=== PATIENT | female | born 1950 | race Caucasian/White ===

== ENCOUNTER → 2017-10-26 13:24 | Outpatient (CLI) | payer MEDICARE, OTHER, SELFPAY ==
[2017-10-26 15:45] LABS: Absolute Lymphocyte Count 2.33 X10^3/ul (0.83-4.51); Absolute Neutrophil Count 5.1 X10^3/uL (2.0-7.7); Basophil# 0.05 X10^3/uL; Basophil% 0.6 % (0-1); Eosinophil# 0.13 X10^3/uL; Eosinophils% 1.6 % (0-5); Hematocrit 37.1 % (37-47); Hemoglobin 11.7 g/dl (12.0-15.0); Lymphocyte # 2.33 X10^3/ul (4.0); Lymphocyte % 28.5 % (19-41); Mean Corp Hgb Conc 31.5 g/gl (32-36); Mean Corpuscular Hgb 30.5 pg (27.0-32.0); Mean Corpuscular Volume 96.9 fL (81-99); Mean Platelet Vol. 9.3 fl (6.2-12.0); Monocyte% 6.1 % (0-10); Neutrophil % 62.5 % (47-70); Platelet Count 227 K/mm3 (150-450); RBC Distribution Width CV 14.7 % (11.6-14.6); RBC Distribution Width SD 51.9 fl (35.1-43.9); Red Blood Count 3.83 M/mm3 (4.2-5.4); White Blood Count 8.2 K/mm3 (4.4-11.0)
[2017-10-26 15:47] LABS: Scan Indicated on CBC? Y/N NO
[2017-10-26 16:25] LABS: ALB/GLOB Ratio 0.8 RATIO (0.9-2.4); AST(SGOT) 42 U/L (15-37); Alanine Aminotransfer ALT/SGPT 47 U/L (13-56); Albumin, Serum 3.3 g/dL (3.2-5.0); Alkaline Phosphatase 59 U/L (45-117); Anion Gap 9 (5-15); BUN 20 mg/dL (7-18); BUN/Creat Ratio 27.8 RATIO (10-20); Calcium,Total 9.3 mg/dL (8.5-10.1); Chloride 102 mmol/L (98-107); Creatinine, Serum 0.72 mg/dL (0.55-1.02); EST Glomerular Filtration Rate 86 mL/min (>60); Est Glom Filt Rate - Afr Amer 104 mL/min (>60); Glucose 157 mg/dL (70-110); Potassium 3.8 mmol/L (3.5-5.1); Protein, Total 7.3 g/dL (6.4-8.2); Sodium Level 139 mmol/L (136-145); Thyroid Stim Hormone (TSH) 1.83 uIU/mL (0.358-3.74)
[2017-10-27 07:47] LABS: Hep C Antibodies 0.1 s/co ratio (0.0-0.9)
[2017-10-27 10:05] LABS: Vitamin D,25 Hydroxy 25.6 ng/mL (19.95-100.01)
== END ==
PROVIDERS: Family Provider Family Medicine Geriatric Medicine; PCP Family Medicine Geriatric Medicine; Visit Provider Family Medicine Geriatric Medicine
DX: E11.9 Type 2 diabetes mellitus without complications (principal); E55.9 Vitamin D deficiency, unspecified; I10 Essential (primary) hypertension; Z13.89 Encounter for screening for other disorder
CPT/HCPCS: 36415; 80053; 82306; 84443; 85027; 86803

== ENCOUNTER → 2017-12-30 15:38 | Outpatient (CLI) | payer MEDICARE, OTHER, SELFPAY | PROVIDERS: Family Provider Family Medicine Geriatric Medicine; PCP Family Medicine Geriatric Medicine; Visit Provider Family Medicine Geriatric Medicine | DX: R68.83 Chills (without fever) (principal) | CPT/HCPCS: 87633 ==

== ENCOUNTER → 2018-04-05 14:02 | Outpatient (CLI) | payer MEDICARE, OTHER, SELFPAY ==
[2018-04-05 17:40] LABS: ALB/GLOB Ratio 0.9 RATIO (0.9-2.4); AST(SGOT) 32 U/L (15-37); Alanine Aminotransfer ALT/SGPT 33 U/L (13-56); Albumin, Serum 3.4 g/dL (3.2-5.0); Alkaline Phosphatase 58 U/L (45-117); Anion Gap 12 (5-15); BUN 20 mg/dL (7-18); BUN/Creat Ratio 24.7 RATIO (10-20); Calcium,Total 9.4 mg/dL (8.5-10.1); Chloride 108 mmol/L (98-107); Creatinine, Serum 0.81 mg/dL (0.55-1.02); EST Glomerular Filtration Rate 75 mL/min (>60); Est Glom Filt Rate - Afr Amer 90 mL/min (>60); Globulin 3.8 g/dL (2.2-4.2); Glucose 100 mg/dL (74-106); Potassium 4.6 mmol/L (3.5-5.1); Protein, Total 7.2 g/dL (6.4-8.2); Sodium Level 146 mmol/L (136-145); Thyroid Stim Hormone (TSH) 1.35 uIU/mL (0.358-3.74)
[2018-04-05 18:41] LABS: Absolute Neutrophil Count 4.9 X10^3/uL (2.0-7.7); Basophil# 0.03 X10^3/uL; Basophil% 0.4 % (0-1); Eosinophil# 0.12 X10^3/uL; Eosinophils% 1.5 % (0-5); Hemoglobin 11.8 g/dl (12.0-15.0); Lymphocyte % 28.5 % (19-41); Mean Corp Hgb Conc 31.9 g/gl (32-36); Mean Corpuscular Hgb 31.4 pg (27.0-32.0); Mean Corpuscular Volume 98.4 fL (81-99); Mean Platelet Vol. 10.2 fl (6.2-12.0); Monocyte# 0.72 X10^3/uL; Monocyte% 8.9 % (0-10); Neutrophil # 4.86 X10^3/uL (2.7-7.7); Neutrophil % 60.2 % (47-70); Platelet Count 241 K/mm3 (150-450); RBC Distribution Width CV 14.5 % (11.6-14.6); RBC Distribution Width SD 50.5 fl (35.1-43.9); Red Blood Count 3.76 M/mm3 (4.2-5.4); White Blood Count 8.1 K/mm3 (4.4-11.0)
[2018-04-05 19:03] LABS: POSITIVE COUNT NO; POSITIVE DIFFERENTIAL NO; POSITIVE MORPHOLOGY NO
[2018-04-06 08:24] LABS: Vitamin D,25 Hydroxy 29.8 ng/mL (29.95-100.01)
== END ==
PROVIDERS: Family Provider Family Medicine Geriatric Medicine; PCP Family Medicine Geriatric Medicine; Visit Provider Family Medicine Geriatric Medicine
DX: E11.9 Type 2 diabetes mellitus without complications (principal); E55.9 Vitamin D deficiency, unspecified; I10 Essential (primary) hypertension
CPT/HCPCS: 36415; 80053; 82306; 84443; 85025

== ENCOUNTER → 2018-11-10 15:26 | Outpatient (CLI) | payer MEDICARE, OTHER, SELFPAY ==
[2018-11-10 17:02] LABS: Absolute Lymphocyte Count 2.01 X10^3/ul (0.83-4.51); Absolute Neutrophil Count 5.9 X10^3/uL (2.0-7.7); Basophil# 0.04 X10^3/uL; Basophil% 0.5 % (0-1); Eosinophil# 0.09 X10^3/uL; Hemoglobin 11.3 g/dl (12.0-15.0); Lymphocyte # 2.01 X10^3/ul (4.0); Lymphocyte % 23.1 % (19-41); Mean Corp Hgb Conc 31.4 g/gl (32-36); Mean Corpuscular Hgb 30.2 pg (27.0-32.0); Mean Corpuscular Volume 96.3 fL (81-99); Mean Platelet Vol. 9.4 fl (6.2-12.0); Monocyte# 0.62 X10^3/uL; Monocyte% 7.1 % (0-10); Platelet Count 232 K/mm3 (150-450); RBC Distribution Width CV 15.4 % (11.6-14.6); RBC Distribution Width SD 53.8 fl (35.1-43.9); Red Blood Count 3.74 M/mm3 (4.2-5.4); White Blood Count 8.7 K/mm3 (4.4-11.0)
[2018-11-10 17:03] LABS: POSITIVE COUNT NO; POSITIVE DIFFERENTIAL NO; POSITIVE MORPHOLOGY NO
[2018-11-10 17:14] LABS: Vitamin D,25 Hydroxy 35.3 ng/mL (29.95-100.01)
[2018-11-10 17:36] LABS: ALB/GLOB Ratio 0.9 RATIO (0.9-2.4); AST(SGOT) 24 U/L (15-37); Alanine Aminotransfer ALT/SGPT 28 U/L (13-56); Albumin, Serum 3.5 g/dL (3.2-5.0); Alkaline Phosphatase 63 U/L (45-117); Anion Gap 10 (5-15); BUN 21 mg/dL (7-18); BUN/Creat Ratio 25.6 RATIO (10-20); Calcium,Total 9.1 mg/dL (8.5-10.1); Chloride 106 mmol/L (98-107); Creatinine, Serum 0.82 mg/dL (0.55-1.02); EST Glomerular Filtration Rate 73 mL/min (>60); Est Glom Filt Rate - Afr Amer 89 mL/min (>60); Globulin 3.9 g/dL (2.2-4.2); Glucose 100 mg/dL (74-106); Potassium 4.5 mmol/L (3.5-5.1); Protein, Total 7.4 g/dL (6.4-8.2); Sodium Level 144 mmol/L (136-145); Thyroid Stim Hormone (TSH) 1.98 uIU/mL (0.358-3.74)
== END ==
PROVIDERS: Family Provider Family Medicine Geriatric Medicine; PCP Family Medicine Geriatric Medicine; Visit Provider Family Medicine Geriatric Medicine
DX: E55.9 Vitamin D deficiency, unspecified (principal); I10 Essential (primary) hypertension
CPT/HCPCS: 36415; 80053; 82306; 84443; 85025

== ENCOUNTER → 2019-02-14 | Outpatient (CLI) | payer MEDICARE, OTHER, SELFPAY | END | disposition home or self-care (01) | LOC: PSN 14:35 | PROVIDERS: Family Provider Family Medicine Geriatric Medicine; PCP Family Medicine Geriatric Medicine; Referring Provider Family Medicine Geriatric Medicine; Visit Provider Family Medicine Geriatric Medicine | DX: R68.83 Chills (without fever) (principal) | CPT/HCPCS: 87633 ==

== ENCOUNTER → 2019-05-11 | Outpatient (CLI) | payer MEDICARE, OTHER, SELFPAY ==
[2019-05-11 16:51] LABS: Absolute Lymphocyte Count 2.24 X10^3/uL (0.83-4.51); Absolute Neutrophil Count 6.5 X10^3/uL (2.0-7.7); Basophil# 0.05 X10^3/uL; Basophil% 0.5 % (0-1); Eosinophil# 0.23 X10^3/uL; Eosinophils% 2.4 % (0-5); Hematocrit 34.3 % (37-47); Hemoglobin 10.8 g/dL (12.0-15.0); Lymphocyte # 2.24 X10^3/ul (4.0); Lymphocyte % 23.2 % (19-41); Mean Corp Hgb Conc 31.5 g/dL (32-36); Mean Corpuscular Hgb 30.8 pg (27.0-32.0); Mean Corpuscular Volume 97.7 fL (81-99); Mean Platelet Vol. 9.5 fl (6.2-12.0); Monocyte# 0.59 X10^3/uL; Monocyte% 6.1 % (0-10); NRBC Flagged by Analyzer 0 % (0-5); Neutrophil % 67.2 % (47-70); Platelet Count 235 K/mm3 (150-450); RBC Distribution Width CV 14.2 % (11.6-14.6); RBC Distribution Width SD 51.4 fl (35.1-43.9); Red Blood Count 3.51 M/mm3 (4.2-5.4); White Blood Count 9.7 K/mm3 (4.4-11.0)
[2019-05-11 17:13] LABS: ALB/GLOB Ratio 0.8 RATIO (0.9-2.4); AST(SGOT) 24 U/L (15-37); Alanine Aminotransfer ALT/SGPT 29 U/L (13-56); Albumin, Serum 3.4 g/dL (3.2-5.0); Alkaline Phosphatase 62 U/L (45-117); Anion Gap 6 (5-15); BUN 20 mg/dL (7-18); BUN/Creat Ratio 21.5 RATIO (10-20); Calcium,Total 8.8 mg/dL (8.5-10.1); Chloride 106 mmol/L (98-107); Creatinine, Serum 0.93 mg/dL (0.55-1.02); EST Glomerular Filtration Rate 63 mL/min (>60); Est Glom Filt Rate - Afr Amer 77 mL/min (>60); Glucose 173 mg/dL (74-106); Potassium 4.2 mmol/L (3.5-5.1); Protein, Total 7.4 g/dL (6.4-8.2); Sodium Level 140 mmol/L (136-145); Thyroid Stim Hormone (TSH) 1.58 uIU/mL (0.358-3.74)
== END | disposition home or self-care (01) ==
LOC: POLAB3 15:04
PROVIDERS: Family Provider Family Medicine Geriatric Medicine; PCP Family Medicine Geriatric Medicine; Visit Provider Family Medicine Geriatric Medicine
DX: E11.9 Type 2 diabetes mellitus without complications (principal); E55.9 Vitamin D deficiency, unspecified; I10 Essential (primary) hypertension
CPT/HCPCS: 36415; 80053; 82306; 84443; 85025

== ENCOUNTER → 2019-12-14 16:14 | Outpatient (CLI) | payer MEDICARE, OTHER, SELFPAY ==
[2019-12-14 16:47] LABS: Absolute Lymphocyte Count 2.01 X10^3/uL (0.83-4.51); Absolute Neutrophil Count 6.5 X10^3/uL (2.0-7.7); Basophil# 0.05 X10^3/uL; Basophil% 0.5 % (0-1); Eosinophil# 0.27 X10^3/uL; Eosinophils% 2.8 % (0-5); Hematocrit 35.8 % (37-47); Hemoglobin 11.3 g/dL (12.0-15.0); Lymphocyte # 2.01 X10^3/ul (4.0); Mean Corp Hgb Conc 31.6 g/dL (32-36); Mean Corpuscular Hgb 30.2 pg (27.0-32.0); Mean Corpuscular Volume 95.7 fL (81-99); Mean Platelet Vol. 9.3 fl (6.2-12.0); Monocyte# 0.67 X10^3/uL; NRBC Flagged by Analyzer 0 % (0-5); Neutrophil # 6.48 X10^3/uL (2.7-7.7); Platelet Count 273 K/mm3 (150-450); RBC Distribution Width CV 13.9 % (11.6-14.6); RBC Distribution Width SD 48.3 fl (35.1-43.9); Red Blood Count 3.74 M/mm3 (4.2-5.4); White Blood Count 9.6 K/mm3 (4.4-11.0)
[2019-12-14 18:02] LABS: ALB/GLOB Ratio 0.7 RATIO (0.9-2.4); AST(SGOT) 30 U/L (15-37); Alanine Aminotransfer ALT/SGPT 26 U/L (13-56); Albumin, Serum 3.4 g/dL (3.2-5.0); Alkaline Phosphatase 71 U/L (45-117); Anion Gap 6 (5-15); BUN 25 mg/dL (7-18); BUN/Creat Ratio 28.8 RATIO (10-20); Calcium,Total 9.8 mg/dL (8.5-10.1); Chloride 103 mmol/L (98-107); Creatinine, Serum 0.87 mg/dL (0.55-1.02); EST Glomerular Filtration Rate 69 mL/min (>60); Est Glom Filt Rate - Afr Amer 83 mL/min (>60); Globulin 4.7 g/dL (2.2-4.2); Glucose 106 mg/dL (74-106); Potassium 4.2 mmol/L (3.5-5.1); Protein, Total 8.1 g/dL (6.4-8.2); Sodium Level 139 mmol/L (136-145); Thyroid Stim Hormone (TSH) 2.28 uIU/mL (0.358-3.74)
[2019-12-14 18:21] LABS: Vitamin D,25 Hydroxy 43.6 ng/mL
== END ==
PROVIDERS: PCP Family Medicine Geriatric Medicine; Visit Provider Family Medicine Geriatric Medicine
DX: E55.9 Vitamin D deficiency, unspecified (principal); I10 Essential (primary) hypertension
CPT/HCPCS: 36415; 80053; 82306; 84443; 85025

== ENCOUNTER 2020-03-28 20:35 | Emergency (ER) | payer MEDICARE, OTHER, SELFPAY ==
[2020-03-28 20:37] VITALS: BP 154/83; PULSE 118; RESP 18; TEMP 38.3; O2SAT 99; BMI 48.4
--- NOTE | 2020-03-28 21:03 | ED.DCSUM_ITS ---
History of Present Illness Chief Complaint: Lower Extremity Injury Informant: Patient Onset: Today Narrative: Worsening pain left foot today while at therapy. States had injury to her foot years ago when the horse stepped on it. States been having on-and-off pain for the past year however worse today. No new trauma. She ambulates with a walker. Patient therapy for neck and elbow pain. She is on gabapentin and Flexeril. She is found to have a fever in triage of 101. She denies feeling feverish having chills or sweats. Denies cough. Denies any vomiting or diarrhea. Denies any urinary symptoms. Denies any sick contacts, denies headache, loss of taste or smell. Denies any rashes. Reports would like Toradol to help with symptoms. She has tolerated this in the past. She has no gastric ulcer history or kidney injury history. Prior similar symptoms: Yes Past Medical History - Allergies and Home Meds Allergies/Adverse Reactions: Allergies cephalexin monohydrate [From Keflex] Allergy (Verified 03/28/20 20:43) Swelling ibuprofen Allergy (Verified 03/28/20 20:43) Swelling STATES CAN TAKE LOW DOSES ONLY oxaprozin [From Daypro] Allergy (Verified 03/28/20 20:43) Swelling tramadol HCl [From Ultram] Allergy (Verified 03/28/20 20:43) Swelling celecoxib [From Celebrex] Adverse Reaction (Verified 03/28/20 20:43) Other DIZZY AND HURTS AROUND MY LIVER Primary Care Physician: Corby Heller Chi, MD [Primary Care Provider] - Past Medical History: - - Hypothyroid, diabetes, hyperlipidemia Smoking Status: Never smoker Review of Systems General: Denies: Chills, Fever, Sweats Eyes: Denies: Visual changes - bilaterally, Diplopia ENT: Denies: Rhinorrhea, Sore throat Cardiovascular: Denies: Chest pain, Palpitations Respiratory: Denies: Dyspnea, Cough, Dyspnea on exertion Gastrointestinal: Denies: Abdominal pain, Nausea, Vomiting, Diarrhea, Melena, Hematochezia Genitourinary: Denies: Dysuria, Hematuria, Frequency Musculoskeletal: Reports: Arthralgias. Denies: Back pain, Extremity Pain Skin: Denies: Rash, Wounds Neurological: Denies: Headache, Weakness, Numbness Physical Exam Vital Signs/Narrative: Vital Signs Temp Pulse Resp BP Pulse Ox 03/28/20 20:37 101.0 F H 118 H 18 154/83 H 99 Inital Vital Signs reviewed: Yes General: Well nourished, Well developed, No Acute Distress Head: Normocephalic, Atraumatic Eyes: Perrl, EOMI ENT: Moist mucous membranes, No rhinorrhea Neck: Supple, Nontender Cardiovascular: Regular rate, Regular rhythm, No murmurs, Tachycardia Respiratory: No distress, CTA bilaterally, Chest nontender Abdomen: Soft, Nontender, Nondistended, Normal bowel sounds Back: Nontender, Normal Inspection Extremities: No edema, - - Left lower extremity, there is tenderness at the dorsal midfoot along with the plantar aspect of the foot. Skin is intact. There is no erythema. No deformities. Skin: Normal color, No rash Neurological: Alert, Oriented x3, Cranial nerves II-XII grossly intact, Normal Strength, Normal Sensation Psychological: Normal affect, Normal Mood Diagnostic/Tx/Re-eval Clinical Impression(s) from Imaging Studies Foot X-Ray 03/28/20 21:20 IMPRESSION: Negative for acute fracture or dislocation. Plantar spur of the calcaneus. Degenerative arthrosis of the talonavicular, navicular cuneiform, and intercuneiform and tarsometatarsal joints. Electronically Signed: Jaclyn Omalley MD at 21:59 EDT , Service support , - Medical Decision Making Patient had temp of 101 orally in the department. She denies any symptoms. Blood pressure stable she is tachycardic however she states she runs on the higher side. She denies any cough urine symptoms or any rashes. There is no rashes on eval, there is no signs of infection of the foot. She has no clinical COVID symptoms. Urine was sent for evaluation should be given Toradol as requested, she did not want any opiates due to causing constipation. Will check a foot x-ray. Foot x-ray negative. Urine negative for infection. She states she did not get improvement with the Toradol agreed with and oxycodone. She be given a short pr escription to use, she will use stool softeners. With her fever unclear origin at this time. She is nontoxic. Heart rate was improving. Discussed strict signs and symptoms to return otherwise follow-up with her PCP. All questions were answered. ED Disposition - Plan for ED Patient: Disposition: Home or Assisted Living Diagnosis: Left foot pain, Fever Instructions: ED FUO Adult Prescriptions: Oxycodone HCl/Acetaminophen [Percocet 5/325] 1 tablet PO Q6H PRN PRN 3 Days #12 tablet PRN Reason: Pain Transmission Status: Sent to [facility] Referrals: Corby Heller Chi, MD [Primary Care Provider] - 3-5 Days
[2020-03-28 21:18] VITALS: BP 150/78; PULSE 115; RESP 15; O2SAT 97
--- NOTE | 2020-03-28 21:20 | RAD_ITS ---
STUDY: X-RAY - LEFT FOOT CLINICAL: Female, 70 years old. left foot pain. no recent injury. injury years ago from horse stepping on foot. TECHNIQUE: 3 view(s) of the foot. COMPARISON: None. FINDINGS: Large plantar spur of the calcaneus and a small calcification in the plantar aponeurosis. Normal talus and tarsals. Normal subtalar joint. Degenerative changes in the talonavicular joint, talonavicular cuneiform articulation and generalized narrowing of the anterior cuneiform and tarsometatarsal joints. Normal metatarsi. Normal metatarsophalangeal joint of the great toe. Normal tibial and fibular sesamoid bones. Normal interphalangeal joint of the great toe. Normal phalanges of the great toe. Normal second through fifth metatarsophalangeal joints. Normal interphalangeal joints and phalanges of the lesser toes. The soft tissue structures are unremarkable. RAD/Foot min 3 Views IMPRESSION: Negative for acute fracture or dislocation. Plantar spur of the calcaneus. Degenerative arthrosis of the talonavicular, navicular cuneiform, and intercuneiform and tarsometatarsal joints. Electronically Signed: Jaclyn Omalley MD at 21:59 EDT , Service support ,
[2020-03-28] MEDS: Ketorolac 60 MG/2 ML Vial IM (21:23)
[2020-03-28 22:06] LABS: Bacteria 0 SEEN /hpf (None Seen); Mucous, Urine 0 SEEN /hpf (<or=2+); Red Blood Cells-Urine 0 SEEN /hpf (0-5); White Blood Cells 0 SEEN /hpf (0-5)
[2020-03-28 22:12] LABS: Color, Urine Yellow (Yellow); Glucose, Dipstick Normal (Normal); Ketone-Dipstick 5 mg/dl (Negative); Leukocyte Esterase-Dipstick Negative /ul (Negative); Nitrite-Dipstick Negative (Negative); Occult Blood-Urine Negative /ul (Negative); Protein-Dipstick 100 mg/dl (Negative); Urine Bilirubin Dipstick Negative (Negative); Urine Clarity Sl. Cloudy (Clear); Urine Urobilinogen Normal (Normal)
[2020-03-28 22:18] LABS: Squamous Epithelial Cells - UA 0-5 SEEN /hpf (5-10)
[2020-03-28 22:46] VITALS: BP 150/91; PULSE 109; RESP 18; O2SAT 95
[2020-03-28] MEDS: oxyCODONE 5 MG Tablet PO (22:48)
== END 2020-03-28 22:50 | disposition home or self-care (01) ==
PROVIDERS: Emergency Provider Emergency Medicine; PCP Family Medicine Geriatric Medicine
DX: M79.672 Pain in left foot (principal); R50.9 Fever, unspecified; E03.9 Hypothyroidism, unspecified; E11.9 Type 2 diabetes mellitus without complications; E78.5 Hyperlipidemia, unspecified; Z79.84 Long term (current) use of oral hypoglycemic drugs; Z79.899 Other long term (current) drug therapy
CPT/HCPCS: 73630; 81001; 87086; 96372; 99284; J7030; A4216

== ENCOUNTER → 2020-04-18 14:54 | Outpatient (CLI) | payer MEDICARE, OTHER, SELFPAY ==
[2020-03-28 20:37] VITALS: BMI 48.4
[2020-04-18 15:56] LABS: Absolute Lymphocyte Count 2.27 X10^3/uL (0.83-4.51); Absolute Neutrophil Count 7.4 X10^3/uL (2.0-7.7); Basophil# 0.05 X10^3/uL; Basophil% 0.5 % (0-1); Eosinophil# 0.21 X10^3/uL; Hematocrit 37.6 % (37-47); Hemoglobin 11.6 g/dL (12.0-15.0); Lymphocyte # 2.27 X10^3/ul (4.0); Lymphocyte % 21.3 % (19-41); Mean Corp Hgb Conc 30.9 g/dL (32-36); Mean Corpuscular Hgb 29.5 pg (27.0-32.0); Mean Corpuscular Volume 95.7 fL (81-99); Mean Platelet Vol. 10.4 fl (6.2-12.0); Monocyte# 0.66 X10^3/uL; Monocyte% 6.2 % (0-10); NRBC Flagged by Analyzer 0 % (0-5); Neutrophil % 69.3 % (47-70); Platelet Count 231 K/mm3 (150-450); RBC Distribution Width CV 15.1 % (11.6-14.6); RBC Distribution Width SD 52.9 fl (35.1-43.9); Red Blood Count 3.93 M/mm3 (4.2-5.4); White Blood Count 10.7 K/mm3 (4.4-11.0)
[2020-04-18 16:07] LABS: Vitamin D,25 Hydroxy 44.4 ng/mL
[2020-04-18 16:11] LABS: ALB/GLOB Ratio 0.8 RATIO (0.9-2.4); AST(SGOT) 32 U/L (15-37); Alanine Aminotransfer ALT/SGPT 31 U/L (13-56); Albumin, Serum 3.3 g/dL (3.2-5.0); Alkaline Phosphatase 72 U/L (45-117); Anion Gap 8 (5-15); BUN 23 mg/dL (7-18); BUN/Creat Ratio 25.2 RATIO (10-20); Calcium,Total 9.3 mg/dL (8.5-10.1); Chloride 101 mmol/L (98-107); Creatinine, Serum 0.91 mg/dL (0.55-1.02); EST Glomerular Filtration Rate 65 mL/min (>60); Est Glom Filt Rate - Afr Amer 78 mL/min (>60); Globulin 4.2 g/dL (2.2-4.2); Glucose 188 mg/dL (74-106); Potassium 4.6 mmol/L (3.5-5.1); Protein, Total 7.5 g/dL (6.4-8.2); Sodium Level 136 mmol/L (136-145); Thyroid Stim Hormone (TSH) 1.92 uIU/mL (0.358-3.74)
== END ==
PROVIDERS: PCP Family Medicine Geriatric Medicine; Visit Provider Family Medicine Geriatric Medicine
DX: E11.9 Type 2 diabetes mellitus without complications (principal); E55.9 Vitamin D deficiency, unspecified; I10 Essential (primary) hypertension
CPT/HCPCS: 36415; 80053; 82306; 84443; 85025

== ENCOUNTER → 2020-06-27 15:54 | Outpatient (CLI) | payer MEDICARE, OTHER, SELFPAY ==
[2020-06-27 17:04] LABS: Absolute Lymphocyte Count 2.38 X10^3/uL (0.83-4.51); Absolute Neutrophil Count 6.5 X10^3/uL (2.0-7.7); Basophil# 0.05 X10^3/uL; Basophil% 0.5 % (0-1); Eosinophil# 0.18 X10^3/uL; Eosinophils% 1.8 % (0-5); Hematocrit 35.3 % (37-47); Hemoglobin 11.1 g/dL (12.0-15.0); Lymphocyte # 2.38 X10^3/ul (4.0); Mean Corp Hgb Conc 31.4 g/dL (32-36); Mean Corpuscular Hgb 30.2 pg (27.0-32.0); Mean Corpuscular Volume 95.9 fL (81-99); Mean Platelet Vol. 9.9 fl (6.2-12.0); Monocyte# 0.76 X10^3/uL; Monocyte% 7.7 % (0-10); NRBC Flagged by Analyzer 0 % (0-5); Neutrophil % 65.4 % (47-70); Platelet Count 236 K/mm3 (150-450); RBC Distribution Width CV 15.8 % (11.6-14.6); RBC Distribution Width SD 55.5 fl (35.1-43.9); Red Blood Count 3.68 M/mm3 (4.2-5.4); White Blood Count 9.9 K/mm3 (4.4-11.0)
[2020-06-27 17:46] LABS: Vitamin D,25 Hydroxy 40.4 ng/mL
[2020-06-27 17:56] LABS: ALB/GLOB Ratio 0.9 RATIO (0.9-2.4); AST(SGOT) 38 U/L (15-37); Alanine Aminotransfer ALT/SGPT 33 U/L (13-56); Albumin, Serum 3.2 g/dL (3.2-5.0); Alkaline Phosphatase 61 U/L (45-117); Anion Gap 7 (5-15); BUN 32 mg/dL (7-18); BUN/Creat Ratio 33.2 RATIO (10-20); Calcium,Total 9.5 mg/dL (8.5-10.1); Chloride 105 mmol/L (98-107); Creatinine, Serum 0.96 mg/dL (0.55-1.02); EST Glomerular Filtration Rate 61 mL/min (>60); Est Glom Filt Rate - Afr Amer 73 mL/min (>60); Globulin 3.7 g/dL (2.2-4.2); Glucose 166 mg/dL (74-106); Potassium 3.9 mmol/L (3.5-5.1); Protein, Total 6.9 g/dL (6.4-8.2); Sodium Level 141 mmol/L (136-145); Thyroid Stim Hormone (TSH) 3.01 uIU/mL (0.358-3.74)
== END ==
PROVIDERS: PCP Family Medicine Geriatric Medicine; Referring Provider Family Medicine Geriatric Medicine; Visit Provider Family Medicine Geriatric Medicine
DX: E11.9 Type 2 diabetes mellitus without complications (principal); E55.9 Vitamin D deficiency, unspecified; I10 Essential (primary) hypertension
CPT/HCPCS: 36415; 80053; 82306; 84443; 85025

== ENCOUNTER → 2020-10-22 14:35 | Outpatient (CLI) | payer MEDICARE, OTHER, SELFPAY ==
[2020-10-22 15:47] LABS: Absolute Lymphocyte Count 2.11 X10^3/uL (0.83-4.51); Absolute Neutrophil Count 5.2 X10^3/uL (2.0-7.7); Basophil# 0.05 X10^3/uL; Basophil% 0.6 % (0-1); Eosinophil# 0.15 X10^3/uL; Eosinophils% 1.8 % (0-5); Hematocrit 35.4 % (37-47); Hemoglobin 11.3 g/dL (12.0-15.0); Lymphocyte # 2.11 X10^3/ul (4.0); Lymphocyte % 25.3 % (19-41); Mean Corp Hgb Conc 31.9 g/dL (32-36); Mean Corpuscular Hgb 30.1 pg (27.0-32.0); Mean Corpuscular Volume 94.1 fL (81-99); Monocyte# 0.74 X10^3/uL; Monocyte% 8.9 % (0-10); NRBC Flagged by Analyzer 0 % (0-5); Neutrophil # 5.22 X10^3/uL (2.7-7.7); Neutrophil % 62.6 % (47-70); Platelet Count 246 K/mm3 (150-450); RBC Distribution Width CV 14.6 % (11.6-14.6); RBC Distribution Width SD 50.4 fl (35.1-43.9); Red Blood Count 3.76 M/mm3 (4.2-5.4); White Blood Count 8.3 K/mm3 (4.4-11.0)
[2020-10-22 16:08] LABS: Vitamin D,25 Hydroxy 39.8 ng/mL
[2020-10-22 16:17] LABS: ALB/GLOB Ratio 0.8 RATIO (0.9-2.4); AST(SGOT) 31 U/L (15-37); Alanine Aminotransfer ALT/SGPT 29 U/L (13-56); Albumin, Serum 3.3 g/dL (3.2-5.0); Alkaline Phosphatase 68 U/L (45-117); Anion Gap 6 (5-15); BUN 23 mg/dL (7-18); BUN/Creat Ratio 27.6 RATIO (10-20); Calcium,Total 9.4 mg/dL (8.5-10.1); Chloride 104 mmol/L (98-107); Creatinine, Serum 0.83 mg/dL (0.55-1.02); EST Glomerular Filtration Rate 72 mL/min (>60); Est Glom Filt Rate - Afr Amer 87 mL/min (>60); Globulin 4.2 g/dL (2.2-4.2); Glucose 137 mg/dL (74-106); Potassium 4.7 mmol/L (3.5-5.1); Protein, Total 7.5 g/dL (6.4-8.2); Sodium Level 138 mmol/L (136-145); Thyroid Stim Hormone (TSH) 2.14 uIU/mL (0.358-3.74)
== END ==
PROVIDERS: PCP Family Medicine Geriatric Medicine; Visit Provider Family Medicine Geriatric Medicine
DX: I10 Essential (primary) hypertension (principal); E55.9 Vitamin D deficiency, unspecified; E11.9 Type 2 diabetes mellitus without complications
CPT/HCPCS: 36415; 80053; 82306; 84443; 85025

== ENCOUNTER → 2021-01-07 11:35 | Outpatient (CLI) | payer MEDICARE, OTHER, SELFPAY ==
[2021-01-07 12:09] LABS: Absolute Lymphocyte Count 2.06 X10^3/uL (0.83-4.51); Basophil# 0.07 X10^3/uL; Basophil% 0.8 % (0-1); Eosinophil# 0.55 X10^3/uL; Eosinophils% 6.6 % (0-5); Hematocrit 35.6 % (37-47); Lymphocyte # 2.06 X10^3/ul (4.0); Lymphocyte % 24.6 % (19-41); Mean Corp Hgb Conc 30.9 g/dL (32-36); Mean Corpuscular Hgb 30.2 pg (27.0-32.0); Mean Corpuscular Volume 97.8 fL (81-99); Mean Platelet Vol. 9.7 fl (6.2-12.0); Monocyte# 0.59 X10^3/uL; NRBC Flagged by Analyzer 0 % (0-5); Neutrophil # 5.04 X10^3/uL (2.7-7.7); Platelet Count 240 K/mm3 (150-450); Red Blood Count 3.64 M/mm3 (4.2-5.4); White Blood Count 8.4 K/mm3 (4.4-11.0)
[2021-01-07 12:20] LABS: Vitamin D,25 Hydroxy 31.7 ng/mL
[2021-01-07 12:28] LABS: ALB/GLOB Ratio 0.8 RATIO (0.9-2.4); AST(SGOT) 20 U/L (15-37); Alanine Aminotransfer ALT/SGPT 23 U/L (13-56); Albumin, Serum 3.3 g/dL (3.2-5.0); Alkaline Phosphatase 73 U/L (45-117); Anion Gap 7 (5-15); BUN 29 mg/dL (7-18); BUN/Creat Ratio 32.3 RATIO (10-20); Calcium,Total 9.3 mg/dL (8.5-10.1); Chloride 103 mmol/L (98-107); EST Glomerular Filtration Rate 66 mL/min (>60); Est Glom Filt Rate - Afr Amer 79 mL/min (>60); Globulin 4.2 g/dL (2.2-4.2); Glucose 229 mg/dL (74-106); Protein, Total 7.5 g/dL (6.4-8.2); Sodium Level 138 mmol/L (136-145); Thyroid Stim Hormone (TSH) 3.55 uIU/mL (0.358-3.74)
== END ==
PROVIDERS: PCP Family Medicine Geriatric Medicine; Visit Provider Family Medicine Geriatric Medicine
DX: E11.9 Type 2 diabetes mellitus without complications (principal); E55.9 Vitamin D deficiency, unspecified; I10 Essential (primary) hypertension
CPT/HCPCS: 36415; 80053; 82306; 84443; 85025

== ENCOUNTER → 2021-01-17 16:49 | Outpatient (CLI) | payer MEDICARE, OTHER, SELFPAY | PROVIDERS: PCP Family Medicine Geriatric Medicine; Referring Provider Family Medicine Geriatric Medicine; Visit Provider Family Medicine Geriatric Medicine | DX: R05 Cough (principal) | CPT/HCPCS: 87635; C9803; U0002 ==

== ENCOUNTER → 2021-04-08 13:01 | Outpatient (CLI) | payer MEDICARE, OTHER, SELFPAY ==
[2021-04-08 17:14] LABS: Absolute Lymphocyte Count 1.62 X10^3/uL (0.83-4.51); Absolute Neutrophil Count 5.7 X10^3/uL (2.0-7.7); Basophil# 0.06 X10^3/uL; Basophil% 0.7 % (0-1); Eosinophils% 2.4 % (0-5); Hematocrit 35.5 % (37-47); Hemoglobin 10.9 g/dL (12.0-15.0); Lymphocyte # 1.62 X10^3/ul (0.83-4.51); Lymphocyte % 19.7 % (19-41); Mean Corp Hgb Conc 30.7 g/dL (32-36); Mean Corpuscular Hgb 29.3 pg (27.0-32.0); Mean Corpuscular Volume 95.4 fL (81-99); Mean Platelet Vol. 9.9 fl (6.2-12.0); Monocyte# 0.57 X10^3/uL; Monocyte% 6.9 % (0-10); NRBC Flagged by Analyzer 0 % (0-5); Neutrophil # 5.73 X10^3/uL (2.7-7.7); Neutrophil % 69.7 % (47-70); Platelet Count 221 K/mm3 (150-450); RBC Distribution Width CV 14.7 % (11.6-14.6); RBC Distribution Width SD 51.3 fl (35.1-43.9); Red Blood Count 3.72 M/mm3 (4.2-5.4); White Blood Count 8.2 K/mm3 (4.4-11.0)
[2021-04-08 17:38] LABS: Vitamin D,25 Hydroxy 31.6 ng/mL
[2021-04-08 17:41] LABS: ALB/GLOB Ratio 0.7 RATIO (0.9-2.4); AST(SGOT) 27 U/L (15-37); Alanine Aminotransfer ALT/SGPT 26 U/L (13-56); Albumin, Serum 3.2 g/dL (3.2-5.0); Alkaline Phosphatase 83 U/L (45-117); Anion Gap 7 (5-15); BUN 27 mg/dL (7-18); BUN/Creat Ratio 27.8 RATIO (10-20); Calcium,Total 9.6 mg/dL (8.5-10.1); Chloride 103 mmol/L (98-107); Creatinine, Serum 0.97 mg/dL (0.55-1.02); EST Glomerular Filtration Rate 60 mL/min (>60); Est Glom Filt Rate - Afr Amer 72 mL/min (>60); Globulin 4.4 g/dL (2.2-4.2); Glucose 243 mg/dL (74-106); Potassium 4.5 mmol/L (3.5-5.1); Protein, Total 7.6 g/dL (6.4-8.2); Sodium Level 140 mmol/L (136-145); Thyroid Stim Hormone (TSH) 2.41 uIU/mL (0.358-3.74)
== END ==
PROVIDERS: PCP Family Medicine Geriatric Medicine; Visit Provider Family Medicine Geriatric Medicine
DX: I10 Essential (primary) hypertension (principal); E55.9 Vitamin D deficiency, unspecified; E11.9 Type 2 diabetes mellitus without complications
CPT/HCPCS: 36415; 80053; 82306; 84443; 85025

== ENCOUNTER 2021-04-26 22:13 | Emergency (ER) | payer MEDICARE, OTHER, SELFPAY ==
--- NOTE | 2021-04-26 00:12 | RAD_ITS ---
STUDY: X-RAY - LEFT FOOT CLINICAL: Female, 71 years old. Acute on chronic pain TECHNIQUE: 3 view(s) of the foot. COMPARISON: None. FINDINGS: There is a plantar calcaneal spur. There is multilevel degenerative arthrosis through the tarsal bones. Normal metatarsi. Normal metatarsophalangeal joint of the great toe. Normal tibial and fibular sesamoid bones. Normal interphalangeal joint of the great toe. Normal phalanges of the great toe. Normal second through fifth metatarsophalangeal joints. There is Hammer toe deformity of the second through fifth toes. Nonspecific soft tissue swelling surrounding the ankle and dorsum of the foot. There is no demonstrated fracture. RAD/Foot min 3 Views IMPRESSION: Multilevel degenerative disease as described. No acute fracture or subluxation. Electronically Signed: Shruthi Linda MD at 0:44 EDT , Service support ,
[2021-04-26 22:17] VITALS: BP 157/60; PULSE 73; RESP 17; TEMP 36.4; O2SAT 97; BMI 49.8
--- NOTE | 2021-04-26 22:49 | EDS_ITS ---
HPI History of Present Illness Chief Complaint: Lower Extremity Injury Informant: patient Narrative Narrative: Patient is a 71-year-old female who presents to the emergency department for acute on chronic exacerbation of her left foot pain. She states that this is been ongoing issue over the past 2 years. She has seen blast furnace helper before in the past for it. She states that she does have known heel spurs. She thinks that she might have plantar fasciitis. Walking aggravates her symptoms. She did try to take an Vicodin for this which did not give her significant relief. It has aggravated over the past 2 to 3 days. She denies any other joint pain. No fevers. She does currently have URI symptoms with some chills. She has been coughing. She states that her daughter has tested positive for Covid. She does want a Covid test. She has been vaccinated already. She denies any significant shortness of breath. She denies any nausea/vomiting. She has had some loose stools. PFSH PFSH Home Medications albuterol sulfate 1 - 2 puff INHALATION Q6H PRN PRN 12/07/16 [History Last Taken Unknown] fluticasone propionate 2 spray NASAL DAILY 12/07/16 [History Last Taken Unknown] citalopram 20 mg DAILY 04/26/21 [History Last Taken Unknown] oxycodone-acetaminophen 1 tab PO Q6H PRN 04/26/21 [History Last Taken Unknown] ropinirole [Requip] 0.5 mg PO QHS 04/26/21 [History Last Taken Unknown] hydrocodone-acetaminophen 1 tab PO Q6H PRN PRN 3 Days #10 tablet 04/27/21 [Rx Last Taken Unknown] Allergy/AdvReac Type Severity Reaction Status Date / Time cephalexin monohydrate Allergy Swelling Verified 04/26/21 22:16 [From Keflex] ibuprofen Allergy Swelling Verified 04/26/21 22:16 oxaprozin [From Daypro] Allergy Swelling Verified 04/26/21 22:16 tramadol HCl [From Ultram] Allergy Swelling Verified 04/26/21 22:16 celecoxib [From Celebrex] AdvReac Other Verified 04/26/21 22:16 Social History Smoking Status: Never smoker ROS ROS ED Constitutional Constitutional ED: Reports chills; Denies fever(s) Eyes Eyes: Denies change in vision ENT ENT ED: Reports rhinorrhea; Denies epistaxis Cardiovascular Cardiovascular: Denies chest pain or palpitations Respiratory/Chest Respiratory/Chest: Reports cough; Denies dyspnea Gastrointestinal Gastrointestinal: Denies abdominal pain, nausea or vomiting Genitourinary Genitourinary ED: Denies dysuria, hematuria or urinary frequency Musculoskeletal Musculoskeletal: Reports arthralgias; Denies back pain or neck pain Integumentary Denies rash Neurologic Neurologic: Denies dizziness, headache(s) or weakness EXAM Physical Exam Const Vital Signs: 04/27/21 01:39 Temperature 98.8 F Temperature Source Temporal Pulse Rate 76 Respiratory Rate 16 Blood Pressure 151/72 H Blood Pressure Mean 98 Pulse Ox 97 Oxygen Delivery Method Room Air Positive well nourished and well developed General Appearance ED: well developed and NAD HEENT Reports normocephalic, head/scalp atraumatic and moist mucous membranes Eyes PERRL and EOMs intact bilaterally Neck supple Chest Wall inspection of chest normal Resp normal respiratory effort and clear to auscultation bilaterally Auscultation: Negative for rales, rhonchi or wheezes Cardio regular rate, regular rhythm and no murmurs GI normal to inspection, nondistended, normoactive bowel sounds and non-tender Palpation: soft; Negative for guarding or rebound tenderness present Extremity normal to inspection Extremity Narrative: Left foot with 2+ DP pulse. Neurovascular intact. No significant tenderness with palpation of entire foot. No obvious deformity. No overlying skin changes. General Extremety ED: Negative for edema or tenderness General Extremity: Negative for edema Neuro oriented x3, CN's II-XII intact bilaterally and no sensory deficits noted Sensorium / Orientation: alert Motor Exam: strength 5/5 throughout Psych mental status grossly normal Skin no rashes or lesions noted MDM MDM MDM Narrative Medical decision making narrative: Patient presents to the [facility] department for acute on chronic left foot pain. This is nontraumatic. On arrival to the ED vital signs within normal limits. She is requesting Covid test because her daughter tested positive and she believes she has bronchitis. Patient has been vaccinated for Covid. Will check an x-ray of the foot, given [place] and obtain a Covid swab at this time. X-ray of the foot did not reveal any acute traumatic findings. There is degenerative changes. Patient's Covid swab did come back positive. She has been satting well on room air. She does qualify for monoclonal antibody treatment and she is given referral for this. At this time she is discharged home in stable condition. Return precautions are reviewed. She understands and is agreeable this plan. All questions answered. Radiography Diagnostic Testing: Radiology Impression Foot X-Ray 04/26/21 00:12 IMPRESSION: Multilevel degenerative disease as described. No acute fracture or subluxation. Electronically Signed: Shruthi Linda MD at 0:44 EDT , Service support , Discharge Plan Triage Chief Complaint: Lower Extremity Injury ED Provider: Juan Dobbins Dx/Rx/DC Orders Clinical Impression: COVID-19, Foot arch pain Instructions: Coronavirus Disease 2019 (COVID-19): Caring for Yourself or Others, ED - COVID Monoclonal AB Infusion ..., ED Plantar Fasciitis Prescriptions: New hydrocodone-acetaminophen [hydrocodone-acetaminophen] 1 TABLET tablet 1 tab PO Q6H PRN PRN (Reason: Pain) 3 Days Qty: 10 RF: 0 No Action fluticasone propionate 1 SPRAY spray,suspension 2 spray NASAL DAILY RF: 0 albuterol sulfate 1 PUFF inhaler 1 - 2 puff Inhalation Q6H PRN PRN (Reason: Asthma) RF: 0 oxycodone-acetaminophen 5-325 mg Tablet 1 tab PO Q6H PRN (Reason: Pain) RF: 0 citalopram 20 mg tablet 20 mg DAILY RF: 0 ropinirole [Requip] 0.5 mg Tablet 0.5 mg PO QHS RF: 0 Other Ambulatory Orders: COVID: Outpatient Monoclonal Antibody Referral (Routine) Location: None Selected Ordered By: Dr. Juan Dobbins Primary Care Provider: Corby Heller Chi Referrals: Corby Heller Chi, MD [Primary Care Provider] - 1 Week Disposition Disposition: Home, Self Care Discharge Date/Time: 04/27/21 03:06
[2021-04-26] MEDS: HYDROcodone Bitartrate/Apap 5/325 Tablet PO (23:08)
[2021-04-27 01:39] VITALS: BP 151/72; PULSE 76; RESP 16; TEMP 37.1; O2SAT 97
== END 2021-04-27 03:06 | disposition home or self-care (01) ==
PROVIDERS: Emergency Provider Emergency Medicine; PCP Family Medicine Geriatric Medicine
DX: U07.1 COVID-19 (principal); M79.672 Pain in left foot; G89.29 Other chronic pain
CPT/HCPCS: 73630; 87426; 99284

== ENCOUNTER 2021-04-29 15:50 | Outpatient (CLI) | payer MEDICARE, OTHER, SELFPAY ==
[2021-04-28 13:19] VITALS: BMI 49.8
[2021-04-29 15:50] VITALS: BP 151/78; PULSE 80; RESP 20; TEMP 37; O2SAT 95
[2021-04-29] MEDS: 0.9% Saline Lock 10 ML Syringe IV ×2 (16:06→16:45)
[2021-04-29 16:08] VITALS: BMI 47.9
[2021-04-29 16:19] VITALS: BP 135/74; PULSE 74; RESP 20; TEMP 37.3; O2SAT 95
[2021-04-29 16:45] VITALS: BP 139/77; PULSE 74; RESP 18; TEMP 37.4; O2SAT 96
[2021-04-29 17:15] VITALS: BP 130/74; PULSE 75; RESP 16; TEMP 36.9; O2SAT 96
[2021-04-29 17:45] VITALS: BP 134/72; PULSE 77; RESP 20; TEMP 37.1; O2SAT 96
== END 2021-04-29 17:52 | disposition home or self-care (01) ==
LOC: ICUOUT 15:50 → ICU 15:51
PROVIDERS: PCP Family Medicine Geriatric Medicine; Referring Provider Nurse Practitioner Acute Care; Visit Provider Nurse Practitioner Acute Care
DX: Z23 Encounter for immunization (principal); U07.1 COVID-19
CPT/HCPCS: M0243; A4216; Q0244

== ENCOUNTER → 2021-05-22 15:29 | Outpatient (CLI) | payer MEDICARE, OTHER, SELFPAY ==
--- NOTE | 2021-05-22 16:40 | RAD_ITS ---
STUDY: X-RAY - ABDOMEN/PELVIS REASON FOR EXAM: Female, 71 years old. ABD PAIN TECHNIQUE: Single AP view of the abdomen / pelvis. COMPARISON: None. FINDINGS: Normal visualized lung bases. There is an unremarkable bowel gas pattern. Large calcific opacities overlying both kidneys consistent with bilateral renal stones. No definite ureteral stone. Normal soft tissue structures. Normal visualized osseous structures. RAD/Abdomen Single View IMPRESSION: Suspect bilateral renal stones. No definite ureteral stone Electronically Signed: Tahir Ferguson MD at 17:11 EDT Tel , Service support ,
[2021-05-22 16:52] LABS: Anion Gap 7 (5-15); BUN 24 mg/dL (7-18); BUN/Creat Ratio 30.2 RATIO (10-20); Calcium,Total 8.9 mg/dL (8.5-10.1); Chloride 103 mmol/L (98-107); EST Glomerular Filtration Rate 75 mL/min (>60); Est Glom Filt Rate - Afr Amer 91 mL/min (>60); Glucose 153 mg/dL (74-106); Potassium 4.3 mmol/L (3.5-5.1); Sodium Level 138 mmol/L (136-145)
[2021-05-22 17:00] LABS: Absolute Lymphocyte Count 1.32 X10^3/uL (0.83-4.51); Absolute Neutrophil Count 5.6 X10^3/uL (2.0-7.7); Basophil# 0.03 X10^3/uL; Basophil% 0.4 % (0-1); Eosinophil# 0.16 X10^3/uL; Eosinophils% 2.1 % (0-5); Hematocrit 36.7 % (37-47); Hemoglobin 11.4 g/dL (12.0-15.0); Lymphocyte # 1.32 X10^3/ul (0.83-4.51); Lymphocyte % 17.2 % (19-41); Mean Corp Hgb Conc 31.1 g/dL (32-36); Mean Corpuscular Hgb 29.8 pg (27.0-32.0); Mean Corpuscular Volume 95.8 fL (81-99); Mean Platelet Vol. 10.4 fl (6.2-12.0); Monocyte% 6.5 % (0-10); NRBC Flagged by Analyzer 0 % (0-5); Neutrophil # 5.62 X10^3/uL (2.7-7.7); Neutrophil % 73.1 % (47-70); Platelet Count 201 K/mm3 (150-450); RBC Distribution Width CV 15.6 % (11.6-14.6); RBC Distribution Width SD 54.9 fl (35.1-43.9); Red Blood Count 3.83 M/mm3 (4.2-5.4); White Blood Count 7.7 K/mm3 (4.4-11.0)
== END ==
PROVIDERS: PCP Family Medicine Geriatric Medicine; Visit Provider Family Medicine Geriatric Medicine
DX: R10.9 Unspecified abdominal pain (principal); N39.0 Urinary tract infection, site not specified
CPT/HCPCS: 36415; 74018; 80048; 85025; 87086

== ENCOUNTER → 2021-06-03 | Outpatient (CLI) | payer MEDICARE, OTHER, SELFPAY | END | disposition home or self-care (01) | LOC: LABSPEC 16:15 | PROVIDERS: PCP Family Medicine Geriatric Medicine; Visit Provider Family Medicine Geriatric Medicine | DX: R19.7 Diarrhea, unspecified (principal) | CPT/HCPCS: 82274; 83630; 87177; 87209; 87493; 87506 ==

== ENCOUNTER → 2021-06-19 10:54 | Outpatient (CLI) | payer MEDICARE, OTHER, SELFPAY ==
--- NOTE | 2021-06-19 11:03 | RAD_ITS ---
INDICATION: SOB EXAMINATION/TECHNIQUE: X-RAY - XR Chest 2 Views COMPARISON: None. FINDINGS: LINES/DEVICES: None. LUNGS: Symmetric normal lung volumes. No airspace opacity or abnormal interstitial pattern. No nodule or mass. No pleural effusion or pneumothorax. MEDIASTINUM AND CARDIOVASCULAR STRUCTURES: Normal size and contour of the cardiomediastinal silhouette. No evidence of pulmonary vascular congestion. BONES AND SOFT TISSUES: Mild lateral curvature mid thoracic spine, convex right. No fracture or focal osseous lesion. Degenerative endplate changes within expected limits for age. RAD/Chest PA and Lateral IMPRESSION: 1. No radiographic evidence of acute cardiopulmonary disease. Electronically Signed: Roberto Beckwith DO at 22:57 EDT Tel , Service support ,
== END ==
PROVIDERS: PCP Family Medicine Geriatric Medicine; Referring Provider Family Medicine Geriatric Medicine; Visit Provider Family Medicine Geriatric Medicine
DX: R06.02 Shortness of breath (principal); R68.83 Chills (without fever)
CPT/HCPCS: 71046; 87635; 87804; 87807; C9803; U0005; U0003

== ENCOUNTER 2021-06-30 03:40 | Emergency (ER) | payer MEDICARE, OTHER, SELFPAY ==
[2021-06-30 03:40] VITALS: BP 139/78; PULSE 89; RESP 20; TEMP 36.2; O2SAT 93; BMI 47.9
--- NOTE | 2021-06-30 03:54 | RAD_ITS ---
STUDY: X-RAY CHEST REASON FOR EXAM: Female, 71 years old patient with cough. TECHNIQUE: Single AP portable view of the chest. COMPARISON: Chest radiograph dated 06/19/2021. FINDINGS: Cardiac monitoring leads are present. The lungs are underexpanded with crowding of bronchovascular markings. There is no demonstrated pleural abnormality. There is mild cardiac enlargement. Normal mediastinum and kim. There is prominence of the pulmonary hilar arteries with peripheral pulmonary vascular congestion. There is atherosclerotic tortuosity of the aortic arch and descending thoracic aorta. There are diffuse degenerative changes of the visualized thoracic spine. There is mild curvature of the thoracic spine with convexity towards the right. Normal visualized ribs, clavicles, and shoulders. There is no demonstrated abnormality of the visualized soft tissue structures of the upper abdomen. RAD/Chest 1 View (Portable) IMPRESSION: Mild cardiomegaly and pulmonary vascular congestion. Electronically Signed: Zoe Jalloh MD at 4:49 EDT , Service support ,
--- NOTE | 2021-06-30 03:54 | EX.ED.VIS.UR ---
HPI HPI - URI History of Present Illness Chief Complaint: Cough Informant: patient Onset/Context/Timing Onset: Days Context: Gradual Onset Timing: Continuous Current Severity: Mild Maximum Severity: Mild Associated Symptoms Associated Symptoms: Positive for Nonproductive cough; Negative for Hemoptysis Narrative Narrative: 71-year-old female history of asthma, fibromyalgia, arthritis, noncemented diabetes and kidney stones. States she has had a cough for at least a week. Is nonproductive she denies any hemoptysis. Says her chest is sore from coughing. She saw her primary care physician and tells me that about a week ago she had negative testing for RSV, influenza and Covid. She did have Covid in March several months ago earlier this year. She denies any fever or chills. She denies any trouble breathing. Prior similar symptoms: Yes Recent Illness/Hospitalization: No ROS ROS ED ROS Narrative Cough. Review of Systems ROS Unobtainable: Denies due to encephalopathy Constitutional Constitutional ED: Denies chills or fever(s) Eyes Eyes: Denies change in vision ENT ENT ED: Denies ear pain or sore throat Cardiovascular Cardiovascular: Reports chest pain Respiratory/Chest Respiratory/Chest: Reports cough; Denies dyspnea Gastrointestinal Gastrointestinal: Denies abdominal pain, diarrhea, nausea or vomiting Genitourinary Genitourinary ED: Denies dysuria Musculoskeletal Musculoskeletal: Denies myalgias Integumentary Denies rash Neurologic Neurologic: Denies headache(s) Psychiatric Psychiatric: Denies depression Endocrine Endocrinology: Denies polyuria Hematologic/Lymphatic Hematologic/Lymphatic: Denies easy bruising Allergic/Immunologic Allergic/Immunologic ED: Denies urticaria PFSH PFSH Medical History Anemia Anxiety Asthma Depression Diabetes Fibromyalgia Hypertension Hypothyroidism Kidney stones Osteoarthritis Thrombocytopenia Home Medications albuterol sulfate 1 - 2 puff INHALATION Q6H PRN PRN 12/07/16 [History Last Taken Unknown] fluticasone propionate 2 spray NASAL DAILY 12/07/16 [History Last Taken 04/29/21] citalopram 20 mg PO DAILY 04/26/21 [History Last Taken 04/29/21] ropinirole [Requip] 0.5 mg PO QHS 04/26/21 [History Last Taken 04/28/21] fluticasone propionate [Flovent HFA] 1 puff INHALATION DAILY 04/29/21 [History Last Taken 04/29/21] levothyroxine 25 mcg PO DAILY 04/29/21 [History Last Taken 04/29/21] lovastatin 40 mg PO QHS 04/29/21 [History Last Taken 04/28/21] potassium chloride 20 meq PO DAILY 04/29/21 [History Last Taken 04/29/21] Allergy/AdvReac Type Severity Reaction Status Date / Time cephalexin monohydrate Allergy Swelling Verified 04/28/21 13:17 [From Keflex] ibuprofen Allergy Swelling Verified 04/28/21 13:17 oxaprozin [From Daypro] Allergy Swelling Verified 04/28/21 13:17 tramadol HCl [From Ultram] Allergy Swelling Verified 04/28/21 13:17 celecoxib [From Celebrex] AdvReac DIZZY AND Verified 04/29/21 16:32 HURTS AROUND MY LIVER Social History Smoking Status: Never smoker EXAM Physical Exam Narrative Exam Narrative: 71-year-old female no acute distress. Vital signs stable afebrile. Pulse ox 93% on room air no signs hypoxia. H EENT exam unremarkable. Neck nontender. Lungs clear to auscultation bilaterally. Heart regular rhythm no murmur. Chest wall reproducible tenderness anteriorly. No subcu air or crepitance. Abdomen soft nontender normal bowel sounds no peritoneal signs. Moving all 4 extremities. Nontender. Neurologically she is awake and alert answering questions and following commands. Const Vital Signs: 06/30/21 03:40 06/30/21 04:27 Temperature 97.1 F L 97.1 F L Temperature Source Temporal Temporal Pulse Rate 89 89 Respiratory Rate 20 H 20 H Respiratory Effort Normal Respiratory Depth Normal Respiratory Pattern Normal Blood Pressure 139/78 H 139/78 H Blood Pressure Mean 98 98 Pulse Ox 93 93 Oxygen Delivery Method Room Air Room Air Positive well nourished, well developed and obese; Negative for cachectic or contractures General Appearance ED: well developed and NAD; Negative for cachectic, contractures, cyanotic or diaphoretic Nutritional Appearance: obese; Negative for cachectic HEENT Reports moist mucous membranes normocephalic and atraumatic External Ear: external ears normal Eyes PERRL and EOMs intact bilaterally Neck no lymphadenopathy, supple, no meningeal signs and no JVD General: Negative for anterior neck swelling or lymphadenopathy Resp normal respiratory effort and clear to auscultation bilaterally Auscultation: Negative for rales, rhonchi or wheezes Cardio S1 normal heart sound, S2 normal heart sound and no murmurs Rate: regular rate Rhythm: regular rhythm GI non-tender, non-distended and no masses Inspection: Negative for abdominal distention Auscultation: normoactive bowel sounds Palpation: soft; Negative for tender or guarding Extremity normal to inspection Neuro oriented x3 Sensorium / Orientation: alert, oriented to person, oriented to place and oriented to time; Negative for orientation impaired, lethargic or stuporous Motor Exam: strength 5/5 throughout Psych mental status grossly normal Skin Lesions: no lesions Rashes: no rashes MDM MDM MDM Narrative Medical decision making narrative: Older female with nonproductive cough. Exam benign. Chest x-ray being obtained. Chest x-ray no acute findings. Patient be discharged home. Prior to discharge she did mention to me there is a lot of issues going on at home when she is at her family moved back in with her. Namely her daughter and her daughter's children. And she wants Adult Protective Services to make a visit to her home. Radiography Diagnostic Testing: Radiology Impression Chest X-Ray 06/30/21 03:54 IMPRESSION: Mild cardiomegaly and pulmonary vascular congestion. Electronically Signed: Zoe Jalloh MD at 4:49 EDT , Service support , Chest x-ray portable 1 view interpreted by myself shows chronic changes. No acute infiltrate. Discharge Plan Triage Chief Complaint: Cough ED Provider: Dom Epstein Dx/Rx/DC Orders Clinical Impression: Viral URI Instructions: ED URI, Viral, No Abx (Adult) Prescriptions: No Action fluticasone propionate 1 SPRAY spray,suspension 2 spray NASAL DAILY RF: 0 albuterol sulfate 1 PUFF inhaler 1 - 2 puff inhalation Q6H PRN PRN (Reason: Asthma) RF: 0 citalopram 20 mg tablet 20 mg PO DAILY RF: 0 ropinirole [Requip] 0.5 mg Tablet 0.5 mg PO QHS RF: 0 potassium chloride 10 mEq capsule, extended release 20 meq PO DAILY RF: 0 lovastatin 40 mg tablet 40 mg PO QHS RF: 0 levothyroxine 25 mcg tablet 25 mcg PO DAILY RF: 0 Flovent HFA 44 mcg/actuation HFA aerosol inhaler 1 puff INHALATION DAILY RF: 0 Primary Care Provider: Corby Heller Chi Referrals: Corby Heller Chi, MD [Primary Care Provider] - 3-5 Days if not improving Activity Restrictions/Additional Instructions: Tylenol for pain. Follow-up with your doctor. Disposition Disposition: Home, Self Care
[2021-06-30 04:27] VITALS: BP 139/78; PULSE 89; RESP 20; TEMP 36.2; O2SAT 93
[2021-06-30] MEDS: HYDROcodone Bitartrate/Apap 5/325 Tablet PO (04:35)
--- NOTE | 2021-06-30 05:36 | ED.RN ---
APS CONTACTED AND LEFT A VM ALONG WITH A SOCIAL WORK CONSULT PLACED AT PT REQUEST DUE TO HER LIVING SITUATIONS. PT DOES NOT FEEL THAT SHE IS BEING TAKEN CARE OF APPROPRIATELY AND HER FAMILY HAS TURNED HER HOME INTO FILTH.
[2021-06-30 06:03] VITALS: BP 131/85; PULSE 79; RESP 20; O2SAT 93
[2021-06-30] MEDS: Acetaminophen 325 MG Tablet 650 MG PO (06:40)
--- NOTE | 2021-06-30 10:16 | CM.ED ---
TIFFANY Note Referral Source: developer automatic Reason: APS referral follow up SW received note from ULISES Michelle stating that patient reports her family is not taking care of her at home. Patient reports that there are fruit flies all over the house and she thinks the kids are trying to get her sick. Note stated that the patient's children tell her to go to your room and isolate her within her home. TIFFANY noted that Viviana Trejo left voice mail with APS. This leader writer called Eligio at [facility] and left voice mail message for APS regarding patient. TIFFANY remains available for call back from Eligio at [facility]. Plan: APS referral Jaye CANDELARIA
== END 2021-06-30 07:57 | disposition home or self-care (01) ==
PROVIDERS: Emergency Provider Emergency Medicine; PCP Family Medicine Geriatric Medicine
DX: J06.9 Acute upper respiratory infection, unspecified (principal); E11.9 Type 2 diabetes mellitus without complications; F41.9 Anxiety disorder, unspecified; M79.7 Fibromyalgia; J45.909 Unspecified asthma, uncomplicated; M19.90 Unspecified osteoarthritis, unspecified site; Z86.2 Personal history of diseases of the blood and blood-forming organs and certain disorders involving the immune mechanism; Z87.442 Personal history of urinary calculi; Z79.899 Other long term (current) drug therapy
CPT/HCPCS: 71045; 99284

== ENCOUNTER → 2021-07-08 | Outpatient (CLI) | payer MEDICARE, OTHER, SELFPAY | END | disposition home or self-care (01) | LOC: LABSPEC 13:35 | PROVIDERS: PCP Family Medicine Geriatric Medicine; Referring Provider Family Medicine Geriatric Medicine; Visit Provider Family Medicine Geriatric Medicine | DX: R19.7 Diarrhea, unspecified (principal) | CPT/HCPCS: 82274; 83630; 87177; 87209; 87506 ==

== ENCOUNTER → 2021-07-10 13:22 | Outpatient (CLI) | payer MEDICARE, OTHER, SELFPAY | PROVIDERS: PCP Family Medicine Geriatric Medicine; Referring Provider Family Medicine Geriatric Medicine; Visit Provider Family Medicine Geriatric Medicine | DX: R68.83 Chills (without fever) (principal) | CPT/HCPCS: 87635; 87804; 87807; C9803; U0005; U0003 ==

== ENCOUNTER → 2021-07-31 16:10 | Outpatient (CLI) | payer MEDICARE, OTHER, SELFPAY ==
[2021-07-31 18:13] LABS: Absolute Lymphocyte Count 2.17 X10^3/uL (0.83-4.51); Basophil# 0.06 X10^3/uL; Basophil% 0.5 % (0-1); Eosinophil# 0.15 X10^3/uL; Eosinophils% 1.2 % (0-5); Hematocrit 35.5 % (37-47); Hemoglobin 10.7 g/dL (12.0-15.0); Lymphocyte # 2.17 X10^3/ul (0.83-4.51); Lymphocyte % 17.7 % (19-41); Mean Corp Hgb Conc 30.1 g/dL (32-36); Mean Corpuscular Hgb 28.5 pg (27.0-32.0); Mean Corpuscular Volume 94.7 fL (81-99); Mean Platelet Vol. 9.6 fl (6.2-12.0); Monocyte# 0.75 X10^3/uL; Monocyte% 6.1 % (0-10); NRBC Flagged by Analyzer 0 % (0-5); Neutrophil # 8.99 X10^3/uL (2.7-7.7); Neutrophil % 73.6 % (47-70); Platelet Count 358 K/mm3 (150-450); RBC Distribution Width CV 15.7 % (11.6-14.6); Red Blood Count 3.75 M/mm3 (4.2-5.4); White Blood Count 12.2 K/mm3 (4.4-11.0)
[2021-07-31 18:25] LABS: Erythrocyte Sedimentation Rate 40 mm/hr (0-30)
== END ==
PROVIDERS: PCP Family Medicine Geriatric Medicine; Referring Provider Internal Medicine Pulmonary Disease; Visit Provider Internal Medicine Pulmonary Disease
DX: U07.1 COVID-19 (principal)
CPT/HCPCS: 36415; 85025; 85652; 86141

== ENCOUNTER → 2021-09-05 16:14 | Outpatient (CLI) | payer MEDICARE, OTHER, SELFPAY ==
[2021-09-05 17:47] LABS: Erythrocyte Sedimentation Rate 64 mm/hr (0-30)
== END ==
PROVIDERS: PCP Family Medicine Geriatric Medicine; Referring Provider Internal Medicine Pulmonary Disease; Visit Provider Internal Medicine Pulmonary Disease
DX: U07.1 COVID-19 (principal); J45.909 Unspecified asthma, uncomplicated
CPT/HCPCS: 36415; 85652; 86140

== ENCOUNTER → 2021-09-25 14:26 | Outpatient (CLI) | payer MEDICARE, OTHER, SELFPAY ==
--- NOTE | 2021-09-25 14:30 | CT_ITS ---
STUDY: CT Chest W/O Contrast Injection 09/25/2021 3:22 PM REASON FOR EXAM: Female, 71 years old. DYSPNEA SOB, cough, hx asthma, diabetes. Individualized dose optimization techniques were used for this CT. TECHNIQUE: Transaxial imaging was performed withoutIV contrast material. COMPARISON: None. FINDINGS: There are degenerative changes of the shoulders. There is no pneumothorax. There is no demonstrated pleural abnormality. There are calcifications of the coronary arteries. Normal mediastinum. Normal hilar regions. Normal pulmonary arteries. There is atherosclerotic calcification of the aortic arch with tortuosity and elongation of the aortic arch and descending thoracic aorta. There are multi-level degenerative changes of the thoracic spine. There are no acute findings of the upper abdomen. CT/Chest without Contrast IMPRESSION: There are no acute findings. Electronically Signed: John Brown MD at 15:25 EST , Service support ,
[2021-09-25 16:02] LABS: Erythrocyte Sedimentation Rate 24 mm/hr (0-30)
[2021-09-25 16:03] LABS: Absolute Lymphocyte Count 0.87 X10^3/uL (0.83-4.51); Absolute Neutrophil Count 7.3 X10^3/uL (2.0-7.7); Basophil# 0.03 X10^3/uL; Basophil% 0.3 % (0-1); Eosinophil# 0.02 X10^3/uL; Eosinophils% 0.2 % (0-5); Hematocrit 38.2 % (37-47); Hemoglobin 11.8 g/dL (12.0-15.0); Lymphocyte # 0.87 X10^3/ul (0.83-4.51); Lymphocyte % 10.1 % (19-41); Mean Corp Hgb Conc 30.9 g/dL (32-36); Mean Corpuscular Hgb 29.1 pg (27.0-32.0); Mean Corpuscular Volume 94.1 fL (81-99); Mean Platelet Vol. 10.1 fl (6.2-12.0); Monocyte# 0.39 X10^3/uL; Monocyte% 4.5 % (0-10); NRBC Flagged by Analyzer 0 % (0-5); Neutrophil # 7.27 X10^3/uL (2.7-7.7); Neutrophil % 84.1 % (47-70); Platelet Count 184 K/mm3 (150-450); RBC Distribution Width SD 58.5 fl (35.1-43.9); Red Blood Count 4.06 M/mm3 (4.2-5.4); White Blood Count 8.7 K/mm3 (4.4-11.0)
[2021-09-25 16:24] LABS: AST(SGOT) 30 U/L (15-37); Alanine Aminotransfer ALT/SGPT 37 U/L (13-56); Alkaline Phosphatase 61 U/L (45-117); Bilirubin, Direct 0.06 mg/dL (0.00-0.30); CRP < 2.90 mg/L (0.0-3.0); Globulin 4.1 g/dL (2.2-4.2); Protein, Total 7.1 g/dL (6.4-8.2); Rheumatoid Factor < 10.0 IU/mL (<15)
[2021-09-29 14:08] LABS: Anti-Scleroderma-70 AB <0.2 AI (0.0-0.9); SJOGREN'S Anti-SS-A test < 0.2 AI (0.0-0.9); SJOGREN'S Anti-SS-B test < 0.2 AI (0.0-0.9)
[2021-09-29 16:13] LABS: ANTINUCLEAR ANTIBODIES DIRECT Negative (Negative); Anti-dsDNA Ab <1 IU/mL (0-9)
[2021-09-30 12:08] LABS: Angiotensin Convert Enzyme 27 U/L (14-82); Cytoplasmic Ab (C-ANCA) <1:20 titer (Neg:<1:20)
[2021-09-30 15:53] LABS: Anti-Smooth Muscle ABS 7 Units (0-19); Perinuclear Ab (P-ANCA) <1:20 titer (Neg:<1:20)
[2021-09-30 15:54] LABS: CCP IgG Antibodies 5 units (0-19)
== END ==
PROVIDERS: PCP Family Medicine Geriatric Medicine; Referring Provider Internal Medicine Pulmonary Disease; Visit Provider Internal Medicine Pulmonary Disease
DX: U07.1 COVID-19 (principal); R06.00 Dyspnea, unspecified
CPT/HCPCS: 36415; 71250; 80076; 82164; 83516; 85025; 85652; 86038; 86140; 86200; 86225; 86235; 86256; 86431

== ENCOUNTER 2021-10-21 16:18 | Outpatient (CLI) | payer MEDICARE, OTHER, SELFPAY ==
[2021-10-21 17:09] LABS: Absolute Lymphocyte Count 2.34 X10^3/uL (0.83-4.51); Absolute Neutrophil Count 5.5 X10^3/uL (2.0-7.7); Basophil# 0.05 X10^3/uL; Basophil% 0.6 % (0-1); Eosinophils% 1.1 % (0-5); Hematocrit 38.6 % (37-47); Hemoglobin 12.3 g/dL (12.0-15.0); Lymphocyte # 2.34 X10^3/ul (0.83-4.51); Lymphocyte % 26.8 % (19-41); Mean Corp Hgb Conc 31.9 g/dL (32-36); Mean Corpuscular Hgb 29.3 pg (27.0-32.0); Mean Corpuscular Volume 91.9 fL (81-99); Mean Platelet Vol. 9.9 fl (6.2-12.0); NRBC Flagged by Analyzer 0 % (0-5); Neutrophil # 5.49 X10^3/uL (2.7-7.7); Neutrophil % 62.8 % (47-70); Platelet Count 241 K/mm3 (150-450); RBC Distribution Width CV 16.8 % (11.6-14.6); White Blood Count 8.7 K/mm3 (4.4-11.0)
[2021-10-21 17:28] LABS: Vitamin D,25 Hydroxy 50.1 ng/mL
[2021-10-21 17:41] LABS: ALB/GLOB Ratio 0.7 RATIO (0.9-2.4); AST(SGOT) 31 U/L (15-37); Alanine Aminotransfer ALT/SGPT 28 U/L (13-56); Albumin, Serum 3.2 g/dL (3.2-5.0); Alkaline Phosphatase 68 U/L (45-117); Anion Gap 8 (5-15); BUN 20 mg/dL (7-18); Chloride 101 mmol/L (98-107); Creatinine, Serum 1.05 mg/dL (0.55-1.02); EST Glomerular Filtration Rate 55 mL/min (>60); Est Glom Filt Rate - Afr Amer 66 mL/min (>60); Globulin 4.6 g/dL (2.2-4.2); Glucose 173 mg/dL (74-106); Potassium 4.2 mmol/L (3.5-5.1); Protein, Total 7.8 g/dL (6.4-8.2); Sodium Level 138 mmol/L (136-145); Thyroid Stim Hormone (TSH) 2.44 uIU/mL (0.358-3.74)
== END 2021-10-21 23:59 | disposition short-term general hospital (02) ==
PROVIDERS: PCP Family Medicine Geriatric Medicine; Visit Provider Family Medicine Geriatric Medicine
DX: E11.9 Type 2 diabetes mellitus without complications (principal); E55.9 Vitamin D deficiency, unspecified; I10 Essential (primary) hypertension
CPT/HCPCS: 36415; 80053; 82306; 84443; 85025

== ENCOUNTER → 2022-01-20 | Outpatient (CLI) | payer MEDICARE, OTHER, SELFPAY ==
[2022-01-20 17:35] LABS: Absolute Lymphocyte Count 2.53 X10^3/uL (0.83-4.51); Absolute Neutrophil Count 6.9 X10^3/uL (2.0-7.7); Basophil# 0.05 X10^3/uL; Basophil% 0.5 % (0-1); Eosinophil# 0.23 X10^3/uL; Eosinophils% 2.2 % (0-5); Hematocrit 35.3 % (37-47); Hemoglobin 11.4 g/dL (12.0-15.0); Lymphocyte # 2.53 X10^3/ul (0.83-4.51); Lymphocyte % 23.7 % (19-41); Mean Corp Hgb Conc 32.3 g/dL (32-36); Mean Corpuscular Hgb 30.3 pg (27.0-32.0); Mean Corpuscular Volume 93.9 fL (81-99); Mean Platelet Vol. 9.4 fl (6.2-12.0); Monocyte# 0.95 X10^3/uL; Monocyte% 8.9 % (0-10); NRBC Flagged by Analyzer 0 % (0-5); Neutrophil # 6.86 X10^3/uL (2.7-7.7); Neutrophil % 64.1 % (47-70); Platelet Count 282 K/mm3 (150-450); RBC Distribution Width CV 14.1 % (11.6-14.6); RBC Distribution Width SD 48.6 fl (35.1-43.9); Red Blood Count 3.76 M/mm3 (4.2-5.4); White Blood Count 10.7 K/mm3 (4.4-11.0)
[2022-01-20 17:41] LABS: Vitamin D,25 Hydroxy 46.5 ng/mL
[2022-01-20 17:51] LABS: ALB/GLOB Ratio 0.7 RATIO (0.9-2.4); AST(SGOT) 28 U/L (15-37); Alanine Aminotransfer ALT/SGPT 29 U/L (13-56); Albumin, Serum 3.4 g/dL (3.2-5.0); Alkaline Phosphatase 59 U/L (45-117); Anion Gap 6 (5-15); BUN 26 mg/dL (7-18); Calcium,Total 9.6 mg/dL (8.5-10.1); Chloride 102 mmol/L (98-107); Creatinine, Serum 0.76 mg/dL (0.55-1.02); EST Glomerular Filtration Rate 79 mL/min (>60); Est Glom Filt Rate - Afr Amer 95 mL/min (>60); Globulin 4.6 g/dL (2.2-4.2); Glucose 100 mg/dL (74-106); Potassium 4.4 mmol/L (3.5-5.1); Sodium Level 137 mmol/L (136-145); Thyroid Stim Hormone (TSH) 2.53 uIU/mL (0.358-3.74)
== END | disposition home or self-care (01) ==
LOC: POLAB3 15:50
PROVIDERS: PCP Family Medicine Geriatric Medicine; Visit Provider Family Medicine Geriatric Medicine
DX: E11.9 Type 2 diabetes mellitus without complications (principal); E55.9 Vitamin D deficiency, unspecified; I10 Essential (primary) hypertension
CPT/HCPCS: 36415; 80053; 82306; 84443; 85025

== ENCOUNTER → 2022-01-27 | Outpatient (CLI) | payer MEDICARE, OTHER, SELFPAY ==
--- NOTE | 2022-01-27 09:30 | LES_PTH ---
PATIENT: EDUAR GOMEZ [id number] AGE/SX: 71/F ROOM: RE01/27/[address]: Dr. Corby Heller MD : 1950 BED: DIS: 01/27/2022 SPEC #: [id number] RECD: 01/27/22 16:51 STATUS: SHYANNE ENOC #: [id number] HIEN: 01/27/22 09:[address]: Corby Heller Chi DEPT: SURGICAL PATHOLOGY RECD BY: Nelda Gomez Tissues: A - Skin, NOS B - Skin, NOS Procedures: Surgery Specimen Level IV HEADER OPERATION: Excision Lesion Right side PRE-OP DIAGNOSIS: Lesion right side TISSUE SUBMITTED: A - Right side, B ? Right side MICROSCOPIC DIAGNOSIS A. Skin lesion, right side, shave biopsy: Seborrheic keratosis, mildly inflamed. B. Skin lesion, right side, shave biopsy: Seborrheic keratosis, mildly inflamed. AM:flory 01/29/2022 MICROSCOPIC DESCRIPTION Slides are reviewed. GROSS DESCRIPTION A - Received in fixative is one container labeled with the patient's name and designated right side. The specimen consists of a piece of villa-white skin measuring 1.4 x 0.8 x 0.2 cm. The specimen is inked, serially sectioned and submitted entirely in one cassette. B - Received in fixative is one container labeled with the patient's name and designated right side. The specimen consists of a piece of villa-white skin measuring 1.1 x 0.8 x 0.2 cm. The specimen is inked, serially sectioned and submitted entirely in one cassette. / SJ:flory 01/28/2022 TC:5 CPT: 39723 x2
== END | disposition home or self-care (01) ==
PROVIDERS: PCP Family Medicine Geriatric Medicine; Visit Provider Family Medicine Geriatric Medicine
DX: L82.0 Inflamed seborrheic keratosis (principal)
CPT/HCPCS: 88305

== ENCOUNTER → 2022-02-17 | Outpatient (CLI) | payer MEDICARE, OTHER, SELFPAY ==
--- NOTE | 2022-02-17 16:25 | RAD_ITS ---
EXAM: XR CHEST, 2 VIEWS CLINICAL INDICATION: DYSPNEA TECHNIQUE: Frontal and lateral views of the chest. This report was created using [employer] report generation technology. COMPARISON: 06/30/2021 FINDINGS: LUNGS AND PLEURAL SPACES: Bibasilar pulmonary densities consistent with pneumonia and/or atelectasis. Right lower lobe pneumonia not excluded. Small right pleural effusion. No pneumothorax. HEART: Unremarkable. Cardiac silhouette not enlarged. MEDIASTINUM: Central airways and mediastinal contour are unremarkable. BONES/JOINTS: Mild dextroscoliosis of the thoracic spine again seen. SOFT TISSUES: Unremarkable. RAD/Chest PA and Lateral IMPRESSION: Mild bibasilar pneumonia/atelectasis. Electronically Signed: Chritsiano Dela Cruz MD at 11:48 EDT ,
== END | disposition home or self-care (01) ==
PROVIDERS: PCP Family Medicine Geriatric Medicine; Referring Provider Internal Medicine Pulmonary Disease; Visit Provider Internal Medicine Pulmonary Disease
DX: R06.00 Dyspnea, unspecified (principal)
CPT/HCPCS: 71046

== ENCOUNTER → 2022-02-26 | Outpatient (CLI) | payer MEDICARE, OTHER, SELFPAY ==
--- NOTE | 2022-02-26 14:06 | BI_ITS ---
MAMMOGRAPHY - BILATERAL SCREENING REASON FOR EXAM: Female, 72 years old. Routine annual screening examination. PERTINENT HISTORY: Non-contributory. TECHNIQUE: Digital bilateral breast marbin (3D mammographic acquisition) in the CC and MLO projections. 2-D mediolateral oblique (MLO) and craniocaudad (CC) views of both breasts were obtained. CAD: Full Field Digital Mammography with Computer Added Detection was performed. COMPARISON: Comparison is made with prior study dated 12/08/2016 and 10/26/2013. FINDINGS: Breast Composition: There are scattered areas of fibroglandular density. There are no dominant masses or suspicious calcifications. Since prior study, there has been progression of the secretory type calcifications in breasts more prominent on the left side. No other significant abnormalities are identified. BI/SCRN MAMM (CAD)W/MARBIN BILAT IMPRESSION: Stable bilateral screening mammogram. Yearly follow-up mammogram recommended. (A) ASSESSMENT CATEGORY: BIRADS Category 2: Benign. A letter regarding these results will be sent to the patient by the facility within 30 days. Approximately 10% of breast cancers are not detected by mammography. A normal mammogram should not delay biopsy of a clinically suspicious abnormality. [id number] Electronically Signed: Slade Boyd MD at 15:18 EDT ,
== END | disposition home or self-care (01) ==
LOC: OPBI 14:03
PROVIDERS: PCP Family Medicine Geriatric Medicine; Visit Provider Family Medicine Geriatric Medicine
DX: Z12.31 Encounter for screening mammogram for malignant neoplasm of breast (principal)
CPT/HCPCS: 77063; 77067

== ENCOUNTER → 2022-03-11 | Outpatient (CLI) | payer MEDICARE, OTHER, SELFPAY ==
--- NOTE | 2022-03-11 16:30 | RAD_ITS ---
STUDY: XR Chest 2 Views 03/11/2022 4:40 PM REASON FOR EXAM: Female, 72 years old. CHEST PAIN CONGESTION COMPARISON: 02/17/2022 TECHNIQUE: XR Chest 2 Views FINDINGS: There is no demonstrated pleural abnormality. Normal heart size. Normal mediastinum. Normal kim. Prominent appearing increased interstitial lung markings. Normal visualized pulmonary arteries. There is atherosclerotic calcification of the aortic arch with tortuosity. There are diffuse degenerative changes of the visualized thoracic spine. There is degenerative osteoarthritis of the bilateral shoulders. There is no demonstrated abnormality of the visualized soft tissue structures of the upper abdomen. RAD/Chest PA and Lateral IMPRESSION: There are no acute findings. Electronically Signed: John Brown MD at 17:57 EDT ,
== END | disposition home or self-care (01) ==
LOC: RAD 16:24
PROVIDERS: PCP Family Medicine Geriatric Medicine; Referring Provider Family Medicine Geriatric Medicine; Visit Provider Family Medicine Geriatric Medicine
DX: R68.89 Other general symptoms and signs (principal)
CPT/HCPCS: 71046

== ENCOUNTER → 2022-04-07 | Outpatient (CLI) | payer MEDICARE, OTHER, SELFPAY ==
[2022-04-07 17:07] LABS: Absolute Lymphocyte Count 2.26 X10^3/uL (0.83-4.51); Absolute Neutrophil Count 6.1 X10^3/uL (2.0-7.7); Basophil# 0.07 X10^3/uL; Basophil% 0.7 % (0-1); Eosinophil# 0.17 X10^3/uL; Eosinophils% 1.8 % (0-5); Hematocrit 36.5 % (37-47); Hemoglobin 11.6 g/dL (12.0-15.0); Lymphocyte # 2.26 X10^3/ul (0.83-4.51); Lymphocyte % 23.9 % (19-41); Mean Corp Hgb Conc 31.8 g/dL (32-36); Mean Corpuscular Hgb 29.8 pg (27.0-32.0); Mean Corpuscular Volume 93.8 fL (81-99); Mean Platelet Vol. 9.6 fl (6.2-12.0); Monocyte# 0.73 X10^3/uL; Monocyte% 7.7 % (0-10); NRBC Flagged by Analyzer 0 % (0-5); Neutrophil # 6.13 X10^3/uL (2.7-7.7); Neutrophil % 64.9 % (47-70); Platelet Count 252 K/mm3 (150-450); RBC Distribution Width CV 15.3 % (11.6-14.6); RBC Distribution Width SD 51.9 fl (35.1-43.9); Red Blood Count 3.89 M/mm3 (4.2-5.4); White Blood Count 9.5 K/mm3 (4.4-11.0)
[2022-04-07 17:25] LABS: Vitamin D,25 Hydroxy 37.1 ng/mL
[2022-04-07 17:44] LABS: ALB/GLOB Ratio 0.7 RATIO (0.9-2.4); AST(SGOT) 26 U/L (15-37); Alanine Aminotransfer ALT/SGPT 25 U/L (13-56); Albumin, Serum 3.2 g/dL (3.2-5.0); Alkaline Phosphatase 68 U/L (45-117); Anion Gap 7 (5-15); BUN 27 mg/dL (7-18); BUN/Creat Ratio 26.5 RATIO (10-20); Chloride 102 mmol/L (98-107); Creatinine, Serum 1.02 mg/dL (0.55-1.02); EST Glomerular Filtration Rate 56 mL/min (>60); Est Glom Filt Rate - Afr Amer 68 mL/min (>60); Globulin 4.6 g/dL (2.2-4.2); Glucose 97 mg/dL (74-106); Potassium 4.7 mmol/L (3.5-5.1); Protein, Total 7.8 g/dL (6.4-8.2); Sodium Level 138 mmol/L (136-145); Thyroid Stim Hormone (TSH) 2.61 uIU/mL (0.358-3.74)
== END | disposition home or self-care (01) ==
LOC: POLAB3 15:42
PROVIDERS: PCP Family Medicine Geriatric Medicine; Visit Provider Family Medicine Geriatric Medicine
DX: E11.9 Type 2 diabetes mellitus without complications (principal); E55.9 Vitamin D deficiency, unspecified; I10 Essential (primary) hypertension
CPT/HCPCS: 36415; 80053; 82306; 84443; 85025

== ENCOUNTER 2022-07-12 14:23 | Emergency (ER) | payer MEDICARE, OTHER, SELFPAY ==
[2022-07-12 14:24] VITALS: BP 147/120; PULSE 113; RESP 18; TEMP 36.9; O2SAT 92; BMI 48.3
--- NOTE | 2022-07-12 14:39 | EKG12_ITS ---
Test Reason : SOB Blood Pressure : / mmHG Vent. Rate : 107 BPM Atrial Rate : 107 BPM P-R Int : 204 ms QRS Dur : 084 ms QT Int : 334 ms P-R-T Axes : 049 037 046 degrees QTc Int : 445 ms Sinus tachycardia with Premature supraventricular complexes Low voltage QRS Confirmed by LEONARDO RAY, RICH ([id number]), newspaper managing editor INDIGO ESQUIVEL ([id number]) on 07/14/2022 8:20:39 AM Referred By: Confirmed By:RICH PATTERSON MD
--- NOTE | 2022-07-12 14:40 | ED.VIS.DYS ---
HPI <SAMANTHA Beard - Last Filed: 07/12/22 16:07> History of Present Illness Chief Complaint: Asthma Narrative Narrative: 72-year-old female with PMH of HLD, asthma presents with 1 week of productive cough. She states she is always short of breath after walking 2 minutes or so and this is unchanged. She denies chest pain, dyspnea at rest, orthopnea, or lower extremity edema. She has had no fever chills or other URI symptoms. She went to urgent care to be checked for pneumonia but they recommended she come to the ED. She denies smoking and does not use home oxygen PFSH <SAMANTHA Beard - Last Filed: 07/12/22 16:07> FOR[facility]LY [facility] Medical History Anemia Anxiety Asthma Depression Diabetes Fibromyalgia Hypertension Hypothyroidism Kidney stones Osteoarthritis Thrombocytopenia Home Medications albuterol sulfate 90 mcg/actuation aerosol inhaler 1 - 2 puff inhalation Q6H PRN PRN Asthma 12/07/16 [History Last Taken Unknown] fluticasone propionate 50 mcg/actuation nasal spray,suspension 2 spray NASAL DAILY allergies 12/07/16 [History Last Taken 04/29/21] citalopram 20 mg tablet 20 mg PO DAILY 04/26/21 [History Last Taken 04/29/21] ropinirole 0.5 mg tablet 0.5 mg PO QHS RLS 04/26/21 [History Last Taken 04/28/21] fluticasone propionate 44 mcg/actuation HFA aerosol inhaler (Flovent HFA) 1 puff inhalation DAILY breathing 04/29/21 [History Last Taken 04/29/21] levothyroxine 25 mcg tablet 25 mcg PO DAILY thyroid 04/29/21 [History Last Taken 04/29/21] lovastatin 40 mg tablet 40 mg PO QHS cholesterol 04/29/21 [History Last Taken 04/28/21] potassium chloride 10 mEq capsule,extended release 20 meq PO DAILY supplement 04/29/21 [History Last Taken 04/29/21] prednisone 50 mg tablet 50 mg PO DAILY #4 tabs 07/12/22 [Rx Last Taken Unknown] Allergy/AdvReac Type Severity Reaction Status Date / Time cephalexin monohydrate Allergy Swelling Verified 07/12/22 14:23 [From Keflex] ibuprofen Allergy Swelling Verified 07/12/22 14:23 oxaprozin [From Daypro] Allergy Swelling Verified 07/12/22 14:23 tramadol HCl [From Ultram] Allergy Swelling Verified 07/12/22 14:23 celecoxib [From Celebrex] AdvReac DIZZY AND Verified 07/12/22 14:23 HURTS AROUND MY LIVER Social History Smoking Status: Never smoker ROS <SAMANTHA Beard - Last Filed: 07/12/22 16:07> ROS ED ROS Narrative Constitutional: Negative for fever, chills, malaise. Eyes: Negative for visual change. ENT: Negative for sore throat, ear pain, rhinorrhea. CVS: Negative for palpitations, chest pain, syncope. Respiratory: Positive for cough, chronic dyspnea on exertion. Negative for orthopnea. GI: Negative for abdominal pain, nausea, vomiting, diarrhea, constipation, melena, hematochezia. : Negative for dysuria, hematuria or frequency. Neuro: Negative for headache, motor/sensory dysfunction. Skin: Negative for rash, abscess, or wound. Musc: Negative for joint pain, swelling, trauma. Heme: Negative for easy bruising, bleeding, lymphadenopathy. EXAM <SAMANTHA Beard - Last Filed: 07/12/22 16:07> Physical Exam Narrative Exam Narrative: CONST: Patient sitting in no acute distress. EYES: Normal inspection. NECK: Normal inspection. RESP: No respiratory distress, CTAB. CVS: Regular rate and rhythm, no murmur, no gallop. ABD: Soft and nontender, no guarding or rebound, nondistended. SKIN: Color normal, no rash, warm, dry, intact. EXTREMITIES: Normal appearance, no pedal edema. NEURO: Oriented x4. PSYCH: Normal affect. Const Vital Signs: 07/12/22 14:24 07/12/22 14:43 07/12/22 14:44 Temperature 98.4 F Temperature Source Temporal Pulse Rate 113 H 113 H Respiratory Rate 18 24 H Respiratory Effort Short of Breath Blood Pressure 147/120 H 157/106 H Blood Pressure Mean 129 123 Pulse Ox 92 92 Oxygen Delivery Method Room Air Room Air 07/12/22 16:20 Temperature Temperature Source Pulse Rate 102 H Respiratory Rate 22 H Respiratory Effort Blood Pressure 137/84 H Blood Pressure Mean Pulse Ox 95 Oxygen Delivery Method <Dr. Bladimir Bishop MD - Last Filed: 07/12/22 23:09> Physical Exam Const Vital Signs: 07/12/22 14:24 07/12/22 14:43 07/12/22 14:44 Temperature 98.4 F Temperature Source Temporal Pulse Rate 113 H 113 H Respiratory Rate 18 24 H Respiratory Effort Short of Breath Blood Pressure 147/120 H 157/106 H Blood Pressure Mean 129 123 Pulse Ox 92 92 Oxygen Delivery Method Room Air Room Air 07/12/22 16:20 Temperature Temperature Source Pulse Rate 102 H Respiratory Rate 22 H Respiratory Effort Blood Pressure 137/84 H Blood Pressure Mean Pulse Ox 95 Oxygen Delivery Method MDM <SAMANTHA Beard - Last Filed: 07/12/22 16:07> MDM MDM Narrative Medical decision making narrative: Patient presents with 1 week of productive cough. She denies any worsening of her chronic shortness of breath with activity. She has no chest pain. She appears well and nontoxic. She was tachycardic to 113, 92% on room air, otherwise normal vital signs. Initially they noted she is tachypneic but on my exam is breathing 18 times a minute in no distress. She is able to speak in full sentences. Heart is regular and lungs are clear. There is no lower extremity edema. CXR shows no acute findings and COVID/flu testing is negative. With her cough and on reevaluation mild wheezing she will be treated with a prednisone burst. She declined aerosol treatment and states she has inhalers at home. She was discharged in stable condition. Radiography Diagnostic Testing: Clinical Impression(s) from Imaging Studies Chest X-Ray 07/12/22 15:00 IMPRESSION: No acute cardiopulmonary abnormality. Electronically Signed: Christiano Dela Cruz MD at 15:24 EDT , ED attending interpretation shows normal heart size, no acute infiltrate, edema, or effusion. EKG Initial EKG: Attestation: I personally reviewed and interpreted this EKG as follows: Interpretation: Sinus Rhythm and No Acute Injury Pattern Comments: Sinus tachycardia at 107 bpm with PVCs, normal intervals, no acute ischemia <Dr. Bladimir Bishop MD - Last Filed: 07/12/22 23:09> MDM Radiography Diagnostic Testing: Clinical Impression(s) from Imaging Studies Chest X-Ray 07/12/22 15:00 IMPRESSION: No acute cardiopulmonary abnormality. Electronically Signed: Christiano Dela Cruz MD at 15:24 EDT Reading Location ID and State: [facility] / [place] Tel , Service support , Treatment and Re-Evaluation Narrative: Seen and evaluated independently and in conjunction with physician dental laboratory assistant. Agree with notes above unless documented otherwise. Patient mildly wheezy, asthma symptoms, no fevers or chills or other symptoms of COVID. No distress, declines nebulizer treatment here, speaking in full sentences. Not hypoxic. Chest x-ray 2 views on my interpretation shows no acute infiltrates. Plan is to discharge patient on steroids with close outpatient follow-up advised. Discharge Plan Triage Chief Complaint: Asthma ED Midlevel Provider: Lucrecia Garcia ED Provider: Bladimir Bishop Dx/Rx/DC Orders Clinical Impression: Upper respiratory infection Instructions: ED URI, Viral, No Abx (Adult) Prescriptions: New prednisone 50 mg tablet 50 mg PO DAILY Qty: 4 0RF No Action fluticasone propionate 1 SPRAY spray,suspension 2 spray NASAL DAILY albuterol sulfate 1 PUFF inhaler 1 - 2 puff inhalation Q6H PRN PRN (Reason: Asthma) citalopram 20 mg tablet 20 mg PO DAILY Label Comments: TAKE 1/2 (ONE-HALF) OF A TABLET DAILY FOR 7 DAYS then TAKE 1 TABLET DAILY ropinirole [Requip] 0.5 mg Tablet 0.5 mg PO QHS potassium chloride 10 mEq capsule, extended release 20 meq PO DAILY lovastatin 40 mg tablet 40 mg PO QHS Label Comments: TAKE 1 TABLET DAILY AT BEDTIME levothyroxine 25 mcg tablet 25 mcg PO DAILY Label Comments: TAKE 1 TABLET BY MOUTH ONCE DAILY Flovent HFA 44 mcg/actuation HFA aerosol inhaler 1 puff INHALATION DAILY Primary Care Provider: Corby Heller Chi Referrals: Corby Heller Chi, MD [Primary Care Provider] - Disposition Disposition: Home, Self Care Discharge Date/Time: 07/12/22 17:00
[2022-07-12 14:43] VITALS: BP 157/106; PULSE 113; RESP 24; O2SAT 92
--- NOTE | 2022-07-12 15:00 | RAD_ITS ---
EXAM: XR CHEST, 2 VIEWS CLINICAL INDICATION: cough TECHNIQUE: Frontal and lateral views of the chest. This report was created using [employer] report generation technology. COMPARISON: XR Chest dated 03/11/2022 FINDINGS: LUNGS AND PLEURAL SPACES: Normal. No consolidation or edema. No pneumothorax. No effusion. HEART: Normal heart size. MEDIASTINUM: No mediastinal or hilar mass. BONES/JOINTS: No acute abnormality. SOFT TISSUES: Normal. RAD/Chest PA and Lateral IMPRESSION: No acute cardiopulmonary abnormality. Electronically Signed: Christiano Dela Cruz MD at 15:24 EDT ,
[2022-07-12 16:20] VITALS: BP 137/84; PULSE 102; RESP 22; O2SAT 95
== END 2022-07-12 17:00 | disposition home or self-care (01) ==
PROVIDERS: Emergency Provider Emergency Medicine; PCP Family Medicine Geriatric Medicine; Visit Provider Emergency Medicine
DX: J06.9 Acute upper respiratory infection, unspecified (principal); E11.9 Type 2 diabetes mellitus without complications; J45.909 Unspecified asthma, uncomplicated; M79.7 Fibromyalgia; I10 Essential (primary) hypertension; E78.5 Hyperlipidemia, unspecified; R06.02 Shortness of breath; Z79.52 Long term (current) use of systemic steroids; Z20.822 Contact with and (suspected) exposure to COVID-19
CPT/HCPCS: 71046; 87428; 93005; 99284

== ENCOUNTER → 2022-07-27 | Outpatient (CLI) | payer MEDICARE, OTHER, SELFPAY ==
[2022-07-27 15:30] LABS: Vitamin D,25 Hydroxy 46.8 ng/mL
--- NOTE | 2022-07-27 15:35 | RAD_ITS ---
INDICATION: COUGH EXAMINATION: Frontal and lateral views of the chest. COMPARISON: Chest x-ray from July 12, 2022. FINDINGS: Frontal and lateral views of the chest were obtained. The cardiac silhouette is not enlarged. Streaky opacities in the lower lobes bilaterally similar to the prior exam. Superimposed air space disease is difficult to exclude. No pleural effusion or pneumothorax. Scoliosis. RAD/Chest PA and Lateral IMPRESSION: Atelectasis in the lower lungs bilaterally. Mild superimposed infection or aspiration is not excluded. Electronically Signed: Uriel Arredondo MD at 6:29 EDT ,
[2022-07-27 17:47] LABS: Absolute Lymphocyte Count 2.04 X10^3/uL (0.83-4.51); Absolute Neutrophil Count 8.5 X10^3/uL (2.0-7.7); Basophil# 0.05 X10^3/uL; Basophil% 0.4 % (0-1); Eosinophil# 0.23 X10^3/uL; Eosinophils% 1.9 % (0-5); Hematocrit 36.2 % (37-47); Hemoglobin 11.7 g/dL (12.0-15.0); Lymphocyte # 2.04 X10^3/ul (0.83-4.51); Lymphocyte % 17.2 % (19-41); Mean Corp Hgb Conc 32.3 g/dL (32-36); Mean Corpuscular Volume 95.8 fL (81-99); Mean Platelet Vol. 10.8 fl (6.2-12.0); Monocyte# 0.96 X10^3/uL; Monocyte% 8.1 % (0-10); NRBC Flagged by Analyzer 0 % (0-5); Neutrophil # 8.52 X10^3/uL (2.7-7.7); Neutrophil % 71.6 % (47-70); POSITIVE COUNT YES; Platelet Count 229 K/mm3 (150-450); RBC Distribution Width CV 14.6 % (11.6-14.6); RBC Distribution Width SD 50.7 fl (35.1-43.9); Red Blood Count 3.78 M/mm3 (4.2-5.4); White Blood Count 11.9 K/mm3 (4.4-11.0)
[2022-07-27 17:49] LABS: Differential Indicated SCAN CRITERIA MET
[2022-07-27 18:28] LABS: Platelet Estimate ADEQUATE (ADEQ)
[2022-07-27 18:29] LABS: Red Cell Morphology NORM C+C NORMAL (NORM C&C)
== END | disposition home or self-care (01) ==
LOC: POLAB3 13:36 → RAD 15:24
PROVIDERS: PCP Family Medicine Geriatric Medicine; Referring Provider Family Medicine Geriatric Medicine; Visit Provider Family Medicine Geriatric Medicine
DX: I10 Essential (primary) hypertension (principal); E11.9 Type 2 diabetes mellitus without complications; E55.9 Vitamin D deficiency, unspecified; R05.9 Cough, unspecified
CPT/HCPCS: 36415; 71046; 80053; 82306; 84443; 85025

== ENCOUNTER → 2022-08-06 | Outpatient (CLI) | payer MEDICARE, OTHER, SELFPAY ==
--- NOTE | 2022-08-06 10:05 | CDU_ITS ---
Reason For Study: Stenosis Rt. Velocities/BP Lt. Velocities/BP Prox CCA 106.9/24.5 cm/sec. Prox CCA 104.7/22.5 cm/sec. Mid CCA 72.9/23.4 cm/sec. Mid CCA 90/24.3 cm/sec. Dist CCA 72.9/17.9 cm/sec. Dist CCA 101/18.8 cm/sec. Prox ICA 69.6/16.8 cm/sec. Prox ICA 119.3/22.5 cm/sec. Mid ICA 89.4/32.2 cm/sec. Mid ICA 61.7/18.2 cm/sec. Dist ICA 67.4/23.4 cm/sec. Dist ICA 95.5/26.1 cm/sec. Rt. ICA/CCA = 1.23. Lt. ICA/CCA = 1.18. Prox ECA 78.4/8 cm/sec. Prox ECA 119.3/13.3 cm/sec. Rt. Vert. 41/10.2 cm/sec. Lt. Vert. 49.4/13.5 cm/sec. Right Extracranial There is intimal thickening but no significant atherosclerotic plaque noted in the right common carotid artery. There is heterogeneous, irregular atherosclerotic plaque noted in the right internal carotid artery. There is intimal thickening but no significant atherosclerotic plaque noted in the right external carotid artery. Antegrade flow is noted in the right vertebral artery. Left Extracranial There is intimal thickening but no significant atherosclerotic plaque noted in the left common carotid artery. There is intimal thickening but no significant atherosclerotic plaque noted in the left internal carotid artery. There is heterogeneous, irregular atherosclerotic plaque noted in the left external carotid artery. Antegrade flow is noted in the left vertebral artery. Procedure Carotid Duplex [id number]. This is a Carotid Duplex examination using B-mode, color flow and specral Doppler. Technically difficult exam due to patient sitting up. VL/Carotid Duplex Ultrasound Interpretation Summary Technically difficult examination Minimal irregular plaque at the proximal right internal carotid artery with les s than 50% stenosis Less than 50% stenosis right external carotid artery Intimal thickening at the proximal left internal carotid artery with tortuosity noted. Less than 50% stenosis of the left internal carotid artery Less than 50% stenosis left external carotid artery Patent and antegrade vertebral arteries bilaterally Ordering Physician: Corby Heller Chi Referring Physician: Corby Heller Chi Performed By: Danika Michael RVT
== END | disposition home or self-care (01) ==
LOC: CVS 10:03
PROVIDERS: PCP Family Medicine Geriatric Medicine; Visit Provider Family Medicine Geriatric Medicine
DX: I65.23 Occlusion and stenosis of bilateral carotid arteries (principal)
CPT/HCPCS: 93880

== ENCOUNTER → 2022-12-17 | Outpatient (CLI) | payer MEDICARE, OTHER, SELFPAY ==
[2022-12-17 16:58] LABS: Absolute Lymphocyte Count 2.09 X10^3/uL (0.83-4.51); Absolute Neutrophil Count 5.8 X10^3/uL (2.0-7.7); Basophil# 0.07 X10^3/uL; Basophil% 0.8 % (0-1); Eosinophil# 0.31 X10^3/uL; Eosinophils% 3.4 % (0-5); Hematocrit 39.5 % (37-47); Hemoglobin 12.6 g/dL (12.0-15.0); Lymphocyte # 2.09 X10^3/ul (0.83-4.51); Lymphocyte % 23.2 % (19-41); Mean Corp Hgb Conc 31.9 g/dL (32-36); Mean Corpuscular Hgb 30.5 pg (27.0-32.0); Mean Corpuscular Volume 95.6 fL (81-99); Mean Platelet Vol. 9.7 fl (6.2-12.0); Monocyte# 0.68 X10^3/uL; Monocyte% 7.6 % (0-10); NRBC Flagged by Analyzer 0 % (0-5); Neutrophil # 5.81 X10^3/uL (2.7-7.7); Neutrophil % 64.6 % (47-70); Platelet Count 239 K/mm3 (150-450); RBC Distribution Width CV 13.9 % (11.6-14.6); RBC Distribution Width SD 48.5 fl (35.1-43.9); Red Blood Count 4.13 M/mm3 (4.2-5.4)
[2022-12-17 17:35] LABS: ALB/GLOB Ratio 0.6 RATIO (0.9-2.4); AST(SGOT) 25 U/L (15-37); Alanine Aminotransfer ALT/SGPT 22 U/L (13-56); Albumin, Serum 3.3 g/dL (3.2-5.0); Alkaline Phosphatase 71 U/L (45-117); Anion Gap 10 (5-15); BUN 23 mg/dL (7-18); BUN/Creat Ratio 25.5 RATIO (10-20); Calcium,Total 10.6 mg/dL (8.5-10.1); Chloride 103 mmol/L (98-107); EST Glomerular Filtration Rate 65 mL/min (>60); Est Glom Filt Rate - Afr Amer 79 mL/min (>60); Globulin 5.1 g/dL (2.2-4.2); Glucose 135 mg/dL (74-106); Protein, Total 8.4 g/dL (6.4-8.2); Sodium Level 139 mmol/L (136-145); Thyroid Stim Hormone (TSH) 3.57 uIU/mL (0.358-3.74)
[2022-12-17 18:50] LABS: Vitamin D,25 Hydroxy 47.7 ng/mL
== END | disposition home or self-care (01) ==
LOC: POLAB3 14:45
PROVIDERS: PCP Family Medicine Geriatric Medicine; Visit Provider Family Medicine Geriatric Medicine
DX: E55.9 Vitamin D deficiency, unspecified (principal); E11.9 Type 2 diabetes mellitus without complications; I10 Essential (primary) hypertension
CPT/HCPCS: 36415; 80053; 82306; 84443; 85025

== ENCOUNTER → 2023-01-21 | Outpatient (CLI) | payer MEDICARE, OTHER, SELFPAY ==
[2023-01-21 15:32] LABS: Absolute Lymphocyte Count 1.96 X10^3/uL (0.83-4.51); Absolute Neutrophil Count 5.1 X10^3/uL (2.0-7.7); Basophil# 0.07 X10^3/uL; Basophil% 0.9 % (0-1); Eosinophil# 0.23 X10^3/uL; Eosinophils% 2.9 % (0-5); Hematocrit 38.4 % (37-47); Hemoglobin 12.1 g/dL (12.0-15.0); Lymphocyte # 1.96 X10^3/ul (0.83-4.51); Lymphocyte % 24.5 % (19-41); Mean Corp Hgb Conc 31.5 g/dL (32-36); Mean Corpuscular Hgb 30.3 pg (27.0-32.0); Mean Corpuscular Volume 96.2 fL (81-99); Mean Platelet Vol. 9.5 fl (6.2-12.0); Monocyte# 0.61 X10^3/uL; Monocyte% 7.6 % (0-10); NRBC Flagged by Analyzer 0 % (0-5); Neutrophil # 5.05 X10^3/uL (2.7-7.7); Neutrophil % 63.1 % (47-70); Platelet Count 257 K/mm3 (150-450); RBC Distribution Width CV 14.6 % (11.6-14.6); RBC Distribution Width SD 51.6 fl (35.1-43.9); Red Blood Count 3.99 M/mm3 (4.2-5.4)
[2023-01-21 15:58] LABS: Vitamin D,25 Hydroxy 48.3 ng/mL
[2023-01-21 16:01] LABS: ALB/GLOB Ratio 0.6 RATIO (0.9-2.4); AST(SGOT) 30 U/L (15-37); Alanine Aminotransfer ALT/SGPT 22 U/L (13-56); Albumin, Serum 2.9 g/dL (3.2-5.0); Alkaline Phosphatase 73 U/L (45-117); Anion Gap 5 (5-15); BUN 17 mg/dL (7-18); Calcium,Total 9.3 mg/dL (8.5-10.1); Chloride 104 mmol/L (98-107); Creatinine, Serum 0.94 mg/dL (0.55-1.02); EST Glomerular Filtration Rate 62 mL/min (>60); Est Glom Filt Rate - Afr Amer 75 mL/min (>60); Globulin 4.8 g/dL (2.2-4.2); Glucose 220 mg/dL (74-106); Potassium 3.8 mmol/L (3.5-5.1); Protein, Total 7.7 g/dL (6.4-8.2); Sodium Level 137 mmol/L (136-145); Thyroid Stim Hormone (TSH) 3.09 uIU/mL (0.358-3.74)
== END | disposition home or self-care (01) ==
LOC: POLAB3 14:55
PROVIDERS: PCP Family Medicine Geriatric Medicine; Visit Provider Family Medicine Geriatric Medicine
DX: E55.9 Vitamin D deficiency, unspecified (principal); E11.65 Type 2 diabetes mellitus with hyperglycemia; I10 Essential (primary) hypertension
CPT/HCPCS: 36415; 80053; 82306; 84443; 85025

== ENCOUNTER → 2023-03-18 | Outpatient (CLI) | payer MEDICARE, OTHER, SELFPAY ==
--- NOTE | 2023-03-18 14:34 | RAD_ITS ---
STUDY: XR Abdomen 1 View 03/18/2023 2:38 PM REASON FOR EXAM: Female, 73 years old. ABDOMINAL PAIN ABD PAIN TECHNIQUE: XR Abdomen 1 View COMPARISON: None FINDINGS: Normal visualized lung bases. There is no demonstrated free abdominal air. The visualized liver, spleen and kidneys are grossly normal in size and morphology. Normal soft tissue structures. There are diffuse degenerative changes of the visualized lumbar spine. RAD/Abdomen Single View IMPRESSION: There are no acute findings. Electronically Signed: John Brown MD at 15:48 EDT ,
[2023-03-18 15:46] LABS: Absolute Lymphocyte Count 2.27 X10^3/uL (0.83-4.51); Absolute Neutrophil Count 4.9 X10^3/uL (2.0-7.7); Basophil# 0.07 X10^3/uL; Basophil% 0.8 % (0-1); Eosinophil# 0.26 X10^3/uL; Eosinophils% 3.1 % (0-5); Hemoglobin 11.7 g/dL (12.0-15.0); Lymphocyte # 2.27 X10^3/ul (0.83-4.51); Lymphocyte % 27.3 % (19-41); Mean Corp Hgb Conc 31.6 g/dL (32-36); Mean Corpuscular Hgb 30.6 pg (27.0-32.0); Mean Corpuscular Volume 96.9 fL (81-99); Mean Platelet Vol. 9.9 fl (6.2-12.0); Monocyte# 0.73 X10^3/uL; Monocyte% 8.8 % (0-10); NRBC Flagged by Analyzer 0 % (0-5); Neutrophil # 4.93 X10^3/uL (2.7-7.7); Neutrophil % 59.4 % (47-70); Platelet Count 221 K/mm3 (150-450); RBC Distribution Width CV 14.6 % (11.6-14.6); RBC Distribution Width SD 51.7 fl (35.1-43.9); Red Blood Count 3.82 M/mm3 (4.2-5.4); White Blood Count 8.3 K/mm3 (4.4-11.0)
[2023-03-18 16:38] LABS: ALB/GLOB Ratio 0.7 RATIO (0.9-2.4); AST(SGOT) 33 U/L (15-37); Alanine Aminotransfer ALT/SGPT 26 U/L (13-56); Albumin, Serum 3.1 g/dL (3.2-5.0); Alkaline Phosphatase 72 U/L (45-117); Anion Gap 4 (5-15); BUN 23 mg/dL (7-18); Calcium,Total 9.2 mg/dL (8.5-10.1); Chloride 105 mmol/L (98-107); Creatinine, Serum 0.79 mg/dL (0.55-1.02); EST Glomerular Filtration Rate 75 mL/min (>60); Est Glom Filt Rate - Afr Amer 91 mL/min (>60); Globulin 4.4 g/dL (2.2-4.2); Glucose 143 mg/dL (74-106); Potassium 4.4 mmol/L (3.5-5.1); Protein, Total 7.5 g/dL (6.4-8.2); Sodium Level 139 mmol/L (136-145)
== END | disposition home or self-care (01) ==
LOC: RAD 14:33
PROVIDERS: PCP Family Medicine Geriatric Medicine; Referring Provider Family Medicine Geriatric Medicine; Visit Provider Family Medicine Geriatric Medicine
DX: I10 Essential (primary) hypertension (principal); R10.9 Unspecified abdominal pain
CPT/HCPCS: 36415; 74018; 80053; 85025

== ENCOUNTER → 2023-04-21 | Outpatient (CLI) | payer MEDICARE, OTHER, SELFPAY ==
[2023-04-21 17:06] LABS: Absolute Lymphocyte Count 1.98 X10^3/uL (0.83-4.51); Absolute Neutrophil Count 5.6 X10^3/uL (2.0-7.7); Basophil# 0.07 X10^3/uL; Basophil% 0.8 % (0-1); Eosinophil# 0.24 X10^3/uL; Eosinophils% 2.8 % (0-5); Hematocrit 39.4 % (37-47); Hemoglobin 12.1 g/dL (12.0-15.0); Lymphocyte # 1.98 X10^3/ul (0.83-4.51); Lymphocyte % 23.1 % (19-41); Mean Corp Hgb Conc 30.7 g/dL (32-36); Mean Corpuscular Volume 97.8 fL (81-99); Monocyte# 0.69 X10^3/uL; Monocyte% 8.1 % (0-10); NRBC Flagged by Analyzer 0 % (0-5); Neutrophil # 5.57 X10^3/uL (2.7-7.7); Platelet Count 289 K/mm3 (150-450); RBC Distribution Width CV 14.2 % (11.6-14.6); RBC Distribution Width SD 50.4 fl (35.1-43.9); Red Blood Count 4.03 M/mm3 (4.2-5.4); White Blood Count 8.6 K/mm3 (4.4-11.0)
[2023-04-21 17:13] LABS: Vitamin D,25 Hydroxy 50.3 ng/mL
[2023-04-21 17:22] LABS: ALB/GLOB Ratio 0.6 RATIO (0.9-2.4); AST(SGOT) 28 U/L (15-37); Alanine Aminotransfer ALT/SGPT 24 U/L (13-56); Albumin, Serum 3.2 g/dL (3.2-5.0); Alkaline Phosphatase 78 U/L (45-117); Anion Gap 6 (5-15); BUN 21 mg/dL (7-18); BUN/Creat Ratio 23.9 RATIO (10-20); Chloride 105 mmol/L (98-107); Creatinine, Serum 0.88 mg/dL (0.55-1.02); EST Glomerular Filtration Rate 67 mL/min (>60); Est Glom Filt Rate - Afr Amer 81 mL/min (>60); Globulin 5.4 g/dL (2.2-4.2); Glucose 123 mg/dL (74-106); Potassium 4.2 mmol/L (3.5-5.1); Protein, Total 8.6 g/dL (6.4-8.2); Sodium Level 138 mmol/L (136-145); Thyroid Stim Hormone (TSH) 3.47 uIU/mL (0.358-3.74)
== END | disposition home or self-care (01) ==
PROVIDERS: PCP Family Medicine Geriatric Medicine; Visit Provider Family Medicine Geriatric Medicine
DX: E11.65 Type 2 diabetes mellitus with hyperglycemia (principal); I10 Essential (primary) hypertension; E55.9 Vitamin D deficiency, unspecified; N39.0 Urinary tract infection, site not specified
CPT/HCPCS: 36415; 80053; 82306; 84443; 85025; 87077; 87086; 87088; 87186

== ENCOUNTER → 2023-05-04 | Outpatient (CLI) | payer MEDICARE, OTHER, SELFPAY | END | disposition home or self-care (01) | LOC: POLAB3 14:51 | PROVIDERS: PCP Family Medicine Geriatric Medicine; Visit Provider Family Medicine Geriatric Medicine | DX: N39.0 Urinary tract infection, site not specified (principal) | CPT/HCPCS: 87086 ==

== ENCOUNTER 2023-06-25 13:39 | Inpatient (IN) | payer MEDICARE, OTHER, SELFPAY ==
[2023-06-25] VITALS (27 sets, daily range): BP systolic 82–158; BP diastolic 41–146; PULSE 98–142; RESP 12–42; TEMP 37.3–38.8; O2SAT 86–100; BMI 50.8; BMI 49.3
--- NOTE | 2023-06-25 14:50 | RAD_ITS ---
STUDY: X-RAY CHEST REASON FOR EXAM: Female, 73 years old. Cough, fever tachypnea TECHNIQUE: PA and lateral views of the chest. COMPARISON: Comparison is made with prior study dated July 27, 2022. FINDINGS: EKG electrodes are seen. Left lower lobe infiltrate. There is no demonstrated pleural abnormality. There is mild cardiac enlargement. Normal mediastinum and kim. Normal visualized pulmonary arteries. Normal visualized aortic arch and descending thoracic aorta. Normal visualized thoracic spine. Normal visualized ribs, clavicles, and shoulders. There is no demonstrated abnormality of the visualized soft tissue structures of the upper abdomen. RAD/Chest PA and Lateral IMPRESSION: Left lower lobe infiltrate. Electronically Signed: Slade Boyd MD at 15:22 EDT ,
[2023-06-25 15:09] LABS: Absolute Lymphocyte Count 0.71 X10^3/uL (0.83-4.51); Absolute Neutrophil Count 11.2 X10^3/uL (2.0-7.7); Basophil# 0.03 X10^3/uL; Basophil% 0.2 % (0-1); Hematocrit 32.5 % (37-47); Hemoglobin 10.4 g/dL (12.0-15.0); Lymphocyte # 0.71 X10^3/ul (0.83-4.51); Lymphocyte % 5.6 % (19-41); Mean Corpuscular Hgb 30.2 pg (27.0-32.0); Mean Corpuscular Volume 94.5 fL (81-99); Mean Platelet Vol. 9.9 fl (6.2-12.0); Monocyte# 0.63 X10^3/uL; NRBC Flagged by Analyzer 0 % (0-5); Neutrophil # 11.18 X10^3/uL (2.7-7.7); Neutrophil % 88.7 % (47-70); POSITIVE COUNT YES; Platelet Count 96 K/mm3 (150-450); RBC Distribution Width CV 15.3 % (11.6-14.6); RBC Distribution Width SD 53.1 fl (35.1-43.9); Red Blood Count 3.44 M/mm3 (4.2-5.4); White Blood Count 12.6 K/mm3 (4.4-11.0)
[2023-06-25 15:12] LABS: Differential Indicated SCAN CRITERIA MET
[2023-06-25 15:19] LABS: ALB/GLOB Ratio 0.6 RATIO (0.9-2.4); AST(SGOT) 29 U/L (15-37); Alanine Aminotransfer ALT/SGPT 19 U/L (13-56); Albumin, Serum 2.5 g/dL (3.2-5.0); Alkaline Phosphatase 51 U/L (45-117); Anion Gap 5 (5-15); BUN 28 mg/dL (7-18); BUN/Creat Ratio 17.3 RATIO (10-20); Calcium,Total 8.2 mg/dL (8.5-10.1); Chloride 98 mmol/L (98-107); Creatinine, Serum 1.62 mg/dL (0.55-1.02); EST Glomerular Filtration Rate 33 mL/min (>60); Est Glom Filt Rate - Afr Amer 40 mL/min (>60); Globulin 4.5 g/dL (2.2-4.2); Glucose 154 mg/dL (74-106); Potassium 3.6 mmol/L (3.5-5.1); Sodium Level 130 mmol/L (136-145)
[2023-06-25 15:31] LABS: Mucous, Urine 0 SEEN /hpf (<or=2+); Squamous Epithelial Cells - UA 0 SEEN /hpf (5-10)
[2023-06-25 15:35] LABS: Color, Urine Yellow (Yellow); Glucose, Dipstick Normal (Normal); Ketone-Dipstick 5 mg/dl (Negative); Leukocyte Esterase-Dipstick 500 /ul (Negative); Nitrite-Dipstick Positive (Negative); Occult Blood-Urine 250 /ul (Negative); Protein-Dipstick 100 mg/dl (Negative); Urine Clarity Cloudy (Clear); Urine Urobilinogen 1 mg/dl (Normal)
[2023-06-25 15:36] LABS: Urine Bilirubin Dipstick 1 mg/dL (Negative)
[2023-06-25 15:45] LABS: Bacteria 4+ /hpf (None Seen); Red Blood Cells-Urine 10-25 SEEN /hpf (0-5); White Blood Cells 50-100 SEEN /hpf (0-5)
[2023-06-25 15:48] LABS: Differential Comment SCANNED
--- NOTE | 2023-06-25 15:55 | EX.ED.DYSGE1 ---
HPI History of Present Illness Chief Complaint: Weakness Detail of Chief Complaint: Weakness, fever, cough and frequency Informant: patient and EMS Onset/Context/Timing Onset: Days Context: Sudden Onset Timing: Intermittent and Waxes and wanes Quality: See HPI narrative Location: Respiratory and as well as generalized Current Severity: Mild Maximum Severity: Moderate Worsened by: Lack of energy and fatigue Relieved by: Nothing Associated Symptoms Associated Symptoms: Documented temperature to 103 ?F Narrative Narrative: Patient is a 73-year-old woman. She has a past medical history of urinary tract infection, hypothyroidism and hypercholesterolemia. She presents because of fever, cough, frequency and generalized weakness for the past several days. Patient is not a good informant. She does endorse nausea she denies vomiting even though her blouse is stained with what appears to be emesis. She denies headache, visual, ocular auditory symptoms. She does report a cough. The cough is nonproductive. She denies chest discomfort. She denies orthopnea or PND. She denies abdominal pain. She endorses nausea without vomiting or diarrhea. She admits to frequency without dysuria or hematuria. She denies rash. She denies joint pain or muscle pain. Prior similar symptoms: No Recent Illness/Hospitalization: No PFSH PFSH Medical History Anemia Anxiety Asthma Depression Diabetes Fibromyalgia Hypertension Hypothyroidism Kidney stones Osteoarthritis Thrombocytopenia Home Medications albuterol sulfate 90 mcg/actuation aerosol inhaler 1 - 2 puff inhalation Q6H PRN PRN Asthma 12/07/16 [History Last Taken Unknown] fluticasone propionate 50 mcg/actuation nasal spray,suspension 2 spray NASAL DAILY allergies 12/07/16 [History Last Taken 04/29/21] citalopram 20 mg tablet 20 mg PO DAILY 04/26/21 [History Last Taken 04/29/21] ropinirole 0.5 mg tablet 0.5 mg PO QHS RLS 04/26/21 [History Last Taken 04/28/21] fluticasone propionate 44 mcg/actuation HFA aerosol inhaler (Flovent HFA) 1 puff inhalation DAILY breathing 04/29/21 [History Last Taken 04/29/21] levothyroxine 25 mcg tablet 25 mcg PO DAILY thyroid 04/29/21 [History Last Taken 04/29/21] lovastatin 40 mg tablet 40 mg PO QHS cholesterol 04/29/21 [History Last Taken 04/28/21] potassium chloride 10 mEq capsule,extended release 20 meq PO DAILY supplement 04/29/21 [History Last Taken 04/29/21] prednisone 50 mg tablet 50 mg PO DAILY #4 tabs 07/12/22 [Rx Last Taken Unknown] Allergy/AdvReac Type Severity Reaction Status Date / Time cephalexin monohydrate Allergy Swelling Verified 06/25/23 13:46 [From Keflex] ibuprofen Allergy Swelling Verified 06/25/23 13:46 oxaprozin [From Daypro] Allergy Swelling Verified 06/25/23 13:46 tramadol HCl [From Ultram] Allergy Swelling Verified 06/25/23 13:46 celecoxib [From Celebrex] AdvReac DIZZY AND Verified 06/25/23 13:46 HURTS AROUND MY LIVER Social History Smoking Status: Never smoker ROS ROS ED Constitutional Constitutional ED: Reports chills, fever(s) and sweats; Denies subjective or weight loss Eyes Eyes: Denies blurry vision, change in vision or diplopia ENT ENT ED: Denies ear pain, rhinorrhea or sore throat Cardiovascular Cardiovascular: Denies chest pain, orthopnea, palpitations or paroxysmal nocturnal dyspnea Respiratory/Chest Respiratory/Chest: Reports cough and dyspnea; Denies dyspnea on exertion, orthopnea, paroxysmal nocturnal dyspnea or sputum Gastrointestinal Gastrointestinal: Reports nausea; Denies abdominal pain, diarrhea, melena or vomiting Genitourinary Genitourinary ED: Reports urinary frequency; Denies dysuria or hematuria Musculoskeletal Musculoskeletal: Denies arthralgias or myalgias Integumentary Denies abscess or rash Neurologic Neurologic: Reports weakness; Denies headache(s) Endocrine Endocrinology: Denies cold intolerance or heat intolerance Hematologic/Lymphatic Hematologic/Lymphatic: Reports systems reviewed and no addt'l complaints, except as documented EXAM Physical Exam Const Vital Signs: 06/25/23 13:43 06/25/23 13:45 06/25/23 13:45 Temperature 99.1 F 99.1 F Temperature Source Oral Oral Pulse Rate 106 H 105 H 103 H Respiratory Rate 33 H 36 H 34 H Respiratory Effort Respiratory Pattern Blood Pressure 111/58 L 135/41 H 135/41 H Blood Pressure Mean 75 72 72 Pulse Ox 94 92 93 Oxygen Delivery Method Room Air Room Air Room Air Oxygen Flow Rate (L/min) 06/25/23 13:47 06/25/23 14:34 06/25/23 15:08 Temperature 99.5 F H Temperature Source Oral Pulse Rate 105 H 105 H Respiratory Rate 24 H 22 H Respiratory Effort Short of Breath Labored Respiratory Pattern Tachypnea Blood Pressure 158/146 H 106/53 L Blood Pressure Mean 150 70 Pulse Ox 90 94 Oxygen Delivery Method Room Air Nasal Cannula Oxygen Flow Rate (L/min) 1.5 06/25/23 14:45 06/25/23 15:42 06/25/23 15:53 Temperature Temperature Source Pulse Rate 105 H 102 H Respiratory Rate 26 H 30 H Respiratory Effort Respiratory Pattern Blood Pressure 117/64 140/53 H Blood Pressure Mean 81 82 Pulse Ox 90 96 95 Oxygen Delivery Method Room Air Nasal Cannula Nasal Cannula Oxygen Flow Rate (L/min) 1.5 1.5 Positive well nourished, well developed and unkempt Constitutional Narrative: Patient appears ill but not toxic. General Appearance ED: unkempt, well developed, NAD and pallor; Negative for cyanotic or diaphoretic HEENT Reports dry mucous membranes HEENT Narrative: Head is normocephalic and atraumatic. Ears normal. TMs normal. Uvula midline. There is no erythema exudate the posterior pharynx. No septal deviation hematoma or discharge noted Mouth ED: Yes dry mucous membranes Mouth: dry mucous membranes Eyes PERRL and EOMs intact bilaterally General Eye ED: Negative for pale conjunctiva or scleral icterus Neck no lymphadenopathy, supple and no JVD Chest Wall inspection of chest normal and palpation of chest normal Resp normal respiratory effort and No clear to auscultation bilaterally Auscultation: rales right base Cardio regular rhythm, S1 normal heart sound, S2 normal heart sound and no murmurs Rate: tachycardic GI normal to inspection, nondistended, normoactive bowel sounds, non-tender and non-distended; Negative for hepatosplenomegaly Auscultation: hypoactive bowel sounds Palpation: soft Back/Spine no CVA tenderness Extremity normal to inspection General Extremety ED: Negative for edema or tenderness General Extremity: Negative for edema Neuro oriented x3 and CN's II-XII intact bilaterally Sensorium / Orientation: alert Psych mental status grossly normal Appearance: unkempt Skin no rashes or lesions noted, no wounds and No skin turgor normal General Skin Exam: pallor; Negative for jaundice MDM MDM MDM Narrative Medical decision making narrative: With tachycardia, tachypnea fever concern patient is septic. Uncertain whether this is respiratory or urologic etiology. Sepsis work-up was initiated. Because of the cough chest x-ray was obtained. Because of her complaint of frequency cath urine was obtained. Clinically she appears anemic since she is pale. Conjunctive a may be slightly pink at best. Patient does have 3 SIRS criteria with source. She does not have by definition endorgan dysfunction she does have evidence of acute kidney injury however. Her lactate is borderline. Lab Data Attestation: I reviewed the patient's lab results. Lab results narrative: White count is elevated 12.6 with 88 7 segs no. Patient is anemic with an H&H of 10.4 and 32.5 with normal sees creatinine is elevated at 1.62. This is doubled from baseline. BUN is elevated 28. BUN to creatinine ratio is elevated. Glucose is elevated with normal CO2 and gap. Urine is concern infection. Blood cultures and urine culture was sent. Because of patient's allergies she was treated with levofloxacin. Will call hospitalist for admission. Labs: Laboratory Results - last 24 hr 06/25/23 06/25/23 14:49 15:29 WBC 12.6 H RBC 3.44 L Hgb 10.4 L Hct 32.5 L MCV 94.5 MCH 30.2 MCHC 32.0 RDW Std Deviation 53.1 H RDW Coeff of [place] 15.3 H Plt Count 96 L MPV 9.9 Immature Gran % (Auto) 0.500 Neut % (Auto) 88.7 H Lymph % (Auto) 5.6 L Gilliam % (Auto) 5.0 Eos % (Auto) 0.0 Baso % (Auto) 0.2 Absolute Neuts (auto) 11.2 H Absolute Lymphs (auto) 0.71 L Nucleated RBC % 0 Differential Comment SCANNED Sodium 130 L Potassium 3.6 Chloride 98 Carbon Dioxide 27.0 Anion Gap 5 BUN 28 H Creatinine 1.62 H Estim Creat Clear Calc 24.10 Est GFR (MDRD) Af Amer 40 L Est GFR (MDRD) Non-Af 33 L BUN/Creatinine Ratio 17.3 Glucose 154 H Lactic Acid 2.0 Calcium 8.2 L Total Bilirubin 0.90 AST 29 ALT 19 Alkaline Phosphatase 51 Total Protein 7.0 Albumin 2.5 L Globulin 4.5 H Albumin/Globulin Ratio 0.6 L Urine Color Yellow Urine Clarity Cloudy Urine pH 5.0 Ur Specific [place] 1.020 Urine Protein 100 H Urine Glucose (UA) Normal Urine Ketones 5 H Urine Occult Blood 250 H Urine Nitrite Positive H Urine Bilirubin 1 H Urine Urobilinogen 1 H Ur Leukocyte Esterase 500 H Urine RBC 10-25 SEEN Urine WBC 50-100 SEEN Ur Squamous Epith Cells 0 SEEN Urine Bacteria 4+ Urine Mucus 0 SEEN Radiography Diagnostic Testing: Clinical Impression(s) from Imaging Studies Chest X-Ray 06/25/23 14:50 IMPRESSION: Left lower lobe infiltrate. Electronically Signed: Slade Boyd MD at 15:22 EDT , EKG Initial EKG: Attestation: I personally reviewed and interpreted this EKG as follows: Interpretation: Sinus Tachycardia (Rate is 103. DE interval is 198 ms. Cures duration 82 ms. QT duration 3 to 34 ms. [place] is normal. There are premature supraventricular complexes noted. Voltage is low. There is nonspecific ST-T wave changes noted as well) Management Discussion w/another healthcare provider: Hospitalist (Hospitalist was paged to admit patient) Treatment and Re-Evaluation :: Patient was informed of her results and need for admission. Discharge Plan Dx/Rx/DC Orders Clinical Impression: CARA (acute kidney injury), Complicated urinary tract infection, Sepsis without acute organ dysfunction, Sinus tachycardia by electrocardiogram, Dehydration, mild Disposition Disposition: Acute Care [facility]
--- NOTE | 2023-06-25 16:17 | PCM.HP.STD ---
HPI - General General Date of Admission: 06/25/23 Date of Service: 06/25/23 Chief Complaint: Weakness/cough/fever/urinary frequency HPI Narrative EDUAR GOMEZ, is a 73 F who presented to the emergency department at [facility] on 06/25/2023 complaining of generalized weakness, fever, cough, and urinary frequency that had been going on since 06/22/2023. She also reports that she has had decreased p.o. intake including food and fluids, fevers, general malaise, cough, nasal congestion, nausea, vomiting, and loose stool. She states that she has been having such significant generalized weakness that she has been able to take a shower in the last couple days. Her cough is nonproductive. She reports lower right-sided abdominal pain and does have a history of kidney stones. She denied any dysuria or hematuria with her frequency but she notes she has a history of UTIs and typically her presentation is frequency. Vital signs on presentation show a temperature of 99.1 with a Tmax of 99.5 in the emergency department, heart rate 106, blood pressures have been anywhere from 106-142 systolic over 41-68 diastolic, with respiratory rate anywhere from 22-36 and oxygen saturations were initially 94% on room air but she did desat to 90% on room air and was placed on 1-1/2 L nasal cannula which improved her saturations to 94%. Her CBC demonstrated a white count of 12.6 with a stable hemoglobin at 11.4 and a new thrombocytopenia with a platelet count of 96,000. Her differential showed a 88% neutrophilia. Her chemistry panel showed hyponatremia with a sodium of 130, all the other electrolytes were normal. Her BUN was elevated at 28 with a serum creatinine of 1.62 which is markedly above her baseline of 0.8-1.0. Her LFTs are normal. Her lactic acid was 2.0. Her chest x-ray shows a left lower lobe insult pulse rate however on physical exam her right lower lobe had crackles and scattered wheeze. Initial EKG showed some mild sinus tachycardia but was otherwise unremarkable In the emergency department she received IV antibiotics. I asked them to monitor her there until antibiotics infused to ensure that she did not develop hypotension as if she does she will require admission to the ICU for pending sepsis however again she does not meet sepsis criteria based on her may 3 requirement for her insurance. PFSH Medical History Anemia Anxiety Asthma COVID-19 Depression Diabetes Fibromyalgia Foot arch pain Hypertension Hypothyroidism Kidney stones Osteoarthritis Thrombocytopenia Home Medications albuterol sulfate 90 mcg/actuation aerosol inhaler 1 - 2 puff inhalation Q6H PRN PRN Asthma 12/07/16 [History Last Taken Unknown] fluticasone propionate 50 mcg/actuation nasal spray,suspension 2 spray NASAL DAILY allergies 12/07/16 [History Last Taken 06/22/23] citalopram 20 mg tablet 20 mg PO DAILY DEPRESSION 04/26/21 [History Last Taken 06/22/23] fluticasone propionate 44 mcg/actuation HFA aerosol inhaler (Flovent HFA) 1 puff inhalation DAILY breathing 04/29/21 [History Last Taken 06/22/23] levothyroxine 25 mcg tablet 25 mcg PO DAILY thyroid 04/29/21 [History Last Taken 06/22/23] lovastatin 40 mg tablet 40 mg PO QHS cholesterol 04/29/21 [History Last Taken 06/22/23] potassium chloride 10 mEq capsule,extended release 20 meq PO DAILY supplement 04/29/21 [History Last Taken 06/22/23] echinacea 500 mg capsule 500 mg PO DAILY SUPPLEMENT 06/25/23 [History Last Taken 06/22/23] pioglitazone 30 mg tablet 30 mg PO DAILY DM 06/25/23 [History Last Taken 06/22/23] ropinirole 2 mg tablet 2 mg PO QHS RLS 06/25/23 [History Last Taken 06/22/23] Allergy/AdvReac Type Severity Reaction Status Date / Time cephalexin monohydrate Allergy Swelling Verified 06/25/23 13:46 [From Keflex] ibuprofen Allergy Swelling Verified 06/25/23 13:46 oxaprozin [From Daypro] Allergy Swelling Verified 06/25/23 13:46 tramadol HCl [From Ultram] Allergy Swelling Verified 06/25/23 13:46 celecoxib [From Celebrex] AdvReac DIZZY AND Verified 06/25/23 13:46 HURTS AROUND MY LIVER Family History (Updated 06/25/23 @ 16:[address] Clementine Prieto DO) Other Diabetes Hypertension Social History (Updated 06/25/23 @ 16:[address] Clementine Conner, DO) household members: none housing: house Smoking Status: Never smoker alcohol intake: never substance use type: does not use ROS Constitutional Constitutional: Reports anorexia, chills, fatigue, fever(s), malaise and weakness; Denies change in weight, night sweats or other Eyes Eyes: Denies blurry vision, change in eye color, change in vision, discharge from eye(s), double vision, erythema, eye pain, loss of vision or other ENT HEENT: Reports nasal congestion, nasal discharge and sinus pressure; Denies abnormal hearing, dysphagia, ear pain, epistaxis, headache(s), hearing loss, post nasal drip, sore throat or other Cardiovascular Cardiovascular: Reports dyspnea on exertion and rapid heart rate; Denies chest pain, claudication, edema, lightheadedness, orthopnea, palpitations, paroxysmal nocturnal dyspnea, syncope or other Respiratory/Chest Respiratory/Chest: Reports cough and shortness of breath with exertion; Denies dyspnea, excessive phlegm production, hemoptysis, productive cough, shortness of breath at rest, wheezing or other Gastrointestinal Gastrointestinal: Reports loose stools, nausea and vomiting; Denies abdominal pain, coffee ground emesis, constipation, diarrhea, dyspepsia, hematemesis, hematochezia, melena or other Genitourinary Genitourinary: Reports urinary frequency; Denies burning urination, difficulty urinating, dysuria, hematuria, nocturia, urinary hesitancy, urinary incontinence, urinary urgency or other Musculoskeletal Musculoskeletal: Reports back pain, joint pain and joint stiffness; Denies arthralgias, joint swelling, myalgias, neck pain or other Neurologic Neurologic: Denies abnormal gait, abnormal speech, confusion, disequilibrium, dizziness, focal weakness, headache(s), numbness, paresthesias, seizure-like activity, seizures, syncope, tingling, tremor(s) or other Psychiatric Psychiatric: Denies anxiety, depression, homicidal ideation, suicidal ideation or other Endocrine Endocrinology: Denies change in body appearance, cold intolerance, excessive sweating, heat intolerance, polydipsia, polyuria or other Hematologic/Lymphatic Hematologic/Lymphatic: Denies anemia, easy bleeding, easy bruising, lymphadenopathy or other Allergic/Immunologic Allergic/Immunologic: Denies rhinitis, hives, eczemia, asthma or other Vital Signs Vital Signs Vital Signs: 06/25/23 13:43 06/25/23 13:45 06/25/23 13:45 Temperature 99.1 F 99.1 F Temperature Source Oral Oral Pulse Rate 106 H 105 H 103 H Respiratory Rate 33 H 36 H 34 H Respiratory Effort Respiratory Pattern Blood Pressure 111/58 L 135/41 H 135/41 H Blood Pressure Mean 75 72 72 Pulse Ox 94 92 93 Oxygen Delivery Method Room Air Room Air Room Air Oxygen Flow Rate (L/min) 06/25/23 13:47 06/25/23 14:34 06/25/23 15:08 Temperature 99.5 F H Temperature Source Oral Pulse Rate 105 H 105 H Respiratory Rate 24 H 22 H Respiratory Effort Short of Breath Labored Respiratory Pattern Tachypnea Blood Pressure 158/146 H 106/53 L Blood Pressure Mean 150 70 Pulse Ox 90 94 Oxygen Delivery Method Room Air Nasal Cannula Oxygen Flow Rate (L/min) 1.5 06/25/23 14:45 06/25/23 15:42 06/25/23 15:53 Temperature Temperature Source Pulse Rate 105 H 102 H Respiratory Rate 26 H 30 H Respiratory Effort Respiratory Pattern Blood Pressure 117/64 140/53 H Blood Pressure Mean 81 82 Pulse Ox 90 96 95 Oxygen Delivery Method Room Air Nasal Cannula Nasal Cannula Oxygen Flow Rate (L/min) 1.5 1.5 06/25/23 16:09 06/25/23 16:12 06/25/23 16:15 Temperature 99.3 F H 99.3 F H 99.3 F H Temperature Source Oral Oral Oral Pulse Rate 106 H 105 H 106 H Respiratory Rate 27 H 26 H 26 H Respiratory Effort Respiratory Pattern Blood Pressure 142/64 H 142/64 H 142/68 H Blood Pressure Mean 90 90 92 Pulse Ox 95 94 94 Oxygen Delivery Method Nasal Cannula Nasal Cannula Nasal Cannula Oxygen Flow Rate (L/min) 1.5 1.5 1.5 Weight Weight: 126.2 kg Body Mass Index (BMI) 50.8 Physical Exam Const alert, oriented x3 and well nourished; Negative for no apparent distress, average body habitus or healthy appearing Constitutional Narrative: Ill-appearing, morbidly obese, white female lying in bed, nursing at bedside trying to get labs, a pillars ill but not toxic General Appearance: cooperative HEENT normocephalic, head/scalp atraumatic, hearing grossly normal bilaterally and moist oral mucous membranes HEENT Narrative: Dentition is poor, Mallampati is 3, no thrush Eyes PERRL, EOMs intact bilaterally and conjunctivae normal Eyes Narrative: No scleral icterus Neck no lymphadenopathy and supple Neck Narrative: Neck is short and thick, trachea is midline, no thyroid enlargement noted Resp no retractions, no use of accessory muscles and No clear to auscultation bilaterally Resp Narrative: Crackles and scattered wheezing noted on the right greater at the base and the apex, left lung is clear, mildly tachypneic Auscultation: crackles; Negative for rhonchi or wheezes Cardio regular rhythm, S1 normal heart sound, S2 normal heart sound, no murmurs, no rub, no gallops and no clicks Cardio Narrative: Mild tachycardia already a GI normal to inspection, nondistended, normoactive bowel sounds and soft to palpation GI Narrative: Tenderness with palpation of the right lower quadrant that starts laterally and moves toward the midline Extremity no clubbing, cyanosis or edema Extremity Narrative: Pedal pulses are 2+ Skin No no rashes or lesions noted, no wounds, No skin turgor normal, no jaundice, no petechiae and no mottling Skin Narrative: Significant intertriginous yeast Neuro oriented x3, CN's II-XII intact bilaterally, moves all extremities and no focal motor deficits Neuro Narrative: Significant generalized weakness noted but no focal deficits on exam Speech: speech normal Psych Psych Narrative: Affect is flattened patient appears tired which is appropriate for the current setting and clinical situation Results Lab / Micro Data 06/25/23 14:49 06/25/23 14:49 Labs: Laboratory Results - last 24 hr 06/25/23 14:49: WBC 12.6 H, RBC 3.44 L, Hgb 10.4 L, Hct 32.5 L, MCV 94.5, MCH 30.2, MCHC 32.0, RDW Std Deviation 53.1 H, RDW Coeff of Cecil 15.3 H, Plt Count 96 L, MPV 9.9, Immature Gran % (Auto) 0.500, Neut % (Auto) 88.7 H, Lymph % (Auto) 5.6 L, Howard % (Auto) 5.0, Eos % (Auto) 0.0, Baso % (Auto) 0.2, Absolute Neuts (auto) 11.2 H, Absolute Lymphs (auto) 0.71 L, Nucleated RBC % 0, Differential Comment SCANNED, Sodium 130 L, Potassium 3.6, Chloride 98, Carbon Dioxide 27.0, Anion Gap 5, BUN 28 H, Creatinine 1.62 H, Estim Creat Clear Calc 24.10, Est GFR (MDRD) Af Amer 40 L, Est GFR (MDRD) Non-Af 33 L, BUN/Creatinine Ratio 17.3, Glucose 154 H, Lactic Acid 2.0, Calcium 8.2 L, Total Bilirubin 0.90, AST 29, ALT 19, Alkaline Phosphatase 51, Total Protein 7.0, Albumin 2.5 L, Globulin 4.5 H, Albumin/Globulin Ratio 0.6 L 06/25/23 15:29: Urine Color Yellow, Urine Clarity Cloudy, Urine pH 5.0, Ur Specific [place] 1.020, Urine Protein 100 H, Urine Glucose (UA) Normal, Urine Ketones 5 H, Urine Occult Blood 250 H, Urine Nitrite Positive H, Urine Bilirubin 1 H, Urine Urobilinogen 1 H, Ur Leukocyte Esterase 500 H, Urine RBC 10-25 SEEN, Urine WBC 50-100 SEEN, Ur Squamous Epith Cells 0 SEEN, Urine Bacteria 4+, Urine Mucus 0 SEEN Radiology Impression Chest X-Ray 06/25/23 14:50 IMPRESSION: Left lower lobe infiltrate. Electronically Signed: Slade Boyd MD at 15:22 EDT , Assessment & Plan Assessment/Plan (1) Left lower lobe pneumonia: (2) Dehydration, mild: (3) Complicated urinary tract infection: (4) Sinus tachycardia by electrocardiogram: (5) CARA (acute kidney injury): (6) Hyponatremia: (7) Leukocytosis: (8) Intertriginous candidiasis: (9) Generalized weakness: PLAN: Plan Complicated UTI -Patient does not meet sepsis criteria per sepsis 3 guidelines at this time however I am highly concerned that after antibiotics she will become hypotensive and her status will change so I will admit her to the ICU -We will give 30 cc/kg body weight fluid bolus -Previous cultures have reviewed and have been fairly pansensitive -I did obtain a CT of the abdomen pelvis and she does have bilateral coarse renal calcifications with obstruction on the left and changes consistent with obstruction showing hydronephrosis and perinephritic stranding and trace fluid, no masses in the bowel but diffuse diverticulosis is noted with no reticulitis, and bibasilar pleural parenchymal thickening and atelectasis -We will consult Dr. Caldera --> discussed case with her -Cultures are pending -We will place on broad-spectrum antibiotics with ceftriaxone and azithromycin to cover both her urine and her lungs -We will antibiotics according to cultures - We will admit to ICU as it appears her pressures are trending downward with antibiotics being given Community-acquired pneumonia -Currently requiring 1.5 L -Infiltrate noted on imaging -Ceftriaxone/azithromycin for now -Allergy to Keflex as noted however its reported out only is swelling -Check strep pneumo and Legionella antigens -Check sputum culture if positive -Patient has had cough and upper respiratory symptoms so we will get COVID and flu as well as respiratory viral panel CARA secondary to dehydration -Baseline serum creatinine appears to be between 0.8 and 1.0 -1.62 on presentation -Hydration as above -Avoid nephrotoxins -Repeat BMP in a.m. Hyponatremia -Suspect hypovolemic hyponatremia secondary to decreased oral intake -IV fluids and repeat lab in a.m. -Check TSH Acute thrombocytopenia -Mild -Suspect related to acute infection -Monitor trend while hospitalized Sinus tachycardia -Likely infectious response -We will monitor but should improve as infection gets treated Leukocytosis -Secondary above -Repeat CBC in a.m. Severe intertrigo yeast -Nystatin powder DM-2 -Hold home Actos -SSI -Accu-Cheks -Cardiac/carb control diet Hyperlipidemia -Continue home statin Hypothyroidism -Continue home levothyroxine -Check TSH History of nephrolithiasis -Treatment as above -We will need outpatient urology follow-up after discharge Depression/anxiety -Continue home medications Morbid obesity -BMI is 50.9 -Complicates treatment, prognosis, outcomes -Recommend weight loss DVT prophylaxis -Subcu heparin 3 times daily CODE STATUS -Full code is verified on admission Sepsis Attestation Sepsis Attestation: Sepsis Ruled Out Date exam was performed: 06/25/23 Time exam was performed: 16:36 Supportive Findings: While patient meets criteria for Medicare requirements with SIRS and source of infection for sepsis she does not meet criteria per Sep 3 guidelines and therefore sepsis has been ruled out Charges/Coding Visit Charges Inpatient E&M: 63530 Init Hosp L3
--- NOTE | 2023-06-25 16:44 | ED.RN ---
THIS RN ATTEMPTED TO HANG PT LEVAQUIN. PT STATES I WAS ON LEVAQUIN 6 MONTHS AGO AND WAS DISCONTINUED. THIS RN ASKED PT WHY. PT STATES SHE IS UNSURE. PT REQUESTS THIS RN CALL [facility] AND SISTER. DR. TERRELL NOTIFIED. PER DR. TERRELL, IF PT CANNOT IDENTIFY ALLERGIC REACTION, ATB SHOULD BE STARTED. THIS RN CALLED [facility] AND PT SISTER, KARLA. NEITHER COULD TELL THIS RN WHY PT WOULD HAVE BEEN DISCONTINUED. PER [facility]IST, PT PICKED UP ENTIRE DOSE OF LEVAQUIN AT THE BEGINNING OF APRIL AND ARE UNSURE WHY SHE WOULD HAVE BEEN DISCONTINUED. PT EDUCATED TO NOTIFY RN IMMEDIATELY OF ANY S/S OF ALLERGIC REACTION.
--- NOTE | 2023-06-25 16:45 | CT_ITS ---
INDICATION: Abd pain EXAMINATION: CT ABDOMEN AND PELVIS WITHOUT CONTRAST - CT Abdomen And Pelvis W/O Contrast Injection TECHNIQUE: Helically acquired images were obtained of the abdomen and pelvis without oral or IV contrast. A radiation dose optimization technique was used for this scan. IV Contrast dosage and agent: None. Oral contrast: None. RADIATION DOSAGE (If Supplied By Facility): CTDIvol = ( 24.18 ) mGy, DLP = ( 1310.83 ) mGycm COMPARISON: : No relevant prior comparison study available FINDINGS: LOWER CHEST: Bibasilar atelectasis and pleural thickening. No cardiomegaly or pericardial effusion. LIVER: The liver has normal configuration and density given the limitation of noncontrast exam. No focal mass. GALLBLADDER AND BILIARY TREE: The gallbladder is distended, no intraluminal calcifications. No gallbladder distension or wall edema. No intra- or extrahepatic biliary ductal dilation. PANCREAS: No focal cystic or solid mass. SPLEEN: Normal size without focal cystic or solid mass. ADRENAL GLANDS: No nodules. KIDNEYS AND URETERS: Kidneys have normal configuration or perinephric soft tissue stranding is present greater on the LEFT than RIGHT. Multiple bilateral calcifications are present. There are multiple calcifications in the proximal RIGHT ureter with the largest measuring 11 x 12 x 18 mm. Additional coarse calcifications on the RIGHT extending into the major and minor calyces, with the largest measuring 14 x 11 x 25 mm. There are obstructive changes on the LEFT with hydronephrosis/caliectasis and perinephric soft tissue stranding. The remaining ureters have normal appearance bilaterally.. PERITONEUM: No ascites or free air. No other fluid collection. BOWEL: Large and small bowel loops have normal configuration. No evidence of bowel obstruction. Scattered diverticula are present without evidence diverticulitis. No stomach or bowel distension. No focal inflammatory change. The appendix is not positively identified. LYMPH NODES: No enlarged mesenteric or retroperitoneal lymph nodes. VESSELS: Aorta is non-dilated. URINARY BLADDER: Unremarkable. REPRODUCTIVE ORGANS: No pelvic masses. ABDOMINAL WALL: Postoperative changes of anterior abdominal wall repair. Redundant abdominal wall is present with diffuse muscular laxity however no sofiya hernia. BONES: No lytic or blastic abnormality. CT/Abdomen/Pelvis without Cont IMPRESSION: 1. Bilateral coarse renal calcifications, and several tandem calcifications in the proximal LEFT ureter with the largest measuring 11 x 12 x 18 mm. Postobstructive changes are present on the LEFT including hydronephrosis and perinephric stranding and trace fluid. 2. No masses or bowel obstruction. no masses or bowel obstruction. Diffuse diverticulosis is noted. No evidence of diverticulitis 3. The appendix is not adequately visualized. 4. No evidence of cholelithiasis. 5. Bibasilar pleural-parenchymal thickening, and atelectasis without evidence of consolidation or effusion.. Electronically Signed: Tahir Viveros MD at 17:33 EDT ,
[2023-06-25] MEDS: levoFLOXacin IV 750 MG/150 ML BAG 100 MG IV (16:52)
--- NOTE | 2023-06-25 17:03 | ED.RN ---
PT DENIES ANY S/S OF ALLERGIC REACTION. IV SITE PATENT/INFUSING. SKIN P/W/D. PT DENIES ANY PAIN AT IV SITE.
--- NOTE | 2023-06-25 17:18 | ED.RN ---
PT DENIED S/S OF ALLERGIC REACTION. PT DENIES ANY PAIN AT IV SITE. IV SITE PATENT/DRAINING. SKIN P/W/D.
--- NOTE | 2023-06-25 17:25 | ED.RN ---
PT DENIES S/S OF ALLERGIC REACTION. PT SKIN P/W/D. IV SITE PATENT/DRAINING. NO S/S INFILTRATION.
--- NOTE | 2023-06-25 17:46 | ED.RN ---
Addendum entered by Alley Aguirre 06/25/23 18:03: PER DR. NORIEGA, PT NEEDS TO STAY IN ER UNTIL ATB COMPLETE. PT EDUCATED. DENIES S/S OF ALLERGIC REACTION. Original Note: PT DENIES S/S ALLERGIC REACTION. PT TAKEN TO FLOOR AT [id number]. PT A&OX3.
--- NOTE | 2023-06-25 18:40 | ED.RN ---
PER PT GRAND DAUGHTER, PT IS NOT EATING PROPER MEALS, ONLY ONCE A DAY AND AN OCCASIONAL CANDY BAR.
[2023-06-25 18:52] LABS: Reflex Lactate? Y
[2023-06-25] MEDS: Azithromycin 500 MG in Dextrose 5%-Water (250mL Bag) 250 ML 250 MG IV (20:02)
[2023-06-25] MEDS: Lactated Ringers 1,000 ML 999 ML IV ×2 (20:06→21:21)
[2023-06-25] MEDS: 0.9% Normal Saline (1000mL) 1,000 ML 70 ML IV (20:07)
--- NOTE | 2023-06-25 20:09 | PCM.CONS.GEN ---
Assessment & Plan Assessment/Plan (1) Kidney stones: (2) Leukocytosis: (3) Complicated urinary tract infection: (4) CARA (acute kidney injury): PLAN: Plan Cystoscopy with bilateral ureteral stent insertion, informed consent has been obtained from the patient. I have also spoken with the patient's Sister Kaia. Harris catheter and repeat urine culture Continue ICU care Continue antibiotic coverage HPI Consult Data Date of Consult: 06/25/23 HPI Narrative Reason for Consultation: Obstructing ureteral calculus with urosepsis HPI Narrative: EDUAR GOMEZ, is a 73 F who presented to the emergency room today. She has been having fevers to 101.5 at home for the last 3 days also associated with nausea, vomiting and abdominal pain. She has a longstanding history of nephrolithiasis that has been untreated. A CT scan was obtained revealing bilateral large stones with the left ureteral ones being obstructive with significant left perinephric stranding. The right stone is also significant in size and if moves, will be detrimental to her medical condition. She has also had urinary tract infections in the past. [facility]LY [facility] Medical History (Updated 06/25/23 @ 20:[address] Marie Caldera MD) Anemia Anxiety Asthma COVID-19 Depression Diabetes Fibromyalgia Foot arch pain Hypertension Hypothyroidism Kidney stones Osteoarthritis Thrombocytopenia Home Medications albuterol sulfate 90 mcg/actuation aerosol inhaler 1 - 2 puff inhalation Q6H PRN PRN Asthma 12/07/16 [History Last Taken Unknown] fluticasone propionate 50 mcg/actuation nasal spray,suspension 2 spray NASAL DAILY allergies 12/07/16 [History Last Taken 06/22/23] citalopram 20 mg tablet 20 mg PO DAILY DEPRESSION 04/26/21 [History Last Taken 06/22/23] fluticasone propionate 44 mcg/actuation HFA aerosol inhaler (Flovent HFA) 1 puff inhalation DAILY breathing 04/29/21 [History Last Taken 06/22/23] levothyroxine 25 mcg tablet 25 mcg PO DAILY thyroid 04/29/21 [History Last Taken 06/22/23] lovastatin 40 mg tablet 40 mg PO QHS cholesterol 04/29/21 [History Last Taken 06/22/23] potassium chloride 10 mEq capsule,extended release 20 meq PO DAILY supplement 04/29/21 [History Last Taken 06/22/23] echinacea 500 mg capsule 500 mg PO DAILY SUPPLEMENT 06/25/23 [History Last Taken 06/22/23] pioglitazone 30 mg tablet 30 mg PO DAILY DM 06/25/23 [History Last Taken 06/22/23] ropinirole 2 mg tablet 2 mg PO QHS RLS 06/25/23 [History Last Taken 06/22/23] Allergy/AdvReac Type Severity Reaction Status Date / Time cephalexin monohydrate Allergy Swelling Verified 06/25/23 13:46 [From Keflex] ibuprofen Allergy Swelling Verified 06/25/23 13:46 oxaprozin [From Daypro] Allergy Swelling Verified 06/25/23 13:46 tramadol HCl [From Ultram] Allergy Swelling Verified 06/25/23 13:46 celecoxib [From Celebrex] AdvReac DIZZY AND Verified 06/25/23 13:46 HURTS AROUND MY LIVER Family History Other Diabetes Hypertension Social History household members: none housing: house Smoking Status: Never smoker alcohol intake: never substance use type: does not use ROS Constitutional Constitutional: Reports chills, fever(s), lethargy, poor appetite and weakness Eyes Eyes: Reports systems reviewed and no addt'l complaints, except as documented ENT HEENT: Reports systems reviewed and no addt'l complaints, except as documented Cardiovascular Cardiovascular: Reports abdominal pain, nausea and vomiting; Denies chest pain Respiratory/Chest Respiratory/Chest: Reports cough Gastrointestinal Gastrointestinal: Reports abdominal pain, nausea and vomiting Genitourinary Genitourinary: Reports abdominal discomfort; Denies flank pain Integumentary Integumentary: Reports systems reviewed and no addt'l complaints, except as documented Neurologic Neurologic: Reports systems reviewed and no addt'l complaints, except as documented Psychiatric Psychiatric: Reports systems reviewed and no addt'l complaints, except as documented Endocrine Endocrinology: Reports systems reviewed and no addt'l complaints, except as documented Hematologic/Lymphatic Hematologic/Lymphatic: Reports systems reviewed and no addt'l complaints, except as documented Allergic/Immunologic Allergic/Immunologic: Reports systems reviewed and no addt'l complaints, except as documented Physical Exam Const alert and oriented x3 General Appearance: in distress Positive for mild and respiratory HEENT normocephalic, head/scalp atraumatic, hearing grossly normal bilaterally, external ears normal and external nose normal Eyes General Eye: normal appearance of both eyes Neck supple General: trachea midline Chest inspection of chest normal Chest: symmetrical chest wall rise Resp Effort and Inspection: able to speak in complete sentences, symmetric chest movement and tachypneic Cardio Rate: tachycardic GI soft to palpation, non-tender and non-distended no CVA tenderness Back/Spine no CVA tenderness Skin no jaundice and no petechiae Neuro oriented x3, CN's II-XII intact bilaterally and moves all extremities Psych mental status grossly normal Lab / Micro Data 06/25/23 14:49 06/25/23 14:49 Labs: Laboratory Results - last 24 hr 06/25/23 14:49: WBC 12.6 H, RBC 3.44 L, Hgb 10.4 L, Hct 32.5 L, MCV 94.5, MCH 30.2, MCHC 32.0, RDW Std Deviation 53.1 H, RDW Coeff of Cecil 15.3 H, Plt Count 96 L, MPV 9.9, Immature Gran % (Auto) 0.500, Neut % (Auto) 88.7 H, Lymph % (Auto) 5.6 L, Vilas % (Auto) 5.0, Eos % (Auto) 0.0, Baso % (Auto) 0.2, Absolute Neuts (auto) 11.2 H, Absolute Lymphs (auto) 0.71 L, Nucleated RBC % 0, Differential Comment SCANNED, Sodium 130 L, Potassium 3.6, Chloride 98, Carbon Dioxide 27.0, Anion Gap 5, BUN 28 H, Creatinine 1.62 H, Estim Creat Clear Calc 24.10, Est GFR (MDRD) Af Amer 40 L, Est GFR (MDRD) Non-Af 33 L, BUN/Creatinine Ratio 17.3, Glucose 154 H, Lactic Acid 2.0, Calcium 8.2 L, Total Bilirubin 0.90, AST 29, ALT 19, Alkaline Phosphatase 51, Total Protein 7.0, Albumin 2.5 L, Globulin 4.5 H, Albumin/Globulin Ratio 0.6 L 06/25/23 15:29: Urine Color Yellow, Urine Clarity Cloudy, Urine pH 5.0, Ur Specific Lennox 1.020, Urine Protein 100 H, Urine Glucose (UA) Normal, Urine Ketones 5 H, Urine Occult Blood 250 H, Urine Nitrite Positive H, Urine Bilirubin 1 H, Urine Urobilinogen 1 H, Ur Leukocyte Esterase 500 H, Urine RBC 10-25 SEEN, Urine WBC 50-100 SEEN, Ur Squamous Epith Cells 0 SEEN, Urine Bacteria 4+, Urine Mucus 0 SEEN Micro: Microbiology 06/25/23 16:30 Nasal Secretion SARS-CoV-2 & FLU Antigen (Rapid) - Final SARS-CoV-2 (COVID 19) Radiology Impression Chest X-Ray 06/25/23 14:50 IMPRESSION: Left lower lobe infiltrate. Electronically Signed: Slade Boyd MD at 15:22 EDT , Abdomen/Pelvis CT 06/25/23 16:45 IMPRESSION: 1. Bilateral coarse renal calcifications, and several tandem calcifications in the proximal LEFT ureter with the largest measuring 11 x 12 x 18 mm. Postobstructive changes are present on the LEFT including hydronephrosis and perinephric stranding and trace fluid. 2. No masses or bowel obstruction. no masses or bowel obstruction. Diffuse diverticulosis is noted. No evidence of diverticulitis 3. The appendix is not adequately visualized. 4. No evidence of cholelithiasis. 5. Bibasilar pleural-parenchymal thickening, and atelectasis without evidence of consolidation or effusion.. Electronically Signed: Tahir Viveros MD at 17:33 EDT ,
--- NOTE | 2023-06-25 20:18 | PCM.OPRPT ---
Report of Operation Date of Procedure: 06/25/23 Pre-Operative Diagnosis: Left obstructing ureteral calculus, right renal calculus, urinary tract infection, acute renal injury Post-Operative Diagnosis: Same Surgery/Procedure Performed:: Cystoscopy with bilateral ureteral stent insertion Surgeon: Marie Caldera Type of Anesthesia: MAC Description of Procedure: The patient is a 73-year-old female who presented to the emergency room with fever, evidence of urinary tract infection and findings of stone with obstruction. She is now coming to the operating room for cystoscopy with insertion of bilateral ureteral stents. Informed consent has been obtained. The patient was taken to the operating room and placed on the operating room table. Anesthesia monitored the head, neck, airway, IV access and vital signs throughout the case. Once anesthesia was appropriately administered, the patient was placed into dorsolithotomy position was prepped and draped in usual sterile fashion. A 0.035 Glidewire was inserted into the left renal pelvis as seen on fluoroscopy. A 6 Tajik 24 cm JJ stent was placed over the wire with good positioning in the renal pelvis as well as the urinary bladder. This process was then repeated on the patient's right side. At this time the cystoscope was removed and a Harris catheter was inserted and the balloon was inflated with 10 cc of water. Urine was sent for repeat culture. The patient was awakened and taken to the PACU. There were no complications during this procedure. Grafts/Implants Used: 6 x 24 JJ stent x2 Complications None Admit VTE Documentation VTE Present on Admission: Yes VTE Mechan Device Prophylaxis: SCD's VTE Pharm Prophylaxis ordered?: Yes
[2023-06-25 21:00] LABS: International Normalized Ratio 1.4; Prothrombin Time (Protime)PT. 16.9 SECONDS (11.7-14.9)
[2023-06-25 21:01] LABS: Partial Thromboplast Time 36.1 Seconds (24.1-36.2)
[2023-06-25 21:12] LABS: Lactic Acid 1.4 mmol/L (0.4-1.9)
[2023-06-25] MEDS: Nystatin Powder 15gm Bottle 1 APPLIC TOPICAL (21:42)
[2023-06-25] MEDS: Heparin Injection (Vial) 5,000 UNIT/ML VIAL 5000 UNIT SC (21:42)
[2023-06-25 22:26] LABS: Allen Test Positive; Base Excess -6 mmol/L (-2 to +2); Bicarbonate 20.8 mmol/L (22-26); Blood Gas Specimen Type ART; Mode Not entered; O2 Delivery Device NRB; PO2 67 mmHG (75-100); SITE R Radial; SO2 91 % (95-99); Total Carbon Dioxide 22 mmol/L; pCO2 43.2 mmHg (35-45); pH 7.29 (7.35-7.45)
[2023-06-25] MEDS: Meropenem 500 MG in 0.9% Normal Saline (50mL MB+) 50 ML 100 MG IV (22:28)
[2023-06-25] MEDS: 0.9% Saline Lock 10 ML Syringe IV (22:28)
--- NOTE | 2023-06-25 22:45 | RAD_ITS ---
INDICATION: shortness of breath EXAMINATION/TECHNIQUE: X-RAY - XR Chest 1 View COMPARISON: Earlier same date at 2:59 PM, 06/25/2023 FINDINGS: LIFE-SUPPORT AND LINES: 1. None HEART AND VESSELS: Cardiac silhouette is unchanged. LUNGS AND PLEURAL SPACES: There has been interval development of diffuse interstitial prominence throughout the RIGHT lung,, as well as LEFT perihilar and infrahilar region. No consolidation. No effusion. No pulmonary mass is noted. MEDIASTINUM AND HILAR REGIONS: No masses adenopathy noted. No areas of calcification. Visualized upper airway is normal in position. BONY ELEMENTS: No acute bony changes noted. RAD/Chest 1 View (Portable) IMPRESSION: 1. Worsening diffuse interstitial infiltrate throughout the RIGHT lung and at the LEFT lung base consistent with multi lobar infiltrate/pneumonia. 2. No evidence of congestive failure. Electronically Signed: Tahir Viveros MD at 23:12 EDT ,
[2023-06-25] MEDS: Furosemide 40 MG/4 ML Vial IV (22:53)
[2023-06-26] VITALS (56 sets, daily range): BP systolic 50–142; BP diastolic 28–105; PULSE 90–129; RESP 12–49; TEMP 36.6–38.9; O2SAT 88–100; BMI 50.5
[2023-06-26] MEDS: 0.9% Saline Lock 10 ML Syringe IV ×3 (00:48→15:30)
[2023-06-26] MEDS: Norepinephrine 8 MG in 0.9% Normal Saline (250mL Bag) 242 ML 9.4 MG CONT INF (00:48)
--- NOTE | 2023-06-26 01:46 | RAD_ITS ---
INDICATION: line placement EXAMINATION/TECHNIQUE: X-RAY - XR Chest 1 View COMPARISON: Chest x-ray from a few hours prior FINDINGS: LINES/DEVICES: Right jugular central line placed with tip at lower SVC. LUNGS: Stable scattered hazy pulmonary opacities on the right and stable left basilar pulmonary opacities. No sizable pleural effusion. No pneumothorax detected. MEDIASTINUM AND CARDIOVASCULAR STRUCTURES: Heart size within normal limits for imaging technique. Mediastinal contours unremarkable. BONES AND SOFT TISSUES: Degenerative changes and mild scoliotic curvature along spine. RAD/CXR for Line Placement IMPRESSION: Stable right greater than left bilateral pulmonary opacity changes. Electronically Signed: Alonso Fields MD at 2:30 EDT ,
[2023-06-26] MEDS: Vancomycin HCl 2,000 MG in 0.9% Normal Saline (500mL Bag) 500 ML 250 MG IV (01:49)
[2023-06-26] MEDS: Phenylephrine 1 MG/10 ML SYRINGE 0.5 MG IV (01:50)
--- NOTE | 2023-06-26 02:02 | PCM.RX.CS ---
Consult Antibiotic Management Pharmacy has been consulted to manage selected antiobiotic: Vancomycin Type of Intervention Type of Consult: New start Labs Labs: Sodium 130 mmol/L (136-145) L 06/25/23 14:49 Potassium 3.6 mmol/L (3.5-5.1) 06/25/23 14:49 Chloride 98 mmol/L (98-107) 06/25/23 14:49 Carbon Dioxide 27.0 mmol/L (21.0-32.0) 06/25/23 14:49 Anion Gap 5 (5-15) 06/25/23 14:49 BUN 28 mg/dL (7-18) H 06/25/23 14:49 Creatinine 1.62 mg/dL (0.55-1.02) H 06/25/23 14:49 Est GFR (MDRD) Af Amer 40 mL/min (>60) L 06/25/23 14:49 Est GFR (MDRD) Non-Af 33 mL/min (>60) L 06/25/23 14:49 BUN/Creatinine Ratio 17.3 RATIO (10-20) 06/25/23 14:49 Glucose 154 mg/dL (74-106) H 06/25/23 14:49 Microbiology Microbiology: Microbiology 06/25/23 15:29 Urine Catheter - Harris Legionella Antigen - Final 06/25/23 16:29 Mucosa - Nasopharyngeal Respiratory Panel (PCR) - Final 06/25/23 15:29 Urine Catheter - Harris Streptococcus pneumoniae Antigen (M - Final 06/25/23 16:30 Nasal Secretion SARS-CoV-2 & FLU Antigen (Rapid) - Final SARS-CoV-2 (COVID 19) Dosing Weight Weight used for dosin kg Estimated Creatinine Clearance Estimated Creatinine Clearance: 38 Goal Trough Goal Trough: 15-20 mcg/mL Pharmacy Plan for Drug Dosing Pharmacy Plan for Drug Dosing: Pharmacy Service will continue to monitor and adjust dosing as required. Follow-Up Labs Follow-Up Labs: Trough: Vancomycin Date/Time Labs Ordered Labs to be done on [date and time ordered]: 06/28/23 @0130
[2023-06-26] MEDS: Acetaminophen 325 MG Tablet 650 MG PO (02:11)
--- NOTE | 2023-06-26 02:29 | PCM.PN.BLA ---
Sepsis Attestation Sepsis Alert: Yes Sepsis Attestation: Agree w/Sepsis Date exam was performed: 06/26/23 Time exam was performed: 01:30 Possible Source of Sepsis: Pulmonary and Genitourinary Sepsis Organ Dysfunction Criteria Present: SBP < 90 mmHg or MAP < 65 mmHg Fluid Resuscitation Fluid Resuscitation ordered: 30 ml/kg fluid bolus ordered Reason for lesser fluid bolus:: Concern for fluid overload and Other (30 MLS per kilogram bolus was ordered. However patient cannot tolerate oral as she had difficulty breathing and required BiPAP. She was given Lasix. She received about 1900 of normal saline.) Sepsis Note Date exam was performed: 06/26/23 Time exam was performed: 02:00 Sepsis Attestation: Sepsis re-evaluation was performed Response to fluids: Vasopressors started
--- NOTE | 2023-06-26 02:30 | NURSING ---
Dr. Cerda at bedside for central line placement d/t increasing pressor requirements. Pt unable to sign at this time, pt verbalized okay for line placement to MD and two RNs. R IJ TLC placed, pt tolerated well. CXR ordered.
[2023-06-26] MEDS: Vasopressin 20 UNITS in 0.9% Normal Saline (50mL Bag) 24 ML 3 UNITS CONT INF (02:51)
[2023-06-26 03:46] LABS: Absolute Neutrophil Count 19.9 X10^3/uL (2.0-7.7); Basophil# 0.12 X10^3/uL; Basophil% 0.5 % (0-1); Eosinophil# 0.25 X10^3/uL; Eosinophils% 1.1 % (0-5); Hematocrit 34.3 % (37-47); Hemoglobin 10.9 g/dL (12.0-15.0); Lymphocyte % 3.1 % (19-41); Mean Corp Hgb Conc 31.8 g/dL (32-36); Mean Corpuscular Hgb 29.7 pg (27.0-32.0); Mean Corpuscular Volume 93.5 fL (81-99); Mean Platelet Vol. 9.9 fl (6.2-12.0); Monocyte# 0.56 X10^3/uL; Monocyte% 2.5 % (0-10); NRBC Flagged by Analyzer 0 % (0-5); Neutrophil # 19.92 X10^3/uL (2.7-7.7); Neutrophil % 88.3 % (47-70); POSITIVE MORPHOLOGY YES; Platelet Count 111 K/mm3 (150-450); RBC Distribution Width CV 15.4 % (11.6-14.6); Red Blood Count 3.67 M/mm3 (4.2-5.4); White Blood Count 22.6 K/mm3 (4.4-11.0)
[2023-06-26 03:47] LABS: Differential Indicated SCAN CRITERIA MET
[2023-06-26 04:03] LABS: ALB/GLOB Ratio 0.5 RATIO (0.9-2.4); AST(SGOT) 73 U/L (15-37); Alanine Aminotransfer ALT/SGPT 32 U/L (13-56); Albumin, Serum 2.3 g/dL (3.2-5.0); Alkaline Phosphatase 66 U/L (45-117); Anion Gap 11 (5-15); BUN 29 mg/dL (7-18); BUN/Creat Ratio 17.3 RATIO (10-20); Chloride 100 mmol/L (98-107); Creatinine, Serum 1.68 mg/dL (0.55-1.02); EST Glomerular Filtration Rate 32 mL/min (>60); Est Glom Filt Rate - Afr Amer 38 mL/min (>60); Estimated Creatinine Clearance 23.24 ml/min; Globulin 4.6 g/dL (2.2-4.2); Glucose 233 mg/dL (74-106); Magnesium 1.3 mg/dL (1.6-2.6); Phosphorus 2.4 mg/dL (2.5-4.9); Potassium 3.6 mmol/L (3.5-5.1); Protein, Total 6.9 g/dL (6.4-8.2); Sodium Level 132 mmol/L (136-145)
[2023-06-26 04:51] LABS: Differential Comment SCANNED
[2023-06-26] MEDS: Magnesium Sulfate 4gm/100mL 4 GM/100 ML IV.SOLN. IV (05:08)
[2023-06-26] MEDS: Potassium Phosphate 40 MM in 0.9% Normal Saline (500mL Bag) 500 ML 62.5 MM IV (05:09)
[2023-06-26] MEDS: Heparin Injection (Vial) 5,000 UNIT/ML VIAL 5000 UNIT SC ×3 (05:09→21:38)
[2023-06-26] MEDS: Levothyroxine 25 MCG TABLET PO (05:12)
[2023-06-26 05:19] LABS: Probe Check PASS
[2023-06-26 05:21] LABS: M R Staph aureus DNA By PCR POSITIVE (Negative)
[2023-06-26] MEDS: Budesonide Respules 0.5 MG/2 ML AMPUL.NEB. INHALATION ×2 (07:23→19:29)
[2023-06-26] MEDS: Citalopram 20 MG Tablet PO (08:13)
[2023-06-26] MEDS: 0.9% Normal Saline (1000mL) 1,000 ML 70 ML IV ×2 (08:15→21:39)
--- NOTE | 2023-06-26 08:18 | EX.PCM.CONCC ---
Assessment & Plan Assessment/Plan (1) Septic shock: (2) Kidney stones: (3) CARA (acute kidney injury): PLAN: Plan RECOMMENDATIONS: 1. Continue empiric antibiotics pending sensitivities 2. Likely discontinue vancomycin tomorrow if no gram-positive on culture 3. Wean pressors as tolerated 4. BiPAP rescue if necessary 5. Hold on steroids and Remdesivir for now 6. Obtain echocardiogram IMPRESSIONS: 1. Septic shock secondary to gram-negative UTI with nephrolithiasis and obstruction Patient does have Gram negative rods in all blood cultures. Clinical suspicion for translocation of UTI following stent placement. Patient is on broad-spectrum antibiotics and appears to be tolerating this well. Continue to wean pressors as tolerated. Patient does have stents in place, but would likely require definitive therapy as an outpatient. Patient with fever, leukocytosis, hypotension and elevated creatinine 2. Acute hypoxic respiratory failure Unclear etiology at this time. Patient did test positive for COVID-19 and was noted to have a small infiltrate on chest x-ray. Patient is on broad-spectrum antibiotics. Hypoxia has been exacerbated in COVID-19 patients with fluid resuscitation. Patient reportedly is not on supplemental oxygen at baseline, but has been up as high as 9 to 10 L/min of nasal cannula oxygen. We will hold on any Decadron or remdesivir for now. Will obtain an echocardiogram to see if there is an element of CHF given hypoxia following fluid boluses. 3. Acute kidney injury Patient's baseline creatinine appears to be approximately 1 and has elevated as high as 1.68. Patient does have prerenal etiology. We will attempt to avoid nephrotoxins. Slow hydration is reasonable. No indication for renal replacement therapy at this time. 4. Thrombocytopenia/intertrigo/diabetes mellitus/hyperlipidemia/hypothyroidism/anxiety/depression/fibromyalgia/morbid obesity Complicates care, management, recovery and prognosis. No bleeding complications noted at this time, so will not be transfusing any platelets. Local care for intertrigo. We will have to watch blood sugars closely given variable p.o. intake and high cortisol stimulation given problem #1. TIME: 37 minutes critical care time spent addressing patient's septic shock, acute respiratory failure, acute kidney injury, review of all data and collaboration with care team HPI Consult Data Date of Consult: 06/26/23 HPI Narrative Reason for Consultation: Septic shock HPI Narrative: EDUAR GOMEZ is a 73 F, with past medical history listed below, who presents to [facility] 06/25/2023 secondary to fever, cough and generalized weakness for several days. Patient reportedly was a very poor historian, but did report nausea without vomiting despite signs that she may have had an emesis. In the ER, patient was noted to have a temperature of 99.5 ?F, but tachycardic at 106 bpm. Patient was normotensive at that time and requiring 2 L nasal cannula to maintain saturations. Patient has been tachypneic as high as 30 breaths/min. Patient was described as ill but not toxic. Laboratory data showed a white blood cell count of 12.6, hemoglobin 10.4 and platelets of 96. Chemistry showed an elevated bicarbonate of 27 with creatinine of 1.62 and a glucose of 154. Liver enzymes were relatively unremarkable, but UA was highly suggestive of a UTI. Chest x-ray showed a left lower lobe infiltrate. Despite not meeting all criteria for sepsis in the ER, there was significant concern for her hemodynamics so she was placed in the intensive care unit with antibiotics and a fluid bolus. Patient was also subsequently noted to have COVID-19 has been placed in respiratory isolation. A CT of the abdomen pelvis did show bilateral renal calcifications with obstruction, so urology was consulted. Patient ultimately went for stent placement and following had significant hypotension. Overnight, patient did have a central line placed and was initiated on Levophed. This made as high as 25 and there was orders for vasopressin that were never initiated. Patient also has had increased oxygen requirements up to 7 to 8 L to maintain saturations. There was discussion about intubation, but this was not performed. On my evaluation, patient was resting comfortably initially. Patient did have some mild wheezing, but upon wakening became very tachypneic without change in saturations. Patient denied any pain, but did state that she felt better than presentation. Patient denied any nausea. Review of systems otherwise negative from a constitutional, HEENT, respiratory, cardiovascular, GI, genitourinary, musculoskeletal, skin, neurologic, psychiatric and hematologic system unless stated above. [facility] Medical History Anemia Anxiety Asthma COVID-19 Depression Diabetes Fibromyalgia Foot arch pain Hypertension Hypothyroidism Kidney stones Osteoarthritis Thrombocytopenia Home Medications albuterol sulfate 90 mcg/actuation aerosol inhaler 1 - 2 puff inhalation Q6H PRN PRN Asthma 12/07/16 [History Last Taken Unknown] fluticasone propionate 50 mcg/actuation nasal spray,suspension 2 spray NASAL DAILY allergies 12/07/16 [History Last Taken 06/22/23] citalopram 20 mg tablet 20 mg PO DAILY DEPRESSION 04/26/21 [History Last Taken 06/22/23] fluticasone propionate 44 mcg/actuation HFA aerosol inhaler (Flovent HFA) 1 puff inhalation DAILY breathing 04/29/21 [History Last Taken 06/22/23] levothyroxine 25 mcg tablet 25 mcg PO DAILY thyroid 04/29/21 [History Last Taken 06/22/23] lovastatin 40 mg tablet 40 mg PO QHS cholesterol 04/29/21 [History Last Taken 06/22/23] potassium chloride 10 mEq capsule,extended release 20 meq PO DAILY supplement 04/29/21 [History Last Taken 06/22/23] echinacea 500 mg capsule 500 mg PO DAILY SUPPLEMENT 06/25/23 [History Last Taken 06/22/23] pioglitazone 30 mg tablet 30 mg PO DAILY DM 06/25/23 [History Last Taken 06/22/23] ropinirole 2 mg tablet 2 mg PO QHS RLS 06/25/23 [History Last Taken 06/22/23] Allergy/AdvReac Type Severity Reaction Status Date / Time cephalexin monohydrate Allergy Swelling Verified 06/25/23 13:46 [From Keflex] ibuprofen Allergy Swelling Verified 06/25/23 13:46 oxaprozin [From Daypro] Allergy Swelling Verified 06/25/23 13:46 tramadol HCl [From Ultram] Allergy Swelling Verified 06/25/23 13:46 celecoxib [From Celebrex] AdvReac DIZZY AND Verified 06/25/23 13:46 HURTS AROUND MY LIVER Family History Other Diabetes Hypertension Social History household members: none housing: house Smoking Status: Never smoker alcohol intake: never substance use type: does not use ROS ROS Narrative See HPI Physical Exam Const alert and oriented x3 General Appearance: in distress Positive for mild and respiratory (Once woken) HEENT normocephalic, head/scalp atraumatic, hearing grossly normal bilaterally, external ears normal and external nose normal Eyes PERRL, EOMs intact bilaterally, conjunctivae normal and no scleral icterus Neck supple Neck Narrative: Unable to assess JVD secondary to body habitus General: trachea midline and CVC in place Chest inspection of chest normal Chest: symmetrical chest wall rise Resp no use of accessory muscles Effort and Inspection: symmetric chest movement and tachypneic Auscultation: wheezes; Negative for rales or rhonchi Cardio S1 normal heart sound, S2 normal heart sound, no murmurs, no rub and no gallops Rate: tachycardic GI normal to inspection, nondistended, normoactive bowel sounds, soft to palpation, non-tender and non-distended Extremity General Extremity: edema; Negative for clubbing Skin no jaundice and no petechiae Neuro oriented x3, CN's II-XII intact bilaterally and moves all extremities Psych Activity / Motor Behavior: restless Mood & Affect: anxious Medical Records Data Attestation: I reviewed the patient's medical records Lab / Micro Data Attestation: I reviewed the patient's lab results. Lab results narrative: Recently called with positive blood cultures, gram-negative rods in all bottles 06/26/23 03:38 06/26/23 03:38 Labs: Laboratory Results - last 24 hr 06/25/23 14:49: WBC 12.6 H, RBC 3.44 L, Hgb 10.4 L, Hct 32.5 L, MCV 94.5, MCH 30.2, MCHC 32.0, RDW Std Deviation 53.1 H, RDW Coeff of Cecil 15.3 H, Plt Count 96 L, MPV 9.9, Immature Gran % (Auto) 0.500, Neut % (Auto) 88.7 H, Lymph % (Auto) 5.6 L, [place] % (Auto) 5.0, Eos % (Auto) 0.0, Baso % (Auto) 0.2, Absolute Neuts (auto) 11.2 H, Absolute Lymphs (auto) 0.71 L, Nucleated RBC % 0, Differential Comment SCANNED, Sodium 130 L, Potassium 3.6, Chloride 98, Carbon Dioxide 27.0, Anion Gap 5, BUN 28 H, Creatinine 1.62 H, Estim Creat Clear Calc 24.10, Est GFR (MDRD) Af Amer 40 L, Est GFR (MDRD) Non-Af 33 L, BUN/Creatinine Ratio 17.3, Glucose 154 H, Lactic Acid 2.0, Calcium 8.2 L, Total Bilirubin 0.90, AST 29, ALT 19, Alkaline Phosphatase 51, Total Protein 7.0, Albumin 2.5 L, Globulin 4.5 H, Albumin/Globulin Ratio 0.6 L 06/25/23 15:29: Urine Color Yellow, Urine Clarity Cloudy, Urine pH 5.0, Ur Specific [place] 1.020, Urine Protein 100 H, Urine Glucose (UA) Normal, Urine Ketones 5 H, Urine Occult Blood 250 H, Urine Nitrite Positive H, Urine Bilirubin 1 H, Urine Urobilinogen 1 H, Ur Leukocyte Esterase 500 H, Urine RBC 10-25 SEEN, Urine WBC 50-100 SEEN, Ur Squamous Epith Cells 0 SEEN, Urine Bacteria 4+, Urine Mucus 0 SEEN 06/25/23 20:20: PT 16.9 H, INR 1.4, APTT 36.1 06/25/23 20:25: Lactic Acid 1.4 06/26/23 03:38: WBC 22.6 H, RBC 3.67 L, Hgb 10.9 L, Hct 34.3 L, MCV 93.5, MCH 29.7, MCHC 31.8 L, RDW Std Deviation 53.0 H, RDW Coeff of Cecil 15.4 H, Plt Count 111 L, MPV 9.9, Immature Gran % (Auto) 4.500 H, Neut % (Auto) 88.3 H, Lymph % (Auto) 3.1 L, [place] % (Auto) 2.5, Eos % (Auto) 1.1, Baso % (Auto) 0.5, Absolute Neuts (auto) 19.9 H, Absolute Lymphs (auto) 0.70 L, Nucleated RBC % 0, Differential Comment SCANNED, Sodium 132 L, Potassium 3.6, Chloride 100, Carbon Dioxide 21.0, Anion Gap 11, BUN 29 H, Creatinine 1.68 H, Estim Creat Clear Calc 23.24, Est GFR (MDRD) Af Amer 38 L, Est GFR (MDRD) Non-Af 32 L, BUN/Creatinine Ratio 17.3, Glucose 233 H, Calcium 8.0 L, Phosphorus 2.4 L, Magnesium 1.3 L, Total Bilirubin 1.30 H, AST 73 H, ALT 32, Alkaline Phosphatase 66, Total Protein 6.9, Albumin 2.3 L, Globulin 4.6 H, Albumin/Globulin Ratio 0.5 L, MRSA (PCR) POSITIVE H Micro: Microbiology 06/25/23 16:05 Blood Culture (Wb) - Anticubital Left Blood Culture - Preliminary 06/25/23 16:33 Blood Culture (Wb) - Anticubital Left Blood Culture - Preliminary 06/25/23 15:29 Urine Catheter - Harris Legionella Antigen - Final 06/25/23 16:29 Mucosa - Nasopharyngeal Respiratory Panel (PCR) - Final 06/25/23 15:29 Urine Catheter - Harris Streptococcus pneumoniae Antigen (M - Final 06/25/23 16:30 Nasal Secretion SARS-CoV-2 & FLU Antigen (Rapid) - Final SARS-CoV-2 (COVID 19) ABG Data ABG results: ABG 06/25/23 22:23 Specimen Type ART Sample Site R Radial pH 7.29 L Bicarbonate Actual 20.8 L Total CO2 22 Base Excess -6 L O2 Saturation 91 L O2 % 15.0 ABG pCO2 43.2 ABG pO2 67 L Tuan Test Positive O2 Delivery Device NRB Vent Mode Not entered Attestation: I personally reviewed and interpreted this ABG as follows: (Combined respiratory and metabolic acidosis with increased AA gradient) Radiology Impression Chest X-Ray 06/25/23 14:50 IMPRESSION: Left lower lobe infiltrate. Electronically Signed: Slade Boyd MD at 15:22 EDT Reading Location ID and State: [facility] / [place] , Service support , Abdomen/Pelvis CT 06/25/23 16:45 IMPRESSION: 1. Bilateral coarse renal calcifications, and several tandem calcifications in the proximal LEFT ureter with the largest measuring 11 x 12 x 18 mm. Postobstructive changes are present on the LEFT including hydronephrosis and perinephric stranding and trace fluid. 2. No masses or bowel obstruction. no masses or bowel obstruction. Diffuse diverticulosis is noted. No evidence of diverticulitis 3. The appendix is not adequately visualized. 4. No evidence of cholelithiasis. 5. Bibasilar pleural-parenchymal thickening, and atelectasis without evidence of consolidation or effusion.. Electronically Signed: Tahir Viveros MD at 17:33 EDT , Chest X-Ray 06/25/23 22:45 IMPRESSION: 1. Worsening diffuse interstitial infiltrate throughout the RIGHT lung and at the LEFT lung base consistent with multi lobar infiltrate/pneumonia. 2. No evidence of congestive failure. Electronically Signed: Tahir Viveros MD at 23:12 EDT , Chest X-Ray 06/26/23 01:46 IMPRESSION: Stable right greater than left bilateral pulmonary opacity changes. Electronically Signed: Alonso Fields MD at 2:30 EDT , Charges/Coding Procedures Hospitalists Procedures: [id number] Critial Care 1st Hr
[2023-06-26] MEDS: Insulin Lispro 100 UNIT/ML INSULN.PEN SC ×3 (08:21→15:54)
[2023-06-26] MEDS: Fluticasone 0.05% 1 SPRAY NASAL.SRY 2 SPRAY NASAL (08:22)
[2023-06-26] MEDS: Nystatin Powder 15gm Bottle 1 APPLIC TOPICAL ×2 (08:23→21:38)
[2023-06-26] MEDS: CHLORHEXIDINE GLUC 2% CLOTH 1 EACH TOWELETTE TOPICAL (08:27)
--- NOTE | 2023-06-26 08:31 | ECHOD_ITS ---
Reason For Study: Dyspnea/SOB Procedure This was a limited 2D transthoracic echocardiogram. The study was technically difficult. Exam performed portable in ICU/CCU. The exam was abbreviated due to the COVID 19 protocol. Left Ventricle Normal size and thickness. Septal motion consistent with bundle branch block. The left ventricular ejection fraction is 45 %. Right Ventricle The right ventricle is not well visualized. Atria The left and right atria are normal. Mitral Valve Moderate mitral annular calcification. Mild (1+) mitral valve insufficiency. Tricuspid Valve Mild tricuspid valve insufficiency. Right ventricular systolic pressure estimated to be 45 mmHg. Aortic Valve The aortic valve is not well visualized in the short axis view. Pulmonic Valve The pulmonic valve is not well visualized. Great Vessels The aortic root is not well visualized. Pericardium/Pleural No pericardial effusion. MMode/2D Measurements & Calculations LVIDd: 4.6 cm IVSd: 0.74 cm LVIDs: 3.6 cm LVPWd: 1.1 cm FS: 22.3 % Doppler Measurements & Calculations TR max dawn: 274.3 cm/sec TR max P.1 mmHg ECHO/Echo Complete Interpretation Summary The study was technically difficult. The left ventricular ejection fraction is 45 %. Moderate mitral annular calcification. Mild (1+) mitral valve insufficiency. Mild tricuspid valve insufficiency. Right ventricular systolic pressure estimated to be 45 mmHg. Ordering Physician: Bertram Chatterjee Referring Physician: Corby Heller Chi Performed By: Emy Keller, ESHA, RVT
--- NOTE | 2023-06-26 08:36 | PN.HOSP_ITS ---
Subjective Subjective Had to be started on pressors support overnight after she had her stents placed Objective Data Objective Data Vital Signs: Vital Signs Temp Pulse Resp BP Pulse Ox O2 Del Method O2 Flow Rate 98.7 F 95 19 H 118/88 H 97 Nasal Cannula 7 06/26/23 04:00 06/26/23 07:20 06/26/23 07:20 06/26/23 07:00 06/26/23 07:20 06/26/23 07:20 06/26/23 07:20 FiO2 35 06/26/23 03:00 Oxygen Flow Rate (L/min) 7 Oxygen Delivery Method Nasal Cannula Weight: 276 lb 3.827 oz Body Mass Index (BMI) 50.5 Intake & Output: Intake and Output for Last 24 Hours 06/25/23 06/26/23 06/27/23 03:59 03:59 03:59 Intake Total 2366.40 / 2378.78 1689.64 / 1689.64 Output Total 250 / 250 100 / 100 Balance 2116.40 / 2128.78 1589.64 / 1589.64 Lab / Micro Data 06/26/23 03:38 06/26/23 03:38 Labs: Laboratory Results - last 24 hr 06/25/23 14:49: WBC 12.6 H, RBC 3.44 L, Hgb 10.4 L, Hct 32.5 L, MCV 94.5, MCH 30.2, MCHC 32.0, RDW Std Deviation 53.1 H, RDW Coeff of Cecil 15.3 H, Plt Count 96 L, MPV 9.9, Immature Gran % (Auto) 0.500, Neut % (Auto) 88.7 H, Lymph % (Auto) 5.6 L, [place] % (Auto) 5.0, Eos % (Auto) 0.0, Baso % (Auto) 0.2, Absolute Neuts (auto) 11.2 H, Absolute Lymphs (auto) 0.71 L, Nucleated RBC % 0, Differential Comment SCANNED, Sodium 130 L, Potassium 3.6, Chloride 98, Carbon Dioxide 27.0, Anion Gap 5, BUN 28 H, Creatinine 1.62 H, Estim Creat Clear Calc 24.10, Est GFR (MDRD) Af Amer 40 L, Est GFR (MDRD) Non-Af 33 L, BUN/Creatinine Ratio 17.3, Glucose 154 H, Lactic Acid 2.0, Calcium 8.2 L, Total Bilirubin 0.90, AST 29, ALT 19, Alkaline Phosphatase 51, Total Protein 7.0, Albumin 2.5 L, Globulin 4.5 H, Albumin/Globulin Ratio 0.6 L 06/25/23 15:29: Urine Color Yellow, Urine Clarity Cloudy, Urine pH 5.0, Ur Specific [place] 1.020, Urine Protein 100 H, Urine Glucose (UA) Normal, Urine Ketones 5 H, Urine Occult Blood 250 H, Urine Nitrite Positive H, Urine Bilirubin 1 H, Urine Urobilinogen 1 H, Ur Leukocyte Esterase 500 H, Urine RBC 10-25 SEEN, Urine WBC 50-100 SEEN, Ur Squamous Epith Cells 0 SEEN, Urine Bacteria 4+, Urine Mucus 0 SEEN 06/25/23 20:20: PT 16.9 H, INR 1.4, APTT 36.1 06/25/23 20:25: Lactic Acid 1.4 06/26/23 03:38: WBC 22.6 H, RBC 3.67 L, Hgb 10.9 L, Hct 34.3 L, MCV 93.5, MCH 29.7, MCHC 31.8 L, RDW Std Deviation 53.0 H, RDW Coeff of Cecil 15.4 H, Plt Count 111 L, MPV 9.9, Immature Gran % (Auto) 4.500 H, Neut % (Auto) 88.3 H, Lymph % (Auto) 3.1 L, [place] % (Auto) 2.5, Eos % (Auto) 1.1, Baso % (Auto) 0.5, Absolute Neuts (auto) 19.9 H, Absolute Lymphs (auto) 0.70 L, Nucleated RBC % 0, Differential Comment SCANNED, Sodium 132 L, Potassium 3.6, Chloride 100, Carbon Dioxide 21.0, Anion Gap 11, BUN 29 H, Creatinine 1.68 H, Estim Creat Clear Calc 23.24, Est GFR (MDRD) Af Amer 38 L, Est GFR (MDRD) Non-Af 32 L, BUN/Creatinine Ratio 17.3, Glucose 233 H, Calcium 8.0 L, Phosphorus 2.4 L, Magnesium 1.3 L, Total Bilirubin 1.30 H, AST 73 H, ALT 32, Alkaline Phosphatase 66, Total Protein 6.9, Albumin 2.3 L, Globulin 4.6 H, Albumin/Globulin Ratio 0.5 L, MRSA (PCR) POSITIVE H Micro: Microbiology 06/25/23 16:05 Blood Culture (Wb) - Anticubital Left Blood Culture - Preliminary 06/25/23 16:33 Blood Culture (Wb) - Anticubital Left Blood Culture - Preliminary 06/25/23 15:29 Urine Catheter - Harris Legionella Antigen - Final 06/25/23 16:29 Mucosa - Nasopharyngeal Respiratory Panel (PCR) - Final 06/25/23 15:29 Urine Catheter - Harris Streptococcus pneumoniae Antigen (M - Final 06/25/23 16:30 Nasal Secretion SARS-CoV-2 & FLU Antigen (Rapid) - Final SARS-CoV-2 (COVID 19) ABG Data ABG results: ABG 06/25/23 22:23 Specimen Type ART Sample Site R Radial pH 7.29 L Bicarbonate Actual 20.8 L Total CO2 22 Base Excess -6 L O2 Saturation 91 L O2 % 15.0 ABG pCO2 43.2 ABG pO2 67 L Tuan Test Positive O2 Delivery Device NRB Vent Mode Not entered Radiography Diagnostic Testing: Radiology Impression Chest X-Ray 06/25/23 14:50 IMPRESSION: Left lower lobe infiltrate. Electronically Signed: Slade Boyd MD at 15:22 EDT , Abdomen/Pelvis CT 06/25/23 16:45 IMPRESSION: 1. Bilateral coarse renal calcifications, and several tandem calcifications in the proximal LEFT ureter with the largest measuring 11 x 12 x 18 mm. Postobstructive changes are present on the LEFT including hydronephrosis and perinephric stranding and trace fluid. 2. No masses or bowel obstruction. no masses or bowel obstruction. Diffuse diverticulosis is noted. No evidence of diverticulitis 3. The appendix is not adequately visualized. 4. No evidence of cholelithiasis. 5. Bibasilar pleural-parenchymal thickening, and atelectasis without evidence of consolidation or effusion.. Electronically Signed: Tahir Viveros MD at 17:33 EDT , Chest X-Ray 06/25/23 22:45 IMPRESSION: 1. Worsening diffuse interstitial infiltrate throughout the RIGHT lung and at the LEFT lung base consistent with multi lobar infiltrate/pneumonia. 2. No evidence of congestive failure. Electronically Signed: Tahir Viveros MD at 23:12 EDT , Chest X-Ray 06/26/23 01:46 IMPRESSION: Stable right greater than left bilateral pulmonary opacity changes. Electronically Signed: Alonso Fields MD at 2:30 EDT , Physical Exam Narrative General: Alert, Oriented x3, Cooperative, mild respiratory distress HEENT: Atraumatic, PERRLA, EOMI, Normocephalic Oral: Moist Mucosa Neck: Supple, No JVD Lungs: Diminished, Normal air movement, No rhonchi, wheeze, No rales, tachypnea, retractions Cardiovascular: Tachycardic, Regular Rhythm, Normal S1, Normal S2, No murmurs Abdomen: Soft, Non Tender, Non-Distended, No Hepato-splenomegaly Extremities: No edema, Capillary Refill Less than 3 Seconds Skin: No rashes, No breakdown Musculoskeletal: No Tenderness to Palpation of Joints or Extremities Neurological: Cranial nerves II-XII grossly intact, Motor Exam 5/5 strength throughout, Sensory exam intact to light touch and pain Psych/Mental Status: Anxious Assessment & Plan Assessment/Plan (1) Left lower lobe pneumonia: (2) Complicated urinary tract infection: (3) CARA (acute kidney injury): (4) Generalized weakness: PLAN: Plan 1. Complicated UTI with a stone status post ureteral stent/shake AI ? Continue with broad-spectrum antibiotics awaiting urine cultures ? Continue with pressor support, appreciate superintendent greens assistance ? Continue with IV fluids ? I appreciate urology's assistance as well 2. Acute hypoxic respiratory failure secondary to community-acquired pneumonia and COVID ? She did have positive imaging for consolidation, will continue with antibiotics ? COVID did come back positive we will hold off on steroids and remdesivir at the direction of the ICU 3. DM2 ? Stable, hold home medications ? Continue with insulin ? Accu-Cheks ACHS ? We will monitor and make adjustments as necessary 4. Hypothyroidism ? Stable ? Continue with Synthroid 5. Hyperlipidemia ? Stable ? Continue with statin 6. Anxiety/depression ? Stable ?Continue with her home medications DVT: Heparin Charges/Coding Visit Charges Inpatient E&M: 28593 Subs Hosp L2
[2023-06-26 08:48] LABS: Bedside Glucose 182 mg/dL (74-106)
[2023-06-26] MEDS: Meropenem 500 MG in 0.9% Normal Saline (50mL MB+) 50 ML 100 MG IV ×2 (10:41→21:38)
[2023-06-26 12:35] LABS: Bedside Glucose 166 mg/dL (74-106)
--- NOTE | 2023-06-26 13:51 | CASEMGMT ---
ULISES MILLAN Face to Face with patient for initial transition planning/care coordination assessment. RN MONTY introduced self and role at [facility]. Patient lying in bed, alert and oriented. Patient willing to participate in assessment and is able to answer all questions appropriately. Care providers, pharmacy, and demographics verified. Patient wishes to discharge home, will follow therapy progress with therapy. A list of HHC providers including quality and resource use data and consistent with the patient?s preferred geographical region, medical needs, and insurance network were provided from the [employer] Guide. Patient states she has no further needs or concerns at this time. CM to follow for discharge planning needs that may arise. PCP: Arron Specialists: Andres manager inventory Preferred Pharmacy: [facility] Insurance: [employer] Prescription Benefit: yes Living Will/HPOA: none LNOK: sister, daughter, granddaughters Living Arrangements: Patient lives with daughter and granddaughters in a single story home with ramp to enter. Patient states she is independent at home. Transportation: self, patient states she has no other help with transportation and is tired of driving everyone around. SW notified DME/HHC: Patient states she has shower chair, raised toilet, cane, grab bars, walker, and nebulizer at home. No previous HHC or SNF. Will monitor for home oxygen. Patient states she prefers [facility] for DME. Disposition Plan: Patient to discharge home with family support and follow-up plans in place. Will monitor progress with therapy. Danika SANTACRUZ, RN, CM
--- NOTE | 2023-06-26 15:05 | CASEMGMT ---
Social Work SW gave pt list of home care agencies from [facility] to review--list is agencies in pt's insurance network, preferred geographic area, and complete with quality and resource use data. SW also completed SDOH assessment w/pt. Pt may be interested in a Passport referral, SW will continue to follow. JUSTYNA Corbett
[2023-06-26 16:17] LABS: Bedside Glucose 166 mg/dL (74-106)
--- NOTE | 2023-06-26 19:14 | PCM.PN.BLA ---
Progress Note This is a late entry. Procedure was done on 06/25/2023 at about 0145 Central Venous Catheter Indication: Septic shock Consent was obtained from: Patient A time-out was completed verifying correct patient, procedure, site, positioning, and special equipment if applicable. The patient was placed in a dependent position appropriate for central line placement based on the vein to be cannulated. The patient's right neck was prepped and draped in a sterile fashion. 1% lidocaine was used to anesthetize the surrounding skin area. A triple-lumen catheter was introduced into the [ ] using the Seldinger technique and under ultrasound guidance. The catheter was threaded smoothly over the guidewire and appropriate blood return was obtained. Each lumen of the catheter was evacuated of air and flushed with sterile saline. The catheter was then sutured in place to the skin and a sterile dressing applied. Chest x-ray confirmed appropriate positioning is pending. ULTRASOUND GUIDANCE STATEMENT (Vascular Access): I performed ultrasound image acquisition and interpretation for needle placement during the procedure. The vessel was identified and found to be free of thrombosis by compression technique. A safe point of entry was marked at the skin in an angle for axis was determined. The needle was guided by obtaining free-flowing fluid and by real-time visualization.
[2023-06-26] MEDS: Vancomycin 125 MG/5 ML Susp PO.SYRINGE PO (21:37)
[2023-06-26] MEDS: Pramipexole Di-HCl 1 MG Tablet PO (21:38)
[2023-06-26] MEDS: Atorvastatin Calcium 10 MG Tablet PO (21:38)
[2023-06-26] MEDS: Albuterol 2.5 MG/3 ML VIAL.NEB. INHALATION (22:53)
--- NOTE | 2023-06-26 23:52 | CPS ---
Patient sounding more wheezy and RR increased to 30's PRN albuterol treatment given. Initiated bipap after however patient didn't tolerate despite pressure changes to make more comfortable. Fio2 increased to 3L patient 90%
[2023-06-27] VITALS (18 sets, daily range): BP systolic 110–146; BP diastolic 60–97; PULSE 87–117; RESP 18–28; TEMP 36.1–36.8; O2SAT 91–97; BMI 52.2
[2023-06-27] MEDS: Vancomycin HCl 1,500 MG in 0.9% Normal Saline (500mL Bag) 500 ML 250 MG IV (03:10)
[2023-06-27] MEDS: Vancomycin 125 MG/5 ML Susp PO.SYRINGE PO ×6 (03:10→22:43)
[2023-06-27 03:26] LABS: Absolute Lymphocyte Count 1.11 X10^3/uL (0.83-4.51); Absolute Neutrophil Count 11.2 X10^3/uL (2.0-7.7); Basophil# 0.05 X10^3/uL; Basophil% 0.4 % (0-1); Eosinophil# 0.13 X10^3/uL; Hematocrit 27.8 % (37-47); Hemoglobin 8.9 g/dL (12.0-15.0); Lymphocyte # 1.11 X10^3/ul (0.83-4.51); Lymphocyte % 8.5 % (19-41); Mean Corpuscular Hgb 29.8 pg (27.0-32.0); Mean Platelet Vol. 10.4 fl (6.2-12.0); Monocyte# 0.51 X10^3/uL; Monocyte% 3.9 % (0-10); NRBC Flagged by Analyzer 0 % (0-5); Neutrophil # 11.16 X10^3/uL (2.7-7.7); Platelet Count 105 K/mm3 (150-450); RBC Distribution Width CV 15.7 % (11.6-14.6); RBC Distribution Width SD 53.6 fl (35.1-43.9); Red Blood Count 2.99 M/mm3 (4.2-5.4); White Blood Count 13.1 K/mm3 (4.4-11.0)
[2023-06-27 03:42] LABS: Anion Gap 6 (5-15); BUN 33 mg/dL (7-18); BUN/Creat Ratio 24.8 RATIO (10-20); Calcium,Total 7.6 mg/dL (8.5-10.1); Chloride 106 mmol/L (98-107); Creatinine, Serum 1.33 mg/dL (0.55-1.02); EST Glomerular Filtration Rate 41 mL/min (>60); Est Glom Filt Rate - Afr Amer 50 mL/min (>60); Estimated Creatinine Clearance 29.35 ml/min; Glucose 104 mg/dL (74-106); Magnesium 2.3 mg/dL (1.6-2.6); Phosphorus 4.1 mg/dL (2.5-4.9); Potassium 3.8 mmol/L (3.5-5.1); Sodium Level 136 mmol/L (136-145)
[2023-06-27] MEDS: 0.9% Saline Lock 10 ML Syringe IV ×4 (06:16→23:05)
[2023-06-27] MEDS: Levothyroxine 25 MCG TABLET PO (06:16)
[2023-06-27] MEDS: Heparin Injection (Vial) 5,000 UNIT/ML VIAL 5000 UNIT SC ×3 (06:18→22:44)
--- NOTE | 2023-06-27 06:57 | PCM.PN.INT ---
Assessment & Plan Assessment/Plan (1) Septic shock: (2) Kidney stones: (3) CARA (acute kidney injury): PLAN: Plan RECOMMENDATIONS: 1. Continue empiric antibiotics pending sensitivities 2. Likely discontinue vancomycin tomorrow pending cultures 3. Add mucolytic therapy. Discontinue IV fluids 4. BiPAP rescue if necessary 5. Hold on steroids and Remdesivir for now 6. Okay to leave the intensive care unit IMPRESSIONS: 1. Septic shock secondary to gram-negative UTI with nephrolithiasis and obstruction Resolved. Patient does have Gram negative rods in all blood cultures. Clinical suspicion is this is E. coli, but sensitivities are pending. Clinical suspicion for translocation of UTI following stent placement. Patient is on broad-spectrum antibiotics and appears to be tolerating this well. Patient does have 1 culture growing gram-positive, but this is likely contaminant. Patient does have some skin breakdown in the folds. Likely discontinue vancomycin tomorrow and monitor clinically. Patient does have stents in place, but would likely require definitive therapy as an outpatient. Patient with fever, leukocytosis, hypotension and elevated creatinine 2. Acute hypoxic respiratory failure Unclear etiology at this time. Patient did test positive for COVID-19 and was noted to have a small infiltrate on chest x-ray. Patient is on broad-spectrum antibiotics. Hypoxia has been exacerbated in COVID-19 patients with fluid resuscitation. Patient reportedly is not on supplemental oxygen at baseline, but has been up as high as 9 to 10 L/min of nasal cannula oxygen. We will hold on any Decadron or remdesivir for now. Patient does have systolic dysfunction noted on echocardiogram. We will discontinue IV fluids and add mucolytic. 3. Acute kidney injury Improving. Patient's baseline creatinine appears to be approximately 1 and has elevated as high as 1.68. Patient does have prerenal etiology. We will attempt to avoid nephrotoxins. No indication for renal replacement therapy at this time. 4. Thrombocytopenia/intertrigo/diabetes mellitus/hyperlipidemia/hypothyroidism/anxiety/depression/fibromyalgia/morbid obesity Complicates care, management, recovery and prognosis. No bleeding complications noted at this time, so will not be transfusing any platelets. Local care for intertrigo. We will have to watch blood sugars closely given variable p.o. intake and high cortisol stimulation given problem #1. Subjective Subjective Patient did okay from a hemodynamic standpoint. Patient has been able to come off of pressors overnight. Patient did have an episode of hypoxia and was found to have a mucous plug. Patient was able to expectorate this with resolution of symptoms. Patient subjectively feels better today. Objective Data Objective Data Vital Signs: Vital Signs Temp Pulse Resp BP Pulse Ox O2 Del Method O2 Flow Rate 36.6 C 90 21 H 129/76 H 94 Nasal Cannula 3 06/27/23 00:00 06/27/23 06:00 06/27/23 06:00 06/27/23 06:00 06/27/23 06:00 06/27/23 06:00 06/27/23 06:00 FiO2 35 06/26/23 03:00 Oxygen Flow Rate (L/min) 3 Oxygen Delivery Method Nasal Cannula Weight: 129.6 kg Body Mass Index (BMI) 52.2 Intake & Output: Intake and Output for Last 24 Hours 06/25/23 06/26/23 06/27/23 23:59 23:59 23:59 Intake Total 2280.85 / 2280.85 3957.1733 / 4197.1733 1348.67 / 1348.67 Output Total 1100 / 1650 1000 / 1000 Balance 2280.85 / 2030.85 2857.1733 / 2547.1733 348.67 / 348.67 Lab / Micro Data Attestation: I reviewed the patient's lab results. 06/27/23 03:15 06/27/23 03:15 Labs: Laboratory Results - last 24 hr 06/26/23 08:16: POC Glucose 182 H 06/26/23 12:15: POC Glucose 166 H 06/26/23 15:53: POC Glucose 166 H 06/27/23 03:15: WBC 13.1 H, RBC 2.99 L, Hgb 8.9 L, Hct 27.8 L, MCV 93.0, MCH 29.8, MCHC 32.0, RDW Std Deviation 53.6 H, RDW Coeff of Cecil 15.7 H, Plt Count 105 L, MPV 10.4, Immature Gran % (Auto) 1.200 H, Neut % (Auto) 85.0 H, Lymph % (Auto) 8.5 L, [place] % (Auto) 3.9, Eos % (Auto) 1.0, Baso % (Auto) 0.4, Absolute Neuts (auto) 11.2 H, Absolute Lymphs (auto) 1.11, Nucleated RBC % 0, Sodium 136, Potassium 3.8, Chloride 106, Carbon Dioxide 24.0, Anion Gap 6, BUN 33 H, Creatinine 1.33 H, Estim Creat Clear Calc 29.35, Est GFR (MDRD) Af Amer 50 L, Est GFR (MDRD) Non-Af 41 L, BUN/Creatinine Ratio 24.8 H, Glucose 104, Calcium 7.6 L, Phosphorus 4.1, Magnesium 2.3 Micro: Microbiology 06/25/23 15:29 Urine, Catheterized Urine Culture - Final Escherichia coli 06/25/23 16:33 Blood Culture (Wb) - Anticubital Left Blood Culture - Preliminary GNR non cut off saw tender metal 06/25/23 16:05 Blood Culture (Wb) - Anticubital Left Bacteria Detection (PCR) - Preliminary Staphylococcus epidermidis 06/25/23 16:05 Blood Culture (Wb) - Anticubital Left Blood Culture - Preliminary GNR non cut off saw tender metal GPC Poss Enterococcus sp 06/26/23 15:45 Stool C. difficile GDH Antigen & Toxins - Final 06/26/23 15:45 Stool C. difficile DNA Amplification - Final 06/25/23 21:38 Urine, Cystoscopy Urine Culture - Preliminary Gram negative yesica 06/25/23 15:29 Urine Catheter - Harris Legionella Antigen - Final 06/25/23 16:29 Mucosa - Nasopharyngeal Respiratory Panel (PCR) - Final 06/25/23 15:29 Urine Catheter - Harris Streptococcus pneumoniae Antigen (M - Final 06/25/23 16:30 Nasal Secretion SARS-CoV-2 & FLU Antigen (Rapid) - Final SARS-CoV-2 (COVID 19) Radiography Diagnostic Testing: Radiology Impression Echocardiogram 06/26/23 08:31 Interpretation Summary The study was technically difficult. The left ventricular ejection fraction is 45 %. Moderate mitral annular calcification. Mild (1+) mitral valve insufficiency. Mild tricuspid valve insufficiency. Right ventricular systolic pressure estimated to be 45 mmHg. Ordering Physician: Bertram Chatterjee Referring Physician: Corby Heller Chi Performed By: Emy Keller, RDBLANCO, RVT Physical Exam Const alert, oriented x3 and no apparent distress Constitutional Narrative: Morbidly obese HEENT normocephalic, head/scalp atraumatic, hearing grossly normal bilaterally, external ears normal and external nose normal Eyes PERRL, EOMs intact bilaterally, conjunctivae normal and no scleral icterus Neck supple Neck Narrative: Unable to assess JVD secondary to body habitus General: trachea midline and CVC in place Chest inspection of chest normal Chest: symmetrical chest wall rise Resp no use of accessory muscles Effort and Inspection: symmetric chest movement and tachypneic Auscultation: rhonchi throughout (Improves with coughing); Negative for rales or wheezes Cardio S1 normal heart sound, S2 normal heart sound, no murmurs, no rub and no gallops Rate: tachycardic GI normal to inspection, nondistended, normoactive bowel sounds, soft to palpation, non-tender and non-distended Extremity General Extremity: edema; Negative for clubbing Skin no jaundice and no petechiae Neuro oriented x3, CN's II-XII intact bilaterally and moves all extremities Psych cooperative and affect normal Charges/Coding Visit Charges Inpatient E&M: 63977 Subs Hosp L3
[2023-06-27] MEDS: Budesonide Respules 0.5 MG/2 ML AMPUL.NEB. INHALATION ×2 (07:01→21:00)
[2023-06-27] MEDS: Fluticasone 0.05% 1 SPRAY NASAL.SRY 2 SPRAY NASAL (07:55)
[2023-06-27 08:26] LABS: Bedside Glucose 85 mg/dL (74-106)
--- NOTE | 2023-06-27 08:28 | PCM.PN.HOSP ---
Subjective Subjective Has not needed pressors since yesterday morning however she had a possible mucous plug overnight so we will continue to monitor in the ICU for low bit more today. Objective Data Objective Data Vital Signs: Vital Signs Temp Pulse Resp BP Pulse Ox O2 Del Method O2 Flow Rate 98 F 91 22 H 129/76 H 96 Nasal Cannula 3 06/27/23 00:00 06/27/23 07:02 06/27/23 07:02 06/27/23 06:00 06/27/23 08:00 06/27/23 08:00 06/27/23 08:00 FiO2 35 06/26/23 03:00 Oxygen Flow Rate (L/min) 3 Oxygen Delivery Method Nasal Cannula Weight: 285 lb 11.505 oz Body Mass Index (BMI) 52.2 Intake & Output: Intake and Output for Last 24 Hours 06/26/23 06/27/23 06/28/23 03:59 03:59 03:59 Intake Total 2366.40 / 2378.78 4111.6233 / 4111.6233 1108.67 / 1108.67 Output Total 250 / 250 1400 / 1400 450 / 450 Balance 2116.40 / 2128.78 2711.6233 / 2711.6233 658.67 / 658.67 Lab / Micro Data 06/27/23 03:15 06/27/23 03:15 Labs: Laboratory Results - last 24 hr 06/26/23 08:16: POC Glucose 182 H 06/26/23 12:15: POC Glucose 166 H 06/26/23 15:53: POC Glucose 166 H 06/27/23 03:15: WBC 13.1 H, RBC 2.99 L, Hgb 8.9 L, Hct 27.8 L, MCV 93.0, MCH 29.8, MCHC 32.0, RDW Std Deviation 53.6 H, RDW Coeff of Cecil 15.7 H, Plt Count 105 L, MPV 10.4, Immature Gran % (Auto) 1.200 H, Neut % (Auto) 85.0 H, Lymph % (Auto) 8.5 L, [place] % (Auto) 3.9, Eos % (Auto) 1.0, Baso % (Auto) 0.4, Absolute Neuts (auto) 11.2 H, Absolute Lymphs (auto) 1.11, Nucleated RBC % 0, Sodium 136, Potassium 3.8, Chloride 106, Carbon Dioxide 24.0, Anion Gap 6, BUN 33 H, Creatinine 1.33 H, Estim Creat Clear Calc 29.35, Est GFR (MDRD) Af Amer 50 L, Est GFR (MDRD) Non-Af 41 L, BUN/Creatinine Ratio 24.8 H, Glucose 104, Calcium 7.6 L, Phosphorus 4.1, Magnesium 2.3 06/27/23 07:53: POC Glucose 85 Micro: Microbiology 06/25/23 21:38 Urine, Cystoscopy Urine Culture - Preliminary GNR non vice president integrated 06/25/23 15:29 Urine, Catheterized Urine Culture - Final Escherichia coli 06/25/23 16:33 Blood Culture (Wb) - Anticubital Left Blood Culture - Preliminary GNR non vice president integrated 06/25/23 16:05 Blood Culture (Wb) - Anticubital Left Bacteria Detection (PCR) - Preliminary Staphylococcus epidermidis 06/25/23 16:05 Blood Culture (Wb) - Anticubital Left Blood Culture - Preliminary GNR non vice president integrated GPC Poss Enterococcus sp 06/26/23 15:45 Stool C. difficile GDH Antigen & Toxins - Final 06/26/23 15:45 Stool C. difficile DNA Amplification - Final 06/25/23 15:29 Urine Catheter - Harris Legionella Antigen - Final 06/25/23 16:29 Mucosa - Nasopharyngeal Respiratory Panel (PCR) - Final 06/25/23 15:29 Urine Catheter - Harris Streptococcus pneumoniae Antigen (M - Final 06/25/23 16:30 Nasal Secretion SARS-CoV-2 & FLU Antigen (Rapid) - Final SARS-CoV-2 (COVID 19) Radiography Diagnostic Testing: Radiology Impression Echocardiogram 06/26/23 08:31 Interpretation Summary The study was technically difficult. The left ventricular ejection fraction is 45 %. Moderate mitral annular calcification. Mild (1+) mitral valve insufficiency. Mild tricuspid valve insufficiency. Right ventricular systolic pressure estimated to be 45 mmHg. Ordering Physician: Bertram Chatterjee Referring Physician: Corby Heller Chi Performed By: Emy Keller, ESHA, RVT Physical Exam Narrative General: Alert, Oriented x3, Cooperative, mild respiratory distress HEENT: Atraumatic, PERRLA, EOMI, Normocephalic Oral: Moist Mucosa Neck: Supple, No JVD Lungs: Diminished, Normal air movement, No rhonchi, wheeze, No rales, tachypnea, retractions Cardiovascular: Tachycardic, Regular Rhythm, Normal S1, Normal S2, No murmurs Abdomen: Soft, Non Tender, Non-Distended, No Hepato-splenomegaly Extremities: No edema, Capillary Refill Less than 3 Seconds Skin: No rashes, No breakdown Musculoskeletal: No Tenderness to Palpation of Joints or Extremities Neurological: Cranial nerves II-XII grossly intact, Motor Exam 5/5 strength throughout, Sensory exam intact to light touch and pain Psych/Mental Status: Anxious Assessment & Plan Assessment/Plan (1) Left lower lobe pneumonia: (2) Complicated urinary tract infection: (3) CARA (acute kidney injury): (4) Generalized weakness: PLAN: Plan 1. Complicated UTI with a stone status post ureteral stent with gram-negative yesica bacteremia/CARA/C. difficile ? Continue with broad-spectrum antibiotics awaiting urine cultures ?Has not needed pressors for 24 hours, appreciate log deck tender assistance ? Continue with IV fluids ? I appreciate urology's assistance as well ? C. difficile test is positive for the antigen but negative for toxin however given how ill she is and the fact that she is on broad-spectrum antibiotics we will treat with p.o. vancomycin 2. Acute hypoxic respiratory failure secondary to community-acquired pneumonia and COVID ? She did have positive imaging for consolidation, will continue with antibiotics ? COVID did come back positive we will hold off on steroids and remdesivir at the direction of the ICU 3. DM2 ? Stable, hold home medications ? Continue with insulin ? Accu-Cheks ACHS ? We will monitor and make adjustments as necessary 4. Hypothyroidism ? Stable ? Continue with Synthroid 5. Hyperlipidemia ? Stable ? Continue with statin 6. Anxiety/depression ? Stable ?Continue with her home medications DVT: Heparin Charges/Coding Visit Charges Inpatient E&M: 92845 Subs Hosp L2
[2023-06-27] MEDS: Citalopram 20 MG Tablet PO (11:14)
[2023-06-27] MEDS: Flu Vacc QS2023-24(65YR UP)/PF 240 MCG/0.7 ML Syringe IM (11:14)
[2023-06-27] MEDS: Meropenem 500 MG in 0.9% Normal Saline (50mL MB+) 50 ML 100 MG IV ×2 (11:15→22:44)
[2023-06-27] MEDS: Nystatin Powder 15gm Bottle 1 APPLIC TOPICAL (11:16)
[2023-06-27] MEDS: guaiFENesin 1,200 MG Tablet 1200 MG PO ×2 (11:16→22:43)
[2023-06-27 11:52] LABS: Bedside Glucose 146 mg/dL (74-106)
[2023-06-27] MEDS: Insulin Lispro 100 UNIT/ML INSULN.PEN SC (16:35)
[2023-06-27 17:09] LABS: Bedside Glucose 209 mg/dL (74-106)
[2023-06-27] MEDS: Atorvastatin Calcium 10 MG Tablet PO (22:43)
[2023-06-27] MEDS: Pramipexole Di-HCl 1 MG Tablet PO (22:43)
[2023-06-27 23:28] LABS: Bedside Glucose 157 mg/dL (74-106)
[2023-06-28] VITALS (13 sets, daily range): BP systolic 119–136; BP diastolic 71–93; PULSE 79–111; RESP 16–24; TEMP 36.2–36.7; O2SAT 84–100; BMI 57.2
[2023-06-28] MEDS: Vancomycin Trough/Random Due 1 LAB MC (01:09)
[2023-06-28 01:43] LABS: Vancomycin, Trough Level 19.4 ug/mL (5.0-15.0)
--- NOTE | 2023-06-28 02:04 | PHA.PHARE_ITS ---
Consult Antibiotic Management Pharmacy has been consulted to manage selected antiobiotic: Vancomycin Type of Intervention Type of Consult: Follow-up Labs Labs: Sodium 136 mmol/L (136-145) 06/27/23 03:15 Potassium 3.8 mmol/L (3.5-5.1) 06/27/23 03:15 Chloride 106 mmol/L (98-107) 06/27/23 03:15 Carbon Dioxide 24.0 mmol/L (21.0-32.0) 06/27/23 03:15 Anion Gap 6 (5-15) 06/27/23 03:15 BUN 33 mg/dL (7-18) H 06/27/23 03:15 Creatinine 1.33 mg/dL (0.55-1.02) H 06/27/23 03:15 Est GFR (MDRD) Af Amer 50 mL/min (>60) L 06/27/23 03:15 Est GFR (MDRD) Non-Af 41 mL/min (>60) L 06/27/23 03:15 BUN/Creatinine Ratio 24.8 RATIO (10-20) H 06/27/23 03:15 Glucose 104 mg/dL (74-106) 06/27/23 03:15 Vancomycin Trough 19.4 ug/mL (5.0-15.0) H 06/28/23 01:00 Microbiology Microbiology: Microbiology 06/27/23 08:00 Sputum, Expectorated/Coughed Gram Stain - Final 06/25/23 16:05 Blood Culture (Wb) - Anticubital Left Bacteria Detection (PCR) - Preliminary Staphylococcus epidermidis 06/25/23 16:05 Blood Culture (Wb) - Anticubital Left Blood Culture - Preliminary GNR non land development project manager GPC Poss Enterococcus sp 06/25/23 16:33 Blood Culture (Wb) - Anticubital Left Blood Culture - Preliminary GNR non land development project manager 06/25/23 21:38 Urine, Cystoscopy Urine Culture - Preliminary GNR non land development project manager 06/25/23 15:29 Urine, Catheterized Urine Culture - Final Escherichia coli 06/26/23 15:45 Stool C. difficile GDH Antigen & Toxins - Final 06/26/23 15:45 Stool C. difficile DNA Amplification - Final 06/25/23 15:29 Urine Catheter - Harris Legionella Antigen - Final 06/25/23 16:29 Mucosa - Nasopharyngeal Respiratory Panel (PCR) - Final 06/25/23 15:29 Urine Catheter - Harris Streptococcus pneumoniae Antigen (M - Final 06/25/23 16:30 Nasal Secretion SARS-CoV-2 & FLU Antigen (Rapid) - Final SARS-CoV-2 (COVID 19) Dosing Weight Weight used for dosin.6 kg Estimated Creatinine Clearance Estimated Creatinine Clearance: 48 Goal Trough Goal Trough: 15-20 mcg/mL Pharmacy Plan for Drug Dosing Pharmacy Plan for Drug Dosing: Vancomycin trough level of 19.4, drawn 22 hours post-dose, was within the target range of 15-20. Will continue current dosing and re-draw a trough level in two days. Pharmacy Service will continue to monitor and adjust dosing as required. Follow-Up Labs Follow-Up Labs: Trough: Vancomycin Date/Time Labs Ordered Labs to be done on [date and time ordered]: 06/30/23 @0130
[2023-06-28] MEDS: Vancomycin HCl 1,500 MG in 0.9% Normal Saline (500mL Bag) 500 ML 250 MG IV (02:22)
[2023-06-28] MEDS: Vancomycin 125 MG/5 ML Susp PO.SYRINGE PO ×6 (02:22→21:23)
[2023-06-28] MEDS: Levothyroxine 25 MCG TABLET PO (05:23)
[2023-06-28] MEDS: Heparin Injection (Vial) 5,000 UNIT/ML VIAL 5000 UNIT SC ×3 (05:23→20:57)
[2023-06-28 06:04] LABS: Absolute Neutrophil Count 7.2 X10^3/uL (2.0-7.7); Basophil# 0.04 X10^3/uL; Basophil% 0.4 % (0-1); Eosinophil# 0.21 X10^3/uL; Eosinophils% 2.1 % (0-5); Hematocrit 30.1 % (37-47); Hemoglobin 9.5 g/dL (12.0-15.0); Lymphocyte % 17.4 % (19-41); Mean Corp Hgb Conc 31.6 g/dL (32-36); Mean Corpuscular Hgb 29.9 pg (27.0-32.0); Mean Corpuscular Volume 94.7 fL (81-99); Mean Platelet Vol. 10.7 fl (6.2-12.0); Monocyte# 0.53 X10^3/uL; Monocyte% 5.4 % (0-10); NRBC Flagged by Analyzer 0 % (0-5); Neutrophil # 7.15 X10^3/uL (2.7-7.7); Neutrophil % 73.1 % (47-70); POSITIVE MORPHOLOGY YES; Platelet Count 113 K/mm3 (150-450); RBC Distribution Width CV 15.7 % (11.6-14.6); RBC Distribution Width SD 55.1 fl (35.1-43.9); Red Blood Count 3.18 M/mm3 (4.2-5.4); White Blood Count 9.8 K/mm3 (4.4-11.0)
[2023-06-28 06:13] LABS: Differential Indicated SCAN CRITERIA MET
[2023-06-28 06:50] LABS: Anion Gap 7 (5-15); BUN 28 mg/dL (7-18); BUN/Creat Ratio 28.6 RATIO (10-20); Calcium,Total 8.2 mg/dL (8.5-10.1); Chloride 106 mmol/L (98-107); Creatinine, Serum 0.98 mg/dL (0.55-1.02); EST Glomerular Filtration Rate 59 mL/min (>60); Est Glom Filt Rate - Afr Amer 71 mL/min (>60); Estimated Creatinine Clearance 39.83 ml/min; Glucose 127 mg/dL (74-106); Potassium 4.1 mmol/L (3.5-5.1); Sodium Level 136 mmol/L (136-145)
[2023-06-28 07:17] LABS: Anisocytosis 1+; Platelet Estimate SLT DEC (ADEQ)
[2023-06-28] MEDS: Budesonide Respules 0.5 MG/2 ML AMPUL.NEB. INHALATION ×2 (07:28→21:02)
[2023-06-28 07:53] LABS: Bedside Glucose 116 mg/dL (74-106)
--- NOTE | 2023-06-28 09:18 | PCM.PN.HOSP ---
Subjective Subjective Doing well, no issues overnight Objective Data Objective Data Vital Signs: Vital Signs Temp Pulse Resp BP Pulse Ox O2 Del Method O2 Flow Rate 97.8 F 106 H 22 H 130/84 H 95 Nasal Cannula 2 06/28/23 06:00 06/28/23 07:28 06/28/23 07:28 06/28/23 06:00 06/28/23 07:33 06/28/23 07:33 06/28/23 07:33 FiO2 35 06/26/23 03:00 Oxygen Flow Rate (L/min) 2 Oxygen Delivery Method Nasal Cannula Weight: 313 lb 0.902 oz Body Mass Index (BMI) 57.2 Intake & Output: Intake and Output for Last 24 Hours 06/27/23 06/28/23 06/29/23 03:59 03:59 03:59 Intake Total 4111.6233 / 4111.6233 1788.67 / 1788.67 530 / 530 Output Total 1400 / 1400 1650 / 1650 1100 / 1100 Balance 2711.6233 / 2711.6233 138.67 / 138.67 -570 / -570 Lab / Micro Data 06/28/23 05:46 06/28/23 05:46 Labs: Laboratory Results - last 24 hr 06/27/23 11:23: POC Glucose 146 H 06/27/23 16:24: POC Glucose 209 H 06/27/23 22:41: POC Glucose 157 H 06/28/23 01:00: Vancomycin Trough 19.4 H 06/28/23 05:46: WBC 9.8, RBC 3.18 L, Hgb 9.5 L, Hct 30.1 L, MCV 94.7, MCH 29.9, MCHC 31.6 L, RDW Std Deviation 55.1 H, RDW Coeff of Cecil 15.7 H, Plt Count 113 L, MPV 10.7, Immature Gran % (Auto) 1.600 H, Neut % (Auto) 73.1 H, Lymph % (Auto) 17.4 L, [place] % (Auto) 5.4, Eos % (Auto) 2.1, Baso % (Auto) 0.4, Absolute Neuts (auto) 7.2, Absolute Lymphs (auto) 1.70, Nucleated RBC % 0, Platelet Estimate SLT DEC, Anisocytosis 1+, Sodium 136, Potassium 4.1, Chloride 106, Carbon Dioxide 23.0, Anion Gap 7, BUN 28 H, Creatinine 0.98, Estim Creat Clear Calc 39.83, Est GFR (MDRD) Af Amer 71, Est GFR (MDRD) Non-Af 59 L, BUN/Creatinine Ratio 28.6 H, Glucose 127 H, Calcium 8.2 L 06/28/23 06:49: POC Glucose 116 H Micro: Microbiology 06/25/23 21:38 Urine, Cystoscopy Urine Culture - Final Escherichia coli 06/27/23 08:00 Sputum, Expectorated/Coughed Gram Stain - Final 06/25/23 16:05 Blood Culture (Wb) - Anticubital Left Bacteria Detection (PCR) - Preliminary Staphylococcus epidermidis 06/25/23 16:05 Blood Culture (Wb) - Anticubital Left Blood Culture - Preliminary GNR non rail track layer GPC Poss Enterococcus sp 06/25/23 16:33 Blood Culture (Wb) - Anticubital Left Blood Culture - Preliminary GNR non rail track layer 06/25/23 15:29 Urine, Catheterized Urine Culture - Final Escherichia coli 06/26/23 15:45 Stool C. difficile GDH Antigen & Toxins - Final 06/26/23 15:45 Stool C. difficile DNA Amplification - Final 06/25/23 15:29 Urine Catheter - Harris Legionella Antigen - Final 06/25/23 16:29 Mucosa - Nasopharyngeal Respiratory Panel (PCR) - Final 06/25/23 15:29 Urine Catheter - Harris Streptococcus pneumoniae Antigen (M - Final 06/25/23 16:30 Nasal Secretion SARS-CoV-2 & FLU Antigen (Rapid) - Final SARS-CoV-2 (COVID 19) Physical Exam Narrative General: Alert, Oriented x3, Cooperative, mild respiratory distress HEENT: Atraumatic, PERRLA, EOMI, Normocephalic Oral: Moist Mucosa Neck: Supple, No JVD Lungs: Diminished, Normal air movement, No rhonchi, wheeze, No rales, tachypnea Cardiovascular: Tachycardic, Regular Rhythm, Normal S1, Normal S2, No murmurs Abdomen: Soft, Non Tender, Non-Distended, No Hepato-splenomegaly Extremities: No edema, Capillary Refill Less than 3 Seconds Skin: No rashes, No breakdown Musculoskeletal: No Tenderness to Palpation of Joints or Extremities Neurological: Cranial nerves II-XII grossly intact, Motor Exam 5/5 strength throughout, Sensory exam intact to light touch and pain Psych/Mental Status: Flat Assessment & Plan Assessment/Plan (1) Left lower lobe pneumonia: (2) Complicated urinary tract infection: (3) CARA (acute kidney injury): (4) Generalized weakness: PLAN: Plan 1. Complicated colon UTI with a stone status post ureteral stent with E. coli bacteremia/CARA/C. difficile ?Based on resistance patterns as well as her allergies to cephalosporins, will continue with meropenem, will discontinue IV vancomycin ? I appreciate urology's assistance as well ? C. difficile test is positive for the antigen but negative for toxin however given how ill she is and the fact that she is on broad-spectrum antibiotics we will treat with p.o. vancomycin 2. Acute hypoxic respiratory failure secondary to community-acquired pneumonia and COVID ? She did have positive imaging for consolidation, will continue with antibiotics ? COVID did come back positive we will hold off on steroids and remdesivir at the direction of the ICU 3. DM2 ? Stable, hold home medications ? Continue with insulin ? Accu-Cheks ACHS ? We will monitor and make adjustments as necessary 4. Hypothyroidism ? Stable ? Continue with Synthroid 5. Hyperlipidemia ? Stable ? Continue with statin 6. Anxiety/depression ? Stable ?Continue with her home medications DVT: Heparin Charges/Coding Visit Charges Inpatient E&M: 11465 Subs Hosp L2
[2023-06-28] MEDS: Citalopram 20 MG Tablet PO (10:01)
[2023-06-28] MEDS: guaiFENesin 1,200 MG Tablet 1200 MG PO ×2 (10:01→21:23)
[2023-06-28] MEDS: Meropenem 500 MG in 0.9% Normal Saline (50mL MB+) 50 ML 100 MG IV ×2 (10:01→20:57)
[2023-06-28] MEDS: Nystatin Powder 15gm Bottle 1 APPLIC TOPICAL ×2 (10:01→21:00)
[2023-06-28] MEDS: Fluticasone 0.05% 1 SPRAY NASAL.SRY 2 SPRAY NASAL (10:02)
[2023-06-28] MEDS: Insulin Lispro 100 UNIT/ML INSULN.PEN SC (11:50)
[2023-06-28 12:12] LABS: Bedside Glucose 177 mg/dL (74-106)
[2023-06-28] MEDS: Acetaminophen 325 MG Tablet 650 MG PO (14:09)
[2023-06-28] MEDS: guaiFENesin Dm 10 ML UDC PO (14:10)
--- NOTE | 2023-06-28 16:23 | NURSING ---
PT WAS TESTED FOR HOME O2- PT WAS 93% IN BED - THEN PT STOOD PT AT BEDSIDE AND SATS FELL TO 84%- APPLIED 2 LITERS WHILE STANDING AND SAT UP TO 95%
[2023-06-28 17:23] LABS: Bedside Glucose 143 mg/dL (74-106)
[2023-06-28] MEDS: MELATONIN 3 MG TABLET PO (20:57)
[2023-06-28] MEDS: Atorvastatin Calcium 10 MG Tablet PO (20:57)
[2023-06-28] MEDS: Pramipexole Di-HCl 1 MG Tablet PO (21:00)
[2023-06-28] MEDS: Ipratropium 0.5 MG/2.5 ML SOLUTION INHALATION (21:02)
[2023-06-28] MEDS: Arthritis Pain Compound 60 CLICK TUBE TOPICAL (21:23)
--- NOTE | 2023-06-28 23:07 | CPS ---
PT refuses bipap
[2023-06-29] VITALS (11 sets, daily range): BP systolic 93–134; BP diastolic 50–99; PULSE 75–91; RESP 15–22; TEMP 36.5–37.3; O2SAT 93–100; BMI 57.6
[2023-06-29] MEDS: Vancomycin 125 MG/5 ML Susp PO.SYRINGE PO ×6 (02:15→21:21)
[2023-06-29] MEDS: Arthritis Pain Compound 60 CLICK TUBE TOPICAL ×2 (06:34→14:23)
[2023-06-29] MEDS: Levothyroxine 25 MCG TABLET PO (06:34)
[2023-06-29] MEDS: Heparin Injection (Vial) 5,000 UNIT/ML VIAL 5000 UNIT SC ×3 (06:34→21:22)
[2023-06-29 07:07] LABS: Hematocrit 28.4 % (37-47); Mean Corp Hgb Conc 31.7 g/dL (32-36); Mean Corpuscular Volume 94.7 fL (81-99); Mean Platelet Vol. 9.9 fl (6.2-12.0); POSITIVE COUNT YES; POSITIVE MORPHOLOGY YES; Platelet Count 173 K/mm3 (150-450); RBC Distribution Width CV 15.5 % (11.6-14.6); RBC Distribution Width SD 54.1 fl (35.1-43.9); White Blood Count 11.2 K/mm3 (4.4-11.0)
[2023-06-29 07:08] LABS: Differential Indicated MANUAL DIFF
[2023-06-29 07:38] LABS: Anion Gap 4 (5-15); BUN 25 mg/dL (7-18); BUN/Creat Ratio 27.1 RATIO (10-20); Calcium,Total 7.9 mg/dL (8.5-10.1); Chloride 106 mmol/L (98-107); Creatinine, Serum 0.92 mg/dL (0.55-1.02); EST Glomerular Filtration Rate 63 mL/min (>60); Est Glom Filt Rate - Afr Amer 77 mL/min (>60); Estimated Creatinine Clearance 42.43 ml/min; Glucose 125 mg/dL (74-106); Potassium 4.1 mmol/L (3.5-5.1); Sodium Level 135 mmol/L (136-145)
[2023-06-29] MEDS: Budesonide Respules 0.5 MG/2 ML AMPUL.NEB. INHALATION ×2 (07:41→19:53)
[2023-06-29] MEDS: Ipratropium 0.5 MG/2.5 ML SOLUTION INHALATION ×3 (07:42→19:53)
[2023-06-29 08:59] LABS: Eosinophil 5 % (0-5); Lymphocyte 19 % (19-41); Monocyte 6 % (0-10); Myelocyte 2 % (0-0); Neutrophil-Band 2 % (0-5); Neutrophil-Segmented 66 % (47-70); Platelet Estimate ADEQUATE (ADEQ); Red Cell Morphology NORM C+C NORMAL (NORM C&C); Total Cells Counted 100 (MANUAL DIFF)
[2023-06-29 09:00] LABS: Absolute Neutrophil Count 7.6 X10^3/uL (2.0-7.7)
[2023-06-29 09:01] LABS: Absolute Lymphocyte Count 2.13 X10^3/uL (0.83-4.51); Reactive Lymphocyte 1+
[2023-06-29] MEDS: guaiFENesin 1,200 MG Tablet 1200 MG PO ×2 (09:31→21:20)
[2023-06-29] MEDS: Citalopram 20 MG Tablet PO (09:31)
[2023-06-29] MEDS: Nystatin Powder 15gm Bottle 1 APPLIC TOPICAL ×2 (09:32→21:22)
[2023-06-29] MEDS: Fluticasone 0.05% 1 SPRAY NASAL.SRY 2 SPRAY NASAL (09:32)
[2023-06-29] MEDS: Acetaminophen 325 MG Tablet 650 MG PO (09:35)
[2023-06-29] MEDS: Meropenem 500 MG in 0.9% Normal Saline (50mL MB+) 50 ML 100 MG IV (09:36)
[2023-06-29 10:08] LABS: Bedside Glucose 175 mg/dL (74-106)
--- NOTE | 2023-06-29 10:56 | CASEMGMT ---
SW reviewed patient's therapy notes and patient did not do well. SW met with patient. Introduced self and role at [facility]. SW explained to patient that right now she is not doing well and it is being recommended she go to a [facility] facility. At first patient said no, but then she told SW she would be okay with [facility] or [facility]. Patient said no [facility] or [facility]. SW provided patient with a list of [facility] facility providers including quality and resource use data and consistent with patient?s preferred geographic region, medical needs, and insurance network were provided from the [employer] Guide. SW let patient know SW will work on referrals. SW asked Parul d/c funeral planning counselor to send referrals to [facility] and [facility]. Nishi BOJORQUEZ
--- NOTE | 2023-06-29 11:20 | CASEMGMT ---
Discharge Planning Referral sent via [facility] to [facility] and [facility]. Parul Burnett, Discharge Planning Asst.
--- NOTE | 2023-06-29 12:03 | CASEMGMT ---
Discharge Planning will accept patient but she would not be able to admit until 07/06 due to covid status. Parul Burnett, Discharge Planning Asst.
[2023-06-29 12:15] LABS: Bedside Glucose 120 mg/dL (74-106)
[2023-06-29] MEDS: Cefdinir 300 MG Capsule PO ×2 (12:53→21:20)
[2023-06-29 13:29] LABS: Pathologist Review Reviewed
--- NOTE | 2023-06-29 18:25 | PCM.PN.HOSP ---
Reason for Visit Reason for Visit: Diagnoses Sepsis, unspecified organism (06/25/23) Candidiasis of skin and nail (06/25/23) Elevated white blood cell count, unspecified (06/25/23) Dehydration (06/25/23) Hypo-osmolality and hyponatremia (06/25/23) Pneumonia, unspecified organism (06/25/23) Acute kidney failure, unspecified (06/25/23) Calculus of kidney (06/25/23) Urinary tract infection, site not specified (06/25/23) Tachycardia, unspecified (06/25/23) Weakness (06/25/23) Severe sepsis with septic shock (06/25/23) Subjective Subjective Patient was seen and examined today, late this afternoon she was complaining of some knee pain to nursing, I wrote for her to have [place] as needed for moderate to severe pain. I made the decision today to change the patient's antibiotic coverage to Omnicef, I stopped her meropenem, she received a dose of Omnicef today and did not seem to have any reaction from the medication. Objective Data Objective Data Vital Signs: Vital Signs Temp Pulse Resp BP Pulse Ox O2 Del Method O2 Flow Rate 97.9 F 81 16 134/69 H 98 Nasal Cannula 2 06/29/23 14:29 06/29/23 14:29 06/29/23 14:29 06/29/23 14:29 06/29/23 14:29 06/29/23 14:29 06/29/23 14:29 FiO2 35 06/26/23 03:00 Oxygen Flow Rate (L/min) [ 2 AMBULATING with Oxygen #1] Oxygen Flow Rate (L/min) [ 0 AMBULATING on Room Air] Oxygen Flow Rate (L/min) [At 0 REST on Room Air] Oxygen Flow Rate (L/min) 2 Oxygen Delivery Method Nasal Cannula Weight: 143 kg Body Mass Index (BMI) 57.6 Intake & Output: Intake and Output for Last 24 Hours 06/27/23 06/28/23 06/29/23 23:59 23:59 23:59 Intake Total 8.67 / 2028.67 1250 / 1250 740 / 740 Output Total 2200 / 2200 2300 / 2300 1950 / 1950 Balance -171.33 / -171.33 -1050 / -1050 -1210 / -1210 Lab / Micro Data 06/29/23 06:58 06/29/23 06:58 Labs: Laboratory Results - last 24 hr 06/29/23 06:36: POC Glucose 120 H 06/29/23 06:58: WBC 11.2 H, RBC 3.00 L, Hgb 9.0 L, Hct 28.4 L, MCV 94.7, MCH 30.0, MCHC 31.7 L, RDW Std Deviation 54.1 H, RDW Coeff of Cecil 15.5 H, Plt Count 173, MPV 9.9, Neut % (Auto) Not Reportable, Absolute Neuts (auto) 7.6, Absolute Lymphs (auto) 2.13, Total Counted 100, Neutrophils % (Manual) 66, Band Neutrophils % 2, Lymphocytes % (Manual) 19, Monocytes % (Manual) 6, Eosinophils % (Manual) 5, Myelocytes % 2 H, Diff Path Review Reviewed, Reactive Lymphocytes 1+, Platelet Estimate ADEQUATE, RBC Morphology NORM C+C, Sodium 135 L, Potassium 4.1, Chloride 106, Carbon Dioxide 25.0, Anion Gap 4 L, BUN 25 H, Creatinine 0.92, Estim Creat Clear Calc 42.43, Est GFR (MDRD) Af Amer 77, Est GFR (MDRD) Non-Af 63, BUN/Creatinine Ratio 27.1 H, Glucose 125 H, Calcium 7.9 L 06/29/23 09:42: POC Glucose 175 H Micro: Microbiology 06/27/23 08:00 Sputum, Expectorated/Coughed Gram Stain - Final 06/27/23 08:00 Sputum, Expectorated/Coughed Respiratory Culture - Final Presumptive C albicans 06/25/23 16:05 Blood Culture (Wb) - Anticubital Left Bacteria Detection (PCR) - Final Staphylococcus epidermidis 06/25/23 16:05 Blood Culture (Wb) - Anticubital Left Blood Culture - Final Gram negative yesica Staphylococcus epidermidis 06/25/23 16:33 Blood Culture (Wb) - Anticubital Left Blood Culture - Final Escherichia coli 06/25/23 21:38 Urine, Cystoscopy Urine Culture - Final Escherichia coli 06/25/23 15:29 Urine, Catheterized Urine Culture - Final Escherichia coli 06/26/23 15:45 Stool C. difficile GDH Antigen & Toxins - Final 06/26/23 15:45 Stool C. difficile DNA Amplification - Final 06/25/23 15:29 Urine Catheter - Harris Legionella Antigen - Final 06/25/23 16:29 Mucosa - Nasopharyngeal Respiratory Panel (PCR) - Final 06/25/23 15:29 Urine Catheter - Harris Streptococcus pneumoniae Antigen (M - Final 06/25/23 16:30 Nasal Secretion SARS-CoV-2 & FLU Antigen (Rapid) - Final SARS-CoV-2 (COVID 19) Physical Exam Const alert, oriented x3 and no apparent distress Constitutional Narrative: Patient is morbidly obese General Appearance: cooperative, well kempt and well developed Orientation / Consciousness: awake, oriented to person, oriented to place and oriented to time HEENT normocephalic, head/scalp atraumatic and moist oral mucous membranes Eyes PERRL, EOMs intact bilaterally and conjunctivae normal Neck supple, no JVD, thyroid normal and no carotid bruits General: trachea midline Resp normal respiratory effort, no retractions, no use of accessory muscles and clear to auscultation bilaterally Auscultation: Negative for rales, rhonchi or wheezes Cardio regular rate, regular rhythm, S1 normal heart sound, S2 normal heart sound, no murmurs, no rub and no gallops GI normal to inspection, nondistended, normoactive bowel sounds, soft to palpation, non-tender and non-distended Extremity no clubbing, cyanosis or edema Skin no rashes or lesions noted General Skin Exam: no breakdown Neuro oriented x3, CN's II-XII intact bilaterally, moves all extremities, no focal motor deficits and no sensory deficits noted Sensorium / Orientation: awake and alert Speech: speech normal Psych affect normal Assessment & Plan Assessment/Plan (1) Septic shock: PLAN: Plan 1. Septic shock secondary to E. coli urinary tract infection-again I made the decision today to change the patient from meropenem to Omnicef, she will be monitored for any change in her medical status. #2 COVID-19 infection-patient is currently on low-flow nasal cannula oxygen and does not appear symptomatic, she was not treated with any corticosteroids or remdesivir. #3 acute kidney injury-patient's creatinine has returned to what appears to be her baseline at this time, labs will be monitored as necessary #4 morbid obesity-complicates care, medical course, recovery, and prognosis #5 left obstructing ureteral calculus, right renal calculus-status post bilateral ureteral stent insertion 06/25/2023-patient will be monitored closely for any changes in her renal function #6 acute hypoxic respiratory failure-patient's oxygen requirement is at 2 L now, the etiology of the patient's respiratory failure is unclear at this time #7 type 2 diabetes-patient's blood sugars will be monitored, sliding scale insulin will be given per fingerstick blood sugars #8 chronic depression-patient is on Celexa #9 positive C. difficile PCR with negative toxin-I have elected to leave the patient on vancomycin orally at this time until she finishes her antibiotic regimen Total clinical time spent by myself addressing the patient's medical issues, reviewing all of her data, and collaborating with patient's care team: 35 minutes Charges/Coding Visit Charges Inpatient E&M: 64447 Subs Hosp L2
[2023-06-29] MEDS: HYDROcodone Bitartrate/Apap 5/325 Tablet PO (19:01)
[2023-06-29 19:30] LABS: Bedside Glucose 144 mg/dL (74-106)
[2023-06-29 19:30] LABS: Bedside Glucose 145 mg/dL (74-106)
[2023-06-29] MEDS: Pramipexole Di-HCl 1 MG Tablet PO (21:20)
[2023-06-29] MEDS: Atorvastatin Calcium 10 MG Tablet PO (21:21)
[2023-06-29 21:56] LABS: Bedside Glucose 185 mg/dL (74-106)
[2023-06-30 03:10] VITALS: BP 108/62; PULSE 69; RESP 14; TEMP 36.1; O2SAT 96
[2023-06-30] MEDS: Heparin Injection (Vial) 5,000 UNIT/ML VIAL 5000 UNIT SC (06:35)
[2023-06-30] MEDS: Vancomycin 125 MG/5 ML Susp PO.SYRINGE PO ×2 (06:36→09:00)
[2023-06-30] MEDS: Levothyroxine 25 MCG TABLET PO (06:36)
[2023-06-30] MEDS: Acetaminophen 325 MG Tablet 650 MG PO (06:36)
[2023-06-30] MEDS: Budesonide Respules 0.5 MG/2 ML AMPUL.NEB. INHALATION (07:06)
[2023-06-30] MEDS: Ipratropium 0.5 MG/2.5 ML SOLUTION INHALATION (07:06)
[2023-06-30 07:10] VITALS: PULSE 79; RESP 20
[2023-06-30 07:10] LABS: Bedside Glucose 112 mg/dL (74-106)
--- NOTE | 2023-06-30 07:26 | NURSING ---
Attempted to obtain daily weight from bedscale result was not consistent with patient condition or even remotely close to previous weight. discussed with oncoming nurse to attempt to re-zero the bed and get an accurate weight later today.
--- NOTE | 2023-06-30 08:04 | CASEMGMT ---
Late entry [facility] could take patient, but not until Wednesday. Per physician patient will be ready before then. SW spoke with patient and she was actually wanting to talk to SW. Patient said she wants to go to [facility] TCU. SW will make referral. SW made referral to TCU and they can take patient when she is ready. Nishi Corey NEWSPAPER OR PERIODICAL EDITOR [place]
[2023-06-30 09:00] VITALS: BP 123/72; PULSE 79; RESP 18; TEMP 36.4; O2SAT 93
[2023-06-30] MEDS: guaiFENesin 1,200 MG Tablet 1200 MG PO (09:00)
[2023-06-30] MEDS: Cefdinir 300 MG Capsule PO (09:00)
[2023-06-30] MEDS: Citalopram 20 MG Tablet PO (09:00)
[2023-06-30] MEDS: Fluticasone 0.05% 1 SPRAY NASAL.SRY 2 SPRAY NASAL (09:01)
[2023-06-30] MEDS: Nystatin Powder 15gm Bottle 1 APPLIC TOPICAL (09:02)
[2023-06-30 09:10] VITALS: O2SAT 96
--- NOTE | 2023-06-30 10:25 | PCM.TXEXTCAR ---
Diet Diet Order/Speech Therapy: 06/25/23 18:48 Diet: Cardiac - Heart Healthy Food consistency:: Regular Liquid Consistency:: Regular/Thin Is pt able to select menu?: Yes Diet: Consistent Carb - Calorie Controlled Is pt able to select menu?: Yes How many daily calories?: 1800 calorie Routine Orders/Code Status O2 Liters per Minute: 3 O2 Frequency: Continuous Keep PO Greater than or Equal to (%): 90 Routine Lab Work: - (Fingerstick blood sugars AC nightly, Humalog subcu per sliding scale: 200-250: 5 units, 251-300: 8 units, 301-350: 12 units) Wound(s) Coccyx: Wound Type: Pressure Injury Therapies Weight Bearing: Full weight bearing Physical Therapy: Eval and Treat Occupational Therapy: Eval and Treat Problem/Diagnosis (1) Septic shock: Status: Acute Code(s): A41.9 - Sepsis, unspecified organism; R65.21 - Severe sepsis with septic shock (2) Osteoarthritis: Status: Acute Code(s): M19.90 - Unspecified osteoarthritis, unspecified site Plan 1. Septic shock secondary to E. coli urinary tract infection-patient is now on Omnicef #2 COVID-19 infection-patient is currently on low-flow nasal cannula oxygen and does not appear symptomatic, she was not treated with any corticosteroids or remdesivir. #3 acute kidney injury-patient's creatinine has returned to what appears to be her baseline at this time, labs will be monitored as necessary #4 morbid obesity-complicates care, medical course, recovery, and prognosis #5 left obstructing ureteral calculus, right renal calculus-status post bilateral ureteral stent insertion 06/25/2023-patient will be monitored closely for any changes in her renal function #6 acute hypoxic respiratory failure-patient's oxygen requirement is at 3 L now, the etiology of the patient's respiratory failure is unclear at this time, probably related to pneumonia and COVID-19 infection #7 type 2 diabetes-patient's blood sugars will be monitored, sliding scale insulin will be given per fingerstick blood sugars #8 chronic depression-patient is on Celexa #9 positive C. difficile PCR with negative toxin-I have elected to leave the patient on vancomycin orally at this time until she finishes her antibiotic regimen #10 left lower lobe pneumonia-etiology unclear, patient is currently on a broad-spectrum cephalosporin Total clinical time spent by myself addressing the patient's medical issues, reviewing all of her data, and collaborating with patient's care team: 35 minutes Allergies/Procedures Done in Hospital Allergies cephalexin monohydrate [From Keflex] Allergy (Verified 06/25/23 13:46) Swelling ibuprofen Allergy (Verified 06/25/23 13:46) Swelling STATES CAN TAKE LOW DOSES ONLY oxaprozin [From Daypro] Allergy (Verified 06/25/23 13:46) Swelling tramadol HCl [From Ultram] Allergy (Verified 06/25/23 13:46) Swelling celecoxib [From Celebrex] Adverse Reaction (Verified 06/25/23 13:46) DIZZY AND HURTS AROUND MY LIVER DIZZY AND HURTS AROUND MY LIVER Procedures: - (Cystoscopy with bilateral ureteral stent insertion-06/25/2023) Type of Care/Length of Stay Estimated LOS: Convalescent Care Less Than 30 days Type of Care Needed: Skilled Rehab Potential: Good Prognosis: Good Additional Orders/Day of Discharge H&P will serve as current which was dated: 06/25/23 Day of Discharge: 06/30/23 Dietary and Speech Recommendations Dietitian Recommendations/Changes: continue cardiac, 1800 calorie controlled consistent CHO diet; will monitor need for ONS if PO intake at meals fails Discharge Plan Admission Admit Date/Time: 06/25/23 16:10 Primary Reason for Your Visit: Sepsis, COVID-19, community-acquired pneumonia Attending Provider: Alonso Bautista Primary Care Provider: Corby Heller Chi Consulting Providers: Clementine Prieto; Bertram Chatterjee; Lucas Clemons; Josh Petersen; Conner Marie; Cameron Almazan; Rhonda Victoria NP; Zenon Martinez Discharge Orders/Prescriptions Prescriptions: New Arthritis Pain Compound 0 click topical Q8H PRNQty: 0 0RF acetaminophen 325 mg Tablet 650 mg PO Q6H PRN PRN (Reason: Pain 1-10 Or Fever>100.7) Qty: 0 0RF budesonide 0.5 mg/2 mL Suspension For Nebulization 0.5 mg inhalation Q12H.RT Qty: 0 0RF cefdinir 300 mg Capsule 300 mg PO Q12 Qty: 7 0RF Rx Instructions: continue for 7 doses starting evening 10/4/23 hydrocodone-acetaminophen 5-325 mg Tablet 1 - 2 tab PO Q6H PRN PRN (Reason: Pain Score 4-10) 3 Days Qty: 10 0RF dextromethorphan-guaifenesin 10-100 mg/5 mL Syrup 10 ml PO Q6H PRN PRN (Reason: COUGH) Qty: 0 0RF nystatin [Nyamyc] 100,000 unit/gram Powder 1 applic topical BID Qty: 0 0RF Protocol: *Topical Application Instructions APPLICATION INSTRUCTIONS: B intertriginous areas vancomycin [Firvanq] 25 mg/mL Recon Soln 125 mg PO Q4 Qty: 0 0RF Rx Instructions: continue for 5 days starting 06/30/23 Continued fluticasone propionate 1 SPRAY spray,suspension 2 spray NASAL DAILY citalopram 20 mg tablet 20 mg PO DAILY Patient Comments: TAKE 1/2 (ONE-HALF) OF A TABLET DAILY FOR 7 DAYS then TAKE 1 TABLET DAILY potassium chloride 10 mEq capsule, extended release 20 meq PO DAILY lovastatin 40 mg tablet 40 mg PO QHS Patient Comments: TAKE 1 TABLET DAILY AT BEDTIME levothyroxine 25 mcg tablet 25 mcg PO DAILY Patient Comments: TAKE 1 TABLET BY MOUTH ONCE DAILY pioglitazone 30 mg tablet 30 mg PO DAILY ropinirole 2 mg tablet 2 mg PO QHS Discontinued albuterol sulfate 1 PUFF inhaler 1 - 2 puff inhalation Q6H PRN PRN (Reason: Asthma) fluticasone propionate [Flovent HFA] 44 mcg/actuation HFA aerosol inhaler 1 puff INHALATION DAILY echinacea 500 mg capsule 500 mg PO DAILY Patient Comments: GETS OTC UNSURE OF STRENGTH Rx Instructions: administer with meals Referrals / Follow Up: Marie Caldera MD [Med Staff - Active Staff] - See Referral Note (1 week after discharge from the TCU) Corby Heller Chi, MD [Primary Care Provider] - Disposition Disposition (needs filled in before D/C Order can be placed): [facility]
--- NOTE | 2023-06-30 10:51 | DS.PCM_ITS ---
Providers Date of Admission: 06/25/23 Date of Discharge: 06/30/23 Primary Care Physician: Dr. Corby Heller MD Consultations 06/26/23 05:56 Consult: Pipe Organ Builder / Pulmonary Medicine Routine Consulting Provider: Pulmonary Medicine leobardo Gunter Reason for Consult: septic shock EMERGENT Consult: No MD Notified: Yes Date Notified: 06/26/23 Time Notified: 05:56 Method of Notification: Verbal Reason For Visit: COMPLICATED UTI Diagnosis Discharge Diagnosis (1) Septic shock: Status: Acute Code(s): A41.9 - Sepsis, unspecified organism; R65.21 - Severe sepsis with septic shock (2) Osteoarthritis: Status: Acute Code(s): M19.90 - Unspecified osteoarthritis, unspecified site Plan 1. Septic shock secondary to E. coli urinary tract infection-patient is now on Omnicef #2 COVID-19 infection-patient is currently on low-flow nasal cannula oxygen and does not appear symptomatic, she was not treated with any corticosteroids or remdesivir. #3 acute kidney injury-patient's creatinine has returned to what appears to be her baseline at this time, labs will be monitored as necessary #4 morbid obesity-complicates care, medical course, recovery, and prognosis #5 left obstructing ureteral calculus, right renal calculus-status post bilateral ureteral stent insertion 06/25/2023-patient will be monitored closely for any changes in her renal function #6 acute hypoxic respiratory failure-patient's oxygen requirement is at 3 L now, the etiology of the patient's respiratory failure is unclear at this time, probably related to pneumonia and COVID-19 infection #7 type 2 diabetes-patient's blood sugars will be monitored, sliding scale insulin will be given per fingerstick blood sugars #8 chronic depression-patient is on Celexa #9 positive C. difficile PCR with negative toxin-I have elected to leave the patient on vancomycin orally at this time until she finishes her antibiotic regimen #10 left lower lobe pneumonia-etiology unclear, patient is currently on a broad-spectrum cephalosporin #11 diminished ejection fraction-etiology unclear-patient will need follow-up as an outpatient, probable repeat echocardiogram #12 moderate pulmonary hypertension Total clinical time spent by myself addressing the patient's medical issues, reviewing all of her data, and collaborating with patient's care team: 35 minutes Medications at Discharge Home Medications fluticasone propionate 50 mcg/actuation nasal spray,suspension 2 spray NASAL DAILY allergies 12/07/16 citalopram 20 mg tablet 20 mg PO DAILY DEPRESSION 04/26/21 levothyroxine 25 mcg tablet 25 mcg PO DAILY thyroid 04/29/21 lovastatin 40 mg tablet 40 mg PO QHS cholesterol 04/29/21 potassium chloride 10 mEq capsule,extended release 20 meq PO DAILY supplement 04/29/21 pioglitazone 30 mg tablet 30 mg PO DAILY DM 06/25/23 ropinirole 2 mg tablet 2 mg PO QHS RLS 06/25/23 Arthritis Pain Compound 1 click topical Q8H PRN pain 06/30/23 acetaminophen 325 mg tablet 650 mg (2 x 325 mg) PO Q6H PRN PRN Pain 1-10 Or Fever>100.7 #0 tabs 06/30/23 budesonide 0.5 mg/2 mL suspension for nebulization 0.5 mg (2 mL) inhalation Q12H.RT breathing #0 mL 06/30/23 cefdinir 300 mg capsule 300 mg PO Q12 infection #7 caps 06/30/23 dextromethorphan-guaifenesin 10 mg-100 mg/5 mL oral syrup 10 ml PO Q6H PRN PRN COUGH #0 mL 06/30/23 hydrocodone-acetaminophen 5-325mg 5mg-325mg 1 - 2 tab PO Q6H PRN PRN Pain Score 4-10 3 days #10 tabs 06/30/23 nystatin 100,000 unit/gram topical powder (Nyamyc) 1 applic topical BID moisture/ #0 grams 06/30/23 vancomycin 25 mg/mL oral solution (Firvanq) 125 mg (5 mL) PO Q4 antibiotic #0 mL 06/30/23 Hospital Course Operations None Procedures 2-D Echocardiogram Summary of Care Provided Minutes Spent on Discharge: 33 Hospital Course: 73-year-old white female was seen in the emergency room at [facility] for complaints of generalized weakness, fever, and cough. Lab was obtained which showed an elevated white blood cell count, patient's hemoglobin was low at 10.4, creatinine was elevated at 1.62. BUN was elevated at 28. Chest x-ray showed a left lower lobe infiltrate, urinalysis indicated a urinary tract infection with 50-100 WBCs, 10-25 RBCs, and +4 bacteria. Patient was admitted to ICU, she was maintained on IV antibiotics and fluids, CT of the abdomen and pelvis was obtained which showed bilateral coarse renal calcifications and several calcifications in the proximal left ureter with postobstructive changes on the left including hydronephrosis and perinephric stranding and trace fluid. Patient was seen in consultation by urology and critical care, she underwent cystoscopy with bilateral ureteral stent insertion, her condition improved during her hospitalization, urine and blood culture was positive for E. coli. In addition, patient was tested for COVID-19 and her antigen was positive, critical care did not feel the patient needed Decadron or remdesivir. Echocardiogram was obtained which showed an EF of 45% and a right ventricular systolic pressure of 45 mm. Patient's stool was tested for C. difficile, she was negative for toxin but positive for C. difficile A/B antigen and positive for C. difficile PCR. Patient was seen by PT and OT, it was recommended that the patient go into a [place] [facility] facility for short-term rehab services and the patient agreed. On 06/30/2023, patient was seen and examined:alert, oriented x3 and no apparent distress Constitutional Narrative: Patient is morbidly obese General Appearance: cooperative, well kempt and well developed Orientation / Consciousness: awake, oriented to person, oriented to place and oriented to time HEENT normocephalic, head/scalp atraumatic and moist oral mucous membranes Eyes PERRL, EOMs intact bilaterally and conjunctivae normal Neck supple, no JVD, thyroid normal and no carotid bruits General: trachea midline Resp normal respiratory effort, no retractions, no use of accessory muscles and clear to auscultation bilaterally Auscultation: Negative for rales, rhonchi or wheezes Cardio regular rate, regular rhythm, S1 normal heart sound, S2 normal heart sound, no murmurs, no rub and no gallops GI normal to inspection, nondistended, normoactive bowel sounds, soft to palpation, non-tender and non-distended Extremity no clubbing, cyanosis or edema Skin no rashes or lesions noted General Skin Exam: no breakdown Neuro oriented x3, CN's II-XII intact bilaterally, moves all extremities, no focal motor deficits and no sensory deficits noted Sensorium / Orientation: awake and alert Speech: speech normal Psych affect normal On 06/30/2023, patient was felt to be medically stable for transfer to TCU for inpatient rehab services. Weight / BMI Weight Weight: 143 kg Body Mass Index (BMI) 57.6 ABG / Lab / Microbiology Data 06/29/23 06:58 06/29/23 06:58 Laboratory: Laboratory Results - last 24 hr 06/29/23 06:36: POC Glucose 120 H 06/29/23 06:58: Diff Path Review Reviewed 06/29/23 12:52: POC Glucose 145 H 06/29/23 19:00: POC Glucose 144 H 06/29/23 21:30: POC Glucose 185 H 06/30/23 06:45: POC Glucose 112 H Microbiology: Microbiology 06/27/23 08:00 Sputum, Expectorated/Coughed Gram Stain - Final 06/27/23 08:00 Sputum, Expectorated/Coughed Respiratory Culture - Final Presumptive C albicans 06/25/23 16:05 Blood Culture (Wb) - Anticubital Left Bacteria Detection (PCR) - Final Staphylococcus epidermidis 06/25/23 16:05 Blood Culture (Wb) - Anticubital Left Blood Culture - Final Gram negative yesica Staphylococcus epidermidis 06/25/23 16:33 Blood Culture (Wb) - Anticubital Left Blood Culture - Final Escherichia coli 06/25/23 21:38 Urine, Cystoscopy Urine Culture - Final Escherichia coli 06/25/23 15:29 Urine, Catheterized Urine Culture - Final Escherichia coli 06/26/23 15:45 Stool C. difficile GDH Antigen & Toxins - Final 06/26/23 15:45 Stool C. difficile DNA Amplification - Final 06/25/23 15:29 Urine Catheter - Harris Legionella Antigen - Final 06/25/23 16:29 Mucosa - Nasopharyngeal Respiratory Panel (PCR) - Final 06/25/23 15:29 Urine Catheter - Harris Streptococcus pneumoniae Antigen (M - Final 06/25/23 16:30 Nasal Secretion SARS-CoV-2 & FLU Antigen (Rapid) - Final SARS-CoV-2 (COVID 19) Meaningful Use Info Meaningful Use Diagnoses (Choose all that apply): None applicable Discharge Plan Admission Admit Date/Time: 06/25/23 16:10 Primary Reason for Your Visit: Sepsis, COVID-19, community-acquired pneumonia Attending Provider: Alonso Bautista Primary Care Provider: Corby Heller Chi Consulting Providers: Clementine Prieto; Bertram Chatterjee; Lucas Clemons; Josh Petersen; Conner Marie; Cameron Almazan; Rhonda Victoria NP; Zenon Martinez Discharge Orders/Prescriptions Prescriptions: New acetaminophen 325 mg Tablet 650 mg PO Q6H PRN PRN (Reason: Pain 1-10 Or Fever>100.7) Qty: 0 0RF budesonide 0.5 mg/2 mL Suspension For Nebulization 0.5 mg inhalation Q12H.RT Qty: 0 0RF cefdinir 300 mg Capsule 300 mg PO Q12 Qty: 7 0RF Rx Instructions: continue for 7 doses starting evening 06/30/23 hydrocodone-acetaminophen 5-325 mg Tablet 1 - 2 tab PO Q6H PRN PRN (Reason: Pain Score 4-10) 3 Days Qty: 10 0RF dextromethorphan-guaifenesin 10-100 mg/5 mL Syrup 10 ml PO Q6H PRN PRN (Reason: COUGH) Qty: 0 0RF nystatin [Nyamyc] 100,000 unit/gram Powder 1 applic topical BID Qty: 0 0RF Protocol: *Topical Application Instructions APPLICATION INSTRUCTIONS: B intertriginous areas vancomycin [Firvanq] 25 mg/mL Recon Soln 125 mg PO Q4 Qty: 0 0RF Rx Instructions: continue for 5 days starting 06/30/23 Continued fluticasone propionate 1 SPRAY spray,suspension 2 spray NASAL DAILY citalopram 20 mg tablet 20 mg PO DAILY Patient Comments: TAKE 1/2 (ONE-HALF) OF A TABLET DAILY FOR 7 DAYS then TAKE 1 TABLET DAILY potassium chloride 10 mEq capsule, extended release 20 meq PO DAILY lovastatin 40 mg tablet 40 mg PO QHS Patient Comments: TAKE 1 TABLET DAILY AT BEDTIME levothyroxine 25 mcg tablet 25 mcg PO DAILY Patient Comments: TAKE 1 TABLET BY MOUTH ONCE DAILY pioglitazone 30 mg tablet 30 mg PO DAILY ropinirole 2 mg tablet 2 mg PO QHS Discontinued albuterol sulfate 1 PUFF inhaler 1 - 2 puff inhalation Q6H PRN PRN (Reason: Asthma) fluticasone propionate [Flovent HFA] 44 mcg/actuation HFA aerosol inhaler 1 puff INHALATION DAILY echinacea 500 mg capsule 500 mg PO DAILY Patient Comments: GETS OTC UNSURE OF STRENGTH Rx Instructions: administer with meals No Action Arthritis Pain Compound 1 click topical Q8H PRN (Reason: pain) Referrals / Follow Up: Marie Caldera MD [Med Staff - Active Staff] - See Referral Note (1 week after discharge from the TCU) Corby Heller Chi, MD [Primary Care Provider] - Disposition Disposition (needs filled in before D/C Order can be placed): [facility] Facility Charges/Coding Visit Charges Inpatient E&M: 54493 Disch Hosp >30min
[2023-06-30 10:58] VITALS: BP 123/72; PULSE 79; RESP 18; TEMP 36.4; O2SAT 93
--- NOTE | 2023-06-30 11:16 | NURSING ---
Report called to nurse Allison for pt to be d/c to TCU.
[2023-06-30] MEDS: Arthritis Pain Compound 60 CLICK TUBE TOPICAL (11:40)
[2023-06-30] MEDS: HYDROcodone Bitartrate/Apap 5/325 Tablet PO (11:52)
[2023-06-30 12:06] LABS: Bedside Glucose 144 mg/dL (74-106)
--- NOTE | 2023-06-30 14:06 | CASEMGMT ---
Patient is ready to discharge to [facility]. Plan: d/c to [facility] under skilled level of care Nishi BOJORQUEZ
== END 2023-06-30 14:17 | DRG 853 ==
LOC: ED 16:13 → MS3 16:31 → ICU 19:47 → PCU 06-27 14:27
PROVIDERS: Anesthesiology; Family Medicine; Hospitalist; Internal Medicine Critical Care Medicine; Urology; Admitting Provider Internal Medicine; Emergency Provider Emergency Medicine; PCP Family Medicine Geriatric Medicine; Visit Provider Internal Medicine
PROC: 0T788DZ Dilation of Bilateral Ureters with Intraluminal Device, Via Natural or Artificial Opening Endoscopic (ICD-10-PCS; principal; 2023-06-25 20:30)
DX: A41.51 Sepsis due to Escherichia coli [E. coli] (principal); R65.21 Severe sepsis with septic shock; J96.01 Acute respiratory failure with hypoxia; U07.1 COVID-19; J18.9 Pneumonia, unspecified organism; Z68.43 Body mass index [BMI] 50.0-59.9, adult; N17.9 Acute kidney failure, unspecified; E87.1 Hypo-osmolality and hyponatremia; N39.0 Urinary tract infection, site not specified; D69.6 Thrombocytopenia, unspecified; I27.20 Pulmonary hypertension, unspecified; E11.9 Type 2 diabetes mellitus without complications; Z79.4 Long term (current) use of insulin; E66.01 Morbid (severe) obesity due to excess calories; E03.9 Hypothyroidism, unspecified; F32.A Depression, unspecified; I10 Essential (primary) hypertension; E86.0 Dehydration; E78.5 Hyperlipidemia, unspecified; F41.9 Anxiety disorder, unspecified; M79.7 Fibromyalgia; M19.90 Unspecified osteoarthritis, unspecified site; B37.2 Candidiasis of skin and nail; Z79.891 Long term (current) use of opiate analgesic; Z86.16 Personal history of COVID-19; Z79.51 Long term (current) use of inhaled steroids; N28.89 Other specified disorders of kidney and ureter; Z87.442 Personal history of urinary calculi
CPT/HCPCS: 36415; 36600; 71045; 71046; 74176; 76000; 80048; 80053; 80202; 81001; 82803; 82962; 83605; 83735; 84100; 85025; 85610; 85730; 87040; 87070; 87077; 87086; 87088; 87149; 87186; 87205; 87428; 87449; 87493; 87633; 87641; 93005; 93306; 94002; 94003; 94640; 94667; 94668; 94762; 97162; 97165; 97530; 97535; 99285; J2185; J7030; J7040; J7050; J7120; 90662; A4216; C1751; C2617; J1940; J3490

== ENCOUNTER 2023-06-30 14:43 | Inpatient (IN) | payer MEDICARE, OTHER, SELFPAY ==
[2023-06-30 14:59] VITALS: BP 122/56; PULSE 80; RESP 18; TEMP 36.6; O2SAT 90; BMI 51.0
[2023-06-30 15:03] VITALS: BP 122/56; PULSE 80; RESP 18; TEMP 36.6; O2SAT 90
[2023-06-30] MEDS: Vancomycin 125 MG/5 ML Susp PO.SYRINGE PO ×2 (18:08→21:20)
--- NOTE | 2023-06-30 21:16 | HP.PCM_ITS ---
HPI - General General Date of Admission: 06/30/23 Date of Service: 06/30/23 Chief Complaint: Here for rehabilitation. HPI Narrative 06/25/2023 EDUAR GOMEZ, is a 73 Female who presents to [facility] Emergency Department with fever, cough, urinary frequency. Fever, cough, urinary frequency, weakness, nausea, vomiting. Chest X-ray showed left lower lobe pneumonia. Creatinine 1.62. Urinalysis consistent with urinary tract infection, urine culture sent, blood culture sent. Levaquin given. 06/25/2023 Admit to Hospital. Ceftriaxone, Azithromycin for complicated urinary tract infection, left lower lobe pneumonia. Admit to ICU for hypotension. CT abdomen/pelvis showed left ureteral obstruction, left hydronephrosis, bilateral renal calculi, Dr. Caldera consulted. IV fluids for acute kidney injury. 06/25/2023 Dr. Caldera performed cystoscopy with bilateral ureteral stent insertion. 06/26/2023 IV fluids, pressors for septic shock. 06/26/2023 Echo LVSF 45%. Right ventricular systolic pressure 45mm HG. 06/26/2023 Covid-19 positive. 06/27/2023 Off pressors. Broad spectrum antibiotics for complicated urinary tract infection/pneumonia. Vancomycin PO for clostridium difficile diarrhea. 06/28/2023 Doing well. Meropenem IV for UTI/Pneumonia. Vancomycin PO for C. diff colitis. 06/29/2023 Logan for right knee pain. Meropenem to Cefdinir for UTI/Pneumonia. Vancomycin PO for C. Diff colitis. No symptoms for covid-19, no remdesivir, no steroids recommended. 06/30/2023 Admit to TCU with debility, here for rehabilitation, strengthening, prior to discharge home with family. [facility] Medical History (Updated 06/30/23 @ 21:[address] Corby Heller MD) Anemia Anxiety Asthma COVID-19 Depression Diabetes Fibromyalgia Foot arch pain Hypertension Hypothyroidism Kidney stones Osteoarthritis Thrombocytopenia Home Medications fluticasone propionate 50 mcg/actuation nasal spray,suspension 2 spray NASAL DAILY allergies 12/07/16 [History Last Taken 06/30/23] citalopram 20 mg tablet 20 mg PO DAILY DEPRESSION 04/26/21 [History Last Taken 06/30/23] levothyroxine 25 mcg tablet 25 mcg PO DAILY thyroid 04/29/21 [History Last Taken 06/30/23] lovastatin 40 mg tablet 40 mg PO QHS cholesterol 04/29/21 [History Last Taken 06/30/23] potassium chloride 10 mEq capsule,extended release 20 meq PO DAILY supplement 04/29/21 [History Last Taken 06/22/23] pioglitazone 30 mg tablet 30 mg PO DAILY DM 06/25/23 [History Last Taken 06/22/23] ropinirole 2 mg tablet 2 mg PO QHS RLS 06/25/23 [History Last Taken 06/29/23] Arthritis Pain Compound 1 click topical Q8H PRN pain 06/30/23 [History Last Taken 06/29/23] acetaminophen 325 mg tablet 650 mg (2 x 325 mg) PO Q6H PRN PRN Pain 1-10 Or Fever>100.7 #0 tabs 06/30/23 [Rx Last Taken 06/30/23] budesonide 0.5 mg/2 mL suspension for nebulization 0.5 mg (2 mL) inhalation Q12H.RT breathing #0 mL 06/30/23 [Rx Last Taken 06/30/23] cefdinir 300 mg capsule 300 mg PO Q12 infection #7 caps 06/30/23 [Rx Last Taken 06/30/23] dextromethorphan-guaifenesin 10 mg-100 mg/5 mL oral syrup 10 ml PO Q6H PRN PRN COUGH #0 mL 06/30/23 [Rx Last Taken 06/28/23] hydrocodone-acetaminophen 5-325mg 5mg-325mg 1 - 2 tab PO Q6H PRN PRN Pain Score 4-10 3 days #10 tabs 06/30/23 [Rx Last Taken 06/29/23] nystatin 100,000 unit/gram topical powder (Nyamyc) 1 applic topical BID moisture/ #0 grams 06/30/23 [Rx Last Taken 06/29/23] vancomycin 25 mg/mL oral solution (Firvanq) 125 mg (5 mL) PO Q4 antibiotic #0 mL 06/30/23 [Rx Last Taken 06/30/23] Allergy/AdvReac Type Severity Reaction Status Date / Time cephalexin monohydrate Allergy Swelling Verified 06/25/23 13:46 [From Keflex] ibuprofen Allergy Swelling Verified 06/25/23 13:46 oxaprozin [From Daypro] Allergy Swelling Verified 06/25/23 13:46 tramadol HCl [From Ultram] Allergy Swelling Verified 06/25/23 13:46 celecoxib [From Celebrex] AdvReac DIZZY AND Verified 06/25/23 13:46 HURTS AROUND MY LIVER Family History Other Diabetes Hypertension Surgical History (Updated 06/30/23 @ 21:[address] Corby Heller MD) History of ureter stent Social History (Updated 06/30/23 @ 21:[address] oCrby Heller MD) household members: children housing: house Smoking Status: Never smoker alcohol intake: never substance use type: does not use ROS Constitutional Constitutional: Denies chills, fever(s) or weight gain ENT HEENT: Denies headache(s), nasal congestion or nasal discharge Cardiovascular Cardiovascular: Denies chest pain or palpitations Respiratory/Chest Respiratory/Chest: Denies cough, excessive phlegm production or shortness of breath with exertion Gastrointestinal Gastrointestinal: Denies abdominal pain, nausea or vomiting Genitourinary Genitourinary: Denies dysuria Musculoskeletal Musculoskeletal: Denies joint pain or joint swelling Integumentary Integumentary: Denies rash or wounds Neurologic Neurologic: Denies focal weakness, numbness or tingling Psychiatric Psychiatric: Denies anxiety, auditory hallucinations, depression, homicidal ideation or suicidal ideation Vital Signs Vital Signs Vital Signs: 06/30/23 15:03 06/30/23 14:59 06/30/23 14:59 Temperature 97.8 F 97.8 F Temperature Source Temporal Temporal Pulse Rate 80 80 Pulse Rhythm Regular Pulse Strength Normal (2+) Respiratory Rate 18 18 Respiratory Effort Normal Non-Labored Respiratory Depth Normal Respiratory Pattern Normal Blood Pressure 122/56 H 122/56 H Blood Pressure Mean 78 78 Blood Pressure Source Monitor Monitor Blood Pressure Position Semi-Fowlers Semi-Fowlers Blood Pressure Location Right Arm Right Arm Pulse Ox 90 90 Oxygen Delivery Method Room Air Room Air Room Air Weight Weight: 126.7 kg Body Mass Index (BMI) 51.0 Physical Exam Const alert General Appearance: cooperative HEENT normocephalic Eyes PERRL and EOMs intact bilaterally Neck supple, no JVD and no carotid bruits Resp normal respiratory effort, normal air movement and clear to auscultation bilaterally Cardio regular rate and regular rhythm GI normal to inspection, nondistended, normoactive bowel sounds, non-tender and non-distended Extremity normal capillary refill General Extremity: Negative for edema Skin no rashes or lesions noted General Skin Exam: no breakdown Psych affect normal Appearance: appropriate Assessment & Plan Assessment/Plan (1) Debility: (2) Septic shock: (3) Complicated urinary tract infection: (4) Bilateral kidney stones: (5) Left lower lobe pneumonia: (6) COVID-19: (7) CARA (acute kidney injury): (8) Clostridium difficile diarrhea: (9) Asthma: (10) Depression: (11) Restless leg syndrome: (12) Hypokalemia: (13) Hypertension: PLAN: Plan 73 year old female with below past medical history hospitalized for septic shock secondary to complicated urinary tract infection from bilateral kidney stones requiring bilateral ureteral stents, complicated by left lower lobe pneumonia, covid-19, clostridium difficile diarrhea, acute kidney injury, admitted to TCU with debility, here for rehabilitation, strengthening, prior to discharge home with family. * Debility - PT/OT. * Pain - Tylenol 1000mg q8, Arthritis 2 click tid right knee, Oxycodone 5mg q4h prn pain (1-10). * Bowel - Monitor. * Adult immunization - Administer pneumonia vaccine, covid19 vaccine, flu vaccine as appropriate. * DVT prophylaxis - Lovenox 40mg sc daily. * Hyperlipidemia - Atorvastatin 10mg qhs. * Asthma - Budesonide 0.5mg q12h. * Complicated UTI - Cefdinir 300mg Q12h thru 07/03/2023. * Depression - Citalopram 20mg daily, stable chronic supervisor intermediates use, GDR not recommended. * Allergic Rhinitis - Flonase 2 sprays daily. * Cough - Robitussin DM 10mg q6h prn. * Hypothyroidism - Levothyroxine 25mcg daily. * Tinea Corporis - Nystatin powder topical bid. * Diabetes Mellitus II - Pioglitazone 30mg daily. * Hypokalemia - KCL 20meq daily. * Restless leg syndrome - Mirapex 1mg qhs. * C. Diff - Vancomycin 125mg q6 thru 07/05/2023. * Covid-19 - Asymptomatic.
[2023-06-30] MEDS: Nystatin Powder 15gm Bottle 1 APPLIC TOPICAL (21:23)
[2023-06-30] MEDS: Atorvastatin Calcium 10 MG Tablet PO (21:24)
[2023-06-30] MEDS: Pramipexole Di-HCl 1 MG Tablet PO (21:24)
[2023-06-30] MEDS: Cefdinir 300 MG Capsule PO (21:24)
[2023-06-30] MEDS: HYDROcodone Bitartrate/Apap 5/325 Tablet PO (21:29)
[2023-06-30] MEDS: Arthritis Pain Compound 60 CLICK TUBE TOPICAL ×2 (21:29→22:40)
[2023-07-01] MEDS: Acetaminophen 500 MG Tablet 1000 MG PO ×3 (05:57→21:30)
[2023-07-01] MEDS: Enoxaparin 40 MG/0.4 ML Syringe SC (05:58)
[2023-07-01] MEDS: Vancomycin 125 MG/5 ML Susp PO.SYRINGE PO ×3 (05:59→17:41)
[2023-07-01 06:01] LABS: Hematocrit 30.2 % (37-47); Hemoglobin 9.3 g/dL (12.0-15.0); Mean Corp Hgb Conc 30.8 g/dL (32-36); Mean Corpuscular Hgb 29.9 pg (27.0-32.0); Mean Corpuscular Volume 97.1 fL (81-99); Mean Platelet Vol. 9.6 fl (6.2-12.0); POSITIVE COUNT YES; POSITIVE MORPHOLOGY YES; Platelet Count 305 K/mm3 (150-450); RBC Distribution Width CV 15.6 % (11.6-14.6); Red Blood Count 3.11 M/mm3 (4.2-5.4); White Blood Count 10.9 K/mm3 (4.4-11.0)
[2023-07-01] MEDS: Levothyroxine 25 MCG TABLET PO (06:01)
[2023-07-01] MEDS: Arthritis Pain Compound 60 CLICK TUBE TOPICAL ×4 (06:02→21:26)
[2023-07-01 06:16] LABS: Differential Indicated MANUAL DIFF
[2023-07-01 06:34] LABS: Anion Gap 3 (5-15); BUN 25 mg/dL (7-18); BUN/Creat Ratio 32.2 RATIO (10-20); Calcium,Total 8.4 mg/dL (8.5-10.1); Chloride 108 mmol/L (98-107); Creatinine, Serum 0.78 mg/dL (0.55-1.02); EST Glomerular Filtration Rate 77 mL/min (>60); Est Glom Filt Rate - Afr Amer 93 mL/min (>60); Estimated Creatinine Clearance 39.04 ml/min; Glucose 137 mg/dL (74-106); Potassium 4.5 mmol/L (3.5-5.1); Sodium Level 137 mmol/L (136-145)
[2023-07-01 06:43] LABS: Anisocytosis 1+
[2023-07-01 06:47] LABS: Absolute Lymphocyte Count 1.75 X10^3/uL (0.83-4.51); Neutrophil-Segmented 58 % (47-70); Total Cells Counted 100 (MANUAL DIFF)
[2023-07-01 06:48] LABS: Eosinophil 2 % (0-5); Lymphocyte 16 % (19-41); Metamyelocyte 1 % (0-1); Monocyte 7 % (0-10); Myelocyte 8 % (0-0); Neutrophil-Band 6 % (0-5); Promyelocyte 2 % (0-0)
[2023-07-01 07:07] LABS: Platelet Estimate ADEQUATE (ADEQ); Red Cell Morphology NORM C+C NORMAL (NORM C&C)
[2023-07-01 07:30] VITALS: RESP 20
[2023-07-01] MEDS: Budesonide Respules 0.5 MG/2 ML AMPUL.NEB. INHALATION ×2 (07:30→19:18)
[2023-07-01 10:46] LABS: Pathologist Review Reviewed
[2023-07-01] MEDS: Iron Polysaccharide Complex 150 MG CAPSULE PO (10:48)
[2023-07-01] MEDS: Tuberculin,Purif.prot.deriv. 50 TU/ML Vial 0.1 ML ID (10:48)
[2023-07-01] MEDS: Cefdinir 300 MG Capsule PO ×2 (10:53→21:26)
[2023-07-01] MEDS: Citalopram 20 MG Tablet PO (10:53)
[2023-07-01] MEDS: Pioglitazone Hydrochloride 30 MG Tablet PO (10:53)
[2023-07-01] MEDS: Nystatin Powder 15gm Bottle 1 APPLIC TOPICAL ×2 (10:54→21:26)
[2023-07-01] MEDS: Fluticasone 0.05% 1 SPRAY NASAL.SRY 2 SPRAY NASAL (10:54)
[2023-07-01 11:07] VITALS: BP 131/74; PULSE 78; RESP 18; TEMP 36.6; O2SAT 95
--- NOTE | 2023-07-01 12:16 | NURSING ---
dressing removed from RT neck where previous IJ resided. area scabbed over, no s/s infection. left [employer]
--- NOTE | 2023-07-01 14:00 | CASEMGMT ---
Social Work Met with patient to complete initial assessment. Introduced self and role. Verified/updated contacts. Discussed code status and pt confirms full code. Educated to Medicare benefit. Encouraged to contact secondary insurance to ensure copay coverage. 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 SW will continue to follow for DC planning. Bebe Ellsworth, STALIN PISANOW
--- NOTE | 2023-07-01 14:08 | PHA.CONS_ITS ---
Documented by User: Elgin Humphrey 07/01/23 15:26 TCU RX Drug Regimen Review Subjective/Objective Subjective/Objective: Subjective: 73 year old female with below past medical history hospitalized for septic shock secondary to complicated urinary tract infection from bilateral kidney stones requiring bilateral ureteral stents, complicated by left lower lobe pneumonia, Covid-19, clostridium difficile diarrhea, acute kidney injury, admitted to TCU with debility, here for rehabilitation, strengthening, prior to discharge home with family. Objective: Allergies cephalexin monohydrate [From Keflex] Allergy (Verified 06/25/23 13:46) Swelling ibuprofen Allergy (Verified 06/25/23 13:46) Swelling STATES CAN TAKE LOW DOSES ONLY oxaprozin [From Daypro] Allergy (Verified 06/25/23 13:46) Swelling tramadol HCl [From Ultram] Allergy (Verified 06/25/23 13:46) Swelling celecoxib [From Celebrex] Adverse Reaction (Verified 06/25/23 13:46) DIZZY AND HURTS AROUND MY LIVER DIZZY AND HURTS AROUND MY LIVER Current Medications Generic Name Dose Route Start Last Admin Trade Name Freq PRN Reason Stop Dose Admin Acetaminophen 1,000 mg 06/30/23 22:00 07/01/23 13:48 Acetaminophen 500 Mg Tablet PO 1,000 mg Q8 BARB Administration Atorvastatin Calcium 10 mg 06/30/23 22:00 06/30/23 21:24 Atorvastatin Calcium 10 Mg Tablet PO 10 mg QHS BARB Administration Budesonide 0.5 mg 06/30/23 15:00 07/01/23 07:30 Budesonide Respules 0.5 Mg/2 Ml Ampul.Neb. INHALATION 0.5 mg Q12H.RT BARB Administration Cefdinir 300 mg 06/30/23 22:00 07/01/23 10:53 Cefdinir 300 Mg Capsule PO 07/03/23 22:01 300 mg Q12 BARB Administration Citalopram Hydrobromide 20 mg 07/01/23 10:00 07/01/23 10:53 Citalopram 20 Mg Tablet PO 20 mg DAILY BARB Administration Compound Med 2 click 06/30/23 22:00 07/01/23 13:48 Arthritis Pain Compound 60 Click Tube TOPICAL 2 click Q8H BARB Administration Fluticasone Propionate 2 spray 07/01/23 10:00 07/01/23 10:54 Fluticasone 0.05% 1 [place] Nasal.Sry NASAL 2 spray DAILY BARB Administration Guaifenesin 10 ml 06/30/23 14:59 Guaifenesin Dm 10 Ml Udc PO Q6H PRN PRN COUGH Levothyroxine Sodium 25 mcg 07/01/23 06:00 07/01/23 06:01 Levothyroxine 25 Mcg Tablet PO 25 mcg 0600 BARB Administration Nystatin 1 applic 06/30/23 22:00 07/01/23 10:54 Nystatin Powder 15gm Bottle TOPICAL 1 applic BID BARB Administration Protocol Oxycodone HCl 5 mg 06/30/23 21:37 Oxycodone 5 Mg Tablet PO Q4H PRN PRN Pain Score 1-10 Pioglitazone HCl 30 mg 07/01/23 10:00 07/01/23 10:53 Pioglitazone Hydrochloride 30 Mg Tablet PO 30 mg DAILY BARB Administration Polysaccharide Iron Complex 150 mg 07/01/23 10:00 07/01/23 10:48 Iron Polysaccharide Complex 150 Mg Capsule PO 150 mg DAILY BARB Administration Potassium Chloride 20 meq 07/01/23 08:00 07/01/23 10:58 Potassium Chloride Oral Tablet 20 Meq PO Not Given DAILYCM BARB Pramipexole Dihydrochloride 1 mg 06/30/23 22:00 06/30/23 21:24 Pramipexole Di-Hcl 1 Mg Tablet PO 1 mg QHS BARB Administration Sodium Chloride 10 - 40 ml 06/30/23 15:21 0.9% Saline Lock 10 Ml Syringe IV UD PRN SALINE FLUSH Tuberculin PPD 0.1 ml 07/08/23 10:00 Tuberculin,Purif.Prot.Deriv. 50 Tu/Ml Vial ID 07/08/23 10:01 X1 ONE Vancomycin HCl 125 mg 07/01/23 00:00 07/01/23 10:52 Vancomycin 125 Mg/5 Ml Susp Po.Syringe PO 07/06/23 00:01 125 mg Q6 BARB Administration Problem List (Updated 06/30/23 @ 21:[address] Corby Heller MD) Hypokalemia (Acute) Hypertension (Chronic) Restless leg syndrome (Acute) Depression (Acute) Asthma (Acute) Clostridium difficile diarrhea (Acute) COVID-19 (Acute) Bilateral kidney stones (Acute) Debility (Acute) Septic shock (Acute) Left lower lobe pneumonia (Acute) Complicated urinary tract infection (Acute) CARA (acute kidney injury) (Acute) Vital Signs Temp Pulse Resp BP Pulse Ox O2 Del Method 98 F 78 18 131/74 H 95 Room Air 07/01/23 11:07 07/01/23 11:07 07/01/23 11:07 07/01/23 11:07 07/01/23 11:07 07/01/23 11:07 Oxygen Delivery Method Room Air Weight: 126.7 kg Body Mass Index (BMI) 51.0 Sodium 137 mmol/L (136-145) 07/01/23 05:55 Potassium 4.5 mmol/L (3.5-5.1) 07/01/23 05:55 Chloride 108 mmol/L (98-107) H 07/01/23 05:55 Carbon Dioxide 26.0 mmol/L (21.0-32.0) 07/01/23 05:55 Anion Gap 3 (5-15) L 07/01/23 05:55 BUN 25 mg/dL (7-18) H 07/01/23 05:55 Creatinine 0.78 mg/dL (0.55-1.02) 07/01/23 05:55 Est GFR (MDRD) Af Amer 93 mL/min (>60) 07/01/23 05:55 Est GFR (MDRD) Non-Af 77 mL/min (>60) 07/01/23 05:55 BUN/Creatinine Ratio 32.2 RATIO (10-20) H 07/01/23 05:55 Glucose 137 mg/dL (74-106) H 07/01/23 05:55 Assessment/Plan: 1. Pain: acetaminophen 1000 mg PO Q8H, oxycodone 5 mg PO Q4H PRN pain (1-10), arthritis pain compound 2 clicks topically Q8H. The patient has not used any PRN doses of oxycodone this admission. Please continue to monitor PRN pain medication usage, pain levels, LFTs (AST/ALT = 73/32 U/L on 06/26/23), for respiratory depression, constipation and falls/syncope/ataxia (oxycodone Beer's criteria). 2. UTI: cefdinir 300 mg PO Q12H through 07/03/23. Please continue to monitor for s/s of unresolved UTI including dysuria, frequency, and urgency, as well as for fever (recent temperatures = 97 - 99.2 F), chills, WBC count (WBC = 10.9 K/mm3 on 07/01/23), and for diarrhea that could indicate continued clostridium difficile infection (the patient is currently being treated for clostridium difficile infection). 3. Clostridium difficile infection: vancomycin 125 mg PO Q6H through 07/05/23.The patient's last documented bowel movement was on 06/28/23. Please continue to monitor for s/s of clostridium difficile infection resolution including improvement in diarrhea, WBC count (WBC = 10.9 K/mm3 on 07/01/23), and fevers (recent temperatures = 97 - 99.2 F). If the patient does not have further bouts of diarrhea, consider ordering a mediation PRN for constipation such as senna/docusate 2 tabs PO BID PRN constipation. 4. Hyperlipidemia: atorvastatin 10 mg PO QHS. Please continue to monitor LFTs (AST/ALT = 73/32 U/L on 06/26/23), for myalgias, and lipid levels (no recent lipid levels documented). Consider ordering a lipid panel to asses the need for continued atorvastatin. 5. Asthma: budesonide 0.5 mg inhalation nebulized Q12H. Please continue to monitor for s/s of asthma exacerbation, for s/s of pneumonia, and for oral thrush. To help prevent oral thrush please consider rinsing the patients mouth with water after each administration. 6. Diabetes Mellitus II: pioglitazone 30 mg PO daily. Please continue to monitor blood sugars (recent range = 104-233 mg/dL), hemoglobin A1C (no recent A1C documented), for s/s of fluid retention including lower extremity edema, crackles in lungs with shortness of breath, and LFTs (AST/ALT = 73/32 U/L on 06/26/23). Please consider ordering a hemoglobin A1C for the patient as she does not have a recent one documented. 7. Hypothyroidism: levothyroxine 25 mcg PO daily. Please continue to monitor for s/s of hyper/hypothyroidism, TSH levels (TSH = 3.47 uIU/mL on 04/21/23), and T4 levels (free T4 = 1.18 ng/dL on 03/28/14). Please consider ordering a free T4 level if clinically indicated. 8. Hypokalemia: potassium chloride 20 mEq PO daily. Please continue to monitor potassium levels (K = 4.5 mmol/L on 07/01/23), and for GI distress. If GI distress occurs with potassium chloride administration please consider giving with food. 9. Allergic Rhinitis/Cough: fluticasone 0.05% nasal spray 2 sprays in each nostril daily, guaifenesin 10 mL PO Q6H PRN cough. The patient has not used any doses of PRN guaifenesin to date. Please continue to monitor for cough, allergy symptoms, PRN medication usage, headache, epistaxis, and drowsiness. 10. Iron deficiency: iron polysaccharide 150 mg PO daily. Please continue to monitor hemoglobin levels (Hgb = 9.3 g/dL on 07/01/23), for constipation, and iron levels (no recent iron levels documented). Please consider ordering iron levels to determine extent of patient's iron deficiency and to ensure the patient is appropriately being treated for iron deficiency anemia. 11. Tinea Corporis: nystatin topically powder [address] ease continue to monitor for resolution of tinea corporis. Assessment/Plan for indications treated with psychotropic medications: 1. Depression: citalopram 20 mg PO daily. Please see provider note regarding stable chronic long-term therapy GDR not advised. Please continue to monitor for SI, sodium levels (Na = 137 mmol/L on 07/01/23), syncope/falls/ataxia, and for s/s of serotonin syndrome. 2. Restless leg syndrome: pramipexole 1 mg PO QHS. Stable long-term dose GDR not recommended. Please continue to monitor for nausea/vomiting, for orthostatic hypotension (recent BPs = 106-134/56-99 mmHg), and for somnolence. Medical chart and medication regimen reviewed. The following medication irregularities or issues were identified: 1. Clostridium difficile infection: vancomycin 125 mg PO Q6H through 07/05/23. If the patient does not have further bouts of diarrhea, consider ordering a mediation PRN for constipation such as senna/docusate 2 tabs PO BID PRN constipation. 2. Hyperlipidemia: atorvastatin 10 mg PO QHS. Consider ordering a lipid panel to asses the need for continued atorvastatin. 3. Diabetes Mellitus II: pioglitazone 30 mg PO daily. Please consider ordering a hemoglobin A1C for the patient as she does not have a recent one documented. 4. Iron deficiency: iron polysaccharide 150 mg PO daily. Please consider ordering iron levels to determine extent of patient's iron deficiency and to ensure the patient is appropriately being treated for iron deficiency anemia. Date Date of Note:: 07/01/23 Documented by User: Dr. Corby Heller MD 07/01/23 17:21 TCU RX Drug Regimen Review Provider Comments Provider responsibility Provider Comments to Recommendations by Pharmacy: Agree
--- NOTE | 2023-07-01 14:27 | NURSING ---
Updated patient and Kaia (sister) that patient and staff tested covid positive.
[2023-07-01 19:18] VITALS: PULSE 85; RESP 18
[2023-07-01] MEDS: Pramipexole Di-HCl 1 MG Tablet PO (21:25)
[2023-07-01] MEDS: Atorvastatin Calcium 10 MG Tablet PO (21:25)
[2023-07-01 21:41] VITALS: RESP 18
[2023-07-02] MEDS: Vancomycin 125 MG/5 ML Susp PO.SYRINGE PO ×5 (00:15→23:54)
[2023-07-02] MEDS: Levothyroxine 25 MCG TABLET PO (05:40)
[2023-07-02] MEDS: Arthritis Pain Compound 60 CLICK TUBE TOPICAL ×3 (05:40→22:07)
[2023-07-02] MEDS: Acetaminophen 500 MG Tablet 1000 MG PO ×3 (05:40→21:52)
[2023-07-02 06:57] LABS: Bedside Glucose 105 mg/dL (74-106)
[2023-07-02] MEDS: Iron Polysaccharide Complex 150 MG CAPSULE PO (08:48)
[2023-07-02] MEDS: Pioglitazone Hydrochloride 30 MG Tablet PO (08:48)
[2023-07-02] MEDS: Cefdinir 300 MG Capsule PO ×2 (08:48→21:50)
[2023-07-02] MEDS: Citalopram 20 MG Tablet PO ×2 (08:48→21:50)
[2023-07-02] MEDS: Fluticasone 0.05% 1 SPRAY NASAL.SRY 2 SPRAY NASAL (09:01)
[2023-07-02] MEDS: Nystatin Powder 15gm Bottle 1 APPLIC TOPICAL ×2 (09:01→21:57)
[2023-07-02 10:00] VITALS: RESP 18
[2023-07-02 15:08] VITALS: BP 129/52; PULSE 71; RESP 16; TEMP 36.8; O2SAT 96
[2023-07-02 19:17] VITALS: PULSE 88; RESP 22
[2023-07-02] MEDS: Budesonide Respules 0.5 MG/2 ML AMPUL.NEB. INHALATION (19:17)
[2023-07-02] MEDS: Pramipexole Di-HCl 1 MG Tablet PO (21:50)
[2023-07-02] MEDS: Atorvastatin Calcium 10 MG Tablet PO (21:50)
[2023-07-03] MEDS: Acetaminophen 500 MG Tablet 1000 MG PO ×3 (05:38→21:07)
[2023-07-03] MEDS: Levothyroxine 25 MCG TABLET PO (05:38)
[2023-07-03] MEDS: Vancomycin 125 MG/5 ML Susp PO.SYRINGE PO ×4 (05:38→22:55)
[2023-07-03] MEDS: Arthritis Pain Compound 60 CLICK TUBE TOPICAL ×3 (05:47→21:08)
[2023-07-03 06:34] LABS: Bedside Glucose 106 mg/dL (74-106)
[2023-07-03 07:00] VITALS: PULSE 85; RESP 20; O2SAT 94
[2023-07-03] MEDS: Budesonide Respules 0.5 MG/2 ML AMPUL.NEB. INHALATION ×2 (07:00→19:32)
[2023-07-03 08:50] LABS: Hematocrit 31.4 % (37-47); Hemoglobin 9.9 g/dL (12.0-15.0)
[2023-07-03] MEDS: Pioglitazone Hydrochloride 30 MG Tablet PO (10:27)
[2023-07-03] MEDS: Iron Polysaccharide Complex 150 MG CAPSULE PO (10:27)
[2023-07-03] MEDS: Cefdinir 300 MG Capsule PO ×2 (10:28→21:05)
[2023-07-03] MEDS: Nystatin Powder 15gm Bottle 1 APPLIC TOPICAL (10:35)
[2023-07-03] MEDS: Fluticasone 0.05% 1 SPRAY NASAL.SRY 2 SPRAY NASAL (10:35)
[2023-07-03 13:45] VITALS: PULSE 66; RESP 18; O2SAT 96
[2023-07-03 15:22] VITALS: BP 137/67; PULSE 68; RESP 18; TEMP 36.4; O2SAT 93
[2023-07-03 19:32] VITALS: PULSE 83; RESP 20
[2023-07-03] MEDS: Citalopram 20 MG Tablet PO (21:04)
[2023-07-03] MEDS: Atorvastatin Calcium 10 MG Tablet PO (21:04)
[2023-07-03] MEDS: Pramipexole Di-HCl 1 MG Tablet PO (21:05)
[2023-07-03] MEDS: Miconazole Nitrate 43 GM Bottle 1 APPLIC TOPICAL (22:57)
[2023-07-04] MEDS: Levothyroxine 25 MCG TABLET PO (05:46)
[2023-07-04] MEDS: Arthritis Pain Compound 60 CLICK TUBE TOPICAL ×3 (05:47→20:39)
[2023-07-04] MEDS: Acetaminophen 500 MG Tablet 1000 MG PO ×3 (05:48→20:40)
[2023-07-04] MEDS: Vancomycin 125 MG/5 ML Susp PO.SYRINGE PO ×4 (05:57→23:31)
--- NOTE | 2023-07-04 06:22 | NURSING ---
Continues covid precautions per policy
[2023-07-04 06:39] LABS: Bedside Glucose 131 mg/dL (74-106)
[2023-07-04 07:15] VITALS: PULSE 75; RESP 18
[2023-07-04] MEDS: Budesonide Respules 0.5 MG/2 ML AMPUL.NEB. INHALATION ×2 (07:15→19:17)
--- NOTE | 2023-07-04 09:45 | NURSING ---
ALL CARE GIVEN IN ROOM DUE TO PT IN PRECAUTIONS FOR COVID.
[2023-07-04] MEDS: Pioglitazone Hydrochloride 30 MG Tablet PO (09:47)
[2023-07-04] MEDS: Iron Polysaccharide Complex 150 MG CAPSULE PO (09:48)
[2023-07-04] MEDS: Miconazole Nitrate 43 GM Bottle 1 APPLIC TOPICAL ×2 (09:53→20:39)
[2023-07-04] MEDS: Fluticasone 0.05% 1 SPRAY NASAL.SRY 2 SPRAY NASAL (09:54)
[2023-07-04 16:00] VITALS: BP 149/60; PULSE 82; RESP 16; TEMP 36.9; O2SAT 94
[2023-07-04 19:18] VITALS: PULSE 76; RESP 18
[2023-07-04 20:05] VITALS: PULSE 82; RESP 18; O2SAT 92
[2023-07-04] MEDS: Pramipexole Di-HCl 1 MG Tablet PO (20:38)
[2023-07-04] MEDS: Atorvastatin Calcium 10 MG Tablet PO (20:38)
[2023-07-04] MEDS: Citalopram 20 MG Tablet PO (20:39)
[2023-07-05] MEDS: Arthritis Pain Compound 60 CLICK TUBE TOPICAL ×3 (05:26→20:36)
[2023-07-05] MEDS: Levothyroxine 25 MCG TABLET PO (05:26)
[2023-07-05] MEDS: Acetaminophen 500 MG Tablet 1000 MG PO ×3 (05:27→20:37)
[2023-07-05] MEDS: Vancomycin 125 MG/5 ML Susp PO.SYRINGE PO ×4 (05:27→23:41)
[2023-07-05 05:35] VITALS: PULSE 86; RESP 14; O2SAT 91
[2023-07-05 05:55] LABS: Hematocrit 31.7 % (37-47); Hemoglobin 9.7 g/dL (12.0-15.0)
[2023-07-05 07:25] LABS: Bedside Glucose 108 mg/dL (74-106)
[2023-07-05 07:29] VITALS: PULSE 72; RESP 16; O2SAT 93
[2023-07-05] MEDS: Budesonide Respules 0.5 MG/2 ML AMPUL.NEB. INHALATION ×2 (07:29→20:25)
[2023-07-05] MEDS: Pioglitazone Hydrochloride 30 MG Tablet PO (08:43)
[2023-07-05] MEDS: Iron Polysaccharide Complex 150 MG CAPSULE PO (08:43)
[2023-07-05] MEDS: Potassium Chloride Oral Soln 20 MEQ/15 ML UDC PO (08:43)
[2023-07-05] MEDS: Miconazole Nitrate 43 GM Bottle 1 APPLIC TOPICAL ×2 (08:54→20:36)
[2023-07-05] MEDS: Potassium Chloride Oral Tablet 20 MEQ PO (10:58)
[2023-07-05] MEDS: Fluticasone 0.05% 1 SPRAY NASAL.SRY 2 SPRAY NASAL (11:05)
[2023-07-05] MEDS: BENZOCAINE/MENTHOL 1 LOZENGE MUCOUS MEM (13:48)
[2023-07-05] MEDS: guaiFENesin Dm 10 ML UDC PO (13:48)
--- NOTE | 2023-07-05 14:49 | NS ---
MST score = 2. Food dislikes: egg salad, fish/seafood, mushrooms and white milk (except for on cereal). Provided written copy of daily specials/first choice menu w/ instructions on how to order.
[2023-07-05 15:12] VITALS: BP 131/68; PULSE 71; RESP 16; TEMP 36.9; O2SAT 97
[2023-07-05 20:25] VITALS: PULSE 79; RESP 22
[2023-07-05] MEDS: Citalopram 20 MG Tablet PO (20:35)
[2023-07-05] MEDS: Atorvastatin Calcium 10 MG Tablet PO (20:36)
[2023-07-05] MEDS: Pramipexole Di-HCl 1 MG Tablet PO (20:36)
[2023-07-06] MEDS: Acetaminophen 500 MG Tablet 1000 MG PO ×3 (05:32→21:17)
[2023-07-06] MEDS: Levothyroxine 25 MCG TABLET PO (05:33)
[2023-07-06] MEDS: Arthritis Pain Compound 60 CLICK TUBE TOPICAL ×3 (05:33→21:16)
[2023-07-06 06:32] LABS: Bedside Glucose 113 mg/dL (74-106)
--- NOTE | 2023-07-06 06:49 | NURSING ---
Pt requested daughter, Tere, and granddaughter, Miracle, be added to contacts list. Registration notified and changes made.
[2023-07-06 07:20] VITALS: PULSE 78; RESP 20; O2SAT 94
[2023-07-06] MEDS: Budesonide Respules 0.5 MG/2 ML AMPUL.NEB. INHALATION ×2 (07:20→19:10)
[2023-07-06] MEDS: Miconazole Nitrate 43 GM Bottle 1 APPLIC TOPICAL ×2 (08:12→21:17)
[2023-07-06] MEDS: Fluticasone 0.05% 1 SPRAY NASAL.SRY 2 SPRAY NASAL (08:13)
[2023-07-06] MEDS: Potassium Chloride Oral Tablet 20 MEQ PO (08:21)
[2023-07-06] MEDS: Pioglitazone Hydrochloride 30 MG Tablet PO (08:21)
[2023-07-06] MEDS: Iron Polysaccharide Complex 150 MG CAPSULE PO (08:21)
[2023-07-06 10:00] VITALS: PULSE 91; RESP 16
--- NOTE | 2023-07-06 10:48 | NURSING ---
Spoke with Dr. Caldera, she says its fine to juan estes. Asked about follow-up appt, Dr. Caldera said she will have her office reach out to patient for follow-up.
[2023-07-06 11:10] VITALS: BMI 47.9
--- NOTE | 2023-07-06 11:41 | CASEMGMT ---
Social Work BIMS () and PHQ-2 () completed for MDS assessment. Bebe Ellsworth MSW [employer]OL [employer] ENG
[2023-07-06 13:06] VITALS: BP 119/60; PULSE 91; RESP 16; TEMP 36; O2SAT 97
--- NOTE | 2023-07-06 13:18 | CHAPLAIN ---
Type of Pastoral Visit _x__ Initial Visit ___ Follow-up Visit ___ On-call Visit ___ General Patient Visit ___ Spiritual Assessment ___ Family Conference ___ Bereavement ___ Rapid Response ___ Code Blue ___ Other (describe below) Pastoral Care Referral From _x__ Patient ___ Family ___ Nurse ___ Physician ___ Oral Surgery Physician ___ Loop Tacker ___ Other (describe below) Sacrament/Intervention _x__ Active listening ___ Anointing ___ Gnosticism ___ Bereavement ___ Communion _x__ Melissa exploration ___ ___ Life review _x__ Prayer ___ Reconciliation ___ Sacrament of Sick ___ Supportive presence ___ Wedding ___ Other (describe below) Pastoral Comments patient is welcoming and reviews her difficult illnesses and near ; pt credits her melissa in God for getting well and I felt the presence of God in the room; pt would like communion to be served by Eucharistic Ministers; pt wants prayers to be given on her life and health; pt thankful for support
--- NOTE | 2023-07-06 15:47 | CASEMGMT ---
Social Work Per [facility] assessment, [facility]. Will await outcomes. STALIN LewisW
[2023-07-06 19:10] VITALS: PULSE 88; RESP 16
[2023-07-06] MEDS: Atorvastatin Calcium 10 MG Tablet PO (21:15)
[2023-07-06] MEDS: Pramipexole Di-HCl 1 MG Tablet PO (21:15)
[2023-07-06] MEDS: Citalopram 20 MG Tablet PO (21:15)
[2023-07-06] MEDS: guaiFENesin Dm 10 ML UDC PO (21:22)
[2023-07-07] MEDS: Acetaminophen 500 MG Tablet 1000 MG PO ×3 (05:41→22:09)
[2023-07-07] MEDS: Levothyroxine 25 MCG TABLET PO (05:41)
[2023-07-07 05:44] LABS: Hematocrit 29.9 % (37-47); Hemoglobin 9.1 g/dL (12.0-15.0)
[2023-07-07] MEDS: Arthritis Pain Compound 60 CLICK TUBE TOPICAL ×3 (05:44→22:19)
[2023-07-07 06:20] VITALS: O2SAT 95
[2023-07-07 06:24] LABS: Bedside Glucose 127 mg/dL (74-106)
[2023-07-07 07:05] VITALS: PULSE 90; RESP 18; O2SAT 94
[2023-07-07] MEDS: Budesonide Respules 0.5 MG/2 ML AMPUL.NEB. INHALATION ×2 (07:05→19:37)
[2023-07-07] MEDS: Potassium Chloride Oral Tablet 20 MEQ PO (08:01)
[2023-07-07] MEDS: Iron Polysaccharide Complex 150 MG CAPSULE PO (08:02)
[2023-07-07] MEDS: Pioglitazone Hydrochloride 30 MG Tablet PO (08:02)
[2023-07-07] MEDS: Fluticasone 0.05% 1 SPRAY NASAL.SRY 2 SPRAY NASAL (08:03)
--- NOTE | 2023-07-07 10:02 | CASEMGMT ---
Social Work Direction Home screened the patient and assessment will be scheduled in 7-10 days. STALIN LewisW
[2023-07-07] MEDS: Miconazole Nitrate 43 GM Bottle 1 APPLIC TOPICAL ×2 (11:07→22:12)
[2023-07-07 13:29] VITALS: BP 131/66; PULSE 98; RESP 18; TEMP 36.7; O2SAT 96
--- NOTE | 2023-07-07 14:29 | CASEMGMT ---
Social Work SW updated pt that she does not qualify for Medicaid or QMB. Pt expressed understanding. Bebe Ellsworth, PENCILL[employer] DA[employer] TECHNOLOGIST
--- NOTE | 2023-07-07 18:47 | CON.PCM_ITS ---
Assessment & Plan Assessment/Plan (1) Debility: (2) Generalized weakness: (3) Diabetes: (4) Chronic toe pain, left foot: (5) Chronic toe pain, right foot: (6) Ingrowing nail: (7) Tinea unguium: PLAN: Plan Patient seen and evaluated On examination she demonstrates thickened, elongated, discolored, incurvated nails 1 through 5 bilateral with pain to palpation of bilateral medial hallux nail borders secondary to ingrown toenail. I reviewed her case and condition of onychomycosis. I reviewed treatment options in detail with her. She states that she gets relief from routine nail debridements and would prefer to continue with conservative care of debridement of her nails today. I performed debridement of the nail 1, 2, 3, 4, and 5 of the left and right foot utilizing a nail nipper debriding in length and thickness to patient tolerance. This was performed without incident. Discussed treatment of ingrown toenail consisting of slant back versus temporary nail avulsion versus matrixectomy. Patient elects for slant back nail avulsion. Following verbal permission a slant back nail avulsion of the medial border of the right hallux and left hallux were performed without use of local anesthesia to patient tolerance. Following removal of the offending nail border immediate pain relief was noted. This was performed without incident. Discussed proper diabetic diet and continue daily foot checks. Reminded her to not go barefoot, this includes socks. Stressed importance of glycemic control. Discussed that if she notices any redness, suspicious lesions, possible wounds to call the office sooner for appointment. She voices understanding of this. She will continue to follow in office with Dr. Lora for diabetic management and routine debridement of nails in 2 to 3 months. Podiatry to sign off Jr. Sydni DempseyP.M. [facility] [phone] HPI Consult Data Date of Consult: 07/07/23 HPI Narrative Reason for Consultation: Thickened, elongated toenails 1-5 bilateral. Ingrown toenail b/l hallux HPI Narrative: EDUAR GOMEZ, is a 73 F who presents to [facility] transitional care unit for strength and rehabilitation prior to discharge home secondary to fever, cough, and urinary frequency. She was admitted to [facility] 06/25/2023 for treatment of complicated UTI and left lower lobe pneumonia. Following treatment she was admitted to TCU with debility, rehabilitation and strengthening prior to her discharge home. She has PMHx of diabetes mellitus type 2, HTN, hypothyroidism, kidney stones, asthma, anxiety and depression, plantar fasciitis. She states that she missed her previous appointment with Dr. Lora in office due to illness and hospitalizations. She states that her nails have become long and painful contacting the end of the shoe gear. She states they are also painful when ambulating in shoes and without shoes secondary to the nature of the curvature and thickness. She also states her ingrown toenail is causing pain at the medial borders of bilateral hallux. She was consulted to podiatry for thickened, elongated, incurvated toenails 1 through 5 bilateral in addition to bilateral hallux ingrown toenail. [facility] Medical History (Updated 07/07/23 @ 19:[address] Roberto Geiger, DPAbdias) Anemia Anxiety Asthma COVID-19 Depression Diabetes Fibromyalgia Foot arch pain Hypertension Hypothyroidism Kidney stones Osteoarthritis Thrombocytopenia Home Medications fluticasone propionate 50 mcg/actuation nasal spray,suspension 2 spray NASAL DAILY allergies 12/07/16 [History Last Taken 06/30/23] citalopram 20 mg tablet 20 mg PO DAILY DEPRESSION 04/26/21 [History Last Taken 06/30/23] levothyroxine 25 mcg tablet 25 mcg PO DAILY thyroid 04/29/21 [History Last Taken 06/30/23] lovastatin 40 mg tablet 40 mg PO QHS cholesterol 04/29/21 [History Last Taken 06/30/23] potassium chloride 10 mEq capsule,extended release 20 meq PO DAILY supplement 04/29/21 [History Last Taken 06/22/23] pioglitazone 30 mg tablet 30 mg PO DAILY DM 06/25/23 [History Last Taken 06/22/23] ropinirole 2 mg tablet 2 mg PO QHS RLS 06/25/23 [History Last Taken 06/29/23] Arthritis Pain Compound 1 click topical Q8H PRN pain 06/30/23 [History Last Taken 06/29/23] acetaminophen 325 mg tablet 650 mg (2 x 325 mg) PO Q6H PRN PRN Pain 1-10 Or Fev er>100.7 #0 tabs 06/30/23 [Rx Last Taken 06/30/23] budesonide 0.5 mg/2 mL suspension for nebulization 0.5 mg (2 mL) inhalation Q12H.RT breathing #0 mL 06/30/23 [Rx Last Taken 06/30/23] cefdinir 300 mg capsule 300 mg PO Q12 infection #7 caps 06/30/23 [Rx Last Taken 06/30/23] dextromethorphan-guaifenesin 10 mg-100 mg/5 mL oral syrup 10 ml PO Q6H PRN PRN COUGH #0 mL 06/30/23 [Rx Last Taken 06/28/23] hydrocodone-acetaminophen 5-325mg 5mg-325mg 1 - 2 tab PO Q6H PRN PRN Pain Score 4-10 3 days #10 tabs 06/30/23 [Rx Last Taken 06/29/23] nystatin 100,000 unit/gram topical powder (Nyamyc) 1 applic topical BID moisture/ #0 grams 06/30/23 [Rx Last Taken 06/29/23] vancomycin 25 mg/mL oral solution (Firvanq) 125 mg (5 mL) PO Q4 antibiotic #0 mL 06/30/23 [Rx Last Taken 06/30/23] Allergy/AdvReac Type Severity Reaction Status Date / Time cephalexin monohydrate Allergy Swelling Verified 06/25/23 13:46 [From Keflex] ibuprofen Allergy Swelling Verified 06/25/23 13:46 oxaprozin [From Daypro] Allergy Swelling Verified 06/25/23 13:46 tramadol HCl [From Ultram] Allergy Swelling Verified 06/25/23 13:46 celecoxib [From Celebrex] AdvReac DIZZY AND Verified 06/25/23 13:46 HURTS AROUND MY LIVER Family History Other Diabetes Hypertension Surgical History (Updated 06/30/23 @ 21:[address] Corby Heller MD) History of ureter stent Social History (Updated 06/30/23 @ 21:[address] Corby Heller MD) household members: children housing: house Smoking Status: Never smoker alcohol intake: never substance use type: does not use ROS Constitutional Constitutional: Denies anorexia, chills, fatigue or fever(s) Eyes Eyes: Denies blurry vision, double vision or erythema ENT HEENT: Denies nasal congestion, sore throat or tinnitus Cardiovascular Cardiovascular: Denies chest pain, claudication or cold extremities Respiratory/Chest Respiratory/Chest: Denies dyspnea, productive cough or wheezing Gastrointestinal Gastrointestinal: Denies abdominal pain, constipation, diarrhea, nausea or vomiting Genitourinary Genitourinary: Denies dysuria, hematuria or urinary hesitancy Musculoskeletal Musculoskeletal: Denies joint pain, joint stiffness or joint swelling Integumentary Integumentary: Denies lesions, pruritus or rash Neurologic Neurologic: Denies dizziness, numbness or seizures Endocrine Endocrinology: Denies cold intolerance or heat intolerance Hematologic/Lymphatic Hematologic/Lymphatic: Denies lymphadenopathy Allergic/Immunologic Allergic/Immunologic: Denies wheezing Physical Exam Const alert, oriented x3, no apparent distress and well nourished General Appearance: cooperative HEENT normocephalic Eyes General Eye: normal appearance of both eyes Neck General: normal visual inspection Lymph Lymphatic: no lymphadenopathy noted and no lymphedema noted Resp normal respiratory effort Cardio regular rate and regular rhythm Extremity normal capillary refill, no calf tenderness and no pedal edema Extremity Narrative: DP and PT pulses palpable bilateral. Capillary fill time less than 5 seconds to digits bilateral. There is mild nonpitting edema about the foot and ankle bilateral. Dermatological: Skin mildly xerotic. Normal skin turgor. Webspaces 1 through 4 C/D/I bilateral. Nails 1, 2, 3, 4, and 5 of the left and right foot are elongated, thickened, discolored yellow, with incurvation. Bilateral hallux medial nail border demonstrates incurvation with slight pain to palpation. Musculoskeletal: Muscle strength 5 of 5 age-appropriate. Decreased range of motion of the ankle joint dorsiflexion with knee extended without pain or crepitus. Decreased range of motion of the subtalar joint, midtarsal joint, and first metatarsophalangeal joint without pain or crepitus. Skin no rashes or lesions noted, skin turgor normal and no jaundice Neuro moves all extremities Lab / Micro Data 07/07/23 05:20 07/01/23 05:55 Labs: Laboratory Results - last 24 hr 07/07/23 05:20: Hgb 9.1 L, Hct 29.9 L 07/07/23 05:59: POC Glucose 127 H
[2023-07-07 19:37] VITALS: PULSE 76; RESP 18
--- NOTE | 2023-07-07 19:38 | NURSING ---
IN TO CUT PT TOENAILS.
[2023-07-07] MEDS: Atorvastatin Calcium 10 MG Tablet PO (22:09)
[2023-07-07] MEDS: Pramipexole Di-HCl 1 MG Tablet PO (22:09)
[2023-07-07] MEDS: Citalopram 20 MG Tablet PO (22:11)
[2023-07-08] MEDS: Acetaminophen 500 MG Tablet 1000 MG PO ×3 (05:37→21:44)
[2023-07-08] MEDS: Levothyroxine 25 MCG TABLET PO (05:37)
[2023-07-08] MEDS: Hydrocortisone 25 MG Suppository RC (05:38)
[2023-07-08] MEDS: Arthritis Pain Compound 60 CLICK TUBE TOPICAL ×3 (05:38→21:50)
[2023-07-08 05:45] VITALS: PULSE 76; RESP 16; O2SAT 94
[2023-07-08 05:51] LABS: Absolute Neutrophil Count 5.2 X10^3/uL (2.0-7.7); Basophil# 0.09 X10^3/uL; Basophil% 1.1 % (0-1); Eosinophil# 0.25 X10^3/uL; Hematocrit 30.9 % (37-47); Hemoglobin 9.4 g/dL (12.0-15.0); Mean Corp Hgb Conc 30.4 g/dL (32-36); Mean Corpuscular Hgb 29.7 pg (27.0-32.0); Mean Corpuscular Volume 97.5 fL (81-99); Mean Platelet Vol. 9.1 fl (6.2-12.0); Monocyte# 0.73 X10^3/uL; Monocyte% 8.8 % (0-10); NRBC Flagged by Analyzer 0 % (0-5); Neutrophil # 5.18 X10^3/uL (2.7-7.7); Neutrophil % 62.6 % (47-70); Platelet Count 417 K/mm3 (150-450); RBC Distribution Width CV 15.9 % (11.6-14.6); RBC Distribution Width SD 56.7 fl (35.1-43.9); Red Blood Count 3.17 M/mm3 (4.2-5.4); White Blood Count 8.3 K/mm3 (4.4-11.0)
[2023-07-08 06:35] LABS: Bedside Glucose 102 mg/dL (74-106)
[2023-07-08 06:37] LABS: Anion Gap 5 (5-15); BUN 30 mg/dL (7-18); Calcium,Total 9.3 mg/dL (8.5-10.1); Chloride 104 mmol/L (98-107); Creatinine, Serum 1.07 mg/dL (0.55-1.02); EST Glomerular Filtration Rate 53 mL/min (>60); Est Glom Filt Rate - Afr Amer 64 mL/min (>60); Estimated Creatinine Clearance 36.48 ml/min; Glucose 123 mg/dL (74-106); Potassium 4.7 mmol/L (3.5-5.1); Sodium Level 136 mmol/L (136-145)
[2023-07-08 07:11] VITALS: PULSE 71; RESP 16; O2SAT 92
[2023-07-08] MEDS: Budesonide Respules 0.5 MG/2 ML AMPUL.NEB. INHALATION ×2 (07:11→19:43)
[2023-07-08] MEDS: Pioglitazone Hydrochloride 30 MG Tablet PO (07:51)
[2023-07-08] MEDS: Potassium Chloride Oral Tablet 20 MEQ PO (07:51)
[2023-07-08] MEDS: Iron Polysaccharide Complex 150 MG CAPSULE PO (07:51)
[2023-07-08] MEDS: Fluticasone 0.05% 1 SPRAY NASAL.SRY 2 SPRAY NASAL (07:52)
[2023-07-08] MEDS: Miconazole Nitrate 43 GM Bottle 1 APPLIC TOPICAL ×2 (10:21→21:46)
[2023-07-08] MEDS: Tuberculin,Purif.prot.deriv. 50 TU/ML Vial 0.1 ML ID (10:22)
[2023-07-08 13:14] VITALS: BP 133/51; PULSE 80; RESP 16; TEMP 36.3; O2SAT 96
--- NOTE | 2023-07-08 13:37 | CASEMGMT ---
Social Work IDT met with patient and sister and grdtr via conference call for care plan meeting. Discussed patient's progress in PT/OT/SN. Educated to Medicare benefit. Pt has made improvements from two person to one person assist, but still needing some assistance with ADLs and transfers. IDT recommending continued stay for ongoing improvement with strength and family is in agreement. Pt is anxious to get home, but is cooperative and agreeable to remain for further therapy knowing insurance will provide coverage. SW educated to coordinating [facility] PT/OT/SN/CORDON/SW at ID. Updated family that this worker provided pt with transportation resources for family to utilize as well. SW will continue to follow for DC planning. STALIN LewisW
[2023-07-08 19:42] VITALS: PULSE 75; RESP 16; O2SAT 93
[2023-07-08] MEDS: Atorvastatin Calcium 10 MG Tablet PO (21:44)
[2023-07-08] MEDS: Citalopram 20 MG Tablet PO (21:44)
[2023-07-08] MEDS: Pramipexole Di-HCl 1 MG Tablet PO (21:44)
[2023-07-08] MEDS: Menthol/Lanolin/Calamine/Znox 113 GM Tube 1 APPLIC TOPICAL (21:50)
[2023-07-09] MEDS: Levothyroxine 25 MCG TABLET PO (05:26)
[2023-07-09] MEDS: Acetaminophen 500 MG Tablet 1000 MG PO ×3 (05:26→21:51)
[2023-07-09] MEDS: Arthritis Pain Compound 60 CLICK TUBE TOPICAL ×3 (05:26→21:52)
[2023-07-09 06:48] LABS: Bedside Glucose 112 mg/dL (74-106)
[2023-07-09 06:55] VITALS: PULSE 75; RESP 18
[2023-07-09] MEDS: Budesonide Respules 0.5 MG/2 ML AMPUL.NEB. INHALATION ×2 (06:55→19:38)
[2023-07-09 09:44] VITALS: BP 152/66; PULSE 83; RESP 18; TEMP 36.9; O2SAT 96
[2023-07-09] MEDS: Iron Polysaccharide Complex 150 MG CAPSULE PO (09:47)
[2023-07-09] MEDS: Potassium Chloride Oral Tablet 20 MEQ PO (09:48)
[2023-07-09] MEDS: Pioglitazone Hydrochloride 30 MG Tablet PO (09:48)
[2023-07-09] MEDS: Menthol/Lanolin/Calamine/Znox 113 GM Tube 1 APPLIC TOPICAL ×2 (09:49→21:53)
[2023-07-09] MEDS: Miconazole Nitrate 43 GM Bottle 1 APPLIC TOPICAL ×2 (09:49→21:53)
[2023-07-09] MEDS: Fluticasone 0.05% 1 SPRAY NASAL.SRY 2 SPRAY NASAL (09:50)
[2023-07-09 12:54] LABS: Mucous, Urine 0 SEEN /hpf (<or=2+); Squamous Epithelial Cells - UA 0 SEEN /hpf (5-10)
[2023-07-09 12:57] LABS: Color, Urine Yellow (Yellow); Glucose, Dipstick Normal (Normal); Ketone-Dipstick Negative (Negative); Leukocyte Esterase-Dipstick 500 /ul (Negative); Nitrite-Dipstick Positive (Negative); Occult Blood-Urine 25 /ul (Negative); Protein-Dipstick 30 mg/dl (Negative); Urine Bilirubin Dipstick Negative (Negative); Urine Clarity Sl. Cloudy (Clear); Urine Urobilinogen Normal (Normal); Urine pH 6.5 (5.0 - 8.0)
[2023-07-09 13:05] LABS: Bacteria 1+ /hpf (None Seen); Red Blood Cells-Urine 0-5 SEEN /hpf (0-5); White Blood Cells 25-50 SEEN /hpf (0-5)
--- NOTE | 2023-07-09 13:34 | NURSING ---
Urine cloudy, c/o burning, dr leahy updated, new order UA c\s. UA +, cipro ordered.
[2023-07-09] MEDS: Ciprofloxacin 500 MG Tablet PO ×2 (16:01→21:52)
[2023-07-09 19:38] VITALS: PULSE 79; RESP 20
[2023-07-09] MEDS: Citalopram 20 MG Tablet PO (21:52)
[2023-07-09] MEDS: Pramipexole Di-HCl 1 MG Tablet PO (21:52)
[2023-07-09] MEDS: Atorvastatin Calcium 10 MG Tablet PO (21:52)
[2023-07-10] MEDS: Acetaminophen 500 MG Tablet 1000 MG PO ×3 (05:18→21:43)
[2023-07-10] MEDS: Levothyroxine 25 MCG TABLET PO (05:18)
[2023-07-10] MEDS: Arthritis Pain Compound 60 CLICK TUBE TOPICAL ×3 (05:19→21:39)
[2023-07-10 06:41] LABS: Bedside Glucose 115 mg/dL (74-106)
[2023-07-10 07:28] LABS: Hematocrit 30.6 % (37-47); Hemoglobin 9.2 g/dL (12.0-15.0)
[2023-07-10] MEDS: Ciprofloxacin 500 MG Tablet PO ×2 (09:10→21:37)
[2023-07-10] MEDS: Potassium Chloride Oral Tablet 20 MEQ PO (09:10)
[2023-07-10] MEDS: Iron Polysaccharide Complex 150 MG CAPSULE PO (09:11)
[2023-07-10] MEDS: Pioglitazone Hydrochloride 30 MG Tablet PO (09:12)
[2023-07-10 09:15] VITALS: O2SAT 94
[2023-07-10] MEDS: Fluticasone 0.05% 1 SPRAY NASAL.SRY 2 SPRAY NASAL (09:21)
[2023-07-10] MEDS: Miconazole Nitrate 43 GM Bottle 1 APPLIC TOPICAL ×2 (09:22→21:41)
[2023-07-10] MEDS: Menthol/Lanolin/Calamine/Znox 113 GM Tube 1 APPLIC TOPICAL ×2 (09:22→21:40)
[2023-07-10] MEDS: Budesonide Respules 0.5 MG/2 ML AMPUL.NEB. INHALATION ×2 (11:58→19:50)
[2023-07-10 12:50] VITALS: PULSE 81; RESP 20; O2SAT 94
[2023-07-10 14:38] VITALS: BP 120/70; PULSE 89; RESP 14; TEMP 36.6; O2SAT 95
[2023-07-10 19:55] VITALS: PULSE 90; RESP 18; O2SAT 96
[2023-07-10] MEDS: Pramipexole Di-HCl 1 MG Tablet PO (21:36)
[2023-07-10] MEDS: Citalopram 20 MG Tablet PO (21:37)
[2023-07-10] MEDS: Atorvastatin Calcium 10 MG Tablet PO (21:37)
[2023-07-11] MEDS: Acetaminophen 500 MG Tablet 1000 MG PO ×3 (05:55→22:05)
[2023-07-11] MEDS: Arthritis Pain Compound 60 CLICK TUBE TOPICAL ×3 (05:56→22:04)
[2023-07-11] MEDS: Levothyroxine 25 MCG TABLET PO (05:57)
[2023-07-11 06:34] LABS: Bedside Glucose 122 mg/dL (74-106)
[2023-07-11 07:15] VITALS: PULSE 73; RESP 16
[2023-07-11] MEDS: Budesonide Respules 0.5 MG/2 ML AMPUL.NEB. INHALATION (07:15)
[2023-07-11] MEDS: Potassium Chloride Oral Tablet 20 MEQ PO (09:14)
[2023-07-11] MEDS: Fluticasone 0.05% 1 SPRAY NASAL.SRY 2 SPRAY NASAL (09:15)
[2023-07-11] MEDS: Pioglitazone Hydrochloride 30 MG Tablet PO (09:15)
[2023-07-11] MEDS: Ciprofloxacin 500 MG Tablet PO (09:15)
[2023-07-11] MEDS: Iron Polysaccharide Complex 150 MG CAPSULE PO (09:16)
[2023-07-11] MEDS: Miconazole Nitrate 43 GM Bottle 1 APPLIC TOPICAL ×2 (09:16→22:04)
[2023-07-11] MEDS: Menthol/Lanolin/Calamine/Znox 113 GM Tube 1 APPLIC TOPICAL ×2 (09:17→22:04)
[2023-07-11] MEDS: Nitrofurantoin Macrocrystals 100 MG Capsule PO ×2 (11:19→22:03)
[2023-07-11 14:52] VITALS: BP 136/80; PULSE 76; RESP 16; TEMP 36.4; O2SAT 98
[2023-07-11] MEDS: Atorvastatin Calcium 10 MG Tablet PO (22:03)
[2023-07-11] MEDS: Citalopram 20 MG Tablet PO (22:04)
[2023-07-11] MEDS: Pramipexole Di-HCl 1 MG Tablet PO (22:04)
[2023-07-11 22:15] VITALS: O2SAT 97
[2023-07-12 05:51] LABS: Hematocrit 30.4 % (37-47)
[2023-07-12 06:31] LABS: Bedside Glucose 117 mg/dL (74-106)
[2023-07-12] MEDS: Acetaminophen 500 MG Tablet 1000 MG PO ×3 (06:55→21:10)
[2023-07-12] MEDS: Arthritis Pain Compound 60 CLICK TUBE TOPICAL ×3 (06:56→21:11)
[2023-07-12] MEDS: Levothyroxine 25 MCG TABLET PO (06:56)
[2023-07-12] MEDS: Nitrofurantoin Macrocrystals 100 MG Capsule PO ×2 (08:30→21:10)
[2023-07-12] MEDS: Pioglitazone Hydrochloride 30 MG Tablet PO (08:30)
[2023-07-12] MEDS: Potassium Chloride Oral Tablet 20 MEQ PO (08:30)
[2023-07-12] MEDS: Iron Polysaccharide Complex 150 MG CAPSULE PO (08:30)
[2023-07-12] MEDS: Fluticasone 0.05% 1 SPRAY NASAL.SRY 2 SPRAY NASAL (08:31)
[2023-07-12] MEDS: Miconazole Nitrate 43 GM Bottle 1 APPLIC TOPICAL ×2 (08:31→21:11)
[2023-07-12] MEDS: Menthol/Lanolin/Calamine/Znox 113 GM Tube 1 APPLIC TOPICAL ×2 (08:33→21:12)
--- NOTE | 2023-07-12 11:48 | MDS.RN ---
Information for the mds was obtained from review of the clinical record, interview of resident, staff, and direct observation of resident's care.
--- NOTE | 2023-07-12 12:52 | NURSING ---
[employer] Sports Coach Note; Activity Asset: Afsaneh Johnson is independent in her choice of daily activities. She enjoys visit from the Father, family and friends along w/reading, watching tv. She welcomes visit from the side door worker and therapy dog when available. Staff will continue to remind her of daily activities and respect her right to say no.
[2023-07-12 15:15] VITALS: BP 111/60; PULSE 78; RESP 16; TEMP 36.3; O2SAT 97
[2023-07-12 18:55] VITALS: PULSE 82; RESP 16
[2023-07-12] MEDS: Budesonide Respules 0.5 MG/2 ML AMPUL.NEB. INHALATION (18:55)
[2023-07-12 21:00] VITALS: PULSE 81; RESP 18; O2SAT 95
[2023-07-12] MEDS: Pramipexole Di-HCl 1 MG Tablet PO (21:11)
[2023-07-12] MEDS: Citalopram 20 MG Tablet PO (21:12)
[2023-07-12] MEDS: Atorvastatin Calcium 10 MG Tablet PO (21:12)
[2023-07-13] MEDS: Arthritis Pain Compound 60 CLICK TUBE TOPICAL ×3 (06:00→21:46)
[2023-07-13] MEDS: Levothyroxine 25 MCG TABLET PO (06:00)
[2023-07-13] MEDS: Acetaminophen 500 MG Tablet 1000 MG PO ×3 (06:00→21:47)
[2023-07-13 06:17] LABS: Bedside Glucose 115 mg/dL (74-106)
[2023-07-13 07:08] VITALS: PULSE 84; RESP 16; O2SAT 96
[2023-07-13 07:15] VITALS: PULSE 86; RESP 16
[2023-07-13] MEDS: Budesonide Respules 0.5 MG/2 ML AMPUL.NEB. INHALATION ×2 (07:15→19:08)
[2023-07-13] MEDS: Miconazole Nitrate 43 GM Bottle 1 APPLIC TOPICAL ×2 (08:45→21:54)
[2023-07-13] MEDS: Menthol/Lanolin/Calamine/Znox 113 GM Tube 1 APPLIC TOPICAL ×2 (08:46→21:54)
[2023-07-13] MEDS: Pioglitazone Hydrochloride 30 MG Tablet PO (08:47)
[2023-07-13] MEDS: Potassium Chloride Oral Tablet 20 MEQ PO (08:47)
[2023-07-13] MEDS: Fluticasone 0.05% 1 SPRAY NASAL.SRY 2 SPRAY NASAL (08:48)
[2023-07-13] MEDS: Nitrofurantoin Macrocrystals 100 MG Capsule PO ×2 (08:48→21:47)
[2023-07-13] MEDS: Iron Polysaccharide Complex 150 MG CAPSULE PO (08:48)
[2023-07-13 12:53] VITALS: BP 136/50; PULSE 54; RESP 16; TEMP 36.2; O2SAT 98
[2023-07-13 12:57] VITALS: BMI 47.4
--- NOTE | 2023-07-13 15:11 | CASEMGMT ---
Addendum entered by Bebe Ellsworth 07/13/23 15:50: Pt updated this worker, her friend can transport at 11 am on 07/15. ID agreeable to DC date. SW sent referral to [facility] PT/OT/[place]/SW via [facility]. Plan: DC home 07/15, [facility] PT/OT/CORD[place]/SW Original Note: Social Work IDT conversed and agreeable for pt to set DC date. SW spoke with pt. 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 Offered to schedule transportation through [employer]. Pt is not eligible for [employer]. Pt stated she cannot pay more than $20 for transport. SW informed [employer] will cost more than that. Pt will speak with friends to see when she can get help and then will set a DC date from there. SW offered skilled HHC. Pt agreeable. Offered list with quality and resource data, but pt denied. Pt has no DME needs. Once DC date is set, HHC referral will be made. TIFFANY will continue to follow. Bebe Ellsworth, STALIN ENVELOPE PATTERNMAKER
--- NOTE | 2023-07-13 16:20 | NURSING ---
Updated that covid positive patient. Left VM w/ dtr to update her.
[2023-07-13 21:30] VITALS: PULSE 86; RESP 16; O2SAT 98
[2023-07-13] MEDS: Citalopram 20 MG Tablet PO (21:47)
[2023-07-13] MEDS: Atorvastatin Calcium 10 MG Tablet PO (21:47)
[2023-07-13] MEDS: Pramipexole Di-HCl 1 MG Tablet PO (21:47)
[2023-07-14] MEDS: Levothyroxine 25 MCG TABLET PO (05:38)
[2023-07-14] MEDS: Acetaminophen 500 MG Tablet 1000 MG PO ×3 (05:39→20:58)
[2023-07-14] MEDS: Arthritis Pain Compound 60 CLICK TUBE TOPICAL ×3 (05:39→20:58)
[2023-07-14 05:40] VITALS: PULSE 95; RESP 14; O2SAT 95
[2023-07-14 06:30] LABS: Bedside Glucose 110 mg/dL (74-106)
[2023-07-14 07:30] VITALS: PULSE 74; RESP 16; O2SAT 94
[2023-07-14] MEDS: Budesonide Respules 0.5 MG/2 ML AMPUL.NEB. INHALATION ×2 (07:30→19:45)
[2023-07-14] MEDS: Potassium Chloride Oral Tablet 20 MEQ PO (09:19)
[2023-07-14] MEDS: Nitrofurantoin Macrocrystals 100 MG Capsule PO ×2 (09:20→20:58)
[2023-07-14] MEDS: Fluticasone 0.05% 1 SPRAY NASAL.SRY 2 SPRAY NASAL (09:20)
[2023-07-14] MEDS: Pioglitazone Hydrochloride 30 MG Tablet PO (09:20)
[2023-07-14] MEDS: Iron Polysaccharide Complex 150 MG CAPSULE PO (09:20)
[2023-07-14] MEDS: Miconazole Nitrate 43 GM Bottle 1 APPLIC TOPICAL ×2 (09:21→20:59)
[2023-07-14 15:03] VITALS: BP 118/67; PULSE 90; RESP 16; TEMP 36.1; O2SAT 97
[2023-07-14] MEDS: Menthol/Lanolin/Calamine/Znox 113 GM Tube 1 APPLIC TOPICAL ×2 (15:05→21:00)
[2023-07-14] MEDS: COVID VAC 23-24(12UP)(ANDU)/PF 50 MCG/0.5 ML SYRINGE IM (15:08)
--- NOTE | 2023-07-14 19:27 | DS.PCM_ITS ---
Providers Date of Admission: 06/30/23 Primary Care Physician: Dr. Corby Heller MD Consultations 07/04/23 15:54 Consult: Podiatry Routine Consulting Provider: Luis Bhardwaj Reason for Consult: diabetic, toenail trimming EMERGENT Consult: No MD Notified: Yes Date Notified: 07/04/23 Time Notified: 15:54 Method of Notification: Verbal Reason For Visit: COMPLICATED UTI Diagnosis Discharge Diagnosis (1) Debility: Status: Acute Code(s): R53.81 - Other malaise (2) Generalized weakness: Status: Acute Code(s): R53.1 - Weakness (3) Diabetes: Status: Acute Code(s): E11.9 - Type 2 diabetes mellitus without complications (4) Chronic toe pain, left foot: Status: Acute Code(s): M79.675 - Pain in left toe(s); G89.29 - Other chronic pain (5) Chronic toe pain, right foot: Status: Acute Code(s): M79.674 - Pain in right toe(s); G89.29 - Other chronic pain (6) Ingrowing nail: Status: Acute Code(s): L60.0 - Ingrowing nail (7) Tinea unguium: Status: Acute Code(s): B35.1 - Tinea unguium Plan 73 year old female with below past medical history hospitalized for septic shock secondary to complicated urinary tract infection from bilateral kidney stones requiring bilateral ureteral stents, complicated by left lower lobe pneumonia, covid-19, clostridium difficile diarrhea, acute kidney injury, admitted to TCU with debility, here for rehabilitation, strengthening, prior to discharge home with family. * Debility - PT/OT. * Pain - Tylenol 1000mg q8, Arthritis 2 click tid right knee, Oxycodone 5mg q4h prn pain (1-10). * Bowel - Monitor. * Adult immunization - Administer pneumonia vaccine, covid19 vaccine, flu vaccine as appropriate. * DVT prophylaxis - Lovenox 40mg sc daily. * Hyperlipidemia - Atorvastatin 10mg qhs. * Asthma - Budesonide 0.5mg q12h. * Complicated UTI - Cefdinir 300mg Q12h thru 07/03/2023. * Depression - Citalopram 20mg daily, stable chronic [facility] use, GDR not recommended. * Allergic Rhinitis - Flonase 2 sprays daily. * Cough - Robitussin DM 10mg q6h prn. * Hypothyroidism - Levothyroxine 25mcg daily. * Tinea Corporis - Nystatin powder topical bid. * Diabetes Mellitus II - Pioglitazone 30mg daily. * Hypokalemia - KCL 20meq daily. * Restless leg syndrome - Mirapex 1mg qhs. * C. Diff - Vancomycin 125mg q6 thru 07/05/2023. * Covid-19 - Asymptomatic. Medications at Discharge Home Medications fluticasone propionate 50 mcg/actuation nasal spray,suspension 2 spray NASAL DAILY allergies 12/07/16 citalopram 20 mg tablet 20 mg PO DAILY DEPRESSION 04/26/21 levothyroxine 25 mcg tablet 25 mcg PO DAILY thyroid 04/29/21 lovastatin 40 mg tablet 40 mg PO QHS cholesterol 04/29/21 pioglitazone 30 mg tablet 30 mg PO DAILY DM 06/25/23 ropinirole 2 mg tablet 2 mg PO QHS RLS 06/25/23 budesonide 0.5 mg/2 mL suspension for nebulization 0.5 mg (2 mL) inhalation Q12H.RT breathing #0 mL 06/30/23 acetaminophen 500 mg tablet 1,000 mg (2 x 500 mg) PO Q8 #0 tabs 07/14/23 nitrofurantoin monohydrate/macrocrystals 100 mg capsule 100 mg PO BID 3 days #6 caps 07/14/23 polysaccharide iron complex 150 mg iron capsule (Ferrex) 150 mg PO DAILY 30 days #30 caps 07/14/23 potassium chloride 20 mEq tablet,extended release(part/cryst) (Klor-Con M) 20 meq PO DAILYCM 30 days #30 tabs 07/14/23 Hospital Course Operations - (Cystoscopy, bilateral ureteral stents.) Procedures None Summary of Care Provided Minutes Spent on Discharge: 35 Hospital Course: 73 year old female with below past medical history hospitalized for septic shock secondary to complicated urinary tract infection from bilateral kidney stones requiring bilateral ureteral stents, complicated by left lower lobe pneumonia, covid-19, clostridium difficile diarrhea, acute kidney injury, admitted to TCU with debility, here for rehabilitation, strengthening, prior to discharge home with family. 07/09/2023 E. Coli urinary tract infection, treated with Nitrofurantoin 100mg twice daily x 7 days, will discharge on Nitrofurantoin. Discharge home with family 07/15/2023, [facility] PT/OT/CORD[place]/SW. Physical Exam Const alert General Appearance: cooperative HEENT normocephalic Eyes PERRL and EOMs intact bilaterally Neck supple, no JVD and no carotid bruits Resp normal respiratory effort, normal air movement and clear to auscultation bilaterally Cardio regular rate and regular rhythm GI normal to inspection, nondistended, normoactive bowel sounds, non-tender and non-distended Extremity normal capillary refill General Extremity: Negative for edema Skin no rashes or lesions noted General Skin Exam: no breakdown Psych affect normal Appearance: appropriate Weight / BMI Weight Weight: 117.571 kg Body Mass Index (BMI) 47.4 ABG / Lab / Microbiology Data 07/12/23 05:16 07/08/23 05:11 Laboratory: Laboratory Results - last 24 hr 07/14/23 06:11: POC Glucose 110 H Microbiology: Microbiology 07/09/23 12:45 Urine, Catheterized Urine Culture - Final Escherichia coli D/C Instructions Discharge Diet: No restrictions Discharge Activity: Return to Normal Activity, May Shower and Use Walker Weight Bearing Status: Weight bearing as tolerated Call your doctor if you observe: Fever of 101 or Higher, Inability to urinate, Inability to have a bowel movement, Shortness of breath, Dizziness, Fainting spells, Swelling in the ankles, Chest pain and Uncontrolled pain Additional Instructions: Discharge home with family 07/15/2023, [facility] PT/OT/CORD[place]/SW. Please Follow Up With: Marie Caldera MD When: 1 week. Meaningful Use Info Meaningful Use Diagnoses (Choose all that apply): None applicable Discharge Plan Admission Admit Date/Time: 06/30/23 14:43 Primary Reason for Your Visit: Debility. Attending Provider: Corby Heller Chi Primary Care Provider: Corby Heller Chi Consulting Providers: Luis Bhardwaj Instructions Additional Instructions / Restrictions: Discharge home with family 07/15/2023, [facility] Care PT/OT/CORDON/SW. Discharge Orders/Prescriptions Prescriptions: New polysaccharide iron complex [Ferrex 150] 150 mg iron Capsule 150 mg PO DAILY 30 Days Qty: 30 0RF acetaminophen 500 mg Tablet 1,000 mg PO Q8 Qty: 0 0RF potassium chloride [Klor-Con M20] 20 mEq Tablet,Er Particles/Crystals 20 meq PO DAILYCM 30 Days Qty: 30 0RF nitrofurantoin monohyd/m-cryst 100 mg Capsule 100 mg PO BID 3 Days Qty: 6 0RF Continued fluticasone propionate 1 SPRAY spray,suspension 2 spray NASAL DAILY citalopram 20 mg tablet 20 mg PO DAILY Patient Comments: TAKE 1/2 (ONE-HALF) OF A TABLET DAILY FOR 7 DAYS then TAKE 1 TABLET DAILY lovastatin 40 mg tablet 40 mg PO QHS Patient Comments: TAKE 1 TABLET DAILY AT BEDTIME levothyroxine 25 mcg tablet 25 mcg PO DAILY Patient Comments: TAKE 1 TABLET BY MOUTH ONCE DAILY pioglitazone 30 mg tablet 30 mg PO DAILY ropinirole 2 mg tablet 2 mg PO QHS budesonide 0.5 mg/2 mL Suspension For Nebulization 0.5 mg inhalation Q12H.RT Qty: 0 0RF Discontinued potassium chloride 10 mEq capsule, extended release 20 meq PO DAILY acetaminophen 325 mg Tablet 650 mg PO Q6H PRN PRN (Reason: Pain 1-10 Or Fever>100.7) Qty: 0 0RF cefdinir 300 mg Capsule 300 mg PO Q12 Qty: 7 0RF Rx Instructions: continue for 7 doses starting evening 06/30/23 hydrocodone-acetaminophen 5-325 mg Tablet 1 - 2 tab PO Q6H PRN PRN (Reason: Pain Score 4-10) 3 Days Qty: 10 0RF dextromethorphan-guaifenesin 10-100 mg/5 mL Syrup 10 ml PO Q6H PRN PRN (Reason: COUGH) Qty: 0 0RF nystatin [Nyamyc] 100,000 unit/gram Powder 1 applic topical BID Qty: 0 0RF Protocol: *Topical Application Instructions APPLICATION INSTRUCTIONS: B intertriginous areas vancomycin [Firvanq] 25 mg/mL Recon Soln 125 mg PO Q4 Qty: 0 0RF Rx Instructions: continue for 5 days starting 06/30/23 Arthritis Pain Compound 1 click topical Q8H PRN (Reason: pain) Referrals / Follow Up: Marie Caldera MD [Med Staff - Active Staff] - 07/20/23 3:40 pm Corby Heller Chi, MD [Primary Care Provider] - 07/15/23 11:20 am Disposition Disposition (needs filled in before D/C Order can be placed): Home Health Service
[2023-07-14 19:45] VITALS: PULSE 94; RESP 16; O2SAT 97
[2023-07-14] MEDS: Pramipexole Di-HCl 1 MG Tablet PO (20:59)
[2023-07-14] MEDS: Atorvastatin Calcium 10 MG Tablet PO (20:59)
[2023-07-14] MEDS: Citalopram 20 MG Tablet PO (20:59)
[2023-07-15] MEDS: Levothyroxine 25 MCG TABLET PO (05:22)
[2023-07-15] MEDS: Arthritis Pain Compound 60 CLICK TUBE TOPICAL ×2 (05:23→09:57)
[2023-07-15] MEDS: Acetaminophen 500 MG Tablet 1000 MG PO (05:23)
[2023-07-15 05:55] LABS: Absolute Neutrophil Count 3.3 X10^3/uL (2.0-7.7); Basophil# 0.08 X10^3/uL; Basophil% 1.3 % (0-1); Eosinophil# 0.31 X10^3/uL; Hematocrit 30.5 % (37-47); Hemoglobin 9.3 g/dL (12.0-15.0); Lymphocyte % 28.8 % (19-41); Mean Corp Hgb Conc 30.5 g/dL (32-36); Mean Corpuscular Volume 98.4 fL (81-99); Mean Platelet Vol. 10.1 fl (6.2-12.0); Monocyte# 0.68 X10^3/uL; Monocyte% 10.9 % (0-10); NRBC Flagged by Analyzer 0 % (0-5); Neutrophil # 3.34 X10^3/uL (2.7-7.7); Neutrophil % 53.5 % (47-70); Platelet Count 163 K/mm3 (150-450); RBC Distribution Width CV 16.2 % (11.6-14.6); RBC Distribution Width SD 58.1 fl (35.1-43.9); White Blood Count 6.2 K/mm3 (4.4-11.0)
[2023-07-15 06:17] VITALS: PULSE 81; RESP 18; O2SAT 96
[2023-07-15 06:17] LABS: Anion Gap 5 (5-15); BUN 42 mg/dL (7-18); BUN/Creat Ratio 36.5 RATIO (10-20); Calcium,Total 9.5 mg/dL (8.5-10.1); Chloride 105 mmol/L (98-107); Creatinine, Serum 1.15 mg/dL (0.55-1.02); EST Glomerular Filtration Rate 49 mL/min (>60); Est Glom Filt Rate - Afr Amer 59 mL/min (>60); Estimated Creatinine Clearance 33.94 ml/min; Glucose 132 mg/dL (74-106); Sodium Level 138 mmol/L (136-145)
[2023-07-15 06:42] LABS: Bedside Glucose 136 mg/dL (74-106)
[2023-07-15] MEDS: Potassium Chloride Oral Tablet 20 MEQ PO (09:56)
[2023-07-15] MEDS: Iron Polysaccharide Complex 150 MG CAPSULE PO (09:56)
[2023-07-15] MEDS: Pioglitazone Hydrochloride 30 MG Tablet PO (09:56)
[2023-07-15] MEDS: Nitrofurantoin Macrocrystals 100 MG Capsule PO (09:57)
[2023-07-15] MEDS: Fluticasone 0.05% 1 SPRAY NASAL.SRY 2 SPRAY NASAL (09:57)
[2023-07-15] MEDS: Miconazole Nitrate 43 GM Bottle 1 APPLIC TOPICAL (09:58)
[2023-07-15] MEDS: Menthol/Lanolin/Calamine/Znox 113 GM Tube 1 APPLIC TOPICAL (09:58)
[2023-07-15 10:04] VITALS: BP 117/78; PULSE 93; RESP 18; TEMP 36.5
--- NOTE | 2023-07-15 10:52 | NURSING ---
Pt leaves unit @1100. Wallet and credit cards given to pt to take home.
[2023-07-15 11:03] VITALS: BP 117/78; PULSE 83; RESP 18; TEMP 36.6; O2SAT 93
--- NOTE | 2023-07-16 08:43 | CASEMGMT ---
Social Work Received report via email from [facility] Home referral. Currently, pt does not qualify for services through [employer]. However, pt was placed on waitlist for Care Coordination Program. SW scanned report form in pt's chart. STALIN Cervantes
== END 2023-07-15 11:00 | disposition home health service (06) | DRG 689 ==
PROVIDERS: Admitting Provider Family Medicine Geriatric Medicine; PCP Family Medicine Geriatric Medicine; Referring Provider Family Medicine Geriatric Medicine; Visit Provider Family Medicine Geriatric Medicine
DX: N39.0 Urinary tract infection, site not specified (principal); J18.9 Pneumonia, unspecified organism; U07.1 COVID-19; A04.72 Enterocolitis due to Clostridium difficile, not specified as recurrent; E11.9 Type 2 diabetes mellitus without complications; B35.1 Tinea unguium; B35.4 Tinea corporis; B96.20 Unspecified Escherichia coli [E. coli] as the cause of diseases classified elsewhere; G25.81 Restless legs syndrome; I10 Essential (primary) hypertension; J45.909 Unspecified asthma, uncomplicated; F32.A Depression, unspecified; E03.9 Hypothyroidism, unspecified; E87.6 Hypokalemia; M79.7 Fibromyalgia; M17.11 Unilateral primary osteoarthritis, right knee; L60.0 Ingrowing nail; Z86.16 Personal history of COVID-19; Z79.84 Long term (current) use of oral hypoglycemic drugs; Z79.51 Long term (current) use of inhaled steroids; Z79.899 Other long term (current) drug therapy; Z23 Encounter for immunization; N20.0 Calculus of kidney
CPT/HCPCS: 36415; 80048; 81001; 82962; 85014; 85018; 85025; 87077; 87086; 87088; 87186; 90480; 94640; 97110; 97116; 97162; 97166; 97530; 97535; 97802; 91322

== ENCOUNTER → 2023-07-21 | Outpatient (CLI) | payer MEDICARE, OTHER, SELFPAY ==
[2023-07-21 16:28] LABS: Absolute Lymphocyte Count 1.88 X10^3/uL (0.83-4.51); Absolute Neutrophil Count 4.1 X10^3/uL (2.0-7.7); Basophil# 0.04 X10^3/uL; Basophil% 0.6 % (0-1); Eosinophils% 7.1 % (0-5); Hematocrit 32.4 % (37-47); Lymphocyte # 1.88 X10^3/ul (0.83-4.51); Lymphocyte % 26.6 % (19-41); Mean Corp Hgb Conc 30.9 g/dL (32-36); Mean Corpuscular Hgb 29.9 pg (27.0-32.0); Monocyte# 0.52 X10^3/uL; Monocyte% 7.4 % (0-10); NRBC Flagged by Analyzer 0 % (0-5); Neutrophil # 4.09 X10^3/uL (2.7-7.7); Neutrophil % 57.9 % (47-70); Platelet Count 193 K/mm3 (150-450); RBC Distribution Width CV 15.9 % (11.6-14.6); RBC Distribution Width SD 56.1 fl (35.1-43.9); Red Blood Count 3.34 M/mm3 (4.2-5.4); White Blood Count 7.1 K/mm3 (4.4-11.0)
[2023-07-21 17:48] LABS: Vitamin D,25 Hydroxy 57.8 ng/mL
[2023-07-21 17:53] LABS: ALB/GLOB Ratio 0.6 RATIO (0.9-2.4); AST(SGOT) 16 U/L (15-37); Alanine Aminotransfer ALT/SGPT 14 U/L (13-56); Alkaline Phosphatase 64 U/L (45-117); Anion Gap 4 (5-15); BUN 30 mg/dL (7-18); BUN/Creat Ratio 28.3 RATIO (10-20); Calcium,Total 10.2 mg/dL (8.5-10.1); Chloride 106 mmol/L (98-107); Creatinine, Serum 1.06 mg/dL (0.55-1.02); EST Glomerular Filtration Rate 54 mL/min (>60); Est Glom Filt Rate - Afr Amer 65 mL/min (>60); Glucose 162 mg/dL (74-106); Sodium Level 139 mmol/L (136-145); Thyroid Stim Hormone (TSH) 2.12 uIU/mL (0.358-3.74)
== END | disposition home or self-care (01) ==
LOC: POLAB3 15:37
PROVIDERS: PCP Family Medicine Geriatric Medicine; Visit Provider Family Medicine Geriatric Medicine
DX: E11.65 Type 2 diabetes mellitus with hyperglycemia (principal); I10 Essential (primary) hypertension; E55.9 Vitamin D deficiency, unspecified
CPT/HCPCS: 36415; 80053; 82306; 84443; 85025

== ENCOUNTER → 2023-07-27 | Outpatient (CLI) | payer MEDICARE, OTHER, SELFPAY | END | disposition home or self-care (01) | LOC: LABSPEC 15:33 | PROVIDERS: PCP Family Medicine Geriatric Medicine; Referring Provider Family Medicine Geriatric Medicine; Visit Provider Family Medicine Geriatric Medicine | DX: A04.72 Enterocolitis due to Clostridium difficile, not specified as recurrent (principal) ==

== ENCOUNTER 2023-08-05 07:17 | Day surgery (SDC) | payer MEDICARE, OTHER, SELFPAY ==
--- NOTE | 2023-08-04 15:50 | RAD_ITS ---
STUDY: X-RAY CHEST REASON FOR EXAM: Female, 73 years old. PREOP/RECENT COVID PNEUMONIA TECHNIQUE: PA and lateral views of the chest. COMPARISON: 06/26/2023. FINDINGS: Redemonstrated are prominence of central markings more so in the right lower lobe, may indicate mild vascular congestion. Cannot exclude right lower lobe atelectasis versus infiltrate. Otherwise lung oneil are clear. There is no demonstrated pleural abnormality. Normal size heart. Normal mediastinum and kim. Normal visualized pulmonary arteries. There is atherosclerotic calcification of the aortic arch with tortuosity. There are diffuse degenerative changes of the visualized thoracic spine. There is degenerative osteoarthritis of the bilateral shoulders. There is no demonstrated abnormality of the visualized soft tissue structures of the upper abdomen. RAD/Chest PA and Lateral IMPRESSION: Possible mild vascular congestion versus nonspecific confluence of vessels in the right lower lobe, difficult to exclude right lower lobe infiltrate versus atelectasis. Otherwise no acute cardiothoracic disease. Electronically Signed: Shruthi Linda MD at 2:58 EST ,
[2023-08-05 07:48] LABS: Bacteria 0 SEEN /hpf (None Seen); Mucous, Urine 0 SEEN /hpf (<or=2+); Red Blood Cells-Urine 0 SEEN /hpf (0-5); Squamous Epithelial Cells - UA 0 SEEN /hpf (5-10)
[2023-08-05 07:49] LABS: Color, Urine Yellow (Yellow); Glucose, Dipstick Normal (Normal); Ketone-Dipstick Negative (Negative); Leukocyte Esterase-Dipstick 500 /ul (Negative); Nitrite-Dipstick Negative (Negative); Occult Blood-Urine 150 /ul (Negative); Protein-Dipstick 100 mg/dl (Negative); Specific Gravity, Urine 1.015 (1.002-1.030); Urine Bilirubin Dipstick Negative (Negative); Urine Clarity Cloudy (Clear); Urine Urobilinogen Normal (Normal)
[2023-08-05 07:55] LABS: White Blood Cells >100 SEEN /hpf (0-5)
[2023-08-05 07:56] VITALS: BP 121/55; PULSE 85; RESP 16; TEMP 36.8; O2SAT 97; BMI 47.6
[2023-08-05 08:18] LABS: Bedside Glucose 99 mg/dL (74-106)
[2023-08-05] MEDS: Lactated Ringers 1,000 ML 15 ML IV (08:23)
--- NOTE | 2023-08-05 08:33 | DCINST_ITS ---
Discharge Instructions Diet Discharge Diet: No restrictions Activity Discharge Activity: Return to Normal Activity Dressing / Incision Call your doctor if you observe: Fever of 101 or Higher, Inability to urinate and Inability to have a bowel movement Follow Up Care Please Follow Up With: Marie Caldera MD When: the office will call to make arrangements Test Results: Test results from this visit will be discussed in further detail at your follow- up appointment, if applicable. Discharge Plan Admission Attending Provider: Marie Caldera Primary Care Provider: Corby Heller Chi Discharge Orders/Prescriptions Prescriptions: New oxycodone-acetaminophen [Percocet] 5-325 mg tablet 1 tab PO Q8H PRN (Reason: pain) 3 Days Qty: 9 0RF nitrofurantoin monohyd/m-cryst [Macrobid] 100 mg capsule 100 mg PO BID Qty: 6 0RF Rx Instructions: must administer with a meal/food Continued fluticasone propionate 1 SPRAY spray,suspension 2 spray NASAL DAILY citalopram 20 mg tablet 20 mg PO DAILY Patient Comments: TAKE 1/2 (ONE-HALF) OF A TABLET DAILY FOR 7 DAYS then TAKE 1 TABLET DAILY lovastatin 40 mg tablet 40 mg PO QHS Patient Comments: TAKE 1 TABLET DAILY AT BEDTIME levothyroxine 25 mcg tablet 25 mcg PO DAILY Patient Comments: TAKE 1 TABLET BY MOUTH ONCE DAILY pioglitazone 30 mg tablet 30 mg PO DAILY ropinirole 2 mg tablet 2 mg PO QHS budesonide 0.5 mg/2 mL Suspension For Nebulization 0.5 mg inhalation Q12H.RT Qty: 0 0RF metformin 500 mg tablet 500 mg PO BID ascorbic acid (vitamin C) [C-500] 500 mg tablet 500 mg PO DAILY coenzyme Q10 [Co Q-10] 100 mg capsule 100 mg PO DAILY Ycpuhymfuik-Kpofc-KFH Complex [id number] mg tablet 3 tab PO DAILY Tart Waldron Extract 1,000 mg capsule 1,000 mg PO DAILY ibuprofen [Advil] 200 mg tablet 200 mg PO PRN polysaccharide iron complex [Ferrex 150] 150 mg iron Capsule 150 mg PO DAILY 30 Days Qty: 30 0RF potassium chloride [Klor-Con M20] 20 mEq Tablet,Er Particles/Crystals 20 meq PO DAILYCM 30 Days Qty: 30 0RF nitrofurantoin monohyd/m-cryst 100 mg Capsule 100 mg PO BID 3 Days Qty: 6 0RF Referrals / Follow Up: Corby Heller Chi, MD [Primary Care Provider] - Disposition Disposition (needs filled in before D/C Order can be placed): Home, Self Care
--- NOTE | 2023-08-05 09:16 | PCM.OPRPT ---
Report of Operation Date of Procedure: 08/05/23 Pre-Operative Diagnosis: Bilateral kidney stones, urinary tract infections Post-Operative Diagnosis: Same Surgery/Procedure Performed:: Left renal extracorporal shockwave lithotripsy Surgeon: Marie Caldera Type of Anesthesia: General Specimen's removed: None Description of Procedure: The patient is a 73-year-old female status post cystoscopy with insertion of bilateral ureteral stents for bilateral renal stones with obstruction and infection. She now presents for definitive surgical intervention on the left side. Informed consent was obtained. The patient was taken to the operating room and placed on the operating room table. Anesthesia monitored the head, neck, airway, IV access and vital signs throughout the case. Once anesthesia was appropriately administered, the patient was aligned with the lithotripter. The stones were identified in the left kidney consistent with those seen on the CT scan. 3000 shocks were applied to the stones which appeared to be well fragmented at the conclusion of the case. There were no complications during the procedure. The patient was then awakened and taken to the recovery room in good condition. Grafts/Implants Used: None Complications None Admit VTE Documentation VTE Present on Admission: Yes VTE Mechan Device Prophylaxis: SCD's VTE Pharm Prophylaxis ordered?: No Reason prophylaxis not ordered:: Treatment Not Indicated
[2023-08-05] MEDS: Ciprofloxacin 400 MG/200 ML BAG 200 MG IV (09:20)
[2023-08-05 10:06] VITALS: BP 121/55; BP 138/52; PULSE 87; RESP 16; TEMP 36.1; O2SAT 88
[2023-08-05 10:15] VITALS: BP 112/54; BP 121/55; PULSE 88; RESP 16; O2SAT 93
[2023-08-05 10:30] VITALS: BP 106/37; BP 121/55; PULSE 87; RESP 16; O2SAT 98
[2023-08-05 10:45] VITALS: BP 111/94; BP 121/55; PULSE 89; RESP 16; TEMP 36.1; O2SAT 97
[2023-08-05 11:00] LABS: Bedside Glucose 104 mg/dL (74-106)
[2023-08-05 11:26] VITALS: BP 121/55
== END 2023-08-05 11:27 | disposition home or self-care (01) ==
LOC: SDC 07:18 → AC 07:18
PROVIDERS: PCP Family Medicine Geriatric Medicine; Referring Provider Urology; Visit Provider Urology
PROC: (CPT 50590; principal; 2023-08-05 08:40)
DX: N20.0 Calculus of kidney (principal); N39.0 Urinary tract infection, site not specified; I10 Essential (primary) hypertension; Z98.42 Cataract extraction status, left eye; Z87.19 Personal history of other diseases of the digestive system; E03.9 Hypothyroidism, unspecified; N32.81 Overactive bladder; N39.41 Urge incontinence
CPT/HCPCS: 50590; 00873; 71046; 81001; 82962; J7120; J0744; J2405

== ENCOUNTER → 2023-10-27 | Outpatient (CLI) | payer MEDICARE, OTHER, SELFPAY ==
--- OUTSIDE RECORDS SUMMARY | 2023-10-27 13:40 | XMS RPT_ITS | CCD ---
Author Name Unknown Address [address] [place] [address] Organization [facility] Care Team Providers Care Machine Shop Lead Man Name Role Phone Corby Heller Chi Primary Care Provider [phone] CORBY HELLER [facility]I Primary Care Unavailable AMARIS ANDERSON Attending Unavailable Allergies Allergy Classification Reported Allergen(s) Allergy Type Date of Onset Reaction(s) Facility (2 sources) Aspirin; Translations: [ASPIRIN] Drug Allergy 03-15-2012 Other: See Comments [facility] (2 sources) celecoxib; Translations: [CELECOXIB] Drug Allergy 03-15-2012 Shortness of Breath [facility] (2 sources) Cephalexin; Translations: [CEPHALEXIN] Drug Allergy 03-15-2012 Shortness of Breath [facility] (2 sources) Ibuprofen; Translations: [IBUPROFEN] Drug Allergy 06-09-2012 Other: See Comments [facility] Work Phone: (2 sources) Naproxen; Translations: [NAPROXEN SODIUM] Drug Allergy 03-15-2012 Other: See Comments [facility] (2 sources) oxaprozin; Translations: [OXAPROZIN] Drug Allergy 03-15-2012 Shortness of Breath [facility] (2 sources) traMADol; Translations: [TRAMADOL HCL] Drug Allergy 03-15-2012 Shortness of Breath [facility] Medications Completed/Discontinued Medications Medication Drug Class(es) Dates Sig (Normalized) Sig (Original) ascorbic acid 500 mg oral tablet (1 source) Vitamin C take 1 tablet by abdelrahman th twice daily ascorbic acid, vitamin C, (VITAMIN C) 500 mg tablet Take 500 mg by mouth twice daily. 0 Active Problems Active Problems Problem Classification Problem Date Documented Date Episodic/Chronic Other diseases of veins and lymphatics (1 source) Peripheral venous insufficiency; Translations: [Venous insufficiency (chronic) (peripheral)] Episodic Other nutritional; endocrine; and metabolic disorders (1 source) Morbid obesity; Translations: [Morbid (severe) obesity due to excess calories] Onset: 06-09-2012 06-09-2012 Chronic Past or Other Problems Problem Classification Problem Date Documented Da te Episodic/Chronic Calculus of urinary tract (1 source) Kidney stone; Translations: [Calculus of kidney] Onset: 05-18-2013 05-18-2013 Episodic Fluid and electrolyte disorders (1 source) Dehydration; Translations: [Dehydration] Onset: 01-19-2013 01-19-2013 Episodic Genitourinary symptoms and ill-defined conditions (3 sources) Urgent desire to urinate; Translations: [Urgency of urination] Onset: 06-09-2012 06-09-2012 Episodic Other screening for suspected conditions (not mental disorders or infectious disease) (1 source) Patient encounter status; Translations: [Encounter for screening for other disorder] Onset: 06-11-2015 06-11-2015 Episodic Urinary tract infections (1 source) Recurrent urinary tract infection; Translations: [Urinary tract infection, site not specified] Onset: 06-09-2012 06-09-2012 Episodic Results Test Name Value Interpretation Reference Range Facil ity Vital Signs Date Time Vital Sign Value Performing Clinician Meagan guan 08-04-2022 11:18-0500 Diastolic blood pressure 57 mm[Hg] Amaris Anderson DO Work Phone: [facility] 08-04-2022 11:18-0500 Heart rate 109 /min Amaris Justin DO Work Phone: [facility] 08-04-2022 11:18-0500 SaO2% (BldA) [Mass fraction] 96 % Amaris Anderson DO Work Phone: [facility] 08-04-2022 11:18-0500 Systolic blood pressure 131 mm[Hg] Amaris Anderson DO Work Phone: [facility] Encounters Encounter Date Encounter Type Care Provider Facility Start: 08-04-2022 End: 08-04-2022 ambulatory CORBY CHI MICHI Facility:[facility] Start: 08-04-2022 End: 08-04-2022 Patient encounter procedure Amaris Anderson DO Work Phone: Vascular Surgery Procedures Date Procedure Procedure Detail Performing Clinician Start: 07-19-2011 Mammography Amaris sesay DO Work Phone: Start: 07-19-2005 Colonoscopy Amaris sesay DO Work Phone: Plan of Treatment Date Care Activity Detail Author Start: 05-28-2022 Influenza vaccination INFLUENZA (#1) [facility] Start: 03-17-2022 COVID-19 VACCINE (4 - Booster for Luther series) COVID-19 VACCINE (4 - Booster for Luther series) [facility] Start: 09-27-2021 ADVANCE DIRECTIVE DISCUSSION ADVANCE DIRECTIVE DISCUSSION [facility] Start: 09-27-2021 DEPRESSION ASSESSMENT DEPRESSION ASS ESSMENT [facility] Start: 07-12-2017 LIPID SCREEN LIPID SCREEN [facility] Start: 07-19-2015 Colonoscopy COLONOSCOPY [facility] Start: 07-19-2015 COLORECTAL CANCER SCREENING COLORECTAL CANCER SCREENING [facility] Start: 07-05-2015 DIABETES SCREEN DIABETES SCREEN [facility] Start: 2014 BONE DENSITY BONE DENSITY [facility] Start: 2014 PNEUMOCOCCAL: 65+ (1 - PCV) PNEUMOCOCCAL: 65+ (1 - PCV) [facility] Start: 07-19-2012 Mammography MAMMOGRAM [facility] Start: 1999 SHINGRIX VACCINE (1 of 2) SHINGRIX V ACCINE (1 of 2) [facility] Start: 1994 COLOGUARD (FIT-DNA) COLOGUARD (FIT-D NA) [facility] Start: [address] COLONOGRAPHY [facility] Start: 1994 FECAL OCCULT BLOOD FECAL OCCULT BLOO D [facility] Start: 1994 SIGMOIDOSCOPY SIGMOIDOSCOPY [facility] Start: 02-14-1968 Urine microalbumin profile DTAP,TDAP ,TD (1 - Tdap) [facility] Start: 1967 HEPATITIS C SCREENING HEPATITIS C MARY HEARN [facility] Payers Date Payer Category Payer Private Health Insurance KEESHA GRIMALDO PPO [id number] 2017-Present [phone] [address] [place] [address] PPO [id number] 2017 Private Health Insurance [id number] 2003 Medicare MEDICARE MEDICAR E A AND B [id number] 2003-Present [phone] [place] [address] Medicare [id number] 2003 Medicare [id number] Social History Date Type Detail Facility [facility]: [facility]04[facility] Start: 08-04-2022 Tobacco use and exposure Smoke less tobacco non-user [facility] Start: 08-04-2022 Alcohol intake Current drinke r of alcohol (finding) [facility] Start: 06-09-2012 Alcohol Comment social only (1 2 drinks per year) [facility] Start: 1950 Sex Assigned At Not on file [facility] Progress note 08-04-2022 Note Date & Type Note Facility 08-04-2022 Note HNO ID: [id number] Author: Amaris Anderson DO Service: Vascular Surgery Author Type: Physician Type: Progress Notes Filed: 08/31/2022 2:37 PM Note Text: NAME: ELIZABETH GOMEZ CLINIC NO: [id number] DATE OF SERVICE: 08/04/2022 Subjective: Elizabeth is here to follow up on history of venous insufficiency, secondary lymphedema, bilateral lower extremity varicose veins. She recently had some bruising on her teresa that has been there following a trauma and she is concerned that it has been there for a longer period of time, as it happened earlier in the year. She intermittently wears her compression stockings. Objective: Her vital signs are stable. She is in no distress. She has resolving ecchymosis and some brownish skin staining. Assessment/Plan: 1. Venous insufficiency. 2. Secondary lymphedema. Reviewed the findings with Elizabeth. There is no concern, as it may take longer for the bruise to resolve due to her venous disease. Recommend she continue elevating and exercise as able, to and wear her compression as tolerated. She will follow up with us as needed. Amaris Anderson D.O. KB/089 Audio #: [id number] Date Dictated: 08/17/2022 14:07:13 Date Typed: 08/24/2022 05:15:14 Date Revised: 08/24/2022 19:43:54 [facility] Progress note 08-04-2022 Note Date & Type Note Facility 08-04-2022 Note HNO ID: [id number] Author: Amaris Anderson DO Service: ? Author Type: Physician Type: Progress Notes Filed: 08/17/2022 3:07 PM Note Text: This office note has been dictated. Amaris Anderson DO [facility] History of Present illness Narrative 08-04-2022 Amaris Anderson DO - 08/04/2022 11:43 AM EST Note Date & Type Note Facility 08-04-2022 History of Presen t illness Narrative This office note has been dictated. Amaris Anderson DO documented in this encounter [facility] Evaluation note Note Date & Type Note Facility documented in this encounter [facility] Summary Purpose Family History No Family History Records FoundNo Family History Records Found Advance Directives No Advanced Directives Records FoundNo Advanced Directives Records Found Additional Source Comments INFORMATION SOURCE (unrecogn ized section and content) DATE CREATED AUTHOR AUTHOR'S ORGANIZ ATION 09/01/2022 [facility] Source Comments (unrecognize d section and content) In the event this informatio n is protected by the Federal Confidentiality of Alcohol and Drug Abuse Patient Records regulations: The Federal rules restrict any use of the information to criminally investigate or prosecute any alcohol or drug abuse patient.[facility] Reason for Visit (unrecogniz ed section and content) Care Teams (unrecognized sec tion and content) FOR RECORDS PERTAINING TO PATIENTS WHO ARE OR HAVE BEEN ENROLLED IN A CHEMICAL DEPENDENCY/SUBSTANCEABUSE PROGRAM, SOME INFORMATION MAY BE OMITTED. This clinical summary was aggregated from multiple sources. Caution should be exercised in using it in the provision of clinical care. This summary normalizes information from multiple sources, and as a consequence, information in this document may materially change the coding, format and clinical context of patient data. In addition, data may be omitted in some cases. CLINICAL DECISIONS SHOULD BE BASED ON THE PRIMARY CLINICAL RECORDS. [facility]. provides no warranty or guarantee of the accuracy or completeness of information in this document.
[2023-10-27 15:35] LABS: Absolute Lymphocyte Count 2.35 X10^3/uL (0.83-4.51); Absolute Neutrophil Count 4.4 X10^3/uL (2.0-7.7); Basophil# 0.06 X10^3/uL; Basophil% 0.8 % (0-1); Eosinophil# 0.35 X10^3/uL; Eosinophils% 4.5 % (0-5); Hematocrit 33.1 % (37-47); Hemoglobin 10.1 g/dL (12.0-15.0); Lymphocyte # 2.35 X10^3/ul (0.83-4.51); Lymphocyte % 30.4 % (19-41); Mean Corp Hgb Conc 30.5 g/dL (32-36); Mean Corpuscular Hgb 28.9 pg (27.0-32.0); Mean Corpuscular Volume 94.8 fL (81-99); Mean Platelet Vol. 9.6 fl (6.2-12.0); Monocyte# 0.57 X10^3/uL; Monocyte% 7.4 % (0-10); NRBC Flagged by Analyzer 0 % (0-5); Neutrophil # 4.36 X10^3/uL (2.7-7.7); Neutrophil % 56.4 % (47-70); Platelet Count 257 K/mm3 (150-450); RBC Distribution Width CV 15.9 % (11.6-14.6); Red Blood Count 3.49 M/mm3 (4.2-5.4); White Blood Count 7.7 K/mm3 (4.4-11.0)
[2023-10-27 15:56] LABS: ALB/GLOB Ratio 0.6 RATIO (0.9-2.4); AST(SGOT) 19 U/L (15-37); Alanine Aminotransfer ALT/SGPT 16 U/L (13-56); Alkaline Phosphatase 71 U/L (45-117); Anion Gap 5 (5-15); BUN 22 mg/dL (7-18); BUN/Creat Ratio 21.4 RATIO (10-20); Calcium,Total 9.7 mg/dL (8.5-10.1); Chloride 107 mmol/L (98-107); Creatinine, Serum 1.03 mg/dL (0.55-1.02); EST Glomerular Filtration Rate 56 mL/min (>60); Est Glom Filt Rate - Afr Amer 67 mL/min (>60); Globulin 4.7 g/dL (2.2-4.2); Glucose 150 mg/dL (74-106); Potassium 4.2 mmol/L (3.5-5.1); Protein, Total 7.7 g/dL (6.4-8.2); Sodium Level 139 mmol/L (136-145); Thyroid Stim Hormone (TSH) 3.47 uIU/mL (0.358-3.74)
[2023-10-27 16:01] LABS: Vitamin D,25 Hydroxy 59.1 ng/mL
== END | disposition home or self-care (01) ==
LOC: POLAB3 13:14
PROVIDERS: PCP Family Medicine Geriatric Medicine; Visit Provider Family Medicine Geriatric Medicine
DX: E11.65 Type 2 diabetes mellitus with hyperglycemia (principal); I10 Essential (primary) hypertension; E55.9 Vitamin D deficiency, unspecified; N39.0 Urinary tract infection, site not specified
CPT/HCPCS: 36415; 80053; 82306; 84443; 85025; 87086; 87088

== ENCOUNTER → 2023-10-29 | Outpatient (CLI) | payer MEDICARE, OTHER, SELFPAY | END | disposition home or self-care (01) | LOC: SDC 08:23 → PAT 13:27 | PROVIDERS: PCP Family Medicine Geriatric Medicine; Visit Provider Urology | DX: N39.0 Urinary tract infection, site not specified (principal) | CPT/HCPCS: J7120 ==

== ENCOUNTER 2023-11-11 11:05 | Day surgery (SDC) | payer MEDICARE, OTHER, SELFPAY ==
[2023-11-11 11:47] VITALS: BP 148/80; PULSE 54; RESP 16; TEMP 36.6; O2SAT 98; BMI 46.5
[2023-11-11] MEDS: Lactated Ringers 1,000 ML 15 ML IV (12:04)
[2023-11-11] MEDS: Ciprofloxacin 400 MG/200 ML BAG 200 MG IV (12:46)
[2023-11-11 13:26] VITALS: BP 131/74; BP 148/80; PULSE 79; RESP 16; TEMP 36.8; O2SAT 99
[2023-11-11 13:30] VITALS: BP 111/91; BP 148/80; PULSE 79; RESP 16; O2SAT 98
[2023-11-11 13:35] VITALS: BP 100/85; BP 148/80; PULSE 78; RESP 16; O2SAT 99
[2023-11-11 13:40] VITALS: BP 114/75; BP 148/80; PULSE 76; RESP 16; TEMP 36.4; O2SAT 100
[2023-11-11 13:56] LABS: Bedside Glucose 100 mg/dL (74-106)
--- NOTE | 2023-11-11 14:03 | DCINST_ITS ---
Discharge Instructions Diet Discharge Diet: No restrictions Activity Discharge Activity: Return to Normal Activity Dressing / Incision Call your doctor if you observe: Fever of 101 or Higher, Inability to urinate and Inability to have a bowel movement Follow Up Care Please Follow Up With: Marie Caldera MD When: The office will call her to make follow up arrangements. Test Results: Test results from this visit will be discussed in further detail at your follow- up appointment, if applicable. Discharge Plan Admission Attending Provider: Marie Caldera Primary Care Provider: Corby Heller Chi Discharge Orders/Prescriptions Prescriptions: Continued fluticasone propionate 1 SPRAY spray,suspension 2 spray NASAL DAILY citalopram 20 mg tablet 20 mg PO QHS Patient Comments: TAKE 1/2 (ONE-HALF) OF A TABLET DAILY FOR 7 DAYS then TAKE 1 TABLET DAILY lovastatin 40 mg tablet 40 mg PO QHS Patient Comments: TAKE 1 TABLET DAILY AT BEDTIME levothyroxine 25 mcg tablet 25 mcg PO DAILY Patient Comments: TAKE 1 TABLET BY MOUTH ONCE DAILY pioglitazone 30 mg tablet 30 mg PO DAILY ropinirole 2 mg tablet 2 mg PO QHS budesonide 0.5 mg/2 mL Suspension For Nebulization 0.5 mg inhalation Q12H.RT Qty: 0 0RF metformin 500 mg tablet 500 mg PO BID ascorbic acid (vitamin C) [C-500] 500 mg tablet 500 mg PO DAILY coenzyme Q10 [Co Q-10] 100 mg capsule 100 mg PO DAILY Wyrknmhndaz-Wwwun-RSC Complex 867-799-66-0.5 mg tablet 3 tab PO DAILY Tart Waldron Extract 1,000 mg capsule 1,000 mg PO DAILY ibuprofen [Advil] 200 mg tablet 200 mg PO PRN Probiotic 15 billion cell capsule 1 cap PO DAILY cranberry 400 mg capsule 400 mg PO DAILY Rx Instructions: administer with a meal potassium chloride [Klor-Con M20] 20 mEq Tablet,Er Particles/Crystals 20 meq PO DAILYCM 30 Days Qty: 30 0RF Referrals / Follow Up: Corby Heller Chi, MD [Primary Care Provider] - Disposition Disposition (needs filled in before D/C Order can be placed): Home, Self Care
--- NOTE | 2023-11-11 14:06 | PCM.OPRPT ---
Report of Operation Date of Procedure: 11/11/23 Pre-Operative Diagnosis: Bilateral renal stones, urinary tract infection Post-Operative Diagnosis: Same Surgery/Procedure Performed:: Cystoscopy with bilateral ureteral stent change Surgeon: Marie Caldera Type of Anesthesia: MAC Description of Procedure: The patient is a 73-year-old female with bilateral renal stones. She has had a left extracorporal shockwave lithotripsy and now presents for right-sided shockwave lithotripsy with cystoscopy and bilateral stent change. She had a urine culture positive for yeast but still complains of burning with urination and signs of urinary tract infection. We discussed changing the ureteral stents, repeating the culture and rescheduling the shockwave lithotripsy. Informed consent was obtained. The patient was taken to the operating room and placed on the operating room table. Anesthesia monitored the head, neck, airway, IV access and vital signs throughout the case. Once anesthesia was administered, the patient was placed into dorsolithotomy position was prepped and draped in usual sterile fashion. Using fluoroscopic evaluation, there were several stone fragments seen along the proximal left ureter and into the renal pelvis around the coil of the stent. It was difficult to ascertain whether there were further stone fragments distally. The the stents appeared to be somewhat long for the patient. The decision was made to change to a 6 Occitan 22 cm stent. The cystoscope was inserted through the urethra under direct visualization. The right ureteral stent was grasped and pulled to the urethral meatus where it was backloaded with a 0.035 Glidewire. The stent was then removed leaving the Glidewire in position. A new 6 Occitan 22 cm stent was placed over the wire with good positioning in the renal pelvis as well as the urinary bladder. This process was then repeated on the patient's left side. At this time a belt was placed on her abdomen to determine if it would be possible to treat her right lower pole renal stone given her size and the proximity of the kidney to the acetabulum. She was able to tolerate the belt which did move the stone in a more cephalad position which was good for treatment. The patient was awakened and taken to the recovery room in good condition. There were no complications during this procedure. Grafts/Implants Used: 6 x 22 cm JJ stent x 2 Complications None Admit VTE Documentation VTE Present on Admission: Yes VTE Mechan Device Prophylaxis: SCD's VTE Pharm Prophylaxis ordered?: No Reason prophylaxis not ordered:: Treatment Not Indicated
[2023-11-11 14:55] VITALS: BP 129/51; BP 148/80; PULSE 78; RESP 18; O2SAT 97
== END 2023-11-11 15:02 | disposition home or self-care (01) ==
LOC: SDC 11:06 → AC 11:07
PROVIDERS: PCP Family Medicine Geriatric Medicine; Referring Provider Urology; Visit Provider Urology
PROC: (CPT 50590; principal; 2023-11-11 12:55)
DX: N20.0 Calculus of kidney (principal); I27.20 Pulmonary hypertension, unspecified; E11.9 Type 2 diabetes mellitus without complications; N39.0 Urinary tract infection, site not specified; J45.909 Unspecified asthma, uncomplicated; F32.9 Major depressive disorder, single episode, unspecified; I10 Essential (primary) hypertension; D64.9 Anemia, unspecified; E78.00 Pure hypercholesterolemia, unspecified
CPT/HCPCS: 52332; 00910; J7120; 82962; C2625; J0744; J2405

== ENCOUNTER 2023-11-25 10:14 | Day surgery (SDC) | payer MEDICARE, OTHER, SELFPAY ==
[2023-11-25] VITALS (10 sets, daily range): BP systolic 111–141; BP diastolic 45–120; PULSE 64–85; RESP 16–18; TEMP 36.2–36.6; O2SAT 92–98; BMI 45.8
[2023-11-25] MEDS: Lactated Ringers 1,000 ML 15 ML IV (11:04)
[2023-11-25] MEDS: Ciprofloxacin 400 MG/200 ML BAG 200 MG IV (11:05)
[2023-11-25 11:33] LABS: Bedside Glucose 118 mg/dL (74-106)
--- OUTSIDE RECORDS SUMMARY | 2023-11-25 12:05 | XMS RPT_ITS | CCD ---
Author Name Unknown Address [address] [place] [address] Organization [facility] Care Team Providers Care Laboratory Technology Teacher Name Role Phone Corby Heller Chi Primary Care Provider [phone] CORBY HELLER [facility] Primary Care Unavailable AMARIS ANDERSON Attending Unavailable Allergies Allergy Classification Reported Allergen(s) Allergy Type Date of Onset Reaction(s) Facility (2 sources) Aspirin; Translations: [ASPIRIN] Drug Allergy 03-15-2012 Other: See Comments [facility] (2 sources) celecoxib; Translations: [CELECOXIB] Drug Allergy 03-15-2012 Shortness of Breath [facility] (2 sources) Cephalexin; Translations: [CEPHALEXIN] Drug Allergy 03-15-2012 Shortness of Breath [facility] (2 sources) Ibuprofen; Translations: [IBUPROFEN] Drug Allergy 06-09-2012 Other: See Comments [facility] Work Phone: (2 sources) Naproxen; Translations: [NAPROXEN SODIUM] Drug Allergy 03-15-2012 Other: See Comments [facility] (2 sources) oxaprozin; Translations: [OXAPROZIN] Drug Allergy 03-15-2012 Shortness of Breath [facility] (2 sources) traMADol; Translations: [TRAMADOL HCL] Drug Allergy 03-15-2012 Shortness of Breath [facility] Medications Completed/Discontinued Medications Medication Drug Class(es) Dates [...] 57 mm[Hg] Amaris Anderson DO Work Phone: [facility] 08-04-2022 11:18-0500 Heart rate 109 /min Amaris Justin DO Work Phone: [facility] 08-04-2022 11:18-0500 SaO2% (BldA) [Mass fraction] 96 % Amaris Anderson DO Work Phone: [facility] 08-04-2022 11:18-0500 Systolic blood pressure 131 mm[Hg] Amaris Anderson DO Work Phone: [facility] Encounters Encounter Date Encounter Type Care Provider Facility Start: 08-04-2022 End: 08-04-2022 ambulatory CORBY CHI MICHI Facility:[facility] Start: 08-04-2022 End: 08-04-2022 Patient encounter procedure Amaris Anderson DO Work Phone: Vascular Surgery Procedures Date Procedure Procedure Detail Performing Clinician Start: 07-19-2011 Mammography Amaris sesay DO Work Phone: Start: 07-19-2005 Colonoscopy Amaris sesay DO Work Phone: Plan of Treatment Date Care Activity Detail Author Start: 05-28-2022 Influenza vaccination INFLUENZA (#1) [facility] Start: 03-17-2022 COVID-19 VACCINE (4 - Booster for Luther series) COVID-19 VACCINE (4 - Booster for Luther series) [facility] Start: 09-27-2021 ADVANCE DIRECTIVE DISCUSSION ADVANCE DIRECTIVE DISCUSSION [facility] Start: 09-27-2021 DEPRESSION ASSESSMENT DEPRESSION ASS ESSMENT [facility] Start: 07-12-2017 LIPID SCREEN LIPID SCREEN [facility] Start: 07-19-2015 Colonoscopy COLONOSCOPY [facility] Start: 07-19-2015 COLORECTAL CANCER SCREENING COLORECTAL CANCER SCREENING [facility] Start: 07-05-2015 DIABETES SCREEN DIABETES SCREEN [facility] Start: 2014 BONE DENSITY BONE DENSITY [facility] Start: 2014 PNEUMOCOCCAL: 65+ (1 - PCV) PNEUMOCOCCAL: 65+ (1 - PCV) [facility] Start: 07-19-2012 Mammography MAMMOGRAM [facility] Start: 1999 SHINGRIX VACCINE (1 of 2) SHINGRIX V ACCINE (1 of 2) [facility] Start: 1994 COLOGUARD (FIT-DNA) COLOGUARD (FIT-D NA) [facility] Start: [address] COLONOGRAPHY [facility] Start: 1994 FECAL OCCULT BLOOD FECAL OCCULT BLOO D [facility] Start: 1994 SIGMOIDOSCOPY SIGMOIDOSCOPY [facility] Start: 02-14-1968 Urine microalbumin profile DTAP,TDAP ,TD (1 - Tdap) [facility] Start: 1967 HEPATITIS C SCREENING HEPATITIS C MARY HEARN [facility] Payers Date Payer Category Payer Private Health Insurance KEESHA GRIMALDO PPO [id number] 2017-Present [phone] [address] [place] [address] PPO [id number] 2017 Private Health Insurance [id number] 2003 Medicare MEDICARE MEDICAR E A AND B [id number] 2003-Present [phone] [address] [address] [place] [address] Medicare [id number] 2003 Medicare [id number] Social History Date Type Detail Facility [facility]: [facility] Start: 08-04-2022 Tobacco use and exposure Smoke less tobacco non-user [facility] Start: 08-04-2022 Alcohol intake Current drinke r of alcohol (finding) [facility] Start: 06-09-2012 Alcohol Comment social only (1 2 drinks per year) [facility] Start: 1950 Sex Assigned At Not on file [facility] Progress note 08-04-2022 Note Date & Type Note Facility 08-04-2022 Note HNO ID: [id number] Author: Amaris Anderson DO Service: Vascular Surgery Author Type: Physician Type: Progress Notes Filed: 08/31/2022 2:37 PM Note Text: NAME: ELIZABETH GOMEZ CLINIC NO: [id number] DATE OF SERVICE: 08/04/2022 Subjective: Elizabeth is [...] needed. Amaris Anderson D.O. KB/089 Audio #: [id number] Date Dictated: 08/17/2022 14:07:13 Date Typed: 08/24/2022 05:15:14 Date Revised: 08/24/2022 19:43:54 [facility] Progress note 08-04-2022 Note Date & Type Note Facility 08-04-2022 Note HNO ID: [id number] Author: Amaris Anderson DO Service: ? Author Type: Physician Type: Progress Notes Filed: 08/17/2022 3:07 PM Note Text: This office note has been dictated. Amaris Anderson DO [facility] History of Present illness Narrative 08-04-2022 Amaris Anderson DO - 08/04/2022 11:43 AM EST Note Date & Type Note Facility 08-04-2022 History of Presen t illness Narrative This office note has been dictated. Amaris Anderson DO documented in this encounter [facility] Evaluation note Note Date & Type Note Facility documented in this encounter [facility] Summary Purpose Family History No Family History Records FoundNo Family History Records Found Advance Directives No Advanced Directives Records FoundNo Advanced Directives Records Found Additional Source Comments INFORMATION SOURCE (unrecogn ized section and content) DATE CREATED AUTHOR AUTHOR'S ORGANIZ ATION 09/01/2022 [facility] Source Comments (unrecognize d section and content) In the event this informatio n is protected by the Federal Confidentiality of Alcohol and Drug Abuse Patient Records regulations: The Federal rules restrict any use of the information to criminally investigate or prosecute any alcohol or drug abuse patient.[facility] Reason for Visit (unrecogniz ed section and [...] BE BASED ON THE PRIMARY CLINICAL RECORDS. [facility] [employer] [facility]. provides no warranty or guarantee of the accuracy or completeness of information in this document.
--- NOTE | 2023-11-25 12:19 | DCINST_ITS ---
Discharge Instructions Diet Discharge Diet: No restrictions Activity Discharge Activity: Return to Normal Activity Dressing / Incision Call your doctor if you observe: Fever of 101 or Higher, Inability to urinate and Inability to have a bowel movement Follow Up Care Please Follow Up With: Marie Caldera MD When: the office will call to make follow up arrangements Test Results: Test results from this visit will be discussed in further detail at your follow- up appointment, if applicable. Discharge Plan Admission Attending Provider: Marie Caldera Primary Care Provider: Corby Heller Chi Discharge Orders/Prescriptions Prescriptions: New oxycodone-acetaminophen [Percocet] 5-325 mg tablet 1 tab PO Q8H PRN (Reason: pain) 3 Days Qty: 10 0RF nitrofurantoin monohyd/m-cryst [Macrobid] 100 mg capsule 100 mg PO BID Qty: 6 0RF Rx Instructions: must administer with a meal/food fluconazole [Diflucan] 100 mg tablet 100 mg PO DAILY 5 Days Qty: 6 0RF Rx Instructions: take 2 tabs today and then one daily unitl gone nystatin 100,000 unit/gram ointment 1 applic topical BID Qty: 30 3RF Rx Instructions: apply to areas of redness in all skin folds twice daily Continued fluticasone propionate 1 SPRAY spray,suspension 2 spray NASAL DAILY citalopram 20 mg tablet 20 mg PO QHS Patient Comments: TAKE 1/2 (ONE-HALF) OF A TABLET DAILY FOR 7 DAYS then TAKE 1 TABLET DAILY lovastatin 40 mg tablet 40 mg PO QHS Patient Comments: TAKE 1 TABLET DAILY AT BEDTIME levothyroxine 25 mcg tablet 25 mcg PO DAILY Patient Comments: TAKE 1 TABLET BY MOUTH ONCE DAILY pioglitazone 30 mg tablet 30 mg PO DAILY ropinirole 2 mg tablet 2 mg PO QHS budesonide 0.5 mg/2 mL Suspension For Nebulization 0.5 mg inhalation Q12H.RT Qty: 0 0RF metformin 500 mg tablet 500 mg PO BID Patient Comments: WITH EACH MEAL ascorbic acid (vitamin C) [C-500] 500 mg tablet 500 mg PO DAILY coenzyme Q10 [Co Q-10] 100 mg capsule 50 mg PO DAILY Uliuksvoukf-Ivbgz-MKM Complex 218-001-60-0.5 mg tablet 3 tab PO DAILY Tart Waldron Extract 1,000 mg capsule 1,000 mg PO DAILY ibuprofen [Advil] 200 mg tablet 200 mg PO PRN Probiotic 15 billion cell capsule 1 cap PO DAILY cranberry 400 mg capsule 400 mg PO DAILY Rx Instructions: administer with a meal potassium chloride [Klor-Con M20] 20 mEq Tablet,Er Particles/Crystals 20 meq PO DAILYCM 30 Days Qty: 30 0RF lutein 20 mg capsule 20 mg PO DAILY Rx Instructions: give with meal/snack vitamin B complex Tablet 1 tab PO DAILY Referrals / Follow Up: Corby Heller Chi, MD [Primary Care Provider] - Disposition Disposition (needs filled in before D/C Order can be placed): Home, Self Care
--- NOTE | 2023-11-25 12:26 | OP.PCM_ITS ---
Report of Operation Date of Procedure: 11/25/23 Pre-Operative Diagnosis: left ureteral stones, right renal stones Post-Operative Diagnosis: same Surgery/Procedure Performed:: left ureteral and right renal extracorporal shockwave lithotripsy Surgeon: Marie Caldera Type of Anesthesia: General Specimen's removed: none Description of Procedure: The patient is a 73-year-old female with multiple stones bilaterally. She is already undergone a left renal extracorporal shockwave lithotripsy and now presents for treatment of the right kidney and the left ureter where stones have started passing. Informed consent was obtained. The patient was taken to the operating room and placed on the operating room table. Anesthesia monitored the head, neck, airway, IV access and vital signs throughout the case. Once anesthesia was appropriate ministered, she was positioned with the lithotripter such that the stones were easily seen. 3000 shocks were applied to the right re nal stones and 3000 shocks were applied to stones in the left ureter. The stones did appear to be fragmented at the conclusion of the case. She was awakened and taken to the recovery room in good condition. There were no complications during this procedure. Of note, all of her skin folds are erythematous and irritated consistent with yeast infection. Grafts/Implants Used: none Complications none Admit VTE Documentation VTE Present on Admission: Yes VTE Mechan Device Prophylaxis: SCD's VTE Pharm Prophylaxis ordered?: No Reason prophylaxis not ordered:: Treatment Not Indicated
[2023-11-25 14:58] LABS: Bedside Glucose 114 mg/dL (74-106)
== END 2023-11-25 15:30 | disposition home or self-care (01) ==
LOC: SDC 10:16 → AC 10:18
PROVIDERS: PCP Family Medicine Geriatric Medicine; Referring Provider Urology; Visit Provider Urology
PROC: (CPT 50590; principal; 2023-11-25 11:55)
DX: N20.2 Calculus of kidney with calculus of ureter (principal); E11.9 Type 2 diabetes mellitus without complications; E03.9 Hypothyroidism, unspecified; Z87.19 Personal history of other diseases of the digestive system; Z90.89 Acquired absence of other organs; Z98.42 Cataract extraction status, left eye; G25.81 Restless legs syndrome; E78.00 Pure hypercholesterolemia, unspecified; D64.9 Anemia, unspecified; J45.909 Unspecified asthma, uncomplicated; F32.9 Major depressive disorder, single episode, unspecified
CPT/HCPCS: 50590; 00873; 82962; J7120; J0744; J2405

== ENCOUNTER → 2023-12-16 | Outpatient (CLI) | payer MEDICARE, OTHER, SELFPAY ==
--- NOTE | 2023-12-16 13:11 | CT_ITS ---
HISTORY: CALCULUS OF KIDNEY. TECHNIQUE: Helically acquired images were obtained of the abdomen and pelvis without oral or IV contrast. A radiation dose optimization technique was used for this scan. 495 images. COMPARISON: None.. FINDINGS: LOWER CHEST: No acute consolidation in the lung bases. BOWEL: Bowel nondilated. Appendix not visualized. Extensive colonic diverticulosis without focal pericolonic inflammatory change. PERITONEUM: No significant free fluid. LIVER/SPLEEN: Nonenlarged. GALLBLADDER/BILIARY TREE: Gallbladder present. PANCREAS: Atrophic. No peripancreatic inflammation. KIDNEYS AND URETERS: Interval placement of bilateral ureteral stents. Right lower pole calculi measuring up to 10 mm. Multiple small 2 mm gravel-like calculi in the right proximal and mid ureter near the stent. No hydronephrosis. Multiple left renal calculi measuring up to 6 mm in the lower pole. Multiple small 2 mm bandlike calculi in the proximal to mid ureter along the stent. ADRENAL GLANDS: No nodules. VESSELS: No abdominal aortic aneurysm. Mild atherosclerosis. PELVIC ORGANS: Tips of bilateral ureteral stents in the bladder. ABDOMINAL WALL: Anterior mesh repair. BONES: Intact. CT/Abdomen/Pelvis without Cont IMPRESSION: Interval placement of bilateral ureteral stents without hydronephrosis. Multiple large bilateral renal calculi and small gravel-like ureteral calculi. Colonic diverticulosis without acute diverticulitis. Electronically Signed: Jerilyn Hernández MD at 11:57 EDT ,
== END | disposition home or self-care (01) ==
LOC: CT 13:09
PROVIDERS: PCP Family Medicine Geriatric Medicine; Referring Provider Urology; Visit Provider Urology
DX: N20.0 Calculus of kidney (principal)
CPT/HCPCS: 74176

== ENCOUNTER → 2024-01-17 | Outpatient (CLI) | payer MEDICARE, OTHER, SELFPAY ==
--- NOTE | 2024-01-17 13:27 | RAD_ITS ---
STUDY: X-RAY - ABDOMEN/PELVIS REASON FOR EXAM: Female, 73 years old. Renal stones. TECHNIQUE: Two AP supine views of the abdomen and pelvis. COMPARISON: CT of the abdomen and pelvis dated 06/25/2023. FINDINGS: Normal visualized lung bases. Bilateral double-J ureteral stents.. Multiple small calcifications projected over both renal outlines. The visualized liver, spleen and kidneys are grossly normal in size and morphology. Coils projected over the perineum. Lower lumbosacral spondylosis and moderate arthrosis of both sacroiliac joints and hips. RAD/Abdomen Single View IMPRESSION: Bilateral double-J ureteral stents. Multiple calcifications project over both renal shadows. No acute abnormality. Electronically Signed: Jaden Iraheta MD at 14:17 EDT ,
== END | disposition home or self-care (01) ==
PROVIDERS: PCP Family Medicine Geriatric Medicine; Referring Provider Urology; Visit Provider Urology
DX: N20.0 Calculus of kidney (principal)
CPT/HCPCS: 74018

== ENCOUNTER → 2024-01-24 | Outpatient (CLI) | payer MEDICARE, OTHER, SELFPAY ==
[2024-01-24 17:24] LABS: Hemoglobin 10.3 g/dL (12.0-15.0); Mean Corp Hgb Conc 29.4 g/dL (32-36); Mean Corpuscular Hgb 28.6 pg (27.0-32.0); Mean Corpuscular Volume 97.2 fL (81-99); Mean Platelet Vol. 9.8 fl (6.2-12.0); Platelet Count 216 K/mm3 (150-450); RBC Distribution Width CV 15.8 % (11.6-14.6); RBC Distribution Width SD 56.1 fl (35.1-43.9); White Blood Count 9.3 K/mm3 (4.4-11.0)
[2024-01-24 18:47] LABS: BUN 36 mg/dL (7-18); Glucose 121 mg/dL (74-106)
[2024-01-24 18:48] LABS: Anion Gap 9 (5-15); BUN/Creat Ratio 27.7 RATIO (10-20); Calcium,Total 9.7 mg/dL (8.5-10.1); Chloride 108 mmol/L (98-107); EST Glomerular Filtration Rate 43 mL/min (>60); Est Glom Filt Rate - Afr Amer 52 mL/min (>60); Potassium 4.7 mmol/L (3.5-5.1); Sodium Level 138 mmol/L (136-145)
== END | disposition home or self-care (01) ==
PROVIDERS: PCP Family Medicine Geriatric Medicine; Referring Provider Urology; Visit Provider Urology
DX: E11.65 Type 2 diabetes mellitus with hyperglycemia (principal); I10 Essential (primary) hypertension; E55.9 Vitamin D deficiency, unspecified
CPT/HCPCS: 36415; 80048; 84443; 85027

== ENCOUNTER 2024-01-27 09:22 | Day surgery (SDC) | payer MEDICARE, OTHER, SELFPAY ==
[2024-01-27] VITALS (7 sets, daily range): BP systolic 136–156; BP diastolic 70–103; PULSE 75–79; RESP 16; TEMP 36.1–36.6; O2SAT 88–98; BMI 45.6
[2024-01-27] MEDS: Lactated Ringers 1,000 ML 15 ML IV (10:12)
[2024-01-27 10:48] LABS: Bedside Glucose 118 mg/dL (74-106)
--- NOTE | 2024-01-27 11:00 | PCM.OPRPT ---
Problems Associated Problem List Diagnoses (1) Kidney stones: Report of Operation Date of Procedure: 01/27/24 Pre-Operative Diagnosis: Bilateral renal and ureteral stones Post-Operative Diagnosis: Same Surgery/Procedure Performed:: Cystoscopy, bilateral ureteroscopy, bilateral holmium laser lithotripsy, bilateral stone basket extraction, bilateral ureteral stent change Surgeon: Marie Caldera Type of Anesthesia: General Specimen's removed: stone fragments Description of Procedure: The patient is a 73-year-old female with bilateral large stones status post extracorporal shockwave lithotripsy here for ureteroscopy laser lithotripsy and stent change. Informed consent was obtained. The patient was taken to the operating room and placed on the operating room table. Anesthesia monitored the head, neck, airway, IV access and vital signs throughout the case. Once anesthesia was appropriately administered, the patient was placed into dorsolithotomy position was prepped and draped in usual sterile fashion. The cystoscope was inserted and through the urethra into the urinary bladder and the left ureteral stent was grasped and pulled out to the urethral meatus. A 0.035 Glidewire was loaded through the stent which was then removed. Using a semirigid ureteroscope, the left ureteral orifice was intubated and the scope was advanced into the mid ureter where multiple stone fragments were identified. They were grasped with a stone basket and retrieved into the urinary bladder. This process was repeated multiple times until the left ureter was free from stones. At this time a second Glidewire was placed and a flexible ureteroscope was passed over the wire into the renal pelvis. Multiple stones were identified. A 200 ?m laser fiber was used to obliterate the stones into small pieces and fragments. After spending significant amount of time breaking the stones into smaller pieces, the safety wire was used for placing a 6 Guatemalan 22 cm JJ stent with good positioning in the renal pelvis as well as the urinary bladder. At this time attention was turned towards the patient's right side. The stent there was grasped and pulled to the urethral meatus and loaded with a 0.035 Glidewire. The stent was then removed and the semirigid ureteroscope was utilized for cleaning out the right ureter. Once again multiple stone fragments were identified and were removed using a stone basket into the bladder lumen. Multiple trips were made until the ureter was clean. A second Glidewire was then placed. The flexible ureteroscope was passed over the wire into the renal pelvis. Within the renal pelvis there is a very large stone remaining at least 1.5 cm along with several other smaller stones. Using the laser, the stone's were broken into smaller pieces. A significant amount of time was spent breaking these stone fragments into smaller pieces. At the conclusion of this, the safety wire was used to place a 6 Guatemalan 22 cm JJ stent with good positioning also in the renal pelvis and urinary bladder. At this time the urinary bladder was irrigated and the stones were flushed out. About 2 cm of stone fragments were retrieved and submitted for analysis. The patient was then awakened and taken to the recovery room in good condition. There were no complications during this procedure. Grafts/Implants Used: 6 x 22 JJ stent x 2 Complications None Admit VTE Documentation VTE Present on Admission: Yes VTE Mechan Device Prophylaxis: SCD's VTE Pharm Prophylaxis ordered?: No Reason prophylaxis not ordered:: Treatment Not Indicated
--- NOTE | 2024-01-27 11:01 | DCINST_ITS ---
Discharge Instructions Diet Discharge Diet: No restrictions Activity Discharge Activity: Return to Normal Activity Dressing / Incision Call your doctor if you observe: Fever of 101 or Higher, Inability to urinate and Inability to have a bowel movement Follow Up Care Please Follow Up With: Marie Caldera MD When: Complete Macrobid Test Results: Test results from this visit will be discussed in further detail at your follow- up appointment, if applicable. Discharge Plan Admission Attending Provider: Marie Caldera Primary Care Provider: Corby Heller Chi Discharge Orders/Prescriptions Prescriptions: New oxycodone-acetaminophen [Percocet] 5-325 mg tablet 1 tab PO Q8H PRN (Reason: pain) 3 Days Qty: 10 0RF Continued fluticasone propionate 1 SPRAY spray,suspension 2 spray NASAL DAILY citalopram 20 mg tablet 20 mg PO QHS Patient Comments: TAKE 1/2 (ONE-HALF) OF A TABLET DAILY FOR 7 DAYS then TAKE 1 TABLET DAILY lovastatin 40 mg tablet 40 mg PO QHS Patient Comments: TAKE 1 TABLET DAILY AT BEDTIME levothyroxine 25 mcg tablet 25 mcg PO DAILY Patient Comments: TAKE 1 TABLET BY MOUTH ONCE DAILY pioglitazone 30 mg tablet 30 mg PO DAILY ropinirole 2 mg tablet 2 mg PO QHS budesonide 0.5 mg/2 mL Suspension For Nebulization 0.5 mg inhalation Q12H.RT Qty: 0 0RF metformin 500 mg tablet 500 mg PO BID Patient Comments: WITH EACH MEAL ascorbic acid (vitamin C) [C-500] 500 mg tablet 500 mg PO DAILY coenzyme Q10 [Co Q-10] 100 mg capsule 50 mg PO DAILY Fkpefxdhwhc-Rugag-VCC Complex 290-274-77-0.5 mg tablet 3 tab PO DAILY Tart Waldron Extract 1,000 mg capsule 1,000 mg PO DAILY ibuprofen [Advil] 200 mg tablet 200 mg PO PRN Probiotic 15 billion cell capsule 1 cap PO DAILY cranberry 400 mg capsule 400 mg PO DAILY Rx Instructions: administer with a meal potassium chloride [Klor-Con M20] 20 mEq Tablet,Er Particles/Crystals 20 meq PO DAILYCM 30 Days Qty: 30 0RF lutein 20 mg capsule 20 mg PO DAILY Rx Instructions: give with meal/snack vitamin B complex Tablet 1 tab PO DAILY oxycodone-acetaminophen [Percocet] 5-325 mg tablet 1 tab PO Q8H PRN (Reason: pain) 3 Days Qty: 10 0RF nitrofurantoin monohyd/m-cryst [Macrobid] 100 mg capsule 100 mg PO BID Qty: 6 0RF Rx Instructions: must administer with a meal/food fluconazole [Diflucan] 100 mg tablet 100 mg PO DAILY 5 Days Qty: 6 0RF Rx Instructions: take 2 tabs today and then one daily unitl gone nystatin 100,000 unit/gram ointment 1 applic topical BID Qty: 30 3RF Rx Instructions: apply to areas of redness in all skin folds twice daily Referrals / Follow Up: Corby Heller Chi, MD [Primary Care Provider] - Disposition Disposition (needs filled in before D/C Order can be placed): Home, Self Care
[2024-01-27] MEDS: Ciprofloxacin 400 MG/200 ML BAG 200 MG IV (11:10)
--- NOTE | 2024-01-27 11:10 | CALC_PTH ---
PATIENT: EDUAR GOMEZ LOC: [facility] [place] U#:[id number] AGE/SX: 73/F ROOM: RE01/27/[address]: Dr. Marie Caldera MD : 1950 BED: DIS: 01/27/2024 SPEC #: [id number] RECD: 01/27/24 13:55 STATUS: SHYANNE STUBBS #: [id number] HIEN: 01/27/24 11:[address]: Marie Caldera DEPT: SURGICAL PATHOLOGY RECD BY: Nelda Gomez ENTERED: 01/28/24 10:06 SP TYPE: Calculi OTHR DR: Dr. Corby Heller MD Tissues: CALCULI Procedures: Surgery Specimen Level I HEADER OPERATION: Cysto, bilateral utereroscopy, bilateral laser lithotripsy PRE-OP DIAGNOSIS: Bilateral renal stones TISSUE SUBMITTED: Urinary calculi GROSS DIAGNOSIS Fragments of stones, clinically urinary calculi (gross only). / 01/31/24 COMMENT The calculi are submitted in its entirety for chemical stone analysis. The results from this study will be reported separately. GROSS DESCRIPTION Received without fixative labeled with the patient's name and designated ureteral calculi. The specimen consists of a fragment of multiple irregular dark villa-black stone measuring 2.0 x 1.0 x 0.2 cm. The entire specimen is submitted for stone analysis. / 01/28/24 CPT: 84962
[2024-01-27 14:41] LABS: Bedside Glucose 122 mg/dL (74-106)
== END 2024-01-27 15:19 | disposition home or self-care (01) ==
LOC: SDC 09:23 → AC 09:25
PROVIDERS: PCP Family Medicine Geriatric Medicine; Referring Provider Family Medicine Geriatric Medicine; Visit Provider Urology
PROC: 0TJ98ZZ Inspection of Ureter, Via Natural or Artificial Opening Endoscopic (ICD-10-PCS; CPT 52352; principal; 2024-01-27 11:00)
DX: N20.2 Calculus of kidney with calculus of ureter (principal); E11.9 Type 2 diabetes mellitus without complications; J45.909 Unspecified asthma, uncomplicated; F32.9 Major depressive disorder, single episode, unspecified; D64.9 Anemia, unspecified; E78.00 Pure hypercholesterolemia, unspecified; Z87.19 Personal history of other diseases of the digestive system; E07.9 Disorder of thyroid, unspecified
CPT/HCPCS: 52356; 00918; 76000; 82360; 82962; 88300; J7120; C2625; J0744; J2405

== ENCOUNTER → 2024-02-22 | Outpatient (CLI) | payer MEDICARE, OTHER, SELFPAY ==
--- NOTE | 2024-02-22 15:33 | RAD_ITS ---
STUDY: X-RAY - ABDOMEN/PELVIS REASON FOR EXAM: Female, 74 years old. Renal calculi. Follow-up. TECHNIQUE: Single AP view of the abdomen / pelvis on 2 images. COMPARISON: January 17, 2024 FINDINGS: Normal visualized lung bases. Bilateral double-J ureteral stents.. Multiple small calcifications projected over both renal outlines. The visualized liver, spleen and kidneys are grossly normal in size and morphology. Coils projected over the perineum. Lower lumbosacral spondylosis and moderate arthrosis of both sacroiliac joints and hips. RAD/Abdomen Single View IMPRESSION: Bilateral double-J ureteral stents. Relatively stable multiple calcifications project over both renal shadows. No acute abnormality. Electronically Signed: Jaden Iraheta MD at 15:53 EDT ,
== END | disposition home or self-care (01) ==
LOC: MTRAD 15:32
PROVIDERS: PCP Family Medicine Geriatric Medicine; Referring Provider Urology; Visit Provider Urology
DX: N20.0 Calculus of kidney (principal)
CPT/HCPCS: 74018

== ENCOUNTER → 2024-03-07 | Outpatient (CLI) | payer MEDICARE, OTHER, SELFPAY ==
--- NOTE | 2024-03-07 | CT_ITS ---
STUDY: CT ABDOMEN AND PELVIS WITHOUT CONTRAST REASON FOR EXAM: Female, 74 years old. KIDNEY STONES RADIATION DOSAGE (If Supplied By Facility): CTDIvol = ( 23.69 ) mGy, DLP = ( 1219.45 ) mGycm TECHNIQUE: Transaxial images were obtained from the dome of the diaphragm to the symphysis pubis without oral contrast, and without intravenous contrast. Sagittal and coronal images were reconstructed. Individualized dose optimization techniques were used for this CT. COMPARISON: Comparison is made with prior study dated December 16, 2023. FINDINGS: The visualized lung bases are unremarkable. Coronary artery calcification. Normal liver. Normal gallbladder and extrahepatic biliary system. Normal spleen. There is diffuse atrophy of the pancreas. Normal bilateral adrenal glands. There is evidence of bilateral double-J ureteral stent catheters. Nonobstructive calculi are seen within the lower pole of the right kidney. The largest measures 1.5 cm. Stable small left intrarenal calculi. There is a small hiatal hernia. Normal small intestine. There are multiple colonic diverticula consistent with diverticulosis. The appendix is visualized and appears normal. There is diffuse atherosclerotic calcification of the abdominal aorta and its major visceral branches, without a demonstrated aneurysm. Normal inferior vena cava. Normal retroperitoneum. Normal urinary bladder. There is atrophy of the uterus. There is evidence of prior ventral hernia repair with mesh. There is evidence of calcified injection granulomas in both buttocks. There are degenerative changes of the visualized lumbar spine. Osteoarthritis of both hip joints. CT/Abdomen/Pelvis without Cont IMPRESSION: Stable examination. Sigmoid diverticulosis. Electronically Signed: Slade Boyd MD at 8:19 EDT ,
== END | disposition home or self-care (01) ==
LOC: CT 19:23
PROVIDERS: PCP Family Medicine Geriatric Medicine; Referring Provider Urology; Visit Provider Urology
DX: N20.0 Calculus of kidney (principal)
CPT/HCPCS: 74176

== ENCOUNTER → 2024-03-22 | Outpatient (CLI) | payer MEDICARE, OTHER, SELFPAY ==
--- NOTE | 2024-03-22 11:54 | CT_ITS ---
STUDY: CT ABDOMEN AND PELVIS WITH CONTRAST - URINARY TRACT REASON FOR EXAM: Female, 74 years old. Abdominal pain, left lower quadrant. RADIATION DOSAGE (If Supplied By Facility): CTDIvol = ( 21.95 ) mGy, DLP = ( 1626.62 ) mGycm TECHNIQUE: Oral and amp; IV Gastrografin and amp; 100mL Isovue-300 was administered. Transaxial images were obtained from the dome of the diaphragm to the symphysis pubis subsequent to contrast administration. Multiplanar coronal and sagittal images were reformatted. The protocol utilizes one or more of the following dose reduction techniques: automated exposure control, adjustment of mA and/or kV according to patient size,and/or use of iterative reconstruction technique. COMPARISON: June 25, 2023 December 16, 2023 and March 07, 2024 FINDINGS: There is a stable 4.4 mm nodule within the lingula. The visualized portions of the heart are within normal limits. Normal liver. Normal gallbladder and extrahepatic biliary system. Normal spleen. Normal pancreas. Normal bilateral adrenal glands. Normal visualized stomach. Normal small intestine. There is diverticulosis, with thickening of the distal descending colon wall, and mild pericolonic inflammation changes suggestive of acute diverticulitis. There is a round 2.9 x 3.2 cm hypointense filling defect within the posterior rectum (image 100 series 2). There is non-visualization of the appendix. Normal abdominal aorta. No retroperitoneal adenopathy. There are stable ureteral stents in place. There is no hydronephrosis. There are bilateral nonobstructing renal calculi measuring up to 12 mm on the right and 14 mm on the left. Normal urinary bladder. There are postsurgical changes of the anterior abdominal wall. There are diffuse degenerative changes of the visualized lumbar spine. CT/Abdomen/Pelvis WITH Contrast IMPRESSION: Focal diverticulitis within the distal descending colon; recommend direct visualization subsequent to treatment for cannot exclude an underlying mass. Indeterminant 2.9 x 3.2 cm filling defect within the rectum, may be secondary to its incompletely distended state however cannot exclude a neoplastic process. Stable bilateral ureteral stents. Bilateral nonobstructing renal calculi measuring up to 14 mm on the left. Electronically Signed: Dahlia Olvera MD at 14:35 EDT ,
[2024-03-22 12:30] LABS: Absolute Lymphocyte Count 1.91 X10^3/uL (0.83-4.51); Absolute Neutrophil Count 6.1 X10^3/uL (2.0-7.7); Basophil# 0.04 X10^3/uL; Basophil% 0.4 % (0-1); Eosinophil# 0.36 X10^3/uL; Eosinophils% 3.9 % (0-5); Hematocrit 31.3 % (37-47); Hemoglobin 9.6 g/dL (12.0-15.0); Lymphocyte # 1.91 X10^3/ul (0.83-4.51); Lymphocyte % 20.8 % (19-41); Mean Corp Hgb Conc 30.7 g/dL (32-36); Mean Corpuscular Hgb 29.3 pg (27.0-32.0); Mean Corpuscular Volume 95.4 fL (81-99); Mean Platelet Vol. 9.4 fl (6.2-12.0); Monocyte% 7.6 % (0-10); NRBC Flagged by Analyzer 0 % (0-5); Neutrophil # 6.12 X10^3/uL (2.7-7.7); Neutrophil % 66.8 % (47-70); Platelet Count 240 K/mm3 (150-450); RBC Distribution Width CV 15.8 % (11.6-14.6); RBC Distribution Width SD 55.5 fl (35.1-43.9); Red Blood Count 3.28 M/mm3 (4.2-5.4); White Blood Count 9.2 K/mm3 (4.4-11.0)
[2024-03-22 12:48] LABS: ALB/GLOB Ratio 0.7 RATIO (0.9-2.4); AST(SGOT) 18 U/L (15-37); Alanine Aminotransfer ALT/SGPT 16 U/L (13-56); Albumin, Serum 3.2 g/dL (3.2-5.0); Alkaline Phosphatase 78 U/L (45-117); Anion Gap 6 (5-15); BUN 48 mg/dL (7-18); BUN/Creat Ratio 33.8 RATIO (10-20); Calcium,Total 9.8 mg/dL (8.5-10.1); Chloride 104 mmol/L (98-107); Creatinine, Serum 1.42 mg/dL (0.55-1.02); EST Glomerular Filtration Rate 38 mL/min (>60); Est Glom Filt Rate - Afr Amer 46 mL/min (>60); Globulin 4.9 g/dL (2.2-4.2); Glucose 137 mg/dL (74-106); Potassium 4.4 mmol/L (3.5-5.1); Protein, Total 8.1 g/dL (6.4-8.2); Sodium Level 136 mmol/L (136-145)
== END | disposition home or self-care (01) ==
PROVIDERS: PCP Family Medicine Geriatric Medicine; Referring Provider Family Medicine Geriatric Medicine; Visit Provider Family Medicine Geriatric Medicine
DX: R10.9 Unspecified abdominal pain (principal); E78.5 Hyperlipidemia, unspecified; N39.0 Urinary tract infection, site not specified
CPT/HCPCS: 36415; 74177; 80053; 85025; 87077; 87086; 87088; 87186; Q9967

== ENCOUNTER 2024-04-06 09:20 | Day surgery (SDC) | payer MEDICARE, OTHER, SELFPAY ==
[2024-04-06] VITALS (9 sets, daily range): BP systolic 103–152; BP diastolic 63–95; PULSE 81–108; RESP 16–18; TEMP 36.2–36.6; O2SAT 92–97; BMI 47.2
--- NOTE | 2024-04-06 09:35 | PCM.PRE.AN2 ---
ASA Classification* ASA Classification ASA Classification: 3 Assessment & Plan Anesthesia* Anesthesia Assessment Anesthesia Assessment: Discussed sedation and/or anesthesia options, risks, benefits, and alternatives with patient/parents/legal guardian/POA. Questions invited. The patient/parents/legal guardian/POA seems to understand and agrees to proceed with anesthesia plan. Reviewed the physical assessment, medical history, allergy history and patient home medications list prior to surgery/procedure/anesthetic and documented any changes. Performed airway and anesthesia risk assessments. Anesthesia Type Anesthesia Type: General (see written pre anesthesia record for full assessment) Anesthesia Focused Assessment* Airway Assessment Mouth opens: >3 cm Mallampati Score: III Focused Labs Anesthesia Preop lab: CBC WBC 9.2 K/mm3 (4.4-11.0) 03/22/24 12:15 RBC 3.28 M/mm3 (4.2-5.4) L 03/22/24 12:15 Hgb 9.6 g/dL (12.0-15.0) L 03/22/24 12:15 Hct 31.3 % (37-47) L 03/22/24 12:15 Plt Count 240 K/mm3 (150-450) 03/22/24 12:15 CHEMISTRY Potassium 4.4 mmol/L (3.5-5.1) 03/22/24 12:15 Sodium 136 mmol/L (136-145) 03/22/24 12:15 Magnesium 2.3 mg/dL (1.6-2.6) 06/27/23 03:15 Phosphorus 4.1 mg/dL (2.5-4.9) 06/27/23 03:15 BUN 48 mg/dL (7-18) H 03/22/24 12:15 Creatinine 1.42 mg/dL (0.55-1.02) H 03/22/24 12:15 Glucose 137 mg/dL (74-106) H 03/22/24 12:15 POC Glucose 122 mg/dL (74-106) H 01/27/24 14:22 TSH 2.00 uIU/mL (0.358-3.74) 01/24/24 15:59 COAG PT 16.9 SECONDS (11.7-14.9) H 06/25/23 20:20 Pre-Assessment Diagnosis/Proposed Procedure Planned Operative Procedure(s): CYSTO BILAT URETEROSCOPY LASER LITHOTRIPSY URETERAL STENT CHANGE STONE BASKET EXTRACTON Anesthesia History 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 When Was Last Pacemaker Check QUESTION #4 FULL TEXT: You/Your Family Experience fever (hyperthermia) with Anesthesia Last Oral Intake Last Oral intake: Last Oral Intake NPO since Meds taken in AM with sips of water? 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 Has anyone observed you stop breathing during sleep? STOP Results Positive 03/23/24 14:09 QUESTION #5 FULL TEXT : Do you snore loudly (louder than talking or can be heard through closed doors)? 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 Specify any problems Hx of Preganancy in last 3 N/A 03/23/24 14:09 Months Nurse Filling Out Transfusion DSCHRIBER 03/23/24 14:09 & Questions: Date: 03/23/24 03/23/24 14:09 Time: 14:13 03/23/24 14:09 Patient unable to answer at this time (ie. 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 worker Hx Now Gestational Age (in weeks): EDC: Hx Hx Para Hx Section SAB Active Medications Active Medications: Current Medications Generic Name Dose Route Start Last Admin Trade Name Freq PRN Reason Stop Dose Admin Ciprofloxacin 400 mg in 200 mls @ 200 mls/hr 04/06/24 13:25 Cipro IV 04/06/24 14:24 PREOP ONE Lactated Ringer's 1,000 mls @ 15 mls/hr 04/06/24 09:30 IV .Q48H BARB PFSH Medical History History of diverticulitis Sleep apnea Restless legs MRSA infection Wears glasses Post-menopausal Alcohol use Thyroid disease Arthritis High cholesterol Back pain Injury of head and neck Non-smoker Shortness of breath on exertion History of pain when walking History of echocardiogram Sinus tachycardia by electrocardiogram Anemia Thrombocytopenia Depression Anxiety Osteoarthritis Kidney stones Asthma Hypertension Diabetes Fibromyalgia Foot arch pain COVID-19 Home Medications ?Medication ?Instructions ?Recorded ?Last Taken ?Type fluticasone propionate 50 2 spray NASAL DAILY allergies 12/07/16 11/24/23 History mcg/actuation nasal spray,suspension citalopram 20 mg tablet 20 mg PO QHS DEPRESSION 04/26/21 11/24/23 History levothyroxine 25 mcg tablet 25 mcg PO DAILY thyroid 04/29/21 01/27/24 History lovastatin 40 mg tablet 40 mg PO QHS cholesterol 04/29/21 11/24/23 History pioglitazone 30 mg tablet 30 mg PO DAILY DM 06/25/23 11/24/23 History ropinirole 2 mg tablet 2 mg PO QHS RLS 06/25/23 11/24/23 History potassium chloride 20 mEq 20 meq PO DAILYCM 30 days #30 tabs 07/14/23 11/24/23 Rx tablet,extended release(part/cryst) (Klor-Con M) ascorbic acid (vitamin C) 500 mg 500 mg PO DAILY 08/02/23 11/24/23 History tablet (C-500) coenzyme Q10 100 mg capsule (Co 50 mg PO DAILY 08/02/23 11/24/23 History Q-10) glucosamine 375 ky-srsebyulk-ohg 3 tab PO DAILY 08/02/23 11/24/23 History no1 500 mg-C 15 mg-gianni 0.5 mg tablet (Gzwjfdxebvv-Wvlpmkogfxp-IBF Complex) ibuprofen 200 mg tablet (Advil) 200 mg PO PRN PAIN 08/02/23 Unknown History metformin 500 mg tablet 500 mg PO BID 08/02/23 11/24/23 History sour waldron extract 1,000 mg 1,000 mg PO DAILY 08/02/23 11/24/23 History capsule (Tart Waldron Extract) Lactobacillus acidophilus and 1 cap PO DAILY 11/03/23 11/24/23 History rhamnosus 15 billion cell capsule (Probiotic) cranberry 400 mg capsule 400 mg PO DAILY 11/03/23 11/24/23 History lutein 20 mg capsule 20 mg PO DAILY 11/23/23 Unknown History vitamin B complex 1 tab PO DAILY 11/23/23 11/24/23 History budesonide 0.5 mg/2 mL suspension 0.5 mg inhalation Q12H PRN PRN 03/23/24 Unknown History for nebulization breathing Allergy/AdvReac Type Severity Reaction Status Date / Time cephalexin monohydrate (From Allergy Swelling Verified 03/23/24 14:06 Keflex) ibuprofen Allergy Swelling Verified 03/23/24 14:06 oxaprozin (From Daypro) Allergy Swelling Verified 03/23/24 14:06 tramadol HCl (From Ultram) Allergy Swelling Verified 03/23/24 14:06 celecoxib (From Celebrex) AdvReac DIZZY AND Verified 03/23/24 14:06 HURTS AROUND MY LIVER Family History Other Diabetes Hypertension Surgical History Hx of bilateral cataract extraction History of cystoscopy Hx of umbilical hernia repair History of carpal tunnel surgery of left wrist Hx of tonsillectomy Hx of colonoscopy History of ureter stent Social History household members: children housing: house Smoking Status: Never smoker alcohol intake: never substance use type: does not use Review of Systems (Anesthesia) ROS Narrative System reviewed and no additional complaints, except as documented.
[2024-04-06] MEDS: Lactated Ringers 1,000 ML 15 ML IV (09:58)
[2024-04-06 10:57] LABS: Bedside Glucose 110 mg/dL (74-106)
[2024-04-06] MEDS: Ciprofloxacin 400 MG/200 ML BAG 200 MG IV (10:57)
--- NOTE | 2024-04-06 13:08 | PCM.POST.ANE ---
Anesthesia: Postop Eval I Current Vital Signs Temperature: 97.7 F Pulse Rate: 90 Blood Pressure: 129/95 Respiratory Rate: 18 Pulse Ox: 93 Assessment Airway patent: Yes Spontaneous unlabored respirations: Yes nausea: No Vomiting: No Anesthesia Complication: No Fluid Hydration Crystalloid volume administer (ml): 1,000 Total IV fluid infused: 1,000 Progress Note Anesthesia document: Postop Eval 1 completed: Yes
--- NOTE | 2024-04-06 13:09 | DCINST_ITS ---
Discharge Instructions Diet Discharge Diet: No restrictions Activity Discharge Activity: Return to Normal Activity Dressing / Incision Call your doctor if you observe: Fever of 101 or Higher, Inability to urinate and Inability to have a bowel movement Follow Up Care Please Follow Up With: Marie Caldera MD When: The office will call for follow up. Test Results: Test results from this visit will be discussed in further detail at your follow- up appointment, if applicable. Discharge Plan Admission Attending Provider: Marie Caldera Primary Care Provider: Corby Heller Chi Instructions Print Language: Cambodian Discharge Orders/Prescriptions Prescriptions: New phenazopyridine 100 mg tablet 100 mg PO TID Qty: 30 0RF ciprofloxacin HCl [Cipro] 250 mg tablet 250 mg PO BID 3 Days Qty: 6 0RF oxycodone-acetaminophen [Percocet] 5-325 mg tablet 1 tab PO Q8H PRN (Reason: pain) 3 Days Qty: 10 0RF Continued fluticasone propionate 1 SPRAY spray,suspension 2 spray NASAL DAILY citalopram 20 mg tablet 20 mg PO QHS Patient Comments: TAKE 1/2 (ONE-HALF) OF A TABLET DAILY FOR 7 DAYS then TAKE 1 TABLET DAILY lovastatin 40 mg tablet 40 mg PO QHS Patient Comments: TAKE 1 TABLET DAILY AT BEDTIME levothyroxine 25 mcg tablet 25 mcg PO DAILY Patient Comments: TAKE 1 TABLET BY MOUTH ONCE DAILY pioglitazone 30 mg tablet 30 mg PO DAILY ropinirole 2 mg tablet 2 mg PO QHS metformin 500 mg tablet 500 mg PO BID Patient Comments: WITH EACH MEAL ascorbic acid (vitamin C) [C-500] 500 mg tablet 500 mg PO DAILY coenzyme Q10 [Co Q-10] 100 mg capsule 50 mg PO DAILY Algyoqhlvco-Ziwqs-XVA Complex 144-816-71-0.5 mg tablet 3 tab PO DAILY Tart Waldron Extract 1,000 mg capsule 1,000 mg PO DAILY ibuprofen [Advil] 200 mg tablet 200 mg PO PRN Probiotic 15 billion cell capsule 1 cap PO DAILY cranberry 400 mg capsule 400 mg PO DAILY Rx Instructions: administer with a meal potassium chloride [Klor-Con M20] 20 mEq Tablet,Er Particles/Crystals 20 meq PO DAILYCM 30 Days Qty: 30 0RF lutein 20 mg capsule 20 mg PO DAILY Rx Instructions: give with meal/snack vitamin B complex Tablet 1 tab PO DAILY budesonide 0.5 mg/2 mL Suspension For Nebulization 0.5 mg inhalation Q12H PRN PRN (Reason: breathing) Referrals / Follow Up: Corby Heller Chi, MD [Primary Care Provider] - Disposition Disposition (needs filled in before D/C Order can be placed): Home, Self Care
--- NOTE | 2024-04-06 13:26 | POSTOPAN2_ITS ---
Anesthesia Postop Eval I Sum Postop Eval Completion status Anesthesia document: Postop Eval 1 completed: Yes Anesthesia Postop Eval I Summary Anesthesia Postop Eval I Summary: Anesthesia Postop Eval I: Assessment Summary Airway patent Yes 04/06/24 13:08 [email or web address] Spontaneous unlabored Yes 04/06/24 13:08 GARAGE [email or web address] respirations Mental status nausea No 04/06/24 13:08 GARAGE [email or web address].CSIR Vomiting No 04/06/24 13:08 GARAGE [email or web address].CSIR Anesthesia Postop Eval I: Fluid Summary Crystalloid volume administer 1,000 04/06/24 13:08 GARAGE [email or web address].CSIR (ml) Colloids volume administered ( ml) Blood Product volume administered (ml) Total IV fluid infused 1,000 04/06/24 13:08 GARAGE [email or web address].CSIR Anesthesia Postop Eval I: Summary Notes Anesthesia Complication No 04/06/24 13:08 GARAGE LABORER.CSIR Anesthesia Complication Comment: Post-operative progress note Anesthesia: Postop Eval II Evaluation Mental status: Awake Pain Level: 0 nausea: No Vomiting: No
--- NOTE | 2024-04-06 13:26 | PCM.POSTANE2 ---
Anesthesia Postop Eval I Sum Postop Eval Completion status Anesthesia document: Postop Eval 1 completed: Yes Anesthesia Postop Eval I Summary Anesthesia Postop Eval I Summary: Anesthesia Postop Eval I: Assessment Summary Airway patent Yes 04/06/24 13:08 [email or web address] [email or web address] Spontaneous unlabored Yes 04/06/24 13:08 BREAKER [email or web address].CSIR respirations Mental status nausea No 04/06/24 13:08 BREAKER [email or web address].CSIR Vomiting No 04/06/24 13:08 BREAKER [email or web address].CSIR Anesthesia Postop Eval I: Fluid Summary Crystalloid volume administer 1,000 04/06/24 13:08 BREAKER [email or web address].CSIR (ml) Colloids volume administered ( ml) Blood Product volume administered (ml) Total IV fluid infused 1,000 04/06/24 13:08 BREAKER [email or web address].CSIR Anesthesia Postop Eval I: Summary Notes Anesthesia Complication No 04/06/24 13:08 BREAKER [email or web address].CSIR Anesthesia Complication Comment: Post-operative progress note Anesthesia: Postop Eval II Evaluation Mental status: Awake Pain Level: 0 nausea: No Vomiting: No
--- NOTE | 2024-04-06 14:23 | OP.PCM_ITS ---
Report of Operation Date of Procedure: 04/06/24 Pre-Operative Diagnosis: Bilateral ureteral and kidney stones Post-Operative Diagnosis: Same Surgery/Procedure Performed:: Cystoscopy, bilateral ureteroscopy, stone basket extraction, bilateral ureteral stent change Surgeon: Marie Caldera Type of Anesthesia: General Specimen's removed: Stones Description of Procedure: The patient is a 74-year-old female with a heavy stone burden bilaterally who presents for repeat surgical intervention. Informed consent was obtained. The patient was taken to the operating room and placed on the operating room table. Anesthesia monitored the head, neck, airway, IV access and vital signs throughout the case. Once anesthesia was appropriately administered, she was placed into dorsolithotomy position was prepped and draped in usual sterile fashion. Cystoscope was inserted through the urethra under direct visualization into the urinary bladder. Beginning on the right side, 2 separate 0.035 Glidewire's were passed alongside the indwelling right ureteral stent which was then removed. A semirigid ureteroscope was then used to stone basket remove multiple large stone fragments. Due to her size, the stones were then dropped into the urinary bladder. Once the ureter was completely free of stone fragments, the flexible ureteroscope was taken all the way into the renal pelvis where a approximately 7 to 8 mm stone fragment remained. There was significant amount of debris and edema and at this time the decision was made to leave this and proceed with the other side. The cystoscope was used with one of the wires to place a 6 Icelandic 22 cm JJ stent with good positioning in the renal pelvis as well as the urinary bladder. This process was repeated on the patient's left side where once again multiple large stone fragments were basket retrieved from the proximal ureter. 1 large remaining stone approximately 8 to 9 mm in size was identified within the renal pelvis. The stone was left in place. A significant amount of time was spent with multiple trips with the semirigid ureteroscope remade in order to clean the ureter from all of the stone burden. The ureteral stent 6 Icelandic by 22 cm was replaced. The patient's bladder was emptied, the cystoscope was removed. The patient was awakened and taken to the recovery room in good condition. There were no complications during the procedure. Grafts/Implants Used: 6 x 22 cm JJ stent Complications None Admit VTE Documentation VTE Present on Admission: Yes VTE Mechan Device Prophylaxis: SCD's VTE Pharm Prophylaxis ordered?: No Reason prophylaxis not ordered:: Treatment Not Indicated
[2024-04-06] MEDS: Phenazopyridine 95 MG Tablet PO (14:30)
== END 2024-04-06 14:42 | disposition home or self-care (01) ==
LOC: SDC 09:22 → AC 09:22
PROVIDERS: PCP Family Medicine Geriatric Medicine; Referring Provider Urology; Visit Provider Urology
PROC: 0TJ98ZZ Inspection of Ureter, Via Natural or Artificial Opening Endoscopic (ICD-10-PCS; CPT 52352; principal; 2024-04-06 10:40)
DX: N20.2 Calculus of kidney with calculus of ureter (principal); E11.9 Type 2 diabetes mellitus without complications; F41.9 Anxiety disorder, unspecified; J45.909 Unspecified asthma, uncomplicated; F32.A Depression, unspecified; E03.9 Hypothyroidism, unspecified; N32.81 Overactive bladder; N39.0 Urinary tract infection, site not specified; D64.9 Anemia, unspecified; E78.00 Pure hypercholesterolemia, unspecified; G25.81 Restless legs syndrome; Z79.84 Long term (current) use of oral hypoglycemic drugs; Z79.899 Other long term (current) drug therapy
CPT/HCPCS: 52332; 52351; 00910; 76000; 82360; 82962; J7120; C2625; J0744; J2405

== ENCOUNTER → 2024-04-11 | Outpatient (CLI) | payer MEDICARE, OTHER, SELFPAY ==
[2024-04-11 16:15] LABS: Absolute Lymphocyte Count 2.02 X10^3/uL (0.83-4.51); Absolute Neutrophil Count 5.6 X10^3/uL (2.0-7.7); Basophil# 0.04 X10^3/uL; Basophil% 0.5 % (0-1); Eosinophil# 0.28 X10^3/uL; Eosinophils% 3.2 % (0-5); Hematocrit 30.3 % (37-47); Hemoglobin 9.3 g/dL (12.0-15.0); Lymphocyte # 2.02 X10^3/ul (0.83-4.51); Lymphocyte % 23.1 % (19-41); Mean Corp Hgb Conc 30.7 g/dL (32-36); Mean Corpuscular Hgb 29.3 pg (27.0-32.0); Mean Corpuscular Volume 95.6 fL (81-99); Mean Platelet Vol. 9.2 fl (6.2-12.0); Monocyte# 0.77 X10^3/uL; Monocyte% 8.8 % (0-10); NRBC Flagged by Analyzer 0 % (0-5); Neutrophil # 5.59 X10^3/uL (2.7-7.7); Neutrophil % 63.8 % (47-70); Platelet Count 275 K/mm3 (150-450); RBC Distribution Width CV 16.1 % (11.6-14.6); RBC Distribution Width SD 57.3 fl (35.1-43.9); Red Blood Count 3.17 M/mm3 (4.2-5.4); White Blood Count 8.8 K/mm3 (4.4-11.0)
[2024-04-11 16:44] LABS: Hemoglobin A1c 5.8 % (3.8-5.6)
[2024-04-11 17:00] LABS: ALB/GLOB Ratio 0.6 RATIO (0.9-2.4); AST(SGOT) 18 U/L (15-37); Alanine Aminotransfer ALT/SGPT 15 U/L (13-56); Albumin, Serum 2.8 g/dL (3.2-5.0); Alkaline Phosphatase 58 U/L (45-117); Anion Gap 3 (5-15); BUN 21 mg/dL (7-18); BUN/Creat Ratio 19.6 RATIO (10-20); Calcium,Total 9.3 mg/dL (8.5-10.1); Chloride 107 mmol/L (98-107); Cholesterol 141 mg/dL (200); Creatinine, Serum 1.07 mg/dL (0.55-1.02); EST Glomerular Filtration Rate 53 mL/min (>60); Est Glom Filt Rate - Afr Amer 64 mL/min (>60); Globulin 4.9 g/dL (2.2-4.2); Glucose 100 mg/dL (74-106); High Density Lipoprotein 47 mg/dL; Potassium 4.8 mmol/L (3.5-5.1); Protein, Total 7.7 g/dL (6.4-8.2); Sodium Level 139 mmol/L (136-145); Thyroid Stim Hormone (TSH) 3.21 uIU/mL (0.358-3.74); Triglycerides 126 mg/dL; Very Low Density Lipoprotein 25 mg/dL (5-40)
== END | disposition home or self-care (01) ==
LOC: LAB 15:19
PROVIDERS: PCP Family Medicine Geriatric Medicine; Referring Provider Family Medicine Geriatric Medicine; Visit Provider Family Medicine Geriatric Medicine
DX: E11.65 Type 2 diabetes mellitus with hyperglycemia (principal); I10 Essential (primary) hypertension; E55.9 Vitamin D deficiency, unspecified; E78.5 Hyperlipidemia, unspecified
CPT/HCPCS: 36415; 80053; 80061; 82306; 83036; 84443; 85025

== ENCOUNTER → 2024-05-24 | Outpatient (CLI) | payer MEDICARE, OTHER, SELFPAY ==
[2024-05-24 18:11] LABS: Hematocrit 30.7 % (37-47); Hemoglobin 9.5 g/dL (12.0-15.0); Mean Corp Hgb Conc 30.9 g/dL (32-36); Mean Corpuscular Hgb 29.8 pg (27.0-32.0); Mean Corpuscular Volume 96.2 fL (81-99); Platelet Count 263 K/mm3 (150-450); RBC Distribution Width CV 14.6 % (11.6-14.6); RBC Distribution Width SD 51.7 fl (35.1-43.9); Red Blood Count 3.19 M/mm3 (4.2-5.4); White Blood Count 8.2 K/mm3 (4.4-11.0)
[2024-05-24 18:35] LABS: Anion Gap 7 (5-15); BUN 21 mg/dL (7-18); BUN/Creat Ratio 18.6 RATIO (10-20); Calcium,Total 9.2 mg/dL (8.5-10.1); Chloride 105 mmol/L (98-107); Creatinine, Serum 1.13 mg/dL (0.55-1.02); EST Glomerular Filtration Rate 50 mL/min (>60); Est Glom Filt Rate - Afr Amer 60 mL/min (>60); Glucose 115 mg/dL (74-106); Potassium 4.1 mmol/L (3.5-5.1); Sodium Level 137 mmol/L (136-145)
== END | disposition home or self-care (01) ==
LOC: MTLAB 14:40
PROVIDERS: PCP Family Medicine Geriatric Medicine; Referring Provider Urology; Visit Provider Urology
DX: N20.0 Calculus of kidney (principal)
CPT/HCPCS: 36415; 80048; 85027

== ENCOUNTER 2024-06-01 07:12 | Day surgery (SDC) | payer MEDICARE, OTHER, SELFPAY ==
[2024-06-01] VITALS (14 sets, daily range): BP systolic 137–157; BP diastolic 63–106; PULSE 16–102; RESP 16–20; TEMP 36.2–36.9; O2SAT 90–100; BMI 46.3
--- NOTE | 2024-06-01 07:42 | PRE.ANES_ITS ---
ASA Classification* ASA Classification ASA Classification: 3 Assessment & Plan Anesthesia* Anesthesia Assessment Anesthesia Assessment: Discussed sedation and/or anesthesia options, risks, benefits, and alternatives with patient/parents/legal guardian/POA. Questions invited. The patient/parents/legal guardian/POA seems to understand and agrees to proceed with anesthesia plan. Reviewed the physical assessment, medical history, allergy history and patient home medications list prior to surgery/procedure/anesthetic and documented any changes. Performed airway and anesthesia risk assessments. Anesthesia Type Anesthesia Type: General (see written pre anesthesia record for full assessment) Anesthesia Focused Assessment* Airway Assessment Mouth opens: >3 cm Mallampati Score: III Focused Labs Anesthesia Preop lab: CBC WBC 8.2 K/mm3 (4.4-11.0) 05/24/24 14:43 RBC 3.19 M/mm3 (4.2-5.4) L 05/24/24 14:43 Hgb 9.5 g/dL (12.0-15.0) L 05/24/24 14:43 Hct 30.7 % (37-47) L 05/24/24 14:43 Plt Count 263 K/mm3 (150-450) 05/24/24 14:43 CHEMISTRY Potassium 4.1 mmol/L (3.5-5.1) 05/24/24 14:43 Sodium 137 mmol/L (136-145) 05/24/24 14:43 Magnesium 2.3 mg/dL (1.6-2.6) 06/27/23 03:15 Phosphorus 4.1 mg/dL (2.5-4.9) 06/27/23 03:15 BUN 21 mg/dL (7-18) H 05/24/24 14:43 Creatinine 1.13 mg/dL (0.55-1.02) H 05/24/24 14:43 Glucose 115 mg/dL (74-106) H 05/24/24 14:43 POC Glucose 110 mg/dL (74-106) H 04/06/24 09:51 TSH 3.21 uIU/mL (0.358-3.74) 04/11/24 15:23 COAG PT 16.9 SECONDS (11.7-14.9) H 06/25/23 20:20 Pre-Assessment Diagnosis/Proposed Procedure Planned Operative Procedure(s): CYSTO BILAT URETEROSCOPY WITH LASER LITHOTRIPSY BILAT STENT CHANGE WITH STONE BASKET EXTRACTION Anesthesia History Anesthesia History - personal service representative: Anesthesia History - personal service representative Hx Hospitalization Yes: 05/2023 PNEUMONIA, 05/18/24 13:15 CDIFF, MRSA, UTI SEPSIS, Any Problems With Anesthesia Yes: LOOPY FOR LONG TIME 5 05/18/24 13:15 ANESTHESIA WAS GREAT Cholinesterase deficiency No 05/18/24 13:15 You/Your Family Experience No 05/18/24 13:15 fever (hyperthermia) with Relationship Recent Exposure to Contagious No 04/06/24 09:47 Disease Does patient have nerve No 05/18/24 13:15 stimulator Patient instructed to have device shut off --Does patient have Pacemaker or ICD? When Was Last Pacemaker Check QUESTION #4 FULL TEXT: You/Your Family Experience fever (hyperthermia) with Anesthesia Last Oral Intake Last Oral intake: Last Oral Intake NPO since Meds taken in AM with sips of water? Meds patient instructed to take am of surgery PONV PONV - personal service representative: PONV - personal service representative Female Yes 05/18/24 13:15 HX of Motion Sickness No 05/18/24 13:15 HX of N/V After Surgery No 05/18/24 13:15 Non-Smoker Yes 05/18/24 13:15 Duration of Surgery greater Yes 05/18/24 13:15 than 60 minutes Number of Risk Factors 3 05/18/24 13:15 PONV Score Moderate Risk 05/18/24 13:15 Height & Weight Height & Weight: Anesthesia: Height & Weight Height 5 ft 2 in 04/06/24 09:47 Respiratory Assessment Respiratory Assessment - personal service representative: Respiratory Tract Infection Hx - personal service representative Hx Respiratory Tract Infection No 05/18/24 13:15 STOP Sleep Apnea STOP Sleep Apnea - personal service representative: STOP Sleep Apnea - personal service representative Hx Hypertension No 05/18/24 13:15 Hx Sleep Apnea Yes 05/18/24 13:15 CPAP Yes: NONCOMPLIANT 05/18/24 13:15 BIPAP No 05/18/24 13:15 Do you snore loudly (louder than talking or can be heard Do you often feel tired/ fatigued/ sleepy during daytime? Has anyone observed you stop breathing during sleep? STOP Results Positive 05/18/24 13:15 QUESTION #5 FULL TEXT : Do you snore loudly (louder than talking or can be heard through closed doors)? Tobacco Use History Tobacco Use History - personal service representative: Tobacco Use History - personal service representative Tobacco Use Smoking Status Never smoker 05/18/24 13:15 Hx Tobacco Use No 05/18/24 13:15 Years Smoking Packs Smoked per Day Smoking Cessation Date was within the last 15 years Hx Smoking Cessation Date Hx Smoking Cessation Counseling Hematologic Medial History Hematologic Hx - personal service representative: Hematologic Medical Hx - record label intern Hx of Blood Transfusion No 05/18/24 13:15 Hx of Transfusion in last 3 No 05/18/24 13:15 Months Date of Last Transfusion (if within last 3 months) Ever experience any problems No 05/18/24 13:15 with transfusion(s)? Specify any problems Hx of Preganancy in last 3 No 05/18/24 13:15 Months Nurse Filling Out Transfusion DSCHRIBER 05/18/24 13:15 & Questions: Date: 05/18/24 05/18/24 13:15 Time: 13:16 05/18/24 13:15 Patient unable to answer at this time (ie. confused, unrespo /Reproduction History /Reproductive History - personal service representative: /Reproductive Hx- personal service representative Hx Now No 05/18/24 13:15 Gestational Age (in weeks): EDC: Hx Hx Para Hx Section SAB No 05/18/24 13:15 Active Medications Active Medications: Current Medications Generic Name Dose Route Start Last Admin Trade Name Freq PRN Reason Stop Dose Admin Ciprofloxacin 400 mg in 200 mls @ 200 mls/hr 06/01/24 08:50 Cipro IV 06/01/24 09:49 PREOP ONE Lactated Ringer's 1,000 mls @ 15 mls/hr 06/01/24 07:30 IV .Q48H BARB PFSH Medical History BiPAP (biphasic positive airway pressure) dependence History of diverticulitis Restless legs MRSA infection Wears glasses Post-menopausal Alcohol use Thyroid disease Arthritis High cholesterol Back pain Injury of head and neck Non-smoker Shortness of breath on exertion History of pain when walking History of echocardiogram Sinus tachycardia by electrocardiogram Anemia Thrombocytopenia Depression Anxiety Osteoarthritis Kidney stones Asthma Hypertension Diabetes Fibromyalgia Foot arch pain COVID-19 Home Medications ?Medication ?Instructions ?Recorded ?Last Taken ?Type fluticasone propionate 50 2 spray NASAL DAILY allergies 12/07/16 11/24/23 History mcg/actuation nasal spray,suspension citalopram 20 mg tablet 20 mg PO QHS DEPRESSION 04/26/21 11/24/23 History levothyroxine 25 mcg tablet 25 mcg PO DAILY thyroid 04/29/21 04/06/24 07:00 History lovastatin 40 mg tablet 40 mg PO QHS cholesterol 04/29/21 11/24/23 History pioglitazone 30 mg tablet 30 mg PO DAILY DM 06/25/23 11/24/23 History ropinirole 2 mg tablet 2 mg PO QHS RLS 06/25/23 11/24/23 History potassium chloride 20 mEq 20 meq PO DAILYCM 30 days #30 tabs 07/14/23 11/24/23 Rx tablet,extended release(part/cryst) (Klor-Con M) ascorbic acid (vitamin C) 500 mg 500 mg PO DAILY 08/02/23 11/24/23 History tablet (C-500) coenzyme Q10 100 mg capsule (Co 50 mg PO DAILY 08/02/23 11/24/23 History Q-10) glucosamine 375 en-fzmlniqjz-mek 3 tab PO DAILY 08/02/23 11/24/23 History no1 500 mg-C 15 mg-gianni 0.5 mg tablet (Ietsmbynkwt-Oiuvrfpwgrp-YNI Complex) ibuprofen 200 mg tablet (Advil) 200 mg PO PRN PAIN 08/02/23 Unknown History metformin 500 mg tablet 500 mg PO BID 08/02/23 11/24/23 History sour waldron extract 1,000 mg 1,000 mg PO DAILY 08/02/23 11/24/23 History capsule (Tart Waldron Extract) Lactobacillus acidophilus and 1 cap PO DAILY 11/03/23 11/24/23 History rhamnosus 15 billion cell capsule (Probiotic) cranberry 400 mg capsule 400 mg PO DAILY 11/03/23 11/24/23 History lutein 20 mg capsule 20 mg PO DAILY 11/23/23 Unknown History vitamin B complex 1 tab PO DAILY 11/23/23 11/24/23 History budesonide 0.5 mg/2 mL suspension 0.5 mg inhalation Q12H PRN PRN 03/23/24 Unknown History for nebulization breathing oxycodone-acetaminophen 5 mg-325 1 tab PO Q8H PRN pain 3 days #10 04/06/24 Unknown Rx mg tablet (Percocet) tabs phenazopyridine 100 mg tablet 100 mg PO TID #30 TABLETS 04/06/24 Unknown Rx finerenone 10 mg tablet (Kerendia) 10 mg PO DAILY 05/18/24 Unknown History Allergy/AdvReac Type Severity Reaction Status Date / Time cephalexin monohydrate (From Allergy Swelling Verified 05/18/24 13:11 Keflex) ibuprofen Allergy Swelling Verified 05/18/24 13:11 oxaprozin (From Daypro) Allergy Swelling Verified 05/18/24 13:11 tramadol HCl (From Ultram) Allergy Swelling Verified 05/18/24 13:11 celecoxib (From Celebrex) AdvReac DIZZY AND Verified 05/18/24 13:11 HURTS AROUND MY LIVER Family History Other Diabetes Hypertension Surgical History Hx of bilateral cataract extraction History of cystoscopy Hx of umbilical hernia repair History of carpal tunnel surgery of left wrist Hx of tonsillectomy Hx of colonoscopy History of ureter stent Social History household members: children housing: house Smoking Status: Never smoker alcohol intake: never substance use type: does not use Review of Systems (Anesthesia) ROS Narrative System reviewed and no additional complaints, except as documented.
[2024-06-01 07:57] LABS: Hematocrit 32.6 % (37-47); Mean Corp Hgb Conc 30.7 g/dL (32-36); Mean Corpuscular Hgb 29.4 pg (27.0-32.0); Mean Corpuscular Volume 95.9 fL (81-99); Mean Platelet Vol. 9.3 fl (6.2-12.0); Platelet Count 232 K/mm3 (150-450); RBC Distribution Width CV 14.9 % (11.6-14.6); RBC Distribution Width SD 52.2 fl (35.1-43.9); White Blood Count 8.7 K/mm3 (4.4-11.0)
[2024-06-01] MEDS: Ciprofloxacin 400 MG/200 ML BAG 200 MG IV (08:01)
[2024-06-01] MEDS: Lactated Ringers 1,000 ML 15 ML IV (08:01)
[2024-06-01 08:12] LABS: Anion Gap 7 (5-15); BUN 30 mg/dL (7-18); BUN/Creat Ratio 19.6 RATIO (10-20); Calcium,Total 9.8 mg/dL (8.5-10.1); Chloride 106 mmol/L (98-107); Creatinine, Serum 1.53 mg/dL (0.55-1.02); EST Glomerular Filtration Rate 35 mL/min (>60); Est Glom Filt Rate - Afr Amer 43 mL/min (>60); Estimated Creatinine Clearance 38.15 ml/min; Glucose 117 mg/dL (74-106); Potassium 4.6 mmol/L (3.5-5.1); Sodium Level 137 mmol/L (136-145)
[2024-06-01] MEDS: Ipratropium/Albuterol Sulfate 3 ML AMPUL.NEB INHALATION (08:31)
--- NOTE | 2024-06-01 08:50 | CALC_PTH ---
PATIENT: EDUAR GOMEZ [place] [facility] [id number] AGE/SX: 74/F ROOM: RE06/01/[address]: Dr. Marie Caldera MD : 1950 BED: DIS: 06/01/2024 SPEC #: [id number] RECD: 06/01/24 12:52 STATUS: SHYANNE STUBBS #: [id number] HIEN: 06/01/24 08:[address]: Marie Caldera DEPT: SURGICAL PATHOLOGY RECD BY: Pushpa Roldan ENTERED: 06/01/24 13:41 SP TYPE: Calculi OTHR DR: Dr. Corby Heller MD Tissues: CALCULI Procedures: Surgery Specimen Level I HEADER OPERATION: Bilateral ureteroscopy, laser lithotripsy, ureteral stent PRE-OP DIAGNOSIS: Bilateral renal calculus TISSUE SUBMITTED: Renal calculi GROSS DIAGNOSIS Fragments of stone, clinically renal calculi (gross only). KURTIS/ 06/01/2024 COMMENT The specimen is submitted in its entirety for chemical stone analysis. The results from this study will be reported separately. GROSS DESCRIPTION Received without fixative labeled with the patient's name and designated renal calculi. The specimen consists of multiple fragments of ptf-kwbhosny-utbad stone measuring 1.0 x 0.3 x 0.2 cm. A few of the stones are covered with blood. The entire specimen is submitted for stone analysis. KURTISAram 06/01/2024 CPT: 39023
[2024-06-01 08:57] LABS: Bedside Glucose 113 mg/dL (74-106)
--- NOTE | 2024-06-01 12:20 | PCM.POST.ANE ---
Anesthesia: Postop Eval I Current Vital Signs Temperature: 97.6 F Pulse Rate: 88 Blood Pressure: 146/78 Respiratory Rate: 18 Pulse Ox: 99 Oxygen Delivery Method: Simple Mask Oxygen Flow Rate (L/min): 6 Assessment Airway patent: Yes Spontaneous unlabored respirations: Yes Mental status: Awake and Calm nausea: No Vomiting: No Anesthesia Complication: No Fluid Hydration Crystalloid volume administer (ml): 1,300 Total IV fluid infused: 1,300 Progress Note Anesthesia document: Postop Eval 1 completed: Yes
--- NOTE | 2024-06-01 12:29 | EX.PCM.DISCH ---
Discharge Instructions Diet Discharge Diet: No restrictions Activity Discharge Activity: Return to Normal Activity Dressing / Incision Call your doctor if you observe: Fever of 101 or Higher, Inability to urinate and Inability to have a bowel movement Follow Up Care Please Follow Up With: Marie Caldera MD When: The office will call for follow up instructions. Test Results: Test results from this visit will be discussed in further detail at your follow-up appointment, if applicable. Discharge Plan Admission Attending Provider: Marie Caldera Primary Care Provider: Corby Heller Chi Instructions Print Language: Cameroonian Discharge Orders/Prescriptions Prescriptions: New oxycodone-acetaminophen [Percocet] 5-325 mg tablet 1 tab PO Q8H PRN (Reason: pain) 3 Days Qty: 10 0RF phenazopyridine 100 mg tablet 100 mg PO TID Qty: 30 0RF Continued fluticasone propionate 1 SPRAY spray,suspension 2 spray NASAL DAILY citalopram 20 mg tablet 20 mg PO QHS Patient Comments: TAKE 1/2 (ONE-HALF) OF A TABLET DAILY FOR 7 DAYS then TAKE 1 TABLET DAILY lovastatin 40 mg tablet 40 mg PO QHS Patient Comments: TAKE 1 TABLET DAILY AT BEDTIME levothyroxine 25 mcg tablet 25 mcg PO DAILY Patient Comments: TAKE 1 TABLET BY MOUTH ONCE DAILY pioglitazone 30 mg tablet 30 mg PO DAILY ropinirole 2 mg tablet 2 mg PO QHS metformin 500 mg tablet 500 mg PO BID Patient Comments: WITH EACH MEAL ascorbic acid (vitamin C) [C-500] 500 mg tablet 500 mg PO DAILY coenzyme Q10 [Co Q-10] 100 mg capsule 50 mg PO DAILY Gbjtkdmfcsm-Jtsoq-CWO Complex [id number] mg tablet 3 tab PO DAILY Tart Waldron Extract 1,000 mg capsule 1,000 mg PO DAILY ibuprofen [Advil] 200 mg tablet 200 mg PO PRN Probiotic 15 billion cell capsule 1 cap PO DAILY cranberry 400 mg capsule 400 mg PO DAILY Rx Instructions: administer with a meal Kerendia 10 mg tablet 10 mg PO DAILY lutein 20 mg capsule 20 mg PO DAILY Rx Instructions: give with meal/snack vitamin B complex Tablet 1 tab PO DAILY budesonide 0.5 mg/2 mL Suspension For Nebulization 0.5 mg inhalation Q12H PRN PRN (Reason: breathing) Referrals / Follow Up: Corby Heller Chi, MD [Primary Care Provider] - Disposition Disposition (needs filled in before D/C Order can be placed): Home, Self Care
--- NOTE | 2024-06-01 12:39 | OP.PCM_ITS ---
Report of Operation Date of Procedure: 06/01/24 Pre-Operative Diagnosis: Bilateral kidney stones Post-Operative Diagnosis: Same Surgery/Procedure Performed:: Cystoscopy, bilateral ureteroscopy, laser lithotripsy, stone basket extraction, ureteral stent changes Surgeon: Marie Caldera Type of Anesthesia: General Specimen's removed: Stone fragments Description of Procedure: The patient is a 74-year-old female with significant stone burden bilaterally who has had multiple procedures and now presents again for ureteroscopy and laser lithotripsy. Informed consent was obtained. She was taken to the operating room and placed on the operating room table. Anesthesia monitored the head, neck, airway, IV access and vital signs throughout the case. Once anesthesia was appropriately administered, she was placed into dorsolithotomy position was prepped and draped in usual sterile fashion. The cystoscope was inserted through the urethra under direct visualization into the urinary bladder. 2 separate 0.035 Glidewire's were passed alongside the right ureteral stent which was then removed. Resistance was felt within the ureter consistent with a stone. The semirigid ureteroscope was then utilized to cannulate the right distal ureter and it was advanced without difficulty until the area of the mid ureter where the stone was identified. Using a 200 ?m laser fiber, it was broken into pieces and removed with a stone basket. At this time the flexible ureteroscope was placed over a Glidewire and advanced into the renal pelvis. Laser lithotripsy was performed and an attempt was made at more basket retrieval. After a few small pieces were removed, and the ureter was clear, the second Glidewire was replaced. A ureteral access sheath was then placed under f luoroscopic visualization into the right ureter. Ureteroscopy was then performed through the sheath into the renal pelvis for stone fragments were basket retrieved. The access sheath then became dislodged. The flexible ureteroscope was once again advanced into the distal ureter and all the way up to the renal pelvis. The laser fiber was then used to blast to the stones into dust. When no further fragments were identified, the length of the ureter was visualized revealing no evidence of injury. The remaining safety wire was utilized for placement of a 6 [place]uran 22 cm JJ stent with good positioning in the renal pelvis as well as the urinary bladder. This process was then repeated on the patient's left side as well. 2 separate safety wires were placed. The flexible ureteroscope is advanced over one of the Glidewire's and access to the renal pelvis was obtained. There were several small stones and one larger one in the lower pole. All stones identified were lasered into dust. When no further stones were seen, the length of the ureter was directly visualized revealing no evidence of injury. The remaining safety wire was utilized with the cystoscope for placement of a 6 [place]uran 22 cm JJ stent. There was good curling in the renal pelvis as well as the urinary bladder. At this time the urinary bladder was emptied with more stone fragments obtained. She was then awakened and taken to the recovery room in good condition. There were no complications during this procedure. Grafts/Implants Used: 6 Honduran x 22 cm JJ stents Complications None Admit VTE Documentation VTE Present on Admission: Yes VTE Mechan Device Prophylaxis: SCD's VTE Pharm Prophylaxis ordered?: No Reason prophylaxis not ordered:: Treatment Not Indicated
--- NOTE | 2024-06-01 13:48 | POSTOPAN2_ITS ---
Anesthesia Postop Eval I Sum Postop Eval Completion status Anesthesia document: Postop Eval 1 completed: Yes Anesthesia Postop Eval I Summary Anesthesia Postop Eval I Summary: Anesthesia Postop Eval I: Assessment Summary Airway patent Yes 06/01/24 12:21 [email or web address] Spontaneous unlabored Yes 06/01/24 12:21 NEUROBIOLOGIST.SUNNY respirations Mental status Awake,Calm 06/01/24 12:21 [email or web address].[email or web address] nausea No 06/01/24 12:21 NEUROBIOLOGIST.YEMIOBY Vomiting No 06/01/24 12:21 NEUROBIOLOGIST.YEMIOBRowdy Anesthesia Postop Eval I: Fluid Summary Crystalloid volume administer 1,300 06/01/24 12:21 [email or web address].SKOBY (ml) Colloids volume administered ( ml) Blood Product volume administered (ml) Total IV fluid infused 1,300 06/01/24 12:21 NEUROBIOLOGIST.SUNNY Anesthesia Postop Eval I: Summary Notes Anesthesia Complication No 06/01/24 12:21 NEUROBIOLOGIST.SUNNY Anesthesia Complication Comment: Post-operative progress note Anesthesia: Postop Eval II Evaluation Mental status: Awake Pain Level: 0 nausea: No Vomiting: No
--- NOTE | 2024-06-01 13:48 | PCM.POSTANE2 ---
Anesthesia Postop Eval I Sum Postop Eval Completion status Anesthesia document: Postop Eval 1 completed: Yes Anesthesia Postop Eval I Summary Anesthesia Postop Eval I Summary: Anesthesia Postop Eval I: Assessment Summary Airway patent Yes 06/01/24 12:21 PIPE PRODUCTION WORKER.[email or web address] Spontaneous unlabored Yes 06/01/24 12:21 PIPE PRODUCTION WORKER.SUNNY respirations Mental status Awake,Calm 06/01/24 12:21 PIPE PRODUCTION WORKER.[email or web address] nausea No 06/01/24 12:21 PIPE PRODUCTION WORKER.YEMIOBY Vomiting No 06/01/24 12:21 PIPE PRODUCTION WORKER.[email or web address] Anesthesia Postop Eval I: Fluid Summary Crystalloid volume administer 1,300 06/01/24 12:21 PIPE PRODUCTION WORKER.SKOBY (ml) Colloids volume administered ( ml) Blood Product volume administered (ml) Total IV fluid infused 1,300 06/01/24 12:21 PIPE PRODUCTION WORKER.SUNNY Anesthesia Postop Eval I: Summary Notes Anesthesia Complication No 06/01/24 12:21 PIPE PRODUCTION WORKER.SUNNY Anesthesia Complication Comment: Post-operative progress note Anesthesia: Postop Eval II Evaluation Mental status: Awake Pain Level: 0 nausea: No Vomiting: No
[2024-06-13 12:09] LABS: Ca Oxalate, Dihydrate 20 % (.); Ca Oxalate, Monohydrate 80 % (.); Size 4x3 mm (.); Source Kidney (.)
== END 2024-06-01 14:58 | disposition home or self-care (01) ==
LOC: SDC 07:13 → AC 07:14
PROVIDERS: Anesthesiology; PCP Family Medicine Geriatric Medicine; Referring Provider Urology; Visit Provider Urology
PROC: 0TJ98ZZ Inspection of Ureter, Via Natural or Artificial Opening Endoscopic (ICD-10-PCS; CPT 52352; principal; 2024-06-01 08:40)
DX: N20.2 Calculus of kidney with calculus of ureter (principal); E11.9 Type 2 diabetes mellitus without complications; Z87.19 Personal history of other diseases of the digestive system; D64.9 Anemia, unspecified; E78.00 Pure hypercholesterolemia, unspecified; J45.909 Unspecified asthma, uncomplicated; F32.9 Major depressive disorder, single episode, unspecified; G25.81 Restless legs syndrome; E03.9 Hypothyroidism, unspecified; N39.0 Urinary tract infection, site not specified; N32.81 Overactive bladder
CPT/HCPCS: 52356; 00918; 76000; 80048; 82360; 82962; 85027; 88300; 94640; J7120; C2625; J0744; J2405

== ENCOUNTER → 2024-06-22 | Outpatient (CLI) | payer MEDICARE, OTHER, SELFPAY ==
--- NOTE | 2024-06-22 14:17 | CT_ITS ---
STUDY: CT ABDOMEN AND PELVIS WITHOUT CONTRAST REASON FOR EXAM: Female, 74 years old. KIDNEY STONES RADIATION DOSAGE (If Supplied By Facility): CTDIvol = ( 22.68 ) mGy, DLP = ( 1094.81 ) mGycm TECHNIQUE: Transaxial images were obtained from the dome of the diaphragm to the symphysis pubis without oral contrast, and without intravenous contrast. Sagittal and coronal images were reconstructed. Individualized dose optimization techniques were used for this CT. COMPARISON: March 22, 2024 FINDINGS: The visualized lung bases are unremarkable. The visualized portions of the heart are within normal limits. Normal liver. Normal gallbladder and extrahepatic biliary system. Normal spleen. Normal pancreas. Normal bilateral adrenal glands. There are tiny nonobstructing renal calculi and bilateral ureterovesical stents . Normal visualized stomach. Normal small intestine. Diverticular disease of the descending and sigmoid colon without evidence for acute diverticulitis . No evidence for acute appendicitis. Mild atherosclerotic change of the aorta without evidence for aneurysm. Normal inferior vena cava. Normal retroperitoneum. Normal urinary bladder. Postop change status post anterior pelvic wall herniorrhaphy. Lumbar spine demonstrates mild degenerative change. CT/Abdomen/Pelvis without Cont IMPRESSION: Bilateral nephrolithiasis. No evidence for renal obstruction status post bilateral ureterovesical stent placement Diverticular disease of the colon without evidence for acute diverticulitis Electronically Signed: Luis Rodriguez MD at 19:33 EDT ,
== END | disposition home or self-care (01) ==
LOC: CT 14:11
PROVIDERS: PCP Family Medicine Geriatric Medicine; Referring Provider Urology; Visit Provider Urology
DX: N20.0 Calculus of kidney (principal)
CPT/HCPCS: 74176

== ENCOUNTER → 2024-06-28 | Outpatient (CLI) | payer MEDICARE, OTHER, SELFPAY | END | disposition home or self-care (01) | LOC: POLAB3 15:20 | PROVIDERS: PCP Family Medicine Geriatric Medicine; Visit Provider Family Medicine Geriatric Medicine | DX: R68.83 Chills (without fever) (principal) | CPT/HCPCS: 87631 ==

== ENCOUNTER → 2024-07-12 | Outpatient (CLI) | payer MEDICARE, OTHER, SELFPAY ==
[2024-07-12 14:47] LABS: Absolute Lymphocyte Count 2.03 X10^3/uL (0.83-4.51); Absolute Neutrophil Count 6.5 X10^3/uL (2.0-7.7); Basophil# 0.04 X10^3/uL; Basophil% 0.4 % (0-1); Eosinophil# 0.26 X10^3/uL; Eosinophils% 2.7 % (0-5); Hematocrit 34.5 % (37-47); Hemoglobin 10.6 g/dL (12.0-15.0); Lymphocyte # 2.03 X10^3/ul (0.83-4.51); Mean Corp Hgb Conc 30.7 g/dL (32-36); Mean Corpuscular Hgb 29.3 pg (27.0-32.0); Mean Corpuscular Volume 95.3 fL (81-99); Mean Platelet Vol. 9.7 fl (6.2-12.0); Monocyte# 0.78 X10^3/uL; Monocyte% 8.1 % (0-10); NRBC Flagged by Analyzer 0 % (0-5); Neutrophil # 6.52 X10^3/uL (2.7-7.7); Neutrophil % 67.3 % (47-70); Platelet Count 196 K/mm3 (150-450); RBC Distribution Width CV 14.7 % (11.6-14.6); RBC Distribution Width SD 51.9 fl (35.1-43.9); Red Blood Count 3.62 M/mm3 (4.2-5.4); White Blood Count 9.7 K/mm3 (4.4-11.0)
[2024-07-12 15:21] LABS: ALB/GLOB Ratio 0.7 RATIO (0.9-2.4); AST(SGOT) 12 U/L (15-37); Alanine Aminotransfer ALT/SGPT 11 U/L (13-56); Albumin, Serum 3.1 g/dL (3.2-5.0); Alkaline Phosphatase 74 U/L (45-117); Anion Gap 7 (5-15); BUN 27 mg/dL (7-18); BUN/Creat Ratio 20.3 RATIO (10-20); Calcium,Total 9.2 mg/dL (8.5-10.1); Chloride 107 mmol/L (98-107); Creatinine, Serum 1.33 mg/dL (0.55-1.02); EST Glomerular Filtration Rate 41 mL/min (>60); Est Glom Filt Rate - Afr Amer 50 mL/min (>60); Globulin 4.5 g/dL (2.2-4.2); Glucose 113 mg/dL (74-106); Protein, Total 7.6 g/dL (6.4-8.2); Sodium Level 139 mmol/L (136-145)
== END | disposition home or self-care (01) ==
LOC: POLAB3 14:32
PROVIDERS: PCP Family Medicine Geriatric Medicine; Visit Provider Family Medicine Geriatric Medicine
DX: E11.65 Type 2 diabetes mellitus with hyperglycemia (principal); I10 Essential (primary) hypertension; E55.9 Vitamin D deficiency, unspecified; N39.0 Urinary tract infection, site not specified
CPT/HCPCS: 36415; 80053; 82306; 84443; 85025; 87077; 87086; 87088; 87186

== ENCOUNTER → 2024-08-25 | Outpatient (CLI) | payer MEDICARE, OTHER, SELFPAY ==
--- NOTE | 2024-08-25 13:04 | CT_ITS ---
STUDY: CT ABDOMEN AND PELVIS WITHOUT CONTRAST REASON FOR EXAM: Female, 74 years old. PAIN (B) KIDNEY STONE RADIATION DOSAGE (If Supplied By Facility): CTDIvol = ( 29.18 ) mGy, DLP = ( 1582.11 ) mGycm TECHNIQUE: Transaxial images were obtained from the dome of the diaphragm to the symphysis pubis without oral contrast, and without intravenous contrast. Sagittal and coronal images were reconstructed. Individualized dose optimization techniques were used for this CT. The protocol utilizes one or more of the following dose reduction techniques: automated exposure control, adjustment of mA and/or kV according to patient size,and/or use of iterative reconstruction technique. COMPARISON: CT abdomen and pelvis June 22, 2024. FINDINGS: The visualized lung bases are unremarkable. Cardiomegaly and calcific coronary artery disease. Normal liver. Normal gallbladder and extrahepatic biliary system. Normal spleen. Normal pancreas. Normal bilateral adrenal glands. Bilateral nonobstructing nephroliths measuring up to several millimeters on the right. Small hiatal hernia. Normal small intestine. Colonic diverticulosis. Increased stool throughout the colon. Appendix not identified. Calcified plaque along the aorta and its branches. Normal inferior vena cava. Normal retroperitoneum. Normal urinary bladder. Uterus normal. Anterior abdominal wall mesh. Fat-containing umbilical hernia. Normal osseous structures. CT/Abdomen/Pelvis without Cont IMPRESSION: Bilateral nonobstructing nephroliths. Increased stool. Electronically Signed: Vladimir Barbosa MD at 20:00 EST ,
== END | disposition home or self-care (01) ==
LOC: CT 13:03
PROVIDERS: PCP Family Medicine Geriatric Medicine; Referring Provider Urology; Visit Provider Urology
DX: N20.1 Calculus of ureter (principal)
CPT/HCPCS: 74176

== ENCOUNTER → 2024-09-11 | Outpatient (CLI) | payer MEDICARE, OTHER, SELFPAY ==
--- NOTE | 2024-09-11 11:23 | RAD_ITS ---
STUDY: X-RAY - ABDOMEN/PELVIS REASON FOR EXAM: Female, 74 years old. RENAL STONES TECHNIQUE: Single AP view of the abdomen / pelvis. COMPARISON: None. FINDINGS: Normal visualized lung bases. There is an unremarkable bowel gas pattern. The visualized liver, spleen and kidneys are grossly normal in size and morphology. Normal soft tissue structures. Normal visualized osseous structures. RAD/Abdomen Single View IMPRESSION: Normal x-ray examination of the abdomen and pelvis. Electronically Signed: Tahir Ferguson MD at 11:53 EST ,
== END | disposition home or self-care (01) ==
LOC: MTRAD 11:22
PROVIDERS: PCP Family Medicine Geriatric Medicine; Referring Provider Urology; Visit Provider Urology
DX: N20.0 Calculus of kidney (principal)
CPT/HCPCS: 74018

== ENCOUNTER → 2024-11-23 | Outpatient (CLI) | payer MEDICARE, OTHER, SELFPAY ==
[2024-11-23 15:31] LABS: Absolute Lymphocyte Count 2.13 X10^3/uL (0.83-4.51); Absolute Neutrophil Count 5.3 X10^3/uL (2.0-7.7); Basophil# 0.05 X10^3/uL; Basophil% 0.6 % (0-1); Eosinophil# 0.21 X10^3/uL; Eosinophils% 2.5 % (0-5); Hematocrit 33.7 % (37-47); Hemoglobin 10.5 g/dL (12.0-15.0); Lymphocyte # 2.13 X10^3/ul (0.83-4.51); Lymphocyte % 25.3 % (19-41); Mean Corp Hgb Conc 31.2 g/dL (32-36); Mean Corpuscular Hgb 30.3 pg (27.0-32.0); Mean Corpuscular Volume 97.1 fL (81-99); Mean Platelet Vol. 9.5 fl (6.2-12.0); Monocyte# 0.68 X10^3/uL; Monocyte% 8.1 % (0-10); NRBC Flagged by Analyzer 0 % (0-5); Neutrophil # 5.29 X10^3/uL (2.7-7.7); Neutrophil % 62.9 % (47-70); Platelet Count 231 K/mm3 (150-450); RBC Distribution Width CV 14.6 % (11.6-14.6); RBC Distribution Width SD 51.7 fl (35.1-43.9); Red Blood Count 3.47 M/mm3 (4.2-5.4); White Blood Count 8.4 K/mm3 (4.4-11.0)
[2024-11-23 16:30] LABS: Vitamin D,25 Hydroxy 40.8 ng/mL (30-100)
[2024-11-23 16:31] LABS: ALB/GLOB Ratio 0.9 RATIO (0.9-2.4); AST(SGOT) 32 U/L (<=31); Alanine Aminotransfer ALT/SGPT 12 U/L (<=34); Albumin, Serum 3.7 g/dL (3.4-4.8); Alkaline Phosphatase 77 U/L (35-104); Anion Gap 12 (5-15); BUN 39 mg/dL (4-19); BUN/Creat Ratio 28.7 RATIO (10-20); Calcium 9.7 mg/dL (7.6-11.0); Carbon Dioxide 23.9 mmol/L (22.0-29.0); Chloride 101 mmol/L (96-108); Creatinine, Serum 1.4 mg/dL (0.6-1.0); EST Glomerular Filtration Rate 41 (>60); Glucose 166 mg/dL (70-99); Potassium 5.3 mmol/L (3.3-5.1); Protein, Total 7.7 g/dL (5.9-8.4); Sodium Level 137 mmol/L (133-145); Total Bilirubin 0.25 mg/dL (0.00-1.30)
== END | disposition home or self-care (01) ==
LOC: POLAB3 15:13
PROVIDERS: PCP Family Medicine Geriatric Medicine; Visit Provider Family Medicine Geriatric Medicine
DX: E11.65 Type 2 diabetes mellitus with hyperglycemia (principal); I10 Essential (primary) hypertension; E55.9 Vitamin D deficiency, unspecified; N39.0 Urinary tract infection, site not specified
CPT/HCPCS: 36415; 80053; 82306; 84443; 85025; 87077; 87086; 87088; 87186

== ENCOUNTER → 2024-12-18 | Outpatient (CLI) | payer MEDICARE, OTHER, SELFPAY ==
--- NOTE | 2024-12-18 16:45 | RAD_ITS ---
EXAM: XR Chest, 2 Views CLINICAL INDICATION: SOB TECHNIQUE: Frontal and lateral views of the chest. COMPARISON: No relevant prior studies available. FINDINGS: LUNGS AND PLEURAL SPACES: Unremarkable. No consolidation. No pneumothorax. HEART: Unremarkable. No cardiomegaly. MEDIASTINUM: Unremarkable. Normal mediastinal contour. BONES/JOINTS: Unremarkable. No acute fracture. RAD/Chest PA and Lateral IMPRESSION: No acute cardiopulmonary process. Reading [facility]
[2024-12-18 17:08] LABS: Absolute Lymphocyte Count 2.07 X10^3/uL (0.83-4.51); Absolute Neutrophil Count 6.1 X10^3/uL (2.0-7.7); Basophil# 0.04 X10^3/uL; Basophil% 0.4 % (0-1); Eosinophil# 0.17 X10^3/uL; Eosinophils% 1.9 % (0-5); Hematocrit 33.5 % (37-47); Hemoglobin 10.8 g/dL (12.0-15.0); Lymphocyte # 2.07 X10^3/ul (0.83-4.51); Mean Corp Hgb Conc 32.2 g/dL (32-36); Mean Corpuscular Hgb 30.8 pg (27.0-32.0); Mean Corpuscular Volume 95.4 fL (81-99); Mean Platelet Vol. 9.3 fl (6.2-12.0); Monocyte# 0.54 X10^3/uL; NRBC Flagged by Analyzer 0 % (0-5); Neutrophil # 6.12 X10^3/uL (2.7-7.7); Neutrophil % 67.9 % (47-70); Platelet Count 253 K/mm3 (150-450); RBC Distribution Width CV 14.4 % (11.6-14.6); Red Blood Count 3.51 M/mm3 (4.2-5.4)
[2024-12-18 23:49] LABS: AST(SGOT) 21 U/L (<=31); Alanine Aminotransfer ALT/SGPT 10 U/L (<=34); Alkaline Phosphatase 74 U/L (35-104); Anion Gap 15 (5-15); BUN 34 mg/dL (4-19); BUN/Creat Ratio 34.2 RATIO (10-20); Calcium,Total 9.8 mg/dL (7.6-11.0); Carbon Dioxide 21.7 mmol/L (21.0-32.0); Chloride 102 mmol/L (98-108); EST Glomerular Filtration Rate 59 (>60); Globulin 3.9 g/dL (2.2-4.2); Glucose 176 mg/dL (70-99); Potassium 4.5 mmol/L (3.3-5.1); Protein, Total 7.9 g/dL (5.9-8.4); Sodium Level 138 mmol/L (133-145); Total Bilirubin 0.36 mg/dL (0.00-1.30)
== END | disposition home or self-care (01) ==
LOC: POLAB3 16:20 → RAD 16:33
PROVIDERS: PCP Family Medicine Geriatric Medicine; Referring Provider Family Medicine Geriatric Medicine; Visit Provider Family Medicine Geriatric Medicine
DX: N18.32 Chronic kidney disease, stage 3b (principal); N39.0 Urinary tract infection, site not specified; R06.02 Shortness of breath; R68.83 Chills (without fever)
CPT/HCPCS: 36415; 71046; 80053; 85025; 87077; 87086; 87088; 87186; 87631

== ENCOUNTER 2024-12-22 11:41 | Outpatient (CLI) | payer MEDICARE, OTHER, SELFPAY ==
[2024-12-22 12:34] VITALS: BP 140/69; PULSE 70; RESP 16; TEMP 36; O2SAT 97; BMI 47.3
[2024-12-22] MEDS: Ertapenem Sod 1 GM/10 ML Vial IM (12:36)
== END 2024-12-22 23:59 | disposition home or self-care (01) ==
LOC: MEDOUTP 11:44
PROVIDERS: PCP Family Medicine Geriatric Medicine; Referring Provider Internal Medicine Infectious Disease; Visit Provider Internal Medicine Infectious Disease
DX: N39.0 Urinary tract infection, site not specified (principal); Z16.12 Extended spectrum beta lactamase (ESBL) resistance
CPT/HCPCS: 96372

== ENCOUNTER 2024-12-23 12:14 | Emergency (ER) | payer MEDICARE, OTHER, SELFPAY ==
[2024-12-23 12:15] VITALS: BP 124/87; PULSE 77; RESP 18; TEMP 36.8; O2SAT 98; BMI 47.3
--- NOTE | 2024-12-23 12:50 | EDS_ITS ---
HPI <ADAM Malone - Last Filed: 12/23/24 12:58> History of Present Illness Chief Complaint: General Illness Narrative Narrative: Patient is a 74-year-old female with history of obesity, diabetes hypertension asthma depression who is currently being treated with IM ertapenem daily for 7 days for ESBL Klebsiella, as well as E. coli urinary tract infection. Patient is under the care of infectious disease. Patient states she had her first injection yesterday. Today due to some personal issues she was late and could not receive her injection. Patient states that she was told to come to the ER to get her injection. She states that after the injection she like to be discharged. [facility] <ADAM Malone - Last Filed: 12/23/24 12:58> [facility] Medical History (Updated 12/23/24 @ 12:58 by ADAM Malone) History of ESBL Klebsiella pneumoniae infection BiPAP (biphasic positive airway pressure) dependence History of diverticulitis Restless legs MRSA infection Wears glasses Post-menopausal Alcohol use Thyroid disease Arthritis High cholesterol Back pain Injury of head and neck Non-smoker Shortness of breath on exertion History of pain when walking History of echocardiogram Sinus tachycardia by electrocardiogram Anemia Thrombocytopenia Depression Anxiety Osteoarthritis Kidney stones Asthma Hypertension Diabetes Fibromyalgia Foot arch pain COVID-19 Home Medications ?Medication ?Instructions ?Recorded ?Last Taken ?Type fluticasone propionate 50 2 spray NASAL DAILY allergie s 12/07/16 05/31/24 History mcg/actuation nasal spray,suspension citalopram 20 mg tablet 20 mg PO QHS DEPRESSION 03/2905/31/24 History levothyroxine 25 mcg tablet 25 mcg PO DAILY thyroid 04/06/24 07:00 History lovastatin 40 mg tablet 40 mg PO QHS cholesterol 12/1505/31/24 History ropinirole 2 mg tablet 2 mg PO QHS RLS 06/25/2301/18 History glucosamine 375 zq-vrxqwnghd-npa 3 tab PO DAILY 05/31/24 History no1 500 mg-C 15 mg-gianni 0.5 mg tablet (Wqplafpdhvd-Oynjousxlff-NPB Complex) metformin 500 mg tablet 500 mg PO BID 08/02/2305/31 History cranberry fruit 400 mg capsule 400 mg PO DAILY 4 05/31/24 History vitamin B complex 1 tab PO DAILY 11/23/2301/18 History
--- NOTE | 2024-12-23 12:50 | EX.ED.DYSGE1 ---
HPI <ADMA Malone - Last Filed: 12/23/24 12:58> History of Present Illness Chief Complaint: General Illness Narrative Narrative: Patient is a 74-year-old female with history of obesity, diabetes hypertension asthma depression who is currently being treated with IM ertapenem daily for 7 days for ESBL Klebsiella, as well as E. coli urinary tract infection. Patient is under the care of infectious disease. Patient states she had her first injection yesterday. Today due to some personal issues she was late and could not receive her injection. Patient states that she was told to come to the ER to get her injection. She states that after the injection she like to be discharged. [facility] <ADAM Malone - Last Filed: 12/23/24 12:58> [facility] Medical History (Updated 12/23/24 @ 12:58 by ADAM Malone) History of ESBL Klebsiella pneumoniae infection BiPAP (biphasic positive airway pressure) dependence History of diverticulitis Restless legs MRSA infection Wears glasses Post-menopausal Alcohol use Thyroid disease Arthritis High cholesterol Back pain Injury of head and neck Non-smoker Shortness of breath on exertion History of pain when walking History of echocardiogram Sinus tachycardia by electrocardiogram Anemia Thrombocytopenia Depression Anxiety Osteoarthritis Kidney stones Asthma Hypertension Diabetes Fibromyalgia Foot arch pain COVID-19 Home Medications ?Medication ?Instructions ?Recorded ?Last Taken ?Type fluticasone propionate 50 2 spray NASAL DAILY allergies 12/07/16 05/31/24 History mcg/actuation nasal spray,suspension citalopram 20 mg tablet 20 mg PO QHS DEPRESSION 04/26/21 05/31/24 History levothyroxine 25 mcg tablet 25 mcg PO DAILY thyroid 04/29/21 04/06/24 07:00 History lovastatin 40 mg tablet 40 mg PO QHS cholesterol 04/29/21 05/31/24 History ropinirole 2 mg tablet 2 mg PO QHS RLS 06/25/23 05/31/24 History glucosamine 375 wp-etyunkuvg-iec 3 tab PO DAILY 08/02/23 05/31/24 History no1 500 mg-C 15 mg-gianni 0.5 mg tablet (Wbcppoegqpj-Njamoixjfmm-ANQ Complex) metformin 500 mg tablet 500 mg PO BID 08/02/23 05/31/24 History cranberry fruit 400 mg capsule 400 mg PO DAILY 11/03/23 05/31/24 History vitamin B complex 1 tab PO DAILY 11/23/23 05/31/24 History budesonide 0.5 mg/2 mL suspension 0.5 mg inhalation Q12H PRN PRN 03/23/24 Unknown History for nebulization breathing finerenone 10 mg tablet (Kerendia) 10 mg PO DAILY 05/18/24 05/31/24 History oxycodone-acetaminophen 5 mg-325 1 tab PO Q8H PRN pain 3 days #10 06/01/24 Unknown Rx mg tablet (Percocet) tabs ipratropium bromide 42 mcg (0.06 2 spray intranasal DAILY 06/19/24 Unknown History %) nasal spray levalbuterol tartrate 45 1 puff inhalation Q4H PRN 06/19/24 Unknown History mcg/actuation aerosol inhaler shortness of breath polysaccharide iron complex 150 mg 150 mg PO QDAY 06/19/24 Unknown History iron capsule (Ferrex) vibegron 75 mg tablet (Gemtesa) 75 mg PO QDAY 08/11/24 Unknown History ascorbate calcium (vitamin C) 500 1 g PO DAILY 12/22/24 Unknown History mg tablet coenzyme Q10 100 mg capsule 50 mg PO DAILY 12/22/24 Unknown History (CoQ-10) echinacea 500 mg capsule 1,000 mg PO DAILY 12/22/24 Unknown History melatonin 10 mg capsule 10 mg PO QHS 12/22/24 Unknown History Allergy/AdvReac Type Severity Reaction Status Date / Time cephalexin monohydrate (From Allergy Swelling Verified 12/23/24 12:15 Keflex) ibuprofen Allergy Swelling Verified 12/23/24 12:15 oxaprozin (From Daypro) Allergy Swelling Verified 12/23/24 12:15 tramadol HCl (From Ultram) Allergy Swelling Verified 12/23/24 12:15 albuterol AdvReac Intermediate Other Verified 12/23/24 12:15 celecoxib (From Celebrex) AdvReac DIZZY AND Verified 12/23/24 12:15 HURTS AROUND MY LIVER Family History Other Diabetes Hypertension Surgical History Hx of bilateral cataract extraction History of cystoscopy Hx of umbilical hernia repair History of carpal tunnel surgery of left wrist Hx of tonsillectomy Hx of colonoscopy History of ureter stent Social History household members: children housing: house Smoking Status: Never smoker alcohol intake: never substance use type: does not use ROS <ADAM Malone - Last Filed: 12/23/24 12:58> ROS ED ROS Narrative Constitutional: Negative for fever, chills, weight loss, weakness Eyes: Negative for vision loss, vision change, double vision ENT: Negative for any sore throat, ear pain, congestion Cardiovascular: Negative for any chest pain, tightness, palpitations Respiratory: Negative for any cough, sputum production, hemoptysis, dyspnea, dyspnea on exertion, orthopnea Gastrointestinal: Negative for any abdominal pain, nausea, vomiting, diarrhea, constipation, blood in stool, blood in vomit : Negative for any urinary frequency, dysuria, retention, blood in urine Muscle skeletal: Negative for any neck pain, back pain Neurological: Negative for any headache, syncope, dizziness Skin: Negative for any rashes, itching, abrasions, lacerations Psychiatric: Negative for any depression, anxiety, stress, suicidal ideation, homicidal ideation Hematologic: Negative for any excessive bruising, easy bleeding EXAM <ADAM Malone - Last Filed: 12/23/24 12:58> Physical Exam Narrative Exam Narrative: Vital signs reviewed. HEET: Head normocephalic atraumatic, TMs clear bilaterally. Posterior pharynx is clear, moist mucous membranes. Nares clear bilaterally. Neck: Supple with no lymphadenopathy or tenderness. No signs of meningismus. Cardiac: Regular rate and rhythm no murmurs gallops or rubs, equal peripheral pulses bilaterally. Respiratory: Lungs clear to auscultation bilaterally. No chest tenderness. Abdomen: Soft, nontender, nondistended. No abdominal bruit or pulsatile masses. No hepatosplenomegaly Extremities: No peripheral edema, no signs of gross trauma or deformity. Active full range of motion of all extremities. Neuro: Cranial nerves II through XII intact, no focal neurological deficits. Skin: Clean dry and intact with no rash, purpura, petechiae, vesicles or pustules. Backs/flank: No CVA tenderness, no midline spinal tenderness, no deformity. Psych: Normal mood and affect. No SI, HI or acute psychosis. Const Vital Signs: 12/23/24 12:15 Temperature 98.2 F Temperature Source Oral Pulse Rate 77 Respiratory Rate 18 Blood Pressure 124/87 H Blood Pressure Mean 99 Pulse Ox 98 Oxygen Delivery Method Room Air <Dr. Dom Epstein MD - Last Filed: 12/23/24 12:58> Physical Exam Const Vital Signs: 12/23/24 12:15 Temperature 98.2 F Temperature Source Oral Pulse Rate 77 Respiratory Rate 18 Blood Pressure 124/87 H Blood Pressure Mean 99 Pulse Ox 98 Oxygen Delivery Method Room Air MDM <ADAM Malone - Last Filed: 12/23/24 12:58> [facility] Treatment and Re-Evaluation :: Differential diagnosis includes however is not limited to: UTI, sepsis, medication noncompliance, failure outpatient therapy Patient appears generally well, vital signs are stable, patient is nontoxic-appearing. Presenting to the emergency department for a IM dose of ertapenem. Patient does have a standing order for this for the next 7 days. She just missed her appointment today. Patient will receive the 1 g ertapenem injection. I spoke with pharmacy, they are aware. Patient will talk with the charge nurse to ensure that she knows where to go for the next 5 days. She is happy with the plan of care, all questions answered, stable for discharge. <Dr. Dom Epstein MD - Last Filed: 12/23/24 12:58> [facility] Narrative Medical decision making narrative: I have personally performed a face to face assessment of the patient and have reviewed the TL Note. I performed a substantive portion of the visit including all aspects of the following. My melgoza findings include: History is 74-year-old female. Recently diagnosed with a UTI by her primary care physician and infectious disease. She is being set up for outpatient antibiotics for 7 straight days of injection. Today was late and was sent to the ER to have this obtained. Today. Denies any new complaints. Exam is [well-appearing 74-year-old female. Vital signs stable afebrile. Does not look septic or toxic. No distress. H EENT exam pupils round react light. Mytrex membranes. Neck nontender. Lungs clear. Heart regular rhythm rate about 75 no murmur. Chest wall ribs nontender. Abdomen soft nontender. Moving all 4 extremities. She has braces on both ankles. Nontender no edema. Neurologically she is awake alert no focal motor deficits.] Medical Decision Making [patient will receive her IM injection antibiotic and be discharged to home.] Other additions or changes: [None] History & Record Review Discussion w/independent historian: Patient Additional record(s) reviewed:: Prior inpatient record, Prior outpatient record and Prior labs Discharge Plan Triage Chief Complaint: General Illness ED Midlevel Provider: Jairo Green ED Provider: Dom Epstein Dx/Rx/DC Orders Clinical Impression: History of recurrent UTIs Instructions: UTIs Prescriptions: No Action polysaccharide iron complex [Ferrex 150] 150 mg iron capsule 150 mg PO QDAY ipratropium bromide 42 mcg (0.06 %) spray,non-aerosol 2 spray intranasal DAILY Patient Comments: [NO ORIGINAL SIG] levalbuterol tartrate 45 mcg/actuation HFA aerosol inhaler 1 puff inhalation Q4H PRN (Reason: shortness of breath) Gemtesa 75 mg tablet 75 mg PO QDAY fluticasone propionate 1 SPRAY spray,suspension 2 spray NASAL DAILY citalopram 20 mg tablet 20 mg PO QHS Patient Comments: TAKE 1/2 (ONE-HALF) OF A TABLET DAILY FOR 7 DAYS then TAKE 1 TABLET DAILY lovastatin 40 mg tablet 40 mg PO QHS Patient Comments: TAKE 1 TABLET DAILY AT BEDTIME levothyroxine 25 mcg tablet 25 mcg PO DAILY Patient Comments: TAKE 1 TABLET BY MOUTH ONCE DAILY ropinirole 2 mg tablet 2 mg PO QHS metformin 500 mg tablet 500 mg PO BID Patient Comments: WITH EACH MEAL Yycwawhxqva-Pcnub-BVU Complex [id number] mg tablet 3 tab PO DAILY cranberry fruit 400 mg capsule 400 mg PO DAILY Rx Instructions: administer with a meal Kerendia 10 mg tablet 10 mg PO DAILY oxycodone-acetaminophen [Percocet] 5-325 mg tablet 1 tab PO Q8H PRN (Reason: pain) 3 Days Qty: 10 0RF coenzyme Q10 [CoQ-10] 100 mg capsule 50 mg PO DAILY melatonin 10 mg capsule 10 mg PO QHS ascorbate calcium (vitamin C) 500 mg tablet 1 g PO DAILY echinacea 500 mg capsule 1,000 mg PO DAILY Rx Instructions: administer with meals vitamin B complex Tablet 1 tab PO DAILY budesonide 0.5 mg/2 mL Suspension For Nebulization 0.5 mg inhalation Q12H PRN PRN (Reason: breathing) Primary Care Provider: Corby Heller Chi Referrals: Corby Heller Chi, MD [Primary Care Provider] - Activity Restrictions/Additional Instructions: Please follow-up to the outpatient center to receive your IM injection of ertapenem 1 g. You have 5 more days on your standing order. Print Language: Samoan Disposition Disposition: Home, Self Care
[2024-12-23] MEDS: Ertapenem Sod 1 GM/10 ML Vial IM (13:32)
[2024-12-23 13:38] VITALS: BP 124/87; PULSE 77; RESP 18; TEMP 36.8; O2SAT 98
== END 2024-12-23 13:38 | disposition home or self-care (01) ==
LOC: ED 13:04
PROVIDERS: Emergency Provider Emergency Medicine; PCP Family Medicine Geriatric Medicine; Visit Provider Emergency Medicine
DX: N39.0 Urinary tract infection, site not specified (principal); E11.9 Type 2 diabetes mellitus without complications; E78.00 Pure hypercholesterolemia, unspecified; I10 Essential (primary) hypertension; J45.909 Unspecified asthma, uncomplicated; Z79.51 Long term (current) use of inhaled steroids; F32.A Depression, unspecified; G25.81 Restless legs syndrome; Z79.899 Other long term (current) drug therapy; Z79.84 Long term (current) use of oral hypoglycemic drugs; Z98.41 Cataract extraction status, right eye; Z98.42 Cataract extraction status, left eye
CPT/HCPCS: 96372; 99282

== ENCOUNTER 2024-12-24 15:13 | Outpatient (CLI) | payer MEDICARE, OTHER, SELFPAY ==
--- NOTE | 2024-12-24 14:19 | NURSING ---
patient no show for 12noon appointment for medication, attempted to call patient without success. Call placed to granddaughter whom lives with patient. able to make contact with patient whom stated she understood her appoint was at 3:30p and would be in.
[2024-12-24 15:18] VITALS: BP 140/69; PULSE 75; RESP 18; TEMP 36.4; O2SAT 99
[2024-12-24] MEDS: Ertapenem Sod 1 GM/10 ML Vial IM (15:21)
== END 2024-12-24 15:37 | disposition home or self-care (01) ==
LOC: MEDOUTP 15:13 → MS3 15:14
PROVIDERS: PCP Family Medicine Geriatric Medicine; Referring Provider Internal Medicine Infectious Disease; Visit Provider Internal Medicine Infectious Disease
DX: N39.0 Urinary tract infection, site not specified (principal); Z16.12 Extended spectrum beta lactamase (ESBL) resistance
CPT/HCPCS: 96372

== ENCOUNTER 2024-12-25 11:47 | Outpatient (CLI) | payer MEDICARE, OTHER, SELFPAY ==
[2024-12-25 11:55] VITALS: BP 140/71; PULSE 77; RESP 16; TEMP 35.8; O2SAT 97; BMI 47.2
[2024-12-25] MEDS: Ertapenem Sod 1 GM/10 ML Vial IM (12:29)
== END 2024-12-25 23:59 | disposition home or self-care (01) ==
LOC: MEDOUTP 11:48
PROVIDERS: PCP Family Medicine Geriatric Medicine; Referring Provider Internal Medicine Infectious Disease; Visit Provider Internal Medicine Infectious Disease
DX: N39.0 Urinary tract infection, site not specified (principal); Z16.12 Extended spectrum beta lactamase (ESBL) resistance
CPT/HCPCS: 96372

== ENCOUNTER 2024-12-26 12:09 | Outpatient (CLI) | payer MEDICARE, OTHER, SELFPAY ==
[2024-12-26 12:37] VITALS: BP 144/72; PULSE 75; RESP 18
[2024-12-26] MEDS: Ertapenem Sod 1 GM/10 ML Vial IM (12:43)
== END 2024-12-26 23:59 | disposition home or self-care (01) ==
LOC: MEDOUTP 12:09
PROVIDERS: PCP Family Medicine Geriatric Medicine; Referring Provider Internal Medicine Infectious Disease; Visit Provider Internal Medicine Infectious Disease
DX: N39.0 Urinary tract infection, site not specified (principal); Z16.12 Extended spectrum beta lactamase (ESBL) resistance
CPT/HCPCS: 96372

== ENCOUNTER 2024-12-27 10:15 | Outpatient (CLI) | payer MEDICARE, OTHER, SELFPAY ==
[2024-12-27 10:25] VITALS: BP 144/75; PULSE 79; RESP 16; TEMP 36; O2SAT 98; BMI 47.2
[2024-12-27] MEDS: Ertapenem Sod 1 GM/10 ML Vial IM (10:37)
== END 2024-12-27 23:59 | disposition home or self-care (01) ==
LOC: MEDOUTP 10:15
PROVIDERS: PCP Family Medicine Geriatric Medicine; Referring Provider Internal Medicine Infectious Disease; Visit Provider Internal Medicine Infectious Disease
DX: N39.0 Urinary tract infection, site not specified (principal); Z16.12 Extended spectrum beta lactamase (ESBL) resistance
CPT/HCPCS: 96372

== ENCOUNTER 2024-12-28 14:58 | Outpatient (CLI) | payer MEDICARE, OTHER, SELFPAY ==
[2024-12-28 15:07] VITALS: BP 136/74; PULSE 81; RESP 18; TEMP 36.3; O2SAT 95
[2024-12-28 15:22] LABS: Hematocrit 30.8 % (37-47); Mean Corp Hgb Conc 32.5 g/dL (32-36); Mean Corpuscular Hgb 30.1 pg (27.0-32.0); Mean Corpuscular Volume 92.8 fL (81-99); Mean Platelet Vol. 9.1 fl (6.2-12.0); Platelet Count 203 K/mm3 (150-450); RBC Distribution Width CV 14.5 % (11.6-14.6); RBC Distribution Width SD 49.1 fl (35.1-43.9); Red Blood Count 3.32 M/mm3 (4.2-5.4)
[2024-12-28] MEDS: Ertapenem Sod 1 GM/10 ML Vial IM (15:24)
[2024-12-28 16:16] LABS: ALB/GLOB Ratio 1.1 RATIO (0.9-2.4); AST(SGOT) 20 U/L (<=31); Alanine Aminotransfer ALT/SGPT 9 U/L (<=34); Albumin, Serum 3.8 g/dL (3.4-4.8); Alkaline Phosphatase 72 U/L (35-104); Anion Gap 11 (5-15); BUN 43 mg/dL (4-19); BUN/Creat Ratio 36.8 RATIO (10-20); Calcium,Total 9.4 mg/dL (7.6-11.0); Carbon Dioxide 23.4 mmol/L (21.0-32.0); Chloride 104 mmol/L (98-108); Creatinine, Serum 1.17 mg/dL (0.70-1.20); EST Glomerular Filtration Rate 49 (>60); Globulin 3.6 g/dL (2.2-4.2); Glucose 133 mg/dL (70-99); Potassium 4.4 mmol/L (3.3-5.1); Protein, Total 7.4 g/dL (5.9-8.4); Sodium Level 139 mmol/L (133-145); Total Bilirubin 0.35 mg/dL (0.00-1.30)
== END 2024-12-28 23:59 | disposition home or self-care (01) ==
LOC: MEDOUTP 14:58
PROVIDERS: PCP Family Medicine Geriatric Medicine; Referring Provider Internal Medicine Infectious Disease; Visit Provider Internal Medicine Infectious Disease
DX: N39.0 Urinary tract infection, site not specified (principal); Z16.12 Extended spectrum beta lactamase (ESBL) resistance
CPT/HCPCS: 36415; 80053; 85027; 96372

== ENCOUNTER 2025-01-01 14:44 | Emergency (ER) | payer MEDICARE, OTHER, SELFPAY ==
[2025-01-01 14:48] VITALS: BP 133/84; PULSE 83; RESP 22; TEMP 36.5; O2SAT 99
--- NOTE | 2025-01-01 15:31 | RAD_ITS ---
PROCEDURE: KNEE 1 OR 2 VIEWS (RADK), 01/01/2025 REASON FOR EXAM: PAIN TECHNIQUE: PA and lateral views of the RIGHT knee were obtained. COMPARISON: None FINDINGS: Exam slightly limited due to extended positioning of the knee on the lateral view. Fracture/dislocation: None visible. Joint space(s): Severe loss of lateral compartment joint space. Ybzcyppi-yy-cfqssd loss of patellofemoral compartment joint space. Mild loss of medial compartment joint space. Mild tricompartment osteophytes and subchondral sclerosis greatest along the patellofemoral and lateral compartments... Soft tissues: Questionable suprapatellar joint effusion.. Foreign bodies: None visible. Bone mineralization: Suspect demineralization. Other: None. RAD/Knee 1 or 2 Views IMPRESSION: 1. Suspect demineralization without visible acute displaced fracture. 2. Questionable joint effusion, evaluation limited due to positioning. Correla te with exam. If there is clinical concern for an occult intra-articular fracture, consider CT. 3. Degenerative findings and additional description as above. Reading Location: [id number]
--- NOTE | 2025-01-01 15:40 | RAD_ITS ---
PROCEDURE: WRIST MIN 3 VIEWS 01/01/2025 REASON FOR EXAM: PAIN, history of arthritis. TECHNIQUE: 3 views of the left hand COMPARISON: None. FINDINGS: Bones: Diffuse osseous demineralization. No obvious acute fracture. No aggressive osseous lesions. Joints: Normal alignment. Moderate degenerative changes of the 1st CMC joint. Mild degenerative changes of the joint spaces. Soft tissues: Soft tissues are unremarkable. Other: No radiopaque foreign body. RAD/Wrist min 3 Views IMPRESSION: DEGENERATIVE OSTEOARTHROSIS. NO ACUTE FINDINGS. Reading Location: [id number]
--- NOTE | 2025-01-01 16:07 | EX.ED.DYSGE1 ---
HPI <SAMANTHA Beard - Last Filed: 01/01/25 20:09> History of Present Illness Chief Complaint: Lower Extremity Injury Narrative Narrative: 74-year-old female with past medical history of osteoarthritis presents with left wrist and right knee pain that started last night. No known injury or falls. No fever or chills. No weakness or numbness or tingling. PFSH <SAMANTHA Beard - Last Filed: 01/01/25 20:09> [facility] Medical History (Updated 01/01/25 @ 17:45 by SAMANTHA Beard) History of ESBL Klebsiella pneumoniae infection BiPAP (biphasic positive airway pressure) dependence History of diverticulitis Restless legs MRSA infection Wears glasses Post-menopausal Alcohol use Thyroid disease Arthritis High cholesterol Back pain Injury of head and neck Non-smoker Shortness of breath on exertion History of pain when walking History of echocardiogram Sinus tachycardia by electrocardiogram Anemia Thrombocytopenia Depression Anxiety Osteoarthritis Kidney stones Asthma Hypertension Diabetes Fibromyalgia Foot arch pain COVID-19 Home Medications ?Medication ?Instructions ?Recorded ?Last Taken ?Type fluticasone propionate 50 2 spray NASAL DAILY allergies 12/07/16 05/31/24 History mcg/actuation nasal spray,suspension citalopram 20 mg tablet 20 mg PO QHS DEPRESSION 04/26/21 05/31/24 History levothyroxine 25 mcg tablet 25 mcg PO DAILY thyroid 04/29/21 04/06/24 07:00 History lovastatin 40 mg tablet 40 mg PO QHS cholesterol 04/29/21 05/31/24 History ropinirole 2 mg tablet 2 mg PO QHS RLS 06/25/23 05/31/24 History glucosamine 375 bo-doanlkeup-qgg 3 tab PO DAILY 08/02/23 05/31/24 History no1 500 mg-C 15 mg-gianni 0.5 mg tablet (Cwhhcrrmhwf-Ptgydbeunof-DUK Complex) metformin 500 mg tablet 500 mg PO BID 08/02/23 05/31/24 History cranberry fruit 400 mg capsule 400 mg PO DAILY 11/03/23 05/31/24 History vitamin B complex 1 tab PO DAILY 11/23/23 05/31/24 History budesonide 0.5 mg/2 mL suspension 0.5 mg inhalation Q12H PRN PRN 03/23/24 Unknown History for nebulization breathing finerenone 10 mg tablet (Kerendia) 10 mg PO DAILY 05/18/24 05/31/24 History oxycodone-acetaminophen 5 mg-325 1 tab PO Q8H PRN pain 3 days #10 06/01/24 Unknown Rx mg tablet (Percocet) tabs ipratropium bromide 42 mcg (0.06 2 spray intranasal DAILY 06/19/24 Unknown History %) nasal spray levalbuterol tartrate 45 1 puff inhalation Q4H PRN 06/19/24 Unknown History mcg/actuation aerosol inhaler shortness of breath polysaccharide iron complex 150 mg 150 mg PO QDAY 06/19/24 Unknown History iron capsule (Ferrex) vibegron 75 mg tablet (Gemtesa) 75 mg PO QDAY 08/11/24 Unknown History ascorbate calcium (vitamin C) 500 1 g PO DAILY 12/22/24 Unknown History mg tablet coenzyme Q10 100 mg capsule 50 mg PO DAILY 12/22/24 Unknown History (CoQ-10) echinacea 500 mg capsule 1,000 mg PO DAILY 12/22/24 Unknown History melatonin 10 mg capsule 10 mg PO QHS 12/22/24 Unknown History prednisone 20 mg tablet 40 mg (2 x 20 mg) PO DAILY 4 days 01/01/25 Unknown Rx #8 tabs Allergy/AdvReac Type Severity Reaction Status Date / Time cephalexin monohydrate (From Allergy Swelling Verified 01/01/25 14:51 Keflex) ibuprofen Allergy Swelling Verified 01/01/25 14:51 oxaprozin (From Daypro) Allergy Swelling Verified 01/01/25 14:51 tramadol HCl (From Ultram) Allergy Swelling Verified 01/01/25 14:51 albuterol AdvReac Intermediate Other Verified 01/01/25 14:51 celecoxib (From Celebrex) AdvReac DIZZY AND Verified 01/01/25 14:51 HURTS AROUND MY LIVER Family History Other Diabetes Hypertension Surgical History Hx of bilateral cataract extraction History of cystoscopy Hx of umbilical hernia repair History of carpal tunnel surgery of left wrist Hx of tonsillectomy Hx of colonoscopy History of ureter stent Social History household members: children housing: house Smoking Status: Never smoker alcohol intake: never substance use type: does not use ROS <SAMANTHA Beard - Last Filed: 01/01/25 20:09> ROS ED ROS Narrative Constitutional: Negative for fever, chills. Neuro: Negative for motor/sensory dysfunction. Skin: Negative for rash. Musc: Positive for left wrist and right knee pain. EXAM <SAMANTHA Beard - Last Filed: 01/01/25 20:09> Physical Exam Narrative Exam Narrative: CONST: Patient sitting in no acute distress. EYES: Normal inspection. NECK: Normal inspection. RESP: No respiratory distress, CTAB. CVS: Regular rate and rhythm, no murmur, no gallop. SKIN: Color normal, no rash, warm, dry, intact. EXTREMITIES: Normal appearance of upper and lower extremities. Mild soft tissue swelling and tenderness over the left wrist and pain with extension. No warmth, erythema or rash. 2+ radial pulses. Normal motor and sensory function in median radial and ulnar distributions. Bilateral lower extremities appear normal and symmetric, mildly tender over right knee but range of motion is intact. 5/5 strength in knee flexion/extension and dorsiflexion/plantarflexion. 2+ DP pulses. No edema or calf tenderness. NEURO: Alert and answering questions appropriately. PSYCH: Normal affect. Const Vital Signs: 01/01/25 14:48 Temperature 97.7 F L Temperature Source Tympanic Pulse Rate 83 Respiratory Rate 22 H Blood Pressure 133/84 H Blood Pressure Mean 100 Pulse Ox 99 Oxygen Delivery Method Room Air <Dr. Evans Blankenship DO - Last Filed: 01/01/25 18:02> Physical Exam Const Vital Signs: 01/01/25 14:48 Temperature 97.7 F L Temperature Source Tympanic Pulse Rate 83 Respiratory Rate 22 H Blood Pressure 133/84 H Blood Pressure Mean 100 Pulse Ox 99 Oxygen Delivery Method Room Air MDM <SAMANTHA Beard - Last Filed: 01/01/25 20:09> MDM MDM Narrative Medical decision making narrative: 74-year-old female with atraumatic left wrist and right knee pain that started last night. She has a history of significant osteoarthritis. She was told she needs a knee replacement but has to lose weight first. She has mild soft tissue swelling of the left wrist but no signs of infection. Is also tender over the right knee without any external swelling or signs of trauma. Upper and lower extremities are neurovascularly intact. X-rays of left wrist and right knee shows significant blse-nd-xbry osteoarthritis but no acute fracture. She has had normal renal function in the past and requested Toradol so this was ordered. I prescribed a short prednisone burst and recommended Tylenol and orthopedic follow-up. She was given a thumb spica splint for comfort. She was discharged in stable condition. Lab Data Labs: Laboratory Results - last 24 hr 01/01/25 17:31 POC Glucose 128 H Radiography Diagnostic Testing: Clinical Impression(s) from Imaging Studies Knee X-Ray 01/01/25 15:31 IMPRESSION: 1. Suspect demineralization without visible acute displaced fracture. 2. Questionable joint effusion, evaluation limited due to positioning. Correlate with exam. If there is clinical concern for an occult intra-articular fracture, consider CT. 3. Degenerative findings and additional description as above. Reading Location: [facility] Wrist X-Ray 01/01/25 15:40 IMPRESSION: DEGENERATIVE OSTEOARTHROSIS. NO ACUTE FINDINGS. Reading Location: [facility] ED attending interpretation of left wrist shows significant osteoarthritis without acute fracture. ED attending interpretation of right knee shows [id number] osteoarthritis without fracture or dislocation. <Dr. Evans Blankenship, DO - Last Filed: 01/01/25 18:02> MDM History & Record Review Discussion w/independent historian: Patient Lab Data Attestation: I reviewed the patient's lab results. Labs: Laboratory Results - last 24 hr 01/01/25 17:31 POC Glucose 128 H Radiography Diagnostic Testing: Clinical Impression(s) from Imaging Studies Knee X-Ray 01/01/25 15:31 IMPRESSION: 1. Suspect demineralization without visible acute displaced fracture. 2. Questionable joint effusion, evaluation limited due to positioning. Correlate with exam. If there is clinical concern for an occult intra-articular fracture, consider CT. 3. Degenerative findings and additional description as above. Reading Location: [facility] Wrist X-Ray 01/01/25 15:40 IMPRESSION: DEGENERATIVE OSTEOARTHROSIS. NO ACUTE FINDINGS. Reading Location: [facility] Treatment and Re-Evaluation :: I have personally performed a face to face assessment of the patient and have reviewed the TL Note. I performed a substantive portion of the visit including all aspects of the following. My melgoza findings include: History is 74-year-old female presenting with right knee and left hand pain. Patient has a history of arthritis and is currently seen [place] [facility]. She states she has had injections into the right knee. 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 She notes swelling at the base of the thumb on the left. No reported fevers. Exam is patient has mild swelling at the CMC joint on the left. There is no overt overlying erythema or increased warmth. Painful range of motion. Right knee does not demonstrate any concerns for infection. Ligaments appear stable although patient is guarding due to limited range of motion. Medical Decison Making my independent interpretation of the plain films of the left wrist is CMC arthritis. My independent interpretation of plain films of the right knee is degenerative changes severe laterally. Patient received a dose of Toradol at her request. We can put her on a short course of steroids. Would recommend orthopedic follow-up. Discharge Plan Triage Chief Complaint: Lower Extremity Injury Other Complaint: Upper Extremity Injury ED Midlevel Provider: Lucrecia Garcia ED Provider: Evans Blankenship Dx/Rx/DC Orders Clinical Impression: Osteoarthritis, Acute pain of left wrist, Acute pain of right knee Instructions: Arthritis: Exercise Prescriptions: New prednisone 20 mg tablet 40 mg PO DAILY 4 Days Qty: 8 0RF No Action polysaccharide iron complex [Ferrex 150] 150 mg iron capsule 150 mg PO QDAY ipratropium bromide 42 mcg (0.06 %) spray,non-aerosol 2 spray intranasal DAILY Patient Comments: [NO ORIGINAL SIG] levalbuterol tartrate 45 mcg/actuation HFA aerosol inhaler 1 puff inhalation Q4H PRN (Reason: shortness of breath) Gemtesa 75 mg tablet 75 mg PO QDAY fluticasone propionate 1 SPRAY spray,suspension 2 spray NASAL DAILY citalopram 20 mg tablet 20 mg PO QHS Patient Comments: TAKE 1/2 (ONE-HALF) OF A TABLET DAILY FOR 7 DAYS then TAKE 1 TABLET DAILY lovastatin 40 mg tablet 40 mg PO QHS Patient Comments: TAKE 1 TABLET DAILY AT BEDTIME levothyroxine 25 mcg tablet 25 mcg PO DAILY Patient Comments: TAKE 1 TABLET BY MOUTH ONCE DAILY ropinirole 2 mg tablet 2 mg PO QHS metformin 500 mg tablet 500 mg PO BID Patient Comments: WITH EACH MEAL Lvotwimivus-Zcwmp-DER Complex [id number] mg tablet 3 tab PO DAILY cranberry fruit 400 mg capsule 400 mg PO DAILY Rx Instructions: administer with a meal Kerendia 10 mg tablet 10 mg PO DAILY oxycodone-acetaminophen [Percocet] 5-325 mg tablet 1 tab PO Q8H PRN (Reason: pain) 3 Days Qty: 10 0RF coenzyme Q10 [CoQ-10] 100 mg capsule 50 mg PO DAILY melatonin 10 mg capsule 10 mg PO QHS ascorbate calcium (vitamin C) 500 mg tablet 1 g PO DAILY echinacea 500 mg capsule 1,000 mg PO DAILY Rx Instructions: administer with meals vitamin B complex Tablet 1 tab PO DAILY budesonide 0.5 mg/2 mL Suspension For Nebulization 0.5 mg inhalation Q12H PRN PRN (Reason: breathing) Primary Care Provider: Corby Heller Chi Referrals: Brian Acosta MD [Med Staff - Active Staff] - Corby Heller Chi, MD [Primary Care Provider] - Activity Restrictions/Additional Instructions: You have severe osteoarthritis in your wrist and right knee. I suspect this is the cause of your pain. Use ice and take Tylenol and the prescribed prednisone as needed. This can raise your blood sugars so check them frequently and drink plenty of water. Follow-up with the orthopedic doctor. Print Language: Mongolian Disposition Disposition: Home, Self Care Discharge Date/Time: 01/01/25 18:27
[2025-01-01] MEDS: Ketorolac 15 MG/ML Vial IM (16:23)
[2025-01-01 17:50] LABS: Bedside Glucose 128 mg/dL (74-106)
[2025-01-01] MEDS: predniSONE 20 MG Tablet PO (18:08)
== END 2025-01-01 18:27 | disposition home or self-care (01) ==
PROVIDERS: Emergency Provider Emergency Medicine; PCP Family Medicine Geriatric Medicine; Visit Provider Emergency Medicine
DX: M25.561 Pain in right knee (principal); E11.9 Type 2 diabetes mellitus without complications; M17.11 Unilateral primary osteoarthritis, right knee; E78.00 Pure hypercholesterolemia, unspecified; I10 Essential (primary) hypertension; M25.532 Pain in left wrist; J45.909 Unspecified asthma, uncomplicated; Z79.51 Long term (current) use of inhaled steroids; Z79.899 Other long term (current) drug therapy; F32.A Depression, unspecified; Z79.84 Long term (current) use of oral hypoglycemic drugs; Z98.41 Cataract extraction status, right eye; Z98.42 Cataract extraction status, left eye
CPT/HCPCS: 73110; 73560; 82962; 96372; 99285

== ENCOUNTER 2025-01-18 16:31 | Outpatient (CLI) | payer MEDICARE, OTHER, SELFPAY ==
--- NOTE | 2025-01-18 15:00 | TISS_PTH ---
PATIENT: EDUAR GOMEZ [facility][id number] AGE/SX: 74/F ROOM: RE01/18/[address]: Dr. Rob Weinberg MD : 1950 BED: DIS: 01/18/2025 SPEC #: [id number] RECD: 01/18/25 16:30 STATUS: SHYANNE RERenee #: [id number] HIEN: 01/18/25 15:[address]: Rob Weinberg DEPT: SURGICAL PATHOLOGY RECD BY: Pushpa Roldan ENTERED: 01/19/25 07:01 SP TYPE: Tissue Bx BURT DR: Dr. Corby Heller MD Tissues: A - Skin of face, NOS Procedures: Surgery Specimen Level IV HEADER OPERATION: Biopsy PRE-OP DIAGNOSIS: Neoplasm of uncertain behavior of skin TISSUE SUBMITTED: A- Left cheek biopsy MICROSCOPIC DIAGNOSIS A. Skin, left cheek, shave biopsy: * Superficial fragments of irritated seborrheic keratosis with lichenoid chronic inflammation. MICROSCOPIC DESCRIPTION Slides are reviewed. GROSS DESCRIPTION A. Received in formalin in a container labeled with the patient's name, date of , and L cheek biopsy are multiple white-cristina, friable fragments of soft tissue measuring 0.3 x 0.2 x 0.2 cm in aggregate. Submitted in toto in A1. [facility] 01-19-2025 CPT:81964
== END 2025-01-18 23:59 | disposition home or self-care (01) ==
LOC: LABSPEC 16:32
PROVIDERS: PCP Family Medicine Geriatric Medicine; Referring Provider Surgery Plastic and Reconstructive Surgery; Visit Provider Surgery Plastic and Reconstructive Surgery
DX: D48.5 Neoplasm of uncertain behavior of skin (principal)
CPT/HCPCS: 88305

== ENCOUNTER → 2025-01-30 | Outpatient (CLI) | payer MEDICARE, OTHER, SELFPAY ==
[2025-01-30 13:21] LABS: Basophil# 0.06 X10^3/uL; Basophil% 0.7 % (0-1); Eosinophil# 0.22 X10^3/uL; Eosinophils% 2.4 % (0-5); Hematocrit 33.3 % (37-47); Hemoglobin 10.4 g/dL (12.0-15.0); Lymphocyte % 21.1 % (19-41); Mean Corp Hgb Conc 31.2 g/dL (32-36); Mean Corpuscular Hgb 29.5 pg (27.0-32.0); Mean Corpuscular Volume 94.6 fL (81-99); Mean Platelet Vol. 9.6 fl (6.2-12.0); Monocyte# 0.72 X10^3/uL; NRBC Flagged by Analyzer 0 % (0-5); Neutrophil % 66.6 % (47-70); Platelet Count 229 K/mm3 (150-450); RBC Distribution Width SD 51.3 fl (35.1-43.9); Red Blood Count 3.52 M/mm3 (4.2-5.4)
[2025-01-30 14:56] LABS: Albumin, Serum 3.7 g/dL (3.4-4.8); Anion Gap 10 (5-15); BUN 26 mg/dL (4-19); Calcium,Total 9.6 mg/dL (7.6-11.0); Carbon Dioxide 26.8 mmol/L (21.0-32.0); Chloride 101 mmol/L (98-108); Creatinine, Serum 1.12 mg/dL (0.70-1.20); EST Glomerular Filtration Rate 51 (>60); Glucose 138 mg/dL (70-99); Phosphorus 2.9 mg/dL (2.7-4.5); Potassium 4.6 mmol/L (3.3-5.1); Sodium Level 138 mmol/L (133-145)
[2025-01-30 15:16] LABS: AST(SGOT) 26 U/L (<=31); Alanine Aminotransfer ALT/SGPT 13 U/L (<=34); Albumin, Serum 3.7 g/dL (3.4-4.8); Alkaline Phosphatase 85 U/L (35-104); Anion Gap 10 (5-15); BUN 26 mg/dL (4-19); BUN/Creat Ratio 22.9 RATIO (10-20); Calcium,Total 9.6 mg/dL (7.6-11.0); Chloride 102 mmol/L (98-108); Creatinine, Serum 1.12 mg/dL (0.70-1.20); EST Glomerular Filtration Rate 51 (>60); Globulin 3.6 g/dL (2.2-4.2); Glucose 139 mg/dL (70-99); Potassium 4.7 mmol/L (3.3-5.1); Protein, Total 7.2 g/dL (5.9-8.4); Sodium Level 139 mmol/L (133-145); Total Bilirubin 0.26 mg/dL (0.00-1.30); Vitamin D,25 Hydroxy 40.9 ng/mL (30-100)
[2025-01-30 19:34] LABS: Microalbumin:Creatinine Ratio 1424.5 mg/g CRE
== END | disposition home or self-care (01) ==
PROVIDERS: PCP Family Medicine Geriatric Medicine; Referring Provider Family Medicine Geriatric Medicine; Visit Provider Internal Medicine Nephrology
DX: E11.65 Type 2 diabetes mellitus with hyperglycemia (principal); E55.9 Vitamin D deficiency, unspecified; I10 Essential (primary) hypertension
CPT/HCPCS: 36415; 80053; 80069; 82043; 82306; 82570; 84443; 85025

== ENCOUNTER → 2025-02-15 | Outpatient (CLI) | payer MEDICARE, OTHER, SELFPAY ==
--- NOTE | 2025-02-15 15:58 | BI_ITS ---
EXAM: SCRN MAMM (CAD)W/MARBIN BILAT DATE: 02/15/2025 CLINICAL HISTORY: F, Age 75 y/o , SCREENING BREAST CANCER RISK ASSESSMENT: Not reported TECHNIQUE: Bilateral screening digital breast tomosynthesis with 2D and 3D images. Computer aided detection. COMPARISON: None available FINDINGS: TISSUE DENSITY: The breast tissue is composed of scattered area of fibroglandular density. Bilateral Breast Mammographic Findings: Right breast: There is an asymmetry in the inner right breast anterior depth. There is questionable prominent right axillary lymph node. Left breast: There is focal asymmetry in the upper inner left breast anterior depth. There is an asymmetry in the outer left breast mid depth. BI/SCRN MAMM (CAD)W/MARBIN BILAT IMPRESSION: OVERALL FINAL ASSESSMENT: BIRADS 0 Incomplete: Need additional imaging evaluati on and/or prior mammograms for comparison. RECOMMENDATION: Incomplete: Need additional imaging evaluation with bilateral diagnostic mammog antoine and ultrasound. A letter with findings and recommendations will be mailed to the patient. Reading Location: [id number]
--- NOTE | 2025-02-15 16:02 | BD_ITS ---
PROCEDURE: DEXA BONE DENSITY/APPEND SKEL 02/15/2025 REASON FOR EXAM: F, age 75 y/o . Postmenopausal. TECHNIQUE: DXA scan of sites with data reported below. REFERENCE LINKS: ISCD Adult Positions COMPARISON: None FINDINGS: BMD and T-SCORES Left 1/3 radius: 0.506 g/cm2, T-score -1.3 Right 1/3 radius: 0.498 g/cm2, T-score -1.5 The World Health Organization has defined the following categories based on bone density: Normal bone density: T-score equal to or greater than -1.0 Osteopenia: T-score between -1.0 and -2.5 Osteoporosis: T-score equal to or less than -2.5 The patient does meet the pharmacological treatment recommendations for prevention of osteoporosis. BD/Dexa Bone Density/Append Skel IMPRESSION: OSTEOPENIA. Recommend follow-up as clinically warranted. Reading Location: [place] [id number]
== END | disposition home or self-care (01) ==
LOC: OPBD 15:56
PROVIDERS: PCP Family Medicine Geriatric Medicine; Referring Provider Family Medicine Geriatric Medicine; Visit Provider Family Medicine Geriatric Medicine
DX: Z12.31 Encounter for screening mammogram for malignant neoplasm of breast (principal); Z78.0 Asymptomatic menopausal state
CPT/HCPCS: 77063; 77067; 77081

== ENCOUNTER → 2025-05-03 | Outpatient (CLI) | payer MEDICARE, OTHER, SELFPAY ==
[2025-05-03 16:06] LABS: Hematocrit 30.8 % (37-47); Hemoglobin 9.8 g/dL (12.0-15.0); Immature Granulocytes Count 0.020 X10^3/uL (0.0-0.0); Mean Corp Hgb Conc 31.8 g/dL (32-36); Mean Corpuscular Volume 95.4 fL (81-99); Mean Platelet Vol. 10.7 fl (6.2-12.0); NRBC Flagged by Analyzer 0 % (0-5); Platelet Count 201 K/mm3 (150-450); RBC Distribution Width CV 15.4 % (11.6-14.6); RBC Distribution Width SD 53.3 fl (35.1-43.9); Red Blood Count 3.23 M/mm3 (4.2-5.4); White Blood Count 7.5 K/mm3 (4.4-11.0)
[2025-05-03 16:39] LABS: AST(SGOT) 19 U/L (<=31); Alanine Aminotransfer ALT/SGPT 9 U/L (<=34); Albumin, Serum 3.9 g/dL (3.4-4.8); Alkaline Phosphatase 89 U/L (35-104); Anion Gap 13 (5-15); BUN 35 mg/dL (4-19); BUN/Creat Ratio 32.0 RATIO (10-20); Calcium,Total 9.2 mg/dL (7.6-11.0); Carbon Dioxide 20.2 mmol/L (21.0-32.0); Chloride 106 mmol/L (98-108); Globulin 3.4 g/dL (2.2-4.2); Glucose 178 mg/dL (70-99); Potassium 4.6 mmol/L (3.3-5.1); Vitamin D,25 Hydroxy 48.0 ng/mL (30-100)
[2025-05-03 16:43] LABS: Creatinine, Urine (random) 115.00 mg/dL (28.00-217.00); Protein, Urine (Random) 52.0 mg/dL (0.0-12.0); Protein:Creat Ratio 452 mg/g CRE (0-200)
[2025-05-03 17:02] LABS: Bilirubin, Direct 0.15 mg/dL (0.00-0.30)
[2025-05-03 17:03] LABS: Creatinine, Urine (random) 120.00 mg/dL (28.00-217.00); Microalbumin,Random Urine 190.0 mg/L (<20 mg/L)
[2025-05-03 23:22] LABS: Xtra Tube Kwok EXTRA TUBE
== END | disposition home or self-care (01) ==
LOC: POLAB3 15:22
PROVIDERS: Internal Medicine Nephrology; PCP Family Medicine Geriatric Medicine; Visit Provider Family Medicine Geriatric Medicine
DX: E11.22 Type 2 diabetes mellitus with diabetic chronic kidney disease (principal); N18.31 Chronic kidney disease, stage 3a; E55.9 Vitamin D deficiency, unspecified; I12.9 Hypertensive chronic kidney disease with stage 1 through stage 4 chronic kidney disease, or unspecified chronic kidney disease
CPT/HCPCS: 36415; 80053; 82043; 82248; 82306; 82570; 84156; 84443; 85025

== ENCOUNTER 2025-05-10 14:48 | Inpatient (IN) | payer MEDICARE, OTHER, SELFPAY ==
[2025-05-10] VITALS (9 sets, daily range): BP systolic 114–155; BP diastolic 51–125; PULSE 79–100; RESP 16–22; TEMP 36.9–37.9; O2SAT 94–100; BMI 47.9; BMI 49.6
--- NOTE | 2025-05-10 15:20 | RAD_ITS ---
PROCEDURE: FOOT MIN 3 VIEWS 05/10/2025 REASON FOR EXAM: INFECTION TECHNIQUE: FOOT MIN 3 VIEWS Laterality: Left COMPARISON: None FINDINGS: The bones are diffusely demineralized. No demonstrated fracture. However, because of the osteopenia and overlapping osseous structures, a subtle fracture could be present and overlooked. Calcaneal heel spurs are noted. There is arthritic narrowing at all visualized joint spaces, most notably in the PIP and D IP joints where the 2nd through the 4th toes are fixed in flexion. No subchondral changes are noted. There is nonspecific soft tissue swelling but there is no subcutaneous emphysema or evidence of foreign body RAD/Foot min 3 Views IMPRESSION: Profound osteopenia, no demonstrated fracture, please see discussion above Polyarticular arthrosis Calcaneal spurs Soft tissue swelling Reading Location: [id number]
--- NOTE | 2025-05-10 15:25 | ED.VIS.LOWEX ---
HPI History of Present Illness Chief Complaint: Lower Extremity Injury Informant: patient Narrative Narrative: Presents worsening pain redness swelling left lateral foot over the last 2 days. Diabetic with neuropathy. She is followed by Dr. Geiger. She reports a week ago was in the office for toenail clipping. She states she had pain lateral foot, she states she was provided a cushion pad. She states there is no redness at that time. Symptoms started last 2 days. Denies fever or chills. Denies cough. She allergy to Keflex causing trouble breathing however is done penicillin in the past. Denies trauma. Prior similar symptoms: No PFSH PFSH Medical History History of ESBL Klebsiella pneumoniae infection BiPAP (biphasic positive airway pressure) dependence History of diverticulitis Restless legs MRSA infection Wears glasses Post-menopausal Alcohol use Thyroid disease Arthritis High cholesterol Back pain Injury of head and neck Non-smoker Shortness of breath on exertion History of pain when walking History of echocardiogram Sinus tachycardia by electrocardiogram Anemia Thrombocytopenia Depression Anxiety Osteoarthritis Kidney stones Asthma Hypertension Diabetes Fibromyalgia Foot arch pain COVID-19 Home Medications ?Medication ?Instructions ?Recorded ?Last Taken ?Type fluticasone propionate 50 2 spray NASAL DAILY allergies 12/07/16 05/31/24 History mcg/actuation nasal spray,suspension citalopram 20 mg tablet 20 mg PO QHS DEPRESSION 04/26/21 05/31/24 History levothyroxine 25 mcg tablet 25 mcg PO DAILY thyroid 04/29/21 04/06/24 07:00 History lovastatin 40 mg tablet 40 mg PO QHS cholesterol 04/29/21 05/31/24 History ropinirole 2 mg tablet 2 mg PO QHS RLS 06/25/23 05/31/24 History glucosamine 375 zl-wedimauhj-crf 3 tab PO DAILY joints 08/02/23 05/31/24 History no1 500 mg-C 15 mg-gianni 0.5 mg tablet (Awjbbglojyo-Mlyshriwfhn-CVN Complex) metformin 500 mg tablet 500 mg PO BID dm 08/02/23 05/31/24 History cranberry fruit 400 mg capsule 400 mg PO DAILY health 11/03/23 05/31/24 History vitamin B complex 1 tab PO DAILY health 11/23/23 05/31/24 History budesonide 0.5 mg/2 mL suspension 0.5 mg inhalation Q12H PRN PRN 03/23/24 Unknown History for nebulization breathing finerenone 10 mg tablet (Kerendia) 10 mg PO DAILY health 05/18/24 05/31/24 History ipratropium bromide 42 mcg (0.06 2 spray intranasal DAILY sob 06/19/24 Unknown History %) nasal spray levalbuterol tartrate 45 1 puff inhalation Q4H PRN 06/19/24 Unknown History mcg/actuation aerosol inhaler shortness of breath polysaccharide iron complex 150 mg 150 mg PO QDAY anemia 06/19/24 Unknown History iron capsule (Ferrex) ascorbate calcium (vitamin C) 500 1 g PO DAILY health 12/22/24 Unknown History mg tablet coenzyme Q10 100 mg capsule 50 mg PO DAILY health 12/22/24 Unknown History (CoQ-10) echinacea 500 mg capsule 1,000 mg PO DAILY health 12/22/24 Unknown History melatonin 10 mg capsule 10 mg PO QHS sleep 12/22/24 Unknown History Allergy/AdvReac Type Severity Reaction Status Date / Time cephalexin monohydrate (From Allergy Swelling Verified 01/26/25 14:38 Keflex) ibuprofen Allergy Swelling Verified 01/26/25 14:38 oxaprozin (From Daypro) Allergy Swelling Verified 01/26/25 14:38 tramadol HCl (From Ultram) Allergy Swelling Verified 01/26/25 14:38 albuterol AdvReac Intermediate Other Verified 01/26/25 14:38 celecoxib (From Celebrex) AdvReac DIZZY AND Verified 01/26/25 14:38 HURTS AROUND MY LIVER Family History Other Diabetes Hypertension Surgical History Hx of bilateral cataract extraction History of cystoscopy Hx of umbilical hernia repair History of carpal tunnel surgery of left wrist Hx of tonsillectomy Hx of colonoscopy History of ureter stent Social History household members: children housing: house Smoking Status: Never smoker alcohol intake: never substance use type: does not use ROS ROS ED Constitutional Constitutional ED: Denies fever(s) Cardiovascular Cardiovascular: Denies chest pain Respiratory/Chest Respiratory/Chest: Denies cough Gastrointestinal Gastrointestinal: Denies diarrhea or vomiting Musculoskeletal Musculoskeletal: Reports other Details: Left foot pain and swelling. Integumentary Denies rash Neurologic Neurologic: Denies weakness EXAM Physical Exam Const Vital Signs: 05/10/25 14:51 05/10/25 14:56 05/10/25 15:56 Temperature 99.2 F H 99.2 F H 99.1 F Temperature Source Oral Oral Oral Pulse Rate 87 79 81 Respiratory Rate 17 20 H 20 H Blood Pressure 138/76 H 114/51 L 151/125 H Blood Pressure Mean 96 72 133 Pulse Ox 96 99 95 Oxygen Delivery Method Room Air Room Air Room Air 05/10/25 16:00 05/10/25 17:00 05/10/25 18:00 Temperature 98.4 F 98.7 F 98.4 F Temperature Source Oral Oral Oral Pulse Rate 85 91 85 Respiratory Rate 16 22 H 22 H Blood Pressure 131/88 H 155/120 H 141/68 H Blood Pressure Mean 102 131 92 Pulse Ox 96 96 94 Oxygen Delivery Method Room Air Room Air Room Air Positive well nourished and well developed General Appearance ED: well developed and NAD HEENT Reports moist mucous membranes normocephalic and atraumatic Eyes General Eye ED: Yes normal appearance of both eyes Neck full ROM Chest Wall Chest: Negative for tenderness Resp normal respiratory effort and normal air movement Effort and Inspection: symmetric chest movement; Negative for respiratory distress Cardio regular rate, regular rhythm and no murmurs Peripheral Pulses: pulses 2+ throughout GI normal to inspection, nondistended, normoactive bowel sounds and non-tender Palpation: Negative for guarding or rebound tenderness present Extremity Extremity Narrative: Left lower extremity: No ankle tenderness. Foot examination there was swelling of the fifth digit erythema extending to the distal fifth metatarsal. There was callus at the distal lateral metatarsal of the fifth digit. There is no open wounds. No streaking noted. General Extremety ED: Yes edema and tenderness General Extremity: edema Neuro oriented x3 and no sensory deficits noted Sensorium / Orientation: awake and alert Skin no rashes or lesions noted and no wounds MDM MDM MDM Narrative Medical decision making narrative: Interventions / MDM: Differential diagnosis: Diabetic left foot cellulitis, narrow complex tachycardia Diagnosis considered but do not suspect: N/A My EKG interpretation: At 1511: Narrow complex tachycardia rate of 136. However spacing appears more with a heart rate of 150 abruptly changing to sinus rhythm. EKG #2 at 1512: Sinus rate of 78, first-degree AV block, no ST or T wave changes. QTc 440. Imaging independently reviewed and interpreted by myself: Three-view x-ray left foot: Soft tissue swelling no clear fractures noted. No radiopaque foreign bodies. Also read by radiology. External documents reviewed: N/A Test considered but not ordered:N/A ED course: Patient diabetic foot cellulitis with swelling over the last 2 days. No open wounds. She has no fever or chills. Temp at 99.2 on arrival. Blood pressure stable. Laboratory studies including inflammatory markers. X-ray left foot ordered. No reported while on the monitor she had a run of tachycardia in the 140s. I did review the monitor appeared to be narrow complex tachycardia that was abrupt. Strips were printed out. EKG ordered. While obtaining EKG narrow complex tachycardia was picked up abruptly back to sinus rhythm. Rate was appears more 150s. Likely too slow for SVT, possibility of a flutter. Repeat EKG right afterwards with sinus rhythm first-degree AV block. Patient denies any feelings of racing heart palpitations during these events. 1630: CRP 85 creatinine 1.01 TSH normal 2.8. Awaiting CBC. I will start Zosyn and vancomycin due to cellulitis concerns. 1755: Called to patient's room 10 minutes after vancomycin being started*given flushing reported some shortness of breath. There is no lip or tongue swelling. There was slight flushing to the face and upper torso. Vancomycin was stopped. She is unclear if she has been given this before. IV Benadryl 50 mg ordered. White count returned 11.6 ESR also elevated at 37. 1825: I did send pictures through backline to busgirl Dr. Bhardwaj along with discussion on the phone. Agrees with admission with IV antibiotics. He would like MRI in the hospital. He will follow. 1830: I spoke with hospitalist Dr. Lopez discussed patient's history of findings along with cardiac dysrhythmia. Discussed red man syndrome. I discussed that cardiology on page for discussion of the transient rhythms that patient is asymptomatic. 1850: I spoke with wardrobe stylist Dr. Dinh, sent EKG and rhythm strips to him on backline. He reviewed this. Agrees this is likely SVT with abrupt change to normal sinus rhythm. He recommends monitoring as she is asymptomatic. This was relayed to hospitalist. Re-evaluation: stable Disposition discussed with patient/family/significant other: Patient Case discussed with consulting clinician: Podiatry, hospitalist, cardiology This note was generated with [employer] dictation software. It may contain incorrect words, spelling, and punctuation that were not noted in checking the note before signing. Lab Data Labs: Laboratory Results - last 24 hr 05/10/25 14:55 WBC 11.6 H RBC 3.58 L Hgb 10.9 L Hct 33.8 L MCV 94.4 MCH 30.4 MCHC 32.2 RDW Std Deviation 52.8 H RDW Coeff of Cecil 15.2 H Plt Count 210 MPV 10.2 Immature Gran % (Auto) 0.800 Neut % (Auto) 68.1 Lymph % (Auto) 17.[address] [place] % (Auto) 6.7 Eos % (Auto) 6.7 H Baso % (Auto) 0.3 Absolute Neuts (auto) 7.9 H Absolute Lymphs (auto) 2.02 Nucleated RBC % 0 Differential Comment SCANNED Platelet Estimate ADEQUATE ESR 37 H Sodium 138 Potassium 3.9 Chloride 101 Carbon Dioxide 23.5 Anion Gap 14 BUN 30 H Creatinine 1.01 Estim Creat Clear Calc 58.10 Est GFR (MDRD) Non-Af 58 L BUN/Creatinine Ratio 29.8 H Glucose 152 H Lactic Acid 1.7 Calcium 9.6 C-React Prot Ext Range 85.00 H TSH 2.810 Radiography Diagnostic Testing: Clinical Impression(s) from Imaging Studies Foot X-Ray 05/10/25 15:20 IMPRESSION: Profound osteopenia, no demonstrated fracture, please see discussion above Polyarticular arthrosis Calcaneal spurs Soft tissue swelling Reading Location: [id number] Discharge Plan Dx/Rx/DC Orders Clinical Impression: Cellulitis of foot, left, History of diabetes mellitus, Paroxysmal supraventricular tachycardia Disposition Disposition: Acute Care Hospital [facility] Discharge Date/Time: 05/10/25 20:15
[2025-05-10 16:09] LABS: Anion Gap 14 (5-15); BUN 30 mg/dL (4-19); BUN/Creat Ratio 29.8 RATIO (10-20); CRP 85.00 mg/L (0.0-3.0); Calcium,Total 9.6 mg/dL (7.6-11.0); Carbon Dioxide 23.5 mmol/L (21.0-32.0); Chloride 101 mmol/L (98-108); Estimated Creatinine Clearance 58.10 ml/min (50-250); Glucose 152 mg/dL (70-99); Potassium 3.9 mmol/L (3.3-5.1)
[2025-05-10 16:17] LABS: Hematocrit 33.8 % (37-47); Hemoglobin 10.9 g/dL (12.0-15.0); Immature Granulocytes Count 0.090 X10^3/uL (0.0-0.0); Mean Corp Hgb Conc 32.2 g/dL (32-36); Mean Corpuscular Volume 94.4 fL (81-99); Mean Platelet Vol. 10.2 fl (6.2-12.0); NRBC Flagged by Analyzer 0 % (0-5); POSITIVE COUNT YES; Platelet Count 210 K/mm3 (150-450); RBC Distribution Width CV 15.2 % (11.6-14.6); RBC Distribution Width SD 52.8 fl (35.1-43.9); Red Blood Count 3.58 M/mm3 (4.2-5.4); White Blood Count 11.6 K/mm3 (4.4-11.0)
[2025-05-10] MEDS: Piperacil/Tazobactam 4.5 GM in 0.9% Normal Saline (100mL MB+) 100 ML IV (16:49)
[2025-05-10] MEDS: Vancomycin HCl 2,000 MG in 0.9% Normal Saline (500mL Bag) 500 ML 250 MG IV (17:40)
[2025-05-10 17:47] LABS: Differential Indicated SCAN CRITERIA MET
[2025-05-10 17:48] LABS: Differential Comment SCANNED
[2025-05-10] MEDS: DiphenhydrAMINE 50 MG/ML Syringe IV (17:57)
--- NOTE | 2025-05-10 18:44 | PCM.HP.STD ---
HPI - General General Date of Admission: 05/10/25 Date of Service: 05/10/25 Chief Complaint: Left toe pain and swelling [facility] Narrative EDUAR GOMEZ, is a 75-year-old female with a history of SUSAN, depression, hypothyroidism, restless leg syndrome, diabetes, asthma presented [facility] ED 05/10/2025 with worsening pain, redness, and swelling to her left lateral foot over the past 2 days. She is followed by Dr. Geiger and a week ago was in the office for toenail clipping and then over the past 2 days she developed the redness and swelling. In the ED temp 99.2, heart rate 87 with a blood pressure 138/76, respiratory rate 17 and pulse ox 96% on room air. BMP with a BUN of 38 and a creatinine of 1.01, glucose 152, CBC with white blood cell count 11.6, hemoglobin 10.9. TSH within normal limits and lactic acid 1.7. CRP 85 and ESR 37. Foot x-ray with soft tissue swelling. Given patient's symptoms, her history of diabetes and her elevated inflammatory markers c application developer contacted and recommended admission, likely MRI, antibiotics and they will see in consult. Patient received Zosyn and then when vancomycin was running she had episode of red man syndrome, Benadryl given with plans to restart vancomycin at lower rate. Hospitalist contacted for admission. Also of note patient had short bursts of tachycardia with rate 130s to 150s that were completely asymptomatic. ED physician reviewed with sales compensation analyst on-call and it was felt that this was likely brief SVT and no indication for treatment at this time. Patient evaluated bedside. She reports the pain in her lateral left foot and the erythema that began spreading to her foot. She reports she has been tired and fatigued and not moving around much because of the pain. No fevers at home that she notes. Has chronic cough but nothing changed. No changes in her breathing, no chest pain [facility] Medical History History of ESBL Klebsiella pneumoniae infection BiPAP (biphasic positive airway pressure) dependence History of diverticulitis Restless legs MRSA infection Wears glasses Post-menopausal Alcohol use Thyroid disease Arthritis High cholesterol Back pain Injury of head and neck Non-smoker Shortness of breath on exertion History of pain when walking History of echocardiogram Sinus tachycardia by electrocardiogram Anemia Thrombocytopenia Depression Anxiety Osteoarthritis Kidney stones Asthma Hypertension Diabetes Fibromyalgia Foot arch pain COVID-19 Home Medications ?Medication ?Instructions ?Recorded ?Last Taken ?Type fluticasone propionate 50 2 spray NASAL DAILY allergies 12/07/16 05/31/24 History mcg/actuation nasal spray,suspension citalopram 20 mg tablet 20 mg PO QHS DEPRESSION 04/26/21 05/31/24 History levothyroxine 25 mcg tablet 25 mcg PO DAILY thyroid 04/29/21 04/06/24 07:00 History lovastatin 40 mg tablet 40 mg PO QHS cholesterol 04/29/21 05/31/24 History ropinirole 2 mg tablet 2 mg PO QHS RLS 06/25/23 05/31/24 History glucosamine 375 xu-uvrzpzzif-zwk 3 tab PO DAILY 08/02/23 05/31/24 History no1 500 mg-C 15 mg-gianni 0.5 mg tablet (Zuleawtvoql-Ccoilqghavk-XHA Complex) metformin 500 mg tablet 500 mg PO BID 08/02/23 05/31/24 History cranberry fruit 400 mg capsule 400 mg PO DAILY 11/03/23 05/31/24 History vitamin B complex 1 tab PO DAILY 11/23/23 05/31/24 History budesonide 0.5 mg/2 mL suspension 0.5 mg inhalation Q12H PRN PRN 03/23/24 Unknown History for nebulization breathing finerenone 10 mg tablet (Kerendia) 10 mg PO DAILY 05/18/24 05/31/24 History oxycodone-acetaminophen 5 mg-325 1 tab PO Q8H PRN pain 3 days #10 06/01/24 Unknown Rx mg tablet (Percocet) tabs ipratropium bromide 42 mcg (0.06 2 spray intranasal DAILY 06/19/24 Unknown History %) nasal spray levalbuterol tartrate 45 1 puff inhalation Q4H PRN 06/19/24 Unknown History mcg/actuation aerosol inhaler shortness of breath polysaccharide iron complex 150 mg 150 mg PO QDAY 06/19/24 Unknown History iron capsule (Ferrex) vibegron 75 mg tablet (Gemtesa) 75 mg PO QDAY 08/11/24 Unknown History ascorbate calcium (vitamin C) 500 1 g PO DAILY 12/22/24 Unknown History mg tablet coenzyme Q10 100 mg capsule 50 mg PO DAILY 12/22/24 Unknown History (CoQ-10) echinacea 500 mg capsule 1,000 mg PO DAILY 12/22/24 Unknown History melatonin 10 mg capsule 10 mg PO QHS 12/22/24 Unknown History prednisone 20 mg tablet 40 mg (2 x 20 mg) PO DAILY 4 days 01/01/25 Unknown Rx #8 tabs Allergy/AdvReac Type Severity Reaction Status Date / Time cephalexin monohydrate (From Allergy Swelling Verified 01/26/25 14:38 Keflex) ibuprofen Allergy Swelling Verified 01/26/25 14:38 oxaprozin (From Daypro) Allergy Swelling Verified 01/26/25 14:38 tramadol HCl (From Ultram) Allergy Swelling Verified 01/26/25 14:38 albuterol AdvReac Intermediate Other Verified 01/26/25 14:38 celecoxib (From Celebrex) AdvReac DIZZY AND Verified 01/26/25 14:38 HURTS AROUND MY LIVER Family History Other Diabetes Hypertension Surgical History Hx of bilateral cataract extraction History of cystoscopy Hx of umbilical hernia repair History of carpal tunnel surgery of left wrist Hx of tonsillectomy Hx of colonoscopy History of ureter stent Social History household members: children housing: house Smoking Status: Never smoker alcohol intake: never substance use type: does not use ROS ROS Narrative General: Denies fever/chills but currently does feel quite cold HENT: Denies headache, denies stuffy nose, denies sore throat EYES: Denies changes in vision Resp: D some chronic cough, denies shortness of breath Cardiac: Denies chest pain GI: Denies abdominal pain, denies changes in bowel, denies nausea/vomiting : Denies changes in urination Extremity: Denies swelling MSK: Some generalized weakness and fatigue Neuro: Denies any new numbness/tingling Heme: Denies any bleeding or bruising Skin: Erythema on left pinky toe going up towards foot Psychiatric: No complaints voiced Vital Signs Vital Signs Vital Signs: 05/10/25 14:51 05/10/25 14:56 05/10/25 15:56 Temperature 99.2 F H 99.2 F H 99.1 F Temperature Source Oral Oral Oral Pulse Rate 87 79 81 Respiratory Rate 17 20 H 20 H Blood Pressure 138/76 H 114/51 L 151/125 H Blood Pressure Mean 96 72 133 Pulse Ox 96 99 95 Oxygen Delivery Method Room Air Room Air Room Air Weight Weight: 119 kg Body Mass Index (BMI) 47.9 Physical Exam Narrative General: Alert, oriented HEENT: Atraumatic, normocephalic Eyes: Anicteric, normal conjunctiva, extraocular movements grossly intact Neck: Supple Respiratory: Clear to auscultation bilaterally, normal respiratory effort Cardiovascular: Regular rate and rhythm GI: Soft, nontender, nondistended Extremities: No significant pitting edema Musculoskeletal: Moving all extremities Neuro: No overt focal neurological deficits Skin: Erythema of left fifth toe going on to the dorsum and wrapping around to the bottom, tenderness more at base of second metatarsal, no open or draining areas Psych: Cooperative Results Lab / Micro Data 05/10/25 14:55 05/10/25 14:55 Labs: Laboratory Results - last 24 hr 05/10/25 14:55: WBC 11.6 H, RBC 3.58 L, Hgb 10.9 L, Hct 33.8 L, MCV 94.4, MCH 30.4, MCHC 32.2, RDW Std Deviation 52.8 H, RDW Coeff of Cecil 15.2 H, Plt Count 210, MPV 10.2, Immature Gran % (Auto) 0.800, Neut % (Auto) 68.1, Lymph % (Auto) 17.4 L, [place] % (Auto) 6.7, Eos % (Auto) 6.7 H, Baso % (Auto) 0.3, Absolute Neuts (auto) 7.9 H, Absolute Lymphs (auto) 2.02, Nucleated RBC % 0, Differential Comment SCANNED, Platelet Estimate ADEQUATE, ESR 37 H, Sodium 138, Potassium 3.9, Chloride 101, Carbon Dioxide 23.5, Anion Gap 14, BUN 30 H, Creatinine 1.01, Estim Creat Clear Calc 58.10, Est GFR (MDRD) Non-Af 58 L, BUN/Creatinine Ratio 29.8 H, Glucose 152 H, Lactic Acid 1.7, Calcium 9.6, C-React Prot Ext Range 85.00 H, TSH 2.810 Imaging Radiology Impression Foot X-Ray 05/10/25 15:20 IMPRESSION: Profound osteopenia, no demonstrated fracture, please see discussion above Polyarticular arthrosis Calcaneal spurs Soft tissue swelling Reading Location: [facility] Assessment & Plan Assessment/Plan (1) Diabetic foot infection: PLAN: Plan # Cellulitis of foot in diabetic patient -Elevated ESR, CRP -X-ray of foot only showed soft tissue swelling ? Continue IV antibiotics ? Podiatry consult - Will order MRI # Intermittent tachycardia -Patient has intermittently had heart rates up to 140s/150?s with narrow complex tachycardia that would start and stop quickly, suspected to be slow SVT. EKG right after episode with sinus rhythm with first-degree AV block. Patient asymptomatic during those events -Monitor on telemetry -Echocardiogram -TSH 2.81 - If further episodes or persistent may need to start beta-rivera or consider cardiology consult #Type 2 diabetes mellitus -Glucose checks and sliding scale insulin - Will check A1c in the a.m. #Hypothyroidism -Continue Synthroid #SUSAN -Continue home NIPPV if applicable #Depression/anxiety -Continue home medications # Restless leg syndrome -continue patient's home medication regimen # History of asthma - Budesonide inhaler as needed #Morbid obesity -BMI documented as 48 kg/m? at time of admission -Complicates treatment, prognosis, outcomes -Recommend weight loss and lifestyle changes #DVT ppx: Lovenox SQ twice daily Holly Lopez MD Charges/Coding Visit Charges Inpatient E&M: 53009 Init Hosp L2
--- OUTSIDE RECORDS SUMMARY | 2025-05-10 20:29 | XMS RPT_ITS | CCD ---
Author Organization [facility] Care Team Providers Care Manager Pacu Name Role Phone Dr. Corby Heller Chi Primary Care Provider Dr. Rob Ruiz Attending Provider Corby Heller Chi Primary Care Provider CORBY HELLER CHI Primary Care Unavailable GRISEL VILLANUEVA Attending Unavailable Dr. Corby Heller Chi Primary Care Provider [phone] Reji Morillo Emergency Provider Dr. Clementine Prieto Admit Provider Dr. Clementine Prieto Attending Provider Dr. Clementine Prieto Other Provider Dr. Juan Cerda Attending Provider Dr. Bertram Chatterjee Attending Provider Dr. Bertram Chatterjee Other Provider Dr. Lucas Clemons Other Provider Dr. Josh Petersen Other Provider Unavailable Dr. Conner Marie Other Provider Dr. Cameron Almazan Other Provider Unavailab Ibarra TELEPHONE APPOINTMENT CLERK, TELEPHONE APPOINTMENT CLERK-C Rhonda Other Provider Dr. Zenon Martinez Other Provider Dr. Levi Ramirez Attending Provider Dr. Zenon Martinez Attending Provider Dr. Alonso Bautista Attending Provider Dr. Alosno Bautista Other Provider Dr. Alonso Bautista Referring Provider Dr. Corby Heller Chi Primary Care Provider Dr. Reji Morillo Emergency Provider Dr. Clementine Prieto Admit Provider Dr. Clementine Prieto Attending Provider Dr. Clementine Prieto Other Provider Dr. Juan Cerda Attending Provider Dr. Bertram Chatterjee Attending Provider Dr. Bertram Chatterjee Other Provider Dr. Lucas Clemons Other Provider Dr. Josh Petersen Other Provider Unavailable Dr. Conner Marie Other Provider Dr. Cameron Almazan Other Provider Unavailab thuy Victoria TELEPHONE APPOINTMENT CLERK, TELEPHONE APPOINTMENT CLERK-C Rhonda Other Provider Dr. Zenon Martinez Other Provider Dr. Alonso Bautista Referring Provider Dr. Levi Ramirez Attending Provider Dr. Zenon Martinez Attending Provider Dr. Alonso Bautista Attending Provider Dr. Alonso Bautista Other Provider Arron RAY, Dr. Corby Juárez Primary Care Provider [phone] Arron RAY, Dr. Corby Juárez Referring Provider Shana Vicente Attending Provider Werner RAY, Dr. Salazar Attending Provider Dr. Marie Caldera MD Referring Provider Arron RAY, Dr. Corby Juárez Attending Provider Arron RAY, Dr. Corby Juárez Primary Care Provider Arron RAY, Dr. Corby Juárez Referring Provider Raghu RAY, Dr. Rivas Attending Provider Raghu RAY, Dr. Rivas Referring Provider Lucian RAY, Dr. Fernandes Emergency Provider Arron RAY, Dr. Corby Juárez Primary Care Provider Werner RAY, Dr. Salazar Attending Provider Werner RAY, Dr. Salazar Referring Provider Lucian RAY, Dr. Fernandes Attending Provider Arron RAY, Dr. Corby Juárez Primary Care Provider Pattie CABRERA, Dr. Krueger Attending Provider Pattie CABRERA, Dr. Krueger Emergency Provider Sultana RAY, Dr. Rivas Attending Provider Sultana RAY, Dr. Rivas Referring Provider Conner CABRERA, Dr. Blanco Attending Provider Conner CABRERA, Dr. Blanco Other Provider Arron, Corby Chi Primary Care Unavailable Rob Krishnamurthy Referring Unavailable Rob Krishnamurthy Attending Unavailable Arron, Corby Chi Primary Care Unavailable Arron, Corby Chi Attending Unavailable Arron, Corby Chi Primary Care Unavailable Marie Caldera Attending Unavailable Marie Caldera Referring Unavailable Ryann Murrieta Attending Unavailable Arron, Corby Chi Referring Unavailable Arron, Corby Chi Primary Care Unavailable Shana Hancock Attending Unavailable Arron, Corby Chi Referring Unavailable Arron, Corby Chi Primary Care Unavailable Evans Blankenship Attending Unavailable Arron, Corby Chi Primary Care Unavailable Rob Krishnamurthy Referring Unavailable Rob Krishnamurthy Attending Unavailable Arron, Corby Chi Primary Care Unavailable Rob Krishnamurthy Referring Unavailable Rob Krishnamurthy Attending Unavailable Arron, Corby Chi Primary Care Unavailable Arron, Corby Chi Primary Care Unavailable Arron, Corby Chi Attending Unavailable Bella Prieto Consulting Unavailable Arron, Corby Chi Primary Care Unavailable Arron, Corby Chi Attending Unavailable Arron, Corby Chi Primary Care Unavailable Arron, Corby Chi Attending Unavailable Arron, Corby Chi Primary Care Unavailable Marie Caldera Attending Unavailable EnedinakiMarie Referring Unavailable WyneskiMarie Attending Unavailable Arron, Corby Chi Primary Care Unavailable WyneskiMarie Referring Unavailable Arron, Corby Chi Referring Unavailable Arron, Corby Chi Primary Care Unavailable Arron, Corby Chi Attending Unavailable Bella Prieto Consulting Unavailable Bella Prieto Attending Unavailable Arron, Corby Chi Referring Unavailable Arron, Corby Chi Primary Care Unavailable Dom Epstein Attending Unavailable Arron, Corby Chi Primary Care Unavailable SiskaRob Attending Unavailable SiskaRob Referring Unavailable Arron, Corby Chi Primary Care Unavailable Arron, Corby Chi Primary Care Unavailable Rob Krishnamurthy Referring Unavailable Raghu, Rob Attending Unavailable Arron, Corby Chi Primary Care Unavailable Raghu, Rob Referring Unavailable Raghu, Rob Attending Unavailable Raghu, Rob Referring Unavailable Raghu, Rob Attending Unavailable Arron, Corby Chi Primary Care Unavailable Rob Krishnamurthy Referring Unavailable RaghuRob Attending Unavailable Arron, Corby Chi Primary Care Unavailable Arron, Corby Chi Primary Care Unavailable Arron, Corby Chi Attending Unavailable EnedinakiMarie Referring Unavailable Arron, Corby Chi Primary Care Unavailable EnedinakiMarie Attending Unavailable Arron, Corby Chi Primary Care Unavailable Arron, Corby Chi Attending Unavailable Arron, Corby Chi Referring Unavailable Siska, Rob Attending Unavailable Arron, Corby Chi Referring Unavailable Arron, Corby Chi Primary Care Unavailable Arron, Corby Chi Primary Care Unavailable Marie Caldera Attending Unavailable Marie Caldera Referring Unavailable SiskaRob Attending Unavailable Arron, Corby Chi Referring Unavailable Arron, Corby Chi Primary Care Unavailable Arron, Corby Chi Primary Care Unavailable Shana Hancock Attending Unavailable Arron, Corby Chi Referring Unavailable Arron, Corby Chi Primary Care Unavailable Shana Hancock Attending Unavailable Arron, Corby Chi Referring Unavailable Arron, Corby Chi Referring Unavailable Arron, Corby Chi Primary Care Unavailable Shana Hancock Attending Unavailable Allergies Allergy Classification Reported Allergen(s) Allergy Type Date of Onset Reaction(s) Facility (20 sources) celecoxib; Translations: [CELECOXIB] Drug Allergy 2 Shortness of Breath [facility] Comment on above: DIZZY AND HURTS CELESTINO UND MY LIVER (20 sources) Cephalexin; Translations: [cephalexin monohydrate] Drug Allergy 1 Swelling [facility] (20 sources) Ibuprofen; Translations: [IBUPROFEN] Drug Allergy 2 Other: See Comments [facility] Work Phone: Comment on above: STATES CAN TAKE LOW DOSES ONLY (20 sources) oxaprozin; Translations: [OXAPROZIN] Drug Allergy 2 Shortness of Breath [facility] (20 sources) traMADol; Translations: [TRAMADOL HCL] Drug Allergy 2 Shortness of Breath [facility] (2 sources) Aspirin; Translations: [ASPIRIN] Drug Allergy 2 Other: See Comments [facility] (2 sources) Cephalexin; Translations: [CEPHALEXIN] Drug Allergy 2 Shortness of Breath [facility] (2 sources) Naproxen; Translations: [NAPROXEN SODIUM] Drug Allergy 2 Other: See Comments [facility] (11 sources) Albuterol Drug Allergy 4 Other [facility] Comment on above: shaking all over (1 source) Albuterol Drug Allergy 5 [facility] (1 source) celecoxib Drug Allergy 5 [facility] (1 source) Ibuprofen Drug Allergy 5 [facility] (1 source) oxaprozin Drug Allergy 5 [facility] Medications Current Medications Medication Drug Class(es) Dates Sig (Normalized) Sig (Original) acetaminophen 500 mg oral tablet (20 sources) Start: 07-14-2023 take 1000 mg by mouth every eight hours Acetaminophen Active 1000 MG PO EVERY 8 HOURS 0 July 14, 2023 12:00am Start: 06-30-2023 End: 07-14-2023 take 1-10 tablets by mouth every six hours as needed for pain Acetaminophen 325 mg Tablet Discontinued 650 mg PO EVERY 6 HOURS NEEDED as needed for Pain 1-10 Or Fever>100.7 0 June 30, 2023 12:00am July 14, 2023 7:32pm Start: 06-30-2023 End: 07-14-2023 take 650 mg by mouth every six hours as needed Acetaminophen Discontinued 650 MG PO EVERY 6 HOURS NEEDED 0 June 30, 2023 12:00am July 14, 2023 7:32pm acetaminophen 325 mg / oxyCODONE hydrochloride 5 mg oral tablet (20 sources) Opioid Agonist Start: 04-06-2024 End: 06-01-2024 take 1 tablet by mouth every eight hours as needed for pain Oxycodone-Acetaminophen (Percocet) 5-325 mg tablet Active 1 {tbl} PO Q8H as needed for pain 10 3 June 01, 2024 Start: 11-25-2023 End: 03-23-2024 Oxycodone-Acetaminophen (Per cocet) 5-325 mg tablet Discontinued 1 {tbl} PO Q8H as needed for pain 10 January 27, 2024 March 23, 2024 2:08pm Start: 08-05-2023 take 1 tablet by abdelrahman th every eight hours Oxycodone-Acetaminophen (Percocet) 5-325 mg tablet Active 1 TABLET PO Q8H 9 3 August 05, 2023 Start: 03-28-2020 End: 03-31-2020 Oxycodone-Acetaminophen 1 TA BLET tablet Discontinued 1 {tbl} PO EVERY 6 HOURS NEEDED as needed for Pain 12 March 28, 2020 March 30, 2020 12:00am March 31, 2020 12:02am Start: 03-28-2020 End: 03-31-2020 take 1 tablet by mouth every six hours as needed Oxycodone-Acetaminophen Discontinued 1 TABLET PO EVERY 6 HOURS NEEDED 12 March 28, 2020 March 31, 2020 12:02am Albuterol Sulfate (20 sources) beta2-Adrenergic Agonist Start: 12-07-2016 take 1 puff(s) by inhalation every six hours as needed Albuterol Sulfate Active 1 - 2 PUFF INHALATION EVERY 6 HOURS NEEDED December 07, 2016 9:10am Start: 12-07-2016 End: 06-30-2023 take 1 puff(s) by inhalation every six hours as needed Albuterol Sulfate Discontinued 1 - 2 PUFF INHALATION EVERY 6 HOURS NEEDED December 06, 2016 11:00pm June 30, 2023 9:34am Start: 12-07-2016 End: 06-30-2023 take 1 puff(s) by inhalation every six hours as needed Albuterol Sulfate Discontinued 1 - 2 PUFF INHALATION EVERY 6 HOURS NEEDED December 07, 2016 12:00am June 30, 2023 10:34am Start: 12-07-2016 take 1 puff(s) by in halation every six hours as needed Albuterol Sulfate Active 1 - 2 PUFF INHALATION EVERY 6 HOURS NEEDED December 06, 2016 11:00pm Start: 12-07-2016 take 1 puff(s) by in halation every six hours as needed Albuterol Sulfate Active 1 - 2 PUFF INHALATION EVERY 6 HOURS NEEDED December 07, 2016 12:00am budesonide 0.25 mg/ml inhalation suspension (20 sources) Corticosteroid Start: 06-30-2023 End: 03-23-2024 take 0.5 mg by inhalation every twelve hours as needed Budesonide 0.5 mg/2 mL Suspension For Nebulization Active 0.5 mg INHALATION EVERY 12 HOURS NEEDED as needed for breathing March 23, 2024 12:00am calcium ascorbate 500 mg oral tablet (10 sources) Start: 12-22-2024 take 1 g by mouth once daily Ascorbate Calcium (Vitamin C) 500 mg tablet Active 1 g PO DAILY December 22, 2024 12:00am citalopram 20 mg oral tablet (20 sources) Serotonin Reuptake Inhibitor Start: 04-26-2021 take 1 tablet by mouth at bedtime Citalopram 20 mg tablet Active 20 mg PO AT BEDTIME April 26, 2021 12:00am Cranberry Fruit (18 sources) Non-Standardized Food Allergenic Extract, Non-Standardized Plant Allergenic Extract Start: 11-03-2023 take 1 capsule by mouth once daily Cranberry Fruit 400 mg capsule Active 400 mg PO DAILY November 03, 2023 1:00am administer with a meal Start: 11-03-2023 take 400 mg by mouth once beatriz y Cranberry Active 400 MG PO DAILY November 03, 2023 1:00am administer with a meal Start: 11-03-2023 take 400 mg by mouth once beatriz y Cranberry Active 400 MG PO DAILY November 03, 2023 12:00am administer with a meal Echinacea (20 sources) Start: 12-22-2024 take 1 capsule by mo ut once daily at mealtime Echinacea 500 mg capsule Active 1000 mg PO DAILY December 22, 2024 12:00am administer with meals Start: 06-25-2023 End: 06-30-2023 take 1 capsule by mouth once daily at mealtime Echinacea 500 mg capsule Discontinued 500 mg PO DAILY June 25, 2023 12:00am June 30, 2023 10:34am administer with meals Start: 06-25-2023 End: 06-30-2023 take 500 mg by mouth once daily at mealtime Echinacea Discontinued 500 MG PO DAILY June 24, 2023 11:00pm June 30, 2023 9:34am administer with meals Start: 06-25-2023 End: 06-30-2023 take 500 mg by mouth once daily at mealtime Echinacea Discontinued 500 MG PO DAILY June 25, 2023 12:00am June 30, 2023 10:34am administer with meals Finerenone (11 sources) Start: 05-18-2024 take 1 tablet by mouth once daily Finerenone (Kerendia) 10 mg tablet Active 10 mg PO DAILY May 18, 2024 12:00am 120 actuat fluticasone propionate 0.044 mg/actuat metered dose inhaler (20 sources) Corticosteroid Start: 04-29-2021 take 1 puff(s) by inhalation once daily Fluticasone Propionate (Flovent Hfa) 44 mcg/actuation HFA aerosol inhaler Active 1 PUFF INHALATION DAILY April 29, 2021 12:00am Start: 12-07-2016 Fluticasone Pr opionate 1 SPRAY spray,suspension Active 2 NMA NASAL DAILY December 07, 2016 12:00am Start: 12-07-2016 Fluticasone Pr opionate Active 2 SPRAY NASAL DAILY December 07, 2016 12:00am take 1 spray(s) nasa l route once daily fluticasone 50 mcg/actuation nasal spray Use 1 [place] in each nostril once daily. 0 Active Comment on above: Use 1 [place] in each nostril once daily. Phmnrljq-Etyqt-Ztd0-C-M ang-Bor (Reapfovhgnn-Toger-Bhe Complex) 247-867-99-0.5 mg tablet (19 sources) Start: 08-02-2023 Ubglgqnz-Nxcuk-Jhi7-C-M ang-Bor (Veauxwuhbdi-Llwqw-Ibd Complex) 989-464-68-0.5 mg tablet Active 3 {tbl} PO DAILY August 02, 2023 1:00am Start: 08-02-2023 take 375-500 tablets by mouth once daily Vhqdgqek-Qijvs-Idw8-C-Gianni-Bor (Rdoaamvmzhh-Qxbva-Cvt Complex) 070-055-19-0.5 mg tablet Active 3 TABLET PO DAILY August 02, 2023 1:00am Start: 08-02-2023 take 375-500 tablets by mouth once daily Lynurqri-Rodpr-Cko5-C-Gianni-Bor (Kbmowulpznx-Vvyyu-Vms Complex) 948-522-64-0.5 mg tablet Active 3 TABLET PO DAILY August 02, 2023 12:00am ipratropium bromide 0.042 mg/actuat metered dose nasal spray (11 sources) Anticholinergic Start: 06-19-2024 Ipratropium Br omide 42 mcg (0.06 %) spray,non-aerosol Active 2 NMA INTRANASAL DAILY June 19, 2024 12:00am Start: 06-19-2024 Ipratropium Br omide 42 mcg (0.06 %) spray,non-aerosol Active INTRANASAL June 19, 2024 12:00am 200 actuat levalbuterol 0.045 mg/actuat metered dose inhaler (11 sources) beta2-Adrenergic Agonist Start: 06-19-2024 Levalbuterol Tartrate 45 mcg/actuation HFA aerosol inhaler Active 1 NMA INHALATION Q4H as needed for shortness of breath June 19, 2024 12:00am levothyroxine sodium 0.025 mg oral tablet (20 sources) l-Thyroxine Start: 04-29-2021 take 1 tablet by mouth once daily Levothyroxine 25 mcg tablet Active 25 ug PO DAILY April 29, 2021 12:00am LEVOTHYROXINE SO DIUM (LEVOTHYROXINE ORAL) Take by mouth. 0 Active Comment on above: Take by mouth. lovastatin 40 mg oral tablet (20 sources) HMG-CoA Reductase Inhibitor Start: 04-29-2021 take 1 tablet by mouth at bedtime Lovastatin 40 mg tablet Active 40 mg PO AT BEDTIME April 29, 2021 12:00am Comment on above: Take 40 mg by mouth daily at bedtime. melatonin 10 mg oral capsule (11 sources) Start: 12-22-2024 take 1 capsule by mouth at bedtime Melatonin 10 mg capsule Active 10 mg PO AT BEDTIME December 22, 2024 12:00am take 1 capsule by mouth once serg ly melatonin 10 mg cap Take 1 capsule by mouth once daily. 0 Active Comment on above: Take 1 capsule by [facility] once daily. metFORMIN hydrochloride 500 mg oral tablet (20 sources) Biguanide Start: 08-02-2023 take 1 tablet by mouth twice daily Metformin 500 mg tablet Active 500 mg PO TWICE A DAY August 02, 2023 1:00am take 1 tablet by mouth three brie es daily metFORMIN 500 mg tablet Take 500 mg by mouth three times daily. 0 Active Comment on above: Take 500 mg by mouth three times daily. polysaccharide iron complex 150 mg oral capsule (15 sources) Start: 06-19-2024 Polysaccharide Iron Complex (Ferrex 150) 150 mg iron capsule Active 150 mg PO daily June 19, 2024 12:00am Start: 07-14-2023 Polysaccharide Iron Complex (Ferrex 150) 150 mg iron Capsule Active 150 MG PO DAILY July 13, 2023 11:00pm predniSONE 20 mg oral tablet (20 sources) Start: 01-01-2025 take 2 tablets by mouth once daily Prednisone 20 mg tablet Active 40 mg PO DAILY 04 30January 01, 2025 12:00am Start: 07-12-2022 End: 06-25-2023 take 1 tablet by mouth once daily Prednisone 50 mg tablet Discontinued 50 mg PO DAILY July 12, 2022 12:00am June 25, 2023 4:35pm rOPINIRole 2 mg oral tablet (20 sources) Nonergot Dopamine Agonist Start: 06-25-2023 take 1 tablet by mouth at bedtime Ropinirole 2 mg tablet Active 2 mg PO AT BEDTIME June 25, 2023 12:00am Start: 04-26-2021 rOPINIRole (RE QUIP) 0.5 mg tablet Take by mouth. TAKING 2MG 0 04/26/2021 Active Start: 04-26-2021 End: 06-25-2023 take 1 tablet by mouth at bedtime Ropinirole (Requip) 0.5 mg Tablet Discontinued 0.5 mg PO AT BEDTIME April 26, 2021 12:00am June 25, 2023 4:35pm Comment on above: Take by mouth. TAKIN G 2MG ubidecarenone 100 mg oral capsule (20 sources) Start: 12-22-2024 Coenzyme Q10 (Coq-10) 100 mg capsule Active 50 mg PO DAILY December 22, 2024 12:00am Start: 08-02-2023 End: 06-19-2024 Coenzyme Q10 (Co Q-10) 100 m g capsule Discontinued 50 mg PO DAILY August 02, 2023 1:00am June 19, 2024 4:27pm Start: 08-02-2023 Coenzyme Q10 ( Co Q-10) 100 mg capsule Active 100 MG PO DAILY August 02, 2023 12:00am Vibegron (11 sources) Start: 08-11-2024 take 1 tablet by abdelrahman th once daily Vibegron (Gemtesa) 75 mg tablet Active 75 mg PO daily August 11, 2024 1:00am Vitamin B Complex (5 sources) Start: 11-23-2023 take 1 tablet by abdelrahman th once daily Vitamin B Complex Active 1 TABLET PO DAILY November 23, 2023 1:00am Start: 11-23-2023 take 1 tablet by mouth once da jayde Vitamin B Complex Active 1 TABLET PO DAILY November 23, 2023 12:00am Vitamin B Complex tablet (11 sources) Start: 11-23-2023 Vitamin B Comp david tablet Active 1 {tbl} PO DAILY November 23, 2023 1:00am Completed/Discontinued Medications Medication Drug Class(es) Dates Sig (Normalized) Sig (Original) acetaminophen 325 mg / HYDROcodone bitartrate 5 mg oral tablet (20 sources) Opioid Agonist Start: 06-30-2023 End: 07-14-2023 Hydrocodone-Acetami nophen 5-325 mg Tablet Discontinued 1 - 2 {tbl} PO EVERY 6 HOURS NEEDED as needed for Pain Score 4-10 10 June 30, 2023 July 14, 2023 7:33pm Start: 06-30-2023 End: 07-14-2023 take 1 tablet by mouth every six hours as needed Hydrocodone-Acetaminophen Discontinued 1 - 2 TABLET PO EVERY 6 HOURS NEEDED 06 29June 30, 2023 July 14, 2023 7:33pm Albuterol Sulfate 1 PUFF inhaler (11 sources) Start: 12-07-2016 End: 06-30-2023 Albuterol Sulfate 1 PUFF inh aler Discontinued 1 - 2 NMA INHALATION EVERY 6 HOURS NEEDED as needed for Asthma December 07, 2016 12:00am June 30, 2023 10:34am Arthritis Pain Compound (20 sources) Start: 06-30-2023 End: 06-30-2023 Arthritis Pain Compound Discontinued 0 NMA topical Q8H as needed 0 June 30, 2023 12:00am June 30, 2023 2:59pm Start: 06-30-2023 End: 07-14-2023 Arthritis Pain Compound Disc ontinued 1 NMA TOPICAL Q8H as needed for pain June 30, 2023 12:00am July 14, 2023 7:33pm Start: 06-30-2023 End: 07-14-2023 Arthritis Pain Compound Disc ontinued 1 APPLIC TOPICAL Q8H June 30, 2023 12:00am July 14, 2023 7:33pm Start: 06-30-2023 End: 06-30-2023 Arthritis Pain Compound Disc ontinued 0 CLICK topical Q8H 0 June 29, 2023 11:00pm June 30, 2023 1:59pm Start: 06-30-2023 End: 07-14-2023 Arthritis Pain Compound Disc ontinued 1 CLICK TOPICAL Q8H June 29, 2023 11:00pm July 14, 2023 6:33pm Start: 06-30-2023 End: 06-30-2023 Arthritis Pain Compound Disc ontinued 0 CLICK topical Q8H 0 June 30, 2023 12:00am June 30, 2023 2:59pm Start: 06-30-2023 End: 07-14-2023 Arthritis Pain Compound Disc ontinued 1 CLICK TOPICAL Q8H June 30, 2023 12:00am July 14, 2023 7:33pm ascorbic acid 500 mg oral tablet (20 sources) Vitamin C Start: 08-02-2023 End: 06-19-2024 take 1 tablet by mouth once daily Ascorbic Acid (Vitamin C) (C-500) 500 mg tablet Discontinued 500 mg PO DAILY August 02, 2023 1:00am June 19, 2024 4:31pm take 1 tablet by mouth twice serg ly ascorbic acid, vitamin C, (VITAMIN C) 500 mg tablet Take 500 mg by mouth twice daily. 0 Active Comment on above: Take 500 mg by mouth twice daily. B INFANTIS/B ANI/B LATONYA/B BIFID (PROBIOTIC 4X ORAL) (1 source) B INFANTIS/B ANI /B LATONYA/B BIFID (PROBIOTIC 4X ORAL) Take by mouth. 0 Active Comment on above: Take by mouth. benzonatate 200 mg oral capsule (12 sources) Non-narcotic Antitussive Start: End: take 1 capsule by mouth three times daily Benzonatate 200 mg capsule Discontinued 200 mg PO THREE TIMES A DAY June 19, 2024 12:00am December 22, 2024 12:31pm Start: 07-14-2022 benzonatate (T ESSALON PERLE) 100 mg capsule calcium carbonate 1250 mg / cholecalciferol 200 unt oral tablet (1 source) Vitamin D take 1 tablet by mouth once daily qxekexn-gttvknamf-byxhjeh D3 500 mg-5 mcg (200 unit) per tablet Take 1 tablet by mouth once daily. 0 Active Comment on above: Take 1 tablet by [facility] once daily. cefdinir 300 mg oral capsule (20 sources) Cephalosporin Antibacterial Start : 06-30 End: 07-14 take 1 capsule by mouth every twelve hours Cefdinir 300 mg Capsule Discontinued 300 mg PO EVERY 12 HOURS 7 June 30, 2023 12:00am July 14, 2023 7:33pm continue for 7 doses starting evening 06/30/23 cholecalciferol 0.01 mg oral capsule (1 source) Vitamin D take 1 capsule by mouth once daily cholecalciferol, vitamin D3, 10 mcg (400 unit) cap Take 400 Units by mouth once daily. 0 Active Comment on above: Take 400 Units by mo [facility] once daily. cinnamon bark 1000 mg oral capsule (1 source) take 1000 mg by mouth twice daily CINNAMON BARK (CINNAMON ORAL) Take 1,000 mg by mouth twice daily. 0 Active Comment on above: Take 1,000 mg by abdelrahman twice daily. ciprofloxacin 250 mg oral tablet (11 sources) Quinolone Antimicrobial Start : 04-06 End: 05-18 take 1 tablet by mouth twice daily Ciprofloxacin Hcl (Cipro) 250 mg tablet Discontinued 250 mg PO TWICE A DAY 6 April 06, 2024 12:00am May 18, 2024 1:12pm COMPOUNDED PRESCRIPTION (1 source) COMPOUNDED PRESC RIPTION Spirolina 0 Active Comment on above: Spirolina cyclobenzaprine hydrochloride 10 mg oral tablet (1 source) Muscle Relaxant cyclobenzaprine (FLEXERIL) 10 mg tablet Take 10 mg by mouth as needed. 0 Active Comment on above: Take 10 mg by mouth as needed. dextromethorphan hydrobromide 2 mg/ml / guaiFENesin 20 mg/ml oral solution (20 sources) Uncompetitive F-ztravr-K-[place]parta te Receptor Antagonist, Sigma-1 Agonist Start : 06-30 End: 07-14 take 1 mL by mouth every six hours as needed for cough Dextromethorphan-Guaifenesin 10-100 mg/5 mL Syrup Discontinued 10 mL PO EVERY 6 HOURS NEEDED as needed for COUGH 0 June 30, 2023 12:00am July 14, 2023 7:33pm Start: 06-30-2023 End: 07-14-2023 take 1 mL by mouth every six hours as needed Dextromethorphan-Guaifenesin Discontinue d 10 ML PO EVERY 6 HOURS NEEDED 0 June 30, 2023 12:00am July 14, 2023 7:33pm ECHINACEA, BULK, MISC (1 source) ECHINACEA, BULK, MISC In winter 3 times a week. 0 Active Comment on above: In winter 3 times a week. FIBER, HERBAL, ORAL (1 source) take 1 tablet by mouth once daily FIBER, HERBAL, ORAL Take 1 tablet by mouth once daily. 0 Active Comment on above: Take 1 tablet by abdelrahman th once daily. fluconazole 100 mg oral tablet (16 sources) Azole Antifungal Start: 4 End: 4 take 2 tablets by mouth once daily, then take 1 tablet by mouth once daily Fluconazole (Diflucan) 100 mg tablet Discontinued 100 mg PO DAILY 6 November 25, 2023 1:00am March 23, 2024 2:07pm take 2 tabs today and then one daily unitl gone Fluticasone Propionate (Flovent Hfa) 44 mcg/actuation HFA aerosol inhaler (20 sources) Start: End: 3 Fluticasone Propionate (Flovent Hfa) 44 mcg/actuation HFA aerosol inhaler Discontinued 1 NMA INHALATION DAILY April 29, 2021 12:00am June 30, 2023 10:35am Start: 04-29-2021 End: 06-30-2023 take 1 puff(s) by inhalation once daily Fluticasone Propionate (Flovent Hfa) 44 mcg/actuation HFA aerosol inhaler Discontinued 1 PUFF INHALATION DAILY April 28, 2021 11:00pm June 30, 2023 9:35am Start: 04-29-2021 End: 06-30-2023 take 1 puff(s) by inhalation once daily Fluticasone Propionate (Flovent Hfa) 44 mcg/actuation HFA aerosol inhaler Discontinued 1 PUFF INHALATION DAILY April 29, 2021 12:00am June 30, 2023 10:35am garlic preparation 1000 mg oral capsule (1 source) Non-Standardized Food Allergenic Extract Garlic 1,000 mg cap Take by mouth every Wednesday,Wednesday,Wednesday. 0 Active Comment on above: Take by mouth every Wednesday,Wednesday,Wed. gelatin 650 mg oral capsule (1 source) take 2 capsules by mouth once daily Gelatin 650 mg capsule Take 1,300 mg by mouth once daily. 0 Active Comment on above: Take 1,300 mg by mouth once daily. GLUCOSAM HCL/MSM/CHONDRO FRANK A (GLUCOSAMINE [id number] TN ORAL) (1 source) take 1200 mg by mouth once daily GLUCOSAM HCL/MSM/CHONDRO FRANK A (GLUCOSAMINE [id number] ORAL) Take by mouth. 1200 mg daily 0 Active Comment on above: Take by mouth. 1200 mg daily ibuprofen 200 mg oral tablet (19 sources) Nonsteroidal Anti-inflammatory Drug Star t: 03-16 End: 05-29 Ibuprofen (Advil) 200 mg tablet Discontinued 200 mg PO NEEDED August 02, 2023 1:00am June 19, 2024 4:31pm 1 ml ketorolac tromethamine 30 mg/ml injection (4 sources) Nonsteroidal Anti-inflammatory Drug, Cyclooxygenase Inhibitor Star t: 03-16 19 End: 03-16 19 inject 60 mg by intramuscular injection once ketorolac 60 mg/2 mL intramuscular syringe Discontinued 60 MG IM ONCE 2 October 02, 2018 11:32am October 02, 2018 12:27pm L. Acidophilus-L. Rhamnosus (Probiotic) 15 billion cell capsule (18 sources) Star t: 04-15 24 End: 05-29 24 L. Acidophilus-L. Rhamnosus (Probiotic) 15 billion cell capsule Discontinued 1 NMA PO DAILY November 03, 2023 1:00am June 19, 2024 4:31pm Start: 11-03-2023 take 1 capsule by mo ut once daily L. Acidophilus-L. Rhamnosus (Probiotic) 15 billion cell capsule Active 1 CAP PO DAILY November 03, 2023 1:00am Start: 11-03-2023 take 1 capsule by mo ut once daily L. Acidophilus-L. Rhamnosus (Probiotic) 15 billion cell capsule Active 1 CAP PO DAILY November 03, 2023 12:00am losartan potassium 100 mg oral tablet (11 sources) Angiotensin 2 Receptor Dinh Start: 06-19-2024 End: 12-22-2024 take 1 tablet by mouth once daily Losartan 100 mg tablet Discontinued 100 mg PO daily June 19, 2024 12:00am December 22, 2024 12:30pm lutein 20 mg oral capsule (16 sources) Start: 11-23-2023 End: 06-19-2024 take 1 capsule by mouth once daily Lutein 20 mg capsule Discontinued 20 mg PO DAILY November 23, 2023 1:00am June 19, 2024 4:31pm give with meal/snack Magnesium (1 source) take 1 tablet by mouth once daily Magnesium 250 mg tab Take 250 mg by mouth once daily. 0 Active Comment on above: Take 250 mg by mouth once daily. MULTIVITAMIN ORAL (1 source) MULTIVITAMIN ORA L Take by mouth. 0 Active Comment on above: Take by mouth. nitrofurantoin, macrocrystals 25 mg / nitrofurantoin, monohydrate 75 mg oral capsule (20 sources) Nitrofuran Antibacterial Start: 11-25-2023 End: 03-23-2024 take 1 capsule by mouth twice daily at mealtime Nitrofurantoin Monohyd/M-Cryst (Macrobid) 100 mg capsule Discontinued 100 mg PO TWICE A DAY November 25, 2023 1:00am March 23, 2024 2:09pm must administer with a meal/food Start: 07-14-2023 take 1 capsule by [facility] twice daily at mealtime Nitrofurantoin Monohyd/M-Cryst (Macrobid) 100 mg capsule Active 100 MG PO TWICE A DAY August 05, 2023 12:00am must administer with a meal/food nystatin 100 unt/mg topical ointment (20 sources) Polyene Antifungal Start: 11-25-2023 End: 03-23-2024 Nystatin 100,000 unit/gram ointment Discontinued 1 NMA TOPICAL TWICE A DAY November 25, 2023 1:00am March 23, 2024 2:09pm apply to areas of redness in all skin folds twice daily Start: 11-25-2023 Nystatin Activ e 1 APPLIC TOPICAL TWICE A DAY November 25, 2023 1:00am apply to areas of redness in all skin folds twice daily Start: 06-30-2023 End: 07-14-2023 Nystatin (Nyamyc) 100,000 un it/gram Powder Discontinued 1 NMA TOPICAL TWICE A DAY 0 June 30, 2023 12:00am July 14, 2023 7:33pm Please contact the information source for Protocol details. Start: 06-30-2023 End: 07-14-2023 Nystatin (Nyamyc) 100,000 un it/gram Powder Discontinued 1 APPLIC TOPICAL TWICE A DAY 0 June 30, 2023 12:00am July 14, 2023 7:33pm olmesartan medoxomil 20 mg oral tablet (1 source) Angiotensin 2 Receptor Dinh take 1 tablet by mouth once daily olmesartan (BENICAR) 20 mg tablet Take 20 mg by mouth once daily. 0 Active Comment on above: Take 20 mg by mouth once daily. phenazopyridine hydrochloride 100 mg oral tablet (20 sources) Start: 2023 End: 2024 take 1 tablet by mouth three times daily Phenazopyridine 100 mg tablet Discontinued 100 mg PO THREE TIMES A DAY June 01, 2024 12:00am December 22, 2024 12:31pm pioglitazone 30 mg oral tablet (20 sources) Peroxisome Proliferator Receptor alpha Agonist, Peroxisome Proliferator Receptor gamma Agonist, Thiazolidinedione Start: 2022 End: 2024 take 1 tablet by mouth once daily Pioglitazone 30 mg tablet Discontinued 30 mg PO DAILY June 25, 2023 12:00am December 22, 2024 12:32pm microencapsulated potassium chloride 20 meq extended release oral tablet (20 sources) Start: 2023 End: 2024 Potassium Chloride (Klor-Con M20) 20 mEq tablet,ER particles/crystals Discontinued 20 meq PO daily June 19, 2024 12:00am December 22, 2024 12:32pm Start: 07-14-2023 End: 06-01-2024 Potassium Chloride (Klor-Con M20) 20 mEq Tablet,Er Particles/Crystals Discontinued 20 meq PO DAILY WITH MEALS July 14, 2023 12:00am June 01, 2024 8:00am Start: 04-29-2021 End: 07-14-2023 take 2 capsules by mouth once daily Potassium Chloride 10 mEq capsule, extended release Discontinued 20 meq PO DAILY April 29, 2021 12:00am July 14, 2023 7:33pm Start: 04-29-2021 End: 07-14-2023 take 20 mEq by mouth once daily Potassium Chloride Discontinued 20 MEQ PO DAILY April 29, 2021 12:00am July 14, 2023 7:33pm potassium chlori de ER (K-DUR, KLOR-CON) 20 mEq tablet Take 20 mEq by mouth once daily. 0 Active Comment on above: Take 20 mEq by mouth once daily. sour waldron allergenic extract (19 sources) Non-Standardized Food Allergenic Extract, Non-Standardized Plant Allergenic Extract Start: End: take 1 capsule by mouth once daily Sour Waldron Extract (Tart Waldron Extract) 1,000 mg capsule Discontinued 1000 mg PO DAILY August 02, 2023 1:00am December 22, 2024 12:32pm Start: 08-02-2023 take 1 capsule by mo ut once daily Sour Waldron Extract (Tart Waldron Extract) 1,000 mg capsule Active 1000 mg PO DAILY August 02, 2023 1:00am Start: 08-02-2023 take 1 capsule by mo uth once daily Sour Waldron Extract (Tart Waldron Extract) 1,000 mg capsule Active 1000 MG PO DAILY August 02, 2023 1:00am Start: 08-02-2023 take 1 capsule by mo uth once daily Sour Waldron Extract (Tart Waldron Extract) 1,000 mg capsule Active 1000 MG PO DAILY August 02, 2023 12:00am squxbfh-uxmv-ofmmu-oreg-capr yl 100 mg-150 mg- 50 mg-150 mg cap (1 source) Start: 12-07-2016 lqbsexa-elau-mnlff-oreg-capr yl 100 mg-150 mg- 50 mg-150 mg cap Take 500 mg by mouth. 0 12/07/2016 Active Comment on above: Take 500 mg by mouth . ubiquinol 50 mg oral capsule (1 source) take 50 mg by mouth once daily COQ10, UBIQUINOL, ORAL Take 50 mg by mouth once daily. 0 Active Comment on above: Take 50 mg by mouth once daily. vancomycin 25 mg/ml oral solution (20 sources) Glycop eptide Antiba cteria l Start: 06-30-2023 End: 07-14-2023 Vancomycin (Firvanq) 25 mg/m L Recon Soln Discontinued 125 mg PO EVERY 4 HOURS 0 June 30, 2023 12:00am July 14, 2023 7:34pm continue for 5 days starting 06/30/23 Problems Active Problems Problem Classification Problem Date Documented Date Episodic/Chronic Acute and unspecified renal failure (20 sources) Acute renal failure syndrome; Translations: [Acute kidney failure, unspecified] 07-08-2023 Episodic Asthma (20 sources) Asthma; Translations: [Unspecified asthma, uncomplicated] 06-30-2023 Chronic Comment on above: INHALER Cardiac dysrhythmias (20 sources) ECG: sinus tachycardia; Translations: [Tachycardia, unspecified] 07-08-2023 Episodic Chronic kidney disease (2 sources) Chronic kidney disease; Translations: [Chronic kidney disease, stage 3a] Onset: 12-25-2024 Diabetes mellitus with complications (2 sources) Type 2 diabetes mellitus with diabetic chronic kidney disease; Translations: [Type 2 diabetes mellitus with hyperglycemia] Onset: 02-05-2025 Chronic Diabetes mellitus without complication (20 sources) Diabetes mellitus; Translations: [Type 2 diabetes mellitus without complications] 07-07-2023 Chronic Comment on above: ON MED Diseases of white blood cells (20 sources) Leukocytosis; Translations: [Elevated white blood cell count, unspecified] 07-08-2023 Chronic Essential hypertension (20 sources) Hypertensive disorder; Translations: [Essential (primary) hypertension] Onset: 05-03-2025 06-30-2023 Chronic Comment on above: NO MEDS, RESOLVED Fever of unknown origin (20 sources) Fever; Translations: [Fever, unspecified] 03-29-2020 Episodic Fluid and electrolyte disorders (20 sources) Dehydration; Translations: [Dehydration] Onset: 01-19-2013 01-19-2013 Episodic Genitourinary symptoms and ill-defined conditions (12 sources) Urgent desire to urinate; Translations: [Urgency of urination] Onset: 06-09-2012 06-09-2012 Episodic Intestinal infection (20 sources) Clostridium difficile diarrhea; Translations: [Enterocolitis due to Clostridium difficile, not specified as recurrent] 06-30-2023 Episodic Malaise and fatigue (20 sources) Asthenia; Translations: [Weakness] 07-08-2023 Episodic Mood disorders (20 sources) Depressive disorder; Translations: [Depression] 06-30-2023 Chronic Comment on above: ON MED Mycoses (20 sources) Onychomycosis due to dermatophyte ; Translations: [Tinea unguium] 07-07-2023 Episodic Nutritional deficiencies (1 source) Vitamin D deficiency, unspecified; Translations: [Vitamin D deficiency, unspecified] Onset: 05-03-2025 Chronic Osteoarthritis (20 sources) Osteoarthritis; Translations: [Unspecified osteoarthritis, unspecified site] Onset: 08-11-2024 07-08-2023 Chronic Other connective tissue disease (20 sources) Foot pain; Translations: [Pain in unspecified foot] 04-27-2021 Episodic Other connective tissue disease (20 sources) Chronic pain of right foot; Translations: [Pain in right toe(s)] 07-07-2023 Episodic Other connective tissue disease (20 sources) Chronic pain of left foot; Translations: [Pain in left toe(s)] 07-07-2023 Episodic Other connective tissue disease (6 sources) Pain in left toe(s); Translations: [Pain in limb] 07-15-2023 Episodic Other connective tissue disease (6 sources) Pain in right toe(s); Translations: [Pain in limb] 07-15-2023 Episodic Other diseases of kidney and ureters (1 source) Hydronephrosis with ureteral stricture, not elsewhere classified; Translations: [Hydronephrosis with ureteral stricture, not elsewhere classified] Onset: 05-03-2025 Episodic Other diseases of veins and lymphatics (1 source) Peripheral venous insufficiency; Translations: [Venous insufficiency (chronic) (peripheral)] Episodic Other hereditary and degenerative nervous system conditions (20 sources) Restless legs; Translations: [Restless legs syndrome] 06-30-2023 Chronic Other hereditary and degenerative nervous system conditions (6 sources) Restless legs syndrome; Translations: [Restless legs syndrome (RLS)] 07-15-2023 Chronic Other non-traumatic joint disorders (2 sources) Pain in wrist; Translations: [Pain in left wrist] 01-09-2025 Episodic Other nutritional; endocrine; and metabolic disorders (1 source) Morbid obesity; Translations: [Morbid (severe) obesity due to excess calories] Onset: 06-09-2012 06-09-2012 Chronic Other screening for suspected conditions (not mental disorders or infectious disease) (2 sources) Patient encounter status; Translations: [Encounter for screening for other disorder] Onset: 06-11-2015 06-11-2015 Episodic Other skin disorders (20 sources) Ingrowing nail; Translations: [Ingrowing nail] 07-07-2023 Episodic Other skin disorders (6 sources) Ingrowing nail; Translations: [Ingrowing nail] 07-15-2023 Episodic Other upper respiratory infections (20 sources) Viral upper respiratory tract infection; Translations: [Acute upper respiratory infection, unspecified] 07-20-2022 Episodic Pneumonia (except that caused by tuberculosis or sexually transmitted disease) (20 sources) Left lower zone pneumonia; Translations: [Pneumonia, unspecified organism] 07-08-2023 Episodic Septicemia (except in labor) (20 sources) Septic shock; Translations: [Sepsis, unspecified organism] 07-08-2023 Episodic Thyroid disorders (1 source) Hypothyroidism, unspecified; Translations: [Hypothyroidism, unspecified] Onset: 01-01-2025 Chronic Viral infection (20 sources) Disease caused by 2019-nCoV; Translations: [COVID-19] 04-27-2021 Episodic Past or Other Problems Problem Classification Problem Date Documented Date Episodic/Chronic Calculus of urinary tract (20 sources) Kidney stone; Translations: [Calculus of kidney] Onset: 05-18-2013 05-18-2013 Episodic Neoplasms of unspecified nature or uncertain behavior (7 sources) Neoplasm of uncertain behavior of skin of face; Translations: [Neoplasm of uncertain behavior of skin] Onset: 01-24-2025 01-18-2025 Episodic Comment on above: Left cheek (pearly l esion with keratin center). Lesion approximately 0.5 x 0.5 cm Other non-traumatic joint disorders (3 sources) Pain in right knee; Translations: [Acute pain of right knee] Onset: 01-04-2025 01-09-2025 Episodic Residual codes; unclassified (1 source) Chills (without fever); Translations: [Chills (without fever)] Onset: 07-20-2024 Episodic Urinary tract infections (20 sources) Recurrent urinary tract infection; Translations: [Urinary tract infection, site not specified] Onset: 06-09-2012 06-09-2012 Episodic Results Test Name Value Interpretation Reference Range Facility Bilirubin, Directon 05-03-20 25 Bilirubin.direct [Mass/Vol] 0.15 mg/dL Normal 0.00-0.30 [facility] Comment on above: Performed By: #### L 100.0500, L500.4050 #### [facility] [address] [place], [address] CBC W/Diff, Automatedon Absolute Lymph 2.15 X10 3/uL Normal 0.83-4.51 [facility] Comment on above: Performed By: #### L 100.0500, L500.4050 #### [facility] [address] [place], [address] Absolute Neut 4.6 X10 3/uL Normal 2.0-7.7 [facility] Comment on above: Performed By: #### L 100.0500, [id number] #### [facility] [address] [place], [address] Basophils/100 WBC (Bld) 0.3 % Normal 0-1 [facility] Comment on above: Performed By: #### L 100.0500, [id number] #### [facility] [address] [place], [address] Eosinophils/100 WBC (Bld) 3.9 % Normal 0-5 [facility] Comment on above: Performed By: #### L 100.0500, [id number] #### [facility] [address] [place], [address] Erythrocyte distribution width (RBC) [Ratio] 15.4 % High 11.6-14.6 [facility] Comment on above: Performed By: #### L 100.0500, [id number] #### [facility] [address] [place], [address] Hematocrit (Bld) [Volume fraction] 30.8 % Low 37-47 [facility] Comment on above: Performed By: #### L 100.0500, [id number] #### [facility] [address] [place], [address] Hemoglobin (Bld) [Mass/Vol] 9.8 g/dL Low 12.0-15.0 [facility] Comment on above: Performed By: #### L 100.0500, [id number] #### [facility] [address] [place], [address] IG% 0.300 Normal 0.0-0.9 [facility] Comment on above: Result Comment: IG% - Immature Granulocytes (promyelocytes, myelocytes and metamyelocytes) > 1% indicates that a LEFT SHIFT is Present. Performed By: #### L 100.0500, [id number] #### [facility] [address] [place], [address] Lymphocytes/100 WBC (Bld) 28.6 % Normal 19-41 [facility] Comment on above: Performed By: #### L 100.0500, [id number] #### [facility] [address] [place], [address] MCH (RBC) [Entitic mass] 30.3 pg Normal 27.0-32.0 [facility] Comment on above: Performed By: #### L 100.0500, [id number] #### [facility] [address] [place], [address] MCHC (RBC) [Mass/Vol] 31.8 g/dL Low 32-36 [facility] Comment on above: Performed By: #### L 100.0500, [id number] #### [facility] [address] [place], [address] MCV (RBC) [Entitic vol] 95.4 fL Normal 81-99 [facility] Comment on above: Performed By: #### L 100.0500, [id number] #### [facility] [address] [place], [address] Monocytes/100 WBC (Bld) 6.5 % Normal 0-10 [facility] Comment on above: Performed By: #### L 100.0500, [id number] #### [facility] [address] [place], [address] Neutrophils/100 WBC (Bld) 60.4 % Normal 47-70 [facility] Comment on above: Performed By: #### L 100.0500, [id number] #### [facility] [address] [place], [address] Nucleated RBC (Bld) [#/Vol] 0 10*3/uL Normal 0-5 [facility] Comment on above: Performed By: #### L 100.0500, [id number] #### [facility] [address] [place], [address] Platelet mean volume (Bld) [Entitic vol] 10.7 fL Normal 6.2-12.0 [facility] Comment on above: Performed By: #### L 100.0500, [id number] #### [facility] [address] [place], [address] Platelets (Bld) [#/Vol] 201 10*3/uL Normal 150-450 [facility] Comment on above: Performed By: #### L 100.0500, [id number] #### [facility] [address] [place], [address] RBC (Bld) [#/Vol] 3.23 10*6/uL Low 4.2-5.4 [facility] Comment on above: Performed By: #### L 100.0500, [id number] #### [facility] [address] [place], [address] RDW SD 53.3 fl High 35.1-43.9 [facility] Comment on above: Performed By: #### L 100.0500, [id number] #### [facility] [address] [place], [address] WBC (Bld) [#/Vol] 7.5 10*3/uL Normal 4.4-11.0 [facility] Comment on above: Performed By: #### L 100.0500, [id number] #### [facility] [address] [place], [address] Comprehensive Metabolic Prof [facility] 05-03-2025 Albumin [Mass/Vol] 3.9 g/dL Normal 3.4-4.8 [facility] Comment on above: Order Comment: CC:CM P TO DR. TENZIN PRIETO Performed By: #### L 100.0500, [id number] #### [facility] [address] [place], [address] Albumin/Globulin [Mass ratio] 1.1 {ratio} Normal 0.9-2.4 [facility] Comment on above: Order Comment: CC:CM P TO DR. TENZIN PRIETO Performed By: #### L 100.0500, [id number] #### [facility] [address] [place], [address] ALK PHOS 89 U/L Normal 35-104 [facility] Comment on above: Order Comment: CC:CM P TO DR. TENZIN PRIETO Performed By: #### L 100.0500, [id number] #### [facility] [address] [place], [address] ALT [Catalytic activity/Vol] 9 U/L Normal <=34 [facility] Comment on above: Order Comment: CC:CM P TO DR. TENZIN PRIETO Performed By: #### L 100.0500, [id number] #### [facility] [address] [place], [address] AST [Catalytic activity/Vol] 19 U/L Normal <=31 [facility] Comment on above: Order Comment: CC:CM P TO DR. TENZIN PRIETO Performed By: #### L 100.0500, [id number] #### [facility] [address] [place], [address] Bilirubin [Mass/Vol] 0.33 mg/dL Normal 0.00-1.30 [facility] Comment on above: Order Comment: CC:CM P TO DR. TENZIN PRIETO Performed By: #### L 100.0500, [id number] #### [facility] [address] [place], [address] BUN/CRE 32.0 RATIO High 10-20 [facility] Comment on above: Order Comment: CC:CM P TO DR. TENZIN PRIETO Performed By: #### L 100.0500, [id number] #### [facility] [address] [place], [address] Calcium [Mass/Vol] 9.2 mg/dL Normal 7.6-11.0 [facility] Comment on above: Order Comment: CC:CM P TO DR. TENZIN PRIETO Performed By: #### L 100.0500, [id number] #### [facility] [address] [place], [address] Chloride [Moles/Vol] 106 mmol/L Normal 98-108 [facility] Comment on above: Order Comment: CC:CM P TO DR. TENZIN PRIETO Performed By: #### L 100.0500, [id number] #### [facility] [address] [place], [address] CO2 [Moles/Vol] 20.2 mmol/L Low 21.0-32.0 [facility] Comment on above: Order Comment: CC:CM P TO DR. TENZIN PRIETO Performed By: #### L 100.0500, [id number] #### [facility] [address] [place], [address] Creatinine [Mass/Vol] 1.10 mg/dL Normal 0.70-1.20 [facility] Comment on above: Order Comment: CC:CM P TO DR. TENZIN PRIETO Performed By: #### L 100.0500, [id number] #### [facility] [address] [place], [address] GAP 13 Normal 5-15 [facility] Comment on above: Order Comment: CC:CM P TO DR. TENZIN PRIETO Performed By: #### L 100.0500, [id number] #### [facility] [address] [place], [address] GFR/1.73 sq M.predicted among non-blacks MDRD (S/P/Bld) [Vol rate/Area] 52 mL/min/{1.73_m2} Low >60 [facility] Comment on above: Order Comment: CC:CM P TO DR. TENZIN PRIETO Result Comment: mL/m in/1.73m2 CKD-EPI Creatinine Equation (2020) Performed By: #### L 100.0500, [id number] #### [facility] [address] [place], [address] Globulin (S) [Mass/Vol] 3.4 g/dL Normal 2.2-4.2 [facility] Comment on above: Order Comment: CC:CM P TO DR. TENZIN PRIETO Performed By: #### L 100.0500, [id number] #### [facility] [address] [place], [address] Glucose [Mass/Vol] 178 mg/dL High 70-99 [facility] Comment on above: Order Comment: CC:CM P TO DR. TENZIN PRIETO Performed By: #### L 100.0500, [id number] #### [facility] [address] [place], [address] Potassium [Moles/Vol] 4.6 mmol/L Normal 3.3-5.1 [facility] Comment on above: Order Comment: CC:CM P TO DR. TENZIN PRIETO Performed By: #### L 100.0500, [id number] #### [facility] [address] [place], [address] Sodium [Moles/Vol] 139 mmol/L Normal 133-145 [facility] Comment on above: Order Comment: CC:CM P TO DR. TENZIN PRIETO Performed By: #### L 100.0500, [id number] #### [facility] [address] [place], [address] T PROT 7.3 g/dL Normal 5.9-8.4 [facility] Comment on above: Order Comment: CC:CM P TO DR. TENZIN PRIETO Performed By: #### L 100.0500, [id number] #### [facility] [address] [place], [address] Urea nitrogen [Mass/Vol] 35 mg/dL High 4-19 [facility] Comment on above: Order Comment: CC:CM P TO DR. TENZIN PRIETO Performed By: #### L 100.0500, [id number] #### [facility] [address] [place], [address] Microalb:Creat Ratio,Random [facility]Ron 05-03-2025 Creatinine [Mass/Vol] 120.00 mg/dL Normal 28.00-217.00 [facility] Comment on above: Performed By: #### L 100.0500, L500.2500 #### [facility] [address] [place], [address] MALB:CREAT 158.3 mg/g CRE High <30 mg/g CRE [facility] Comment on above: Performed By: #### L 100.0500, L500.2500 #### [facility] [address] [place], [address] MICROALBUMIN,UR 190.0 mg/L Normal <20 mg/L [facility] Comment on above: Performed By: #### L 100.0500, L500.2500 #### [facility] [address] [place], [address] Protein+Creatinine Ratio,Uri neon 05-03-2025 PROT:CRE RATIO 452 mg/g CRE High 0-200 [facility] Comment on above: Performed By: #### L 100.0500, L500.4050 #### [facility] [address] [place], [address] Protein (U) [Mass/Vol] 52.0 mg/dL High 0.0-12.0 [facility] Comment on above: Performed By: #### L 100.0500, L500.4050 #### [facility] [address] [place], [address] UR CREAT 115.00 mg/dL Normal 28.00-217.00 [facility] Comment on above: Performed By: #### L 100.0500, L500.4050 #### [facility] [address] [place], [address] Thyroid Stim Hormone (TSH)on 05-03-2025 TSH 2.480 uIU/mL Normal 0.300-4.200 [facility] Comment on above: Order Comment: CC:CM P TO DR. TENZIN PRIETO Performed By: #### L 100.0500, L500.4050 #### [facility] [address] [place], [address] Vitamin D,25 Hydroxyon 05-03 Vitamin D 25-OH 48.0 ng/mL Normal 30-100 [facility] Comment on above: Order Comment: CC:CM P TO DR. TENZIN PIRETO Result Comment: Danelle min D Status Deficiency: <20 ng/mL (50nmol/L) Insufficiency: 20-30 ng/mL (50-75 nmol/L) Sufficiency: 30-100 ng/mL (75-250 nmol/L) Toxicity: >100 ng/mL (>250 nmol/L) Performed By: #### L 100.0500, L500.2500 #### [facility] [address] [place], [address] Microalb:Creat Ratio,Random URon 03-16-2025 MALB:CREAT 142.4 mg/g CRE Normal [facility] Comment on above: Result Comment: AMENDED REPORT 03/16/25 0832 MALB:CREAT previously reported as: 1424.5 mg/g CRE Performed By: #### M 100.2200, L500.4050, L100.0100, M100.678 #### [facility] [address] [place], [address] Bone density reportOrdered B y: Slade Boyd on 02-16-2025 Study report Skeletal system DXA [facility] Imaging Services [address] [place] [address] Dexa Bone Density/Append Skel MR#: [id number] Acct: [id number] Name: EDUAR CABRERA Rep #: [id number] : 1950 F 75 From: Marques Boyd MD PCP: Dr. Corby Heller MD Status: REG C RFED Study:Dexa Bone Density/Append Skel Date of E xam: 02/15/25 Exam# [id number] Ordering Dr: Corby Heller MD PROCEDURE: DEXA BONE DENSITY/APPEND SKEL 02/15/2025 REASON FOR EXAM: F, age 75 y/o . Postmenopausal. TECHNIQUE: DXA scan of sites with data reported below. REFERENCE LINKS: ISCD Adult Positions COMPARISON: None FINDINGS: BMD and T-SCORES Left 1/3 radius: 0.506 g/cm2, T-score -1.3 Right 1/3 radius: 0.498 g/cm2, T-score -1.5 The World Health Organization has defined the following categories based on bonedensity: Normal bone density: T-score equal to or greater than -1.0 Osteopenia: T-score between -1.0 and -2.5 Osteoporosis: T-score equal to or less than -2.5 The patient does meet the pharmacological treatment recommendations for prevention of osteoporosis. BD/Dexa Bone Density/Append Skel IMPRESSION: OSTEOPENIA. Recommend follow-up as clinically warranted. Reading Location: [place] [address] CC: Dr. 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: Signed [facility] Breast imaging reportOrdered By: Nan Junior on 02-16-2025 Study report [facility] Imaging Services [address] [place] [address] SCRN MAMM (CAD)W/MARBIN BILAT MR#: [id number] Acct: [id number] Name: EDUAR CABRERA Rep #: [id number] : 1950 F 75 From: Jesse Blackwell MD PCP: Dr. Corby Heller MD Status: JOSE A IBARRA Study:SCRN MAMM (CAD)W/MARBIN BILAT Date of Exa m: 02/15/25 Exam# [id number] Ordering Dr: Corby Heller MD ADDENDUM by Dr. Nan Blackwell MD on 02/16/25 at 2053 Please note that prior breast examinations are now available for comparison. Reading Location: [id number] 02/16/252053 Date cc: Dr. Corby Heller MD ~* Signed ADDENDUM by Dr. Nan Blackwell MD on 02/16/25 at 2034 Described bilateral breast findings including asymmetry in the inner right breast, questionable prominent right axillary lymph node, focal asymmetry in the upper inner left breast and an asymmetry in the outer left breast were all present over multiple prior mammographic exams dating back to 2017 and considered benign. No further additional diagnostic imaging is needed. There are no suspicious findings in either breast. No mammographic evidence of malignancy in either breast. Recommend annual bilateral screening mammography in 1 year BI-RADS category 2 benign findings Reading Location: [id number] 02/16/252034 Date cc: Dr. Corby Heller MD ~* Signed EXAM: SCRN MAMM (CAD)W/MARBIN BILAT DATE: 02/15/2025 CLINICAL HISTORY: F, Age 75 y/o , SCREENING BREAST CANCER RISK ASSESSMENT: Not reported TECHNIQUE: Bilateral screening digital breast tomosynthesis with 2D and 3D images. Computeraided detection. COMPARISON: None available FINDINGS: TISSUE DENSITY: The breast tissue is composed of scattered area of fibroglandular density. Bilateral Breast Mammographic Findings: Right breast: There is an asymmetry in the inner right breast anterior depth. There is questionable prominent right axillary lymph node. Left breast: There is focal asymmetry in the upper inner left breast anterior depth. There is an asymmetry in the outer left breast mid depth. BI/SCRN MAMM (CAD)W/MARBIN BILAT IMPRESSION: OVERALL FINAL ASSESSMENT: BIRADS 0 Incomplete: Need additional imaging evaluation and/or prior mammograms for comparison. RECOMMENDATION: Incomplete: Need additional imaging evaluation with bilateral diagnostic mammogram and ultrasound. A letter with findings and recommendations will be mailed to the patient. Reading Location: [facility] CC: Dr. 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: Signed [facility] Dexa Bone Density/Append Ske latonya 02-15-2025 Dexa Bone Density/Append Skel [facility] Imaging Services [address] [place] [address] Dexa Bone Density/Append Skel MR#: [id number] Acct: [id number] Name: EDUAR CABRERA Rep #: [id number] : 1950 F 75 From: Slade hayward MD PCP: Dr. Corby Heller MD Status: [facility] Study: Dexa Bone Density/Append Skel Date of Exam: Exam# [id number] Ordering Dr: Corby Heller MD PROCEDURE: DEXA BONE DENSITY/APPEND SKEL 02/15/2025 REASON FOR EXAM: F, age 75 y/o . Postmenopausal. TECHNIQUE: DXA scan of sites with data reported below. REFERENCE LINKS: [facility] Positions COMPARISON: None FINDINGS: BMD and T-SCORES Left 1/3 radius: 0.506 g/cm2, T-score -1.3 Right 1/3 radius: 0.498 g/cm2, T-score -1.5 The World Health Organization has defined the following categories based on bone density: Normal bone density: T-score equal to or greater than -1.0 Osteopenia: T-score between -1.0 and -2.5 Osteoporosis: T-score equal to or less than -2.5 The patient does meet the pharmacological treatment recommendations for prevention of osteoporosis. BD/Dexa Bone Density/Append Skel IMPRESSION: OSTEOPENIA. Recommend follow-up as clinically warranted. Reading Location: [place] [address] CC: Dr. Corby Heller MD Traffic Police Officer: Signed Normal [facility] SCRN MAMM (CAD)W/MARBIN BILATo n 02-15-2025 SCRN MAMM (CAD)W/MARBIN BILAT [facility] Imaging Services [address] [place] [id number] SCRN MAMM (CAD)W/MARBIN BILAT MR#: [id number] Acct: [id number] Name: EDUAR CABRERA Rep #: [id number] : 1950 F 75 From: Nan Keane i, MD PCP: Dr. Corby Heller MD Status: [facility] Date of Exam: 01/26 11/21 Exam# [id number] Ordering Dr: Corby Heller MD ADDENDUM by Dr. Nan Blackwell MD on 02/16/25 at 2052 Please note that prior breast examinations are now available for comparison. Reading Location: [id number] 02/16/252053 Date cc: Dr. Corby Heller MD * Signed ADDENDUM by Dr. Nan Blackwell MD on 02/16/25 at 2034 Described bilateral breast findings including asymmetry in the inner right breast, questionable prominent right axillary lymph node, focal asymmetry in the upper inner left breast and an asymmetry in the outer left breast were all present over multiple prior mammographic exams dating back to 2016 and considered benign. No further additional diagnostic imaging is needed. There are no suspicious findings in either breast. No mammographic evidence of malignancy in either breast. Recommend annual bilateral screening mammography in 1 year BI-RADS category 2 benign findings Reading Location: [id number] 02/16/252034 Date cc: Dr. Corby Heller MD * Signed [facility] DATE: 02/15/2025 CLINICAL HISTORY: F, Age 75 y/o , SCREENING BREAST CANCER RISK ASSESSMENT: Not reported TECHNIQUE: Bilateral screening digital breast tomosynthesis with 2D and 3D images. Computer aided detection. COMPARISON: None available FINDINGS: TISSUE DENSITY: The breast tissue is composed of scattered area of fibroglandular density. Bilateral Breast Mammographic Findings: Right breast: There is an asymmetry in the inner right breast anterior depth. There is questionable prominent right axillary lymph node. Left breast: There is focal asymmetry in the upper inner left breast anterior depth. There is an asymmetry in the outer left breast mid depth. BI/SCRN MAMM (CAD)W/MARBIN BILAT IMPRESSION: OVERALL FINAL ASSESSMENT: BIRADS 0 Incomplete: Need additional imaging evaluation and/or prior mammograms for comparison. RECOMMENDATION: Incomplete: Need additional imaging evaluation with bilateral diagnostic mammogram and ultrasound. A letter with findings and recommendations will be mailed to the patient. Reading Location: [id number] CC: Dr. Corby Heller MD Traffic Police Officer: Signed Normal [facility] Absolute lymphocyte countOrd ered By: Corby Heller on 01-30-2025 Lymphocytes Auto (Unsp spec) [#/Vol] 1.90 10*3/uL 0.83-4.51 [facility] Absolute neutrophil countOrd ered By: [facility] Arron on 01-30-2025 Neutrophils (Bld) [#/Vol] 6.0 10*3/uL 2.0-7.7 [facility] Anion gap in Serum or Plasma Ordered By: Corby Heller on 01-30-2025 Anion gap [Moles/Vol] 10 mmol/L 5-15 [facility] Automated lymphocyte count a s percentage of total leukocytesOrdered By: Corby Heller on 01-30-2025 Lymphocytes/100 WBC Auto (Unsp spec) 21.1 % 19-41 [facility] BUN/creatinine ratioOrdered By: [facility] Arron on 01-30-2025 Urea nitrogen/Creatinine [Mass ratio] 22.9 mg/mg High 10-20 [facility] Basophil percentageOrdered B y: Corby Heller on 01-30-2025 Basophils/100 WBC (Bld) 0.7 % 0-1 [facility] Bilirubin, totalOrdered By: Corby Heller on 01-30-2025 Bilirubin [Mass/Vol] 0.26 mg/dL 0.00-1.30 [facility] CBC W/Diff, Automatedon Absolute Lymph 1.90 X10 3/uL Normal 0.83-4.51 [facility] Comment on above: Performed By: #### L 100.0500, L500.2500 #### [facility] [address] [place], [address] Absolute Neut 6.0 X10 3/uL Normal 2.0-7.7 [facility] Comment on above: Performed By: #### L 100.0500, L500.2500 #### [facility] [address] [place], [address] Basophils/100 WBC (Bld) 0.7 % Normal 0-1 [facility] Comment on above: Performed By: #### L 100.0500, L500.2500 #### [facility] [address] [place], [address] Eosinophils/100 WBC (Bld) 2.4 % Normal 0-5 [facility] Comment on above: Performed By: #### L 100.0500, L500.2500 #### [facility] [address] [place], [address] Erythrocyte distribution width (RBC) [Ratio] 15.0 % High 11.6-14.6 [facility] Comment on above: Performed By: #### L 100.0500, L500.2500 #### [facility] [address] [place], [address] Hematocrit (Bld) [Volume fraction] 33.3 % Low 37-47 [facility] Comment on above: Performed By: #### L 100.0500, L500.2500 #### [facility] [address] [place], [address] Hemoglobin (Bld) [Mass/Vol] 10.4 g/dL Low 12.0-15.0 [facility] Comment on above: Performed By: #### L 100.0500, L500.2500 #### [facility] [address] [place], [address] IG% 1.200 High 0.0-0.9 [facility] Comment on above: Result Comment: IG% - Immature Granulocytes (promyelocytes, myelocytes and metamyelocytes) > 1% indicates that a LEFT SHIFT is Present. Performed By: #### L 100.0500, L500.2500 #### [facility] [address] [place], [address] Lymphocytes/100 WBC (Bld) 21.1 % Normal 19-41 [facility] Comment on above: Performed By: #### L 100.0500, L500.2500 #### [facility] [address] [place], [address] MCH (RBC) [Entitic mass] 29.5 pg Normal 27.0-32.0 [facility] Comment on above: Performed By: #### L 100.0500, L500.2500 #### [facility] [address] [place], [address] MCHC (RBC) [Mass/Vol] 31.2 g/dL Low 32-36 [facility] Comment on above: Performed By: #### L 100.0500, L500.2500 #### [facility] [address] [place], [address] MCV (RBC) [Entitic vol] 94.6 fL Normal 81-99 [facility] Comment on above: Performed By: #### L 100.0500, L500.2500 #### [facility] [address] [place], [address] Monocytes/100 WBC (Bld) 8.0 % Normal 0-10 [facility] Comment on above: Performed By: #### L 100.0500, L500.2500 #### [facility] [address] [place], [address] Neutrophils/100 WBC (Bld) 66.6 % Normal 47-70 [facility] Comment on above: Performed By: #### L 100.0500, L500.2500 #### [facility] [address] [place], [address] Nucleated RBC (Bld) [#/Vol] 0 10*3/uL Normal 0-5 [facility] Comment on above: Performed By: #### L 100.0500, L500.2500 #### [facility] [address] [place], [address] Platelet mean volume (Bld) [Entitic vol] 9.6 fL Normal 6.2-12.0 [facility] Comment on above: Performed By: #### L 100.0500, L500.2500 #### [facility] [address] [place], [address] Platelets (Bld) [#/Vol] 229 10*3/uL Normal 150-450 [facility] Comment on above: Performed By: #### L 100.0500, L500.2500 #### [facility] [address] [place], [address] RBC (Bld) [#/Vol] 3.52 10*6/uL Low 4.2-5.4 [facility] Comment on above: Performed By: #### L 100.0500, L500.2500 #### [facility] [address] [place], [address] RDW SD 51.3 fl High 35.1-43.9 [facility] Comment on above: Performed By: #### L 100.0500, L500.2500 #### [facility] [address] [place], [address] WBC (Bld) [#/Vol] 9.0 10*3/uL Normal 4.4-11.0 [facility] Comment on above: Performed By: #### L 100.0500, L500.2500 #### [facility] [address] [place], [address] Carbon dioxide, total [Moles /volume] in Central venous bloodOrdered By: Corby Heller on 01-30-2025 CO2 [Moles/Vol] 27.0 mmol/L 21.0-32.0 [facility] Chloride assayOrdered By: Ryder Heller on 01-30-2025 Chloride [Moles/Vol] 102 mmol/L 98-108 [facility] Comprehensive Metabolic Prof ilon 01-30-2025 Albumin [Mass/Vol] 3.7 g/dL Normal 3.4-4.8 [facility] Comment on above: Performed By: #### L 100.0500, L500.2500 #### [facility] [address] [place], [address] Albumin/Globulin [Mass ratio] 1.0 {ratio} Normal 0.9-2.4 [facility] Comment on above: Performed By: #### L 100.0500, L500.2500 #### [facility] [address] [place], [address] ALK PHOS 85 U/L Normal 35-104 [facility] Comment on above: Performed By: #### L 100.0500, L500.2500 #### [facility] [address] [place], [address] ALT [Catalytic activity/Vol] 13 U/L Normal <=34 [facility] Comment on above: Performed By: #### L 100.0500, L500.2500 #### [facility] [address] [place], [address] AST [Catalytic activity/Vol] 26 U/L Normal <=31 [facility] Comment on above: Performed By: #### L 100.0500, L500.2500 #### [facility] [address] [place], [address] Bilirubin [Mass/Vol] 0.26 mg/dL Normal 0.00-1.30 [facility] Comment on above: Performed By: #### L 100.0500, L500.2500 #### [facility] [address] [place], [address] BUN/CRE 22.9 RATIO High 10-20 [facility] Comment on above: Performed By: #### L 100.0500, L500.2500 #### [facility] [address] [place], [address] Calcium [Mass/Vol] 9.6 mg/dL Normal 7.6-11.0 [facility] Comment on above: Performed By: #### L 100.0500, L500.2500 #### [facility] [address] [place], [address] Chloride [Moles/Vol] 102 mmol/L Normal 98-108 [facility] Comment on above: Performed By: #### L 100.0500, L500.2500 #### [facility] [address] [place], [address] CO2 [Moles/Vol] 27.0 mmol/L Normal 21.0-32.0 [facility] Comment on above: Performed By: #### L 100.0500, L500.2500 #### [facility] [address] [place], [address] Creatinine [Mass/Vol] 1.12 mg/dL Normal 0.70-1.20 [facility] Comment on above: Performed By: #### L 100.0500, L500.2500 #### [facility] [address] [place], [address] GAP 10 Normal 5-15 [facility] Comment on above: Performed By: #### L 100.0500, L500.2500 #### [facility] [address] [place], [address] GFR/1.73 sq M.predicted among non-blacks MDRD (S/P/Bld) [Vol rate/Area] 51 mL/min/{1.73_m2} Low >60 [facility] Comment on above: Result Comment: mL/m in/1.73m2 CKD-EPI Creatinine Equation (2020) Performed By: #### L 100.0500, L500.2500 #### [facility] [address] [place], [address] Globulin (S) [Mass/Vol] 3.6 g/dL Normal 2.2-4.2 [facility] Comment on above: Performed By: #### L 100.0500, L500.2500 #### [facility] [address] [place], [address] Glucose [Mass/Vol] 139 mg/dL High 70-99 [facility] Comment on above: Performed By: #### L 100.0500, L500.2500 #### [facility] [address] [place], [address] Potassium [Moles/Vol] 4.7 mmol/L Normal 3.3-5.1 [facility] Comment on above: Performed By: #### L 100.0500, L500.2500 #### [facility] [address] [place], [address] Sodium [Moles/Vol] 139 mmol/L Normal 133-145 [facility] Comment on above: Performed By: #### L 100.0500, L500.2500 #### [facility] [address] [place], [address] T PROT 7.2 g/dL Normal 5.9-8.4 [facility] Comment on above: Performed By: #### L 100.0500, L500.2500 #### [facility] [address] [place], [address] Urea nitrogen [Mass/Vol] 26 mg/dL High 4-19 [facility] Comment on above: Performed By: #### L 100.0500, L500.2500 #### [place] [facility] [place], [address] Eosinophil percentageOrdered By: Corby Heller on 01-30-2025 Eosinophils/100 WBC (Bld) 2.4 % 0-5 [facility] Erythrocyte distribution wid th ratioOrdered By: [facility] on 01-30-[facility]25 Erythrocyte distribution width (RBC) [Ratio] 15.0 % High 11.6-14.6 [facility] Erythrocyte distribution wid th standard deviationOrdered By: Corby Arron on 01-30-2025 Erythrocyte distribution width (RBC) [Ratio] 51.3 fl High 35.1-43.9 [facility] Glomerular filtration rate ( GFR) estimation/1.73 sq m using serum, plasma, or whole bOrdered By: [facility] on 01-30-2025 GFR/1.73 sq M.predicted among non-blacks MDRD (S/P/Bld) [Vol rate/Area] 51 mL/min/{1.73_m2} Low >60 [facility] Comment on above: mL/min/1.73m2 CKD-EP I Creatinine Equation (2020) Hematocrit Auto (Bld) [Volum e fraction]Ordered By: [facility] 01-30-2025 Hematocrit (Bld) [Volume fraction] 33.3 % Low 37-47 [facility] Hemoglobin measurementOrdere d By: Corby Arron 01-30-2025 Hemoglobin (Bld) [Mass/Vol] 10.4 g/dL Low 12.0-15.0 [facility] Immature granulocytes/100 WB C Auto (Bld)Ordered By: Corby Heller 01-30-2025 Immature granulocytes/100 WBC (Bld) 1.200 % High 0.0-0.9 [facility] Comment on above: IG% - Immature Granu locytes (promyelocytes, myelocytes and metamyelocytes) > 1% indicates that a LEFT SHIFT is Present. Laboratory - Chemistry and C hemistry - challengeOrdered By: Corby Arron 01-30-2025 AST [Catalytic activity/Vol] 26 U/L <32 [facility] MCV (mean corpuscular volume ) determinationOrdered By: Corby Arron 01-30-2025 MCV (RBC) [Entitic vol] 94.6 fL 81-99 [facility] Mean corpuscular hemoglobin (MCH) determinationOrdered By: Corby Heller on 01-30-2025 MCH (RBC) [Entitic mass] 29.5 pg 27.0-32.0 [facility] Mean corpuscular hemoglobin concentration (MCHC) determinationOrdered By: Corby Heller on 01-30-2025 MCHC (RBC) [Mass/Vol] 31.2 g/dL Low 32-36 [facility] Mean platelet volume determi nationOrdered By: Corby Heller on 01-30-2025 Platelet mean volume (Bld) [Entitic vol] 9.6 fL 6.2-12.0 [facility] Monocyte percentageOrdered B y: Corby Heller on 01-30-2025 Monocytes/100 WBC (Bld) 8.0 % 0-10 [facility] Neutrophil percentageOrdered By: Corby Heller on 01-30-2025 Neutrophils/100 WBC (Bld) 66.6 % 47-70 [facility] Nucleated red blood cell per centageOrdered By: Corby Heller on 01-30-2025 Nucleated RBC/100 WBC (Bld) [Ratio] 0 % 0-5 [facility] Platelet countOrdered By: Ryder Heller on 01-30-2025 Platelets (Bld) [#/Vol] 229 10*3/uL 150-450 [facility] Potassium measurement (mass/ volume)Ordered By: Corby Heller on 01-30-2025 Potassium (Unsp spec) [Mass/Vol] 4.7 mmol/L 3.3-5.1 [facility] Protein+Creatinine Ratio,Uri neon 01-30-2025 PROT:CRE RATIO Normal 0-200 [facility] Comment on above: Result Comment: @CATHY HOBBS SAID SHE ALREADY DID HER URINE IN OFFICE Performed By: #### M 100.2200, L500.4050, L100.0100, M100.678 #### [facility] [address] [place], [address] PROTEIN,UR.RAN. Normal 0.0-12.0 [facility] Comment on above: Result Comment: @CATHY HOBBS SAID SHE ALREADY DID HER URINE IN OFFICE Performed By: #### M 100.2200, L500.4050, L100.0100, M100.678 #### [facility] [address] [place], [address] UR CREAT Normal 28.00-217.00 [facility] Comment on above: Result Comment: @CATHY HOBBS SAID SHE ALREADY DID HER URINE IN OFFICE Performed By: #### M 100.2200, L500.4050, L100.0100, M100.678 #### [facility] [address] [place], [address] RBC Auto (Bld) [#/Vol]Ordere d By: Corby Heller on 01-30-2025 RBC (Bld) [#/Vol] 3.52 10*6/uL Low 4.2-5.4 [facility] Random urine creatinine sarbjit urement (mass/volume)Ordered By: Corby Heller on 01-30-2025 Creatinine Unsp time (U) [Mass/Vol] 139.00 mg/dL 28.00-217.00 [facility] Renal Profileon 01-30-2025 Albumin [Mass/Vol] 3.7 g/dL Normal 3.4-4.8 [facility] Comment on above: Performed By: #### M 100.2200, L500.4050, L100.0100, M100.678 #### [facility] [address] [place], [address] BUN/CRE 23.0 RATIO High 10-20 [facility] Comment on above: Performed By: #### M 100.2200, L500.4050, L100.0100, M100.678 #### [facility] [address] [place], [address] Calcium [Mass/Vol] 9.6 mg/dL Normal 7.6-11.0 [facility] Comment on above: Performed By: #### M 100.2200, L500.4050, L100.0100, M100.678 #### [facility] [address] [place], [address] Chloride [Moles/Vol] 101 mmol/L Normal 98-108 [facility] Comment on above: Performed By: #### M 100.2200, L500.4050, L100.0100, M100.678 #### [facility] [address] [place], [address] CO2 [Moles/Vol] 26.8 mmol/L Normal 21.0-32.0 [facility] Comment on above: Performed By: #### M 100.2200, L500.4050, L100.0100, M100.678 #### [facility] [address] [place], [address] Creatinine [Mass/Vol] 1.12 mg/dL Normal 0.70-1.20 [facility] Comment on above: Performed By: #### M 100.2200, L500.4050, L100.0100, M100.678 #### [facility] [address] [place], [address] GAP 10 Normal 5-15 [facility] Comment on above: Performed By: #### M 100.2200, L500.4050, L100.0100, M100.678 #### [facility] [address] [place], [address] GFR/1.73 sq M.predicted among non-blacks MDRD (S/P/Bld) [Vol rate/Area] 51 mL/min/{1.73_m2} Low >60 [facility] Comment on above: Result Comment: mL/m in/1.73m2 CKD-EPI Creatinine Equation (2020) Performed By: #### M 100.2200, L500.4050, L100.0100, M100.678 #### [facility] [address] [place], [address] Glucose [Mass/Vol] 138 mg/dL High 70-99 [facility] Comment on above: Performed By: #### M 100.2200, L500.4050, L100.0100, M100.678 #### [facility] [address] [place], [address] Phosphate [Mass/Vol] 2.9 mg/dL Normal 2.7-4.5 [facility] Comment on above: Performed By: #### M 100.2200, L500.4050, L100.0100, M100.678 #### [facility] [address] [place], [address] Potassium [Moles/Vol] 4.6 mmol/L Normal 3.3-5.1 [facility] Comment on above: Performed By: #### M 100.2200, L500.4050, L100.0100, M100.678 #### [facility] [address] [place], [address] Sodium [Moles/Vol] 138 mmol/L Normal 133-145 [facility] Comment on above: Performed By: #### M 100.2200, L500.4050, L100.0100, M100.678 #### [facility] [address] [place], [address] Urea nitrogen [Mass/Vol] 26 mg/dL High 4-19 [facility] Comment on above: Performed By: #### M 100.2200, L500.4050, L100.0100, M100.678 #### [facility] [address] [place], [address] Serum creatinine measurement (mass/volume)Ordered By: Corby Heller on 01-30-2025 Creatinine [Mass/Vol] 1.12 mg/dL 0.70-1.20 [facility] Serum globulin measurementOr dered By: Corby Heller on 01-30-2025 Globulin (S) [Mass/Vol] 3.6 g/dL 2.2-4.2 [facility] Serum glucose measurement (m ass/volume)Ordered By: Corby Heller on 01-30-2025 Glucose [Mass/Vol] 139 mg/dL High 70-99 [facility] Serum or plasma alanine saldana otransferase (ALT) measurementOrdered By: Corby Heller on 01-30-2025 ALT [Catalytic activity/Vol] 13 U/L <35 [facility] Serum or plasma albumin sarbjit urement (mass/volume)Ordered By: Corby Heller on 01-30-2025 Albumin [Mass/Vol] 3.7 g/dL 3.4-4.8 [facility] Serum or plasma albumin/glob ulin mass ratioOrdered By: Corby Heller on 01-30-2025 Albumin/Globulin [Mass ratio] 1.0 {ratio} 0.9-2.4 [facility] Serum or plasma alkaline louie sphatase measurementOrdered By: Corby Heller on 01-30-2025 ALP [Catalytic activity/Vol] 85 U/L 35-104 [facility] Serum or plasma calcium sarbjit urement (mass/volume)Ordered By: Corby Heller on 01-30-2025 Calcium [Mass/Vol] 9.6 mg/dL 7.6-11.0 [facility] Serum or plasma urea nitroge n measurement (mass/volume)Ordered By: Corby Heller on 01-30-2025 Urea nitrogen [Mass/Vol] 26 mg/dL High 4-19 [facility] Sodium levelOrdered By: Corby Heller on 01-30-2025 Sodium [Moles/Vol] 139 mmol/L 133-145 [facility] TSH DL <= 0.005 mIU/L QnOrde red By: Corby Heller on 01-30-2025 TSH Qn 3.440 uIU/mL 0.300-4.200 [facility] Thyroid Stim Hormone (TSH)on 01-30-2025 TSH 3.440 uIU/mL Normal 0.300-4.200 [facility] Comment on above: Performed By: #### L 100.0500, L500.2500 #### [facility] [address] [place], [place], [address] Total proteinOrdered By: Corby Heller on 01-30-2025 Protein [Mass/Vol] 7.2 g/dL 5.9-8.4 [facility] Urine albumin measurement [facility] detection limit of 20 mg/L or less (mass/volume)Ordered By: Corby Heller on 01-30-2025 Albumin DL <= 20 mg/L (U) [Mass/Vol] 198.0 mg/L NO RANGE EST. [facility] Vitamin D,25 Hydroxyon 01-30 Vitamin D 25-OH 40.9 ng/mL Normal 30-100 [facility] Comment on above: Result Comment: Danelle min D Status Deficiency: <20 ng/mL (50nmol/L) Insufficiency: 20-30 ng/mL (50-75 nmol/L) Sufficiency: 30-100 ng/mL (75-250 nmol/L) Toxicity: >100 ng/mL (>250 nmol/L) Performed By: #### L 100.0500, L500.2500 #### [facility] [address] [place], [place], [id number] White blood cell (WBC) count Ordered By: Corby Heller on 01-30-2025 WBC (Bld) [#/Vol] 9.0 10*3/uL 4.4-11.0 [facility] Plastic Surgery Visit Report on 01-26-2025 Plastic Surgery Visit Report [facility] Plastic Reconstructive Surgery [address], [address] [place] [address] OFFICE VISIT Date of Service: 01/26/25 MR#: [id number] Acct: [id number] Name: LENKASURESHEDUAR Norbert Rep #: [id number] : 1950 Provider: Dr. Rob Weinberg MD Age/Sex: 74/F Location: [facility] Status: Signed Intake Vital Signs 3 01/01/25 14:48 01/26/25 14:39 Height 5 ft 2 in BP 138/81 H Blood Pressure Location Rt radial Position Sitting Respiration 18 Pulse 75 Pulse Source Monitor Pulse Oximetry (%) 96 Oxygen Delivery Method room air Intake Visit Reasons: 1 W FU Chief Complaint: cyst on L cheek Is patient in pain?: No Allergies cephalexin monohydrate (From Keflex) Allergy (Verified 01/26/25 14:38) Swelling ibuprofen Allergy (Verified 01/26/25 14:38) Swelling oxaprozin (From Daypro) Allergy (Verified 01/26/25 14:38) Swelling tramadol HCl (From Ultram) Allergy (Verified 01/26/25 14:38) Swelling albuterol Adverse Reaction (Intermediate, Verified 01/26/25 14:38) Other celecoxib (From Celebrex) Adverse Reaction (Verified 01/26/25 14:38) DIZZY AND HURTS AROUND MY LIVER Medications 3 ???Medication ???Instructions ???Recorded ???Confirmed ???Type fluticasone propionate 50 2 spray NASAL DAILY allergies 11/2501/26/25 History mcg/actuation nasal spray,suspension citalopram 20 mg tablet 20 mg PO QHS DEPRESSION 04/26/21 0 01/26/25 History levothyroxine 25 mcg tablet 25 mcg PO DAILY thyroid 04/29/21 0 01/26/25 History lovastatin 40 mg tablet 40 mg PO QHS cholesterol 04/29/21 01/26/25 History ropinirole 2 mg tablet 2 mg PO QHS RLS 06/25/23 01/26/25 History glucosamine 375 lx-dcslcdhtb-sce 3 tab PO DAILY 08/02/23 01/26/25 H istory no1 500 mg-C 15 mg-gianni 0.5 mg tablet (Glucosamine-Chondroit in-MSM Complex) metformin 500 mg tablet 500 mg PO BID 08/02/23 01/26/25 Hi story cranberry fruit 400 mg capsule 400 mg PO DAILY 11/03/23 01/26/25 History vitamin B complex 1 tab PO DAILY 11/23/23 01/26/25 H istory budesonide 0.5 mg/2 mL suspension 0.5 mg inhalation Q12H PRN PRN 01/26/25 History for nebulization breathing finerenone 10 mg tablet (Kerendia) 10 mg PO DAILY 05/18/24 01/26/25 History oxycodone-acetaminophe n 5 mg-325 1 tab PO Q8H PRN pain 3 days #10 0 06/01/24 01/26/25 Rx mg tablet (Percocet) tabs ipratropium bromide 42 mcg (0.06 2 spray intranasal DAILY 06/19/24 01/26/25 History %) nasal spray levalbuterol tartrate 45 1 puff inhalation Q4H PRN 06/19/24 01/26/25 History mcg/actuation aerosol inhaler shortness of breath polysaccharide iron complex 150 mg 150 mg PO QDAY 06/19/24 01/26/25 History iron capsule (Ferrex) vibegron 75 mg tablet (Gemtesa) 75 mg PO QDAY 08/11/24 01/26/25 Hi story ascorbate calcium (vitamin C) 500 1 g PO DAILY 12/22/24 01/26/25 Hi story mg tablet coenzyme Q10 100 mg capsule 50 mg PO DAILY 12/22/24 01/26/25 H istory (CoQ-10) echinacea 500 mg capsule 1,000 mg PO DAILY 12/22/24 5 History melatonin 10 mg capsule 10 mg PO QHS 12/22/24 01/26/25 His tory prednisone 20 mg tablet 40 mg (2 x 20 mg) PO DAILY 4 days 01/01/25 01/26/25 Rx #8 tabs Have you fallen in the past year?: Yes PFSH Medical History History of ESBL Klebsiella pneumoniae infection BiPAP (biphasic positive airway pressure) dependence History of diverticulitis Restless legs MRSA infection Wears glasses Post-menopausal Alcohol use Thyroid disease Arthritis High cholesterol Back pain Injury of head and neck Non-smoker Shortness of breath on exertion History of pain when walking History of echocardiogram Sinus tachycardia by electrocardiogram Anemia Thrombocytopenia Depression Anxiety Osteoarthritis Kidney stones Asthma Hypertension Diabetes Fibromyalgia Foot arch pain COVID-19 Surgical History Hx of bilateral cataract extraction History of cystoscopy Hx of umbilical hernia repair History of carpal tunnel surgery of left wrist Hx of tonsillectomy Hx of colonoscopy History of ureter stent Family History Other Diabetes Hypertension Social History household members: children housing: house Smoking Status: Never smoker alcohol intake: never substance use type: does not use HPI 1 W FU Details: Eduar Cabrera is a delightful 74-year-old female with type 2 diabetes with a well-controlled A1c who presents today for evaluation of a left cheek pearly lesion of several months duration. Itches from time to time. Has been getting slightly bigger. Referred to us by (more content not included)... Normal [facility] Plastic Surgery Visit Report on 01-18-2025 Plastic Surgery Visit Report [facility] Plastic Reconstructive Surgery [address], [address] [place], [place] [address] OFFICE VISIT Date of Service: 01/18/25 MR#: [id number] Acct: [id number] Name: EDUAR CABRERA Rep #: [id number] : 1950 Provider: Dr. Rob Weinberg MD Age/Sex: 74/F Location: [facility] Status: Signed Intake Vital Signs 3 07/19/24 10:35 01/01/25 14:48 01/18/25 14:52 Height 5 ft 2 in 5 ft 2 in BP 110/58 L Blood Pressure Location Rt brachial Position Sitting Respiration 18 Pulse 88 Pulse Source Monitor Pulse Oximetry (%) 92 Oxygen Delivery Method room air Intake Visit Reasons: CYST L CHEEK Chief Complaint: cyst on L cheek Is patient in pain?: No Allergies cephalexin monohydrate (From Keflex) Allergy (Verified 01/18/25 14:37) Swelling ibuprofen Allergy (Verified 01/18/25 14:37) Swelling oxaprozin (From Daypro) Allergy (Verified 01/18/25 14:37) Swelling tramadol HCl (From Ultram) Allergy (Verified 01/18/25 14:37) Swelling albuterol Adverse Reaction (Intermediate, Verified 01/18/25 14:37) Other celecoxib (From Celebrex) Adverse Reaction (Verified 01/18/25 14:37) DIZZY AND HURTS AROUND MY LIVER Medications 3 ???Medication ???Instructions ???Recorded ???Confirmed ???Type fluticasone propionate 50 2 spray NASAL DAILY allergies 11/2501/18/25 History mcg/actuation nasal spray,suspension citalopram 20 mg tablet 20 mg PO QHS DEPRESSION 04/26/21 0 01/18/25 History levothyroxine 25 mcg tablet 25 mcg PO DAILY thyroid 04/29/21 0 01/18/25 History lovastatin 40 mg tablet 40 mg PO QHS cholesterol 04/29/21 01/18/25 History ropinirole 2 mg tablet 2 mg PO QHS RLS 06/25/23 01/18/25 History glucosamine 375 rb-jxtutisqu-lua 3 tab PO DAILY 08/02/23 01/18/25 H istory no1 500 mg-C 15 mg-gianni 0.5 mg tablet (Glucosamine-Chondroit in-MSM Complex) metformin 500 mg tablet 500 mg PO BID 08/02/23 01/18/25 Hi story cranberry fruit 400 mg capsule 400 mg PO DAILY 11/03/23 01/18/25 History vitamin B complex 1 tab PO DAILY 11/23/23 01/18/25 H istory budesonide 0.5 mg/2 mL suspension 0.5 mg inhalation Q12H PRN PRN 01/18/25 History for nebulization breathing finerenone 10 mg tablet (Kerendia) 10 mg PO DAILY 05/18/24 01/18/25 History oxycodone-acetaminophe n 5 mg-325 1 tab PO Q8H PRN pain 3 days #10 0 06/01/24 01/18/25 Rx mg tablet (Percocet) tabs ipratropium bromide 42 mcg (0.06 2 spray intranasal DAILY 06/19/24 01/18/25 History %) nasal spray levalbuterol tartrate 45 1 puff inhalation Q4H PRN 06/19/24 01/18/25 History mcg/actuation aerosol inhaler shortness of breath polysaccharide iron complex 150 mg 150 mg PO QDAY 06/19/24 01/18/25 History iron capsule (Ferrex) vibegron 75 mg tablet (Gemtesa) 75 mg PO QDAY 08/11/24 01/18/25 Hi story ascorbate calcium (vitamin C) 500 1 g PO DAILY 12/22/24 01/18/25 Hi story mg tablet coenzyme Q10 100 mg capsule 50 mg PO DAILY 12/22/24 01/18/25 H istory (CoQ-10) echinacea 500 mg capsule 1,000 mg PO DAILY 12/22/24 5 History melatonin 10 mg capsule 10 mg PO QHS 12/22/24 01/18/25 His tory prednisone 20 mg tablet 40 mg (2 x 20 mg) PO DAILY 4 days 01/01/25 01/18/25 Rx #8 tabs Have you fallen in the past year?: No Nurse's Note: 1% Lidocaine [facility] 5156-6141-16 [id number] 07/2025 [facility] Medical History History of ESBL Klebsiella pneumoniae infection BiPAP (biphasic positive airway pressure) dependence History of diverticulitis Restless legs MRSA infection Wears glasses Post-menopausal Alcohol use Thyroid disease Arthritis High cholesterol Back pain Injury of head and neck Non-smoker Shortness of breath on exertion History of pain when walking History of echocardiogram Sinus tachycardia by electrocardiogram Anemia Thrombocytopenia Depression Anxiety Osteoarthritis Kidney stones Asthma Hypertension Diabetes Fibromyalgia Foot arch pain COVID-19 Surgical History Hx of bilateral cataract extraction History of cystoscopy Hx of umbilical hernia repair History of carpal tunnel surgery of left wrist Hx of tonsillectomy Hx of colonoscopy History of ureter stent Family History Other Diabetes Hypertension Social History household members: children housing: house Smoking Status: Never smoker alcohol intake: never substance use type: does not use HPI CYST L CHEEK Details: Eduar Cabrera is a delightful 74-year-old female with type 2 diabetes with a well-controlled A1c who presents today for evaluation o (more content not included)... Normal [facility] Surgery Specimen Level Odilia 01-18-2025 Surgery Specimen Level IV ---- Patient Age/Sex Location Account Attending Physician ---- EDUAR CABRERA 74/F LABSPEC [id number] Dr. Rob Weinberg MD ---- Specimen: [id number] Received: 01/18/25 Status: SHYANNE Gerbermiguel angel Num: [id number] Spec Type: Tissue Bx Subm Dr: Dr. Rob Weinberg MD HEADER OPERATION: Biopsy PRE-OP DIAGNOSIS: Neoplasm of uncertain behavior of skin TISSUE SUBMITTED: A- Left cheek biopsy ---- MICROSCOPIC DIAGNOSIS A. Skin, left cheek, shave biopsy: * Superficial fragments of irritated seborrheic keratosis with lichenoid chronic inflammation. MICROSCOPIC DESCRIPTION Slides are reviewed. GROSS DESCRIPTION A. Received in formalin in a container labeled with the patient's name, date of , and L cheek biopsy are multiple white-cristina, friable fragments of soft tissue measuring 0.3 x 0.2 x 0.2 cm in aggregate. Submitted in toto in A1. [facility] 01-19-2025 CPT:37358 ---- Patient Age/Sex Location Account Attending Physician ---- EDUAR CABRERA 74/F LABSPEC [id number] Dr. Rob Weinberg MD ---- Signed (signature on file) Dr. Alea Tobar MD 02/05/25 1222 ---- Normal [facility] Comment on above: Performed By: #### P LAURA ####[facility] [id number] [place], [place], [id number] Bedside Glucoseon 01-01-2025 FINGERSTICK GLU 128 mg/dL High 74-106 [facility] Comment on above: Result Comment: MAHAD BUCKLEY OF PATIENT CARE PER NURSING PROTOCOL Performed By: #### M 100.2200, L500.4050, L100.0100, M100.678 #### [facility] [address] [place], [address] Emergency Department Summary on 01-01-2025 Emergency Department Summary [facility] Medical Records Department [address] [place] [address] Emergency Department Summary 01/01/25 MR#: [id number] Acct: [id number] Name: EDUAR CABRERA Rep #: [id number] : 1950 74 From: Evans Blankenship DO PCP: Dr. Corby Heller MD Status:DEP ER Location: ED HPI History of Present Illness Chief Complaint: Lower Extremity Injury Narrative Narrative: 74-year-old female with past medical history of osteoarthritis presents with left wrist and right knee pain that started last night. No known injury or falls. No fever or chills. No weakness or numbness or tingling. [facility] Medical History (Updated 01/01/25 @ 17:45 by SAMANTHA Beard) History of ESBL Klebsiella pneumoniae infection BiPAP (biphasic positive airway pressure) dependence History of diverticulitis Restless legs MRSA infection Wears glasses Post-menopausal Alcohol use Thyroid disease Arthritis High cholesterol Back pain Injury of head and neck Non-smoker Shortness of breath on exertion History of pain when walking History of echocardiogram Sinus tachycardia by electrocardiogram Anemia Thrombocytopenia Depression Anxiety Osteoarthritis Kidney stones Asthma Hypertension Diabetes Fibromyalgia Foot arch pain COVID-19 Home Medications ???Medication ???Instructions ???Recorded ???Last Taken ???Type fluticasone propionate 50 2 spray NASAL DAILY allergies 11/2505/31/24 History mcg/actuation nasal spray,suspension citalopram 20 mg tablet 20 mg PO QHS DEPRESSION 04/26/21 0 05/31/24 History levothyroxine 25 mcg tablet 25 mcg PO DAILY thyroid 04/29/21 0 04/06/24 07:00 History lovastatin 40 mg tablet 40 mg PO QHS cholesterol 04/29/21 05/31/24 History ropinirole 2 mg tablet 2 mg PO QHS RLS 06/25/23 05/31/24 History glucosamine 375 iv-tuxjuhqgs-qgw 3 tab PO DAILY 08/02/23 05/31/24 H istory no1 500 mg-C 15 mg-gianni 0.5 mg tablet (Glucosamine-Chondroit in-MSM Complex) metformin 500 mg tablet 500 mg PO BID 08/02/23 05/31/24 Hi story cranberry fruit 400 mg capsule 400 mg PO DAILY 11/03/23 05/31/24 History vitamin B complex 1 tab PO DAILY 11/23/23 05/31/24 H istory budesonide 0.5 mg/2 mL suspension 0.5 mg inhalation Q12H PRN PRN Unknown History for nebulization breathing finerenone 10 mg tablet (Kerendia) 10 mg PO DAILY 05/18/24 05/31/24 History oxycodone-acetaminophe n 5 mg-325 1 tab PO Q8H PRN pain 3 days #10 0 06/01/24 Unknown Rx mg tablet (Percocet) tabs ipratropium bromide 42 mcg (0.06 2 spray intranasal DAILY 06/19/24 Unknown History %) nasal spray levalbuterol tartrate 45 1 puff inhalation Q4H PRN 06/19/24 Unknown History mcg/actuation aerosol inhaler shortness of breath polysaccharide iron complex 150 mg 150 mg PO QDAY 06/19/24 Unknown History iron capsule (Ferrex) vibegron 75 mg tablet (Gemtesa) 75 mg PO QDAY 08/11/24 Unknown His tory ascorbate calcium (vitamin C) 500 1 g PO DAILY 12/22/24 Unknown His tory mg tablet coenzyme Q10 100 mg capsule 50 mg PO DAILY 12/22/24 Unknown Hi story (CoQ-10) echinacea 500 mg capsule 1,000 mg PO DAILY 12/22/24 Unknown History melatonin 10 mg capsule 10 mg PO QHS 12/22/24 Unknown Hist ory prednisone 20 mg tablet 40 mg (2 x 20 mg) PO DAILY 4 days 01/01/25 Unknown Rx #8 tabs Allergy/AdvReac Type Severity Reaction Status Date / Time cephalexin monohydrate (From Allergy Swelling Verified 01/01/25 14:51 Keflex) ibuprofen Allergy Swelling Verified 01/01/25 14:51 oxaprozin (From Daypro) Allergy Swelling Verified 01/01/25 14:51 tramadol HCl (From Ultram) Allergy Swelling Verified 01/01/25 14:51 albuterol AdvReac Intermediate Other Verified 01/01/25 14:51 celecoxib (From Celebrex) AdvReac DIZZY AND Verified 01/01/25 14:51 HURTS AROUND MY LIVER Family History Other Diabetes Hypertension Surgical History Hx of bilateral cataract extraction History of cystoscopy Hx of umbilical hernia repair History of carpal tunnel surgery of left wrist Hx of tonsillectomy Hx of colonoscopy History of ureter stent Social History household members: children housing: house Smoking Status: Never smoker alcohol intake: never substance use type: does not use ROS ROS ED ROS Narrative Constitutional: Negative for fever, chills. Neuro: Negative for motor/sensory dysfunction. Skin: Negative for rash. Musc: Positive for left wrist and right knee pain. EXAM Physical Exam Narrative Exam Narrative: CONST: Patient sitting in no acute distress. EYES: Normal inspection. NECK: Normal inspection. RESP: No respiratory distr (more content not included)... Normal [facility] deOrdered By: Evans Blankenship on 01-01-2025 Glucose [Mass/Vol] 128 mg/dL High 74-106 [facility] Comment on above: MANAGEMENT OF PATIEN T CARE PER NURSING PROTOCOL Knee 1 or 2 Viewson 01-02-20 Knee 1 or 2 Views [facility] Imaging Services [address] [place], [place] [id number] Knee 1 or 2 Views MR#: [id number] Acct: [id number] Name: EDUAR CABRERA Rep #: [id number] : 1950 F 74 From: Alonso Sow MD PCP: Dr. Corby Heller MD Status: REG ER Study: Knee 1 or 2 Views Date of Exam: 01/01/25 Exam# [id number] Ordering Dr: Lucrecia Garcia PROCEDURE: KNEE 1 OR 2 VIEWS (RADK), 01/01/2025 REASON FOR EXAM: PAIN TECHNIQUE: PA and lateral views of the RIGHT knee were obtained. COMPARISON: None FINDINGS: Exam slightly limited due to extended positioning of the knee on the lateral view. Fracture/dislocation: None visible. Joint space(s): Severe loss of lateral compartment joint space. Snannjly-cf-[id number] loss of patellofemoral compartment joint space. Mild loss of medial compartment joint space. Mild tricompartment osteophytes and subchondral sclerosis greatest along the patellofemoral and lateral compartments... Soft tissues: Questionable suprapatellar joint effusion.. Foreign bodies: None visible. Bone mineralization: Suspect demineralization. Other: None. RAD/Knee 1 or 2 Views IMPRESSION: 1. Suspect demineralization without visible acute displaced fracture. 2. Questionable joint effusion, evaluation limited due to positioning. Correlate with exam. If there is clinical concern for an occult intra-articular fracture, consider CT. 3. Degenerative findings and additional description as above. Reading Location: [facility] CC: Dr. Corby Heller MD; SAMANTHA Beard Traffic Police Officer: Signed Normal [facility] Wrist min 3 Viewson 01-02-20 Wrist min 3 Views [facility] Services [address] [place] [address] Wrist min 3 Views MR#: [id number] Acct: [id number] Name: EDUAR CABRERA Rep #: [id number] : 1950 F 74 From: Lilliam Dsouza nd, MD PCP: Dr. Corby Heller MD Status: REG ER Study: Wrist min 3 Views Date of Exam: 01/01/25 Exam# [id number] Ordering Dr: Lucrecia Garcia PROCEDURE: WRIST MIN 3 VIEWS 01/01/2025 REASON FOR EXAM: PAIN, history of arthritis. TECHNIQUE: 3 views of the left hand COMPARISON: None. FINDINGS: Bones: Diffuse osseous demineralization. No obvious acute fracture. No aggressive osseous lesions. Joints: Normal alignment. Moderate degenerative changes of the 1st CMC joint. Mild degenerative changes of the joint spaces. Soft tissues: Soft tissues are unremarkable. Other: No radiopaque foreign body. RAD/Wrist min 3 Views IMPRESSION: DEGENERATIVE OSTEOARTHROSIS. NO ACUTE FINDINGS. Reading Location: [id number] CC: Dr. Corby Helelr MD; SAMANTHA Beard [employer] Officer: Signed Normal [facility] Anion gap in Serum or Plasma Ordered By: Rob Krishnamurthy on 12-28-2024 Anion gap [Moles/Vol] 11 mmol/L 5-15 [facility] BUN/creatinine ratioOrdered By: Rob Krishnamurthy on 12-28-2024 Urea nitrogen/Creatinine [Mass ratio] 36.8 mg/mg High 10-20 [facility] Bilirubin, totalOrdered By: Rob Krishnamurthy on 12-28-2024 Bilirubin [Mass/Vol] 0.35 mg/dL 0.00-1.30 [facility] CBC-Complete Blood Cnt No Di ffon 12-28-2024 Erythrocyte distribution width (RBC) [Ratio] 14.5 % Normal 11.6-14.6 [facility] Comment on above: Performed By: #### L 100.0500, L500.4050 #### [facility] [address] [place], [address] Hematocrit (Bld) [Volume fraction] 30.8 % Low 37-47 [facility] Comment on above: Performed By: #### L 100.0500, L500.4050 #### [facility] [address] [place], [address] Hemoglobin (Bld) [Mass/Vol] 10.0 g/dL Low 12.0-15.0 [facility] Comment on above: Performed By: #### L 100.0500, L500.4050 #### [facility] [address] [place], [address] MCH (RBC) [Entitic mass] 30.1 pg Normal 27.0-32.0 [facility] Comment on above: Performed By: #### L 100.0500, L500.4050 #### [facility] [address] [place], [address] MCHC (RBC) [Mass/Vol] 32.5 g/dL Normal 32-36 [facility] Comment on above: Performed By: #### L 100.0500, L500.4050 #### [facility] [address] [place], [address] MCV (RBC) [Entitic vol] 92.8 fL Normal 81-99 [facility] Comment on above: Performed By: #### L 100.0500, L500.4050 #### [facility] [address] [place], [address] Platelet mean volume (Bld) [Entitic vol] 9.1 fL Normal 6.2-12.0 [facility] Comment on above: Performed By: #### L 100.0500, L500.4050 #### [facility] [address] [place], [address] Platelets (Bld) [#/Vol] 203 10*3/uL Normal 150-450 [facility] Comment on above: Performed By: #### L 100.0500, L500.4050 #### [facility] [address] [place], [address] RBC (Bld) [#/Vol] 3.32 10*6/uL Low 4.2-5.4 [facility] Comment on above: Performed By: #### L 100.0500, L500.4050 #### [facility] [address] [place], [address] RDW SD 49.1 fl High 35.1-43.9 [facility] Comment on above: Performed By: #### L 100.0500, L500.4050 #### [facility] [address] [place], [address] WBC (Bld) [#/Vol] 8.0 10*3/uL Normal 4.4-11.0 [facility] Comment on above: Performed By: #### L 100.0500, L500.4050 #### [facility] [address] [place], [address] Carbon dioxide, total [Moles /volume] in Central venous bloodOrdered By: Rob Krishnamurthy on 12-28-2024 CO2 [Moles/Vol] 23.4 mmol/L 21.0-32.0 [facility] Chloride assayOrdered By: Monie Krishnamurthy on 12-28-2024 Chloride [Moles/Vol] 104 mmol/L 98-108 [facility] Comprehensive Metabolic Prof ilon 12-28-2024 Albumin [Mass/Vol] 3.8 g/dL Normal 3.4-4.8 [facility] Comment on above: Performed By: #### L 100.0500, L500.4050 #### [facility] [address] [place], [address] Albumin/Globulin [Mass ratio] 1.1 {ratio} Normal 0.9-2.4 [facility] Comment on above: Performed By: #### L 100.0500, L500.4050 #### [facility] [address] [place], [address] ALK PHOS 72 U/L Normal 35-104 [facility] Comment on above: Performed By: #### L 100.0500, L500.4050 #### [facility] [address] [place], [address] ALT [Catalytic activity/Vol] 9 U/L Normal <=34 [facility] Comment on above: Performed By: #### L 100.0500, L500.4050 #### [facility] [address] [place], [address] AST [Catalytic activity/Vol] 20 U/L Normal <=31 [facility] Comment on above: Performed By: #### L 100.0500, L500.4050 #### [facility] [address] [place], [address] Bilirubin [Mass/Vol] 0.35 mg/dL Normal 0.00-1.30 [facility] Comment on above: Performed By: #### L 100.0500, L500.4050 #### [facility] [address] [place], [address] BUN/CRE 36.8 RATIO High 10-20 [facility] Comment on above: Performed By: #### L 100.0500, L500.4050 #### [facility] [address] [place], [address] Calcium [Mass/Vol] 9.4 mg/dL Normal 7.6-11.0 [facility] Comment on above: Performed By: #### L 100.0500, L500.4050 #### [facility] [address] [place], [address] Chloride [Moles/Vol] 104 mmol/L Normal 98-108 [facility] Comment on above: Performed By: #### L 100.0500, L500.4050 #### [facility] [address] [place], [address] CO2 [Moles/Vol] 23.4 mmol/L Normal 21.0-32.0 [facility] Comment on above: Performed By: #### L 100.0500, L500.4050 #### [facility] [address] [place], [address] Creatinine [Mass/Vol] 1.17 mg/dL Normal 0.70-1.20 [facility] Comment on above: Performed By: #### L 100.0500, L500.4050 #### [facility] [address] [place], [address] GAP 11 Normal 5-15 [facility] Comment on above: Performed By: #### L 100.0500, L500.4050 #### [facility] [address] [place], [address] GFR/1.73 sq M.predicted among non-blacks MDRD (S/P/Bld) [Vol rate/Area] 49 mL/min/{1.73_m2} Low >60 [facility] Comment on above: Result Comment: mL/m in/1.73m2 CKD-EPI Creatinine Equation (2020) Performed By: #### L 100.0500, L500.4050 #### [facility] [address] [place], [address] Globulin (S) [Mass/Vol] 3.6 g/dL Normal 2.2-4.2 [facility] Comment on above: Performed By: #### L 100.0500, L500.4050 #### [facility] [address] [place], [address] Glucose [Mass/Vol] 133 mg/dL High 70-99 [facility] Comment on above: Performed By: #### L 100.0500, L500.4050 #### [facility] [address] [place], [address] Potassium [Moles/Vol] 4.4 mmol/L Normal 3.3-5.1 [facility] Comment on above: Performed By: #### L 100.0500, L500.4050 #### [facility] [address] [place], [address] Sodium [Moles/Vol] 139 mmol/L Normal 133-145 [facility] Comment on above: Performed By: #### L 100.0500, L500.4050 #### [facility] [address] [place], [address] T PROT 7.4 g/dL Normal 5.9-8.4 [facility] Comment on above: Performed By: #### L 100.0500, L500.4050 #### [facility] [address] [place], [place], [address] Urea nitrogen [Mass/Vol] 43 mg/dL High 4-19 [facility] Comment on above: Performed By: #### L 100.0500, L500.4050 #### [facility] [address] [place], [place], [address] Erythrocyte distribution wid th (RBC) [Ratio]Ordered By: Rob Krishnamurthy on 12-28-2024 Erythrocyte distribution width (RBC) [Entitic vol] 49.1 fL High 35.1-43.9 [facility] Erythrocyte distribution wid th ratioOrdered By: Rob Krishnamurthy on 12-28-2024 Erythrocyte distribution width (RBC) [Ratio] 14.5 % 11.6-14.6 [facility] Erythrocyte distribution wid th standard deviationOrdered By: Rob Krishnamurthy on 12-28-2024 Erythrocyte distribution width (RBC) [Ratio] 49.1 fl High 35.1-43.9 [facility] GFR/1.73 sq M.predicted kyle g non-blacks MDRD (S/P/Bld) [Vol rate/Area]Ordered By: Rob Krishnamurthy on 12-28-2024 Estimated GFR (MDRD) Non-Af Amer 49 Low >60 [facility] Comment on above: mL/min/1.73m2 CKD-EP I Creatinine Equation (2020) Glomerular filtration rate ( GFR) estimation/1.73 sq m using serum, plasma, or whole bOrdered By: Rob Krishnamurthy on 12-28-2024 GFR/1.73 sq M.predicted among non-blacks MDRD (S/P/Bld) [Vol rate/Area] 49 mL/min/{1.73_m2} Low >60 [facility] Comment on above: mL/min/1.73m2 CKD-EP I Creatinine Equation (2020) Hematocrit Auto (Bld) [Volum e fraction]Ordered By: Rob Krishnamurthy on 12-28-2024 Hematocrit (Bld) [Volume fraction] 30.8 % Low 37-47 [facility] Hemoglobin measurementOrdere d By: Rob Krishnamurthy on 12-28-2024 Hemoglobin (Bld) [Mass/Vol] 10.0 g/dL Low 12.0-15.0 [facility] - Chemistry and C hemistry - challengeOrdered By: Rob Krishnamurthy on 12-28-2024 AST [Catalytic activity/Vol] 20 U/L <32 [facility] MCV (mean corpuscular volume ) determinationOrdered By: Rob Krishnamurthy on 12-28-2024 MCV (RBC) [Entitic vol] 92.8 fL 81-99 [facility] Mean corpuscular hemoglobin (MCH) determinationOrdered By: Rob Krishnamurthy on 12-28-2024 MCH (RBC) [Entitic mass] 30.1 pg 27.0-32.0 [facility] Mean corpuscular hemoglobin concentration (MCHC) determinationOrdered By: Rob Krishnamurthy on 12-28-2024 MCHC (RBC) [Mass/Vol] 32.5 g/dL 32-36 [facility] Mean platelet volume determi nationOrdered By: Rob Krishnamurthy on 12-28-2024 Platelet mean volume (Bld) [Entitic vol] 9.1 fL 6.2-12.0 [facility] Platelet countOrdered By: Monie Krishnamurthy on 12-28-2024 Platelets (Bld) [#/Vol] 203 10*3/uL 150-450 [facility] Potassium (Unsp spec) [Mass/ Vol]Ordered By: Rob Krishnamurthy on 12-28-2024 Potassium [Moles/Vol] 4.4 mmol/L 3.3-5.1 [facility] Potassium measurement (mass/ volume)Ordered By: Rob Krishnamurthy on 12-28-2024 Potassium (Unsp spec) [Mass/Vol] 4.4 mmol/L 3.3-5.1 [facility] RBC Auto (Bld) [#/Vol]Ordere d By: Rob Krishnamurthy on 12-28-2024 RBC (Bld) [#/Vol] 3.32 10*6/uL Low 4.2-5.4 [facility] Serum creatinine measurement (mass/volume)Ordered By: Rob Krishnamurthy on 12-28-2024 Creatinine [Mass/Vol] 1.17 mg/dL 0.70-1.20 [facility] Serum globulin measurementOr dered By: Rob Krishnamurthy on 12-28-2024 Globulin (S) [Mass/Vol] 3.6 g/dL 2.2-4.2 [facility] Serum glucose measurement (m ass/volume)Ordered By: Rob Krishnamurthy on 12-28-2024 Glucose [Mass/Vol] 133 mg/dL High 70-99 [facility] Serum or plasma alanine saldana otransferase (ALT) measurementOrdered By: Rob Krishnamurthy on 12-28-2024 ALT [Catalytic activity/Vol] 9 U/L <35 [facility] Serum or plasma albumin sarbjit urement (mass/volume)Ordered By: Rob Krishnamurthy on 12-28-2024 Albumin [Mass/Vol] 3.8 g/dL 3.4-4.8 [facility] Serum or plasma albumin/glob ulin mass ratioOrdered By: Rob Krishnamurthy on 12-28-2024 Albumin/Globulin [Mass ratio] 1.1 {ratio} 0.9-2.4 [facility] Serum or plasma alkaline louie sphatase measurementOrdered By: Rob Krishnamurthy on 12-28-2024 ALP [Catalytic activity/Vol] 72 U/L 35-104 [facility] Serum or plasma calcium sarbjit urement (mass/volume)Ordered By: Rob Krishnamurthy on 12-28-2024 Calcium [Mass/Vol] 9.4 mg/dL 7.6-11.0 [facility] Serum or plasma urea nitroge n measurement (mass/volume)Ordered By: Rob Krishnamurthy on 12-28-2024 Urea nitrogen [Mass/Vol] 43 mg/dL High 4-19 [facility] Sodium levelOrdered By: Jesse Krishnamurthy on 12-28-2024 Sodium [Moles/Vol] 139 mmol/L 133-145 [facility] Total proteinOrdered By: Nate Krishnamurthy on 12-28-2024 Protein [Mass/Vol] 7.4 g/dL 5.9-8.4 [facility] White blood cell (WBC) count Ordered By: Rob Krishnamurthy on 12-28-2024 WBC (Bld) [#/Vol] 8.0 10*3/uL 4.4-11.0 [facility] Emergency Department Summary on 12-23-2024 Emergency Department Summary [facility] Medical Records Department [address] [place] [address] Emergency Department Summary 12/23/24 MR#: [id number] Acct: [id number] Name: EDUAR CABRERA Rep #: [id number] : 1950 74 From: Dom Epstein MD PCP: Dr. Corby Heller MD Status:DEP ER Location: ED [facility] History of Present Illness Chief Complaint: General Illness Narrative Narrative: Patient is a 74-year-old female with history of obesity, diabetes hypertension asthma depression who is currently being treated with IM ertapenem daily for 7 days for ESBL Klebsiella, as well as E. coli urinary tract infection. Patient is under the care of infectious disease. Patient states she had her first injection yesterday. Today due to some personal issues she was late and could not receive her injection. Patient states that she was told to come to the ER to get her injection. She states that after the injection she like to be discharged. [facility] Medical History (Updated 12/23/24 @ 12:58 by Jairo Green NP-C) History of ESBL Klebsiella pneumoniae infection BiPAP (biphasic positive airway pressure) dependence History of diverticulitis Restless legs MRSA infection Wears glasses Post-menopausal Alcohol use Thyroid disease Arthritis High cholesterol Back pain Injury of head and neck Non-smoker Shortness of breath on exertion History of pain when walking History of echocardiogram Sinus tachycardia by electrocardiogram Anemia Thrombocytopenia Depression Anxiety Osteoarthritis Kidney stones Asthma Hypertension Diabetes Fibromyalgia Foot arch pain COVID-19 Home Medications ???Medication ???Instructions ???Recorded ???Last Taken ???Type fluticasone propionate 50 2 spray NASAL DAILY allergies 11/2505/31/24 History mcg/actuation nasal spray,suspension citalopram 20 mg tablet 20 mg PO QHS DEPRESSION 04/26/21 0 05/31/24 History levothyroxine 25 mcg tablet 25 mcg PO DAILY thyroid 04/29/21 0 04/06/24 07:00 History lovastatin 40 mg tablet 40 mg PO QHS cholesterol 04/29/21 05/31/24 History ropinirole 2 mg tablet 2 mg PO QHS RLS 06/25/23 05/31/24 History glucosamine 375 jj-pftgovawl-oig 3 tab PO DAILY 08/02/23 05/31/24 H istory no1 500 mg-C 15 mg-gianni 0.5 mg tablet (Glucosamine-Chondroit in-MSM Complex) metformin 500 mg tablet 500 mg PO BID 08/02/23 05/31/24 Hi story cranberry fruit 400 mg capsule 400 mg PO DAILY 11/03/23 05/31/24 History vitamin B complex 1 tab PO DAILY 11/23/23 05/31/24 H istory budesonide 0.5 mg/2 mL suspension 0.5 mg inhalation Q12H PRN PRN Unknown History for nebulization breathing finerenone 10 mg tablet (Kerendia) 10 mg PO DAILY 05/18/24 05/31/24 History oxycodone-acetaminophe n 5 mg-325 1 tab PO Q8H PRN pain 3 days #10 0 06/01/24 Unknown Rx mg tablet (Percocet) tabs ipratropium bromide 42 mcg (0.06 2 spray intranasal DAILY 06/19/24 Unknown History %) nasal spray levalbuterol tartrate 45 1 puff inhalation Q4H PRN 06/19/24 Unknown History mcg/actuation aerosol inhaler shortness of breath polysaccharide iron complex 150 mg 150 mg PO QDAY 06/19/24 Unknown History iron capsule (Ferrex) vibegron 75 mg tablet (Gemtesa) 75 mg PO QDAY 08/11/24 Unknown His tory ascorbate calcium (vitamin C) 500 1 g PO DAILY 12/22/24 Unknown His tory mg tablet coenzyme Q10 100 mg capsule 50 mg PO DAILY 12/22/24 Unknown Hi story (CoQ-10) echinacea 500 mg capsule 1,000 mg PO DAILY 12/22/24 Unknown History melatonin 10 mg capsule 10 mg PO QHS 12/22/24 Unknown Hist ory Allergy/AdvReac Type Severity Reaction Status Date / Time cephalexin monohydrate (From Allergy Swelling Verified 12/23/24 12:15 Keflex) ibuprofen Allergy Swelling Verified 12/23/24 12:15 oxaprozin (From Daypro) Allergy Swelling Verified 12/23/24 12:15 tramadol HCl (From Ultram) Allergy Swelling Verified 12/23/24 12:15 albuterol AdvReac Intermediate Other Verified 12/23/24 12:15 celecoxib (From Celebrex) AdvReac DIZZY AND Verified 12/23/24 12:15 HURTS AROUND MY LIVER Family History Other Diabetes Hypertension Surgical History Hx of bilateral cataract extraction History of cystoscopy Hx of umbilical hernia repair History of carpal tunnel surgery of left wrist Hx of tonsillectomy Hx of colonoscopy History of ureter stent Social History household members: children housing: house Smoking Status: Never smoker alcohol intake: never substance use type: does not use ROS ROS ED ROS Narrative Constitutional: Negative for fever, chills, weight loss, weakness Eyes: Negative for vision loss, vision change, doub (more content not included)... Normal [facility] Urine Cultureon 12-21-2024 [facility] Copy of report sent to Infection Control Printer [id number] 12/21/24 0842 THERESA. Urine Culture RESULTS CALLED TO ESTEBAN Art 12/21/24 0823 Becky Knight. REPORT READ BACK BY [ESTEBAN VAZQUEZ]. Urine Culture Urine Culture ESBL Klebsiella pneumoniae pne [place] Count 50,000-80,000 MARKER ESBL producing OrganismA MARKER ESBL producing OrganismA [place] Count 25,000-50,000 Escherichia coli Ampicillin Islt RACQUEL >=32 Ampicillin+Sulbac Islt RACQUEL >=32 R Cefepime Islt RACQUEL >=32 cefTRIAXone Islt RACQUEL >=64 R Ciprofloxacin Islt RACQUEL >=4 R B-Lactamase Extended Susc Islt POS Gentamicin Islt RACQUEL >=16 R levoFLOXacin Islt RACQUEL >=8 R Meropenem Islt RACQUEL <=0.25 S Nitrofurantoin Islt RACQUEL 128 R Pip+Tazo Islt RACQUEL 32 R TMP SMX Islt RACQUEL >=320 R ESBL Klebsiella pneumoniae pne: REACTION Amikacin Islt RACQUEL 4 S Eravacycline Islt RACQUEL 0.25 S Imipenem Islt RACQUEL <=0.25 Tobramycin Islt RACQUEL >=16 R Escherichia coli: REACTION Ampicillin Islt RACQUEL >=32 R Ampicillin+Sulbac Islt RACQUEL >=32 R Cefepime Islt RACQUEL <=0.12 cefTRIAXone Islt RACQUEL 32 R Ciprofloxacin Islt RACQUEL >=4 R B-Lactamase Extended Susc Islt NEG Gentamicin Islt RACQUEL <=1 S levoFLOXacin Islt RACQUEL >=8 R Meropenem Islt RACQUEL <=0.25 S Nitrofurantoin Islt RACQUEL <=16 S Pip+Tazo Islt RACQUEL <=4 S TMP SMX Islt RACQUEL >=320 R Normal [facility] Comment on above: Performed By: #### M 100.2200, L500.4050, L100.0100, M100.678 #### [facility] [address] [place], [address] Absolute lymphocyte countOrd ered By: Corby Heller on 12-18-2024 Lymphocytes Auto (Unsp spec) [#/Vol] 2.07 10*3/uL 0.83-4.51 [facility] Absolute neutrophil countOrd ered By: Corby Arron on 12-18-2024 Neutrophils (Bld) [#/Vol] 6.1 10*3/uL 2.0-7.7 [facility] Anion gap in Serum or Plasma Ordered By: Corby Heller on 12-18-2024 Anion gap [Moles/Vol] 15 mmol/L 5-15 [facility] Automated lymphocyte count a s percentage of total leukocytesOrdered By: Corby Heller on 12-18-2024 Lymphocytes/100 WBC Auto (Unsp spec) 23.0 % 19-41 [facility] BUN/creatinine ratioOrdered By: Corby Heller on 12-18-2024 Urea nitrogen/Creatinine [Mass ratio] 34.2 mg/mg High 10-20 [facility] Basophil percentageOrdered B y: Corby Heller on 12-18-2024 Basophils/100 WBC (Bld) 0.4 % 0-1 [facility] Bilirubin, totalOrdered By: Corby Heller on 12-18-2024 Bilirubin [Mass/Vol] 0.36 mg/dL 0.00-1.30 [facility] CBC W/Diff, Automatedon 11-26 Absolute Lymph 2.07 X10 3/uL Normal 0.83-4.51 [facility] Comment on above: Performed By: #### M 100.2200, L500.4050, L100.0100, M100.678 #### [facility] [address] [place], [address] Absolute Neut 6.1 X10 3/uL Normal 2.0-7.7 [facility] Comment on above: Performed By: #### M 100.2200, L500.4050, L100.0100, M100.678 #### [facility] [address] [place], [address] Basophils/100 WBC (Bld) 0.4 % Normal 0-1 [facility] Comment on above: Performed By: #### M 100.2200, L500.4050, L100.0100, M100.678 #### [facility] [address] [place], [address] Eosinophils/100 WBC (Bld) 1.9 % Normal 0-5 [facility] Comment on above: Performed By: #### M 100.2200, L500.4050, L100.0100, M100.678 #### [facility] [address] [place], [address] Erythrocyte distribution width (RBC) [Ratio] 14.4 % Normal 11.6-14.6 [facility] Comment on above: Performed By: #### M 100.2200, L500.4050, L100.0100, M100.678 #### [facility] [address] [place], [address] Hematocrit (Bld) [Volume fraction] 33.5 % Low 37-47 [facility] Comment on above: Performed By: #### M 100.2200, L500.4050, L100.0100, M100.678 #### [facility] [address] [place], [address] Hemoglobin (Bld) [Mass/Vol] 10.8 g/dL Low 12.0-15.0 [facility] Comment on above: Performed By: #### M 100.2200, L500.4050, L100.0100, M100.678 #### [facility] [address] [place], [address] IG% 0.800 Normal 0.0-0.9 [facility] Comment on above: Result Comment: IG% - Immature Granulocytes (promyelocytes, myelocytes and metamyelocytes) > 1% indicates that a LEFT SHIFT is Present. Performed By: #### M 100.2200, L500.4050, L100.0100, M100.678 #### [facility] [address] [place], [address] Lymphocytes/100 WBC (Bld) 23.0 % Normal 19-41 [facility] Comment on above: Performed By: #### M 100.2200, L500.4050, L100.0100, M100.678 #### [facility] [address] [place], [address] MCH (RBC) [Entitic mass] 30.8 pg Normal 27.0-32.0 [facility] Comment on above: Performed By: #### M 100.2200, L500.4050, L100.0100, M100.678 #### [facility] [address] [place], [address] MCHC (RBC) [Mass/Vol] 32.2 g/dL Normal 32-36 [facility] Comment on above: Performed By: #### M 100.2200, L500.4050, L100.0100, M100.678 #### [facility] [address] [place], [address] MCV (RBC) [Entitic vol] 95.4 fL Normal 81-99 [facility] Comment on above: Performed By: #### M 100.2200, L500.4050, L100.0100, M100.678 #### [facility] [address] [place], [address] Monocytes/100 WBC (Bld) 6.0 % Normal 0-10 [facility] Comment on above: Performed By: #### M 100.2200, L500.4050, L100.0100, M100.678 #### [facility] [address] [place], [address] Neutrophils/100 WBC (Bld) 67.9 % Normal 47-70 [facility] Comment on above: Performed By: #### M 100.2200, L500.4050, L100.0100, M100.678 #### [facility] [address] [place], [address] Nucleated RBC (Bld) [#/Vol] 0 10*3/uL Normal 0-5 [facility] Comment on above: Performed By: #### M 100.2200, L500.4050, L100.0100, M100.678 #### [facility] [address] [place], [address] Platelet mean volume (Bld) [Entitic vol] 9.3 fL Normal 6.2-12.0 [facility] Comment on above: Performed By: #### M 100.2200, L500.4050, L100.0100, M100.678 #### [facility] [address] [place], [address] Platelets (Bld) [#/Vol] 253 10*3/uL Normal 150-450 [facility] Comment on above: Performed By: #### M 100.2200, L500.4050, L100.0100, M100.678 #### [facility] [address] [place], [address] RBC (Bld) [#/Vol] 3.51 10*6/uL Low 4.2-5.4 [facility] Comment on above: Performed By: #### M 100.2200, L500.4050, L100.0100, M100.678 #### [facility] [address] [place], [address] RDW SD 50.0 fl High 35.1-43.9 [facility] Comment on above: Performed By: #### M 100.2200, L500.4050, L100.0100, M100.678 #### [facility] [address] [place], [address] WBC (Bld) [#/Vol] 9.0 10*3/uL Normal 4.4-11.0 [facility] Comment on above: Performed By: #### M 100.2200, L500.4050, L100.0100, M100.678 #### [facility] [address] [place], [address] Carbon dioxide, total [Moles /volume] in Central venous bloodOrdered By: Corby Heller on 12-18-2024 CO2 [Moles/Vol] 21.7 mmol/L 21.0-32.0 [facility] Chest PA and Lateralon 12-18 Chest PA and Lateral [facility] [address] [place] [address] Chest PA and Lateral MR#: [id number] Acct: [id number] Name: EDUAR CABRERA Rep #: [id number] : 1950 F 74 From: Alonso Crabtree MD PCP: Dr. Corby Heller MD Status: REG CLI Study: Chest PA and Lateral Date of Exam: 12/18/24 Exam# [id number] Ordering Dr: Corby Heller MD EXAM: XR Chest, 2 Views CLINICAL INDICATION: SOB TECHNIQUE: Frontal and lateral views of the chest. COMPARISON: No relevant prior studies available. FINDINGS: LUNGS AND PLEURAL SPACES: Unremarkable. No consolidation. No pneumothorax. HEART: Unremarkable. No cardiomegaly. MEDIASTINUM: Unremarkable. Normal mediastinal contour. BONES/JOINTS: Unremarkable. No acute fracture. RAD/Chest PA and Lateral IMPRESSION: No acute cardiopulmonary process. Reading [facility] CC: Dr. Corby Heller MD Traffic Police Officer: Signed Normal [facility] Chloride assayOrdered By: Ryder Heller on 12-18-2024 Chloride [Moles/Vol] 102 mmol/L 98-108 [facility]abolic Prof ilon 12-18-2024 Albumin [Mass/Vol] 4.0 g/dL Normal 3.4-4.8 [facility] Comment on above: Performed By: #### M 100.2200, L500.4050, L100.0100, M100.678 #### [facility] [address] [place], [address] Albumin/Globulin [Mass ratio] 1.0 {ratio} Normal 0.9-2.4 [facility] Comment on above: Performed By: #### M 100.2200, L500.4050, L100.0100, M100.678 #### [facility] [address] [place], [address] ALK PHOS 74 U/L Normal 35-104 [facility] Comment on above: Performed By: #### M 100.2200, L500.4050, L100.0100, M100.678 #### [facility] [address] [place], [address] ALT [Catalytic activity/Vol] 10 U/L Normal <=34 [facility] Comment on above: Performed By: #### M 100.2200, L500.4050, L100.0100, M100.678 #### [facility] [address] [place], [address] AST [Catalytic activity/Vol] 21 U/L Normal <=31 [facility] Comment on above: Performed By: #### M 100.2200, L500.4050, L100.0100, M100.678 #### [facility] [address] [place], [address] Bilirubin [Mass/Vol] 0.36 mg/dL Normal 0.00-1.30 [facility] Comment on above: Performed By: #### M 100.2200, L500.4050, L100.0100, M100.678 #### [facility] [address] [place], [address] BUN/CRE 34.2 RATIO High 10-20 [facility] Comment on above: Performed By: #### M 100.2200, L500.4050, L100.0100, M100.678 #### [facility] [address] [place], [address] Calcium [Mass/Vol] 9.8 mg/dL Normal 7.6-11.0 [facility] Comment on above: Performed By: #### M 100.2200, L500.4050, L100.0100, M100.678 #### [facility] [address] [place], [address] Chloride [Moles/Vol] 102 mmol/L Normal 98-108 [facility] Comment on above: Performed By: #### M 100.2200, L500.4050, L100.0100, M100.678 #### [facility] [address] [place], [address] CO2 [Moles/Vol] 21.7 mmol/L Normal 21.0-32.0 [facility] Comment on above: Performed By: #### M 100.2200, L500.4050, L100.0100, M100.678 #### [facility] [address] [place], [address] Creatinine [Mass/Vol] 1.00 mg/dL Normal 0.70-1.20 [facility] Comment on above: Performed By: #### M 100.2200, L500.4050, L100.0100, M100.678 #### [facility] [address] [place], [address] GAP 15 Normal 5-15 [facility] Comment on above: Performed By: #### M 100.2200, L500.4050, L100.0100, M100.678 #### [facility] [address] [place], [address] GFR/1.73 sq M.predicted among non-blacks MDRD (S/P/Bld) [Vol rate/Area] 59 mL/min/{1.73_m2} Low >60 [facility] Comment on above: Result Comment: mL/m in/1.73m2 CKD-EPI Creatinine Equation (2020) Performed By: #### M 100.2200, L500.4050, L100.0100, M100.678 #### [facility] [address] [place], [address] Globulin (S) [Mass/Vol] 3.9 g/dL Normal 2.2-4.2 [facility] Comment on above: Performed By: #### M 100.2200, L500.4050, L100.0100, M100.678 #### [facility] [address] [place], [address] Glucose [Mass/Vol] 176 mg/dL High 70-99 [facility] Comment on above: Performed By: #### M 100.2200, L500.4050, L100.0100, M100.678 #### [facility] [address] [place], [address] Potassium [Moles/Vol] 4.5 mmol/L Normal 3.3-5.1 [facility] Comment on above: Performed By: #### M 100.2200, L500.4050, L100.0100, M100.678 #### [facility] [address] [place], [address] Sodium [Moles/Vol] 138 mmol/L Normal 133-145 [facility] Comment on above: Performed By: #### M 100.2200, L500.4050, L100.0100, M100.678 #### [facility] [address] [place], [address] T PROT 7.9 g/dL Normal 5.9-8.4 [facility] Comment on above: Performed By: #### M 100.2200, L500.4050, L100.0100, M100.678 #### [facility] [address] [place], [address] Urea nitrogen [Mass/Vol] 34 mg/dL High 4-19 [facility] Comment on above: Performed By: #### M 100.2200, L500.4050, L100.0100, M100.678 #### [facility] [address] [place], [address] Eosinophil percentageOrdered By: Corby Heller on 12-18-2024 Eosinophils/100 WBC (Bld) 1.9 % 0-5 [facility] Erythrocyte distribution wid th ratioOrdered By: Corby Heller on 12-18-2024 Erythrocyte distribution width (RBC) [Ratio] 14.4 % 11.6-14.6 [facility] Erythrocyte distribution wid th standard deviationOrdered By: Corby Heller on 12-18-2024 Erythrocyte distribution width (RBC) [Entitic vol] 50.0 fL High 35.1-43.9 [facility] Erythrocyte distribution width (RBC) [Ratio] 50.0 fl High 35.1-43.9 [facility] GFR/1.73 sq M.predicted kyle g non-blacks MDRD (S/P/Bld) [Vol rate/Area]Ordered By: Corby Heller on 12-18-2024 Estimated GFR (MDRD) Non-Af Amer 59 Low >60 [facility] Comment on above: mL/min/1.73m2 CKD-EP I Creatinine Equation (2020) Glomerular filtration rate ( GFR) estimation/1.73 sq m using serum, plasma, or whole bOrdered By: Corby Heller on 12-18-2024 GFR/1.73 sq M.predicted among non-blacks MDRD (S/P/Bld) [Vol rate/Area] 59 mL/min/{1.73_m2} Low >60 [facility] Comment on above: mL/min/1.73m2 CKD-EP I Creatinine Equation (2020) Hematocrit Auto (Bld) [Volum e fraction]Ordered By: Corby Heller on 12-18-2024 Hematocrit (Bld) [Volume fraction] 33.5 % Low 37-47 [facility] Hemoglobin measurementOrdere d By: Corby Heller on 12-18-2024 Hemoglobin (Bld) [Mass/Vol] 10.8 g/dL Low 12.0-15.0 [facility] Immature granulocytes/100 WB C Auto (Bld)Ordered By: Corby Heller 12-18-2024 Immature granulocytes/100 WBC (Bld) 0.800 % 0.0-0.9 [facility] Comment on above: IG% - Immature Granu locytes (promyelocytes, myelocytes and metamyelocytes) > 1% indicates that a LEFT SHIFT is Present. Influenza virus A and B and SARS-CoV-2 (COVID-19) and Respiratory syncytial virus RNAOrdered By: Corby Heller on 12-18-2024 SARS-CoV-2 (COVID-19) RNA ROSEANNE+probe Ql (Unsp spec) [facility] - Chemistry and C hemistry - challengeOrdered By: Corby Heller on 12-18-2024 AST [Catalytic activity/Vol] 21 U/L <32 [facility] Lymphocytes Auto (Unsp spec) [#/Vol]Ordered By: Corby Heller 5 Lymphocytes (Bld) [#/Vol] 2.07 10*3/uL 0.83-4.51 [facility] Lymphocytes/100 WBC Auto (Un sp spec)Ordered By: Corby Heller on 12-18-2024 Lymphocytes/100 WBC (Bld) 23.0 % 19-41 [facility] M100.678on 12-18-2024 M100.678 Pending SARS-CoV-2 (COVID 19) Negative INFLUENZA A Negative INFLUENZA B Negative RSV PCR Negative Normal [facility] Comment on above: Performed By: #### M 100.2200, L500.4050, L100.0100, M100.678 #### [facility] [address] [place], [address] MCV (mean corpuscular volume ) determinationOrdered By: Corby Heller on 12-18-2024 MCV (RBC) [Entitic vol] 95.4 fL 81-99 [facility] Mean corpuscular hemoglobin (MCH) determinationOrdered By: Corby Heller on 12-18-2024 MCH (RBC) [Entitic mass] 30.8 pg 27.0-32.0 [facility] Mean corpuscular hemoglobin concentration (MCHC) determinationOrdered By: Corby Heller on 12-18-2024 MCHC (RBC) [Mass/Vol] 32.2 g/dL 32-36 [facility] Mean platelet volume determi nationOrdered By: Corby Heller on 12-18-2024 Platelet mean volume (Bld) [Entitic vol] 9.3 fL 6.2-12.0 [facility] Monocyte percentageOrdered B y: Corby Heller on 12-18-2024 Monocytes/100 WBC (Bld) 6.0 % 0-10 [facility] Neutrophil percentageOrdered By: Corby Heller on 12-18-2024 Neutrophils/100 WBC (Bld) 67.9 % 47-70 [facility] Nucleated red blood cell per centageOrdered By: Corby Heller on 12-18-2024 Nucleated RBC/100 WBC (Bld) [Ratio] 0 % 0-5 [facility] Platelet countOrdered By: Ryder Heller on 12-18-2024 Platelets (Bld) [#/Vol] 253 10*3/uL 150-450 [facility] Potassium (Unsp spec) [Mass/ Vol]Ordered By: Corby Heller on 12-18-2024 Potassium [Moles/Vol] 4.5 mmol/L 3.3-5.1 [facility] Potassium measurement (mass/ volume)Ordered By: Corby Heller on 12-18-2024 Potassium (Unsp spec) [Mass/Vol] 4.5 mmol/L 3.3-5.1 [facility] RBC Auto (Bld) [#/Vol]Ordere d By: Corby Heller on 12-18-2024 RBC (Bld) [#/Vol] 3.51 10*6/uL Low 4.2-5.4 [facility] Serum creatinine measurement (mass/volume)Ordered By: Corby Heller on 12-18-2024 Creatinine [Mass/Vol] 1.00 mg/dL 0.70-1.20 [facility] Serum globulin measurementOr dered By: Corby Heller on 12-18-2024 Globulin (S) [Mass/Vol] 3.9 g/dL 2.2-4.2 [facility] Serum glucose measurement (m ass/volume)Ordered By: Corby Heller on 12-18-2024 Glucose [Mass/Vol] 176 mg/dL High 70-99 [facility] Serum or plasma alanine saldana otransferase (ALT) measurementOrdered By: Corby Heller 12-18-2024 ALT [Catalytic activity/Vol] 10 U/L <35 [facility] Serum or plasma albumin sarbjit urement (mass/volume)Ordered By: Corby Heller on 12-18-2024 Albumin [Mass/Vol] 4.0 g/dL 3.4-4.8 [facility] Serum or plasma albumin/glob ulin mass ratioOrdered By: Corby Heller 12-18-2024 Albumin/Globulin [Mass ratio] 1.0 {ratio} 0.9-2.4 [facility] Serum or plasma alkaline louie sphatase measurementOrdered By: Corby Heller 12-18-2024 ALP [Catalytic activity/Vol] 74 U/L 35-104 [facility] Serum or plasma calcium sarbjit urement (mass/volume)Ordered By: Corby Heller on 12-18-2024 Calcium [Mass/Vol] 9.8 mg/dL 7.6-11.0 [facility] Serum or plasma urea nitroge n measurement (mass/volume)Ordered By: Corby Heller on 12-18-2024 Urea nitrogen [Mass/Vol] 34 mg/dL High 4-19 [facility] Sodium levelOrdered By: Corby Heller on 12-18-2024 Sodium [Moles/Vol] 138 mmol/L 133-145 [facility] Total proteinOrdered By: Corby Heller on 12-18-2024 Protein [Mass/Vol] 7.9 g/dL 5.9-8.4 [facility] Urine cultureOrdered By: Corby Heller on 12-18-2024 Bacteria identified Cx Nom (U) ESBL Klebsiella pneumoniae pne Abnormal [facility] Bacteria identified Cx Nom (U) Escherichia coli Abnormal [facility] White blood cell (WBC) count Ordered By: Corby Heller on 12-18-2024 WBC (Bld) [#/Vol] 9.0 10*3/uL 4.4-11.0 [facility] Urine Cultureon 11-26-2024 [facility] Copy of report sent to Infection Control Printer [id number] 11/26/24 0703 BLUCAS. ESBL Klebsiella pneumoniae pne [place] Count 80,000-100,000 MARKER ESBL producing OrganismA MARKER ESBL producing OrganismA Amikacin Islt RACQUEL 4 S Ampicillin Islt RACQUEL >=32 Ampicillin+Sulbac Islt RACQUEL >=32 R Cefepime Islt RACQUEL >=32 R Eravacycline Islt RACQUEL 0.25 S cefTRIAXone Islt RACQUEL >=64 R Ciprofloxacin Islt RACQUEL >=4 R B-Lactamase Extended Susc Islt POS Gentamicin Islt RACQUEL >=16 R Imipenem Islt RACQUEL <=0.25 S levoFLOXacin Islt RACQUEL >=8 R Meropenem Islt RACQUEL <=0.25 S Nitrofurantoin Islt RACQUEL 128 R Pip+Tazo Islt RACQUEL 32 R Tobramycin Islt RACQUEL >=16 R TMP SMX Islt RACQUEL >=320 R Normal [facility] Comment on above: Performed By: #### M 100.2200 ####[facility] [address] [place], [address] Absolute lymphocyte countOrd ered By: Corby Heller on 11-23-2024 Lymphocytes Auto (Unsp spec) [#/Vol] 2.13 10*3/uL 0.83-4.51 [facility] Absolute neutrophil countOrd ered By: Corby Heller on 11-23-2024 Neutrophils (Bld) [#/Vol] 5.3 10*3/uL 2.0-7.7 [facility] Automated lymphocyte count a s percentage of total leukocytesOrdered By: Corby Heller on 11-23-2024 Lymphocytes/100 WBC Auto (Unsp spec) 25.3 % - [facility] BUN/creatinine ratioOrdered By: Corby Heller on 11-23-2024 Urea nitrogen/Creatinine [Mass ratio] 28.7 mg/mg High 10- [facility] Basophil percentageOrdered B y: Corby Heller on 11-23-2024 Basophils/100 WBC (Bld) 0.6 % 0-1 [facility] Bilirubin, totalOrdered By: Corby Heller on 11-23-2024 Bilirubin [Mass/Vol] 0.25 mg/dL 0.00-1.30 [facility] CBC W/Diff, Automatedon 10-29 Absolute Lymph 2.13 X10 3/uL Normal 0.83-4.51 [facility] Comment on above: Performed By: #### L 506.1001, L501.9520, L100.0100, L500.4050 #### [facility] [address] [place], [address] Absolute Neut 5.3 X10 3/uL Normal 2.0-7.7 [facility] Comment on above: Performed By: #### L 506.1001, L501.9520, L100.0100, L500.4050 #### [facility] [address] [place], [address] Basophils/100 WBC (Bld) 0.6 % Normal 0-1 [facility] Comment on above: Performed By: #### L 506.1001, L501.9520, L100.0100, L500.4050 #### [facility] [address] [place], [address] Eosinophils/100 WBC (Bld) 2.5 % Normal 0-5 [facility] Comment on above: Performed By: #### L 506.1001, L501.9520, L100.0100, L500.4050 #### [facility] [address] [place], [address] Erythrocyte distribution width (RBC) [Ratio] 14.6 % Normal 11.6-14.6 [facility] Comment on above: Performed By: #### L 506.1001, L501.9520, L100.0100, L500.4050 #### [facility] [address] [place], [address] Hematocrit (Bld) [Volume fraction] 33.7 % Low 37-47 [facility] Comment on above: Performed By: #### L 506.1001, L501.9520, L100.0100, L500.4050 #### [facility] [address] [place], [address] Hemoglobin (Bld) [Mass/Vol] 10.5 g/dL Low 12.0-15.0 [facility] Comment on above: Performed By: #### L 506.1001, L501.9520, L100.0100, L500.4050 #### [facility] [address] [place], [address] IG% 0.600 Normal 0.0-0.9 [facility] Comment on above: Result Comment: IG% - Immature Granulocytes (promyelocytes, myelocytes and metamyelocytes) > 1% indicates that a LEFT SHIFT is Present. Performed By: #### L 506.1001, L501.9520, L100.0100, L500.4050 #### [facility] [address] [place], [address] Lymphocytes/100 WBC (Bld) 25.3 % Normal 19-41 [facility] Comment on above: Performed By: #### L 506.1001, L501.9520, L100.0100, L500.4050 #### [facility] [address] [place], [address] MCH (RBC) [Entitic mass] 30.3 pg Normal 27.0-32.0 [facility] Comment on above: Performed By: #### L 506.1001, L501.9520, L100.0100, L500.4050 #### [facility] [address] [place], [address] MCHC (RBC) [Mass/Vol] 31.2 g/dL Low 32-36 [facility] Comment on above: Performed By: #### L 506.1001, L501.9520, L100.0100, L500.4050 #### [facility] [address] [place], [address] MCV (RBC) [Entitic vol] 97.1 fL Normal 81-99 [facility] Comment on above: Performed By: #### L 506.1001, L501.9520, L100.0100, L500.4050 #### [facility] [address] [place], [address] Monocytes/100 WBC (Bld) 8.1 % Normal 0-10 [facility] Comment on above: Performed By: #### L 506.1001, L501.9520, L100.0100, L500.4050 #### [facility] [address] [place], [address] Neutrophils/100 WBC (Bld) 62.9 % Normal 47-70 [facility] Comment on above: Performed By: #### L 506.1001, L501.9520, L100.0100, L500.4050 #### [facility] [address] [place], [address] Nucleated RBC (Bld) [#/Vol] 0 10*3/uL Normal 0-5 [facility] Comment on above: Performed By: #### L 506.1001, L501.9520, L100.0100, L500.4050 #### [facility] [address] [place], [address] Platelet mean volume (Bld) [Entitic vol] 9.5 fL Normal 6.2-12.0 [facility] Comment on above: Performed By: #### L 506.1001, L501.9520, L100.0100, L500.4050 #### [facility] [address] [place], [address] Platelets (Bld) [#/Vol] 231 10*3/uL Normal 150-450 [facility] Comment on above: Performed By: #### L 506.1001, L501.9520, L100.0100, L500.4050 #### [facility] [address] [place], [address] RBC (Bld) [#/Vol] 3.47 10*6/uL Low 4.2-5.4 [facility] Comment on above: Performed By: #### L 506.1001, L501.9520, L100.0100, L500.4050 #### [facility] [address] [place], [address] RDW SD 51.7 fl High 35.1-43.9 [facility] Comment on above: Performed By: #### L 506.1001, L501.9520, L100.0100, L500.4050 #### [facility] [address] [place], [address] WBC (Bld) [#/Vol] 8.4 10*3/uL Normal 4.4-11.0 [facility] Comment on above: Performed By: #### L 506.1001, L501.9520, L100.0100, L500.4050 #### [facility] [address] [place], [address] Carbon dioxide measurementOr dered By: Corby Heller on 11-23-2024 CO2 [Moles/Vol] 23.9 mmol/L 22.0-29.0 [facility] Chloride measurementOrdered By: Corby Heller on 11-23-2024 Chloride [Moles/Vol] 101 mmol/L 96-108 [facility] Prof ilon 11-23-2024 Albumin [Mass/Vol] 3.7 g/dL Normal 3.4-4.8 [facility] Comment on above: Performed By: #### L 100.0500, L500.4050 #### [facility] [address] [place], [address] Albumin/Globulin [Mass ratio] 0.9 {ratio} Normal 0.9-2.4 [facility] Comment on above: Performed By: #### L 100.0500, L500.4050 #### [facility] [address] [place], [address] ALK PHOS 77 U/L Normal 35-104 [facility] Comment on above: Performed By: #### L 100.0500, L500.4050 #### [facility] [address] [place], [address] ALT [Catalytic activity/Vol] 12 U/L Normal <=34 [facility] Comment on above: Result Comment: Hemo lysis present, Results??could be affected. ?? Performed By: #### L 100.0500, L500.4050 #### [facility] [address] [place], [address] Anion gap [Moles/Vol] 12 mmol/L Normal 5-15 [facility] Comment on above: Performed By: #### L 100.0500, L500.4050 #### [facility] [address] [place], [address] AST [Catalytic activity/Vol] 32 U/L Normal <=31 [facility] Comment on above: Result Comment: Hemo lysis present, Results??could be affected. ?? Performed By: #### L 100.0500, L500.4050 #### [facility] [address] [place], [address] Bilirubin [Mass/Vol] 0.25 mg/dL Normal 0.00-1.30 [facility] Comment on above: Performed By: #### L 100.0500, L500.4050 #### [facility] [address] [place], [address] BUN/CRE 28.7 RATIO High 10-20 [facility] Comment on above: Performed By: #### L 100.0500, L500.4050 #### [facility] [address] [place], [address] Calcium [Mass/Vol] 9.7 mg/dL Normal 7.6-11.0 [facility] Comment on above: Performed By: #### L 100.0500, L500.4050 #### [facility] [address] [place], [address] Chloride [Moles/Vol] 101 mmol/L Normal 96-108 [facility] Comment on above: Performed By: #### L 100.0500, L500.4050 #### [facility] [address] [place], [address] CO2 [Moles/Vol] 23.9 mmol/L Normal 22.0-29.0 [facility] Comment on above: Performed By: #### L 100.0500, L500.4050 #### [facility] [address] [place], [address] Creatinine [Mass/Vol] 1.4 mg/dL High 0.6-1.0 [facility] Comment on above: Performed By: #### L 100.0500, L500.4050 #### [facility] [address] [place], [address] GFR/1.73 sq M.predicted among non-blacks MDRD (S/P/Bld) [Vol rate/Area] 41 mL/min/{1.73_m2} Low >60 [facility] Comment on above: Result Comment: mL/m in/1.73m2 CKD-EPI Creatinine Equation (2020) Performed By: #### L 100.0500, L500.4050 #### [facility] [address] [place], [address] Globulin (S) [Mass/Vol] 4.0 g/dL Normal 2.2-4.2 [facility] Comment on above: Performed By: #### L 100.0500, L500.4050 #### [facility] [address] [place], [address] Glucose [Mass/Vol] 166 mg/dL High 70-99 [facility] Comment on above: Performed By: #### L 100.0500, L500.4050 #### [facility] [address] [place], [address] Potassium [Moles/Vol] 5.3 mmol/L High 3.3-5.1 [facility] Comment on above: Result Comment: Hemo lysis present, Results??could be affected. ?? Performed By: #### L 100.0500, L500.4050 #### [facility] [address] [place], [address] Sodium [Moles/Vol] 137 mmol/L Normal 133-145 [facility] Comment on above: Performed By: #### L 100.0500, L500.4050 #### [facility] [address] [place], [address] T PROT 7.7 g/dL Normal 5.9-8.4 [facility] Comment on above: Performed By: #### L 100.0500, L500.4050 #### [facility] [address] [place], [address] Urea nitrogen [Mass/Vol] 39 mg/dL High 4-19 [facility] Comment on above: Performed By: #### L 100.0500, L500.4050 #### [facility] [address] [place], [address] Creatinine [Moles/Vol]Ordere d By: Corby Heller on 11-23-2024 Creatinine [Mass/Vol] 1.4 mg/dL High 0.6-1.0 [facility] Eosinophil percentageOrdered By: Corby Heller on 11-23-2024 Eosinophils/100 WBC (Bld) 2.5 % 0-5 [facility] Erythrocyte distribution wid th ratioOrdered By: Corby Heller on 11-23-2024 Erythrocyte distribution width (RBC) [Ratio] 14.6 % 11.6-14.6 [facility] Erythrocyte distribution wid th standard deviationOrdered By: Corby Heller on 11-23-2024 Erythrocyte distribution width (RBC) [Entitic vol] 51.7 fL High 35.1-43.9 [facility] Erythrocyte distribution width (RBC) [Ratio] 51.7 fl High 35.1-43.9 [facility] GFR/1.73 sq M.predicted kyle g non-blacks MDRD (S/P/Bld) [Vol rate/Area]Ordered By: Corby Heller on 11-23-2024 Estimated GFR (MDRD) Non-Af Amer 41 Low >60 [facility] Comment on above: mL/min/1.73m2 CKD-EP I Creatinine Equation (2020) Glomerular filtration rate ( GFR) estimation/1.73 sq m using serum, plasma, or whole bOrdered By: Corby Heller on 11-23-2024 GFR/1.73 sq M.predicted among non-blacks MDRD (S/P/Bld) [Vol rate/Area] 41 mL/min/{1.73_m2} Low >60 [facility] Comment on above: mL/min/1.73m2 CKD-EP I Creatinine Equation (2020) Hematocrit Auto (Bld) [Volum e fraction]Ordered By: Corby Heller on 11-23-2024 Hematocrit (Bld) [Volume fraction] 33.7 % Low 37-47 [facility] Hemoglobin measurementOrdere d By: Corby Heller 11-23-2024 Hemoglobin (Bld) [Mass/Vol] 10.5 g/dL Low 12.0-15.0 [facility] Immature granulocytes/100 WB C Auto (Bld)Ordered By: Corby Heller on 11-23-2024 Immature granulocytes/100 WBC (Bld) 0.600 % 0.0-0.9 [facility] Comment on above: IG% - Immature Granu locytes (promyelocytes, myelocytes and metamyelocytes) > 1% indicates that a LEFT SHIFT is Present. L506.1001on 11-23-2024 Vitamin D 25-OH 40.8 ng/mL Normal 30-100 [facility] Comment on above: Result Comment: Danelle min D Status Deficiency: <20 ng/mL (50nmol/L) Insufficiency: 20-30 ng/mL (50-75 nmol/L) Sufficiency: 30-100 ng/mL (75-250 nmol/L) Toxicity: >100 ng/mL (>250 nmol/L) Performed By: #### L 100.0500, L500.4050 #### [facility] [address] [place], [address] Laboratory - Chemistry and C hemistry - challengeOrdered By: Corby Heller on 11-23-2024 AST [Catalytic activity/Vol] 32 U/L <32 [facility] Comment on above: Hemolysis present, R esults could be affected. Lymphocytes Auto (Unsp spec) [#/Vol]Ordered By: Corby Heller on 11-23-2024 Lymphocytes (Bld) [#/Vol] 2.13 10*3/uL 0.83-4.51 [facility] Lymphocytes/100 WBC Auto (Un sp spec)Ordered By: Corby Heller on 11-23-2024 Lymphocytes/100 WBC (Bld) 25.3 % 19-41 [facility] MCV (mean corpuscular volume ) determinationOrdered By: Corby Heller on 11-23-2024 MCV (RBC) [Entitic vol] 97.1 fL 81-99 [facility] Mean corpuscular hemoglobin (MCH) determinationOrdered By: Corby Heller on 11-23-2024 MCH (RBC) [Entitic mass] 30.3 pg 27.0-32.0 [facility] Mean corpuscular hemoglobin concentration (MCHC) determinationOrdered By: Corby Heller on 11-23-2024 MCHC (RBC) [Mass/Vol] 31.2 g/dL Low 32-36 [facility] Mean platelet volume determi nationOrdered By: Corby Heller on 11-23-2024 Platelet mean volume (Bld) [Entitic vol] 9.5 fL 6.2-12.0 [facility] Monocyte percentageOrdered B y: Corby Heller on 11-23-2024 Monocytes/100 WBC (Bld) 8.1 % 0-10 [facility] Neutrophil percentageOrdered By: Corby Heller on 11-23-2024 Neutrophils/100 WBC (Bld) 62.9 % 47-70 [facility] No Panel InformationOrdered By: Corby Heller on 11-23-2024 Vitamin D 25-Hydroxy 40.8 ng/mL 30-100 [facility] Comment on above: Vitamin D StatusDefi ciency: <20 ng/mL (50nmol/L)Insufficiency: 20-30 ng/mL (50-75 nmol/L)Sufficiency: 30-100 ng/mL (75-250 nmol/L)Toxicity: >100 ng/mL (>250 nmol/L) Nucleated red blood cell per centageOrdered By: Corby Heller on 11-23-2024 Nucleated RBC/100 WBC (Bld) [Ratio] 0 % 0-5 [facility] Platelet countOrdered By: Ryder Heller on 11-23-2024 Platelets (Bld) [#/Vol] 231 10*3/uL 150-450 [facility] RBC Auto (Bld) [#/Vol]Ordere d By: Corby Heller on 11-23-2024 RBC (Bld) [#/Vol] 3.47 10*6/uL Low 4.2-5.4 [facility] Serum globulin measurementOr dered By: Corby Heller 11-23-2024 Globulin (S) [Mass/Vol] 4.0 g/dL 2.2-4.2 [facility] Serum glucose measurement (m ass/volume)Ordered By: Corby Heller on 11-23-2024 Glucose [Mass/Vol] 166 mg/dL High 70-99 [facility] Serum or plasma alanine saldana otransferase (ALT) measurementOrdered By: Corby Heller on 11-23-2024 ALT [Catalytic activity/Vol] 12 U/L <35 [facility] Comment on above: Hemolysis present, R esults could be affected. Serum or plasma albumin sarbjit urement (mass/volume)Ordered By: Corby Heller 11-23-2024 Albumin [Mass/Vol] 3.7 g/dL 3.4-4.8 [facility] Serum or plasma albumin/glob ulin mass ratioOrdered By: Corby Heller 11-23-2024 Albumin/Globulin [Mass ratio] 0.9 {ratio} 0.9-2.4 [facility] Serum or plasma alkaline louie sphatase measurementOrdered By: Corby Heller 11-23-2024 ALP [Catalytic activity/Vol] 77 U/L 35-104 [facility] Serum or plasma anion gap de termination (moles/volume)Ordered By: Corby Heller 11-23-2024 Anion gap [Moles/Vol] 12 mmol/L 5-15 [facility] Serum or plasma calcium sarbjit urement (mass/volume)Ordered By: Corby Heller 11-23-2024 Calcium [Mass/Vol] 9.7 mg/dL 7.6-11.0 [facility] Serum or plasma creatinine m easurement (moles/volume)Ordered By: Corby Heller 11-23-2024 Creatinine [Moles/Vol] 1.4 mg/dL High 0.6-1.0 [facility] Serum or plasma potassium me asurementOrdered By: Corby Arron on 11-23-2024 Potassium [Moles/Vol] 5.3 mmol/L High 3.3-5.1 [facility] Comment on above: Hemolysis present, R esults could be affected. Serum or plasma sodium measu rement (moles/volume)Ordered By: Corby Heller on 11-23-2024 Sodium [Moles/Vol] 137 mmol/L 133-145 [facility] Serum or plasma urea nitroge n measurement (mass/volume)Ordered By: Corby Heller on 11-23-2024 Urea nitrogen [Mass/Vol] 39 mg/dL High 4-19 [facility] TSH DL <= 0.005 mIU/L QnOrde red By: Corby Heller on 11-23-2024 Thyroid Stimulating Hormone (TSH) 5.760 uIU/mL High 0.300-4.200 [facility] TSH Qn 5.760 uIU/mL High 0.300-4.200 [facility] Thyroid Stim Hormone (TSH)on 11-23-2024 TSH 5.760 uIU/mL High 0.300-4.200 [facility] Comment on above: Performed By: #### L 100.0500, L500.4050 #### [facility] [address] [place], [address] Total proteinOrdered By: Corby Heller on 11-23-2024 Protein [Mass/Vol] 7.7 g/dL 5.9-8.4 [facility] Urine cultureOrdered By: Corby Heller on 11-23-2024 Bacteria identified Cx Nom (U) ESBL Klebsiella pneumoniae pne Abnormal [facility] White blood cell (WBC) count Ordered By: Corby Arron on 11-23-2024 WBC (Bld) [#/Vol] 8.4 10*3/uL 4.4-11.0 [facility] Abdomen Single Viewon 2023 Abdomen Single View [facility] [address] [place], [place] [id number] Abdomen Single View MR#: [id number] Acct: [id number] Name: EDUAR CABRERA Rep #: [id number] : 1950 F 74 From: Tahir Ferguson MD PCP: Dr. Corby Heller MD Status: REG CLI Study: Abdomen Single View Date of Exam: 09/11/24 Exam# [id number] Ordering Dr: Marie Caldera MD [id number] STUDY: X-RAY - ABDOMEN/PELVIS REASON FOR EXAM: Female, 74 years old. RENAL STONES TECHNIQUE: Single AP view of the abdomen / pelvis. COMPARISON: None. FINDINGS: Normal visualized lung bases. There is an unremarkable bowel gas pattern. The visualized liver, spleen and kidneys are grossly normal in size and morphology. Normal soft tissue structures. Normal visualized osseous structures. RAD/Abdomen Single View IMPRESSION: Normal x-ray examination of the abdomen and pelvis. Electronically Signed: Tahir Ferguson MD at 11:53 EST , CC: Dr. Marie Caldera MD; Dr. Corby Heller MD Traffic Police Officer: Signed Normal [facility] Abdomen/Pelvis without Conto n 08-25-2024 Abdomen/Pelvis without Cont [facility] [address] [place] [address] Abdomen/Pelvis without Cont MR#: [id number] Acct: [id number] Name: EDUAR CABRERA Rep #: [id number] : 1950 F 74 From: Vladimir Whelan PCP: Dr. Corby Heller MD Status: REG CLI Study: Abdomen/Pelvis without Cont Date of Exam: 07/29 06/20 Exam# [id number] Ordering Dr: Marie Caldera MD [id number] STUDY: CT ABDOMEN AND PELVIS WITHOUT CONTRAST REASON FOR EXAM: Female, 74 years old. PAIN (B) KIDNEY STONE RADIATION DOSAGE (If Supplied By Facility): CTDIvol = ( 29.18 ) mGy, DLP = ( 1582.11 ) mGycm TECHNIQUE: Transaxial images were obtained from the dome of the diaphragm to the symphysis pubis without oral contrast, and without intravenous contrast. Sagittal and coronal images were reconstructed. Individualized dose optimization techniques were used for this CT. The protocol utilizes one or more of the following dose reduction techniques: automated exposure control, adjustment of mA and/or kV according to patient size,and/or use of iterative reconstruction technique. COMPARISON: CT abdomen and pelvis June 22, 2024. FINDINGS: The visualized lung bases are unremarkable. Cardiomegaly and calcific coronary artery disease. Normal liver. Normal gallbladder and extrahepatic biliary system. Normal spleen. Normal pancreas. Normal bilateral adrenal glands. Bilateral nonobstructing nephroliths measuring up to several millimeters on the right. Small hiatal hernia. Normal small intestine. Colonic diverticulosis. Increased stool throughout the colon. Appendix not identified. Calcified plaque along the aorta and its branches. Normal inferior vena cava. Normal retroperitoneum. Normal urinary bladder. Uterus normal. Anterior abdominal wall mesh. Fat-containing umbilical hernia. Normal osseous structures. CT/Abdomen/Pelvis without Cont IMPRESSION: Bilateral nonobstructing nephroliths. Increased stool. Electronically Signed: Vladimir Barbosa MD at 20:00 EST , CC: Dr. Marie Caldera MD; Dr. Corby Heller MD Traffic Police Officer: Signed Normal [facility] Orthopedic Visit Reporton Orthopedic Visit Report [facility] [facility] [address] [place] [address] OFFICE VISIT Date of Service: 08/18/24 MR#: [id number] Acct: [id number] Name: EDUAR CABRERA Rep #: [id number] : 1950 Provider: SAMANTHA Suero Age/Sex: 74/F Location: [facility].[place] Status: Signed Intake Vital Signs 06/01/24 08:05 07/19/24 10:35 Height 5 ft 2 in 5 ft 2 in Intake Visit Reasons: BILATERAL KNEES Chief Complaint: 3rd Euflexxa BL knees Is patient in pain?: Yes (BL knees) Pain scale (1-10): 2 Allergies cephalexin monohydrate (From Keflex) Allergy (Verified 08/18/24 11:40) Swelling ibuprofen Allergy (Verified 08/18/24 11:40) Swelling oxaprozin (From Daypro) Allergy (Verified 08/18/24 11:40) Swelling tramadol HCl (From Ultram) Allergy (Verified 08/18/24 11:40) Swelling albuterol Adverse Reaction (Intermediate, Verified 08/18/24 11:40) Other celecoxib (From Celebrex) Adverse Reaction (Verified 08/18/24 11:40) DIZZY AND HURTS AROUND MY LIVER Medications ???Medication ???Instructions ???Recorded ???Confirmed ???Type fluticasone propionate 50 2 spray NASAL DAILY allergies 12/07/16 08/18/24 History mcg/actuation nasal spray,suspension citalopram 20 mg tablet 20 mg PO QHS DEPRESSION 04/26/21 08/18/24 History levothyroxine 25 mcg tablet 25 mcg PO DAILY thyroid 04/29/21 08/18/24 History lovastatin 40 mg tablet 40 mg PO QHS cholesterol 04/29/21 08/18/24 History pioglitazone 30 mg tablet 30 mg PO DAILY DM 06/25/23 08/18/24 History ropinirole 2 mg tablet 2 mg PO QHS RLS 06/25/23 08/18/24 History glucosamine 375 [id number]-gae 3 tab PO DAILY 08/02/23 08/18/24 History no1 500 mg-C 15 mg-gianni 0.5 mg tablet (Glucosamine-Chondroit in-MSM Complex) metformin 500 mg tablet 500 mg PO BID 08/02/23 08/18/24 History sour waldron extract 1,000 mg 1,000 mg PO DAILY 08/02/23 08/18/24 History capsule (Tart Waldron Extract) cranberry 400 mg capsule 400 mg PO DAILY 11/03/23 08/18/24 History vitamin B complex 1 tab PO DAILY 11/23/23 08/18/24 History budesonide 0.5 mg/2 mL suspension 0.5 mg inhalation Q12H PRN PRN 03/23/24 08/18/24 History for nebulization breathing finerenone 10 mg tablet (Kerendia) 10 mg PO DAILY 05/18/24 08/18/24 History oxycodone-acetaminophe n 5 mg-325 1 tab PO Q8H PRN pain 3 days #10 06/01/24 08/18/24 Rx mg tablet (Percocet) tabs phenazopyridine 100 mg tablet 100 mg PO TID #30 TABLETS 06/01/24 08/18/24 Rx benzonatate 200 mg capsule 200 mg PO TID 06/19/24 08/18/24 History ipratropium bromide 42 mcg (0.06 intranasal 06/19/24 08/18/24 History %) nasal spray levalbuterol tartrate 45 1 puff inhalation Q4H PRN 06/19/24 08/18/24 History mcg/actuation aerosol inhaler losartan 100 mg tablet 100 mg PO QDAY 06/19/24 08/18/24 History polysaccharide iron complex 150 mg 150 mg PO QDAY 06/19/24 08/18/24 History iron capsule (Ferrex) potassium chloride 20 mEq 20 meq PO QDAY 06/19/24 08/18/24 History tablet,extended release(part/cryst) (Klor-Con M) vibegron 75 mg tablet (Gemtesa) 75 mg PO QDAY 08/11/24 08/18/24 History Have you fallen in the past year?: Yes PFSH Medical History BiPAP (biphasic positive airway pressure) dependence History of diverticulitis Restless legs MRSA infection Wears glasses Post-menopausal Alcohol use Thyroid disease Arthritis High cholesterol Back pain Injury of head and neck Non-smoker Shortness of breath on exertion History of pain when walking History of echocardiogram Sinus tachycardia by electrocardiogram Anemia Thrombocytopenia Depression Anxiety Osteoarthritis Kidney stones Asthma Hypertension Diabetes Fibromyalgia Foot arch pain COVID-19 Surgical History Hx of bilateral cataract extraction History of cystoscopy Hx of umbilical hernia repair History of carpal tunnel surgery of left wrist Hx of tonsillectomy Hx of colonoscopy History of ureter stent Family History Other Diabetes Hypertension Social History household members: children housing: house Smoking Status: Never smoker alcohol intake: never substance use type: does not use HPI BILATERAL KNEES Details: This documentation accurately reflects the service provided and the decisions made by Shana cortés PA 08/18/24 1138. Part of today???s visit was documented by Kiera Juarez LPN, acting as scribe. EDUAR CABRERA is a 74 year old F here today for 3rd Euflexxa injection in BL knees. Denies any issues with the last 2 injections. Does believe that she has noticed some of improvement in her knee pain since the start of the i (more content not included)... Normal [facility] Orthopedic Visit Reporton Orthopedic Visit Report [facility] [address] [place] [address] OFFICE VISIT Date of Service: 08/11/24 MR#: [id number] Acct: [id number] Name: EDUAR CABRERA Rep #: [id number] : 1950 Provider: SAMANTHA Suero Age/Sex: 74/F Location: [facility].[place] Status: Signed Intake Vital Signs 07/19/24 10:35 Height 5 ft 2 in Intake Visit Reasons: BILATERAL KNEES Chief Complaint: bilateral knee pain Accompanied by: Self Is patient in pain?: Yes (stiffness) Pain scale (1-10): 8 Allergies cephalexin monohydrate (From Keflex) Allergy (Verified 08/11/24 11:51) Swelling ibuprofen Allergy (Verified 08/11/24 11:51) Swelling oxaprozin (From Daypro) Allergy (Verified 08/11/24 11:51) Swelling tramadol HCl (From Ultram) Allergy (Verified 08/11/24 11:51) Swelling albuterol Adverse Reaction (Intermediate, Verified 08/11/24 11:51) Other celecoxib (From Celebrex) Adverse Reaction (Verified 08/11/24 11:51) DIZZY AND HURTS AROUND MY LIVER Medications ???Medication ???Instructions ???Recorded ???Confirmed ???Type fluticasone propionate 50 2 spray NASAL DAILY allergies 12/07/16 08/04/24 History mcg/actuation nasal spray,suspension citalopram 20 mg tablet 20 mg PO QHS DEPRESSION 04/26/21 08/04/24 History levothyroxine 25 mcg tablet 25 mcg PO DAILY thyroid 04/29/21 08/04/24 History lovastatin 40 mg tablet 40 mg PO QHS cholesterol 04/29/21 08/04/24 History pioglitazone 30 mg tablet 30 mg PO DAILY DM 06/25/23 08/04/24 History ropinirole 2 mg tablet 2 mg PO QHS RLS 06/25/23 08/04/24 History glucosamine 375 ct-[id number]-uiz 3 tab PO DAILY 08/02/23 08/04/24 History no1 500 mg-C 15 mg-gianni 0.5 mg tablet (Glucosamine-Chondroit in-MSM Complex) metformin 500 mg tablet 500 mg PO BID 08/02/23 08/04/24 History sour waldron extract 1,000 mg 1,000 mg PO DAILY 08/02/23 08/04/24 History capsule (Tart Waldron Extract) cranberry 400 mg capsule 400 mg PO DAILY 11/03/23 08/04/24 History vitamin B complex 1 tab PO DAILY 11/23/23 08/04/24 History budesonide 0.5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 [place], [address] CA CARBONATE TNP Normal . [facility] Comment on above: Performed By: #### L 100.0500, L500.4050 #### [facility] [address] [place], [address] CA HYDROG PHOS TNP Normal . [facility] Comment on above: Performed By: #### L 100.0500, L500.4050 #### [facility] [address] [place], [address] CA OXAL DIHYDR 20 Normal . [facility] Comment on above: Performed By: #### L 100.0500, L500.4050 #### [facility] [address] [place], [address] CA OXAL MONOHYD 80 Normal . [facility] Comment on above: Performed By: #### L 100.0500, L500.4050 #### [facility] [address] [place], [address] CA PHOSPHATE TNP Normal . [facility] Comment on above: Performed By: #### L 100.0500, L500.4050 #### [facility] [address] [place], [address] CELL MATERIAL TNP Normal . [facility] Comment on above: Performed By: #### L 100.0500, L500.4050 #### [facility] [address] [place], [address] CHOLESTEROL TNP Normal . [facility] Comment on above: Performed By: #### L 100.0500, L500.4050 #### [facility] [address] [place], [address] Color (U) Montes Normal . [facility] Comment on above: Performed By: #### L 100.0500, L500.4050 #### [facility] [address] [place], [address] COMMENT TNP Normal . [facility] Comment on above: Performed By: #### L 100.0500, L500.4050 #### [facility] [address] [place], [address] COMMENT Comment Normal . [facility] Comment on above: Result Comment: Maryam mobley questions regarding Calculi Analysis contact [employer] at: [phone]. Performed By: #### L 100.0500, L500.4050 #### [facility] [address] [place], [address] Result Comment: Calc dorian report will follow via computer, mail or quality assurance coach delivery. CYSTINE TNP Normal . [facility] Comment on above: Performed By: #### L 100.0500, L500.4050 #### [facility] [address] [place], [address] Disclaimer Comment Normal . [facility] Comment on above: Result Comment: This test was developed and its performance characteristics determined by [employer]. It has not been cleared or approved by the Food and Drug Administration. Performed at: [address] [id number] Sanitary Aide: Nida Mayer PhD, Phone: [phone] Performed By: #### L 100.0500, L500.4050 #### [facility] [address] [place], [address] DRIED BLOOD TNP Normal . [facility] Comment on above: Performed By: #### L 100.0500, L500.4050 #### [facility] [address] [place], [address] MAG ANA PHOS TNP Normal . [facility] Comment on above: Performed By: #### L 100.0500, L500.4050 #### [facility] [address] [place], [address] NA ACID URATE TNP Normal . [facility] Comment on above: Performed By: #### L 100.0500, L500.4050 #### [facility] [address] [place], [address] NEWBERYITE TNP Normal . [facility] Comment on above: Performed By: #### L 100.0500, L500.4050 #### [facility] [address] [place], [address] PHOTO Comment Normal . [facility] Comment on above: Result Comment: Yoandy gibbons will follow under a separate cover Performed By: #### L 100.0500, L500.4050 #### [facility] [address] [place], [address] SIZE 4x3 Normal . [facility] Comment on above: Result Comment: Mult iple pieces received. Dimensions of the largest piece reported. Performed By: #### L 100.0500, L500.4050 #### [facility] [address] [place], [address] SOURCE Kidney Normal . [facility] Comment on above: Performed By: #### L 100.0500, L500.4050 #### [facility] [address] [place], [address] TRIAMTERENE TNP Normal . [facility] Comment on above: Performed By: #### L 100.0500, L500.4050 #### [facility] [address] [place], [address] URIC ACID TNP Normal . [facility] Comment on above: Performed By: #### L 100.0500, L500.4050 #### [facility] [address] [place], [address] URIC ACID DIHYD TNP Normal . [facility] Comment on above: Performed By: #### L 100.0500, L500.4050 #### [facility] [address] [place], [address] WEIGHT 50 mg Normal . [facility] Comment on above: Performed By: #### L 100.0500, L500.4050 #### [facility] [address] [place], [address] Basic Metabolic Profile (BMP )on 06-01-2024 BUN/CRE 19.6 RATIO Normal 10-20 [facility] Comment on above: Performed By: #### M 100.2200, L500.4050, L100.0100, M100.678 #### [facility] [address] [place], [address] CA,Total 9.8 mg/dL Normal 8.5-10.1 [facility] Comment on above: Performed By: #### M 100.2200, L500.4050, L100.0100, M100.678 #### [facility] [address] [place], [address] Chloride [Moles/Vol] 106 mmol/L Normal 98-107 [facility] Comment on above: Performed By: #### M 100.2200, L500.4050, L100.0100, M100.678 #### [facility] [address] [place], [address] CO2 [Moles/Vol] 24.0 mmol/L Normal 21.0-32.0 [facility] Comment on above: Performed By: #### M 100.2200, L500.4050, L100.0100, M100.678 #### [facility] [address] [place], [address] Creatinine [Mass/Vol] 1.53 mg/dL High 0.55-1.02 [facility] Comment on above: Result Comment: The validity of the calculated GFR GFRAA in patients over 70 years has not been determined. Clinical correlation is essential. Performed By: #### M 100.2200, L500.4050, L100.0100, M100.678 #### [facility] [address] [place], [address] ECRCL 38.15 ml/min Normal [facility] Comment on above: Performed By: #### M 100.2200, L500.4050, L100.0100, M100.678 #### [facility] [address] [place], [address] EST GFR - AA 43 mL/min Low >60 [facility] Comment on above: Result Comment: Afri can Northern Irish GFR Calc Performed By: #### M 100.2200, L500.4050, L100.0100, M100.678 #### [facility] [address] [place], [address] GAP 7 Normal 5-15 [facility] Comment on above: Performed By: #### M 100.2200, L500.4050, L100.0100, M100.678 #### [facility] [address] [place], [address] GFR/1.73 sq M.predicted among non-blacks MDRD (S/P/Bld) [Vol rate/Area] 35 mL/min/{1.73_m2} Low >60 [facility] Comment on above: Result Comment: Non- GFR Calc Performed By: #### M 100.2200, L500.4050, L100.0100, M100.678 #### [facility] [address] [place], [address] Glucose [Mass/Vol] 117 mg/dL High 74-106 [facility] Comment on above: Result Comment: Fast ing Glucose result from 100 to 125 mg/dL suggests IMPAIRED HOMEOSTASIS per A.D.A. criteria. Performed By: #### M 100.2200, L500.4050, L100.0100, M100.678 #### [facility] [address] [place], [address] Potassium [Moles/Vol] 4.6 mmol/L Normal 3.5-5.1 [facility] Comment on above: Performed By: #### M 100.2200, L500.4050, L100.0100, M100.678 #### [facility] [address] [place], [address] Sodium [Moles/Vol] 137 mmol/L Normal 136-145 [facility] Comment on above: Performed By: #### M 100.2200, L500.4050, L100.0100, M100.678 #### [facility] [address] [place], [address] Urea nitrogen [Mass/Vol] 30 mg/dL High 7-18 [facility] Comment on above: Performed By: #### M 100.2200, L500.4050, L100.0100, M100.678 #### [facility] [address] [place], [address] Bedside Glucoseon 06-01-2024 FINGERSTICK GLU 113 mg/dL High 74-106 [facility] Comment on above: Result Comment: MAHAD BUCKLEY OF PATIENT CARE PER NURSING PROTOCOL Performed By: #### L 100.0500, L500.4050 #### [facility] [address] [place], [address] CBC-Complete Blood Cnt No Di ffon 06-01-2024 Erythrocyte distribution width (RBC) [Ratio] 14.9 % High 11.6-14.6 [facility] Comment on above: Performed By: #### L 500.2500, L100.0500 ####[facility] [address] [place], [address] Hematocrit (Bld) [Volume fraction] 32.6 % Low 37-47 [facility] Comment on above: Performed By: #### L 500.2500, L100.0500 ####[facility] [address] [place], [address] Hemoglobin (Bld) [Mass/Vol] 10.0 g/dL Low 12.0-15.0 [facility] Comment on above: Performed By: #### L 500.2500, L100.0500 ####[facility] [address] [place], [address] MCH (RBC) [Entitic mass] 29.4 pg Normal 27.0-32.0 [facility] Comment on above: Performed By: #### L 500.2500, L100.0500 ####[facility] [address] [place], [address] MCHC (RBC) [Mass/Vol] 30.7 g/dL Low 32-36 [facility] Comment on above: Performed By: #### L 500.2500, L100.0500 ####[facility] [address] [place], [address] MCV (RBC) [Entitic vol] 95.9 fL Normal 81-99 [facility] Comment on above: Performed By: #### L 500.2500, L100.0500 ####[facility] [address] [place], [address] Platelet mean volume (Bld) [Entitic vol] 9.3 fL Normal 6.2-12.0 [facility] Comment on above: Performed By: #### L 500.2500, L100.0500 ####[facility] [address] [place], [address] Platelets (Bld) [#/Vol] 232 10*3/uL Normal 150-450 [facility] Comment on above: Performed By: #### L 500.2500, L100.0500 ####[facility] [address] [place], [address] RBC (Bld) [#/Vol] 3.40 10*6/uL Low 4.2-5.4 [facility] Comment on above: Performed By: #### L 500.2500, L100.0500 ####[facility] [address] [place], [address] RDW SD 52.2 fl High 35.1-43.9 [facility] Comment on above: Performed By: #### L 500.2500, L100.0500 ####[facility] [address] [place], [address] WBC (Bld) [#/Vol] 8.7 10*3/uL Normal 4.4-11.0 [facility] Comment on above: Performed By: #### L 500.2500, L100.0500 ####[facility] [address] [place], [address] Discharge Instructionon Discharge Instruction [facility] Medical Records Department [address] [address] Instructions for Home/Discharge Instructions 06/01/24 1229 MR#: [id number] Acct: [id number] Name: EDUAR CABRERA Rep #: [id number] : 1950 74 From: Marie Caldera MD PCP: Dr. Corby Heller MD Status:REG [facility] Discharge Instructions Diet Discharge Diet: No restrictions Activity Discharge Activity: Return to Normal Activity Dressing / Incision Call your doctor if you observe: Fever of 101 or Higher, Inability to urinate and Inability to have a bowel movement Follow Up Care Please Follow Up With: Marie Caldera MD When: The office will call for follow up instructions. Test Results: Test results from this visit will be discussed in further detail at your follow-up appointment, if applicable. Discharge Plan Admission Attending Provider: Marie Caldera Primary Care Provider: Corby Heller Chi Instructions Print Language: Kyrgyz Discharge Orders/Prescriptions Prescriptions: New oxycodone-acetaminophe n [Percocet] 5-325 mg tablet 1 tab PO Q8H PRN (Reason: pain) 3 Days Qty: 10 0RF phenazopyridine 100 mg tablet 100 mg PO TID Qty: 30 0RF Continued fluticasone propionate 1 SPRAY spray,suspension 2 spray NASAL DAILY citalopram 20 mg tablet 20 mg PO QHS Patient Comments: TAKE 1/2 (ONE-HALF) OF A TABLET DAILY FOR 7 DAYS then TAKE 1 TABLET DAILY lovastatin 40 mg tablet 40 mg PO QHS Patient Comments: TAKE 1 TABLET DAILY AT BEDTIME levothyroxine 25 mcg tablet 25 mcg PO DAILY Patient Comments: TAKE 1 TABLET BY MOUTH ONCE DAILY pioglitazone 30 mg tablet 30 mg PO DAILY ropinirole 2 mg tablet 2 mg PO QHS metformin 500 mg tablet 500 mg PO BID Patient Comments: WITH EACH MEAL ascorbic acid (vitamin C) [C-500] 500 mg tablet 500 mg PO DAILY coenzyme Q10 [Co Q-10] 100 mg capsule 50 mg PO DAILY Clnyxrvwrtx-Kibqy-UMX Complex 669-275-12-0.5 mg tablet 3 tab PO DAILY Tart Waldron Extract 1,000 mg capsule 1,000 mg PO DAILY ibuprofen [Advil] 200 mg tablet 200 mg PO PRN Probiotic 15 billion cell capsule 1 cap PO DAILY cranberry 400 mg capsule 400 mg PO DAILY Rx Instructions: administer with a meal Kerendia 10 mg tablet 10 mg PO DAILY lutein 20 mg capsule 20 mg PO DAILY Rx Instructions: give with meal/snack vitamin B complex Tablet 1 tab PO DAILY budesonide 0.5 mg/2 mL Suspension For Nebulization 0.5 mg inhalation Q12H PRN PRN (Reason: breathing) Referrals / Follow Up: Corby Heller Chi, MD [Primary Care Provider] - Disposition Disposition (needs filled in before D/C Order can be placed): Home, Self Care 06/01/24 1232 Marie Caldera MD CC: Dr. Corby Heller MD Signed [facility] MR/POSTOP.[facility] 06-01-2024 MR/POSTOP.[facility] Medical Records Department [address] [place] [address] Anesthesia Postop Eval I 06/01/24 1220 MR#: [id number] Acct: [id number] Name: EDUAR CABRERA Rep #: [id number] : 1950 74 From: Lay Antoine CRNA PCP: Dr. Corby Heller MD Status:REG SDC Y Race: C Location: [place] [address] Anesthesia: Postop Eval I Current Vital Signs Temperature: 97.6 F Pulse Rate: 88 Blood Pressure: 146/78 Respiratory Rate: 18 Pulse Ox: 99 Oxygen Delivery Method: Simple Mask Oxygen Flow Rate (L/min): 6 Assessment Airway patent: Yes Spontaneous unlabored respirations: Yes Mental status: Awake and Calm nausea: No Vomiting: No Anesthesia Complication: No Fluid Hydration Crystalloid volume administer (ml): 1,300 Total IV fluid infused: 1,300 Progress Note Anesthesia document: Postop Eval 1 completed: Yes 06/01/24 1221 Date Lay Antoine SOIL TECHNOLOGIST Cosigner Signature: Date CC: Signed Normal [facility] MR/[id number] 06-01-2024 [facility] Medical Records Department [address] [place] [address] Anesthesia Postop Eval II 06/01/24 1348 MR#: [id number] Acct: [id number] Name: EDUAR CABRERA Rep #: [id number] : 1950 74 From: Jalen Ling MD PCP: Dr. Corby Heller MD Status:REG [facility] [place] Y Race: C Location: [place] [address] Anesthesia Postop Eval I Sum Postop Eval Completion status Anesthesia document: Postop Eval 1 completed: Yes Anesthesia Postop Eval I Summary Anesthesia Postop Eval I Summary: Anesthesia Postop Eval I: Assessment Summary Airway patent Yes 06/01/24 12:21 SOIL TECHNOLOGIST.YEMIOBRowdy Spontaneous unlabored Yes 06/01/24 12:21 SOIL TECHNOLOGIST.SKOBY respirations Mental status Awake,Calm 06/01/24 12:21 SOIL TECHNOLOGIST.SKOBY nausea No 06/01/24 12:21 SOIL TECHNOLOGIST.SKOBY Vomiting No 06/01/24 12:21 SOIL TECHNOLOGIST.SKOBY Anesthesia Postop Eval I: Fluid Summary Crystalloid volume administer 1,300 06/01/24 12:21 SOIL TECHNOLOGIST.SKOBY (ml) Colloids volume administered ( ml) Blood Product volume administered (ml) Total IV fluid infused 1,300 06/01/24 12:21 SOIL TECHNOLOGISTLISA Anesthesia Postop Eval I: Summary Notes Anesthesia Complication No 06/01/24 12:21 SOIL TECHNOLOGIST.SKOBY Anesthesia Complication Comment: Post-operative progress note Anesthesia: Postop Eval II Evaluation Mental status: Awake Pain Level: 0 nausea: No Vomiting: No 06/01/24 1348 Date Jalen Ling MD Cosigner Signature: Date CC: Signed Normal [facility] Operative Reporton 4 Operative Report [facility] Medical Records Department [address] [place] [address] Operative Report 06/01/24 1239 MR#: [id number] Acct: [id number] Name: EDUAR CABRERA Rep #: [id number] : 1950 74 From: Marie Caldera MD PCP: Dr. Corby Heller MD Status:[facility] Location: [place] [address] Report of Operation Date of Procedure: 06/01/24 Pre-Operative Diagnosis: Bilateral kidney stones Post-Operative Diagnosis: Same Surgery/Procedure Performed:: Cystoscopy, bilateral ureteroscopy, laser lithotripsy, stone basket extraction, ureteral stent changes Surgeon: Marie Caldera Type of Anesthesia: General Specimen's removed: Stone fragments Description of Procedure: The patient is a 74-year-old female with significant stone burden bilaterally who has had multiple procedures and now presents again for ureteroscopy and laser lithotripsy. Informed consent was o btained. She was taken to the operating room and placed on the operating room table. Anesthesia monitored the head, neck, airway, IV access and vital signs throughout the case. Once anesthesia was appropriately administered, she was placed into dorsolithotomy position was prepped and draped in usual sterile fashion. The cystoscope was inserted through the urethra under direct visualization into the urinary bladder. 2 separate 0.035 Glidewire's were passed alongside the right ureteral stent which was then removed. Resistance was felt within the ureter consistent with a stone. The semirigid ureteroscope was then utilized to cannulate the right distal ureter and it was advanced without difficulty until the area of the mid ureter where the stone was identified. Using a 200 ???m laser fiber, it was broken into pieces and removed with a stone basket. At this time the flexible ureteroscope was placed over a Glidewire and advanced into the renal pelvis. Laser lithotripsy was performed and an attempt was made at more basket retrieval. After a few small pieces were removed, and the ureter was clear, the second Glidewire was replaced. A ureteral access sheath was then placed under fluoroscopic visualization into the right ureter. Ureteroscopy was then performed through the sheath into the renal pelvis for stone fragments were basket retrieved. The access sheath then became dislodged. The flexible ureteroscope was once again advanced into the distal ureter and all the way up to the renal pelvis. The laser fiber was then used to blast to the stones into dust. When no further fragments were identified, the length of the ureter was visualized revealing no evidence of injury. The remaining safety wire was utilized for placement of a 6 Amharic 22 cm JJ stent with good positioning in the renal pelvis as well as the urinary bladder. This process was then repeated on the patient's left side as well. 2 separate safety wires were placed. The flexible ureteroscope is advanced over one of the Glidewire's and access to the renal pelvis was obtained. There were several small stones and one larger one in the lower pole. All stones identified were lasered into dust. When no further stones were seen, the length of the ureter was directly visualized revealing no evidence of injury. The remaining safety wire was utilized with the cystoscope for placement of a 6 Amharic 22 cm JJ stent. There was good curling in the renal pelvis as well as the urinary bladder. At this time the urinary bladder was emptied with more stone fragments obtained. She was then awakened and taken to the recovery room in good condition. There were no complications during this procedure. Grafts/Implants Used: 6 Amharic x 22 cm JJ stents Complications None Admit VTE Documentation VTE Present on Admission: Yes VTE Mechan Device Prophylaxis: SCD's VTE Pharm Prophylaxis ordered?: No Reason prophylaxis not ordered:: Treatment Not Indicated 06/01/24 1245 Cosigner Signature (if applicable): CC: Dr. Marie Caldera MD; Dr. Corby Heller MD Signed Normal [facility] Surgery Specimen Level Ion 0 06-01-2024 Surgery Specimen Level I ------- ---- Patient Age/Sex Location Account Attending Physician ---- EDUAR CABRERA 74/F [facility] [place] [id number] Dr. Marie Caldera MD ---- Specimen: [id number] Received: 06/01/24-125 Status: SHYANEN Irene Num: [id number] Spec Type: Calculi Subm Dr: Dr. Marie Caldera MD HEADER OPERATION: Bilateral ureteroscopy, laser lithotripsy, ureteral stent PRE-OP DIAGNOSIS: Bilateral renal calculus TISSUE SUBMITTED: Renal calculi ---- GROSS DIAGNOSIS Fragments of stone, clinically renal calculi (gross only). / 06/01/2024 COMMENT The specimen is submitted in its entirety for chemical stone analysis. The results from this study will be reported separately. GROSS DESCRIPTION Received without fixative labeled with the patient's name and designated renal calculi. The specimen consists of multiple fragments of byt-wwoebdgh-bmwfi stone measuring 1.0 x 0.3 x 0.2 cm. A few of the stones are covered with blood. The entire specimen is submitted for stone analysis. Aram 06/01/2024 CPT: 32753 ---- Patient Age/Sex Location Account Attending Physician ---- EDUAR CABRERA 74/F [facility] [place] [id number] Dr. Marie Caldera MD ---- Signed (signature on file) Dr. Alex Baker MD 06/02/24 0957 ---- Normal [facility] Comment on above: Performed By: #### L 100.0500, L500.2500 #### [facility] [address] [place], [address] Basic Metabolic Profile (BMP )on 05-24-2024 BUN/CRE 18.6 RATIO Normal 10-20 [facility] Comment on above: Performed By: #### L 100.0500, L500.2500 #### [facility] [address] [place], [address] CA,Total 9.2 mg/dL Normal 8.5-10.1 [facility] Comment on above: Performed By: #### L 100.0500, L500.2500 #### [facility] [address] [place], [address] Chloride [Moles/Vol] 105 mmol/L Normal 98-107 [facility] Comment on above: Performed By: #### L 100.0500, L500.2500 #### [facility] [address] [place], [address] CO2 [Moles/Vol] 25.0 mmol/L Normal 21.0-32.0 [facility] Comment on above: Performed By: #### L 100.0500, L500.2500 #### [facility] [address] [place], [address] Creatinine [Mass/Vol] 1.13 mg/dL High 0.55-1.02 [facility] Comment on above: Result Comment: The validity of the calculated GFR GFRAA in patients over 70 years has not been determined. Clinical correlation is essential. Performed By: #### L 100.0500, L500.2500 #### [facility] [address] [place], [address] EST GFR - AA 60 mL/min Normal >60 [facility] Comment on above: Result Comment: Afri can Northern Irish GFR Calc Performed By: #### L 100.0500, L500.2500 #### [facility] [address] [place], [address] GAP 7 Normal 5-15 [facility] Comment on above: Performed By: #### L 100.0500, L500.2500 #### [facility] [address] [place], [address] GFR/1.73 sq M.predicted among non-blacks MDRD (S/P/Bld) [Vol rate/Area] 50 mL/min/{1.73_m2} Low >60 [facility] Comment on above: Result Comment: Non- GFR Calc Performed By: #### L 100.0500, L500.2500 #### [facility] [address] [place], [address] Glucose [Mass/Vol] 115 mg/dL High 74-106 [facility] Comment on above: Result Comment: Fast ing Glucose result from 100 to 125 mg/dL suggests IMPAIRED HOMEOSTASIS per A.D.A. criteria. Performed By: #### L 100.0500, L500.2500 #### [facility] [address] [place], [address] Potassium [Moles/Vol] 4.1 mmol/L Normal 3.5-5.1 [facility] Comment on above: Performed By: #### L 100.0500, L500.2500 #### [facility] [address] [place], [address] Sodium [Moles/Vol] 137 mmol/L Normal 136-145 [facility] Comment on above: Performed By: #### L 100.0500, L500.2500 #### [facility] [address] [place], [address] Urea nitrogen [Mass/Vol] 21 mg/dL High 7-18 [facility] Comment on above: Performed By: #### L 100.0500, L500.2500 #### [facility] [address] [place], [address] CBC-Complete Blood Cnt No Di ffon 05-24-2024 Erythrocyte distribution width (RBC) [Ratio] 14.6 % Normal 11.6-14.6 [facility] Comment on above: Performed By: #### L 100.0500, L500.2500 #### [facility] [address] [place], [address] Hematocrit (Bld) [Volume fraction] 30.7 % Low 37-47 [facility] Comment on above: Performed By: #### L 100.0500, L500.2500 #### [facility] [address] [place], [address] Hemoglobin (Bld) [Mass/Vol] 9.5 g/dL Low 12.0-15.0 [facility] Comment on above: Performed By: #### L 100.0500, L500.2500 #### [facility] [address] [place], [address] MCH (RBC) [Entitic mass] 29.8 pg Normal 27.0-32.0 [facility] Comment on above: Performed By: #### L 100.0500, L500.2500 #### [facility] [address] [place], [address] MCHC (RBC) [Mass/Vol] 30.9 g/dL Low 32-36 [facility] Comment on above: Performed By: #### L 100.0500, L500.2500 #### [facility] [address] [place], [address] MCV (RBC) [Entitic vol] 96.2 fL Normal 81-99 [facility] Comment on above: Performed By: #### L 100.0500, L500.2500 #### [facility] [address] [place], [address] Platelet mean volume (Bld) [Entitic vol] 10.0 fL Normal 6.2-12.0 [facility] Comment on above: Performed By: #### L 100.0500, L500.2500 #### [facility] [address] [place], [address] Platelets (Bld) [#/Vol] 263 10*3/uL Normal 150-450 [facility] Comment on above: Performed By: #### L 100.0500, L500.2500 #### [facility] [address] [place], [address] RBC (Bld) [#/Vol] 3.19 10*6/uL Low 4.2-5.4 [facility] Comment on above: Performed By: #### L 100.0500, L500.2500 #### [facility] [address] [place], [address] RDW SD 51.7 fl High 35.1-43.9 [facility] Comment on above: Performed By: #### L 100.0500, L500.2500 #### [facility] [address] [place], [address] WBC (Bld) [#/Vol] 8.2 10*3/uL Normal 4.4-11.0 [facility] Comment on above: Performed By: #### L 100.0500, L500.2500 #### [facility] [address] [place], [address] Thin prep Papanicolaou smear with manual screeningOrdered By: Marie Caldera on 01-27-2024 Thin prep Papanicolaou smear with manual screening 122 mg/dL 74-106 [facility] Comment on above: MANAGEMENT OF PATIEN T CARE PER NURSING PROTOCOL Basophil percentageOrdered B y: Marie Caldera on 01-24-2024 Chloride [Moles/Vol] 108 mmol/L 98-107 [facility] Glucose [Mass/Vol] 121 mg/dL 74-106 [facility] Comment on above: Fasting Glucose resu lt from 100 to 125 mg/dL suggests IMPAIRED HOMEOSTASIS per A.D.A. criteria. Hemoglobin (Bld) [Mass/Vol] 10.3 g/dL 12.0-15.0 [facility] Potassium [Moles/Vol] 4.7 mmol/L 3.5-5.1 [facility] Sodium [Moles/Vol] 138 mmol/L 136-145 [facility] WBC (Bld) [#/Vol] 9.3 10*3/uL 4.4-11.0 [facility] Determination of erythrocyte mean corpuscular volume (MCV)Ordered By: Marie Caldera on 01-24-2024 MCV (RBC) [Entitic vol] 97.2 fL 81-99 [facility] Erythrocyte distribution wid th ratioOrdered By: Marie Caldera on 01-24-2024 Erythrocyte distribution width (RBC) [Ratio] 15.8 % 11.6-14.6 [facility] Erythrocyte distribution wid th standard deviationOrdered By: Marie Caldera on 01-24-2024 Erythrocyte distribution width (RBC) [Entitic vol] 56.1 fL 35.1-43.9 [facility] Hematocrit Auto (Bld) [Volum e fraction]Ordered By: Marie Caldera on 01-24-2024 Hematocrit (Bld) [Volume fraction] 35.0 % 37-47 [facility] - Chemistry and C hemistry - challengeOrdered By: Marie Caldera on 01-24-2024 CO2 [Moles/Vol] 21.0 mmol/L 21.0-32.0 [facility] Urea nitrogen/Creatinine [Mass ratio] 27.7 mg/mg 10-20 [facility] - Hematology and Cell countsOrdered By: Marie Caldera on 01-24-2024 MCH (RBC) [Entitic mass] 28.6 pg 27.0-32.0 [facility] MCHC (RBC) [Mass/Vol] 29.4 g/dL 32-36 [facility] Platelet mean volume (Bld) [Entitic vol] 9.8 fL 6.2-12.0 [facility] Platelets (Bld) [#/Vol] 216 10*3/uL 150-450 [facility] No Panel InformationOrdered By: Marie Caldera on 01-24-2024 Estimated GFR (MDRD) Amer 52 mL/min >60 [facility] Estimated GFR (MDRD) Non-Af Amer 43 mL/min >60 [facility] RBC Auto (Bld) [#/Vol]Ordere d By: Marie Caldera on 01-24-2024 RBC (Bld) [#/Vol] 3.60 10*6/uL 4.2-5.4 [facility] Serum or plasma calcium sarbjit urement (mass/volume)Ordered By: Marie Caldera on 01-24-2024 Calcium [Mass/Vol] 9.7 mg/dL 8.5-10.1 [facility] Serum or plasma creatinine m easurement (mass/volume)Ordered By: Marie Caldera on 01-24-2024 Creatinine [Mass/Vol] 1.30 mg/dL 0.55-1.02 [facility] Comment on above: The validity of the calculated GFR & GFRAA in patients over 70 years has not been determined. Clinical correlation is essential. Serum or plasma thyroid stim ulating hormone (TSH) measurement (units/volume)Ordered By: Marie Caldera on 01-24-2024 TSH Qn 2.00 uIU/mL 0.358-3.74 [facility] Serum or plasma urea nitroge n measurement (mass/volume)Ordered By: Marie Caldera on 01-24-2024 Urea nitrogen [Mass/Vol] 36 mg/dL 7-18 [facility] Thin prep Papanicolaou smear with manual screeningOrdered By: Marie Caldera on 01-24-2024 Thin prep Papanicolaou smear with manual screening 9 5-15 [facility] Thin prep Papanicolaou smear with manual screeningOrdered By: Marie Caldera on 11-25-2023 Thin prep Papanicolaou smear with manual screening 114 mg/dL 74-106 [facility] Comment on above: MANAGEMENT OF PATIEN T CARE PER NURSING PROTOCOL Thin prep Papanicolaou smear with manual screeningOrdered By: Marie Caldera on 11-11-2023 Thin prep Papanicolaou smear with manual screening 100 mg/dL 74-106 [facility] Comment on above: MANAGEMENT OF PATIEN T CARE PER NURSING PROTOCOL Absolute lymphocyte countOrd ered By: Corby Heller on 10-27-2023 Lymphocytes Auto (Unsp spec) [#/Vol] 2.35 10*3/uL 0.83-4.51 [facility] Automated lymphocyte count a s percentage of total leukocytesOrdered By: Corby Heller on 10-27-2023 Lymphocytes/100 WBC Auto (Unsp spec) 30.4 % 19-41 [facility] Basophil percentageOrdered B y: Corby Heller on 10-27-2023 Basophils/100 WBC (Bld) 0.8 % 0-1 [facility] Bilirubin [Mass/Vol] 0.40 mg/dL 0.20-1.00 [facility] Comment on above: For patients on eltr ombopag therapy, use of Dimension [place] TBIL is not recommended. Chloride [Moles/Vol] 107 mmol/L 98-107 [facility] Eosinophils/100 WBC (Bld) 4.5 % 0-5 [facility] Glucose [Mass/Vol] 150 mg/dL 74-106 [facility] Comment on above: Fasting Glucose resu lt greater than or equal to 126 mg/dL suggests DIABETES MELLITUS per A.D.A. criteria. Hemoglobin (Bld) [Mass/Vol] 10.1 g/dL 12.0-15.0 [facility] Monocytes/100 WBC (Bld) 7.4 % 0-10 [facility] Neutrophils (Bld) [#/Vol] 4.4 10*3/uL 2.0-7.7 [facility] Neutrophils/100 WBC (Bld) 56.4 % 47-70 [facility] Potassium [Moles/Vol] 4.2 mmol/L 3.5-5.1 [facility] Protein [Mass/Vol] 7.7 g/dL 6.4-8.2 [facility] Sodium [Moles/Vol] 139 mmol/L 136-145 [facility] WBC (Bld) [#/Vol] 7.7 10*3/uL 4.4-11.0 [facility] Culture, urineOrdered By: Ryder Heller on 10-27-2023 Bacteria identified Cx Nom (U) Mixed Gram Pos & Gram Neg Org [facility] Bacteria identified Cx Nom (U) Mixed Gram Pos & Gram Neg Org [facility] Determination of erythrocyte mean corpuscular volume (MCV)Ordered By: Corby Heller on 10-27-2023 MCV (RBC) [Entitic vol] 94.8 fL 81-99 [facility] Erythrocyte distribution wid th ratioOrdered By: Corby Heller on 10-27-2023 Erythrocyte distribution width (RBC) [Ratio] 15.9 % 11.6-14.6 [facility] Erythrocyte distribution wid th standard deviationOrdered By: Corby Heller on 10-27-2023 Erythrocyte distribution width (RBC) [Entitic vol] 55.0 fL 35.1-43.9 [facility] Hematocrit Auto (Bld) [Volum e fraction]Ordered By: Corby Heller on 10-27-2023 Hematocrit (Bld) [Volume fraction] 33.1 % 37-47 [facility] Immature granulocytes/100 WB C Auto (Bld)Ordered By: Corby Heller 10-27-2023 Immature granulocytes/100 WBC (Bld) 0.500 % 0.0-0.9 [facility] Comment on above: IG% - Immature Granu locytes (promyelocytes, myelocytes and metamyelocytes) > 1% indicates that a LEFT SHIFT is Present. Laboratory - Chemistry and C hemistry - challengeOrdered By: Corby Heller on 10-27-2023 Albumin/Globulin [Mass ratio] 0.6 {ratio} 0.9-2.4 [facility] ALP [Catalytic activity/Vol] 71 U/L 45-117 [facility] ALT [Catalytic activity/Vol] 16 U/L 13-56 [facility] CO2 [Moles/Vol] 27.0 mmol/L 21.0-32.0 [facility] Globulin (S) [Mass/Vol] 4.7 g/dL 2.2-4.2 [facility] Urea nitrogen/Creatinine [Mass ratio] 21.4 mg/mg 10-20 [facility] - Hematology and Cell countsOrdered By: Corby Heller on 10-27-2023 MCH (RBC) [Entitic mass] 28.9 pg 27.0-32.0 [facility] MCHC (RBC) [Mass/Vol] 30.5 g/dL 32-36 [facility] Nucleated RBC/100 WBC (Bld) [Ratio] 0 % 0-5 [facility] Platelets (Bld) [#/Vol] 257 10*3/uL 150-450 [facility] No Panel InformationOrdered By: Corby Heller on 10-27-2023 Estimated GFR (MDRD) Amer 67 mL/min >60 [facility] Comment on above: GFR Calc Estimated GFR (MDRD) Non-Af Amer 56 mL/min >60 [facility] Comment on above: Non- GFR Calc Vitamin D 25-Hydroxy 59.1 ng/mL [facility] Comment on above: Vitamin D 25(OH) Sta tus Range Deficiency <20 ng/mL (50nmol/L) Insufficiency 20 - 30 ng/mL (50 - 75 nmol/L) Sufficiency 30 - 100 ng/mL (75 - 250 nmol/L) Toxicity >100 ng/mL (>250 nmol/L) Platelet mean volume Johnny-Ec ker (Bld) [Entitic vol]Ordered By: Corby Heller on 10-27-2023 Platelet mean volume (Bld) [Entitic vol] 9.6 fL 6.2-12.0 [facility] RBC Auto (Bld) [#/Vol]Ordere d By: Corby Heller on 10-27-2023 RBC (Bld) [#/Vol] 3.49 10*6/uL 4.2-5.4 [facility] Serum or plasma calcium sarbjit urement (mass/volume)Ordered By: Corby Heller on 10-27-2023 Calcium [Mass/Vol] 9.7 mg/dL 8.5-10.1 [facility] Serum or plasma creatinine m easurement (mass/volume)Ordered By: Corby Heller on 10-27-2023 Creatinine [Mass/Vol] 1.03 mg/dL 0.55-1.02 [facility] Comment on above: The validity of the calculated GFR & GFRAA in patients over 70 years has not been determined. Clinical correlation is essential. Serum or plasma thyroid stim ulating hormone (TSH) measurement (units/volume)Ordered By: Corby Heller on 10-27-2023 TSH Qn 3.47 uIU/mL 0.358-3.74 [facility] Serum or plasma urea nitroge n measurement (mass/volume)Ordered By: Corby Heller on 10-27-2023 Urea nitrogen [Mass/Vol] 22 mg/dL 7-18 [facility] Thin prep Papanicolaou smear with manual screeningOrdered By: Corby Heller on 10-27-2023 Thin prep Papanicolaou smear with manual screening 3.0 g/dL 3.2-5.0 [facility] Thin prep Papanicolaou smear with manual screening 19 U/L 15-37 [facility] Thin prep Papanicolaou smear with manual screening 5 5-15 [facility] Basophil percentageOrdered B y: Marie Caldera on 08-05-2023 Basophil percentage >100 SEEN /hpf 0-5 [facility] Bilirubin Test strip Ql (U)O rdered By: Marie Caldera on 08-05-2023 Bilirubin Ql (U) Negative Negative [facility] Glucose Glucometer (BldC) [M ass/Vol]Ordered By: Marie Caldera on 08-05-2023 Glucose [Mass/Vol] 104 mg/dL 74-106 [facility] Comment on above: MANAGEMENT OF PATIEN T CARE PER NURSING PROTOCOL Ketones Test strip Ql (U)Ord ered By: Marie Caldera on 08-05-2023 Ketones Ql (U) Negative Negative [facility] Mucus LM Ql (Urine sed)Order ed By: Marie Caldera on 08-05-2023 Mucus Ql (Urine sed) 0 SEEN /hpf [facility] Nitrite Test strip Ql (U)Ord ered By: Marie Caldera on 08-05-2023 Nitrite Ql (U) Negative Negative [facility] Protein Test strip Ql (U)Ord ered By: Marie Caldera on 08-05-2023 Protein Ql (U) 100 mg/dl Negative [facility] Squamous epithelial cells de tection in urine sediment by light microscopyOrdered By: Marie Caldera on 08-05-2023 Epithelial cells.squamous LM Ql (Urine sed) 0 SEEN /hpf 5-10 [facility] Urine blood detectionOrdered By: Marie Caldera on 08-05-2023 RBC Ql (U) 150 /ul Negative [facility] RBC Ql (U) 0 SEEN /hpf 0-5 [facility] Urine clarityOrdered By: Agnieszka Caldera on 08-05-2023 Clarity (U) Cloudy Clear [facility] Urine color determinationOrd ered By: Marie Caldera on 08-05-2023 Color (U) Yellow Yellow [facility] Urine glucose detectionOrder ed By: Marie Caldera on 08-05-2023 Glucose Ql (U) Normal mg/dl Normal [facility] Urine leukocyte esterase det ection by dipstickOrdered By: Marie Caldera on 08-05-2023 Leukocyte esterase Test strip Ql (U) 500 /ul Negative [facility] Urine pHOrdered By: Marie jones on 08-05-2023 pH (U) 5.0 [pH] 5.0 - 8.0 [facility] Urine sediment bacteria coun t by microscopy (number/high power field)Ordered By: Marie Caldera on 08-05-2023 Bacteria LM.HPF (Urine sed) [#/Area] 0 /[HPF] None Seen [facility] Urine specific gravity measu rementOrdered By: Marie Caldera on 08-05-2023 Specific gravity (U) [Rel density] 1.015 1.002-1.030 [facility] Urobilinogen Auto test strip Ql (U)Ordered By: Marie Caldera on 08-05-2023 Urobilinogen Ql (U) Normal mg/dl Normal [facility] Absolute lymphocyte countOrd ered By: Corby Heller on 07-21-2023 Lymphocytes Auto (Unsp spec) [#/Vol] 1.88 10*3/uL 0.83-4.51 [facility] Basophil percentageOrdered B y: Corby Heller on 07-21-2023 Basophils/100 WBC (Bld) 0.6 % 0-1 [facility] Bilirubin [Mass/Vol] 0.40 mg/dL 0.20-1.00 [facility] Comment on above: For patients on eltr ombopag therapy, use of Dimension [place] TBIL is not recommended. Chloride [Moles/Vol] 106 mmol/L 98-107 [facility] Eosinophils/100 WBC (Bld) 7.1 % 0-5 [facility] Glucose [Mass/Vol] 162 mg/dL 74-106 [facility] Comment on above: Fasting Glucose resu lt greater than or equal to 126 mg/dL suggests DIABETES MELLITUS per A.D.A. criteria. Neutrophils (Bld) [#/Vol] 4.1 10*3/uL 2.0-7.7 [facility] Neutrophils/100 WBC (Bld) 57.9 % 47-70 [facility] Potassium [Moles/Vol] 4.0 mmol/L 3.5-5.1 [facility] Protein [Mass/Vol] 8.0 g/dL 6.4-8.2 [facility] Sodium [Moles/Vol] 139 mmol/L 136-145 [facility] WBC (Bld) [#/Vol] 7.1 10*3/uL 4.4-11.0 [facility] Blood erythrocytes count (nu mber/volume)Ordered By: Corby Heller on 07-21-2023 RBC (Bld) [#/Vol] 3.34 10*6/uL 4.2-5.4 [facility] Blood hemoglobin measurement (mass/volume)Ordered By: Corby Heller on 07-21-2023 Hemoglobin (Bld) [Mass/Vol] 10.0 g/dL 12.0-15.0 [facility] Blood lymphocytes/100 leukoc ytesOrdered By: Corby Heller on 07-21-2023 Lymphocytes/100 WBC (Bld) 26.6 % 19-41 [facility] Blood monocytes/100 leukocyt esOrdered By: Corby Heller on 07-21-2023 Monocytes/100 WBC (Bld) 7.4 % 0-10 [facility] Blood platelet mean volumeOr dered By: Corby Heller on 07-21-2023 Platelet mean volume (Bld) [Entitic vol] 10.0 fL 6.2-12.0 [facility] Determination of erythrocyte mean corpuscular volume (MCV)Ordered By: Corby Heller on 07-21-2023 MCV (RBC) [Entitic vol] 97.0 fL 81-99 [facility] Hematocrit Auto (Bld) [Volum e fraction]Ordered By: Corby Heller on 07-21-2023 Hematocrit (Bld) [Volume fraction] 32.4 % 37-47 [facility] - Chemistry and C hemistry - challengeOrdered By: [facility] Arron on 07-21-2023 ALP [Catalytic activity/Vol] 64 U/L 45-117 [facility] ALT [Catalytic activity/Vol] 14 U/L 13-56 [facility] CO2 [Moles/Vol] 29.0 mmol/L 21.0-32.0 [facility] Globulin (S) [Mass/Vol] 5.0 g/dL 2.2-4.2 [facility] Urea nitrogen/Creatinine [Mass ratio] 28.3 mg/mg 10-20 [facility] - Hematology and Cell countsOrdered By: Corby Heller on 07-21-2023 Erythrocyte distribution width (RBC) [Entitic vol] 56.1 fL 35.1-43.9 [facility] Erythrocyte distribution width (RBC) [Ratio] 15.9 % 11.6-14.6 [facility] Immature granulocytes/100 WBC (Bld) 0.400 % 0.0-0.9 [facility] Comment on above: IG% - Immature Granu locytes (promyelocytes, myelocytes and metamyelocytes) > 1% indicates that a LEFT SHIFT is Present. MCH (RBC) [Entitic mass] 29.9 pg 27.0-32.0 [facility] Nucleated RBC/100 WBC (Bld) [Ratio] 0 % 0-5 [facility] MCHC Auto (RBC) [Mass/Vol]Or dered By: Corby Heller on 07-21-2023 MCHC (RBC) [Mass/Vol] 30.9 g/dL 32-36 [facility] No Panel InformationOrdered By: Corby Heller on 07-21-2023 Estimated GFR (MDRD) Amer 65 mL/min >60 [facility] Comment on above: GFR Calc Estimated GFR (MDRD) Non-Af Amer 54 mL/min >60 [facility] Comment on above: Non- GFR Calc Thyroid Stimulating Hormone (TSH) 2.12 uIU/mL 0.358-3.74 [facility] Vitamin D 25-Hydroxy 57.8 ng/mL [facility] Comment on above: Vitamin D 25(OH) Sta tus Range Deficiency <20 ng/mL (50nmol/L) Insufficiency 20 - 30 ng/mL (50 - 75 nmol/L) Sufficiency 30 - 100 ng/mL (75 - 250 nmol/L) Toxicity >100 ng/mL (>250 nmol/L) Platelets bldOrdered By: Corby Heller on 07-21-2023 Platelets (Bld) [#/Vol] 193 10*3/uL 150-450 [facility] Serum or plasma albumin sarbjit urement (mass/volume)Ordered By: Corby Heller on 07-21-2023 Albumin [Mass/Vol] 3.0 g/dL 3.2-5.0 [facility] Serum or plasma albumin/glob ulin mass ratioOrdered By: Corby Heller 07-21-2023 Albumin/Globulin [Mass ratio] 0.6 {ratio} 0.9-2.4 [facility] Serum or plasma calcium sarbjit urement (mass/volume)Ordered By: Corby Heller on 07-21-2023 Calcium [Mass/Vol] 10.2 mg/dL 8.5-10.1 [facility] Serum or plasma creatinine m easurement (mass/volume)Ordered By: Corby Heller on 07-21-2023 Creatinine [Mass/Vol] 1.06 mg/dL 0.55-1.02 [facility] Comment on above: The validity of the calculated GFR & GFRAA in patients over 70 years has not been determined. Clinical correlation is essential. Serum or plasma urea nitroge n measurement (mass/volume)Ordered By: Corby Heller on 07-21-2023 Urea nitrogen [Mass/Vol] 30 mg/dL 7-18 [facility] Thin prep Papanicolaou smear with manual screeningOrdered By: Corby Heller on 07-21-2023 Thin prep Papanicolaou smear with manual screening 16 U/L 15-37 [facility] Thin prep Papanicolaou smear with manual screening 4 5-15 [facility] Absolute lymphocyte countOrd ered By: Corby Heller on 07-15-2023 Lymphocytes Auto (Unsp spec) [#/Vol] 1.80 10*3/uL 0.83-4.51 [facility] Basophil percentageOrdered B y: Corby Heller on 07-15-2023 Basophils/100 WBC (Bld) 1.3 % 0-1 [facility] Chloride [Moles/Vol] 105 mmol/L 98-107 [facility] Eosinophils/100 WBC (Bld) 5.0 % 0-5 [facility] Glucose [Mass/Vol] 132 mg/dL 74-106 [facility] Comment on above: Fasting Glucose resu lt greater than or equal to 126 mg/dL suggests DIABETES MELLITUS per A.D.A. criteria. Neutrophils (Bld) [#/Vol] 3.3 10*3/uL 2.0-7.7 [facility] Neutrophils/100 WBC (Bld) 53.5 % 47-70 [facility] Potassium [Moles/Vol] 4.0 mmol/L 3.5-5.1 [facility] Sodium [Moles/Vol] 138 mmol/L 136-145 [facility] WBC (Bld) [#/Vol] 6.2 10*3/uL 4.4-11.0 [facility] Blood erythrocytes count (nu mber/volume)Ordered By: Corby Heller on 07-15-2023 RBC (Bld) [#/Vol] 3.10 10*6/uL 4.2-5.4 [facility] Blood hemoglobin measurement (mass/volume)Ordered By: Corby Heller on 07-15-2023 Hemoglobin (Bld) [Mass/Vol] 9.3 g/dL 12.0-15.0 [facility] Blood lymphocytes/100 leukoc ytesOrdered By: Corby Heller on 07-15-2023 Lymphocytes/100 WBC (Bld) 28.8 % 19-41 [facility] Blood monocytes/100 leukocyt esOrdered By: Corby Heller on 07-15-2023 Monocytes/100 WBC (Bld) 10.9 % 0-10 [facility] Blood platelet mean volumeOr dered By: Corby Heller on 07-15-2023 Platelet mean volume (Bld) [Entitic vol] 10.1 fL 6.2-12.0 [facility] Determination of erythrocyte mean corpuscular volume (MCV)Ordered By: Corby Heller on 07-15-2023 MCV (RBC) [Entitic vol] 98.4 fL 81-99 [facility] Glucose Glucometer (BldC) [M ass/Vol]Ordered By: Corby Heller on 07-15-2023 Glucose [Mass/Vol] 136 mg/dL 74-106 [facility] Comment on above: MANAGEMENT OF PATIEN T CARE PER NURSING PROTOCOL Hematocrit Auto (Bld) [Volum e fraction]Ordered By: Corby Heller on 07-15-2023 Hematocrit (Bld) [Volume fraction] 30.5 % 37-47 [facility] - Chemistry and C hemistry - challengeOrdered By: Corby Heller on 07-15-2023 CO2 [Moles/Vol] 28.0 mmol/L 21.0-32.0 [facility] Urea nitrogen/Creatinine [Mass ratio] 36.5 mg/mg 10-20 [facility] - Hematology and Cell countsOrdered By: Corby Heller on 07-15-2023 Erythrocyte distribution width (RBC) [Entitic vol] 58.1 fL 35.1-43.9 [facility] Erythrocyte distribution width (RBC) [Ratio] 16.2 % 11.6-14.6 [facility] Immature granulocytes/100 WBC (Bld) 0.500 % 0.0-0.9 [facility] Comment on above: IG% - Immature Granu locytes (promyelocytes, myelocytes and metamyelocytes) > 1% indicates that a LEFT SHIFT is Present. MCH (RBC) [Entitic mass] 30.0 pg 27.0-32.0 [facility] Nucleated RBC/100 WBC (Bld) [Ratio] 0 % 0-5 [facility] MCHC Auto (RBC) [Mass/Vol]Or dered By: Corby Heller on 07-15-2023 MCHC (RBC) [Mass/Vol] 30.5 g/dL 32-36 [facility] No Panel InformationOrdered By: Corby Heller on 07-15-2023 Estimated Creatinine Clearance Calc 33.94 ml/min [facility] Estimated GFR (MDRD) Amer 59 mL/min >60 [facility] Comment on above: GFR Calc Estimated GFR (MDRD) Non-Af Amer 49 mL/min >60 [facility] Comment on above: Non- GFR Calc Platelets bldOrdered By: Corby Heller on 07-15-2023 Platelets (Bld) [#/Vol] 163 10*3/uL 150-450 [facility] Serum or plasma calcium sarbjit urement (mass/volume)Ordered By: Corby Heller on 07-15-2023 Calcium [Mass/Vol] 9.5 mg/dL 8.5-10.1 [facility] Serum or plasma creatinine m easurement (mass/volume)Ordered By: Corby Heller on 07-15-2023 Creatinine [Mass/Vol] 1.15 mg/dL 0.55-1.02 [facility] Comment on above: The validity of the calculated GFR & GFRAA in patients over 70 years has not been determined. Clinical correlation is essential. Serum or plasma urea nitroge n measurement (mass/volume)Ordered By: Corby Heller on 07-15-2023 Urea nitrogen [Mass/Vol] 42 mg/dL 7-18 [facility] Thin prep Papanicolaou smear with manual screeningOrdered By: Corby Heller on 07-15-2023 Thin prep Papanicolaou smear with manual screening 5 5-15 [facility] Basophil percentageOrdered B y: Corby Heller on 07-09-2023 Basophil percentage 25-50 SEEN /hpf 0-5 [facility] Bilirubin Test strip Ql (U)O rdered By: Corby Heller on 07-09-2023 Bilirubin Ql (U) Negative Negative [facility] Culture, urineOrdered By: Ryder Heller on 07-09-2023 Bacteria identified Cx Nom (U) Escherichia coli [facility] Bacteria identified Cx Nom (U) Escherichia coli [facility] Ketones Test strip Ql (U)Ord ered By: Corby Heller on 07-09-2023 Ketones Ql (U) Negative Negative [facility] Mucus LM Ql (Urine sed)Order ed By: Corby Heller on 07-09-2023 Mucus Ql (Urine sed) 0 SEEN /hpf [facility] Nitrite Test strip Ql (U)Ord ered By: Corby Heller on 07-09-2023 Nitrite Ql (U) Positive Negative [facility] Protein Test strip Ql (U)Ord ered By: Corby Heller on 07-09-2023 Protein Ql (U) 30 mg/dl Negative [facility] Squamous epithelial cells de tection in urine sediment by light microscopyOrdered By: Corby Heller on 07-09-2023 Epithelial cells.squamous LM Ql (Urine sed) 0 SEEN /hpf 5-10 [facility] Urine blood detectionOrdered By: Corby Heller on 07-09-2023 RBC Ql (U) 25 /ul Negative [facility] RBC Ql (U) 0-5 SEEN /hpf 0-5 [facility] Urine clarityOrdered By: Corby Heller on 07-09-2023 Clarity (U) Sl. Cloudy Clear [facility] Urine color determinationOrd ered By: Corby Heller on 07-09-2023 Color (U) Yellow Yellow [facility] Urine glucose detectionOrder ed By: Corby Heller on 07-09-2023 Glucose Ql (U) Normal mg/dl Normal [facility] Urine leukocyte esterase det ection by dipstickOrdered By: Corby Heller on 07-09-2023 Leukocyte esterase Test strip Ql (U) 500 /ul Negative [facility] Urine pHOrdered By: Corby Heller on 07-09-2023 pH (U) 6.5 [pH] 5.0 - 8.0 [facility] Urine sediment bacteria coun t by microscopy (number/high power field)Ordered By: Corby Heller on 07-09-2023 Bacteria LM.HPF (Urine sed) [#/Area] 1 /[HPF] None Seen [facility] Urine specific gravity measu rementOrdered By: Corby Heller on 07-09-2023 Specific gravity (U) [Rel density] 1.010 1.002-1.030 [facility] Urobilinogen Auto test strip Ql (U)Ordered By: Corby Heller on 07-09-2023 Urobilinogen Ql (U) Normal mg/dl Normal [facility] Blood band neutrophil count as percentage of total leukocytesOrdered By: Corby Heller on 07-01-2023 Band form neutrophils/100 WBC (Bld) 6 % 0-5 [facility] Blood eosinophils/100 leukoc ytesOrdered By: Corby Conroyok on 07-01-2023 Eosinophils/100 WBC (Bld) 2 % 0-5 [facility] Blood lymphocytes/100 leukoc ytesOrdered By: Corby Conroyok on 07-01-2023 Lymphocytes/100 WBC (Bld) 16 % 19-41 [facility] Blood metamyelocytes/100 dar kocytesOrdered By: Corby Conroyok on 07-01-2023 Metamyelocytes/100 WBC (Bld) 1 % 0-1 [facility] Blood monocytes/100 leukocyt esOrdered By: Corby Conroyok on 07-01-2023 Monocytes/100 WBC (Bld) 7 % 0-10 [facility] Blood platelet adequacy dete ction by light microscopyOrdered By: Corby Heller on 07-01-2023 Platelets LM Ql (Bld) ADEQUATE ADEQ [facility] Blood promyelocytes/100 leuk ocytesOrdered By: Corby Heller on 07-01-2023 Promyelocytes/100 WBC (Bld) 2 % 0-0 [facility] Blood segmented neutrophils/ 100 leukocytesOrdered By: Corby Conroyok on 07-01-2023 Segmented neutrophils/100 WBC (Bld) 58 % 47-70 [facility] Laboratory - Hematology and Cell countsOrdered By: Corby Heller on 07-01-2023 Anisocytosis Ql (Bld) 1+ [facility] Myelocytes/100 WBC (Bld) 8 % 0-0 [facility] RBC morphologyOrdered By: Ryder Heller on 07-01-2023 RBC morphology finding Nom (Bld) NORM C+C NORMAL NORM C&C [facility] Review by pathologistOrdered By: Corby Heller on 07-01-2023 Pathologist review Olaf (Unsp spec) [Interp] Reviewed [facility] Comment on above: Previous reported re sult: Lydia song Edited by: RGOGARLAND on 07/01/23:1046Neutrophilic left shift.Normocytic anemia.Clinical correlation necessary.Alex Baker M.D. 07/01/23 AMENDED REPORT 07/01/23 1046 PATH REV previously reported as: January Total cell countOrdered By: Corby Heller on 07-01-2023 Cells counted Molgen (Bld/Tiss) [#] 100 MANUAL DIFF [facility] Glucose Glucometer (BldC) [M ass/Vol]Ordered By: Alonso Bautista on 06-30-2023 Glucose [Mass/Vol] 144 mg/dL 74-106 [facility] Comment on above: MANAGEMENT OF PATIEN T CARE PER NURSING PROTOCOL Absolute lymphocyte countOrd ered By: Zenon Martinez on 06-29-2023 Lymphocytes Auto (Unsp spec) [#/Vol] 2.13 10*3/uL 0.83-4.51 [facility] Basophil percentageOrdered B y: Zenon Martinez on 06-29-2023 Basophil percentage Not Reportable [facility] Chloride [Moles/Vol] 106 mmol/L 98-107 [facility] Glucose [Mass/Vol] 125 mg/dL 74-106 [facility] Comment on above: Fasting Glucose resu lt from 100 to 125 mg/dL suggests IMPAIRED HOMEOSTASIS per A.D.A. criteria. Neutrophils (Bld) [#/Vol] 7.6 10*3/uL 2.0-7.7 [facility] Potassium [Moles/Vol] 4.1 mmol/L 3.5-5.1 [facility] Sodium [Moles/Vol] 135 mmol/L 136-145 [facility] WBC (Bld) [#/Vol] 11.2 10*3/uL 4.4-11.0 [facility] Blood band neutrophil count as percentage of total leukocytesOrdered By: Zenon Martinez on 06-29-2023 Band form neutrophils/100 WBC (Bld) 2 % 0-5 [facility] Blood eosinophils/100 leukoc ytesOrdered By: Zenon Martinez on 06-29-2023 Eosinophils/100 WBC (Bld) 5 % 0-5 [facility] Blood erythrocytes count (nu mber/volume)Ordered By: Zenon Martinez on 06-29-2023 RBC (Bld) [#/Vol] 3.00 10*6/uL 4.2-5.4 [facility] Blood hemoglobin measurement (mass/volume)Ordered By: Zenon Martinez on 06-29-2023 Hemoglobin (Bld) [Mass/Vol] 9.0 g/dL 12.0-15.0 [facility] Blood lymphocytes/100 leukoc ytesOrdered By: Zenon Martinez on 06-29-2023 Lymphocytes/100 WBC (Bld) 19 % 19-41 [facility] Blood monocytes/100 leukocyt esOrdered By: Zenon Martinez on 06-29-2023 Monocytes/100 WBC (Bld) 6 % 0-10 [facility] Blood platelet adequacy dete ction by light microscopyOrdered By: Zenon Martinez on 06-29-2023 Platelets LM Ql (Bld) ADEQUATE ADEQ [facility] Blood platelet mean volumeOr dered By: Zenon Martinez on 06-29-2023 Platelet mean volume (Bld) [Entitic vol] 9.9 fL 6.2-12.0 [facility] Blood segmented neutrophils/ 100 leukocytesOrdered By: Zenon Martinez on 06-29-2023 Segmented neutrophils/100 WBC (Bld) 66 % 47-70 [facility] Determination of erythrocyte mean corpuscular volume (MCV)Ordered By: Zenon Martinez on 06-29-2023 MCV (RBC) [Entitic vol] 94.7 fL 81-99 [facility] Hematocrit Auto (Bld) [Volum e fraction]Ordered By: Zenon Martinez on 06-29-2023 Hematocrit (Bld) [Volume fraction] 28.4 % 37-47 [facility] Laboratory - Chemistry and C hemistry - challengeOrdered By: Zenon Martinez on 06-29-2023 CO2 [Moles/Vol] 25.0 mmol/L 21.0-32.0 [facility] Urea nitrogen/Creatinine [Mass ratio] 27.1 mg/mg 10-20 [facility] Laboratory - Hematology and Cell countsOrdered By: Zenon Martinez on 06-29-2023 Erythrocyte distribution width (RBC) [Entitic vol] 54.1 fL 35.1-43.9 [facility] Erythrocyte distribution width (RBC) [Ratio] 15.5 % 11.6-14.6 [facility] MCH (RBC) [Entitic mass] 30.0 pg 27.0-32.0 [facility] Myelocytes/100 WBC (Bld) 2 % 0-0 [facility] MCHC Auto (RBC) [Mass/Vol]Or dered By: Zenon Martinez on 06-29-2023 MCHC (RBC) [Mass/Vol] 31.7 g/dL 32-36 [facility] No Panel InformationOrdered By: Zenon Martinez on 06-29-2023 Estimated Creatinine Clearance Calc 42.43 ml/min [facility] Estimated GFR (MDRD) Amer 77 mL/min >60 [facility] Comment on above: GFR Calc Estimated GFR (MDRD) Non-Af Amer 63 mL/min >60 [facility] Comment on above: Non- GFR Calc Reactive Lymphocytes 1+ [facility] Platelets bldOrdered By: Eagle Martinez on 06-29-2023 Platelets (Bld) [#/Vol] 173 10*3/uL 150-450 [facility] RBC morphologyOrdered By: Michelle Martinez on 06-29-2023 RBC morphology finding Nom (Bld) NORM C+C NORMAL NORM C&C [facility] Review by pathologistOrdered By: Zenon Martinez on 06-29-2023 Pathologist review Olaf (Unsp spec) [Interp] Reviewed [facility] Comment on above: Previous reported re sult: Lydia song Edited by: RGOGARLAND on 06/29/23:1329Leukocytosis.Normocytic anemia.NRBCs are noted.Alex Baker M.D. 06/29/23 AMENDED REPORT 06/29/23 1329 PATH REV previously reported as: Lydia song Serum or plasma calcium sarbjit urement (mass/volume)Ordered By: Zenon Martinez on 06-29-2023 Calcium [Mass/Vol] 7.9 mg/dL 8.5-10.1 [facility] Serum or plasma creatinine m easurement (mass/volume)Ordered By: Zenon Martinez on 06-29-2023 Creatinine [Mass/Vol] 0.92 mg/dL 0.55-1.02 [facility] Comment on above: The validity of the calculated GFR & GFRAA in patients over 70 years has not been determined. Clinical correlation is essential. Serum or plasma urea nitroge n measurement (mass/volume)Ordered By: Zenon Martinez on 06-29-2023 Urea nitrogen [Mass/Vol] 25 mg/dL 7-18 [facility] Thin prep Papanicolaou smear with manual screeningOrdered By: Zenon Martinez on 06-29-2023 Thin prep Papanicolaou smear with manual screening 4 5-15 [facility] Total cell countOrdered By: Zenon Martinez on 06-29-2023 Cells counted Molgen (Bld/Tiss) [#] 100 MANUAL DIFF [facility] Basophil percentageOrdered B y: Zenon Martinez on 06-28-2023 Basophils/100 WBC (Bld) 0.4 % 0-1 [facility] Eosinophils/100 WBC (Bld) 2.1 % 0-5 [facility] Blood lymphocytes/100 leukoc ytesOrdered By: Zenon Martinez on 06-28-2023 Lymphocytes/100 WBC (Bld) 17.4 % 19-41 [facility] Blood monocytes/100 leukocyt esOrdered By: Zenon Martinez on 06-28-2023 Monocytes/100 WBC (Bld) 5.4 % 0-10 [facility] Laboratory - Hematology and Cell countsOrdered By: Zenon Martinez on 06-28-2023 Anisocytosis Ql (Bld) 1+ [facility] Immature granulocytes/100 WBC (Bld) 1.600 % 0.0-0.9 [facility] Comment on above: IG% - Immature Granu locytes (promyelocytes, myelocytes and metamyelocytes) > 1% indicates that a LEFT SHIFT is Present. Nucleated RBC/100 WBC (Bld) [Ratio] 0 % 0-5 [facility] Serum or plasma trough vanco mycin levelOrdered By: Juan Cerda on 06-28-2023 Vancomycin trough [Mass/Vol] 19.4 ug/mL 5.0-15.0 [facility] Comment on above: VANCOMYCIN STANDARED DRUG THERAPY TROUGH LEVEL: 5.0 - 15.0 mg/L VANCOMYCIN HIGH INTENSITY THERAPY TROUGH LEVEL: 15.0 - 20.0 mg/L High Intensity therapy recommended for serious lifethreatening infections include:- Rorpxeqrse-Icsidtklekeb-Wmjilpajx (Ventilator/Healtcare Associated)-Sepsis PLEASE CONTACT PHARMACY SERVICES (#[id number]) FOR INTERPRETATIONOF RESULTS. Bacteria identified Respirat ory culture Nom (Unsp spec)Ordered By: Clementine Prieto on 06-27-2023 Respiratory Culture Presumptive C albicans [facility] Basophil percentageOrdered B y: Bertram Chatterjee on 06-27-2023 Basophil percentage 4.1 mg/dL 2.5-4.9 [facility] Gram stain for investigation of transfusion reactionOrdered By: Clementine Prieto on 06-27-2023 Microscopic observation Gram stain Nom (Unsp spec) [facility] Laboratory - Chemistry and C hemistry - challengeOrdered By: Bertram Chatterjee on 06-27-2023 Magnesium [Mass/Vol] 2.3 mg/dL 1.6-2.6 [facility] Basophil percentageOrdered B y: Clementine Prieto on 06-26-2023 Bilirubin [Mass/Vol] 1.30 mg/dL 0.20-1.00 [facility] Comment on above: For patients on eltr ombopag therapy, use of Dimension [place] TBIL is not recommended. Protein [Mass/Vol] 6.9 g/dL 6.4-8.2 [facility] Blood manual differential co mment interpretation (narrative result)Ordered By: Clementine Prieto on 06-26-2023 Manual differential comment Olaf (Bld) [Interp] SCANNED [facility] Comment on above: BANDS NOTED, LEFT SH IFT Clostridium difficile detect ion by polymerase chain reactionOrdered By: Clementine Prieto on 06-26-2023 C. difficile DNA ROSEANNE+probe Ql (Unsp spec) [facility] C. difficile DNA ROSEANNE+probe Ql (Unsp spec) [facility] Laboratory - Chemistry and C hemistry - challengeOrdered By: Clementine Prieto on 06-26-2023 ALP [Catalytic activity/Vol] 66 U/L 45-117 [facility] ALT [Catalytic activity/Vol] 32 U/L 13-56 [facility] Globulin (S) [Mass/Vol] 4.6 g/dL 2.2-4.2 [facility] No Panel InformationOrdered By: Juan Prashant on 06-26-2023 Methicillin-Resist S.aureus DNA PCR Positive Negative [facility] Comment on above: CRITICAL VALUE VERIF IED. CALLED TO [id number]/30/23 0519 Alfredo Pardo.RESULTS READ BACK BY SAME. Serum or plasma albumin sarbjit urement (mass/volume)Ordered By: Clementine Prieto on 06-26-2023 Albumin [Mass/Vol] 2.3 g/dL 3.2-5.0 [facility] Serum or plasma albumin/glob ulin mass ratioOrdered By: Clementine Prieto on 06-26-2023 Albumin/Globulin [Mass ratio] 0.5 {ratio} 0.9-2.4 [facility] Stool Clostridium difficile detectionOrdered By: Clementine Prieto on 06-26-2023 C. difficile Ql (Stl) [facility] C. difficile Ql (Stl) [facility] Thin prep Papanicolaou smear with manual screeningOrdered By: Clementine Prieto on 06-26-2023 Thin prep Papanicolaou smear with manual screening 73 U/L 15-37 [facility] Assessment of wrist artery p atency prior to arterial punctureOrdered By: Clementine Prieto on 06-25-2023 Arterial patency Wrist artery --pre arterial puncture Positive [facility] Base excessOrdered By: Hilda Prieto on 06-25-2023 Base excess Calc (BldV) [Moles/Vol] -6 mmol/L -2-2 [facility] Basophil percentageOrdered B y: Clementine Prieto on 06-25-2023 Basophil percentage 20.8 mmol/L 22- [facility] Basophils/100 WBC (Bld) 91 % 95-99 [facility] Basophil percentageOrdered B y: Reji Morillo on 06-25-2023 Lactate [Moles/Vol] 1.4 mmol/L 0.4-2.0 [facility] Basophil percentage 50-100 SEEN /hpf 0-5 [facility] Bilirubin Test strip Ql (U)O rdered By: Reji Morillo on 06-25-2023 Bilirubin Ql (U) 1 mg/dL Negative [facility] Comment on above: COLOR OF URINE MAY A FFECT DIPSTICK RESULTS. CO2 (BldA) [Partial pressure ]Ordered By: Clementine Prieto on 06-25-2023 CO2 (Bld) [Partial pressure] 43.2 mm[Hg] 35-45 [facility] Culture, urineOrdered By: Timothy Caldera on 06-25-2023 Bacteria identified Cx Nom (U) Escherichia coli [facility] Bacteria identified Cx Nom (U) Escherichia coli [facility] INR in Blood by Coagulation assayOrdered By: Scott Gamboa on 06-25-2023 INR Coag (Bld) [Relative time] 1.4 {INR} [facility] Ketones Test strip Ql (U)Ord ered By: Reji Morillo on 06-25-2023 Ketones Ql (U) 5 mg/dl Negative [facility] Laboratory - CoagulationOrde red By: Scott Gamboa on 06-25-2023 aPTT Coag (Bld) [Time] 36.1 s 24.1-36.2 [facility] PT Coag (PPP) [Time] 16.9 s 11.7-14.9 [facility] Laboratory - Microbiology an d Antimicrobial susceptibilityOrdered By: Reji Morillo on 06-25-2023 Bacteria identified Cx Nom (Bld) Negative [facility] Bacteria identified Cx Nom (Bld) Staphylococcus epidermidis [facility] Bacteria identified Cx Nom (Bld) Escherichia coli [facility] Bacteria identified Cx Nom (Bld) Negative [facility] Bacteria identified Cx Nom (Bld) Staphylococcus epidermidis [facility] Bacteria identified Cx Nom (Bld) Escherichia coli [facility] Mucus LM Ql (Urine sed)Order ed By: Reji Morillo on 06-25-2023 Mucus Ql (Urine sed) 0 SEEN /hpf [facility] Nitrite Test strip Ql (U)Ord ered By: Reji Morillo on 06-25-2023 Nitrite Ql (U) Positive Negative [facility] No Panel InformationOrdered By: Clementine Prieto on 06-25-2023 Blood Gas Oxygen Percent 15.0 [facility] Blood Gas Sample Site R Radial [facility] Blood Gas Specimen Type ART [facility] Blood Gas Total CO2 22 mmol/L [facility] Blood Gas Vent Mode Not entered [facility] Oxygen Delivery [facility] No Panel InformationOrdered By: Reji Morillo on 06-25-2023 Bacteria Detection (PCR) Staphylococcus epidermidis [facility] Bacteria Detection (PCR) Staphylococcus epidermidis [facility] Oxygen (BldA) [Partial press ure]Ordered By: Clementine Prieto on 06-25-2023 Oxygen (Bld) [Partial pressure] 67 mmHG 75-100 [facility] Protein Test strip Ql (U)Ord ered By: Reji Morillo on 06-25-2023 Protein Ql (U) 100 mg/dl Negative [facility] Squamous epithelial cells de tection in urine sediment by light microscopyOrdered By: Reji Morillo on 06-25-2023 Epithelial cells.squamous LM Ql (Urine sed) 0 SEEN /hpf 5-10 [facility] Urine blood detectionOrdered By: Reji Morillo on 06-25-2023 RBC Ql (U) 250 /ul Negative [facility] RBC Ql (U) 10-25 SEEN /hpf 0-5 [facility] Urine clarityOrdered By: Reji Morillo on 06-25-2023 Clarity (U) Cloudy Clear [facility] Urine color determinationOrd ered By: Reji Morillo on 06-25-2023 Color (U) Yellow Yellow [facility] Urine glucose detectionOrder ed By: Reji Morillo on 06-25-2023 Glucose Ql (U) Normal mg/dl Normal [facility] Urine leukocyte esterase det ection by dipstickOrdered By: Reji Morillo on 06-25-2023 Leukocyte esterase Test strip Ql (U) 500 /ul Negative [facility] Urine pHOrdered By: Reji jonas on 06-25-2023 pH (U) 5.0 [pH] 5.0 - 8.0 [facility] Urine sediment bacteria coun t by microscopy (number/high power field)Ordered By: Reji Morillo on 06-25-2023 Bacteria LM.HPF (Urine sed) [#/Area] 4 /[HPF] None Seen [facility] Urine specific gravity measu rementOrdered By: Reji Moirllo on 06-25-2023 Specific gravity (U) [Rel density] 1.020 1.002-1.030 [facility] Urobilinogen Auto test strip Ql (U)Ordered By: Reji Morillo on 06-25-2023 Urobilinogen Ql (U) 1 mg/dl Normal [facility] pH measurementOrdered By: Kiera Prieto on 06-25-2023 pH (Unsp spec) 7.29 [pH] 7.35-7.45 [facility] Culture, urineOrdered By: Ryder Heller on 05-04-2023 Bacteria identified Cx Nom (U) Culture exhibits no growth. [facility] Bacteria identified Cx Nom (U) Culture exhibits no growth. [facility] Absolute lymphocyte countOrd ered By: Corby Heller on 04-21-2023 Lymphocytes Auto (Unsp spec) [#/Vol] 1.98 10*3/uL 0.83-4.51 [facility] Basophil percentageOrdered B y: Corby Conroyok on 04-21-2023 Basophils/100 WBC (Bld) 0.8 % 0-1 [facility] Bilirubin [Mass/Vol] 0.30 mg/dL 0.20-1.00 [facility] Comment on above: For patients on eltr ombopag therapy, use of Dimension [place] TBIL is not recommended. Chloride [Moles/Vol] 105 mmol/L 98-107 [facility] Eosinophils/100 WBC (Bld) 2.8 % 0-5 [facility] Glucose [Mass/Vol] 123 mg/dL 74-106 [facility] Comment on above: Fasting Glucose resu lt from 100 to 125 mg/dL suggests IMPAIRED HOMEOSTASIS per A.D.A. criteria. Neutrophils (Bld) [#/Vol] 5.6 10*3/uL 2.0-7.7 [facility] Neutrophils/100 WBC (Bld) 65.0 % 47-70 [facility] Potassium [Moles/Vol] 4.2 mmol/L 3.5-5.1 [facility] Protein [Mass/Vol] 8.6 g/dL 6.4-8.2 [facility] Sodium [Moles/Vol] 138 mmol/L 136-145 [facility] WBC (Bld) [#/Vol] 8.6 10*3/uL 4.4-11.0 [facility] Blood erythrocytes count (nu mber/volume)Ordered By: Corby Heller on 04-21-2023 RBC (Bld) [#/Vol] 4.03 10*6/uL 4.2-5.4 [facility] Blood hemoglobin measurement (mass/volume)Ordered By: Corby Heller on 04-21-2023 Hemoglobin (Bld) [Mass/Vol] 12.1 g/dL 12.0-15.0 [facility] Blood lymphocytes/100 leukoc ytesOrdered By: Corby Heller on 04-21-2023 Lymphocytes/100 WBC (Bld) 23.1 % 19-41 [facility] Blood monocytes/100 leukocyt esOrdered By: Corby Heller on 04-21-2023 Monocytes/100 WBC (Bld) 8.1 % 0-10 [facility] Blood platelet mean volumeOr dered By: Corby Heller on 04-21-2023 Platelet mean volume (Bld) [Entitic vol] 10.0 fL 6.2-12.0 [facility] Culture, urineOrdered By: Ryder Helelr on 04-21-2023 Bacteria identified Cx Nom (U) Escherichia coli [facility] Bacteria identified Cx Nom (U) Escherichia coli [facility] Determination of erythrocyte mean corpuscular volume (MCV)Ordered By: Corby Heller on 04-21-2023 MCV (RBC) [Entitic vol] 97.8 fL 81-99 [facility] Hematocrit Auto (Bld) [Volum e fraction]Ordered By: Corby Heller on 04-21-2023 Hematocrit (Bld) [Volume fraction] 39.4 % 37-47 [facility] Laboratory - Chemistry and C hemistry - challengeOrdered By: Corby Heller on 04-21-2023 ALP [Catalytic activity/Vol] 78 U/L 45-117 [facility] ALT [Catalytic activity/Vol] 24 U/L 13-56 [facility] CO2 [Moles/Vol] 27.0 mmol/L 21.0-32.0 [facility] Globulin (S) [Mass/Vol] 5.4 g/dL 2.2-4.2 [facility] Urea nitrogen/Creatinine [Mass ratio] 23.9 mg/mg 10-20 [facility] Laboratory - Hematology and Cell countsOrdered By: Corby Heller on 04-21-2023 Erythrocyte distribution width (RBC) [Entitic vol] 50.4 fL 35.1-43.9 [facility] Erythrocyte distribution width (RBC) [Ratio] 14.2 % 11.6-14.6 [facility] Immature granulocytes/100 WBC (Bld) 0.200 % 0.0-0.9 [facility] Comment on above: IG% - Immature Granu locytes (promyelocytes, myelocytes and metamyelocytes) > 1% indicates that a LEFT SHIFT is Present. MCH (RBC) [Entitic mass] 30.0 pg 27.0-32.0 [facility] Nucleated RBC/100 WBC (Bld) [Ratio] 0 % 0-5 [facility] MCHC Auto (RBC) [Mass/Vol]Or dered By: Corby Heller on 04-21-2023 MCHC (RBC) [Mass/Vol] 30.7 g/dL 32-36 [facility] No Panel InformationOrdered By: Corby Heller on 04-21-2023 Estimated GFR (MDRD) Amer 81 mL/min >60 [facility] Comment on above: GFR Calc Estimated GFR (MDRD) Non-Af Amer 67 mL/min >60 [facility] Comment on above: Non- GFR Calc Thyroid Stimulating Hormone (TSH) 3.47 uIU/mL 0.358-3.74 [facility] Vitamin D 25-Hydroxy 50.3 ng/mL [facility] Comment on above: Vitamin D 25(OH) Sta tus Range Deficiency <20 ng/mL (50nmol/L) Insufficiency 20 - 30 ng/mL (50 - 75 nmol/L) Sufficiency 30 - 100 ng/mL (75 - 250 nmol/L) Toxicity >100 ng/mL (>250 nmol/L) Platelets bldOrdered By: Corby Heller on 04-21-2023 Platelets (Bld) [#/Vol] 289 10*3/uL 150-450 [facility] Serum or plasma albumin sarbjit urement (mass/volume)Ordered By: Corby Heller on 04-21-2023 Albumin [Mass/Vol] 3.2 g/dL 3.2-5.0 [facility] Serum or plasma albumin/glob ulin mass ratioOrdered By: Corby Heller on 04-21-2023 Albumin/Globulin [Mass ratio] 0.6 {ratio} 0.9-2.4 [facility] Serum or plasma calcium sarbjit urement (mass/volume)Ordered By: Corby Heller on 04-21-2023 Calcium [Mass/Vol] 10.0 mg/dL 8.5-10.1 [facility] Serum or plasma creatinine m easurement (mass/volume)Ordered By: Corby Heller on 04-21-2023 Creatinine [Mass/Vol] 0.88 mg/dL 0.55-1.02 [facility] Comment on above: The validity of the calculated GFR & GFRAA in patients over 70 years has not been determined. Clinical correlation is essential. Serum or plasma urea nitroge n measurement (mass/volume)Ordered By: Corby Heller on 04-21-2023 Urea nitrogen [Mass/Vol] 21 mg/dL 7-18 [facility] Thin prep Papanicolaou smear with manual screeningOrdered By: Corby Heller on 04-21-2023 Thin prep Papanicolaou smear with manual screening 28 U/L 15-37 [facility] Thin prep Papanicolaou smear with manual screening 6 5-15 [facility] Absolute lymphocyte countOrd ered By: Dr. Heller on 03-18-2023 Lymphocytes Auto (Unsp spec) [#/Vol] 2.27 10*3/uL 0.83-4.51 [facility] Basophil percentageOrdered B y: Dr. Heller on 03-18-2023 Basophils/100 WBC (Bld) 0.8 % 0-1 [facility] Bilirubin [Mass/Vol] 0.50 mg/dL 0.20-1.00 [facility] Comment on above: For patients on eltr ombopag therapy, use of Dimension [place] TBIL is not recommended. Chloride [Moles/Vol] 105 mmol/L 98-107 [facility] Eosinophils/100 WBC (Bld) 3.1 % 0-5 [facility] Glucose [Mass/Vol] 143 mg/dL 74-106 [facility] Comment on above: Fasting Glucose resu lt greater than or equal to 126 mg/dL suggests DIABETES MELLITUS per A.D.A. criteria. Neutrophils (Bld) [#/Vol] 4.9 10*3/uL 2.0-7.7 [facility] Neutrophils/100 WBC (Bld) 59.4 % 47-70 [facility] Potassium [Moles/Vol] 4.4 mmol/L 3.5-5.1 [facility] Protein [Mass/Vol] 7.5 g/dL 6.4-8.2 [facility] Sodium [Moles/Vol] 139 mmol/L 136-145 [facility] WBC (Bld) [#/Vol] 8.3 10*3/uL 4.4-11.0 [facility] Blood erythrocytes count (nu mber/volume)Ordered By: Dr. Heller on 03-18-2023 RBC (Bld) [#/Vol] 3.82 10*6/uL 4.2-5.4 [facility] Blood hemoglobin measurement (mass/volume)Ordered By: Dr. Heller on 03-18-2023 Hemoglobin (Bld) [Mass/Vol] 11.7 g/dL 12.0-15.0 [facility] Blood lymphocytes/100 leukoc ytesOrdered By: Dr. Heller on 03-18-2023 Lymphocytes/100 WBC (Bld) 27.3 % 19-41 [facility] Blood monocytes/100 leukocyt esOrdered By: Dr. Heller on 03-18-2023 Monocytes/100 WBC (Bld) 8.8 % 0-10 [facility] Blood platelet mean volumeOr dered By: Dr. Heller on 03-18-2023 Platelet mean volume (Bld) [Entitic vol] 9.9 fL 6.2-12.0 [facility] Determination of erythrocyte mean corpuscular volume (MCV)Ordered By: Dr. Heller on 03-18-2023 MCV (RBC) [Entitic vol] 96.9 fL 81-99 [facility] Hematocrit Auto (Bld) [Volum e fraction]Ordered By: Dr. Heller on 03-18-2023 Hematocrit (Bld) [Volume fraction] 37.0 % 37-47 [facility] Laboratory - Chemistry and C hemistry - challengeOrdered By: Dr. Heller on 03-18-2023 ALP [Catalytic activity/Vol] 72 U/L 45-117 [facility] ALT [Catalytic activity/Vol] 26 U/L 13-56 [facility] CO2 [Moles/Vol] 30.0 mmol/L 21.0-32.0 [facility] Globulin (S) [Mass/Vol] 4.4 g/dL 2.2-4.2 [facility] Urea nitrogen/Creatinine [Mass ratio] 29.0 mg/mg 10-20 [facility] Laboratory - Hematology and Cell countsOrdered By: Dr. Heller on 03-18-2023 Erythrocyte distribution width (RBC) [Entitic vol] 51.7 fL 35.1-43.9 [facility] Erythrocyte distribution width (RBC) [Ratio] 14.6 % 11.6-14.6 [facility] Immature granulocytes/100 WBC (Bld) 0.600 % 0.0-0.9 [facility] Comment on above: IG% - Immature Granu locytes (promyelocytes, myelocytes and metamyelocytes) > 1% indicates that a LEFT SHIFT is Present. MCH (RBC) [Entitic mass] 30.6 pg 27.0-32.0 [facility] Nucleated RBC/100 WBC (Bld) [Ratio] 0 % 0-5 [facility] MCHC Auto (RBC) [Mass/Vol]Or dered By: Dr. Heller on 03-18-2023 MCHC (RBC) [Mass/Vol] 31.6 g/dL 32-36 [facility] No Panel InformationOrdered By: Dr. Heller on 03-18-2023 Estimated GFR (MDRD) Amer 91 mL/min >60 [facility] Comment on above: GFR Calc Estimated GFR (MDRD) Non-Af Amer 75 mL/min >60 [facility] Comment on above: Non- GFR Calc Platelets bldOrdered By: Dr. Heller on 03-18-2023 Platelets (Bld) [#/Vol] 221 10*3/uL 150-450 [facility] Serum or plasma albumin sarbjit urement (mass/volume)Ordered By: Dr. Heller on 03-18-2023 Albumin [Mass/Vol] 3.1 g/dL 3.2-5.0 [facility] Serum or plasma albumin/glob ulin mass ratioOrdered By: Dr. Heller on 03-18-2023 Albumin/Globulin [Mass ratio] 0.7 {ratio} 0.9-2.4 [facility] Serum or plasma calcium sarbjit urement (mass/volume)Ordered By: Dr. Heller on 03-18-2023 Calcium [Mass/Vol] 9.2 mg/dL 8.5-10.1 [facility] Serum or plasma creatinine m easurement (mass/volume)Ordered By: Dr. Heller on 03-18-2023 Creatinine [Mass/Vol] 0.79 mg/dL 0.55-1.02 [facility] Comment on above: The validity of the calculated GFR & GFRAA in patients over 70 years has not been determined. Clinical correlation is essential. Serum or plasma urea nitroge n measurement (mass/volume)Ordered By: Dr. Heller on 03-18-2023 Urea nitrogen [Mass/Vol] 23 mg/dL 7-18 [facility] Thin prep Papanicolaou smear with manual screeningOrdered By: Dr. Heller on 03-18-2023 Thin prep Papanicolaou smear with manual screening 33 U/L 15-37 [facility] Thin prep Papanicolaou smear with manual screening 4 5-15 [facility] Absolute lymphocyte countOrd ered By: Dr. Heller on 01-21-2023 Lymphocytes Auto (Unsp spec) [#/Vol] 1.96 10*3/uL 0.83-4.51 [facility] Basophil percentageOrdered B y: Dr. Heller on 01-21-2023 Basophils/100 WBC (Bld) 0.9 % 0-1 [facility] Bilirubin [Mass/Vol] 0.30 mg/dL 0.20-1.00 [facility] Comment on above: For patients on eltr ombopag therapy, use of Dim[place] TBIL is not recommended. Chloride [Moles/Vol] 104 mmol/L 98-107 [facility] Eosinophils/100 WBC (Bld) 2.9 % 0-5 [facility] Glucose [Mass/Vol] 220 mg/dL 74-106 [facility] Comment on above: Glucose result great er than or equal to 200 mg/dLsuggests DIABETES MELLITUS per A.D.A. criteria. Neutrophils (Bld) [#/Vol] 5.1 10*3/uL 2.0-7.7 [facility] Neutrophils/100 WBC (Bld) 63.1 % 47-70 [facility] Potassium [Moles/Vol] 3.8 mmol/L 3.5-5.1 [facility] Protein [Mass/Vol] 7.7 g/dL 6.4-8.2 [facility] Sodium [Moles/Vol] 137 mmol/L 136-145 [facility] WBC (Bld) [#/Vol] 8.0 10*3/uL 4.4-11.0 [facility] Blood erythrocytes count (nu mber/volume)Ordered By: Dr. Heller on 01-21-2023 RBC (Bld) [#/Vol] 3.99 10*6/uL 4.2-5.4 [facility] Blood hemoglobin measurement (mass/volume)Ordered By: Dr. Heller on 01-21-2023 Hemoglobin (Bld) [Mass/Vol] 12.1 g/dL 12.0-15.0 [facility] Blood lymphocytes/100 leukoc ytesOrdered By: Dr. Heller on 01-21-2023 Lymphocytes/100 WBC (Bld) 24.5 % 19-41 [facility] Blood monocytes/100 leukocyt esOrdered By: Dr. Heller on 01-21-2023 Monocytes/100 WBC (Bld) 7.6 % 0-10 [facility] Blood platelet mean volumeOr dered By: Dr. Heller on 01-21-2023 Platelet mean volume (Bld) [Entitic vol] 9.5 fL 6.2-12.0 [facility] Determination of erythrocyte mean corpuscular volume (MCV)Ordered By: Dr. Heller on 01-21-2023 MCV (RBC) [Entitic vol] 96.2 fL 81-99 [facility] Hematocrit Auto (Bld) [Volum e fraction]Ordered By: Dr. Heller on 01-21-2023 Hematocrit (Bld) [Volume fraction] 38.4 % 37-47 [facility] Laboratory - Chemistry and C hemistry - challengeOrdered By: Dr. Heller on 01-21-2023 ALP [Catalytic activity/Vol] 73 U/L 45-117 [facility] ALT [Catalytic activity/Vol] 22 U/L 13-56 [facility] CO2 [Moles/Vol] 28.0 mmol/L 21.0-32.0 [facility] Globulin (S) [Mass/Vol] 4.8 g/dL 2.2-4.2 [facility] Urea nitrogen/Creatinine [Mass ratio] 18.0 mg/mg 10-20 [facility] Laboratory - Hematology and Cell countsOrdered By: Dr. Heller on 01-21-2023 Erythrocyte distribution width (RBC) [Entitic vol] 51.6 fL 35.1-43.9 [facility] Erythrocyte distribution width (RBC) [Ratio] 14.6 % 11.6-14.6 [facility] Immature granulocytes/100 WBC (Bld) 1.000 % 0.0-0.9 [facility] Comment on above: IG% - Immature Granu locytes (promyelocytes, myelocytes and metamyelocytes) > 1% indicates that a LEFT SHIFT is Present. MCH (RBC) [Entitic mass] 30.3 pg 27.0-32.0 [facility] Nucleated RBC/100 WBC (Bld) [Ratio] 0 % 0-5 [facility] MCHC Auto (RBC) [Mass/Vol]Or dered By: Dr. Heller on 01-21-2023 MCHC (RBC) [Mass/Vol] 31.5 g/dL 32-36 [facility] No Panel InformationOrdered By: Dr. Heller on 01-21-2023 Estimated GFR (MDRD) Amer 75 mL/min >60 [facility] Comment on above: GFR Calc Estimated GFR (MDRD) Non-Af Amer 62 mL/min >60 [facility] Comment on above: Non- GFR Calc Thyroid Stimulating Hormone (TSH) 3.09 uIU/mL 0.358-3.74 [facility] Vitamin D 25-Hydroxy 48.3 ng/mL [facility] Comment on above: Vitamin D 25(OH) Sta tus Range Deficiency <20 ng/mL (50nmol/L) Insufficiency 20 - 30 ng/mL (50 - 75 nmol/L) Sufficiency 30 - 100 ng/mL (75 - 250 nmol/L) Toxicity >100 ng/mL (>250 nmol/L) Platelets bldOrdered By: Dr. Heller on 01-21-2023 Platelets (Bld) [#/Vol] 257 10*3/uL 150-450 [facility] Serum or plasma albumin sarbjit urement (mass/volume)Ordered By: Dr. Heller on 01-21-2023 Albumin [Mass/Vol] 2.9 g/dL 3.2-5.0 [facility] Serum or plasma albumin/glob ulin mass ratioOrdered By: Dr. Heller on 01-21-2023 Albumin/Globulin [Mass ratio] 0.6 {ratio} 0.9-2.4 [facility] Serum or plasma calcium sarbjit urement (mass/volume)Ordered By: Dr. Heller on 01-21-2023 Calcium [Mass/Vol] 9.3 mg/dL 8.5-10.1 [facility] Serum or plasma creatinine m easurement (mass/volume)Ordered By: Dr. Heller on 01-21-2023 Creatinine [Mass/Vol] 0.94 mg/dL 0.55-1.02 [facility] Comment on above: The validity of the calculated GFR & GFRAA in patients over 70 years has not been determined. Clinical correlation is essential. Serum or plasma urea nitroge n measurement (mass/volume)Ordered By: Dr. Heller on 01-21-2023 Urea nitrogen [Mass/Vol] 17 mg/dL 7-18 [facility] Thin prep Papanicolaou smear with manual screeningOrdered By: Dr. Heller on 01-21-2023 Thin prep Papanicolaou smear with manual screening 30 U/L 15-37 [facility] Thin prep Papanicolaou smear with manual screening 5 5-15 [facility] Absolute lymphocyte countOrd ered By: Dr. Heller on 12-17-2022 Lymphocytes Auto (Unsp spec) [#/Vol] 2.09 10*3/uL 0.83-4.51 [facility] Basophil percentageOrdered B y: Dr. Heller on 12-17-2022 Basophils/100 WBC (Bld) 0.8 % 0-1 [facility] Bilirubin [Mass/Vol] 0.50 mg/dL 0.20-1.00 [facility] Comment on above: For patients on eltr ombopag therapy, use of [place] TBIL is not recommended. Chloride [Moles/Vol] 103 mmol/L 98-107 [facility] Eosinophils/100 WBC (Bld) 3.4 % 0-5 [facility] Glucose [Mass/Vol] 135 mg/dL 74-106 [facility] Comment on above: Fasting Glucose resu lt greater than or equal to 126 mg/dL suggests DIABETES MELLITUS per A.D.A. criteria. Neutrophils (Bld) [#/Vol] 5.8 10*3/uL 2.0-7.7 [facility] Neutrophils/100 WBC (Bld) 64.6 % 47-70 [facility] Potassium [Moles/Vol] 4.0 mmol/L 3.5-5.1 [facility] Protein [Mass/Vol] 8.4 g/dL 6.4-8.2 [facility] Sodium [Moles/Vol] 139 mmol/L 136-145 [facility] WBC (Bld) [#/Vol] 9.0 10*3/uL 4.4-11.0 [facility] Blood erythrocytes count (nu mber/volume)Ordered By: Dr. Heller on 12-17-2022 RBC (Bld) [#/Vol] 4.13 10*6/uL 4.2-5.4 [facility] Blood hemoglobin measurement (mass/volume)Ordered By: Dr. Heller on 12-17-2022 Hemoglobin (Bld) [Mass/Vol] 12.6 g/dL 12.0-15.0 [facility] Blood lymphocytes/100 leukoc ytesOrdered By: Dr. Heller on 12-17-2022 Lymphocytes/100 WBC (Bld) 23.2 % 19-41 [facility] Blood monocytes/100 leukocyt esOrdered By: Dr. Heller on 12-17-2022 Monocytes/100 WBC (Bld) 7.6 % 0-10 [facility] Blood platelet mean volumeOr dered By: Dr. Heller on 12-17-2022 Platelet mean volume (Bld) [Entitic vol] 9.7 fL 6.2-12.0 [facility] Determination of erythrocyte mean corpuscular volume (MCV)Ordered By: Dr. Heller on 12-17-2022 MCV (RBC) [Entitic vol] 95.6 fL 81-99 [facility] Hematocrit Auto (Bld) [Volum e fraction]Ordered By: Dr. Heller on 12-17-2022 Hematocrit (Bld) [Volume fraction] 39.5 % 37-47 [facility] Laboratory - Chemistry and C hemistry - challengeOrdered By: Dr. Heller on 12-17-2022 ALP [Catalytic activity/Vol] 71 U/L 45-117 [facility] ALT [Catalytic activity/Vol] 22 U/L 13-56 [facility] CO2 [Moles/Vol] 26.0 mmol/L 21.0-32.0 [facility] Globulin (S) [Mass/Vol] 5.1 g/dL 2.2-4.2 [facility] Urea nitrogen/Creatinine [Mass ratio] 25.5 mg/mg 10-20 [facility] Laboratory - Hematology and Cell countsOrdered By: Dr. Heller on 12-17-2022 Erythrocyte distribution width (RBC) [Entitic vol] 48.5 fL 35.1-43.9 [facility] Erythrocyte distribution width (RBC) [Ratio] 13.9 % 11.6-14.6 [facility] Immature granulocytes/100 WBC (Bld) 0.400 % 0.0-0.9 [facility] Comment on above: IG% - Immature Granu locytes (promyelocytes, myelocytes and metamyelocytes) > 1% indicates that a LEFT SHIFT is Present. MCH (RBC) [Entitic mass] 30.5 pg 27.0-32.0 [facility] Nucleated RBC/100 WBC (Bld) [Ratio] 0 % 0-5 [facility] MCHC Auto (RBC) [Mass/Vol]Or dered By: Dr. Heller on 12-17-2022 MCHC (RBC) [Mass/Vol] 31.9 g/dL 32-36 [facility] No Panel InformationOrdered By: Dr. Heller on 12-17-2022 Estimated GFR (MDRD) Amer 79 mL/min >60 [facility] Comment on above: GFR Calc Estimated GFR (MDRD) Non-Af Amer 65 mL/min >60 [facility] Comment on above: Non- GFR Calc Thyroid Stimulating Hormone (TSH) 3.57 uIU/mL 0.358-3.74 [facility] Vitamin D 25-Hydroxy 47.7 ng/mL [facility] Comment on above: Vitamin D 25(OH) Sta tus Range Deficiency <20 ng/mL (50nmol/L) Insufficiency 20 - 30 ng/mL (50 - 75 nmol/L) Sufficiency 30 - 100 ng/mL (75 - 250 nmol/L) Toxicity >100 ng/mL (>250 nmol/L) Platelets bldOrdered By: Dr. Heller on 12-17-2022 Platelets (Bld) [#/Vol] 239 10*3/uL 150-450 [facility] Serum or plasma albumin sarbjit urement (mass/volume)Ordered By: Dr. Heller on 12-17-2022 Albumin [Mass/Vol] 3.3 g/dL 3.2-5.0 [facility] Serum or plasma albumin/glob ulin mass ratioOrdered By: Dr. Heller on 12-17-2022 Albumin/Globulin [Mass ratio] 0.6 {ratio} 0.9-2.4 [facility] Serum or plasma calcium sarbjit urement (mass/volume)Ordered By: Dr. Heller on 12-17-2022 Calcium [Mass/Vol] 10.6 mg/dL 8.5-10.1 [facility] Serum or plasma creatinine m easurement (mass/volume)Ordered By: Dr. Heller on 12-17-2022 Creatinine [Mass/Vol] 0.90 mg/dL 0.55-1.02 [facility] Comment on above: The validity of the calculated GFR & GFRAA in patients over 70 years has not been determined. Clinical correlation is essential. Serum or plasma urea nitroge n measurement (mass/volume)Ordered By: Dr. Heller on 12-17-2022 Urea nitrogen [Mass/Vol] 23 mg/dL 7-18 [facility] Thin prep Papanicolaou smear with manual screeningOrdered By: Dr. Heller on 12-17-2022 Thin prep Papanicolaou smear with manual screening 25 U/L 15-37 [facility] Thin prep Papanicolaou smear with manual screening 10 5-15 [facility] CNOVon 08-04-2022 CNOV Office Visit (VASSWS ) EDUAR CABRERA ([id number]) 1950 F Date Time Provider Department 08/04/22 10:45 AM GRISEL VILLANUEVA During your visit today, we recorded the following information about you: Pulse Blood pressure 109/minute 131/57 Grisel Villanueva DO 08/17/2022 3:07 PM Signed This office note has been dictated. Grisel Villanueva DO Referring Provider: SELF [[id number]] Allergies As of Date: 08/04/2022 Noted Allergy Reaction ALEVE (NAPROXEN SODIUM) 03/15/2012 14 - Other: See Comments Comments: Causes bleeding ASA (ASPIRIN) 03/15/2012 14 - Other: See Comments Comments: Causes bleeding CELEBREX (CELECOXIB) 03/15/2012 12 - Shortness of Breath CEPHALEXIN 03/15/2012 12 - Shortness of Breath DAYPRO (OXAPROZIN) 03/15/2012 12 - Shortness of Breath IBUPROFEN 06/09/2012 14 - Other: See Comments Comments: Bleeding in large doses ULTRAM (TRAMADOL HCL) 03/15/2012 12 - Shortness of Breath Date Reviewed: 08/04/2022 Reviewed by: Rosemarie Marr, HENRY - Fully Assessed Reason for Visit: Established Patient [175] Primary Visit Diagnosis:Venous (peripheral) insufficiency [I87.2] Order(s):COMPRESSION STOCKINGS [[id number]] Order #: [id number] Prescriptions as of 08/17/2022 - rOPINIRole (REQUIP) 0.5 mg tablet Take by mouth. TAKING 2MG - benzonatate (TESSALON PERLE) 100 mg capsule - ffprzoj-ijxg-pigpl-ore g-capryl 100 mg-150 mg- 50 mg-150 mg cap Take 500 mg by mouth. - COQ10, UBIQUINOL, ORAL Take 50 mg by mouth once daily. - vmiitoa-chifngdtj-odxn min D3 500 mg-5 mcg (200 unit) per tablet Take 1 tablet by mouth once daily. - cholecalciferol, vitamin D3, 10 mcg (400 unit) cap Take 400 Units by mouth once daily. - potassium chloride ER (K-DUR, KLOR-CON) 20 mEq tablet Take 20 mEq by mouth once daily. - melatonin 10 mg cap Take 1 capsule by mouth once daily. - Magnesium 250 mg tab Take 250 mg by mouth once daily. - FIBER, HERBAL, ORAL Take 1 tablet by mouth once daily. - CINNAMON BARK (CINNAMON ORAL) Take 1,000 mg by mouth twice daily. - cyclobenzaprine (FLEXERIL) 10 mg tablet Take 10 mg by mouth as needed. - B INFANTIS/B ANI/B LATONYA/B BIFID (PROBIOTIC 4X ORAL) Take by mouth. - COMPOUNDED PRESCRIPTION Spirolina - ascorbic acid, vitamin C, (VITAMIN C) 500 mg tablet Take 500 mg by mouth twice daily. - ECHINACEA, BULK, MISC In winter 3 times a week. - Garlic 1,000 mg cap Take by mouth every Wednesday,Wednesday, y. - GLUCOSAM HCL/MSM/CHONDRO FRANK A (GLUCOSAMINE [id number] ORAL) Take by mouth. 1200 mg daily - Gelatin 650 mg capsule Take 1,300 mg by mouth once daily. - Lovastatin 40 mg tablet Take 40 mg by mouth daily at bedtime. - LEVOTHYROXINE SODIUM (LEVOTHYROXINE ORAL) Take by mouth. - metFORMIN 500 mg tablet Take 500 mg by mouth three times daily. - fluticasone 50 mcg/actuation nasal spray Use 1 [place] in each nostril once daily. - olmesartan (BENICAR) 20 mg tablet Take 20 mg by mouth once daily. - MULTIVITAMIN ORAL Take by mouth. Problem List As Of Date 08/04/2022 Noted Resolved Recurrent urinary tract infection [N39.0] 06/09/2012 Morbid obesity [E66.01] 06/09/2012 Urgency of urination [R39.15] 06/09/2012 Frequency of urination [R35.0] 06/09/2012 Dysuria [R30.0] 06/09/2012 Dehydration [E86.0] 01/19/2013 Kidney stone [N20.0] 05/18/2013 Screening for other and unspecified genitourina*06/11/2015 Encounter Status:Closed by GRISEL VILLANUEVA on 08/17/22 Normal [facility] Absolute lymphocyte counton 07-27-2022 Lymphocytes Auto (Unsp spec) [#/Vol] 2.04 10*3/uL 0.83-4.51 [facility] Work Phone: Basophil percentageon 2021 Basophils/100 WBC (Bld) 0.4 % 0-1 [facility] Work Phone: Eosinophils/100 WBC (Bld) 1.9 % 0-5 [facility] Work Phone: Neutrophils (Bld) [#/Vol] 8.5 10*3/uL 2.0-7.7 [facility] Work Phone: Neutrophils/100 WBC (Bld) 71.6 % 47-70 [facility] Work Phone: WBC (Bld) [#/Vol] 11.9 10*3/uL 4.4-11.0 [facility] Work Phone: Blood erythrocytes count (nu mber/volume)on 07-27-2022 RBC (Bld) [#/Vol] 3.78 10*6/uL 4.2-5.4 [facility] Work Phone: Blood hemoglobin measurement (mass/volume)on 07-27-2022 Hemoglobin (Bld) [Mass/Vol] 11.7 g/dL 12.0-15.0 [facility] Work Phone: Blood lymphocytes/100 leukoc yteson 07-27-2022 Lymphocytes/100 WBC (Bld) 17.2 % 19-41 [facility] Work Phone: Blood monocytes/100 leukocyt eson 07-27-2022 Monocytes/100 WBC (Bld) 8.1 % 0-10 [facility] Work Phone: [phone] Blood platelet adequacy dete ction by light microscopyon 07-27-2022 Platelets LM Ql (Bld) ADEQUATE ADEQ [facility] Work Phone: [phone] Blood platelet mean volumeon 07-27-2022 Platelet mean volume (Bld) [Entitic vol] 10.8 fL 6.2-12.0 [facility] Work Phone: [phone] Determination of erythrocyte mean corpuscular volume (MCV)on 07-27-2022 MCV (RBC) [Entitic vol] 95.8 fL 81-99 [facility] Work Phone: [phone] Hematocrit Auto (Bld) [Volum e fraction]on 07-27-2022 Hematocrit (Bld) [Volume fraction] 36.2 % 37-47 [facility] Work Phone: [phone] Laboratory - Hematology and Cell countson 07-27-2022 Erythrocyte distribution width (RBC) [Entitic vol] 50.7 fL 35.1-43.9 [facility] Work Phone: [phone] Erythrocyte distribution width (RBC) [Ratio] 14.6 % 11.6-14.6 [facility] Work Phone: [phone] Immature granulocytes/100 WBC (Bld) 0.800 % 0.0-0.9 [facility] Work Phone: [phone] Comment on above: IG% - Immature Granu locytes (promyelocytes, myelocytes and metamyelocytes) > 1% indicates that a LEFT SHIFT is Present. MCH (RBC) [Entitic mass] 31.0 pg 27.0-32.0 [facility] Work Phone: [phone] Nucleated RBC/100 WBC (Bld) [Ratio] 0 % 0-5 [facility] Work Phone: [phone] MCHC Auto (RBC) [Mass/Vol]on 07-27-2022 MCHC (RBC) [Mass/Vol] 32.3 g/dL 32-36 [facility] Work Phone: No Panel Informationon 07-27 Vitamin D 25-Hydroxy 46.8 ng/mL [facility] Work Phone: Comment on above: Vitamin D 25(OH) Sta tus Range Deficiency <20 ng/mL (50nmol/L) Insufficiency 20 - 30 ng/mL (50 - 75 nmol/L) Sufficiency 30 - 100 ng/mL (75 - 250 nmol/L) Toxicity >100 ng/mL (>250 nmol/L) Platelets bldon 07-27-2022 Platelets (Bld) [#/Vol] 229 10*3/uL 150-450 [facility] Work Phone: RBC morphologyon 07-27-2022 RBC morphology finding Nom (Bld) NORM C+C NORMAL NORM C&C [facility] Work Phone: Absolute lymphocyte counton 04-07-2022 Lymphocytes Auto (Unsp spec) [#/Vol] 2.26 10*3/uL 0.83-4.51 [facility] Work Phone: Basophil percentageon 2021 Basophils/100 WBC (Bld) 0.7 % 0-1 [facility] Work Phone: Bilirubin [Mass/Vol] 0.30 mg/dL 0.20-1.00 [facility] Work Phone: Comment on above: For patients on eltr ombopag therapy, use of Dimension [place] TBIL is not recommended. Chloride [Moles/Vol] 102 mmol/L 98-107 [facility] Work Phone: Eosinophils/100 WBC (Bld) 1.8 % 0-5 [facility] Work Phone: Glucose [Mass/Vol] 97 mg/dL 74-106 [facility] Work Phone: Neutrophils (Bld) [#/Vol] 6.1 10*3/uL 2.0-7.7 [facility] Work Phone: Neutrophils/100 WBC (Bld) 64.9 % 47-70 [facility] Work Phone: Potassium [Moles/Vol] 4.7 mmol/L 3.5-5.1 [facility] Work Phone: Protein [Mass/Vol] 7.8 g/dL 6.4-8.2 [facility] Work Phone: Sodium [Moles/Vol] 138 mmol/L 136-145 [facility]: [phone] WBC (Bld) [#/Vol] 9.5 10*3/uL 4.4-11.0 [facility] Work Phone: Blood erythrocytes count (nu mber/volume)on 04-07-2022 RBC (Bld) [#/Vol] 3.89 10*6/uL 4.2-5.4 [facility]: Blood hemoglobin measurement (mass/volume)on 04-07-2022 Hemoglobin (Bld) [Mass/Vol] 11.6 g/dL 12.0-15.0 [facility] Work Phone: Blood lymphocytes/100 leukoc yteson 04-07-2022 Lymphocytes/100 WBC (Bld) 23.9 % 19-41 [facility] Work Phone: Blood monocytes/100 leukocyt eson 04-07-2022 Monocytes/100 WBC (Bld) 7.7 % 0-10 [facility] Work Phone: Blood platelet mean volumeon 04-07-2022 Platelet mean volume (Bld) [Entitic vol] 9.6 fL 6.2-12.0 [facility] Work Phone: Determination of erythrocyte mean corpuscular volume (MCV)on 04-07-2022 MCV (RBC) [Entitic vol] 93.8 fL 81-99 [facility] Work Phone: Hematocrit Auto (Bld) [Volum e fraction]on 04-07-2022 Hematocrit (Bld) [Volume fraction] 36.5 % 37-47 [facility] Work Phone: Laboratory - Chemistry and C hemistry - challengeon 04-07-2022 ALP [Catalytic activity/Vol] 68 U/L 45-117 [facility] Work Phone: [phone] ALT [Catalytic activity/Vol] 25 U/L 13-56 [facility] Work Phone: [phone] CO2 [Moles/Vol] 29.0 mmol/L 21.0-32.0 [facility] Work Phone: [phone] Globulin (S) [Mass/Vol] 4.6 g/dL 2.2-4.2 [facility] Work Phone: [phone] Urea nitrogen/Creatinine [Mass ratio] 26.5 mg/mg 10-20 [facility] Work Phone: [phone] Laboratory - Hematology and Cell countson 04-07-2022 Erythrocyte distribution width (RBC) [Entitic vol] 51.9 fL 35.1-43.9 [facility] Work Phone: [phone] Erythrocyte distribution width (RBC) [Ratio] 15.3 % 11.6-14.6 [facility] Work Phone: [phone] Immature granulocytes/100 WBC (Bld) 1.000 % 0.0-0.9 [facility] Work Phone: [phone] Comment on above: IG% - Immature Granu locytes (promyelocytes, myelocytes and metamyelocytes) > 1% indicates that a LEFT SHIFT is Present. MCH (RBC) [Entitic mass] 29.8 pg 27.0-32.0 [facility] Work Phone: [phone] Nucleated RBC/100 WBC (Bld) [Ratio] 0 % 0-5 [facility] Work Phone: [phone] MCHC Auto (RBC) [Mass/Vol]on 04-07-2022 MCHC (RBC) [Mass/Vol] 31.8 g/dL 32-36 [facility] Work Phone: [phone] Panel Informationon 04-07 Estimated GFR (MDRD) Amer 68 mL/min >60 [facility] Work Phone: [phone] Comment on above: GFR Calc Estimated GFR (MDRD) Non-Af Amer 56 mL/min >60 [facility] Work Phone: Comment on above: Non- GFR Calc Thyroid Stimulating Hormone (TSH) 2.61 uIU/mL 0.358-3.74 [facility] Work Phone: Vitamin D 25-Hydroxy 37.1 ng/mL [facility] Work Phone: Comment on above: Vitamin D 25(OH) Sta tus Range Deficiency <20 ng/mL (50nmol/L) Insufficiency 20 - 30 ng/mL (50 - 75 nmol/L) Sufficiency 30 - 100 ng/mL (75 - 250 nmol/L) Toxicity >100 ng/mL (>250 nmol/L) Platelets bldon 04-07-2022 Platelets (Bld) [#/Vol] 252 10*3/uL 150-450 [facility] Work Phone: Serum or plasma albumin sarbjit urement (mass/volume)on 04-07-2022 Albumin [Mass/Vol] 3.2 g/dL 3.2-5.0 [facility] Work Phone: Serum or plasma albumin/glob ulin mass ratioon 04-07-2022 Albumin/Globulin [Mass ratio] 0.7 {ratio} 0.9-2.4 [facility] Work Phone: Serum or plasma calcium sarbjit urement (mass/volume)on 04-07-2022 Calcium [Mass/Vol] 10.0 mg/dL 8.5-10.1 [facility] Work Phone: Serum or plasma creatinine m easurement (mass/volume)on 04-07-2022 Creatinine [Mass/Vol] 1.02 mg/dL 0.55-1.02 [facility] Work Phone: Comment on above: The validity of the calculated GFR & GFRAA in patients over 70 years has not been determined. Clinical correlation is essential. Serum or plasma urea nitroge n measurement (mass/volume)on 04-07-2022 Urea nitrogen [Mass/Vol] 27 mg/dL 7-18 [facility] Work Phone: Thin prep Papanicolaou smear with manual screeningon 04-07-2022 Thin prep Papanicolaou smear with manual screening 26 U/L 15-37 [facility] Work Phone: Thin prep Papanicolaou smear with manual screening 7 5-15 [facility] Work Phone: Absolute lymphocyte counton 01-20-2022 Lymphocytes Auto (Unsp spec) [#/Vol] 2.53 10*3/uL 0.83-4.51 [facility] Work Phone: Basophil percentageon 2021 Basophils/100 WBC (Bld) 0.5 % 0-1 [facility] Work Phone: Bilirubin [Mass/Vol] 0.30 mg/dL 0.20-1.00 [facility] Work Phone: Comment on above: For patients on eltr ombopag therapy, use of Dim[place] TBIL is not recommended. Chloride [Moles/Vol] 102 mmol/L 98-107 [facility] Work Phone: Eosinophils/100 WBC (Bld) 2.2 % 0-5 [facility] Work Phone: Glucose [Mass/Vol] 100 mg/dL 74-106 [facility] Work Phone: Comment on above: Fasting Glucose resu lt from 100 to 125 mg/dL suggests IMPAIRED HOMEOSTASIS per A.D.A. criteria. Neutrophils (Bld) [#/Vol] 6.9 10*3/uL 2.0-7.7 [facility] Work Phone: Neutrophils/100 WBC (Bld) 64.1 % 47-70 [facility] Work Phone: Potassium [Moles/Vol] 4.4 mmol/L 3.5-5.1 [facility] Work Phone: Protein [Mass/Vol] 8.0 g/dL 6.4-8.2 [facility] Work Phone: Sodium [Moles/Vol] 137 mmol/L 136-145 [facility] Work Phone: [phone] WBC (Bld) [#/Vol] 10.7 10*3/uL 4.4-11.0 [facility] Work Phone: [phone] Blood erythrocytes count (nu mber/volume)on 01-20-2022 RBC (Bld) [#/Vol] 3.76 10*6/uL 4.2-5.4 [facility] Work Phone: [phone] Blood hemoglobin measurement (mass/volume)on 01-20-2022 Hemoglobin (Bld) [Mass/Vol] 11.4 g/dL 12.0-15.0 [facility] Work Phone: [phone] Blood lymphocytes/100 leukoc yteson 01-20-2022 Lymphocytes/100 WBC (Bld) 23.7 % 19-41 [facility] Work Phone: [phone] Blood monocytes/100 leukocyt eson 01-20-2022 Monocytes/100 WBC (Bld) 8.9 % 0-10 [facility] Work Phone: [phone] Blood platelet mean volumeon 01-20-2022 Platelet mean volume (Bld) [Entitic vol] 9.4 fL 6.2-12.0 [facility] Work Phone: [phone] Determination of erythrocyte mean corpuscular volume (MCV)on 01-20-2022 MCV (RBC) [Entitic vol] 93.9 fL 81-99 [facility] Work Phone: [phone] Hematocrit Auto (Bld) [Volum e fraction]on 01-20-2022 Hematocrit (Bld) [Volume fraction] 35.3 % 37-47 [facility] Work Phone: [phone] Laboratory - Chemistry and C hemistry - challengeon 01-20-2022 ALP [Catalytic activity/Vol] 59 U/L 45-117 [facility] Work Phone: [phone] ALT [Catalytic activity/Vol] 29 U/L 13-56 [facility] Work Phone: [phone] CO2 [Moles/Vol] 29.0 mmol/L 21.0-32.0 [facility] Work Phone: [phone] Globulin (S) [Mass/Vol] 4.6 g/dL 2.2-4.2 [facility] Work Phone: [phone] Urea nitrogen/Creatinine [Mass ratio] 34.0 mg/mg 10-20 [facility] Work Phone: [phone] Laboratory - Hematology and Cell countson 01-20-2022 Erythrocyte distribution width (RBC) [Entitic vol] 48.6 fL 35.1-43.9 [facility] Work Phone: [phone] Erythrocyte distribution width (RBC) [Ratio] 14.1 % 11.6-14.6 [facility] Work Phone: [phone] Immature granulocytes/100 WBC (Bld) 0.600 % 0.0-0.9 [facility] Work Phone: [phone] Comment on above: IG% - Immature Granu locytes (promyelocytes, myelocytes and metamyelocytes) > 1% indicates that a LEFT SHIFT is Present. MCH (RBC) [Entitic mass] 30.3 pg 27.0-32.0 [facility] Work Phone: [phone] Nucleated RBC/100 WBC (Bld) [Ratio] 0 % 0-5 [facility] Work Phone: [phone] MCHC Auto (RBC) [Mass/Vol]on 01-20-2022 MCHC (RBC) [Mass/Vol] 32.3 g/dL 32-36 [facility] Work Phone: [phone] Panel Informationon 01-20 Estimated GFR (MDRD) Amer 95 mL/min >60 [facility] Work Phone: [phone] Comment on above: GFR Calc Estimated GFR (MDRD) Non-Af Amer 79 mL/min >60 [facility] Work Phone: [phone] Comment on above: Non- GFR Calc Thyroid Stimulating Hormone (TSH) 2.53 uIU/mL 0.358-3.74 [facility] Work Phone: Vitamin D 25-Hydroxy 46.5 ng/mL [facility] Work Phone: Comment on above: Vitamin D 25(OH) Sta tus Range Deficiency <20 ng/mL (50nmol/L) Insufficiency 20 - 30 ng/mL (50 - 75 nmol/L) Sufficiency 30 - 100 ng/mL (75 - 250 nmol/L) Toxicity >100 ng/mL (>250 nmol/L) Platelets bldon 01-20-2022 Platelets (Bld) [#/Vol] 282 10*3/uL 150-450 [facility] Work Phone: Serum or plasma albumin sarbjit urement (mass/volume)on 01-20-2022 Albumin [Mass/Vol] 3.4 g/dL 3.2-5.0 [facility] Work Phone: Serum or plasma albumin/glob ulin mass ratioon 01-20-2022 Albumin/Globulin [Mass ratio] 0.7 {ratio} 0.9-2.4 [facility] Work Phone: [phone] Serum or plasma calcium sarbjit urement (mass/volume)on 01-20-2022 Calcium [Mass/Vol] 9.6 mg/dL 8.5-10.1 [facility] Work Phone: [phone] Serum or plasma creatinine m easurement (mass/volume)on 01-20-2022 Creatinine [Mass/Vol] 0.76 mg/dL 0.55-1.02 [facility] Work Phone: Comment on above: The validity of the calculated GFR & GFRAA in patients over 70 years has not been determined. Clinical correlation is essential. Serum or plasma urea nitroge n measurement (mass/volume)on 01-20-2022 Urea nitrogen [Mass/Vol] 26 mg/dL 7-18 [facility] Work Phone: Thin prep Papanicolaou smear with manual screeningon 01-20-2022 Thin prep Papanicolaou smear with manual screening 28 U/L 15-37 [facility] Work Phone: [phone] Thin prep Papanicolaou smear with manual screening 6 5-15 [facility] Work Phone: [phone] Absolute lymphocyte counton 10-21-2021 Lymphocytes Auto (Unsp spec) [#/Vol] 2.34 10*3/uL 0.83-4.51 [facility] Work Phone: [phone] Basophil percentageon 2021 Basophils/100 WBC (Bld) 0.6 % 0-1 [facility] Work Phone: [phone] Bilirubin [Mass/Vol] 0.40 mg/dL 0.20-1.00 [facility] Work Phone: [phone] Comment on above: For patients on eltr ombopag therapy, use of Dim[place] TBIL is not recommended. Chloride [Moles/Vol] 101 mmol/L 98-107 [facility] Work Phone: [phone] Eosinophils/100 WBC (Bld) 1.1 % 0-5 [facility] Work Phone: [phone] Glucose [Mass/Vol] 173 mg/dL 74-106 [facility] Work Phone: [phone] Comment on above: Fasting Glucose resu lt greater than or equal to 126 mg/dL suggests DIABETES MELLITUS per A.D.A. criteria. Neutrophils (Bld) [#/Vol] 5.5 10*3/uL 2.0-7.7 [facility] Work Phone: Neutrophils/100 WBC (Bld) 62.8 % 47-70 [facility] Work Phone: [phone] Potassium [Moles/Vol] 4.2 mmol/L 3.5-5.1 [facility] Work Phone: [phone] Protein [Mass/Vol] 7.8 g/dL 6.4-8.2 [facility] Work Phone: [phone] Sodium [Moles/Vol] 138 mmol/L 136-145 [facility] Work Phone: [phone] WBC (Bld) [#/Vol] 8.7 10*3/uL 4.4-11.0 [facility] Work Phone: [phone] Blood erythrocytes count (nu mber/volume)on 10-21-2021 RBC (Bld) [#/Vol] 4.20 10*6/uL 4.2-5.4 [facility] Work Phone: [phone] Blood hemoglobin measurement (mass/volume)on 10-21-2021 Hemoglobin (Bld) [Mass/Vol] 12.3 g/dL 12.0-15.0 [facility] Work Phone: [phone] Blood lymphocytes/100 leukoc yteson 10-21-2021 Lymphocytes/100 WBC (Bld) 26.8 % 19-41 [facility] Work Phone: [phone] Blood monocytes/100 leukocyt eson 10-21-2021 Monocytes/100 WBC (Bld) 8.0 % 0-10 [facility] Work Phone: [phone] Blood platelet mean volumeon 10-21-2021 Platelet mean volume (Bld) [Entitic vol] 9.9 fL 6.2-12.0 [facility] Work Phone: [phone] Determination of erythrocyte mean corpuscular volume (MCV)on 10-21-2021 MCV (RBC) [Entitic vol] 91.9 fL 81-99 [facility] Work Phone: [phone] Hematocrit Auto (Bld) [Volum e fraction]on 10-21-2021 Hematocrit (Bld) [Volume fraction] 38.6 % 37-47 [facility] Work Phone: [phone] Laboratory - Chemistry and C hemistry - challengeon 10-21-2021 ALP [Catalytic activity/Vol] 68 U/L 45-117 [facility] Work Phone: [phone] ALT [Catalytic activity/Vol] 28 U/L 13-56 [facility] Work Phone: [phone] CO2 [Moles/Vol] 29.0 mmol/L 21.0-32.0 [facility] Work Phone: [phone] Globulin (S) [Mass/Vol] 4.6 g/dL 2.2-4.2 [facility] Work Phone: [phone] Urea nitrogen/Creatinine [Mass ratio] 19.0 mg/mg 10-20 [facility] Work Phone: [phone] Laboratory - Hematology and Cell countson 10-21-2021 Erythrocyte distribution width (RBC) [Entitic vol] 57.0 fL 35.1-43.9 [facility] Work Phone: [phone] Erythrocyte distribution width (RBC) [Ratio] 16.8 % 11.6-14.6 [facility] Work Phone: [phone] Immature granulocytes/100 WBC (Bld) 0.700 % 0.0-0.9 [facility] Work Phone: [phone] Comment on above: IG% - Immature Granu locytes (promyelocytes, myelocytes and metamyelocytes) > 1% indicates that a LEFT SHIFT is Present. MCH (RBC) [Entitic mass] 29.3 pg 27.0-32.0 [facility] Work Phone: [phone] Nucleated RBC/100 WBC (Bld) [Ratio] 0 % 0-5 [facility] Work Phone: [phone] MCHC Auto (RBC) [Mass/Vol]on 10-21-2021 MCHC (RBC) [Mass/Vol] 31.9 g/dL 32-36 [facility] Work Phone: [phone] Panel Informationon 10-21 Estimated GFR (MDRD) Amer 66 mL/min >60 [facility] Work Phone: [phone] Comment on above: GFR Calc Estimated GFR (MDRD) Non-Af Amer 55 mL/min >60 [facility] Work Phone: [phone] Comment on above: Non- GFR Calc Thyroid Stimulating Hormone (TSH) 2.44 uIU/mL 0.358-3.74 [facility] Work Phone: [phone] Vitamin D 25-Hydroxy 50.1 ng/mL [facility] Work Phone: [phone] Comment on above: Vitamin D 25(OH) Sta tus Range Deficiency <20 ng/mL (50nmol/L) Insufficiency 20 - 30 ng/mL (50 - 75 nmol/L) Sufficiency 30 - 100 ng/mL (75 - 250 nmol/L) Toxicity >100 ng/mL (>250 nmol/L) Platelets bldon 10-21-2021 Platelets (Bld) [#/Vol] 241 10*3/uL 150-450 [facility] Work Phone: Serum or plasma albumin sarbjit urement (mass/volume)on 10-21-2021 Albumin [Mass/Vol] 3.2 g/dL 3.2-5.0 [facility] Work Phone: Serum or plasma albumin/glob ulin mass ratioon 10-21-2021 Albumin/Globulin [Mass ratio] 0.7 {ratio} 0.9-2.4 [facility] Work Phone: Serum or plasma calcium sarbjit urement (mass/volume)on 10-21-2021 Calcium [Mass/Vol] 10.0 mg/dL 8.5-10.1 [facility] Work Phone: Serum or plasma creatinine m easurement (mass/volume)on 10-21-2021 Creatinine [Mass/Vol] 1.05 mg/dL 0.55-1.02 [facility] Work Phone: Comment on above: The validity of the calculated GFR & GFRAA in patients over 70 years has not been determined. Clinical correlation is essential. Serum or plasma urea nitroge n measurement (mass/volume)on 10-21-2021 Urea nitrogen [Mass/Vol] 20 mg/dL 7-18 [facility] Work Phone: Thin prep Papanicolaou smear with manual screeningon 10-21-2021 Thin prep Papanicolaou smear with manual screening 31 U/L 15-37 [facility] Work Phone: Thin prep Papanicolaou smear with manual screening 8 5-15 [facility] Work Phone: CNOVon 07-25-2019 CNOV Office Visit ([facility] EDUAR CABRERA ([id number]) 1950 F Date Time Provider Department 07/25/19 3:30 PM ABDULLAHI BARKER During your visit today, we recorded the following information about you: Abdullahi Barker MD 07/26/2019 9:57 AM Signed Previous notes from 03/01/2018 was imported as a reference for the current encounter. All information in this note has been verified: Data or information that hasn't changed was retained from previous note and the rest was revised or updated where relevant. [facility] PATIENT INFORMATION: Eduar Khalilsuresh REFERRING M.D.: [place] [id number] [facility] [id number] CHIEF COMPLAINT: Bilateral renal calculi, stable stones, no active symptoms, pt does not want surgery HPI Eduar Cabrera is a 68 year old year old female referred by Dr. Nereyda Villagomez for Bilateral renal calculi. HISTORY: The patient was seen with the following problems: bilateral renal calculi- pt saw Dr Villagomez and was referred to me for management I first saw pt on July 09 2015 Main complaint is recurrent UTI Incidental bilateral stones No h/o upper tract infections or pyelonephritis Pt has had cystitis and gets treated We discussed stone treatment, PCNL and ESWL/ URS Pt opted to wait and repeat imaging 6 months January 21, 2016 Pt here for a 6 month followup XRay KUB- no growth is the stone- stable appearance Pt is absolutely asymptomatic No UTIs in the last 6 months March 16 2017 Pt here for a 1 year followup No change in symptoms Possibly leaning towards surgery March 01, 2018 1 year followup No new urological symptoms Does not want any surgery / intervention July 25 2019 No active issues from the stone standpoint Does not want any surgery Wants her urine tested for infection today Current Outpatient Medications Medication Sig Dispense Refill - COQ10, UBIQUINOL, ORAL Take 50 mg by mouth once daily. - levdnzy-hemadubtc-cjct min D3 (CALCIUM 500+D) 500 mg(1,250mg) -200 unit per tablet Take 1 tablet by mouth once daily. - cholecalciferol, vitamin D3, (VITAMIN D-3) 400 unit cap Take 400 Units by mouth once daily. - potassium chloride ER (K-DUR, KLOR-CON) 20 mEq tablet Take 20 mEq by mouth once daily. - melatonin 10 mg cap Take 1 capsule by mouth once daily. - Magnesium 250 mg tab Take 250 mg by mouth once daily. - FIBER, HERBAL, ORAL Take 1 tablet by mouth once daily. - CINNAMON BARK (CINNAMON ORAL) Take 1,000 mg by mouth twice daily. - cyclobenzaprine (FLEXERIL) 10 mg tablet Take 10 mg by mouth as needed. - B INFANTIS/B ANI/B LATONYA/B BIFID (PROBIOTIC 4X ORAL) Take by mouth. - COMPOUNDED PRESCRIPTION Spirolina - ascorbic acid (VITAMIN C) 500 mg tablet Take 500 mg by mouth twice daily. - ECHINACEA, BULK, MISC In winter 3 times a week. - Garlic 1,000 mg cap Take by mouth every Wednesday,Wednesday, y. - GLUCOSAM HCL/MSM/CHONDRO FRANK A (GLUCOSAMINE [id number] ORAL) Take by mouth. 1200 mg daily - Gelatin 650 mg capsule Take 1,300 mg by mouth once daily. - Lovastatin 40 mg tablet Take 40 mg by mouth daily at bedtime. - LEVOTHYROXINE SODIUM (LEVOTHYROXINE ORAL) Take by mouth. - metFORMIN 500 mg tablet Take 500 mg by mouth three times daily. - fluticasone 50 mcg/actuation nasal spray Use 1 [place] in each nostril once daily. - olmesartan (BENICAR) 20 mg tablet Take 20 mg by mouth once daily. - MULTIVITAMIN ORAL Take by mouth. No current facility-administered medications for this visit. Allergies: Review of patient's allergies indicates: Aleve [Naproxen Sod* Other: See Comments Comment:Causes bleeding Asa [Aspirin] Other: See Comments Comment:Causes bleeding Celebrex [Celecoxib] Shortness of Breath Cephalexin Shortness of Breath Daypro [Oxaprozin] Shortness of Breath Ibuprofen Other: See Comments Comment:Bleeding in large doses Ultram [Tramadol Hc* Shortness of Breath PAST MEDICAL HISTORY Diagnosis Date - Asthma - Diabetes mellitus (HCC) - Fibromyalgia - Osteoarthritis PAST SURGICAL HISTORY Procedure Laterality Date - CATARACT SURGERY, COMPLEX [facility] FAMILY HISTORY Problem Relation Age of Onset - Heart Mother - Heart Father - Heart Paternal Grandfather - Asthma Mother - Asthma Paternal Grandmother - Asthma Brother Urological Cancer: No. Breast Cancer: No REVIEW OF SYSTEMS: GENERAL: No fever, chills, weight loss, or fatigue. CARDIOVASCULAR: NO CHEST PAIN, PALPITATIONS, ANKLE EDEMA RESPIRATORY: No chronic cough, wheezing, dyspnea, hemoptysis. GENITOURINARY: as above GI: no change in bowel habits Other systems reviewed with no changes from previous exam. PHYSICAL EXAM: VS: BP 137/79 Pulse 95 Wt 269 lb (122.0kg) GENERAL: well appearing, in no acute distress, alert ABDOMEN: Soft, nontender, nondistended, no masses. BACK: CVA tenderness Yes. No tenderness to palpation of spine or muscles . SKIN/LYMPH: No rash, lesions. INVESTIGATIONS: Creatinine (mg/dL) No results found for: CREAT Hgb.Hct levels @LASTLAB[hb, hct Urine culture 06/11/2015 <10K normal veto IMAGING: KUB 2018 IMPRESSION: Findings are suggestive of bilateral renal calculi. Traffic Police Officer: [employer] ? Transcribe Date/Time: Jul 20 2019 ?5:07P Dictated by : MD CANDICE PROCTOR December 2017 IMPRESSION: Bilateral renal stones similar to the previous study. Traffic Police Officer: [employer] ? Transcribe Date/Time: Dec ?4:57P KUB January 2017 IMPRESSION: Non- specific bowel gas pattern/ Bilateral renal calcifications without significant change Traffic Police Officer: [employer] ? Transcribe Date/Time: January ?5:59P Dictated by : RYANN VÁZQUEZ MD KUB December 2015 IMPRESSION: STABLE BILATERAL NEPHROLITHIASIS Traffic Police Officer: [facility] Transcribe Date/Time: Jan 07 2016 2:22P Dictated by : MD CANDICE TORRES March 2015 IMPRESSION: STABLE BILATERAL RENAL CALCULI Traffic Police Officer: [facility] Transcribe Date/Time: Apr 02 2015 6:57P Dictated by : FLACO GUTIERREZ MD This examination was interpreted and the report reviewed and electronically signed by: FLACO GUTIERREZ MD On Apr 02 2015 6:57PM US renal IMPRESSION: Bilateral shadowing renal calculi, as described. Traffic Police Officer: [facility] Transcribe Date/Time: Apr 02 2015 3:32P Dictated by : TREY THORNTON MD This examination was interpreted and the report reviewed and electronically signed by: TREY THORNTON MD On Apr 02 2015 3:32PM DATE OF EXAM: Jun 23 2012 2:30PM [facility] 0345 - CT UROGRAM / PROCEDURE REASON: URINARY TRACT INFECTION, SITE NOT SPECIFIED IMPRESSION: Bilateral nonobstructing lower pole renal calculi. Diverticulosis of the colon without CT findings of diverticulitis. URINALYSIS: see laboratory report No blood, small dar 07/09/2015 -------- IMPRESSION: CONDITION SPECIFIC ASSESSMENT (ICD10) Bilateral kidney stones- no significant change on imaging DISEASE SPECIFICITY Acuity: Chronic Severity: None stable over 3 years ANATOMIC SITE: Kidney, Laterality: Bilateral UNDERLYING CONDITION/ CAUSAL AGENT:: Primary ASSOCIATED CONDITIONS/ MANIFESTATIONS:: N/A PLAN: Options discussed- pt again wishes to wait on treatment PLAN: Problems again discussed with patient:Kidney stones- I reviewed images with her the stones appear stable And again discussed PCNL, ESWL and URS Pt still wishes to wait on the treatment of stones at this time- she will see me in 1 year Following investigations ordered: KUB 18 months Wants urine tested- I discussed that we will send for a UA and micro to the lab If suspicious for infections pt may need culture- I recommended getting her urine sample by a straight cath- can do this with PA/TELEPHONE APPOINTMENT CLERK at [facility]. Review in clinic: 18 months and PRN, with the above investigations. Consultation requested by Dr. Villagomez for an opinion regarding stones, and my final recommendations will be communicated back to the requesting physician by way of shared Medical record, fax or letter via [place] mail. MD Gunjan Medeiros 07/25/2019 4:09 PM Signed Assessment interrupted by medical provider, unable to complete nursing assessment. Referring Provider: ABDULLAHI BARKER [[id number]] Allergies As of Date: 07/25/2019 Noted Allergy Reaction ALEVE (NAPROXEN SODIUM) 03/15/2012 14 - Other: See Comments Comments: Causes bleeding ASA (ASPIRIN) 03/15/2012 14 - Other: See Comments Comments: Causes bleeding CELEBREX (CELECOXIB) 03/15/2012 12 - Shortness of Breath CEPHALEXIN 03/15/2012 12 - Shortness of Breath DAYPRO (OXAPROZIN) 03/15/2012 12 - Shortness of Breath IBUPROFEN 06/09/2012 14 - Other: See Comments Comments: Bleeding in large doses ULTRAM (TRAMADOL HCL) 03/15/2012 12 - Shortness of Breath Date Reviewed: 03/01/2018 Reviewed by: Gunjan Moya - Fully Assessed Reason for Visit: Establish Care [42] Primary Visit Diagnosis:Kidney stones [N20.0] Order(s):XR ABDOMEN 1V SUPINE [4869080] Order #: [id number] FUTURE URINALYSIS WITH MICROSCOPIC [SQUAWMIC] Order #: [id number] FUTURE Prescriptions as of 07/25/2019 Sig: COQ10 (UBIQUINOL) ORAL Take 50 mg by mouth once beatriz* CALCIUM CARBONATE 500 MG (1,2* Take 1 tablet by mouth once d* CHOLECALCIFEROL (VITAMIN D3) * Take 400 Units by mouth once * POTASSIUM CHLORIDE ER 20 MEQ * Take 20 mEq by mouth once serg* MELATONIN 10 MG CAPSULE Take 1 capsule by mouth once * MAGNESIUM 250 MG TABLET Take 250 mg by mouth once serg* FIBER (HERBAL) ORAL Take 1 tablet by mouth once d* CINNAMON ORAL Take 1,000 mg by mouth twice * CYCLOBENZAPRINE 10 MG TABLET Take 10 mg by mouth as needed. PROBIOTIC 4X ORAL Take by mouth. COMPOUNDED PRESCRIPTION Spirolina * ASCORBIC ACID (VITAMIN C) 500* Take 500 mg by mouth twice da* * ECHINACEA (BULK) MISC In winter 3 times a week. * GARLIC 1,000 MG CAPSULE Take by mouth every Wednesday,* * GLUCOSAMINE [id number]* Take by mouth. 1200 mg daily * GELATIN 650 MG CAPSULE Take 1,300 mg by mouth once d* * LOVASTATIN 40 MG TABLET Take 40 mg by mouth daily at * * LEVOTHYROXINE ORAL Take by mouth. * METFORMIN 500 MG TABLET Take 500 mg by mouth three ti* * FLUTICASONE PROPIONATE 50 MCG* Use 1 [place] in each nostril o* * OLMESARTAN 20 MG TABLET Take 20 mg by mouth once beatriz* * MULTIVITAMIN ORAL Take by mouth. Problem List As Of Date 07/25/2019 Noted Resolved Recurrent urinary tract infection [N39.0] INVALID FOR* Morbid obesity [E66.01] INVALID FOR* Urgency of urination [R39.15] INVALID FOR* Frequency of urination [R35.0] INVALID FOR* Dysuria [R30.0] INVALID FOR* Dehydration [E86.0] INVALID FOR* Kidney stone [N20.0] INVALID FOR* Screening for other and unspecified genitourina*INVALID FOR* Visit Notes: >> Gunjan Moya Booker Jul 25, 2019 4:09 PM Status: Signed Assessment interrupted by medical provider, unable to complete nursing assessment. Encounter Status:Closed by ABDULLAHI BARKER MD on 07/26/19 [facility] PROGRESSon 07-25-2019 PROGRESS HNO ID: [id number] Author: Abdullahi Barker Service: ? Author Type: Physician Type: Progress Notes Filed: 07/26/2019 9:57 AM Note Text: Previous notes from 03/01/2018 was imported as a reference for the current encounter. All information in this note has been verified: Data or information that hasn't changed was retained from previous note and the rest was revised or updated where relevant. [facility] PATIENT INFORMATION: Eduar COFFMAN M.D.: [place] [id number] [place] [address] CHIEF COMPLAINT: Bilateral renal calculi, stable stones, no active symptoms, pt does not want surgery HPI Eduar Cabrera is a 68 year old year old female referred by Dr. Nereyda Villagomez for Bilateral renal calculi. HISTORY: The patient was seen with the following problems: bilateral renal calculi- pt saw Dr Villagomez and was referred to me for management I first saw pt on July 09 2015 Main complaint is recurrent UTI Incidental bilateral stones No h/o upper tract infections or pyelonephritis Pt has had cystitis and gets treated We discussed stone treatment, PCNL and ESWL/ URS Pt opted to wait and repeat imaging 6 months January 21, 2016 Pt here for a 6 month followup XRay KUB- no growth is the stone- stable appearance Pt is absolutely asymptomatic No UTIs in the last 6 months March 16 2017 Pt here for a 1 year followup No change in symptoms Possibly leaning towards surgery March 01, 2018 1 year followup No new urological symptoms Does not want any surgery / intervention July 25 2019 No active issues from the stone standpoint Does not want any surgery Wants her urine tested for infection today Current Outpatient Medications Medication Sig Dispense Refill - COQ10, UBIQUINOL, ORAL Take 50 mg by mouth once daily. - drfvsva-zoxeiludj-dsnj min D3 (CALCIUM 500+D) 500 mg(1,250mg) -200 unit per tablet Take 1 tablet by mouth once daily. - cholecalciferol, vitamin D3, (VITAMIN D-3) 400 unit cap Take 400 Units by mouth once daily. - potassium chloride ER (K-DUR, KLOR-CON) 20 mEq tablet Take 20 mEq by mouth once daily. - melatonin 10 mg cap Take 1 capsule by mouth once daily. - Magnesium 250 mg tab Take 250 mg by mouth once daily. - FIBER, HERBAL, ORAL Take 1 tablet by mouth once daily. - CINNAMON BARK (CINNAMON ORAL) Take 1,000 mg by mouth twice daily. - cyclobenzaprine (FLEXERIL) 10 mg tablet Take 10 mg by mouth as needed. - B INFANTIS/B ANI/B LATONYA/B BIFID (PROBIOTIC 4X ORAL) Take by mouth. - COMPOUNDED PRESCRIPTION Spirolina - ascorbic acid (VITAMIN C) 500 mg tablet Take 500 mg by mouth twice daily. - ECHINACEA, BULK, MISC In winter 3 times a week. - Garlic 1,000 mg cap Take by mouth every Wednesday,Wednesday, y. - GLUCOSAM HCL/MSM/CHONDRO FRANK A (GLUCOSAMINE GCJ-MAA-GZCFUKJCVD ORAL) Take by mouth. 1200 mg daily - Gelatin 650 mg capsule Take 1,300 mg by mouth once daily. - Lovastatin 40 mg tablet Take 40 mg by mouth daily at bedtime. - LEVOTHYROXINE SODIUM (LEVOTHYROXINE ORAL) Take by mouth. - metFORMIN 500 mg tablet Take 500 mg by mouth three times daily. - fluticasone 50 mcg/actuation nasal spray Use 1 [place] in each nostril once daily. - olmesartan (BENICAR) 20 mg tablet Take 20 mg by mouth once daily. - MULTIVITAMIN ORAL Take by mouth. No current facility-administered medications for this visit. Allergies: Review of patient's allergies indicates: Aleve [Naproxen Sod* Other: See Comments Comment:Causes bleeding Asa [Aspirin] Other: See Comments Comment:Causes bleeding Celebrex [Celecoxib] Shortness of Breath Cephalexin Shortness of Breath Daypro [Oxaprozin] Shortness of Breath Ibuprofen Other: See Comments Comment:Bleeding in large doses Ultram [Tramadol Hc* Shortness of Breath PAST MEDICAL HISTORY Diagnosis Date - Asthma - Diabetes mellitus (HCC) - Fibromyalgia - Osteoarthritis PAST SURGICAL HISTORY Procedure Laterality Date - CATARACT SURGERY, COMPLEX [facility] FAMILY HISTORY Problem Relation Age of Onset - Heart Mother - Heart Father - Heart Paternal Grandfather - Asthma Mother - Asthma Paternal Grandmother - Asthma Brother Urological Cancer: No. Breast Cancer: No REVIEW OF SYSTEMS: GENERAL: No fever, chills, weight loss, or fatigue. CARDIOVASCULAR: NO CHEST PAIN, PALPITATIONS, ANKLE EDEMA RESPIRATORY: No chronic cough, wheezing, dyspnea, hemoptysis. GENITOURINARY: as above GI: no change in bowel habits Other systems reviewed with no changes from previous exam. PHYSICAL EXAM: VS: BP 137/79 Pulse 95 Wt 269 lb (122.0kg) GENERAL: well appearing, in no acute distress, alert ABDOMEN: Soft, nontender, nondistended, no masses. BACK: CVA tenderness Yes. No tenderness to palpation of spine or muscles . SKIN/LYMPH: No rash, lesions. INVESTIGATIONS: Creatinine (mg/dL) No results found for: CREAT Hgb.Hct levels @LASTLAB[hb, hct Urine culture 06/11/2015 <10K normal veto IMAGING: KUB 2018 IMPRESSION: Findings are suggestive of bilateral renal calculi. Traffic Police Officer: MAXIMUS ? Transcribe Date/Time: Jul 20 2019 ?5:07P Dictated by : JB MORATAYA MD KUB December 2017 IMPRESSION: Bilateral renal stones similar to the previous study. Traffic Police Officer: MAXIMUS ? Transcribe Date/Time: Dec ?4:57P KUB January 2017 IMPRESSION: Non- specific bowel gas pattern/ Bilateral renal calcifications without significant change Traffic Police Officer: MAXIMUS ? Transcribe Date/Time: January ?5:59P Dictated by : RYANN VÁZQUEZ MD KUB December 2015 IMPRESSION: STABLE BILATERAL NEPHROLITHIASIS Traffic Police Officer: ANDREW Transcribe Date/Time: Jan 07 2016 2:22P Dictated by : FLACO GUTIERREZ MD KUB March 2015 IMPRESSION: STABLE BILATERAL RENAL CALCULI Traffic Police Officer: ANDREW Transcribe Date/Time: Apr 02 2015 6:57P Dictated by : FLACO GUTIERREZ MD This examination was interpreted and the report reviewed and electronically signed by: FLACO GUTIERREZ MD On Apr 02 2015 6:57PM US renal IMPRESSION: Bilateral shadowing renal calculi, as described. Traffic Police Officer: ANDREW Transcribe Date/Time: Apr 02 2015 3:32P Dictated by : TREY THORNTON MD This examination was interpreted and the report reviewed and electronically signed by: TREY THORNTON MD On Apr 02 2015 3:32PM DATE OF EXAM: Jun 23 2012 2:30PM [facility] [id number] - CT UROGRAM / PROCEDURE REASON: URINARY TRACT INFECTION, SITE NOT SPECIFIED IMPRESSION: Bilateral nonobstructing lower pole renal calculi. Diverticulosis of the colon without CT findings of diverticulitis. URINALYSIS: see laboratory report No blood, small dar 07/09/2015 -------- IMPRESSION: CONDITION SPECIFIC ASSESSMENT (ICD10) Bilateral kidney stones- no significant change on imaging DISEASE SPECIFICITY Acuity: Chronic Severity: None stable over 3 years ANATOMIC SITE: Kidney, Laterality: Bilateral UNDERLYING CONDITION/ CAUSAL AGENT:: Primary ASSOCIATED CONDITIONS/ MANIFESTATIONS:: N/A PLAN: Options discussed- pt again wishes to wait on treatment PLAN: Problems again discussed with patient:Kidney stones- I reviewed images with her the stones appear stable And again discussed PCNL, ESWL and URS Pt still wishes to wait on the treatment of stones at this time- she will see me in 1 year Following investigations ordered: KUB 18 months Wants urine tested- I discussed that we will send for a UA and micro to the lab If suspicious for infections pt may need culture- I recommended getting her urine sample by a straight cath- can do this with PA/TELEPHONE APPOINTMENT CLERK at [facility]. Review in clinic: 18 months and PRN, with the above investigations. Consultation requested by Dr. Villagomez for an opinion regarding stones, and my final recommendations will be communicated back to the requesting physician by way of shared Medical record, fax or letter via [place] mail. Abdullahi Barker MD [facility] No Panel Information SARS-CoV-2 & FLU Antigen (Rapid) [facility] Work Phone: Vital Signs Date Time Vital Sign Value Performing Clinician Facility 02-15-2025 15:57-0400 Body height 157.[address] Corby Heller MD Work Phone: [facility] 01-26-2025 14:39-0400 Diastolic blood pressure 81 mm[Hg] Dr. Corby Heller MD Work Phone: [facility] 01-26-2025 14:39-0400 Heart rate 75 /min Dr. Corby Heller MD Work Phone: [facility] 01-26-2025 14:39-0400 Respiratory rate 18 /min Dr. Corby Heller MD Work Phone: 9(051)864-611552 [place] [address] 01-26-2025 14:39-0400 SaO2% (BldA) [Mass fraction] 96 % Dr. Corby Heller MD Work Phone: 5(461)021-847777 [place] [address] 01-26-2025 14:39-0400 Systolic blood pressure 138 mm[Hg] Dr. Corby Heller MD Work Phone: 3(507)847-453577 [place] [address] 01-18-2025 14:52-0400 Diastolic blood pressure 58 mm[Hg] Dr. Corby Heller MD Work Phone: 2(051)051-909777 [place] [address] 01-18-2025 14:52-0400 Heart rate 88 /min Dr. Corby Heller MD Work Phone: 3(482)905-214277 [place] [address] 01-18-2025 14:52-0400 Respiratory rate 18 /min Dr. Corby Heller MD Work Phone: 4(995)979-542677 [place] [address] 01-18-2025 14:52-0400 SaO2% (BldA) [Mass fraction] 92 % Dr. Corby Heller MD Work Phone: 6(747)588-586677 [place] [address] 01-18-2025 14:52-0400 Systolic blood pressure 110 mm[Hg] Dr. Corby Heller MD Work Phone: 7(062)772-193877 [place] [address] 01-01-2025 14:48-0400 Body height 157.[address] Corby Heller MD Work Phone: 5(527)957-276477 [place] [address] 01-01-2025 14:48-0400 Body temperature 97.7 [degF] Dr. Corby Heller MD Work Phone: 8(464)210-406477 [place] [address] 01-01-2025 14:48-0400 Diastolic blood pressure 84 mm[Hg] Dr. Corby Heller MD Work Phone: 6(872)568-319577 [place] [address] 01-01-2025 14:48-0400 Heart rate 83 /min Dr. Corby Heller MD Work Phone: 7(123)844-329677 [place] [address] 01-01-2025 14:48-0400 Respiratory rate 22 /min Dr. Corby Heller MD Work Phone: 7(000)434-220752 [place] [address] 01-01-2025 14:48-0400 SaO2% (BldA) [Mass fraction] 99 % Dr. Corby Heller MD Work Phone: 9(111)405-317752 [place] [address] 01-01-2025 14:48-0400 Systolic blood pressure 133 mm[Hg] Dr. Corby Heller MD Work Phone: 4(880)074-576552 [place] [address] 12-28-2024 15:07-0400 Body height 157.[address] Corby Heller MD Work Phone: 4(313)919-987577 [place] [address] 12-28-2024 15:07-0400 Body temperature 97.3 [degF] Dr. Corby Heller MD Work Phone: 7(597)936-139377 [place] [address] 12-28-2024 15:07-0400 Diastolic blood pressure 74 mm[Hg] Dr. Corby Heller MD Work Phone: 7(127)307-972177 [place] [address] 12-28-2024 15:07-0400 Heart rate 81 /min Dr. Corby Heller MD Work Phone: 2(548)982-214952 [place] [address] 12-28-2024 15:07-0400 Respiratory rate 18 /min Dr. Corby Heller MD Work Phone: 6(488)617-286077 [place] [address] 12-28-2024 15:07-0400 SaO2% (BldA) [Mass fraction] 95 % Dr. Corby Heller MD Work Phone: 1(376)940-161952 [place] [address] 12-28-2024 15:07-0400 Systolic blood pressure 136 mm[Hg] Dr. Corby Heller MD Work Phone: 5(245)249-533477 [place] [address] 12-27-2024 10:25-0400 Body height 157.[address] Corby Heller MD Work Phone: 9(812)490-040152 [place] [address] 12-27-2024 10:25-0400 Body mass index (BMI) [Ratio] 47.2 kg/m2 Dr. Corby Heller MD Work Phone: 7(231)737-258477 [place] [address] 12-27-2024 10:25-0400 Body temperature 96.8 [degF] Dr. Corby Heller MD Work Phone: [facility] 12-27-2024 10:25-0400 Body weight 117.[address] Corby Heller MD Work Phone: [facility] 12-27-2024 10:25-0400 Diastolic blood pressure 75 mm[Hg] Dr. Corby Heller MD Work Phone: 0(942)739-903452 [place] [address] 12-27-2024 10:25-0400 Heart rate 79 /min Dr. Corby Heller MD Work Phone: 7(247)469-999752 [place] [address] 12-27-2024 10:25-0400 Respiratory rate 16 /min Dr. Corby Heller MD Work Phone: 2(798)575-996752 [place] [address] 12-27-2024 10:25-0400 SaO2% (BldA) [Mass fraction] 98 % Dr. Corby Heller MD Work Phone: [facility] 12-27-2024 10:25-0400 Systolic blood pressure 144 mm[Hg] Dr. Corby Heller MD Work Phone: 9(749)538-712752 [place] [address] 12-26-2024 12:37-0400 Body height 157.[address] Corby Heller MD Work Phone: [facility] 12-26-2024 12:37-0400 Diastolic blood pressure 72 mm[Hg] Dr. Corby Heller MD Work Phone: 2(941)614-508152 [place] [address] 12-26-2024 12:37-0400 Heart rate 75 /min Dr. Corby Heller MD Work Phone: [facility] 12-26-2024 12:37-0400 Respiratory rate 18 /min Dr. Corby Heller MD Work Phone: [facility] 12-26-2024 12:37-0400 Systolic blood pressure 144 mm[Hg] Dr. Corby Heller MD Work Phone: [facility] 12-25-2024 11:55-0400 Body height 157.[address] Corby Heller MD Work Phone: 6(652)049-233252 [place] [address] 12-25-2024 11:55-0400 Body mass index (BMI) [Ratio] 47.2 kg/m2 Dr. Corby Heller MD Work Phone: 5(395)179-814752 [place] [address] 12-25-2024 11:55-0400 Body temperature 96.4 [degF] Dr. Corby Heller MD Work Phone: 2(399)846-101452 [place] [address] 12-25-2024 11:55-0400 Body weight 117.[address] Corby Heller MD Work Phone: 7(235)605-957377 [place] [address] 12-25-2024 11:55-0400 Diastolic blood pressure 71 mm[Hg] Dr. Corby Heller MD Work Phone: 6(236)019-924377 [place] [address] 12-25-2024 11:55-0400 Heart rate 77 /min Dr. Corby Heller MD Work Phone: 1(910)403-826977 [place] [address] 12-25-2024 11:55-0400 Respiratory rate 16 /min Dr. Corby Heller MD Work Phone: 2(373)175-743177 [place] [address] 12-25-2024 11:55-0400 SaO2% (BldA) [Mass fraction] 97 % Dr. Corby Heller MD Work Phone: 5(754)779-515552 [place] [address] 12-25-2024 11:55-0400 Systolic blood pressure 140 mm[Hg] Dr. Corby Heller MD Work Phone: 7(800)510-990952 [place] [address] 12-24-2024 15:18-0400 Body temperature 97.5 [degF] Dr. Corby Heller MD Work Phone: 4(162)494-718652 [place] [address] 12-24-2024 15:18-0400 Diastolic blood pressure 69 mm[Hg] Dr. Corby Heller MD Work Phone: 2(496)693-200252 [place] [address] 12-24-2024 15:18-0400 Heart rate 75 /min Dr. Corby Heller MD Work Phone: 7(821)664-060452 [place] [address] 12-24-2024 15:18-0400 Respiratory rate 18 /min Dr. Corby Heller MD Work Phone: [facility] 12-24-2024 15:18-0400 SaO2% (BldA) [Mass fraction] 99 % Dr. Corby Heller MD Work Phone: [facility] 12-24-2024 15:18-0400 Systolic blood pressure 140 mm[Hg] Dr. Corby Heller MD Work Phone: 1(942)271-691977 [place] [address] 12-23-2024 13:38-0400 Body temperature 98.2 [degF] Dr. Corby Heller MD Work Phone: 8(673)194-841877 [place] [address] 12-23-2024 13:38-0400 Diastolic blood pressure 87 mm[Hg] Dr. Corby Heller MD Work Phone: 0(530)236-890077 [place] [address] 12-23-2024 13:38-0400 Heart rate 77 /min Dr. Corby Heller MD Work Phone: 3(939)293-904377 [place] [address] 12-23-2024 13:38-0400 Respiratory rate 18 /min Dr. Corby Heller MD Work Phone: 4(886)633-944777 [place] [address] 12-23-2024 13:38-0400 SaO2% (BldA) [Mass fraction] 98 % Dr. Corby Heller MD Work Phone: 2(849)885-961377 [place] [address] 12-23-2024 13:38-0400 Systolic blood pressure 124 mm[Hg] Dr. Corby Heller MD Work Phone: 0(277)551-663277 [place] [address] 12-23-2024 12:15-0400 Body height 157.[address] Corby Heller MD Work Phone: 1(828)754-287577 [place] [address] 12-23-2024 12:15-0400 Body mass index (BMI) [Ratio] 47.3 kg/m2 Dr. Corby Heller MD Work Phone: 5(202)141-243352 [place] [address] 12-23-2024 12:15-0400 Body weight 117.[address] Corby Heller MD Work Phone: 8(938)528-155452 [place] [address] 12-22-2024 12:34-0400 Body height 157.[address] Corby Heller MD Work Phone: [facility] 12-22-2024 12:34-0400 Body mass index (BMI) [Ratio] 47.3 kg/m2 Dr. Corby Heller MD Work Phone: [facility] 12-22-2024 12:34-0400 Body temperature 96.8 [degF] Dr. Corby Heller MD Work Phone: [facility] 12-22-2024 12:34-0400 Body weight 117.[address] Corby Heller MD Work Phone: [facility] 12-22-2024 12:34-0400 Diastolic blood pressure 69 mm[Hg] Dr. Corby Heller MD Work Phone: [facility] 12-22-2024 12:34-0400 Heart rate 70 /min Dr. Corby Heller MD Work Phone: 3(955)332-988552 [place] [address] 12-22-2024 12:34-0400 Respiratory rate 16 /min Dr. Corby Heller MD Work Phone: [facility] 12-22-2024 12:34-0400 SaO2% (BldA) [Mass fraction] 97 % Dr. Corby Heller MD Work Phone: [facility] 12-22-2024 12:34-0400 Systolic blood pressure 140 mm[Hg] Dr. Corby Heller MD Work Phone: [facility] 01-27-2024 14:11-0400 Body temperature 97.8 [degF] [facility] 01-27-2024 14:11-0400 Diastolic blood pressure 83 mm[Hg] [facility] 01-27-2024 14:11-0400 Heart rate 75 /min [facility] 01-27-2024 14:11-0400 Respiratory rate 16 /min [facility] 01-27-2024 14:11-0400 SaO2% (BldA) [Mass fraction] 94 % [facility] 01-27-2024 14:11-0400 Systolic blood pressure 156 mm[Hg] [facility] 01-27-2024 14:00-0400 Inhaled oxygen flow rate 2 L/min [facility] 01-27-2024 09:52-0400 Body height 157.48 cm [facility] 01-27-2024 09:52-0400 Body mass index (BMI) [Ratio] 45.6 kg/m2 [facility] 01-27-2024 09:52-0400 Body weight 113 kg [facility] 11-25-2023 14:37-0500 Body temperature 97.2 [degF] [facility] 11-25-2023 14:37-0500 Diastolic blood pressure 45 mm[Hg] [facility] 11-25-2023 14:37-0500 Heart rate 76 /min [facility] 11-25-2023 14:37-0500 Respiratory rate 16 /min [facility] 11-25-2023 14:37-0500 SaO2% (BldA) [Mass fraction] 94 % [facility] 11-25-2023 14:37-0500 Systolic blood pressure 111 mm[Hg] [facility] 11-25-2023 11:06-0500 Body height 157.48 cm [facility] 11-25-2023 11:06-0500 Body mass index (BMI) [Ratio] 45.8 kg/m2 [facility] 11-25-2023 11:06-0500 Body weight 113.57 kg [facility] 11-11-2023 14:55-0500 Diastolic blood pressure 51 mm[Hg] [facility] 11-11-2023 14:55-0500 Heart rate 78 /min [facility] 11-11-2023 14:55-0500 Respiratory rate 18 /min [facility] 11-11-2023 14:55-0500 SaO2% (BldA) [Mass fraction] 97 % [facility] 11-11-2023 14:55-0500 Systolic blood pressure 129 mm[Hg] [facility] 11-11-2023 13:40-0500 Body temperature 97.5 [degF] [facility] 11-11-2023 13:35-0500 Inhaled oxygen flow rate 3 L/min [facility] 11-11-2023 11:47-0500 Body height 157.48 cm [facility] 11-11-2023 11:47-0500 Body mass index (BMI) [Ratio] 46.5 kg/m2 [facility] 11-11-2023 11:47-0500 Body weight 115.3 kg [facility] 08-05-2023 10:45-0500 Body temperature 97 [degF] Dr. Corby Heller Work Phone: 7(105)701-829252 [place] [address] 08-05-2023 10:45-0500 Diastolic blood pressure 94 mm[Hg] Dr. Corby Heller Work Phone: 1(266)062-015052 [place] [address] 08-05-2023 10:45-0500 Heart rate 89 /min Dr. Corby Heller Work Phone: 4(347)564-242252 [place] [address] 08-05-2023 10:45-0500 Respiratory rate 16 /min Dr. Corby Heller Work Phone: 4(844)139-388452 [place] [address] 08-05-2023 10:45-0500 SaO2% (BldA) [Mass fraction] 97 % Dr. Corby Heller Work Phone: [phone])[phone] [place] [address] 08-05-2023 10:45-0500 Systolic blood pressure 111 mm[Hg] Dr. Corby Heller Work Phone: 6(908)432-291752 [place] [address] 08-05-2023 10:30-0500 Inhaled oxygen flow rate 1 L/min Dr. Corby Heller Work Phone: [facility] 08-05-2023 07:56-0500 Body height 157.[address] Corby Heller Work Phone: [facility] 08-05-2023 07:56-0500 Body mass index (BMI) [Ratio] 47.6 kg/m2 Dr. Corby Heller Work Phone: [facility] 08-05-2023 07:56-0500 Body weight 118.[address] Corby Heller Work Phone: [facility] 07-15-2023 11:03-0400 Body temperature 97.9 [degF] Dr. Corby Heller Work Phone: [facility] 07-15-2023 11:03-0400 Diastolic blood pressure 78 mm[Hg] Dr. Corby Heller Work Phone: 2(652)175-326852 [place] [address] 07-15-2023 11:03-0400 Heart rate 83 /min Dr. Corby Heller Work Phone: 3(663)329-811452 [place] [address] 07-15-2023 11:03-0400 Respiratory rate 18 /min Dr. Corby Heller Work Phone: 0(612)132-865952 [place] [address] 07-15-2023 11:03-0400 SaO2% (BldA) [Mass fraction] 93 % Dr. Corby Heller Work Phone: 7(613)082-342952 [place] [address] 07-15-2023 11:03-0400 Systolic blood pressure 117 mm[Hg] Dr. Corby Heller Work Phone: 0(816)348-024877 [place] [address] 07-13-2023 12:57-0400 Body mass index (BMI) [Ratio] 47.4 kg/m2 Dr. Corby Heller Work Phone: 1(739)368-841877 [place] [address] 07-13-2023 12:57-0400 Body weight 117.[address] Corby Heller Work Phone: 6(967)437-843077 [place] [address] 07-07-2023 07:39-0400 Body height 157.[address] Corby Heller Work Phone: 1(878)394-075277 [place] [address] 06-30-2023 10:58-0400 Body temperature 97.6 [degF] Dr. Corby Heller Work Phone: 9(688)953-182252 [place] [address] 06-30-2023 10:58-0400 Diastolic blood pressure 72 mm[Hg] Dr. Corby Heller Work Phone: 1(096)636-306252 [place] [address] 06-30-2023 10:58-0400 Heart rate 79 /min Dr. Corby Heller Work Phone: 7(569)967-633752 [place] [address] 06-30-2023 10:58-0400 Respiratory rate 18 /min Dr. Corby Heller Work Phone: 6(846)349-179652 [place] [address] 06-30-2023 10:58-0400 SaO2% (BldA) [Mass fraction] 93 % Dr. Corby Heller Work Phone: [facility] 06-30-2023 10:58-0400 Systolic blood pressure 123 mm[Hg] Dr. Corby Heller Work Phone: [facility] 06-30-2023 09:10-0400 Inhaled oxygen flow rate 3 L/min Dr. Corby Heller Work Phone: [facility] 06-29-2023 06:00-0400 Body mass index (BMI) [Ratio] 57.6 kg/m2 Dr. Corby Heller Work Phone: [facility] 06-29-2023 06:00-0400 Body weight [address] Corby Heller Work Phone: [facility] 06-26-2023 03:00-0400 Inhaled oxygen concentration 35 % Dr. Corby Heller Work Phone: [facility] 08-04-2022 11:18-0500 Diastolic blood pressure 57 mm[Hg] Grisel Villanueva DO Work Phone: [facility] 08-04-2022 11:18-0500 Heart rate 109 /min Grisel Villanueva DO Work Phone: [facility] 08-04-2022 11:18-0500 SaO2% (BldA) [Mass fraction] 96 % Grisel Villanueva DO Work Phone: [facility] 08-04-2022 11:18-0500 Systolic blood pressure 131 mm[Hg] Grisel Villanueva DO Work Phone: [facility] 07-12-2022 16:20-0400 Diastolic blood pressure 84 mm[Hg] [facility] Work Phone: 07-12-2022 16:20-0400 Heart rate 102 /min [facility] Work Phone: 07-12-2022 16:20-0400 Respiratory rate 22 /min [facility] Work Phone: 07-12-2022 16:20-0400 SaO2% (BldA) [Mass fraction] 95 % [facility] Work Phone: 07-12-2022 16:20-0400 Systolic blood pressure 137 mm[Hg] [facility] Work Phone: 07-12-2022 14:24-0400 Body height 157.48 cm [facility] Work Phone: 07-12-2022 14:24-0400 Body mass index (BMI) [Ratio] 48.3 kg/m2 [facility] Work Phone: 07-12-2022 14:24-0400 Body temperature 98.4 [degF] [facility] Work Phone: 07-12-2022 14:24-0400 Body weight 119.8 kg [facility] Work Phone: Encounters Encounter Date Encounter Type Care Provider Facility Start: 05-03-2025 ambulatory Bella Prieto Facility: [facility] Start: 02-15-2025 End: 02-15-[address] Corby Heller MD Work Phone: [facility] Work Phone: Start: 02-15-2025 End: 02-15-[address] Corby Heller MD -Outpatient Bone Densitometry Work Phone: Start: 02-15-2025 End: 02-15-2025 ambulatory Corby Heller Facility:[facility] Start: 01-30-2025 End: 01-30-[address] Corby Heller MD Work Phone: [facility] Work Phone: Start: 01-30-2025 End: 01-30-[address] Bella Prieto DO -Laboratory Work Phone: Start: 01-30-2025 End: 01-30-2025 ambulatory Bella Prieto Facility:[facility] Start: 01-26-2025 End: 01-26-[address] Rob Weinberg MD -[facility] Work Phone: Start: 01-26-2025 End: 01-26-2025 ambulatory [facility] Facility:[facility] Start: 01-18-2025 End: 01-18-[address] Rob Weinberg MD -Laboratory, Specimen Work Phone: Start: 01-18-2025 End: 01-18-2025 ambulatory [facility] Facility:[facility] Start: 01-18-2025 End: 01-18-[address] Rob Weinberg MD -[facility] Work Phone: Start: 01-18-2025 End: 01-18-2025 ambulatory [facility] Facility:[facility] Start: 01-01-2025 End: 01-01-2025 Emergency department patient visit Dr. Evans Blankenship DO -Emergency Department Work Phone: Start: 01-01-2025 ambulatory [facility] Facility:[facility] Start: 12-28-2024 End: 12-28-[address] Rob Krishnamurthy MD -Medical Out Work Phone: Start: 12-28-2024 End: 12-28-[address] Corby Heller MD Work Phone: [facility] Work Phone: Start: 12-27-2024 End: 12-27-[address] Rob Krishnamurthy MD -Medical Out Work Phone: Start: 12-27-2024 End: 12-27-[address] Corby Heller MD Work Phone: [facility] Work Phone: Start: 12-26-2024 End: 12-26-[address] Rob Krishnamurthy MD -Medical Out Work Phone: Start: 12-26-2024 End: 12-26-[address] Corby Heller MD Work Phone: [facility] Work Phone: Start: 12-25-2024 End: 12-25-[address] Rob Krishnamurthy MD -Medical Out Work Phone: Start: 12-25-2024 End: 12-25-[address] Corby Heller MD Work Phone: [facility] Work Phone: Start: 12-24-2024 End: 12-24-[address] Rob Krishnamurthy MD -Medical Out Work Phone: Start: 12-24-2024 End: 12-24-[address] Corby Heller MD Work Phone: [facility] Work Phone: Start: 12-23-2024 End: 12-23-2024 Emergency department patient visit Dr. Corby Heller MD Work Phone: -Emergency Department Work Phone: Start: 12-23-2024 ambulatory Corby Franck Heller Facility:[facility] Start: 12-22-2024 End: 12-22-[address] Rob Krishnamurthy MD -Medical Out Work Phone: Start: 12-22-2024 End: 12-22-[address] Corby Heller MD Work Phone: [facility] Work Phone: Start: 12-18-2024 End: 12-18-[address] Corby Heller MD Work Phone: [facility] Work Phone: Start: 12-18-2024 End: 12-18-[address] Corby Heller MD -Radiology, [facility] Work Phone: Start: 12-18-2024 End: 12-18-2024 ambulatory Corby Franck Heller Facility:[facility] Start: 11-23-2024 End: 02-27-[address] Corby Heller MD Work Phone: [facility] Work Phone: Start: 11-23-2024 End: 11-23-[address] Corby Heller MD -Laboratory, [facility] Office 3rd [facility] Start: 11-23-2024 End: 11-23-2024 ambulatory [facility] Facility:[facility] Start: 09-11-2024 End: 09-11-[address] Marie Caldera MD -Radiology, [place] Work Phone: Start: 09-11-2024 End: 09-11-2024 ambulatory Corby [facility] Facility:[facility] Start: 08-25-2024 End: 08-25-[address] Marie Caldera MD -Cat Scan, [facility] Work Phone: Start: 08-25-2024 End: 08-25-2024 ambulatory Corby [facility] Facility:[facility] Start: 08-18-2024 End: 08-18-2024 Patient encounter procedure Shana SINGH -[facility] Work Phone: Start: 08-18-2024 End: 08-18-2024 ambulatory Corby [facility] Facility:[facility] Start: 08-11-2024 End: 08-11-2024 Patient encounter procedure Shana SINGH -[facility] Work Phone: Start: 08-11-2024 End: 08-11-2024 ambulatory Corby [facility] Facility:[facility] Start: 08-04-2024 End: 08-04-2024 ambulatory Corby [facility] Facility:[facility] Start: 07-12-2024 End: 07-12-2024 ambulatory Corby [facility] Facility:[facility] Start: 06-28-2024 End: 06-28-2024 ambulatory Corby [facility] Facility:[facility] Start: 06-22-2024 End: 06-22-2024 ambulatory Marie Caldera Facility:[facility] Start: 06-19-2024 End: 06-19-2024 ambulatory Shana Hancock Facility:[facility] Start: 06-08-2024 ambulatory Ryann Murrieta Facility: [facility] Start: 06-01-2024 End: 06-01-2024 ambulatory Marie Caldera Facility:[facility] Start: 05-24-2024 End: 05-24-2024 ambulatory Corby Heller Facility:[facility] Start: 01-27-2024 End: 01-27-2024 Admission to same day surgery center [facility]-Surgical Day Care Start: 01-27-2024 End: 01-27-2024 ambulatory [facility] Work Phone: Start: 01-24-2024 End: 01-24-2024 ambulatory [facility] Work Phone: Start: 01-24-2024 End: 01-24-2024 Patient encounter procedure [facility]-Laboratory, [place] Work Phone: Start: 01-17-2024 End: 01-17-2024 ambulatory [facility] Work Phone: Start: 01-17-2024 End: 01-17-2024 Patient encounter procedure [facility]-Radiology, [place] Work Phone: Start: 12-16-2023 End: 12-16-2023 ambulatory [facility] Work Phone: Start: 12-16-2023 End: 12-16-2023 Patient encounter procedure [facility]-Cat Scan, [facility] Work Phone: Start: 11-25-2023 End: 11-25-2023 Admission to same day surgery center [facility] Start: 11-25-2023 End: 11-25-2023 ambulatory [facility] Work Phone: Start: 11-11-2023 End: 11-11-2023 Admission to same day surgery [facility] Start: 11-11-2023 End: 11-11-2023 ambulatory [facility] Work Phone: Start: 10-29-2023 End: 10-29-2023 ambulatory [facility] Work Phone: Start: 10-29-2023 End: 10-29-2023 Patient encounter procedure [facility]-Pre-Admission Testing Work Phone: Start: 10-27-2023 End: 10-27-2023 [facility] Start: 08-05-2023 End: 08-05-2023 Admission to same day surgery center Dr. Corby Heller Work Phone: [facility] Start: 08-05-2023 End: 08-05-[address] Corby Heller Work Phone: [facility] Work Phone: Start: 07-27-2023 End: 07-27-[address] Corby Heller Work Phone: [facility] Work Phone: Start: 07-27-2023 End: 07-27-[address] [facility] Work [facility] Start: 07-21-2023 End: 07-21-[address] Corby Heller Work Phone: [facility] Work Phone: Start: 07-21-2023 End: 07-21-[address] [facility] Start: 06-30-2023 End: 07-15-2023 Evaluation and management of inpatient Dr. Corby Heller Work Phone: [facility]-Transitional Care Unit Start: 06-30-2023 Non-patient / Non-visit Dr. Ryder Heller Work Phone: [facility] Work Phone: Start: 06-29-2023 Non-patient / Non-visit Dr. Ryder Heller Work Phone: [facility] Work Phone: Start: 06-28-2023 Non-patient / Non-visit Dr. Ryder Heller Work Phone: [facility] Work Phone: Start: 06-27-2023 Non-patient / Non-visit Dr. Ryder Heller Work Phone: [facility] Work Phone: Start: 06-27-2023 Non-patient / Non-visit Dr. Ryder Heller Work Phone: [facility] Start: 06-26-2023 Non-patient / Non-visit Dr. Ryder Heller Work Phone: [facility] Start: 06-26-2023 Non-patient / Non-visit Dr. Ryder Heller Work Phone: [facility] Start: 06-26-2023 Non-patient / Non-visit Dr. Ryder Heller Work Phone: [facility] Work Phone: Start: 06-25-2023 Non-patient / Non-visit Dr. Ryder Heller Work Phone: [facility] Work Phone: Start: 06-25-2023 End: 06-30-2023 Evaluation and management of inpatient Dr. Corby Heller Work Phone: [facility]-Progressive Care Unit Work Phone: Start: 05-04-2023 End: 05-04-2023 ambulatory [facility] Work Phone: Start: 05-04-2023 End: 05-04-2023 Patient encounter procedure [facility]-Laboratory, Phy Office 3rd Flr Start: 04-21-2023 End: 04-21-2023 ambulatory [facility] Work Phone: Start: 04-21-2023 End: 04-21-2023 Patient encounter procedure [facility]-Laboratory, Phy Office 3rd Flr Start: 03-18-2023 End: 03-18-2023 ambulatory [facility] Work Phone: Start: 03-18-2023 End: 03-18-2023 Patient encounter procedure [facility], [facility] Start: 01-21-2023 End: 01-21-2023 ambulatory [facility] Work Phone: Start: 01-21-2023 End: 01-21-2023 [facility] Start: 12-17-2022 End: 12-17-2022 ambulatory [facility] Work Phone: Start: 12-17-2022 End: 12-17-2022 [facility] Start: 08-06-2022 Non-patient / Non-visit Dr. Ryder Heller Work Phone: [facility] Start: 08-06-2022 End: 08-06-[address] Corby Heller Work Phone: [facility] Work Phone: Start: 08-06-2022 End: 08-06-[address] Corby Helelr Work Phone: [facility]-Cardiovascular Services Start: 08-04-2022 End: 08-04-2022 ambulatory CORBY HELLER Facility:[facility] Start: 08-04-2022 End: 08-04-2022 Patient encounter procedure Grisel Villanueva DO Work Phone: Vascular Surgery Comment on above: Venous (peripheral) insufficiency (Primary Dx) Start: 07-27-2022 End: 07-27-2022 ambulatory [facility] Work Phone: Start: 07-27-2022 End: 07-27-2022 Patient encounter procedure [facility] Start: 07-12-2022 End: 07-12-2022 Emergency department patient visit [facility]-Emergency Department Start: 04-07-2022 End: 04-07-2022 Patient encounter procedure [facility]-Laboratory, Phy Office 3rd Flr Start: 03-11-2022 End: 03-11-2022 Patient encounter procedure [facility]-Radiology, [facility] Start: 02-26-2022 End: 02-26-2022 Patient encounter procedure [facility]-Outpatient Breast Imaging Start: 02-17-2022 End: 02-17-2022 Patient encounter procedure [facility]-Radiology, [place] Start: 01-27-2022 End: 01-27-2022 Patient encounter procedure [facility]-Laboratory, Specimen Start: 01-20-2022 End: 01-20-2022 Patient encounter procedure [facility]-Laboratory, Phy Office 3rd Flr Start: 10-21-2021 End: 10-21-2021 Patient encounter procedure [facility]-Laboratory, Phy Office 3rd Flr Procedures Date Procedure Procedure Detail Performing Clinician Start: 02-15-2025 Dual energy X-ray absorptiometry Dr. Corby Heller MD Work Phone: Start: 02-15-2025 Screening mammography Tip Heller MD Work Phone: Start: 01-30-2025 Urine microalbumin/creatinine ratio measurement Dr. Corby Heller MD Work Phone: Start: 01-30-2025 Serum inorganic phos phate measurement Dr. Corby Heller MD Work Phone: Start: 01-30-2025 Vitamin D, 25-hydrox y measurement Dr. Corby Heller MD Work Phone: Comment on above: Vitamin D StatusDefi ciency: <20 ng/mL (50nmol/L)Insufficiency: 20-30 ng/mL (50-75 nmol/L)Sufficiency: 30-100 ng/mL (75-250 nmol/L)Toxicity: >100 ng/mL (>250 nmol/L) Start: 01-01-2025 Plain x-ray of wrist Dr Aram Heller MD Work Phone: Start: 01-01-2025 X-ray of knee, one o r two views Dr. Corby Heller MD Work Phone: Start: 12-18-2024 X-ray of chest, PA a nd lateral views Dr. Corby Heller MD Work Phone: Start: 12-18-2024 SARS-CoV-2, Influenz a & RSV (PCR) Dr. Corby Heller MD Work Phone: Start: 12-18-[address] Corby bland MD Work Phone: Start: 11-23-[address] Corby bland MD Work Phone: Start: 09-11-2024 Plain X-ray abdomen Dr. Corby Heller MD Work Phone: Start: 08-25-2024 CT of abdomen and pe lvis without contrast Dr. Corby Heller MD Work Phone: Start: 01-27-2024 Cystoscopy and retro grade pyelography Start: 01-27-2024 Fluoroscopic guidance Start: 01-17-2024 Diagnostic radiograp hy of abdomen Start: 12-16-2023 CT of abdomen and pe lvis without contrast Start: 11-25-2023 Extracorporeal shock wave lithotripsy Start: 11-11-2023 Extracorporeal shock wave lithotripsy Start: 10-27-2023 Urine culture Start: 08-05-2023 Extracorporeal shock wave lithotripsy Dr. Corby Heller Work Phone: Start: 08-04-2023 Plain chest X-ray Dr. Juan Heller Work Phone: Start: 07-27-20[address] e detection Dr. Corby Heller Work Phone: Start: 07-09-[address] Corby bland Work Phone: Start: 06-27-2023 Investigation of transfusion reaction Dr. Corby Heller Work Phone: Start: 06-27-2023 Respiratory micro[address] l culture Dr. Corby Heller Work Phone: Start: 06-26-20[address] e detection Dr. Corby Heller Work Phone: Start: 06-26-2023 Radiographic procedu re of chest Dr. Corby Heller Work Phone: Start: 06-25-2023 Plain chest X-ray Dr. Juan Heller Work Phone: Start: 06-25-2023 Introduction to urin donis tract Dr. Corby Heller Work Phone: Start: 06-25-2023 Fluoroscopic guidance Tip Heller Work Phone: Start: 06-25-2023 CT of abdomen and pe lvis without contrast Dr. Corby Heller Work Phone: Start: 06-25-2023 Plain chest X-ray Dr. Juan Heller Work Phone: Start: 06-25-2023 Bacteria Detection (PCR) Dr. Cobry Heller Work Phone: Start: 06-25-2023 Bacteria identified in Blood by Culture Dr. Corby Heller Work Phone: Start: 06-25-[address] Corby bland Work Phone: Start: 05-04-2023 Urine culture Start: 04-21-2023 Urine culture Start: 03-18-2023 Diagnostic radiograp hy of abdomen Start: 07-27-2022 Plain chest X-ray Start: 07-12-2022 Plain chest X-ray Start: 03-11-2022 Plain chest X-ray Start: 02-26-2022 Screening mammography Start: 02-17-2022 Plain chest X-ray Start: 07-19-2011 Mammography Grisel sesay DO Work Phone: Start: 07-19-2005 Colonoscopy Grisel sesay DO Work Phone: SARS-CoV-2 & FLU Ant igen (Rapid) Plan of Treatment Date Care Activity Detail Author Start: 01-01-2025 [facility] Start: 12-24-2024 Therapeutic prophylactic/dx injection subq/im THER/PROPH/DIAG INJ SC/IM [facility] Start: 12-23-2024 End: 12-23-2024 [facility] Start: 01-27-2024 Patient discharge [facility] Start: 11-25-2023 Anes lithotrp xtrcorp shock wave w/o water bath ANESTH KIDNEY STONE DESTRUCT [facility] Start: 11-25-2023 Lithotripsy xtrcorp shock wave FRAGMENTING OF KIDNEY STONE [facility] Start: 11-25-2023 Patient discharge [facility] Start: 11-11-2023 Patient discharge [facility] Start: 11-11-2023 Anes trurl fragmntj manj&/rmvl ureteral calculus ANESTH STONE REMOVAL [facility] Start: 11-11-2023 Cysto/uretero w/lithotripsy &indwell stent insrt CYSTO/URETERO W/LITHOTRIPSY [facility] Start: 08-05-2023 Anes lithotrp xtrcorp shock wave w/o water bath ANESTH KIDNEY STONE DESTRUCT [facility] Start: 08-05-2023 Lithotripsy xtrcorp shock wave FRAGMENTING OF KIDNEY STONE [facility] Start: 08-05-2023 Patient discharge [facility] Start: 07-16-2023 Development of care plan [facility] Start: 07-15-2023 Patient discharge [facility] Start: 07-14-2023 Referral to service [facility] Start: 07-13-2023 [facility] Start: 07-13-2023 [facility] Start: 07-13-2023 [facility] Start: 07-06-2023 Removal of urinary catheter [facility] Start: 07-04-2023 Referral to wood cabinet finisher [facility] Start: 07-01-2023 Developing a treatment plan [facility] Start: 07-01-2023 Development of care plan [facility] Start: 06-30-2023 Following clinical pathway protocol [facility] Start: 06-30-2023 Admission procedure [facility] Start: 06-30-2023 Measuring intake and output [facility] Start: 06-30-2023 Patient referral to dietitian [facility] Start: 06-30-2023 Referral to occupational therapist [facility] Start: 06-30-2023 Referral to service [facility] Start: 06-30-2023 Vital signs measurements [facility] Start: 06-30-2023 [facility] Start: 06-30-2023 Patient discharge [facility] Start: 06-28-2023 [facility] Start: 06-26-2023 End: 06-27-2023 [facility] Start: 06-26-2023 Following clinical pathway protocol [facility] Start: 06-26-2023 Referral to occupational therapist [facility] Start: 06-26-2023 Referral to service [facility] Start: 06-26-2023 Consultation [facility] Start: 06-26-2023 Enteric precautions [facility] Start: 06-25-2023 Continuous pulse oximetry [facility] Start: 06-25-2023 Dual pressure spontaneous ventilation support [facility] Start: 06-25-2023 Admission procedure [facility] Start: 06-25-2023 Following clinical pathway protocol [facility] Start: 06-25-2023 Assessment of risk of venous thromboembolism [facility] Start: 06-25-2023 Inhalation therapy procedure [facility] Start: 06-25-2023 Insertion of catheter into peripheral vein [facility] Start: 06-25-2023 Oxygen therapy [facility] Start: 06-25-2023 Providing care according to standard [facility] Start: 06-25-2023 Provision of activity privileges [facility] Start: 06-25-2023 Referral to service [facility] Start: 06-25-2023 [facility] Start: 06-25-2023 Physiotherapy of chest [facility] Start: 06-25-2023 Admission procedure [facility] Start: 06-25-2023 Consultation [facility] Start: 07-12-2022 Electrocardiographic procedure [facility] Work Phone: Start: 05-28-2022 Influenza vaccination INFLUENZA (#1) [facility] Start: 03-17-2022 COVID-19 VACCINE (4 - Booster for Luther series) COVID-19 VACCINE (4 - Booster for Luther series) [facility] Start: 09-27-2021 ADVANCE DIRECTIVE DISCUSSION ADVANCE DIRECTIVE DISCUSSION [facility] Start: 09-27-2021 DEPRESSION ASSESSMENT DEPRESSION ASSESSMENT [facility] Start: 07-12-2017 LIPID SCREEN LIPID SCREEN [facility] Start: 07-19-2015 Colonoscopy COLONOSCOPY [facility] Start: 07-19-2015 COLORECTAL CANCER SCREENING COLORECTAL CANCER SCREENING [facility] Start: 07-05-2015 DIABETES SCREEN DIABETES SCREEN [facility] Start: 2014 BONE DENSITY BONE DENSITY [facility] Start: 2014 PNEUMOCOCCAL: 65+ (1 - PCV) PNEUMOCOCCAL: 65+ (1 - PCV) [facility] Start: 07-19-2012 Mammography MAMMOGRAM [facility] Start: 1999 SHINGRIX VACCINE (1 of 2) SHINGRIX VACCINE (1 of 2) [facility] Start: 1994 COLOGUARD (FIT-DNA) COLOGUARD (FIT-DNA) [facility] Start: [address] COLONOGRAPHY [facility] Start: 1994 FECAL OCCULT BLOOD FECAL OCCULT BLOOD [facility] Start: 1994 SIGMOIDOSCOPY SIGMOIDOSCOPY [facility] Start: 02-14-1968 Urine microalbumin profile DTAP,TDAP,TD (1 - Tdap) [facility] Start: 1967 HEPATITIS C SCREENING HEPATITIS C SCREENING [facility] Calculus analysis [facility] Measurement of weigh t of calculus [facility] Origin of [facility] Patient Education [facility] Work Phone: Patient referral [facility] Work Phone: Specimen color determination [facility] Immunizations Immunization Date Immunization Notes Care Provider Fa cility 07-14-2023 Covid (Spikevax) Dr. Corby mehta Work Phone: [facility] 06-27-2023 Influenza High-Dose Quadrivalent Dr. Corby Heller Work Phone: [facility] 01-20-2022 Covid (Moderna) Dr. Corby Heller Work Phone: [facility] 10-21-2021 Covid (Moderna) Dr. Corby Heller Work Phone: [facility] 04-08-2021 Covid (Webstep) [facility] Payers Date Payer Category Payer Self-pay [id number] 2017 Private Health Insurance KEESHA GRIMALDO PPO [id number] 2017-Present [phone] [address] [place] [address] PPO [id number] 2016 Private Health Insurance [id number] 2003 Medicare [id number] 2003 Medicare MEDICARE MEDICAR E A AND B [id number] 2003-Present [phone] [address] [address] [place] [address] Medicare [id number] Unknown [id number] 2.16.840.1.609353.3.579. 2.462 Unknown [id number] 2.16.840.1.018590.3.579. 2.462 Unknown [id number] 2.16.840.1.485313.3.579. 2.462 Unknown [id number] 2.16.840.1.479969.3.579. 2.462 Unknown [id number] 2.16.840.1.613701.3.579. 2.462 Unknown [id number] 2.16.840.1.606581.3.579. 2.462 Unknown [id number] 2.16.840.1.399268.3.579. 2.462 Unknown [id number] 2.16.840.1.646248.3.579. 2.462 Unknown [id number] 2.16.840.1.871701.3.579. 2.462 Unknown [id number] 2.840.1.696611.3.579. 2.462 Unknown [id number] 2.840.1.930995.3.579. 2.462 Unknown [id number] 2.840.1.727123.3.579. 2.462 Unknown [id number] 2.840.1.448945.3.579. 2.462 Unknown [id number] 2.840.1.842983.3.579. 2.462 Unknown [id number] .840.1.974637.3.579. 2.462 Unknown [id number] 2.840.1.620530.3.579. 2.462 Unknown [id number] 2.840.1.415113.3.579. 2.462 Unknown [id number] .840.1.904094.3.579. 2.462 Unknown [id number] .840.1.574891.3.579. 2.462 Unknown [id number] 2.840.1.211902.3.579. 2.462 Unknown [id number] 2.840.1.454524.3.579. 2.462 Unknown [id number] .840.1.410402.3.579. 2.462 Unknown [id number] .840.1.010081.3.579. 2.462 Unknown [id number] .840.1.586193.3.579. 2.462 Unknown [id number] 2.840.1.504435.3.579. 2.462 Unknown [id number] 2.840.1.061877.3.579. 2.462 Unknown [id number] 2.840.1.450793.3.579. 2.462 Unknown [id number] 2.16.840.1.837620.3.579. 2.462 Unknown [id number] 2.16.840.1.509571.3.579. 2.462 Unknown [id number] 2.16.840.1.960054.3.579. 2.462 Social History Date Type Detail Facility Start: 06-30-2021 End: 01-21-2024 Tobacco smoking status CTIS Unknown if ever smoked [facility] Start: 1950 Sex Assigned At Female W [facility] Start: 08-04-2022 End: 01-01-2025 Tobacco smoking status CTIS Never smoked tobacco [facility] Start: 08-04-2022 Tobacco use and exposure Smokeless tobacco non-user [facility] Start: 08-04-2022 Alcohol intake Current drinke r of alcohol (finding) [facility] Start: 06-09-2012 Alcohol Comment social only (1 2 drinks per year) [facility] Start: 1950 Sex Assigned At Not on file [facility] Start: 12-06-2024 End: 12-29-2024 Sex Female (finding) [facility] Medical Equipment Procedure Code Equipment Code Equipment Origin al Text Equipment Identifier Dates Lithotripsy, ESWL Polymeric uret eral stent ()[id number] FDA Start: 11-11-2023 Cystoscopy, with retrograde pyelogram, ureteroscopy, laser procedure, and stent inser Polymeric ureteral stent ()[id number] FDA Start: 01-27-2024 Cystoscopic insertion of stent STENT,URETERAL PIGTAIL 6FRx26 FDA Start: 06-25-2023 Cystoscopic insertion of stent STENT,URETERAL PIGTAIL 6FRx26 FDA Start: 06-25-2023 Cystoscopic insertion of stent STENT,URETERAL PIGTAIL 6FRx26 FDA Start: 06-25-2023 Cystoscopic insertion of stent STENT,URETERAL PIGTAIL 6FRx26 FDA Start: 06-25-2023 Cystoscopic insertion of stent STENT,URETERAL PIGTAIL 6FRx26 FDA Start: 06-25-2023 Cystoscopic insertion of stent STENT,URETERAL PIGTAIL 6FRx26 FDA Start: 06-25-2023 Cystoscopic insertion of stent STENT,URETERAL PIGTAIL 6FRx26 FDA Start: 06-25-2023 Cystoscopic insertion of stent STENT,URETERAL PIGTAIL 6FRx26 FDA Start: 06-25-2023 Cystoscopic insertion of stent STENT,URETERAL PIGTAIL 6FRx26 FDA Start: 06-25-2023 Cystoscopic insertion of stent STENT,URETERAL PIGTAIL 6FRx26 FDA Start: 06-25-2023 Cystoscopic insertion of stent STENT,URETERAL PIGTAIL 6FRx26 FDA Start: 06-25-2023 Cystoscopic insertion of stent STENT,URETERAL PIGTAIL 6FRx26 FDA Start: 06-25-2023 Cystoscopic insertion of stent STENT,URETERAL PIGTAIL 6FRx26 FDA Start: 06-25-2023 Cystoscopic insertion of stent STENT,URETERAL PIGTAIL 6FRx26 FDA Start: 06-25-2023 Cystoscopic insertion of stent STENT,URETERAL PIGTAIL 6FRx26 FDA Start: 06-25-2023 Cystoscopic insertion of stent STENT,URETERAL PIGTAIL 6FRx26 FDA Start: 06-25-2023 Cystoscopic insertion of stent STENT,URETERAL PIGTAIL 6FRx26 FDA Start: 06-25-2023 Cystoscopic insertion of stent STENT,URETERAL PIGTAIL 6FRx26 FDA Start: 06-25-2023 Cystoscopic insertion of stent STENT,URETERAL PIGTAIL 6FRx26 FDA Start: 06-25-2023 Cystoscopic insertion of stent STENT,URETERAL PIGTAIL 6FRx26 FDA Start: 06-25-2023 Cystoscopic insertion of stent STENT,URETERAL PIGTAIL 6FRx26 FDA Start: 06-25-2023 Cystoscopic insertion of stent STENT,URETERAL PIGTAIL 6FRx26 FDA Start: 06-25-2023 Cystoscopic insertion of stent STENT,URETERAL PIGTAIL 6FRx26 FDA Start: 06-25-2023 Cystoscopic insertion of stent STENT,URETERAL PIGTAIL 6FRx26 FDA Start: 06-25-2023 Cystoscopic insertion of stent STENT,URETERAL PIGTAIL 6FRx26 FDA Start: 06-25-2023 Cystoscopic insertion of stent STENT,URETERAL PIGTAIL 6FRx26 FDA Start: 06-25-2023 Cystoscopic insertion of stent STENT,URETERAL PIGTAIL 6FRx26 FDA Start: 06-25-2023 Cystoscopic insertion of stent STENT,URETERAL PIGTAIL 6FRx26 FDA Start: 06-25-2023 Cystoscopic insertion of stent STENT,URETERAL PIGTAIL 6FRx26 FDA Start: 06-25-2023 Cystoscopic insertion of stent STENT,URETERAL PIGTAIL 6FRx26 FDA Start: 06-25-2023 Cystoscopic insertion of stent STENT,URETERAL PIGTAIL 6FRx26 FDA Start: 06-25-2023 Cystoscopic insertion of stent STENT,URETERAL PIGTAIL 6FRx26 FDA Start: 06-25-2023 Cystoscopic insertion of stent STENT,URETERAL PIGTAIL 6FRx26 FDA Start: 06-25-2023 Cystoscopic insertion of stent STENT,URETERAL PIGTAIL 6FRx26 FDA Start: 06-25-2023 Cystoscopic insertion of stent STENT,URETERAL PIGTAIL 6FRx26 FDA Start: 06-25-2023 Cystoscopic insertion of stent STENT,URETERAL PIGTAIL 6FRx26 FDA Start: 06-25-2023 Cystoscopic insertion of stent STENT,URETERAL PIGTAIL 6FRx26 FDA Start: 06-25-2023 Cystoscopic insertion of stent STENT,URETERAL PIGTAIL 6FRx26 FDA Start: 06-25-2023 Cystoscopic insertion of stent STENT,URETERAL PIGTAIL 6FRx26 FDA Start: 06-25-2023 Cystoscopic insertion of stent STENT,URETERAL PIGTAIL 6FRx26 FDA Start: 06-25-2023 Cystoscopic insertion of stent STENT,URETERAL PIGTAIL 6FRx26 FDA Start: 06-25-2023 Cystoscopic insertion of stent STENT,URETERAL PIGTAIL 6FRx26 FDA Start: 06-25-2023 Cystoscopic insertion of stent STENT,URETERAL PIGTAIL 6FRx26 FDA Start: 06-25-2023 Cystoscopic insertion of stent STENT,URETERAL PIGTAIL 6FRx26 FDA Start: 06-25-2023 Goals Date Patient Goal Desired Activity /State Functional Status Date Assessment Result Facility 08-05-2023 Functional status Ambulates;Bedside Commo de [facility] Work Phone: 07-15-2023 Functional status Up ad gian [facility] Work Phone: 07-14-2023 Functional status Assistive Silvina josselin Standard Walker [facility] Work Phone: 07-13-2023 Functional status Tolerates Activity Fair [facility] Work Phone: 06-30-2023 Functional status Bedrest [facility] Work Phone: Mental Status Date Assessment Result Facility 12-28-2024 Cognitive function Awake;Alert;A ppropriate;Follow s Commands [facility] Work Phone: 12-27-2024 Cognitive function Voice/Name [facility] Work Phone: 12-26-2024 Cognitive function Awake;Alert;A ppropriate;Follow s Commands [facility] Work Phone: 12-25-2024 Cognitive function Voice/Name [facility] Work Phone: 12-23-2024 Cognitive function Level Of Cons ciousness Awake;Alert;Appropriate;Follow s Commands [facility] Work Phone: 12-22-2024 Cognitive function Voice/Name [facility] Work Phone: 01-27-2024 Cognitive function Level Of Cons ciousness Appropriate;Drowsy [facility] Work Phone: 01-27-2024 Cognitive function Voice/Name [facility] Work Phone: 11-25-2023 Cognitive function Voice/Name [facility] Work Phone: 11-25-2023 Cognitive function Patient Orien tation Person;Place;Time [facility] Work Phone: 11-11-2023 Cognitive function Voice/Name [facility] Work Phone: 08-05-2023 Cognitive function Voice/Name [facility] Work Phone: 08-05-2023 Cognitive function Patient Orien tation Person;Place;Time [facility] Work Phone: 07-15-2023 Cognitive function Voice/Name;Touch/Shaki ng [facility] Work Phone: 07-10-2023 Cognitive function Appropriate;Cooperativ e [facility] Work Phone: 06-30-2023 Cognitive function Voice/Name [facility] Work Phone: Clinical Notes 08-04-2022 to 01-18-2025 Note Date & Type Note Facility 01-18-2025 Evaluation note Diagnosis Onset Date Resolution Neoplasm of uncertain behavior of skin of face acute January 18, 2025 2:32pm Neoplasm of uncertain behavior of skin of face acute January 26, 2025 2: 03pm [facility] Work Phone: 1(575) 843-673903-25-2025 Radiology Diagnostic study note [facility] Imaging Services [address] [place] [address] Chest PA and Lateral MR#: [id number] Acct: [id number] Name: EDUAR CABRERA Rep #: [id number] : 1950 F 74 From: Barbara Crabtree MD PCP: Dr. Corby Heller MD Status: JOSE A IBARRA Study:Chest PA and Lateral Date of Exam: 12/18/24 Exam# [id number] Ordering Dr: Corby Heller MD EXAM: XR Chest, 2 Views CLINICAL INDICATION: SOB TECHNIQUE: Frontal and lateral views of the chest. COMPARISON: No relevant prior studies available. FINDINGS: LUNGS AND PLEURAL SPACES: Unremarkable. No consolidation. No pneumothorax. HEART: Unremarkable. No cardiomegaly. MEDIASTINUM: Unremarkable. Normal mediastinal contour. BONES/JOINTS: Unremarkable. No acute fracture. RAD/Chest PA and Lateral IMPRESSION: No acute cardiopulmonary process. [facility] CC: Dr. 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: Signed [facility]11-15-2024 Evaluation note* Diagnosis Onset Date Resolution Status Admit Date Osteoarthritis of knees, bilateral acute August 11, 2 024 11:33am Osteoarthritis of knees, bilateral acute August 18, 024 11:31am [facility] Work Phone: 1(601) 849-224305-02-2024 [facility] Discharge summary Author Marie Caldera [facility] January 27, 2024 2:15pm Note Date/Time January 27, 2024 11:02a [facility] Medical Records Department [address] [place] [address] Instructions for Home/Discharge Instructions 01/27/24 1101 MR#: [id number] Acct: [id number] Name: EDUAR CABRERA Rep #:[id number] : 1950 73 From: Marie Whelan PCP: Dr. Corby Heller MD Status:REG S DC Discharge Instructions Diet Discharge Diet: No restrictions Activity Discharge Activity: Return to Normal Activity Dressing / Incision Call your doctor if you observe: Fever of 101 or Higher, Inability to urinate and Inability to have a bowel movement Follow Up Care Please Follow Up With: Marie Caldera MD When: Complete Macrobid Test Results: Test results from this visit will be discussed in further detail at your follow- up appointment, if applicable. Discharge Plan Admission Attending Provider: Marie Caldera Primary Care Provider: Corby Heller Chi Discharge Orders/Prescriptions Prescriptions: New oxycodone-acetaminophen [Percocet] 5-325 mg tablet 1 tab PO Q8H PRN (Reason: pain) 3 Days Qty: 10 0RF Continued fluticasone propionate 1 SPRAY spray,suspension 2 spray NASAL DAILY citalopram 20 mg tablet 20 mg PO QHS Patient Comments: TAKE 1/2 (ONE-HALF) OF A TABLET DAILY FOR 7 DAYS then TAKE 1 TABLET DAILY lovastatin 40 mg tablet 40 mg PO QHS Patient Comments: TAKE 1 TABLET DAILY AT BEDTIME levothyroxine 25 mcg tablet 25 mcg PO DAILY Patient Comments: TAKE 1 TABLET BY MOUTH ONCE DAILY pioglitazone 30 mg tablet 30 mg PO DAILY ropinirole 2 mg tablet 2 mg PO QHS budesonide 0.5 mg/2 mL Suspension For Nebulization 0.5 mg inhalation Q12H.RT Qty: 0 0RF metformin 500 mg tablet 500 mg PO BID Patient Comments: WITH EACH MEAL ascorbic acid (vitamin C) [C-500] 500 mg tablet 500 mg PO DAILY coenzyme Q10 [Co Q-10] 100 mg capsule 50 mg PO DAILY Mqdtmjyjjwl-Tbvkt-MCT Complex 879-685-05-0.5 mg tablet 3 tab PO DAILY Tart Waldron Extract 1,000 mg capsule 1,000 mg PO DAILY ibuprofen [Advil] 200 mg tablet 200 mg PO PRN Probiotic 15 billion cell capsule 1 cap PO DAILY cranberry 400 mg capsule 400 mg PO DAILY Rx Instructions: administer with a meal potassium chloride [Klor-Con M20] 20 mEq Tablet,Er Particles/Crystals 20 meq PO DAILYCM 30 Days Qty: 30 0RF lutein 20 mg capsule 20 mg PO DAILY Rx Instructions: give with meal/snack vitamin B complex Tablet 1 tab PO DAILY oxycodone-acetaminophen [Percocet] 5-325 mg tablet 1 tab PO Q8H PRN (Reason: pain) 3 Days Qty: 10 0RF nitrofurantoin monohyd/m-cryst [Macrobid] 100 mg capsule 100 mg PO BID Qty: 6 0RF Rx Instructions: must administer with a meal/food fluconazole [Diflucan] 100 mg tablet 100 mg PO DAILY 5 Days Qty: 6 0RF Rx Instructions: take 2 tabs today and then one daily unitl gone nystatin 100,000 unit/gram ointment 1 applic topical BID Qty: 30 3RF Rx Instructions: apply to areas of redness in all skin folds twice daily Referrals / Follow Up: Corby Heller Chi, MD [Primary Care Provider] - Disposition Disposition (needs filled in before D/C Order can be placed): Home, Self Care 01/27/24 1415<Electronically signed by Marie Caldera MD>Marie Caldera MD CC: Dr. Corby Heller MD ~ Signed [facility] Work Phone: 1(400) 788-876102-29-2024 Discharge summary Author Marie Caldera [facility] November 25, 2023 12:26pm Note Date/Time November 25, 2023 12:20pm [facility] Medical Records Department [facility] [place] [address] Instructions for Home/Discharge Instructions 11/25/23 1219 MR#: [id number] Acct: [id number] Name: EDUAR CABRERA Rep #:[id number] : 1950 73 From: Marie Whelan PCP: Dr. Corby Heller MD Status:REG S DC Discharge Instructions Diet Discharge Diet: No restrictions Activity Discharge Activity: Return to Normal Activity Dressing / Incision Call your doctor if you observe: Fever of 101 or Higher, Inability to urinate and Inability to have a bowel movement Follow Up Care Please Follow Up With: Marie Caldera MD When: the office will call to make follow up arrangements Test Results: Test results from this visit will be discussed in further detail at your follow- up appointment, if applicable. Discharge Plan Admission Attending Provider: Marie Caldera Primary Care Provider: Corby Heller Chi Discharge Orders/Prescriptions Prescriptions: New oxycodone-acetaminophen [Percocet] 5-325 mg tablet 1 tab PO Q8H PRN (Reason: pain) 3 Days Qty: 10 0RF nitrofurantoin monohyd/m-cryst [Macrobid] 100 mg capsule 100 mg PO BID Qty: 6 0RF Rx Instructions: must administer with a meal/food fluconazole [Diflucan] 100 mg tablet 100 mg PO DAILY 5 Days Qty: 6 0RF Rx Instructions: take 2 tabs today and then one daily unitl gone nystatin 100,000 unit/gram ointment 1 applic topical BID Qty: 30 3RF Rx Instructions: apply to areas of redness in all skin folds twice daily Continued fluticasone propionate 1 SPRAY spray,suspension 2 spray NASAL DAILY citalopram 20 mg tablet 20 mg PO QHS Patient Comments: TAKE 1/2 (ONE-HALF) OF A TABLET DAILY FOR 7 DAYS then TAKE 1 TABLET DAILY lovastatin 40 mg tablet 40 mg PO QHS Patient Comments: TAKE 1 TABLET DAILY AT BEDTIME levothyroxine 25 mcg tablet 25 mcg PO DAILY Patient Comments: TAKE 1 TABLET BY MOUTH ONCE DAILY pioglitazone 30 mg tablet 30 mg PO DAILY ropinirole 2 mg tablet 2 mg PO QHS budesonide 0.5 mg/2 mL Suspension For Nebulization 0.5 mg inhalation Q12H.RT Qty: 0 0RF metformin 500 mg tablet 500 mg PO BID Patient Comments: WITH EACH MEAL ascorbic acid (vitamin C) [C-500] 500 mg tablet 500 mg PO DAILY coenzyme Q10 [Co Q-10] 100 mg capsule 50 mg PO DAILY Gscyoutbfee-Ozyjj-URS Complex [id number] mg tablet 3 tab PO DAILY Tart Waldron Extract 1,000 mg capsule 1,000 mg PO DAILY ibuprofen [Advil] 200 mg tablet 200 mg PO PRN Probiotic 15 billion cell capsule 1 cap PO DAILY cranberry 400 mg capsule 400 mg PO DAILY Rx Instructions: administer with a meal potassium chloride [Klor-Con M20] 20 mEq Tablet,Er Particles/Crystals 20 meq PO DAILYCM 30 Days Qty: 30 0RF lutein 20 mg capsule 20 mg PO DAILY Rx Instructions: give with meal/snack vitamin B complex Tablet 1 tab PO DAILY Referrals / Follow Up: Corby Heller Chi, MD [Primary Care Provider] - Disposition Disposition (needs filled in before D/C Order can be placed): Home, Self Care 11/25/23 1226<Electronically signed by Marie Caldera MD>Marie Caldera MD CC: Dr. Corby Heller MD ~ Signed [facility] Work Phone: 1(913) 684-574002-29-2024 Procedure [facility] 11-11-2023 Procedure [facility]11-09-2023 Discharge summary Author Marie Caldera [facility] August 05, 2023 9:16am Note Date/Time August 05, 2023 8 :34am [facility] Medical Records Department [address] [place] [address] Instructions for Home/Discharge Instructions 08/05/23 0833 MR#: [id number] Acct: [id number] Name: EDUAR CABRERA Rep #:[id number] : 1950 73 From: Marie Whelan PCP: Dr. Corby Heller MD Status:REG S DC Discharge Instructions Diet Discharge Diet: No restrictions Activity Discharge Activity: Return to Normal Activity Dressing / Incision Call your doctor if you observe: Fever of 101 or Higher, Inability to urinate and Inability to have a bowel movement Follow Up Care Please Follow Up With: Marie Caldera MD When: the office will call to make arrangements Test Results: Test results from this visit will be discussed in further detail at your follow- up appointment, if applicable. Discharge Plan Admission Attending Provider: Marie Caldera Primary Care Provider: Corby Heller Chi Discharge Orders/Prescriptions Prescriptions: New oxycodone-acetaminophen [Percocet] 5-325 mg tablet 1 tab PO Q8H PRN (Reason: pain) 3 Days Qty: 9 0RF nitrofurantoin monohyd/m-cryst [Macrobid] 100 mg capsule 100 mg PO BID Qty: 6 0RF Rx Instructions: must administer with a meal/food Continued fluticasone propionate 1 SPRAY spray,suspension 2 spray NASAL DAILY citalopram 20 mg tablet 20 mg PO DAILY Patient Comments: TAKE 1/2 (ONE-HALF) OF A TABLET DAILY FOR 7 DAYS then TAKE 1 TABLET DAILY lovastatin 40 mg tablet 40 mg PO QHS Patient Comments: TAKE 1 TABLET DAILY AT BEDTIME levothyroxine 25 mcg tablet 25 mcg PO DAILY Patient Comments: TAKE 1 TABLET BY MOUTH ONCE DAILY pioglitazone 30 mg tablet 30 mg PO DAILY ropinirole 2 mg tablet 2 mg PO QHS budesonide 0.5 mg/2 mL Suspension For Nebulization 0.5 mg inhalation Q12H.RT Qty: 0 0RF metformin 500 mg tablet 500 mg PO BID ascorbic acid (vitamin C) [C-500] 500 mg tablet 500 mg PO DAILY coenzyme Q10 [Co Q-10] 100 mg capsule 100 mg PO DAILY Dlmpxgzlywa-Onglf-SNT Complex 589-930-67-0.5 mg tablet 3 tab PO DAILY Tart Waldron Extract 1,000 mg capsule 1,000 mg PO DAILY ibuprofen [Advil] 200 mg tablet 200 mg PO PRN polysaccharide iron complex [Ferrex 150] 150 mg iron Capsule 150 mg PO DAILY 30 Days Qty: 30 0RF potassium chloride [Klor-Con M20] 20 mEq Tablet,Er Particles/Crystals 20 meq PO DAILYCM 30 Days Qty: 30 0RF nitrofurantoin monohyd/m-cryst 100 mg Capsule 100 mg PO BID 3 Days Qty: 6 0RF Referrals / Follow Up: Corby Heller Chi, MD [Primary Care Provider] - Disposition Disposition (needs filled in before D/C Order can be placed): Home, Self Care 08/05/23 0916<Electronically signed by Marie Caldera MD>Marie Caldera MD CC: Dr. Corby Heller MD ~ Signed [facility] Work Phone: 1(523) 402-797810-18-2023 Discharge summary Author Corby [facility] July 14, 2023 7:36pm Note Date/Time July 14, 2023 7 :31pm [facility] Medical Records Department [address] [place] [address] Discharge Summary 07/14/231926 MR#: [id number] Acct: [id number] Name: EDUAR CABRERA Rep #:[id number] : 1950 73 From: Corby Heller MD PCP: Dr. Corby Heller MD Status:ADM I N Location: [place] [address] Providers Date of Admission: 06/30/23 Primary Care Physician: Dr. Corby Heller MD Consultations 07/04/23 15:54 Consult: Podiatry Routine Consulting Provider: Luis Bhardwaj Reason for Consult: diabetic, toenail trimming EMERGENT Consult: No MD Notified: Yes Date Notified: 07/04/23 Time Notified: 15:54 Method of Notification: Verbal Reason For Visit: COMPLICATED UTI Diagnosis Discharge Diagnosis (1) Debility: Status: Acute Code(s): R53.81 - Other malaise (2) Generalized weakness: Status: Acute Code(s): R53.1 - Weakness (3) Diabetes: Status: Acute Code(s): E11.9 - Type 2 diabetes mellitus without complications (4) Chronic toe pain, left foot: Status: Acute Code(s): M79.675 - Pain in left toe(s); G89.29 - Other chronic pain (5) Chronic toe pain, right foot: Status: Acute Code(s): M79.674 - Pain in right toe(s); G89.29 - Other chronic pain (6) Ingrowing nail: Status: Acute Code(s): L60.0 - Ingrowing nail (7) Tinea unguium: Status: Acute Code(s): B35.1 - Tinea unguium Plan 73 year old female with below past medical history hospitalized for septic shocksecondary to complicated urinary tract infection from bilateral kidney stones requiring bilateral ureteral stents, complicated by left lower lobe pneumonia, covid-19, clostridium difficile diarrhea, acute kidney injury, admitted to TCU with debility, here for rehabilitation, strengthening, prior to discharge home with family. * Debility - PT/OT. * Pain - Tylenol 1000mg q8, Arthritis 2 click tid right knee, Oxycodone 5mg q4h prn pain (1-10). * Bowel - Monitor. * Adult immunization - Administer pneumonia vaccine, covid19 vaccine, flu vaccine as appropriate. * DVT prophylaxis - Lovenox 40mg sc daily. * Hyperlipidemia - Atorvastatin 10mg qhs. * Asthma - Budesonide 0.5mg q12h. * Complicated UTI - Cefdinir 300mg Q12h thru 07/03/2023. 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 * Allergic Rhinitis - Flonase 2 sprays daily. * Cough - Robitussin DM 10mg q6h prn. * Hypothyroidism - Levothyroxine 25mcg daily. * Tinea Corporis - Nystatin powder topical bid. * Diabetes Mellitus II - Pioglitazone 30mg daily. * Hypokalemia - KCL 20meq daily. * Restless leg syndrome - Mirapex 1mg qhs. * C. Diff - Vancomycin 125mg q6 thru 07/05/2023. * Covid-19 - Asymptomatic. Medications at Discharge Home Medications fluticasone propionate 50 mcg/actuation nasal spray,suspension 2 spray NASAL DAILY allergies 12/07/16 citalopram 20 mg tablet 20 mg PO DAILY DEPRESSION 04/26/21 levothyroxine 25 mcg tablet 25 mcg PO DAILY thyroid 04/29/21 lovastatin 40 mg tablet 40 mg PO QHS cholesterol 04/29/21 pioglitazone 30 mg tablet 30 mg PO DAILY DM 06/25/23 ropinirole 2 mg tablet 2 mg PO QHS RLS 06/25/23 budesonide 0.5 mg/2 mL suspension for nebulization 0.5 mg (2 mL) inhalation Q12H.RT breathing #0 mL 06/30/23 acetaminophen 500 mg tablet 1,000 mg (2 x 500 mg) PO Q8 #0 tabs 07/14/23 nitrofurantoin monohydrate/macrocrystals 100 mg capsule 100 mg PO BID 3 days #6 caps 07/14/23 polysaccharide iron complex 150 mg iron capsule (Ferrex) 150 mg PO DAILY 30 days#30 caps 07/14/23 potassium chloride 20 mEq tablet,extended release(part/cryst) (Klor-Con M) 20 meq PO DAILYCM 30 days #30 tabs 07/14/23 Hospital Course Operations - (Cystoscopy, bilateral ureteral stents.) Procedures None Summary of Care Provided Minutes Spent on Discharge: 35 Hospital Course: 73 year old female with below past medical history hospitalized for septic shocksecondary to complicated urinary tract infection from bilateral kidney stones requiring bilateral ureteral stents, complicated by left lower lobe pneumonia, covid-19, clostridium difficile diarrhea, acute kidney injury, admitted to TCU with debility, here for rehabilitation, strengthening, prior to discharge home with family. 07/09/2023 E. Coli urinary tract infection, treated with Nitrofurantoin 100mg twice daily x 7 days, will discharge on Nitrofurantoin. Discharge home with family 07/15/2023, [facility] PT/OT/CORDON/SW. Physical Exam Const alert General Appearance: cooperative HEENT normocephalic Eyes PERRL and EOMs intact bilaterally Neck supple, no JVD and no carotid bruits Resp normal respiratory effort, normal air movement and clear to auscultation bilaterally Cardio regular rate and regular rhythm GI normal to inspection, nondistended, normoactive bowel sounds, non-tender and non-distended Extremity normal capillary refill General Extremity: Negative for edema Skin no rashes or lesions noted General Skin Exam: no breakdown Psych affect normal Appearance: appropriate Weight / BMI Weight Weight: 117.571 kg Body Mass Index (BMI) 47.4 ABG / Lab / Microbiology Data 07/12/23 05:16 07/08/23 05:11 Laboratory: Laboratory Results - last 24 hr 07/14/23 06:11: POC Glucose 110 H Microbiology: Microbiology 07/09/23 12:45 Urine, Catheterized Urine Culture - Final Escherichia coli D/C Instructions Discharge Diet: No restrictions Discharge Activity: Return to Normal Activity, May Shower and Use Walker Weight Bearing Status: Weight bearing as tolerated Call your doctor if you observe: Fever of 101 or Higher, Inability to urinate, Inability to have a bowel movement, Shortness of breath, Dizziness, Fainting spells, Swelling in the ankles, Chest pain and Uncontrolled pain Additional Instructions: Discharge home with family 07/15/2023, [facility] PT/OT/CORDON/SW. Please Follow Up With: Marie Caldera MD When: 1 week. Meaningful Use Info Meaningful Use Diagnoses (Choose all that apply): None applicable Discharge Plan Admission Admit Date/Time: 06/30/23 14:43 Primary Reason for Your Visit: Debility. Attending Provider: Corby Heller Chi Primary Care Provider: Corby Heller Chi Consulting Providers: Luis Bhardwaj Instructions Additional Instructions / Restrictions: Discharge home with family 07/15/2023, [facility] PT/OT/CORDON/SW. Discharge Orders/Prescriptions Prescriptions: New polysaccharide iron complex [Ferrex 150] 150 mg iron Capsule 150 mg PO DAILY 30 Days Qty: 30 0RF acetaminophen 500 mg Tablet 1,000 mg PO Q8 Qty: 0 0RF potassium chloride [Klor-Con M20] 20 mEq Tablet,Er Particles/Crystals 20 meq PO DAILYCM 30 Days Qty: 30 0RF nitrofurantoin monohyd/m-cryst 100 mg Capsule 100 mg PO BID 3 Days Qty: 6 0RF Continued fluticasone propionate 1 SPRAY spray,suspension 2 spray NASAL DAILY citalopram 20 mg tablet 20 mg PO DAILY Patient Comments: TAKE 1/2 (ONE-HALF) OF A TABLET DAILY FOR 7 DAYS then TAKE 1 TABLET DAILY lovastatin 40 mg tablet 40 mg PO QHS Patient Comments: TAKE 1 TABLET DAILY AT BEDTIME levothyroxine 25 mcg tablet 25 mcg PO DAILY Patient Comments: TAKE 1 TABLET BY MOUTH ONCE DAILY pioglitazone 30 mg tablet 30 mg PO DAILY ropinirole 2 mg tablet 2 mg PO QHS budesonide 0.5 mg/2 mL Suspension For Nebulization 0.5 mg inhalation Q12H.RT Qty: 0 0RF Discontinued potassium chloride 10 mEq capsule, extended release 20 meq PO DAILY acetaminophen 325 mg Tablet 650 mg PO Q6H PRN PRN (Reason: Pain 1-10 Or Fever>100.7) Qty: 0 0RF cefdinir 300 mg Capsule 300 mg PO Q12 Qty: 7 0RF Rx Instructions: continue for 7 doses starting evening 06/30/23 hydrocodone-acetaminophen 5-325 mg Tablet 1 - 2 tab PO Q6H PRN PRN (Reason: Pain Score 4-10) 3 Days Qty: 10 0RF dextromethorphan-guaifenesin 10-100 mg/5 mL Syrup 10 ml PO Q6H PRN PRN (Reason: COUGH) Qty: 0 0RF nystatin [Nyamyc] 100,000 unit/gram Powder 1 applic topical BID Qty: 0 0RF Protocol: *Topical Application Instructions APPLICATION INSTRUCTIONS: B intertriginous areas vancomycin [Firvanq] 25 mg/mL Recon Soln 125 mg PO Q4 Qty: 0 0RF Rx Instructions: continue for 5 days starting 06/30/23 Arthritis Pain Compound 1 click topical Q8H PRN (Reason: pain) Referrals / Follow Up: Marie Caldera MD [Med Staff - Active Staff] - 07/20/23 3:40 pm Corby Heller Chi, MD [Primary Care Provider] - 07/15/23 11:20 am Disposition Disposition (needs filled in before D/C Order can be placed): Home Health Service 07/14/231935 <Electronically signed by Corby Heller MD> Cosigner Signature (if applicable): CC: Dr. Corby Heller MD~ Signed [facility] Work Phone: 1(654) 212-660710-11-2023 Consult note Author [facility] July 07, 2023 7:10pm Note Date/Time July 07, 2023 7 :09pm [facility] Medical Records Department [address] [place] [id number] Consultation 07/07/23 184 MR#: [id number] Acct: [id number] Name: EDUAR CABRERA Rep #:[id number] : 1950 73 From: Ryann eastman DPAbdias PCP: Dr. Corby Heller MD Status:ADM I N Location: [place] [id number] Assessment & Plan Assessment/Plan (1) Debility: (2) Generalized weakness: (3) Diabetes: (4) Chronic toe pain, left foot: (5) Chronic toe pain, right foot: (6) Ingrowing nail: (7) Tinea unguium: PLAN: Plan Patient seen and evaluated On examination she demonstrates thickened, elongated, discolored, incurvated nails 1 through 5 bilateral with pain to palpation of bilateral medial hallux nailborders secondary to ingrown toenail. I reviewed her case and condition of onychomycosis. I reviewed treatment options in detail with her. She states that she gets relief from routine nail debridements and would prefer to continue with conservative care of debridement of her nails today. I performed debridement of the nail 1, 2, 3, 4, and 5 of the left and right foot utilizing a nail nipper debriding in length and thickness to patient tolerance. This was performed without incident. Discussedtreatment of ingrown toenail consisting of slant back versus temporary nail avulsion versus matrixectomy. Patient elects for slant back nail avulsion. Following verbal permission a slant back nail avulsion of the medial border of the right hallux and left hallux were performed without use of local anesthesia to patient tolerance. Following removal of the offending nail border immediate pain relief was noted. This was performed without incident. Discussed proper diabetic diet and continue daily foot checks. Reminded her to not go barefoot, this includes socks. Stressed importance of glycemic control. Discussed that if she notices any redness, suspicious lesions, possible wounds to call the office sooner for appointment. She voices understanding of this. She will continue to follow in office with Dr. Lora for diabetic management and routine debridement of nails in 2 to 3 months. Podiatry to sign off Ryann Geiger Jr. D.P.M. [facility] [phone] HPI Consult Data Date of Consult: 07/07/23 HPI Narrative Reason for Consultation: Thickened, elongated toenails 1-5 bilateral. Ingrown toenail b/l hallux HPI Narrative: EDUAR CABRERA, is a 73 F who presents to [facility] transitional care unit for strength and rehabilitation prior to discharge home secondary to fever, cough, and urinary frequency. She was admitted to [facility] 06/25/2023 for treatment of complicated UTI and left lower lobe pneumonia. Following treatment she was admitted to TCU with debility, rehabilitation and strengthening prior to her discharge home. She has PMHx of diabetes mellitus type 2, HTN, hypothyroidism, kidney stones, asthma, anxiety and depression, plantar fasciitis. She states that she missed her previous appointment with Dr. Lora in office due to illness and hospitalizations. Shestates that her nails have become long and painful contacting the end of the shoe gear. She states they are also painful when ambulating in shoes and without shoes secondary to the nature of the curvature and thickness. She also states her ingrown toenail is causing pain at the medial borders of bilateral hallux. She was consulted to podiatry for thickened, elongated, incurvated toenails 1 through 5 bilateral in addition to bilateral hallux ingrown toenail. [facility] Medical History (Updated 10/11/23 @ 19:[address] Ryann Geiger, DPAbdias) Anemia Anxiety Asthma COVID-19 Depression Diabetes Fibromyalgia Foot arch pain Hypertension Hypothyroidism Kidney stones Osteoarthritis Thrombocytopenia Home Medications fluticasone propionate 50 mcg/actuation nasal spray,suspension 2 spray NASAL DAILY allergies 12/07/16 [History Last Taken 06/30/23] citalopram 20 mg tablet 20 mg PO DAILY DEPRESSION 04/26/21 [History Last Taken 06/30/23] levothyroxine 25 mcg tablet 25 mcg PO DAILY thyroid 04/29/21 [History Last Taken 06/30/23] lovastatin 40 mg tablet 40 mg PO QHS cholesterol 04/29/21 [History Last Taken 06/30/23] potassium chloride 10 mEq capsule,extended release 20 meq PO DAILY supplement 04/29/21 [History Last Taken 06/22/23] pioglitazone 30 mg tablet 30 mg PO DAILY DM 06/25/23 [History Last Taken 06/22/23] ropinirole 2 mg tablet 2 mg PO QHS RLS 06/25/23 [History Last Taken 06/29/23] Arthritis Pain Compound 1 click topical Q8H PRN pain 06/30/23 [History Last Taken 06/29/23] acetaminophen 325 mg tablet 650 mg (2 x 325 mg) PO Q6H PRN PRN Pain 1-10 Or Fever>100.7 #0 tabs 06/30/23 [Rx Last Taken 06/30/23] budesonide 0.5 mg/2 mL suspension for nebulization 0.5 mg (2 mL) inhalation Q12H.RT breathing #0 mL 06/30/23 [Rx Last Taken 06/30/23] cefdinir 300 mg capsule 300 mg PO Q12 infection #7 caps 06/30/23 [Rx Last Taken 06/30/23] dextromethorphan-guaifenesin 10 mg-100 mg/5 mL oral syrup 10 ml PO Q6H PRN PRN COUGH #0 mL 06/30/23 [Rx Last Taken 06/28/23] hydrocodone-acetaminophen 5-325mg 5mg-325mg 1 - 2 tab PO Q6H PRN PRN Pain Score 4-10 3 days #10 tabs 06/30/23 [Rx Last Taken 06/29/23] nystatin 100,000 unit/gram topical powder (Nyamyc) 1 applic topical BID moisture/ #0 grams 06/30/23 [Rx Last Taken 06/29/23] vancomycin 25 mg/mL oral solution (Firvanq) 125 mg (5 mL) PO Q4 antibiotic #0 mL06/30/23 [Rx Last Taken 06/30/23] Allergy/AdvReac Type Severity Reaction Status Date / Time cephalexin monohydrate Allergy Swelling Verified 06/25/23 13:46 [From Keflex] ibuprofen Allergy Swelling Verified 06/25/23 13:46 oxaprozin [From Daypro] Allergy Swelling Verified 06/25/23 13:46 tramadol HCl [From Ultram] Allergy Swelling Verified 06/25/23 13:46 celecoxib [From Celebrex] AdvReac DIZZY AND Verified 06/25/23 13:46 HURTS AROUND MY LIVER Family History Other Diabetes Hypertension Surgical History (Updated 06/30/23 @ 21:[address] Corby Heller MD) History of ureter stent Social History (Updated 06/30/23 @ 21:[address] Corby Heller MD) household members: children housing: house Smoking Status: Never smoker alcohol intake: never substance use type: does not use ROS Constitutional Constitutional: Denies anorexia, chills, fatigue or fever(s) Eyes Eyes: Denies blurry vision, double vision or erythema ENT HEENT: Denies nasal congestion, sore throat or tinnitus Cardiovascular Cardiovascular: Denies chest pain, claudication or cold extremities Respiratory/Chest Respiratory/Chest: Denies dyspnea, productive cough or wheezing Gastrointestinal Gastrointestinal: Denies abdominal pain, constipation, diarrhea, nausea or vomiting Genitourinary Genitourinary: Denies dysuria, hematuria or urinary hesitancy Musculoskeletal Musculoskeletal: Denies joint pain, joint stiffness or joint swelling Integumentary Integumentary: Denies lesions, pruritus or rash Neurologic Neurologic: Denies dizziness, numbness or seizures Endocrine Endocrinology: Denies cold intolerance or heat intolerance Hematologic/Lymphatic Hematologic/Lymphatic: Denies lymphadenopathy Allergic/Immunologic Allergic/Immunologic: Denies wheezing Physical Exam Const alert, oriented x3, no apparent distress and well nourished General Appearance: cooperative HEENT normocephalic Eyes General Eye: normal appearance of both eyes Neck General: normal visual inspection Lymph Lymphatic: no lymphadenopathy noted and no lymphedema noted Resp normal respiratory effort Cardio regular rate and regular rhythm Extremity normal capillary refill, no calf tenderness and no pedal edema Extremity Narrative: DP and PT pulses palpable bilateral. Capillary fill time less than 5 seconds todigits bilateral. There is mild nonpitting edema about the foot and ankle bilateral. Dermatological: Skin mildly xerotic. Normal skin turgor. Webspaces 1 through 4C/D/I bilateral. Nails 1, 2, 3, 4, and 5 of the left and right foot are elongated, thickened, discolored yellow, with incurvation. Bilateral hallux medial nail border demonstrates incurvation with slight pain to palpation. Musculoskeletal: Muscle strength 5 of 5 age-appropriate. Decreased range of motion of the ankle joint dorsiflexion with knee extended without pain or crepitus. Decreased range of motion of the subtalar joint, midtarsal joint, andfirst metatarsophalangeal joint without pain or crepitus. Skin no rashes or lesions noted, skin turgor normal and no jaundice Neuro moves all extremities Lab / Micro Data 07/07/23 05:20 07/01/23 05:55 Labs: Laboratory Results - last 24 hr 07/07/23 05:20: Hgb 9.1 L, Hct 29.9 L 07/07/23 05:59: POC Glucose 127 H 07/07/230 <Electronically signed by Ryann Geiger DPM> Cosigner Signature (if applicable): CC: CHRISTINA Bhardwaj; Dr. Corby Heller MD~ Signed [facility] Work Phone: 1(573) 285-652110-05-2023 Progress note Author Corby Heller [facility] July 01, 2023 5:21pm Note Date/Time July 01, 2023 2: 38pm [facility] Medical Records Department [address] [place] [id number] Progress Note - Pharmacy 07/01/23 1408 MR#: [id number] Acct: [id number] Name: EDUAR CABRERA Rep #:[id number] : 1950 73 From: Elgin Humphrey PCP: Dr. Corby Heller MD Status:ADM I N Location: [facility] [id number] Documented by User: Elgin Davidsonerika 07/01/23 15:26 TCU RX Drug Regimen Review Subjective/Objective Subjective/Objective: Subjective: 73 year old female with below past medical history hospitalized for septic shock secondary to complicated urinary tract infection from bilateral kidney stones requiring bilateral ureteral stents, complicated by left lower lobe pneumonia, Covid-19, clostridium difficile diarrhea, acute kidney injury, admitted to TCU with debility, here for rehabilitation, strengthening, prior to discharge home with family. Objective: Allergies cephalexin monohydrate [From Keflex] Allergy (Verified 06/25/23 13:46) Swelling ibuprofen Allergy (Verified 06/25/23 13:46) Swelling STATES CAN TAKE LOW DOSES ONLY oxaprozin [From Daypro] Allergy (Verified 06/25/23 13:46) Swelling tramadol HCl [From Ultram] Allergy (Verified 06/25/23 13:46) Swelling celecoxib [From Celebrex] Adverse Reaction (Verified 06/25/23 13:46) DIZZY AND HURTS AROUND MY LIVER DIZZY AND HURTS AROUND MY LIVER Current Medications Generic Name Dose Route Start Last Admin Trade Name Freq PRN Reason Stop Dose Admin Acetaminophen 1,000 mg 06/30/23 22:00 07/01/23 13:48 Acetaminophen 500 Mg Tablet PO 1,000 mg Q8 BARB Administration Atorvastatin Calcium 10 mg 06/30/23 22:00 06/30/23 21:24 Atorvastatin Calcium 10 Mg Tablet PO 10 mg QHS BARB Administration Budesonide 0.5 mg 06/30/23 15:00 07/01/23 07:30 Budesonide Respules 0.5 Mg/2 Ml Ampul.Neb. INHALATION 0.5 mg Q12H.RT BARB Administration Cefdinir 300 mg 06/30/23 22:00 07/01/23 10:53 Cefdinir 300 Mg Capsule PO 07/03/23 22:01 300 mg Q12 BARB Administration Citalopram Hydrobromide 20 mg 07/01/23 10:00 07/01/23 10:53 Citalopram 20 Mg Tablet PO 20 mg DAILY BARB Administration Compound Med 2 click 06/30/23 22:00 07/01/23 13:48 Arthritis Pain Compound 60 Click Tube TOPICAL 2 click Q8H BARB Administration Fluticasone Propionate 2 spray 07/01/23 10:00 07/01/23 10:54 Fluticasone 0.05% 1 [place] Nasal.Sry NASAL 2 spray DAILY BARB Administration Guaifenesin 10 ml 06/30/23 14:59 Guaifenesin Dm 10 Ml Udc PO Q6H PRN PRN COUGH Levothyroxine Sodium 25 mcg 07/01/23 06:00 07/01/23 06:01 Levothyroxine 25 Mcg Tablet PO 25 mcg 0600 BARB Administration Nystatin 1 applic 06/30/23 22:00 07/01/23 10:54 Nystatin Powder 15gm Bottle TOPICAL 1 applic BID BARB Administration Protocol Oxycodone HCl 5 mg 06/30/23 21:37 Oxycodone 5 Mg Tablet PO Q4H PRN PRN Pain Score 1-10 Pioglitazone HCl 30 mg 07/01/23 10:00 07/01/23 10:53 Pioglitazone Hydrochloride 30 Mg Tablet PO 30 mg DAILY BARB Administration Polysaccharide Iron Complex 150 mg 07/01/23 10:00 07/01/23 10:48 Iron Polysaccharide Complex 150 Mg Capsule PO 150 mg DAILY BARB Administration Potassium Chloride 20 meq 07/01/23 08:00 07/01/23 10:58 Potassium Chloride Oral Tablet 20 Meq PO Not Given DAILYCM [facility] Pramipexole Dihydrochloride 1 mg 06/30/23 22:00 06/30/23 21:24 Pramipexole Di-Hcl 1 Mg Tablet PO 1 mg QHS BARB Administration Sodium Chloride 10 - 40 ml 06/30/23 15:21 0.9% Saline Lock 10 Ml Syringe IV UD PRN SALINE FLUSH Tuberculin PPD 0.1 ml 07/08/23 10:00 Tuberculin,Purif.Prot.Deriv. 50 Tu/Ml Vial ID 07/08/23 10:01 X1 ONE Vancomycin HCl 125 mg 07/01/23 00:00 07/01/23 10:52 Vancomycin 125 Mg/5 Ml Susp Po.Syringe PO 07/06/23 00:01 125 mg Q6 BARB Administration Problem List (Updated 06/30/23 @ 21:[address] Corby Heller MD) Hypokalemia (Acute) Hypertension (Chronic) Restless leg syndrome (Acute) Depression (Acute) Asthma (Acute) Clostridium difficile diarrhea (Acute) COVID-19 (Acute) Bilateral kidney stones (Acute) Debility (Acute) Septic shock (Acute) Left lower lobe pneumonia (Acute) Complicated urinary tract infection (Acute) CARA (acute kidney injury) (Acute) Vital Signs Temp Pulse Resp BP Pulse Ox O2 Del Method 98 F 78 18 131/74 H 95 Room Air 07/01/23 11:07 07/01/23 11:07 07/01/23 11:07 07/01/23 11:07 07/01/23 11:07 07/01/23 11:07 Oxygen Delivery Method Room Air Weight: 126.7 kg Body Mass Index (BMI) 51.0 Sodium 137 mmol/L (136-145) 07/01/23 05:55 Potassium 4.5 mmol/L (3.5-5.1) 07/01/23 05:55 Chloride 108 mmol/L (98-107) H 07/01/23 05:55 Carbon Dioxide 26.0 mmol/L (21.0-32.0) 07/01/23 05:55 Anion Gap 3 (5-15) L 07/01/23 05:55 BUN 25 mg/dL (7-18) H 07/01/23 05:55 Creatinine 0.78 mg/dL (0.55-1.02) 07/01/23 05:55 Est GFR (MDRD) Af Amer 93 mL/min (>60) 07/01/23 05:55 Est GFR (MDRD) Non-Af 77 mL/min (>60) 07/01/23 05:55 BUN/Creatinine Ratio 32.2 RATIO (10-20) H 07/01/23 05:55 Glucose 137 mg/dL (74-106) H 07/01/23 05:55 Assessment/Plan: 1. Pain: acetaminophen 1000 mg PO Q8H, oxycodone 5 mg PO Q4H PRN pain (1-10), arthritis pain compound 2 clicks topically Q8H. The patient has not used any PRNdoses of oxycodone this admission. Please continue to monitor PRN pain medication usage, pain levels, LFTs (AST/ALT = 73/32 U/L on 06/26/23), for respiratory depression, constipation and falls/syncope/ataxia (oxycodone Beer's criteria). 2. UTI: cefdinir 300 mg PO Q12H through 07/03/23. Please continue to monitor for s/s of unresolved UTI including dysuria, frequency, and urgency, as well as for fever (recent temperatures = 97 - 99.2 F), chills, WBC count (WBC = 10.9 K/mm3 on 07/01/23), and for diarrhea that could indicate continued clostridium difficile infection (the patient is currently being treated for clostridium difficile infection). 3. Clostridium difficile infection: vancomycin 125 mg PO Q6H through 07/05/23.Thepatient's last documented bowel movement was on 06/28/23. Please continue to monitor for s/s of clostridium difficile infection resolution including improvement in diarrhea, WBC count (WBC = 10.9 K/mm3 on 07/01/23), and fevers (recent temperatures = 97 - 99.2 F). If the patient does not have further bouts of diarrhea, consider ordering a mediation PRN for constipation such as senna/docusate 2 tabs PO BID PRN constipation. 4. Hyperlipidemia: atorvastatin 10 mg PO QHS. Please continue to monitor LFTs (AST/ALT = 73/32 U/L on 06/26/23), for myalgias, and lipid levels (no recent lipid levels documented). Consider ordering a lipid panel to asses the need for continued atorvastatin. 5. Asthma: budesonide 0.5 mg inhalation nebulized Q12H. Please continue to monitor for s/s of asthma exacerbation, for s/s of pneumonia, and for oral thrush. To help prevent oral thrush please consider rinsing the patients mouth with water after each administration. 6. Diabetes Mellitus II: pioglitazone 30 mg PO daily. Please continue to monitorblood sugars (recent range = 104-233 mg/dL), hemoglobin A1C (no recent A1C documented), for s/s of fluid retention including lower extremity edema, crackles in lungs with shortness of breath, and LFTs (AST/ALT = 73/32 U/L on 06/26/23). Please consider ordering a hemoglobin A1C for the patient as she does not have a recent one documented. 7. Hypothyroidism: levothyroxine 25 mcg PO daily. Please continue to monitor fors/s of hyper/hypothyroidism, TSH levels (TSH = 3.47 uIU/mL on 04/21/23), and T4 levels (free T4 = 1.18 ng/dL on 03/28/14). Please consider ordering a free T4 level if clinically indicated. 8. Hypokalemia: potassium chloride 20 mEq PO daily. Please continue to monitor potassium levels (K = 4.5 mmol/L on 07/01/23), and for GI distress. If GI distress occurs with potassium chloride administration please consider giving with food. 9. Allergic Rhinitis/Cough: fluticasone 0.05% nasal spray 2 sprays in each nostril daily, guaifenesin 10 mL PO Q6H PRN cough. The patient has not used any doses of PRN guaifenesin to date. Please continue to monitor for cough, allergy symptoms, PRN medication usage, headache, epistaxis, and drowsiness. 10. Iron deficiency: iron polysaccharide 150 mg PO daily. Please continue to monitor hemoglobin levels (Hgb = 9.3 g/dL on 07/01/23), for constipation, and iron levels (no recent iron levels documented). Please consider ordering iron levels to determine extent of patient's iron deficiency and to ensure the patient is appropriately being treated for iron deficiency anemia. 11. Tinea Corporis: nystatin topically powder 1 application topically BID. Please continue to monitor for resolution of tinea corporis. Assessment/Plan for indications treated with psychotropic medications: 1. Depression: citalopram 20 mg PO daily. Please see provider note regarding stable chronic long-term therapy GDR not advised. Please continue to monitor forSI, sodium levels (Na = 137 mmol/L on 07/01/23), syncope/falls/ataxia, and for s/s of serotonin syndrome. 2. Restless leg syndrome: pramipexole 1 mg PO QHS. Stable long-term dose GDR notrecommended. Please continue to monitor for nausea/vomiting, for orthostatic hypotension (recent BPs = 106-134/56-99 mmHg), and for somnolence. Medical chart and medication regimen reviewed. The following medication irregularities or issues were identified: 1. Clostridium difficile infection: vancomycin 125 mg PO Q6H through 07/05/23. Ifthe patient does not have further bouts of diarrhea, consider ordering a mediation PRN for constipation such as senna/docusate 2 tabs PO BID PRN constipation. 2. Hyperlipidemia: atorvastatin 10 mg PO QHS. Consider ordering a lipid panel toasses the need for continued atorvastatin. 3. Diabetes Mellitus II: pioglitazone 30 mg PO daily. Please consider ordering ahemoglobin A1C for the patient as she does not have a recent one documented. 4. Iron deficiency: iron polysaccharide 150 mg PO daily. Please consider ordering iron levels to determine extent of patient's iron deficiency and to ensure the patient is appropriately being treated for iron deficiency anemia. Date Date of Note:: 07/01/23 Documented by User: Dr. Corby Heller MD 07/01/23 17:21 [facility] RX Drug Regimen Review Provider Comments Provider responsibility Provider Comments to Recommendations by Pharmacy: Agree 07/01/23 1526 <Electronically signed by Elgin Humphrey> Elgin Humphrey Cosigner Signature (if applicable): 07/01/23 1721 <Electronically signed by Corby Heller MD> CC: ~ Signed [facility] Work Phone: 1(332) 444-696410-04-2023 History and physical note [facility] June 30, 2023 9:36pm Note Date/Time June 30, 2023 9: 28pm [facility] Medical Records Department [address] [place] [address] History & Physical Exam 06/30/232115 MR#: [id number] Acct: [id number] Name: EDUAR CABRERA Rep #:[id number] : 1950 73 From: Corby Heller MD PCP: Dr. Corby Heller MD Status:ADM I N Location: [facility] TCU08-1 HPI - General General Date of Admission: 06/30/23 Date of Service: 06/30/23 Chief Complaint: Here for rehabilitation. HPI Narrative 06/25/2023 EDUAR CABRERA, is a 73 Female who presents to [facility] Emergency Department with fever, cough, urinary frequency. Fever, cough, urinary frequency, weakness, nausea, vomiting. Chest X-ray showed left lower lobe pneumonia. Creatinine 1.62. Urinalysis consistent with urinary tract infection, urine culture sent, bloodculture sent. Levaquin given. 06/25/2023 Admit to Hospital. Ceftriaxone, Azithromycin for complicated urinary tract infection, left lowerlobe pneumonia. Admit to ICU for hypotension. CT abdomen/pelvis showed left ureteral obstruction, left hydronephrosis, bilateral renal calculi, Dr. Caldera consulted. IV fluids for acute kidney injury. 06/25/2023 Dr. Caldera performed cystoscopy with bilateral ureteral stent insertion. 06/26/2023 IV fluids, pressors for septic shock. 06/26/2023 Echo LVSF 45%. Right ventricular systolic pressure 45mm HG. 06/26/2023 Covid-19 positive. 06/27/2023 Off pressors. Broad spectrum antibiotics for complicated urinary tract infection/pneumonia. Vancomycin PO for clostridium difficile diarrhea. 06/28/2023 Doing well. Meropenem IV for UTI/Pneumonia. Vancomycin PO for C. diff colitis. 06/29/2023 [place] for right knee pain. Meropenem to Cefdinir for UTI/Pneumonia. Vancomycin PO for C. Diff colitis. No symptoms for covid-19, no remdesivir, no steroids recommended. 06/30/2023 Admit to TCU with debility, here for rehabilitation, strengthening, prior to discharge home with family. [facility] Medical History (Updated 06/30/23 @ 21:[address] Corby Heller MD) Anemia Anxiety Asthma COVID-19 Depression Diabetes Fibromyalgia Foot arch pain Hypertension Hypothyroidism Kidney stones Osteoarthritis Thrombocytopenia Home Medications fluticasone propionate 50 mcg/actuation nasal spray,suspension 2 spray NASAL DAILY allergies 12/07/16 [History Last Taken 06/30/23] citalopram 20 mg tablet 20 mg PO DAILY DEPRESSION 04/26/21 [History Last Taken 06/30/23] levothyroxine 25 mcg tablet 25 mcg PO DAILY thyroid 04/29/21 [History Last Taken 06/30/23] lovastatin 40 mg tablet 40 mg PO QHS cholesterol 04/29/21 [History Last Taken 06/30/23] potassium chloride 10 mEq capsule,extended release 20 meq PO DAILY supplement 04/29/21 [History Last Taken 06/22/23] pioglitazone 30 mg tablet 30 mg PO DAILY DM 06/25/23 [History Last Taken 06/22/23] ropinirole 2 mg tablet 2 mg PO QHS RLS 06/25/23 [History Last Taken 06/29/23] Arthritis Pain Compound 1 click topical Q8H PRN pain 06/30/23 [History Last Taken 06/29/23] acetaminophen 325 mg tablet 650 mg (2 x 325 mg) PO Q6H PRN PRN Pain 1-10 Or Fever>100.7 #0 tabs 06/30/23 [Rx Last Taken 06/30/23] budesonide 0.5 mg/2 mL suspension for nebulization 0.5 mg (2 mL) inhalation Q12H.RT breathing #0 mL 06/30/23 [Rx Last Taken 06/30/23] cefdinir 300 mg capsule 300 mg PO Q12 infection #7 caps 06/30/23 [Rx Last Taken 06/30/23] dextromethorphan-guaifenesin 10 mg-100 mg/5 mL oral syrup 10 ml PO Q6H PRN PRN COUGH #0 mL 06/30/23 [Rx Last Taken 06/28/23] hydrocodone-acetaminophen 5-325mg 5mg-325mg 1 - 2 tab PO Q6H PRN PRN Pain Score 4-10 3 days #10 tabs 06/30/23 [Rx Last Taken 06/29/23] nystatin 100,000 unit/gram topical powder (Nyamyc) 1 applic topical BID moisture/ #0 grams 06/30/23 [Rx Last Taken 06/29/23] vancomycin 25 mg/mL oral solution (Firvanq) 125 mg (5 mL) PO Q4 antibiotic #0 mL06/30/23 [Rx Last Taken 06/30/23] Allergy/AdvReac Type Severity Reaction Status Date / Time cephalexin monohydrate Allergy Swelling Verified 06/25/23 13:46 [From Keflex] ibuprofen Allergy Swelling Verified 06/25/23 13:46 oxaprozin [From Daypro] Allergy Swelling Verified 06/25/23 13:46 tramadol HCl [From Ultram] Allergy Swelling Verified 06/25/23 13:46 celecoxib [From Celebrex] AdvReac DIZZY AND Verified 06/25/23 13:46 HURTS AROUND MY LIVER Family History Other Diabetes Hypertension Surgical History (Updated 06/30/23 @ 21:[address] Corby Heller MD) History of ureter stent Social History (Updated 06/30/23 @ 21:[address] Corby Heller MD) household members: children housing: house Smoking Status: Never smoker alcohol intake: never substance use type: does not use ROS Constitutional Constitutional: Denies chills, fever(s) or weight gain ENT HEENT: Denies headache(s), nasal congestion or nasal discharge Cardiovascular Cardiovascular: Denies chest pain or palpitations Respiratory/Chest Respiratory/Chest: Denies cough, excessive phlegm production or shortness of breath with exertion Gastrointestinal Gastrointestinal: Denies abdominal pain, nausea or vomiting Genitourinary Genitourinary: Denies dysuria Musculoskeletal Musculoskeletal: Denies joint pain or joint swelling Integumentary Integumentary: Denies rash or wounds Neurologic Neurologic: Denies focal weakness, numbness or tingling Psychiatric Psychiatric: Denies anxiety, auditory hallucinations, depression, homicidal ideation or suicidal ideation Vital Signs Vital Signs Vital Signs: 06/30/23 15:03 06/30/23 14:59 06/30/23 14:59 Temperature 97.8 F 97.8 F Temperature Source Temporal Temporal Pulse Rate 80 80 Pulse Rhythm Regular Pulse Strength Normal (2+) Respiratory Rate 18 18 Respiratory Effort Normal Non-Labored Respiratory Depth Normal Respiratory Pattern Normal Blood Pressure 122/56 H 122/56 H Blood Pressure Mean 78 78 Blood Pressure Source Monitor Monitor Blood Pressure Position Semi-Fowlers Semi-Fowlers Blood Pressure Location Right Arm Right Arm Pulse Ox 90 90 Oxygen Delivery Method Room Air Room Air Room Air Weight Weight: 126.7 kg Body Mass Index (BMI) 51.0 Physical Exam Const alert General Appearance: cooperative HEENT normocephalic Eyes PERRL and EOMs intact bilaterally Neck supple, no JVD and no carotid bruits Resp normal respiratory effort, normal air movement and clear to auscultation bilaterally Cardio regular rate and regular rhythm GI normal to inspection, nondistended, normoactive bowel sounds, non-tender and non-distended Extremity normal capillary refill General Extremity: Negative for edema Skin no rashes or lesions noted General Skin Exam: no breakdown Psych affect normal Appearance: appropriate Assessment & Plan Assessment/Plan (1) Debility: (2) Septic shock: (3) Complicated urinary tract infection: (4) Bilateral kidney stones: (5) Left lower lobe pneumonia: (6) COVID-19: (7) CARA (acute kidney injury): (8) Clostridium difficile diarrhea: (9) Asthma: (10) Depression: (11) Restless leg syndrome: (12) Hypokalemia: (13) Hypertension: PLAN: Plan 73 year old female with below past medical history hospitalized for septic shocksecondary to complicated urinary tract infection from bilateral kidney stones requiring bilateral ureteral stents, complicated by left lower lobe pneumonia, covid-19, clostridium difficile diarrhea, acute kidney injury, admitted to TCU with debility, here for rehabilitation, strengthening, prior to discharge home with family. * Debility - PT/OT. * Pain - Tylenol 1000mg q8, Arthritis 2 click tid right knee, Oxycodone 5mg q4h prn pain (1-10). * Bowel - Monitor. * Adult immunization - Administer pneumonia vaccine, covid19 vaccine, flu vaccine as appropriate. * DVT prophylaxis - Lovenox 40mg sc daily. * Hyperlipidemia - Atorvastatin 10mg qhs. * Asthma - Budesonide 0.5mg q12h. * Complicated UTI - Cefdinir 300mg Q12h thru 07/03/2023. * Depression - Citalopram 20mg daily, stable chronic assisted use, GDR not recommended. * Allergic Rhinitis - Flonase 2 sprays daily. * Cough - Robitussin DM 10mg q6h prn. * Hypothyroidism - Levothyroxine 25mcg daily. * Tinea Corporis - Nystatin powder topical bid. * Diabetes Mellitus II - Pioglitazone 30mg daily. * Hypokalemia - KCL 20meq daily. * Restless leg syndrome - Mirapex 1mg qhs. * C. Diff - Vancomycin 125mg q6 thru 07/05/2023. * Covid-19 - Asymptomatic. 06/30/232135 <Electronically signed by Corby Heller MD> Cosigner Signature (if applicable): CC: Dr. Corby Heller MD~ Signed [facility] Work Phone: [phone]) 109-457211-08-2022 NoteHNO ID: [id number] Author: Grisel Villanueva DO Service: Vascular Surgery Author Type: Physician Type: Progress Notes Filed: 08/31/2022 2:37 PM Note Text: NAME: EDUAR CABRERA [facility] NO: [id number] DATE OF SERVICE: 08/04/2022 Subjective: Eduar is here to follow up on history [...] 2. Secondary lymphedema. Reviewed the findings with Eduar. There is no concern, as it may take longer for the bruise to resolve due to her venous disease. Recommend she continue elevating and exercise as able, to and wear her compression as tolerated. She will follow up with us as needed. Grisel Villanueva D.O. KB/089 Audio #: [id number] Date Dictated: 08/17/2022 14:07:13 Date Typed: 08/24/2022 05:15:14 Date Revised: 08/24/2022 19:43:54[facility]11-08-2022 NoteHNO ID: [id number] Author: Grisel Villanueva DO Service: ? Author Type: Physician Type: Progress Notes Filed: 08/17/2022 3:07 PM Note Text: This office note has been dictated. [facility] History of Present illness Narrative* Grisel Villanueva DO - 08/04/2022 11:43 AM EST This office note has been dictated. Grisel Villanueva DO documented in [facility] encounterW[facility] HospitalDischarge summary Author Marie Caldera [facility] November 11, 2023 2:06pm Note Date/Time November 11, 2023 2:04pm [facility] Medical Records Department [address] [place] [address] Instructions for Home/Discharge Instructions 11/11/23 1403 MR#: [id number] Acct: [id number] Name: EDUAR CABRERA Rep #:[id number] : 1950 73 From: Marie Whelan PCP: Dr. Corby Heller MD Status:REG S DC Discharge Instructions Diet Discharge Diet: No restrictions Activity Discharge Activity: Return to Normal Activity Dressing / Incision Call your doctor if you observe: Fever of 101 or Higher, Inability to urinate and Inability to have a bowel movement Follow Up Care Please Follow Up With: Marie Caldera MD When: The office will call her to make follow up arrangements. Test Results: Test results from this visit will be discussed in further detail at your follow- up appointment, if applicable. Discharge Plan Admission Attending Provider: Marie Caldera Primary Care Provider: Corby Heller Chi Discharge Orders/Prescriptions Prescriptions: Continued fluticasone propionate 1 SPRAY spray,suspension 2 spray NASAL DAILY citalopram 20 mg tablet 20 mg PO QHS Patient Comments: TAKE 1/2 (ONE-HALF) OF A TABLET DAILY FOR 7 DAYS then TAKE 1 TABLET DAILY lovastatin 40 mg tablet 40 mg PO QHS Patient Comments: TAKE 1 TABLET DAILY AT BEDTIME levothyroxine 25 mcg tablet 25 mcg PO DAILY Patient Comments: TAKE 1 TABLET BY MOUTH ONCE DAILY pioglitazone 30 mg tablet 30 mg PO DAILY ropinirole 2 mg tablet 2 mg PO QHS budesonide 0.5 mg/2 mL Suspension For Nebulization 0.5 mg inhalation Q12H.RT Qty: 0 0RF metformin 500 mg tablet 500 mg PO BID ascorbic acid (vitamin C) [C-500] 500 mg tablet 500 mg PO DAILY coenzyme Q10 [Co Q-10] 100 mg capsule 100 mg PO DAILY Htobvailvmw-Fuang-OEP Complex 872-205-15-0.5 mg tablet 3 tab PO DAILY Tart Waldron Extract 1,000 mg capsule 1,000 mg PO DAILY ibuprofen [Advil] 200 mg tablet 200 mg PO PRN Probiotic 15 billion cell capsule 1 cap PO DAILY cranberry 400 mg capsule 400 mg PO DAILY Rx Instructions: administer with a meal potassium chloride [Klor-Con M20] 20 mEq Tablet,Er Particles/Crystals 20 meq PO DAILYCM 30 Days Qty: 30 0RF Referrals / Follow Up: Corby Heller Chi, MD [Primary Care Provider] - Disposition Disposition (needs filled in before D/C Order can be placed): Home, Self Care 11/11/23 1406<Electronically signed by Marie Caldera MD>Marie Caldera MD CC: Dr. Corby Heller MD ~ Signed [facility] Work Phone: Evaluation noteNo assessment information available [facility] Work Phone: Evaluation note* Diagnosis Venous (peripheral) insufficiency- Primary Unspecified venous (peripheral) insufficiency documented [facility] this encounter [facility] Diagnosis Onset Date Resolution Status Generalized weakness acute Intertriginous candidiasis a cute Kidney stones acute Osteoarthritis acute CARA (acute kidney injury) re solved Complicated urinary tract infection resolved Dehydration, mild resolved Hyponatremia resolved Left lower lobe pneumonia re solved Leukocytosis resolved Septic shock resolved Asthma acute Bilateral kidney stones acut e Chronic toe pain, left foot acute Chronic toe pain, right foot acute Clostridium difficile diarrhea acute COVID-19 acute Debility acute Depression acute Diabetes acute Generalized weakness acute Hypokalemia acute Ingrowing nail acute Restless leg syndrome acute Tinea unguium acute Hypertension chronic CARA (acute kidney injury) re solved Complicated urinary tract infection resolved Left lower lobe pneumonia re solved Septic shock resolved [facility] Work Phone: Evaluation note* Diagnosis Onset Date Resolution Status Intertriginous candidiasis a cute Kidney stones acute Osteoarthritis acute CARA (acute kidney injury) re solved Complicated urinary tract infection resolved Dehydration, mild resolved Generalized weakness resolve d Hyponatremia resolved Left lower lobe pneumonia re solved Leukocytosis resolved Septic shock resolved Asthma acute Debility acute Depression acute Diabetes acute Hypokalemia acute Restless leg syndrome acute Hypertension chronic CARA (acute kidney injury) re solved Bilateral kidney stones reso lved Chronic toe pain, left foot resolved Chronic toe pain, right foot resolved Clostridium difficile diarrhea resolved Complicated urinary tract infection resolved COVID-19 resolved Generalized weakness resolve d Ingrowing nail resolved Left lower lobe pneumonia re solved Septic shock resolved Tinea unguium resolved [facility] Work Phone: Evaluation note* Diagnosis Onset Date Resolution Status Asthma acute Debility acute Depression acute Diabetes acute Hypokalemia acute Restless leg syndrome acute Hypertension chronic CARA (acute kidney injury) re solved Bilateral kidney stones reso lved Chronic toe pain, left foot resolved Chronic toe pain, right foot resolved Clostridium difficile diarrhea resolved Complicated urinary tract infection resolved COVID-19 resolved Generalized weakness resolve d Ingrowing nail resolved Left lower lobe pneumonia re solved Septic shock resolved Tinea unguium resolved [facility] Work Phone: Evaluation note* Diagnosis Onset Date Resolution Status Kidney stones acute [facility] Work Phone: Hospital Discharge instructions Additional Instructions Discharge home with family 07/15/2023, [facility] PT/OT/[place]/SW. [facility] Work Phone: Hospital Discharge instructions Additional Instructions Implant Used?: [facility] Work Phone: Hospital Discharge instructions Additional Instructions [facility] Discharge instructions Additional Instructions Please follow-up to the outpatient center to receive your IM injection of ertapenem 1 g. You have 5 more days on your standing order.[facility] Work Phone: Reason for referral (narrative)No reason for referral information availableWC[facility] Work Phone: Summary Purpose Family History No Family History Records Found Relationship Condition Age at Onset Recorded Date/T nic Not Specified Diabetes mellitus Unknown Hypertension Unknown Advance Directives No Advanced Directives Records Found Advance Directive Response Recorded Date/ Time Living Will No June 30 4:27am Power of Club Lounge Attendant No June 30 021 4:27am Advance Directive Response Recorded Date/ Time Living Will No July 12 2:44pm Power of Club Lounge Attendant No July 12, 2022 2:44pm Advance Directive Response Recorded Date/ Time Living Will No July 12 1:44pm Power of Club Lounge Attendant No July 12, 2022 1:44pm Advance Directive Response Recorded Date/ Time Living Will No July 01 1:50pm Power of Club Lounge Attendant No July 01 023 1:50pm Advance Directive Response Recorded Date/ Time Living Will No August 02 1:41pm Power of Club Lounge Attendant No August 02, 2023 1:41pm Advance Directive Response Recorded Date/ Time Living Will No November 03 9:55am Power of Club Lounge Attendant No November 03, 2023 9:55am Advance Directive Response Recorded Date/ Time Living Will No November 23 8:34am Power of Club Lounge Attendant No November 23, 2023 8:34am Advance Directive Response Recorded Date/ Time Living Will No November 23 9:34am Power of Club Lounge Attendant No November 23, 2023 9:34am Advance Directive Response Recorded Date/ Time Living Will No January 21, 2024 9:21am Power of Club Lounge Attendant No January 20 9:21am Advance Directive Response Recorded Date/ Time Living Will No July 19 10:35am Power of Club Lounge Attendant No July 19, 2024 10:35am Advance Directive Response Recorded Date/ Time Living Will No December 23, 2024 1:09pm Do you have a Healthcare Power of Club Lounge Attendant? No December 23, 2024 1:09pm Advance Directive Response Recorded Date/ Time Living Will No December 23, 2024 1:09pm Do you have a Healthcare Power of Club Lounge Attendant? No December 23, 2024 1:09pm Living Will Yes January 01, 2025 3:44pm Do you have a Healthcare Power of Club Lounge Attendant? Yes January 01, 2025 3:44pm Name of Medical Power of Club Lounge Attendant Rosemarie January 01, 2025 3:44pm Chief Complaint and Reason for Visit Chief Complaint SCREENING Chief Complaint SOB Chief Complaint SOB CAD Chief Complaint COMPLICATED UTI COMPLICATED UTI COMPLICATED UTI COMPLICATED UTI COMPLICATED UTI COMPLICATED UTI COMPLICATED UTI COMPLICATED UTI COMPLICATED UTI COMPLICATED UTI Reason for Visit Generalized weakness Intertriginous candidiasis Kidney stones Osteoarthritis CARA (acute kidney injury) Complicated urinary tract infection Dehydration, mild Hyponatremia Left lower lobe pneumonia Leukocytosis Septic shock Asthma Bilateral kidney stones Chronic toe pain, left foot Chronic toe pain, right foot Clostridium difficile diarrhea COVID-19 Debility Depression Diabetes Generalized weakness Hypokalemia Ingrowing nail Restless leg syndrome Tinea unguium Hypertension CARA (acute kidney injury) Complicated urinary tract infection Left lower lobe pneumonia Septic shock Chief Complaint COMPLICATED UTI COMPLICATED UTI COMPLICATED UTI COMPLICATED UTI COMPLICATED UTI COMPLICATED UTI COMPLICATED UTI COMPLICATED UTI COMPLICATED UTI COMPLICATED UTI Reason for Visit Intertriginous clem diasis Kidney stones Osteoarthritis CARA (acute kidney injury) Complicated urinary tract infection Dehydration, mild Generalized weakness Hyponatremia Left lower lobe pneumonia Leukocytosis Septic shock Asthma Debility Depression Diabetes Hypokalemia Restless leg syndrome Hypertension CARA (acute kidney injury) Bilateral kidney stones Chronic toe pain, left foot Chronic toe pain, right foot Clostridium difficile diarrhea Complicated urinary tract infection COVID-19 Generalized weakness Ingrowing nail Left lower lobe pneumonia Septic shock Tinea unguium Chief Complaint COMPLICATED UTI COMPLICATED UTI COMPLICATED UTI COMPLICATED UTI COMPLICATED UTI COMPLICATED UTI COMPLICATED UTI COMPLICATED UTI COMPLICATED UTI COMPLICATED UTI NEED ORDER Reason for Visit Intertriginous clem diasis Kidney stones Osteoarthritis CARA (acute kidney injury) Complicated urinary tract infection Dehydration, mild Generalized weakness Hyponatremia Left lower lobe pneumonia Leukocytosis Septic shock Asthma Debility Depression Diabetes Hypokalemia Restless leg syndrome Hypertension CARA (acute kidney injury) Bilateral kidney stones Chronic toe pain, left foot Chronic toe pain, right foot Clostridium difficile diarrhea Complicated urinary tract infection COVID-19 Generalized weakness Ingrowing nail Left lower lobe pneumonia Septic shock Tinea unguium Chief Complaint COMPLICATED UTI COMPLICATED UTI COMPLICATED UTI COMPLICATED UTI COMPLICATED UTI COMPLICATED UTI COMPLICATED UTI COMPLICATED UTI COMPLICATED UTI COMPLICATED UTI NEED ORDER ESWL Reason for Visit Intertriginous clem diasis Kidney stones Osteoarthritis CARA (acute kidney injury) Complicated urinary tract infection Dehydration, mild Generalized weakness Hyponatremia Left lower lobe pneumonia Leukocytosis Septic shock Asthma Debility Depression Diabetes Hypokalemia Restless leg syndrome Hypertension CARA (acute kidney injury) Bilateral kidney stones Chronic toe pain, left foot Chronic toe pain, right foot Clostridium difficile diarrhea Complicated urinary tract infection COVID-19 Generalized weakness Ingrowing nail Left lower lobe pneumonia Septic shock Tinea unguium Chief Complaint COMPLICATED UTI NEED ORDER ESWL ESWL Reason for Visit Asthma Debility Depression Diabetes Hypokalemia Restless leg syndrome Hypertension CARA (acute kidney injury) Bilateral kidney stones Chronic toe pain, left foot Chronic toe pain, right foot Clostridium difficile diarrhea Complicated urinary tract infection COVID-19 Generalized weakness Ingrowing nail Left lower lobe pneumonia Septic shock Tinea unguium Chief Complaint COMPLICATED UTI NEED ORDER ESWL ESWL ESWL,Cystocopy Insertion Stent STEN Reason for Visit Asthma Debility Depression Diabetes Hypokalemia Restless leg syndrome Hypertension CARA (acute kidney injury) Bilateral kidney stones Chronic toe pain, left foot Chronic toe pain, right foot Clostridium difficile diarrhea Complicated urinary tract infection COVID-19 Generalized weakness Ingrowing nail Left lower lobe pneumonia Septic shock Tinea unguium Chief Complaint ESWL ESWL ESWL,Cystocopy Insertion Stent STEN ESWL RIGHT RENAL, LEFT URETERAL Chief Complaint ESWL ESWL,Cystocopy Insertion Stent STEN ESWL RIGHT RENAL, LEFT URETERAL Calculus of kidney Chief Complaint ESWL ESWL,Cystocopy Insertion Stent STEN ESWL RIGHT RENAL, LEFT URETERAL Calculus of kidney KUB Chief Complaint ESWL ESWL,Cystocopy Insertion Stent STEN ESWL RIGHT RENAL, LEFT URETERAL Calculus of kidney KUB EORDER cysto, Ureteroscopy, laser lithotri Reason for Visit Kidney stones Chief Complaint Admit Date BILATERAL KNEES August 11, 2024 11:33am BILATERAL KNEES August 18, 2024 11:31am PAIN BILAT KIDNEY STONES August 25, 2024 1:02pm KUB September 11, 2024 11:21am Reason for Visit Admit Date Osteoarthritis of knees, bilateral Novem 2023 11:33am Osteoarthritis of knees, bilateral Novem 2023 11:31am Chief Complaint Admit Date PAIN BILAT KIDNEY STONES August 25, 2024 1:02pm KUB September 11, 2024 11:21am ERTAPENEM IM December 22, 2024 11: 41am Chief Complaint Admit Date PAIN BILAT KIDNEY STONES August 25, 2024 1:02pm KUB September 11, 2024 11:21am ERTAPENEM IM December 22, 2024 11: 41am NEED ATB SHOTS December 23, 2024 12: 14pm Chief Complaint Admit Date KUB September 11, 2024 11:21am ERTAPENEM IM December 22, 2024 11: 41am NEED ATB SHOTS December 23, 2024 12: 14pm ERTAPENEM IM December 24, 2024 3:1 3pm Chief Complaint Admit Date KUB September 11, 2024 11:21am ERTAPENEM IM December 22, 2024 11: 41am NEED ATB SHOTS December 23, 2024 12: 14pm ERTAPENEM IM December 24, 2024 3:1 3pm ERTAPENEM IM December 25, 2024 11: 47am Chief Complaint Admit Date KUB September 11, 2024 11:21am ERTAPENEM IM December 22, 2024 11: 41am NEED ATB SHOTS December 23, 2024 12: 14pm ERTAPENEM IM December 24, 2024 3:1 3pm ERTAPENEM IM December 25, 2024 11: 47am ERTAPENEM IM December 26, 2024 12:0 9pm Chief Complaint Admit Date KUB September 11, 2024 11:21am ERTAPENEM IM December 22, 2024 11: 41am NEED ATB SHOTS December 23, 2024 12: 14pm ERTAPENEM IM December 24, 2024 3:1 3pm ERTAPENEM IM December 25, 2024 11: 47am ERTAPENEM IM December 26, 2024 12:0 9pm ERTAPENEM IM December 27, 2024 10:1 5am Chief Complaint Admit Date KUB September 11, 2024 11:21am ERTAPENEM IM December 22, 2024 11: 41am NEED ATB SHOTS December 23, 2024 12: 14pm ERTAPENEM IM December 24, 2024 3:1 3pm ERTAPENEM IM December 25, 2024 11: 47am ERTAPENEM IM December 26, 2024 12:0 9pm ERTAPENEM IM December 27, 2024 10:1 5am ERTAPENEM IM December 28, 2024 2:58 pm Chief Complaint Admit Date ERTAPENEM IM December 22, 2024 11: 41am NEED ATB SHOTS December 23, 2024 12: 14pm ERTAPENEM IM December 24, 2024 3:1 3pm ERTAPENEM IM December 25, 2024 11: 47am ERTAPENEM IM December 26, 2024 12:0 9pm ERTAPENEM IM December 27, 2024 10:1 5am ERTAPENEM IM December 28, 2024 2:58 pm lower extrem January 01, 2025 2:44 pm CYST L CHEEK January 18, 2025 2:3 2pm LEFT CHEEK BIOPSY January 18, 2025 4:3 1pm 1 W FU January 26, 2025 2:03pm 2 ORDERING DOCTORS January 30, 2025 12:35p m Reason for Visit Admit Date Neoplasm of uncertain behavior of skin o f face January 18, 2025 2:32pm Neoplasm of uncertain behavior of skin o f face January 26, 2025 2:03pm Chief Complaint Admit Date ERTAPENEM IM March 28th, 2025 11: 41am NEED ATB SHOTS December 23, 2024 12: 14pm ERTAPENEM IM December 24, 2024 3:1 3pm ERTAPENEM IM December 25, 2024 11: 47am ERTAPENEM IM December 26, 2024 12:0 9pm ERTAPENEM IM December 27, 2024 10:1 5am ERTAPENEM IM December 28, 2024 2:58 pm lower extrem January 01, 2025 2:44 pm CYST L CHEEK January 18, 2025 2:3 2pm LEFT CHEEK BIOPSY January 18, 2025 4:3 1pm 1 W FU January 26, 2025 2:03pm 2 ORDERING DOCTORS January 30, 2025 12:35p m SCREENING/POST DANG February 15, 2025 3:42p m Additional Source Comments INFORMATION SOURCE (unrecogn ized section and content) DATE CREATED AUTHOR 07/26/2019 [facility] DATE CREATED AUTHOR AUTHOR'S ORGANIZ ATION 09/01/2022 [facility] DATE CREATED AUTHOR AUTHOR'S ORGANIZ ATION 05/06/2025 [facility] Goals (unrecognized section and content) Goals may be documented in a n alternate sectionGoals may be documented in an alternate sectionGoals may be documented in an alternate sectionGoals may be documented in an alternate sectionGoals may be documented in an alternate sectionGoals may be documented in an alternate sectionGoals may be documented in an alternate sectionGoals may be documented in an alternate sectionGoals may be documented in an alternate sectionGoals may be documented in an alternate sectionGoals may be documented in an alternate sectionGoals may be documented in an alternate sectionGoals may be documented in an alternate sectionGoals may be documented in an alternate sectionGoals may be documented in an alternate sectionGoals may be documented in an alternate sectionGoals may be documented in an alternate sectionGoals may be documented in an alternate sectionGoals may be documented in an alternate sectionGoals may be documented in an alternate sectionGoals may be documented in an alternate sectionGoals may be documented in an alternate sectionGoals may be documented in an alternate sectionGoals may be documented in an alternate section Source Comments (unrecognize d section and content) In the event this informatio n is protected by the Federal Confidentiality of Alcohol and Drug Abuse Patient Records regulations: The Federal rules restrict any use of the information to criminally investigate or prosecute any alcohol or drug abuse patient.[facility] Reason for Visit (unrecogniz ed section and content) Reason Comments Established Patient Care Teams (unrecognized sec tion and content) Manager Pacu Relationship Specialty Start Date End Date Corby Heller Chi PCP - General Family Medicine 06/09/12 Team Status: Active Member Role Status Dates Dr. Corby Heller MD Family Provider Active Dr. Corby Heller MD Primary Care Provider Active Team Status: Inactive Member Role Status Dates Dr. Corby Heller MD Primary Care Provider, Attending Provider Active Team Status: Inactive Member Role Status Dates Dr. Corby Heller MD Primary Care Provi jairon, Attending Provider, Referring Provider Active Team Status: Active Member Role Status Dates Dr. Corby Heller MD Primary Care Provider Active Dr. Reji Morillo MD Emergency Provider Active Dr. Clementine Prieto DO Admit Provider, Attending Provide r, Other Provider Active Team Status: Active Member Role Status Dates Dr. Corby Heller MD Primary Care Provider Active Dr. Reji Morillo MD Emergency Provider Active Dr. Clementine Prieto DO Admit Provider, Other Provider Ac tive Dr. Juan Cerda MD Attending Provider Active Team Status: Active Member Role Status Dates Dr. Corby Heller MD Primary Care Provider Active Dr. Reji Morillo MD Emergency Provider Active Dr. Clementine Prieto DO Admit Provider, Other Provider Ac tive Dr. Bertram Chatterjee MD Attending Provider, Other Provid er Active Dr. Lucas Clemons DO Other Provider Active Dr. Josh Petersen MD Other Provider Active Dr. Conner Marie MD Other Provider Active Dr. Cameron Almazan MD Other Provider Active Rhonda Victoria TELEPHONE APPOINTMENT CLERK, TELEPHONE APPOINTMENT CLERK-C Other Provider Active Dr. Zenon Martinez MD Other Provider Active Team Status: Active Member Role Status Dates Dr. Corby Heller MD Primary Care Provider Active Dr. Levi Ramirez MD Attending Provider Active Team Status: Active Member Role Status Dates Dr. Corby Heller MD Primary Care Provider Active Dr. Reji Morillo MD Emergency Provider Active Dr. Clementine Prieto , DO Admit Provider, Other Provider Ac tive Dr. Bertram Chatterjee MD Other Provider Active Dr. Lucas Clemons , Other Provider Active Dr. Josh Petersen MD Other Provider Active Dr. Conner Marie MD Other Provider Active Dr. Cameron Almazan MD Other Provider Active Rhonda Victoria TELEPHONE APPOINTMENT CLERK, TELEPHONE APPOINTMENT CLERK-C Other Provider Active Dr. Zenon Martinez MD Attending Provider, Other Provider Active Team Status: Active Member Role Status Dates Dr. Corby Heller MD Primary Care Provider Active Dr. Reji Morillo MD Emergency Provider Active Dr. Clementine Prieto , DO Admit Provider, Other Provider Ac tive Dr. Zenon Martinez MD Other Provider Active Dr. Bertram Chatterjee MD Attending Provider, Other Provid er Active Dr. Lucas Clemons , Other Provider Active Dr. Josh Petesren MD Other Provider Active Dr. Conner Marie MD Other Provider Active Dr. Cameron Almazan MD Other Provider Active Rhonda Victoria TELEPHONE APPOINTMENT CLERK, TELEPHONE APPOINTMENT CLERK-C Other Provider Active Team Status: Active Member Role Status Dates Dr. Corby Heller MD Primary Care Provider Active Dr. Reji Morillo MD Emergency Provider Active Dr. Clementine Prieto , Admit Provider, Other Provider Ac tive Dr. Zenon Martinez MD Attending Provider, Other Provider Active Dr. Bertram Chatterjee MD Other Provider Active Dr. Lucas Clemons , Other Provider Active Dr. Josh Petersen MD Other Provider Active Dr. Conner Marie MD Other Provider Active Dr. Cameron Almazan MD Other Provider Active Rhonda Victoria TELEPHONE APPOINTMENT CLERK, TELEPHONE APPOINTMENT CLERK-C Other Provider Active Team Status: Active Member Role Status Dates Dr. Corby Heller MD Primary Care Provider Active Dr. Reji Morillo MD Emergency Provider Active Dr. Clementine Prieto , Admit Provider, Other Provider Ac tive Dr. Bertram Chatterjee MD Other Provider Active Dr. Lucas Clemons , DO Other Provider Active Dr. Josh Petersen MD Other Provider Active Dr. Conner Marie MD Other Provider Active Dr. Cameron Almazan MD Other Provider Active Rhonda Victoria TELEPHONE APPOINTMENT CLERK, TELEPHONE APPOINTMENT CLERK-C Other Provider Active Dr. Alonso Bautista , DO Attending Provider, Other Pro vider Active Dr. Zenon Martinez MD Other Provider Active Team Status: Inactive Member Role Status Dates Dr. Corby Heller MD Primary Care Provider Active Dr. Reji Morillo MD Emergency Provider Active Dr. Clementine Prieto , DO Admit Provider, Other Provider Ac tive Dr. Bertram Chatterjee MD Other Provider Active Dr. Lucas Clemons , DO Other Provider Active Dr. Josh Petersen MD Other Provider Active Dr. Conner Marie MD Other Provider Active Dr. Cameron Almazan MD Other Provider Active Rhonda Victoria TELEPHONE APPOINTMENT CLERK, TELEPHONE APPOINTMENT CLERK-C Other Provider Active Dr. Alonso Bautista , DO Attending Provider Active Dr. Zenon Martinez MD Other Provider Active Team Status: Inactive Member Role Status Dates Dr. Corby Heller MD Primary Care Provi jairon, Admit Provider, Attending Provider, Referring Provider Active Dr. Luis Bhardwaj DPM Other Provider Active Team Status: Active Member Role Status Dates Dr. Corby Heller MD Primary Care Provider Active Dr. Reji Morillo MD Emergency Provider Active Dr. Clementine Prieto , DO Admit Provider, Other Provider Ac tive Dr. Bertram Chatterjee MD Attending Provider, Other Provid er Active Dr. Lucas Clemons , DO Other Provider Active Dr. Josh Petersen MD Other Provider Active Dr. Conner Marie MD Other Provider Active Dr. Cameron Almazan MD Other Provider Active Rhonda Victoria TELEPHONE APPOINTMENT CLERK, TELEPHONE APPOINTMENT CLERK-C Other Provider Active Dr. Zenon Martinez MD Other Provider Active Dr. Alonso Bautista , Referring Provider Active Team Status: Active Member Role Status Dates Dr. Corby Heller MD Primary Care Provider Active Dr. Reji Morillo MD Emergency Provider Active Dr. Clementine Prieto , DO Admit Provider, Other Provider Ac tive Dr. Zenon Martinez MD Other Provider Active Dr. Bertram Chatterjee MD Attending Provider, Other Provid er Active Dr. Lucas Clemons , DO Other Provider Active Dr. Josh Petersen MD Other Provider Active Dr. Conner Marie MD Other Provider Active Dr. Cameron Almazan MD Other Provider Active Rhonda Victoria TELEPHONE APPOINTMENT CLERK, TELEPHONE APPOINTMENT CLERK-C Other Provider Active Dr. Alonso Bautista DO Referring Provider Active Team Status: Inactive Member Role Status Dates Dr. Corby Heller MD Primary Care Provider Active Dr. Marie Caldera MD Attending Provider, Referring P rovider Active Team Status: Inactive Member Role Status Dates Dr. Corby Heller MD Primary Care Provider Active Dr. Marie Caldera MD Attending Provider Active Team Status: Active Member Role Status Dates Dr. Corby Heller MD Primary Care Provider Active Dr. Marie Caldera MD Attending Provider, Referring P rovider Active Team Status: Inactive Member Role Status Dates Dr. Corby Heller MD Primary Care Provider, Referring Provider Active Dr. Marie Caldera MD Attending Provider Active Team Status: Active Member Role Status Dates Dr. Corby Heller MD Primary Care Provider Active Team Status: Inactive Member Role Status Dates Dr. Corby Heller MD Primary Care Provider Active Start: August 11, 2024 End: August 11, 2024 Dr. Corby Heller MD Referring Provider Active Start: August 11, 2024 End: August 11, 2024 SAMANTHA Suero Attending Provider Active Star t: August 11, 2024 End: August 11, 2024 Team Status: Inactive Member Role Status Dates Dr. Corby Heller MD Primary Care Provider Active Start: August 18, 2024 End: August 18, 2024 Dr. Corby Heller MD Referring Provider Active Start: August 18, 2024 End: August 18, 2024 SAMANTHA Suero Attending Provider Active Star t: August 18, 2024 End: August 18, 2024 Team Status: Inactive Member Role Status Dates Dr. Corby Heller MD Primary Care Provider Active Start: August 25, 2024 End: August 25, 2024 Dr. Marie Caldera MD Attending Provider Active Start: August 25, 2024 End: August 25, 2024 Dr. Marie Caldera MD Referring Provider Active Start: August 25, 2024 End: August 25, 2024 Team Status: Inactive Member Role Status Dates Dr. Corby Heller MD Primary Care Provider Active Start: September 11, 2024 End: September 11, 2024 Dr. Marie Caldera MD Attending Provider Active Start: September 11, 2024 End: September 11, 2024 Dr. Marie Caldera MD Referring Provider Active Start: September 11, 2024 End: September 11, 2024 Team Status: Inactive Member Role Status Dates Dr. Corby Heller MD Primary Care Provider Active Start: November 23, 2024 End: November 23, 2024 Dr. Corby Heller MD Attending Provider Active Start: November 23, 2024 End: November 23, 2024 Team Status: Active Member Role Status Dates Dr. Corby Heller MD Primary Care Provider Active Start: December 18, 2024 Dr. Corby Heller MD Attending Provider Active Start: December 18, 2024 Dr. Corby Heller MD Referring Provider Active Start: December 18, 2024 Team Status: Inactive Member Role Status Dates Dr. Corby Heller MD Primary Care Provider Active Start: December 22, 2024 End: December 22, 2024 Dr. Rob Krishnamurthy MD Attending Provider Active Start: December 22, 2024 End: December 22, 2024 Dr. Rob Krishnamurthy MD Referring Provider Active Start: December 22, 2024 End: December 22, 2024 Team Status: Inactive Member Role Status Dates Dr. Corby Heller MD Primary Care Provider Active Start: December 23, 2024 End: December 23, 2024 Dr. Dom Epstein MD Emergency Provider Active S tart: December 23, 2024 End: December 23, 2024 Team Status: Inactive Member Role Status Dates Dr. Corby Heller MD Primary Care Provider Active Start: December 24, 2024 End: December 24, 2024 Dr. Rob Krishnamurthy MD Attending Provider Active Start: December 24, 2024 End: December 24, 2024 Dr. Rob Krishnamurthy MD Referring Provider Active Start: December 24, 2024 End: December 24, 2024 Team Status: Inactive Member Role Status Dates Dr. Corby Heller MD Primary Care Provider Active Start: December 18, 2024 End: December 18, 2024 Dr. Corby Heller MD Attending Provider Active Start: December 18, 2024 End: December 18, 2024 Dr. Corby Heller MD Referring Provider Active Start: December 18, 2024 End: December 18, 2024 Team Status: Active Member Role Status Dates Dr. Corby Heller MD Primary Care Provider Active Start: December 25, 2024 Dr. Rob Krishnamurthy MD Attending Provider Active Start: December 25, 2024 Dr. Rob Krishnamurthy MD Referring Provider Active Start: December 25, 2024 Team Status: Inactive Member Role Status Dates Dr. Corby Helelr MD Primary Care Provider Active Start: December 25, 2024 End: December 25, 2024 Dr. Rob Krishnamurthy MD Attending Provider Active Start: December 25, 2024 End: December 25, 2024 Dr. Rob Krishnamurthy MD Referring Provider Active Start: December 25, 2024 End: December 25, 2024 Team Status: Inactive Member Role Status Dates Dr. Corby Heller MD Primary Care Provider Active Start: December 26, 2024 End: December 26, 2024 Dr. Rob Krishnamurthy MD Attending Provider Active Start: December 26, 2024 End: December 26, 2024 Dr. Rob Krishnamurthy MD Referring Provider Active Start: December 26, 2024 End: December 26, 2024 Team Status: Inactive Member Role Status Dates Dr. Corby Heller MD Primary Care Provider Active Start: December 23, 2024 End: December 23, 2024 Dr. Dom Epstein MD Attending Provider Active S tart: December 23, 2024 End: December 23, 2024 Dr. Dom Epstein MD Emergency Provider Active S tart: December 23, 2024 End: December 23, 2024 Team Status: Inactive Member Role Status Dates Dr. Corby Heller MD Primary Care Provider Active Start: December 27, 2024 End: December 27, 2024 Dr. Rob Krishnamurthy MD Attending Provider Active Start: December 27, 2024 End: December 27, 2024 Dr. Rob Krishnamurthy MD Referring Provider Active Start: December 27, 2024 End: December 27, 2024 Team Status: Inactive Member Role Status Dates Dr. Corby Heller MD Primary Care Provider Active Start: December 28, 2024 End: December 28, 2024 Dr. Rob Krishnamurthy MD Attending Provider Active Start: December 28, 2024 End: December 28, 2024 Dr. Rob Krishnamurthy MD Referring Provider Active Start: December 28, 2024 End: December 28, 2024 Team Status: Inactive Member Role Status Dates Dr. Corby Heller MD Primary Care Provider Active Start: January 01, 2025 End: January 01, 2025 Dr. Evans Blankenship DO Attending Provider Active Start: January 01, 2025 End: January 01, 2025 Dr. Evans Blankenship DO Emergency Provider Active Start: January 01, 2025 End: January 01, 2025 Team Status: Inactive Member Role Status Dates Dr. Corby Heller MD Primary Care Provider Active Start: January 18, 2025 End: January 18, 2025 Dr. Corby Heller MD Referring Provider Active Start: January 18, 2025 End: January 18, 2025 Dr. Rob Weinberg MD Attending Provider Active Start: January 18, 2025 End: January 18, 2025 Team Status: Inactive Member Role Status Dates Dr. Corby Heller MD Primary Care Provider Active Start: January 18, 2025 End: January 18, 2025 Dr. Rob Weinberg MD Attending Provider Active Start: January 18, 2025 End: January 18, 2025 Dr. Rob Weinberg MD Referring Provider Active Start: January 18, 2025 End: January 18, 2025 Team Status: Inactive Member Role Status Dates Dr. Corby Heller MD Primary Care Provider Active Start: January 26, 2025 End: January 26, 2025 Dr. Corby Heller MD Referring Provider Active Start: January 26, 2025 End: January 26, 2025 Dr. Rob Weinberg MD Attending Provider Active Start: January 26, 2025 End: January 26, 2025 Team Status: Inactive Member Role Status Dates Dr. Corby Heller MD Primary Care Provider Active Start: January 30, 2025 End: January 30, 2025 Dr. Corby Heller MD Referring Provider Active Start: January 30, 2025 End: January 30, 2025 Dr. Bella Prieto DO Attending Provider Active Start: January 30, 2025 End: January 30, 2025 Dr. Bella Prieto DO Other Provider Active Sta rt: January 30, 2025 End: January 30, 2025 Team Status: Inactive Member Role Status Dates Dr. Corby Heller MD Primary Care Provider Active Start: February 15, 2025 End: February 15, 2025 Dr. Corby Heller MD Attending Provider Active Start: February 15, 2025 End: February 15, 2025 Dr. Corby Heller MD Referring Provider Active Start: February 15, 2025 End: February 15, 2025 FOR RECORDS PERTAINING TO PATIENTS WHO ARE [...] BE BASED ON THE PRIMARY CLINICAL RECORDS. [facility] [employer] [facility]. provides no warranty or guarantee of the accuracy or completeness of information in this document.
--- NOTE | 2025-05-10 20:40 | ECHOCS_ITS ---
Reason For Study Reason For Study: ARRHYTHMIA Procedure This was a 2D Doppler, Color Flow transthoracic echocardiogram. The study was technically difficult. The study was technically limited. Due to body habitus & debility. The patient was scanned supine. Exam performed portable in patient room. Left Ventricle Normal LV size. Normal left ventricular thickness. Unable to assess diastolic dysfunction. Contrast was utilized demonstrating no segmental wall motion abnormalities and unable to assess diastolic function due to mitral annular calcification. Right Ventricle Normal RV size. The right ventricle is normal in size, function, and thickness. Atria Normal left atrium. Normal right atrium. Mitral Valve Diffuse mitral valve thickening with moderate mitral annular calcifications but only mild regurgitation There is evidence of mild mitral valve stenosis with a mean gradient of 4 mmHg peak gradient 11 mmHg at a heart rate regular and 80 bpm. Tricuspid Valve Trivial tricuspid valve insufficiency. Unable to estimate RV systolic pressure due to inadequate jet, pulmonary artery pressure probably normal. However IVC is mildly dilated with normal collapsibility. Aortic Valve The aortic valve is not well visualized in the short axis view. Cannot fully determine the trileaflet structure of the aortic valve but no definitive stenosis noted. Great Vessels Normal sized aortic root. The inferior vena cava is dilated. Inferior vena cava collapse with respiration. Pericardium/Pleural No pericardial effusion. Medication Diluted definity 1.5ml given slow IV push to enhance endocardial definition. MMode/2D Measurements & Calculations LVIDd: 4.6 cm IVSd: 0.87 cm Ao root diam: 3.1 cm LVIDs: 2.7 cm LVPWd: 0.84 cm FS: 40.5 % LVAd ap4: 25.9 cm2 LVAd ap2: 22.4 cm2 SV(MOD-sp4): 46.6 ml LVLd ap4: 7.5 cm LVLd ap2: 7.4 cm SI(MOD-sp4): 22.6 ml/m2 EDV(MOD-sp4): 72.4 ml EDV(MOD-sp2): 54.6 ml EDV(sp4-el): 75.7 ml EDV(sp2-el): 57.0 ml LVAs ap4: 13.8 cm2 LVAs ap2: 10.7 cm2 LVLs ap4: 6.4 cm LVLs ap2: 5.8 cm ESV(MOD-sp4): 25.8 ml ESV(MOD-sp2): 16.4 ml ESV(sp4-el): 25.2 ml ESV(sp2-el): 16.9 ml EF(MOD-sp4): 64.3 % EF(MOD-sp2): 70.1 % EF(sp4-el): 66.7 % SV(MOD-sp2): 38.3 ml SV(sp4-el): 50.5 ml LA dimension(2D): 4.6 cm SI(MOD-sp2): 18.5 ml/m2 Time Measurements MV dec time: 0.24 sec Doppler Measurements & Calculations MV E max eben: 122.0 cm/sec Lat Peak E' Eben: 8.2 cm/sec Med Peak E' Eben: 8.2 cm/sec MV A max eben: 158.6 cm/sec E/E' lat: 14.9 E/E' med: 14.9 MV E/A: 0.77 MV V2 max: 166.1 cm/sec MV P1/2t max eebn: 127.6 cm/sec Ao V2 max: 140.5 cm/sec MV max P.0 mmHg MV P1/2t: 67.2 msec Ao max P.9 mmHg MV V2 mean: 104.3 cm/sec Ao V2 mean: 106.0 cm/sec MV mean P.8 mmHg MV dec slope: 555.7 cm/sec2 Ao mean P.8 mmHg MV V2 VTI: 41.5 cm MVA(P1/2t): 3.3 cm2 Ao V2 VTI: 31.5 cm AV (velocity ratio): 0.61 LV V1 max: 110.6 cm/sec PA V2 max: 157.3 cm/sec LV V1 max P.9 mmHg PA V2 mean: 109.7 cm/sec LV V1 mean P.0 mmHg LV V1 mean: 83.5 cm/sec LV V1 VTI: 19.2 cm ECHO/Echo Complete W/ Contrast Interpretation Summary Normal LV size. Normal left ventricular thickness. Contrast was utilized demonstrating no segmental wall motion abnormalities and unable to assess diastolic function due to mitral annular calcification The right ventricle is normal in size, function, and thickness. Diffuse mitral valve thickening with moderate mitral annular calcifications but only mild regurgitation There is evidence of mild mitral valve stenosis with a mean gradient of 4 mmHg peak gradient 11 mmHg at a heart rate regular and 80 bpm Cannot fully determine the trileaflet structure of the aortic valve but no defi nitive stenosis noted Cannot assess right-sided pressures accurately, however IVC is mildly dilated w ith normal collapsibility Ordering Physician: Holly Lopez Referring Physician: Corby Heller Chi Performed By: Rose Marie Greenwood, ESHA, RVT
--- NOTE | 2025-05-10 21:49 | PCM.RX.CS ---
Consult Antibiotic Management Pharmacy has been consulted to manage selected antibiotic: Vancomycin Type of Intervention Type of Consult: New start Suspected Infection Suspected Infection: Skin/Soft tissue Labs Labs: Sodium 138 mmol/L (133-145) 05/10/25 14:55 Potassium 3.9 mmol/L (3.3-5.1) 05/10/25 14:55 Chloride 101 mmol/L (98-108) 05/10/25 14:55 Carbon Dioxide 23.5 mmol/L (21.0-32.0) 05/10/25 14:55 Anion Gap 14 (5-15) 05/10/25 14:55 BUN 30 mg/dL (4-19) H 05/10/25 14:55 Creatinine 1.01 mg/dL (0.70-1.20) 05/10/25 14:55 Est GFR (MDRD) Non-Af 58 (>60) L 05/10/25 14:55 BUN/Creatinine Ratio 29.8 RATIO (10-20) H 05/10/25 14:55 Glucose 152 mg/dL (70-99) H 05/10/25 14:55 Dosing Weight Weight used for dosin.3 kg Estimated Creatinine Clearance Estimated Creatinine Clearance: 58 Goal Trough Goal Trough: 15-20 mcg/mL Pharmacy Plan for Drug Dosing Pharmacy Plan for Drug Dosing: Pharmacy Service will continue to monitor and adjust dosing as required. Follow-Up Labs Follow-Up Labs: Trough: Vancomycin Date/Time Labs Ordered Labs to be done on [date and time ordered]: 05/12/25 @0500
[2025-05-10] MEDS: 0.9% Normal Saline (1000mL) 1,000 ML 50 ML IV (22:01)
[2025-05-10] MEDS: MELATONIN 10 MG TABLET PO (22:17)
[2025-05-10] MEDS: Piperacil/Tazobactam 3.375 GM in 0.9% Normal Saline (50mL MB+) 50 ML IV (23:12)
[2025-05-11] VITALS (7 sets, daily range): BP systolic 100–129; BP diastolic 52–59; PULSE 72–91; RESP 16–20; TEMP 36.2–37; O2SAT 93–98
[2025-05-11] MEDS: Vancomycin HCl 1,250 MG in 0.9% Normal Saline (250mL Bag) 250 ML 83.5 MG IV (05:03)
[2025-05-11] MEDS: 0.9% Saline Lock 10 ML Syringe IV ×3 (05:05→14:48)
[2025-05-11] MEDS: Piperacil/Tazobactam 3.375 GM in 0.9% Normal Saline (50mL MB+) 50 ML IV (05:05)
[2025-05-11 07:49] LABS: Hematocrit 27.8 % (37-47); Hemoglobin 8.9 g/dL (12.0-15.0); Immature Granulocytes Count 0.090 X10^3/uL (0.0-0.0); Mean Corp Hgb Conc 32.0 g/dL (32-36); Mean Corpuscular Volume 93.9 fL (81-99); Mean Platelet Vol. 9.7 fl (6.2-12.0); NRBC Flagged by Analyzer 0 % (0-5); Platelet Count 192 K/mm3 (150-450); RBC Distribution Width CV 15.1 % (11.6-14.6); RBC Distribution Width SD 52.9 fl (35.1-43.9); Red Blood Count 2.96 M/mm3 (4.2-5.4); White Blood Count 11.0 K/mm3 (4.4-11.0)
--- NOTE | 2025-05-11 07:58 | PCM.PN.HOSP ---
Reason for Visit Chief Complaint: Left toe pain and swelling Objective Data Objective Data Vital Signs: Vital Signs Temp Pulse Resp BP Pulse Ox O2 Del Method O2 Flow Rate 97.2 F L 91 20 H 100/58 L 95 Nasal Cannula 2 05/11/25 03:39 05/11/25 03:39 05/11/25 03:39 05/11/25 03:39 05/11/25 03:39 05/11/25 04:05 05/11/25 04:05 Oxygen Flow Rate (L/min) 2 Oxygen Delivery Method Nasal Cannula Weight: 254 lb 3.088 oz Body Mass Index (BMI) 49.6 Intake & Output: Intake and Output for Last 24 Hours 05/09/25 05/10/25 05/11/25 23:59 23:59 23:59 Intake Total 640.00 / 640.00 50 / 50 Output Total 150 / 150 200 / 200 Balance 490.00 / 490.00 -150 / -150 Lab / Micro Data 05/11/25 06:28 05/11/25 06:28 Labs: Laboratory Results - last 24 hr 05/10/25 14:55: WBC 11.6 H, RBC 3.58 L, Hgb 10.9 L, Hct 33.8 L, MCV 94.4, MCH 30.4, MCHC 32.2, RDW Std Deviation 52.8 H, RDW Coeff of Cecil 15.2 H, Plt Count 210, MPV 10.2, Immature Gran % (Auto) 0.800, Neut % (Auto) 68.1, Lymph % (Auto) 17.4 L, [place] % (Auto) 6.7, Eos % (Auto) 6.7 H, Baso % (Auto) 0.3, Absolute Neuts (auto) 7.9 H, Absolute Lymphs (auto) 2.02, Nucleated RBC % 0, Differential Comment SCANNED, Platelet Estimate ADEQUATE, ESR 37 H, Sodium 138, Potassium 3.9, Chloride 101, Carbon Dioxide 23.5, Anion Gap 14, BUN 30 H, Creatinine 1.01, Estim Creat Clear Calc 58.10, Est GFR (MDRD) Non-Af 58 L, BUN/Creatinine Ratio 29.8 H, Glucose 152 H, Lactic Acid 1.7, Calcium 9.6, C-React Prot Ext Range 85.00 H, TSH 2.810 05/10/25 22:06: POC Glucose 170 H 05/11/25 06:28: WBC 11.0, RBC 2.96 L, Hgb 8.9 L, Hct 27.8 L, MCV 93.9, MCH 30.1, MCHC 32.0, RDW Std Deviation 52.9 H, RDW Coeff of Cecil 15.1 H, Plt Count 192, MPV 9.7, Immature Gran % (Auto) 0.800, Neut % (Auto) 68.5, Lymph % (Auto) 14.5 L, [place] % (Auto) 6.9, Eos % (Auto) 8.9 H, Baso % (Auto) 0.4, Absolute Neuts (auto) 7.5, Absolute Lymphs (auto) 1.59, Nucleated RBC % 0, ESR 26 05/11/25 06:36: POC Glucose 113 H Radiography Diagnostic Testing: Radiology Impression Foot X-Ray 05/10/25 15:20 IMPRESSION: Profound osteopenia, no demonstrated fracture, please see discussion above Polyarticular arthrosis Calcaneal spurs Soft tissue swelling Reading Location: [facility] Physical Exam Narrative Seen and examined with the special service representative Dr. Bhardwaj Patient stated she does not like poking her finger therefore does not [place] and wants continuous glucose monitoring device and is talked to her PCP Dr. Heller for that. Left fifth toe has medial side erythema and a small ulcer. Physical exam General: Alert, Oriented x3, Cooperative. BMI 49.6 kg/m?, morbid obesity HEENT: Atraumatic, PERRLA, EOMI, Normocephalic. Oral: Oral mucosa moist. No Gingival or Mucosal Lesions/ Ulcerations Neck: Supple, No JVD, Negative Carotid Bruits Chest wall/Lungs: Air entry diminished in bilateral lung bases. No crepitation/rhonchi Cardiovascular: Regular rate and rhythm, Normal S1,S2, No M/G/R Abdomen: Bowel Sounds Present, Soft, Non Tender, Non-Distended : No dysuria. No renal angle tenderness. No suprapubic tenderness. Extremities: No edema, Capillary Refill Less than 3 Seconds Skin: Small ulcer with visible tiny possible tendon but no bone felt on the medial side of left fifth toe. Musculoskeletal: No Tenderness to Palpation of Joints or Extremities Neurological: Cranial nerves II-XII grossly intact, DTR 2+/4. No acute focal neurological deficit. Psych/Mental Status: Normal Affect, Appropriate. Assessment & Plan Assessment/Plan (1) Diabetic foot infection: PLAN: Plan 75-year-old female admitted with left fifth toe pain with radiation towards the ankle for several weeks. Redness, swelling on left lateral foot for past 2 days. History with complicated DM type II with neuropathy. Follows with Dr. Geiger. # Cellulitis of foot in diabetic patient -Elevated ESR, CRP -X-ray of foot only showed soft tissue swelling. MRI is pending. ? Initially started on IV vancomycin and Zosyn. Had rash with Vanco in ED. Vancomycin narrowed down to doxycycline. ID Zosyn narrowed to Unasyn. Was seen and examined with special service representative. Further plan after MRI. Culture was taken and sent. # Intermittent tachycardia -Patient has intermittently had heart rates up to 140s/150?s with narrow complex tachycardia that would start and stop quickly, suspected to be slow SVT. EKG right after episode with sinus rhythm with first-degree AV block. Patient asymptomatic during those events -Monitor on telemetry -Echocardiogram Accu-Chek before meals and at bedtime with Humalog sliding scale coverage and hypoglycemia protocol. May 2023 shows EF 45%, mild MR mild TR, RVSP 45 emergency. -TSH 2.81. Heart rate 76/min. Echo is ordered - If further episodes or persistent may need to start beta-rivera or consider cardiology consult #Type 2 diabetes mellitus complicated with diabetic neuropathy -Glucose checks and sliding scale insulin - A1c 6.6%. Glucose is reasonably controlled less than 150 mg/dL. #Hypothyroidism -Continue Synthroid #SUSAN -Continue home NIPPV if applicable #Depression/anxiety -Continue home medications # Restless leg syndrome -continue patient's home medication regimen # History of asthma - Budesonide inhaler as needed #Morbid obesity -BMI documented as 48 kg/m? at time of admission -Complicates treatment, prognosis, outcomes -Recommend weight loss and lifestyle changes #DVT ppx: Lovenox 40 mg SQ twice daily Microbiology Past 72 Hours 05/11/25 09:30 Wound - Left Foot Gram Stain - Final Laboratory Results 05/10/25 14:55: WBC 11.6 H, RBC 3.58 L, Hgb 10.9 L, Hct 33.8 L, MCV 94.4, MCH 30.4, MCHC 32.2, RDW Std Deviation 52.8 H, RDW Coeff of Cecil 15.2 H, Plt Count 210, MPV 10.2, Immature Gran % (Auto) 0.800, Neut % (Auto) 68.1, Lymph % (Auto) 17.4 L, [place] % (Auto) 6.7, Eos % (Auto) 6.7 H, Baso % (Auto) 0.3, Absolute Neuts (auto) 7.9 H, Absolute Lymphs (auto) 2.02, Nucleated RBC % 0, Differential Comment SCANNED, Platelet Estimate ADEQUATE, ESR 37 H, Sodium 138, Potassium 3.9, Chloride 101, Carbon Dioxide 23.5, Anion Gap 14, BUN 30 H, Creatinine 1.01, Estim Creat Clear Calc 58.10, Est GFR (MDRD) Non-Af 58 L, BUN/Creatinine Ratio 29.8 H, Glucose 152 H, Lactic Acid 1.7, Calcium 9.6, C-React Prot Ext Range 85.00 H, TSH 2.810 05/10/25 22:06: POC Glucose 170 H 05/11/25 06:28: WBC 11.0, RBC 2.96 L, Hgb 8.9 L, Hct 27.8 L, MCV 93.9, MCH 30.1, MCHC 32.0, RDW Std Deviation 52.9 H, RDW Coeff of Cecil 15.1 H, Plt Count 192, MPV 9.7, Immature Gran % (Auto) 0.800, Neut % (Auto) 68.5, Lymph % (Auto) 14.5 L, [place] % (Auto) 6.9, Eos % (Auto) 8.9 H, Baso % (Auto) 0.4, Absolute Neuts (auto) 7.5, Absolute Lymphs (auto) 1.59, Nucleated RBC % 0, ESR 26, Sodium 137, Potassium 4.3, Chloride 105, Carbon Dioxide 21.2, Anion Gap 11, BUN 31 H, Creatinine 1.14, Estim Creat Clear Calc 48.66 L, Est GFR (MDRD) Non-Af 50 L, BUN/Creatinine Ratio 27.5 H, Glucose 113 H, Hemoglobin A1c 6.6 H, Uric Acid 7.9 H, Calcium 8.6, C-React Prot Ext Range 98.10 H 05/11/25 06:36: POC Glucose 113 H 05/11/25 11:25: POC Glucose 148 H Echo June 19 Interpretation Summary The study was technically difficult. The left ventricular ejection fraction is 45 %. Moderate mitral annular calcification. Mild (1+) mitral valve insufficiency. Mild tricuspid valve insufficiency. Right ventricular systolic pressure estimated to be 45 mmHg. Clinical Impression(s) from Imaging Studies Foot X-Ray 05/10/25 15:20 IMPRESSION: Profound osteopenia, no demonstrated fracture, please see discussion above Polyarticular arthrosis Calcaneal spurs Soft tissue swelling Charges/Coding Visit Charges Inpatient E&M: 26070 Subs Hosp L2
[2025-05-11 09:21] LABS: CRP 98.10 mg/L (0.0-3.0)
[2025-05-11 09:29] LABS: Anion Gap 11 (5-15); BUN 31 mg/dL (4-19); BUN/Creat Ratio 27.5 RATIO (10-20); Calcium,Total 8.6 mg/dL (7.6-11.0); Carbon Dioxide 21.2 mmol/L (21.0-32.0); Chloride 105 mmol/L (98-108); Estimated Creatinine Clearance 48.66 ml/min (50-250); Glucose 113 mg/dL (70-99); Potassium 4.3 mmol/L (3.3-5.1)
[2025-05-11] MEDS: 0.9% Normal Saline (250mL Bag) 250 ML 15 ML IV (09:30)
--- NOTE | 2025-05-11 09:38 | PCM.CONS.GEN ---
Assessment & Plan Assessment/Plan (1) Type 2 diabetes mellitus with foot ulcer: (2) Cellulitis of left lower limb: (3) Ulcer of left foot with muscle involvement without evidence of necrosis: PLAN: Plan Evaluation performed. Reviewed diagnostic data. There is an ulceration sub left 5th toe at area of the sulcus. No debridement needed at this time. A culture was obtained of the ulceration. Patient is on IV antibiotics and Infectious Disease has been consulted. Noninvasive lower extremity arterial studies ordered - there is no evidence of acute ischemia to foot bilateral. Wound care left 5th toe: Betadine soln topically and gauze dressing BID. No weightbearing to toes left foot. Ordered surgical shoe. Podiatry will continue to follow, thank you for consultation. Discussed with Dr. Miranda. HPI Consult Data Date of Consult: 05/11/25 HPI Narrative Reason for Consultation: Left 5th toe infection HPI Narrative: EDUAR GOMEZ, is a 75 F who presented to ER yesterday and was admitted for left 5th toe infection. She relates it started a couple days ago and has been worsening, she has redness, swelling and pain to the site. She denies any recent trauma, but relates to previous injury when horse stepped on her foot in the past. She has history of diabetes. She is resting in bed. She has been on IV antibiotics Vanc and Zosyn since yesterday and she relates toe is feeling and looking better. [facility] Medical History History of ESBL Klebsiella pneumoniae infection BiPAP (biphasic positive airway pressure) dependence History of diverticulitis Restless legs MRSA infection Wears glasses Post-menopausal Alcohol use Thyroid disease Arthritis High cholesterol Back pain Injury of head and neck Non-smoker Shortness of breath on exertion History of pain when walking History of echocardiogram Sinus tachycardia by electrocardiogram Anemia Thrombocytopenia Depression Anxiety Osteoarthritis Kidney stones Asthma Hypertension Diabetes Fibromyalgia Foot arch pain COVID-19 Home Medications ?Medication ?Instructions ?Recorded ?Last Taken ?Type fluticasone propionate 50 2 spray NASAL DAILY allergies 12/07/16 05/31/24 History mcg/actuation nasal spray,suspension citalopram 20 mg tablet 20 mg PO QHS DEPRESSION 04/26/21 05/31/24 History levothyroxine 25 mcg tablet 25 mcg PO DAILY thyroid 04/29/21 04/06/24 07:00 History lovastatin 40 mg tablet 40 mg PO QHS cholesterol 04/29/21 05/31/24 History ropinirole 2 mg tablet 2 mg PO QHS RLS 06/25/23 05/31/24 History glucosamine 375 ip-ciucuxlhg-txw 3 tab PO DAILY joints 08/02/23 05/31/24 History no1 500 mg-C 15 mg-iganni 0.5 mg tablet (Ehffvwvsmod-Owpzutrbxet-MLD Complex) metformin 500 mg tablet 500 mg PO BID dm 08/02/23 05/31/24 History cranberry fruit 400 mg capsule 400 mg PO DAILY health 11/03/23 05/31/24 History vitamin B complex 1 tab PO DAILY health 11/23/23 05/31/24 History budesonide 0.5 mg/2 mL suspension 0.5 mg inhalation Q12H PRN PRN 03/23/24 Unknown History for nebulization breathing finerenone 10 mg tablet (Kerendia) 10 mg PO DAILY health 05/18/24 05/31/24 History ipratropium bromide 42 mcg (0.06 2 spray intranasal DAILY sob 06/19/24 Unknown History %) nasal spray levalbuterol tartrate 45 1 puff inhalation Q4H PRN 06/19/24 Unknown History mcg/actuation aerosol inhaler shortness of breath polysaccharide iron complex 150 mg 150 mg PO QDAY anemia 06/19/24 Unknown History iron capsule (Ferrex) ascorbate calcium (vitamin C) 500 1 g PO DAILY health 12/22/24 Unknown History mg tablet coenzyme Q10 100 mg capsule 50 mg PO DAILY health 12/22/24 Unknown History (CoQ-10) echinacea 500 mg capsule 1,000 mg PO DAILY health 12/22/24 Unknown History melatonin 10 mg capsule 10 mg PO QHS sleep 12/22/24 Unknown History Allergy/AdvReac Type Severity Reaction Status Date / Time cephalexin monohydrate (From Allergy Swelling Verified 01/26/25 14:38 Keflex) ibuprofen Allergy Swelling Verified 01/26/25 14:38 oxaprozin (From Daypro) Allergy Swelling Verified 01/26/25 14:38 tramadol HCl (From Ultram) Allergy Swelling Verified 01/26/25 14:38 albuterol AdvReac Intermediate Other Verified 01/26/25 14:38 celecoxib (From Celebrex) AdvReac DIZZY AND Verified 01/26/25 14:38 HURTS AROUND MY LIVER Family History Other Diabetes Hypertension Surgical History Hx of bilateral cataract extraction History of cystoscopy Hx of umbilical hernia repair History of carpal tunnel surgery of left wrist Hx of tonsillectomy Hx of colonoscopy History of ureter stent Social History household members: children housing: house Smoking Status: Never smoker alcohol intake: never substance use type: does not use Physical Exam Const alert, oriented x3 and no apparent distress Constitutional Narrative: Left 5th toe with ulceration plantar sulcus down to flexor tendon, no probe to bone, tissues are healthy, viable and granular, there is some some maloder and some serous drainage, there is no visible abscess, no fluctuance, no crepitus, no necrosis, there is erythema to the left 5th toe and extends dorsally to the forefoot but appears to be improving, no other open lesions bilateral foot. She notes to some POP to the left 5th toe but she relates it is definitely feeling better than yesterday. No other POP or pain on ROM to foot or ankle bilateral. No evidence of acute ischemia bilateral foot. There is palpable pedal pulses bilateral. Diffuse chronic appearing LE edema. Chronic contracture of lesser toes bilateral. DJD to the foot bilateral. Sensation is some diminished to foot - left. Lab / Micro Data 05/11/25 06:28 05/11/25 06:28 Labs: Laboratory Results - last 24 hr 05/10/25 14:55: WBC 11.6 H, RBC 3.58 L, Hgb 10.9 L, Hct 33.8 L, MCV 94.4, MCH 30.4, MCHC 32.2, RDW Std Deviation 52.8 H, RDW Coeff of Cecil 15.2 H, Plt Count 210, MPV 10.2, Immature Gran % (Auto) 0.800, Neut % (Auto) 68.1, Lymph % (Auto) 17.4 L, [place] % (Auto) 6.7, Eos % (Auto) 6.7 H, Baso % (Auto) 0.3, Absolute Neuts (auto) 7.9 H, Absolute Lymphs (auto) 2.02, Nucleated RBC % 0, Differential Comment SCANNED, Platelet Estimate ADEQUATE, ESR 37 H, Sodium 138, Potassium 3.9, Chloride 101, Carbon Dioxide 23.5, Anion Gap 14, BUN 30 H, Creatinine 1.01, Estim Creat Clear Calc 58.10, Est GFR (MDRD) Non-Af 58 L, BUN/Creatinine Ratio 29.8 H, Glucose 152 H, Lactic Acid 1.7, Calcium 9.6, C-React Prot Ext Range 85.00 H, TSH 2.810 05/10/25 22:06: POC Glucose 170 H 05/11/25 06:28: WBC 11.0, RBC 2.96 L, Hgb 8.9 L, Hct 27.8 L, MCV 93.9, MCH 30.1, MCHC 32.0, RDW Std Deviation 52.9 H, RDW Coeff of Cecil 15.1 H, Plt Count 192, MPV 9.7, Immature Gran % (Auto) 0.800, Neut % (Auto) 68.5, Lymph % (Auto) 14.5 L, [place] % (Auto) 6.9, Eos % (Auto) 8.9 H, Baso % (Auto) 0.4, Absolute Neuts (auto) 7.5, Absolute Lymphs (auto) 1.59, Nucleated RBC % 0, ESR 26, Sodium 137, Potassium 4.3, Chloride 105, Carbon Dioxide 21.2, Anion Gap 11, BUN 31 H, Creatinine 1.14, Estim Creat Clear Calc 48.66 L, Est GFR (MDRD) Non-Af 50 L, BUN/Creatinine Ratio 27.5 H, Glucose 113 H, Calcium 8.6, C-React Prot Ext Range 98.10 H 05/11/25 06:36: POC Glucose 113 H Imaging Radiology Impression Foot X-Ray 05/10/25 15:20 IMPRESSION: Profound osteopenia, no demonstrated fracture, please see discussion above Polyarticular arthrosis Calcaneal spurs Soft tissue swelling Reading Location: [id number]
--- NOTE | 2025-05-11 09:44 | ART_ITS ---
Reason For Study Reason For Study: Ulcer Procedure A bilateral lower extremity continuous wave Doppler with analog waveform analysis,segmental pressures,and ankle brachial indexes without exercise. Left Segmental Pressures Left posterior tibial artery = 118mmHg. Left dorsalis pedis artery = 115mmHg. Left digit = 82 mmHg. The left dorsalis pedis waveforms are triphasic. The left posterior tibial artery waveforms are triphasic. Right Segmental Pressures Right brachial= 117mmHg. Right posterior tibial artery = 130mmHg. Right dorsalis pedis artery = 123mmHg. Right digit = 115 mmHg. The right dorsalis pedis waveforms are triphasic. The right posterior tibial artery waveforms are triphasic. Indices The right ankle brachial index by the dorsalis pedis is 1.05. The right ankle brachial index by the posterior tibial artery is 1.11. The right digital-brachial index is 0.98. The left ankle brachial index by the dorsalis pedis is 0.98. The left ankle brachial index by the posterior tibial artery is 1.01. The left digital-brachial index is 0.70. VL/Lower Ext Art Exam w/o Exercis Interpretation Summary Triphasic Doppler waveforms are noted at ankle level bilaterally. Pulse-volume recordings appear satisfactory at all levels bilaterally. Resting ankle-brachial indices are normal bilaterally. The right digital-brachial index is normal. The left digital-brachial index is low-normal. There is no evidence of significant arterial occlusive disease in the lower ext remities bilaterally. Ordering Physician: Luis Bhardwaj Referring Physician: Corby Heller Chi Performed By: NELLIE PARIS T
[2025-05-11 10:11] LABS: Uric Acid 7.9 mg/dL (2.6-6.0)
--- NOTE | 2025-05-11 12:02 | CHAPLAIN ---
Type of Pastoral Visit _x__ Initial Visit ___ Follow-up Visit ___ On-call Visit ___ General Patient Visit ___ Spiritual Assessment ___ Family Conference ___ Bereavement ___ Rapid Response ___ Code Blue ___ Other (describe below) Pastoral Care Referral From _x__ Patient ___ Family ___ Nurse ___ Physician ___ Gear Machine Operator General ___ Riding Double ___ Other (describe below) Sacrament/Intervention ___ Active listening ___ Anointing ___ Latter Day ___ Bereavement ___ Communion ___ Melissa exploration ___ ___ Life review _x__ Prayer ___ Reconciliation ___ Sacrament of Sick _x__ Supportive presence ___ Wedding ___ Other (describe below) Pastoral Comments patient is remembered from previous admissions; pt is resting quietly in bed but is awake; pt states that she is very tired and has had a hard time trying to sleep; pt says that she welcomes a prayer but has no other needs at this time; prayer given and words of concern and affirmation shared with her; brief visit so she could nap if possible
--- NOTE | 2025-05-11 12:49 | PCM.CONS.GEN ---
Assessment & Plan Assessment/Plan (1) Diabetic foot infection: PLAN: Wound cx pending, seen by Dr. Bhardwaj. MRI pending. On doxy and zosyn. Had rash with vanc in ED. Cont doxy, will narrow zosyn to unasyn. Will follow, thank you HPI Consult Data Date of Consult: 05/11/25 HPI Narrative Reason for Consultation: DM foot infection HPI Narrative: EDUAR GOMEZ, is a 75 F with h/o DM, presented to ED 05/10 with about a week progressive L lateral toe pain, redness, swelling. No fever or chills, no recent abx. Pain was moderate. Came to ED, had rash with vanc, now admitted on doxy and zosyn. Seen by podiatry. MRI pending. Feeling better. Full ROS performed and neg except as noted above. [facility] Medical History History of ESBL Klebsiella pneumoniae infection BiPAP (biphasic positive airway pressure) dependence History of diverticulitis Restless legs MRSA infection Wears glasses Post-menopausal Alcohol use Thyroid disease Arthritis High cholesterol Back pain Injury of head and neck Non-smoker Shortness of breath on exertion History of pain when walking History of echocardiogram Sinus tachycardia by electrocardiogram Anemia Thrombocytopenia Depression Anxiety Osteoarthritis Kidney stones Asthma Hypertension Diabetes Fibromyalgia Foot arch pain COVID-19 Home Medications ?Medication ?Instructions ?Recorded ?Last Taken ?Type fluticasone propionate 50 2 spray NASAL DAILY allergies 12/07/16 05/31/24 History mcg/actuation nasal spray,suspension citalopram 20 mg tablet 20 mg PO QHS DEPRESSION 04/26/21 05/31/24 History levothyroxine 25 mcg tablet 25 mcg PO DAILY thyroid 04/29/21 04/06/24 07:00 History lovastatin 40 mg tablet 40 mg PO QHS cholesterol 04/29/21 05/31/24 History ropinirole 2 mg tablet 2 mg PO QHS RLS 06/25/23 05/31/24 History glucosamine 375 eq-kwdqrtqhk-ygy 3 tab PO DAILY joints 08/02/23 05/31/24 History no1 500 mg-C 15 mg-gianni 0.5 mg tablet (Cnekjiambrv-Bdmseobhfsq-EYC Complex) metformin 500 mg tablet 500 mg PO BID dm 08/02/23 05/31/24 History cranberry fruit 400 mg capsule 400 mg PO DAILY health 11/03/23 05/31/24 History vitamin B complex 1 tab PO DAILY health 11/23/23 05/31/24 History budesonide 0.5 mg/2 mL suspension 0.5 mg inhalation Q12H PRN PRN 03/23/24 Unknown History for nebulization breathing finerenone 10 mg tablet (Kerendia) 10 mg PO DAILY health 05/18/24 05/31/24 History ipratropium bromide 42 mcg (0.06 2 spray intranasal DAILY sob 06/19/24 Unknown History %) nasal spray levalbuterol tartrate 45 1 puff inhalation Q4H PRN 06/19/24 Unknown History mcg/actuation aerosol inhaler shortness of breath polysaccharide iron complex 150 mg 150 mg PO QDAY anemia 06/19/24 Unknown History iron capsule (Ferrex) ascorbate calcium (vitamin C) 500 1 g PO DAILY health 12/22/24 Unknown History mg tablet coenzyme Q10 100 mg capsule 50 mg PO DAILY health 12/22/24 Unknown History (CoQ-10) echinacea 500 mg capsule 1,000 mg PO DAILY health 12/22/24 Unknown History melatonin 10 mg capsule 10 mg PO QHS sleep 12/22/24 Unknown History Allergy/AdvReac Type Severity Reaction Status Date / Time cephalexin monohydrate (From Allergy Swelling Verified 01/26/25 14:38 Keflex) ibuprofen Allergy Swelling Verified 01/26/25 14:38 oxaprozin (From Daypro) Allergy Swelling Verified 01/26/25 14:38 tramadol HCl (From Ultram) Allergy Swelling Verified 01/26/25 14:38 albuterol AdvReac Intermediate Other Verified 01/26/25 14:38 celecoxib (From Celebrex) AdvReac DIZZY AND Verified 01/26/25 14:38 HURTS AROUND MY LIVER Family History Other Diabetes Hypertension Surgical History Hx of bilateral cataract extraction History of cystoscopy Hx of umbilical hernia repair History of carpal tunnel surgery of left wrist Hx of tonsillectomy Hx of colonoscopy History of ureter stent Social History household members: children housing: house Smoking Status: Never smoker alcohol intake: never substance use type: does not use Physical Exam Const alert, oriented x3 and no apparent distress General Appearance: cooperative HEENT normocephalic and head/scalp atraumatic Eyes PERRL and EOMs intact bilaterally Neck supple and No nodes Resp normal air movement and clear to auscultation bilaterally Cardio regular rate and regular rhythm GI soft to palpation, non-tender and non-distended Extremity General Extremity: edema Skin Skin Narrative: L 5th toe with some redness, swelling, small wound Neuro CN's II-XII intact bilaterally Lab / Micro Data Attestation: I reviewed the patient's lab results. 05/11/25 06:28 05/11/25 06:28 Labs: Laboratory Results - last 24 hr 05/10/25 14:55: WBC 11.6 H, RBC 3.58 L, Hgb 10.9 L, Hct 33.8 L, MCV 94.4, MCH 30.4, MCHC 32.2, RDW Std Deviation 52.8 H, RDW Coeff of Cecil 15.2 H, Plt Count 210, MPV 10.2, Immature Gran % (Auto) 0.800, Neut % (Auto) 68.1, Lymph % (Auto) 17.4 L, Darke % (Auto) 6.7, Eos % (Auto) 6.7 H, Baso % (Auto) 0.3, Absolute Neuts (auto) 7.9 H, Absolute Lymphs (auto) 2.02, Nucleated RBC % 0, Differential Comment SCANNED, Platelet Estimate ADEQUATE, ESR 37 H, Sodium 138, Potassium 3.9, Chloride 101, Carbon Dioxide 23.5, Anion Gap 14, BUN 30 H, Creatinine 1.01, Estim Creat Clear Calc 58.10, Est GFR (MDRD) Non-Af 58 L, BUN/Creatinine Ratio 29.8 H, Glucose 152 H, Lactic Acid 1.7, Calcium 9.6, C-React Prot Ext Range 85.00 H, TSH 2.810 05/10/25 22:06: POC Glucose 170 H 05/11/25 06:28: WBC 11.0, RBC 2.96 L, Hgb 8.9 L, Hct 27.8 L, MCV 93.9, MCH 30.1, MCHC 32.0, RDW Std Deviation 52.9 H, RDW Coeff of Cecil 15.1 H, Plt Count 192, MPV 9.7, Immature Gran % (Auto) 0.800, Neut % (Auto) 68.5, Lymph % (Auto) 14.5 L, Darke % (Auto) 6.9, Eos % (Auto) 8.9 H, Baso % (Auto) 0.4, Absolute Neuts (auto) 7.5, Absolute Lymphs (auto) 1.59, Nucleated RBC % 0, ESR 26, Sodium 137, Potassium 4.3, Chloride 105, Carbon Dioxide 21.2, Anion Gap 11, BUN 31 H, Creatinine 1.14, Estim Creat Clear Calc 48.66 L, Est GFR (MDRD) Non-Af 50 L, BUN/Creatinine Ratio 27.5 H, Glucose 113 H, Hemoglobin A1c 6.6 H, Uric Acid 7.9 H, Calcium 8.6, C-React Prot Ext Range 98.10 H 05/11/25 06:36: POC Glucose 113 H 05/11/25 11:25: POC Glucose 148 H Imaging Radiology Impression Foot X-Ray 05/10/25 15:20 IMPRESSION: Profound osteopenia, no demonstrated fracture, please see discussion above Polyarticular arthrosis Calcaneal spurs Soft tissue swelling Reading Location: [id number]
--- NOTE | 2025-05-11 13:04 | CASEMGMT ---
Social Work Pt completed POA for healthcare w/SW, put her sister Kaia as HCPOA, her granddaughter Miracle as the alternate. SW gave pt the originals and copies, copy also placed on the chart. Pt deferred completing LW at this time. Pt given blank LW form w/SW dept number should she want to complete the document in the future as an outpt. JUSTYNA Corbett
[2025-05-11] MEDS: Fluticasone 0.05% 1 SPRAY NASAL.SRY 2 SPRAY NASAL (13:54)
[2025-05-11] MEDS: Ampicillin/Sulbactam 3 GM in 0.9% Normal Saline (100mL MB+) 100 ML IV ×2 (13:55→21:22)
--- NOTE | 2025-05-11 14:00 | CASEMGMT ---
RN CM Assessment Face to Face with patient for initial transition planning/care coordination assessment. RN CM introduced self and role at [facility], pt voices understanding. Pt is A&Ox4 and is resting comfortably in the chair and is calm. Care providers, pharmacy, and demographics verified. Admitting dx: Left diabetic foot infection LACE Strata: 3 PCP: [facility] Specialists: Andres (Pulmonary), Conner (Nephro), Hx with Dr Geiger (Podiatry) Preferred Pharmacy: [facility] Insurance: MCR A/B, [employer] Prescription Benefit: Yes LNOK: Kaia (Sister)Miracle (GD) Living Arrangements: Pt lives with her GD and daughter (Currently @ [facility]) in a single story home with a ramp to enter. Pt states that her sister lives across the street from her. ADLs/IADLs: Pt states that she is indep at baseline but that she is currently tired and painful. PT states to this RN CM that the pt qualifies for HHC. Pt may also require IV ATBs moving forward. Cultures and MRI pending. CM to follow ID consult. Pt denies wanting to review a list of local in-network HHC agencies and states that she prefers [facility] HH. CM to make referral. A verbal list of local in network home infusion companies were also provided to the pt. Pt prefers [facility] if she were to require home IV ATBs. Transportation: Self, sister, friends. Denies concerns currently DME: BiPAP @ [facility] with no additional oxygen. Pt is currently on RA. Pt states she had lost her BGM. Pt believes that she had gotten this through her insurance within the last 5 years. Pt educated that [employer] will not pay for another one at this time. Pt educated on purchasing options and states that she can afford. Pt also reports that she has a nebulizer, shower chair, raised toilet seat, cane, grab bars, rollator, and scooter. HHC/SNF: reports TCU hx and HHC through [facility] Wound: Pt states that her GD can help care for her wound and also be the teachable caregiver if home IV ATBs are needed. Pt also states that she would be willing to follow up at the [facility] if warranted. Pt educated that [facility] HH can also help care for the wound Pt?s goal: Home Plan: TBD. Anticipate home with skilled HHC. Follow for IV ATB needs. Follow for WCC follow up. ID, podiatry, and wound RN are consulted. Pt denies further questions or concerns at this time. Report given to [facility] CM. Salazar Jalloh RN CM
--- NOTE | 2025-05-11 15:10 | CASEMGMT ---
Addendum entered by Silas Terry 05/11/25 16:33: Pt made aware. Addendum entered by Silas Terry 05/11/25 16:33: Call received back from Becky @ [facility]. She states they have not officially accepted pt yet and they will f/u on Wednesday, whether pt is still in the hospital or has been discharged re: decision. Original Note: ULISES MILLAN NOTE: Call placed to Becky @ [facility] and referral made. Monica SANTACRUZ RN CM
--- NOTE | 2025-05-11 20:40 | MRI_ITS ---
PROCEDURE: LOWER EXT NO JOINT W/WO CONT 05/11/2025 REASON FOR EXAM: DIABETIC FOOT INFECTION, ELEVATED ESR AND CRP TECHNIQUE: LOWER EXT NO JOINT W/WO CONT CONTRAST: Clariscan VOLUME: 23 mL COMPARISON: none FINDINGS: Diffuse ill defined soft tissue thickening, edema and enhancement seen involving the little toe predominantly extending along the dorsolateral and planter aspects of its phalanges with overlying small soft tissue defects/ulcers along its tip as well as along its distal metatarsal shaft. Related cortical irregularities of its distal phalanx with marrow edema of its phalanges suggesting osteomyelitis. Medial subluxation of the little toe phalanges noted. Focal subcutaneous soft tissue thickening of the planter aspect of the little toe metatarsophalangeal joint, possibly adventitial bursitis. Diffuse extensive subcutaneous soft tissue edema of the foot most evident along its dorsolateral aspect with no obvious marginally enhancing abscesses formation. Diffuse atrophic changes of the examine foot muscles. Degenerative arthropathic changes of the inter-tarsal and to less extent tarsometatarsal articulations evident by narrowed joints spaces with marginal lipping of their opposing articular surfaces associated cortical irregularities, subcortical pseudocystic changes and marrow edema. Mild Degenerative arthropathic changes of the big and little toes metatarsophalangeal evident by narrowed joints spaces with marginal lipping of their opposing articular surfaces. No marrow infiltrative lesions. Mild metatarsophalangeal, tarsometatarsal and intertarsal joints effusion. The examined distal segment of the planter fascia appears intact. The examined tendons are intact. MRI/Lower Ext No Joint W/WO Cont IMPRESSION: Findings are suggestive of little toe cellulitis with overlying small soft tiss ue defects/ulcers, related cortical irregularities of its distal phalanx with marrow edema of its phalanges suggesting osteomyelit is. Focal subcutaneous soft tissue thickening of the planter aspect of the little t oe metatarsophalangeal joint, possibly adventitial bursitis. Diffuse extensive subcutaneous soft tissue edema of the foot most evident along its dorsolateral aspect with no obvious marginally enhancing abscesses formation. Diffuse atrophic changes of the examine foot muscles. Degenerative arthropathic changes of the inter-tarsal and to less extent tarsom etatarsal articulations. Mild Degenerative arthropathic changes of the big and little toes metatarsophal angeal. Mild metatarsophalangeal, tarsometatarsal and intertarsal joints effusion. Reading Location[facility]
[2025-05-11] MEDS: MELATONIN 10 MG TABLET PO (21:22)
[2025-05-12 04:52] VITALS: BP 126/58; PULSE 70; RESP 16; TEMP 36.8; O2SAT 93
[2025-05-12 05:42] LABS: Hematocrit 27.3 % (37-47); Hemoglobin 8.8 g/dL (12.0-15.0); Immature Granulocytes Count 0.080 X10^3/uL (0.0-0.0); Mean Corp Hgb Conc 32.2 g/dL (32-36); Mean Corpuscular Volume 94.1 fL (81-99); Mean Platelet Vol. 9.6 fl (6.2-12.0); NRBC Flagged by Analyzer 0 % (0-5); Platelet Count 173 K/mm3 (150-450); RBC Distribution Width CV 14.7 % (11.6-14.6); RBC Distribution Width SD 51.3 fl (35.1-43.9); Red Blood Count 2.90 M/mm3 (4.2-5.4); White Blood Count 8.2 K/mm3 (4.4-11.0)
[2025-05-12 06:08] LABS: Anion Gap 11 (5-15); BUN 31 mg/dL (4-19); BUN/Creat Ratio 28.1 RATIO (10-20); Calcium,Total 8.6 mg/dL (7.6-11.0); Carbon Dioxide 21.6 mmol/L (21.0-32.0); Chloride 103 mmol/L (98-108); Estimated Creatinine Clearance 50.43 ml/min (50-250); Glucose 108 mg/dL (70-99); Potassium 3.9 mmol/L (3.3-5.1)
[2025-05-12] MEDS: Ampicillin/Sulbactam 3 GM in 0.9% Normal Saline (100mL MB+) 100 ML IV ×3 (06:21→21:16)
[2025-05-12 08:59] VITALS: BP 135/54; PULSE 73; RESP 20; TEMP 36.8; O2SAT 94
[2025-05-12] MEDS: Fluticasone 0.05% 1 SPRAY NASAL.SRY 2 SPRAY NASAL (09:04)
--- NOTE | 2025-05-12 11:01 | PN_ITS ---
Subjective Subjective Patient was seen today for follow up on left 5th toe infection. She is resting in chair, she relates toe is feeling a lot better. She had MRI and noted to have findings c/w osteomyelitis. She has no new complaints. No c/o f/c/n/v. Objective Data Objective Data Vital Signs: Vital Signs Temp Pulse Resp BP Pulse Ox O2 Del Method O2 Flow Rate 98.3 F 73 20 H 135/54 H 94 Room Air 1 05/12/25 08:59 05/12/25 08:59 05/12/25 08:59 05/12/25 08:59 05/12/25 08:59 05/12/25 08:59 05/11/25 10:00 Oxygen Flow Rate (L/min) 1 Oxygen Delivery Method Room Air Weight: 115.3 kg Body Mass Index (BMI) 49.6 Intake & Output: Intake and Output for Last 24 Hours 05/10/25 05/11/25 05/12/25 23:59 23:59 23:59 Intake Total 640.00 / 640.00 1212.50 / 1412.50 500 / 500 Output Total 150 / 150 400 / 650 550 / 550 Balance 490.00 / 490.00 812.50 / 762.50 -50 / -50 Lab / Micro Data 05/12/25 04:51 05/12/25 04:51 Labs: Laboratory Results - last 24 hr 05/11/25 11:25: POC Glucose 148 H 05/11/25 17:21: POC Glucose 114 H 05/11/25 21:16: POC Glucose 135 H 05/12/25 04:51: WBC 8.2, RBC 2.90 L, Hgb 8.8 L, Hct 27.3 L, MCV 94.1, MCH 30.3, MCHC 32.2, RDW Std Deviation 51.3 H, RDW Coeff of Cecil 14.7 H, Plt Count 173, MPV 9.6, Immature Gran % (Auto) 1.000 H, Neut % (Auto) 56.2, Lymph % (Auto) 17.4 L, [place] % (Auto) 7.6, Eos % (Auto) 17.1 H, Baso % (Auto) 0.7, Absolute Neuts (auto) 4.6, Absolute Lymphs (auto) 1.42, Nucleated RBC % 0, Sodium 136, Potassium 3.9, Chloride 103, Carbon Dioxide 21.6, Anion Gap 11, BUN 31 H, Creatinine 1.10, Estim Creat Clear Calc 50.43, Est GFR (MDRD) Non-Af 52 L, BUN/Creatinine Ratio 28.1 H, Glucose 108 H, Calcium 8.6 05/12/25 06:26: POC Glucose 104 Micro: Microbiology 05/11/25 09:30 Wound - Left Foot Gram Stain - Final 05/11/25 09:30 Wound - Left Foot Wound Culture - Preliminary Gram positive organism Radiography Diagnostic Testing: Radiology Impression Echocardiogram 05/10/25 20:40 Interpretation Summary Normal LV size. Normal left ventricular thickness. Contrast was utilized demonstrating no segmental wall motion abnormalities and unable to assess diastolic function due to mitral annular calcification The right ventricle is normal in size, function, and thickness. Diffuse mitral valve thickening with moderate mitral annular calcifications but only mild regurgitation There is evidence of mild mitral valve stenosis with a mean gradient of 4 mmHg peak gradient 11 mmHg at a heart rate regular and 80 bpm Cannot fully determine the trileaflet structure of the aortic valve but no definitive stenosis noted Cannot assess right-sided pressures accurately, however IVC is mildly dilated with normal collapsibility Ordering Physician: Holly Lopez Referring Physician: Corby Heller Chi Performed By: Rose Marie Greenwood, ESHA, RVT Lower Extremity MRI 05/11/25 20:40 IMPRESSION: Findings are suggestive of little toe cellulitis with overlying small soft tissue defects/ulcers, related cortical irregularities of its distal phalanx with marrow edema of its phalanges suggesting osteomyelitis. Focal subcutaneous soft tissue thickening of the planter aspect of the little toe metatarsophalangeal joint, possibly adventitial bursitis. Diffuse extensive subcutaneous soft tissue edema of the foot most evident along its dorsolateral aspect with no obvious marginally enhancing abscesses formation. Diffuse atrophic changes of the examine foot muscles. Degenerative arthropathic changes of the inter-tarsal and to less extent tarsometatarsal articulations. Mild Degenerative arthropathic changes of the big and little toes metatarsophalangeal. Mild metatarsophalangeal, tarsometatarsal and intertarsal joints effusion. Reading Location: [place] [id number] Physical Exam Const alert, oriented x3 and no apparent distress Constitutional Narrative: Left 5th toe with ulceration plantar sulcus down to flexor tendon, no probe to bone, tissues remain healthy, viable and granular, there is no drainage and no maloder at this time, there is no visible abscess, no fluctuance, no crepitus, no necrosis, there is less erythema to the left 5th toe and receeding from dorsal forefoot, no other open lesions bilateral foot. There is minimal to no pain to left 5th toe. No evidence of acute ischemia left foot or to the toes, CFT < 2 seconds to all toes on left foot. Assessment & Plan Assessment/Plan (1) Type 2 diabetes mellitus with foot ulcer: (2) Cellulitis of left lower limb: (3) Ulcer of left foot with muscle involvement without evidence of necrosis: PLAN: Plan Evaluation performed. Reviewed diagnostic data. There is an ulceration sub left 5th toe at area of the sulcus. No debridement needed at this time. Improving. MRI was reviewed and findings c/w osteomyelitis to left 5th toe - discussed with patient - discussed nonsurgical vs surgical options. Surgery would entail left 5th toe amputation while nonsurgical would be local wound care and antibiotic therapy. She relates she would like to try to save the toe. A culture was obtained of the ulceration. Patient is on Doxy and Unasyn, Infectious Disease on consult. Noninvasive lower extremity arterial studies ordered - there is no evidence of acute ischemia to foot bilateral. Wound care left 5th toe: Betadine soln topically and gauze dressing BID. No weightbearing to toes left foot. Ordered surgical shoe. She requested a surgical shoe for right foot as well to keep things balanced. Podiatry will continue to follow. Discussed with Dr. Miranda.
--- NOTE | 2025-05-12 14:56 | PN.HOSP_ITS ---
Reason for Visit Chief Complaint: Left toe pain and swelling Objective Data Objective Data Vital Signs: Vital Signs Temp Pulse Resp BP Pulse Ox O2 Del Method O2 Flow Rate 98.3 F 73 20 H 135/54 H 94 Room Air 1 05/12/25 08:59 05/12/25 08:59 05/12/25 08:59 05/12/25 08:59 05/12/25 08:59 05/12/25 08:59 05/11/25 10:00 Oxygen Flow Rate (L/min) 1 Oxygen Delivery Method Room Air Weight: 254 lb 3.088 oz Body Mass Index (BMI) 49.6 Intake & Output: Intake and Output for Last 24 Hours 05/10/25 05/11/25 05/12/25 23:59 23:59 23:59 Intake Total 640.00 / 640.00 1212.50 / 1412.50 500 / 500 Output Total 150 / 150 400 / 650 550 / 550 Balance 490.00 / 490.00 812.50 / 762.50 -50 / -50 Lab / Micro Data 05/12/25 04:51 05/12/25 04:51 Labs: Laboratory Results - last 24 hr 05/11/25 17:21: POC Glucose 114 H 05/11/25 21:16: POC Glucose 135 H 05/12/25 04:51: WBC 8.2, RBC 2.90 L, Hgb 8.8 L, Hct 27.3 L, MCV 94.1, MCH 30.3, MCHC 32.2, RDW Std Deviation 51.3 H, RDW Coeff of Cecil 14.7 H, Plt Count 173, MPV 9.6, Immature Gran % (Auto) 1.000 H, Neut % (Auto) 56.2, Lymph % (Auto) 17.4 L, Mcminn % (Auto) 7.6, Eos % (Auto) 17.1 H, Baso % (Auto) 0.7, Absolute Neuts (auto) 4.6, Absolute Lymphs (auto) 1.42, Nucleated RBC % 0, Sodium 136, Potassium 3.9, Chloride 103, Carbon Dioxide 21.6, Anion Gap 11, BUN 31 H, Creatinine 1.10, Estim Creat Clear Calc 50.43, Est GFR (MDRD) Non-Af 52 L, BUN/Creatinine Ratio 28.1 H, Glucose 108 H, Calcium 8.6 05/12/25 06:26: POC Glucose 104 05/12/25 12:14: POC Glucose 149 H Micro: Microbiology 05/11/25 09:30 Wound - Left Foot Gram Stain - Final 05/11/25 09:30 Wound - Left Foot Wound Culture - Preliminary Gram positive organism Radiography Diagnostic Testing: Radiology Impression Echocardiogram 05/10/25 20:40 Interpretation Summary Normal LV size. Normal left ventricular thickness. Contrast was utilized demonstrating no segmental wall motion abnormalities and unable to assess diastolic function due to mitral annular calcification The right ventricle is normal in size, function, and thickness. Diffuse mitral valve thickening with moderate mitral annular calcifications but only mild regurgitation There is evidence of mild mitral valve stenosis with a mean gradient of 4 mmHg peak gradient 11 mmHg at a heart rate regular and 80 bpm Cannot fully determine the trileaflet structure of the aortic valve but no definitive stenosis noted Cannot assess right-sided pressures accurately, however IVC is mildly dilated with normal collapsibility Ordering Physician: Holly Lopez Referring Physician: Corby Heller Chi Performed By: Rose Marie Greenwood, RDCS, RVT Lower Extremity MRI 05/11/25 20:40 IMPRESSION: Findings are suggestive of little toe cellulitis with overlying small soft tissue defects/ulcers, related cortical irregularities of its distal phalanx with marrow edema of its phalanges suggesting osteomyelitis. Focal subcutaneous soft tissue thickening of the planter aspect of the little toe metatarsophalangeal joint, possibly adventitial bursitis. Diffuse extensive subcutaneous soft tissue edema of the foot most evident along its dorsolateral aspect with no obvious marginally enhancing abscesses formation. Diffuse atrophic changes of the examine foot muscles. Degenerative arthropathic changes of the inter-tarsal and to less extent tarsometatarsal articulations. Mild Degenerative arthropathic changes of the big and little toes metatarsophalangeal. Mild metatarsophalangeal, tarsometatarsal and intertarsal joints effusion. Reading Location: [place] [id number] Physical Exam Narrative Seen and examined with the slab conditioner supervisor Dr. Bhardwaj Patient stated she does not like poking her finger therefore does not [place] and wants continuous glucose monitoring device and is talked to her PCP Dr. Heller for that. Left fifth toe has medial side erythema and a small ulcer. Physical exam General: Alert, Oriented x3, Cooperative. BMI 49.6 kg/m?, morbid obesity HEENT: Atraumatic, PERRLA, EOMI, Normocephalic. Oral: Oral mucosa moist. No Gingival or Mucosal Lesions/ Ulcerations Neck: Supple, No JVD, Negative Carotid Bruits Chest wall/Lungs: Air entry diminished in bilateral lung bases. No crepitation/rhonchi Cardiovascular: Regular rate and rhythm, Normal S1,S2, No M/G/R Abdomen: Bowel Sounds Present, Soft, Non Tender, Non-Distended : No dysuria. No renal angle tenderness. No suprapubic tenderness. Extremities: No edema, Capillary Refill Less than 3 Seconds Skin: Small ulcer with visible tiny possible tendon but no bone felt on the medial side of left fifth toe. Musculoskeletal: No Tenderness to Palpation of Joints or Extremities Neurological: Cranial nerves II-XII grossly intact, DTR 2+/4. No acute focal neurological deficit. Psych/Mental Status: Normal Affect, Appropriate. Assessment & Plan Assessment/Plan (1) Diabetic foot infection: PLAN: Plan 75-year-old female admitted with left fifth toe pain with radiation towards the ankle for several weeks. Redness, swelling on left lateral foot for past 2 days. History with complicated DM type II with neuropathy. Follows with Dr. Geiger. # Cellulitis of foot in diabetic patient -Elevated ESR, CRP -X-ray of foot only showed soft tissue swelling. MRI is pending. ? Initially started on IV vancomycin and Zosyn. Had rash with Vanco in ED. Vancomycin narrowed down to doxycycline. ID Zosyn narrowed to Unasyn. Was seen and examined with slab conditioner supervisor. Further plan after MRI. Culture was taken and sent. 05/12: MRI shows cortical irregularity of distal phalanx of left fifth toe with marrow edema suggesting osteomyelitis. Little toe cellulitis with soft tissue ulcer. Subcutaneous soft tissue thickening. This was discussed with Dr. Bhardwaj and he said this is very mild and patient is okay with treatment with IV antibiotics only. Will wait for the culture and then narrow the antibiotic probably on Wednesday with opinion from ID clinical documentation consultant. # Intermittent tachycardia -Patient has intermittently had heart rates up to 140s/150?s with narrow complex tachycardia that would start and stop quickly, suspected to be slow SVT. EKG right after episode with sinus rhythm with first-degree AV block. Patient asymptomatic during those events -Monitor on telemetry -Echocardiogram Accu-Chek before meals and at bedtime with Humalog sliding scale coverage and hypoglycemia protocol. May 2023 shows EF 45%, mild MR mild TR, RVSP 45 emergency. -TSH 2.81. Heart rate 76/min. Echo is ordered - If further episodes or persistent may need to start beta-rivera or consider cardiology consult 05/12: Tachycardia has resolved. #Type 2 diabetes mellitus complicated with diabetic neuropathy -Glucose checks and sliding scale insulin - A1c 6.6%. Glucose is reasonably controlled less than 150 mg/dL. 05/12: Glucoses controlled. #Hypothyroidism -Continue Synthroid #SUSAN -Continue home NIPPV if applicable #Depression/anxiety -Continue home medications # Restless leg syndrome -continue patient's home medication regimen # History of asthma - Budesonide inhaler as needed #Morbid obesity -BMI documented as 48 kg/m? at time of admission -Complicates treatment, prognosis, outcomes -Recommend weight loss and lifestyle changes #DVT ppx: Lovenox 40 mg SQ twice daily Microbiology Past 72 Hours 05/11/25 09:30 Wound - Left Foot Gram Stain - Final Laboratory Results 05/10/25 14:55: WBC 11.6 H, RBC 3.58 L, Hgb 10.9 L, Hct 33.8 L, MCV 94.4, MCH 30.4, MCHC 32.2, RDW Std Deviation 52.8 H, RDW Coeff of Cecil 15.2 H, Plt Count 210, MPV 10.2, Immature Gran % (Auto) 0.800, Neut % (Auto) 68.1, Lymph % (Auto) 17.4 L, Mcminn % (Auto) 6.7, Eos % (Auto) 6.7 H, Baso % (Auto) 0.3, Absolute Neuts (auto) 7.9 H, Absolute Lymphs (auto) 2.02, Nucleated RBC % 0, Differential Comment SCANNED, Platelet Estimate ADEQUATE, ESR 37 H, Sodium 138, Potassium 3.9, Chloride 101, Carbon Dioxide 23.5, Anion Gap 14, BUN 30 H, Creatinine 1.01, Estim Creat Clear Calc 58.10, Est GFR (MDRD) Non-Af 58 L, BUN/Creatinine Ratio 29.8 H, Glucose 152 H, Lactic Acid 1.7, Calcium 9.6, C-React Prot Ext Range 85.00 H, TSH 2.810 05/10/25 22:06: POC Glucose 170 H 05/11/25 06:28: WBC 11.0, RBC 2.96 L, Hgb 8.9 L, Hct 27.8 L, MCV 93.9, MCH 30.1, MCHC 32.0, RDW Std Deviation 52.9 H, RDW Coeff of Cecil 15.1 H, Plt Count 192, MPV 9.7, Immature Gran % (Auto) 0.800, Neut % (Auto) 68.5, Lymph % (Auto) 14.5 L, Mcminn % (Auto) 6.9, Eos % (Auto) 8.9 H, Baso % (Auto) 0.4, Absolute Neuts (auto) 7.5, Absolute Lymphs (auto) 1.59, Nucleated RBC % 0, ESR 26, Sodium 137, Potassium 4.3, Chloride 105, Carbon Dioxide 21.2, Anion Gap 11, BUN 31 H, Creatinine 1.14, Estim Creat Clear Calc 48.66 L, Est GFR (MDRD) Non-Af 50 L, B UN/Creatinine Ratio 27.5 H, Glucose 113 H, Hemoglobin A1c 6.6 H, Uric Acid 7.9 H , Calcium 8.6, C-React Prot Ext Range 98.10 H 05/11/25 06:36: POC Glucose 113 H 05/11/25 11:25: POC Glucose 148 H Echo June 19 Interpretation Summary The study was technically difficult. The left ventricular ejection fraction is 45 %. Moderate mitral annular calcification. Mild (1+) mitral valve insufficiency. Mild tricuspid valve insufficiency. Right ventricular systolic pressure estimated to be 45 mmHg. Clinical Impression(s) from Imaging Studies Foot X-Ray 05/10/25 15:20 IMPRESSION: Profound osteopenia, no demonstrated fracture, please see discussion above Polyarticular arthrosis Calcaneal spurs Soft tissue swelling Charges/Coding Visit Charges Inpatient E&M: 97258 Subs Hosp L2
[2025-05-12 15:00] VITALS: BP 129/59; PULSE 80; RESP 20; TEMP 36.9; O2SAT 93
[2025-05-12 21:10] VITALS: BP 117/56; PULSE 89; RESP 18; TEMP 36.5; O2SAT 94
[2025-05-12] MEDS: 0.9% Saline Lock 10 ML Syringe IV ×2 (21:16→22:33)
[2025-05-12] MEDS: MELATONIN 10 MG TABLET PO (21:17)
[2025-05-12 21:54] VITALS: BP 108/54; PULSE 78; RESP 24; TEMP 37.4; O2SAT 91
--- NOTE | 2025-05-12 21:54 | NURSING ---
Pt called out stating she was getting hot. This RN to patient room. Pt reported facial flushing, fatigue, B/L arm weakness. This RN obtained VS: T99.4, BP108/54, HR78, 91% on room air, RR24. Blood glucose of 152. Of note, IV Unasyn had been initiated at 2115, so this RN paused the infusion. Primary RN, Angie tran and contacting physician.
[2025-05-12 22:05] VITALS: O2SAT 95
[2025-05-12] MEDS: DiphenhydrAMINE 50 MG/ML Syringe 12.5 MG IV (22:33)
[2025-05-13 02:50] VITALS: BP 112/63; PULSE 70; RESP 18; TEMP 36.5; O2SAT 97
[2025-05-13] MEDS: Ampicillin/Sulbactam 3 GM in 0.9% Normal Saline (100mL MB+) 100 ML IV ×3 (06:24→22:18)
[2025-05-13] MEDS: 0.9% Saline Lock 10 ML Syringe IV ×2 (06:24→22:18)
[2025-05-13 06:48] LABS: Anion Gap 11 (5-15); BUN 27 mg/dL (4-19); BUN/Creat Ratio 26.1 RATIO (10-20); Calcium,Total 8.9 mg/dL (7.6-11.0); Carbon Dioxide 22.9 mmol/L (21.0-32.0); Chloride 104 mmol/L (98-108); Estimated Creatinine Clearance 54.39 ml/min (50-250); Glucose 111 mg/dL (70-99); Potassium 4.3 mmol/L (3.3-5.1)
[2025-05-13 08:11] VITALS: BP 131/61; PULSE 66; RESP 18; TEMP 37.1; O2SAT 95
[2025-05-13] MEDS: Fluticasone 0.05% 1 SPRAY NASAL.SRY 2 SPRAY NASAL (08:17)
[2025-05-13] MEDS: Budesonide Respules 0.5 MG/2 ML AMPUL.NEB. INHALATION (09:22)
[2025-05-13 09:27] VITALS: PULSE 81; RESP 16
--- NOTE | 2025-05-13 11:05 | PCM.PROGNOTE ---
Subjective Subjective Patient was seen today for follow up on left 5th toe. She is resting in chair, no new complaints. No f/c/n/v. She denies pain. Objective Data Objective Data Vital Signs: Vital Signs Temp Pulse Resp BP Pulse Ox O2 Del Method O2 Flow Rate 98.8 F 81 16 131/61 H 95 Room Air 2 05/13/25 08:11 05/13/25 09:27 05/13/25 09:27 05/13/25 08:11 05/13/25 08:11 05/13/25 08:25 05/12/25 22:05 Oxygen Flow Rate (L/min) 2 Oxygen Delivery Method Room Air Weight: 115.3 kg Body Mass Index (BMI) 49.6 Intake & Output: Intake and Output for Last 24 Hours 05/11/25 05/12/25 05/13/25 23:59 23:59 23:59 Intake Total 1212.50 / 1412.50 912.5 / 912.5 100 / 100 Output Total 400 / 650 950 / 950 1500 / 1500 Balance 812.50 / 762.50 -37.5 / -37.5 -1400 / -1400 Lab / Micro Data 05/12/25 04:51 05/13/25 05:33 Labs: Laboratory Results - last 24 hr 05/12/25 12:14: POC Glucose 149 H 05/12/25 16:28: POC Glucose 128 H 05/12/25 19:47: POC Glucose 130 H 05/12/25 21:53: POC Glucose 152 H 05/13/25 05:33: Sodium 138, Potassium 4.3, Chloride 104, Carbon Dioxide 22.9, Anion Gap 11, BUN 27 H, Creatinine 1.02, Estim Creat Clear Calc 54.39, Est GFR (MDRD) Non-Af 57 L, BUN/Creatinine Ratio 26.1 H, Glucose 111 H, Calcium 8.9 05/13/25 06:23: POC Glucose 115 H Micro: Microbiology 05/11/25 09:30 Wound - Left Foot Gram Stain - Final 05/11/25 09:30 Wound - Left Foot Wound Culture - Preliminary Gram positive yesica Gram Positive Cocci Physical Exam Const alert, oriented x3 and no apparent distress Constitutional Narrative: Left 5th toe with ulceration plantar sulcus down to flexor tendon, no probe to bone, tissues remain healthy, viable and granular, there is no drainage and no maloder at this time, there is no visible abscess, no fluctuance, no crepitus, no necrosis, there is significantly less erythema to the left 5th toe/forefoot, no other open lesions bilateral foot. There is minimal to no pain to ulcer left 5th toe, otherwise no pain. No evidence of acute ischemia left foot or to the toes, CFT < 2 seconds to all toes on left foot. Assessment & Plan Assessment/Plan (1) Type 2 diabetes mellitus with foot ulcer: (2) Cellulitis of left lower limb: (3) Ulcer of left foot with muscle involvement without evidence of necrosis: PLAN: Plan Evaluation performed. Reviewed diagnostic data. There is an ulceration sub left 5th toe at area of the sulcus. No debridement needed at this time. Improving. MRI was reviewed and findings c/w osteomyelitis to left 5th toe - discussed with patient - discussed nonsurgical vs surgical options. Surgery would entail left 5th toe amputation while nonsurgical would be local wound care and antibiotic therapy. She relates she would like to try to continue to save the toe. There has been significant improvement since Wednesday. A culture was obtained of the ulceration. Reviewed gram positive cocci and yesica. Patient is on Doxy and Unasyn, Infectious Disease on consult. Noninvasive lower extremity arterial studies ordered - there is no evidence of acute ischemia to foot bilateral. Wound care left 5th toe: Betadine soln topically and gauze dressing BID. No weightbearing to toes left foot. Ordered surgical shoe. She requested a surgical shoe for right foot as well to keep things balanced. Podiatry will continue to follow.
--- NOTE | 2025-05-13 11:49 | PCM.PN.HOSP ---
Reason for Visit Chief Complaint: Left toe pain and swelling Objective Data Objective Data Vital Signs: Vital Signs Temp Pulse Resp BP Pulse Ox O2 Del Method O2 Flow Rate 98.8 F 81 16 131/61 H 95 Room Air 2 05/13/25 08:11 05/13/25 09:27 05/13/25 09:27 05/13/25 08:11 05/13/25 08:11 05/13/25 08:25 05/12/25 22:05 Oxygen Flow Rate (L/min) 2 Oxygen Delivery Method Room Air Weight: 254 lb 3.088 oz Body Mass Index (BMI) 49.6 Intake & Output: Intake and Output for Last 24 Hours 05/11/25 05/12/25 05/13/25 23:59 23:59 23:59 Intake Total 1212.50 / 1412.50 912.5 / 912.5 100 / 100 Output Total 400 / 650 950 / 950 1500 / 1500 Balance 812.50 / 762.50 -37.5 / -37.5 -1400 / -1400 Lab / Micro Data 05/12/25 04:51 05/13/25 05:33 Labs: Laboratory Results - last 24 hr 05/12/25 12:14: POC Glucose 149 H 05/12/25 16:28: POC Glucose 128 H 05/12/25 19:47: POC Glucose 130 H 05/12/25 21:53: POC Glucose 152 H 05/13/25 05:33: Sodium 138, Potassium 4.3, Chloride 104, Carbon Dioxide 22.9, Anion Gap 11, BUN 27 H, Creatinine 1.02, Estim Creat Clear Calc 54.39, Est GFR (MDRD) Non-Af 57 L, BUN/Creatinine Ratio 26.1 H, Glucose 111 H, Calcium 8.9 05/13/25 06:23: POC Glucose 115 H Micro: Microbiology 05/11/25 09:30 Wound - Left Foot Gram Stain - Final 05/11/25 09:30 Wound - Left Foot Wound Culture - Preliminary Gram positive yesica Gram Positive Cocci Physical Exam Narrative Seen and examined Patient and the fan mail clerk agreed for IV antibiotic treatment. No surgery planned. Discussed with osteomyelitis MRI findings with the patient yesterday. Left fifth toe has medial side erythema and a small ulcer. Physical exam General: Alert, Oriented x3, Cooperative. BMI 49.6 kg/m?, morbid obesity HEENT: Atraumatic, PERRLA, EOMI, Normocephalic. Oral: Oral mucosa moist. No Gingival or Mucosal Lesions/ Ulcerations Neck: Supple, No JVD, Negative Carotid Bruits Chest wall/Lungs: Air entry diminished in bilateral lung bases. No crepitation/rhonchi Cardiovascular: Regular rate and rhythm, Normal S1,S2, No M/G/R Abdomen: Bowel Sounds Present, Soft, Non Tender, Non-Distended : No dysuria. No renal angle tenderness. No suprapubic tenderness. Extremities: No edema, Capillary Refill Less than 3 Seconds Skin: Small ulcer with visible tiny possible tendon but no bone felt on the medial side of left fifth toe. Healing. Musculoskeletal: No Tenderness to Palpation of Joints or Extremities Neurological: Cranial nerves II-XII grossly intact, DTR 2+/4. No acute focal neurological deficit. Psych/Mental Status: Normal Affect, Appropriate. Assessment & Plan Assessment/Plan (1) Diabetic foot infection: PLAN: Plan 75-year-old female admitted with left fifth toe pain with radiation towards the ankle for several weeks. Redness, swelling on left lateral foot for past 2 days. History with complicated DM type II with neuropathy. Follows with Dr. Geiger. # Cellulitis of foot in diabetic patient -Elevated ESR, CRP -X-ray of foot only showed soft tissue swelling. MRI is pending. ? Initially started on IV vancomycin and Zosyn. Had rash with Vanco in ED. Vancomycin narrowed down to doxycycline. ID Zosyn narrowed to Unasyn. Was seen and examined with fan mail clerk. Further plan after MRI. Culture was taken and sent. 05/12: MRI shows cortical irregularity of distal phalanx of left fifth toe with marrow edema suggesting osteomyelitis. Little toe cellulitis with soft tissue ulcer. Subcutaneous soft tissue thickening. This was discussed with Dr. Bhardwaj and he said this is very mild and patient is okay with treatment with IV antibiotics only. Will wait for the culture and then narrow the antibiotic probably on Wednesday with opinion from ID area development consultant. 05/13: Continue antibiotic doxycycline and Unasyn. Wound care dressing with Betadine solution twice daily. No weightbearing on the toes. Culture growing GPR and GPC. ID follow-up tomorrow anticipate discharge # Intermittent tachycardia -Patient has intermittently had heart rates up to 140s/150?s with narrow complex tachycardia that would start and stop quickly, suspected to be slow SVT. EKG right after episode with sinus rhythm with first-degree AV block. Patient asymptomatic during those events -Monitor on telemetry -Echocardiogram Accu-Chek before meals and at bedtime with Humalog sliding scale coverage and hypoglycemia protocol. May 2023 shows EF 45%, mild MR mild TR, RVSP 45 emergency. -TSH 2.81. Heart rate 76/min. Echo is ordered - If further episodes or persistent may need to start beta-rivera or consider cardiology consult 05/12: Tachycardia has resolved. #Type 2 diabetes mellitus complicated with diabetic neuropathy -Glucose checks and sliding scale insulin - A1c 6.6%. Glucose is reasonably controlled less than 150 mg/dL. 05/12: Glucoses controlled. 05/13: Glucoses reasonably well-controlled. #Hypothyroidism -Continue Synthroid #SUSAN -Continue home NIPPV if applicable #Depression/anxiety -Continue home medications # Restless leg syndrome -continue patient's home medication regimen # History of asthma - Budesonide inhaler as needed #Morbid obesity -BMI documented as 48 kg/m? at time of admission -Complicates treatment, prognosis, outcomes -Recommend weight loss and lifestyle changes #DVT ppx: Lovenox 40 mg SQ twice daily Microbiology Past 72 Hours 05/11/25 09:30 Wound - Left Foot Gram Stain - Final 05/11/25 09:30 Wound - Left Foot Wound Culture - Preliminary Gram positive yesica Gram Positive Cocci Laboratory Results 05/12/25 12:14: POC Glucose 149 H 05/12/25 16:28: POC Glucose 128 H 05/12/25 19:47: POC Glucose 130 H 05/12/25 21:53: POC Glucose 152 H 05/13/25 05:33: Sodium 138, Potassium 4.3, Chloride 104, Carbon Dioxide 22.9, Anion Gap 11, BUN 27 H, Creatinine 1.02, Estim Creat Clear Calc 54.39, Est GFR (MDRD) Non-Af 57 L, BUN/Creatinine Ratio 26.1 H, Glucose 111 H, Calcium 8.9 05/13/25 06:23: POC Glucose 115 H Echo June 19 Interpretation Summary The study was technically difficult. The left ventricular ejection fraction is 45 %. Moderate mitral annular calcification. Mild (1+) mitral valve insufficiency. Mild tricuspid valve insufficiency. Right ventricular systolic pressure estimated to be 45 mmHg. Clinical Impression(s) from Imaging Studies Foot X-Ray 05/10/25 15:20 IMPRESSION: Profound osteopenia, no demonstrated fracture, please see discussion above Polyarticular arthrosis Calcaneal spurs Soft tissue swelling Charges/Coding Visit Charges Inpatient E&M: 52222 Subs Hosp L2
[2025-05-13 15:16] VITALS: BP 104/75; PULSE 91; RESP 16; TEMP 36.9; O2SAT 97
[2025-05-13 16:20] VITALS: PULSE 89; RESP 16
[2025-05-13] MEDS: MELATONIN 10 MG TABLET PO (22:17)
[2025-05-13 22:20] VITALS: BP 132/64; PULSE 89; RESP 18; TEMP 36.2; O2SAT 95
[2025-05-14] VITALS (8 sets, daily range): BP systolic 112–139; BP diastolic 62–68; PULSE 76–86; RESP 12–18; TEMP 36.7–37.2; O2SAT 91–95
[2025-05-14 05:19] LABS: Hematocrit 27.1 % (37-47); Hemoglobin 8.8 g/dL (12.0-15.0); Immature Granulocytes Count 0.080 X10^3/uL (0.0-0.0); Mean Corp Hgb Conc 32.5 g/dL (32-36); Mean Corpuscular Volume 93.4 fL (81-99); Mean Platelet Vol. 9.4 fl (6.2-12.0); NRBC Flagged by Analyzer 0 % (0-5); Platelet Count 185 K/mm3 (150-450); RBC Distribution Width CV 14.8 % (11.6-14.6); RBC Distribution Width SD 50.6 fl (35.1-43.9); Red Blood Count 2.90 M/mm3 (4.2-5.4); White Blood Count 8.0 K/mm3 (4.4-11.0)
[2025-05-14 05:43] LABS: Anion Gap 13 (5-15); BUN 28 mg/dL (4-19); BUN/Creat Ratio 26.1 RATIO (10-20); Calcium,Total 9.3 mg/dL (7.6-11.0); Carbon Dioxide 21.7 mmol/L (21.0-32.0); Chloride 105 mmol/L (98-108); Estimated Creatinine Clearance 50.89 ml/min (50-250); Glucose 117 mg/dL (70-99); Potassium 3.8 mmol/L (3.3-5.1)
[2025-05-14] MEDS: Ampicillin/Sulbactam 3 GM in 0.9% Normal Saline (100mL MB+) 100 ML IV ×3 (06:04→22:05)
[2025-05-14] MEDS: 0.9% Saline Lock 10 ML Syringe IV ×4 (06:08→22:30)
[2025-05-14] MEDS: Fluticasone 0.05% 1 SPRAY NASAL.SRY 2 SPRAY NASAL (09:30)
[2025-05-14] MEDS: guaiFENesin/D-Methorphan TAB.SR.12H 2 TABLET PO ×2 (11:27→22:04)
--- NOTE | 2025-05-14 13:04 | PCM.PN.ID ---
Physical Exam Narrative Feeling better, some cough and wheezing. Toe less sore. No fever, no n/v/d. Const alert and no apparent distress General Appearance: cooperative Resp normal air movement and clear to auscultation bilaterally Cardio regular rate and regular rhythm GI soft to palpation, non-tender and non-distended Skin Skin Narrative: no new rash ID ID: Route of nutrition/ use of supplements: [] Nutritional Intake: [] IV Site: [] Harris Catheter: [] Assessment & Plan Assessment/Plan (1) Diabetic foot infection: PLAN: Wound cx with corynebacter, MS-CoNS, and GPR. Followed by Dr. Bhardwaj. MRI reviewed, suspected osteo. On doxy and zosyn. Had rash with vanc in ED. Cont doxy, unasyn. Plan on discharge home with 6 weeks total abx with po doxy 100mg bid and augmentin 875mg bid, start date 05/10/25, stop date 06/21/25. ID followup in 2 weeks. Will follow
--- NOTE | 2025-05-14 15:45 | CASEMGMT ---
ULISES MILLAN received notification from [facility] that they are able to accept patient with planned start of care for Wednesday. ULISES CM in to update patient, patient voiced appreciation and had no further questions or concerns. CM will continue to follow this patient and plan for safe discharge.
--- NOTE | 2025-05-14 16:46 | PCM.PN.HOSP ---
Reason for Visit Chief Complaint: Left toe pain and swelling Objective Data Objective Data Vital Signs: Vital Signs Temp Pulse Resp BP Pulse Ox O2 Del Method O2 Flow Rate 99.0 F 83 18 139/68 H 93 Room Air 1 05/14/25 14:29 05/14/25 14:32 05/14/25 14:32 05/14/25 14:29 05/14/25 14:29 05/14/25 14:29 05/14/25 02:40 Oxygen Flow Rate (L/min) 1 Oxygen Delivery Method Room Air Weight: 254 lb 3.088 oz Body Mass Index (BMI) 49.6 Intake & Output: Intake and Output for Last 24 Hours 05/12/25 05/13/25 05/14/25 23:59 23:59 23:59 Intake Total 912.5 / 912.5 1050 / 1050 500 / 500 Output Total 950 / 950 1500 / 1500 400 / 400 Balance -37.5 / -37.5 -450 / -450 100 / 100 Lab / Micro Data 05/14/25 04:11 05/14/25 04:11 Labs: Laboratory Results - last 24 hr 05/13/25 16:10: POC Glucose 119 H 05/13/25 22:14: POC Glucose 97 05/14/25 04:11: WBC 8.0, RBC 2.90 L, Hgb 8.8 L, Hct 27.1 L, MCV 93.4, MCH 30.3, MCHC 32.5, RDW Std Deviation 50.6 H, RDW Coeff of Cecil 14.8 H, Plt Count 185, MPV 9.4, Immature Gran % (Auto) 1.000 H, Neut % (Auto) 56.9, Lymph % (Auto) 19.5, [place] % (Auto) 7.9, Eos % (Auto) 13.9 H, Baso % (Auto) 0.8, Absolute Neuts (auto) 4.6, Absolute Lymphs (auto) 1.56, Nucleated RBC % 0, Sodium 139, Potassium 3.8, Chloride 105, Carbon Dioxide 21.7, Anion Gap 13, BUN 28 H, Creatinine 1.09, Estim Creat Clear Calc 50.89, Est GFR (MDRD) Non-Af 53 L, BUN/Creatinine Ratio 26.1 H, Glucose 117 H, Calcium 9.3 05/14/25 06:10: POC Glucose 109 H 05/14/25 11:26: POC Glucose 146 H Micro: Microbiology 05/11/25 09:30 Wound - Left Foot Gram Stain - Final 05/11/25 09:30 Wound - Left Foot Wound Culture - Preliminary Corynebacterium diphtheriae Staphylococcus capitis Gram positive organism Radiography Diagnostic Testing: Radiology Impression Extremity Arterial Study 05/11/25 09:44 Interpretation Summary Triphasic Doppler waveforms are noted at ankle level bilaterally. Pulse-volume recordings appear satisfactory at all levels bilaterally. Resting ankle-brachial indices are normal bilaterally. The right digital-brachial index is normal. The left digital-brachial index is low-normal. There is no evidence of significant arterial occlusive disease in the lower extremities bilaterally. Ordering Physician: Luis Bhardwaj Referring Physician: Corby Heller Chi Performed By: NELLIE PARIS RVT Physical Exam Narrative Seen and examined In the morning patient felt like asthma exacerbation with shortness of breath, chest tightness and wheezing. Mild dry cough. Seen by ID and recommended oral antibiotics for discharge Physical exam General: Alert, Oriented x3, Cooperative. BMI 49.6 kg/m?, morbid obesity HEENT: Atraumatic, PERRLA, EOMI, Normocephalic. Oral: Oral mucosa moist. No Gingival or Mucosal Lesions/ Ulcerations Neck: Supple, No JVD, Negative Carotid Bruits Chest wall/Lungs: Air entry diminished in both lungs. Bilateral wheezing. Cardiovascular: Regular rate and rhythm, Normal S1,S2, No M/G/R Abdomen: Bowel Sounds Present, Soft, Non Tender, Non-Distended : No dysuria. No renal angle tenderness. No suprapubic tenderness. Extremities: No edema, Capillary Refill Less than 3 Seconds Skin: Small ulcer with visible tiny possible tendon but no bone felt on the medial side of left fifth toe. Healing. Musculoskeletal: No Tenderness to Palpation of Joints or Extremities Neurological: Cranial nerves II-XII grossly intact, DTR 2+/4. No acute focal neurological deficit. Psych/Mental Status: Normal Affect, Appropriate. Assessment & Plan Assessment/Plan (1) Diabetic foot infection: PLAN: Plan 75-year-old female admitted with left fifth toe pain with radiation towards the ankle for several weeks. Redness, swelling on left lateral foot for past 2 days. History with complicated DM type II with neuropathy. Follows with Dr. Geiger # Cellulitis of foot in diabetic patient -Elevated ESR, CRP -X-ray of foot only showed soft tissue swelling. MRI is pending. ? Initially started on IV vancomycin and Zosyn. Had rash with Vanco in ED. Vancomycin narrowed down to doxycycline. ID Zosyn narrowed to Unasyn. Was seen and examined with battery test engineer. Further plan after MRI. Culture was taken and sent. 05/12: MRI shows cortical irregularity of distal phalanx of left fifth toe with marrow edema suggesting osteomyelitis. Little toe cellulitis with soft tissue ulcer. Subcutaneous soft tissue thickening. This was discussed with Dr. Bhardwaj and he said this is very mild and patient is okay with treatment with IV antibiotics only. Will wait for the culture and then narrow the antibiotic probably on Wednesday with opinion from ID international travel consultant. 05/13: Continue antibiotic doxycycline and Unasyn. Wound care dressing with Betadine solution twice daily. No weightbearing on the toes. Culture growing GPR and GPC. ID follow-up tomorrow anticipate discharge 05/14: Prelim wound culture growing corynebacterium, Staph capitis/CoNS and GPR Was seen by ID and recommended discharge antibiotics, 6 weeks total abx with po doxy 100mg bid and augmentin 875mg bid, start date 05/10/25, stop date 06/21/25. ID followup in 2 weeks. But the patient is not ready for discharge because of mild asthma exacerbation as mentioned below Mild asthma exacerbation: Patient has cough shortness of breath chest tightness. Started on scheduled bronchodilator, IV Solu-Medrol, Mucinex, incentive spirometry and Pep. I anticipate that patient might be better tomorrow for discharge. # Intermittent tachycardia -Patient has intermittently had heart rates up to 140s/150?s with narrow complex tachycardia that would start and stop quickly, suspected to be slow SVT. EKG right after episode with sinus rhythm with first-degree AV block. Patient asymptomatic during those events -Monitor on telemetry -Echocardiogram Accu-Chek before meals and at bedtime with Humalog sliding scale coverage and hypoglycemia protocol. May 2023 shows EF 45%, mild MR mild TR, RVSP 45 emergency. -TSH 2.81. Heart rate 76/min. Echo is ordered - If further episodes or persistent may need to start beta-rivera or consider cardiology consult 05/12: Tachycardia has resolved. #Type 2 diabetes mellitus complicated with diabetic neuropathy -Glucose checks and sliding scale insulin - A1c 6.6%. Glucose is reasonably controlled less than 150 mg/dL. 05/12: Glucoses controlled. 05/13: Glucoses reasonably well-controlled. #Hypothyroidism -Continue Synthroid #SUSAN -Continue home NIPPV if applicable #Depression/anxiety -Continue home medications # Restless leg syndrome -continue patient's home medication regimen # History of asthma - Budesonide inhaler as needed #Morbid obesity -BMI documented as 48 kg/m? at time of admission -Complicates treatment, prognosis, outcomes -Recommend weight loss and lifestyle changes #DVT ppx: Lovenox 40 mg SQ twice daily Microbiology Past 72 Hours 05/11/25 09:30 Wound - Left Foot Gram Stain - Final 05/11/25 09:30 Wound - Left Foot Wound Culture - Preliminary Corynebacterium diphtheriae Staphylococcus capitis Gram positive organism Laboratory Results 05/13/25 16:10: POC Glucose 119 H 05/13/25 22:14: POC Glucose 97 05/14/25 04:11: WBC 8.0, RBC 2.90 L, Hgb 8.8 L, Hct 27.1 L, MCV 93.4, MCH 30.3, MCHC 32.5, RDW Std Deviation 50.6 H, RDW Coeff of Cecil 14.8 H, Plt Count 185, MPV 9.4, Immature Gran % (Auto) 1.000 H, Neut % (Auto) 56.9, Lymph % (Auto) 19.5, Carl[place] % (Auto) 7.9, Eos % (Auto) 13.9 H, Baso % (Auto) 0.8, Absolute Neuts (auto) 4.6, Absolute Lymphs (auto) 1.56, Nucleated RBC % 0, Sodium 139, Potassium 3.8, Chloride 105, Carbon Dioxide 21.7, Anion Gap 13, BUN 28 H, Creatinine 1.09, Estim Creat Clear Calc 50.89, Est GFR (MDRD) Non-Af 53 L, BUN/Creatinine Ratio 26.1 H, Glucose 117 H, Calcium 9.3 05/14/25 06:10: POC Glucose 109 H 05/14/25 11:26: POC Glucose 146 H Echo June 19 Interpretation Summary The study was technically difficult. The left ventricular ejection fraction is 45 %. Moderate mitral annular calcification. Mild (1+) mitral valve insufficiency. Mild tricuspid valve insufficiency. Right ventricular systolic pressure estimated to be 45 mmHg. Clinical Impression(s) from Imaging Studies Foot X-Ray 05/10/25 15:20 IMPRESSION: Profound osteopenia, no demonstrated fracture, please see discussion above Polyarticular arthrosis Calcaneal spurs Soft tissue swelling Charges/Coding Visit Charges Inpatient E&M: 49439 Subs Hosp L2
--- NOTE | 2025-05-14 17:07 | PCM.PROGNOTE ---
Subjective Subjective Patient was seen today for follow up on left 5th toe. She is resting sitting in chair with feet elevated. She has been having breathing difficulty, relates it is due to her asthma, hospital medicine is following. Objective Data Objective Data Vital Signs: Vital Signs Temp Pulse Resp BP Pulse Ox O2 Del Method O2 Flow Rate 99.0 F 83 18 139/68 H 93 Room Air 1 05/14/25 14:29 05/14/25 14:32 05/14/25 14:32 05/14/25 14:29 05/14/25 14:29 05/14/25 14:29 05/14/25 02:40 Oxygen Flow Rate (L/min) 1 Oxygen Delivery Method Room Air Weight: 115.3 kg Body Mass Index (BMI) 49.6 Intake & Output: Intake and Output for Last 24 Hours 05/12/25 05/13/25 05/14/25 23:59 23:59 23:59 Intake Total 912.5 / 912.5 1050 / 1050 500 / 500 Output Total 950 / 950 1500 / 1500 400 / 400 Balance -37.5 / -37.5 -450 / -450 100 / 100 Lab / Micro Data 05/14/25 04:11 05/14/25 04:11 Labs: Laboratory Results - last 24 hr 05/13/25 22:14: POC Glucose 97 05/14/25 04:11: WBC 8.0, RBC 2.90 L, Hgb 8.8 L, Hct 27.1 L, MCV 93.4, MCH 30.3, MCHC 32.5, RDW Std Deviation 50.6 H, RDW Coeff of Cecil 14.8 H, Plt Count 185, MPV 9.4, Immature Gran % (Auto) 1.000 H, Neut % (Auto) 56.9, Lymph % (Auto) 19.5, [place] % (Auto) 7.9, Eos % (Auto) 13.9 H, Baso % (Auto) 0.8, Absolute Neuts (auto) 4.6, Absolute Lymphs (auto) 1.56, Nucleated RBC % 0, Sodium 139, Potassium 3.8, Chloride 105, Carbon Dioxide 21.7, Anion Gap 13, BUN 28 H, Creatinine 1.09, Estim Creat Clear Calc 50.89, Est GFR (MDRD) Non-Af 53 L, BUN/Creatinine Ratio 26.1 H, Glucose 117 H, Calcium 9.3 05/14/25 06:10: POC Glucose 109 H 05/14/25 11:26: POC Glucose 146 H Micro: Microbiology 05/11/25 09:30 Wound - Left Foot Gram Stain - Final 05/11/25 09:30 Wound - Left Foot Wound Culture - Preliminary Corynebacterium diphtheriae Staphylococcus capitis Gram positive organism Radiography Diagnostic Testing: Radiology Impression Extremity Arterial Study 05/11/25 09:44 Interpretation Summary Triphasic Doppler waveforms are noted at ankle level bilaterally. Pulse-volume recordings appear satisfactory at all levels bilaterally. Resting ankle-brachial indices are normal bilaterally. The right digital-brachial index is normal. The left digital-brachial index is low-normal. There is no evidence of significant arterial occlusive disease in the lower extremities bilaterally. Ordering Physician: Luis Bhardwaj Referring Physician: Corby Heller Chi Performed By: NELLIE PARIS RVT Physical Exam Const alert, oriented x3 and no apparent distress Constitutional Narrative: Left 5th toe with ulceration plantar sulcus down to flexor tendon - healing and closing, it is much smaller, no probe to bone, tissues remain healthy, viable and granular, there is no drainage and no maloder at this time, there is no visible abscess, no fluctuance, no crepitus, no necrosis, there is minimal residual erythema to the left 5th toe, no erythema to forefoot, no other open lesions bilateral foot. There is minimal to no pain to ulcer left 5th toe, she relates to some pain by the left 5th digit toenail, the toenail is chronically thickened and dystrophic but no acute findings, no drainage. No evidence of acute ischemia left foot or to the toes, CFT < 2 seconds to all toes on left foot. Assessment & Plan Assessment/Plan (1) Type 2 diabetes mellitus with foot ulcer: (2) Cellulitis of left lower limb: (3) Ulcer of left foot with muscle involvement without evidence of necrosis: PLAN: Plan Evaluation performed. Reviewed diagnostic data. Ulceration sub left 5th toe at area of the sulcus. No debridement needed at this time. Toe and wound continue to improve. MRI was reviewed and findings c/w osteomyelitis to left 5th toe - discussed with patient - we have discussed nonsurgical vs surgical options. Surgery would entail left 5th toe amputation while nonsurgical would be local wound care and antibiotic therapy. She relates she would like to try to continue to save the toe. There continues to be improvement noted. A culture was obtained of the ulceration. Reviewed and patient is on Doxy and Unasyn, Infectious Disease on consult, plan for oral antibiotics at discharge per ID service. Noninvasive lower extremity arterial studies ordered - there is no evidence of acute ischemia to foot bilateral - reviewed LEAS - there is normal GALO bilateral, there is low-normal TBI left - discussed with patient. Toe and wound left 5th digit improving and will consult vascular surgery if does not continue to improve/resolve. She agreed with this plan and approach. Wound care left 5th toe: Betadine soln topically and gauze dressing BID. No weightbearing to toes left foot. Use surgical shoe left foot with any ambulation and when in transit. Podiatry will continue to follow.
[2025-05-14] MEDS: Budesonide Respules 0.5 MG/2 ML AMPUL.NEB. INHALATION (19:14)
[2025-05-14] MEDS: MELATONIN 10 MG TABLET PO (22:04)
[2025-05-15 00:01] VITALS: PULSE 80; RESP 16
[2025-05-15] MEDS: BENZOCAINE/MENTHOL 1 LOZENGE MUCOUS MEM ×2 (01:31→06:09)
[2025-05-15 03:43] VITALS: BP 111/52; PULSE 89; RESP 18; TEMP 36.7; O2SAT 95
[2025-05-15] MEDS: 0.9% Saline Lock 10 ML Syringe IV (05:34)
[2025-05-15] MEDS: Ampicillin/Sulbactam 3 GM in 0.9% Normal Saline (100mL MB+) 100 ML IV (05:34)
[2025-05-15 05:50] VITALS: PULSE 81; RESP 16
[2025-05-15] MEDS: 0.9% Normal Saline (250mL Bag) 250 ML 15 ML IV (06:09)
--- NOTE | 2025-05-15 06:32 | NURSING ---
removed old dressing. Cleansed wound with betadine, covered with guaze and tape. no s/s of infection, pt tolerated well
[2025-05-15] MEDS: Fluticasone 0.05% 1 SPRAY NASAL.SRY 2 SPRAY NASAL (08:30)
[2025-05-15] MEDS: guaiFENesin/D-Methorphan TAB.SR.12H 2 TABLET PO (08:31)
[2025-05-15 08:40] VITALS: BP 118/66; PULSE 67; RESP 17; TEMP 36.6; O2SAT 94
--- NOTE | 2025-05-15 10:33 | WOUNDNOTE ---
wound photo: left 5th toe
--- NOTE | 2025-05-15 10:34 | WOUNDNOTE ---
skin photo: left foot
--- NOTE | 2025-05-15 10:35 | WOUNDNOTE ---
skin photo: left foot
--- NOTE | 2025-05-15 10:44 | PCM.DC.SUM ---
Providers Date of Admission: 05/10/25 Date of Discharge: 05/15/25 Primary Care Physician: Dr. Corby Heller MD Consultations 05/10/25 20:40 Consult: Onc/Wound/greaser operator Routine Comment: Reason for Consult:: Diabetic foot infection Consult: Podiatry Routine Consulting Provider: Luis Bhardwaj Reason for Consult: Diabetic foot infection EMERGENT Consult: No MD Notified: Yes Date Notified: 05/10/25 Time Notified: 18:52 Method of Notification: ED Physician Initiated 05/11/25 09:38 Consult: Infectious Disease Routine Consulting Provider: Rob Krishnamurthy Reason for Consult: left 5th toe medial ulcer, tendon? EMERGENT Consult: No MD Notified: Yes Date Notified: 05/11/25 Time Notified: 09:39 Method of Notification: Text Reason For Visit: LEFT DIABETIC FOOT INFECTION BRIEF EPISODES OF Diagnosis Discharge Diagnosis (1) Type 2 diabetes mellitus with foot ulcer: Status: Acute Code(s): E11.621 - Type 2 diabetes mellitus with foot ulcer; L97.509 - Non-pressure chronic ulcer of other part of unspecified foot with unspecified severity (2) Cellulitis of left lower limb: Status: Acute Code(s): L03.116 - Cellulitis of left lower limb (3) Ulcer of left foot with muscle involvement without evidence of necrosis: Status: Acute Code(s): L97.525 - Non-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 without evidence of necrosis Medications at Discharge Home Medications fluticasone propionate 50 mcg/actuation nasal spray,suspension 2 spray NASAL DAILY allergies 12/07/16 citalopram 20 mg tablet 20 mg PO QHS DEPRESSION 04/26/21 levothyroxine 25 mcg tablet 25 mcg PO DAILY thyroid 04/29/21 lovastatin 40 mg tablet 40 mg PO QHS cholesterol 04/29/21 ropinirole 2 mg tablet 2 mg PO QHS RLS 06/25/23 glucosamine 375 pn-ceijazxwv-iyu no1 500 mg-C 15 mg-gianni 0.5 mg tablet (Iwhmriyrlkz-Hsfvmcsliuq-VDB Complex) 3 tab PO DAILY joints 08/02/23 metformin 500 mg tablet 500 mg PO BID dm 08/02/23 cranberry fruit 400 mg capsule 400 mg PO DAILY health 11/03/23 vitamin B complex 1 tab PO DAILY health 11/23/23 budesonide 0.5 mg/2 mL suspension for nebulization 0.5 mg inhalation Q12H PRN PRN breathing 03/23/24 ipratropium bromide 42 mcg (0.06 %) nasal spray 2 spray intranasal DAILY sob 06/19/24 levalbuterol tartrate 45 mcg/actuation aerosol inhaler 1 puff inhalation Q4H PRN shortness of breath 06/19/24 polysaccharide iron complex 150 mg iron capsule (Ferrex) 150 mg PO QDAY anemia 06/19/24 ascorbate calcium (vitamin C) 500 mg tablet 500 mg PO DAILY health 12/22/24 coenzyme Q10 100 mg capsule (CoQ-10) 50 mg PO DAILY health 12/22/24 echinacea 500 mg capsule 1,000 mg PO DAILY health 12/22/24 melatonin 10 mg capsule 10 mg PO QHS sleep 12/22/24 finerenone 20 mg tablet (Kerendia) 20 mg PO DAILY kidneys 05/11/25 amoxicillin 875 mg-potassium clavulanate 125 mg tablet 1 tab PO BID 6 weeks #84 tabs 05/15/25 doxycycline monohydrate 100 mg capsule 100 mg PO BID 6 weeks #84 caps 05/15/25 Hospital Course Summary of Care Provided Minutes Spent on Discharge: 35 Hospital Course: Patient is a 75-year-old lady admitted with diabetic foot infection 1. Osteomyelitis involving the distal phalanx of the left fifth toe ? Patient was managed with broad-spectrum antibiotic therapy consult placed to podiatry. Patient was seen by Dr. Alicea patient offered surgical versus conservative management patient opted for conservative management to save the toe. Patient was also seen in consultation by Dr. Krishnamurthy with ID recommended discharge with Doxycycline and Augmentin with a stop date of 06/21/2025 2. Diabetes mellitus type 2 with complications including diabetic foot infections ? patient's oral hypoglycemics held. Placed on long acting insulin, Accu-Cheks a.c. and at bedtime and covered with sliding scale insulin 3. Class III obesity with BMI of 49.6 ? Complicating care weight loss advised 4. Obstructive sleep apnea ? Consistent use of PAP therapy encouraged 5. Depression with anxiety ? Patient is on citalopram did continue 6. Dyslipidemia ?Patient is on statin therapy, continued at home dose 7. Restless leg syndrome ? Patient is on ropinirole?continue home dose 8. Mild intermittent asthma ? Not in exacerbation did continue patient bronchodilator as well as inhaled corticosteroids 9. DVT prophylaxis ? Lovenox SC 40 mg every 12 hours ? Physical Exam Narrative GENERAL: cooperative HEENT: Atraumatic; normocephalic EYES; Anicteric, Normal Conjunctiva NECK; supple, normal thyroid, RESPIRATORY: Diminished to auscultation CARDIOVASCULAR: Regular S1 S2, GI: soft, normoactive bowel sounds, : No Renal angle tenderness; EXTREMITIES: No edema, no clubbing, MUSCULOSKELETAL: Left fifth toe in surgical address NEURO: Awake; no lateralizing signs. SKIN: No Rash PSYCH; Flat affect Weight / BMI Weight Weight: 115.3 kg Body Mass Index (BMI) 49.6 ABG / Lab / Microbiology Data 05/14/25 04:11 05/14/25 04:11 Laboratory: Laboratory Results - last 24 hr 05/14/25 11:26: POC Glucose 146 H 05/14/25 16:46: POC Glucose 175 H 05/14/25 21:49: POC Glucose 196 H 05/15/25 06:03: POC Glucose 198 H Microbiology: Microbiology 05/11/25 09:30 Wound - Left Foot Gram Stain - Final 05/11/25 09:30 Wound - Left Foot Wound Culture - Preliminary Corynebacterium diphtheriae Staphylococcus capitis Gram positive organism 05/11/25 09:30 Wound - Left Foot Anaerobic Culture - Preliminary Checking for anaerobes, further studies to follow. D/C Instructions Discharge Activity: Return to Normal Activity Call your doctor if you observe: Fever of 101 or Higher, Shortness of breath, Fainting spells and Chest pain DC O2, CPAP, BIPAP Needs Home O2 Discharge instructions: No Meaningful Use Info Meaningful Use Meaningful Use Diagnoses (Choose all that apply): None applicable Discharge Plan Admission Admit Date/Time: 05/10/25 18:45 Attending Provider: Brice Yang Primary Care Provider: Corby Heller Chi Consulting Providers: Luis Bhardwaj; Holly Lopez; Rob Krishnamurthy; Hari Miranda Discharge Orders/Prescriptions Prescriptions: New doxycycline monohydrate 100 mg Capsule 100 mg PO BID 42 Days Qty: 84 0RF amoxicillin-pot clavulanate 875-125 mg tablet 1 tab PO BID 42 Days Qty: 84 0RF Continued polysaccharide iron complex [Ferrex 150] 150 mg iron capsule 150 mg PO QDAY ipratropium bromide 42 mcg (0.06 %) spray,non-aerosol 2 spray intranasal DAILY Patient Comments: [NO ORIGINAL SIG] levalbuterol tartrate 45 mcg/actuation HFA aerosol inhaler 1 puff inhalation Q4H PRN (Reason: shortness of breath) fluticasone propionate 1 SPRAY spray,suspension 2 spray NASAL DAILY citalopram 20 mg tablet 20 mg PO QHS Patient Comments: TAKE 1/2 (ONE-HALF) OF A TABLET DAILY FOR 7 DAYS then TAKE 1 TABLET DAILY lovastatin 40 mg tablet 40 mg PO QHS Patient Comments: TAKE 1 TABLET DAILY AT BEDTIME levothyroxine 25 mcg tablet 25 mcg PO DAILY Patient Comments: TAKE 1 TABLET BY MOUTH ONCE DAILY ropinirole 2 mg tablet 2 mg PO QHS metformin 500 mg tablet 500 mg PO BID Patient Comments: WITH EACH MEAL Vlpcrcvbglg-Liemq-XVA Complex [id number] mg tablet 3 tab PO DAILY cranberry fruit 400 mg capsule 400 mg PO DAILY Rx Instructions: administer with a meal coenzyme Q10 [CoQ-10] 100 mg capsule 50 mg PO DAILY melatonin 10 mg capsule 10 mg PO QHS ascorbate calcium (vitamin C) 500 mg tablet 500 mg PO DAILY echinacea 500 mg capsule 1,000 mg PO DAILY Rx Instructions: administer with meals vitamin B complex Tablet 1 tab PO DAILY budesonide 0.5 mg/2 mL Suspension For Nebulization 0.5 mg inhalation Q12H PRN PRN (Reason: breathing) Kerendia 20 mg tablet 20 mg PO DAILY Referrals / Follow Up: Luis Bhardwaj DPM [Med Staff - Active Staff] - Within 1 Week Rob Krishnamurthy MD [Med Staff - Active Staff] - Within 2 Weeks Corby Heller Chi, MD [Primary Care Provider] - Within 2 Weeks Disposition Disposition (needs filled in before D/C Order can be placed): Home Health Service Charges/Coding Visit Charges Inpatient E&M: 92418 Disch Hosp >30min
[2025-05-15 10:51] VITALS: PULSE 76; RESP 16
--- NOTE | 2025-05-15 12:21 | CASEMGMT ---
Patient has order for discharge. Patient has been setup with [facility] with start of care scheduled for tomorrow. ULISES MILLAN into to discuss discharge with patient, ULISES MILLAN updated patient to start of care tomorrow with [facility]. Patient voiced appreciation. Patient denies further needs or help at discharge. Patient had no further questions or concerns.
[2025-05-15 13:18] VITALS: BP 121/69; PULSE 69; RESP 16; TEMP 36.6; O2SAT 97
== END 2025-05-15 13:25 | disposition home health service (06) | DRG 638 ==
LOC: ED 18:38 → PCU 18:47
PROVIDERS: Internal Medicine; Podiatrist; Admitting Provider Internal Medicine; Emergency Provider Emergency Medicine; PCP Family Medicine Geriatric Medicine; Visit Provider Internal Medicine
DX: E11.628 Type 2 diabetes mellitus with other skin complications (principal); L03.116 Cellulitis of left lower limb; Z68.42 Body mass index [BMI] 45.0-49.9, adult; J45.21 Mild intermittent asthma with (acute) exacerbation; L97.525 Non-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 without evidence of necrosis; M86.9 Osteomyelitis, unspecified; E11.40 Type 2 diabetes mellitus with diabetic neuropathy, unspecified; G25.81 Restless legs syndrome; E03.9 Hypothyroidism, unspecified; F32.A Depression, unspecified; E11.621 Type 2 diabetes mellitus with foot ulcer; E66.01 Morbid (severe) obesity due to excess calories; G47.33 Obstructive sleep apnea (adult) (pediatric); F41.9 Anxiety disorder, unspecified; E78.5 Hyperlipidemia, unspecified; E11.69 Type 2 diabetes mellitus with other specified complication; Z79.899 Other long term (current) drug therapy; Z79.84 Long term (current) use of oral hypoglycemic drugs; Z86.16 Personal history of COVID-19
CPT/HCPCS: 36415; 73630; 73720; 80048; 82962; 83036; 83605; 84443; 84550; 85025; 85652; 86140; 87070; 87075; 87077; 87186; 87205; 93005; 93306; 93923; 94640; 97110; 97116; 97162; 97166; 97530; 97535; 99285; A9575; Q9957; A4216; C8929; J0295

== ENCOUNTER 2025-06-16 09:00 | Emergency (ER) | payer MEDICARE, OTHER, SELFPAY ==
[2025-06-16 09:01] VITALS: BP 131/68; PULSE 89; RESP 16; TEMP 37.4; O2SAT 97; BMI 50.3
--- NOTE | 2025-06-16 09:04 | EX.ED.VIS.UR ---
HPI HPI - URI History of Present Illness Chief Complaint: Cough Onset/Context/Timing Onset: Today Context: Sudden Onset Timing: Continuous Quality: Sharp Location: Left chest Worsened by: - (Coughing, movement) Relieved by: - (Nothing) Associated Symptoms Associated Symptoms: Positive for Nausea, Vomiting, Diarrhea, Chest Pain and Nonproductive cough; Negative for Nasal Congestion, Headache, Sinus Pressure, Myalgias, Shortness of Breath, Hemoptysis or Productive Cough Narrative Narrative: Patient presents with left-sided chest pain that began after coughing. Patient states she had a coughing episode and started having sharp pain in her left chest. Patient states the pain is worse with movement. Patient denies any fevers or chills. Patient denies any sputum production. Patient states she has been having some nausea, vomiting, and diarrhea due to antibiotic use for a bone infection. Patient states her pain is over her left lower ribs. Patient states it is worse with coughing. Patient states nothing makes it better. ROS ROS ED Constitutional Constitutional ED: Denies chills or fever(s) Eyes Eyes: Denies blurry vision or change in vision ENT ENT ED: Denies rhinorrhea or sore throat Cardiovascular Cardiovascular: Reports chest pain; Denies palpitations Respiratory/Chest Respiratory/Chest: Reports cough; Denies dyspnea Gastrointestinal Gastrointestinal: Reports diarrhea, nausea and vomiting Genitourinary Genitourinary ED: Reports dysuria; Denies hematuria Musculoskeletal Musculoskeletal: Reports back pain; Denies neck pain Integumentary Denies abscess or rash Neurologic Neurologic: Denies headache(s) or weakness Allergic/Immunologic Allergic/Immunologic ED: Denies mouth swelling or urticaria [facility] Medical History History of ESBL Klebsiella pneumoniae infection BiPAP (biphasic positive airway pressure) dependence History of diverticulitis Restless legs MRSA infection Wears glasses Post-menopausal Alcohol use Thyroid disease Arthritis High cholesterol Back pain Injury of head and neck Non-smoker Shortness of breath on exertion History of pain when walking History of echocardiogram Sinus tachycardia by electrocardiogram Anemia Thrombocytopenia Depression Anxiety Osteoarthritis Kidney stones Asthma Hypertension Diabetes Fibromyalgia Foot arch pain COVID-19 Home Medications ?Medication ?Instructions ?Recorded ?Last Taken ?Type fluticasone propionate 50 2 spray NASAL DAILY allergies 12/07/16 05/31/24 History mcg/actuation nasal spray,suspension citalopram 20 mg tablet 20 mg PO QHS DEPRESSION 04/26/21 05/31/24 History levothyroxine 25 mcg tablet 25 mcg PO DAILY thyroid 04/29/21 04/06/24 07:00 History lovastatin 40 mg tablet 40 mg PO QHS cholesterol 04/29/21 05/31/24 History ropinirole 2 mg tablet 2 mg PO QHS RLS 06/25/23 05/31/24 History glucosamine 375 lq-onwvqqhcy-wlc 3 tab PO DAILY joints 08/02/23 05/31/24 History no1 500 mg-C 15 mg-gianni 0.5 mg tablet (Vvnpnzlvkks-Bxvrdirleob-ZYS Complex) metformin 500 mg tablet 500 mg PO BID dm 08/02/23 05/31/24 History cranberry fruit 400 mg capsule 400 mg PO DAILY health 11/03/23 05/31/24 History vitamin B complex 1 tab PO DAILY health 11/23/23 05/31/24 History budesonide 0.5 mg/2 mL suspension 0.5 mg inhalation Q12H PRN PRN 03/23/24 Unknown History for nebulization breathing ipratropium bromide 42 mcg (0.06 2 spray intranasal DAILY sob 06/19/24 Unknown History %) nasal spray levalbuterol tartrate 45 1 puff inhalation Q4H PRN 06/19/24 Unknown History mcg/actuation aerosol inhaler shortness of breath polysaccharide iron complex 150 mg 150 mg PO QDAY anemia 06/19/24 Unknown History iron capsule (Ferrex) ascorbate calcium (vitamin C) 500 500 mg PO DAILY health 12/22/24 Unknown History mg tablet coenzyme Q10 100 mg capsule 50 mg PO DAILY health 12/22/24 Unknown History (CoQ-10) echinacea 500 mg capsule 1,000 mg PO DAILY health 12/22/24 Unknown History melatonin 10 mg capsule 10 mg PO QHS sleep 12/22/24 Unknown History finerenone 20 mg tablet (Kerendia) 20 mg PO DAILY kidneys 05/11/25 Unknown History amoxicillin 875 mg-potassium 1 tab PO BID 6 weeks #84 tabs 05/15/25 Unknown Rx clavulanate 125 mg tablet doxycycline monohydrate 100 mg 100 mg PO BID 6 weeks #84 caps 05/15/25 Unknown Rx capsule doxycycline monohydrate 100 mg 100 mg PO BID #14 CAPSULES 06/16/25 Unknown Rx capsule Allergy/AdvReac Type Severity Reaction Status Date / Time cephalexin monohydrate (From Allergy Swelling Verified 01/26/25 14:38 Keflex) ibuprofen Allergy Swelling Verified 01/26/25 14:38 oxaprozin (From Daypro) Allergy Swelling Verified 01/26/25 14:38 tramadol HCl (From Ultram) Allergy Swelling Verified 01/26/25 14:38 albuterol AdvReac Intermediate Other Verified 01/26/25 14:38 celecoxib (From Celebrex) AdvReac DIZZY AND Verified 01/26/25 14:38 HURTS AROUND MY LIVER Family History Other Diabetes Hypertension Surgical History Hx of bilateral cataract extraction History of cystoscopy Hx of umbilical hernia repair History of carpal tunnel surgery of left wrist Hx of tonsillectomy Hx of colonoscopy History of ureter stent Social History household members: children housing: house Smoking Status: Never smoker alcohol intake: never substance use type: does not use EXAM Physical Exam Const Vital Signs: 06/16/25 09:01 06/16/25 09:05 06/16/25 10:04 Temperature 99.4 F H 99.3 F H Temperature Source Oral Oral Pulse Rate 89 81 Respiratory Rate 16 16 Respiratory Depth Normal Respiratory Pattern Normal Blood Pressure 131/68 H 124/90 H Blood Pressure Mean 89 101 Pulse Ox 97 96 Oxygen Delivery Method Room Air Room Air Room Air Positive well nourished and well developed Constitutional Narrative: BMI is 50.3. General Appearance ED: well developed and NAD HEENT Reports moist mucous membranes normocephalic and atraumatic Neck supple and no JVD Chest Wall Chest Narrative: There is tenderness over the lateral aspect of the left lower ribs. There is no bony crepitance or step-off. There is no subcutaneous emphysema palpated. Resp normal respiratory effort and clear to auscultation bilaterally Cardio Rate: regular rate Rhythm: regular rhythm GI non-distended Palpation: soft and tender epigastric, LLQ, RLQ, LUQ, RUQ, periumbilical and suprapubic; Negative for guarding Neuro oriented x3, CN's II-XII intact bilaterally and no sensory deficits noted Sensorium / Orientation: alert Psych mental status grossly normal MDM MDM MDM Narrative Medical decision making narrative: Differential diagnosis includes pneumonia, bronchitis, pneumothorax, musculoskeletal strain, urinary tract infection, gastroenteritis, viral illness, electrolyte abnormality, and anxiety. Chest x-ray will be obtained to assess for pneumonia, bronchitis, pneumothorax. CBC will be obtained to assess for leukocytosis and anemia. Basic metabolic profile will be obtained to assess for electrolyte abnormality and renal function. Urinalysis will be obtained to assess for urinary tract infection and hematuria. History & Record Review Additional record(s) reviewed:: Prior outpatient record, Prior ED visit and Prior labs Lab Data Attestation: I reviewed the patient's lab results. Lab results narrative: CBC was reviewed. There is a mild anemia with a hemoglobin of 10.3 and hematocrit of 32.1. Basic metabolic profile was reviewed. BUN was minimally elevated at 20. Creatinine was normal at 1.05. Urinalysis was reviewed. Leukocyte esterase was 500 with greater than 100 white blood cells and 1+ bacteria. Labs: Laboratory Results - last 24 hr 06/16/25 09:41 WBC 8.7 RBC 3.47 L Hgb 10.3 L Hct 32.1 L MCV 92.5 MCH 29.7 MCHC 32.1 RDW Std Deviation 50.7 H RDW Coeff of Cecil 15.1 H Plt Count 242 MPV 9.6 Immature Gran % (Auto) 0.600 Neut % (Auto) 65.4 Lymph % (Auto) 19.2 [place] % (Auto) 9.6 Eos % (Auto) 4.5 Baso % (Auto) 0.7 Absolute Neuts (auto) 5.7 Absolute Lymphs (auto) 1.68 Nucleated RBC % 0 Sodium 138 Potassium 3.9 Chloride 100 Carbon Dioxide 25.7 Anion Gap 12 BUN 20 H Creatinine 1.05 Estim Creat Clear Calc 53.26 Est GFR (MDRD) Non-Af 55 L BUN/Creatinine Ratio 19.0 Glucose 156 H Calcium 8.5 Urine Color Yellow Urine Clarity Cloudy Urine pH 6.5 Ur Specific [place] 1.010 Urine Protein 30 H Urine Glucose (UA) Normal Urine Ketones Negative Urine Occult Blood 10 H Urine Nitrite Negative Urine Bilirubin Negative Urine Urobilinogen 4 H Ur Leukocyte Esterase 500 H Urine RBC 0 SEEN Urine WBC >100 SEEN Ur Squamous Epith Cells 0-5 SEEN Urine Bacteria 1+ Urine Mucus 0 SEEN Radiography Chest X-Ray - ED: 2 View, Read by ED Physician, Read by Radiologist, Left Infiltrate, Right Effusion and Left Effusion Diagnostic Testing: Clinical Impression(s) from Imaging Studies Chest X-Ray 06/16/25 09:40 IMPRESSION: Airspace densities in the lower lungs may represent pulmonary edema or pneumonia. Small pleural effusions. Reading Location: [facility] [place] and lateral chest x-ray was obtained. There are 2 views. On my independent interpretation, lung oneil showed airspace densities in the lower lungs that could be pneumonia. There are small pleural effusions noted. There is normal cardiac silhouette. Bony thorax is normal. Radiologist also interpreted the x-ray and agrees. Treatment and Re-Evaluation Narrative: Patient was given IV fluids. Patient was ordered a dose of morphine initially. Patient refused this. Patient requested a dose of Toradol instead. After patient's renal functions were resulted, patient was given a dose of Toradol. Patient was also given a dose of Levaquin here. Patient was given a prescription for Levaquin. Patient was instructed to follow-up with her primary care physician in 5 to 7 days. Patient understood and was agreeable with the plan. All questions were answered. Discharge Plan Triage Chief Complaint: Cough ED Provider: Jalen Delgado Dx/Rx/DC Orders Clinical Impression: Urinary tract infection, Pneumonia Instructions: ED Pneumonia (Adult), ED Cystitis Female Adult Prescriptions: New doxycycline monohydrate 100 mg capsule 100 mg PO BID Qty: 14 0RF No Action polysaccharide iron complex [Ferrex 150] 150 mg iron capsule 150 mg PO QDAY ipratropium bromide 42 mcg (0.06 %) spray,non-aerosol 2 spray intranasal DAILY Patient Comments: [NO ORIGINAL SIG] levalbuterol tartrate 45 mcg/actuation HFA aerosol inhaler 1 puff inhalation Q4H PRN (Reason: shortness of breath) fluticasone propionate 1 SPRAY spray,suspension 2 spray NASAL DAILY citalopram 20 mg tablet 20 mg PO QHS Patient Comments: TAKE 1/2 (ONE-HALF) OF A TABLET DAILY FOR 7 DAYS then TAKE 1 TABLET DAILY lovastatin 40 mg tablet 40 mg PO QHS Patient Comments: TAKE 1 TABLET DAILY AT BEDTIME levothyroxine 25 mcg tablet 25 mcg PO DAILY Patient Comments: TAKE 1 TABLET BY MOUTH ONCE DAILY ropinirole 2 mg tablet 2 mg PO QHS metformin 500 mg tablet 500 mg PO BID Patient Comments: WITH EACH MEAL Exitdfvyiig-Brwyw-JSH Complex [id number] mg tablet 3 tab PO DAILY cranberry fruit 400 mg capsule 400 mg PO DAILY Rx Instructions: administer with a meal coenzyme Q10 [CoQ-10] 100 mg capsule 50 mg PO DAILY melatonin 10 mg capsule 10 mg PO QHS ascorbate calcium (vitamin C) 500 mg tablet 500 mg PO DAILY echinacea 500 mg capsule 1,000 mg PO DAILY Rx Instructions: administer with meals vitamin B complex Tablet 1 tab PO DAILY budesonide 0.5 mg/2 mL Suspension For Nebulization 0.5 mg inhalation Q12H PRN PRN (Reason: breathing) Kerendia 20 mg tablet 20 mg PO DAILY doxycycline monohydrate 100 mg Capsule 100 mg PO BID 42 Days Qty: 84 0RF amoxicillin-pot clavulanate 875-125 mg tablet 1 tab PO BID 42 Days Qty: 84 0RF Primary Care Provider: Corby Heller Chi Referrals: Corby Heller Chi, MD [Primary Care Provider, Geriatrics] - 3-5 Days Print Language: Maltese
[2025-06-16 09:05] VITALS: O2SAT 97
[2025-06-16] MEDS: 0.9% Normal Saline (1000mL) 1,000 ML 1000 ML IV (09:38)
--- NOTE | 2025-06-16 09:40 | RAD_ITS ---
PROCEDURE: CHEST PA AND LATERAL 06/16/2025 REASON FOR EXAM: COUGH TECHNIQUE: Procedure Code: RADCXR Modality: DX Procedure: CHEST PA AND LATERAL COMPARISON: Chest x-ray 12/18/2024. FINDINGS: Hardware: Monitor electrodes overlie the chest. Heart: The heart is borderline in size. Tortuosity of the thoracic aorta. Mediastinum: Unremarkable. Lungs: Airspace densities in the lower lungs may represent pulmonary edema or pneumonia. Obliteration of the costophrenic angles consistent with small pleural effusions. Bones: No cardiopulmonary abnormalities. RAD/Chest PA and Lateral IMPRESSION: Airspace densities in the lower lungs may represent pulmonary edema or pneumoni a. Small pleural effusions. Reading Location: [id number]
[2025-06-16 09:47] LABS: Mucous, Urine 0 SEEN /hpf (<or=2+); Red Blood Cells-Urine 0 SEEN /hpf (0-5)
[2025-06-16 09:49] LABS: Color, Urine Yellow (Yellow); Glucose, Dipstick Normal (Normal); Ketone-Dipstick Negative (Negative); Leukocyte Esterase-Dipstick 500 /ul (Negative); Nitrite-Dipstick Negative (Negative); Occult Blood-Urine 10 /ul (Negative); Protein-Dipstick 30 mg/dl (Negative); Specific Gravity, Urine 1.010 (1.002-1.030); Urine Bilirubin Dipstick Negative (Negative)
--- OUTSIDE RECORDS SUMMARY | 2025-06-16 09:49 | XMS RPT_ITS | CCD ---
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 Corby Heller Chi Primary Care Provider Dr. Rob Ruiz Attending Provider Corby Heller Chi Primary Care Provider CORBY HELLER CHI Primary Care Unavailable GRISEL VILLANUEVA Attending Unavailable Dr. Corby Heller Chi Primary Care Provider [phone] Reji Morillo Emergency Provider Dr. Clementine Prieto Admit Provider Dr. Clementine Prieto Attending Provider Dr. Clementine Prieto Other Provider Dr. Juan Cerda Attending Provider Dr. Bertram Chatterjee Attending Provider Dr. Bertram Chatterjee Other Provider Dr. Lucas Clemons Other Provider Dr. Josh Petersen Other Provider Unavailable Dr. Conner Marie Other Provider Dr. Cameron Almazan Other Provider Unavailab Ibarra BAKER HELPER, BAKER HELPER-C Rhonda Other Provider Dr. Zenon Martinez Other Provider Dr. Levi Ramirez Attending Provider Dr. Zenon Martinez Attending Provider Dr. Alonso Bautista Attending Provider Dr. Alonso Bautista Other Provider Dr. Alonso Bautista Referring [...] Cameron Almazan Other Provider Unavailab thuy Victoria BAKER HELPER, BAKER HELPER-C Rhonda Other Provider Dr. Zenon Martinez Other Provider Dr. Alonso Bautista Referring Provider Dr. Levi Ramirez Attending Provider Dr. Zenon Martinez Attending Provider Dr. Alonso Bautista Attending Provider Dr. Alonso Bautista Other Provider Arron RAY, Dr. Corby Juárez Primary Care Provider [phone] Arron RAY, Dr. Corby Juárez Referring Provider Shana Vicente Attending Provider Werner RAY, Dr. Salazar Attending Provider Dr. Marie Caldera MD Referring Provider Arron RAY, Dr. Corby Juárez Attending Provider Arron RAY, Dr. Corby Juáerz Primary Care Provider Arron RAY, Dr. Corby Juárez Referring Provider Raghu RAY, Dr. Rivas Attending Provider Raghu RAY, Dr. Rivas Referring Provider Lucian RAY, Dr. Fernandes Emergency Provider [phone] Arron RAY, Dr. Corby Juárez Primary Care Provider Werner RAY, Dr. Salazar Attending Provider Werner RAY, Dr. Salazar Referring Provider Lucian RAY, Dr. Fernandes Attending Provider [phone] Arron RAY, Dr. Corby Juárez Primary Care Provider [phone] Pattie CABRERA, Dr. Krueger Attending Provider Pattie CABRERA, Dr. Krueger Emergency Provider Sultana RAY, Dr. Rivas Attending Provider Sultana RAY, Dr. Rivas Referring Provider Conner CABRERA, Dr. Blnaco Attending Provider Conner ACBRERA, Dr. Blanco Other Provider Arron RAY, Dr. Corby Juárez Primary Care Provider Arron RAY, Dr. Corby Juárez Referring Provider Arron RAY, Dr. Corby Juárez Attending Provider Werner RAY, Dr. Salazar Attending Provider Thuy CABRERA, Dr. Maria Emergency Provider John RAY, Dr. Barrera Admit Provider John RAY, Dr. Barrera Attending Provider John RAY, Dr. Barrera Other Provider Lashae VASQUEZ, Dr. Smith Other Provider Ruben RAY, Dr. Noriega Attending Provider Raghu RAY, Dr. Rivas Other Provider Trey RAY, Dr. Narvaez Attending Provider Unavaila renzo Miranda MD, Dr. Noriega Other Provider Ruben RAY, Dr. Noriega Attending Provider [phone] Allegra RAY, Dr. Banks Attending Provider Unavailab thyu Yang MD, Dr. Narvaez Other Provider Unavailable Conner, Bella Attending Unavailable Conner, Bella Consulting Unavailable Arron, Corby Chi Primary Care Unavailable Arron, Corby Chi Referring Unavailable Raghu, Rob Referring Unavailable Raghu, Rob Attending Unavailable Arron, Corby Chi Primary Care Unavailable Arron, Corby Chi Primary Care Unavailable Conner, Bella Consulting Unavailable Arron, Corby Chi Attending Unavailable Arron, Corby Chi Primary Care Unavailable Darren Dinh Attending Unavailable Siska, Rob Referring Unavailable Siska Rob Attending Unavailable Arron, Corby Chi Primary Care Unavailable Rob Krishnamurthy Attending Unavailable Rob Krishnamurthy Referring Unavailable Arron, Corby Chi Primary Care Unavailable Evans Blankenship Attending Unavailable Arron, Corby Chi Primary Care Unavailable Dom Epstein Attending Unavailable Arron, Corby Chi Primary Care Unavailable Arron, Corby Chi Primary Care Unavailable Arron, Corby Chi Referring Unavailable Arron, Corby Chi Attending Unavailable Wyneski, Marie Referring Unavailable Wyneski, Marie Attending Unavailable Arron, Corby Chi Primary Care Unavailable Arron, Corby Chi Primary Care Unavailable Arron, Corby Chi Attending Unavailable Arron, Corby Chi Primary Care Unavailable Arron, Corby Chi Attending Unavailable Rob Krishnamurthy Referring Unavailable Raghu, Rob Attending Unavailable Arron, Corby Chi Primary Care Unavailable Wyneski, Marie Referring Unavailable Wyneski, Marie Attending Unavailable Arron, Corby Chi Primary Care Unavailable Wyneski, Marie Referring Unavailable Wyneski, Marie Attending Unavailable Arron, Corby Chi Primary Care Unavailable Arron, Corby Chi Primary Care Unavailable Arron, Corby Chi Attending Unavailable Arron, Corby Chi Primary Care Unavailable Arron, Corby Chi Referring Unavailable Arron, Corby Chi Attending Unavailable Raghu, Rob Referring Unavailable Raghu, Rob Attending Unavailable Arron, Corby Chi Primary Care Unavailable RaghuRob Referring Unavailable RaghuRob Attending Unavailable Arron, Corby Chi Primary Care Unavailable Raghu, Rob Referring Unavailable Raghu, Rob Attending Unavailable Arron, Corby Chi Primary Care Unavailable RaghuRob Attending Unavailable Raghu, Rob Referring Unavailable Arron, Corby Chi Primary Care Unavailable Marie Caldera Attending Unavailable Arron, Corby Chi Primary Care Unavailable Marie Caldera Referring Unavailable Luis Bhardwaj Consulting Unavailable Flaco Yang Attending Unavailable Arron, Corby Chi Primary Care Unavailable Lopez, Holly Admitting Unavailable Lopez, Holly Consulting Unavailable Rob Krishnamurthy Consulting Unavailable Ruben, Hari Consulting Unavailable Marie Caldera Attending Unavailable Marie Caldera Referring Unavailable Arron, Corby Chi Primary Care Unavailable Luis Bhardwaj Consulting Unavailable Ruben, Hari Attending Unavailable Arron, Corby Chi Primary Care Unavailable Lopez, Holly Admitting Unavailable Lopez, Holly Consulting Unavailable RaghuRob Consulting Unavailable Ruben, Hari Consulting Unavailable Arron, Corby Chi Primary Care Unavailable Arron, Corby Chi Attending Unavailable Flaco Yang Attending Unavailable Flaco Yang Consulting Unavailable Arron, Corby Chi Primary Care Unavailable Ryann Murrieta Attending Unavailable Arron, Corby Chi Referring Unavailable Arron, Corby Chi Primary Care Unavailable Shana Hancock Attending Unavailable Arron, Corby Chi Referring Unavailable Rob Weinberg Attending Unavailable Arron, Corby Chi Referring Unavailable Arron, Corby Chi Primary Care Unavailable Arron, Corby Chi Primary Care Unavailable Shana Hancock Attending Unavailable Arron, Corby Chi Referring Unavailable Shana Hancock Attending Unavailable Arron, Corby Chi Primary Care Unavailable Arron, Corby Chi Referring Unavailable Rob Weinberg Attending Unavailable Arron, Corby Chi Referring Unavailable Arron, Corby Chi Primary Care Unavailable Arron, Corby Chi Primary Care Unavailable Shana Hancock Attending Unavailable Arron, Corby Chi Referring Unavailable Venus Lopezge Attending Unavailable Allergies Allergy Classification Reported Allergen(s) Allergy Type Date of Onset Reaction(s) Facility (20 sources) celecoxib; Translations: [CELECOXIB] Drug Allergy 2 Shortness of Breath [facility] Comment on above: DIZZY AND HURTS CELESTINO UND MY LIVER (20 sources) Cephalexin; Translations: [cephalexin monohydrate] Drug Allergy 1 [facility] (20 sources) Ibuprofen; Translations: [IBUPROFEN] Drug Allergy 2 Other: See Comments [facility] Work Phone: Comment on above: STATES CAN TAKE LOW DOSES ONLY (20 sources) oxaprozin; Translations: [OXAPROZIN] Drug Allergy 2 Shortness of Breath [facility] (20 sources) traMADol; Translations: [TRAMADOL HCL] Drug Allergy 2 Shortness of Breath [facility] (2 sources) Aspirin; Translations: [ASPIRIN] Drug Allergy 2 Other: See Comments [facility] (2 sources) Cephalexin; Translations: [CEPHALEXIN] Drug Allergy 2 Shortness of Breath [facility] (2 sources) Naproxen; Translations: [NAPROXEN SODIUM] Drug Allergy 2 Other: See Comments [facility] (14 sources) Albuterol Drug Allergy 4 Other [facility] Comment on above: shaking all over (1 source) Albuterol Drug Allergy 5 [facility] (1 source) celecoxib Drug Allergy 5 [facility] (1 source) Ibuprofen Drug Allergy 5 [facility] (1 source) oxaprozin Drug Allergy 5 [facility] Rep[facility] Medications Current Medications Medication Drug Class(es) [...] needed for Pain 1-10 Or Fever>100.7 0 0 June 30, 2023 12:00am July 14, 2023 7:32pm Start: 06-30-2023 End: 07-14-2023 take 650 mg by mouth every six hours as needed Acetaminophen Discontinued 650 MG PO EVERY 6 HOURS NEEDED 0 June 30, 2023 12:00am July 14, 2023 7:32pm Albuterol Sulfate (20 sources) beta2-Adrenergic Agonist Start: [...] 6 HOURS NEEDED December 07, 2016 12:00am amoxicillin 875 mg / clavulanate 125 mg oral tablet (1 source) Penicillin-class Antibacterial Start: 05-15-2025 Amoxicillin-Pot Clavulanate 875-125 mg tablet Active 1 {tbl} PO TWICE A DAY 84 42 0 May 15, 2025 12:00am budesonide 0.25 mg/ml inhalation suspension (20 sources) Corticosteroid Start: 06-30-2023 End: 03-23-2024 take 0.5 mg by inhalation every twelve hours as needed Budesonide 0.5 mg/2 mL Suspension For Nebulization Active 0.5 mg INHALATION EVERY 12 HOURS NEEDED as needed for breathing March 23, 2024 12:00am calcium ascorbate 500 mg oral tablet (13 sources) Start: 12-22-2024 take 1 tablet by mouth once daily Ascorbate Calcium (Vitamin C) 500 mg tablet Active 500 mg PO DAILY December 22, 2024 12:00am health citalopram 20 mg oral tablet (20 sources) Serotonin Reuptake Inhibitor Start: 04-26-2021 take 1 tablet by mouth at bedtime Citalopram 20 mg tablet Active 20 mg PO AT BEDTIME April 26, 2021 12:00am DEPRESSION Cranberry Fruit (20 sources) Non-Standardized Food Allergenic Extract, Non-Standardized Plant Allergenic Extract Start: 11-03-2023 take 1 capsule by mouth once daily Cranberry Fruit 400 mg capsule Active 400 mg PO DAILY November 03, 2023 1:00am health administer with a meal Start: 11-03-2023 take 1 capsule by mo uth once daily Cranberry Fruit 400 mg capsule [...] 03, 2023 12:00am administer with a meal doxycycline monohydrate 100 mg oral capsule (1 source) Tetracycline-class Drug Start: 05-15-2025 take 1 capsule by mouth twice daily Doxycycline Monohydrate 100 mg Capsule Active 100 mg PO TWICE A DAY 84 42 0 May 15, 2025 12:00am Echinacea (20 sources) Start: 12-22-2024 take 1 capsule by mouth once daily at mealtime Echinacea 500 mg capsule Active 1000 mg PO DAILY December 22, 2024 12:00am health administer with meals Start: 12-22-2024 take 1 capsule by mo uth once daily at mealtime Echinacea 500 mg capsule Active 1000 mg PO DAILY December 22, 2024 12:00am administer with meals Start: 06-25-2023 End: 06-30-2023 take 1 capsule by mouth once daily at mealtime Echinacea 500 mg capsule Discontinued 500 mg PO DAILY June 25, 2023 12:00am June 30, 2023 10:34am SUPPLEMENT administer with meals Start: 06-25-2023 End: 06-30-2023 [...] 30, 2023 10:34am administer with meals Finerenone (12 sources) Start: 05-18-2024 take 1 tablet by abdelrahman th once daily Finerenone (Kerendia) 10 mg tablet Active 10 mg PO DAILY May 18, 2024 12:00am health Start: 05-18-2024 take 1 tablet by abdelrahman th once daily Finerenone (Kerendia) 10 mg tablet Active 10 mg PO DAILY May 18, 2024 12:00am Finerenone (2 sources) Start: 05-11-2025 take 1 tablet by mouth once daily Finerenone (Kerendia) 20 mg tablet Active 20 mg PO DAILY May 11, 2025 12:00am kidneys 120 actuat fluticasone propionate 0.044 mg/actuat metered dose inhaler (20 sources) Corticosteroid Start: 04-29-2021 take 1 puff(s) by inhalation once daily Fluticasone Propionate (Flovent Hfa) 44 mcg/actuation HFA aerosol inhaler Active 1 PUFF INHALATION DAILY April 29, 2021 12:00am Start: 12-07-2016 Fluticasone Pr opionate 1 SPRAY spray,suspension Active 2 NMA NASAL DAILY December 07, 2016 12:00am allergies Start: 12-07-2016 Fluticasone Pr opionate Active 2 SPRAY NASAL DAILY December 07, 2016 12:00am take 1 spray(s) nasa l route once daily fluticasone 50 mcg/actuation nasal spray Use 1 [place] in each nostril once daily. 0 Active Comment on above: Use 1 [place] in each nostril once daily. Jkkpfaok-Xjdpk-Fia3-C-M ang-Bor (Mzlcmlyhxfy-Zlxnz-Qhm Complex) 292-252-35-0.5 mg tablet (20 sources) Start: 08-02-2023 Jocwrmlc-Snpmu-Yuq1-C-M ang-Bor (Jrqfqlmcbea-Rxxhj-Gew Complex) 899-275-39-0.5 mg tablet Active 3 {tbl} PO DAILY August 02, 2023 1:00am joints Start: 08-02-2023 Glucosam-Chond -Ydy1-F-Avgu-Bor (Ehydkdaumag-Kznmn-Hfv Complex) 664-693-73-0.5 mg tablet Active 3 {tbl} PO DAILY August 02, 2023 1:00am Start: 08-02-2023 take 375-500 tablets by mouth once daily Egyrozik-Iujvb-Vow3-C-Gianni-Bor (Tvzwflwnzlz-Oappn-Tbl Complex) 602-024-41-0.5 mg tablet Active 3 TABLET PO DAILY August 02, 2023 1:00am Start: 08-02-2023 take 375-500 tablets by mouth once daily Dutchwpt-Nidig-Czi8-C-Gianni-Bor (Mqvzuabgntr-Ynhro-Ene Complex) 567-271-66-0.5 mg tablet Active 3 TABLET PO DAILY August 02, 2023 12:00am ipratropium bromide 0.042 mg/actuat metered dose nasal spray (14 sources) Anticholinergic Start: 06-19-2024 Ipratropium Br omide 42 mcg (0.06 %) spray,non-aerosol Active 2 NMA INTRANASAL DAILY June 19, 2024 12:00am sob Start: 06-19-2024 Ipratropium Br omide 42 mcg (0.06 %) spray,non-aerosol Active INTRANASAL June 19, 2024 12:00am 200 actuat levalbuterol 0.045 mg/actuat metered dose inhaler (14 sources) beta2-Adrenergic Agonist Start: 06-19-2024 Levalbuterol Tartrate 45 mcg/actuation HFA aerosol inhaler Active 1 NMA INHALATION Q4H as needed for shortness of breath June 19, 2024 12:00am levothyroxine sodium 0.025 mg oral tablet (20 sources) l-Thyroxine Start: 04-29-2021 take 1 tablet by mouth once daily Levothyroxine 25 mcg tablet Active 25 ug PO DAILY April 29, 2021 12:00am thyroid LEVOTHYROXINE SO DIUM (LEVOTHYROXINE ORAL) Take by mouth. 0 Active Comment on above: Take by mouth. lovastatin 40 mg oral tablet (20 sources) HMG-CoA Reductase Inhibitor Start: 04-29-2021 take 1 tablet by mouth at bedtime Lovastatin 40 mg tablet Active 40 mg PO AT BEDTIME April 29, 2021 12:00am cholesterol Comment on above: Take 40 mg by mouth daily at bedtime. melatonin 10 mg oral capsule (14 sources) Start: 12-22-2024 take 1 capsule by mouth at bedtime Melatonin 10 mg capsule Active 10 mg PO AT BEDTIME December 22, 2024 12:00am sleep take 1 capsule by mouth once serg ly melatonin 10 mg cap Take 1 capsule by mouth once daily. 0 Active Comment on above: Take 1 capsule by mo uth once daily. metFORMIN hydrochloride 500 mg oral tablet (20 sources) Biguanide Start: 08-02-2023 take 1 tablet by mouth twice daily Metformin 500 mg tablet Active 500 mg PO TWICE A DAY August 02, 2023 1:00am dm take 1 tablet by mouth three brie es daily metFORMIN 500 mg tablet Take 500 mg by mouth three times daily. 0 Active Comment on above: Take 500 mg by mouth three times daily. polysaccharide iron complex 150 mg oral capsule (18 sources) Start: 06-19-2024 Polysaccharide Iron Complex (Ferrex 150) 150 mg iron capsule Active 150 mg PO daily June 19, 2024 12:00am anemia Start: 07-14-2023 Polysaccharide Iron Complex (Ferrex 150) 150 mg iron Capsule Active 150 MG PO DAILY July 13, 2023 11:00pm rOPINIRole 2 mg oral tablet (20 sources) Nonergot Dopamine Agonist Start: 06-25-2023 take 1 tablet by mouth at bedtime Ropinirole 2 mg tablet Active 2 mg PO AT BEDTIME June 25, 2023 12:00am RLS Start: 04-26-2021 rOPINIRole (RE QUIP) 0.5 mg tablet Take by mouth. TAKING 2MG 0 04/26/2021 Active Start: 04-26-2021 End: 06-25-2023 take 1 tablet by mouth at bedtime Ropinirole (Requip) 0.5 mg Tablet Discontinued 0.5 mg PO AT BEDTIME April 26, 2021 12:00am June 25, 2023 4:35pm RLS Comment on above: Take by mouth. TAKIN G 2MG ubidecarenone 100 mg oral capsule (20 sources) Start: 12-22-2024 Coenzyme Q10 (Coq-10) 100 mg capsule Active 50 mg PO DAILY December 22, 2024 12:00am health Start: 08-02-2023 End: 06-19-2024 Coenzyme Q10 (Co Q-10) 100 m g capsule Discontinued 50 mg PO DAILY August 02, 2023 1:00am June 19, 2024 4:27pm Start: 08-02-2023 Coenzyme Q10 ( Co Q-10) 100 mg capsule Active 100 MG PO DAILY August 02, 2023 12:00am Vitamin B Complex (5 sources) Start: 11-23-2023 take 1 tablet by abdelrahman th once daily Vitamin B Complex Active 1 TABLET PO DAILY November 23, 2023 1:00am Start: 11-23-2023 take 1 tablet by mouth once da jayde Vitamin B Complex Active 1 TABLET PO DAILY November 23, 2023 12:00am Vitamin B Complex tablet (14 sources) Start: 11-23-2023 Vitamin B Comp david tablet Active 1 {tbl} PO DAILY November 23, 2023 1:00am health Start: 11-23-2023 Vitamin B Comp david tablet Active 1 {tbl} PO DAILY November 23, 2023 1:00am Completed/Discontinued Medications Medication Drug Class(es) Dates Sig (Normalized) Sig (Original) acetaminophen 325 mg / HYDROcodone bitartrate 5 mg oral tablet (20 sources) Opioid Agonist Start: 06-30-2023 End: 07-14-2023 Hydrocodone-Acetamino phen 5-325 mg Tablet Discontinued 1 - 2 {tbl} PO EVERY 6 HOURS NEEDED as needed for Pain Score 4-10 10 3 0 June 30, 2023 July 14, 2023 7:33pm Osteoarthritis Unspecified osteoarthritis, unspecified site Start: 06-30-2023 End: 07-14-2023 take 1 tablet by mouth every six hours as needed Hydrocodone-Acetaminophen Discontinued 1 - 2 TABLET PO EVERY 6 HOURS NEEDED 10 3 June 30, 2023 July 14, 2023 7:33pm acetaminophen 325 mg / oxyCODONE hydrochloride 5 mg oral tablet (20 sources) Opioid Agonist Start: 04-06-2024 End: 05-10-2025 Oxycodone-Acetaminophen (Percocet) 5-325 mg tablet Discontinued 1 {tbl} PO Q8H as needed for pain 10 3 0 June 01, 2024 May 10, 2025 7:14pm Calculus of kidney Calculus of kidney Start: 11-25-2023 End: 03-23-2024 Oxycodone-Acetaminophen (Per cocet) 5-325 mg tablet Discontinued 1 {tbl} PO Q8H as needed for pain 10 3 0 January 27, 2024 March 23, 2024 2:08pm Calculus of kidney Calculus of kidney Start: 08-05-2023 take 1 tablet by abdelrahman th every eight hours Oxycodone-Acetaminophen (Percocet) 5-325 mg tablet Active 1 TABLET PO Q8H 9 3 August 05, 2023 Start: 03-28-2020 End: 03-31-2020 Oxycodone-Acetaminophen 1 TA BLET tablet Discontinued 1 {tbl} PO EVERY 6 HOURS NEEDED as needed for Pain 12 3 0 March 28, 2020 March 30, 2020 12:00am March 31, 2020 12:02am Left foot pain Pain in left foot Start: 03-28-2020 End: 03-31-2020 take 1 tablet by mouth every six hours as needed Oxycodone-Acetaminophen Discontinued 1 TABLET PO EVERY 6 HOURS NEEDED 12 3 March 28, 2020 March 31, 2020 12:02am Albuterol Sulfate 1 PUFF inhaler (14 sources) Start: 12-07-2016 End: 06-30-2023 Albuterol Sulfate [...] by mouth. benzonatate 200 mg oral capsule (15 sources) Non-narcotic Antitussive Start: End: take 1 capsule by mouth three times daily Benzonatate 200 mg capsule Discontinued 200 mg PO THREE TIMES A DAY June 19, 2024 12:00am December 22, 2024 12:31pm Start: 07-14-2022 benzonatate (T ESSALON PERLE) 100 mg capsule calcium carbonate 1250 mg / cholecalciferol 200 unt oral tablet (1 source) Vitamin D take 1 tablet by mouth once daily rkdfaxh-zndlwropw-gugnxje D3 500 mg-5 mcg (200 unit) per tablet Take 1 tablet by mouth once daily. 0 Active Comment on above: Take 1 tablet by abdelrahman th once daily. cefdinir 300 mg oral capsule (20 sources) Cephalosporin Antibacterial Start : 06-30 End: 07-14 take 1 capsule by mouth every twelve hours Cefdinir 300 mg Capsule Discontinued 300 mg PO EVERY 12 HOURS 7 0 June 30, 2023 12:00am July 14, 2023 7:33pm infection continue for 7 doses starting evening 06/30/23 cholecalciferol 0.01 mg oral capsule (1 source) Vitamin D take 1 capsule by mouth once daily cholecalciferol, vitamin D3, 10 mcg (400 unit) cap Take 400 Units by mouth once daily. 0 Active Comment on above: Take 400 Units by mo [facility] once daily. cinnamon bark 1000 mg oral capsule (1 source) take 1000 mg by mouth twice daily CINNAMON BARK (CINNAMON ORAL) Take 1,000 mg by mouth twice daily. 0 Active Comment on above: Take 1,000 mg by abdelrahman twice daily. ciprofloxacin 250 mg oral tablet (14 sources) Quinolone Antimicrobial Start : 04-06 End: 05-18 take 1 tablet by mouth twice daily Ciprofloxacin Hcl (Cipro) 250 mg tablet Discontinued 250 mg PO TWICE A DAY 6 3 0 April 06, 2024 12:00am May 18, 2024 [...] 20 mg/ml oral solution (20 sources) Uncompetitive V-zlvair-G-asparta te Receptor Antagonist, Sigma-1 Agonist Start : [...] once daily. fluconazole 100 mg oral tablet (19 sources) Azole Antifungal Start: 4 End: 4 take 2 tablets by mouth once daily, then take 1 tablet by mouth once daily Fluconazole (Diflucan) 100 mg tablet Discontinued 100 mg PO DAILY 6 5 0 November 25, 2023 1:00am March 23, 2024 2:07pm take 2 tabs today and then one daily unitl gone Fluticasone Propionate (Flovent Hfa) 44 mcg/actuation HFA aerosol inhaler (20 sources) Start: End: Fluticasone Propionate (Flovent Hfa) 44 mcg/actuation HFA aerosol inhaler Discontinued 1 NMA INHALATION DAILY April 29, 2021 12:00am June 30, 2023 10:35am breathing Start: 04-29-2021 End: 06-30-2023 Fluticasone Propionate (Flov ent Hfa) 44 mcg/actuation HFA aerosol inhaler Discontinued [...] once daily. GLUCOSAM HCL/MSM/CHONDRO FRANK A (GLUCOSAMINE [id number] TN ORAL) (1 source) take 1200 mg by mouth once daily GLUCOSAM HCL/MSM/CHONDRO FRANK A (GLUCOSAMINE [id number] ORAL) Take by mouth. 1200 mg daily 0 Active Comment on above: Take by mouth. 1200 mg daily ibuprofen 200 mg oral tablet (20 sources) Nonsteroidal Anti-inflammatory Drug Star t: 03-16 End: 05-29 Ibuprofen (Advil) 200 mg tablet Discontinued 200 mg PO NEEDED August 02, 2023 1:00am June 19, 2024 4:31pm PAIN 1 ml ketorolac tromethamine 30 mg/ml injection (4 sources) Nonsteroidal Anti-inflammatory Drug, Cyclooxygenase Inhibitor Star t: 03-16 End: 03-16 inject 60 mg by intramuscular injection once ketorolac 60 mg/2 mL intramuscular syringe Discontinued 60 MG IM ONCE 2 October 02, 2018 11:32am October 02, 2018 12:27pm L. Acidophilus-L. Rhamnosus (Probiotic) 15 billion cell capsule (20 sources) Star t: 04-15 End: 05-29 L. Acidophilus-L. Rhamnosus (Probiotic) 15 billion cell capsule Discontinued 1 NMA PO DAILY November 03, 2023 1:00am June 19, 2024 4:31pm Start: 11-03-2023 take 1 capsule by mo ut once daily L. Acidophilus-L. Rhamnosus (Probiotic) 15 billion cell capsule Active 1 CAP PO DAILY November 03, 2023 1:00am Start: 11-03-2023 take 1 capsule by mo uth once daily L. Acidophilus-L. Rhamnosus (Probiotic) 15 billion cell capsule Active 1 CAP PO DAILY November 03, 2023 12:00am losartan potassium 100 mg oral tablet (14 sources) Angiotensin 2 Receptor Rivera Start: 06-19-2024 End: 03-28-2025 take 1 tablet by mouth once daily Losartan 100 mg tablet Discontinued 100 mg PO daily June 19, 2024 12:00am December 22, 2024 12:30pm lutein 20 mg oral capsule (19 sources) Start: 11-23-2023 End: 06-19-2024 take 1 [...] Discontinued 100 mg PO TWICE A DAY 6 November 25, 2023 1:00am March 23, 2024 2:09pm must administer with a meal/food Start: 07-14-2023 take 1 capsule by [facility] twice daily at mealtime Nitrofurantoin Monohyd/M-Cryst (Macrobid) 100 mg capsule Active 100 MG PO TWICE A DAY August 05, 2023 12:00am must administer with a meal/food nystatin 100 unt/mg topical ointment (20 sources) Polyene Antifungal Start: 11-25-2023 End: 03-23-2024 Nystatin 100,000 unit/gram ointment Discontinued 1 NMA TOPICAL TWICE A DAY 24 12November 25, 2023 1:00am March 23, 2024 2:09pm apply to areas of redness in all skin folds twice daily Start: 11-25-2023 Nystatin Activ e 1 APPLIC TOPICAL TWICE A DAY November 25, 2023 1:00am apply to areas of redness in all skin folds twice daily Start: 06-30-2023 End: 07-14-2023 Nystatin (Nyamyc) 100,000 un it/gram Powder Discontinued 1 NMA TOPICAL TWICE A DAY 0 0 June 30, 2023 12:00am July 14, 2023 7:33pm moisture/ Please contact the information source for Protocol details. Start: 06-30-2023 End: 07-14-2023 Nystatin (Nyamy) 100,000 un it/gram Powder Discontinued 1 APPLIC TOPICAL TWICE A DAY 0 June 30, 2023 12:00am July 14, 2023 7:33pm olmesartan medoxomil 20 mg oral tablet (1 source) Angiotensin 2 Receptor Rivera take 1 tablet by mouth once daily olmesartan (BENICAR) 20 mg tablet Take 20 mg by mouth once daily. 0 Active Comment on above: Take 20 mg by mouth once daily. phenazopyridine hydrochloride 100 mg oral tablet (20 sources) Start: 2023 End: 2024 take 1 tablet by mouth three times daily Phenazopyridine 100 mg tablet Discontinued 100 mg PO THREE TIMES A DAY 30 0 June 01, 2024 12:00am December 22, 2024 12:31pm pioglitazone 30 mg oral tablet (20 sources) Peroxisome Proliferator Receptor alpha Agonist, Peroxisome Proliferator Receptor gamma Agonist, Thiazolidinedione Start: 2022 End: 2024 take 1 tablet by mouth once daily Pioglitazone 30 mg tablet Discontinued 30 mg PO DAILY June 25, 2023 12:00am December 22, 2024 12:32pm DM microencapsulated potassium chloride 20 meq extended release oral tablet (20 sources) Start: 2023 End: 2024 Potassium Chloride (Klor-Con M20) 20 mEq tablet,ER particles/crystals Discontinued 20 meq PO daily June 19, 2024 12:00am December 22, 2024 12:32pm Start: 07-14-2023 End: 06-01-2024 Potassium Chloride (Klor-Con M20) 20 mEq Tablet,Er Particles/Crystals Discontinued 20 meq PO DAILY WITH MEALS 30 30 July 14, 2023 12:00am June 01, 2024 8:00am Start: 04-29-2021 End: 07-14-2023 take 2 capsules by mouth once daily Potassium Chloride 10 mEq capsule, extended release Discontinued 20 meq PO DAILY April 29, 2021 12:00am July 14, 2023 7:33pm supplement Start: 04-29-2021 End: 07-14-2023 take 20 mEq by mouth once daily Potassium Chloride Discontinued 20 MEQ PO DAILY April 29, 2021 12:00am July 14, 2023 7:33pm potassium chlori de ER (K-DUR, KLOR-CON) 20 mEq tablet Take 20 mEq by mouth once daily. 0 Active Comment on above: Take 20 mEq by mouth once daily. predniSONE 20 mg oral tablet (20 sources) Start: 01-01-2025 End: 05-10-2025 take 2 tablets by mouth once daily Prednisone 20 mg tablet Discontinued 40 mg PO DAILY 8 4 0 January 01, 2025 12:00am May 10, 2025 7:14pm Start: 07-12-2022 End: 06-25-2023 take 1 tablet by mouth once daily Prednisone 50 mg tablet Discontinued 50 mg PO DAILY 4 0 July 12, 2022 12:00am June 25, 2023 4:35pm sour waldron allergenic extract (20 sources) Non-Standardized Food Allergenic Extract, Non-Standardized Plant Allergenic Extract Start: 08-02-2023 End: 12-22-2024 take 1 capsule by mouth once daily [...] MG PO DAILY August 02, 2023 12:00am zeetgym-upwn-wdbtr-oreg-capr yl 100 mg-150 mg- 50 mg-150 mg cap (1 source) Start: 12-07-2016 ufaumwu-fvno-kaelx-oreg-capr yl 100 mg-150 mg- 50 mg-150 mg [...] 125 mg PO EVERY 4 HOURS 0 0 June 30, 2023 12:00am July 14, 2023 7:34pm antibiotic continue for 5 days starting 06/30/23 Vibegron (14 sources) Start: 08-11-2024 End: 05-10-2025 take 1 tablet by mouth once daily Vibegron (Gemtesa) 75 mg tablet Discontinued 75 mg PO daily August 11, 2024 1:00am May 10, 2025 7:14pm Start: 08-11-2024 take 1 tablet by abdelrahman th once daily Vibegron (Gemtesa) 75 mg tablet Active 75 mg PO daily August 11, 2024 1:00am Problems Active Problems Problem Classification Problem Date Documented Date Episodic/Chronic Acute and unspecified renal failure (20 sources) Acute renal failure syndrome; Translations: [Acute kidney failure, unspecified] 07-08-2023 Episodic Asthma (20 sources) Asthma; Translations: [Unspecified asthma, uncomplicated] 06-30-2023 Chronic Comment on above: INHALER Cardiac dysrhythmias (4 sources) Paroxysmal supraventricular tachycardia; Translations: [Paroxysmal supraventricular tachycardia] 05-11-2025 Chronic Cardiac dysrhythmias (20 sources) ECG: sinus tachycardia; Translations: [Tachycardia, unspecified] 07-08-2023 Episodic Chronic kidney disease (2 sources) Chronic kidney disease; Translations: [Chronic kidney disease, stage 3a] Onset: 12-25-2024 Chronic ulcer of skin (10 sources) Non-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 without evidence of necrosis; Translations: [Non-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 without] Onset: 05-15-2025 05-11-2025 Chronic Diabetes mellitus with complications (15 sources) Infection of foot due to diabetes mellitus; Translations: [Type 2 diabetes mellitus with other skin complications] Onset: 02-05-2025 05-10-2025 Chronic Diabetes mellitus without complication (20 sources) Diabetes mellitus; Translations: [Type 2 diabetes mellitus without complications] 07-07-2023 Chronic Comment on above: ON MED Diseases of white blood cells (20 sources) Leukocytosis; Translations: [Elevated white blood cell count, unspecified] 07-08-2023 Chronic Essential hypertension (20 sources) Hypertensive disorder; Translations: [Essential (primary) hypertension] 06-30-2023 Chronic Comment on above: NO MEDS, RESOLVED Fever of unknown origin (20 sources) Fever; Translations: [Fever, unspecified] 03-29-2020 Episodic Fluid and electrolyte disorders (20 sources) Dehydration; Translations: [Dehydration] Onset: 01-19-2013 01-19-2013 Episodic Genitourinary symptoms and ill-defined conditions (15 sources) Urgent desire to urinate; Translations: [Urgency [...] dermatophyte ; Translations: [Tinea unguium] 07-07-2023 Episodic Osteoarthritis (20 sources) Osteoarthritis; Translations: [Unspecified osteoarthritis, [...] in limb] 07-15-2023 Episodic Other diseases of veins and lymphatics (1 source) Peripheral venous insufficiency; Translations: [Venous insufficiency (chronic) (peripheral)] Episodic Other hereditary and degenerative nervous system conditions (20 sources) Restless legs; Translations: [Restless legs syndrome] 06-30-2023 Chronic Other hereditary and degenerative nervous system conditions (6 sources) Restless legs syndrome; Translations: [Restless legs syndrome (RLS)] 07-15-2023 Chronic Other non-traumatic joint disorders (5 sources) Pain in wrist; Translations: [Pain in left wrist] 01-09-2025 Episodic Other nutritional; endocrine; and metabolic disorders (1 source) Morbid obesity; Translations: [Morbid (severe) obesity due to excess calories] Onset: 06-09-2012 06-09-2012 Chronic Other nutritional; endocrine; and metabolic disorders (4 sources) H/O: diabetes mellitus; Translations: [Personal history of other endocrine, nutritional and metabolic disease] 05-11-2025 Episodic Other skin disorders (20 sources) Ingrowing [...] shock; Translations: [Sepsis, unspecified organism] 07-08-2023 Episodic Skin and subcutaneous tissue infections (10 sources) Cellulitis of left lower limb; Translations: [Cellulitis of left lower limb] Onset: 05-15-2025 05-11-2025 Episodic Thyroid disorders (1 source) Hypothyroidism, unspecified; Translations: [Hypothyroidism, unspecified] Onset: 01-01-2025 Chronic Viral infection (20 sources) Disease caused by 2019-nCoV; Translations: [COVID-19] 04-27-2021 Episodic Past or Other Problems Problem Classification Problem Date Documented Date Episodic/Chronic Calculus of urinary tract (20 sources) Kidney stone; Translations: [Calculus of kidney] Onset: 05-18-2013 05-18-2013 Episodic Neoplasms of unspecified nature or uncertain behavior (16 sources) Neoplasm of uncertain behavior of skin of face; Translations: [Neoplasm of uncertain behavior of skin] Onset: 01-24-2025 01-18-2025 Episodic Comment on above: Left cheek (pearly l esion with keratin center). Lesion approximately 0.5 x 0.5 cm Other non-traumatic joint disorders (6 sources) Pain in right knee; Translations: [Acute pain of right knee] Onset: 01-04-2025 01-09-2025 Episodic Other screening for suspected conditions (not mental disorders or infectious disease) (2 sources) Patient encounter status; Translations: [Encounter for screening for other disorder] Onset: 06-11-2015 06-11-2015 Episodic Residual codes; unclassified (1 source) Chills (without fever); Translations: [Chills (without fever)] Onset: 07-20-2024 Episodic Urinary tract infections (20 sources) Recurrent urinary tract infection; Translations: [Urinary tract infection, site not specified] Onset: 06-09-2012 06-09-2012 Episodic Results Test Name Value Interpretation Reference Range Facility Culture, Anaerobic Any Sourc blaise 05-18-2025 [facility] Comment on above: Performed By: #### M 100.2000, M100.4001, M100.3000 ####[facility] [address] [place], [address] Wound Cultureon 05-17-2025 Normal [facility] Comment on above: Performed By: #### M 100.2000, M100.4001, M100.3000 ####[facility] [address] [place], [address] Bedside Glucoseon 05-15-2025 FINGERSTICK GLU 231 mg/dL High 74-106 [facility] Comment on above: Result Comment: MAHAD BUCKLEY OF PATIENT CARE PER NURSING PROTOCOL Performed By: #### L 501.080 ####[facility] [address] [place], [address] FINGERSTICK GLU 198 mg/dL High 74-106 [facility] Comment on above: Result Comment: MAHAD BUCKLEY OF PATIENT CARE PER NURSING PROTOCOL Performed By: #### L 501.080 ####[facility] [address] [place], [place], [id number] [facility] deOrdered By: Flaco Yang on 05-15-2025 Glucose [Mass/Vol] 231 mg/dL High 74-106 [facility] Comment on above: MANAGEMENT OF PATIEN T CARE PER NURSING PROTOCOL Absolute lymphocyte countOrd ered By: Hari Miranda on 05-14-2025 Lymphocytes Auto (Unsp spec) [#/Vol] 1.56 10*3/uL 0.83-4.51 [facility] Absolute neutrophil countOrd ered By: Hari Miranda on 05-14-2025 Neutrophils (Bld) [#/Vol] 4.6 10*3/uL 2.0-7.7 [facility] Anion gap in Serum or Plasma Ordered By: Hari Miranda on 05-14-2025 Anion gap [Moles/Vol] 13 mmol/L 5-15 [facility] Automated lymphocyte count a s percentage of total leukocytesOrdered By: Hari Miranda on 05-14-2025 Lymphocytes/100 WBC Auto (Unsp spec) 19.5 % 19-41 [facility] BUN/creatinine ratioOrdered By: Hari Miranda on 05-14-2025 Urea nitrogen/Creatinine [Mass ratio] 26.1 mg/mg High 10-20 [facility] Basic Metabolic Profile (BMP )on 05-14-2025 BUN/CRE 26.1 RATIO High - [facility] Comment on above: Performed By: #### L 100.0100, L500.2500 ####[facility] [address] [place], [address] Calcium [Mass/Vol] 9.3 mg/dL Normal 7.6-11.0 [facility] Comment on above: Performed By: #### L 100.0100, L500.2500 ####[facility] [address] [place], [address] Chloride [Moles/Vol] 105 mmol/L Normal 98-108 [facility] Comment on above: Performed By: #### L 100.0100, L500.2500 ####[facility] [address] [place], [address] CO2 [Moles/Vol] 21.7 mmol/L Normal 21.0-32.0 [facility] Comment on above: Performed By: #### L 100.0100, L500.2500 ####[facility] [address] [place], [address] Creatinine [Mass/Vol] 1.09 mg/dL Normal 0.70-1.20 [facility] Comment on above: Performed By: #### L 100.0100, L500.2500 ####[facility] [address] [place], [address] ECRCL 50.89 ml/min Normal 50-250 [facility] Comment on above: Performed By: #### L 100.0100, L500.2500 ####[facility] [address] [place], [address] GAP 13 Normal 5-15 [facility] Comment on above: Performed By: #### L 100.0100, L500.2500 ####[facility] [address] [place], [address] GFR/1.73 sq M.predicted among non-blacks MDRD (S/P/Bld) [Vol rate/Area] 53 mL/min/{1.73_m2} Low >60 [facility] Comment on above: Result Comment: mL/m in/1.73m2 CKD-EPI Creatinine Equation (2020) Performed By: #### L 100.0100, L500.2500 ####[facility] [address] [place], [address] Glucose [Mass/Vol] 117 mg/dL High 70-99 [facility] Comment on above: Performed By: #### L 100.0100, L500.2500 ####[facility] [address] [place], [address] Potassium [Moles/Vol] 3.8 mmol/L Normal 3.3-5.1 [facility] Comment on above: Performed By: #### L 100.0100, L500.2500 ####[facility] [address] [place], [address] Sodium [Moles/Vol] 139 mmol/L Normal 133-145 [facility] Comment on above: Performed By: #### L 100.0100, L500.2500 ####[facility] [address] [place], [address] Urea nitrogen [Mass/Vol] 28 mg/dL High 4-19 [facility] Comment on above: Performed By: #### L 100.0100, L500.2500 ####[facility] [address] [place], [address] Basophil percentageOrdered B y: Hari Miranda on 05-14-2025 Basophils/100 WBC (Bld) 0.8 % 0-1 [facility] Bedside Glucoseon 05-14-2025 FINGERSTICK GLU 196 mg/dL High 74-106 [facility] Comment on above: Result Comment: MAHAD GEMENT OF PATIENT CARE PER NURSING PROTOCOL Performed By: #### L 501.080 ####[facility] [address] [place], [address] FINGERSTICK GLU 175 mg/dL High 74-106 [facility] Comment on above: Result Comment: MAHAD GEMENT OF PATIENT CARE PER NURSING PROTOCOL Performed By: #### L 501.080 ####[facility] [address] [place], [address] FINGERSTICK GLU 146 mg/dL High 74-106 [facility] Comment on above: Result Comment: MAHAD GEMENT OF PATIENT CARE PER NURSING PROTOCOL Performed By: #### L 501.080 ####[facility] [address] [place], [address] FINGERSTICK GLU 109 mg/dL High 74-106 [facility] Comment on above: Result Comment: MAHAD GEMENT OF PATIENT CARE PER NURSING PROTOCOL Performed By: #### L 501.080 ####[facility] [address] [place], [address] CBC W/Diff, Automatedon 04-27 Absolute Lymph 1.56 X10 3/uL Normal 0.83-4.51 [facility] Comment on above: Performed By: #### L 100.0100, L500.2500 ####[facility] [address] [place], [address] Absolute Neut 4.6 X10 3/uL Normal 2.0-7.7 [facility] Comment on above: Performed By: #### L 100.0100, L500.2500 ####[facility] [address] [place], [address] Basophils/100 WBC (Bld) 0.8 % Normal 0-1 [facility] Comment on above: Performed By: #### L 100.0100, L500.2500 ####[facility] [address] [place], [address] Eosinophils/100 WBC (Bld) 13.9 % High 0-5 [facility] Comment on above: Performed By: #### L 100.0100, L500.2500 ####[facility] [address] [place], [address] Erythrocyte distribution width (RBC) [Ratio] 14.8 % High 11.6-14.6 [facility] Comment on above: Performed By: #### L 100.0100, L500.2500 ####[facility] [address] [place], [address] Hematocrit (Bld) [Volume fraction] 27.1 % Low 37-47 [facility] Comment on above: Performed By: #### L 100.0100, L500.2500 ####[facility] [address] [place], [address] Hemoglobin (Bld) [Mass/Vol] 8.8 g/dL Low 12.0-15.0 [facility] Comment on above: Performed By: #### L 100.0100, L500.2500 ####[facility] [address] [place], [address] IG% 1.000 High 0.0-0.9 [facility] Comment on above: Result Comment: IG% - Immature Granulocytes (promyelocytes, myelocytes andmetamyelocytes) > 1% indicates that a LEFT SHIFT is Present. Performed By: #### L 100.0100, L500.2500 ####[facility] [address] [place], [address] Lymphocytes/100 WBC (Bld) 19.5 % Normal 19-41 [facility] Comment on above: Performed By: #### L 100.0100, L500.2500 ####[facility] [address] [place], [address] MCH (RBC) [Entitic mass] 30.3 pg Normal 27.0-32.0 [facility] Comment on above: Performed By: #### L 100.0100, L500.2500 ####[facility] [address] [place], [address] MCHC (RBC) [Mass/Vol] 32.5 g/dL Normal 32-36 [facility] Comment on above: Performed By: #### L 100.0100, L500.2500 ####[facility] [address] [place], [address] MCV (RBC) [Entitic vol] 93.4 fL Normal 81-99 [facility] Comment on above: Performed By: #### L 100.0100, L500.2500 ####[facility] [address] [place], [address] Monocytes/100 WBC (Bld) 7.9 % Normal 0-10 [facility] Comment on above: Performed By: #### L 100.0100, L500.2500 ####[facility] [address] [place], [address] Neutrophils/100 WBC (Bld) 56.9 % Normal 47-70 [facility] Comment on above: Performed By: #### L 100.0100, L500.2500 ####[facility] [address] [place], [address] Nucleated RBC (Bld) [#/Vol] 0 10*3/uL Normal 0-5 [facility] Comment on above: Performed By: #### L 100.0100, L500.2500 ####[facility] [address] [place], [address] Platelet mean volume (Bld) [Entitic vol] 9.4 fL Normal 6.2-12.0 [facility] Comment on above: Performed By: #### L 100.0100, L500.2500 ####[facility] [address] [place], [address] Platelets (Bld) [#/Vol] 185 10*3/uL Normal 150-450 [facility] Comment on above: Performed By: #### L 100.0100, L500.2500 ####[facility] [address] [place], [address] RBC (Bld) [#/Vol] 2.90 10*6/uL Low 4.2-5.4 [facility] Comment on above: Performed By: #### L 100.0100, L500.2500 ####[facility] [address] [place], [address] RDW SD 50.6 fl High 35.1-43.9 [facility] Comment on above: Performed By: #### L 100.0100, L500.2500 ####[facility] [address] [place], [address] WBC (Bld) [#/Vol] 8.0 10*3/uL Normal 4.4-11.0 [facility] Comment on above: Performed By: #### L 100.0100, L500.2500 ####[facility] [address] [place], [address] Carbon dioxide, total [Moles /volume] in Central venous bloodOrdered By: Hari Miranda on 05-14-2025 CO2 [Moles/Vol] 21.7 mmol/L 21.0-32.0 [facility] Chloride assayOrdered By: Nando Miranda on 05-14-2025 Chloride [Moles/Vol] 105 mmol/L 98-108 [facility] Eosinophil percentageOrdered By: Hari Miranda on 05-14-2025 Eosinophils/100 WBC (Bld) 13.9 % High 0-5 [facility] Erythrocyte distribution wid th ratioOrdered By: Hari Miranda on 05-14-2025 Erythrocyte distribution width (RBC) [Ratio] 14.8 % High 11.6-14.6 [facility] Erythrocyte distribution wid th standard deviationOrdered By: Hari Miranda on 05-14-2025 Erythrocyte distribution width (RBC) [Ratio] 50.6 fl High 35.1-43.9 [facility] Glomerular filtration rate ( GFR) estimation/1.73 sq m using serum, plasma, or whole bOrdered By: Hari Miranda on 05-14-2025 GFR/1.73 sq M.predicted among non-blacks MDRD (S/P/Bld) [Vol rate/Area] 53 mL/min/{1.73_m2} Low >60 [facility] Comment on above: mL/min/1.73m2 CKD-EP I Creatinine Equation (2020) Hematocrit Auto (Bld) [Volum e fraction]Ordered By: Hari Miranda on 05-14-2025 Hematocrit (Bld) [Volume fraction] 27.1 % Low 37-47 [facility] Hemoglobin measurementOrdere d By: Hari Miranda on 05-14-2025 Hemoglobin (Bld) [Mass/Vol] 8.8 g/dL Low 12.0-15.0 [facility] Immature granulocytes/100 WB C Auto (Bld)Ordered By: Hari Miarnda on 05-14-2025 Immature granulocytes/100 WBC (Bld) 1.000 % High 0.0-0.9 [facility] Comment on above: IG% - Immature Granu locytes (promyelocytes, myelocytes and metamyelocytes) > 1% indicates that a LEFT SHIFT is Present. MCV (mean corpuscular volume ) determinationOrdered By: Hari Miranda on 05-14-2025 MCV (RBC) [Entitic vol] 93.4 fL 81-99 [facility] Mean corpuscular hemoglobin (MCH) determinationOrdered By: Hari Miranda on 05-14-2025 MCH (RBC) [Entitic mass] 30.3 pg 27.0-32.0 [facility] Mean corpuscular hemoglobin concentration (MCHC) determinationOrdered By: Hari Miranda on 05-14-2025 MCHC (RBC) [Mass/Vol] 32.5 g/dL 32-36 [facility] Mean platelet volume determi nationOrdered By: Hari Miranda on 05-14-2025 Platelet mean volume (Bld) [Entitic vol] 9.4 fL 6.2-12.0 [facility] Monocyte percentageOrdered B y: Hari Miranda on 05-14-2025 Monocytes/100 WBC (Bld) 7.9 % 0-10 [facility] Neutrophil percentageOrdered By: Hari Miranda on 05-14-2025 Neutrophils/100 WBC (Bld) 56.9 % 47-70 [facility] Nucleated red blood cell per centageOrdered By: Hari Miranda on 05-14-2025 Nucleated RBC/100 WBC (Bld) [Ratio] 0 % 0-5 [facility] Platelet countOrdered By: Nando Miranda on 05-14-2025 Platelets (Bld) [#/Vol] 185 10*3/uL 150-450 [facility] Potassium measurement (mass/ volume)Ordered By: Hari Miranda on 05-14-2025 Potassium (Unsp spec) [Mass/Vol] 3.8 mmol/L 3.3-5.1 [facility] RBC Auto (Bld) [#/Vol]Ordere d By: Hari Miranda on 05-14-2025 RBC (Bld) [#/Vol] 2.90 10*6/uL Low 4.2-5.4 [facility] Serum creatinine measurement (mass/volume)Ordered By: Hari Miranda on 05-14-2025 Creatinine [Mass/Vol] 1.09 mg/dL 0.70-1.20 [facility] Serum glucose measurement (m ass/volume)Ordered By: Hari Miranda on 05-14-2025 Glucose [Mass/Vol] 117 mg/dL High 70-99 [facility] Serum or plasma calcium sarbjit urement (mass/volume)Ordered By: Hari Miranda on 05-14-2025 Calcium [Mass/Vol] 9.3 mg/dL 7.6-11.0 [facility] Serum or plasma urea nitroge n measurement (mass/volume)Ordered By: Hari Miranda on 05-14-2025 Urea nitrogen [Mass/Vol] 28 mg/dL High 4-19 [facility] Sodium levelOrdered By: Leticia Miranda on 05-14-2025 Sodium [Moles/Vol] 139 mmol/L 133-145 [facility] White blood cell (WBC) count Ordered By: Hari Miranda on 05-14-2025 WBC (Bld) [#/Vol] 8.0 10*3/uL 4.4-11.0 [facility] Arterial study reportOrdered By: Roni Eller on 05-13-2025 Noninvasive arteriosclerosis study report [facility] [address] [place] [address] Lower Ext Art Exam w/o Exercis 05/11/25 1457 MR#: [id number] Acct: [id number] Name: EDUAR CABRERA Rep #:[id number] : 1950 75 From: Roni Eller MD Attending Dr: Dr. Hari Miranda MD Status: ADM IN Ordering Dr: Luis BhardwajM Date: 05/11/25 Location: [facility] Sex: F C Admitted: 05/10/25 Reason For Study Reason For Study: Ulcer Procedure A bilateral lower extremity continuous wave Doppler with analog waveform analysis,segmental pressures,and ankle brachial indexes without exercise. Left Segmental Pressures Left posterior tibial artery = 118mmHg. Left dorsalis pedis artery = 115mmHg. Left digit = 82 mmHg. The left dorsalis pedis waveforms are triphasic. The left posterior tibial artery waveforms are triphasic. Right Segmental Pressures Right brachial= 117mmHg. Right posterior tibial artery = 130mmHg. Right dorsalispedis artery = 123mmHg. Right digit = 115 mmHg. The right dorsalis pedis waveforms are triphasic. The right posterior tibial artery waveforms are triphasic. Indices The right ankle brachial index by the dorsalis pedis is 1.05. The right ankle brachial index by the posterior tibial artery is 1.11. The right digital-brachial index is 0.98. The left ankle brachial index by the dorsalis pedis is 0.98. The left ankle brachial index by the posterior tibial artery is 1.01. The left digital-brachial index is 0.70. VL/Lower Ext Art Exam w/o Exercis Interpretation Summary Triphasic Doppler waveforms are noted at ankle level bilaterally. Pulse-volume recordings appear satisfactory at all levels bilaterally. Resting ankle-brachial indices are normal bilaterally. The right digital-brachial index is normal. The left digital-brachial index is low-normal. There is no evidence of significant arterial occlusive disease in the lower extremities bilaterally. Ordering Physician: Luis Bhardwaj Referring Physician: Corby Heller Chi Performed By: NELLIE PARIS RVT 05/13/252014 Date _ Roni Eller MD CC: DPM Dr. Luis Bhardwaj; Dr. Hari Miranda MD; Dr. Corby Heller MD ~ Date Dictated: 05/11/257 Date Transcribed: 05/13/252014 Lace Winder: Signed [facility] Other Phone: Basic Metabolic Profile (BMP )on 05-13-2025 BUN/CRE 26.1 RATIO High 10-20 [facility] Comment on above: Performed By: #### L 500.2500 ####[facility] [address] [place], [address] Calcium [Mass/Vol] 8.9 mg/dL Normal 7.6-11.0 [facility] Comment on above: Performed By: #### L 500.2500 ####[facility] [address] [place], [address] Chloride [Moles/Vol] 104 mmol/L Normal 98-108 [facility] Comment on above: Performed By: #### L 500.2500 ####[facility] [address] [place], [address] CO2 [Moles/Vol] 22.9 mmol/L Normal 21.0-32.0 [facility] Comment on above: Performed By: #### L 500.2500 ####[facility] [address] [place], [address] Creatinine [Mass/Vol] 1.02 mg/dL Normal 0.70-1.20 [facility] Comment on above: Performed By: #### L 500.2500 ####[facility] [address] [place], [address] ECRCL 54.39 ml/min Normal 50-250 [facility] Comment on above: Performed By: #### L 500.2500 ####[facility] [address] [place], [address] GAP 11 Normal 5-15 [facility] Comment on above: Performed By: #### L 500.2500 ####[facility] [address] [place], [address] GFR/1.73 sq M.predicted among non-blacks MDRD (S/P/Bld) [Vol rate/Area] 57 mL/min/{1.73_m2} Low >60 [facility] Comment on above: Result Comment: mL/m in/1.73m2 CKD-EPI Creatinine Equation (2020) Performed By: #### L 500.2500 ####[facility] [address] [place], [address] Glucose [Mass/Vol] 111 mg/dL High 70-99 [facility] Comment on above: Performed By: #### L 500.2500 ####[facility] [address] [place], [address] Potassium [Moles/Vol] 4.3 mmol/L Normal 3.3-5.1 [facility] Comment on above: Performed By: #### L 500.2500 ####[facility] [address] [place], [address] Sodium [Moles/Vol] 138 mmol/L Normal 133-145 [facility] Comment on above: Performed By: #### L 500.2500 ####[facility] [address] [place], [address] Urea nitrogen [Mass/Vol] 27 mg/dL High 4-19 [facility] Comment on above: Performed By: #### L 500.2500 ####[facility] [address] [place], [address] Bedside Glucoseon 05-13-2025 FINGERSTICK GLU 97 mg/dL Normal 74-106 [facility] Comment on above: Result Comment: MAHAD GEMENT OF PATIENT CARE PER NURSING PROTOCOL Performed By: #### L 501.080 ####[facility] [address] [place], [address] FINGERSTICK GLU 119 mg/dL High 74-106 [facility] Comment on above: Result Comment: MAHAD GEMENT OF PATIENT CARE PER NURSING PROTOCOL Performed By: #### L 501.080 ####[facility] [address] [place], [address] FINGERSTICK GLU 134 mg/dL High 74-106 [facility] Comment on above: Result Comment: MAHAD GEMENT OF PATIENT CARE PER NURSING PROTOCOL Performed By: #### L 501.080 ####[facility] [address] [place], [address] FINGERSTICK GLU 115 mg/dL High 74-106 [facility] Comment on above: Result Comment: MAHAD GEMENT OF PATIENT CARE PER NURSING PROTOCOL Performed By: #### L 501.080 ####[facility] [address] [place], [address] Basic Metabolic Profile (BMP )on 05-12-2025 BUN/CRE 28.1 RATIO High 10-20 [facility] Comment on above: Performed By: #### L 100.0100, L500.2500 ####[facility] [address] [place], [address] Calcium [Mass/Vol] 8.6 mg/dL Normal 7.6-11.0 [facility] Comment on above: Performed By: #### L 100.0100, L500.2500 ####[facility] [address] [place], [address] Chloride [Moles/Vol] 103 mmol/L Normal 98-108 [facility] Comment on above: Performed By: #### L 100.0100, L500.2500 ####[facility] [address] [place], [address] CO2 [Moles/Vol] 21.6 mmol/L Normal 21.0-32.0 [facility] Comment on above: Performed By: #### L 100.0100, L500.2500 ####[facility] [address] [place], [address] Creatinine [Mass/Vol] 1.10 mg/dL Normal 0.70-1.20 [facility] Comment on above: Performed By: #### L 100.0100, L500.2500 ####[facility] [address] [place], [address] ECRCL 50.43 ml/min Normal 50-250 [facility] Comment on above: Performed By: #### L 100.0100, L500.2500 ####[facility] [address] [place], [address] GAP 11 Normal 5-15 [facility] Comment on above: Performed By: #### L 100.0100, L500.2500 ####[facility] [address] [place], [address] GFR/1.73 sq M.predicted among non-blacks MDRD (S/P/Bld) [Vol rate/Area] 52 mL/min/{1.73_m2} Low >60 [facility] Comment on above: Result Comment: mL/m in/1.73m2 CKD-EPI Creatinine Equation (2020) Performed By: #### L 100.0100, L500.2500 ####[facility] [address] [place], [address] Glucose [Mass/Vol] 108 mg/dL High 70-99 [facility] Comment on above: Performed By: #### L 100.0100, L500.2500 ####[facility] [address] [place], [address] Potassium [Moles/Vol] 3.9 mmol/L Normal 3.3-5.1 [facility] Comment on above: Performed By: #### L 100.0100, L500.2500 ####[facility] [address] [place], [address] Sodium [Moles/Vol] 136 mmol/L Normal 133-145 [facility] Comment on above: Performed By: #### L 100.0100, L500.2500 ####[facility] [address] [place], [address] Urea nitrogen [Mass/Vol] 31 mg/dL High 4-19 [facility] Comment on above: Performed By: #### L 100.0100, L500.2500 ####[facility] [address] [place], [address] Bedside Glucoseon 05-12-2025 FINGERSTICK GLU 152 mg/dL High 74-106 [facility] Comment on above: Result Comment: MAHAD GEMENT OF PATIENT CARE PER NURSING PROTOCOL Performed By: #### L 501.080 ####[facility] [address] [place], [address] FINGERSTICK GLU 130 mg/dL High 74-106 [facility] Comment on above: Result Comment: MAHAD GEMENT OF PATIENT CARE PER NURSING PROTOCOL Performed By: #### L 501.080 ####[facility] [address] [place], [address] FINGERSTICK GLU 128 mg/dL High 74-106 [facility] Comment on above: Result Comment: MAHAD GEMENT OF PATIENT CARE PER NURSING PROTOCOL Performed By: #### L 501.080 ####[facility] [address] [place], [address] FINGERSTICK GLU 149 mg/dL High 74-106 [facility] Comment on above: Result Comment: MAHAD GEMENT OF PATIENT CARE PER NURSING PROTOCOL Performed By: #### L 501.080 ####[facility] [address] [place], [address] FINGERSTICK GLU 104 mg/dL Normal 74-106 [facility] Comment on above: Result Comment: MAHAD GEMENT OF PATIENT CARE PER NURSING PROTOCOL Performed By: #### L 501.080 ####[facility] [address] [place], [address] FINGERSTICK GLU 135 mg/dL High 74-106 [facility] Comment on above: Result Comment: MAHAD GEMENT OF PATIENT CARE PER NURSING PROTOCOL Performed By: #### L 501.080 ####[facility] [address] [place], [address] CBC W/Diff, Automatedon 04-27 Absolute Lymph 1.42 X10 3/uL Normal 0.83-4.51 [facility] Comment on above: Performed By: #### L 100.0100, L500.2500 ####[facility] [address] [place], [address] Absolute Neut 4.6 X10 3/uL Normal 2.0-7.7 [facility] Comment on above: Performed By: #### L 100.0100, L500.2500 ####[facility] [address] [place], [address] Basophils/100 WBC (Bld) 0.7 % Normal 0-1 [facility] Comment on above: Performed By: #### L 100.0100, L500.2500 ####[facility] [address] [place], [address] Eosinophils/100 WBC (Bld) 17.1 % High 0-5 [facility] Comment on above: Performed By: #### L 100.0100, L500.2500 ####[facility] [address] [place], [address] Erythrocyte distribution width (RBC) [Ratio] 14.7 % High 11.6-14.6 [facility] Comment on above: Performed By: #### L 100.0100, L500.2500 ####[facility] [address] [place], [address] Hematocrit (Bld) [Volume fraction] 27.3 % Low 37-47 [facility] Comment on above: Performed By: #### L 100.0100, L500.2500 ####[facility] [address] [place], [address] Hemoglobin (Bld) [Mass/Vol] 8.8 g/dL Low 12.0-15.0 [facility] Comment on above: Performed By: #### L 100.0100, L500.2500 ####[facility] [address] [place], [address] IG% 1.000 High 0.0-0.9 [facility] Comment on above: Result Comment: IG% - Immature Granulocytes (promyelocytes, myelocytes andmetamyelocytes) > 1% indicates that a LEFT SHIFT is Present. Performed By: #### L 100.0100, L500.2500 ####[facility] [address] [place], [address] Lymphocytes/100 WBC (Bld) 17.4 % Low 19-41 [facility] Comment on above: Performed By: #### L 100.0100, L500.2500 ####[facility] [address] [place], [address] MCH (RBC) [Entitic mass] 30.3 pg Normal 27.0-32.0 [facility] Comment on above: Performed By: #### L 100.0100, L500.2500 ####[facility] [address] [place], [address] MCHC (RBC) [Mass/Vol] 32.2 g/dL Normal 32-36 [facility] Comment on above: Performed By: #### L 100.0100, L500.2500 ####[facility] [address] [place], [address] MCV (RBC) [Entitic vol] 94.1 fL Normal 81-99 [facility] Comment on above: Performed By: #### L 100.0100, L500.2500 ####[facility] [address] [place], [address] Monocytes/100 WBC (Bld) 7.6 % Normal 0-10 [facility] Comment on above: Performed By: #### L 100.0100, L500.2500 ####[facility] [address] [place], [address] Neutrophils/100 WBC (Bld) 56.2 % Normal 47-70 [facility] Comment on above: Performed By: #### L 100.0100, L500.2500 ####[facility] [address] [place], [address] Nucleated RBC (Bld) [#/Vol] 0 10*3/uL Normal 0-5 [facility] Comment on above: Performed By: #### L 100.0100, L500.2500 ####[facility] [address] [place], [address] Platelet mean volume (Bld) [Entitic vol] 9.6 fL Normal 6.2-12.0 [facility] Comment on above: Performed By: #### L 100.0100, L500.2500 ####[facility] [address] [place], [address] Platelets (Bld) [#/Vol] 173 10*3/uL Normal 150-450 [facility] Comment on above: Performed By: #### L 100.0100, L500.2500 ####[facility] [address] [place], [address] RBC (Bld) [#/Vol] 2.90 10*6/uL Low 4.2-5.4 [facility] Comment on above: Performed By: #### L 100.0100, L500.2500 ####[facility] [address] [place], [address] RDW SD 51.3 fl High 35.1-43.9 [facility] Comment on above: Performed By: #### L 100.0100, L500.2500 ####[facility] [address] [place], [address] WBC (Bld) [#/Vol] 8.2 10*3/uL Normal 4.4-11.0 [facility] Comment on above: Performed By: #### L 100.0100, L500.2500 ####[facility] [address] [place], [address] Magnetic resonance imaging r eportOrdered By: Scott Merino on 05-12-2025 Study report [facility] Imaging Services [address] [place] [address] Lower Ext No Joint W/WO Cont MR#: [id number] Acct: [id number] Name: EDUAR CABRERA Rep #: [id number] : 1950 F 75 From: Rubén Merino MD PCP: Dr. Corby Heller MD Status: ADM I N Study:Lower Ext No Joint W/WO Cont Date of Ex am: 05/11/25 Exam# [id number] Ordering Dr: Richi Lopez MD PROCEDURE: LOWER EXT NO JOINT W/WO CONT 05/11/2025 REASON FOR EXAM: DIABETIC FOOT INFECTION, ELEVATED ESR AND CRP TECHNIQUE: LOWER EXT NO JOINT W/WO CONT CONTRAST: Clariscan VOLUME: 23 mL COMPARISON: none FINDINGS: Diffuse ill defined soft tissue thickening, edema and enhancement seen involvingthe little toe predominantly extending along the dorsolateral and planter aspects of its phalanges with overlying small soft tissue defects/ulcers along its tip as well as along its distal metatarsal shaft. Related cortical irregularities of its distal phalanx with marrow edema of its phalanges suggesting osteomyelitis. Medial subluxation of the little toe phalanges noted. Focal subcutaneous soft tissue thickening of the planter aspect of the little toe metatarsophalangeal joint, possibly adventitial bursitis. Diffuse extensive subcutaneous soft tissue edema of the foot most evident along its dorsolateral aspect with no obvious marginally enhancing abscesses formation. Diffuse atrophic changes of the examine foot muscles. Degenerative arthropathic changes of the inter-tarsal and to less extent tarsometatarsal articulations evident by narrowed joints spaces with marginal lipping of their opposing articular surfaces associated cortical irregularities, subcortical pseudocystic changes and marrow edema. Mild Degenerative arthropathic changes of the big and little toes metatarsophalangeal evident by narrowed joints spaces with marginal lipping of their opposing articular surfaces. No marrow infiltrative lesions. Mild metatarsophalangeal, tarsometatarsal and intertarsal joints effusion. The examined distal segment of the planter fascia appears intact. The examined tendons are intact. MRI/Lower Ext No Joint W/WO Cont IMPRESSION: Findings are suggestive of little toe cellulitis with overlying small soft tissue defects/ulcers, related cortical irregularities of its distal phalanx with marrow edema of its phalanges suggesting osteomyelitis. Focal subcutaneous soft tissue thickening of the planter aspect of the little toe metatarsophalangeal joint, possibly adventitial bursitis. Diffuse extensive subcutaneous soft tissue edema of the foot most evident along its dorsolateral aspect with no obvious marginally enhancing abscesses formation. Diffuse atrophic changes of the examine foot muscles. Degenerative arthropathic changes of the inter-tarsal and to less extent tarsometatarsal articulations. Mild Degenerative arthropathic changes of the big and little toes metatarsophalangeal. Mild metatarsophalangeal, tarsometatarsal and intertarsal joints effusion. [facility] CC: Dr. Holly Lopez MD; Dr. Corby Heller MD ~ Lace Winder: Signed [facility] Absolute lymphocyte countOrd ered By: Holly Lopez on 05-11-2025 Lymphocytes Auto (Unsp spec) [#/Vol] 1.59 10*3/uL 0.83-4.51 [facility] Absolute neutrophil countOrd ered By: Holly Lopez on 05-11-2025 Neutrophils (Bld) [#/Vol] 7.5 10*3/uL 2.0-7.7 [facility] Anion gap in Serum or Plasma Ordered By: Holly Lopez on 05-11-2025 Anion gap [Moles/Vol] 11 mmol/L - [facility] Automated lymphocyte count a s percentage of total leukocytesOrdered By: Holly Lopez on 05-11-2025 Lymphocytes/100 WBC Auto (Unsp spec) 14.5 % Low 19-41 [facility] BUN/creatinine ratioOrdered By: Holly Lopez on 05-11-2025 Urea nitrogen/Creatinine [Mass ratio] 27.5 mg/mg High 10-20 [facility] Basic Metabolic Profile (BMP )on 05-11-2025 BUN/CRE 27.5 RATIO High 10- [facility] Comment on above: Performed By: #### L 101.9900, L100.0100, L501.6710, L500.2500, L501.9985 ####[facility] [address] [place], [address] Calcium [Mass/Vol] 8.6 mg/dL Normal 7.6-11.0 [facility] Comment on above: Performed By: #### L 101.9900, L100.0100, L501.6710, L500.2500, L501.9985 ####[facility] [address] [place], [address] Chloride [Moles/Vol] 105 mmol/L Normal 98-108 [facility] Comment on above: Performed By: #### L 101.9900, L100.0100, L501.6710, L500.2500, L501.9985 ####[facility] [address] [place], [address] CO2 [Moles/Vol] 21.2 mmol/L Normal 21.0-32.0 [facility] Comment on above: Performed By: #### L 101.9900, L100.0100, L501.6710, L500.2500, L501.9985 ####[facility] [address] [place], [address] Creatinine [Mass/Vol] 1.14 mg/dL Normal 0.70-1.20 [facility] Comment on above: Performed By: #### L 101.9900, L100.0100, L501.6710, L500.2500, L501.9985 ####[facility] [address] [place], [address] ECRCL 48.66 ml/min Low 50-250 [facility] Comment on above: Performed By: #### L 101.9900, L100.0100, L501.6710, L500.2500, L501.9985 ####[facility] [address] [place], [address] GAP 11 Normal 5-15 [facility] Comment on above: Performed By: #### L 101.9900, L100.0100, L501.6710, L500.2500, L501.9985 ####[facility] [address] [place], [address] GFR/1.73 sq M.predicted among non-blacks MDRD (S/P/Bld) [Vol rate/Area] 50 mL/min/{1.73_m2} Low >60 [facility] Comment on above: Result Comment: mL/m in/1.73m2 CKD-EPI Creatinine Equation (2020) Performed By: #### L 101.9900, L100.0100, L501.6710, L500.2500, L501.9985 ####[facility] [address] [place], [address] Glucose [Mass/Vol] 113 mg/dL High 70-99 [facility] Comment on above: Performed By: #### L 101.9900, L100.0100, L501.6710, L500.2500, L501.9985 ####[facility] [address] [place], [address] Potassium [Moles/Vol] 4.3 mmol/L Normal 3.3-5.1 [facility] Comment on above: Result Comment: Hemo lysis present, Results??could be affected.?? Performed By: #### L 101.9900, L100.0100, L501.6710, L500.2500, L501.9985 ####[facility] [address] [place], [address] Sodium [Moles/Vol] 137 mmol/L Normal 133-145 [facility] Comment on above: Performed By: #### L 101.9900, L100.0100, L501.6710, L500.2500, L501.9985 ####[facility] [address] [place], [address] Urea nitrogen [Mass/Vol] 31 mg/dL High 4-19 [facility] Comment on above: Performed By: #### L 101.9900, L100.0100, L501.6710, L500.2500, L501.9985 ####[facility] [address] [place], [address] Basophil percentageOrdered B y: Holly Lopez on 05-11-2025 Basophils/100 WBC (Bld) 0.4 % 0-1 [facility] Bedside Glucoseon 05-11-2025 FINGERSTICK GLU 114 mg/dL High 74-106 [facility] Comment on above: Result Comment: MAHAD BUCKLEY OF PATIENT CARE PER NURSING PROTOCOL Performed By: #### L 501.080 ####[facility] [address] [place], [address] FINGERSTICK GLU 148 mg/dL High 74-106 [facility] Comment on above: Result Comment: MAHAD GEMENT OF PATIENT CARE PER NURSING PROTOCOL Performed By: #### L 501.080 ####[facility] [address] [place], [address] FINGERSTICK GLU 113 mg/dL High 74-106 [facility] Comment on above: Result Comment: Insu keegan GivenMANAGEMENT OF PATIENT CARE PER NURSING PROTOCOL Performed By: #### L 501.080 ####[facility] [address] [place], [address] CBC W/Diff, Automatedon 04-27-2024 Absolute Lymph 1.59 X10 3/uL Normal 0.83-4.51 [facility] Comment on above: Performed By: #### L 101.9900, L100.0100, L501.6710, L500.2500, L501.9985 ####[facility] [address] [facility] [address] Absolute Neut 7.5 X10 3/uL Normal 2.0-7.7 [facility] Comment on above: Performed By: #### L 101.9900, L100.0100, L501.6710, L500.2500, L501.9985 ####[facility] [address] [facility] [address] Basophils/100 WBC (Bld) 0.4 % Normal 0-1 [facility] Comment on above: Performed By: #### L 101.9900, L100.0100, L501.6710, L500.2500, L501.9985 ####[facility] [address] [place], [address] Eosinophils/100 WBC (Bld) 8.9 % High 0-5 [facility] Comment on above: Performed By: #### L 101.9900, L100.0100, L501.6710, L500.2500, L501.9985 ####[facility] [address] [place], [address] Erythrocyte distribution width (RBC) [Ratio] 15.1 % High 11.6-14.6 [facility] Comment on above: Performed By: #### L 101.9900, L100.0100, L501.6710, L500.2500, L501.9985 ####[facility] [address] [place], [address] Hematocrit (Bld) [Volume fraction] 27.8 % Low 37-47 [facility] Comment on above: Performed By: #### L 101.9900, L100.0100, L501.6710, L500.2500, L501.9985 ####[facility] [address] [place], [address] Hemoglobin (Bld) [Mass/Vol] 8.9 g/dL Low 12.0-15.0 [facility] Comment on above: Performed By: #### L 101.9900, L100.0100, L501.6710, L500.2500, L501.9985 ####[facility] [address] [place], [address] IG% 0.800 Normal 0.0-0.9 [facility] Comment on above: Result Comment: IG% - Immature Granulocytes (promyelocytes, myelocytes andmetamyelocytes) > 1% indicates that a LEFT SHIFT is Present. Performed By: #### L 101.9900, L100.0100, L501.6710, L500.2500, L501.9985 ####[facility] [address] [place], [address] Lymphocytes/100 WBC (Bld) 14.5 % Low 19-41 [facility] Comment on above: Performed By: #### L 101.9900, L100.0100, L501.6710, L500.2500, L501.9985 ####[facility] [address] [place], [address] MCH (RBC) [Entitic mass] 30.1 pg Normal 27.0-32.0 [facility] Comment on above: Performed By: #### L 101.9900, L100.0100, L501.6710, L500.2500, L501.9985 ####[facility] [address] [place], [address] MCHC (RBC) [Mass/Vol] 32.0 g/dL Normal 32-36 [facility] Comment on above: Performed By: #### L 101.9900, L100.0100, L501.6710, L500.2500, L501.9985 ####[facility] [address] [place], [address] MCV (RBC) [Entitic vol] 93.9 fL Normal 81-99 [facility] Comment on above: Performed By: #### L 101.9900, L100.0100, L501.6710, L500.2500, L501.9985 ####[facility] [address] [place], [address] Monocytes/100 WBC (Bld) 6.9 % Normal 0-10 [facility] Comment on above: Performed By: #### L 101.9900, L100.0100, L501.6710, L500.2500, L501.9985 ####[facility] [address] [place], [address] Neutrophils/100 WBC (Bld) 68.5 % Normal 47-70 [facility] Comment on above: Performed By: #### L 101.9900, L100.0100, L501.6710, L500.2500, L501.9985 ####[facility] [address] [place], [address] Nucleated RBC (Bld) [#/Vol] 0 10*3/uL Normal 0-5 [facility] Comment on above: Performed By: #### L 101.9900, L100.0100, L501.6710, L500.2500, L501.9985 ####[facility] [address] [place], [address] Platelet mean volume (Bld) [Entitic vol] 9.7 fL Normal 6.2-12.0 [facility] Comment on above: Performed By: #### L 101.9900, L100.0100, L501.6710, L500.2500, L501.9985 ####[facility] [address] [place], [address] Platelets (Bld) [#/Vol] 192 10*3/uL Normal 150-450 [facility] Comment on above: Performed By: #### L 101.9900, L100.0100, L501.6710, L500.2500, L501.9985 ####[facility] [address] [place], [address] RBC (Bld) [#/Vol] 2.96 10*6/uL Low 4.2-5.4 [facility] Comment on above: Performed By: #### L 101.9900, L100.0100, L501.6710, L500.2500, L501.9985 ####[facility] [address] [place], [address] RDW SD 52.9 fl High 35.1-43.9 [facility] Comment on above: Performed By: #### L 101.9900, L100.0100, L501.6710, L500.2500, L501.9985 ####[facility] [address] [place], [address] WBC (Bld) [#/Vol] 11.0 10*3/uL Normal 4.4-11.0 [facility] Comment on above: Performed By: #### L 101.9900, L100.0100, L501.6710, L500.2500, L501.9985 ####[facility] [address] [place], [address] CRPon 05-11-2025 C-REACTIVE PROT 98.10 mg/L High 0.0-3.0 [facility] Comment on above: Performed By: #### L 101.9900, L100.0100, L501.6710, L500.2500, L501.9985 ####[facility] [address] [place], [address] Carbon dioxide, total [Moles /volume] in Central venous bloodOrdered By: Holly Lopez on 05-11-2025 CO2 [Moles/Vol] 21.2 mmol/L 21.0-32.0 [facility] Chloride assayOrdered By: Samantha Lopez on 05-11-2025 Chloride [Moles/Vol] 105 mmol/L 98-108 [facility] Consultation - Infectious Dx on 05-11-2025 Consultation - Infectious Dx Normal [facility] Echocardiogram study reportO rdered By: Darren Dinh on 05-11-2025 Study report [facility] [address] [place] [address] Echo Complete W/ Contrast 05/11/25 0939 MR#: [id number] Acct: [id number] Name: EDUAR CABRERA Rep #:[id number] : 1950 75 From: Darren Whelan Attending Dr: Dr. Hari Miranda MD Status: ADM IN Ordering Dr: Holly Lopez MD Date: Location: PCU Sex: F C Admitted: 05/10/25 Reason For Study Reason For Study: ARRHYTHMIA Procedure This was a 2D Doppler, Color Flow transthoracic echocardiogram. The study was technically difficult. The study was technically limited. Due to body habitus & debility. The patient was scanned supine. Exam performed portable in patient room. Left Ventricle Normal LV size. Normal left ventricular thickness. Unable to assess diastolic dysfunction. Contrast was utilized demonstrating no segmental wall motion abnormalities and unable to assess diastolic function due to mitral annular calcification. Right Ventricle Normal RV size. The right ventricle is normal in size, function, and thickness. Atria Normal left atrium. Normal right atrium. Mitral Valve Diffuse mitral valve thickening with moderate mitral annular calcifications but only mild regurgitation There is evidence of mild mitral valve stenosis with a mean gradient of 4 mmHg peak gradient 11 mmHg at a heart rate regular and 80 bpm. Tricuspid Valve Trivial tricuspid valve insufficiency. Unable to estimate RV systolic pressure due to inadequate jet, pulmonary artery pressure probably normal. However IVC is mildly dilated with normal collapsibility. Aortic Valve The aortic valve is not well visualized in the short axis view. Cannot fully determine the trileaflet structure of the aortic valve but no definitive stenosis noted. Great Vessels Normal sized aortic root. The inferior vena cava is dilated. Inferior vena cava collapse with respiration. Pericardium/Pleural No pericardial effusion. Medication Diluted definity 1.5ml given slow IV push to enhance endocardial definition. MMode/2D Measurements & Calculations LVIDd: 4.6 cm IVSd: 0.87 cm Aoroot diam: 3.1 cm LVIDs: 2.7 cm LVPWd: 0.84 cm FS: 40.5 % LVAd ap4: 25.9 cm2 LVAd ap2: 22.4 cm2 SV(MOD-sp4): 46.6 ml LVLd ap4: 7.5 cm LVLd ap2: 7.4 cm SI(MOD-sp4): 22.6 ml/m2 EDV(MOD-sp4): 72.4 ml EDV(MOD-sp2): 54.6 ml EDV(sp4-el): 75.7 ml EDV(sp2-el): 57.0 ml LVAs ap4: 13.8 cm2 LVAs ap2: 10.7 cm2 LVLs ap4: 6.4 cm LVLs ap2: 5.8 cm ESV(MOD-sp4): 25.8 ml ESV(MOD-sp2): 16.4 ml ESV(sp4-el): 25.2 ml ESV(sp2-el): 16.9 ml EF(MOD-sp4): 64.3 % EF(MOD-sp2): 70.1 % EF(sp4-el): 66.7 % SV(MOD-sp2): 38.3 ml SV(sp4-el): 50.5 ml LAdimension(2D): 4.6 cm SI(MOD-sp2): 18.5 ml/m2 Time Measurements MV dec time: 0.24 sec Doppler Measurements & Calculations MV E max dawn: 122.0 cm/sec Lat Peak E' Dawn: 8.2 cm/sec Med Peak E' Dawn: 8.2 cm/sec MV A max dawn: 158.6 cm/sec E/E' lat: 14.9 E/E' med: 14.9 MV E/A: 0.77 MV V2 max: 166.1 cm/sec MV P1/2t max dawn: 127.6 cm/sec Ao V2 max: 140.5 cm/sec MV max P.0 mmHg MV P1/2t: 67.2 msec Ao max P.9 mmHg MV V2 mean: 104.3 cm/sec Ao V2 mean: 106.0 cm/sec MV mean P.8 mmHg MV dec slope: 555.7 cm/sec2 Ao mean P.8 mmHg MV V2 VTI: 41.5 cm MVA(P1/2t): 3.3 cm2 Ao V2 VTI: 31.5 cm AV (velocity ratio): 0.61 LV V1 max: 110.6 cm/sec PA V2 max: 157.3 cm/sec LV V1 max P.9 mmHg PA V2 mean: 109.7 cm/sec LV V1 mean P.0 mmHg LV V1 mean: 83.5 cm/sec LV V1 VTI: 19.2 cm ECHO/Echo Complete W/ Contrast Interpretation Summary Normal LV size. Normal left ventricular thickness. Contrast was utilized demonstrating no segmental wall motion abnormalities and unable to assess diastolic function due to mitral annular calcification The right ventricle is normal in size, function, and thickness. Diffuse mitral valve thickening with moderate mitral annular calcifications but only mild regurgitation There is evidence of mild mitral valve stenosis with a mean gradient of 4 mmHg peak gradient 11 mmHg at a heart rate regular and 80 bpm Cannot fully determine the trileaflet structure of the aortic valve but no definitive stenosis noted Cannot assess right-sided pressures accurately, however IVC is mildly dilated with normal collapsibility Ordering Physician: Holly Lopez Referring Physician: Corby Heller Chi Performed By: Rose Marie Greenwood, ESHA, RVT 05/11/25 1612 Date _ Darren Dinh MD CC: Dr. Holly Lopez MD; Dr. Hari Miranda MD; (more content not included)... [facility] Eosinophil percentageOrdered By: Holly Lopez on 05-11-2025 Eosinophils/100 WBC (Bld) 8.9 % High 0-5 [facility] Erythrocyte Sed Rateon 05-11 SED RATE 26 mm/hr Normal 0-30 [facility] Comment on above: Performed By: #### L 101.9900, L100.0100, L501.6710, L500.2500, L501.9985 ####[facility] [address] [place], [place], [address] Erythrocyte distribution wid th ratioOrdered By: Holly Lopez on 05-11-2025 Erythrocyte distribution width (RBC) [Ratio] 15.1 % High 11.6-14.6 [facility] Erythrocyte distribution wid th standard deviationOrdered By: Hloly Lopez on 05-11-2025 Erythrocyte distribution width (RBC) [Ratio] 52.9 fl High 35.1-43.9 [facility] Erythrocyte sedimentation ra teOrdered By: Holly Lopez on 05-11-2025 ESR (Bld) [Velocity] 26 mm/h 0-30 [facility] Glomerular filtration rate ( GFR) estimation/1.73 sq m using serum, plasma, or whole bOrdered By: Holly Lopez on 05-11-2025 GFR/1.73 sq M.predicted among non-blacks MDRD (S/P/Bld) [Vol rate/Area] 50 mL/min/{1.73_m2} Low >60 [facility] Comment on above: mL/min/1.73m2 CKD-EP I Creatinine Equation (2020) [facility] deOrdered By: Hari Miranda on 05-11-2025 Glucose [Mass/Vol] 148 mg/dL High 74-106 [facility] Comment on above: MANAGEMENT OF PATIEN T CARE PER NURSING PROTOCOL Gram Stainon 05-11-2025 GS Positive Normal [facility] Comment on above: Performed By: #### M 100.2000, M100.4001, M100.3000 ####[facility] [address] [facility] [place], [place], [id number] Gram stainOrdered By: Susan Bhardwaj on 05-11-2025 Microscopic observation Gram stain Nom (Unsp spec) [facility] Hematocrit Auto (Bld) [Volum e fraction]Ordered By: Holly Lopez on 05-11-2025 Hematocrit (Bld) [Volume fraction] 27.8 % Low 37-47 [facility] Hemoglobin A1con 05-11-2025 HbA1c (Bld) [Mass fraction] 6.6 % High <=5.6 [facility] Comment on above: Result Comment: Norm al < 5.7 % Prediabetic 5.7 - 6.4 % Diabetic >or= 6.5 % Please note range changes. Performed By: #### L 101.9900, L100.0100, L501.6710, L500.2500, L501.9985 ####[facility] [address] [facility]. [place], [place], [address] Hemoglobin A1c percentageOrd ered By: Holly Lopez on 05-11-2025 HbA1c (Bld) [Mass fraction] 6.6 % High <5.7 [facility] Comment on above: Normal < 5.7 % Predi abetic 5.7 - 6.4 % Diabetic >or= 6.5 % Please note range changes. Hemoglobin measurementOrdere d By: Holly Lopez on 05-11-2025 Hemoglobin (Bld) [Mass/Vol] 8.9 g/dL Low 12.0-15.0 [facility] Immature granulocytes/100 WB C Auto (Bld)Ordered By: Holly Lopez on 05-11-2025 Immature granulocytes/100 WBC (Bld) 0.800 % 0.0-0.9 [facility] Comment on above: IG% - Immature Granu locytes (promyelocytes, myelocytes and metamyelocytes) > 1% indicates that a LEFT SHIFT is Present. Lower Ext Art Exam w/o Exerc corwin 05-11-2025 Lower Ext Art Exam w/o Exercis Normal [facility] Lower Ext No Joint W/WO Cont on 05-11-2025 Lower Ext No Joint W/WO Cont Normal [facility] MCV (mean corpuscular volume ) determinationOrdered By: Holly Lopez on 05-11-2025 MCV (RBC) [Entitic vol] 93.9 fL 81-99 [facility] MRSA Wound DNA by PCRon 04-27 MRSA DNA ASSAY Normal Negative [facility] Comment on above: Order Comment: left foot Result Comment: PT D ISCHARGED Performed By: #### L 8200.1075 ####[facility] [address] [place], [place], [address] PROBE CHECK Normal [facility] Comment on above: Order Comment: left foot Result Comment: PT D ISCHARGED Performed By: #### L 8200.1075 ####[facility] [address] [place], [address] SA DNA ASSAY Normal Negative [facility] Comment on above: Order Comment: left foot Result Comment: PT D ISCHARGED Performed By: #### L 8200.1075 ####[facility] [address] [place], [address] SPC Normal [facility] Comment on above: Order Comment: left foot Result Comment: PT D ISCHARGED Performed By: #### L 8200.1075 ####[facility] [address] [place], [place], [address] Mean corpuscular hemoglobin (MCH) determinationOrdered By: Holly Lopez on 05-11-2025 MCH (RBC) [Entitic mass] 30.1 pg 27.0-32.0 [facility] Mean corpuscular hemoglobin concentration (MCHC) determinationOrdered By: Holly Lopez on 05-11-2025 MCHC (RBC) [Mass/Vol] 32.0 g/dL 32-36 [facility] Mean platelet volume determi nationOrdered By: Holly Lopez on 05-11-2025 Platelet mean volume (Bld) [Entitic vol] 9.7 fL 6.2-12.0 [facility] Monocyte percentageOrdered B y: Holly Lopez on 05-11-2025 Monocytes/100 WBC (Bld) 6.9 % 0-10 [facility] Neutrophil percentageOrdered By: Holly Lopez on 05-11-2025 Neutrophils/100 WBC (Bld) 68.5 % 47-70 [facility] Nucleated red blood cell per centageOrdered By: Holly Lopez on 05-11-2025 Nucleated RBC/100 WBC (Bld) [Ratio] 0 % 0-5 [facility] Platelet countOrdered By: Samantha Lopez on 05-11-2025 Platelets (Bld) [#/Vol] 192 10*3/uL 150-450 [facility] Potassium measurement (mass/ volume)Ordered By: Holly Lopez on 05-11-2025 Potassium (Unsp spec) [Mass/Vol] 4.3 mmol/L 3.3-5.1 [facility] Comment on above: Hemolysis present, R esults could be affected. RBC Auto (Bld) [#/Vol]Ordere d By: Holly Lopez on 05-11-2025 RBC (Bld) [#/Vol] 2.96 10*6/uL Low 4.2-5.4 [facility] Serum creatinine measurement (mass/volume)Ordered By: Holly Lopez on 05-11-2025 Creatinine [Mass/Vol] 1.14 mg/dL 0.70-1.20 [facility] Serum glucose measurement (m ass/volume)Ordered By: Holly Lopez on 05-11-2025 Glucose [Mass/Vol] 113 mg/dL High 70-99 [facility] Serum or plasma C reactive p rotein measurement (mass/volume)Ordered By: Holly Lopez on 05-11-2025 CRP [Mass/Vol] 98.10 mg/L High 0.0-3.0 [facility] Serum or plasma calcium sarbjit urement (mass/volume)Ordered By: Holly Lopez on 05-11-2025 Calcium [Mass/Vol] 8.6 mg/dL 7.6-11.0 [facility] Serum or plasma urea nitroge n measurement (mass/volume)Ordered By: Holly Lopez on 05-11-2025 Urea nitrogen [Mass/Vol] 31 mg/dL High 4-19 [facility] Serum or plasma uric acid me asurement (mass/volume)Ordered By: Luis Bhardwaj on 05-11-2025 Urate [Mass/Vol] 7.9 mg/dL High 2.6-6.0 [facility] Comment on above: The drugs N-Acetylcy steine and Metamizole may falsely depress this assay. Sodium levelOrdered By: Shady Lopez on 05-11-2025 Sodium [Moles/Vol] 137 mmol/L 133-145 [facility] Uric Acidon 05-11-2025 URIC 7.9 mg/dL High 2.6-6.0 [facility] Comment on above: Result Comment: The drugs N-Acetylcysteine and Metamizole may falselydepress this assay. Performed By: #### L 501.1400 ####[facility] [address] [place], [address] White blood cell (WBC) count Ordered By: Holly Lopez on 05-11-2025 WBC (Bld) [#/Vol] 11.0 10*3/uL 4.4-11.0 [facility] Absolute lymphocyte countOrd ered By: Crow Crabtree on 05-10-2025 Lymphocytes Auto (Unsp spec) [#/Vol] 2.02 10*3/uL 0.83-4.51 [facility] Absolute neutrophil countOrd ered By: Crow Crabtree on 05-10-2025 Neutrophils (Bld) [#/Vol] 7.9 10*3/uL High 2.0-7.7 [facility] Anion gap in Serum or Plasma Ordered By: Crow Crabtree on 05-10-2025 Anion gap [Moles/Vol] 14 mmol/L 5-15 [facility] Automated lymphocyte count a s percentage of total leukocytesOrdered By: Crow Crabtree on 05-10-2025 Lymphocytes/100 WBC Auto (Unsp spec) 17.4 % Low 19-41 [facility] BUN/creatinine ratioOrdered By: Crow Crabtree on 05-10-2025 Urea nitrogen/Creatinine [Mass ratio] 29.8 mg/mg High 10- [facility] Basic Metabolic Profile (BMP )on 05-10-2025 BUN/CRE 29.8 RATIO High 10- [facility] Comment on above: Performed By: #### L 100.0100, L501.9520, L101.9900, L500.2500, L501.6710 ####[facility] [address] [place], [address] Calcium [Mass/Vol] 9.6 mg/dL Normal 7.6-11.0 [facility] Comment on above: Performed By: #### L 100.0100, L501.9520, L101.9900, L500.2500, L501.6710 ####[facility] [address] [place], [address] Chloride [Moles/Vol] 101 mmol/L Normal 98-108 [facility] Comment on above: Performed By: #### L 100.0100, L501.9520, L101.9900, L500.2500, L501.6710 ####[facility] [address] [place], [address] CO2 [Moles/Vol] 23.5 mmol/L Normal 21.0-32.0 [facility] Comment on above: Performed By: #### L 100.0100, L501.9520, L101.9900, L500.2500, L501.6710 ####[facility] [address] [place], [address] Creatinine [Mass/Vol] 1.01 mg/dL Normal 0.70-1.20 [facility] Comment on above: Performed By: #### L 100.0100, L501.9520, L101.9900, L500.2500, L501.6710 ####[facility] [address] [place], [address] ECRCL 58.10 ml/min Normal 50-250 [facility] Comment on above: Performed By: #### L 100.0100, L501.9520, L101.9900, L500.2500, L501.6710 ####[facility] [address] [place], [address] GAP 14 Normal 5-15 [facility] Comment on above: Performed By: #### L 100.0100, L501.9520, L101.9900, L500.2500, L501.6710 ####[facility] [address] [place], [address] GFR/1.73 sq M.predicted among non-blacks MDRD (S/P/Bld) [Vol rate/Area] 58 mL/min/{1.73_m2} Low >60 [facility] Comment on above: Result Comment: mL/m in/1.73m2 CKD-EPI Creatinine Equation (2020) Performed By: #### L 100.0100, L501.9520, L101.9900, L500.2500, L501.6710 ####[facility] [address] [place], [address] Glucose [Mass/Vol] 152 mg/dL High 70-99 [facility] Comment on above: Performed By: #### L 100.0100, L501.9520, L101.9900, L500.2500, L501.6710 ####[facility] [address] [place], [address] Potassium [Moles/Vol] 3.9 mmol/L Normal 3.3-5.1 [facility] Comment on above: Performed By: #### L 100.0100, L501.9520, L101.9900, L500.2500, L501.6710 ####[facility] [address] [place], [address] Sodium [Moles/Vol] 138 mmol/L Normal 133-145 [facility] Comment on above: Performed By: #### L 100.0100, L501.9520, L101.9900, L500.2500, L501.6710 ####[facility] [address] [place], [address] Urea nitrogen [Mass/Vol] 30 mg/dL High 4-19 [facility] Comment on above: Performed By: #### L 100.0100, L501.9520, L101.9900, L500.2500, L501.6710 ####[facility] [address] [place], [address] Basophil percentageOrdered B y: Crow Crabtree on 05-10-2025 Basophils/100 WBC (Bld) 0.3 % 0-1 [facility] Bedside Glucoseon 05-10-2025 FINGERSTICK GLU 170 mg/dL High 74-106 [facility] Comment on above: Result Comment: MAHAD BUCKLEY OF PATIENT CARE PER NURSING PROTOCOL Performed By: #### L 501.080 ####[facility] [address] [place], [address] Blood manual differential co mment interpretation (narrative result)Ordered By: Crow Crabtree on 05-10-2025 Manual differential comment Olaf (Bld) [Interp] SCANNED [facility] CBC W/Diff, Automatedon 04-27 PLT EST ADEQUATE Normal ADEQ [facility] Comment on above: Performed By: #### L 100.0100, L501.9520, L101.9900, L500.2500, L501.6710 ####[facility] [address] [place], [address] SMEAR COMMENT SCANNED Normal [facility] Comment on above: Performed By: #### L 100.0100, L501.9520, L101.9900, L500.2500, L501.6710 ####[facility] [address] [place], [address] CRPon 05-10-2025 C-REACTIVE PROT 85.00 mg/L High 0.0-3.0 [facility] Comment on above: Performed By: #### L 100.0100, L501.9520, L101.9900, L500.2500, L501.6710 ####[facility] [address] [place], [place], [id number] Carbon dioxide, total [Moles /volume] in Central venous bloodOrdered By: Crow Crabtree on 05-10-2025 CO2 [Moles/Vol] 23.5 mmol/L 21.0-32.0 [facility] Chloride assayOrdered By: Murphy Crabtree on 05-10-2025 Chloride [Moles/Vol] 101 mmol/L 98-108 [facility] Echo Complete W/ Contraston 05-10-2025 Echo Complete W/ Contrast Normal [facility] Emergency Department Summary on 05-10-2025 Emergency Department Summary Normal [facility] Eosinophil percentageOrdered By: Crow Crabtree on 05-10-2025 Eosinophils/100 WBC (Bld) 6.7 % High 0-5 [facility] Erythrocyte Sed Rateon 05-10 SED RATE 37 mm/hr High 0-30 [facility] Comment on above: Performed By: #### L 100.0100, L501.9520, L101.9900, L500.2500, L501.6710 ####[facility] [address] [place], [place], [id number] Erythrocyte distribution wid th ratioOrdered By: Crow Crabtree on 05-10-2025 Erythrocyte distribution width (RBC) [Ratio] 15.2 % High 11.6-14.6 [facility] Erythrocyte distribution wid th standard deviationOrdered By: Crow Crabtree on 05-10-2025 Erythrocyte distribution width (RBC) [Ratio] 52.8 fl High 35.1-43.9 [facility] Erythrocyte sedimentation ra teOrdered By: Crow Crabtree on 05-10-2025 ESR (Bld) [Velocity] 37 mm/h High 0-30 [facility] Foot min 3 Viewson 5 Foot min 3 Views Normal [facility] Glomerular filtration rate ( GFR) estimation/1.73 sq m using serum, plasma, or whole bOrdered By: Crow Crabtree on 05-10-2025 GFR/1.73 sq M.predicted among non-blacks MDRD (S/P/Bld) [Vol rate/Area] 58 mL/min/{1.73_m2} Low >60 [facility] Comment on above: mL/min/1.73m2 CKD-EP I Creatinine Equation (2020) H AND P Exam - Hospitaliston 05-10-2025 H&P Exam - Hospitalist Normal [facility] Hematocrit Auto (Bld) [Volum e fraction]Ordered By: Crow Crabtree on 05-10-2025 Hematocrit (Bld) [Volume fraction] 33.8 % Low 37-47 [facility] Hemoglobin measurementOrdere d By: Crow Crabtree on 05-10-2025 Hemoglobin (Bld) [Mass/Vol] 10.9 g/dL Low 12.0-15.0 [facility] Immature granulocytes/100 WB C Auto (Bld)Ordered By: Crow Crabtree on 05-10-2025 Immature granulocytes/100 WBC (Bld) 0.800 % 0.0-0.9 [facility] Comment on above: IG% - Immature Granu locytes (promyelocytes, myelocytes and metamyelocytes) > 1% indicates that a LEFT SHIFT is Present. Lactic Acidon 05-10-2025 Lactate [Moles/Vol] 1.7 mmol/L Normal 0.0-2.0 [facility] Comment on above: Order Comment: Y Performed By: #### L 503.6005 ####[facility] [address] [place], [place], [address] Lactic acid measurementOrder ed By: Crow Crabtree on 05-10-2025 Lactate [Moles/Vol] 1.7 mmol/L 0.0-2.0 [facility] MCV (mean corpuscular volume ) determinationOrdered By: Crow Crabtree on 05-10-2025 MCV (RBC) [Entitic vol] 94.4 fL 81-99 [facility] Mean corpuscular hemoglobin (MCH) determinationOrdered By: Crow Crabtree on 05-10-2025 MCH (RBC) [Entitic mass] 30.4 pg 27.0-32.0 [facility] Mean corpuscular hemoglobin concentration (MCHC) determinationOrdered By: Crow Crabtree on 05-10-2025 MCHC (RBC) [Mass/Vol] 32.2 g/dL 32-36 [facility] Mean platelet volume determi nationOrdered By: Crow Le on 05-10-2025 Platelet mean volume (Bld) [Entitic vol] 10.2 fL 6.2-12.0 [facility] Monocyte percentageOrdered B y: Crow Crabtree on 05-10-2025 Monocytes/100 WBC (Bld) 6.7 % 0-10 [facility] Neutrophil percentageOrdered By: Crow Crabtree on 05-10-2025 Neutrophils/100 WBC (Bld) 68.1 % 47-70 [facility] Nucleated red blood cell per centageOrdered By: Crow Crabtree on 05-10-2025 Nucleated RBC/100 WBC (Bld) [Ratio] 0 % 0-5 [facility] Platelet countOrdered By: Murphy perales Thuy on 05-10-2025 Platelets (Bld) [#/Vol] 210 10*3/uL 150-450 [facility] Platelet estimateOrdered By: Crow Crabtree on 05-10-2025 Platelets LM Ql (Bld) ADEQUATE ADEQ [facility] Potassium measurement (mass/ volume)Ordered By: Crow Crabtree on 05-10-2025 Potassium (Unsp spec) [Mass/Vol] 3.9 mmol/L 3.3-5.1 [facility] RBC Auto (Bld) [#/Vol]Ordere d By: Crow Crabtree on 05-10-2025 RBC (Bld) [#/Vol] 3.58 10*6/uL Low 4.2-5.4 [facility] Serum creatinine measurement (mass/volume)Ordered By: Crow Crabtree on 05-10-2025 Creatinine [Mass/Vol] 1.01 mg/dL 0.70-1.20 [facility] Serum glucose measurement (m ass/volume)Ordered By: Crow Crabtree on 05-10-2025 Glucose [Mass/Vol] 152 mg/dL High 70-99 [facility] Serum or plasma C reactive p rotein measurement (mass/volume)Ordered By: Crow Crabtree on 05-10-2025 CRP [Mass/Vol] 85.00 mg/L High 0.0-3.0 [facility] Serum or plasma calcium sarbjit urement (mass/volume)Ordered By: Crow Crabtree on 05-10-2025 Calcium [Mass/Vol] 9.6 mg/dL 7.6-11.0 [facility] Serum or plasma urea nitroge n measurement (mass/volume)Ordered By: Crow Crabtree on 05-10-2025 Urea nitrogen [Mass/Vol] 30 mg/dL High 4-19 [facility] Sodium levelOrdered By: Crow Crabtree on 05-10-2025 Sodium [Moles/Vol] 138 mmol/L 133-145 [facility] TSH DL <= 0.005 mIU/L QnOrde red By: Crow Crabtree on 05-10-2025 TSH Qn 2.810 uIU/mL 0.300-4.20 0 [facility] Thyroid Stim Hormone (TSH)on 05-10-2025 TSH 2.810 uIU/mL Normal 0.300-4.20 0 [facility] Comment on above: Performed By: #### L 100.0100, L501.9520, L101.9900, L500.2500, L501.6710 ####[facility] [address] [place], [place], [id number] White blood cell (WBC) count Ordered By: Crow Crabtree on 05-10-2025 WBC (Bld) [#/Vol] 11.6 10*3/uL High 4.4-11.0 [facility] Absolute lymphocyte countOrd ered By: Corby Heller on 05-03-2025 Lymphocytes Auto (Unsp spec) [#/Vol] 2.15 10*3/uL 0.83-4.51 [facility] Absolute neutrophil countOrd ered By: Corby Heller on 05-03-2025 Neutrophils (Bld) [#/Vol] 4.6 10*3/uL 2.0-7.7 [facility] Anion gap in Serum or Plasma Ordered By: Corby Heller on 05-03-2025 Anion gap [Moles/Vol] 13 mmol/L 5-15 [facility] Automated lymphocyte count a s percentage of total leukocytesOrdered By: Corby Heller on 05-03-2025 Lymphocytes/100 WBC Auto (Unsp spec) 28.6 % 19-41 [facility] BUN/creatinine ratioOrdered By: Corby Heller on 05-03-2025 Urea nitrogen/Creatinine [Mass ratio] 32.0 mg/mg High 10- [facility] Basophil percentageOrdered B y: Corby Heller on 05-03-2025 Basophils/100 WBC (Bld) 0.3 % 0-1 [facility] Bilirubin directOrdered By: Bella Prieto on 05-03-2025 Bilirubin.direct [Mass/Vol] 0.15 mg/dL 0.00-0.30 [facility] Bilirubin, Directon 05-03-20 25 Bilirubin.direct [Mass/Vol] 0.15 mg/dL Normal 0.00-0.30 [facility] Comment on above: Performed By: #### L 501.0900, L501.4700 ####[facility] [address] [place], [address] Bilirubin, totalOrdered By: Corby Arron on 05-03-2025 Bilirubin [Mass/Vol] 0.33 mg/dL 0.00-1.30 [facility] CBC W/Diff, Automatedon Absolute Lymph 2.15 X10 3/uL Normal 0.83-4.51 [facility] Comment on above: Performed By: #### L 501.9520, L502.0250, L100.0100, L500.4050, L506.1001 ####[facility] [address] [place], [address] Absolute Neut 4.6 X10 3/uL Normal 2.0-7.7 [facility] Comment on above: Performed By: #### L 501.9520, L502.0250, L100.0100, L500.4050, L506.1001 ####[facility] [address] [place], [address] Basophils/100 WBC (Bld) 0.3 % Normal 0-1 [facility] Comment on above: Performed By: #### L 501.9520, L502.0250, L100.0100, L500.4050, L506.1001 ####[facility] [address] [place], [address] Eosinophils/100 WBC (Bld) 3.9 % Normal 0-5 [facility] Comment on above: Performed By: #### L 501.9520, L502.0250, L100.0100, L500.4050, L506.1001 ####[facility] [address] [place], [address] Erythrocyte distribution width (RBC) [Ratio] 15.4 % High 11.6-14.6 [facility] Comment on above: Performed By: #### L 501.9520, L502.0250, L100.0100, L500.4050, L506.1001 ####[facility] [address] [place], [address] Hematocrit (Bld) [Volume fraction] 30.8 % Low 37-47 [facility] Comment on above: Performed By: #### L 501.9520, L502.0250, L100.0100, L500.4050, L506.1001 ####[facility] [address] [place], [address] Hemoglobin (Bld) [Mass/Vol] 9.8 g/dL Low 12.0-15.0 [facility] Comment on above: Performed By: #### L 501.9520, L502.0250, L100.0100, L500.4050, L506.1001 ####[facility] [address] [place], [address] IG% 0.300 Normal 0.0-0.9 [facility] Comment on above: Result Comment: IG% - Immature Granulocytes (promyelocytes, myelocytes andmetamyelocytes) > 1% indicates that a LEFT SHIFT is Present. Performed By: #### L 501.9520, L502.0250, L100.0100, L500.4050, L506.1001 ####[facility] [address] [place], [address] Lymphocytes/100 WBC (Bld) 28.6 % Normal 19-41 [facility] Comment on above: Performed By: #### L 501.9520, L502.0250, L100.0100, L500.4050, L506.1001 ####[facility] [address] [place], [address] MCH (RBC) [Entitic mass] 30.3 pg Normal 27.0-32.0 [facility] Comment on above: Performed By: #### L 501.9520, L502.0250, L100.0100, L500.4050, L506.1001 ####[facility] [address] [place], [address] MCHC (RBC) [Mass/Vol] 31.8 g/dL Low 32-36 [facility] Comment on above: Performed By: #### L 501.9520, L502.0250, L100.0100, L500.4050, L506.1001 ####[facility] [address] [place], [address] MCV (RBC) [Entitic vol] 95.4 fL Normal 81-99 [facility] Comment on above: Performed By: #### L 501.9520, L502.0250, L100.0100, L500.4050, L506.1001 ####[facility] [address] [place], [address] Monocytes/100 WBC (Bld) 6.5 % Normal 0-10 [facility] Comment on above: Performed By: #### L 501.9520, L502.0250, L100.0100, L500.4050, L506.1001 ####[facility] [address] [place], [address] Neutrophils/100 WBC (Bld) 60.4 % Normal 47-70 [facility] Comment on above: Performed By: #### L 501.9520, L502.0250, L100.0100, L500.4050, L506.1001 ####[facility] [address] [place], [address] Nucleated RBC (Bld) [#/Vol] 0 10*3/uL Normal 0-5 [facility] Comment on above: Performed By: #### L 501.9520, L502.0250, L100.0100, L500.4050, L506.1001 ####[facility] [address] [place], [address] Platelet mean volume (Bld) [Entitic vol] 10.7 fL Normal 6.2-12.0 [facility] Comment on above: Performed By: #### L 501.9520, L502.0250, L100.0100, L500.4050, L506.1001 ####[facility] [address] [place], [address] Platelets (Bld) [#/Vol] 201 10*3/uL Normal 150-450 [facility] Comment on above: Performed By: #### L 501.9520, L502.0250, L100.0100, L500.4050, L506.1001 ####[facility] [address] [place], [address] RBC (Bld) [#/Vol] 3.23 10*6/uL Low 4.2-5.4 [facility] Comment on above: Performed By: #### L 501.9520, L502.0250, L100.0100, L500.4050, L506.1001 ####[facility] [address] [place], [address] RDW SD 53.3 fl High 35.1-43.9 [facility] Comment on above: Performed By: #### L 501.9520, L502.0250, L100.0100, L500.4050, L506.1001 ####[facility] [address] [place], [address] WBC (Bld) [#/Vol] 7.5 10*3/uL Normal 4.4-11.0 [facility] Comment on above: Performed By: #### L 501.9520, L502.0250, L100.0100, L500.4050, L506.1001 ####[facility] [address] [place], [address] Carbon dioxide, total [Moles /volume] in Central venous bloodOrdered By: Corby Heller on 05-03-2025 CO2 [Moles/Vol] 20.2 mmol/L Low 21.0-32.0 [facility] Chloride assayOrdered By: Ryder Heller on 05-03-2025 Chloride [Moles/Vol] 106 mmol/L 98-108 [facility] Comprehensive Metabolic Prof ilon 05-03-2025 Albumin [Mass/Vol] 3.9 g/dL Normal 3.4-4.8 [facility] Comment on above: Order Comment: CC:CM P TO DR. TENZIN PRIETO Performed By: #### L 501.9520, L502.0250, L100.0100, L500.4050, L506.1001 ####[facility] [address] [place], [address] Albumin/Globulin [Mass ratio] 1.1 {ratio} Normal 0.9-2.4 [facility] Comment on above: Order Comment: CC:CM P TO DR. TENZIN PRIETO Performed By: #### L 501.9520, L502.0250, L100.0100, L500.4050, L506.1001 ####[facility] [address] [place], [address] ALK PHOS 89 U/L Normal 35-104 [facility] Comment on above: Order Comment: CC:CM P TO DR. TENZIN PRIETO Performed By: #### L 501.9520, L502.0250, L100.0100, L500.4050, L506.1001 ####[facility] [address] [place], [address] ALT [Catalytic activity/Vol] 9 U/L Normal <=34 [facility] Comment on above: Order Comment: CC:CM P TO DR. TENZIN PRIETO Performed By: #### L 501.9520, L502.0250, L100.0100, L500.4050, L506.1001 ####[facility] [address] [place], [address] AST [Catalytic activity/Vol] 19 U/L Normal <=31 [facility] Comment on above: Order Comment: CC:CM P TO DR. TENZIN PRIETO Performed By: #### L 501.9520, L502.0250, L100.0100, L500.4050, L506.1001 ####[facility] [address] [place], [address] Bilirubin [Mass/Vol] 0.33 mg/dL Normal 0.00-1.30 [facility] Comment on above: Order Comment: CC:CM P TO DR. TENZIN PRIETO Performed By: #### L 501.9520, L502.0250, L100.0100, L500.4050, L506.1001 ####[facility] [address] [place], [address] BUN/CRE 32.0 RATIO High 10-20 [facility] Comment on above: Order Comment: CC:CM P TO DR. TENZIN PRIETO Performed By: #### L 501.9520, L502.0250, L100.0100, L500.4050, L506.1001 ####[facility] [address] [place], [address] Calcium [Mass/Vol] 9.2 mg/dL Normal 7.6-11.0 [facility] Comment on above: Order Comment: CC:CM P TO DR. TENZIN PRIETO Performed By: #### L 501.9520, L502.0250, L100.0100, L500.4050, L506.1001 ####[facility] [address] [place], [address] Chloride [Moles/Vol] 106 mmol/L Normal 98-108 [facility] Comment on above: Order Comment: CC:CM P TO DR. TENZIN PRIETO Performed By: #### L 501.9520, L502.0250, L100.0100, L500.4050, L506.1001 ####[facility] [address] [place], [address] CO2 [Moles/Vol] 20.2 mmol/L Low 21.0-32.0 [facility] Comment on above: Order Comment: CC:CM P TO DR. TENZIN PRIETO Performed By: #### L 501.9520, L502.0250, L100.0100, L500.4050, L506.1001 ####[facility] [address] [place], [address] Creatinine [Mass/Vol] 1.10 mg/dL Normal 0.70-1.20 [facility] Comment on above: Order Comment: CC:CM P TO DR. TENZIN PRIETO Performed By: #### L 501.9520, L502.0250, L100.0100, L500.4050, L506.1001 ####[facility] [address] [place], [address] GAP 13 Normal 5-15 [facility] Comment on above: Order Comment: CC:CM P TO DR. TENZIN PRIETO Performed By: #### L 501.9520, L502.0250, L100.0100, L500.4050, L506.1001 ####[facility] [address] [place], [address] GFR/1.73 sq M.predicted among non-blacks MDRD (S/P/Bld) [Vol rate/Area] 52 mL/min/{1.73_m2} Low >60 [facility] Comment on above: Order Comment: CC:CM P TO DR. TENZIN PRIETO Result Comment: mL/m in/1.73m2 CKD-EPI Creatinine Equation (2020) Performed By: #### L 501.9520, L502.0250, L100.0100, L500.4050, L506.1001 ####[facility] [address] [place], [address] Globulin (S) [Mass/Vol] 3.4 g/dL Normal 2.2-4.2 [facility] Comment on above: Order Comment: CC:CM P TO DR. TENZIN PRIETO Performed By: #### L 501.9520, L502.0250, L100.0100, L500.4050, L506.1001 ####[facility] [address] [place], [address] Glucose [Mass/Vol] 178 mg/dL High 70-99 [facility] Comment on above: Order Comment: CC:CM P TO DR. TENZIN PRIETO Performed By: #### L 501.9520, L502.0250, L100.0100, L500.4050, L506.1001 ####[facility] [address] [place], [address] Potassium [Moles/Vol] 4.6 mmol/L Normal 3.3-5.1 [facility] Comment on above: Order Comment: CC:CM P TO DR. TENZIN PRIETO Performed By: #### L 501.9520, L502.0250, L100.0100, L500.4050, L506.1001 ####[facility] [address] [place], [address] Sodium [Moles/Vol] 139 mmol/L Normal 133-145 [facility] Comment on above: Order Comment: CC:CM P TO DR. TENZIN PRIETO Performed By: #### L 501.9520, L502.0250, L100.0100, L500.4050, L506.1001 ####[facility] [address] [place], [address] T PROT 7.3 g/dL Normal 5.9-8.4 [facility] Comment on above: Order Comment: CC:CM P TO DR. TENZIN PRIETO Performed By: #### L 501.9520, L502.0250, L100.0100, L500.4050, L506.1001 ####[facility] [address] [place], [address] Urea nitrogen [Mass/Vol] 35 mg/dL High 4-19 [facility] Comment on above: Order Comment: CC:CM P TO DR. TENZIN PRIETO Performed By: #### L 501.9520, L502.0250, L100.0100, L500.4050, L506.1001 ####[facility] [address] [place], [address] Eosinophil percentageOrdered By: Corby Heller on 05-03-2025 Eosinophils/100 WBC (Bld) 3.9 % 0-5 [facility] Erythrocyte distribution wid th ratioOrdered By: Corby Heller on 05-03-2025 Erythrocyte distribution width (RBC) [Ratio] 15.4 % High 11.6-14.6 [facility] Erythrocyte distribution wid th standard deviationOrdered By: Corby Heller on 05-03-2025 Erythrocyte distribution width (RBC) [Ratio] 53.3 fl High 35.1-43.9 [facility] Glomerular filtration rate ( GFR) estimation/1.73 sq m using serum, plasma, or whole bOrdered By: Corby Heller on 05-03-2025 GFR/1.73 sq M.predicted among non-blacks MDRD (S/P/Bld) [Vol rate/Area] 52 mL/min/{1.73_m2} Low >60 [facility] Comment on above: mL/min/1.73m2 CKD-EP I Creatinine Equation (2020) Hematocrit Auto (Bld) [Volum e fraction]Ordered By: Corby Heller on 05-03-2025 Hematocrit (Bld) [Volume fraction] 30.8 % Low 37-47 [facility] Hemoglobin measurementOrdere d By: Corby Heller on 05-03-2025 Hemoglobin (Bld) [Mass/Vol] 9.8 g/dL Low 12.0-15.0 [facility] Immature granulocytes/100 WB C Auto (Bld)Ordered By: Corby Heller 05-03-2025 Immature granulocytes/100 WBC (Bld) 0.300 % 0.0-0.9 [facility] Comment on above: IG% - Immature Granu locytes (promyelocytes, myelocytes and metamyelocytes) > 1% indicates that a LEFT SHIFT is Present. Laboratory - Chemistry and C hemistry - challengeOrdered By: Corby Heller on 05-03-2025 AST [Catalytic activity/Vol] 19 U/L <32 [facility] MCV (mean corpuscular volume ) determinationOrdered By: Corby Heller 05-03-2025 MCV (RBC) [Entitic vol] 95.4 fL 81-99 [facility] Mean corpuscular hemoglobin (MCH) determinationOrdered By: Corby Heller 05-03-2025 MCH (RBC) [Entitic mass] 30.3 pg 27.0-32.0 [facility] Mean corpuscular hemoglobin concentration (MCHC) determinationOrdered By: Corby Heller 05-03-2025 MCHC (RBC) [Mass/Vol] 31.8 g/dL Low 32-36 [facility] Mean platelet volume determi nationOrdered By: Corby Heller 05-03-2025 Platelet mean volume (Bld) [Entitic vol] 10.7 fL 6.2-12.0 [facility] Microalb:Creat Ratio,Random URon 05-03-2025 Creatinine [Mass/Vol] 120.00 mg/dL Normal 28.00- 217. 00 [facility] Comment on above: Performed By: #### L 501.9520, L502.0250, L100.0100, L500.4050, L506.1001 ####[facility] [address] [place], [place], [address] MALB:CREAT 158.3 mg/g CRE High <30 mg/g CRE [facility] Comment on above: Performed By: #### L 501.9520, L502.0250, L100.0100, L500.4050, L506.1001 ####[facility] [address] [place], [place], [address] MICROALBUMIN,UR 190.0 mg/L Normal <20 mg/L [facility] Comment on above: Performed By: #### L 501.9520, L502.0250, L100.0100, L500.4050, L506.1001 ####[facility] [address] [place], [place], [id number] Monocyte percentageOrdered B y: Corby Heller on 05-03-2025 Monocytes/100 WBC (Bld) 6.5 % 0-10 [facility] Neutrophil percentageOrdered By: Corby Heller on 05-03-2025 Neutrophils/100 WBC (Bld) 60.4 % 47-70 [facility] Nucleated red blood cell per centageOrdered By: Corby Heller on 05-03-2025 Nucleated RBC/100 WBC (Bld) [Ratio] 0 % 0-5 [facility] Platelet countOrdered By: Ryder Heller on 05-03-2025 Platelets (Bld) [#/Vol] 201 10*3/uL 150-450 [facility] Potassium measurement (mass/ volume)Ordered By: Corby Heller on 05-03-2025 Potassium (Unsp spec) [Mass/Vol] 4.6 mmol/L 3.3-5.1 [facility] Protein+Creatinine Ratio,Uri neon 05-03-2025 PROT:CRE RATIO 452 mg/g CRE High 0-200 [facility] Comment on above: Performed By: #### L 501.0900, L501.4700 ####[facility] [address] [place], [address] Protein (U) [Mass/Vol] 52.0 mg/dL High 0.0-12.0 [facility] Comment on above: Performed By: #### L 501.0900, L501.4700 ####[facility] [address] [place], [address] UR CREAT 115.00 mg/dL Normal 28.00-217. 00 [facility] Comment on above: Performed By: #### L 501.0900, L501.4700 ####[facility] [address] [place], [address] RBC Auto (Bld) [#/Vol]Ordere d By: Corby Heller on 05-03-2025 RBC (Bld) [#/Vol] 3.23 10*6/uL Low 4.2-5.4 [facility] Random urine creatinine sarbjit urement (mass/volume)Ordered By: Corby Heller on 05-03-2025 Creatinine Unsp time (U) [Mass/Vol] 120.00 mg/dL 28.00-217. 00 [facility] Serum creatinine measurement (mass/volume)Ordered By: Corby Heller on 05-03-2025 Creatinine [Mass/Vol] 1.10 mg/dL 0.70-1.20 [facility] Serum globulin measurementOr dered By: Corby Heller on 05-03-2025 Globulin (S) [Mass/Vol] 3.4 g/dL 2.2-4.2 [facility] Serum glucose measurement (m ass/volume)Ordered By: Corby Heller on 05-03-2025 Glucose [Mass/Vol] 178 mg/dL High 70-99 [facility] Serum or plasma alanine saldana otransferase (ALT) measurementOrdered By: Corby Heller on 05-03-2025 ALT [Catalytic activity/Vol] 9 U/L <35 [facility] Serum or plasma albumin sarbjit urement (mass/volume)Ordered By: Corby Heller on 05-03-2025 Albumin [Mass/Vol] 3.9 g/dL 3.4-4.8 [facility] Serum or plasma albumin/glob ulin mass ratioOrdered By: Corby Heller on 05-03-2025 Albumin/Globulin [Mass ratio] 1.1 {ratio} 0.9-2.4 [facility] Serum or plasma alkaline louie sphatase measurementOrdered By: Corby Heller on 05-03-2025 ALP [Catalytic activity/Vol] 89 U/L 35-104 [facility] Serum or plasma calcium sarbjit urement (mass/volume)Ordered By: Corby Heller on 05-03-2025 Calcium [Mass/Vol] 9.2 mg/dL 7.6-11.0 [facility] Serum or plasma urea nitroge n measurement (mass/volume)Ordered By: Corby Heller on 05-03-2025 Urea nitrogen [Mass/Vol] 35 mg/dL High 4-19 [facility] Sodium levelOrdered By: Corby Heller 05-03-2025 Sodium [Moles/Vol] 139 mmol/L 133-145 [facility] TSH DL <= 0.005 mIU/L QnOrde red By: Corby Heller on 05-03-2025 TSH Qn 2.480 uIU/mL 0.300-4.20 0 [facility] Thyroid Stim Hormone (TSH)on 05-03-2025 TSH 2.480 uIU/mL Normal 0.300-4.20 0 [facility] Comment on above: Order Comment: CC:MONTY P TO DR. TENZIN PRIETO Performed By: #### L 501.9520, L502.0250, L100.0100, L500.4050, L506.1001 ####[facility] [address] [facility] [place], [address] Total proteinOrdered By: Corby Heller 05-03-2025 Protein [Mass/Vol] 7.3 g/dL 5.9-8.4 [facility] Urine albumin measurement wi detection limit of 20 mg/L or less (mass/volume)Ordered By: Corby Heller on 05-03-2025 Albumin DL <= 20 mg/L (U) [Mass/Vol] 190.0 mg/L <20 mg/L [facility] Urine protein measurement (m ass/volume)Ordered By: Bella Prieto on 05-03-2025 Protein (U) [Mass/Vol] 52.0 mg/dL High 0.0-12.0 [facility] Urine protein/creatinine mas s ratioOrdered By: Bella Prieto on 05-03-2025 Protein/Creatinine (U) [Mass ratio] 452 mg/g CRE High 0-200 [facility] Vitamin D,25 Hydroxyon 05-03 Vitamin D 25-OH 48.0 ng/mL Normal 30-100 [facility] Comment on above: Order Comment: CC:MONTY P TO DR. TENZIN PRIETO Result Comment: Danelle min D StatusDeficiency: <20 ng/mL (50nmol/L)Insufficiency: 20-30 ng/mL (50-75 nmol/L)Sufficiency: 30-100 ng/mL (75-250 nmol/L)Toxicity: >100 ng/mL (>250 nmol/L) Performed By: #### L 501.9520, L502.0250, L100.0100, L500.4050, L506.1001 ####[facility] [address] [place], [address] White blood cell (WBC) count Ordered By: Corby Heller on 05-03-2025 WBC (Bld) [#/Vol] 7.5 10*3/uL 4.4-11.0 [facility] Microalb:Creat Ratio,Random URon 03-16-2025 MALB:CREAT 142.4 mg/g CRE Normal [facility] Comment on above: Result Comment: AMENDED REPORT 03/16/25 0832 MALB:CREAT previously reported as: 1424.5 mg/g CRE Performed By: #### L 502.0250 ####[facility] [address] [place], [address] Bone density reportOrdered B y: Slade Boyd on 02-16-2025 Study report Skeletal system DXA [facility] Imaging Services [address] [place] [place] [address] Dexa Bone Density/Append Skel MR#: [id number] Acct: [id number] Name: EDUAR CABRERA Rep #: [id number] : 1950 F 75 From: Marques Boyd MD PCP: Dr. Corby Heller MD Status: REG C FRED Study:Dexa Bone Density/Append Skel Date of E xam: 02/15/25 Exam# [id number] Ordering Dr: Corby Heller MD PROCEDURE: DEXA BONE DENSITY/APPEND SKEL 02/15/2025 REASON FOR EXAM: F, age 75 y/o . Postmenopausal. TECHNIQUE: DXA scan of sites with data reported below. [facility] COMPARISON: None FINDINGS: BMD and [...] Recommend follow-up as clinically warranted. Reading Location: [place] [address] CC: Dr. Corby Heller MD ~ Lace Winder: Signed [facility] Breast imaging reportOrdered By: Nan Junior on 02-16-2025 Study report [facility] Imaging Services [address] [place] [address] SCRN MAMM (CAD)W/MARBIN BILAT MR#: [id number] Acct: [id number] Name: EDUAR CABRERA Rep #: [id number] : 1950 F 75 From: Jesse Blackwell MD PCP: Dr. Cobry Heller MD Status: JOSE A IBARRA Study:SCRN MAMM (CAD)W/MARBIN BILAT Date of Exa m: 02/15/25 Exam# [id number] Ordering Dr: Corby Heller MD ADDENDUM by Dr. Nan Blackwell MD on 02/16/25 at 2052 Please note that prior breast examinations are now available for comparison. Reading Location: [facility] 02/16/252053 Date cc: Dr. Corby Heller MD [...] BI-RADS category 2 benign findings Reading Location: [facility] 02/16/252034 Date cc: Dr. Corby Heller MD [...] be mailed to the patient. Reading Location: [id number] CC: Dr. Corby Heller MD ~ Lace Winder: Signed [facility] Dexa Bone Density/Append Ske latonya 02-15-2025 Dexa Bone Density/Append Skel Normal [facility] SCRN MAMM (CAD)W/MARBIN BILATo n 02-15-2025 SCRN MAMM (CAD)W/MARBIN BILAT Normal [facility] Absolute lymphocyte countOrd ered By: Corby Heller on 01-30-2025 Lymphocytes Auto (Unsp spec) [#/Vol] 1.90 10*3/uL 0.83-4.51 [facility] Absolute neutrophil countOrd ered By: Corby Heller on 01-30-2025 Neutrophils (Bld) [#/Vol] 6.0 10*3/uL 2.0-7.7 [facility] Anion gap in Serum or Plasma Ordered By: Corby Heller on 01-30-2025 Anion gap [Moles/Vol] 10 mmol/L 5-15 [facility] Automated lymphocyte count a s percentage of total leukocytesOrdered By: Corby Heller on 01-30-2025 Lymphocytes/100 WBC Auto (Unsp spec) 21.1 % 19-41 [facility] BUN/creatinine ratioOrdered By: Corby Heller on 01-30-2025 Urea nitrogen/Creatinine [Mass ratio] 22.9 mg/mg High 10-20 [facility] Basophil percentageOrdered B y: Corby Heller on 01-30-2025 Basophils/100 WBC (Bld) 0.7 % 0-1 [facility] Bilirubin, totalOrdered By: Corby Heller on 01-30-2025 Bilirubin [Mass/Vol] 0.26 mg/dL 0.00-1.30 [facility] CBC W/Diff, Automatedon Absolute Lymph 1.90 X10 3/uL Normal 0.83-4.51 [facility] Comment on above: Performed By: #### L 501.9520, L506.1001, L500.4050, L100.0100 ####[facility] [address] [place], [address] Absolute Neut 6.0 X10 3/uL Normal 2.0-7.7 [facility] Comment on above: Performed By: #### L 501.9520, L506.1001, L500.4050, L100.0100 ####[facility] [address] [place], [address] Basophils/100 WBC (Bld) 0.7 % Normal 0-1 [facility] Comment on above: Performed By: #### L 501.9520, L506.1001, L500.4050, L100.0100 ####[facility] [address] [place], [address] Eosinophils/100 WBC (Bld) 2.4 % Normal 0-5 [facility] Comment on above: Performed By: #### L 501.9520, L506.1001, L500.4050, L100.0100 ####[facility] [address] [place], [address] Erythrocyte distribution width (RBC) [Ratio] 15.0 % High 11.6-14.6 [facility] Comment on above: Performed By: #### L 501.9520, L506.1001, L500.4050, L100.0100 ####[facility] [address] [place], [address] Hematocrit (Bld) [Volume fraction] 33.3 % Low 37-47 [facility] Comment on above: Performed By: #### L 501.9520, L506.1001, L500.4050, L100.0100 ####[facility] [address] [place], [address] Hemoglobin (Bld) [Mass/Vol] 10.4 g/dL Low 12.0-15.0 [facility] Comment on above: Performed By: #### L 501.9520, L506.1001, L500.4050, L100.0100 ####[facility] [address] [place], [address] IG% 1.200 High 0.0-0.9 [facility] Comment on above: Result Comment: IG% - Immature Granulocytes (promyelocytes, myelocytes andmetamyelocytes) > 1% indicates that a LEFT SHIFT is Present. Performed By: #### L 501.9520, L506.1001, L500.4050, L100.0100 ####[facility] [address] [place], [address] Lymphocytes/100 WBC (Bld) 21.1 % Normal 19-41 [facility] Comment on above: Performed By: #### L 501.9520, L506.1001, L500.4050, L100.0100 ####[facility] [address] [place], [address] MCH (RBC) [Entitic mass] 29.5 pg Normal 27.0-32.0 [facility] Comment on above: Performed By: #### L 501.9520, L506.1001, L500.4050, L100.0100 ####[facility] [address] [place], [address] MCHC (RBC) [Mass/Vol] 31.2 g/dL Low 32-36 [facility] Comment on above: Performed By: #### L 501.9520, L506.1001, L500.4050, L100.0100 ####[facility] [address] [place], [address] MCV (RBC) [Entitic vol] 94.6 fL Normal 81-99 [facility] Comment on above: Performed By: #### L 501.9520, L506.1001, L500.4050, L100.0100 ####[facility] [address] [place], [address] Monocytes/100 WBC (Bld) 8.0 % Normal 0-10 [facility] Comment on above: Performed By: #### L 501.9520, L506.1001, L500.4050, L100.0100 ####[facility] [address] [place], [address] Neutrophils/100 WBC (Bld) 66.6 % Normal 47-70 [facility] Comment on above: Performed By: #### L 501.9520, L506.1001, L500.4050, L100.0100 ####[facility] [address] [place], [address] Nucleated RBC (Bld) [#/Vol] 0 10*3/uL Normal 0-5 [facility] Comment on above: Performed By: #### L 501.9520, L506.1001, L500.4050, L100.0100 ####[facility] [address] [place], [address] Platelet mean volume (Bld) [Entitic vol] 9.6 fL Normal 6.2-12.0 [facility] Comment on above: Performed By: #### L 501.9520, L506.1001, L500.4050, L100.0100 ####[facility] [address] [place], [address] Platelets (Bld) [#/Vol] 229 10*3/uL Normal 150-450 [facility] Comment on above: Performed By: #### L 501.9520, L506.1001, L500.4050, L100.0100 ####[facility] [address] [place], [address] RBC (Bld) [#/Vol] 3.52 10*6/uL Low 4.2-5.4 [facility] Comment on above: Performed By: #### L 501.9520, L506.1001, L500.4050, L100.0100 ####[facility] [address] [place], [address] RDW SD 51.3 fl High 35.1-43.9 [facility] Comment on above: Performed By: #### L 501.9520, L506.1001, L500.4050, L100.0100 ####[facility] [address] [place], [address] WBC (Bld) [#/Vol] 9.0 10*3/uL Normal 4.4-11.0 [facility] Comment on above: Performed By: #### L 501.9520, L506.1001, L500.4050, L100.0100 ####[facility] [address] [place], [address] Carbon dioxide, total [Moles /volume] in Central venous bloodOrdered By: Corby Heller on 01-30-2025 CO2 [Moles/Vol] 27.0 mmol/L 21.0-32.0 [facility] Chloride assayOrdered By: Ryder Heller on 01-30-2025 Chloride [Moles/Vol] 102 mmol/L 98-108 [facility] Comprehensive Metabolic Prof ilon 01-30-2025 Albumin [Mass/Vol] 3.7 g/dL Normal 3.4-4.8 [facility] Comment on above: Performed By: #### L 501.9520, L506.1001, L500.4050, L100.0100 ####[facility] [address] [place], [address] Albumin/Globulin [Mass ratio] 1.0 {ratio} Normal 0.9-2.4 [facility] Comment on above: Performed By: #### L 501.9520, L506.1001, L500.4050, L100.0100 ####[facility] [address] [place], [address] ALK PHOS 85 U/L Normal 35-104 [facility] Comment on above: Performed By: #### L 501.9520, L506.1001, L500.4050, L100.0100 ####[facility] [address] [place], [address] ALT [Catalytic activity/Vol] 13 U/L Normal <=34 [facility] Comment on above: Performed By: #### L 501.9520, L506.1001, L500.4050, L100.0100 ####[facility] [address] [place], [address] AST [Catalytic activity/Vol] 26 U/L Normal <=31 [facility] Comment on above: Performed By: #### L 501.9520, L506.1001, L500.4050, L100.0100 ####[facility] [address] [place], [address] Bilirubin [Mass/Vol] 0.26 mg/dL Normal 0.00-1.30 [facility] Comment on above: Performed By: #### L 501.9520, L506.1001, L500.4050, L100.0100 ####[facility] [address] [place], [address] BUN/CRE 22.9 RATIO High 10-20 [facility] Comment on above: Performed By: #### L 501.9520, L506.1001, L500.4050, L100.0100 ####[facility] [address] [place], [address] Calcium [Mass/Vol] 9.6 mg/dL Normal 7.6-11.0 [facility] Comment on above: Performed By: #### L 501.9520, L506.1001, L500.4050, L100.0100 ####[facility] [address] [place], [address] Chloride [Moles/Vol] 102 mmol/L Normal 98-108 [facility] Comment on above: Performed By: #### L 501.9520, L506.1001, L500.4050, L100.0100 ####[facility] [address] [place], [address] CO2 [Moles/Vol] 27.0 mmol/L Normal 21.0-32.0 [facility] Comment on above: Performed By: #### L 501.9520, L506.1001, L500.4050, L100.0100 ####[facility] [address] [place], [address] Creatinine [Mass/Vol] 1.12 mg/dL Normal 0.70-1.20 [facility] Comment on above: Performed By: #### L 501.9520, L506.1001, L500.4050, L100.0100 ####[facility] [address] [place], [address] GAP 10 Normal 5-15 [facility] Comment on above: Performed By: #### L 501.9520, L506.1001, L500.4050, L100.0100 ####[facility] [address] [place], [address] GFR/1.73 sq M.predicted among non-blacks MDRD (S/P/Bld) [Vol rate/Area] 51 mL/min/{1.73_m2} Low >60 [facility] Comment on above: Result Comment: mL/m in/1.73m2 CKD-EPI Creatinine Equation (2020) Performed By: #### L 501.9520, L506.1001, L500.4050, L100.0100 ####[facility] [address] [place], [address] Globulin (S) [Mass/Vol] 3.6 g/dL Normal 2.2-4.2 [facility] Comment on above: Performed By: #### L 501.9520, L506.1001, L500.4050, L100.0100 ####[facility] [address] [place], [address] Glucose [Mass/Vol] 139 mg/dL High 70-99 [facility] Comment on above: Performed By: #### L 501.9520, L506.1001, L500.4050, L100.0100 ####[facility] [address] [place], [address] Potassium [Moles/Vol] 4.7 mmol/L Normal 3.3-5.1 [facility] Comment on above: Performed By: #### L 501.9520, L506.1001, L500.4050, L100.0100 ####[facility] [address] [place], [address] Sodium [Moles/Vol] 139 mmol/L Normal 133-145 [facility] Comment on above: Performed By: #### L 501.9520, L506.1001, L500.4050, L100.0100 ####[facility] [address] [place], [address] T PROT 7.2 g/dL Normal 5.9-8.4 [facility] Comment on above: Performed By: #### L 501.9520, L506.1001, L500.4050, L100.0100 ####[facility] [address] [place], [address] Urea nitrogen [Mass/Vol] 26 mg/dL High 4-19 [facility] Comment on above: Performed By: #### L 501.9520, L506.1001, L500.4050, L100.0100 ####[facility] [address] [place], [address] Eosinophil percentageOrdered By: Corby Heller on 01-30-2025 Eosinophils/100 WBC (Bld) 2.4 % 0-5 [facility] Erythrocyte distribution wid th ratioOrdered By: Corby Arron on 01-30-2025 Erythrocyte distribution width (RBC) [Ratio] 15.0 % High 11.6-14.6 [facility] Erythrocyte distribution wid th standard deviationOrdered By: [facility] on 01-30-2025 Erythrocyte distribution width (RBC) [Ratio] 51.3 fl High 35.1-43.9 [facility] [place] Glomerular filtration rate ( GFR) estimation/1.73 sq m using serum, plasma, or whole bOrdered By: [facility] on 01-30-[facility] GFR/1.73 sq M.predicted among non-blacks MDRD (S/P/Bld) [Vol rate/Area] 51 mL/min/{1.73_m2} Low >60 [facility] Comment on above: mL/min/1.73m2 CKD-EP I Creatinine Equation (2020) Hematocrit Auto (Bld) [Volum e fraction]Ordered By: Corby Arron 01-30-2025 Hematocrit (Bld) [Volume fraction] 33.3 % Low 37-47 [facility] Hemoglobin measurementOrdere d By: Corby Heller on 01-30-2025 Hemoglobin (Bld) [Mass/Vol] 10.4 g/dL Low 12.0-15.0 [facility] Immature granulocytes/100 WB C Auto (Bld)Ordered By: Corby Arron 01-30-2025 Immature granulocytes/100 WBC (Bld) 1.200 % High 0.0-0.9 [facility] Comment on above: IG% - Immature Granu locytes (promyelocytes, myelocytes and metamyelocytes) > 1% indicates that a LEFT SHIFT is Present. Laboratory - Chemistry and C hemistry - challengeOrdered By: Corby Heller 01-30-2025 AST [Catalytic activity/Vol] 26 U/L <32 [facility] MCV (mean corpuscular volume ) determinationOrdered By: Corby Heller on 01-30-2025 MCV (RBC) [Entitic vol] 94.6 fL 81-99 [facility] Mean corpuscular hemoglobin (MCH) determinationOrdered By: Corby Heller on 01-30-2025 MCH (RBC) [Entitic mass] 29.5 pg 27.0-32.0 [facility] Mean corpuscular hemoglobin concentration (MCHC) determinationOrdered By: Corby Heller on 01-30-2025 MCHC (RBC) [Mass/Vol] 31.2 g/dL Low 32-36 [facility] Mean platelet volume determi nationOrdered By: Corby Heller on 01-30-2025 Platelet mean volume (Bld) [Entitic vol] 9.6 fL 6.2-12.0 [facility] Monocyte percentageOrdered B y: Corby Heller on 01-30-2025 Monocytes/100 WBC (Bld) 8.0 % 0-10 [facility] Neutrophil percentageOrdered By: Corby Heller on 01-30-2025 Neutrophils/100 WBC (Bld) 66.6 % 47-70 [facility] Nucleated red blood cell per centageOrdered By: Corby Heller on 01-30-2025 Nucleated RBC/100 WBC (Bld) [Ratio] 0 % 0-5 [facility] Platelet countOrdered By: Ryder Heller on 01-30-2025 Platelets (Bld) [#/Vol] 229 10*3/uL 150-450 [facility] Potassium measurement (mass/ volume)Ordered By: Corby Heller on 01-30-2025 Potassium (Unsp spec) [Mass/Vol] 4.7 mmol/L 3.3-5.1 [facility] Protein+Creatinine Ratio,Uri neon 01-30-2025 PROT:CRE RATIO Normal 0-200 [facility] Comment on above: Result Comment: @CATHY FABY SAID SHE ALREADY DID HER URINE IN OFFICE Performed By: #### L 500.3600, L501.0900 ####[facility] [address] [place], [address] PROTEIN,UR.RAN. Normal 0.0-12.0 [facility] Comment on above: Result Comment: @CATHY HOBBS SAID SHE ALREADY DID HER URINE IN OFFICE Performed By: #### L 500.3600, L501.0900 ####[facility] [address] [place], [address] UR CREAT Normal 28.00-217. 00 [facility] Comment on above: Result Comment: @CATHY HOBBS SAID SHE ALREADY DID HER URINE IN OFFICE Performed By: #### L 500.3600, L501.0900 ####[facility] [address] [place], [address] RBC Auto (Bld) [#/Vol]Ordere d By: Corby Heller on 01-30-2025 RBC (Bld) [#/Vol] 3.52 10*6/uL Low 4.2-5.4 [facility] Random urine creatinine sarbjit urement (mass/volume)Ordered By: Corby Heller on 01-30-2025 Creatinine Unsp time (U) [Mass/Vol] 139.00 mg/dL 28.00-217. 00 [facility] Renal Profileon 01-30-2025 Albumin [Mass/Vol] 3.7 g/dL Normal 3.4-4.8 [facility] Comment on above: Performed By: #### L 500.3600, L501.0900 ####[facility] [address] [place], [address] BUN/CRE 23.0 RATIO High 10-20 [facility] Comment on above: Performed By: #### L 500.3600, L501.0900 ####[facility] [address] [place], [address] Calcium [Mass/Vol] 9.6 mg/dL Normal 7.6-11.0 [facility] Comment on above: Performed By: #### L 500.3600, L501.0900 ####[facility] [address] [place], [address] Chloride [Moles/Vol] 101 mmol/L Normal 98-108 [facility] Comment on above: Performed By: #### L 500.3600, L501.0900 ####[facility] [address] [place], [address] CO2 [Moles/Vol] 26.8 mmol/L Normal 21.0-32.0 [facility] Comment on above: Performed By: #### L 500.3600, L501.0900 ####[facility] [address] [place], [address] Creatinine [Mass/Vol] 1.12 mg/dL Normal 0.70-1.20 [facility] Comment on above: Performed By: #### L 500.3600, L501.0900 ####[facility] [address] [place], [address] GAP 10 Normal 5-15 [facility] Comment on above: Performed By: #### L 500.3600, L501.0900 ####[facility] [address] [place], [address] GFR/1.73 sq M.predicted among non-blacks MDRD (S/P/Bld) [Vol rate/Area] 51 mL/min/{1.73_m2} Low >60 [facility] Comment on above: Result Comment: mL/m in/1.73m2 CKD-EPI Creatinine Equation (2020) Performed By: #### L 500.3600, L501.0900 ####[facility] [address] [place], [address] Glucose [Mass/Vol] 138 mg/dL High 70-99 [facility] Comment on above: Performed By: #### L 500.3600, L501.0900 ####[facility] [address] [place], [address] Phosphate [Mass/Vol] 2.9 mg/dL Normal 2.7-4.5 [facility] Comment on above: Performed By: #### L 500.3600, L501.0900 ####[facility] [address] [place], [address] Potassium [Moles/Vol] 4.6 mmol/L Normal 3.3-5.1 [facility] Comment on above: Performed By: #### L 500.3600, L501.0900 ####[facility] [address] [place], [address] Sodium [Moles/Vol] 138 mmol/L Normal 133-145 [facility] Comment on above: Performed By: #### L 500.3600, L501.0900 ####[facility] [address] [place], [address] Urea nitrogen [Mass/Vol] 26 mg/dL High 4-19 [facility] Comment on above: Performed By: #### L 500.3600, L501.0900 ####[facility] [address] [place], [address] Serum creatinine measurement (mass/volume)Ordered By: Corby Heller on 01-30-2025 Creatinine [Mass/Vol] 1.12 mg/dL 0.70-1.20 [facility] Serum globulin measurementOr dered By: Corby Heller on 01-30-2025 Globulin (S) [Mass/Vol] 3.6 g/dL 2.2-4.2 [facility] Serum glucose measurement (m ass/volume)Ordered By: Corby Heller on 01-30-2025 Glucose [Mass/Vol] 139 mg/dL High 70-99 [facility] Serum or plasma alanine saldana otransferase (ALT) measurementOrdered By: Corby Heller on 01-30-2025 ALT [Catalytic activity/Vol] 13 U/L <35 [facility] Serum or plasma albumin sarbjit urement (mass/volume)Ordered By: Corby Heller on 01-30-2025 Albumin [Mass/Vol] 3.7 g/dL 3.4-4.8 [facility] Serum or plasma albumin/glob ulin mass ratioOrdered By: Corby Heller on 01-30-2025 Albumin/Globulin [Mass ratio] 1.0 {ratio} 0.9-2.4 [facility] Serum or plasma alkaline louie sphatase measurementOrdered By: Corby Heller on 01-30-2025 ALP [Catalytic activity/Vol] 85 U/L 35-104 [facility] Serum or plasma calcium sarbjit urement (mass/volume)Ordered By: Corby Heller on 01-30-2025 Calcium [Mass/Vol] 9.6 mg/dL 7.6-11.0 [facility] Serum or plasma urea nitroge n measurement (mass/volume)Ordered By: Corby Heller on 01-30-2025 Urea nitrogen [Mass/Vol] 26 mg/dL High 4-19 [facility] Sodium levelOrdered By: Corby Heller 01-30-2025 Sodium [Moles/Vol] 139 mmol/L 133-145 [facility] TSH DL <= 0.005 mIU/L QnOrde red By: Corby Heller on 01-30-2025 TSH Qn 3.440 uIU/mL 0.300-4.20 0 [facility] Thyroid Stim Hormone (TSH)on 01-30-2025 TSH 3.440 uIU/mL Normal 0.300-4.20 0 [facility] Comment on above: Performed By: #### L 501.9520, L506.1001, L500.4050, L100.0100 ####[facility] [address] [place], [address] Total proteinOrdered By: Corby Heller on 01-30-2025 Protein [Mass/Vol] 7.2 g/dL 5.9-8.4 [facility] Urine albumin measurement wi detection limit of 20 mg/L or less (mass/volume)Ordered By: Corby Heller on 01-30-2025 Albumin DL <= 20 mg/L (U) [Mass/Vol] 198.0 mg/L NO RANGE EST. [facility] Vitamin D,25 Hydroxyon 01-30 Vitamin D 25-OH 40.9 ng/mL Normal 30-100 [facility] Comment on above: Result Comment: Danelle min D StatusDeficiency: <20 ng/mL (50nmol/L)Insufficiency: 20-30 ng/mL (50-75 nmol/L)Sufficiency: 30-100 ng/mL (75-250 nmol/L)Toxicity: >100 ng/mL (>250 nmol/L) Performed By: #### L 501.9520, L506.1001, L500.4050, L100.0100 ####[facility] [address] [place], [address] White blood cell (WBC) count Ordered By: Corby Heller on 01-30-2025 WBC (Bld) [#/Vol] 9.0 10*3/uL 4.4-11.0 [facility] Plastic Surgery Visit Report on 01-26-2025 Plastic Surgery Visit Report Normal [facility] Plastic Surgery Visit Report on 01-18-2025 Plastic Surgery Visit Report Normal [facility] Surgery Specimen Level Odilia 01-18-2025 Surgery Specimen Level IV Normal [facility] Comment on above: Performed By: #### P SUIV ####[facility] [address] [place], [place], [address] Bedside Glucoseon 01-01-2025 FINGERSTICK GLU 128 mg/dL High 74-106 [facility] Comment on above: Result Comment: MAHAD GARRISONENT OF PATIENT CARE PER NURSING PROTOCOL Performed By: #### L 501.080 ####[facility] [address] [place], [address] Emergency Department Summary on 01-01-2025 Emergency Department Summary Normal [facility] deOrdered By: Evans Blankenship on 01-01-2025 Glucose [Mass/Vol] 128 mg/dL High 74-106 [facility] Comment on above: MANAGEMENT OF PATIEN T CARE PER NURSING PROTOCOL Knee 1 or 2 Viewson 01-02-20 25 Knee 1 or 2 Views Normal [facility] Wrist min 3 Viewson 04-07-20 25 Wrist min 3 Views Normal [facility] Anion gap in Serum or Plasma Ordered By: Rob Krishnamurthy on 12-28-2024 Anion gap [Moles/Vol] 11 mmol/L 5-15 [facility] BUN/creatinine ratioOrdered By: Rob Krishnamurthy on 12-28-2024 Urea nitrogen/Creatinine [Mass ratio] 36.8 mg/mg High 10-20 [facility] Bilirubin, totalOrdered By: Rob Krishnamurthy on 12-28-2024 Bilirubin [Mass/Vol] 0.35 mg/dL 0.00-1.30 [facility] CBC-Complete Blood Cnt No Di ffon 12-28-2024 Erythrocyte distribution width (RBC) [Ratio] 14.5 % Normal 11.6-14.6 [facility] Comment on above: Performed By: #### L 100.0500, L500.4050 ####[facility] [address] [place], [address] Hematocrit (Bld) [Volume fraction] 30.8 % Low 37-47 [facility] Comment on above: Performed By: #### L 100.0500, L500.4050 ####[facility] [address] [place], [address] Hemoglobin (Bld) [Mass/Vol] 10.0 g/dL Low 12.0-15.0 [facility] Comment on above: Performed By: #### L 100.0500, L500.4050 ####[facility] [address] [place], [address] MCH (RBC) [Entitic mass] 30.1 pg Normal 27.0-32.0 [facility] Comment on above: Performed By: #### L 100.0500, L500.4050 ####[facility] [address] [place], [address] MCHC (RBC) [Mass/Vol] 32.5 g/dL Normal 32-36 [facility] Comment on above: Performed By: #### L 100.0500, L500.4050 ####[facility] [address] [place], [address] MCV (RBC) [Entitic vol] 92.8 fL Normal 81-99 [facility] Comment on above: Performed By: #### L 100.0500, L500.4050 ####[facility] [address] [place], [address] Platelet mean volume (Bld) [Entitic vol] 9.1 fL Normal 6.2-12.0 [facility] Comment on above: Performed By: #### L 100.0500, L500.4050 ####[facility] [address] [place], [address] Platelets (Bld) [#/Vol] 203 10*3/uL Normal 150-450 [facility] Comment on above: Performed By: #### L 100.0500, L500.4050 ####[facility] [address] [place], [address] RBC (Bld) [#/Vol] 3.32 10*6/uL Low 4.2-5.4 [facility] Comment on above: Performed By: #### L 100.0500, L500.4050 ####[facility] [address] [place], [address] RDW SD 49.1 fl High 35.1-43.9 [facility] Comment on above: Performed By: #### L 100.0500, L500.4050 ####[facility] [address] [place], [address] WBC (Bld) [#/Vol] 8.0 10*3/uL Normal 4.4-11.0 [facility] Comment on above: Performed By: #### L 100.0500, L500.4050 ####[facility] [address] [place], [address] Carbon dioxide, total [Moles /volume] in Central venous bloodOrdered By: Rob Krishnamurthy on 12-28-2024 CO2 [Moles/Vol] 23.4 mmol/L 21.0-32.0 [facility] Chloride assayOrdered By: Monie Krishnamurthy on 12-28-2024 Chloride [Moles/Vol] 104 mmol/L 98-108 [facility] Comprehensive Metabolic Prof ilon 12-28-2024 Albumin [Mass/Vol] 3.8 g/dL Normal 3.4-4.8 [facility] Comment on above: Performed By: #### L 100.0500, L500.4050 ####[facility] [address] [place], [address] Albumin/Globulin [Mass ratio] 1.1 {ratio} Normal 0.9-2.4 [facility] Comment on above: Performed By: #### L 100.0500, L500.4050 ####[facility] [address] [place], [address] ALK PHOS 72 U/L Normal 35-104 [facility] Comment on above: Performed By: #### L 100.0500, L500.4050 ####[facility] [address] [place], [address] ALT [Catalytic activity/Vol] 9 U/L Normal <=34 [facility] Comment on above: Performed By: #### L 100.0500, L500.4050 ####[facility] [address] [place], [address] AST [Catalytic activity/Vol] 20 U/L Normal <=31 [facility] Comment on above: Performed By: #### L 100.0500, L500.4050 ####[facility] [address] [place], [address] Bilirubin [Mass/Vol] 0.35 mg/dL Normal 0.00-1.30 [facility] Comment on above: Performed By: #### L 100.0500, L500.4050 ####[facility] [address] [place], [address] BUN/CRE 36.8 RATIO High 10-20 [facility] Comment on above: Performed By: #### L 100.0500, L500.4050 ####[facility] [address] [place], [address] Calcium [Mass/Vol] 9.4 mg/dL Normal 7.6-11.0 [facility] Comment on above: Performed By: #### L 100.0500, L500.4050 ####[facility] [address] [place], [address] Chloride [Moles/Vol] 104 mmol/L Normal 98-108 [facility] Comment on above: Performed By: #### L 100.0500, L500.4050 ####[facility] [address] [place], [address] CO2 [Moles/Vol] 23.4 mmol/L Normal 21.0-32.0 [facility] Comment on above: Performed By: #### L 100.0500, L500.4050 ####[facility] [address] [place], [address] Creatinine [Mass/Vol] 1.17 mg/dL Normal 0.70-1.20 [facility] Comment on above: Performed By: #### L 100.0500, L500.4050 ####[facility] [address] [place], [address] GAP 11 Normal 5-15 [facility] Comment on above: Performed By: #### L 100.0500, L500.4050 ####[facility] [address] [place], [address] GFR/1.73 sq M.predicted among non-blacks MDRD (S/P/Bld) [Vol rate/Area] 49 mL/min/{1.73_m2} Low >60 [facility] Comment on above: Result Comment: mL/m in/1.73m2 CKD-EPI Creatinine Equation (2020) Performed By: #### L 100.0500, L500.4050 ####[facility] [address] [place], [address] Globulin (S) [Mass/Vol] 3.6 g/dL Normal 2.2-4.2 [facility] Comment on above: Performed By: #### L 100.0500, L500.4050 ####[facility] [address] [place], [address] Glucose [Mass/Vol] 133 mg/dL High 70-99 [facility] Comment on above: Performed By: #### L 100.0500, L500.4050 ####[facility] [address] [place], [address] Potassium [Moles/Vol] 4.4 mmol/L Normal 3.3-5.1 [facility] Comment on above: Performed By: #### L 100.0500, L500.4050 ####[facility] [address] [place], [address] Sodium [Moles/Vol] 139 mmol/L Normal 133-145 [facility] Comment on above: Performed By: #### L 100.0500, L500.4050 ####[facility] [address] [place], [address] T PROT 7.4 g/dL Normal 5.9-8.4 [facility] Comment on above: Performed By: #### L 100.0500, L500.4050 ####[facility] [address] [place], [address] Urea nitrogen [Mass/Vol] 43 mg/dL High 4-19 [facility] Comment on above: Performed By: #### L 100.0500, L500.4050 ####[facility] [address] [place], [address] Erythrocyte distribution wid th (RBC) [Ratio]Ordered By: Rob Krishnamurthy on 12-28-2024 Erythrocyte distribution width (RBC) [Entitic vol] 49.1 fL High 35.1-43.9 [facility] Erythrocyte distribution wid th ratioOrdered By: Rob Krishnamurthy on 12-28-2024 Erythrocyte distribution width (RBC) [Ratio] 14.5 % 11.6-14.6 [facility] Erythrocyte distribution wid th standard deviationOrdered By: Rob Krishnamurthy on 12-28-2024 Erythrocyte distribution width (RBC) [Ratio] 49.1 fl High 35.1-43.9 [facility] GFR/1.73 sq M.predicted kyle g non-blacks MDRD (S/P/Bld) [Vol rate/Area]Ordered By: Rob Krishnamurthy on 12-28-2024 Estimated GFR (MDRD) Non-Af Amer 49 Low >60 [facility] Comment on above: mL/min/1.73m2 CKD-EP I Creatinine Equation (2020) Glomerular filtration rate ( GFR) estimation/1.73 sq m using serum, plasma, or whole bOrdered By: Rob Krishnamurthy on 12-28-2024 GFR/1.73 sq M.predicted among non-blacks MDRD (S/P/Bld) [Vol rate/Area] 49 mL/min/{1.73_m2} Low >60 [facility] Comment on above: mL/min/1.73m2 CKD-EP I Creatinine Equation (2020) Hematocrit Auto (Bld) [Volum e fraction]Ordered By: Rob Krishnamurthy on 12-28-2024 Hematocrit (Bld) [Volume fraction] 30.8 % Low 37-47 [facility] Hemoglobin measurementOrdere d By: Rob Krishnamurthy on 12-28-2024 Hemoglobin (Bld) [Mass/Vol] 10.0 g/dL Low 12.0-15.0 [facility] Laboratory - Chemistry and C hemistry - challengeOrdered By: Rob Krishnamurthy on 12-28-2024 AST [Catalytic activity/Vol] 20 U/L <32 [facility] MCV (mean corpuscular volume ) determinationOrdered By: Rob Krishnamurthy on 12-28-2024 MCV (RBC) [Entitic vol] 92.8 fL 81-99 [facility] Mean corpuscular hemoglobin (MCH) determinationOrdered By: Rob Krishnamurthy on 12-28-2024 MCH (RBC) [Entitic mass] 30.1 pg 27.0-32.0 [facility] Mean corpuscular hemoglobin concentration (MCHC) determinationOrdered By: Rob Krishnamurthy on 12-28-2024 MCHC (RBC) [Mass/Vol] 32.5 g/dL 32-36 [facility] Mean platelet volume determi nationOrdered By: Rob Krishnamurthy on 12-28-2024 Platelet mean volume (Bld) [Entitic vol] 9.1 fL 6.2-12.0 [facility] Platelet countOrdered By: Monie Krishnamurthy on 12-28-2024 Platelets (Bld) [#/Vol] 203 10*3/uL 150-450 [facility] Potassium (Unsp spec) [Mass/ Vol]Ordered By: Rob Krishnamurthy on 12-28-2024 Potassium [Moles/Vol] 4.4 mmol/L 3.3-5.1 [facility] Potassium measurement (mass/ volume)Ordered By: Rob Krishnamurthy on 12-28-2024 Potassium (Unsp spec) [Mass/Vol] 4.4 mmol/L 3.3-5.1 [facility] RBC Auto (Bld) [#/Vol]Ordere d By: Rob Krishnamurthy on 12-28-2024 RBC (Bld) [#/Vol] 3.32 10*6/uL Low 4.2-5.4 [facility] Serum creatinine measurement (mass/volume)Ordered By: Rob Krishnamurthy on 12-28-2024 Creatinine [Mass/Vol] 1.17 mg/dL 0.70-1.20 [facility] Serum globulin measurementOr dered By: Rob Krishnamurthy on 12-28-2024 Globulin (S) [Mass/Vol] 3.6 g/dL 2.2-4.2 [facility] Serum glucose measurement (m ass/volume)Ordered By: Rob Krishnamurthy on 12-28-2024 Glucose [Mass/Vol] 133 mg/dL High 70-99 [facility] Serum or plasma alanine saldana otransferase (ALT) measurementOrdered By: Rob Krishnamurthy on 12-28-2024 ALT [Catalytic activity/Vol] 9 U/L <35 [facility] Serum or plasma albumin sarbjit urement (mass/volume)Ordered By: Rob Krishnamurthy on 12-28-2024 Albumin [Mass/Vol] 3.8 g/dL 3.4-4.8 [facility] Serum or plasma albumin/glob ulin mass ratioOrdered By: Rob Krishnamurthy on 12-28-2024 Albumin/Globulin [Mass ratio] 1.1 {ratio} 0.9-2.4 [facility] Serum or plasma alkaline louie sphatase measurementOrdered By: Rob Krishnamurthy on 12-28-2024 ALP [Catalytic activity/Vol] 72 U/L 35-104 [facility] Serum or plasma calcium sarbjit urement (mass/volume)Ordered By: Rob Krishnamurthy on 12-28-2024 Calcium [Mass/Vol] 9.4 mg/dL 7.6-11.0 [facility] Serum or plasma urea nitroge n measurement (mass/volume)Ordered By: Rob Krishnamurthy on 12-28-2024 Urea nitrogen [Mass/Vol] 43 mg/dL High 4-19 [facility] Sodium levelOrdered By: Jesse Krishnamurthy on 12-28-2024 [...] Department Summary on 12-23-2024 Emergency Department Summary Normal [facility] Urine Cultureon 03-27-2025 URC Normal [facility] Comment on above: Performed By: #### L 500.4050, L100.0100, M100.2200, M100.678 ####[facility] [address] [place], [address] Absolute lymphocyte countOrd ered By: Corby Conroyok on 12-18-2024 Lymphocytes Auto (Unsp spec) [#/Vol] 2.07 10*3/uL 0.83-4.51 [facility] Absolute neutrophil countOrd ered By: Corby Heller on 12-18-2024 Neutrophils (Bld) [#/Vol] 6.1 10*3/uL 2.0-7.7 [facility] Anion gap in Serum or Plasma Ordered By: Corby Arron on 12-18-2024 Anion gap [Moles/Vol] 15 mmol/L 5-15 [facility] Automated lymphocyte count a s percentage of total leukocytesOrdered By: Corby Arron on 12-18-2024 Lymphocytes/100 WBC Auto (Unsp spec) 23.0 % 19-41 [facility] BUN/creatinine ratioOrdered By: Corby Arron on 12-18-2024 Urea nitrogen/Creatinine [Mass ratio] 34.2 mg/mg High 10-20 [facility] Basophil percentageOrdered B y: Corby Arron on 12-18-2024 Basophils/100 WBC (Bld) 0.4 % 0-1 [facility] Bilirubin, totalOrdered By: Corby Arron on 12-18-2024 Bilirubin [Mass/Vol] 0.36 mg/dL 0.00-1.30 [facility] CBC W/Diff, Automatedon 11-26 Absolute Lymph 2.07 X10 3/uL Normal 0.83-4.51 [facility] Comment on above: Performed By: #### L 500.4050, L100.0100, M100.2200, M100.678 ####[facility] [address] [place], [address] Absolute Neut 6.1 X10 3/uL Normal 2.0-7.7 [facility] Comment on above: Performed By: #### L 500.4050, L100.0100, M100.2200, M100.678 ####[facility] [address] [place], [address] Basophils/100 WBC (Bld) 0.4 % Normal 0-1 [facility] Comment on above: Performed By: #### L 500.4050, L100.0100, M100.2200, M100.678 ####[facility] [address] [place], [address] Eosinophils/100 WBC (Bld) 1.9 % Normal 0-5 [facility] Comment on above: Performed By: #### L 500.4050, L100.0100, M100.2200, M100.678 ####[facility] [address] [place], [address] Erythrocyte distribution width (RBC) [Ratio] 14.4 % Normal 11.6-14.6 [facility] Comment on above: Performed By: #### L 500.4050, L100.0100, M100.2200, M100.678 ####[facility] [address] [place], [address] Hematocrit (Bld) [Volume fraction] 33.5 % Low 37-47 [facility] Comment on above: Performed By: #### L 500.4050, L100.0100, M100.2200, M100.678 ####[facility] [address] [place], [address] Hemoglobin (Bld) [Mass/Vol] 10.8 g/dL Low 12.0-15.0 [facility] Comment on above: Performed By: #### L 500.4050, L100.0100, M100.2200, M100.678 ####[facility] [address] [place], [address] IG% 0.800 Normal 0.0-0.9 [facility] Comment on above: Result Comment: IG% - Immature Granulocytes (promyelocytes, myelocytes andmetamyelocytes) > 1% indicates that a LEFT SHIFT is Present. Performed By: #### L 500.4050, L100.0100, M100.2200, M100.678 ####[facility] [address] [place], [address] Lymphocytes/100 WBC (Bld) 23.0 % Normal 19-41 [facility] Comment on above: Performed By: #### L 500.4050, L100.0100, M100.2200, M100.678 ####[facility] [address] [place], [address] MCH (RBC) [Entitic mass] 30.8 pg Normal 27.0-32.0 [facility] Comment on above: Performed By: #### L 500.4050, L100.0100, M100.2200, M100.678 ####[facility] [address] [place], [address] MCHC (RBC) [Mass/Vol] 32.2 g/dL Normal 32-36 [facility] Comment on above: Performed By: #### L 500.4050, L100.0100, M100.2200, M100.678 ####[facility] [address] [place], [address] MCV (RBC) [Entitic vol] 95.4 fL Normal 81-99 [facility] Comment on above: Performed By: #### L 500.4050, L100.0100, M100.2200, M100.678 ####[facility] [address] [place], [address] Monocytes/100 WBC (Bld) 6.0 % Normal 0-10 [facility] Comment on above: Performed By: #### L 500.4050, L100.0100, M100.2200, M100.678 ####[facility] [address] [place], [address] Neutrophils/100 WBC (Bld) 67.9 % Normal 47-70 [facility] Comment on above: Performed By: #### L 500.4050, L100.0100, M100.2200, M100.678 ####[facility] [address] [place], [address] Nucleated RBC (Bld) [#/Vol] 0 10*3/uL Normal 0-5 [facility] Comment on above: Performed By: #### L 500.4050, L100.0100, M100.2200, M100.678 ####[facility] [address] [place], [address] Platelet mean volume (Bld) [Entitic vol] 9.3 fL Normal 6.2-12.0 [facility] Comment on above: Performed By: #### L 500.4050, L100.0100, M100.2200, M100.678 ####[facility] [address] [place], [address] Platelets (Bld) [#/Vol] 253 10*3/uL Normal 150-450 [facility] Comment on above: Performed By: #### L 500.4050, L100.0100, M100.2200, M100.678 ####[facility] [address] [place], [address] RBC (Bld) [#/Vol] 3.51 10*6/uL Low 4.2-5.4 [facility] Comment on above: Performed By: #### L 500.4050, L100.0100, M100.2200, M100.678 ####[facility] [address] [place], [address] RDW SD 50.0 fl High 35.1-43.9 [facility] Comment on above: Performed By: #### L 500.4050, L100.0100, M100.2200, M100.678 ####[facility] [address] [place], [address] WBC (Bld) [#/Vol] 9.0 10*3/uL Normal 4.4-11.0 [facility] Comment on above: Performed By: #### L 500.4050, L100.0100, M100.2200, M100.678 ####[facility] [address] [place], [address] Carbon dioxide, total [Moles /volume] in Central venous bloodOrdered By: Corby Heller on 12-18-2024 CO2 [Moles/Vol] 21.7 mmol/L 21.0-32.0 [facility] Chest PA and Lateralon 12-18 Chest PA and Lateral Normal [facility] Chloride assayOrdered By: Ryder Heller on 12-18-2024 Chloride [Moles/Vol] 102 mmol/L 98-108 [facility] Comprehensive Metabolic Prof ilon 12-18-2024 Albumin [Mass/Vol] 4.0 g/dL Normal 3.4-4.8 [facility] Comment on above: Performed By: #### L 500.4050, L100.0100, M100.2200, M100.678 ####[facility] [address] [place], [address] Albumin/Globulin [Mass ratio] 1.0 {ratio} Normal 0.9-2.4 [facility] Comment on above: Performed By: #### L 500.4050, L100.0100, M100.2200, M100.678 ####[facility] [address] [place], [address] ALK PHOS 74 U/L Normal 35-104 [facility] Comment on above: Performed By: #### L 500.4050, L100.0100, M100.2200, M100.678 ####[facility] [address] [place], [address] ALT [Catalytic activity/Vol] 10 U/L Normal <=34 [facility] Comment on above: Performed By: #### L 500.4050, L100.0100, M100.2200, M100.678 ####[facility] [address] [place], [address] AST [Catalytic activity/Vol] 21 U/L Normal <=31 [facility] Comment on above: Performed By: #### L 500.4050, L100.0100, M100.2200, M100.678 ####[facility] [address] [place], [address] Bilirubin [Mass/Vol] 0.36 mg/dL Normal 0.00-1.30 [facility] Comment on above: Performed By: #### L 500.4050, L100.0100, M100.2200, M100.678 ####[facility] [address] [place], [address] BUN/CRE 34.2 RATIO High 10-20 [facility] Comment on above: Performed By: #### L 500.4050, L100.0100, M100.2200, M100.678 ####[facility] [address] [place], [address] Calcium [Mass/Vol] 9.8 mg/dL Normal 7.6-11.0 [facility] Comment on above: Performed By: #### L 500.4050, L100.0100, M100.2200, M100.678 ####[facility] [address] [place], [address] Chloride [Moles/Vol] 102 mmol/L Normal 98-108 [facility] Comment on above: Performed By: #### L 500.4050, L100.0100, M100.2200, M100.678 ####[facility] [address] [place], [address] CO2 [Moles/Vol] 21.7 mmol/L Normal 21.0-32.0 [facility] Comment on above: Performed By: #### L 500.4050, L100.0100, M100.2200, M100.678 ####[facility] [address] [place], [address] Creatinine [Mass/Vol] 1.00 mg/dL Normal 0.70-1.20 [facility] Comment on above: Performed By: #### L 500.4050, L100.0100, M100.2200, M100.678 ####[facility] [address] [place], [address] GAP 15 Normal 5-15 [facility] Comment on above: Performed By: #### L 500.4050, L100.0100, M100.2200, M100.678 ####[facility] [address] [place], [address] GFR/1.73 sq M.predicted among non-blacks MDRD (S/P/Bld) [Vol rate/Area] 59 mL/min/{1.73_m2} Low >60 [facility] Comment on above: Result Comment: mL/m in/1.73m2 CKD-EPI Creatinine Equation (2020) Performed By: #### L 500.4050, L100.0100, M100.2200, M100.678 ####[facility] [address] [place], [address] Globulin (S) [Mass/Vol] 3.9 g/dL Normal 2.2-4.2 [facility] Comment on above: Performed By: #### L 500.4050, L100.0100, M100.2200, M100.678 ####[facility] [address] [place], [address] Glucose [Mass/Vol] 176 mg/dL High 70-99 [facility] Comment on above: Performed By: #### L 500.4050, L100.0100, M100.2200, M100.678 ####[facility] [address] [place], [address] Potassium [Moles/Vol] 4.5 mmol/L Normal 3.3-5.1 [facility] Comment on above: Performed By: #### L 500.4050, L100.0100, M100.2200, M100.678 ####[facility] [address] [place], [address] Sodium [Moles/Vol] 138 mmol/L Normal 133-145 [facility] Comment on above: Performed By: #### L 500.4050, L100.0100, M100.2200, M100.678 ####[facility] [address] [place], [address] T PROT 7.9 g/dL Normal 5.9-8.4 [facility] Comment on above: Performed By: #### L 500.4050, L100.0100, M100.2200, M100.678 ####[facility] [address] [place], [address] Urea nitrogen [Mass/Vol] 34 mg/dL High 4-19 [facility] Comment on above: Performed By: #### L 500.4050, L100.0100, M100.2200, M100.678 ####[facility] [address] [place], [address] Eosinophil percentageOrdered By: Corby Heller on 12-18-2024 Eosinophils/100 WBC (Bld) 1.9 % 0-5 [facility] Erythrocyte distribution wid th ratioOrdered By: Corby Heller on 12-18-2024 Erythrocyte distribution width (RBC) [Ratio] 14.4 % 11.6-14.6 [facility] Erythrocyte distribution wid th standard deviationOrdered By: Corby Heller 12-18-2024 Erythrocyte distribution width (RBC) [Entitic vol] 50.0 fL High 35.1-43.9 [facility] Erythrocyte distribution width (RBC) [Ratio] 50.0 fl High 35.1-43.9 [facility] GFR/1.73 sq M.predicted kyle g non-blacks MDRD (S/P/Bld) [Vol rate/Area]Ordered By: Corby Heller 12-18-2024 Estimated GFR (MDRD) Non-Af Amer 59 Low >60 [facility] Comment on above: mL/min/1.73m2 CKD-EP I Creatinine Equation (2020) Glomerular filtration rate ( GFR) estimation/1.73 sq m using serum, plasma, or whole bOrdered By: Corby Heller 12-18-2024 GFR/1.73 sq M.predicted among non-blacks MDRD (S/P/Bld) [Vol rate/Area] 59 mL/min/{1.73_m2} Low >60 [facility] Comment on above: mL/min/1.73m2 CKD-EP I Creatinine Equation (2020) Hematocrit Auto (Bld) [Volum e fraction]Ordered By: Corby Heller 12-18-2024 Hematocrit (Bld) [Volume fraction] 33.5 % Low 37-47 [facility] Hemoglobin measurementOrdere d By: Corby Heller 12-18-2024 Hemoglobin (Bld) [Mass/Vol] 10.8 g/dL Low 12.0-15.0 [facility] Immature granulocytes/100 WB C Auto (Bld)Ordered By: Corby Heller 12-18-2024 Immature granulocytes/100 WBC (Bld) 0.800 % 0.0-0.9 [facility] Comment on above: IG% - Immature Granu locytes (promyelocytes, myelocytes and metamyelocytes) > 1% indicates that a LEFT SHIFT is Present. Influenza virus A and B and SARS-CoV-2 (COVID-19) and Respiratory syncytial virus RNAOrdered By: Corby Heller on 12-18-2024 SARS-CoV-2 (COVID-19) RNA ROSEANNE+probe Ql (Unsp spec) [facility] Laboratory - Chemistry and C hemistry - challengeOrdered By: Corby Heller on 12-18-2024 AST [Catalytic activity/Vol] 21 U/L <32 [facility] Lymphocytes Auto (Unsp spec) [#/Vol]Ordered By: Corby Heller on 12-18-2024 Lymphocytes (Bld) [#/Vol] 2.07 10*3/uL 0.83-4.51 [facility] Lymphocytes/100 WBC Auto (Un sp spec)Ordered By: Corby Heller on 12-18-2024 Lymphocytes/100 WBC (Bld) 23.0 % 19-41 [facility] M100.678on 12-18-2024 M100.678 Pending SARS-CoV-2 (COVID 19) Negative INFLUENZA A Negative INFLUENZA B Negative RSV PCR Negative Normal [facility] Comment on above: Performed By: #### L 500.4050, L100.0100, M100.2200, M100.678 ####[facility] [address] [place], [place], [id number] MCV (mean corpuscular volume ) determinationOrdered By: Corby Heller on 12-18-2024 MCV (RBC) [Entitic vol] 95.4 fL 81-99 [facility] Mean corpuscular hemoglobin (MCH) determinationOrdered By: Corby Heller on 12-18-2024 MCH (RBC) [Entitic mass] 30.8 pg 27.0-32.0 [facility] Mean corpuscular hemoglobin concentration (MCHC) determinationOrdered By: Corby Heller 12-18-2024 MCHC (RBC) [Mass/Vol] 32.2 g/dL 32-36 [facility] Mean platelet volume determi nationOrdered By: Corby Heller on 12-18-2024 Platelet mean volume (Bld) [Entitic vol] 9.3 fL 6.2-12.0 [facility] Monocyte percentageOrdered B y: Corby Heller on 12-18-2024 Monocytes/100 WBC (Bld) 6.0 % 0-10 [facility] Neutrophil percentageOrdered By: Corby Heller on 12-18-2024 Neutrophils/100 WBC (Bld) 67.9 % 47-70 [facility] Nucleated red blood cell per centageOrdered By: Corby Heller on 12-18-2024 Nucleated RBC/100 WBC (Bld) [Ratio] 0 % 0-5 [facility] Platelet countOrdered By: Ryder Heller on 12-18-2024 Platelets (Bld) [#/Vol] 253 10*3/uL 150-450 [facility] Potassium (Unsp spec) [Mass/ Vol]Ordered By: Corby Heller on 12-18-2024 Potassium [Moles/Vol] 4.5 mmol/L 3.3-5.1 [facility] Potassium measurement (mass/ volume)Ordered By: Corby Heller on 12-18-2024 Potassium (Unsp spec) [Mass/Vol] 4.5 mmol/L 3.3-5.1 [facility] RBC Auto (Bld) [#/Vol]Ordere d By: Corby Heller on 12-18-2024 RBC (Bld) [#/Vol] 3.51 10*6/uL Low 4.2-5.4 [facility] Serum creatinine measurement (mass/volume)Ordered By: Corby Heller on 12-18-2024 Creatinine [Mass/Vol] 1.00 mg/dL 0.70-1.20 [facility] Serum globulin measurementOr dered By: Corby Heller on 12-18-2024 Globulin (S) [Mass/Vol] 3.9 g/dL 2.2-4.2 [facility] Serum glucose measurement (m ass/volume)Ordered By: Corby Heller on 12-18-2024 Glucose [Mass/Vol] 176 mg/dL High 70-99 [facility] Serum or plasma alanine saldana otransferase (ALT) measurementOrdered By: Corby Heller on 12-18-2024 ALT [Catalytic activity/Vol] 10 U/L <35 [facility] Serum or plasma albumin sarbjit urement (mass/volume)Ordered By: Corby Heller on 12-18-2024 Albumin [Mass/Vol] 4.0 g/dL 3.4-4.8 [facility] Serum or plasma albumin/glob ulin mass ratioOrdered By: Corby Heller on 12-18-2024 Albumin/Globulin [Mass ratio] 1.0 {ratio} 0.9-2.4 [facility] Serum or plasma alkaline louie sphatase measurementOrdered By: Corby Heller on 12-18-2024 ALP [Catalytic activity/Vol] 74 U/L 35-104 [facility] Serum or plasma calcium sarbjit urement (mass/volume)Ordered By: Corby Heller on 12-18-2024 Calcium [Mass/Vol] 9.8 mg/dL 7.6-11.0 [facility] Serum or plasma urea nitroge n measurement (mass/volume)Ordered By: Corby Heller on 12-18-2024 Urea nitrogen [Mass/Vol] 34 mg/dL High 4-19 [facility] Sodium levelOrdered By: Corby Heller on 12-18-2024 Sodium [Moles/Vol] 138 mmol/L 133-145 [facility] Total proteinOrdered By: Corby Heller on 12-18-2024 Protein [Mass/Vol] 7.9 g/dL 5.9-8.4 [facility] Urine cultureOrdered By: Corby Heller on 12-18-2024 Bacteria identified Cx Nom (U) ESBL Klebsiella pneumoniae pne Abnormal [facility] Bacteria identified Cx Nom (U) Escherichia coli Abnormal [facility] White blood cell (WBC) count Ordered By: Corby Heller on 12-18-2024 WBC (Bld) [#/Vol] 9.0 10*3/uL 4.4-11.0 [facility] Urine Cultureon 11-26-2024 URC Normal [facility] Comment on above: Performed By: #### M 100.0853 ####[facility] [address] [place], [place], [id number] Absolute lymphocyte countOrd ered By: Corby Heller on 11-23-2024 Lymphocytes Auto (Unsp spec) [#/Vol] 2.13 10*3/uL 0.83-4.51 [facility] Absolute neutrophil countOrd ered By: Corby Heller on 11-23-2024 Neutrophils (Bld) [#/Vol] 5.3 10*3/uL 2.0-7.7 [facility] Automated lymphocyte count a s percentage of total leukocytesOrdered By: Corby Heller on 11-23-2024 Lymphocytes/100 WBC Auto (Unsp spec) 25.3 % 19- [facility] BUN/creatinine ratioOrdered By: Corby Heller on 11-23-2024 Urea nitrogen/Creatinine [Mass ratio] 28.7 mg/mg High 10-20 [facility] Basophil percentageOrdered B y: Corby Heller on 11-23-2024 Basophils/100 WBC (Bld) 0.6 % 0-1 [facility] Bilirubin, totalOrdered By: Corby Heller on 11-23-2024 Bilirubin [Mass/Vol] 0.25 mg/dL 0.00-1.30 [facility] CBC W/Diff, Automatedon 10-29 Absolute Lymph 2.13 X10 3/uL Normal 0.83-4.51 [facility] Comment on above: Performed By: #### L 506.1001, L501.9520, L100.0100, L500.4050 ####[facility] [address] [place], [address] Absolute Neut 5.3 X10 3/uL Normal 2.0-7.7 [facility] Comment on above: Performed By: #### L 506.1001, L501.9520, L100.0100, L500.4050 ####[facility] [address] [place], [address] Basophils/100 WBC (Bld) 0.6 % Normal 0-1 [facility] Comment on above: Performed By: #### L 506.1001, L501.9520, L100.0100, L500.4050 ####[facility] [address] [place], [address] Eosinophils/100 WBC (Bld) 2.5 % Normal 0-5 [facility] Comment on above: Performed By: #### L 506.1001, L501.9520, L100.0100, L500.4050 ####[facility] [address] [place], [address] Erythrocyte distribution width (RBC) [Ratio] 14.6 % Normal 11.6-14.6 [facility] Comment on above: Performed By: #### L 506.1001, L501.9520, L100.0100, L500.4050 ####[facility] [address] [place], [address] Hematocrit (Bld) [Volume fraction] 33.7 % Low 37-47 [facility] Comment on above: Performed By: #### L 506.1001, L501.9520, L100.0100, L500.4050 ####[facility] [address] [place], [address] Hemoglobin (Bld) [Mass/Vol] 10.5 g/dL Low 12.0-15.0 [facility] Comment on above: Performed By: #### L 506.1001, L501.9520, L100.0100, L500.4050 ####[facility] [address] [place], [address] IG% 0.600 Normal 0.0-0.9 [facility] Comment on above: Result Comment: IG% - Immature Granulocytes (promyelocytes, myelocytes andmetamyelocytes) > 1% indicates that a LEFT SHIFT is Present. Performed By: #### L 506.1001, L501.9520, L100.0100, L500.4050 ####[facility] [address] [place], [address] Lymphocytes/100 WBC (Bld) 25.3 % Normal 19-41 [facility] Comment on above: Performed By: #### L 506.1001, L501.9520, L100.0100, L500.4050 ####[facility] [address] [place], [address] MCH (RBC) [Entitic mass] 30.3 pg Normal 27.0-32.0 [facility] Comment on above: Performed By: #### L 506.1001, L501.9520, L100.0100, L500.4050 ####[facility] [address] [place], [address] MCHC (RBC) [Mass/Vol] 31.2 g/dL Low 32-36 [facility] Comment on above: Performed By: #### L 506.1001, L501.9520, L100.0100, L500.4050 ####[facility] [address] [place], [address] MCV (RBC) [Entitic vol] 97.1 fL Normal 81-99 [facility] Comment on above: Performed By: #### L 506.1001, L501.9520, L100.0100, L500.4050 ####[facility] [address] [place], [address] Monocytes/100 WBC (Bld) 8.1 % Normal 0-10 [facility] Comment on above: Performed By: #### L 506.1001, L501.9520, L100.0100, L500.4050 ####[facility] [address] [place], [address] Neutrophils/100 WBC (Bld) 62.9 % Normal 47-70 [facility] Comment on above: Performed By: #### L 506.1001, L501.9520, L100.0100, L500.4050 ####[facility] [address] [place], [address] Nucleated RBC (Bld) [#/Vol] 0 10*3/uL Normal 0-5 [facility] Comment on above: Performed By: #### L 506.1001, L501.9520, L100.0100, L500.4050 ####[facility] [address] [place], [address] Platelet mean volume (Bld) [Entitic vol] 9.5 fL Normal 6.2-12.0 [facility] Comment on above: Performed By: #### L 506.1001, L501.9520, L100.0100, L500.4050 ####[facility] [address] [place], [address] Platelets (Bld) [#/Vol] 231 10*3/uL Normal 150-450 [facility] Comment on above: Performed By: #### L 506.1001, L501.9520, L100.0100, L500.4050 ####[facility] [address] [place], [address] RBC (Bld) [#/Vol] 3.47 10*6/uL Low 4.2-5.4 [facility] Comment on above: Performed By: #### L 506.1001, L501.9520, L100.0100, L500.4050 ####[facility] [address] [place], [address] RDW SD 51.7 fl High 35.1-43.9 [facility] Comment on above: Performed By: #### L 506.1001, L501.9520, L100.0100, L500.4050 ####[facility] [address] [place], [address] WBC (Bld) [#/Vol] 8.4 10*3/uL Normal 4.4-11.0 [facility] Comment on above: Performed By: #### L 506.1001, L501.9520, L100.0100, L500.4050 ####[facility] [address] [place], [address] Carbon dioxide measurementOr dered By: Corby Heller on 11-23-2024 CO2 [Moles/Vol] 23.9 mmol/L 22.0-29.0 [facility] Chloride measurementOrdered By: Corby Heller on 11-23-2024 Chloride [Moles/Vol] 101 mmol/L 96-108 [facility] Comprehensive Metabolic Prof ilon 11-23-2024 Albumin [Mass/Vol] 3.7 g/dL Normal 3.4-4.8 [facility] Comment on above: Performed By: #### L 506.1001, L501.9520, L100.0100, L500.4050 ####[facility] [address] [place], [address] Albumin/Globulin [Mass ratio] 0.9 {ratio} Normal 0.9-2.4 [facility] Comment on above: Performed By: #### L 506.1001, L501.9520, L100.0100, L500.4050 ####[facility] [address] [place], [address] ALK PHOS 77 U/L Normal 35-104 [facility] Comment on above: Performed By: #### L 506.1001, L501.9520, L100.0100, L500.4050 ####[facility] [address] [place], [address] ALT [Catalytic activity/Vol] 12 U/L Normal <=34 [facility] Comment on above: Result Comment: Hemo lysis present, Results??could be affected.?? Performed By: #### L 506.1001, L501.9520, L100.0100, L500.4050 ####[facility] [address] [place], [address] Anion gap [Moles/Vol] 12 mmol/L Normal 5-15 [facility] Comment on above: Performed By: #### L 506.1001, L501.9520, L100.0100, L500.4050 ####[facility] [address] [place], [address] AST [Catalytic activity/Vol] 32 U/L Normal <=31 [facility] Comment on above: Result Comment: Hemo lysis present, Results??could be affected.?? Performed By: #### L 506.1001, L501.9520, L100.0100, L500.4050 ####[facility] [address] [place], [address] Bilirubin [Mass/Vol] 0.25 mg/dL Normal 0.00-1.30 [facility] Comment on above: Performed By: #### L 506.1001, L501.9520, L100.0100, L500.4050 ####[facility] [address] [place], [address] BUN/CRE 28.7 RATIO High 10-20 [facility] Comment on above: Performed By: #### L 506.1001, L501.9520, L100.0100, L500.4050 ####[facility] [address] [place], [address] Calcium [Mass/Vol] 9.7 mg/dL Normal 7.6-11.0 [facility] Comment on above: Performed By: #### L 506.1001, L501.9520, L100.0100, L500.4050 ####[facility] [address] [place], [address] Chloride [Moles/Vol] 101 mmol/L Normal 96-108 [facility] Comment on above: Performed By: #### L 506.1001, L501.9520, L100.0100, L500.4050 ####[facility] [address] [place], [address] CO2 [Moles/Vol] 23.9 mmol/L Normal 22.0-29.0 [facility] Comment on above: Performed By: #### L 506.1001, L501.9520, L100.0100, L500.4050 ####[facility] [address] [place], [address] Creatinine [Mass/Vol] 1.4 mg/dL High 0.6-1.0 [facility] Comment on above: Performed By: #### L 506.1001, L501.9520, L100.0100, L500.4050 ####[facility] [address] [place], [address] GFR/1.73 sq M.predicted among non-blacks MDRD (S/P/Bld) [Vol rate/Area] 41 mL/min/{1.73_m2} Low >60 [facility] Comment on above: Result Comment: mL/m in/1.73m2 CKD-EPI Creatinine Equation (2020) Performed By: #### L 506.1001, L501.9520, L100.0100, L500.4050 ####[facility] [address] [place], [address] Globulin (S) [Mass/Vol] 4.0 g/dL Normal 2.2-4.2 [facility] Comment on above: Performed By: #### L 506.1001, L501.9520, L100.0100, L500.4050 ####[facility] [address] [place], [address] Glucose [Mass/Vol] 166 mg/dL High 70-99 [facility] Comment on above: Performed By: #### L 506.1001, L501.9520, L100.0100, L500.4050 ####[facility] [address] [place], [address] Potassium [Moles/Vol] 5.3 mmol/L High 3.3-5.1 [facility] Comment on above: Result Comment: Hemo lysis present, Results??could be affected.?? Performed By: #### L 506.1001, L501.9520, L100.0100, L500.4050 ####[facility] [address] [place], [address] Sodium [Moles/Vol] 137 mmol/L Normal 133-145 [facility] Comment on above: Performed By: #### L 506.1001, L501.9520, L100.0100, L500.4050 ####[facility] [address] [place], [address] T PROT 7.7 g/dL Normal 5.9-8.4 [facility] Comment on above: Performed By: #### L 506.1001, L501.9520, L100.0100, L500.4050 ####[facility] [address] [place], [address] Urea nitrogen [Mass/Vol] 39 mg/dL High 4-19 [facility] Comment on above: Performed By: #### L 506.1001, L501.9520, L100.0100, L500.4050 ####[facility] [address] [place], [address] Creatinine [Moles/Vol]Ordere d By: Corby Heller on 11-23-2024 Creatinine [Mass/Vol] 1.4 mg/dL High 0.6-1.0 [facility] Eosinophil percentageOrdered By: Corby Heller on 11-23-2024 Eosinophils/100 WBC (Bld) 2.5 % 0-5 [facility] Erythrocyte distribution wid th ratioOrdered By: Corby Heller on 11-23-2024 Erythrocyte distribution width (RBC) [Ratio] 14.6 % 11.6-14.6 [facility] Erythrocyte distribution wid th standard deviationOrdered By: Corby Heller on 11-23-2024 Erythrocyte distribution width (RBC) [Entitic vol] 51.7 fL High 35.1-43.9 [facility] Erythrocyte distribution width (RBC) [Ratio] 51.7 fl High 35.1-43.9 [facility] GFR/1.73 sq M.predicted kyle g non-blacks MDRD (S/P/Bld) [Vol rate/Area]Ordered By: Corby Heller on 11-23-2024 Estimated GFR (MDRD) Non-Af Amer 41 Low >60 [facility] Comment on above: mL/min/1.73m2 CKD-EP I Creatinine Equation (2020) Glomerular filtration rate ( GFR) estimation/1.73 sq m using serum, plasma, or whole bOrdered By: Corby Heller on 11-23-2024 GFR/1.73 sq M.predicted among non-blacks MDRD (S/P/Bld) [Vol rate/Area] 41 mL/min/{1.73_m2} Low >60 [facility] Comment on above: mL/min/1.73m2 CKD-EP I Creatinine Equation (2020) Hematocrit Auto (Bld) [Volum e fraction]Ordered By: Corby Heller on 11-23-2024 Hematocrit (Bld) [Volume fraction] 33.7 % Low 37-47 [facility] Hemoglobin measurementOrdere d By: Corby Heller 11-23-2024 Hemoglobin (Bld) [Mass/Vol] 10.5 g/dL Low 12.0-15.0 [facility] Immature granulocytes/100 WB C Auto (Bld)Ordered By: Corby Heller 11-23-2024 Immature granulocytes/100 WBC (Bld) 0.600 % 0.0-0.9 [facility] Comment on above: IG% - Immature Granu locytes (promyelocytes, myelocytes and metamyelocytes) > 1% indicates that a LEFT SHIFT is Present. L506.1001on 11-23-2024 Vitamin D 25-OH 40.8 ng/mL Normal 30-100 [facility] Comment on above: Result Comment: Danelle min D StatusDeficiency: <20 ng/mL (50nmol/L)Insufficiency: 20-30 ng/mL (50-75 nmol/L)Sufficiency: 30-100 ng/mL (75-250 nmol/L)Toxicity: >100 ng/mL (>250 nmol/L) Performed By: #### L 506.1001, L501.9520, L100.0100, L500.4050 ####[facility] [address] [place], [address] Laboratory - Chemistry and C hemistry - challengeOrdered By: Corby Heller on 11-23-2024 AST [Catalytic activity/Vol] 32 U/L <32 [facility] Comment on above: Hemolysis present, R esults could be affected. Lymphocytes Auto (Unsp spec) [#/Vol]Ordered By: [facility] 11-23-2024 Lymphocytes (Bld) [#/Vol] 2.13 10*3/uL 0.83-4.51 [facility] Lymphocytes/100 WBC Auto (Un sp spec)Ordered By: Corby Heller on 11-23-2024 Lymphocytes/100 WBC (Bld) 25.3 % 19-41 [facility] MCV (mean corpuscular volume ) determinationOrdered By: Croby Heller on 11-23-2024 MCV (RBC) [Entitic vol] 97.1 fL 81-99 [facility] Mean corpuscular hemoglobin (MCH) determinationOrdered By: Corby Heller 11-23-2024 MCH (RBC) [Entitic mass] 30.3 pg 27.0-32.0 [facility] Mean corpuscular hemoglobin concentration (MCHC) determinationOrdered By: Corby Heller 11-23-2024 MCHC (RBC) [Mass/Vol] 31.2 g/dL Low 32-36 [facility] Mean platelet volume determi nationOrdered By: Corby Heller on 11-23-2024 Platelet mean volume (Bld) [Entitic vol] 9.5 fL 6.2-12.0 [facility] Monocyte percentageOrdered B y: Corby Heller on 11-23-2024 Monocytes/100 WBC (Bld) 8.1 % 0-10 [facility] Neutrophil percentageOrdered By: Corby Heller on 11-23-2024 Neutrophils/100 WBC (Bld) 62.9 % 47-70 [facility] No Panel InformationOrdered By: Corby Heller on 11-23-2024 Vitamin D 25-Hydroxy 40.8 ng/mL 30-100 [facility] Comment on above: Vitamin D StatusDefi ciency: <20 ng/mL (50nmol/L)Insufficiency: 20-30 ng/mL (50-75 nmol/L)Sufficiency: 30-100 ng/mL (75-250 nmol/L)Toxicity: >100 ng/mL (>250 nmol/L) Nucleated red blood cell per centageOrdered By: Corby Heller on 11-23-2024 Nucleated RBC/100 WBC (Bld) [Ratio] 0 % 0-5 [facility] Platelet countOrdered By: Ryder Heller on 11-23-2024 Platelets (Bld) [#/Vol] 231 10*3/uL 150-450 [facility] RBC Auto (Bld) [#/Vol]Ordere d By: Corby Heller on 11-23-2024 RBC (Bld) [#/Vol] 3.47 10*6/uL Low 4.2-5.4 [facility] Serum globulin measurementOr dered By: Corby Heller 11-23-2024 Globulin (S) [Mass/Vol] 4.0 g/dL 2.2-4.2 [facility] Serum glucose measurement (m ass/volume)Ordered By: Corby Heller 11-23-2024 Glucose [Mass/Vol] 166 mg/dL High 70-99 [facility] Serum or plasma alanine saldana otransferase (ALT) measurementOrdered By: oCrby Heller 11-23-2024 ALT [Catalytic activity/Vol] 12 U/L <35 [facility] Comment on above: Hemolysis present, R esults could be affected. Serum or plasma albumin sarbjit urement (mass/volume)Ordered By: Corby Heller on 11-23-2024 Albumin [Mass/Vol] 3.7 g/dL 3.4-4.8 [facility] Serum or plasma albumin/glob ulin mass ratioOrdered By: Corby Heller 11-23-2024 Albumin/Globulin [Mass ratio] 0.9 {ratio} 0.9-2.4 [facility] Serum or plasma alkaline louie sphatase measurementOrdered By: Corby Heller 11-23-2024 ALP [Catalytic activity/Vol] 77 U/L 35-104 [facility] Serum or plasma anion gap de termination (moles/volume)Ordered By: Corby Heller on 11-23-2024 Anion gap [Moles/Vol] 12 mmol/L 5-15 [facility] Serum or plasma calcium sarbjit urement (mass/volume)Ordered By: Corby Heller on 11-23-2024 Calcium [Mass/Vol] 9.7 mg/dL 7.6-11.0 [facility] Serum or plasma creatinine m easurement (moles/volume)Ordered By: Corby Heller on 11-23-2024 Creatinine [Moles/Vol] 1.4 mg/dL High 0.6-1.0 [facility] Serum or plasma potassium me asurementOrdered By: Corby Heller on 11-23-2024 Potassium [Moles/Vol] 5.3 mmol/L High 3.3-5.1 [facility] Comment on above: Hemolysis present, R esults could be affected. Serum or plasma sodium measu rement (moles/volume)Ordered By: Corby Heller on 11-23-2024 Sodium [Moles/Vol] 137 mmol/L 133-145 [facility] Serum or plasma urea nitroge n measurement (mass/volume)Ordered By: Corby Heller on 11-23-2024 Urea nitrogen [Mass/Vol] 39 mg/dL High 4-19 [facility] TSH DL <= 0.005 mIU/L QnOrde red By: Corby Heller on 11-23-2024 Thyroid Stimulating Hormone (TSH) 5.760 uIU/mL High 0.300-4.20 0 [facility] TSH Qn 5.760 uIU/mL High 0.300-4.20 0 [facility] Thyroid Stim Hormone (TSH)on 11-23-2024 TSH 5.760 uIU/mL High 0.300-4.20 0 [facility] Comment on above: Performed By: #### L 506.1001, L501.9520, L100.0100, L500.4050 ####[facility] [address] [place], [place], [id number] Total proteinOrdered By: Corby Heller on 11-23-2024 Protein [Mass/Vol] 7.7 g/dL 5.9-8.4 [facility] Urine cultureOrdered By: Corby Heller on 11-23-2024 Bacteria identified Cx Nom (U) ESBL Klebsiella pneumoniae pne Abnormal [facility] White blood cell (WBC) count Ordered By: Corby Heller on 11-23-2024 WBC (Bld) [#/Vol] 8.4 10*3/uL 4.4-11.0 [facility] Abdomen Single Viewon 2023 Abdomen Single View Normal [facility] Abdomen/Pelvis without Conto n 08-25-2024 Abdomen/Pelvis without Cont Normal [facility] Orthopedic Visit Reporton Orthopedic Visit Report Normal [facility] Orthopedic Visit Reporton Orthopedic Visit Report Normal [facility] Orthopedic Visit Reporton Orthopedic Visit Report Normal [facility] [id number] 07-18-2024 VIT D,25 HYDROX 34.6 ng/mL Normal 30.0-100.0 [facility] Comment on above: Order Comment: Speci men Comment: A duplicate report has been generateddue to demographicSpecimen Comment: updates. Result Comment: Danelle min D deficiency has been defined by the [place] [facility] and an Endocrine Society practice guideline as alevel of serum 25-OH vitamin D less than 20 ng/mL (1,2).The Endocrine Society went on to further define vitamin Dinsufficiency as a level between 21 and 29 ng/mL (2).1. IOM ([place] of Medicine). 2010. Dietary reference intakes for calcium and D. [place]: The National Academies Press.2. Blanca MF, Tessa NC, Eliza CORDON, et al. Evaluation, treatment, and prevention of vitamin D deficiency: an Endocrine Society clinical practice guideline. JCEM. 2010; 96(7):1911-30.Performed at: [address] [id number] Director: Matt Mcqueen PhD, Phone: [phone] Performed By: #### M 100.2200, L501.1037, L500.4050, L100.0100, L3300.0940 ####[facility] [address] [place], [address] Urine Cultureon 07-14-2024 URC Normal [facility] Comment on above: Performed By: #### M 100.2200, L501.9520, L500.4050, L100.0100, L3300.0940 ####[facility] [address] [place], [address] CBC W/Diff, Automatedon 06-27 Absolute Lymph 2.03 X10 3/uL Normal 0.83-4.51 [facility] Comment on above: Performed By: #### M 100.2200, L501.9520, L500.4050, L100.0100, L3300.0940 ####[facility] [address] [place], [address] Absolute Neut 6.5 X10 3/uL Normal 2.0-7.7 [facility] Comment on above: Performed By: #### M 100.2200, L501.9520, L500.4050, L100.0100, L3300.0940 ####[facility] [address] [place], [address] Basophils/100 WBC (Bld) 0.4 % Normal 0-1 [facility] Comment on above: Performed By: #### M 100.2200, L501.9520, L500.4050, L100.0100, L3300.0940 ####[facility] [address] [place], [address] Eosinophils/100 WBC (Bld) 2.7 % Normal 0-5 [facility] Comment on above: Performed By: #### M 100.2200, L501.9520, L500.4050, L100.0100, L3300.0940 ####[facility] [address] [place], [address] Erythrocyte distribution width (RBC) [Ratio] 14.7 % High 11.6-14.6 [facility] Comment on above: Performed By: #### M 100.2200, L501.9520, L500.4050, L100.0100, L3300.0940 ####[facility] [address] [place], [address] Hematocrit (Bld) [Volume fraction] 34.5 % Low 37-47 [facility] Comment on above: Performed By: #### M 100.2200, L501.9520, L500.4050, L100.0100, L3300.0940 ####[facility] [address] [place], [address] Hemoglobin (Bld) [Mass/Vol] 10.6 g/dL Low 12.0-15.0 [facility] Comment on above: Performed By: #### M 100.2200, L501.9520, L500.4050, L100.0100, L3300.0940 ####[facility] [address] [place], [address] IG% 0.500 Normal 0.0-0.9 [facility] Comment on above: Result Comment: IG% - Immature Granulocytes (promyelocytes, myelocytes andmetamyelocytes) > 1% indicates that a LEFT SHIFT is Present. Performed By: #### M 100.2200, L501.9520, L500.4050, L100.0100, L3300.0940 ####[facility] [address] [place], [address] Lymphocytes/100 WBC (Bld) 21.0 % Normal 19-41 [facility] Comment on above: Performed By: #### M 100.2200, L501.9520, L500.4050, L100.0100, L3300.0940 ####[facility] [address] [place], [address] MCH (RBC) [Entitic mass] 29.3 pg Normal 27.0-32.0 [facility] Comment on above: Performed By: #### M 100.2200, L501.9520, L500.4050, L100.0100, L3300.0940 ####[facility] [address] [place], [address] MCHC (RBC) [Mass/Vol] 30.7 g/dL Low 32-36 [facility] Comment on above: Performed By: #### M 100.2200, L501.9520, L500.4050, L100.0100, L3300.0940 ####[facility] [address] [place], [address] MCV (RBC) [Entitic vol] 95.3 fL Normal 81-99 [facility] Comment on above: Performed By: #### M 100.2200, L501.9520, L500.4050, L100.0100, L3300.0940 ####[facility] [address] [place], [address] Monocytes/100 WBC (Bld) 8.1 % Normal 0-10 [facility] Comment on above: Performed By: #### M 100.2200, L501.9520, L500.4050, L100.0100, L3300.0940 ####[facility] [address] [place], [address] Neutrophils/100 WBC (Bld) 67.3 % Normal 47-70 [facility] Comment on above: Performed By: #### M 100.2200, L501.9520, L500.4050, L100.0100, L3300.0940 ####[facility] [address] [place], [address] Nucleated RBC (Bld) [#/Vol] 0 10*3/uL Normal 0-5 [facility] Comment on above: Performed By: #### M 100.2200, L501.9520, L500.4050, L100.0100, L3300.0940 ####[facility] [address] [place], [address] Platelet mean volume (Bld) [Entitic vol] 9.7 fL Normal 6.2-12.0 [facility] Comment on above: Performed By: #### M 100.2200, L501.9520, L500.4050, L100.0100, L3300.0940 ####[facility] [facility] [address] [place], [address] Platelets (Bld) [#/Vol] 196 10*3/uL Normal 150-450 [facility] Comment on above: Performed By: #### M 100.2200, L501.9520, L500.4050, L100.0100, L3300.0940 ####[facility] [address] [place], [address] RBC (Bld) [#/Vol] 3.62 10*6/uL Low 4.2-5.4 [facility] Comment on above: Performed By: #### M 100.2200, L501.9520, L500.4050, L100.0100, L3300.0940 ####[facility] [address] [place], [address] RDW SD 51.9 fl High 35.1-43.9 [facility] Comment on above: Performed By: #### M 100.2200, L501.9520, L500.4050, L100.0100, L3300.0940 ####[facility] [address] [place], [address] WBC (Bld) [#/Vol] 9.7 10*3/uL Normal 4.4-11.0 [facility] Comment on above: Performed By: #### M 100.2200, L501.9520, L500.4050, L100.0100, L3300.0940 ####[facility] [address] [place], [address] Comprehensive Metabolic Prof ilon 07-12-2024 Albumin [Mass/Vol] 3.1 g/dL Low 3.2-5.0 [facility] Comment on above: Performed By: #### M 100.2200, L501.9520, L500.4050, L100.0100, L3300.0940 ####[facility] [address] [place], [address] Albumin/Globulin [Mass ratio] 0.7 {ratio} Low 0.9-2.4 [facility] Comment on above: Performed By: #### M 100.2200, L501.9520, L500.4050, L100.0100, L3300.0940 ####[facility] [address] [place], [address] ALK P 74 U/L Normal 45-117 [facility] Comment on above: Performed By: #### M 100.2200, L501.9520, L500.4050, L100.0100, L3300.0940 ####[facility] [address] [place], [address] ALT [Catalytic activity/Vol] 11 U/L Low 13-56 [facility] Comment on above: Performed By: #### M 100.2200, L501.9520, L500.4050, L100.0100, L3300.0940 ####[facility] [address] [place], [address] AST [Catalytic activity/Vol] 12 U/L Low 15-37 [facility] Comment on above: Performed By: #### M 100.2200, L501.9520, L500.4050, L100.0100, L3300.0940 ####[facility] [address] [place], [address] Bilirubin [Mass/Vol] 0.40 mg/dL Normal 0.20-1.00 [facility] Comment on above: Result Comment: For patients on eltrombopag therapy, use of Dimension Wisner TBIL is not recommended. Performed By: #### M 100.2200, L501.9520, L500.4050, L100.0100, L3300.0940 ####[facility] [address] [place], [address] BUN/CRE 20.3 RATIO High 10-20 [facility] Comment on above: Performed By: #### M 100.2200, L501.9520, L500.4050, L100.0100, L3300.0940 ####[facility] [address] [place], [address] CA,Total 9.2 mg/dL Normal 8.5-10.1 [facility] Comment on above: Performed By: #### M 100.2200, L501.9520, L500.4050, L100.0100, L3300.0940 ####[facility] [address] [place], [address] Chloride [Moles/Vol] 107 mmol/L Normal 98-107 [facility] Comment on above: Performed By: #### M 100.2200, L501.9520, L500.4050, L100.0100, L3300.0940 ####[facility] [address] [place], [address] CO2 [Moles/Vol] 25.0 mmol/L Normal 21.0-32.0 [facility] Comment on above: Performed By: #### M 100.2200, L501.9520, L500.4050, L100.0100, L3300.0940 ####[facility] [address] [place], [place], [address] Creatinine [Mass/Vol] 1.33 mg/dL High 0.55-1.02 [facility] Comment on above: Result Comment: The validity of the calculated GFR GFRAA in patients over70 years has not been determined. Clinical correlation isessential. Performed By: #### M 100.2200, L501.9520, L500.4050, L100.0100, L3300.0940 ####[facility] [address] [place], [address] EST GFR - AA 50 mL/min Low >60 [facility] Comment on above: Result Comment: Afri can Algerian GFR Calc Performed By: #### M 100.2200, L501.9520, L500.4050, L100.0100, L3300.0940 ####[facility] [address] [place], [address] GAP 7 Normal 5-15 [facility] Comment on above: Performed By: #### M 100.2200, L501.9520, L500.4050, L100.0100, L3300.0940 ####[facility] [address] [place], [place], [address] GFR/1.73 sq M.predicted among non-blacks MDRD (S/P/Bld) [Vol rate/Area] 41 mL/min/{1.73_m2} Low >60 [facility] Comment on above: Result Comment: Non- GFR Calc Performed By: #### M 100.2200, L501.9520, L500.4050, L100.0100, L3300.0940 ####[facility] [address] [place], [address] Globulin (S) [Mass/Vol] 4.5 g/dL High 2.2-4.2 [facility] Comment on above: Performed By: #### M 100.2200, L501.9520, L500.4050, L100.0100, L3300.0940 ####[facility] [address] [place], [address] Glucose [Mass/Vol] 113 mg/dL High 74-106 [facility] Comment on above: Result Comment: Fast ing Glucose result from 100 to 125 mg/dLsuggests IMPAIRED HOMEOSTASIS per A.D.A. criteria. Performed By: #### M 100.2200, L501.9520, L500.4050, L100.0100, L3300.0940 ####[facility] [address] [place], [address] Potassium [Moles/Vol] 5.0 mmol/L Normal 3.5-5.1 [facility] Comment on above: Performed By: #### M 100.2200, L501.9520, L500.4050, L100.0100, L3300.0940 ####[facility] [address] [place], [address] Sodium [Moles/Vol] 139 mmol/L Normal 136-145 [facility] Comment on above: Performed By: #### M 100.2200, L501.9520, L500.4050, L100.0100, L3300.0940 ####[facility] [address] [place], [address] T PROT 7.6 g/dL Normal 6.4-8.2 [facility] Comment on above: Performed By: #### M 100.2200, L501.9520, L500.4050, L100.0100, L3300.0940 ####[facility] [address] [place], [address] Urea nitrogen [Mass/Vol] 27 mg/dL High 7-18 [facility] Comment on above: Performed By: #### M 100.2200, L501.9520, L500.4050, L100.0100, L3300.0940 ####[facility] [address] [place], [address] Thyroid Stim Hormone (TSH)on 07-12-2024 TSH 2.330 uIU/mL Normal 0.358-3.74 0 [facility] Comment on above: Performed By: #### M 100.2200, L501.9520, L500.4050, L100.0100, L3300.0940 ####[facility] [address] [place], [address] M100.678on 06-28-2024 M100.678 Pending SARS-CoV-2 (COVID 19) Negative INFLUENZA A Negative INFLUENZA B Negative RSV PCR Negative Normal [facility] Comment on above: Performed By: #### M 100.678 ####[facility] [address] [place], [address] Abdomen/Pelvis without Conto n 06-22-2024 Abdomen/Pelvis without Cont Normal [facility] Orthopedic Visit Reporton Orthopedic Visit Report Normal [facility] Calculi, Urinary w / Photoon 06-13-2024 . Comment Normal . [facility] Comment on above: Result Comment: Perc entage (Represents the % composition) Performed By: #### L 3649.0100 ####[facility] [address] [place], [address] AMM ACID URATE TNP Normal . [facility] Comment on above: Performed By: #### L 3649.0100 ####[facility] [address] [place], [address] CA BILIRUBINATE TNP Normal . [facility] Comment on above: Performed By: #### L 3649.0100 ####[facility] [address] [place], [address] CA CARBONATE TNP Normal . [facility] Comment on above: Performed By: #### L 0.0100 ####[facility] [address] [place], [address] CA HYDROG PHOS TNP Normal . [facility] Comment on above: Performed By: #### L 3650.0100 ####[facility] [address] [place], [address] CA OXAL DIHYDR 20 Normal . [facility] Comment on above: Performed By: #### L 3650.0100 ####[facility] [address] [place], [address] CA OXAL MONOHYD 80 Normal . [facility] Comment on above: Performed By: #### L 0.0100 ####[facility] [address] [place], [address] CA PHOSPHATE TNP Normal . [facility] Comment on above: Performed By: #### L 0.0100 ####[facility] [address] [place], [address] CELL MATERIAL TNP Normal . [facility] Comment on above: Performed By: #### L 0.0100 ####[facility] [address] [place], [address] CHOLESTEROL TNP Normal . [facility] Comment on above: Performed By: #### L 0.0100 ####[facility] [address] [place], [address] Color (U) Montes Normal . [facility] Comment on above: Performed By: #### L 3650.0100 ####[facility] [address] [place], [address] COMMENT TNP Normal . [facility] Comment on above: Performed By: #### L 0.0100 ####[facility] [address] [place], [address] COMMENT Comment Normal . [facility] Comment on above: Result Comment: Phys ician questions regarding Calculi Analysis [facility] at: [phone]. Performed By: #### L 3650.0100 ####[facility] [address] [place], [address] Result Comment: Calc dorian report will follow via computer, mail or courierdelivery. CYSTINE TNP Normal . [facility] Comment on above: Performed By: #### L 0.0100 ####[facility] [address] [place], [address] Disclaimer Comment Normal . [facility] Comment on above: Result Comment: This test was developed and its performance characteristicsdetermined by [employer]. It has not been cleared or approvedby the Food and Drug Administration.Performed at: [address] [id number] Director: Nida Mayer PhD, Phone: [phone] Performed By: #### L 0.0100 ####[facility] [address] [place], [address] DRIED BLOOD TNP Normal . [facility] Comment on above: Performed By: #### L 3649.0100 ####[facility] [address] [place], [address] MAG ANA PHOS TNP Normal . [facility] Comment on above: Performed By: #### L 0.0100 ####[facility] [address] [place], [address] NA ACID URATE TNP Normal . [facility] Comment on above: Performed By: #### L 0.0100 ####[facility] [address] [place], [address] NEWBERYITE TNP Normal . [facility] Comment on above: Performed By: #### L 3650.0100 ####[facility] [address] [place], [address] PHOTO Comment Normal . [facility] Comment on above: Result Comment: Yoandy gibbons will follow under a separate cover Performed By: #### L 3650.0100 ####[facility] [address] [place], [address] SIZE 4x3 Normal . [facility] Comment on above: Result Comment: Mult iple pieces received. Dimensions of the largest piecereported. Performed By: #### L 3650.0100 ####[facility] [address] [place], [address] SOURCE Kidney Normal . [facility] Comment on above: Performed By: #### L 0.0100 ####[facility] [address] [place], [address] TRIAMTERENE TNP Normal . [facility] Comment on above: Performed By: #### L 0.0100 ####[facility] [address] [place], [address] URIC ACID TNP Normal . [facility] Comment on above: Performed By: #### L 0.0100 ####[facility] [address] [place], [address] URIC ACID DIHYD TNP Normal . [facility] Comment on above: Performed By: #### L 3650.0100 ####[facility] [address] [place], [address] WEIGHT 50 mg Normal . [facility] Comment on above: Performed By: #### L 3650.0100 ####[facility] [address] [place], [address] Basic Metabolic Profile (BMP )on 06-01-2024 BUN/CRE 19.6 RATIO Normal 10-20 [facility] Comment on above: Performed By: #### L 100.0500, L500.2500 ####[facility] [address] [place], [address] CA,Total 9.8 mg/dL Normal 8.5-10.1 [facility] Comment on above: Performed By: #### L 100.0500, L500.2500 ####[facility] [address] [place], [address] Chloride [Moles/Vol] 106 mmol/L Normal 98-107 [facility] Comment on above: Performed By: #### L 100.0500, L500.2500 ####[facility] [address] [place], [address] CO2 [Moles/Vol] 24.0 mmol/L Normal 21.0-32.0 [facility] Comment on above: Performed By: #### L 100.0500, L500.2500 ####[facility] [address] [place], [address] Creatinine [Mass/Vol] 1.53 mg/dL High 0.55-1.02 [facility] Comment on above: Result Comment: The validity of the calculated GFR GFRAA in patients over70 years has not been determined. Clinical correlation isessential. Performed By: #### L 100.0500, L500.2500 ####[facility] [address] [place], [address] ECRCL 38.15 ml/min Normal [facility] Comment on above: Performed By: #### L 100.0500, L500.2500 ####[facility] [address] [place], [address] EST GFR - AA 43 mL/min Low >60 [facility] Comment on above: Result Comment: Afri can Algerian GFR Calc Performed By: #### L 100.0500, L500.2500 ####[facility] [address] [place], [address] GAP 7 Normal 5-15 [facility] Comment on above: Performed By: #### L 100.0500, L500.2500 ####[facility] [address] [place], [address] GFR/1.73 sq M.predicted among non-blacks MDRD (S/P/Bld) [Vol rate/Area] 35 mL/min/{1.73_m2} Low >60 [facility] Comment on above: Result Comment: Non- GFR Calc Performed By: #### L 100.0500, L500.2500 ####[facility] [address] [place], [address] Glucose [Mass/Vol] 117 mg/dL High 74-106 [facility] Comment on above: Result Comment: Fast ing Glucose result from 100 to 125 mg/dLsuggests IMPAIRED HOMEOSTASIS per A.D.A. criteria. Performed By: #### L 100.0500, L500.2500 ####[facility] [address] [place], [address] Potassium [Moles/Vol] 4.6 mmol/L Normal 3.5-5.1 [facility] Comment on above: Performed By: #### L 100.0500, L500.2500 ####[facility] [address] [place], [address] Sodium [Moles/Vol] 137 mmol/L Normal 136-145 [facility] Comment on above: Performed By: #### L 100.0500, L500.2500 ####[facility] [address] [place], [address] Urea nitrogen [Mass/Vol] 30 mg/dL High 7-18 [facility] Comment on above: Performed By: #### L 100.0500, L500.2500 ####[facility] [address] [place], [address] Bedside Glucoseon 06-01-2024 FINGERSTICK GLU 113 mg/dL High 74-106 [facility] Comment on above: Result Comment: MAHAD BUCKLEY OF PATIENT CARE PER NURSING PROTOCOL Performed By: #### L 501.080 ####[facility] [address] [place], [address] CBC-Complete Blood Cnt No Di ffon 06-01-2024 Erythrocyte distribution width (RBC) [Ratio] 14.9 % High 11.6-14.6 [facility] Comment on above: Performed By: #### L 100.0500, L500.2500 ####[facility] [address] [place], [address] Hematocrit (Bld) [Volume fraction] 32.6 % Low 37-47 [facility] Comment on above: Performed By: #### L 100.0500, L500.2500 ####[facility] [address] [place], [address] Hemoglobin (Bld) [Mass/Vol] 10.0 g/dL Low 12.0-15.0 [facility] Comment on above: Performed By: #### L 100.0500, L500.2500 ####[facility] [address] [place], [address] MCH (RBC) [Entitic mass] 29.4 pg Normal 27.0-32.0 [facility] Comment on above: Performed By: #### L 100.0500, L500.2500 ####[facility] [address] [place], [address] MCHC (RBC) [Mass/Vol] 30.7 g/dL Low 32-36 [facility] Comment on above: Performed By: #### L 100.0500, L500.2500 ####[facility] [address] [place], [address] MCV (RBC) [Entitic vol] 95.9 fL Normal 81-99 [facility] Comment on above: Performed By: #### L 100.0500, L500.2500 ####[facility] [address] [place], [address] Platelet mean volume (Bld) [Entitic vol] 9.3 fL Normal 6.2-12.0 [facility] Comment on above: Performed By: #### L 100.0500, L500.2500 ####[facility] [address] [place], [address] Platelets (Bld) [#/Vol] 232 10*3/uL Normal 150-450 [facility] Comment on above: Performed By: #### L 100.0500, L500.2500 ####[facility] [address] [place], [address] RBC (Bld) [#/Vol] 3.40 10*6/uL Low 4.2-5.4 [facility] Comment on above: Performed By: #### L 100.0500, L500.2500 ####[facility] [address] [place], [address] RDW SD 52.2 fl High 35.1-43.9 [facility] Comment on above: Performed By: #### L 100.0500, L500.2500 ####[facility] [address] [place], [address] WBC (Bld) [#/Vol] 8.7 10*3/uL Normal 4.4-11.0 [facility] Comment on above: Performed By: #### L 100.0500, L500.2500 ####[facility] [address] [place], [address] Discharge Instructionon 09-0 Discharge Instruction Normal [facility] MR/POSTOP.ANEon 06-01-2024 MR/POSTOP.ANE Normal [facility] MR/FQSOTKUR1jl 06-01-2024 MR/POSTOPAN2 Normal [facility] Operative Reporton Operative Report Normal [facility] Surgery Specimen Level Ion 0 06-01-2024 Surgery Specimen Level I Normal [facility] Comment on above: Performed By: #### P LIZY ####[facility] [address] [place], [address] Basic Metabolic Profile (BMP )on 05-24-2024 BUN/CRE 18.6 RATIO Normal 10-20 [facility] Comment on above: Performed By: #### L 100.0500, L500.2500 ####[facility] [address] [place], [address] CA,Total 9.2 mg/dL Normal 8.5-10.1 [facility] Comment on above: Performed By: #### L 100.0500, L500.2500 ####[facility] [address] [place], [address] Chloride [Moles/Vol] 105 mmol/L Normal 98-107 [facility] Comment on above: Performed By: #### L 100.0500, L500.2500 ####[facility] [address] [place], [address] CO2 [Moles/Vol] 25.0 mmol/L Normal 21.0-32.0 [facility] Comment on above: Performed By: #### L 100.0500, L500.2500 ####[facility] [address] [place], [address] Creatinine [Mass/Vol] 1.13 mg/dL High 0.55-1.02 [facility] Comment on above: Result Comment: The validity of the calculated GFR GFRAA in patients over70 years has not been determined. Clinical correlation isessential. Performed By: #### L 100.0500, L500.2500 ####[facility] [address] [place], [address] EST GFR - AA 60 mL/min Normal >60 [facility] Comment on above: Result Comment: Afri can Algerian GFR Calc Performed By: #### L 100.0500, L500.2500 ####[facility] [address] [place], [address] GAP 7 Normal 5-15 [facility] Comment on above: Performed By: #### L 100.0500, L500.2500 ####[facility] [facility] [address] [place], [address] GFR/1.73 sq M.predicted among non-blacks MDRD (S/P/Bld) [Vol rate/Area] 50 mL/min/{1.73_m2} Low >60 [facility] Comment on above: Result Comment: Non- GFR Calc Performed By: #### L 100.0500, L500.2500 ####[facility] [address] [place], [address] Glucose [Mass/Vol] 115 mg/dL High 74-106 [facility] Comment on above: Result Comment: Fast ing Glucose result from 100 to 125 mg/dLsuggests IMPAIRED HOMEOSTASIS per A.D.A. criteria. Performed By: #### L 100.0500, L500.2500 ####[facility] [address] [place], [address] Potassium [Moles/Vol] 4.1 mmol/L Normal 3.5-5.1 [facility] Comment on above: Performed By: #### L 100.0500, L500.2500 ####[facility] [address] [place], [address] Sodium [Moles/Vol] 137 mmol/L Normal 136-145 [facility] Comment on above: Performed By: #### L 100.0500, L500.2500 ####[facility] [address] [place], [address] Urea nitrogen [Mass/Vol] 21 mg/dL High 7-18 [facility] Comment on above: Performed By: #### L 100.0500, L500.2500 ####[facility] [address] [place], [address] CBC-Complete Blood Cnt No Di ffon 05-24-2024 Erythrocyte distribution width (RBC) [Ratio] 14.6 % Normal 11.6-14.6 [facility] Comment on above: Performed By: #### L 100.0500, L500.2500 ####[facility] [address] [place], [address] Hematocrit (Bld) [Volume fraction] 30.7 % Low 37-47 [facility] Comment on above: Performed By: #### L 100.0500, L500.2500 ####[facility] [address] [place], [address] Hemoglobin (Bld) [Mass/Vol] 9.5 g/dL Low 12.0-15.0 [facility] Comment on above: Performed By: #### L 100.0500, L500.2500 ####[facility] [address] [place], [address] MCH (RBC) [Entitic mass] 29.8 pg Normal 27.0-32.0 [facility] Comment on above: Performed By: #### L 100.0500, L500.2500 ####[facility] [address] [place], [address] MCHC (RBC) [Mass/Vol] 30.9 g/dL Low 32-36 [facility] Comment on above: Performed By: #### L 100.0500, L500.2500 ####[facility] [address] [place], [address] MCV (RBC) [Entitic vol] 96.2 fL Normal 81-99 [facility] Comment on above: Performed By: #### L 100.0500, L500.2500 ####[facility] [address] [place], [address] Platelet mean volume (Bld) [Entitic vol] 10.0 fL Normal 6.2-12.0 [facility] Comment on above: Performed By: #### L 100.0500, L500.2500 ####[facility] [address] [place], [address] Platelets (Bld) [#/Vol] 263 10*3/uL Normal 150-450 [facility] Comment on above: Performed By: #### L 100.0500, L500.2500 ####[facility] [address] [place], [address] RBC (Bld) [#/Vol] 3.19 10*6/uL Low 4.2-5.4 [facility] Comment on above: Performed By: #### L 100.0500, L500.2500 ####[facility] [address] [place], [address] RDW SD 51.7 fl High 35.1-43.9 [facility] Comment on above: Performed By: #### L 100.0500, L500.2500 ####[facility] [address] [place], [address] WBC (Bld) [#/Vol] 8.2 10*3/uL Normal 4.4-11.0 [facility] Comment on above: Performed By: #### L 100.0500, L500.2500 ####[facility] [address] [place], [address] Thin prep Papanicolaou smear with manual screeningOrdered By: Marie Caldera on 01-27-2024 Thin prep Papanicolaou smear with manual screening 122 mg/dL 74-106 [facility] Comment on above: MANAGEMENT OF PATIEN T CARE PER NURSING PROTOCOL Basophil percentageOrdered B y: Marie Caldera on 01-24-2024 Chloride [Moles/Vol] 108 mmol/L 98-107 [facility] Glucose [Mass/Vol] 121 mg/dL 74-106 [facility] Comment on above: Fasting Glucose resu lt from 100 to 125 mg/dL suggests IMPAIRED HOMEOSTASIS per A.D.A. criteria. Hemoglobin (Bld) [Mass/Vol] 10.3 g/dL 12.0-15.0 [facility] Potassium [Moles/Vol] 4.7 mmol/L 3.5-5.1 [facility] Sodium [Moles/Vol] 138 mmol/L 136-145 [facility] WBC (Bld) [#/Vol] 9.3 10*3/uL 4.4-11.0 [facility] Determination of erythrocyte mean corpuscular volume (MCV)Ordered By: Marie Caldera on 01-24-2024 MCV (RBC) [Entitic vol] 97.2 fL 81-99 [facility] Erythrocyte distribution wid th ratioOrdered By: Marie Caldera on 01-24-2024 Erythrocyte distribution width (RBC) [Ratio] 15.8 % 11.6-14.6 [facility] Erythrocyte distribution wid th standard deviationOrdered By: Marie Caldera on 01-24-2024 Erythrocyte distribution width (RBC) [Entitic vol] 56.1 fL 35.1-43.9 [facility] Hematocrit Auto (Bld) [Volum e fraction]Ordered By: Marie Caldera on 01-24-2024 Hematocrit (Bld) [Volume fraction] 35.0 % 37-47 [facility] Laboratory - Chemistry and C hemistry - challengeOrdered By: Marie Caldera on 01-24-2024 CO2 [Moles/Vol] 21.0 mmol/L 21.0-32.0 [facility] Urea nitrogen/Creatinine [Mass ratio] 27.7 mg/mg 10-20 [facility] Laboratory - Hematology and Cell countsOrdered By: Marie Caldera on 01-24-2024 MCH (RBC) [Entitic mass] 28.6 pg 27.0-32.0 [facility] MCHC (RBC) [Mass/Vol] 29.4 g/dL 32-36 [facility] Platelet mean volume (Bld) [Entitic vol] 9.8 fL 6.2-12.0 [facility] Platelets (Bld) [#/Vol] 216 10*3/uL 150-450 [facility] No Panel InformationOrdered By: Marie Caldera on 01-24-2024 Estimated GFR (MDRD) Amer 52 mL/min >60 [facility] Estimated GFR (MDRD) Non-Af Amer 43 mL/min >60 [facility] RBC Auto (Bld) [#/Vol]Ordere d By: Marie Caldera on 01-24-2024 RBC (Bld) [#/Vol] 3.60 10*6/uL 4.2-5.4 [facility] Serum or plasma calcium sarbjit urement (mass/volume)Ordered By: Marie Caldera on 01-24-2024 Calcium [Mass/Vol] 9.7 mg/dL 8.5-10.1 [facility] Serum or plasma creatinine m easurement (mass/volume)Ordered By: Marie Caldera on 01-24-2024 Creatinine [Mass/Vol] 1.30 mg/dL 0.55-1.02 [facility] Comment on above: The validity of the calculated GFR & GFRAA in patients over 70 years has not been determined. Clinical correlation is essential. Serum or plasma thyroid stim ulating hormone (TSH) measurement (units/volume)Ordered By: Marie Caldera on 01-24-2024 TSH Qn 2.00 uIU/mL 0.358-3.74 [facility] Serum or plasma urea nitroge n measurement (mass/volume)Ordered By: Marie Caldera on 01-24-2024 Urea nitrogen [Mass/Vol] 36 mg/dL 7-18 [facility] Thin prep Papanicolaou smear with manual screeningOrdered By: Marie Caldera on 01-24-2024 Thin prep Papanicolaou smear with manual screening 9 5-15 [facility] Thin prep Papanicolaou smear with manual screeningOrdered By: Marie Caldera on 11-25-2023 Thin prep Papanicolaou smear with manual screening 114 mg/dL 74-106 [facility] Comment on above: MANAGEMENT OF PATIEN T CARE PER NURSING PROTOCOL Thin prep Papanicolaou smear with manual screeningOrdered By: Marie Caldera on 11-11-2023 Thin prep Papanicolaou smear with manual screening 100 mg/dL 74-106 [facility] Comment on above: MANAGEMENT OF PATIEN T CARE PER NURSING PROTOCOL Absolute lymphocyte countOrd ered By: Corby Heller on 10-27-2023 Lymphocytes Auto (Unsp spec) [#/Vol] 2.35 10*3/uL 0.83-4.51 [facility] Automated lymphocyte count a s percentage of total leukocytesOrdered By: Corby Heller on 10-27-2023 Lymphocytes/100 WBC Auto (Unsp spec) 30.4 % 19-41 [facility] Basophil percentageOrdered B y: Corby Heller on 10-27-2023 Basophils/100 WBC (Bld) 0.8 % 0-1 [facility] Bilirubin [Mass/Vol] 0.40 mg/dL 0.20-1.00 [facility] Comment on above: For patients on eltr ombopag therapy, use of Dimension Wisner TBIL is not recommended. Chloride [Moles/Vol] 107 mmol/L 98-107 [facility] Eosinophils/100 WBC (Bld) 4.5 % 0-5 [facility] Glucose [Mass/Vol] 150 mg/dL 74-106 [facility] Comment on above: Fasting Glucose resu lt greater than or equal to 126 mg/dL suggests DIABETES MELLITUS per A.D.A. criteria. Hemoglobin (Bld) [Mass/Vol] 10.1 g/dL 12.0-15.0 [facility] Monocytes/100 WBC (Bld) 7.4 % 0-10 [facility] Neutrophils (Bld) [#/Vol] 4.4 10*3/uL 2.0-7.7 [facility] Neutrophils/100 WBC (Bld) 56.4 % 47-70 [facility] Potassium [Moles/Vol] 4.2 mmol/L 3.5-5.1 [facility] Protein [Mass/Vol] 7.7 g/dL 6.4-8.2 [facility] Sodium [Moles/Vol] 139 mmol/L 136-145 [facility] WBC (Bld) [#/Vol] 7.7 10*3/uL 4.4-11.0 [facility] Culture, urineOrdered By: Ryder Heller on 10-27-2023 Bacteria identified Cx Nom (U) Mixed Gram Pos & Gram Neg Org [facility] Bacteria identified Cx Nom (U) Mixed Gram Pos & Gram Neg Org [facility] Determination of erythrocyte mean corpuscular volume (MCV)Ordered By: Corby Heller on 10-27-2023 MCV (RBC) [Entitic vol] 94.8 fL 81-99 [facility] Erythrocyte distribution wid th ratioOrdered By: Corby Heller on 10-27-2023 Erythrocyte distribution width (RBC) [Ratio] 15.9 % 11.6-14.6 [facility] Erythrocyte distribution wid th standard deviationOrdered By: Corby Heller on 10-27-2023 Erythrocyte distribution width (RBC) [Entitic vol] 55.0 fL 35.1-43.9 [facility] Hematocrit Auto (Bld) [Volum e fraction]Ordered By: Corby Heller on 10-27-2023 Hematocrit (Bld) [Volume fraction] 33.1 % 37-47 [facility] Immature granulocytes/100 WB C Auto (Bld)Ordered By: Corby Heller on 10-27-2023 Immature granulocytes/100 WBC (Bld) 0.500 % 0.0-0.9 [facility] Comment on above: IG% - Immature Granu locytes (promyelocytes, myelocytes and metamyelocytes) > 1% indicates that a LEFT SHIFT is Present. Laboratory - Chemistry and C hemistry - challengeOrdered By: Corby Heller on 10-27-2023 Albumin/Globulin [Mass ratio] 0.6 {ratio} 0.9-2.4 [facility] ALP [Catalytic activity/Vol] 71 U/L 45-117 [facility] ALT [Catalytic activity/Vol] 16 U/L 13-56 [facility] CO2 [Moles/Vol] 27.0 mmol/L 21.0-32.0 [facility] Globulin (S) [Mass/Vol] 4.7 g/dL 2.2-4.2 [facility] Urea nitrogen/Creatinine [Mass ratio] 21.4 mg/mg 10-20 [facility] Laboratory - Hematology and Cell countsOrdered By: Corby Heller on 10-27-2023 MCH (RBC) [Entitic mass] 28.9 pg 27.0-32.0 [facility] MCHC (RBC) [Mass/Vol] 30.5 g/dL 32-36 [facility] Nucleated RBC/100 WBC (Bld) [Ratio] 0 % 0-5 [facility] Platelets (Bld) [#/Vol] 257 10*3/uL 150-450 [facility] No Panel InformationOrdered By: Corby Heller on 10-27-2023 Estimated GFR (MDRD) Amer 67 mL/min >60 [facility] Comment on above: GFR Calc Estimated GFR (MDRD) Non-Af Amer 56 mL/min >60 [facility] Comment on above: Non- GFR Calc Vitamin D 25-Hydroxy 59.1 ng/mL [facility] Comment on above: Vitamin D 25(OH) Sta tus Range Deficiency <20 ng/mL (50nmol/L) Insufficiency 20 - 30 ng/mL (50 - 75 nmol/L) Sufficiency 30 - 100 ng/mL (75 - 250 nmol/L) Toxicity >100 ng/mL (>250 nmol/L) Platelet mean volume Johnny-Ec ker (Bld) [Entitic vol]Ordered By: Corby Heller on 10-27-2023 Platelet mean volume (Bld) [Entitic vol] 9.6 fL 6.2-12.0 [facility] RBC Auto (Bld) [#/Vol]Ordere d By: Corby Heller on 10-27-2023 RBC (Bld) [#/Vol] 3.49 10*6/uL 4.2-5.4 [facility] Serum or plasma calcium sarbjit urement (mass/volume)Ordered By: Corby Heller on 10-27-2023 Calcium [Mass/Vol] 9.7 mg/dL 8.5-10.1 [facility] Serum or plasma creatinine m easurement (mass/volume)Ordered By: Corby Heller on 10-27-2023 Creatinine [Mass/Vol] 1.03 mg/dL 0.55-1.02 [facility] Comment on above: The validity of the calculated GFR & GFRAA in patients over 70 years has not been determined. Clinical correlation is essential. Serum or plasma thyroid stim ulating hormone (TSH) measurement (units/volume)Ordered By: Corby Heller on 10-27-2023 TSH Qn 3.47 uIU/mL 0.358-3.74 [facility] Serum or plasma urea nitroge n measurement (mass/volume)Ordered By: Corby Heller on 10-27-2023 Urea nitrogen [Mass/Vol] 22 mg/dL 7-18 [facility] Thin prep Papanicolaou smear with manual screeningOrdered By: Corby Heller on 10-27-2023 Thin prep Papanicolaou smear with manual screening 3.0 g/dL 3.2-5.0 [facility] Thin prep Papanicolaou smear with manual screening 19 U/L 15-37 [facility] Thin prep Papanicolaou smear with manual screening 5 5-15 [facility] Basophil percentageOrdered B y: Marie Caldera on 08-05-2023 Basophil percentage >100 SEEN /hpf 0-5 [facility] Bilirubin Test strip Ql (U)O rdered By: Marie Caldera on 08-05-2023 Bilirubin Ql (U) Negative Negative [facility] Glucose Glucometer (BldC) [M ass/Vol]Ordered By: Marie Caldera on 08-05-2023 Glucose [Mass/Vol] 104 mg/dL 74-106 [facility] Comment on above: MANAGEMENT OF PATIEN T CARE PER NURSING PROTOCOL Ketones Test strip Ql (U)Ord ered By: Marie Caldera on 08-05-2023 Ketones Ql (U) Negative Negative [facility] Mucus LM Ql (Urine sed)Order ed By: Marie Caldera on 08-05-2023 Mucus Ql (Urine sed) 0 SEEN /hpf [facility] Nitrite Test strip Ql (U)Ord ered By: Marie Caldera on 08-05-2023 Nitrite Ql (U) Negative Negative [facility] Protein Test strip Ql (U)Ord ered By: Marie Caldera on 08-05-2023 Protein Ql (U) 100 mg/dl Negative [facility] Squamous epithelial cells de tection in urine sediment by light microscopyOrdered By: Marie Caldera on 08-05-2023 Epithelial cells.squamous LM Ql (Urine sed) 0 SEEN /hpf 5-10 [facility] Urine blood detectionOrdered By: Marie Caldera on 08-05-2023 RBC Ql (U) 150 /ul Negative [facility] RBC Ql (U) 0 SEEN /hpf 0-5 [facility] Urine clarityOrdered By: Agnieszka Caldera on 08-05-2023 Clarity (U) Cloudy Clear [facility] Urine color determinationOrd ered By: Marie Caldera on 08-05-2023 Color (U) Yellow Yellow [facility] Urine glucose detectionOrder ed By: Marie Caldera on 08-05-2023 Glucose Ql (U) Normal mg/dl Normal [facility] Urine leukocyte esterase det ection by dipstickOrdered By: Marie Caldera on 08-05-2023 Leukocyte esterase Test strip Ql (U) 500 /ul Negative [facility] Urine pHOrdered By: Marie jones on 08-05-2023 pH (U) 5.0 [pH] 5.0 - 8.0 [facility] Urine sediment bacteria coun t by microscopy (number/high power field)Ordered By: Marie Caldera on 08-05-2023 Bacteria LM.HPF (Urine sed) [#/Area] 0 /[HPF] None Seen [facility] Urine specific gravity measu rementOrdered By: Marie Caldera on 08-05-2023 Specific gravity (U) [Rel density] 1.015 1.002-1.03 0 [facility] Urobilinogen Auto test strip Ql (U)Ordered By: Marie Caldera on 08-05-2023 Urobilinogen Ql (U) Normal mg/dl Normal [facility] Absolute lymphocyte countOrd ered By: Corby Heller on 07-21-2023 Lymphocytes Auto (Unsp spec) [#/Vol] 1.88 10*3/uL 0.83-4.51 [facility] Basophil percentageOrdered B y: Corby Heller on 07-21-2023 Basophils/100 WBC (Bld) 0.6 % 0-1 [facility] Bilirubin [Mass/Vol] 0.40 mg/dL 0.20-1.00 [facility] Comment on above: For patients on eltr ombopag therapy, use of Dimension Wisner TBIL is not recommended. Chloride [Moles/Vol] 106 mmol/L 98-107 [facility] Eosinophils/100 WBC (Bld) 7.1 % 0-5 [facility] Glucose [Mass/Vol] 162 mg/dL 74-106 [facility] Comment on above: Fasting Glucose resu lt greater than or equal to 126 mg/dL suggests DIABETES MELLITUS per A.D.A. criteria. Neutrophils (Bld) [#/Vol] 4.1 10*3/uL 2.0-7.7 [facility] Neutrophils/100 WBC (Bld) 57.9 % 47-70 [facility] Potassium [Moles/Vol] 4.0 mmol/L 3.5-5.1 [facility] Protein [Mass/Vol] 8.0 g/dL 6.4-8.2 [facility] Sodium [Moles/Vol] 139 mmol/L 136-145 [facility] WBC (Bld) [#/Vol] 7.1 10*3/uL 4.4-11.0 [facility] Blood erythrocytes count (nu mber/volume)Ordered By: Corby Heller on 07-21-2023 RBC (Bld) [#/Vol] 3.34 10*6/uL 4.2-5.4 [facility] Blood hemoglobin measurement (mass/volume)Ordered By: Corby Heller on 07-21-2023 Hemoglobin (Bld) [Mass/Vol] 10.0 g/dL 12.0-15.0 [facility] Blood lymphocytes/100 leukoc ytesOrdered By: Corby Heller on 07-21-2023 Lymphocytes/100 WBC (Bld) 26.6 % 19-41 [facility] Blood monocytes/100 leukocyt esOrdered By: Corby Heller on 07-21-2023 Monocytes/100 WBC (Bld) 7.4 % 0-10 [facility] Blood platelet mean volumeOr dered By: Corby Heller on 07-21-2023 Platelet mean volume (Bld) [Entitic vol] 10.0 fL 6.2-12.0 [facility] Determination of erythrocyte mean corpuscular volume (MCV)Ordered By: Corby Heller on 10-25-2023 MCV (RBC) [Entitic vol] 97.0 fL 81-99 [facility] Hematocrit Auto (Bld) [Volum e fraction]Ordered By: Corby Heller on 07-21-2023 Hematocrit (Bld) [Volume fraction] 32.4 % 37-47 [facility] Laboratory - Chemistry and C hemistry - challengeOrdered By: Corby Heller on 07-21-2023 ALP [Catalytic activity/Vol] 64 U/L 45-117 [facility] ALT [Catalytic activity/Vol] 14 U/L 13-56 [facility] CO2 [Moles/Vol] 29.0 mmol/L 21.0-32.0 [facility] Globulin (S) [Mass/Vol] 5.0 g/dL 2.2-4.2 [facility] Urea nitrogen/Creatinine [Mass ratio] 28.3 mg/mg 10-20 [facility] Laboratory - Hematology and Cell countsOrdered By: Corby Heller on 07-21-2023 Erythrocyte distribution width (RBC) [Entitic vol] 56.1 fL 35.1-43.9 [facility] Erythrocyte distribution width (RBC) [Ratio] 15.9 % 11.6-14.6 [facility] Immature granulocytes/100 WBC (Bld) 0.400 % 0.0-0.9 [facility] Comment on above: IG% - Immature Granu locytes (promyelocytes, myelocytes and metamyelocytes) > 1% indicates that a LEFT SHIFT is Present. MCH (RBC) [Entitic mass] 29.9 pg 27.0-32.0 [facility] Nucleated RBC/100 WBC (Bld) [Ratio] 0 % 0-5 [facility] MCHC Auto (RBC) [Mass/Vol]Or dered By: Corby Heller on 07-21-2023 MCHC (RBC) [Mass/Vol] 30.9 g/dL 32-36 [facility] No Panel InformationOrdered By: Corby Heller on 07-21-2023 Estimated GFR (MDRD) Amer 65 mL/min >60 [facility] Comment on above: GFR Calc Estimated GFR (MDRD) Non-Af Amer 54 mL/min >60 [facility] Comment on above: Non- GFR Calc Thyroid Stimulating Hormone (TSH) 2.12 uIU/mL 0.358-3.74 [facility] Vitamin D 25-Hydroxy 57.8 ng/mL [facility] Comment on above: Vitamin D 25(OH) Sta tus Range Deficiency <20 ng/mL (50nmol/L) Insufficiency 20 - 30 ng/mL (50 - 75 nmol/L) Sufficiency 30 - 100 ng/mL (75 - 250 nmol/L) Toxicity >100 ng/mL (>250 nmol/L) Platelets bldOrdered By: Corby Heller on 07-21-2023 Platelets (Bld) [#/Vol] 193 10*3/uL 150-450 [facility] Serum or plasma albumin sarbjit urement (mass/volume)Ordered By: Corby Heller on 07-21-2023 Albumin [Mass/Vol] 3.0 g/dL 3.2-5.0 [facility] Serum or plasma albumin/glob ulin mass ratioOrdered By: Corby Heller on 07-21-2023 Albumin/Globulin [Mass ratio] 0.6 {ratio} 0.9-2.4 [facility] Serum or plasma calcium sarbjit urement (mass/volume)Ordered By: Corby Heller on 07-21-2023 Calcium [Mass/Vol] 10.2 mg/dL 8.5-10.1 [facility] Serum or plasma creatinine m easurement (mass/volume)Ordered By: Corby Heller on 07-21-2023 Creatinine [Mass/Vol] 1.06 mg/dL 0.55-1.02 [facility] Comment on above: The validity of the calculated GFR & GFRAA in patients over 70 years has not been determined. Clinical correlation is essential. Serum or plasma urea nitroge n measurement (mass/volume)Ordered By: Corby Heller on 07-21-2023 Urea nitrogen [Mass/Vol] 30 mg/dL 7-18 [facility] Thin prep Papanicolaou smear with manual screeningOrdered By: Corby Heller on 07-21-2023 Thin prep Papanicolaou smear with manual screening 16 U/L 15-37 [facility] Thin prep Papanicolaou smear with manual screening 4 5-15 [facility] Absolute lymphocyte countOrd ered By: Corby Heller on 07-15-2023 Lymphocytes Auto (Unsp spec) [#/Vol] 1.80 10*3/uL 0.83-4.51 [facility] Basophil percentageOrdered B y: Corby Heller on 07-15-2023 Basophils/100 WBC (Bld) 1.3 % 0-1 [facility] Chloride [Moles/Vol] 105 mmol/L 98-107 [facility] Eosinophils/100 WBC (Bld) 5.0 % 0-5 [facility] Glucose [Mass/Vol] 132 mg/dL 74-106 [facility] Comment on above: Fasting Glucose resu lt greater than or equal to 126 mg/dL suggests DIABETES MELLITUS per A.D.A. criteria. Neutrophils (Bld) [#/Vol] 3.3 10*3/uL 2.0-7.7 [facility] Neutrophils/100 WBC (Bld) 53.5 % 47-70 [facility] Potassium [Moles/Vol] 4.0 mmol/L 3.5-5.1 [facility] Sodium [Moles/Vol] 138 mmol/L 136-145 [facility] WBC (Bld) [#/Vol] 6.2 10*3/uL 4.4-11.0 [facility] Blood erythrocytes count (nu mber/volume)Ordered By: Corby Heller on 07-15-2023 RBC (Bld) [#/Vol] 3.10 10*6/uL 4.2-5.4 [facility] Blood hemoglobin measurement (mass/volume)Ordered By: Corby Heller on 07-15-2023 Hemoglobin (Bld) [Mass/Vol] 9.3 g/dL 12.0-15.0 [facility] Blood lymphocytes/100 leukoc ytesOrdered By: Corby Heller on 07-15-2023 Lymphocytes/100 WBC (Bld) 28.8 % 19-41 [facility] Blood monocytes/100 leukocyt esOrdered By: Corby Arron on 07-15-2023 Monocytes/100 WBC (Bld) 10.9 % 0-10 [facility] Blood platelet mean volumeOr dered By: Corby Heller on 07-15-2023 Platelet mean volume (Bld) [Entitic vol] 10.1 fL 6.2-12.0 [facility] Determination of erythrocyte mean corpuscular volume (MCV)Ordered By: Corby Heller on 07-15-2023 MCV (RBC) [Entitic vol] 98.4 fL 81-99 [facility] Glucose Glucometer (BldC) [M ass/Vol]Ordered By: Corby Heller on 07-15-2023 Glucose [Mass/Vol] 136 mg/dL 74-106 [facility] Comment on above: MANAGEMENT OF PATIEN T CARE PER NURSING PROTOCOL Hematocrit Auto (Bld) [Volum e fraction]Ordered By: Corby Heller on 07-15-2023 Hematocrit (Bld) [Volume fraction] 30.5 % 37-47 [facility] Laboratory - Chemistry and C hemistry - challengeOrdered By: Corby Heller on 07-15-2023 CO2 [Moles/Vol] 28.0 mmol/L 21.0-32.0 [facility] Urea nitrogen/Creatinine [Mass ratio] 36.5 mg/mg 10-20 [facility] Laboratory - Hematology and Cell countsOrdered By: Corby Heller on 07-15-2023 Erythrocyte distribution width (RBC) [Entitic vol] 58.1 fL 35.1-43.9 [facility] Erythrocyte distribution width (RBC) [Ratio] 16.2 % 11.6-14.6 [facility] Immature granulocytes/100 WBC (Bld) 0.500 % 0.0-0.9 [facility] Comment on above: IG% - Immature Granu locytes (promyelocytes, myelocytes and metamyelocytes) > 1% indicates that a LEFT SHIFT is Present. MCH (RBC) [Entitic mass] 30.0 pg 27.0-32.0 [facility] Nucleated RBC/100 WBC (Bld) [Ratio] 0 % 0-5 [facility] MCHC Auto (RBC) [Mass/Vol]Or dered By: Corby Heller on 07-15-2023 MCHC (RBC) [Mass/Vol] 30.5 g/dL 32-36 [facility] No Panel InformationOrdered By: Corby Heller on 07-15-2023 Estimated Creatinine Clearance Calc 33.94 ml/min [facility] Estimated GFR (MDRD) Amer 59 mL/min >60 [facility] Comment on above: GFR Calc Estimated GFR (MDRD) Non-Af Amer 49 mL/min >60 [facility] Comment on above: Non- GFR Calc Platelets bldOrdered By: Corby Heller on 07-15-2023 Platelets (Bld) [#/Vol] 163 10*3/uL 150-450 [facility] Serum or plasma calcium sarbjit urement (mass/volume)Ordered By: Corby Heller on 07-15-2023 Calcium [Mass/Vol] 9.5 mg/dL 8.5-10.1 [facility] Serum or plasma creatinine m easurement (mass/volume)Ordered By: Corby Heller on 07-15-2023 Creatinine [Mass/Vol] 1.15 mg/dL 0.55-1.02 [facility] Comment on above: The validity of the calculated GFR & GFRAA in patients over 70 years has not been determined. Clinical correlation is essential. Serum or plasma urea nitroge n measurement (mass/volume)Ordered By: Corby Heller on 07-15-2023 Urea nitrogen [Mass/Vol] 42 mg/dL 7-18 [facility] Thin prep Papanicolaou smear with manual screeningOrdered By: Corby Heller on 07-15-2023 Thin prep Papanicolaou smear with manual screening 5 5-15 [facility] Basophil percentageOrdered B y: Corby Heller on 07-09-2023 Basophil percentage 25-50 SEEN /hpf 0-5 [facility] Bilirubin Test strip Ql (U)O rdered By: Corby Heller on 07-09-2023 Bilirubin Ql (U) Negative Negative [facility] Culture, urineOrdered By: Ryder Heller on 07-09-2023 Bacteria identified Cx Nom (U) Escherichia coli [facility] Bacteria identified Cx Nom (U) Escherichia coli [facility] Ketones Test strip Ql (U)Ord ered By: Corby Heller on 07-09-2023 Ketones Ql (U) Negative Negative [facility] Mucus LM Ql (Urine sed)Order ed By: Corby Heller on 07-09-2023 Mucus Ql (Urine sed) 0 SEEN /hpf [facility] Nitrite Test strip Ql (U)Ord ered By: Corby Heller on 07-09-2023 Nitrite Ql (U) Positive Negative [facility] Protein Test strip Ql (U)Ord ered By: Corby Heller on 07-09-2023 Protein Ql (U) 30 mg/dl Negative [facility] Squamous epithelial cells de tection in urine sediment by light microscopyOrdered By: Corby Heller on 07-09-2023 Epithelial cells.squamous LM Ql (Urine sed) 0 SEEN /hpf 5-10 [facility] Urine blood detectionOrdered By: Corby Heller on 07-09-2023 RBC Ql (U) 25 /ul Negative [facility] RBC Ql (U) 0-5 SEEN /hpf 0-5 [facility] Urine clarityOrdered By: Corby Hleler on 07-09-2023 Clarity (U) Sl. Cloudy Clear [facility] Urine color determinationOrd ered By: Corby Heller on 07-09-2023 Color (U) Yellow Yellow [facility] Urine glucose detectionOrder ed By: Corby Heller on 07-09-2023 Glucose Ql (U) Normal mg/dl Normal [facility] Urine leukocyte esterase det ection by dipstickOrdered By: Corby Heller on 07-09-2023 Leukocyte esterase Test strip Ql (U) 500 /ul Negative [facility] Urine pHOrdered By: Corby Heller on 07-09-2023 pH (U) 6.5 [pH] 5.0 - 8.0 [facility] Urine sediment bacteria coun t by microscopy (number/high power field)Ordered By: Corby Heller on 07-09-2023 Bacteria LM.HPF (Urine sed) [#/Area] 1 /[HPF] None Seen [facility] Urine specific gravity measu rementOrdered By: Corby Heller on 07-09-2023 Specific gravity (U) [Rel density] 1.010 1.002-1.03 0 [facility] Urobilinogen Auto test strip Ql (U)Ordered By: Corby Heller on 07-09-2023 Urobilinogen Ql (U) Normal mg/dl Normal [facility] Blood band neutrophil count as percentage of total leukocytesOrdered By: Corby Heller on 07-01-2023 Band form neutrophils/100 WBC (Bld) 6 % 0-5 [facility] Blood eosinophils/100 leukoc ytesOrdered By: Corby Heller on 07-01-2023 Eosinophils/100 WBC (Bld) 2 % 0-5 [facility] Blood lymphocytes/100 leukoc ytesOrdered By: Corby Heller on 07-01-2023 Lymphocytes/100 WBC (Bld) 16 % 19-41 [facility] Blood metamyelocytes/100 dar kocytesOrdered By: Corby Heller on 07-01-2023 Metamyelocytes/100 WBC (Bld) 1 % 0-1 [facility] Blood monocytes/100 leukocyt esOrdered By: Corby Heller on 07-01-2023 Monocytes/100 WBC (Bld) 7 % 0-10 [facility] Blood platelet adequacy dete ction by light microscopyOrdered By: Corby Heller on 07-01-2023 Platelets LM Ql (Bld) ADEQUATE ADEQ [facility] Blood promyelocytes/100 leuk ocytesOrdered By: Corby Heller on 07-01-2023 Promyelocytes/100 WBC (Bld) 2 % 0-0 [facility] Blood segmented neutrophils/ 100 leukocytesOrdered By: Corby Heller on 07-01-2023 Segmented neutrophils/100 WBC (Bld) 58 % 47-70 [facility] Laboratory - Hematology and Cell countsOrdered By: Corby Heller on 07-01-2023 Anisocytosis Ql (Bld) 1+ [facility] Myelocytes/100 WBC (Bld) 8 % 0-0 [facility] RBC morphologyOrdered By: Ryder Heller on 07-01-2023 RBC morphology finding Nom (Bld) NORM C+C NORMAL NORM C&C [facility] Review by pathologistOrdered By: Corby Heller on 07-01-2023 Pathologist review Olaf (Unsp spec) [Interp] Reviewed [facility] Comment on above: Previous reported re sult: Lydia song Edited by: RGOOD on 07/01/23:1046Neutrophilic left shift.Normocytic anemia.Clinical correlation necessary.Alex Baker M.D. 07/01/23 AMENDED REPORT 07/01/23 1046 PATH REV previously reported as: Lydia song Total cell countOrdered By: Corby Heller on 07-01-2023 Cells counted Molgen (Bld/Tiss) [#] 100 MANUAL DIFF [facility] Glucose Glucometer (BldC) [M ass/Vol]Ordered By: Alonso Bautista on 06-30-2023 Glucose [Mass/Vol] 144 mg/dL 74-106 [facility] Comment on above: MANAGEMENT OF PATIEN T CARE PER NURSING PROTOCOL Absolute lymphocyte countOrd ered By: Zenon Martinez on 06-29-2023 Lymphocytes Auto (Unsp spec) [#/Vol] 2.13 10*3/uL 0.83-4.51 [facility] Basophil percentageOrdered B y: Zenon Martinez on 06-29-2023 Basophil percentage Not Reportable [facility] Chloride [Moles/Vol] 106 mmol/L 98-107 [facility] Glucose [Mass/Vol] 125 mg/dL 74-106 [facility] Comment on above: Fasting Glucose resu lt from 100 to 125 mg/dL suggests IMPAIRED HOMEOSTASIS per A.D.A. criteria. Neutrophils (Bld) [#/Vol] 7.6 10*3/uL 2.0-7.7 [facility] Potassium [Moles/Vol] 4.1 mmol/L 3.5-5.1 [facility] Sodium [Moles/Vol] 135 mmol/L 136-145 [facility] WBC (Bld) [#/Vol] 11.2 10*3/uL 4.4-11.0 [facility] Blood band neutrophil count as percentage of total leukocytesOrdered By: Zenon Martinez on 06-29-2023 Band form neutrophils/100 WBC (Bld) 2 % 0-5 [facility] Blood eosinophils/100 leukoc ytesOrdered By: Zenon Martinez on 06-29-2023 Eosinophils/100 WBC (Bld) 5 % 0-5 [facility] Blood erythrocytes count (nu mber/volume)Ordered By: Zenon Martinez on 06-29-2023 RBC (Bld) [#/Vol] 3.00 10*6/uL 4.2-5.4 [facility] Blood hemoglobin measurement (mass/volume)Ordered By: Zenon Martinez on 06-29-2023 Hemoglobin (Bld) [Mass/Vol] 9.0 g/dL 12.0-15.0 [facility] Blood lymphocytes/100 leukoc ytesOrdered By: Zenon Martinez on 06-29-2023 Lymphocytes/100 WBC (Bld) 19 % 19-41 [facility] Blood monocytes/100 leukocyt esOrdered By: Zenon Martinez on 06-29-2023 Monocytes/100 WBC (Bld) 6 % 0-10 [facility] Blood platelet adequacy dete ction by light microscopyOrdered By: Zenon Martinez on 06-29-2023 Platelets LM Ql (Bld) ADEQUATE ADEQ [facility] Blood platelet mean volumeOr dered By: Zenon Martinez on 06-29-2023 Platelet mean volume (Bld) [Entitic vol] 9.9 fL 6.2-12.0 [facility] Blood segmented neutrophils/ 100 leukocytesOrdered By: Zenon Martinez on 06-29-2023 Segmented neutrophils/100 WBC (Bld) 66 % 47-70 [facility] Determination of erythrocyte mean corpuscular volume (MCV)Ordered By: Zenon Martinez on 06-29-2023 MCV (RBC) [Entitic vol] 94.7 fL 81-99 [facility] Hematocrit Auto (Bld) [Volum e fraction]Ordered By: Zenon Martinez on 06-29-2023 Hematocrit (Bld) [Volume fraction] 28.4 % 37-47 [facility] Laboratory - Chemistry and C hemistry - challengeOrdered By: Zenon Martinez on 06-29-2023 CO2 [Moles/Vol] 25.0 mmol/L 21.0-32.0 [facility] Urea nitrogen/Creatinine [Mass ratio] 27.1 mg/mg 10-20 [facility] Laboratory - Hematology and Cell countsOrdered By: Zenon Martinez on 06-29-2023 Erythrocyte distribution width (RBC) [Entitic vol] 54.1 fL 35.1-43.9 [facility] Erythrocyte distribution width (RBC) [Ratio] 15.5 % 11.6-14.6 [facility] MCH (RBC) [Entitic mass] 30.0 pg 27.0-32.0 [facility] Myelocytes/100 [facility]) 2 [facility] [Mass/Vol]Or dered By: Zenon Martinez on 06-29-2023 MCHC (RBC) [Mass/Vol] 31.7 g/dL 32-36 [facility] No Panel InformationOrdered By: Zenon Martinez on 06-29-2023 Estimated Creatinine Clearance Calc 42.43 ml/min [facility] Estimated GFR (MDRD) Amer 77 mL/min >60 [facility] Comment on above: GFR Calc Estimated GFR (MDRD) Non-Af Amer 63 mL/min >60 [facility] Comment on above: Non- GFR Calc Reactive Lymphocytes 1+ [facility] Platelets bldOrdered By: Eagle Martinez on 06-29-2023 Platelets (Bld) [#/Vol] 173 10*3/uL 150-450 [facility] RBC morphologyOrdered By: Michelle Martinez on 06-29-2023 RBC morphology finding Nom (Bld) NORM C+C NORMAL NORM C&C [facility] Review by pathologistOrdered By: Zenon Martinez on 06-29-2023 Pathologist review Olaf (Unsp spec) [Interp] Reviewed [facility] Comment on above: Previous reported re sult: Lydia song Edited by: JULIA on 06/29/23:1329Leukocytosis.Normocytic anemia.NRBCs are noted.Alex Baker M.D. 06/29/23 AMENDED REPORT 06/29/23 1329 PATH REV previously reported as: Lydia song Serum or plasma calcium sarbjit urement (mass/volume)Ordered By: Zenon Martinez on 06-29-2023 Calcium [Mass/Vol] 7.9 mg/dL 8.5-10.1 [facility] Serum or plasma creatinine m easurement (mass/volume)Ordered By: Zenon Martinez on 06-29-2023 Creatinine [Mass/Vol] 0.92 mg/dL 0.55-1.02 [facility] Comment on above: The validity of the calculated GFR & GFRAA in patients over 70 years has not been determined. Clinical correlation is essential. Serum or plasma urea nitroge n measurement (mass/volume)Ordered By: Zenon Martinez on 06-29-2023 Urea nitrogen [Mass/Vol] 25 mg/dL 7-18 [facility] Thin prep Papanicolaou smear with manual screeningOrdered By: Zenon Martinez on 06-29-2023 Thin prep Papanicolaou smear with manual screening 4 5-15 [facility] Total cell countOrdered By: Zenon Martinez on 06-29-2023 Cells counted Molgen (Bld/Tiss) [#] 100 MANUAL DIFF [facility] Basophil percentageOrdered B y: Zenon Martinez on 06-28-2023 Basophils/100 WBC (Bld) 0.4 % 0-1 [facility] Eosinophils/100 WBC (Bld) 2.1 % 0-5 [facility] Blood lymphocytes/100 leukoc ytesOrdered By: Zenon Martinez on 06-28-2023 Lymphocytes/100 WBC (Bld) 17.4 % 19-41 [facility] Blood monocytes/100 leukocyt esOrdered By: Zenon Martinez on 06-28-2023 Monocytes/100 WBC (Bld) 5.4 % 0-10 [facility] Laboratory - Hematology and Cell countsOrdered By: Zenon Martinez on 06-28-2023 Anisocytosis Ql (Bld) 1+ [facility] Immature granulocytes/100 WBC (Bld) 1.600 % 0.0-0.9 [facility] Comment on above: IG% - Immature Granu locytes (promyelocytes, myelocytes and metamyelocytes) > 1% indicates that a LEFT SHIFT is Present. Nucleated RBC/100 WBC (Bld) [Ratio] 0 % 0-5 [facility] Serum or plasma trough vanco mycin levelOrdered By: Juan Cerda on 06-28-2023 Vancomycin trough [Mass/Vol] 19.4 ug/mL 5.0-15.0 [facility] Comment on above: VANCOMYCIN STANDARED DRUG THERAPY TROUGH LEVEL: 5.0 - 15.0 mg/L VANCOMYCIN HIGH INTENSITY THERAPY TROUGH LEVEL: 15.0 - 20.0 mg/L High Intensity therapy recommended for serious lifethreatening infections include:- [id number] (Ventilator/Healtcare Associated)-Sepsis PLEASE CONTACT PHARMACY SERVICES (#[id number]) FOR INTERPRETATIONOF RESULTS. Bacteria identified Respirat ory culture Nom (Unsp spec)Ordered By: Clementine Prieto on 06-27-2023 Respiratory Culture Presumptive C albicans [facility] Basophil percentageOrdered B y: Bertram Chatterjee on 06-27-2023 Basophil percentage 4.1 mg/dL 2.5-4.9 [facility] Gram stain for investigation of transfusion reactionOrdered By: Clementine Prieto on 06-27-2023 Microscopic observation Gram stain Nom (Unsp spec) [facility] Laboratory - Chemistry and C hemistry - challengeOrdered By: Bertram Chatterjee on 06-27-2023 Magnesium [Mass/Vol] 2.3 mg/dL 1.6-2.6 [facility] Basophil percentageOrdered B y: Clementine Prieto on 06-26-2023 Bilirubin [Mass/Vol] 1.30 mg/dL 0.20-1.00 [facility] Comment on above: For patients on eltr ombopag therapy, use of Dimension Wisner TBIL is not recommended. Protein [Mass/Vol] 6.9 g/dL 6.4-8.2 [facility] Blood manual differential co mment interpretation (narrative result)Ordered By: Clementine Prieto on 06-26-2023 Manual differential comment Olaf (Bld) [Interp] SCANNED [facility] Comment on above: BANDS NOTED, LEFT SH IFT Clostridium difficile detect ion by polymerase chain reactionOrdered By: Clementine Prieto on 06-26-2023 C. difficile DNA ROSEANNE+probe Ql (Unsp spec) [facility] C. difficile DNA ROSEANNE+probe Ql (Unsp spec) [facility] Laboratory - Chemistry and C hemistry - challengeOrdered By: Clementine Prieto on 06-26-2023 ALP [Catalytic activity/Vol] 66 U/L 45-117 [facility] ALT [Catalytic activity/Vol] 32 U/L 13-56 [facility] Globulin (S) [Mass/Vol] 4.6 g/dL 2.2-4.2 [facility] No Panel InformationOrdered By: Juan Cerda on 06-26-2023 Methicillin-Resist S.aureus DNA PCR Positive Negative [facility] Comment on above: CRITICAL VALUE VERIF IED. CALLED TO MNGKTEOEL27/30/23 0519 Alfredo Pardo.RESULTS READ BACK BY SAME. Serum or plasma albumin sarbjit urement (mass/volume)Ordered By: Clementine Prieto on 06-26-2023 Albumin [Mass/Vol] 2.3 g/dL 3.2-5.0 [facility] Serum or plasma albumin/glob ulin mass ratioOrdered By: Clementine Prieto on 06-26-2023 Albumin/Globulin [Mass ratio] 0.5 {ratio} 0.9-2.4 [facility] Stool Clostridium difficile detectionOrdered By: Clementine Prieto on 06-26-2023 C. difficile Ql (Stl) [facility] C. difficile Ql (Stl) [facility] Thin prep Papanicolaou smear with manual screeningOrdered By: Clementine Prieto on 06-26-2023 Thin prep Papanicolaou smear with manual screening 73 U/L 15-37 [facility] Assessment of wrist artery p atency prior to arterial punctureOrdered By: Clementine Prieto on 06-25-2023 Arterial patency Wrist artery --pre arterial puncture Positive [facility] Base excessOrdered By: Hilda Prieto on 06-25-2023 Base excess Calc (BldV) [Moles/Vol] -6 mmol/L -2-2 [facility] Basophil percentageOrdered B y: Clementine Prieto on 06-25-2023 Basophil percentage 20.8 mmol/L 22-26 [facility] Basophils/100 WBC (Bld) 91 % 95-99 [facility] Basophil percentageOrdered B y: Reji Morillo on 06-25-2023 Lactate [Moles/Vol] 1.4 mmol/L 0.4-2.0 [facility] Basophil percentage 50-100 SEEN /hpf 0-5 [facility] Bilirubin Test strip Ql (U)O rdered By: Reji Morillo on 06-25-2023 Bilirubin Ql (U) 1 mg/dL Negative [facility] Comment on above: COLOR OF URINE MAY A FFECT DIPSTICK RESULTS. CO2 (BldA) [Partial pressure ]Ordered By: Clementine Prieto on 06-25-2023 CO2 (Bld) [Partial pressure] 43.2 mm[Hg] 35-45 [facility] Culture, urineOrdered By: Timothy Caldera on 06-25-2023 Bacteria identified Cx Nom (U) Escherichia coli [facility] Bacteria identified Cx Nom (U) Escherichia coli [facility] INR in Blood by Coagulation assayOrdered By: Scott Gamboa on 06-25-2023 INR Coag (Bld) [Relative time] 1.4 {INR} [facility] Ketones Test strip Ql (U)Ord ered By: Reji Morillo on 06-25-2023 Ketones Ql (U) 5 mg/dl Negative [facility] Laboratory - CoagulationOrde red By: Scott Gamboa on 06-25-2023 aPTT Coag (Bld) [Time] 36.1 s 24.1-36.2 [facility] PT Coag (PPP) [Time] 16.9 s 11.7-14.9 [facility] Laboratory - Microbiology an d Antimicrobial susceptibilityOrdered By: Reji Morillo on 06-25-2023 Bacteria identified Cx Nom (Bld) Negative [facility] Bacteria identified Cx Nom (Bld) Staphylococcus epidermidis [facility] Bacteria identified Cx Nom (Bld) Escherichia coli [facility] Bacteria identified Cx Nom (Bld) Negative [facility] Bacteria identified Cx Nom (Bld) Staphylococcus epidermidis [facility] Bacteria identified Cx Nom (Bld) Escherichia coli [facility] Mucus LM Ql (Urine sed)Order ed By: Reji Morillo on 06-25-2023 Mucus Ql (Urine sed) 0 SEEN /hpf [facility] Nitrite Test strip Ql (U)Ord ered By: Reji Morillo on 06-25-2023 Nitrite Ql (U) Positive Negative [facility] No Panel InformationOrdered By: Clementine Prieto on 06-25-2023 Blood Gas Oxygen Percent 15.0 [facility] Blood Gas Sample Site R Radial [facility] Blood Gas Specimen Type ART [facility] Blood Gas Total CO2 22 mmol/L [facility] Blood Gas Vent Mode Not entered [facility] Oxygen Delivery Device NRB [facility] No Panel InformationOrdered By: Reij Morillo on 06-25-2023 Bacteria Detection (PCR) Staphylococcus epidermidis [facility] Bacteria Detection (PCR) Staphylococcus epidermidis [facility] Oxygen (BldA) [Partial press ure]Ordered By: Clementine Prieto on 06-25-2023 Oxygen (Bld) [Partial pressure] 67 mmHG 75-100 [facility] Protein Test strip Ql (U)Ord ered By: Reji Morillo on 06-25-2023 Protein Ql (U) 100 mg/dl Negative [facility] Squamous epithelial cells de tection in urine sediment by light microscopyOrdered By: Reji Morillo on 06-25-2023 Epithelial cells.squamous LM Ql (Urine sed) 0 SEEN /hpf 5-10 [facility] Urine blood detectionOrdered By: Reji Morillo on 06-25-2023 RBC Ql (U) 250 /ul Negative [facility] RBC Ql (U) 10-25 SEEN /hpf 0-5 [facility] Urine clarityOrdered By: Reji Morillo on 06-25-2023 Clarity (U) Cloudy Clear [facility] Urine color determinationOrd ered By: Reji Morillo on 06-25-2023 Color (U) Yellow Yellow [facility] Urine glucose detectionOrder ed By: Reji Morillo on 06-25-2023 Glucose Ql (U) Normal mg/dl Normal [facility] Urine leukocyte esterase det ection by dipstickOrdered By: Reji Morillo on 06-25-2023 Leukocyte esterase Test strip Ql (U) 500 /ul Negative [facility] Urine pHOrdered By: Reji jonas on 06-25-2023 pH (U) 5.0 [pH] 5.0 - 8.0 [facility] Urine sediment bacteria coun t by microscopy (number/high power field)Ordered By: Reji Morillo on 06-25-2023 Bacteria LM.HPF (Urine sed) [#/Area] 4 /[HPF] None Seen [facility] Urine specific gravity measu rementOrdered By: Reji Morillo on 06-25-2023 Specific gravity (U) [Rel density] 1.020 1.002-1.03 0 [facility] Urobilinogen Auto test strip Ql (U)Ordered By: Reji Morillo on 06-25-2023 Urobilinogen Ql (U) 1 mg/dl Normal [facility] pH measurementOrdered By: Kiera Prieto on 06-25-2023 pH (Unsp spec) 7.29 [pH] 7.35-7.45 [facility] Culture, urineOrdered By: Ryder Heller on 05-04-2023 Bacteria identified Cx Nom (U) Culture exhibits no growth. [facility] Bacteria identified Cx Nom (U) Culture exhibits no growth. [facility] Absolute lymphocyte countOrd ered By: Corby Heller on 04-21-2023 Lymphocytes Auto (Unsp spec) [#/Vol] 1.98 10*3/uL 0.83-4.51 [facility] Basophil percentageOrdered B y: Corby Heller on 04-21-2023 Basophils/100 WBC (Bld) 0.8 % 0-1 [facility] Bilirubin [Mass/Vol] 0.30 mg/dL 0.20-1.00 [facility] Comment on above: For patients on eltr ombopag therapy, use of Dimension Wisner TBIL is not recommended. Chloride [Moles/Vol] 105 mmol/L 98-107 [facility] Eosinophils/100 WBC (Bld) 2.8 % 0-5 [facility] Glucose [Mass/Vol] 123 mg/dL 74-106 [facility] Comment on above: Fasting Glucose resu lt from 100 to 125 mg/dL suggests IMPAIRED HOMEOSTASIS per A.D.A. criteria. Neutrophils (Bld) [#/Vol] 5.6 10*3/uL 2.0-7.7 [facility] Neutrophils/100 WBC (Bld) 65.0 % 47-70 [facility] Potassium [Moles/Vol] 4.2 mmol/L 3.5-5.1 [facility] Protein [Mass/Vol] 8.6 g/dL 6.4-8.2 [facility] Sodium [Moles/Vol] 138 mmol/L 136-145 [facility] WBC (Bld) [#/Vol] 8.6 10*3/uL 4.4-11.0 [facility] Blood erythrocytes count (nu mber/volume)Ordered By: Corby Heller on 04-21-2023 RBC (Bld) [#/Vol] 4.03 10*6/uL 4.2-5.4 [facility] Blood hemoglobin measurement (mass/volume)Ordered By: Corby Heller on 04-21-2023 Hemoglobin (Bld) [Mass/Vol] 12.1 g/dL 12.0-15.0 [facility] Blood lymphocytes/100 leukoc ytesOrdered By: Corby Heller on 04-21-2023 Lymphocytes/100 WBC (Bld) 23.1 % 19-41 [facility] Blood monocytes/100 leukocyt esOrdered By: Corby Heller on 04-21-2023 Monocytes/100 WBC (Bld) 8.1 % 0-10 [facility] Blood platelet mean volumeOr dered By: Corby Heller on 04-21-2023 Platelet mean volume (Bld) [Entitic vol] 10.0 fL 6.2-12.0 [facility] Culture, urineOrdered By: Ryder Heller on 04-21-2023 Bacteria identified Cx Nom (U) Escherichia coli [facility] Bacteria identified Cx Nom (U) Escherichia coli [facility] Determination of erythrocyte mean corpuscular volume (MCV)Ordered By: Corby Heller on 04-21-2023 MCV (RBC) [Entitic vol] 97.8 fL 81-99 [facility] Hematocrit Auto (Bld) [Volum e fraction]Ordered By: Corby Heller on 04-21-2023 Hematocrit (Bld) [Volume fraction] 39.4 % 37-47 [facility] Laboratory - Chemistry and C hemistry - challengeOrdered By: Corby Heller on 04-21-2023 ALP [Catalytic activity/Vol] 78 U/L 45-117 [facility] ALT [Catalytic activity/Vol] 24 U/L 13-56 [facility] CO2 [Moles/Vol] 27.0 mmol/L 21.0-32.0 [facility] Globulin (S) [Mass/Vol] 5.4 g/dL 2.2-4.2 [facility] Urea nitrogen/Creatinine [Mass ratio] 23.9 mg/mg 10-20 [facility] Laboratory - Hematology and Cell countsOrdered By: Corby Heller on 04-21-2023 Erythrocyte distribution width (RBC) [Entitic vol] 50.4 fL 35.1-43.9 [facility] Erythrocyte distribution width (RBC) [Ratio] 14.2 % 11.6-14.6 [facility] Immature granulocytes/100 WBC (Bld) 0.200 % 0.0-0.9 [facility] Comment on above: IG% - Immature Granu locytes (promyelocytes, myelocytes and metamyelocytes) > 1% indicates that a LEFT SHIFT is Present. MCH (RBC) [Entitic mass] 30.0 pg 27.0-32.0 [facility] Nucleated RBC/100 WBC (Bld) [Ratio] 0 % 0-5 [facility] MCHC Auto (RBC) [Mass/Vol]Or dered By: Corby Heller on 04-21-2023 MCHC (RBC) [Mass/Vol] 30.7 g/dL 32-36 [facility] No Panel InformationOrdered By: Corby Heller on 04-21-2023 Estimated GFR (MDRD) Amer 81 mL/min >60 [facility] Comment on above: GFR Calc Estimated GFR (MDRD) Non-Af Amer 67 mL/min >60 [facility] Comment on above: Non- GFR Calc Thyroid Stimulating Hormone (TSH) 3.47 uIU/mL 0.358-3.74 [facility] Vitamin D 25-Hydroxy 50.3 ng/mL [facility] Comment on above: Vitamin D 25(OH) Sta tus Range Deficiency <20 ng/mL (50nmol/L) Insufficiency 20 - 30 ng/mL (50 - 75 nmol/L) Sufficiency 30 - 100 ng/mL (75 - 250 nmol/L) Toxicity >100 ng/mL (>250 nmol/L) Platelets bldOrdered By: Corby Heller on 04-21-2023 Platelets (Bld) [#/Vol] 289 10*3/uL 150-450 [facility] Serum or plasma albumin sarbjit urement (mass/volume)Ordered By: Corby Heller on 04-21-2023 Albumin [Mass/Vol] 3.2 g/dL 3.2-5.0 [facility] Serum or plasma albumin/glob ulin mass ratioOrdered By: Corby Heller on 04-21-2023 Albumin/Globulin [Mass ratio] 0.6 {ratio} 0.9-2.4 [facility] Serum or plasma calcium sarbjit urement (mass/volume)Ordered By: Corby Heller on 04-21-2023 Calcium [Mass/Vol] 10.0 mg/dL 8.5-10.1 [facility] Serum or plasma creatinine m easurement (mass/volume)Ordered By: Corby Heller on 04-21-2023 Creatinine [Mass/Vol] 0.88 mg/dL 0.55-1.02 [facility] Comment on above: The validity of the calculated GFR & GFRAA in patients over 70 years has not been determined. Clinical correlation is essential. Serum or plasma urea nitroge n measurement (mass/volume)Ordered By: Corby Heller on 04-21-2023 Urea nitrogen [Mass/Vol] 21 mg/dL 7-18 [facility] Thin prep Papanicolaou smear with manual screeningOrdered By: Corby Heller on 04-21-2023 Thin prep Papanicolaou smear with manual screening 28 U/L 15-37 [facility] Thin prep Papanicolaou smear with manual screening 6 5-15 [facility] Absolute lymphocyte countOrd ered By: Dr. Heller on 03-18-2023 Lymphocytes Auto (Unsp spec) [#/Vol] 2.27 10*3/uL 0.83-4.51 [facility] Basophil percentageOrdered B y: Dr. Heller on 03-18-2023 Basophils/100 WBC (Bld) 0.8 % 0-1 [facility] Bilirubin [Mass/Vol] 0.50 mg/dL 0.20-1.00 [facility] Comment on above: For patients on eltr ombopag therapy, use of Dimension [employer]ner TBIL is not recommended. Chloride [Moles/Vol] 105 mmol/L 98-107 [facility] Eosinophils/100 WBC (Bld) 3.1 % 0-5 [facility] Glucose [Mass/Vol] 143 mg/dL 74-106 [facility] Comment on above: Fasting Glucose resu lt greater than or equal to 126 mg/dL suggests DIABETES MELLITUS per A.D.A. criteria. Neutrophils (Bld) [#/Vol] 4.9 10*3/uL 2.0-7.7 [facility] Neutrophils/100 WBC (Bld) 59.4 % 47-70 [facility] Potassium [Moles/Vol] 4.4 mmol/L 3.5-5.1 [facility] Protein [Mass/Vol] 7.5 g/dL 6.4-8.2 [facility] Sodium [Moles/Vol] 139 mmol/L 136-145 [facility] WBC (Bld) [#/Vol] 8.3 10*3/uL 4.4-11.0 [facility] Blood erythrocytes count (nu mber/volume)Ordered By: Dr. Heller on 03-18-2023 RBC (Bld) [#/Vol] 3.82 10*6/uL 4.2-5.4 [facility] Blood hemoglobin measurement (mass/volume)Ordered By: Dr. Heller on 03-18-2023 Hemoglobin (Bld) [Mass/Vol] 11.7 g/dL 12.0-15.0 [facility] Blood lymphocytes/100 leukoc ytesOrdered By: Dr. Heller on 03-18-2023 Lymphocytes/100 WBC (Bld) 27.3 % 19-41 [facility] Blood monocytes/100 leukocyt esOrdered By: Dr. Heller on 03-18-2023 Monocytes/100 WBC (Bld) 8.8 % 0-10 [facility] Blood platelet mean volumeOr dered By: Dr. Heller on 03-18-2023 Platelet mean volume (Bld) [Entitic vol] 9.9 fL 6.2-12.0 [facility] Determination of erythrocyte mean corpuscular volume (MCV)Ordered By: Dr. Heller on 03-18-2023 MCV (RBC) [Entitic vol] 96.9 fL 81-99 [facility] Hematocrit Auto (Bld) [Volum e fraction]Ordered By: Dr. Heller on 03-18-2023 Hematocrit (Bld) [Volume fraction] 37.0 % 37-47 [facility] Laboratory - Chemistry and C hemistry - challengeOrdered By: Dr. Heller on 03-18-2023 ALP [Catalytic activity/Vol] 72 U/L 45-117 [facility] ALT [Catalytic activity/Vol] 26 U/L 13-56 [facility] CO2 [Moles/Vol] 30.0 mmol/L 21.0-32.0 [facility] Globulin (S) [Mass/Vol] 4.4 g/dL 2.2-4.2 [facility] Urea nitrogen/Creatinine [Mass ratio] 29.0 mg/mg 10-20 [facility] Laboratory - Hematology and Cell countsOrdered By: Dr. Heller on 03-18-2023 Erythrocyte distribution width (RBC) [Entitic vol] 51.7 fL 35.1-43.9 [facility] Erythrocyte distribution width (RBC) [Ratio] 14.6 % 11.6-14.6 [facility] Immature granulocytes/100 WBC (Bld) 0.600 % 0.0-0.9 [facility] Comment on above: IG% - Immature Granu locytes (promyelocytes, myelocytes and metamyelocytes) > 1% indicates that a LEFT SHIFT is Present. MCH (RBC) [Entitic mass] 30.6 pg 27.0-32.0 [facility] Nucleated RBC/100 WBC (Bld) [Ratio] 0 % 0-5 [facility] MCHC Auto (RBC) [Mass/Vol]Or dered By: Dr. Heller on 03-18-2023 MCHC (RBC) [Mass/Vol] 31.6 g/dL 32-36 [facility] No Panel InformationOrdered By: Dr. Heller on 03-18-2023 Estimated GFR (MDRD) Amer 91 mL/min >60 [facility] Comment on above: GFR Calc Estimated GFR (MDRD) Non-Af Amer 75 mL/min >60 [facility] Comment on above: Non- GFR Calc Platelets bldOrdered By: Dr. Heller on 03-18-2023 Platelets (Bld) [#/Vol] 221 10*3/uL 150-450 [facility] Serum or plasma albumin sarbjit urement (mass/volume)Ordered By: Dr. Heller on 03-18-2023 Albumin [Mass/Vol] 3.1 g/dL 3.2-5.0 [facility] Serum or plasma albumin/glob ulin mass ratioOrdered By: Dr. Heller on 03-18-2023 Albumin/Globulin [Mass ratio] 0.7 {ratio} 0.9-2.4 [facility] Serum or plasma calcium sarbjit urement (mass/volume)Ordered By: Dr. Heller on 03-18-2023 Calcium [Mass/Vol] 9.2 mg/dL 8.5-10.1 [facility] Serum or plasma creatinine m easurement (mass/volume)Ordered By: Dr. Heller on 03-18-2023 Creatinine [Mass/Vol] 0.79 mg/dL 0.55-1.02 [facility] Comment on above: The validity of the calculated GFR & GFRAA in patients over 70 years has not been determined. Clinical correlation is essential. Serum or plasma urea nitroge n measurement (mass/volume)Ordered By: Dr. Heller on 03-18-2023 Urea nitrogen [Mass/Vol] 23 mg/dL 7-18 [facility] Thin prep Papanicolaou smear with manual screeningOrdered By: Dr. Heller on 03-18-2023 Thin prep Papanicolaou smear with manual screening 33 U/L 15- [facility] Thin prep Papanicolaou smear with manual screening 4 5-15 [facility] Absolute lymphocyte countOrd ered By: Dr. Heller on 01-21-2023 Lymphocytes Auto (Unsp spec) [#/Vol] 1.96 10*3/uL 0.83-4.51 [facility] Basophil percentageOrdered B y: Dr. Heller on 01-21-2023 Basophils/100 WBC (Bld) 0.9 % 0-1 [facility] Bilirubin [Mass/Vol] 0.30 mg/dL 0.20-1.00 [facility] Comment on above: For patients on eltr ombopag therapy, use of Dimension [employer] TBIL is not recommended. Chloride [Moles/Vol] 104 mmol/L 98-107 [facility] Eosinophils/100 WBC (Bld) 2.9 % 0-5 [facility] Glucose [Mass/Vol] 220 mg/dL 74-106 [facility] Comment on above: Glucose result great er than or equal to 200 mg/dLsuggests DIABETES MELLITUS per A.D.A. criteria. Neutrophils (Bld) [#/Vol] 5.1 10*3/uL 2.0-7.7 [facility] Neutrophils/100 WBC (Bld) 63.1 % 47-70 [facility] Potassium [Moles/Vol] 3.8 mmol/L 3.5-5.1 [facility] Protein [Mass/Vol] 7.7 g/dL 6.4-8.2 [facility] Sodium [Moles/Vol] 137 mmol/L 136-145 [facility] WBC (Bld) [#/Vol] 8.0 10*3/uL 4.4-11.0 [facility] Blood erythrocytes count (nu mber/volume)Ordered By: Dr. Heller on 01-21-2023 RBC (Bld) [#/Vol] 3.99 10*6/uL 4.2-5.4 [facility] Blood hemoglobin measurement (mass/volume)Ordered By: Dr. Heller on 01-21-2023 Hemoglobin (Bld) [Mass/Vol] 12.1 g/dL 12.0-15.0 [facility] Blood lymphocytes/100 leukoc ytesOrdered By: Dr. Heller on 01-21-2023 Lymphocytes/100 WBC (Bld) 24.5 % 19-41 [facility] Blood monocytes/100 leukocyt esOrdered By: Dr. Heller on 01-21-2023 Monocytes/100 WBC (Bld) 7.6 % 0-10 [facility] Blood platelet mean volumeOr dered By: Dr. Heller on 01-21-2023 Platelet mean volume (Bld) [Entitic vol] 9.5 fL 6.2-12.0 [facility] Determination of erythrocyte mean corpuscular volume (MCV)Ordered By: Dr. Heller on 01-21-2023 MCV (RBC) [Entitic vol] 96.2 fL 81-99 [facility] Hematocrit Auto (Bld) [Volum e fraction]Ordered By: Dr. Heller on 01-21-2023 Hematocrit (Bld) [Volume fraction] 38.4 % 37-47 [facility] Laboratory - Chemistry and C hemistry - challengeOrdered By: Dr. Heller on 01-21-2023 ALP [Catalytic activity/Vol] 73 U/L 45-117 [facility] ALT [Catalytic activity/Vol] 22 U/L 13-56 [facility] CO2 [Moles/Vol] 28.0 mmol/L 21.0-32.0 [facility] Globulin (S) [Mass/Vol] 4.8 g/dL 2.2-4.2 [facility] Urea nitrogen/Creatinine [Mass ratio] 18.0 mg/mg 10-20 [facility] Laboratory - Hematology and Cell countsOrdered By: Dr. Heller on 01-21-2023 Erythrocyte distribution width (RBC) [Entitic vol] 51.6 fL 35.1-43.9 [facility] Erythrocyte distribution width (RBC) [Ratio] 14.6 % 11.6-14.6 [facility] Immature granulocytes/100 WBC (Bld) 1.000 % 0.0-0.9 [facility] Comment on above: IG% - Immature Granu locytes (promyelocytes, myelocytes and metamyelocytes) > 1% indicates that a LEFT SHIFT is Present. MCH (RBC) [Entitic mass] 30.3 pg 27.0-32.0 [facility] Nucleated RBC/100 WBC (Bld) [Ratio] 0 % 0-5 [facility] MCHC Auto (RBC) [Mass/Vol]Or dered By: Dr. Heller on 01-21-2023 MCHC (RBC) [Mass/Vol] 31.5 g/dL 32-36 [facility] No Panel InformationOrdered By: Dr. Heller on 01-21-2023 Estimated GFR (MDRD) Amer 75 mL/min >60 [facility] Comment on above: GFR Calc Estimated GFR (MDRD) Non-Af Amer 62 mL/min >60 [facility] Comment on above: Non- GFR Calc Thyroid Stimulating Hormone (TSH) 3.09 uIU/mL 0.358-3.74 [facility] Vitamin D 25-Hydroxy 48.3 ng/mL [facility] Comment on above: Vitamin D 25(OH) Sta tus Range Deficiency <20 ng/mL (50nmol/L) Insufficiency 20 - 30 ng/mL (50 - 75 nmol/L) Sufficiency 30 - 100 ng/mL (75 - 250 nmol/L) Toxicity >100 ng/mL (>250 nmol/L) Platelets bldOrdered By: Dr. Heller on 01-21-2023 Platelets (Bld) [#/Vol] 257 10*3/uL 150-450 [facility] Serum or plasma albumin sarbjit urement (mass/volume)Ordered By: Dr. Heller on 01-21-2023 Albumin [Mass/Vol] 2.9 g/dL 3.2-5.0 [facility] Serum or plasma albumin/glob ulin mass ratioOrdered By: Dr. Heller on 01-21-2023 Albumin/Globulin [Mass ratio] 0.6 {ratio} 0.9-2.4 [facility] Serum or plasma calcium sarbjit urement (mass/volume)Ordered By: Dr. Heller on 01-21-2023 Calcium [Mass/Vol] 9.3 mg/dL 8.5-10.1 [facility] Serum or plasma creatinine m easurement (mass/volume)Ordered By: Dr. Heller on 01-21-2023 Creatinine [Mass/Vol] 0.94 mg/dL 0.55-1.02 [facility] Comment on above: The validity of the calculated GFR & GFRAA in patients over 70 years has not been determined. Clinical correlation is essential. Serum or plasma urea nitroge n measurement (mass/volume)Ordered By: Dr. Heller on 01-21-2023 Urea nitrogen [Mass/Vol] 17 mg/dL 7-18 [facility] Thin prep Papanicolaou smear with manual screeningOrdered By: Dr. Heller on 01-21-2023 Thin prep Papanicolaou smear with manual screening 30 U/L 15-37 [facility] Thin prep Papanicolaou smear with manual screening 5 5-15 [facility] Absolute lymphocyte countOrd ered By: Dr. Heller on 12-17-2022 Lymphocytes Auto (Unsp spec) [#/Vol] 2.09 10*3/uL 0.83-4.51 [facility] Basophil percentageOrdered B y: Dr. Heller on 12-17-2022 Basophils/100 WBC (Bld) 0.8 % 0-1 [facility] Bilirubin [Mass/Vol] 0.50 mg/dL 0.20-1.00 [facility] Comment on above: For patients on eltr ombopag therapy, use of Dimension [employer] TBIL is not recommended. Chloride [Moles/Vol] 103 mmol/L 98-107 [facility] Eosinophils/100 WBC (Bld) 3.4 % 0-5 [facility] Glucose [Mass/Vol] 135 mg/dL 74-106 [facility] Comment on above: Fasting Glucose resu lt greater than or equal to 126 mg/dL suggests DIABETES MELLITUS per A.D.A. criteria. Neutrophils (Bld) [#/Vol] 5.8 10*3/uL 2.0-7.7 [facility] Neutrophils/100 WBC (Bld) 64.6 % 47-70 [facility] Potassium [Moles/Vol] 4.0 mmol/L 3.5-5.1 [facility] Protein [Mass/Vol] 8.4 g/dL 6.4-8.2 [facility] Sodium [Moles/Vol] 139 mmol/L 136-145 [facility] WBC (Bld) [#/Vol] 9.0 10*3/uL 4.4-11.0 [facility] Blood erythrocytes count (nu mber/volume)Ordered By: Dr. Heller on 12-17-2022 RBC (Bld) [#/Vol] 4.13 10*6/uL 4.2-5.4 [facility] Blood hemoglobin measurement (mass/volume)Ordered By: Dr. Heller on 12-17-2022 Hemoglobin (Bld) [Mass/Vol] 12.6 g/dL 12.0-15.0 [facility] Blood lymphocytes/100 leukoc ytesOrdered By: Dr. Heller on 12-17-2022 Lymphocytes/100 WBC (Bld) 23.2 % 19-41 [facility] Blood monocytes/100 leukocyt esOrdered By: Dr. Heller on 12-17-2022 Monocytes/100 WBC (Bld) 7.6 % 0-10 [facility] Blood platelet mean volumeOr dered By: Dr. Heller on 12-17-2022 Platelet mean volume (Bld) [Entitic vol] 9.7 fL 6.2-12.0 [facility] Determination of erythrocyte mean corpuscular volume (MCV)Ordered By: Dr. Heller on 03-23-2023 MCV (RBC) [Entitic vol] 95.6 fL 81-99 [facility] Hematocrit Auto (Bld) [Volum e fraction]Ordered By: Dr. Heller on 12-17-2022 Hematocrit (Bld) [Volume fraction] 39.5 % 37-47 [facility] Laboratory - Chemistry and C hemistry - challengeOrdered By: Dr. Heller on 12-17-2022 ALP [Catalytic activity/Vol] 71 U/L 45-117 [facility] ALT [Catalytic activity/Vol] 22 U/L 13-56 [facility] CO2 [Moles/Vol] 26.0 mmol/L 21.0-32.0 [facility] Globulin (S) [Mass/Vol] 5.1 g/dL 2.2-4.2 [facility] Urea nitrogen/Creatinine [Mass ratio] 25.5 mg/mg 10-20 [facility] Laboratory - Hematology and Cell countsOrdered By: Dr. Heller on 12-17-2022 Erythrocyte distribution width (RBC) [Entitic vol] 48.5 fL 35.1-43.9 [facility] Erythrocyte distribution width (RBC) [Ratio] 13.9 % 11.6-14.6 [facility] Immature granulocytes/100 WBC (Bld) 0.400 % 0.0-0.9 [facility] Comment on above: IG% - Immature Granu locytes (promyelocytes, myelocytes and metamyelocytes) > 1% indicates that a LEFT SHIFT is Present. MCH (RBC) [Entitic mass] 30.5 pg 27.0-32.0 [facility] Nucleated RBC/100 WBC (Bld) [Ratio] 0 % 0-5 [facility] MCHC Auto (RBC) [Mass/Vol]Or dered By: Dr. Heller on 12-17-2022 MCHC (RBC) [Mass/Vol] 31.9 g/dL 32-36 [facility] No Panel InformationOrdered By: Dr. Heller on 12-17-2022 Estimated GFR (MDRD) Amer 79 mL/min >60 [facility] Comment on above: GFR Calc Estimated GFR (MDRD) Non-Af Amer 65 mL/min >60 [facility] Comment on above: Non- GFR Calc Thyroid Stimulating Hormone (TSH) 3.57 uIU/mL 0.358-3.74 [facility] Vitamin D 25-Hydroxy 47.7 ng/mL [facility] Comment on above: Vitamin D 25(OH) Sta tus Range Deficiency <20 ng/mL (50nmol/L) Insufficiency 20 - 30 ng/mL (50 - 75 nmol/L) Sufficiency 30 - 100 ng/mL (75 - 250 nmol/L) Toxicity >100 ng/mL (>250 nmol/L) Platelets bldOrdered By: Dr. Heller on 12-17-2022 Platelets (Bld) [#/Vol] 239 10*3/uL 150-450 [facility] Serum or plasma albumin sarbjit urement (mass/volume)Ordered By: Dr. Heller on 12-17-2022 Albumin [Mass/Vol] 3.3 g/dL 3.2-5.0 [facility] Serum or plasma albumin/glob ulin mass ratioOrdered By: Dr. Heller on 12-17-2022 Albumin/Globulin [Mass ratio] 0.6 {ratio} 0.9-2.4 [facility] Serum or plasma calcium sarbjit urement (mass/volume)Ordered By: Dr. Heller on 12-17-2022 Calcium [Mass/Vol] 10.6 mg/dL 8.5-10.1 [facility] Serum or plasma creatinine m easurement (mass/volume)Ordered By: Dr. Heller on 12-17-2022 Creatinine [Mass/Vol] 0.90 mg/dL 0.55-1.02 [facility] Comment on above: The validity of the calculated GFR & GFRAA in patients over 70 years has not been determined. Clinical correlation is essential. Serum or plasma urea nitroge n measurement (mass/volume)Ordered By: Dr. Heller on 12-17-2022 Urea nitrogen [Mass/Vol] 23 mg/dL 7-18 [facility] Thin prep Papanicolaou smear with manual screeningOrdered By: Dr. Heller on 12-17-2022 Thin prep Papanicolaou smear with manual screening 25 U/L 15-37 [facility] Thin prep Papanicolaou smear with manual screening 10 5-15 [facility] CNOVon 08-04-2022 CNOV Office Visit (VASSWS ) DEBORAHEDUAR ([id number]) 1950 F Date Time Provider Department 08/04/22 [...] Date Reviewed: 08/04/2022 Reviewed by: Rosemarie Marr, CT - Fully Assessed Reason for Visit: Established Patient [175] Primary Visit Diagnosis:Venous (peripheral) insufficiency [I87.2] Order(s):COMPRESSION STOCKINGS [[id number]] Order #: [id number] Prescriptions as of 08/17/2022 - rOPINIRole (REQUIP) 0.5 mg tablet Take by mouth. TAKING 2MG - benzonatate (TESSALON PERLE) 100 mg capsule - pnpicln-fqrq-orcbh-oreg-cap ryl 100 mg-150 mg- 50 mg-150 mg cap Take 500 mg by mouth. - COQ10, UBIQUINOL, ORAL Take 50 mg by mouth once daily. - pstssno-avplnuncm-ymkxlcn D3 500 mg-5 mcg (200 unit) per [...] mg cap Take by mouth every Wednesday,Wednesday,Wednesday. - GLUCOSAM HCL/MSM/CHONDRO FRANK A (GLUCOSAMINE TMT-TCE-FJABCYAVZH ORAL) Take by mouth. 1200 mg daily - Gelatin 650 mg capsule Take 1,300 mg by mouth once daily. - Lovastatin 40 mg tablet Take 40 mg by mouth daily at bedtime. - LEVOTHYROXINE SODIUM (LEVOTHYROXINE ORAL) Take by mouth. - metFORMIN 500 mg tablet Take 500 mg by mouth three times daily. - fluticasone 50 mcg/actuation nasal spray Use 1 [place] in each nostril once daily. - olmesartan [...] Status:Closed by GRISEL VILLANUEVA on 08/17/22 Normal [facility] Absolute lymphocyte counton 07-27-2022 Lymphocytes Auto (Unsp spec) [#/Vol] 2.04 10*3/uL 0.83-4.51 [facility] Work Phone: Basophil percentageon 2021 Basophils/100 WBC (Bld) 0.4 % 0-1 [facility] Work Phone: Eosinophils/100 WBC (Bld) 1.9 % 0-5 [facility] Work Phone: Neutrophils (Bld) [#/Vol] 8.5 10*3/uL 2.0-7.7 [facility] Work Phone: Neutrophils/100 WBC (Bld) 71.6 % 47-70 [facility] Work Phone: WBC (Bld) [#/Vol] 11.9 10*3/uL 4.4-11.0 [facility] Work Phone: Blood erythrocytes count (nu mber/volume)on 07-27-2022 RBC (Bld) [#/Vol] 3.78 10*6/uL 4.2-5.4 [facility] Work Phone: Blood hemoglobin measurement (mass/volume)on 07-27-2022 Hemoglobin (Bld) [Mass/Vol] 11.7 g/dL 12.0-15.0 [facility] Work Phone: Blood lymphocytes/100 leukoc yteson 07-27-2022 Lymphocytes/100 WBC (Bld) 17.2 % 19-41 [facility] Work Phone: Blood monocytes/100 leukocyt eson 07-27-2022 Monocytes/100 WBC (Bld) 8.1 % 0-10 [facility] Work Phone: Blood platelet adequacy dete ction by light microscopyon 07-27-2022 Platelets LM Ql (Bld) ADEQUATE ADEQ [facility] Work Phone: Blood platelet mean volumeon 07-27-2022 Platelet mean volume (Bld) [Entitic vol] 10.8 fL 6.2-12.0 [facility] Work Phone: Determination of erythrocyte mean corpuscular volume (MCV)on 07-27-2022 MCV (RBC) [Entitic vol] 95.8 fL 81-99 [facility] Work Phone: Hematocrit Auto (Bld) [Volum e fraction]on 07-27-2022 Hematocrit (Bld) [Volume fraction] 36.2 % 37-47 [facility] Work Phone: Laboratory - Hematology and Cell countson 07-27-2022 Erythrocyte distribution width (RBC) [Entitic vol] 50.7 fL 35.1-43.9 [facility] Work Phone: Erythrocyte distribution width (RBC) [Ratio] 14.6 % 11.6-14.6 [facility] Work Phone: Immature granulocytes/100 WBC (Bld) 0.800 % 0.0-0.9 [facility] Work Phone: Comment on above: IG% - Immature Granu locytes (promyelocytes, myelocytes and metamyelocytes) > 1% indicates that a LEFT SHIFT is Present. MCH (RBC) [Entitic mass] 31.0 pg 27.0-32.0 [facility] Work Phone: Nucleated RBC/100 WBC (Bld) [Ratio] 0 % 0-5 [facility] Work Phone: MCHC Auto (RBC) [Mass/Vol]on 07-27-2022 MCHC (RBC) [Mass/Vol] 32.3 g/dL 32-36 [facility] Work Phone: No Panel Informationon 07-27 Vitamin D 25-Hydroxy 46.8 ng/mL [facility] Work Phone: Comment on above: Vitamin D 25(OH) Sta tus Range Deficiency <20 ng/mL (50nmol/L) Insufficiency 20 - 30 ng/mL (50 - 75 nmol/L) Sufficiency 30 - 100 ng/mL (75 - 250 nmol/L) Toxicity >100 ng/mL (>250 nmol/L) Platelets bldon 07-27-2022 Platelets (Bld) [#/Vol] 229 10*3/uL 150-450 [facility] Work Phone: [phone] RBC morphologyon 07-27-2022 RBC morphology finding Nom (Bld) NORM C+C NORMAL NORM C&C [facility] Work Phone: Absolute lymphocyte counton 04-07-2022 Lymphocytes Auto (Unsp spec) [#/Vol] 2.26 10*3/uL 0.83-4.51 [facility] Work Phone: Basophil percentageon 2021 Basophils/100 WBC (Bld) 0.7 % 0-1 [facility] Work Phone: [phone] Bilirubin [Mass/Vol] 0.30 mg/dL 0.20-1.00 [facility] Work Phone: Comment on above: For patients on eltr ombopag therapy, use of Dimension [place] TBIL is not recommended. Chloride [Moles/Vol] 102 mmol/L 98-107 [facility] Work Phone: Eosinophils/100 WBC (Bld) 1.8 % 0-5 [facility] Work Phone: Glucose [Mass/Vol] 97 mg/dL 74-106 [facility] Work Phone: Neutrophils (Bld) [#/Vol] 6.1 10*3/uL 2.0-7.7 [facility] Work Phone: Neutrophils/100 WBC (Bld) 64.9 % 47-70 [facility] Work Phone: [phone] Potassium [Moles/Vol] 4.7 mmol/L 3.5-5.1 [facility] Work Phone: [phone] Protein [Mass/Vol] 7.8 g/dL 6.4-8.2 [facility] Work Phone: Sodium [Moles/Vol] 138 mmol/L 136-145 [facility] Work Phone: WBC (Bld) [#/Vol] 9.5 10*3/uL 4.4-11.0 [facility] Work Phone: Blood erythrocytes count (nu mber/volume)on 04-07-2022 RBC (Bld) [#/Vol] 3.89 10*6/uL 4.2-5.4 [facility] Work Phone: Blood hemoglobin measurement (mass/volume)on 04-07-2022 Hemoglobin (Bld) [Mass/Vol] 11.6 g/dL 12.0-15.0 [facility] Work Phone: Blood lymphocytes/100 leukoc yteson 04-07-2022 Lymphocytes/100 WBC (Bld) 23.9 % 19-41 [facility] Work Phone: Blood monocytes/100 leukocyt eson 04-07-2022 Monocytes/100 WBC (Bld) 7.7 % 0-10 [facility] Work Phone: Blood platelet mean volumeon 04-07-2022 Platelet mean volume (Bld) [Entitic vol] 9.6 fL 6.2-12.0 [facility] Work Phone: [phone] Determination of erythrocyte mean corpuscular volume (MCV)on 04-07-2022 MCV (RBC) [Entitic vol] 93.8 fL 81-99 [facility] Work Phone: Hematocrit Auto (Bld) [Volum e fraction]on 04-07-2022 Hematocrit (Bld) [Volume fraction] 36.5 % 37-47 [facility] Work Phone: [phone] Laboratory - Chemistry and C hemistry - challengeon 04-07-2022 ALP [Catalytic activity/Vol] 68 U/L 45-117 [facility] Work Phone: ALT [Catalytic activity/Vol] 25 U/L 13-56 [facility] Work Phone: CO2 [Moles/Vol] 29.0 mmol/L 21.0-32.0 [facility] Work Phone: Globulin (S) [Mass/Vol] 4.6 g/dL 2.2-4.2 [facility] Work Phone: Urea nitrogen/Creatinine [Mass ratio] 26.5 mg/mg 10-20 [facility] Work Phone: Laboratory - Hematology and Cell countson 04-07-2022 Erythrocyte distribution width (RBC) [Entitic vol] 51.9 fL 35.1-43.9 [facility] Work Phone: Erythrocyte distribution width (RBC) [Ratio] 15.3 % 11.6-14.6 [facility] Work Phone: Immature granulocytes/100 WBC (Bld) 1.000 % 0.0-0.9 [facility] Work Phone: Comment on above: IG% - Immature Granu locytes (promyelocytes, myelocytes and metamyelocytes) > 1% indicates that a LEFT SHIFT is Present. MCH (RBC) [Entitic mass] 29.8 pg 27.0-32.0 [facility] Work Phone: Nucleated RBC/100 WBC (Bld) [Ratio] 0 % 0-5 [facility] Work Phone: MCHC Auto (RBC) [Mass/Vol]on 04-07-2022 MCHC (RBC) [Mass/Vol] 31.8 g/dL 32-36 [facility]: No Panel Informationon 04-07 Estimated GFR (MDRD) Amer 68 mL/min >60 [facility] Work Phone: Comment on above: GFR Calc Estimated GFR (MDRD) Non-Af Amer 56 mL/min >60 [facility] Work Phone: Comment on above: Non- GFR Calc Thyroid Stimulating Hormone (TSH) 2.61 uIU/mL 0.358-3.74 [facility] Work Phone: Vitamin D 25-Hydroxy 37.1 ng/mL [facility] Work Phone: Comment on above: Vitamin D 25(OH) Sta tus Range Deficiency <20 ng/mL (50nmol/L) Insufficiency 20 - 30 ng/mL (50 - 75 nmol/L) Sufficiency 30 - 100 ng/mL (75 - 250 nmol/L) Toxicity >100 ng/mL (>250 nmol/L) Platelets bldon 04-07-2022 Platelets (Bld) [#/Vol] 252 10*3/uL 150-450 [facility] Work Phone: Serum or plasma albumin sarbjit urement (mass/volume)on 04-07-2022 Albumin [Mass/Vol] 3.2 g/dL 3.2-5.0 [facility] Work Phone: Serum or plasma albumin/glob ulin mass ratioon 04-07-2022 Albumin/Globulin [Mass ratio] 0.7 {ratio} 0.9-2.4 [facility] Work Phone: Serum or plasma calcium sarbjit urement (mass/volume)on 04-07-2022 Calcium [Mass/Vol] 10.0 mg/dL 8.5-10.1 [facility] Work Phone: Serum or plasma creatinine m easurement (mass/volume)on 04-07-2022 Creatinine [Mass/Vol] 1.02 mg/dL 0.55-1.02 [facility] Work Phone: Comment on above: The validity of the calculated GFR & GFRAA in patients over 70 years has not been determined. Clinical correlation is essential. Serum or plasma urea nitroge n measurement (mass/volume)on 04-07-2022 Urea nitrogen [Mass/Vol] 27 mg/dL 7-18 [facility] Work Phone: Thin prep Papanicolaou smear with manual screeningon 04-07-2022 Thin prep Papanicolaou smear with manual screening 26 U/L 15-37 [facility] Work Phone: Thin prep Papanicolaou smear with manual screening 7 5-15 [facility] Work Phone: Absolute lymphocyte counton 01-20-2022 Lymphocytes Auto (Unsp spec) [#/Vol] 2.53 10*3/uL 0.83-4.51 [facility] Work Phone: Basophil percentageon 2021 Basophils/100 WBC (Bld) 0.5 % 0-1 [facility] Work Phone: Bilirubin [Mass/Vol] 0.30 mg/dL 0.20-1.00 [facility] Work Phone: Comment on above: For patients on eltr ombopag therapy, use of Dimension [place] TBIL is not recommended. Chloride [Moles/Vol] 102 mmol/L 98-107 [facility] Work Phone: Eosinophils/100 WBC (Bld) 2.2 % 0-5 [facility] Work Phone: Glucose [Mass/Vol] 100 mg/dL 74-106 [facility] Work Phone: Comment on above: Fasting Glucose resu lt from 100 to 125 mg/dL suggests IMPAIRED HOMEOSTASIS per A.D.A. criteria. Neutrophils (Bld) [#/Vol] 6.9 10*3/uL 2.0-7.7 [facility] Work Phone: Neutrophils/100 WBC (Bld) 64.1 % 47-70 [facility] Work Phone: Potassium [Moles/Vol] 4.4 mmol/L 3.5-5.1 [facility] Work Phone: Protein [Mass/Vol] 8.0 g/dL 6.4-8.2 [facility] Work Phone: Sodium [Moles/Vol] 137 mmol/L 136-145 [facility] Work Phone: WBC (Bld) [#/Vol] 10.7 10*3/uL 4.4-11.0 [facility] Work Phone: Blood erythrocytes count (nu mber/volume)on 01-20-2022 RBC (Bld) [#/Vol] 3.76 10*6/uL 4.2-5.4 [facility] Work Phone: Blood hemoglobin measurement (mass/volume)on 01-20-2022 Hemoglobin (Bld) [Mass/Vol] 11.4 g/dL 12.0-15.0 [facility] Work Phone: Blood lymphocytes/100 leukoc yteson 01-20-2022 Lymphocytes/100 WBC (Bld) 23.7 % 19-41 [facility] Work Phone: Blood monocytes/100 leukocyt eson 01-20-2022 Monocytes/100 WBC (Bld) 8.9 % 0-10 [facility] Work Phone: Blood platelet mean volumeon 01-20-2022 Platelet mean volume (Bld) [Entitic vol] 9.4 fL 6.2-12.0 [facility] Work Phone: Determination of erythrocyte mean corpuscular volume (MCV)on 01-20-2022 MCV (RBC) [Entitic vol] 93.9 fL 81-99 [facility] Work Phone: Hematocrit Auto (Bld) [Volum e fraction]on 01-20-2022 Hematocrit (Bld) [Volume fraction] 35.3 % 37-47 [facility] Work Phone: [phone] Laboratory - Chemistry and C hemistry - challengeon 01-20-2022 ALP [Catalytic activity/Vol] 59 U/L 45-117 [facility] Work Phone: ALT [Catalytic activity/Vol] 29 U/L 13-56 [facility] Work Phone: CO2 [Moles/Vol] 29.0 mmol/L 21.0-32.0 [facility] Work Phone: Globulin (S) [Mass/Vol] 4.6 g/dL 2.2-4.2 [facility] Work Phone: Urea nitrogen/Creatinine [Mass ratio] 34.0 mg/mg 10-20 [facility] Work Phone: Laboratory - Hematology and Cell countson 01-20-2022 Erythrocyte distribution width (RBC) [Entitic vol] 48.6 fL 35.1-43.9 [facility] Work Phone: Erythrocyte distribution width (RBC) [Ratio] 14.1 % 11.6-14.6 [facility] Work Phone: Immature granulocytes/100 WBC (Bld) 0.600 % 0.0-0.9 [facility] Work Phone: Comment on above: IG% - Immature Granu locytes (promyelocytes, myelocytes and metamyelocytes) > 1% indicates that a LEFT SHIFT is Present. MCH (RBC) [Entitic mass] 30.3 pg 27.0-32.0 [facility] Work Phone: Nucleated RBC/100 WBC (Bld) [Ratio] 0 % 0-5 [facility] Work Phone: MCHC Auto (RBC) [Mass/Vol]on 01-20-2022 MCHC (RBC) [Mass/Vol] 32.3 g/dL 32-36 [facility] Work Phone: No Panel Informationon 01-20 Estimated GFR (MDRD) Amer 95 mL/min >60 [facility] Work Phone: Comment on above: GFR Calc Estimated GFR (MDRD) Non-Af Amer 79 mL/min >60 [facility] Work Phone: Comment on above: Non- GFR Calc Thyroid Stimulating Hormone (TSH) 2.53 uIU/mL 0.358-3.74 [facility] Work Phone: Vitamin D 25-Hydroxy 46.5 ng/mL [facility] Work Phone: Comment on above: Vitamin D 25(OH) Sta tus Range Deficiency <20 ng/mL (50nmol/L) Insufficiency 20 - 30 ng/mL (50 - 75 nmol/L) Sufficiency 30 - 100 ng/mL (75 - 250 nmol/L) Toxicity >100 ng/mL (>250 nmol/L) Platelets bldon 01-20-2022 Platelets (Bld) [#/Vol] 282 10*3/uL 150-450 [facility] Work Phone: [phone] Serum or plasma albumin sarbjit urement (mass/volume)on 01-20-2022 Albumin [Mass/Vol] 3.4 g/dL 3.2-5.0 [facility] Work Phone: [phone] Serum or plasma albumin/glob ulin mass ratioon 01-20-2022 Albumin/Globulin [Mass ratio] 0.7 {ratio} 0.9-2.4 [facility] Work Phone: [phone] Serum or plasma calcium sarbjit urement (mass/volume)on 01-20-2022 Calcium [Mass/Vol] 9.6 mg/dL 8.5-10.1 [facility] Work Phone: Serum or plasma creatinine m easurement (mass/volume)on 01-20-2022 Creatinine [Mass/Vol] 0.76 mg/dL 0.55-1.02 [facility] Work Phone: Comment on above: The validity of the calculated GFR & GFRAA in patients over 70 years has not been determined. Clinical correlation is essential. Serum or plasma urea nitroge n measurement (mass/volume)on 01-20-2022 Urea nitrogen [Mass/Vol] 26 mg/dL 7-18 [facility] Work Phone: Thin prep Papanicolaou smear with manual screeningon 01-20-2022 Thin prep Papanicolaou smear with manual screening 28 U/L 15-37 [facility] Work Phone: [phone] Thin prep Papanicolaou smear with manual screening 6 5-15 [facility] Work Phone: [phone] Absolute lymphocyte counton 10-21-2021 Lymphocytes Auto (Unsp spec) [#/Vol] 2.34 10*3/uL 0.83-4.51 [facility] Work Phone: Basophil percentageon 2021 Basophils/100 WBC (Bld) 0.6 % 0-1 [facility] Work Phone: [phone] Bilirubin [Mass/Vol] 0.40 mg/dL 0.20-1.00 [facility] Work Phone: [phone] Comment on above: For patients on eltr ombopag therapy, use of Dimension [place] TBIL is not recommended. Chloride [Moles/Vol] 101 mmol/L 98-107 [facility] Work Phone: Eosinophils/100 WBC (Bld) 1.1 % 0-5 [facility] Work Phone: [phone] Glucose [Mass/Vol] 173 mg/dL 74-106 [facility] Work Phone: [phone] Comment on above: Fasting Glucose resu lt greater than or equal to 126 mg/dL suggests DIABETES MELLITUS per A.D.A. criteria. Neutrophils (Bld) [#/Vol] 5.5 10*3/uL 2.0-7.7 [facility] Work Phone: [phone] Neutrophils/100 WBC (Bld) 62.8 % 47-70 [facility] Work Phone: [phone] Potassium [Moles/Vol] 4.2 mmol/L 3.5-5.1 [facility] Work Phone: [phone] Protein [Mass/Vol] 7.8 g/dL 6.4-8.2 [facility] Work Phone: [phone] Sodium [Moles/Vol] 138 mmol/L 136-145 [facility] Work Phone: [phone] WBC (Bld) [#/Vol] 8.7 10*3/uL 4.4-11.0 [facility] Work Phone: [phone] Blood erythrocytes count (nu mber/volume)on 10-21-2021 RBC (Bld) [#/Vol] 4.20 10*6/uL 4.2-5.4 [facility] Work Phone: [phone] Blood hemoglobin measurement (mass/volume)on 01-25-2022 Hemoglobin (Bld) [Mass/Vol] 12.3 g/dL 12.0-15.0 [facility] Work Phone: Blood lymphocytes/100 leukoc yteson 10-21-2021 Lymphocytes/100 WBC (Bld) 26.8 % 19-41 [facility] Work Phone: Blood monocytes/100 leukocyt eson 10-21-2021 Monocytes/100 WBC (Bld) 8.0 % 0-10 [facility] Work Phone: Blood platelet mean volumeon 10-21-2021 Platelet mean volume (Bld) [Entitic vol] 9.9 fL 6.2-12.0 [facility] Work Phone: [phone] Determination of erythrocyte mean corpuscular volume (MCV)on 10-21-2021 MCV (RBC) [Entitic vol] 91.9 fL 81-99 [facility] Work Phone: Hematocrit Auto (Bld) [Volum e fraction]on 10-21-2021 Hematocrit (Bld) [Volume fraction] 38.6 % 37-47 [facility] Work Phone: [phone] Laboratory - Chemistry and C hemistry - challengeon 10-21-2021 ALP [Catalytic activity/Vol] 68 U/L 45-117 [facility] Work Phone: ALT [Catalytic activity/Vol] 28 U/L 13-56 [facility] Work Phone: [phone] CO2 [Moles/Vol] 29.0 mmol/L 21.0-32.0 [facility] Work Phone: [phone] Globulin (S) [Mass/Vol] 4.6 g/dL 2.2-4.2 [facility] Work Phone: [phone] Urea nitrogen/Creatinine [Mass ratio] 19.0 mg/mg 10-20 [facility] Work Phone: Laboratory - Hematology and Cell countson 10-21-2021 Erythrocyte distribution width (RBC) [Entitic vol] 57.0 fL 35.1-43.9 [facility] Work Phone: Erythrocyte distribution width (RBC) [Ratio] 16.8 % 11.6-14.6 [facility] Work Phone: Immature granulocytes/100 WBC (Bld) 0.700 % 0.0-0.9 [facility] Work Phone: Comment on above: IG% - Immature Granu locytes (promyelocytes, myelocytes and metamyelocytes) > 1% indicates that a LEFT SHIFT is Present. MCH (RBC) [Entitic mass] 29.3 pg 27.0-32.0 [facility] Work Phone: Nucleated RBC/100 WBC (Bld) [Ratio] 0 % 0-5 [facility] Work Phone: MCHC Auto (RBC) [Mass/Vol]on 10-21-2021 MCHC (RBC) [Mass/Vol] 31.9 g/dL 32-36 [facility] Work Phone: No Panel Informationon 10-21 Estimated GFR (MDRD) Amer 66 mL/min >60 [facility] Work Phone: Comment on above: GFR Calc Estimated GFR (MDRD) Non-Af Amer 55 mL/min >60 [facility] Work Phone: Comment on above: Non- GFR Calc Thyroid Stimulating Hormone (TSH) 2.44 uIU/mL 0.358-3.74 [facility] Work Phone: Vitamin D 25-Hydroxy 50.1 ng/mL [facility] Work Phone: Comment on above: Vitamin D 25(OH) Sta tus Range Deficiency <20 ng/mL (50nmol/L) Insufficiency 20 - 30 ng/mL (50 - 75 nmol/L) Sufficiency 30 - 100 ng/mL (75 - 250 nmol/L) Toxicity >100 ng/mL (>250 nmol/L) Platelets bldon 10-21-2021 Platelets (Bld) [#/Vol] 241 10*3/uL 150-450 [facility] Work Phone: Serum or plasma albumin sarbjit urement (mass/volume)on 10-21-2021 Albumin [Mass/Vol] 3.2 g/dL 3.2-5.0 [facility] Work Phone: Serum or plasma albumin/glob ulin mass ratioon 10-21-2021 Albumin/Globulin [Mass ratio] 0.7 {ratio} 0.9-2.4 [facility] Work Phone: Serum or plasma calcium sarbjit urement (mass/volume)on 10-21-2021 Calcium [Mass/Vol] 10.0 mg/dL 8.5-10.1 [facility] Work Phone: Serum or plasma creatinine m easurement (mass/volume)on 10-21-2021 Creatinine [Mass/Vol] 1.05 mg/dL 0.55-1.02 [facility] Work Phone: Comment on above: The validity of the calculated GFR & GFRAA in patients over 70 years has not been determined. Clinical correlation is essential. Serum or plasma urea nitroge n measurement (mass/volume)on 10-21-2021 Urea nitrogen [Mass/Vol] 20 mg/dL 7-18 [facility] Work Phone: Thin prep Papanicolaou smear with manual screeningon 10-21-2021 Thin prep Papanicolaou smear with manual screening 31 U/L 15-37 [facility] Work Phone: Thin prep Papanicolaou smear with manual screening 8 5-15 [facility] Work Phone: CNOVon 07-25-2019 CNOV Office Visit (URR) EDUAR CABRERA ([id number]) 1950 F Date Time Provider Department 07/25/19 3:30 PM ABDULLAHI BARKER URR During your visit today, we recorded the following information about you: Abdullahi Barker MD 07/26/2019 9:57 AM Signed Previous notes from 03/01/2018 was imported as a reference for the current encounter. All information in this note has been verified: Data or information that hasn't changed was retained from previous note and the rest was revised or updated where relevant. [facility] PATIENT INFORMATION: Eduar Cabrera REFERRING M.D.: [place] [id number] [facility] [address] ===== CHIEF COMPLAINT: Bilateral renal calculi, stable stones, [...] 50 mg by mouth once daily. - hxalcfg-akpcnkxxs-zizyozc D3 (CALCIUM 500+D) 500 mg(1,250mg) -200 unit [...] mg cap Take by mouth every Wednesday,Wednesday,Wednesday. - GLUCOSAM HCL/MSM/CHONDRO FRANK A (GLUCOSAMINE HAW-DTP-ZJFIPCNRWR ORAL) Take by mouth. 1200 mg daily - Gelatin 650 mg capsule Take 1,300 mg by mouth once daily. - Lovastatin 40 mg tablet Take 40 mg by mouth daily at bedtime. - LEVOTHYROXINE SODIUM (LEVOTHYROXINE ORAL) Take by mouth. - metFORMIN 500 mg tablet Take 500 mg by mouth three times daily. - fluticasone 50 mcg/actuation nasal spray Use 1 [place] in each nostril once daily. - olmesartan [...] Procedure Laterality Date - CATARACT SURGERY, COMPLEX [facility] FAMILY HISTORY Problem Relation Age of Onset [...] Findings are suggestive of bilateral renal calculi. 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 Transcribe Date/Time: Jul 20 2019 ?5:07P Dictated by : JB MORATAYA MD KUSalazar December 2017 IMPRESSION: Bilateral renal stones similar to the previous study. 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 Transcribe Date/Time: Dec ?4:57P KUB January 2017 IMPRESSION: Non- specific bowel gas pattern/ Bilateral renal calcifications without significant change Lace Winder: [employer] ? Transcribe Date/Time: January ?5:59P Dictated by : MD CANDICE ESCOBEDO December 2015 IMPRESSION: STABLE BILATERAL NEPHROLITHIASIS Lace Winder: ANDREW Transcribe Date/Time: Jan 07 2016 2:22P Dictated by : MD CANDICE TORRES March 2015 IMPRESSION: STABLE BILATERAL RENAL CALCULI Lace Winder: ANDREW Transcribe Date/Time: Apr 02 2015 6:57P Dictated by : FLACO GUTIERREZ MD This examination was interpreted and the report reviewed and electronically signed by: FLACO GUTIERREZ MD On Apr 02 2015 6:57PM US renal IMPRESSION: Bilateral shadowing renal calculi, as described. Lace Winder: PSC Transcribe Date/Time: Apr 02 2015 3:32P Dictated by : TREY THORNTON MD This examination was interpreted and the report reviewed and electronically signed by: TREY THORNTON MD On Apr 02 2015 3:32PM DATE OF EXAM: Jun 23 2012 2:30PM [facility] 0345 - CT UROGRAM / PROCEDURE REASON: URINARY TRACT INFECTION, SITE NOT SPECIFIED IMPRESSION: Bilateral nonobstructing lower pole renal calculi. Diverticulosis of the colon without CT findings of diverticulitis. URINALYSIS: see laboratory report No blood, small dar 07/09/2015 IMPRESSION: CONDITION SPECIFIC ASSESSMENT (ICD10) Bilateral kidney [...] a straight cath- can do this with PA/BAKER HELPER at [place]. Review in clinic: 18 months and PRN, [...] complete nursing assessment. Referring Provider: ABDULLAHI BARKER [[id number]] Allergies As of Date: 07/25/2019 Noted Allergy [...] Diagnosis:Kidney stones [N20.0] Order(s):XR ABDOMEN 1V SUPINE [[id number]] Order #: [id number] FUTURE URINALYSIS WITH MICROSCOPIC [SQUAWMIC] Order #: [id number] FUTURE Prescriptions as of 07/25/2019 Sig: COQ10 [...] Take by mouth every Wednesday,* * GLUCOSAMINE FNV-IPB-EEMVQFSLT* Take by mouth. 1200 mg daily * GELATIN 650 MG CAPSULE Take 1,300 mg by mouth once d* * LOVASTATIN 40 MG TABLET Take 40 mg by mouth daily at * * LEVOTHYROXINE ORAL Take by mouth. * METFORMIN 500 MG TABLET Take 500 mg by mouth three ti* * FLUTICASONE PROPIONATE 50 MCG* Use 1 [place] in each nostril o* * OLMESARTAN 20 [...] unspecified genitourina*INVALID FOR* Visit Notes: >> Gunjan Celeste Jul 25, 2019 4:09 PM Status: Signed Assessment interrupted by medical provider, unable to complete nursing assessment. Encounter Status:Closed by ABDULLAHI BARKER MD on 07/26/19 [facility] PROGRESSon 07-25-2019 PROGRESS HNO ID: [id number] Author: Abdullahi Barker Service: ? Author Type: Physician Type: Progress Notes Filed: 07/26/2019 9:57 AM Note Text: Previous notes from 03/01/2018 was imported as a reference for the current encounter. All information in this note has been verified: Data or information that hasn't changed was retained from previous note and the rest was revised or updated where relevant. [facility] PATIENT INFORMATION: Eduar Eastman Deborah REFERRING M.D.: [place] [address] [facility] [address] ===== CHIEF COMPLAINT: Bilateral renal calculi, stable stones, [...] 50 mg by mouth once daily. - yzbdrmc-cozcihuqs-oqiozbt D3 (CALCIUM 500+D) 500 mg(1,250mg) -200 unit [...] mg cap Take by mouth every Wednesday,Wednesday,Wednesday. - GLUCOSAM HCL/MSM/CHONDRO FRANK A (GLUCOSAMINE QQT-UXY-TPNZEPOCHC ORAL) Take by mouth. 1200 mg daily - Gelatin 650 mg capsule Take 1,300 mg by mouth once daily. - Lovastatin 40 mg tablet Take 40 mg by mouth daily at bedtime. - LEVOTHYROXINE SODIUM (LEVOTHYROXINE ORAL) Take by mouth. - metFORMIN 500 mg tablet Take 500 mg by mouth three times daily. - fluticasone 50 mcg/actuation nasal spray Use 1 [place] in each nostril once daily. - olmesartan [...] Procedure Laterality Date - CATARACT SURGERY, COMPLEX [facility] FAMILY HISTORY Problem Relation Age of Onset [...] Findings are suggestive of bilateral renal calculi. 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 Transcribe Date/Time: Jul 20 2019 ?5:07P Dictated by : JB MORATAYA MD KUB December 2017 IMPRESSION: Bilateral renal stones similar to the previous study. 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 Transcribe Date/Time: Dec ?2017 ?4:57P KUB January 2017 IMPRESSION: Non- specific bowel gas pattern/ Bilateral renal calcifications without significant change Lace Winder: PSCSalazar ? Transcribe Date/Time: January ?5:59P Dictated by : RYANN VÁZQUEZ MD KUB December 2015 IMPRESSION: STABLE BILATERAL NEPHROLITHIASIS Lace W[facility]: [facility] Transcribe Date/Time: Jan 07 2016 2:22P Dictated by : FLACO GUTIERREZ MD KUB March 2015 IMPRESSION: STABLE BILATERAL RENAL CALCULI Lace Winder: [facility] Transcribe Date/Time: Apr 02 2015 6:57P Dictated by : FLACO GUTIERREZ MD This examination was interpreted and the report reviewed and electronically signed by: FLACO GUTIERREZ MD On Apr 02 2015 6:57PM US renal IMPRESSION: Bilateral shadowing renal calculi, as described. Lace Winder: ANDREW Transcribe Date/Time: Apr 02 2015 3:32P Dictated by : TREY THORNTON MD This examination was interpreted and the report reviewed and electronically signed by: TREY THORNTON MD On Apr 02 2015 3:32PM DATE OF EXAM: Jun 23 2012 2:30PM [facility] 0345 - CT UROGRAM / PROCEDURE REASON: URINARY TRACT INFECTION, SITE NOT SPECIFIED IMPRESSION: Bilateral nonobstructing lower pole renal calculi. Diverticulosis of the colon without CT findings of diverticulitis. URINALYSIS: see laboratory report No blood, small dar 07/09/2015 IMPRESSION: CONDITION SPECIFIC ASSESSMENT (ICD10) Bilateral kidney [...] a straight cath- can do this with PA/BAKER HELPER at [place]. Review in clinic: 18 months and PRN, with the above investigations. Consultation requested by Dr. Villagomez for an opinion regarding stones, and my final recommendations will be communicated back to the requesting physician by way of shared Medical record, fax or letter via US mail. Abdullahi Barker MD [facility] No Panel Information SARS-CoV-2 & FLU Antigen (Rapid) [facility] Work Phone: Vital Signs Date Time Vital Sign Value Performing Clinician Facility 05-15-2025 13:18-0400 Body temperature 97.9 [degF] Dr. Corby Heller MD Work Phone: [facility] 05-15-2025 13:18-0400 Diastolic blood pressure 69 mm[Hg] Dr. Corby Heller MD Work Phone: [facility] 05-15-2025 13:18-0400 Heart rate 69 /min Dr. Corby Heller MD Work Phone: [facility] 05-15-2025 13:18-0400 Respiratory rate 16 /min Dr. Corby Heller MD Work Phone: [facility] 05-15-2025 13:18-0400 SaO2% (BldA) [Mass fraction] 97 % Dr. Corby Heller MD Work Phone: 7(829)456-827766 [place] [address] 05-15-2025 13:18-0400 Systolic blood pressure 121 mm[Hg] Dr. Corby Heller MD Work Phone: 3(326)700-463216 [place] [address] 05-14-2025 02:40-0400 Inhaled oxygen flow rate 1 L/min Dr. Corby Heller MD Work Phone: 0(549)201-574916 [place] [address] 05-11-2025 10:43-0400 Body height 152.[address] Corby Heller MD Work Phone: 2(942)476-651716 [place] [address] 05-11-2025 10:43-0400 Body weight 115.[address] Corby Heller MD Work Phone: 0(515)322-773116 [place] [address] 05-11-2025 10:00-0400 Heart rate 76 /min Dr. Corby Heller MD Work Phone: 4(533)101-611016 [place] [address] 05-11-2025 10:00-0400 Inhaled oxygen flow rate 1 L/min Dr. Corby Heller MD Work Phone: 7(644)156-106316 [place] [address] 05-11-2025 10:00-0400 Respiratory rate 20 /min Dr. Corby Heller MD Work Phone: 6(472)489-143016 [place] [address] 05-11-2025 10:00-0400 SaO2% (BldA) [Mass fraction] 96 % Dr. Corby Heller MD Work Phone: 8(404)287-946716 [place] [address] 05-11-2025 09:40-0400 Body temperature 98.6 [degF] Dr. Corby Heller MD Work Phone: 2(871)288-819316 [place] [address] 05-11-2025 09:40-0400 Diastolic blood pressure 59 mm[Hg] Dr. Corby Heller MD Work Phone: 4(296)333-424716 [place] [address] 05-11-2025 09:40-0400 Systolic blood pressure 107 mm[Hg] Dr. Corby Heller MD Work Phone: 9(985)622-982716 [place] [address] 05-10-2025 20:41-0400 Body mass index (BMI) [Ratio] 49.6 kg/m2 Dr. Corby Heller MD Work Phone: [facility] 05-10-2025 19:11-0400 Body temperature 100.3 [degF] Dr. Corby Heller MD Work Phone: 1(570)815-865266 [place] [address] 05-10-2025 19:11-0400 Diastolic blood pressure 91 mm[Hg] Dr. Corby Heller MD Work Phone: 9(651)607-700366 [place] [address] 05-10-2025 19:11-0400 Heart rate 90 /min Dr. Corby Heller MD Work Phone: 2(906)328-730366 [place] [address] 05-10-2025 19:11-0400 Inhaled oxygen flow rate 2 L/min Dr. Corby Heller MD Work Phone: 0(892)056-665516 [place] [address] 05-10-2025 19:11-0400 Respiratory rate 20 /min Dr. Corby Heller MD Work Phone: 9(926)253-937016 [place] [address] 05-10-2025 19:11-0400 SaO2% (BldA) [Mass fraction] 100 % Dr. Corby Heller MD Work Phone: 6(127)004-513366 [place] [address] 05-10-2025 19:11-0400 Systolic blood pressure 148 mm[Hg] Dr. Corby Heller MD Work Phone: 2(061)175-723516 [place] [address] 05-10-2025 14:51-0400 Body height 157.[address] Corby Heller MD Work Phone: 9(935)887-455016 [place] [address] 05-10-2025 14:51-0400 Body mass index (BMI) [Ratio] 47.9 kg/m2 Dr. Corby Heller MD Work Phone: 7(565)561-238966 [place] [address] 05-10-2025 14:51-0400 Body weight [address] Corby Heller MD Work Phone: 7(894)316-759216 [place] [address] 02-15-2025 15:57-0400 Body height 157.[address] Corby Heller MD Work Phone: 2(573)201-135516 [place] [address] 01-26-2025 14:39-0400 Diastolic blood pressure 81 mm[Hg] Dr. Corby Heller MD Work Phone: [facility] 01-26-2025 14:39-0400 Heart rate 75 /min Dr. Corby Heller MD Work Phone: [facility] 01-26-2025 14:39-0400 Respiratory rate 18 /min Dr. Corby Heller MD Work Phone: [facility] 01-26-2025 14:39-0400 SaO2% (BldA) [Mass fraction] 96 % Dr. Corby Heller MD Work Phone: [facility] 01-26-2025 14:39-0400 Systolic blood pressure 138 mm[Hg] Dr. Corby Heller MD Work Phone: 7(999)957-421866 [place] [address] 01-18-2025 14:52-0400 Diastolic blood pressure 58 mm[Hg] Dr. Corby Heller MD Work Phone: 8(414)376-924635 [address] 01-18-2025 14:52-0400 Heart rate 88 /min Dr. Corby Heller MD Work Phone: 1(739)507-214366 [place] [address] 01-18-2025 14:52-0400 Respiratory rate 18 /min Dr. Corby Heller MD Work Phone: 0(493)067-146766 [place] [address] 01-18-2025 14:52-0400 SaO2% (BldA) [Mass fraction] 92 % Dr. Corby Heller MD Work Phone: [facility] 01-18-2025 14:52-0400 Systolic blood pressure 110 mm[Hg] Dr. Corby Heller MD Work Phone: [facility] 01-01-2025 14:48-0400 Body height 157.[address] Corby Heller MD Work Phone: [facility] 01-01-2025 14:48-0400 Body temperature 97.7 [degF] Dr. Corby Heller MD Work Phone: 5(919)237-814766 [place] [address] 01-01-2025 14:48-0400 Diastolic blood pressure 84 mm[Hg] Dr. Corby Heller MD Work Phone: [facility] 01-01-2025 14:48-0400 Heart rate 83 /min Dr. Corby Heller MD Work Phone: [facility] 01-01-2025 14:48-0400 Respiratory rate 22 /min Dr. Corby Heller MD Work Phone: [facility] 01-01-2025 14:48-0400 SaO2% (BldA) [Mass fraction] 99 % Dr. Corby Heller MD Work Phone: 5(380)455-696566 [place] [address] 01-01-2025 14:48-0400 Systolic blood pressure 133 mm[Hg] Dr. Corby Heller MD Work Phone: 7(611)693-634266 [place] [address] 12-28-2024 15:07-0400 Body height 157.[address] Corby Heller MD Work Phone: 0(587)691-483466 [place] [address] 12-28-2024 15:07-0400 Body temperature 97.3 [degF] Dr. Corby Heller MD Work Phone: 4(510)304-945866 [place] [address] 12-28-2024 15:07-0400 Diastolic blood pressure 74 mm[Hg] Dr. Corby Heller MD Work Phone: 8(218)505-805766 [place] [address] 12-28-2024 15:07-0400 Heart rate 81 /min Dr. Corby Heller MD Work Phone: 8(234)161-116866 [place] [address] 12-28-2024 15:07-0400 Respiratory rate 18 /min Dr. Corby Heller MD Work Phone: 2(765)161-866566 [place] [address] 12-28-2024 15:07-0400 SaO2% (BldA) [Mass fraction] 95 % Dr. Corby Heller MD Work Phone: 0(044)762-793266 [place] [address] 12-28-2024 15:07-0400 Systolic blood pressure 136 mm[Hg] Dr. Corby Heller MD Work Phone: [facility] 12-27-2024 10:25-0400 Body height 157.[address] Corby Heller MD Work Phone: [facility] 12-27-2024 10:25-0400 Body mass index (BMI) [Ratio] 47.2 kg/m2 Dr. Corby Heller MD Work Phone: [facility] 12-27-2024 10:25-0400 Body temperature 96.8 [degF] Dr. Corby Heller MD Work Phone: [facility] 12-27-2024 10:25-0400 Body weight 117.[address] Corby Heller MD Work Phone: 4(111)764-571166 [place] [address] 12-27-2024 10:25-0400 Diastolic blood pressure 75 mm[Hg] Dr. Corby Heller MD Work Phone: 0(097)159-132966 [place] [address] 12-27-2024 10:25-0400 Heart rate 79 /min Dr. Corby Heller MD Work Phone: 3(933)514-641466 [place] [address] 12-27-2024 10:25-0400 Respiratory rate 16 /min Dr. Corby Heller MD Work Phone: 9(986)002-219766 [place] [address] 12-27-2024 10:25-0400 SaO2% (BldA) [Mass fraction] 98 % Dr. Corby Heller MD Work Phone: 8(547)673-234966 [place] [address] 12-27-2024 10:25-0400 Systolic blood pressure 144 mm[Hg] Dr. Corby Heller MD Work Phone: [facility] 12-26-2024 12:37-0400 Body height 157.[address] Corby Heller MD Work Phone: [facility] 12-26-2024 12:37-0400 Diastolic blood pressure 72 mm[Hg] Dr. Corby Heller MD Work Phone: [facility] 12-26-2024 12:37-0400 Heart rate 75 /min Dr. Corby Heller MD Work Phone: [facility] 12-26-2024 12:37-0400 Respiratory rate 18 /min Dr. Corby Heller MD Work Phone: [facility] 12-26-2024 12:37-0400 Systolic blood pressure 144 mm[Hg] Dr. Corby Heller MD Work Phone: [facility] 12-25-2024 11:55-0400 Body height 157.[address] Corby Heller MD Work Phone: 7(310)113-469366 [place] [address] 12-25-2024 11:55-0400 Body mass index (BMI) [Ratio] 47.2 kg/m2 Dr. Corby Heller MD Work Phone: 6(118)481-665266 [place] [address] 12-25-2024 11:55-0400 Body temperature 96.4 [degF] Dr. Corby Heller MD Work Phone: 9(607)333-667416 [place] [address] 12-25-2024 11:55-0400 Body weight 117.[address] Corby Heller MD Work Phone: 3(556)877-569266 [place] [address] 12-25-2024 11:55-0400 Diastolic blood pressure 71 mm[Hg] Dr. Corby Heller MD Work Phone: 9(987)205-563616 [place] [address] 12-25-2024 11:55-0400 Heart rate 77 /min Dr. Corby Heller MD Work Phone: 0(458)061-084666 [place] [address] 12-25-2024 11:55-0400 Respiratory rate 16 /min Dr. Corby Heller MD Work Phone: 9(562)023-638466 [place] [address] 12-25-2024 11:55-0400 SaO2% (BldA) [Mass fraction] 97 % Dr. Corby Heller MD Work Phone: [facility] 12-25-2024 11:55-0400 Systolic blood pressure 140 mm[Hg] Dr. Corby Heller MD Work Phone: 3(482)476-452866 [place] [address] 12-24-2024 15:18-0400 Body temperature 97.5 [degF] Dr. Corby Heller MD Work Phone: [facility] 12-24-2024 15:18-0400 Diastolic blood pressure 69 mm[Hg] Dr. Corby Heller MD Work Phone: [facility] 12-24-2024 15:18-0400 Heart rate 75 /min Dr. Corby Heller MD Work Phone: [facility] 12-24-2024 15:18-0400 Respiratory rate 18 /min Dr. Corby Heller MD Work Phone: [facility] 12-24-2024 15:18-0400 SaO2% (BldA) [Mass fraction] 99 % Dr. Corby Heller MD Work Phone: 6(452)099-787666 [place] [address] 12-24-2024 15:18-0400 Systolic blood pressure 140 mm[Hg] Dr. Corby Heller MD Work Phone: 3(570)269-777766 [place] [address] 12-23-2024 13:38-0400 Body temperature 98.2 [degF] Dr. Corby Heller MD Work Phone: 2(901)324-441416 [place] [address] 12-23-2024 13:38-0400 Diastolic blood pressure 87 mm[Hg] Dr. Corby Heller MD Work Phone: 2(014)118-568116 [place] [address] 12-23-2024 13:38-0400 Heart rate 77 /min Dr. Corby Heller MD Work Phone: 3(369)743-361966 [place] [address] 12-23-2024 13:38-0400 Respiratory rate 18 /min Dr. Corby Heller MD Work Phone: 6(740)933-691966 [place] [address] 12-23-2024 13:38-0400 SaO2% (BldA) [Mass fraction] 98 % Dr. Corby Heller MD Work Phone: 4(872)997-641466 [place] [address] 12-23-2024 13:38-0400 Systolic blood pressure 124 mm[Hg] Dr. Corby Heller MD Work Phone: [facility] 12-23-2024 12:15-0400 Body height 157.[address] Corby Heller MD Work Phone: 4(494)946-830166 [place] [address] 12-23-2024 12:15-0400 Body mass index (BMI) [Ratio] 47.3 kg/m2 Dr. Corby Heller MD Work Phone: 7(856)434-919766 [place] [address] 12-23-2024 12:15-0400 Body weight 117.[address] Corby Heller MD Work Phone: [facility] 12-22-2024 12:34-0400 Body height 157.[address] Corby Heller MD Work Phone: [facility] 12-22-2024 12:34-0400 Body mass index (BMI) [Ratio] 47.3 kg/m2 Dr. Corby Heller MD Work Phone: 0(606)257-369767 [place] [address] 12-22-2024 12:34-0400 Body temperature 96.8 [degF] Dr. Corby Heller MD Work Phone: 2(655)749-153766 [place] [address] 12-22-2024 12:34-0400 Body weight 117.[address] Corby Heller MD Work Phone: 7(597)282-496666 [place] [address] 12-22-2024 12:34-0400 Diastolic blood pressure 69 mm[Hg] Dr. Corby Heller MD Work Phone: 2(149)913-472966 [place] [address] 12-22-2024 12:34-0400 Heart rate 70 /min Dr. Corby Heller MD Work Phone: 1(681)306-505166 [place] [address] 12-22-2024 12:34-0400 Respiratory rate 16 /min Dr. Corby Heller MD Work Phone: [facility] 12-22-2024 12:34-0400 SaO2% (BldA) [Mass fraction] 97 % Dr. Corby Heller MD Work Phone: [facility] 12-22-2024 12:34-0400 Systolic blood pressure 140 mm[Hg] Dr. Corby Heller MD Work Phone: [facility] 01-27-2024 14:11-0400 Body temperature 97.8 [degF] [facility] 01-27-2024 14:11-0400 Diastolic blood pressure 83 mm[Hg] [facility] 01-27-2024 14:11-0400 Heart rate 75 /min [facility] 01-27-2024 14:11-0400 Respiratory rate 16 /min [facility] 01-27-2024 14:11-0400 SaO2% (BldA) [Mass fraction] 94 % [facility] 01-27-2024 14:11-0400 Systolic blood pressure 156 mm[Hg] [facility] 01-27-2024 14:00-0400 Inhaled oxygen flow rate 2 L/min [facility] 01-27-2024 09:52-0400 Body height 157.48 cm [facility] 01-27-2024 09:52-0400 Body mass index (BMI) [Ratio] 45.6 kg/m2 [facility] 01-27-2024 09:52-0400 Body weight 113 kg [facility] 11-25-2023 14:37-0500 Body temperature 97.2 [degF] [facility] 11-25-2023 14:37-0500 Diastolic blood pressure 45 mm[Hg] [facility] 11-25-2023 14:37-0500 Heart rate 76 /min [facility] [place] 11-25-2023 14:37-0500 Respiratory rate 16 /min [facility] 11-25-2023 14:37-0500 SaO2% (BldA) [Mass fraction] 94 % [facility] 11-25-2023 14:37-0500 Systolic blood pressure 111 mm[Hg] [facility] 11-25-2023 11:06-0500 Body height 157.48 cm [facility] [place] 11-25-2023 11:06-0500 Body mass index (BMI) [Ratio] 45.8 kg/m2 [facility] 11-25-2023 11:06-0500 Body weight 113.57 kg [facility] [place] 11-11-2023 14:55-0500 Diastolic blood pressure 51 mm[Hg] [facility] 11-11-2023 14:55-0500 Heart rate 78 /min [facility] [place] 11-11-2023 14:55-0500 Respiratory rate 18 /min [facility] 11-11-2023 14:55-0500 SaO2% (BldA) [Mass fraction] 97 % [facility] 11-11-2023 14:55-0500 Systolic blood pressure 129 mm[Hg] [facility] 11-11-2023 13:40-0500 Body temperature 97.5 [degF] [facility] 11-11-2023 13:35-0500 Inhaled oxygen flow rate 3 L/min [facility] 11-11-2023 11:47-0500 Body height 157.48 cm [facility] [place] 11-11-2023 11:47-0500 Body mass index (BMI) [Ratio] 46.5 kg/m2 [facility] 11-11-2023 11:47-0500 Body weight 115.3 kg [facility] [place] 08-05-2023 10:45-0500 Body temperature 97 [degF] Dr. Corby Heller Work Phone: 7(996)187-075066 [place] [address] 08-05-2023 10:45-0500 Diastolic blood pressure 94 mm[Hg] Dr. Corby Heller Work Phone: 6(838)768-601166 [place] [address] 08-05-2023 10:45-0500 Heart rate 89 /min Dr. Corby Heller Work Phone: 6(484)088-440066 [place] [address] 08-05-2023 10:45-0500 Respiratory rate 16 /min Dr. Corby Heller Work Phone: 8(173)073-961866 [place] [address] 08-05-2023 10:45-0500 SaO2% (BldA) [Mass fraction] 97 % Dr. Corby Heller Work Phone: 6(771)971-784466 [place] [address] 08-05-2023 10:45-0500 Systolic blood pressure 111 mm[Hg] Dr. Corby Heller Work Phone: [facility] 08-05-2023 10:30-0500 Inhaled oxygen flow rate 1 L/min Dr. Corby Heller Work Phone: [facility] 08-05-2023 07:56-0500 Body height 157.[address] Corby Heller Work Phone: 9(611)511-473066 [place] [address] 08-05-2023 07:56-0500 Body mass index (BMI) [Ratio] 47.6 kg/m2 Dr. Corby Heller Work Phone: 1(229)657-022266 [place] [address] 08-05-2023 07:56-0500 Body weight 118.[address] Corby Heller Work Phone: [facility] 07-15-2023 11:03-0400 Body temperature 97.9 [degF] Dr. Corby Heller Work Phone: [facility] 07-15-2023 11:03-0400 Diastolic blood pressure 78 mm[Hg] Dr. Corby Heller Work Phone: 9(374)702-820466 [place] [address] 07-15-2023 11:03-0400 Heart rate 83 /min Dr. Corby Heller Work Phone: 7(597)905-542566 [place] [address] 07-15-2023 11:03-0400 Respiratory rate 18 /min Dr. Corby Heller Work Phone: 1(372)397-584216 [place] [address] 07-15-2023 11:03-0400 SaO2% (BldA) [Mass fraction] 93 % Dr. Corby Heller Work Phone: 4(524)190-691516 [place] [address] 07-15-2023 11:03-0400 Systolic blood pressure 117 mm[Hg] Dr. Corby Heller Work Phone: 7(637)081-460566 [place] [address] 07-13-2023 12:57-0400 Body mass index (BMI) [Ratio] 47.4 kg/m2 Dr. Corby Heller Work Phone: 7(824)901-868816 [place] [address] 07-13-2023 12:57-0400 Body weight 117.[address] Corby Heller Work Phone: 1(001)092-529416 [place] [address] 07-07-2023 07:39-0400 Body height 157.[address] Corby Heller Work Phone: [facility] 06-30-2023 10:58-0400 Body temperature 97.6 [degF] Dr. Corby Heller Work Phone: 0(482)498-697466 [place] [address] 06-30-2023 10:58-0400 Diastolic blood pressure 72 mm[Hg] Dr. Corby Heller Work Phone: 5(927)036-098166 [place] [address] 06-30-2023 10:58-0400 Heart rate 79 /min Dr. Corby Heller Work Phone: 3(828)297-749366 [place] [address] 06-30-2023 10:58-0400 Respiratory rate 18 /min Dr. Corby Heller Work Phone: [facility] 06-30-2023 10:58-0400 SaO2% (BldA) [Mass fraction] 93 % Dr. Corby Heller Work Phone: [facility] 06-30-2023 10:58-0400 Systolic blood pressure 123 mm[Hg] Dr. Corby Heller Work Phone: [facility] 06-30-2023 09:10-0400 Inhaled oxygen flow rate 3 L/min Dr. Corby Heller Work Phone: [facility] 06-29-2023 06:00-0400 Body mass index (BMI) [Ratio] 57.6 kg/m2 Dr. Corby Heller Work Phone: [facility] 06-29-2023 06:00-0400 Body weight [address] Corby Heller Work Phone: [facility] 06-26-2023 03:00-0400 Inhaled oxygen concentration 35 % Dr. Corby Heller Work Phone: [facility] 08-04-2022 11:18-0500 Diastolic blood pressure 57 mm[Hg] Grisel Villanueva DO Work Phone: [facility] 08-04-2022 11:18-0500 Heart rate 109 /min Grisel Villanueva DO Work Phone: [facility] 08-04-2022 11:18-0500 SaO2% (BldA) [Mass fraction] 96 % Grisel Villanueva DO Work Phone: [facility] 08-04-2022 11:18-0500 Systolic blood pressure 131 mm[Hg] Grisel Villanueva DO Work Phone: [facility] 07-12-2022 16:20-0400 Diastolic blood pressure 84 mm[Hg] [facility] Work Phone: 07-12-2022 16:20-0400 Heart rate 102 /min [facility] [place] Work Phone: 07-12-2022 16:20-0400 Respiratory rate 22 /min [facility] Work Phone: 07-12-2022 16:20-0400 SaO2% (BldA) [Mass fraction] 95 % [facility] Work Phone: 07-12-2022 16:20-0400 Systolic blood pressure 137 mm[Hg] [facility] Work Phone: 07-12-2022 14:24-0400 Body height 157.48 cm [facility] [place] Work Phone: 07-12-2022 14:24-0400 Body mass index (BMI) [Ratio] 48.3 kg/m2 [facility] Work Phone: 07-12-2022 14:24-0400 Body temperature 98.4 [degF] [facility] Work Phone: 07-12-2022 14:24-0400 Body weight 119.8 kg [facility] Work Phone: Encounters Encounter Date Encounter Type Care Provider Facility Start: 05-15-2025 Non-patient / Non-visit Dr. Flaco najera MD -[facility] Work Phone: Start: 05-14-2025 Non-patient / Non-visit Dr. Hari Miranda MD -[facility] Work Phone: Start: 05-13-2025 Non-patient / Non-visit Dr. Hari Miranda MD -[facility] Work Phone: Start: 05-12-2025 Non-patient / Non-visit Dr. Hari Miranda MD -[facility] Work Phone: Start: 05-11-2025 ambulatory Corby [facility] Facility:[facility] Start: 05-11-2025 Non-patient / Non-visit Dr. Darren guerra MD -[facility] Start: 05-11-2025 Non-patient / Non-visit Dr. Hari Miranda MD -[facility] Work Phone: Start: 05-10-2025 ambulatory Luis Tsang y:[facility] Start: 05-10-2025 End: 05-15-2025 Evaluation and management of inpatient Dr. Holly Lopez MD -Progressive Care Unit Work Phone: Start: 05-03-2025 End: 05-03-[address] Corby Heller MD Work Phone: -Laboratory Phy Office 3rd Flr Start: 05-03-2025 End: 05-03-[address] Corby Heller MD -Laboratory Phy Office 3rd Flr Start: 05-03-2025 End: 05-03-2025 ambulatory [facility] Facility:[facility] Start: 03-27-2025 Non-patient / Non-visit Dr. Marie jones MD -[facility] Work Phone: Start: 02-15-2025 End: 02-15-[address] Corby Heller MD Work Phone: [facility] Work Phone: Start: 02-15-2025 End: 02-15-[address] Corby Heller MD -Outpatient Bone Densitometry Work Phone: Start: 02-15-2025 End: 02-15-20[facility] Start: 01-30-2025 End: 01-30-[address] Corby Heller MD Work Phone: [facility] Work Phone: Start: 01-30-2025 End: 01-30-[address] Bella Prieto DO -Laboratory Work Phone: Start: 01-30-2025 End: 01-30-2025 ambulatory Bella Prieto Facility:[facility] Start: 01-26-2025 End: 01-26-[address] Rob Weinberg MD -[facility] Work Phone: Start: 01-26-2025 End: 01-26-2025 [facility] Start: 01-18-2025 End: 01-18-[address] Rob Weinberg MD -Laboratory, Specimen Work Phone: Start: 01-18-2025 End: 01-18-2025 ambulatory [facility] Facility:[facility] Start: 01-18-2025 End: 01-18-[address] Rob Weinberg MD -[facility] Work Phone: Start: 01-18-2025 End: 01-18-2025 ambulatory [facility] Facility:[facility] Start: 01-01-2025 End: 01-01-2025 Emergency department patient visit Dr. Evans Blankenship DO -Emergency Department Work Phone: Start: 01-01-2025 ambulatory [facility] Facility:[facility] Start: 12-28-2024 End: 12-28-[address] Rob Krishnamurthy MD -Medical Out Work Phone: Start: 12-28-2024 End: 12-28-[address] Corby Heller MD Work Phone: [facility] Work Phone: Start: 12-27-2024 End: 12-27-[address] Rob Krishnamurthy MD -Medical Out Work Phone: Start: 12-27-2024 End: 12-27-[address] Corby Heller MD Work Phone: [facility] Work Phone: Start: 12-26-2024 End: 12-26-[address] Rob Krishnamurthy MD -Medical Out Work Phone: Start: 12-26-2024 End: 12-26-[address] Corby Heller MD Work Phone: [facility] Work Phone: Start: 12-25-2024 End: 12-25-[address] Rob Krishnamurthy MD -Medical Out Work Phone: Start: 12-25-2024 End: 12-25-[address] Corby Heller MD Work Phone: [facility] Work Phone: Start: 12-24-2024 End: 12-24-[address] Rob Krishnamurthy MD -Medical Out Work Phone: Start: 12-24-2024 End: 12-24-[address] Corby Heller MD Work Phone: [facility] Work Phone: Start: 12-23-2024 End: 12-23-2024 Emergency department patient visit Dr. Corby Heller MD Work Phone: -Emergency Department Work Phone: Start: 12-23-2024 [facility] Start: 12-22-2024 End: 12-22-[address] Rob Krishnamurthy MD -Medical Out Work Phone: Start: 12-22-2024 End: 12-22-[address] Corby Heller MD Work Phone: [facility] Work Phone: Start: 12-18-2024 End: 12-18-[address] Corby Heller MD Work Phone: [facility] Work Phone: Start: 12-18-2024 End: 12-18-[address] Corby Heller MD -Radiology, [facility] Work Phone: Start: 12-18-2024 End: 12-18-2024 ambulatory Corby Heller Facility:[facility] Start: 11-23-2024 End: 11-23-[address] Corby Heller MD Work Phone: [facility] Work Phone: Start: 11-23-2024 End: 11-23-[address] Corby Heller MD -Laboratory, Phy Office 3rd Flr Start: 11-23-2024 End: 11-23-2024 ambulatory Corby Chi Arron Facility:[facility] Start: 09-11-2024 End: 09-11-[address] Marie Caldera MD -Radiology, [place] Work Phone: Start: 09-11-2024 End: 09-11-2024 ambulatory Marie Caldera Facility:[facility] Start: 08-25-2024 End: 08-25-[address] Marie Caldera MD -Cat Scan, [facility] Work Phone: Start: 08-25-2024 End: 08-25-2024 ambulatory Marie Caldera Facility:[facility] Start: 08-18-2024 End: 08-18-2024 Patient encounter procedure Shana SINGH -[facility] Work Phone: Start: 08-18-2024 End: 08-18-2024 ambulatory Corby Chi [facility] Facility:[facility] Start: 08-11-2024 End: 08-11-2024 Patient encounter procedure Shana SINGH -[facility] Work Phone: Start: 08-11-2024 End: 08-11-2024 ambulatory Shana Hancock Facility:[facility] Start: 08-04-2024 End: 08-04-2024 ambulatory Corby Chi [facility] Facility:[facility] Start: 07-12-2024 End: 07-12-2024 ambulatory Corby Chi [facility] Facility:[facility] Start: 06-28-2024 End: 06-28-2024 ambulatory Corby Chi Arron Facility:[facility] Start: 06-22-2024 End: 06-22-2024 ambulatory [facility] Facility:[facility] Start: 06-19-2024 End: 06-19-2024 ambulatory Corby Chi Ar[facility] Facility:[facility] Start: 06-08-2024 ambulatory Corby [facility] Start: 06-01-2024 End: 06-01-[facility] Start: 05-24-2024 End: 05-24-2024 ambulatory [facility] Facility:[facility] Start: 01-27-2024 End: 01-27-2024 Admission to same day surgery center [facility]-Surgical Day Care Start: 01-27-2024 End: 01-27-2024 ambulatory [facility] Work Phone: Start: 01-24-2024 End: 01-24-2024 ambulatory [facility] Work Phone: Start: 01-24-2024 End: 01-24-2024 Patient encounter procedure [facility]-Laboratory, [place] Work Phone: Start: 01-17-2024 End: 01-17-2024 ambulatory [facility] Work Phone: Start: 01-17-2024 End: 01-17-2024 Patient encounter procedure [facility]-Radiology, [place] Work Phone: Start: 12-16-2023 End: 12-16-2023 ambulatory [facility] Work Phone: Start: 12-16-2023 End: 12-16-2023 Patient encounter procedure [facility]-Cat Scan, [facility] Work Phone: Start: 11-25-2023 End: 11-25-2023 Admission to same day surgery center [facility]-Surgical Day Care Start: 11-25-2023 End: 11-25-2023 ambulatory [facility] Work Phone: Start: 11-11-2023 End: 11-11-2023 Admission to same day surgery center [facility]-Surgical Day Care Start: 11-11-2023 End: 11-11-2023 ambulatory [facility] Work Phone: Start: 10-29-2023 End: 10-29-2023 ambulatory [facility] Work Phone: Start: 10-29-2023 End: 10-29-2023 Patient encounter procedure [facility]-Pre-Admission Testing Work Phone: Start: 10-27-2023 End: 10-27-2023 [facility] Start: 08-05-2023 End: 08-05-2023 Admission to same day surgery center Dr. Corby Heller Work Phone: [facility]-Surgical Day Care Start: 08-05-2023 End: 08-05-[address] Corby Heller Work Phone: [facility] Work Phone: Start: 07-27-2023 End: 07-27-[address] Corby Heller Work Phone: [facility] Work Phone: Start: 07-27-2023 End: 07-27-[address] [facility] Work [facility]: Start: 07-21-2023 End: 07-21-[address] Corby Heller Work Phone: [facility] Work Phone: Start: 07-21-2023 End: 07-21-[address] Corby Heller Work Phone: [facility]-Laboratory, Phy Office 3rd Flr Start: 06-30-2023 End: 07-15-2023 Evaluation and management of inpatient Dr. Corby Heller Work Phone: [facility]-Transitional Care Unit Start: 06-30-2023 Non-patient / Non-visit Dr. Ryder Heller Work Phone: [facility] Work Phone: Start: 06-29-2023 Non-patient / Non-visit Dr. Ryder Heller Work Phone: [facility] Work Phone: Start: 06-28-2023 Non-patient / Non-visit Dr. Ryder Heller Work Phone: [facility] Work Phone: Start: 06-27-2023 Non-patient / Non-visit Dr. Ryder Heller Work Phone: [facility] Work Phone: Start: 06-27-2023 Non-patient / Non-visit Dr. Ryder Heller Work Phone: [facility] Start: 06-26-2023 Non-patient / Non-visit Dr. Ryder Heller Work Phone: [facility] Start: 06-26-2023 Non-patient / Non-visit Dr. Ryder Heller Work Phone: [facility] Start: 06-26-2023 Non-patient / Non-visit Dr. Ryder Heller Work Phone: [facility] Work Phone: Start: 06-25-2023 Non-patient / Non-visit Dr. Ryder Heller Work Phone: [facility] Work Phone: Start: 06-25-2023 End: 06-30-2023 Evaluation and management of inpatient Dr. Corby Heller Work Phone: [facility]-Progressive Care Unit Work Phone: Start: 05-04-2023 End: 05-04-2023 ambulatory [facility] Work Phone: Start: 05-04-2023 End: 05-04-2023 Patient encounter procedure [facility]-Laboratory, Phy Office 3rd Flr Start: 04-21-2023 End: 04-21-2023 ambulatory [facility] Work Phone: Start: 04-21-2023 End: 04-21-2023 Patient encounter procedure [facility]-Laboratory, Phy Office 3rd Flr Start: 03-18-2023 End: 03-18-2023 ambulatory [facility] Work Phone: Start: 03-18-2023 End: 03-18-2023 Patient encounter procedure [facility], [facility] Start: 01-21-2023 End: 01-21-2023 ambulatory [facility] Work Phone: Start: 01-21-2023 End: 01-21-2023 Patient encounter procedure [facility]-Laboratory, Phy Office 3rd Flr Start: 12-17-2022 End: 12-17-2022 ambulatory [facility] Work Phone: Start: 12-17-2022 End: 12-17-2022 Patient encounter procedure [facility]-Laboratory, Phy Office 3rd Flr Start: 08-06-2022 Non-patient / Non-visit Dr. Ryder Heller Work Phone: [facility] Start: 08-06-2022 End: 08-06-[address] Corby Heller Work Phone: [facility] Work Phone: Start: 08-06-2022 End: 08-06-[address] Corby Heller Work Phone: [facility]-Cardiovascular Services Start: 08-04-2022 End: 08-04-2022 ambulatory CORBY HELLER Facility:[facility] Start: 08-04-2022 End: 08-04-2022 Patient encounter procedure Grisel Villanueva DO Work Phone: Vascular Surgery Comment on above: Venous (peripheral) insufficiency (Primary Dx) Start: 07-27-2022 End: 07-27-2022 ambulatory [facility] Work Phone: Start: 07-27-2022 End: 07-27-2022 Patient encounter procedure [facility]-Radiology, [facility] Start: 07-12-2022 End: 07-12-2022 Emergency department patient visit [facility]-Emergency Department Start: 04-07-2022 End: 04-07-2022 Patient encounter procedure [facility]-Laboratory, Phy Office 3rd Flr Start: 03-11-2022 End: 03-11-2022 Patient encounter procedure [facility]-Radiology, [facility] Start: 02-26-2022 End: 02-26-2022 Patient encounter procedure [facility]-Outpatient Breast Imaging Start: 02-17-2022 End: 02-17-2022 Patient encounter procedure [facility]-Radiology, [place] Start: 01-27-2022 End: 01-27-2022 Patient encounter procedure [facility]-Laboratory, Specimen Start: 01-20-2022 End: 01-20-2022 Patient encounter procedure [facility]-Laboratory, Phy Office 3rd Flr Start: 10-21-2021 End: 10-21-2021 Patient encounter procedure [facility]-Laboratory, Phy Office 3rd Flr Procedures Date Procedure Procedure Detail Performing Clinician Start: 05-14-[address] Corby Heller MD Work Phone: Start: 05-11-2025 MRI of lower limb wi th contrast Dr. Corby Heller MD Work Phone: Start: 05-11-2025 Gram stain microscopy D eliza Heller MD Work Phone: Start: 05-11-[address] Corby Heller MD Work Phone: Start: 05-10-2025 X-ray of foot, three or more views Dr. Corby Heller MD Work Phone: Start: 05-10-[address] Corby Heller MD Work Phone: Start: 05-03-2025 Urine microalbumin/creatinine ratio measurement Dr. Corby Heller MD Work Phone: Start: 05-03-2025 Vitamin D, 25-hydrox y measurement Dr. Corby Heller MD Work Phone: Comment on above: Vitamin D StatusDefi ciency: <20 ng/mL (50nmol/L)Insufficiency: 20-30 ng/mL (50-75 nmol/L)Sufficiency: 30-100 ng/mL (75-250 nmol/L)Toxicity: >100 ng/mL (>250 nmol/L) Start: 02-15-2025 Dual energy X-ray absorptiometry Dr. Corby Heller MD Work Phone: Start: 02-15-2025 Screening mammography Tip Heller MD Work Phone: Start: 01-30-2025 Urine microalbumin/creatinine ratio measurement Dr. Corby Heller MD Work Phone: Comment on above: Previous reported re sult: 1424.5 mg/g CREEdited by: MARK on 03/16/25:0832 AMENDED REPORT 03/16/25 0832 MALB:CREAT previously reported as: 1424.5 mg/g CRE Start: 01-30-2025 Serum inorganic phos phate measurement [...] Phone: Start: 06-25-2023 Bacteria Detection (PCR) Dr. Corby Heller Work Phone: Start: 06-25-2023 Bacteria identified [...] Work Phone: Start: 07-19-2005 Colonoscopy Grisel sesay Zafu Work Phone: SARS-CoV-2 & FLU Ant igen (Rapid) Plan of Treatment Date Care Activity Detail Author Start: 05-15-2025 Patient discharge [facility] Start: 05-12-2025 [facility] Start: 05-11-2025 MRI of lower limb with contrast Lower Ext No Joint W/WO Cont [facility] Start: 05-11-2025 [facility] [place] Start: 05-11-2025 Referral to service [facility] Start: 05-11-2025 Anaerobic Culture Anaerobic Culture [facility] Start: 05-11-2025 Anaerobic microbial culture Anaerobic Culture [facility] Start: 05-11-2025 Microbial culture, routine Wound Culture [facility] Start: 05-11-2025 Wound Culture Wound Culture [facility] Start: 05-11-2025 Wound care [facility] Start: 05-11-2025 Ankle brachial pressure index [facility] Start: 05-11-2025 End: 05-11-2025 [facility] Start: 05-11-2025 Bacterial nucleic acid assay [facility] Start: 05-11-2025 Consultation [facility] Start: 05-11-2025 Source specific culture [facility] Start: 05-10-2025 Following clinical pathway protocol [facility] Start: 05-10-2025 Assessment of risk of venous thromboembolism [facility] Start: 05-10-2025 Care regimes management [facility] Start: 05-10-2025 Consultation for treatment [facility] Start: 05-10-2025 Incentive spirometry [facility] Start: 05-10-2025 Inhalation therapy procedure [facility] Start: 05-10-2025 Insertion of catheter into peripheral vein [facility] Start: 05-10-2025 Measuring intake and output [facility] Start: 05-10-2025 Notification of physician [facility] Start: 05-10-2025 Providing care according to standard [facility] Start: 05-10-2025 Provision of activity privileges [facility] Start: 05-10-2025 Referral to occupational therapist [facility] Start: 05-10-2025 Referral to canvas cutter hand [facility] Start: 05-10-2025 Referral to service [facility] Start: 05-10-2025 End: 05-10-2025 [facility] Start: 05-10-2025 Admission procedure [facility] Start: 05-10-2025 Verification routine [facility] Start: 05-10-2025 Hospital admission, emergency, from emergency room, medical nature [facility] Start: 05-10-2025 [facility] Start: 01-01-2025 [facility] Start: 12-24-2024 Therapeutic prophylactic/dx injection subq/im THER/PROPH/DIAG INJ SC/IM [facility] Start: 12-23-2024 End: 12-23-2024 [facility] Start: 01-27-2024 Patient discharge [facility] Start: 11-25-2023 Anes lithotrp xtrcorp shock wave w/o water bath ANESTH KIDNEY STONE DESTRUCT [facility] Start: 11-25-2023 Lithotripsy xtrcorp shock wave FRAGMENTING OF KIDNEY STONE [facility] Start: 11-25-2023 Patient discharge [facility] Start: 11-11-2023 Patient discharge [facility] Start: 11-11-2023 Anes trurl fragmntj manj&/rmvl ureteral calculus ANESTH STONE REMOVAL [facility] Start: 11-11-2023 Cysto/uretero w/lithotripsy &indwell stent insrt CYSTO/URETERO W/LITHOTRIPSY [facility] Start: 08-05-2023 Anes lithotrp xtrcorp shock wave w/o water bath ANESTH KIDNEY STONE DESTRUCT [facility] Start: 08-05-2023 Lithotripsy xtrcorp shock wave FRAGMENTING OF KIDNEY STONE [facility] Start: 08-05-2023 Patient discharge [facility] Start: 07-16-2023 Development of care plan [facility] Start: 07-15-2023 Patient discharge [facility] Start: 07-14-2023 Referral to service [facility] Start: 07-13-2023 [facility] Start: 07-13-2023 [facility] Start: 07-13-2023 [facility] Start: 07-06-2023 Removal of urinary catheter [facility] Start: 07-04-2023 Referral to canvas cutter hand [facility] Start: 07-01-2023 Developing a treatment plan [facility] Start: 07-01-2023 Development of care plan [facility] Start: 06-30-2023 Following clinical pathway protocol [facility] Start: 06-30-2023 Admission procedure [facility] Start: 06-30-2023 Measuring intake and output [facility] Start: 06-30-2023 Patient referral to dietitian [facility] Start: 06-30-2023 Referral to occupational therapist [facility] Start: 06-30-2023 Referral to service [facility] Start: 06-30-2023 Vital signs measurements [facility] Start: 06-30-2023 [facility] Start: 06-30-2023 Patient discharge [facility] Start: 06-28-2023 [facility] Start: 06-26-2023 End: 06-27-2023 [facility] Start: 06-26-2023 Following clinical pathway protocol [facility] Start: 06-26-2023 Referral to occupational therapist [facility] Start: 06-26-2023 Referral to service [facility] Start: 06-26-2023 Consultation [facility] Start: 06-26-2023 Enteric precautions [facility] Start: 06-25-2023 Continuous pulse oximetry [facility] Start: 06-25-2023 Dual pressure spontaneous ventilation support [facility] Start: 06-25-2023 Admission procedure [facility] Start: 06-25-2023 Following clinical pathway protocol [facility] Start: 06-25-2023 Assessment of risk of venous thromboembolism [facility] Start: 06-25-2023 Inhalation therapy procedure [facility] Start: 06-25-2023 Insertion of catheter into peripheral vein [facility] Start: 06-25-2023 Oxygen therapy [facility] Start: 06-25-2023 Providing care according to standard [facility] Start: 06-25-2023 Provision of activity privileges [facility] Start: 06-25-2023 Referral to service [facility] Start: 06-25-2023 [facility] Start: 06-25-2023 Physiotherapy of chest [facility] Start: 06-25-2023 Admission procedure [facility] Start: 06-25-2023 Consultation [facility] Start: 07-12-2022 Electrocardiographic procedure [facility] Work Phone: Start: 05-28-2022 Influenza vaccination INFLUENZA (#1) [facility] Start: 03-17-2022 COVID-19 VACCINE (4 - Booster for Luther series) COVID-19 VACCINE (4 - Booster for Luther series) [facility] Start: 09-27-2021 ADVANCE DIRECTIVE DISCUSSION ADVANCE DIRECTIVE DISCUSSION [facility] Start: 09-27-2021 DEPRESSION ASSESSMENT DEPRESSION ASSESSMENT [facility] Start: 07-12-2017 LIPID SCREEN LIPID SCREEN [facility] Start: 07-19-2015 Colonoscopy COLONOSCOPY [facility] Start: 07-19-2015 COLORECTAL CANCER SCREENING COLORECTAL CANCER SCREENING [facility] Start: 07-05-2015 DIABETES SCREEN DIABETES SCREEN [facility] Start: 2014 BONE DENSITY BONE DENSITY [facility] Start: 2014 PNEUMOCOCCAL: 65+ (1 - PCV) PNEUMOCOCCAL: 65+ (1 - PCV) [facility] Start: 07-19-2012 Mammography MAMMOGRAM [facility] Start: 1999 SHINGRIX VACCINE (1 of 2) SHINGRIX VACCINE (1 of 2) [facility] Start: 1994 COLOGUARD (FIT-DNA) COLOGUARD (FIT-DNA) [facility] Start: [address] COLONOGRAPHY [facility] Start: 1994 FECAL OCCULT BLOOD FECAL OCCULT BLOOD [facility] Start: 1994 SIGMOIDOSCOPY SIGMOIDOSCOPY [facility] Start: 02-14-1968 Urine microalbumin profile DTAP,TDAP,TD (1 - Tdap) [facility] Start: 1967 HEPATITIS C SCREENING HEPATITIS C SCREENING [facility] Bacteria identified in Unspecified specimen by Anaerobe culture [facility] Calculus analysis [facility] Measurement of weigh t of calculus [facility] Origin of Stone [facility] Patient Education [facility] Work Phone: Patient referral [facility] Work Phone: Specimen color determination [facility] Wound microscopy, cu lture and sensitivities [facility] Immunizations Immunization Date Immunization Notes Care Provider Javy durbin 07-14-2023 Covid (Spikevax) Dr. Corby mehta Work Phone: [facility] 06-27-2023 Influenza High-Dose Quadrivalent Dr. Corby Heller Work Phone: [facility] 01-20-2022 Covid (Moderna) Dr. Corby Heller Work Phone: [facility] 10-21-2021 Covid (Moderna) Dr. Corby Heller Work Phone: [facility] 04-08-2021 Covid (Jose Antonio & Jose Antonio) [facility] Payers Date Payer Category Payer Self-pay [id number] 2017 Private Health Insurance KEESHA GRIMALDO PPO [id number] 2017-Present [phone] [address] [place] [address] PPO [id number] 2016 Private Health Insurance [id number] 2003 Medicare [id number] 2003 Medicare MEDICARE MEDICAR E A AND B [id number] 2003-Present [phone] [address] [address] [place] [address] Medicare [id number] Unknown [id number] 2.16.840.1.301100.3.579. 2.462 Unknown [id number] 2.16.840.1.929379.3.579. 2.462 Unknown [id number] 2.16.840.1.811259.3.579. 2.462 Unknown [id number] 2.16.840.1.386030.3.579. 2.462 Unknown [id number] 2.16.840.1.206956.3.579. 2.462 Unknown [id number] 2.16.840.1.181196.3.579. 2.462 Unknown [id number] 2.16.840.1.377925.3.579. 2.462 Unknown [id number] 2.16.840.1.619341.3.579. 2.462 Unknown [id number] 2.16.840.1.546073.3.579. 2.462 Unknown [id number] 2.16.840.1.070511.3.579. 2.462 Unknown [id number] 2.16.840.1.266950.3.579. 2.462 Unknown [id number] 2.16.840.1.275720.3.579. 2.462 Unknown [id number] 2.16.840.1.185523.3.579. 2.462 Unknown [id number] 2.16.840.1.679007.3.579. 2.462 Unknown [id number] 2.16840.1.421276.3.579. 2.462 Unknown [id number] 2.16840.1.580719.3.579. 2.462 Unknown [id number] 2.840.1.452407.3.579. 2.462 Unknown [id number] 2.840.1.338118.3.579. 2.462 Unknown [id number] 2.840.1.840598.3.579. 2.462 Unknown [id number] 2.840.1.430879.3.579. 2.462 Unknown [id number] 2.840.1.255298.3.579. 2.462 Unknown [id number] 2.840.1.266320.3.579. 2.462 Unknown [id number] 2.840.1.968110.3.579. 2.462 Unknown [id number] 2.840.1.690753.3.579. 2.462 Unknown [id number] 2.840.1.127608.3.579. 2.462 Unknown [id number] 2.840.1.758894.3.579. 2.462 Unknown [id number] 2.840.1.243941.3.579. 2.462 Unknown [id number] 2.16.840.1.058548.3.579. 2.462 Unknown [id number] 2.840.1.781271.3.579. 2.462 Unknown [id number] 2.16.840.1.114961.3.579. 2.462 Unknown [id number] 2.16.840.1.431059.3.579. 2.462 Unknown [id number] 2.16.840.1.133910.3.579. 2.462 Unknown [id number] 2.16.840.1.837555.3.579. 2.462 Unknown [id number] 2.16.840.1.495751.3.579. 2.462 Unknown [id number] 2.16.840.1.697321.3.579. 2.462 Unknown [id number] 2.16.840.1.897939.3.579. 2.462 Unknown [id number] 2.16.840.1.308331.3.579. 2.462 Unknown [id number] 2.840.1.067997.3.579. 2.462 Social History Date Type Detail Facility Start: 06-30-2021 End: 01-21-2024 Tobacco smoking status [facility] Unknown if ever smoked [facility] Start: 1950 Sex Assigned At Female [facility] Start: 08-04-2022 End: 05-10-2025 Tobacco smoking status AZIS Never smoked tobacco [facility] Start: 08-04-2022 Tobacco use and exposure Smokeless tobacco non-user [facility] Start: 08-04-2022 Alcohol intake Current drinke r of alcohol (finding) [facility] Start: 06-09-2012 Alcohol Comment social only (1 2 drinks per year) [facility] Start: 1950 Sex Assigned At Not on file [facility] Start: 12-06-2024 End: 12-29-2024 Sex Female (finding) [facility] Medical Equipment Procedure Code Equipment Code Equipment Origin al Text Equipment Identifier Dates Lithotripsy, ESWL Polymeric uret eral stent ([id number] FDA Start: 11-11-2023 Cystoscopy, with retrograde pyelogram, ureteroscopy, laser procedure, and stent inser Polymeric ureteral stent ()[id number] FDA Start: 01-27-2024 Cystoscopic insertion of [...] /State Functional Status Date Assessment Result Facility 05-15-2025 Functional status Ambulates [facility] Work Phone: 05-11-2025 Functional status Bedrest [facility] Work Phone: 08-05-2023 Functional status Ambulates;Bedside Commo de [facility] Work Phone: 07-15-2023 Functional status Up ad gian [facility] Work Phone: 07-14-2023 Functional status Assistive Silvina josselin Standard Walker [facility] Work Phone: 07-13-2023 Functional status Tolerates Activity Fair [facility] Work Phone: 06-30-2023 Functional status Bedrest [facility] Work Phone: Mental Status Date Assessment Result Facility 05-15-2025 Cognitive function Voice/Name [facility] Work Phone: 05-11-2025 Cognitive function Voice/Name [facility] Work Phone: 12-28-2024 Cognitive function Awake;Alert;A ppropriate;Follow s Commands [facility] Work Phone: 12-27-2024 Cognitive function Voice/Name [facility] Work Phone: 12-26-2024 Cognitive function Awake;Alert;A ppropriate;Follow s Commands [facility] Work Phone: 12-25-2024 Cognitive function Voice/Name [facility] Work Phone: 12-23-2024 Cognitive function Level Of Cons ciousness Awake;Alert;Appropriate;Follow s Commands [facility] Work Phone: 12-22-2024 Cognitive function Voice/Name [facility] Work Phone: 01-27-2024 Cognitive function Level Of Cons ciousness Appropriate;Drowsy [facility] Work Phone: 01-27-2024 Cognitive function Voice/Name [facility] Work Phone: 11-25-2023 Cognitive function Voice/Name [facility] Work Phone: 11-25-2023 Cognitive function Patient Orien tation Person;Place;Time [facility] Work Phone: 11-11-2023 Cognitive function Voice/Name [facility] Work Phone: 08-05-2023 Cognitive function Voice/Name [facility] Work Phone: 08-05-2023 Cognitive function Patient Orien tation Person;Place;Time [facility] Work Phone: 07-15-2023 Cognitive function Voice/Name;Touch/Shaki ng [facility] Work Phone: 07-10-2023 Cognitive function Appropriate;Cooperativ e [facility] Work Phone: 06-30-2023 Cognitive function Voice/Name [facility] Work Phone: Clinical Notes 08-04-2022 to 05-15-2025 Note Date & Type Note Facility 05-15-2025 Discharge summary Note Date/Time May 15, 2025 10:52am [facility] Medical Records Department [address] [place] [address] Discharge Summary 05/15/25 1044 MR#: [id number] Acct: [id number] Name: EDUAR CABRERA Rep #:[id number] : 1950 75 From: Flaco Yang MD PCP: Dr. Corby Heller MD Status:ADM I N Location: [place] [address] Providers Date of Admission: 05/10/25 Date of Discharge: 05/15/25 Primary Care Physician: Dr. Corby Heller MD Consultations 05/10/25 20:40 Consult: Onc/Wound/social service assistant Routine Comment: Reason for Consult:: Diabetic foot infection Consult: Podiatry Routine Consulting Provider: Luis Bhardwaj Reason for Consult: Diabetic foot infection EMERGENT Consult: No MD Notified: Yes Date Notified: 05/10/25 Time Notified: 18:52 Method of Notification: ED Physician Initiated 05/11/25 09:38 Consult: Infectious Disease Routine Consulting Provider: Rob Krishnamurthy Reason for Consult: left 5th toe medial ulcer, tendon? EMERGENT Consult: No MD Notified: Yes Date Notified: 05/11/25 Time Notified: 09:39 Method of Notification: Text Reason For Visit: LEFT DIABETIC FOOT INFECTION BRIEF EPISODES OF Diagnosis Discharge Diagnosis (1) Type 2 diabetes mellitus with foot ulcer: Status: Acute Code(s): E11.621 - Type 2 diabetes mellitus with foot ulcer; L97.509 - Non-pressure chronic ulcer of other part of unspecified foot with unspecified severity (2) Cellulitis of left lower limb: Status: Acute Code(s): L03.116 - Cellulitis of left lower limb (3) Ulcer of left foot with muscle involvement without evidence of necrosis: Status: Acute Code(s): L97.525 - Non-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 without evidence of necrosis Medications at Discharge Home Medications fluticasone propionate 50 mcg/actuation nasal spray,suspension 2 spray NASAL DAILY allergies 12/07/16 citalopram 20 mg tablet 20 mg PO QHS DEPRESSION 04/26/21 levothyroxine 25 mcg tablet 25 mcg PO DAILY thyroid 04/29/21 lovastatin 40 mg tablet 40 mg PO QHS cholesterol 04/29/21 ropinirole 2 mg tablet 2 mg PO QHS RLS 06/25/23 glucosamine 375 oz-padvbyrzk-cti no1 500 mg-C 15 mg-gianni 0.5 mg tablet (Haoeaalbyyh-Uuogurdftau-QCD Complex) 3 tab PO DAILY joints 08/02/23 metformin 500 mg tablet 500 mg PO BID dm 08/02/23 cranberry fruit 400 mg capsule 400 mg PO DAILY health 11/03/23 vitamin B complex 1 tab PO DAILY health 11/23/23 budesonide 0.5 mg/2 mL suspension for nebulization 0.5 mg inhalation Q12H PRN PRN breathing 03/23/24 ipratropium bromide 42 mcg (0.06 %) nasal spray 2 spray intranasal DAILY sob 06/19/24 levalbuterol tartrate 45 mcg/actuation aerosol inhaler 1 puff inhalation Q4H PRNshortness of breath 06/19/24 polysaccharide iron complex 150 mg iron capsule (Ferrex) 150 mg PO QDAY anemia 06/19/24 ascorbate calcium (vitamin C) 500 mg tablet 500 mg PO DAILY health 12/22/24 coenzyme Q10 100 mg capsule (CoQ-10) 50 mg PO DAILY health 12/22/24 echinacea 500 mg capsule 1,000 mg PO DAILY health 12/22/24 melatonin 10 mg capsule 10 mg PO QHS sleep 12/22/24 finerenone 20 mg tablet (Kerendia) 20 mg PO DAILY kidneys 05/11/25 amoxicillin 875 mg-potassium clavulanate 125 mg tablet 1 tab PO BID 6 weeks #84 tabs 05/15/25 doxycycline monohydrate 100 mg capsule 100 mg PO BID 6 weeks #84 caps 05/15/25 Hospital Course Summary of Care Provided Minutes Spent on Discharge: 35 Hospital Course: Patient is a 75-year-old lady admitted with diabetic foot infection 1. Osteomyelitis involving the distal phalanx of the left fifth toe ? Patient was managed with broad-spectrum antibiotic therapy consult placed to podiatry. Patient was seen by Dr. Alicea patient offered surgical versus conservative management patient opted for conservative management to save the toe. Patient was also seen in consultation by Dr. Krishnamurthy with ID recommendeddischarge with Doxycycline and Augmentin with a stop date of 06/21/2025 2. Diabetes mellitus type 2 with complications including diabetic foot infections ? patient's oral hypoglycemics held. Placed on long acting insulin, Accu-Cheks a.c. and at bedtime and covered with sliding scale insulin 3. Class III obesity with BMI of 49.6 ? Complicating care weight loss advised 4. Obstructive sleep apnea ? Consistent use of PAP therapy encouraged 5. Depression with anxiety ? Patient is on citalopram did continue 6. Dyslipidemia ?Patient is on statin therapy, continued at home dose 7. Restless leg syndrome ? Patient is on ropinirole?continue home dose 8. Mild intermittent asthma ? Not in exacerbation did continue patient bronchodilator as well as inhaled corticosteroids 9. DVT prophylaxis ? Lovenox SC 40 mg every 12 hours ? Physical Exam Narrative GENERAL: cooperative HEENT: Atraumatic; normocephalic EYES; Anicteric, Normal Conjunctiva NECK; supple, normal thyroid, RESPIRATORY: Diminished to auscultation CARDIOVASCULAR: Regular S1 S2, GI: soft, normoactive bowel sounds, : No Renal angle tenderness; EXTREMITIES: No edema, no clubbing, MUSCULOSKELETAL: Left fifth toe in surgical address NEURO: Awake; no lateralizing signs. SKIN: No Rash PSYCH; Flat affect Weight / BMI Weight Weight: 115.3 kg Body Mass Index (BMI) 49.6 ABG / Lab / Microbiology Data 05/14/25 04:11 05/14/25 04:11 Laboratory: Laboratory Results - last 24 hr 05/14/25 11:26: POC Glucose 146 H 05/14/25 16:46: POC Glucose 175 H 05/14/25 21:49: POC Glucose 196 H 05/15/25 06:03: POC Glucose 198 H Microbiology: Microbiology 05/11/25 09:30 Wound - Left Foot Gram Stain - Final 05/11/25 09:30 Wound - Left Foot Wound Culture - Preliminary Corynebacterium diphtheriae Staphylococcus capitis Gram positive organism 05/11/25 09:30 Wound - Left Foot Anaerobic Culture - Preliminary Checking for anaerobes, further studies to follow. D/C Instructions Discharge Activity: Return to Normal Activity Call your doctor if you observe: Fever of 101 or Higher, Shortness of breath, Fainting spells and Chest pain DC O2, CPAP, BIPAP Needs Home O2 Discharge instructions: No Meaningful Use Info Meaningful Use Meaningful Use Diagnoses (Choose all that apply): None applicable Discharge Plan Admission Admit Date/Time: 05/10/25 18:45 Attending Provider: Flaco Yang Primary Care Provider: Corby Heller Chi Consulting Providers: Luis Bhardwaj; Holly Lopez; Rob Krishnamurthy; Hari Miranda Discharge Orders/Prescriptions Prescriptions: New doxycycline monohydrate 100 mg Capsule 100 mg PO BID 42 Days Qty: 84 0RF amoxicillin-pot clavulanate 875-125 mg tablet 1 tab PO BID 42 Days Qty: 84 0RF Continued polysaccharide iron complex [Ferrex 150] 150 mg iron capsule 150 mg PO QDAY ipratropium bromide 42 mcg (0.06 %) spray,non-aerosol 2 spray intranasal DAILY Patient Comments: [NO ORIGINAL SIG] levalbuterol tartrate 45 mcg/actuation HFA aerosol inhaler 1 puff inhalation Q4H PRN (Reason: shortness of breath) fluticasone propionate 1 SPRAY spray,suspension 2 spray [...] TAKE 1 TABLET BY MOUTH ONCE DAILY ropinirole 2 mg tablet 2 mg PO QHS metformin 500 mg tablet 500 mg PO BID Patient Comments: WITH EACH MEAL Pzhdfurijpv-Mbwwl-QCO Complex [id number] mg tablet 3 tab PO DAILY cranberry fruit 400 mg capsule 400 mg PO DAILY Rx Instructions: administer with a meal coenzyme Q10 [CoQ-10] 100 mg capsule 50 mg PO DAILY melatonin 10 mg capsule 10 mg PO QHS ascorbate calcium (vitamin C) 500 mg tablet 500 mg PO DAILY echinacea 500 mg capsule 1,000 mg PO DAILY Rx Instructions: administer with meals vitamin B complex Tablet 1 tab PO DAILY budesonide 0.5 mg/2 mL Suspension For Nebulization 0.5 mg inhalation Q12H PRN PRN (Reason: breathing) Kerendia 20 mg tablet 20 mg PO DAILY Referrals / Follow Up: Luis Bhardwaj DPM [Med Staff - Active Staff] - Within 1 Week Rob Krishnamurthy MD [Med Staff - Active Staff] - Within 2 Weeks Corby Heller Chi, MD [Primary Care Provider] - Within 2 Weeks Disposition Disposition (needs filled in before D/C Order can be placed): Home Health Service Charges/Coding Visit Charges Inpatient E&M: 72785 Disch Hosp >30min 05/15/25 1052 <Electronically signed by Flaco Yang MD> Cosigner Signature (if applicable): CC: Dr. Flaco Yang MD; Dr. Corby Heller MD~ Signed [facility] Work Phone: 1(200) 834-692108-19-2025 Discharge summary [facility] Medical Records Department [address] [place] [address] Discharge Summary 05/15/25 1044 MR#: [id number] Acct: [id number] Name: EDUAR CABRERA Rep #:[id number] : 1950 75 From: Flaco Yang MD PCP: Dr. Corby Heller MD Status:ADM I N Location: [place] [address] Providers Date of Admission: 05/10/25 Date of Discharge: 05/15/25 Primary Care Physician: Dr. Corby Heller MD Consultations 05/10/25 20:40 Consult: Onc/Wound/social service assistant Routine Comment: Reason for Consult:: Diabetic foot infection Consult: Podiatry Routine Consulting Provider: Luis Bhardwaj Reason for Consult: Diabetic foot infection EMERGENT Consult: No Notified: Yes Date Notified: 05/10/25 Time Notified: 18:52 Method of Notification: ED Physician Initiated 05/11/25 09:38 Consult: Infectious Disease Routine Consulting Provider: Rob Krishnamurthy Reason for Consult: left 5th toe medial ulcer, tendon? EMERGENT Consult: No Notified: Yes Date Notified: 05/11/25 Time Notified: 09:39 Method of Notification: Text Reason For Visit: LEFT DIABETIC FOOT INFECTION BRIEF EPISODES OF Diagnosis Discharge Diagnosis (1) Type 2 diabetes mellitus with foot ulcer: Status: Acute Code(s): E11.621 - Type 2 diabetes mellitus with foot ulcer; L97.509 - Non-pressure chronic ulcer of other part of unspecified foot with unspecified severity (2) Cellulitis of left lower limb: Status: Acute Code(s): L03.116 - Cellulitis of left lower limb (3) Ulcer of left foot with muscle involvement without evidence of necrosis: Status: Acute Code(s): L97.525 - Non-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 without evidence of necrosis Medications at Discharge Home Medications fluticasone propionate 50 mcg/actuation nasal spray,suspension 2 spray NASAL DAILY allergies 12/07/16 citalopram 20 mg tablet 20 mg PO QHS DEPRESSION 04/26/21 levothyroxine 25 mcg tablet 25 mcg PO DAILY thyroid 04/29/21 lovastatin 40 mg tablet 40 mg PO QHS cholesterol 04/29/21 ropinirole 2 mg tablet 2 mg PO QHS RLS 06/25/23 glucosamine 375 jy-vplivfzkh-ixg no1 500 mg-C 15 mg-gianni 0.5 mg tablet (Jehaplnuvul-Wevglzthvbt-OWKFfkantw) 3 tab PO DAILY joints 08/02/23 metformin 500 mg tablet 500 mg PO BID dm 08/02/23 cranberry fruit 400 mg capsule 400 mg PO DAILY health 11/03/23 vitamin B complex 1 tab PO DAILY health 11/23/23 budesonide 0.5 mg/2 mL suspension for nebulization 0.5 mg inhalation Q12H PRN PRN breathing 03/23/24 ipratropium bromide 42 mcg (0.06 %) nasal spray 2 spray intranasal DAILY sob 06/19/24 levalbuterol tartrate 45 mcg/actuation aerosol inhaler 1 puff inhalation Q4H PRNshortness of thxboe12/23/24 polysaccharide iron complex 150 mg iron capsule (Ferrex) 150 mg PO QDAY anemia 06/19/24 ascorbate calcium (vitamin C) 500 mg tablet 500 mg PO DAILY health 12/22/24 coenzyme Q10 100 mg capsule (CoQ-10) 50 mg PO DAILY health 12/22/24 echinacea 500 mg capsule 1,000 mg PO DAILY health 12/22/24 melatonin 10 mg capsule 10 mg PO QHS sleep 12/22/24 finerenone 20 mg tablet (Kerendia) 20 mg PO DAILY kidneys 05/11/25 amoxicillin 875 mg-potassium clavulanate 125 mg tablet 1 tab PO BID 6 weeks #84 tabs 05/15/25 doxycycline monohydrate 100 mg capsule 100 mg PO BID 6 weeks #84 caps 05/15/25 Hospital Course Summary of Care Provided Minutes Spent on Discharge: 35 Hospital Course: Patient is a 75-year-old lady admitted with diabetic foot infection 1. Osteomyelitis involving the distal phalanx of the left fifth toe ? Patient was managed with broad-spectrum antibiotic therapy consult placed to podiatry. Patient was seen by Dr. Alicea patient offered surgical versus conservative management patient opted for conservative management to save the toe. Patient was also seen in consultation by Dr. Krishnamurthy with ID paul mmendeddischarge with Doxycycline and Augmentin with a stop date of 06/21/2025 2. Diabetes mellitus type 2 with complications including diabetic foot infections ? patient's oral hypoglycemics held. Placed on long acting insulin, Accu-Cheks a.c. and at bedtime and covered with sliding scale insulin 3. Class III obesity with BMI of 49.6 ? Complicating care weight loss advised 4. Obstructive sleep apnea ? Consistent use of PAP therapy encouraged 5. Depression with anxiety ? Patient is on citalopram did continue 6. Dyslipidemia ?Patient is on statin therapy, continued at home dose 7. Restless leg syndrome ? Patient is on ropinirole?continue home dose 8. Mild intermittent asthma ? Not in exacerbation did continue patient bronchodilator as well as inhaled corticosteroids 9. DVT prophylaxis ? Lovenox SC 40 mg every 12 hours ? Physical Exam Narrative GENERAL: cooperative HEENT: Atraumatic; normocephalic EYES; Anicteric, Normal Conjunctiva NECK; supple, normal thyroid, RESPIRATORY: Diminished to auscultation CARDIOVASCULAR: Regular S1 S2, GI: soft, normoactive bowel sounds, : No Renal angle tenderness; EXTREMITIES: No edema, no clubbing, MUSCULOSKELETAL: Left fifth toe in surgical address NEURO: Awake; no lateralizing signs. SKIN: No Rash PSYCH; Flat affect Weight / BMI Weight Weight: 115.3 kg Body Mass Index (BMI) 49.6 ABG / Lab / Microbiology Data 05/14/25 04:11 05/14/25 04:11 Laboratory: Laboratory Results - last 24 hr 05/14/25 11:26: POC Glucose 146 H 05/14/25 16:46: POC Glucose 175 H 05/14/25 21:49: POC Glucose 196 H 05/15/25 06:03: POC Glucose 198 H Microbiology: Microbiology 05/11/25 09:30 Wound - Left Foot Gram Stain - Final 05/11/25 09:30 Wound - Left Foot Wound Culture - Preliminary Corynebacterium diphtheriae Staphylococcus capitis Gram positive organism 05/11/25 09:30 Wound - Left Foot Anaerobic Culture - Preliminary Checking for anaerobes, further studies to follow. D/C Instructions Discharge Activity: Return to Normal Activity Call your doctor if you observe: Fever of 101 or Higher, Shortness of breath, Fainting spells and Chest pain DC O2, CPAP, BIPAP Needs Home O2 Discharge instructions: No Meaningful Use Info Meaningful Use Meaningful Use Diagnoses (Choose all that apply): None applicable Discharge Plan Admission Admit Date/Time: 05/10/25 18:45 Attending Provider: Flaco Yang Primary Care Provider: Corby Heller Chi Consulting Providers: Luis Bhardwaj; Holly Lopez; Rob Krishnamurthy; Hari Miranda Discharge Orders/Prescriptions Prescriptions: New doxycycline monohydrate 100 mg Capsule 100 mg PO BID 42 Days Qty: 84 0RF amoxicillin-pot clavulanate 875-125 mg tablet 1 tab PO BID 42 Days Qty: 84 0RF Continued polysaccharide iron complex [Ferrex 150] 150 mg iron capsule 150 mg PO QDAY ipratropium bromide 42 mcg (0.06 %) spray,non-aerosol 2 spray intranasal DAILY Patient Comments: [NO ORIGINAL SIG] levalbuterol tartrate 45 mcg/actuation HFA aerosol inhaler 1 puff inhalation Q4H PRN (Reason: shortness of breath) fluticasone propionate 1 SPRAY spray,suspension 2 spray [...] TAKE 1 TABLET BY MOUTH ONCE DAILY ropinirole 2 mg tablet 2 mg PO QHS metformin 500 mg tablet 500 mg PO BID Patient Comments: WITH EACH MEAL Xtepshxrpnb-Wesji-ZHC Complex 715-337-66-0.5 mg tablet 3 tab PO DAILY cranberry fruit 400 mg capsule 400 mg PO DAILY Rx Instructions: administer with a meal coenzyme Q10 [CoQ-10] 100 mg capsule 50 mg PO DAILY melatonin 10 mg capsule 10 mg PO QHS ascorbate calcium (vitamin C) 500 mg tablet 500 mg PO DAILY echinacea 500 mg capsule 1,000 mg PO DAILY Rx Instructions: administer with meals vitamin B complex Tablet 1 tab PO DAILY budesonide 0.5 mg/2 mL Suspension For Nebulization 0.5 mg inhalation Q12H PRN PRN (Reason: breathing) Kerendia 20 mg tablet 20 mg PO DAILY Referrals / Follow Up: Luis Bhardwaj DPM [Med Staff - Active Staff] - Within 1 Week Rob Krishnamurthy MD [Med Staff - Active Staff] - Within 2 Weeks Corby Heller Chi, MD [Primary Care Provider] - Within 2 Weeks Disposition Disposition (needs filled in before D/C Order can be placed): Home Health Service Charges/Coding Visit Charges Inpatient E&M: 55966 Disch Hosp >30min 05/15/25 1052 Cosigner Signature (if applicable): CC: Dr. Flaco Yang MD; Dr. Corby Heller MD~ Signed [facility] [facility] Note Date/Time May 14, 2025 5: 12pm [facility] Medical Records Department [address] [place] [address] Progress Note 05/14/25 1707 MR#: [id number] Acct: [id number] Name: EDUAR CABRERA Rep #:[id number] : 1950 75 From: Luis Bhardwaj DPM PCP: Dr. Corby Heller MD Status:ADM I N Location: [place] [address] Subjective Subjective Patient was seen today for follow up on left 5th toe. She is resting sitting in chair with feet elevated. She has been having breathing difficulty, relates it is due to her asthma, hospital medicine is following. Objective Data Objective Data Vital Signs: Vital Signs Temp Pulse Resp BP Pulse Ox O2 Del Method O2 Flow Rate 99.0 F 83 18 139/68 H 93 Room Air 1 05/14/25 14:29 05/14/25 14:32 05/14/25 14:32 05/14/25 14:29 05/14/25 14:29 05/14/25 14:29 05/14/25 02:40 Oxygen Flow Rate (L/min) 1 Oxygen Delivery Method Room Air Weight: 115.3 kg Body Mass Index (BMI) 49.6 Intake & Output: Intake and Output for Last 24 Hours 05/12/25 05/13/25 05/14/25 23:59 23:59 23:59 Intake Total 912.5 / 912.5 1050 / 1050 500 / 500 Output Total 950 / 950 1500 / 1500 400 / 400 Balance -37.5 / -37.5 -450 / -450 100 / 100 Lab / Micro Data 05/14/25 04:11 05/14/25 04:11 Labs: Laboratory Results - last 24 hr 05/13/25 22:14: POC Glucose 97 05/14/25 04:11: WBC 8.0, RBC 2.90 L, Hgb 8.8 L, Hct 27.1 L, MCV 93.4, MCH 30.3, MCHC 32.5, RDW Std Deviation 50.6 H, RDW Coeff of Cecil 14.8 H, Plt Count 185, MPV9.4, Immature Gran % (Auto) 1.000 H, Neut % (Auto) 56.9, Lymph % (Auto) 19.5, Darke % (Auto) 7.9, Eos % (Auto) 13.9 H, Baso % (Auto) 0.8, Absolute Neuts (auto)4.6, Absolute Lymphs (auto) 1.56, Nucleated RBC % 0, Sodium 139, Potassium 3.8, Chloride 105, Carbon Dioxide 21.7, Anion Gap 13, BUN 28 H, Creatinine 1.09, Estim Creat Clear Calc 50.89, Est GFR (MDRD) Non-Af 53 L, BUN/Creatinine Ratio 26.1 H, Glucose 117 H, Calcium 9.3 05/14/25 06:10: POC Glucose 109 H 05/14/25 11:26: POC Glucose 146 H Micro: Microbiology 05/11/25 09:30 Wound - Left Foot Gram Stain - Final 05/11/25 09:30 Wound - Left Foot Wound Culture - Preliminary Corynebacterium diphtheriae Staphylococcus capitis Gram positive organism Radiography Diagnostic Testing: Radiology Impression Extremity Arterial Study 05/11/25 09:44 Interpretation Summary Triphasic Doppler waveforms are noted at ankle level bilaterally. Pulse-volume recordings appear satisfactory at all levels bilaterally. Resting ankle-brachial indices are normal bilaterally. The right digital-brachial index is normal. The left digital-brachial index is low-normal. There is no evidence of significant arterial occlusive disease in the lower extremities bilaterally. Ordering Physician: Luis Bhardwaj Referring Physician: Corby Heller Chi Performed By: NELLIE PARIS RVT Physical Exam Const alert, oriented x3 and no apparent distress Constitutional Narrative: Left 5th toe with ulceration plantar sulcus down to flexor tendon - healing and closing, it is much smaller, no probe to bone, tissues remain healthy, viable and granular, there is no drainage and no maloder at this time, there is no visible abscess, no fluctuance, no crepitus, no necrosis, there is minimal residual erythema to the left 5th toe, no erythema to forefoot, no other open lesions bilateral foot. There is minimal to no pain to ulcer left 5th toe, she relates to some pain by the left 5th digit toenail, the toenail is chronically thickened and dystrophic but no acute findings, no drainage. No evidence of acute ischemia left foot or to the toes, CFT < 2 seconds to all toes on left foot. Assessment & Plan Assessment/Plan (1) Type 2 diabetes mellitus with foot ulcer: (2) Cellulitis of left lower limb: (3) Ulcer of left foot with muscle involvement without evidence of necrosis: PLAN: Plan Evaluation performed. Reviewed diagnostic data. Ulceration sub left 5th toe at area of the sulcus. No debridement needed at this time. Toe and wound continue to improve. MRI was reviewed and findings c/w osteomyelitis to left 5th toe - discussed withpatient - we have discussed nonsurgical vs surgical options. Surgery would entail left 5th toe amputation while nonsurgical would be local wound care and antibiotic therapy. She relates she would like to try to continue to save the toe. There continues to be improvement noted. A culture was obtained of the ulceration. Reviewed and patient is on Doxy and Unasyn, Infectious Disease on consult, plan for oral antibiotics at discharge per ID service. Noninvasive lower extremity arterial studies ordered - there is no evidence of acute ischemia to foot bilateral - reviewed LEAS - there is normal GALO bilateral, there is low-normal TBI left - discussed with patient. Toe and wound left 5th digit improving and will consult vascular surgery if does not continue to improve/resolve. She agreed with this plan and approach. Wound care left 5th toe: Betadine soln topically and gauze dressing BID. No weightbearing to toes left foot. Use surgical shoe left foot with any ambulationand when in transit. Podiatry will continue to follow. 05/14/25 1712 <Electronically signed by Luis Bhardwaj DPM> Luis Bhardwaj DPM Cosigner Signature (if applicable): CC: ~ Signed [facility] Work Phone: 1(426) 630-358908-18-2025 Progress note Author Hari Miranda [facility] Note Date/Time May 14, 2025 4: 51pm [facility] Medical Records Department [address] [place] [address] Progress Note - Hospitalist 05/14/25 1646 MR#: [id number] Acct: [id number] Name: EDUAR CABRERA Rep #:[id number] : 1950 75 From: Hari Whelan PCP: Dr. Corby Heller MD Status:ADM I N Location: [place] [address] Reason for Visit Chief Complaint: Left toe pain and swelling Objective Data Objective Data Vital Signs: Vital Signs Temp Pulse Resp BP Pulse Ox O2 Del Method O2 Flow Rate 99.0 F 83 18 139/68 H 93 Room Air 1 05/14/25 14:29 05/14/25 14:32 05/14/25 14:32 05/14/25 14:29 05/14/25 14:29 05/14/25 14:29 05/14/25 02:40 Oxygen Flow Rate (L/min) 1 Oxygen Delivery Method Room Air Weight: 254 lb 3.088 oz Body Mass Index (BMI) 49.6 Intake & Output: Intake and Output for Last 24 Hours 05/12/25 05/13/25 05/14/25 23:59 23:59 23:59 Intake Total 912.5 / 912.5 1050 / 1050 500 / 500 Output Total 950 / 950 1500 / 1500 400 / 400 Balance -37.5 / -37.5 -450 / -450 100 / 100 Lab / Micro Data 05/14/25 04:11 05/14/25 04:11 Labs: Laboratory Results - last 24 hr 05/13/25 16:10: POC Glucose 119 H 05/13/25 22:14: POC Glucose 97 05/14/25 04:11: WBC 8.0, RBC 2.90 L, Hgb 8.8 L, Hct 27.1 L, MCV 93.4, MCH 30.3, MCHC 32.5, RDW Std Deviation 50.6 H, RDW Coeff of Cecil 14.8 H, Plt Count 185, MPV9.4, Immature Gran % (Auto) 1.000 H, Neut % (Auto) 56.9, Lymph % (Auto) 19.5, Darke % (Auto) 7.9, Eos % (Auto) 13.9 H, Baso % (Auto) 0.8, Absolute Neuts (auto)4.6, Absolute Lymphs (auto) 1.56, Nucleated RBC % 0, Sodium 139, Potassium 3.8, Chloride 105, Carbon Dioxide 21.7, Anion Gap 13, BUN 28 H, Creatinine 1.09, Estim Creat Clear Calc 50.89, Est GFR (MDRD) Non-Af 53 L, BUN/Creatinine Ratio 26.1 H, Glucose 117 H, Calcium 9.3 05/14/25 06:10: POC Glucose 109 H 05/14/25 11:26: POC Glucose 146 H Micro: Microbiology 05/11/25 09:30 Wound - Left Foot Gram Stain - Final 05/11/25 09:30 Wound - Left Foot Wound Culture - Preliminary Corynebacterium diphtheriae Staphylococcus capitis Gram positive organism Radiography Diagnostic Testing: Radiology Impression Extremity Arterial Study 05/11/25 09:44 Interpretation Summary Triphasic Doppler waveforms are noted at ankle level bilaterally. Pulse-volume recordings appear satisfactory at all levels bilaterally. Resting ankle-brachial indices are normal bilaterally. The right digital-brachial index is normal. The left digital-brachial index is low-normal. There is no evidence of significant arterial occlusive disease in the lower extremities bilaterally. Ordering Physician: Luis Bhardwaj Referring Physician: Corby Heller Chi Performed By: NELLIE PARIS RVT Physical Exam Narrative Seen and examined In the morning patient felt like asthma exacerbation with shortness of breath, chest tightness and wheezing. Mild dry cough. Seen by ID and recommended oral antibiotics for discharge Physical exam General: Alert, Oriented x3, Cooperative. BMI 49.6 kg/m?, morbid obesity HEENT: Atraumatic, PERRLA, EOMI, Normocephalic. Oral: Oral mucosa moist. No Gingival or Mucosal Lesions/ Ulcerations Neck: Supple, No JVD, Negative Carotid Bruits Chest wall/Lungs: Air entry diminished in both lungs. Bilateral wheezing. Cardiovascular: Regular rate and rhythm, Normal S1,S2, No M/G/R Abdomen: Bowel Sounds Present, Soft, Non Tender, Non-Distended : No dysuria. No renal angle tenderness. No suprapubic tenderness. Extremities: No edema, Capillary Refill Less than 3 Seconds Skin: Small ulcer with visible tiny possible tendon but no bone felt on the medial side of left fifth toe. Healing. Musculoskeletal: No Tenderness to Palpation of Joints or Extremities Neurological: Cranial nerves II-XII grossly intact, DTR 2+/4. No acute focal neurological deficit. Psych/Mental Status: Normal Affect, Appropriate. Assessment & Plan Assessment/Plan (1) Diabetic foot infection: PLAN: Plan 75-year-old female admitted with left fifth toe pain with radiation towards the ankle for several weeks. Redness, swelling on left lateral foot for past 2 days. History with complicated DM type II with neuropathy. Follows with Dr. Geiger # Cellulitis of foot in diabetic patient -Elevated ESR, CRP -X-ray of foot only showed soft tissue swelling. MRI is pending. ? Initially started on IV vancomycin and Zosyn. Had rash with Vanco in ED. Vancomycin narrowed down to doxycycline. ID Zosyn narrowed to Unasyn. Was seen and examined with canvas cutter hand. Further plan after MRI. Culture was taken and sent. 05/12: MRI shows cortical irregularity of distal phalanx of left fifth toe with marrow edema suggesting osteomyelitis. Little toe cellulitis with soft tissue ulcer. Subcutaneous soft tissue thickening. This was discussed with Dr. Bhardwaj and he said this is very mild and patient is okay with treatment with IVantibiotics only. Will wait for the culture and then narrow the antibiotic probably on Wednesday with opinion from ID [employer] drm consultant. 05/13: Continue antibiotic doxycycline and Unasyn. Wound care dressing with Betadine solution twice daily. No weightbearing on the toes. Culture growing GPR and GPC. ID follow-up tomorrow anticipate discharge 05/14: Prelim wound culture growing corynebacterium, Staph capitis/CoNS and GPR Was seen by ID and recommended discharge antibiotics, 6 weeks total abx with po doxy 100mg bid and augmentin 875mg bid, start date 05/10/25, stop date 06/21/25. ID followup in 2 weeks. But the patient is not ready for discharge because of mild asthma exacerbation as mentioned below Mild asthma exacerbation: Patient has cough shortness of breath chest tightness. Started on scheduled bronchodilator, IV Solu-Medrol, Mucinex, incentive spirometry and Pep. I anticipate that patient might be better tomorrow for discharge. # Intermittent tachycardia -Patient has intermittently had heart rates up to 140s/150?s with narrow complextachycardia that would start and stop quickly, suspected to be slow SVT. EKG right after episode with sinus rhythm with first-degree AV block. Patient asymptomatic during those events -Monitor on telemetry -Echocardiogram Accu-Chek before meals and at bedtime with Humalog sliding scale coverage and hypoglycemia protocol. May 2023 shows EF 45%, mild MR mild TR, RVSP 45 emergency. -TSH 2.81. Heart rate 76/min. Echo is ordered - If further episodes or persistent may need to start beta-rivera or consider cardiology consult 05/12: Tachycardia has resolved. #Type 2 diabetes mellitus complicated with diabetic neuropathy -Glucose checks and sliding scale insulin - A1c 6.6%. Glucose is reasonably controlled less than 150 mg/dL. 05/12: Glucoses controlled. 05/13: Glucoses reasonably well-controlled. #Hypothyroidism -Continue Synthroid #SUSAN -Continue home NIPPV if applicable #Depression/anxiety -Continue home medications # Restless leg syndrome -continue patient's home medication regimen # History of asthma - Budesonide inhaler as needed #Morbid obesity -BMI documented as 48 kg/m? at time of admission -Complicates treatment, prognosis, outcomes -Recommend weight loss and lifestyle changes #DVT ppx: Lovenox 40 mg SQ twice daily Microbiology Past 72 Hours 05/11/25 09:30 Wound - Left Foot Gram Stain - Final 05/11/25 09:30 Wound - Left Foot Wound Culture - Preliminary Corynebacterium diphtheriae Staphylococcus capitis Gram positive organism Laboratory Results 05/13/25 16:10: POC Glucose 119 H 05/13/25 22:14: POC Glucose 97 05/14/25 04:11: WBC 8.0, RBC 2.90 L, Hgb 8.8 L, Hct 27.1 L, MCV 93.4, MCH 30.3, MCHC 32.5, RDW Std Deviation 50.6 H, RDW Coeff of Cecil 14.8 H, Plt Count 185, MPV9.4, Immature Gran % (Auto) 1.000 H, Neut % (Auto) 56.9, Lymph % (Auto) 19.5, Darke % (Auto) 7.9, Eos % (Auto) 13.9 H, Baso % (Auto) 0.8, Absolute Neuts (auto)4.6, Absolute Lymphs (auto) 1.56, Nucleated RBC % 0, Sodium 139, Potassium 3.8, Chloride 105, Carbon Dioxide 21.7, Anion Gap 13, BUN 28 H, Creatinine 1.09, Estim Creat Clear Calc 50.89, Est GFR (MDRD) Non-Af 53 L, BUN/Creatinine Ratio 26.1 H, Glucose 117 H, Calcium 9.3 05/14/25 06:10: POC Glucose 109 H 05/14/25 11:26: POC Glucose 146 H Echo June 19 Interpretation Summary The study was technically difficult. The left ventricular ejection fraction is 45 %. Moderate mitral annular calcification. Mild (1+) mitral valve insufficiency. Mild tricuspid valve insufficiency. Right ventricular systolic pressure estimated to be 45 mmHg. Clinical Impression(s) from Imaging Studies Foot X-Ray 05/10/25 15:20 IMPRESSION: Profound osteopenia, no demonstrated fracture, please see discussion above Polyarticular arthrosis Calcaneal spurs Soft tissue swelling Charges/Coding Visit Charges Inpatient E&M: 62605 Subs Hosp L2 05/14/25 1651 <Electronically signed by Hari Miranda MD> Cosigner Signature (if applicable): CC: ~ Signed [facility] Work Phone: 1(127) 908-340508-18-2025 Progress note [facility] Medical Records Department [address] [place] [address] Progress Note 05/14/25 1707 MR#: [id number] Acct: [id number] Name: EDUAR CABRERA Rep #:[id number] : 1950 75 From: Luis Bhardwaj DPM PCP: Dr. Corby Heller MD Status:ADM I N Location: [place] [address] Subjective Subjective Patient was seen today for follow up on left 5th toe. She is resting sitting in chair with feet elevated. She has been having breathing difficulty, relates it is due to her asthma, hospital medicine is following. Objective Data Objective Data Vital Signs: Vital Signs Temp Pulse Resp BP Pulse Ox O2 Del Method O2 Flow Rate 99.0 F 83 18 139/68 H 93 Room Air 1 05/14/25 14:29 05/14/25 14:32 05/14/25 14:32 05/14/25 14:29 05/14/25 14:29 05/14/25 14:29 05/14/25 02:40 Oxygen Flow Rate (L/min) 1 Oxygen Delivery Method Room Air Weight: 115.3 kg Body Mass Index (BMI) 49.6 Intake & Output: Intake and Output for Last 24 Hours 05/12/25 05/13/25 05/14/25 23:59 23:59 23:59 Intake Total 912.5 / 912.5 1050 / 1050 500 / 500 Output Total 950 / 950 1500 / 1500 400 / 400 Balance -37.5 / -37.5 -450 / -450 100 / 100 Lab / Micro Data 05/14/25 04:11 05/14/25 04:11 Labs: Laboratory Results - last 24 hr 05/13/25 22:14: POC Glucose 97 05/14/25 04:11: WBC 8.0, RBC 2.90 L, Hgb 8.8 L, Hct 27.1 L, MCV 93.4, MCH 30.3, MCHC 32.5, RDW Std Deviation 50.6 H, RDW Coeff of Cecil 14.8 H, Plt Count 185, MPV9.4, Immature Gran % (Auto) 1.000 H, Neut % (Auto) 56.9, Lymph % (Auto) 19.5, Darke % (Auto) 7.9, Eos % (Auto) 13.9 H, Baso % (Auto) 0.8, Absolute Neuts (auto)4.6, Absolute Lymphs (auto) 1.56, Nucleated RBC % 0, Sodium 139, Potassium 3.8, Chloride 105, Carbon Dioxide 21.7, Anion Gap 13, BUN 28 H, Creatinine 1.09, Estim Creat Clear Calc 50.89, Est GFR (MDRD) Non-Af 53 L, BUN/Creatinine Ratio 26.1 H, Glucose 117 H, Calcium 9.3 05/14/25 06:10: POC Glucose 109 H 05/14/25 11:26: POC Glucose 146 H Micro: Microbiology 05/11/25 09:30 Wound - Left Foot Gram Stain - Final 05/11/25 09:30 Wound - Left Foot Wound Culture - Preliminary Corynebacterium diphtheriae Staphylococcus capitis Gram positive organism Radiography Diagnostic Testing: Radiology Impression Extremity Arterial Study 05/11/25 09:44 Interpretation Summary Triphasic Doppler waveforms are noted at ankle level bilaterally. Pulse-volume recordings appear satisfactory at all levels bilaterally. Resting ankle-brachial indices are normal bilaterally. The right digital-brachial index is normal. The left digital-brachial index is low-normal. There is no evidence of significant arterial occlusive disease in the lower extremities bilaterally. Ordering Physician: Luis Bhardwaj Referring Physician: Corby Heller Chi Performed By: NELLIE PARIS RVT Physical Exam Const alert, oriented x3 and no apparent distress Constitutional Narrative: Left 5th toe with ulceration plantar sulcus down to flexor tendon - healing and closing, it is muchsmaller, no probe to bone, tissues remain healthy, viable and granular, there is no drainage and nomaloder at this time, there is no visible abscess, no fluctuance, no crepitus, no necrosis, there is minimal residual erythema to the left 5th toe, no erythema to forefoot, no other open lesions bilateral foot. There is minimal to no pain to ulcer left 5th toe, she relates to some pain by the left 5th digit toenail, the toenail is chronically thickened and dystrophic but no acute findings, no drainage. No evidence of acute ischemia left foot or to the toes, CFT < 2 seconds to all toes on left foot. Assessment & Plan Assessment/Plan (1) Type 2 diabetes mellitus with foot ulcer: (2) Cellulitis of left lower limb: (3) Ulcer of left foot with muscle involvement without evidence of necrosis: PLAN: Plan Evaluation performed. Reviewed diagnostic data. Ulceration sub left 5th toe at area of the sulcus. No debridement needed at this time. Toe and wound continue to improve. MRI was reviewed and findings c/w osteomyelitis to left 5th toe - discussed withpatient - we have discussed nonsurgical vs surgical options. Surgery would entail left 5th toe amputation while nonsurgical would be local wound care and antibiotic therapy. She relates she would like to try to continueto save the toe. There continues to be improvement noted. A culture was obtained of the ulceration. Reviewed and patient is on Doxy and Unasyn, Infectious Disease on consult, plan for oral antibiotics at discharge per ID service. Noninvasive lower extremity arterial studies ordered - there is no evidence of acute ischemia to foot bilateral - reviewed LEAS - there is normal GALO bilateral, there is low-normal TBI left - discussed with patient. Toe and wound left 5th digit improving and will consult vascular surgery if does not continue to improve/resolve. She agreed with this plan and approach. Wound care left 5th toe: Betadine soln topically and gauze dressing BID. No weightbearing to toes left foot. Use surgical shoe left foot with any ambulationand when in transit. Podiatry will continue to follow. 05/14/25 1712 Luis Cevallosignchelsea Signature (if applicable): CC: ~ Signed [facility]08-18-2025 Progress note [facility] Medical Records Department [address] [place] [address] Progress Note - Hospitalist 05/14/25 1646 MR#: [id number] Acct: [id number] Name: EDUAR CABRERA Rep #:[id number] : 1950 75 From: Hari Whelan PCP: Dr. Corby Heller MD Status:ADM I N Location: [place] [address] Reason for Visit Chief Complaint: Left toe pain and swelling Objective Data Objective Data Vital Signs: Vital Signs Temp Pulse Resp BP Pulse Ox O2 Del Method O2 Flow Rate 99.0 F 83 18 139/68 H 93 Room Air 1 05/14/25 14:29 05/14/25 14:32 05/14/25 14:32 05/14/25 14:29 05/14/25 14:29 05/14/25 14:29 05/14/25 02:40 Oxygen Flow Rate (L/min) 1 Oxygen Delivery Method Room Air Weight: 254 lb 3.088 oz Body Mass Index (BMI) 49.6 Intake & Output: Intake and Output for Last 24 Hours 05/12/25 05/13/25 05/14/25 23:59 23:59 23:59 Intake Total 912.5 / 912.5 1050 / 1050 500 / 500 Output Total 950 / 950 1500 / 1500 400 / 400 Balance -37.5 / -37.5 -450 / -450 100 / 100 Lab / Micro Data 05/14/25 04:11 05/14/25 04:11 Labs: Laboratory Results - last 24 hr 05/13/25 16:10: POC Glucose 119 H 05/13/25 22:14: POC Glucose 97 05/14/25 04:11: WBC 8.0, RBC 2.90 L, Hgb 8.8 L, Hct 27.1 L, MCV 93.4, MCH 30.3, MCHC 32.5, RDW Std Deviation 50.6 H, RDW Coeff of Cecil 14.8 H, Plt Count 185, MPV9.4, Immature Gran % (Auto) 1.000 H, Neut % (Auto) 56.9, Lymph % (Auto) 19.5, Darke % (Auto) 7.9, Eos % (Auto) 13.9 H, Baso % (Auto) 0.8, Absolute Neuts (auto)4.6, Absolute Lymphs (auto) 1.56, Nucleated RBC % 0, Sodium 139, Potassium 3.8, Chloride 105, Carbon Dioxide 21.7, Anion Gap 13, BUN 28 H, Creatinine 1.09, Estim Creat Clear Calc 50.89, Est GFR (MDRD) Non-Af 53 L, BUN/Creatinine Ratio 26.1 H, Glucose 117 H, Calcium 9.3 05/14/25 06:10: POC Glucose 109 H 05/14/25 11:26: POC Glucose 146 H Micro: Microbiology 05/11/25 09:30 Wound - Left Foot Gram Stain - Final 05/11/25 09:30 Wound - Left Foot Wound Culture - Preliminary Corynebacterium diphtheriae Staphylococcus capitis Gram positive organism Radiography Diagnostic Testing: Radiology Impression Extremity Arterial Study 05/11/25 09:44 Interpretation Summary Triphasic Doppler waveforms are noted at ankle level bilaterally. Pulse-volume recordings appear satisfactory at all levels bilaterally. Resting ankle-brachial indices are normal bilaterally. The right digital-brachial index is normal. The left digital-brachial index is low-normal. There is no evidence of significant arterial occlusive disease in the lower extremities bilaterally. Ordering Physician: Luis Bhardwaj Referring Physician: Corby Heller Chi Performed By: NELLIE PARIS RVT Physical Exam Narrative Seen and examined In the morning patient felt like asthma exacerbation with shortness of breath, chest tightness and wheezing. Mild dry cough. Seen by ID and recommended oral antibiotics for discharge Physical exam General: Alert, Oriented x3, Cooperative. BMI 49.6 kg/m?, morbid obesity HEENT: Atraumatic, PERRLA, EOMI, Normocephalic. Oral: Oral mucosa moist. No Gingival or Mucosal Lesions/ Ulcerations Neck: Supple, No JVD, Negative Carotid Bruits Chest wall/Lungs: Air entry diminished in both lungs. Bilateral wheezing. Cardiovascular: Regular rate and rhythm, Normal S1,S2, No M/G/R Abdomen: Bowel Sounds Present, Soft, Non Tender, Non-Distended : No dysuria. No renal angle tenderness. No suprapubic tenderness. Extremities: No edema, Capillary Refill Less than 3 Seconds Skin: Small ulcer with visible tiny possible tendon but no bone felt on the medial side of left fifth toe. Healing. Musculoskeletal: No Tenderness to Palpation of Joints or Extremities Neurological: Cranial nerves II-XII grossly intact, DTR 2+/4. No acute focal neurological deficit. Psych/Mental Status: Normal Affect, Appropriate. Assessment & Plan Assessment/Plan (1) Diabetic foot infection: PLAN: Plan 75-year-old female admitted with left fifth toe pain with radiation towards the ankle for several weeks. Redness, swelling on left lateral foot for past 2 days. History with complicated DM type II with neuropathy. Follows with Dr. Geiger # Cellulitis of foot in diabetic patient -Elevated ESR, CRP -X-ray of foot only showed soft tissue swelling. MRI is pending. ? Initially started on IV vancomycin and Zosyn. Had rash with Vanco in ED. Vancomycin narrowed downto doxycycline. ID Zosyn narrowed to Unasyn. Was seen and examined with canvas cutter hand. Further plan after MRI. Culture was taken and sent. 05/12: MRI shows cortical irregularity of distal phalanx of left fifth toe with marrow edema suggesting osteomyelitis. Little toe cellulitis with soft tissue ulcer. Subcutaneous soft tissue thickening. This was discussed with Dr. Bhardwaj and he said this is very mild and patient is okay with treatment with IVantibiotics only. Will wait for the culture and then narrow the antibiotic probably on Wednesday with opinion from ID [facility] drm consultant. 05/13: Continue antibiotic doxycycline and Unasyn. Wound care dressing with Betadine solution twice daily. No weightbearing on the toes. Culture growing GPR and GPC. ID follow-up tomorrow anticipate discharge 05/14: Prelim wound culture growing corynebacterium, Staph capitis/CoNS and GPR Was seen by ID and recommended discharge antibiotics, 6 weeks total abx with po doxy 100mg bid and augmentin 875mg bid, start date 05/10/25, stop date 06/21/25. ID followup in 2 weeks. But the patient is not ready for discharge because of mild asthma exacerbation as mentioned below Mild asthma exacerbation: Patient has cough shortness of breath chest tightness. Started on scheduled bronchodilator, IV Solu-Medrol, Mucinex, incentive spirometry and Pep. I anticipate that patient might be better tomorrow for discharge. # Intermittent tachycardia -Patient has intermittently had heart rates up to 140s/150?s with narrow complextachycardia that would start and stop quickly, suspected to be slow SVT. EKG right after episode with sinus rhythm withfirst-degree AV block. Patient asymptomatic during those events -Monitor on telemetry -Echocardiogram Accu-Chek before meals and at bedtime with Humalog sliding scale coverage and hypoglycemia protocol. May 2023 shows EF 45%, mild MR mild TR, RVSP 45 emergency. -TSH 2.81. Heart rate 76/min. Echo is ordered - If further episodes or persistent may need to start beta-rivera or consider cardiology consult 05/12: Tachycardia has resolved. #Type 2 diabetes mellitus complicated with diabetic neuropathy -Glucose checks and sliding scale insulin - A1c 6.6%. Glucose is reasonably controlled less than 150 mg/dL. 05/12: Glucoses controlled. 05/13: Glucoses reasonably well-controlled. #Hypothyroidism -Continue Synthroid #SUSAN -Continue home NIPPV if applicable #Depression/anxiety -Continue home medications # Restless leg syndrome -continue patient's home medication regimen # History of asthma - Budesonide inhaler as needed #Morbid obesity -BMI documented as 48 kg/m? at time of admission -Complicates treatment, prognosis, outcomes -Recommend weight loss and lifestyle changes #DVT ppx: Lovenox 40 mg SQ twice daily Microbiology Past 72 Hours 05/11/25 09:30 Wound - Left Foot Gram Stain - Final 05/11/25 09:30 Wound - Left Foot Wound Culture - Preliminary Corynebacterium diphtheriae Staphylococcus capitis Gram positive organism Laboratory Results 05/13/25 16:10: POC Glucose 119 H 05/13/25 22:14: POC Glucose 97 05/14/25 04:11: WBC 8.0, RBC 2.90 L, Hgb 8.8 L, Hct 27.1 L, MCV 93.4, MCH 30.3, MCHC 32.5, RDW Std Deviation 50.6 H, RDW Coeff of Cecil 14.8 H, Plt Count 185, MPV9.4, Immature Gran % (Auto) 1.000 H, Neut % (Auto) 56.9, Lymph % (Auto) 19.5, Darke % (Auto) 7.9, Eos % (Auto) 13.9 H, Baso % (Auto) 0.8, Absolute Neuts (auto)4.6, Absolute Lymphs (auto) 1.56, Nucleated RBC % 0, Sodium 139, Potassium 3.8, Chloride 105, Carbon Dioxide 21.7, Anion Gap 13, BUN 28 H, Creatinine 1.09, Estim Creat Clear Calc 50.89, Est GFR (MDRD) Non-Af 53 L, BUN/Creatinine Ratio 26.1 H, Glucose 117 H, Calcium 9.3 05/14/25 06:10: POC Glucose 109 H 05/14/25 11:26: POC Glucose 146 H Echo June 19 Interpretation Summary The study was technically difficult. The left ventricular ejection fraction is 45 %. Moderate mitral annular calcification. Mild (1+) mitral valve insufficiency. Mild tricuspid valve insufficiency. Right ventricular systolic pressure estimated to be 45 mmHg. Clinical Impression(s) from Imaging Studies Foot X-Ray 05/10/25 15:20 IMPRESSION: Profound osteopenia, no demonstrated fracture, please see discussion above Polyarticular arthrosis Calcaneal spurs Soft tissue swelling Charges/Coding Visit Charges Inpatient E&M: 12200 Subs Hosp L2 05/14/25 1651 Cosigner Signature (if applicable): CC: ~ Signed [facility]08-18-2025 Progress note Author Rob Krishnamurthy [facility] Note Date/Time May 14, 2025 1: 06pm [facility] Medical Records Department [address] [place] [address] Progress Note - Infect Disease 05/14/25 1304 MR#: [id number] Acct: [id number] Name: EDUAR CABRERA Rep #:[id number] : 1950 75 From: Rob hankins MD PCP: Dr. Corby Heller MD Status:ADM I N Location: [place] [address] Physical Exam Narrative Feeling better, some cough and wheezing. Toe less sore. No fever, no n/v/d. Const alert and no apparent distress General Appearance: cooperative Resp normal air movement and clear to auscultation bilaterally Cardio regular rate and regular rhythm GI soft to palpation, non-tender and non-distended Skin Skin Narrative: no new rash ID ID: Route of nutrition/ use of supplements: [] Nutritional Intake: [] IV Site: [] Harris Catheter: [] Assessment & Plan Assessment/Plan (1) Diabetic foot infection: PLAN: Wound cx with corynebacter, MS-CoNS, and GPR. Followed by Dr. Bhardwaj. MRI reviewed, suspected osteo. On doxy and zosyn. Had rash with vanc in ED. Cont doxy, unasyn. Plan on discharge home with 6 weeks total abx with po doxy 100mg bid and augmentin 875mg bid, start date 05/10/25, stop date 06/21/25. ID followup in 2 weeks. Will follow 05/14/25 1306 <Electronically signed by Rob Krishnamurthy MD> Cosigner Signature (if applicable): CC: ~ Signed [facility] Work Phone: 1(109) 375-392008-18-2025 Progress note [facility] Medical Records Department [address] [place] [address] Progress Note - Infect Disease 05/14/25 1304 MR#: [id number] Acct: [id number] Name: EDUAR CABRERA Rep #:[id number] : 1950 75 From: Rob hankins MD PCP: Dr. Corby Heller MD Status:ADM I N Location: [place] [address] Physical Exam Narrative Feeling better, some cough and wheezing. Toe less sore. No fever, no n/v/d. Const alert and no apparent distress General Appearance: cooperative Resp normal air movement and clear to auscultation bilaterally Cardio regular rate and regular rhythm GI soft to palpation, non-tender and non-distended Skin Skin Narrative: no new rash ID ID: Route of nutrition/ use of supplements: [] Nutritional Intake: [] IV Site: [] Harris Catheter: [] Assessment & Plan Assessment/Plan (1) Diabetic foot infection: PLAN: Wound cx with corynebacter, MS-CoNS, and GPR. Followed by Dr. Bhardwaj. MRI reviewed, suspected osteo. On doxy and zosyn. Had rash with vanc in ED. Cont doxy, unasyn. Plan on discharge home with6 weeks total abx with po doxy 100mg bid and augmentin 875mg bid, start date 05/10/25, stop date 06/21/25. ID followup in 2 weeks. Will follow 05/14/25 1306 Cosigner Signature (if applicable): CC: ~ Signed [facility]08-17-2025 Progress note Author Hari Miranda [facility] Note Date/Time May 13, 2025 11 :54am [facility] Medical Records Department [address] [place] [address] Progress Note - Hospitalist 05/13/25 1149 MR#: [id number] Acct: [id number] Name: EDUAR CABRERA Rep #:[id number] : 1950 75 From: Hari Whelan PCP: Dr. Corby Heller MD Status:ADM I N Location: [place] [address] Reason for Visit Chief Complaint: Left toe pain and swelling Objective Data Objective Data Vital Signs: Vital Signs Temp Pulse Resp BP Pulse Ox O2 Del Method O2 Flow Rate 98.8 F 81 16 131/61 H 95 Room Air 2 05/13/25 08:11 05/13/25 09:27 05/13/25 09:27 05/13/25 08:11 05/13/25 08:11 05/13/25 08:25 05/12/25 22:05 Oxygen Flow Rate (L/min) 2 Oxygen Delivery Method Room Air Weight: 254 lb 3.088 oz Body Mass Index (BMI) 49.6 Intake & Output: Intake and Output for Last 24 Hours 05/11/25 05/12/25 05/13/25 23:59 23:59 23:59 Intake Total 1212.50 / 1412.50 912.5 / 912.5 100 / 100 Output Total 400 / 650 950 / 950 1500 / 1500 Balance 812.50 / 762.50 -37.5 / -37.5 -1400 / -1400 Lab / Micro Data 05/12/25 04:51 05/13/25 05:33 Labs: Laboratory Results - last 24 hr 05/12/25 12:14: POC Glucose 149 H 05/12/25 16:28: POC Glucose 128 H 05/12/25 19:47: POC Glucose 130 H 05/12/25 21:53: POC Glucose 152 H 05/13/25 05:33: Sodium 138, Potassium 4.3, Chloride 104, Carbon Dioxide 22.9, Anion Gap 11, BUN 27 H, Creatinine 1.02, Estim Creat Clear Calc 54.39, Est GFR (MDRD) Non-Af 57 L, BUN/Creatinine Ratio 26.1 H, Glucose 111 H, Calcium 8.9 05/13/25 06:23: POC Glucose 115 H Micro: Microbiology 05/11/25 09:30 Wound - Left Foot Gram Stain - Final 05/11/25 09:30 Wound - Left Foot Wound Culture - Preliminary Gram positive yesica Gram Positive Cocci Physical Exam Narrative Seen and examined Patient and the canvas cutter hand agreed for IV antibiotic treatment. No surgery planned. Discussed with osteomyelitis MRI findings with the patient yesterday. Left fifth toe has medial side erythema and a small ulcer. Physical exam General: Alert, Oriented x3, Cooperative. BMI 49.6 kg/m?, morbid obesity HEENT: Atraumatic, PERRLA, EOMI, Normocephalic. Oral: Oral mucosa moist. No Gingival or Mucosal Lesions/ Ulcerations Neck: Supple, No JVD, Negative Carotid Bruits Chest wall/Lungs: Air entry diminished in bilateral lung bases. No crepitation/rhonchi Cardiovascular: Regular rate and rhythm, Normal S1,S2, No M/G/R Abdomen: Bowel Sounds Present, Soft, Non Tender, Non-Distended : No dysuria. No renal angle tenderness. No suprapubic tenderness. Extremities: No edema, Capillary Refill Less than 3 Seconds Skin: Small ulcer with visible tiny possible tendon but no bone felt on the medial side of left fifth toe. Healing. Musculoskeletal: No Tenderness to Palpation of Joints or Extremities Neurological: Cranial nerves II-XII grossly intact, DTR 2+/4. No acute focal neurological deficit. Psych/Mental Status: Normal Affect, Appropriate. Assessment & Plan Assessment/Plan (1) Diabetic foot infection: PLAN: Plan 75-year-old female admitted with left fifth toe pain with radiation towards the ankle for several weeks. Redness, swelling on left lateral foot for past 2 days. History with complicated DM type II with neuropathy. Follows with Dr. Geiger. # Cellulitis of foot in diabetic patient -Elevated ESR, CRP -X-ray of foot only showed soft tissue swelling. MRI is pending. ? Initially started on IV vancomycin and Zosyn. Had rash with Vanco in ED. Vancomycin narrowed down to doxycycline. ID Zosyn narrowed to Unasyn. Was seen and examined with canvas cutter hand. Further plan after MRI. Culture was taken and sent. 05/12: MRI shows cortical irregularity of distal phalanx of left fifth toe with marrow edema suggesting osteomyelitis. Little toe cellulitis with soft tissue ulcer. Subcutaneous soft tissue thickening. This was discussed with Dr. Bhardwaj and he said this is very mild and patient is okay with treatment with IVantibiotics only. Will wait for the culture and then narrow the antibiotic probably on Wednesday with opinion from ID [employer] drm consultant. 05/13: Continue antibiotic doxycycline and Unasyn. Wound care dressing with Betadine solution twice daily. No weightbearing on the toes. Culture growing GPR and GPC. ID follow-up tomorrow anticipate discharge # Intermittent tachycardia -Patient has intermittently had heart rates up to 140s/150?s with narrow complextachycardia that would start and stop quickly, suspected to be slow SVT. EKG right after episode with sinus rhythm with first-degree AV block. Patient asymptomatic during those events -Monitor on telemetry -Echocardiogram Accu-Chek before meals and at bedtime with Humalog sliding scale coverage and hypoglycemia protocol. May 2023 shows EF 45%, mild MR mild TR, RVSP 45 emergency. -TSH 2.81. Heart rate 76/min. Echo is ordered - If further episodes or persistent may need to start beta-rivera or consider cardiology consult 05/12: Tachycardia has resolved. #Type 2 diabetes mellitus complicated with diabetic neuropathy -Glucose checks and sliding scale insulin - A1c 6.6%. Glucose is reasonably controlled less than 150 mg/dL. 05/12: Glucoses controlled. 05/13: Glucoses reasonably well-controlled. #Hypothyroidism -Continue Synthroid #SUSAN -Continue home NIPPV if applicable #Depression/anxiety -Continue home medications # Restless leg syndrome -continue patient's home medication regimen # History of asthma - Budesonide inhaler as needed #Morbid obesity -BMI documented as 48 kg/m? at time of admission -Complicates treatment, prognosis, outcomes -Recommend weight loss and lifestyle changes #DVT ppx: Lovenox 40 mg SQ twice daily Microbiology Past 72 Hours 05/11/25 09:30 Wound - Left Foot Gram Stain - Final 05/11/25 09:30 Wound - Left Foot Wound Culture - Preliminary Gram positive yesica Gram Positive Cocci Laboratory Results 05/12/25 12:14: POC Glucose 149 H 05/12/25 16:28: POC Glucose 128 H 05/12/25 19:47: POC Glucose 130 H 05/12/25 21:53: POC Glucose 152 H 05/13/25 05:33: Sodium 138, Potassium 4.3, Chloride 104, Carbon Dioxide 22.9, Anion Gap 11, BUN 27 H, Creatinine 1.02, Estim Creat Clear Calc 54.39, Est GFR (MDRD) Non-Af 57 L, BUN/Creatinine Ratio 26.1 H, Glucose 111 H, Calcium 8.9 05/13/25 06:23: POC Glucose 115 H Echo June 19 Interpretation Summary The study was technically difficult. The left ventricular ejection fraction is 45 %. Moderate mitral annular calcification. Mild (1+) mitral valve insufficiency. Mild tricuspid valve insufficiency. Right ventricular systolic pressure estimated to be 45 mmHg. Clinical Impression(s) from Imaging Studies Foot X-Ray 05/10/25 15:20 IMPRESSION: Profound osteopenia, no demonstrated fracture, please see discussion above Polyarticular arthrosis Calcaneal spurs Soft tissue swelling Charges/Coding Visit Charges Inpatient E&M: 97270 Subs Hosp L2 05/13/25 1154 <Electronically signed by Hari Miranda MD> Cosigner Signature (if applicable): CC: ~ Signed [facility] Work Phone: 1(256) 232-413108-17-2025 Progress note Author Luis Bhardwaj [facility] Note Date/Time May 13, 2025 11 :27am [facility] Medical Records Department [address] [place] [address] Progress Note 05/13/25 1105 MR#: [id number] Acct: [id number] Name: EDUAR CABRERA Rep #:[id number] : 1950 75 From: Luis Bhardwaj DPM PCP: Dr. Corby Heller MD Status:ADM I N Location: [address] Subjective Subjective Patient was seen today for follow up on left 5th toe. She is resting in chair, no new complaints. No f/c/n/v. She denies pain. Objective Data Objective Data Vital Signs: Vital Signs Temp Pulse Resp BP Pulse Ox O2 Del Method O2 Flow Rate 98.8 F 81 16 131/61 H 95 Room Air 2 05/13/25 08:11 05/13/25 09:27 05/13/25 09:27 05/13/25 08:11 05/13/25 08:11 05/13/25 08:25 05/12/25 22:05 Oxygen Flow Rate (L/min) 2 Oxygen Delivery Method Room Air Weight: 115.3 kg Body Mass Index (BMI) 49.6 Intake & Output: Intake and Output for Last 24 Hours 05/11/25 05/12/25 05/13/25 23:59 23:59 23:59 Intake Total 1212.50 / 1412.50 912.5 / 912.5 100 / 100 Output Total 400 / 650 950 / 950 1500 / 1500 Balance 812.50 / 762.50 -37.5 / -37.5 -1400 / -1400 Lab / Micro Data 05/12/25 04:51 05/13/25 05:33 Labs: Laboratory Results - last 24 hr 05/12/25 12:14: POC Glucose 149 H 05/12/25 16:28: POC Glucose 128 H 05/12/25 19:47: POC Glucose 130 H 05/12/25 21:53: POC Glucose 152 H 05/13/25 05:33: Sodium 138, Potassium 4.3, Chloride 104, Carbon Dioxide 22.9, Anion Gap 11, BUN 27 H, Creatinine 1.02, Estim Creat Clear Calc 54.39, Est GFR (MDRD) Non-Af 57 L, BUN/Creatinine Ratio 26.1 H, Glucose 111 H, Calcium 8.9 05/13/25 06:23: POC Glucose 115 H Micro: Microbiology 05/11/25 09:30 Wound - Left Foot Gram Stain - Final 05/11/25 09:30 Wound - Left Foot Wound Culture - Preliminary Gram positive yesica Gram Positive Cocci Physical Exam Const alert, oriented x3 and no apparent distress Constitutional Narrative: Left 5th toe with ulceration plantar sulcus down to flexor tendon, no probe to bone, tissues remain healthy, viable and granular, there is no drainage and no maloder at this time, there is no visible abscess, no fluctuance, no crepitus, no necrosis, there is significantly less erythema to the left 5th toe/forefoot, no other open lesions bilateral foot. There is minimal to no pain to ulcer left 5th toe, otherwise no pain. No evidence of acute ischemia left foot or to the toes, CFT < 2 seconds to all toes on left foot. Assessment & Plan Assessment/Plan (1) Type 2 diabetes mellitus with foot ulcer: (2) Cellulitis of left lower limb: (3) Ulcer of left foot with muscle involvement without evidence of necrosis: PLAN: Plan Evaluation performed. Reviewed diagnostic data. There is an ulceration sub left 5th toe at area of the sulcus. No debridement needed at this time. Improving. MRI was reviewed and findings c/w osteomyelitis to left 5th toe - discussed withpatient - discussed nonsurgical vs surgical options. Surgery would entail left 5th toe amputation while nonsurgical would be local wound care and antibiotic therapy. She relates she would like to try to continue to save the toe. There has been significant improvement since Wednesday. A culture was obtained of the ulceration. Reviewed gram positive cocci and yesica. Patient is on Doxy and Unasyn, Infectious Disease on consult. Noninvasive lower extremity arterial studies ordered - there is no evidence of acute ischemia to foot bilateral. Wound care left 5th toe: Betadine soln topically and gauze dressing BID. No weightbearing to toes left foot. Ordered surgical shoe. She requested a surgicalshoe for right foot as well to keep things balanced. Podiatry will continue to follow. 05/13/25 1127 <Electronically signed by Luis Bhardwaj DPM> Luis Bhardwaj DPM Cosigner Signature (if applicable): CC: ~ Signed [facility] Work Phone: [phone]) 867-732208-17-2025 Progress note [facility] Medical Records Department [address] [place] [address] Progress Note - Hospitalist 05/13/25 1149 MR#: [id number] Acct: [id number] Name: EDUAR CABRERA Rep #:[id number] : 1950 75 From: Hari CHANG: Dr. Corby Heller MD Status:ADM I N Location: [place] [address] Reason for Visit Chief Complaint: Left toe pain and swelling Objective Data Objective Data Vital Signs: Vital Signs Temp Pulse Resp BP Pulse Ox O2 Del Method O2 Flow Rate 98.8 F 81 16 131/61 H 95 Room Air 2 05/13/25 08:11 05/13/25 09:27 05/13/25 09:27 05/13/25 08:11 05/13/25 08:11 05/13/25 08:25 05/12/25 22:05 Oxygen Flow Rate (L/min) 2 Oxygen Delivery Method Room Air Weight: 254 lb 3.088 oz Body Mass Index (BMI) 49.6 Intake & Output: Intake and Output for Last 24 Hours 05/11/25 05/12/25 05/13/25 23:59 23:59 23:59 Intake Total 1212.50 / 1412.50 912.5 / 912.5 100 / 100 Output Total 400 / 650 950 / 950 1500 / 1500 Balance 812.50 / 762.50 -37.5 / -37.5 -1400 / -1400 Lab / Micro Data 05/12/25 04:51 05/13/25 05:33 Labs: Laboratory Results - last 24 hr 05/12/25 12:14: POC Glucose 149 H 05/12/25 16:28: POC Glucose 128 H 05/12/25 19:47: POC Glucose 130 H 05/12/25 21:53: POC Glucose 152 H 05/13/25 05:33: Sodium 138, Potassium 4.3, Chloride 104, Carbon Dioxide 22.9, Anion Gap 11, BUN 27 H, Creatinine 1.02, Estim Creat Clear Calc 54.39, Est GFR (MDRD) Non-Af 57 L, BUN/Creatinine Ratio 26.1 H, Glucose 111 H, Calcium 8.9 05/13/25 06:23: POC Glucose 115 H Micro: Microbiology 05/11/25 09:30 Wound - Left Foot Gram Stain - Final 05/11/25 09:30 Wound - Left Foot Wound Culture - Preliminary Gram positive yesica Gram Positive Cocci Physical Exam Narrative Seen and examined Patient and the canvas cutter hand agreed for IV antibiotic treatment. No surgery planned. Discussed with osteomyelitis MRI findings with the patient yesterday. Left fifth toe has medial side erythema and a small ulcer. Physical exam General: Alert, Oriented x3, Cooperative. BMI 49.6 kg/m?, morbid obesity HEENT: Atraumatic, PERRLA, EOMI, Normocephalic. Oral: Oral mucosa moist. No Gingival or Mucosal Lesions/ Ulcerations Neck: Supple, No JVD, Negative Carotid Bruits Chest wall/Lungs: Air entry diminished in bilateral lung bases. No crepitation/rhonchi Cardiovascular: Regular rate and rhythm, Normal S1,S2, No M/G/R Abdomen: Bowel Sounds Present, Soft, Non Tender, Non-Distended : No dysuria. No renal angle tenderness. No suprapubic tenderness. Extremities: No edema, Capillary Refill Less than 3 Seconds Skin: Small ulcer with visible tiny possible tendon but no bone felt on the medial side of left fifth toe. Healing. Musculoskeletal: No Tenderness to Palpation of Joints or Extremities Neurological: Cranial nerves II-XII grossly intact, DTR 2+/4. No acute focal neurological deficit. Psych/Mental Status: Normal Affect, Appropriate. Assessment & Plan Assessment/Plan (1) Diabetic foot infection: PLAN: Plan 75-year-old female admitted with left fifth toe pain with radiation towards the ankle for several weeks. Redness, swelling on left lateral foot for past 2 days. History with complicated DM type II with neuropathy. Follows with Dr. Geiger. # Cellulitis of foot in diabetic patient -Elevated ESR, CRP -X-ray of foot only showed soft tissue swelling. MRI is pending. ? Initially started on IV vancomycin and Zosyn. Had rash with Vanco in ED. Vancomycin narrowed downto doxycycline. ID Zosyn narrowed to Unasyn. Was seen and examined with canvas cutter hand. Further plan after MRI. Culture was taken and sent. 05/12: MRI shows cortical irregularity of distal phalanx of left fifth toe with marrow edema suggesting osteomyelitis. Little toe cellulitis with soft tissue ulcer. Subcutaneous soft tissue thickening. This was discussed with Dr. Bhardwaj and he said this is very mild and patient is okay with treatment with IVantibiotics only. Will wait for the culture and then narrow the antibiotic probably on Wednesday with opinion from ID [facility] consultant. 05/13: Continue antibiotic doxycycline and Unasyn. Wound care dressing with Betadine solution twice daily. No weightbearing on the toes. Culture growing GPR and GPC. ID follow-up tomorrow anticipate discharge # Intermittent tachycardia -Patient has intermittently had heart rates up to 140s/150?s with narrow complextachycardia that would start and stop quickly, suspected to be slow SVT. EKG right after episode with sinus rhythm withfirst-degree AV block. Patient asymptomatic during those events -Monitor on telemetry -Echocardiogram Accu-Chek before meals and at bedtime with Humalog sliding scale coverage and hypoglycemia protocol. May 2023 shows EF 45%, mild MR mild TR, RVSP 45 emergency. -TSH 2.81. Heart rate 76/min. Echo is ordered - If further episodes or persistent may need to start beta-rivera or consider cardiology consult 05/12: Tachycardia has resolved. #Type 2 diabetes mellitus complicated with diabetic neuropathy -Glucose checks and sliding scale insulin - A1c 6.6%. Glucose is reasonably controlled less than 150 mg/dL. 05/12: Glucoses controlled. 05/13: Glucoses reasonably well-controlled. #Hypothyroidism -Continue Synthroid #SUSAN -Continue home NIPPV if applicable #Depression/anxiety -Continue home medications # Restless leg syndrome -continue patient's home medication regimen # History of asthma - Budesonide inhaler as needed #Morbid obesity -BMI documented as 48 kg/m? at time of admission -Complicates treatment, prognosis, outcomes -Recommend weight loss and lifestyle changes #DVT ppx: Lovenox 40 mg SQ twice daily Microbiology Past 72 Hours 05/11/25 09:30 Wound - Left Foot Gram Stain - Final 05/11/25 09:30 Wound - Left Foot Wound Culture - Preliminary Gram positive yesica Gram Positive Cocci Laboratory Results 05/12/25 12:14: POC Glucose 149 H 05/12/25 16:28: POC Glucose 128 H 05/12/25 19:47: POC Glucose 130 H 05/12/25 21:53: POC Glucose 152 H 05/13/25 05:33: Sodium 138, Potassium 4.3, Chloride 104, Carbon Dioxide 22.9, Anion Gap 11, BUN 27 H, Creatinine 1.02, Estim Creat Clear Calc 54.39, Est GFR (MDRD) Non-Af 57 L, BUN/Creatinine Ratio 26.1 H, Glucose 111 H, Calcium 8.9 05/13/25 06:23: POC Glucose 115 H Echo June 19 Interpretation Summary The study was technically difficult. The left ventricular ejection fraction is 45 %. Moderate mitral annular calcification. Mild (1+) mitral valve insufficiency. Mild tricuspid valve insufficiency. Right ventricular systolic pressure estimated to be 45 mmHg. Clinical Impression(s) from Imaging Studies Foot X-Ray 05/10/25 15:20 IMPRESSION: Profound osteopenia, no demonstrated fracture, please see discussion above Polyarticular arthrosis Calcaneal spurs Soft tissue swelling Charges/Coding Visit Charges Inpatient E&M: 94264 Subs Hosp L2 05/13/25 1154 Cosigner Signature (if applicable): CC: ~ Signed [facility]08-17-2025 Progress note [facility] Medical Records Department [address] [place] [address] Progress Note 05/13/25 1105 MR#: [id number] Acct: [id number] Name: EDUAR CABRERA Rep #:[id number] : 1950 75 From: Luis Bhardwaj DPM PCP: Dr. Corby Heller MD Status:ADM I N Location: [place] [address] Subjective Subjective Patient was seen today for follow up on left 5th toe. She is resting in chair, no new complaints. No f/c/n/v. She denies pain. Objective Data Objective Data Vital Signs: Vital Signs Temp Pulse Resp BP Pulse Ox O2 Del Method O2 Flow Rate 98.8 F 81 16 131/61 H 95 Room Air 2 05/13/25 08:11 05/13/25 09:27 05/13/25 09:27 05/13/25 08:11 05/13/25 08:11 05/13/25 08:25 05/12/25 22:05 Oxygen Flow Rate (L/min) 2 Oxygen Delivery Method Room Air Weight: 115.3 kg Body Mass Index (BMI) 49.6 Intake & Output: Intake and Output for Last 24 Hours 05/11/25 05/12/25 05/13/25 23:59 23:59 23:59 Intake Total 1212.50 / 1412.50 912.5 / 912.5 100 / 100 Output Total 400 / 650 950 / 950 1500 / 1500 Balance 812.50 / 762.50 -37.5 / -37.5 -1400 / -1400 Lab / Micro Data 05/12/25 04:51 05/13/25 05:33 Labs: Laboratory Results - last 24 hr 05/12/25 12:14: POC Glucose 149 H 05/12/25 16:28: POC Glucose 128 H 05/12/25 19:47: POC Glucose 130 H 05/12/25 21:53: POC Glucose 152 H 05/13/25 05:33: Sodium 138, Potassium 4.3, Chloride 104, Carbon Dioxide 22.9, Anion Gap 11, BUN 27 H, Creatinine 1.02, Estim Creat Clear Calc 54.39, Est GFR (MDRD) Non-Af 57 L, BUN/Creatinine Ratio 26.1 H, Glucose 111 H, Calcium 8.9 05/13/25 06:23: POC Glucose 115 H Micro: Microbiology 05/11/25 09:30 Wound - Left Foot Gram Stain - Final 05/11/25 09:30 Wound - Left Foot Wound Culture - Preliminary Gram positive yesica Gram Positive Cocci Physical Exam Const alert, oriented x3 and no apparent distress Constitutional Narrative: Left 5th toe with ulceration plantar sulcus down to flexor tendon, no probe to bone, tissues remainhealthy, viable and granular, there is no drainage and no maloder at this time, there is no visibleabscess, no fluctuance, no crepitus, no necrosis, there is significantly less erythema to the left 5th toe/forefoot, no other open lesions bilateral foot. There is minimal to no pain to ulcer left 5th toe, otherwise no pain. No evidence of acute ischemia left foot or to the toes, CFT < 2 secondsto all toes on left foot. Assessment & Plan Assessment/Plan (1) Type 2 diabetes mellitus with foot ulcer: (2) Cellulitis of left lower limb: (3) Ulcer of left foot with muscle involvement without evidence of necrosis: PLAN: Plan Evaluation performed. Reviewed diagnostic data. There is an ulceration sub left 5th toe at area of the sulcus. No debridement needed at this time. Improving. MRI was reviewed and findings c/w osteomyelitis to left 5th toe - discussed withpatient - discussednonsurgical vs surgical options. Surgery would entail left 5th toe amputation while nonsurgical would be local wound care and antibiotic therapy. She relates she would like to try to continue to savethe toe. There has been significant improvement since Wednesday. A culture was obtained of the ulceration. Reviewed gram positive cocci and yesica. Patient is on Doxy and Unasyn, Infectious Disease on consult. Noninvasive lower extremity arterial studies ordered - there is no evidence of acute ischemia to foot bilateral. Wound care left 5th toe: Betadine soln topically and gauze dressing BID. No weightbearing to toes left foot. Ordered surgical shoe. She requested a surgicalshoe for right foot as well to keep things balanced. Podiatry will continue to follow. 05/13/25 1127 Luis Bhardwaj DPM Cosigner Signature (if applicable): CC: ~ Signed [facility]08-16-2025 Progress note Author Hari Miranda [facility] Note Date/Time May 12, 2025 3: 02pm [facility] Medical Records Department [address] [place] [address] Progress Note - Hospitalist 05/12/25 1456 MR#: [id number] Acct: [id number] Name: EDUAR CABRERA Rep #:[id number] : 1950 75 From: Hari Whelan PCP: Dr. Corby Heller MD Status:ADM I N Location: [place] [address] Reason for Visit Chief Complaint: Left toe pain and swelling Objective Data Objective Data Vital Signs: Vital Signs Temp Pulse Resp BP Pulse Ox O2 Del Method O2 Flow Rate 98.3 F 73 20 H 135/54 H 94 Room Air 1 05/12/25 08:59 05/12/25 08:59 05/12/25 08:59 05/12/25 08:59 05/12/25 08:59 05/12/25 08:59 05/11/25 10:00 Oxygen Flow Rate (L/min) 1 Oxygen Delivery Method Room Air Weight: 254 lb 3.088 oz Body Mass Index (BMI) 49.6 Intake & Output: Intake and Output for Last 24 Hours 05/10/25 05/11/25 05/12/25 23:59 23:59 23:59 Intake Total 640.00 / 640.00 1212.50 / 1412.50 500 / 500 Output Total 150 / 150 400 / 650 550 / 550 Balance 490.00 / 490.00 812.50 / 762.50 -50 / -50 Lab / Micro Data 05/12/25 04:51 05/12/25 04:51 Labs: Laboratory Results - last 24 hr 05/11/25 17:21: POC Glucose 114 H 05/11/25 21:16: POC Glucose 135 H 05/12/25 04:51: WBC 8.2, RBC 2.90 L, Hgb 8.8 L, Hct 27.3 L, MCV 94.1, MCH 30.3, MCHC 32.2, RDW Std Deviation 51.3 H, RDW Coeff of Cecil 14.7 H, Plt Count 173, MPV9.6, Immature Gran % (Auto) 1.000 H, Neut % (Auto) 56.2, Lymph % (Auto) 17.4 L, Darke % (Auto) 7.6, Eos % (Auto) 17.1 H, Baso % (Auto) 0.7, Absolute Neuts (auto)4.6, Absolute Lymphs (auto) 1.42, Nucleated RBC % 0, Sodium 136, Potassium 3.9, Chloride 103, Carbon Dioxide 21.6, Anion Gap 11, BUN 31 H, Creatinine 1.10, Estim Creat Clear Calc 50.43, Est GFR (MDRD) Non-Af 52 L,BUN/Creatinine Ratio 28.1 H, Glucose 108 H, Calcium 8.6 05/12/25 06:26: POC Glucose 104 05/12/25 12:14: POC Glucose 149 H Micro: Microbiology 05/11/25 09:30 Wound - Left Foot Gram Stain - Final 05/11/25 09:30 Wound - Left Foot Wound Culture - Preliminary Gram positive organism Radiography Diagnostic Testing: Radiology Impression Echocardiogram 05/10/25 20:40 Interpretation Summary Normal LV size. Normal left ventricular thickness. Contrast was utilized demonstrating no segmental wall motion abnormalities and unable to assess diastolic function due to mitral annular calcification The right ventricle is normal in size, function, and thickness. Diffuse mitral valve thickening with moderate mitral annular calcifications but only mild regurgitation There is evidence of mild mitral valve stenosis with a mean gradient of 4 mmHg peak gradient 11 mmHg at a heart rate regular and 80 bpm Cannot fully determine the trileaflet structure of the aortic valve but no definitive stenosis noted Cannot assess right-sided pressures accurately, however IVC is mildly dilated with normal collapsibility Ordering Physician: Holly Lopez Referring Physician: Corby Heller Chi Performed By: Rose Marie Greenwood, RDCS, RVT Lower Extremity MRI 05/11/25 20:40 IMPRESSION: Findings are suggestive of little toe cellulitis with overlying small soft tissue defects/ulcers, related cortical irregularities of its distal phalanx with marrow edema of its phalanges suggesting osteomyelitis. Focal subcutaneous soft tissue thickening of the planter aspect of the little toe metatarsophalangeal joint, possibly adventitial bursitis. Diffuse extensive subcutaneous soft tissue edema of the foot most evident along its dorsolateral aspect with no obvious marginally enhancing abscesses formation. Diffuse atrophic changes of the examine foot muscles. Degenerative arthropathic changes of the inter-tarsal and to less extent tarsometatarsal articulations. Mild Degenerative arthropathic changes of the big and little toes metatarsophalangeal. Mild metatarsophalangeal, tarsometatarsal and intertarsal joints effusion. Reading Location: [place] [address] Physical Exam Narrative Seen and examined with the canvas cutter hand Dr. Bhardwaj Patient stated she does not like poking her finger therefore does not Glucocheckand wants continuous glucose monitoring device and is talked to her PCP Dr. Hellerfor that. Left fifth toe has medial side erythema and a small ulcer. Physical exam General: Alert, Oriented x3, Cooperative. BMI 49.6 kg/m?, morbid obesity HEENT: Atraumatic, PERRLA, EOMI, Normocephalic. Oral: Oral mucosa moist. No Gingival or Mucosal Lesions/ Ulcerations Neck: Supple, No JVD, Negative Carotid Bruits Chest wall/Lungs: Air entry diminished in bilateral lung bases. No crepitation/rhonchi Cardiovascular: Regular rate and rhythm, Normal S1,S2, No M/G/R Abdomen: Bowel Sounds Present, Soft, Non Tender, Non-Distended : No dysuria. No renal angle tenderness. No suprapubic tenderness. Extremities: No edema, Capillary Refill Less than 3 Seconds Skin: Small ulcer with visible tiny possible tendon but no bone felt on the medial side of left fifth toe. Musculoskeletal: No Tenderness to Palpation of Joints or Extremities Neurological: Cranial nerves II-XII grossly intact, DTR 2+/4. No acute focal neurological deficit. Psych/Mental Status: Normal Affect, Appropriate. Assessment & Plan Assessment/Plan (1) Diabetic foot infection: PLAN: Plan 75-year-old female admitted with left fifth toe pain with radiation towards the ankle for several weeks. Redness, swelling on left lateral foot for past 2 days. History with complicated DM type II with neuropathy. Follows with Dr. Geiger. # Cellulitis of foot in diabetic patient -Elevated ESR, CRP -X-ray of foot only showed soft tissue swelling. MRI is pending. ? Initially started on IV vancomycin and Zosyn. Had rash with Vanco in ED. Vancomycin narrowed down to doxycycline. ID Zosyn narrowed to Unasyn. Was seen and examined with canvas cutter hand. Further plan after MRI. Culture was taken and sent. 05/12: MRI shows cortical irregularity of distal phalanx of left fifth toe with marrow edema suggesting osteomyelitis. Little toe cellulitis with soft tissue ulcer. Subcutaneous soft tissue thickening. This was discussed with Dr. Bhardwaj and he said this is very mild and patient is okay with treatment with IVantibiotics only. Will wait for the culture and then narrow the antibiotic probably on Wednesday with opinion from ID [facility] consultant. # Intermittent tachycardia -Patient has intermittently had heart rates up to 140s/150?s with narrow complextachycardia that would start and stop quickly, suspected to be slow SVT. EKG right after episode with sinus rhythm with first-degree AV block. Patient asymptomatic during those events -Monitor on telemetry -Echocardiogram Accu-Chek before meals and at bedtime with Humalog sliding scale coverage and hypoglycemia protocol. May 2023 shows EF 45%, mild MR mild TR, RVSP 45 emergency. -TSH 2.81. Heart rate 76/min. Echo is ordered - If further episodes or persistent may need to start beta-rivera or consider cardiology consult 05/12: Tachycardia has resolved. #Type 2 diabetes mellitus complicated with diabetic neuropathy -Glucose checks and sliding scale insulin - A1c 6.6%. Glucose is reasonably controlled less than 150 mg/dL. 05/12: Glucoses controlled. #Hypothyroidism -Continue Synthroid #SUSAN -Continue home NIPPV if applicable #Depression/anxiety -Continue home medications # Restless leg syndrome -continue patient's home medication regimen # History of asthma - Budesonide inhaler as needed #Morbid obesity -BMI documented as 48 kg/m? at time of admission -Complicates treatment, prognosis, outcomes -Recommend weight loss and lifestyle changes #DVT ppx: Lovenox 40 mg SQ twice daily Microbiology Past 72 Hours 05/11/25 09:30 Wound - Left Foot Gram Stain - Final Laboratory Results 05/10/25 14:55: WBC 11.6 H, RBC 3.58 L, Hgb 10.9 L, Hct 33.8 L, MCV 94.4, MCH 30.4, MCHC 32.2, RDW Std Deviation 52.8 H, RDW Coeff of Cecil 15.2 H, Plt Count 210, MPV 10.2, Immature Gran % (Auto) 0.800, Neut % (Auto) 68.1, Lymph % (Auto) 17.4 L, Darke % (Auto) 6.7, Eos % (Auto) 6.7 H, Baso % (Auto) 0.3, Absolute Neuts(auto) 7.9 H, Absolute Lymphs (auto) 2.02, Nucleated RBC % 0, Differential Comment SCANNED, Platelet Estimate ADEQUATE, ESR 37 H, Sodium 138, Potassium 3.9, Chloride 101, Carbon Dioxide 23.5, Anion Gap 14, BUN 30 H, Creatinine 1.01,Estim Creat Clear Calc 58.10, Est GFR (MDRD) Non-Af 58 L, BUN/Creatinine Ratio 29.8 H, Glucose 152 H, Lactic Acid 1.7, Calcium 9.6, C-React Prot Ext Range 85.00 H, TSH 2.810 05/10/25 22:06: POC Glucose 170 H 05/11/25 06:28: WBC 11.0, RBC 2.96 L, Hgb 8.9 L, Hct 27.8 L, MCV 93.9, MCH 30.1,MCHC 32.0, RDW Std Deviation 52.9 H, RDW Coeff of Cecil 15.1 H, Plt Count 192, MPV9.7, Immature Gran % (Auto) 0.800, Neut % (Auto) 68.5, Lymph % (Auto) 14.5 L, Darke % (Auto) 6.9, Eos % (Auto) 8.9 H, Baso % (Auto) 0.4, Absolute Neuts (auto) 7.5, Absolute Lymphs (auto) 1.59, Nucleated RBC % 0, ESR 26, Sodium 137, Potassium 4.3, Chloride 105, Carbon Dioxide 21.2, Anion Gap 11, BUN 31 H, Creatinine 1.14, Estim Creat Clear Calc 48.66 L, Est GFR (MDRD) Non-Af 50 L, BUN/Creatinine Ratio 27.5 H, Glucose 113 H, Hemoglobin A1c 6.6 H, Uric Acid 7.9 H, Calcium 8.6, C-React Prot Ext Range 98.10 H 05/11/25 06:36: POC Glucose 113 H 05/11/25 11:25: POC Glucose 148 H Echo June 19 Interpretation Summary The study was technically difficult. The left ventricular ejection fraction is 45 %. Moderate mitral annular calcification. Mild (1+) mitral valve insufficiency. Mild tricuspid valve insufficiency. Right ventricular systolic pressure estimated to be 45 mmHg. Clinical Impression(s) from Imaging Studies Foot X-Ray 05/10/25 15:20 IMPRESSION: Profound osteopenia, no demonstrated fracture, please see discussion above Polyarticular arthrosis Calcaneal spurs Soft tissue swelling Charges/Coding Visit Charges Inpatient E&M: 71330 Subs Hosp L2 05/12/25 1502 <Electronically signed by Hari Miranda MD> Cosigner Signature (if applicable): CC: ~ Signed [facility] Work Phone: [phone]) 451-680908-16-2025 Progress note [facility] Medical Records Department [address] [place] [address] Progress Note - Hospitalist 05/12/25 1456 MR#: [id number] Acct: [id number] Name: EDUAR CABRERA Rep #:[id number] : 1950 75 From: Hari Whelan PCP: Dr. Corby Heller MD Status:ADM I N Location: [place] [address] Reason for Visit Chief Complaint: Left toe pain and swelling Objective Data Objective Data Vital Signs: Vital Signs Temp Pulse Resp BP Pulse Ox O2 Del Method O2 Flow Rate 98.3 F 73 20 H 135/54 H 94 Room Air 1 05/12/25 08:59 05/12/25 08:59 05/12/25 08:59 05/12/25 08:59 05/12/25 08:59 05/12/25 08:59 05/11/25 10:00 Oxygen Flow Rate (L/min) 1 Oxygen Delivery Method Room Air Weight: 254 lb 3.088 oz Body Mass Index (BMI) 49.6 Intake & Output: Intake and Output for Last 24 Hours 05/10/25 05/11/25 05/12/25 23:59 23:59 23:59 Intake Total 640.00 / 640.00 1212.50 / 1412.50 500 / 500 Output Total 150 / 150 400 / 650 550 / 550 Balance 490.00 / 490.00 812.50 / 762.50 -50 / -50 Lab / Micro Data 05/12/25 04:51 05/12/25 04:51 Labs: Laboratory Results - last 24 hr 05/11/25 17:21: POC Glucose 114 H 05/11/25 21:16: POC Glucose 135 H 05/12/25 04:51: WBC 8.2, RBC 2.90 L, Hgb 8.8 L, Hct 27.3 L, MCV 94.1, MCH 30.3, MCHC 32.2, RDW Std Deviation 51.3 H, RDW Coeff of Cecil 14.7 H, Plt Count 173, MPV9.6, Immature Gran % (Auto) 1.000 H, Neut % (Auto) 56.2, Lymph % (Auto) 17.4 L, Darke % (Auto) 7.6, Eos % (Auto) 17.1 H, Baso % (Auto) 0.7, Absolute Neuts (auto)4.6, Absolute Lymphs (auto) 1.42, Nucleated RBC % 0, Sodium 136, Potassium 3.9, Chloride 103, Carbon Dioxide 21.6, Anion Gap 11, BUN 31 H, Creatinine 1.10, Estim Creat Clear Calc 50.43, Est GFR (MDRD) Non-Af 52 L,BUN/Creatinine Ratio 28.1 H, Glucose 108 H, Calcium 8.6 05/12/25 06:26: POC Glucose 104 05/12/25 12:14: POC Glucose 149 H Micro: Microbiology 05/11/25 09:30 Wound - Left Foot Gram Stain - Final 05/11/25 09:30 Wound - Left Foot Wound Culture - Preliminary Gram positive organism Radiography Diagnostic Testing: Radiology Impression Echocardiogram 05/10/25 20:40 Interpretation Summary Normal LV size. Normal left ventricular thickness. Contrast was utilized demonstrating no segmental wall motion abnormalities and unable to assess diastolic function due to mitral annular calcification The right ventricle is normal in size, function, and thickness. Diffuse mitral valve thickening with moderate mitral annular calcifications but only mild regurgitation There is evidence of mild mitral valve stenosis with a mean gradient of 4 mmHg peak gradient 11 mmHg at a heart rate regular and 80 bpm Cannot fully determine the trileaflet structure of the aortic valve but no definitive stenosis noted Cannot assess right-sided pressures accurately, however IVC is mildly dilated with normal collapsibility Ordering Physician: Holly Lopez Referring Physician: Corby Heller Chi Performed By: Rose Marie Greenwood RDCS, RVT Lower Extremity MRI 05/11/25 20:40 IMPRESSION: Findings are suggestive of little toe cellulitis with overlying small soft tissue defects/ulcers, related cortical irregularities of its distal phalanx with marrow edema of its phalanges suggesting osteomyelitis. Focal subcutaneous soft tissue thickening of the planter aspect of the little toe metatarsophalangeal joint, possibly adventitial bursitis. Diffuse extensive subcutaneous soft tissue edema of the foot most evident along its dorsolateral aspect with no obvious marginally enhancing abscesses formation. Diffuse atrophic changes of the examine foot muscles. Degenerative arthropathic changes of the inter-tarsal and to less extent tarsometatarsal articulations. Mild Degenerative arthropathic changes of the big and little toes metatarsophalangeal. Mild metatarsophalangeal, tarsometatarsal and intertarsal joints effusion. Reading Location: [place] [address] Physical Exam Narrative Seen and examined with the canvas cutter hand Dr. Bhardwaj Patient stated she does not like poking her finger therefore does not Gluc[place] wants continuous glucose monitoring device and is talked to her PCP Dr. Hellerfor that. Left fifth toe has medial side erythema and a small ulcer. Physical exam General: Alert, Oriented x3, Cooperative. BMI 49.6 kg/m?, morbid obesity HEENT: Atraumatic, PERRLA, EOMI, Normocephalic. Oral: Oral mucosa moist. No Gingival or Mucosal Lesions/ Ulcerations Neck: Supple, No JVD, Negative Carotid Bruits Chest wall/Lungs: Air entry diminished in bilateral lung bases. No crepitation/rhonchi Cardiovascular: Regular rate and rhythm, Normal S1,S2, No M/G/R Abdomen: Bowel Sounds Present, Soft, Non Tender, Non-Distended : No dysuria. No renal angle tenderness. No suprapubic tenderness. Extremities: No edema, Capillary Refill Less than 3 Seconds Skin: Small ulcer with visible tiny possible tendon but no bone felt on the medial side of left fifth toe. Musculoskeletal: No Tenderness to Palpation of Joints or Extremities Neurological: Cranial nerves II-XII grossly intact, DTR 2+/4. No acute focal neurological deficit. Psych/Mental Status: Normal Affect, Appropriate. Assessment & Plan Assessment/Plan (1) Diabetic foot infection: PLAN: Plan 75-year-old female admitted with left fifth toe pain with radiation towards the ankle for several weeks. Redness, swelling on left lateral foot for past 2 days. History with complicated DM type II with neuropathy. Follows with Dr. Geiger. # Cellulitis of foot in diabetic patient -Elevated ESR, CRP -X-ray of foot only showed soft tissue swelling. MRI is pending. ? Initially started on IV vancomycin and Zosyn. Had rash with Vanco in ED. Vancomycin narrowed downto doxycycline. ID Zosyn narrowed to Unasyn. Was seen and examined with canvas cutter hand. Further plan after MRI. Culture was taken and sent. 05/12: MRI shows cortical irregularity of distal phalanx of left fifth toe with marrow edema suggesting osteomyelitis. Little toe cellulitis with soft tissue ulcer. Subcutaneous soft tissue thickening. This was discussed with Dr. Bhardwaj and he said this is very mild and patient is okay with treatment with IVantibiotics only. Will wait for the culture and then narrow the antibiotic probably on Wednesday with opinion from [facility] consultant. # Intermittent tachycardia -Patient has intermittently had heart rates up to 140s/150?s with narrow complextachycardia that would start and stop quickly, suspected to be slow SVT. EKG right after episode with sinus rhythm withfirst-degree AV block. Patient asymptomatic during those events -Monitor on telemetry -Echocardiogram Accu-Chek before meals and at bedtime with Humalog sliding scale coverage and hypoglycemia protocol. May 2023 shows EF 45%, mild MR mild TR, RVSP 45 emergency. -TSH 2.81. Heart rate 76/min. Echo is ordered - If further episodes or persistent may need to start beta-rivera or consider cardiology consult 05/12: Tachycardia has resolved. #Type 2 diabetes mellitus complicated with diabetic neuropathy -Glucose checks and sliding scale insulin - A1c 6.6%. Glucose is reasonably controlled less than 150 mg/dL. 05/12: Glucoses controlled. #Hypothyroidism -Continue Synthroid #SUSAN -Continue home NIPPV if applicable #Depression/anxiety -Continue home medications # Restless leg syndrome -continue patient's home medication regimen # History of asthma - Budesonide inhaler as needed #Morbid obesity -BMI documented as 48 kg/m? at time of admission -Complicates treatment, prognosis, outcomes -Recommend weight loss and lifestyle changes #DVT ppx: Lovenox 40 mg SQ twice daily Microbiology Past 72 Hours 05/11/25 09:30 Wound - Left Foot Gram Stain - Final Laboratory Results 05/10/25 14:55: WBC 11.6 H, RBC 3.58 L, Hgb 10.9 L, Hct 33.8 L, MCV 94.4, MCH 30.4, MCHC 32.2, RDW Std Deviation 52.8 H, RDW Coeff of Cecil 15.2 H, Plt Count 210, MPV 10.2, Immature Gran % (Auto) 0.800, Neut % (Auto) 68.1, Lymph % (Auto) 17.4 L, Darke % (Auto) 6.7, Eos % (Auto) 6.7 H, Baso % (Auto) 0.3, Absolute Neuts(auto) 7.9 H, Absolute Lymphs (auto) 2.02, Nucleated RBC % 0, Differential Comment SCANNED, Platelet Estimate ADEQUATE, ESR 37 H, Sodium 138, Potassium 3.9, Chloride 101, Carbon Dioxide 23.5, Anion Gap 14, BUN 30 H, Creatinine 1.01,Estim Creat Clear Calc 58.10, Est GFR (MDRD) Non-Af58 L, BUN/Creatinine Ratio 29.8 H, Glucose 152 H, Lactic Acid 1.7, Calcium 9.6, C-React Prot Ext Ran ge 85.00 H, TSH 2.810 05/10/25 22:06: POC Glucose 170 H 05/11/25 06:28: WBC 11.0, RBC 2.96 L, Hgb 8.9 L, Hct 27.8 L, MCV 93.9, MCH 30.1,MCHC 32.0, RDW Std Deviation 52.9 H, RDW Coeff of Cecil 15.1 H, Plt Count 192, MPV9.7, Immature Gran % (Auto) 0.800, Neut% (Auto) 68.5, Lymph % (Auto) 14.5 L, Darke % (Auto) 6.9, Eos % (Auto) 8.9 H, Baso % (Auto) 0.4, Absolute Neuts (auto) 7.5, Absolute Lymphs (auto) 1.59, Nucleated RBC % 0, ESR 26, Sodium 137, Potassium 4.3, Chloride 105, Carbon Dioxide 21.2, Anion Gap 11, BUN 31 H, Creatinine 1.14, Estim Creat ClearCalc 48.66 L, Est GFR (MDRD) Non-Af 50 L, BUN/Creatinine Ratio 27.5 H, Glucose 113 H, Hemoglobin A1c 6.6 H, Uric Acid 7.9 H, Calcium 8.6, C-React Prot Ext Range 98.10 H 05/11/25 06:36: POC Glucose 113 H 05/11/25 11:25: POC Glucose 148 H Echo June 19 Interpretation Summary The study was technically difficult. The left ventricular ejection fraction is 45 %. Moderate mitral annular calcification. Mild (1+) mitral valve insufficiency. Mild tricuspid valve insufficiency. Right ventricular systolic pressure estimated to be 45 mmHg. Clinical Impression(s) from Imaging Studies Foot X-Ray 05/10/25 15:20 IMPRESSION: Profound osteopenia, no demonstrated fracture, please see discussion above Polyarticular arthrosis Calcaneal spurs Soft tissue swelling Charges/Coding Visit Charges Inpatient E&M: 74747 Subs Hosp L2 05/12/25 1502 Cosigner Signature (if applicable): CC: ~ Signed [facility]08-16-2025 Progress note Author Luis Bhardwaj [facility] Note Date/Time May 12, 2025 12 :23pm [facility] Medical Records Department [address] [place] [address] Progress Note 05/12/25 1101 MR#: [id number] Acct: [id number] Name: EDUAR CABRERA Rep #:[id number] : 1950 75 From: Luis Bhardwaj DPM PCP: Dr. Corby Heller MD Status:ADM I N Location: [place] [address] Subjective Subjective Patient was seen today for follow up on left 5th toe infection. She is resting in chair, she relates toe is feeling a lot better. She had MRI and noted to havefindings c/w osteomyelitis. She has no new complaints. No c/o f/c/n/v. Objective Data Objective Data Vital Signs: Vital Signs Temp Pulse Resp BP Pulse Ox O2 Del Method O2 Flow Rate 98.3 F 73 20 H 135/54 H 94 Room Air 1 05/12/25 08:59 05/12/25 08:59 05/12/25 08:59 05/12/25 08:59 05/12/25 08:59 05/12/25 08:59 05/11/25 10:00 Oxygen Flow Rate (L/min) 1 Oxygen Delivery Method Room Air Weight: 115.3 kg Body Mass Index (BMI) 49.6 Intake & Output: Intake and Output for Last 24 Hours 05/10/25 05/11/25 05/12/25 23:59 23:59 23:59 Intake Total 640.00 / 640.00 1212.50 / 1412.50 500 / 500 Output Total 150 / 150 400 / 650 550 / 550 Balance 490.00 / 490.00 812.50 / 762.50 -50 / -50 Lab / Micro Data 05/12/25 04:51 05/12/25 04:51 Labs: Laboratory Results - last 24 hr 05/11/25 11:25: POC Glucose 148 H 05/11/25 17:21: POC Glucose 114 H 05/11/25 21:16: POC Glucose 135 H 05/12/25 04:51: WBC 8.2, RBC 2.90 L, Hgb 8.8 L, Hct 27.3 L, MCV 94.1, MCH 30.3, MCHC 32.2, RDW Std Deviation 51.3 H, RDW Coeff of Cecil 14.7 H, Plt Count 173, MPV9.6, Immature Gran % (Auto) 1.000 H, Neut % (Auto) 56.2, Lymph % (Auto) 17.4 L, Darke % (Auto) 7.6, Eos % (Auto) 17.1 H, Baso % (Auto) 0.7, Absolute Neuts (auto)4.6, Absolute Lymphs (auto) 1.42, Nucleated RBC % 0, Sodium 136, Potassium 3.9, Chloride 103, Carbon Dioxide 21.6, Anion Gap 11, BUN 31 H, Creatinine 1.10, Estim Creat Clear Calc 50.43, Est GFR (MDRD) Non-Af 52 L, BUN/Creatinine Ratio 28.1 H, Glucose 108 H, Calcium 8.6 05/12/25 06:26: POC Glucose 104 Micro: Microbiology 05/11/25 09:30 Wound - Left Foot Gram Stain - Final 05/11/25 09:30 Wound - Left Foot Wound Culture - Preliminary Gram positive organism Radiography Diagnostic Testing: Radiology Impression Echocardiogram 05/10/25 20:40 Interpretation Summary Normal LV size. Normal left ventricular thickness. Contrast was utilized demonstrating no segmental wall motion abnormalities and unable to assess diastolic function due to mitral annular calcification The right ventricle is normal in size, function, and thickness. Diffuse mitral valve thickening with moderate mitral annular calcifications but only mild regurgitation There is evidence of mild mitral valve stenosis with a mean gradient of 4 mmHg peak gradient 11 mmHg at a heart rate regular and 80 bpm Cannot fully determine the trileaflet structure of the aortic valve but no definitive stenosis noted Cannot assess right-sided pressures accurately, however IVC is mildly dilated with normal collapsibility Ordering Physician: Holly Lopez Referring Physician: Corby Heller Chi Performed By: Rose Marie Greenwood, ESHA, RVT Lower Extremity MRI 05/11/25 20:40 IMPRESSION: Findings are suggestive of little toe cellulitis with overlying small soft tissue defects/ulcers, related cortical irregularities of its distal phalanx with marrow edema of its phalanges suggesting osteomyelitis. Focal subcutaneous soft tissue thickening of the planter aspect of the little toe metatarsophalangeal joint, possibly adventitial bursitis. Diffuse extensive subcutaneous soft tissue edema of the foot most evident along its dorsolateral aspect with no obvious marginally enhancing abscesses formation. Diffuse atrophic changes of the examine foot muscles. Degenerative arthropathic changes of the inter-tarsal and to less extent tarsometatarsal articulations. Mild Degenerative arthropathic changes of the big and little toes metatarsophalangeal. Mild metatarsophalangeal, tarsometatarsal and intertarsal joints effusion. Reading Location: [place] [address] Physical Exam Const alert, oriented x3 and no apparent distress Constitutional Narrative: Left 5th toe with ulceration plantar sulcus down to flexor tendon, no probe to bone, tissues remain healthy, viable and granular, there is no drainage and no maloder at this time, there is no visible abscess, no fluctuance, no crepitus, no necrosis, there is less erythema to the left 5th toe and receeding from dorsal forefoot, no other open lesions bilateral foot. There is minimal to no pain to left 5th toe. No evidence of acute ischemia left foot or to the toes, CFT < 2 seconds to all toes on left foot. Assessment & Plan Assessment/Plan (1) Type 2 diabetes mellitus with foot ulcer: (2) Cellulitis of left lower limb: (3) Ulcer of left foot with muscle involvement without evidence of necrosis: PLAN: Plan Evaluation performed. Reviewed diagnostic data. There is an ulceration sub left 5th toe at area of the sulcus. No debridement needed at this time. Improving. MRI was reviewed and findings c/w osteomyelitis to left 5th toe - discussed withpatient - discussed nonsurgical vs surgical options. Surgery would entail left 5th toe amputation while nonsurgical would be local wound care and antibiotic therapy. She relates she would like to try to save the toe. A culture was obtained of the ulceration. Patient is on Doxy and Unasyn, Infectious Disease on consult. Noninvasive lower extremity arterial studies ordered - there is no evidence of acute ischemia to foot bilateral. Wound care left 5th toe: Betadine soln topically and gauze dressing BID. No weightbearing to toes left foot. Ordered surgical shoe. She requested a surgicalshoe for right foot as well to keep things balanced. Podiatry will continue to follow. Discussed with Dr. Miranda. 05/12/25 1223 <Electronically signed by Luis Bhardwaj DPM> Luis Bhardwaj DPM Cosigner Signature (if applicable): CC: ~ Signed [facility] Work Phone: [phone] 209-506108-16-2025 Progress note [facility] Medical Records Department [address] [place] [address] Progress Note 05/12/25 1101 MR#: [id number] Acct: [id number] Name: EDUAR CABRERA Rep #:[id number] : 1950 75 From: Luis Bhardwaj DPM PCP: Dr. Corby Heller MD Status:ADM I N Location: [place] [address] Subjective Subjective Patient was seen today for follow up on left 5th toe infection. She is resting in chair, she relates toe is feeling a lot better. She had MRI and noted to havefindings c/w osteomyelitis. She has no new complaints. No c/o f/c/n/v. Objective Data Objective Data Vital Signs: Vital Signs Temp Pulse Resp BP Pulse Ox O2 Del Method O2 Flow Rate 98.3 F 73 20 H 135/54 H 94 Room Air 1 05/12/25 08:59 05/12/25 08:59 05/12/25 08:59 05/12/25 08:59 05/12/25 08:59 05/12/25 08:59 05/11/25 10:00 Oxygen Flow Rate (L/min) 1 Oxygen Delivery Method Room Air Weight: 115.3 kg Body Mass Index (BMI) 49.6 Intake & Output: Intake and Output for Last 24 Hours 05/10/25 05/11/25 05/12/25 23:59 23:59 23:59 Intake Total 640.00 / 640.00 1212.50 / 1412.50 500 / 500 Output Total 150 / 150 400 / 650 550 / 550 Balance 490.00 / 490.00 812.50 / 762.50 -50 / -50 Lab / Micro Data 05/12/25 04:51 05/12/25 04:51 Labs: Laboratory Results - last 24 hr 05/11/25 11:25: POC Glucose 148 H 05/11/25 17:21: POC Glucose 114 H 05/11/25 21:16: POC Glucose 135 H 05/12/25 04:51: WBC 8.2, RBC 2.90 L, Hgb 8.8 L, Hct 27.3 L, MCV 94.1, MCH 30.3, MCHC 32.2, RDW Std Deviation 51.3 H, RDW Coeff of Cecil 14.7 H, Plt Count 173, MPV9.6, Immature Gran % (Auto) 1.000 H, Neut % (Auto) 56.2, Lymph % (Auto) 17.4 L, Darke % (Auto) 7.6, Eos % (Auto) 17.1 H, Baso % (Auto) 0.7, Absolute Neuts (auto)4.6, Absolute Lymphs (auto) 1.42, Nucleated RBC % 0, Sodium 136, Potassium 3.9,Chloride 103, Carbon Dioxide 21.6, Anion Gap 11, BUN 31 H, Creatinine 1.10, Estim Creat Clear Calc 50.43, Est GFR (MDRD) Non-Af 52 L, BUN/Creatinine Ratio 28.1 H, Glucose 108 H, Calcium 8.6 05/12/25 06:26: POC Glucose 104 Micro: Microbiology 05/11/25 09:30 Wound - Left Foot Gram Stain - Final 05/11/25 09:30 Wound - Left Foot Wound Culture - Preliminary Gram positive organism Radiography Diagnostic Testing: Radiology Impression Echocardiogram 05/10/25 20:40 Interpretation Summary Normal LV size. Normal left ventricular thickness. Contrast was utilized demonstrating no segmental wall motion abnormalities and unable to assess diastolic function due to mitral annular calcification The right ventricle is normal in size, function, and thickness. Diffuse mitral valve thickening with moderate mitral annular calcifications but only mild regurgitation There is evidence of mild mitral valve stenosis with a mean gradient of 4 mmHg peak gradient 11 mmHg at a heart rate regular and 80 bpm Cannot fully determine the trileaflet structure of the aortic valve but no definitive stenosis noted Cannot assess right-sided pressures accurately, however IVC is mildly dilated with normal collapsibility Ordering Physician: Holly Lopez Referring Physician: Coryb Heller Chi Performed By: Rose Marie Greenwood RDCS, RVT Lower Extremity MRI 05/11/25 20:40 IMPRESSION: Findings are suggestive of little toe cellulitis with overlying small soft tissue defects/ulcers, related cortical irregularities of its distal phalanx with marrow edema of its phalanges suggesting osteomyelitis. Focal subcutaneous soft tissue thickening of the planter aspect of the little toe metatarsophalangeal joint, possibly adventitial bursitis. Diffuse extensive subcutaneous soft tissue edema of the foot most evident along its dorsolateral aspect with no obvious marginally enhancing abscesses formation. Diffuse atrophic changes of the examine foot muscles. Degenerative arthropathic changes of the inter-tarsal and to less extent tarsometatarsal articulations. Mild Degenerative arthropathic changes of the big and little toes metatarsophalangeal. Mild metatarsophalangeal, tarsometatarsal and intertarsal joints effusion. Reading Location: [place] [address] Physical Exam Const alert, oriented x3 and no apparent distress Constitutional Narrative: Left 5th toe with ulceration plantar sulcus down to flexor tendon, no probe to bone, tissues remainhealthy, viable and granular, there is no drainage and no maloder at this time, there is no visibleabscess, no fluctuance, no crepitus, no necrosis, there is less erythema to the left 5th toe and receeding from dorsal forefoot, no other open lesions bilateral foot. There is minimal to no pain to left 5th toe. No evidence of acute ischemia left foot or to the toes, CFT < 2 seconds to all toes on left foot. Assessment & Plan Assessment/Plan (1) Type 2 diabetes mellitus with foot ulcer: (2) Cellulitis of left lower limb: (3) Ulcer of left foot with muscle involvement without evidence of necrosis: PLAN: Plan Evaluation performed. Reviewed diagnostic data. There is an ulceration sub left 5th toe at area of the sulcus. No debridement needed at this time. Improving. MRI was reviewed and findings c/w osteomyelitis to left 5th toe - discussed withpatient - discussednonsurgical vs surgical options. Surgery would entail left 5th toe amputation while nonsurgical would be local wound care and antibiotic therapy. She relates she would like to try to save the toe. A culture was obtained of the ulceration. Patient is on Doxy and Unasyn, Infectious Disease on consult. Noninvasive lower extremity arterial studies ordered - there is no evidence of acute ischemia to foot bilateral. Wound care left 5th toe: Betadine soln topically and gauze dressing BID. No weightbearing to toes left foot. Ordered surgical shoe. She requested a surgicalshoe for right foot as well to keep things balanced. Podiatry will continue to follow. Discussed with Dr. Miranda. 05/12/25 1223 Luis Bhardwaj DPM Cosigner Signature (if applicable): CC: ~ Signed [facility]08-15-2025 Progress note Author Hari Miranda [facility] Note Date/Time May 11, 2025 3: 54pm [facility] Medical Records Department [address] [place] [address] Progress Note - Hospitalist 05/11/25 0758 MR#: [id number] Acct: [id number] Name: EDUAR CABRERA Rep #:[id number] : 1950 75 From: Hari Whelan PCP: Dr. Corby Heller MD Status:ADM I N Location: [place] [address] Reason for Visit Chief Complaint: Left toe pain and swelling Objective Data Objective Data Vital Signs: Vital Signs Temp Pulse Resp BP Pulse Ox O2 Del Method O2 Flow Rate 97.2 F L 91 20 H 100/58 L 95 Nasal Cannula 2 05/11/25 03:39 05/11/25 03:39 05/11/25 03:39 05/11/25 03:39 05/11/25 03:39 05/11/25 04:05 05/11/25 04:05 Oxygen Flow Rate (L/min) 2 Oxygen Delivery Method Nasal Cannula Weight: 254 lb 3.088 oz Body Mass Index (BMI) 49.6 Intake & Output: Intake and Output for Last 24 Hours 05/09/25 05/10/25 05/11/25 23:59 23:59 23:59 Intake Total 640.00 / 640.00 50 / 50 Output Total 150 / 150 200 / 200 Balance 490.00 / 490.00 -150 / -150 Lab / Micro Data 05/11/25 06:28 05/11/25 06:28 Labs: Laboratory Results - last 24 hr 05/10/25 14:55: WBC 11.6 H, RBC 3.58 L, Hgb 10.9 L, Hct 33.8 L, MCV 94.4, MCH 30.4, MCHC 32.2, RDW Std Deviation 52.8 H, RDW Coeff of Cecil 15.2 H, Plt Count 210, MPV 10.2, Immature Gran % (Auto) 0.800, Neut % (Auto) 68.1, Lymph % (Auto) 17.4 L, Darke % (Auto) 6.7, Eos % (Auto) 6.7 H, Baso % (Auto) 0.3, Absolute Neuts(auto) 7.9 H, Absolute Lymphs (auto) 2.02, Nucleated RBC % 0, Differential Comment SCANNED, Platelet Estimate ADEQUATE, ESR 37 H, Sodium 138, Potassium 3.9, Chloride 101, Carbon Dioxide 23.5, Anion Gap 14, BUN 30 H, Creatinine 1.01,Estim Creat Clear Calc 58.10, Est GFR (MDRD) Non-Af 58 L, BUN/Creatinine Ratio 29.8 H, Glucose 152 H, Lactic Acid 1.7, Calcium 9.6, C-React Prot Ext Range 85.00 H, TSH 2.810 05/10/25 22:06: POC Glucose 170 H 05/11/25 06:28: WBC 11.0, RBC 2.96 L, Hgb 8.9 L, Hct 27.8 L, MCV 93.9, MCH 30.1,MCHC 32.0, RDW Std Deviation 52.9 H, RDW Coeff of Cecil 15.1 H, Plt Count 192, MPV9.7, Immature Gran % (Auto) 0.800, Neut % (Auto) 68.5, Lymph % (Auto) 14.5 L, Darke % (Auto) 6.9, Eos % (Auto) 8.9 H, Baso % (Auto) 0.4, Absolute Neuts (auto) 7.5, Absolute Lymphs (auto) 1.59, Nucleated RBC % 0, ESR 26 05/11/25 06:36: POC Glucose 113 H Radiography Diagnostic Testing: Radiology Impression Foot X-Ray 05/10/25 15:20 IMPRESSION: Profound osteopenia, no demonstrated fracture, please see discussion above Polyarticular arthrosis Calcaneal spurs Soft tissue swelling Reading Location: [facility] Physical Exam Narrative Seen and examined with the canvas cutter hand Dr. Bhardwaj Patient stated she does not like poking her finger therefore does not [place] wants continuous glucose monitoring device and is talked to her PCP Dr. Hellerfor that. Left fifth toe has medial side erythema and a small ulcer. Physical exam General: Alert, Oriented x3, Cooperative. BMI 49.6 kg/m?, morbid obesity HEENT: Atraumatic, PERRLA, EOMI, Normocephalic. Oral: Oral mucosa moist. No Gingival or Mucosal Lesions/ Ulcerations Neck: Supple, No JVD, Negative Carotid Bruits Chest wall/Lungs: Air entry diminished in bilateral lung bases. No crepitation/rhonchi Cardiovascular: Regular rate and rhythm, Normal S1,S2, No M/G/R Abdomen: Bowel Sounds Present, Soft, Non Tender, Non-Distended : No dysuria. No renal angle tenderness. No suprapubic tenderness. Extremities: No edema, Capillary Refill Less than 3 Seconds Skin: Small ulcer with visible tiny possible tendon but no bone felt on the medial side of left fifth toe. Musculoskeletal: No Tenderness to Palpation of Joints or Extremities Neurological: Cranial nerves II-XII grossly intact, DTR 2+/4. No acute focal neurological deficit. Psych/Mental Status: Normal Affect, Appropriate. Assessment & Plan Assessment/Plan (1) Diabetic foot infection: PLAN: Plan 75-year-old female admitted with left fifth toe pain with radiation towards the ankle for several weeks. Redness, swelling on left lateral foot for past 2 days. History with complicated DM type II with neuropathy. Follows with Dr. Geiger. # Cellulitis of foot in diabetic patient -Elevated ESR, CRP -X-ray of foot only showed soft tissue swelling. MRI is pending. ? Initially started on IV vancomycin and Zosyn. Had rash with Vanco in ED. Vancomycin narrowed down to doxycycline. ID Zosyn narrowed to Unasyn. Was seen and examined with canvas cutter hand. Further plan after MRI. Culture was taken and sent. # Intermittent tachycardia -Patient has intermittently had heart rates up to 140s/150?s with narrow complextachycardia that would start and stop quickly, suspected to be slow SVT. EKG right after episode with sinus rhythm with first-degree AV block. Patient asymptomatic during those events -Monitor on telemetry -Echocardiogram Accu-Chek before meals and at bedtime with Humalog sliding scale coverage and hypoglycemia protocol. May 2023 shows EF 45%, mild MR mild TR, RVSP 45 emergency. -TSH 2.81. Heart rate 76/min. Echo is ordered - If further episodes or persistent may need to start beta-rivera or consider cardiology consult #Type 2 diabetes mellitus complicated with diabetic neuropathy -Glucose checks and sliding scale insulin - A1c 6.6%. Glucose is reasonably controlled less than 150 mg/dL. #Hypothyroidism -Continue Synthroid #SUSAN -Continue home NIPPV if applicable #Depression/anxiety -Continue home medications # Restless leg syndrome -continue patient's home medication regimen # History of asthma - Budesonide inhaler as needed #Morbid obesity -BMI documented as 48 kg/m? at time of admission -Complicates treatment, prognosis, outcomes -Recommend weight loss and lifestyle changes #DVT ppx: Lovenox 40 mg SQ twice daily Microbiology Past 72 Hours 05/11/25 09:30 Wound - Left Foot Gram Stain - Final Laboratory Results 05/10/25 14:55: WBC 11.6 H, RBC 3.58 L, Hgb 10.9 L, Hct 33.8 L, MCV 94.4, MCH 30.4, MCHC 32.2, RDW Std Deviation 52.8 H, RDW Coeff of Cecil 15.2 H, Plt Count 210, MPV 10.2, Immature Gran % (Auto) 0.800, Neut % (Auto) 68.1, Lymph % (Auto) 17.4 L, Darke % (Auto) 6.7, Eos % (Auto) 6.7 H, Baso % (Auto) 0.3, Absolute Neuts(auto) 7.9 H, Absolute Lymphs (auto) 2.02, Nucleated RBC % 0, Differential Comment SCANNED, Platelet Estimate ADEQUATE, ESR 37 H, Sodium 138, Potassium 3.9, Chloride 101, Carbon Dioxide 23.5, Anion Gap 14, BUN 30 H, Creatinine 1.01,Estim Creat Clear Calc 58.10, Est GFR (MDRD) Non-Af 58 L, BUN/Creatinine Ratio 29.8 H, Glucose 152 H, Lactic Acid 1.7, Calcium 9.6, C-React Prot Ext Range 85.00 H, TSH 2.810 05/10/25 22:06: POC Glucose 170 H 05/11/25 06:28: WBC 11.0, RBC 2.96 L, Hgb 8.9 L, Hct 27.8 L, MCV 93.9, MCH 30.1,MCHC 32.0, RDW Std Deviation 52.9 H, RDW Coeff of Cecil 15.1 H, Plt Count 192, MPV9.7, Immature Gran % (Auto) 0.800, Neut % (Auto) 68.5, Lymph % (Auto) 14.5 L, Darke % (Auto) 6.9, Eos % (Auto) 8.9 H, Baso % (Auto) 0.4, Absolute Neuts (auto) 7.5, Absolute Lymphs (auto) 1.59, Nucleated RBC % 0, ESR 26, Sodium 137, Potassium 4.3, Chloride 105, Carbon Dioxide 21.2, Anion Gap 11, BUN 31 H, Creatinine 1.14, Estim Creat Clear Calc 48.66 L, Est GFR (MDRD) Non-Af 50 L, BUN/Creatinine Ratio 27.5 H, Glucose 113 H, Hemoglobin A1c 6.6 H, Uric Acid 7.9 H, Calcium 8.6, C-React Prot Ext Range 98.10 H 05/11/25 06:36: POC Glucose 113 H 05/11/25 11:25: POC Glucose 148 H June 19 Interpretation Summary The study was technically difficult. The left ventricular ejection fraction is 45 %. Moderate mitral annular calcification. Mild (1+) mitral valve insufficiency. Mild tricuspid valve insufficiency. Right ventricular systolic pressure estimated to be 45 mmHg. Clinical Impression(s) from Imaging Studies Foot X-Ray 05/10/25 15:20 IMPRESSION: Profound osteopenia, no demonstrated fracture, please see discussion above Polyarticular arthrosis Calcaneal spurs Soft tissue swelling Charges/Coding Visit Charges Inpatient E&M: 09674 Subs Hosp L2 05/11/25 1554 <Electronically signed by Hari Miranda MD> Cosigner Signature (if applicable): CC: ~ Signed [facility] Work Phone: [phone]) 504-719908-15-2025 Progress note [facility] Medical Records Department [address] [place] [address] Progress Note - Hospitalist 05/11/25 0758 MR#: [id number] Acct: [id number] Name: EDUAR CABRERA Rep #:[id number] : 1950 75 From: Hari Whelan PCP: Dr. Corby Heller MD Status:ADM I N Location: [place] [address] Reason for Visit Chief Complaint: Left toe pain and swelling Objective Data Objective Data Vital Signs: Vital Signs Temp Pulse Resp BP Pulse Ox O2 Del Method O2 Flow Rate 97.2 F L 91 20 H 100/58 L 95 Nasal Cannula 2 05/11/25 03:39 05/11/25 03:39 05/11/25 03:39 05/11/25 03:39 05/11/25 03:39 05/11/25 04:05 05/11/25 04:05 Oxygen Flow Rate (L/min) 2 Oxygen Delivery Method Nasal Cannula Weight: 254 lb 3.088 oz Body Mass Index (BMI) 49.6 Intake & Output: Intake and Output for Last 24 Hours 05/09/25 05/10/25 05/11/25 23:59 23:59 23:59 Intake Total 640.00 / 640.00 50 / 50 Output Total 150 / 150 200 / 200 Balance 490.00 / 490.00 -150 / -150 Lab / Micro Data 05/11/25 06:28 05/11/25 06:28 Labs: Laboratory Results - last 24 hr 05/10/25 14:55: WBC 11.6 H, RBC 3.58 L, Hgb 10.9 L, Hct 33.8 L, MCV 94.4, MCH 30.4, MCHC 32.2, RDW Std Deviation 52.8 H, RDW Coeff of Cecil 15.2 H, Plt Count 210, MPV 10.2, Immature Gran % (Auto) 0.800, Neut % (Auto) 68.1, Lymph % (Auto) 17.4 L, Darke % (Auto) 6.7, Eos % (Auto) 6.7 H, Baso % (Auto) 0.3, Absolute Neuts(auto) 7.9 H, Absolute Lymphs (auto) 2.02, Nucleated RBC % 0, Differential Comment SCANNED, Platelet Estimate ADEQUATE, ESR 37 H, Sodium 138, Potassium 3.9, Chloride 101, Carbon Dioxide 23.5, Anion Gap 14, BUN 30 H, Creatinine 1.01,Estim Creat Clear Calc 58.10, Est GFR (MDRD) Non-Af58 L, BUN/Creatinine Ratio 29.8 H, Glucose 152 H, Lactic Acid 1.7, Calcium 9.6, C-React Prot Ext Ran ge 85.00 H, TSH 2.810 05/10/25 22:06: POC Glucose 170 H 05/11/25 06:28: WBC 11.0, RBC 2.96 L, Hgb 8.9 L, Hct 27.8 L, MCV 93.9, MCH 30.1,MCHC 32.0, RDW Std Deviation 52.9 H, RDW Coeff of Cecil 15.1 H, Plt Count 192, MPV9.7, Immature Gran % (Auto) 0.800, Neut% (Auto) 68.5, Lymph % (Auto) 14.5 L, Darke % (Auto) 6.9, Eos % (Auto) 8.9 H, Baso % (Auto) 0.4, Absolute Neuts (auto) 7.5, Absolute Lymphs (auto) 1.59, Nucleated RBC % 0, ESR 26 05/11/25 06:36: POC Glucose 113 H Radiography Diagnostic Testing: Radiology Impression Foot X-Ray 05/10/25 15:20 IMPRESSION: Profound osteopenia, no demonstrated fracture, please see discussion above Polyarticular arthrosis Calcaneal spurs Soft tissue swelling Reading Location: [facility] Physical Exam Narrative Seen and examined with the canvas cutter hand Dr. Bhardwaj Patient stated she does not like poking her finger therefore does not [place]uc[place] wants continuous glucose monitoring device and is talked to her PCP Dr. Hellerfor that. Left fifth toe has medial side erythema and a small ulcer. Physical exam General: Alert, Oriented x3, Cooperative. BMI 49.6 kg/m?, morbid obesity HEENT: Atraumatic, PERRLA, EOMI, Normocephalic. Oral: Oral mucosa moist. No Gingival or Mucosal Lesions/ Ulcerations Neck: Supple, No JVD, Negative Carotid Bruits Chest wall/Lungs: Air entry diminished in bilateral lung bases. No crepitation/rhonchi Cardiovascular: Regular rate and rhythm, Normal S1,S2, No M/G/R Abdomen: Bowel Sounds Present, Soft, Non Tender, Non-Distended : No dysuria. No renal angle tenderness. No suprapubic tenderness. Extremities: No edema, Capillary Refill Less than 3 Seconds Skin: Small ulcer with visible tiny possible tendon but no bone felt on the medial side of left fifth toe. Musculoskeletal: No Tenderness to Palpation of Joints or Extremities Neurological: Cranial nerves II-XII grossly intact, DTR 2+/4. No acute focal neurological deficit. Psych/Mental Status: Normal Affect, Appropriate. Assessment & Plan Assessment/Plan (1) Diabetic foot infection: PLAN: Plan 75-year-old female admitted with left fifth toe pain with radiation towards the ankle for several weeks. Redness, swelling on left lateral foot for past 2 days. History with complicated DM type II with neuropathy. Follows with Dr. Geiger. # Cellulitis of foot in diabetic patient -Elevated ESR, CRP -X-ray of foot only showed soft tissue swelling. MRI is pending. ? Initially started on IV vancomycin and Zosyn. Had rash with Vanco in ED. Vancomycin narrowed downto doxycycline. ID Zosyn narrowed to Unasyn. Was seen and examined with canvas cutter hand. Further plan after MRI. Culture was taken and sent. # Intermittent tachycardia -Patient has intermittently had heart rates up to 140s/150?s with narrow complextachycardia that would start and stop quickly, suspected to be slow SVT. EKG right after episode with sinus rhythm withfirst-degree AV block. Patient asymptomatic during those events -Monitor on telemetry -Echocardiogram Accu-Chek before meals and at bedtime with Humalog sliding scale coverage and hypoglycemia protocol. May 2023 shows EF 45%, mild MR mild TR, RVSP 45 emergency. -TSH 2.81. Heart rate 76/min. Echo is ordered - If further episodes or persistent may need to start beta-rivera or consider cardiology consult #Type 2 diabetes mellitus complicated with diabetic neuropathy -Glucose checks and sliding scale insulin - A1c 6.6%. Glucose is reasonably controlled less than 150 mg/dL. #Hypothyroidism -Continue Synthroid #SUSAN -Continue home NIPPV if applicable #Depression/anxiety -Continue home medications # Restless leg syndrome -continue patient's home medication regimen # History of asthma - Budesonide inhaler as needed #Morbid obesity -BMI documented as 48 kg/m? at time of admission -Complicates treatment, prognosis, outcomes -Recommend weight loss and lifestyle changes #DVT ppx: Lovenox 40 mg SQ twice daily Microbiology Past 72 Hours 05/11/25 09:30 Wound - Left Foot Gram Stain - Final Laboratory Results 05/10/25 14:55: WBC 11.6 H, RBC 3.58 L, Hgb 10.9 L, Hct 33.8 L, MCV 94.4, MCH 30.4, MCHC 32.2, RDW Std Deviation 52.8 H, RDW Coeff of Cecil 15.2 H, Plt Count 210, MPV 10.2, Immature Gran % (Auto) 0.800, Neut % (Auto) 68.1, Lymph % (Auto) 17.4 L, Darke % (Auto) 6.7, Eos % (Auto) 6.7 H, Baso % (Auto) 0.3, Absolute Neuts(auto) 7.9 H, Absolute Lymphs (auto) 2.02, Nucleated RBC % 0, Differential Comment SCANNED, Platelet Estimate ADEQUATE, ESR 37 H, Sodium 138, Potassium 3.9, Chloride 101, Carbon Dioxide 23.5, Anion Gap 14, BUN 30 H, Creatinine 1.01,Estim Creat Clear Calc 58.10, Est GFR (MDRD) Non-Af58 L, BUN/Creatinine Ratio 29.8 H, Glucose 152 H, Lactic Acid 1.7, Calcium 9.6, C-React Prot Ext Ran ge 85.00 H, TSH 2.810 05/10/25 22:06: POC Glucose 170 H 05/11/25 06:28: WBC 11.0, RBC 2.96 L, Hgb 8.9 L, Hct 27.8 L, MCV 93.9, MCH 30.1,MCHC 32.0, RDW Std Deviation 52.9 H, RDW Coeff of Cecil 15.1 H, Plt Count 192, MPV9.7, Immature Gran % (Auto) 0.800, Neut% (Auto) 68.5, Lymph % (Auto) 14.5 L, Darke % (Auto) 6.9, Eos % (Auto) 8.9 H, Baso % (Auto) 0.4, Absolute Neuts (auto) 7.5, Absolute Lymphs (auto) 1.59, Nucleated RBC % 0, ESR 26, Sodium 137, Potassium 4.3, Chloride 105, Carbon Dioxide 21.2, Anion Gap 11, BUN 31 H, Creatinine 1.14, Estim Creat ClearCalc 48.66 L, Est GFR (MDRD) Non-Af 50 L, BUN/Creatinine Ratio 27.5 H, Glucose 113 H, Hemoglobin A1c 6.6 H, Uric Acid 7.9 H, Calcium 8.6, C-React Prot Ext Range 98.10 H 05/11/25 06:36: POC Glucose 113 H 05/11/25 11:25: POC Glucose 148 H Echo June 19 Interpretation Summary The study was technically difficult. The left ventricular ejection fraction is 45 %. Moderate mitral annular calcification. Mild (1+) mitral valve insufficiency. Mild tricuspid valve insufficiency. Right ventricular systolic pressure estimated to be 45 mmHg. Clinical Impression(s) from Imaging Studies Foot X-Ray 05/10/25 15:20 IMPRESSION: Profound osteopenia, no demonstrated fracture, please see discussion above Polyarticular arthrosis Calcaneal spurs Soft tissue swelling Charges/Coding Visit Charges Inpatient E&M: 68868 Subs Hosp L2 05/11/25 5947 Cosigner Signature (if applicable): CC: ~ Signed [facility]08-15-2025 Consult note Author Jalen Spence [facility] Note Date/Time May 11, 2025 1: 23pm [facility] Medical Records Department [address] [place] [address] Pharmacokinetic/Renal -Consult 05/10/252148 MR#: [id number] Acct: [id number] Name: EDUAR CABRERA Rep #:[id number] : 1950 75 From: Jalen Spence PCP: Dr. Corby Heller MD Status:ADM I N Y Location: [place] [address] Consult Antibiotic Management Pharmacy has been consulted to manage selected antibiotic: Vancomycin Type of Intervention Type of Consult: New start Suspected Infection Suspected Infection: Skin/Soft tissue Labs Labs: Sodium 138 mmol/L (133-145) 05/10/25 14:55 Potassium 3.9 mmol/L (3.3-5.1) 05/10/25 14:55 Chloride 101 mmol/L (98-108) 05/10/25 14:55 Carbon Dioxide 23.5 mmol/L (21.0-32.0) 05/10/25 14:55 Anion Gap 14 (5-15) 05/10/25 14:55 BUN 30 mg/dL (4-19) H 05/10/25 14:55 Creatinine 1.01 mg/dL (0.70-1.20) 05/10/25 14:55 Est GFR (MDRD) Non-Af 58 (>60) L 05/10/25 14:55 BUN/Creatinine Ratio 29.8 RATIO (10-20) H 05/10/25 14:55 Glucose 152 mg/dL (70-99) H 05/10/25 14:55 Dosing Weight Weight used for dosin.3 kg Estimated Creatinine Clearance Estimated Creatinine Clearance: 58 Goal Trough Goal Trough: 15-20 mcg/mL Pharmacy Plan for Drug Dosing Pharmacy Plan for Drug Dosing: Pharmacy Service will continue to monitor and adjust dosing as required. Follow-Up Labs Follow-Up Labs: Trough: Vancomycin Date/Time Labs Ordered Labs to be done on [date and time ordered]: 05/12/25 @0500 05/10/252149 <Electronically signed by Jalen hahn> Date _ Jalen Spence 05/11/25 1323 <Electronically signed by Holly Lopez MD> Cosigner Signature (if applicable): Date Holly Lopez MD CC: ~ Signed [facility] Work Phone: [phone] Consult note Author Rob Krishnamurthy [facility] Note Date/Time May 11, 2025 12 :52pm [facility] Medical Records Department [address] [place] [address] Consultation - Infectious Dx 05/11/25 1249 MR#: [id number] Acct: [id number] Name: EDUAR CABRERA Rep #:[id number] : 1950 75 From: Rob hankins MD PCP: Dr. Corby Heller MD Status:ADM I N Location: [place] [address] Assessment & Plan Assessment/Plan (1) Diabetic foot infection: PLAN: Wound cx pending, seen by Dr. Bhardwaj. MRI pending. On doxy and zosyn. Had rash with vanc in ED. Cont doxy, will narrow zosyn to unasyn. Will follow, thank you HPI Consult Data Date of Consult: 05/11/25 HPI Narrative Reason for Consultation: DM foot infection HPI Narrative: EDUAR CABRERA, is a 75 F with h/o DM, presented to ED 05/10 with about a weekprogressive L lateral toe pain, redness, swelling. No fever or chills, no recent abx. Pain was moderate. Came to ED, had rash with vanc, now admitted on doxy and zosyn. Seen by podiatry. MRI pending. Feeling better. Full ROS performed and neg except as noted above. [facility] Medical History History of ESBL Klebsiella pneumoniae [...] Fibromyalgia Foot arch pain COVID-19 Home Medications ?Medication ?Instructions ?Recorded ?Last Taken ?Type fluticasone propionate 50 2 spray NASAL DAILY allergie s 12/07/16 05/31/24 History mcg/actuation nasal spray,suspension citalopram 20 mg tablet 20 mg PO QHS DEPRESSION 03/2905/31/24 History levothyroxine 25 mcg tablet 25 mcg PO DAILY thyroid 04/06/24 07:00 History lovastatin 40 mg tablet 40 mg PO QHS cholesterol 12/1505/31/24 History ropinirole 2 mg tablet 2 mg PO QHS RLS 06/25/2301/18 History glucosamine 375 lv-cqbxseqhs-kti 3 tab PO DAILY joints 08/02/23 05/31/24 History no1 500 mg-C 15 mg-gianni 0.5 mg tablet (Adkmufshdht-Cgmyytpcfap-WGJ Complex) metformin 500 mg tablet 500 mg PO BID dm 08/02/23 History cranberry fruit 400 mg capsule 400 mg PO DAILY health 11/03/23 05/31/24 History vitamin B complex 1 tab PO DAILY health 05/31/24 History budesonide 0.5 mg/2 mL suspension 0.5 mg inhalation Q1 2H PRN PRN 03/23/24 Unknown History for nebulization breathing finerenone 10 mg tablet (Kerendia) 10 mg PO DAILY heal th 05/18/24 05/31/24 History ipratropium bromide 42 mcg (0.06 2 spray intranasal DA JAYDE sob 06/19/24 Unknown History %) nasal spray levalbuterol tartrate 45 1 puff inhalation Q4H PRN Unknown History mcg/actuation aerosol inhaler shortness of breath polysaccharide iron complex 150 mg 150 mg PO QDAY anem ia 06/19/24 Unknown History iron capsule (Ferrex) ascorbate calcium (vitamin C) 500 1 g PO DAILY health 12/22/24 Unknown History mg tablet coenzyme Q10 100 mg capsule 50 mg PO DAILY health 11/26 05/21 Unknown History (CoQ-10) echinacea 500 mg capsule 1,000 mg PO DAILY health Unknown History melatonin 10 mg capsule 10 mg PO QHS sleep 12/22/24 Unknown History Allergy/AdvReac Type Severity Reaction Status Date / Time cephalexin monohydrate (From Allergy Swelling Verified 01/26/25 14:38 Keflex) ibuprofen Allergy Swelling Verified 01/26/25 14:38 oxaprozin (From Daypro) Allergy Swelling Verified 01/26/25 14:38 tramadol HCl (From Ultram) Allergy Swelling Verified 01/26/25 14:38 albuterol AdvReac Intermediate Other Verified 01/26/25 14:38 celecoxib (From Celebrex) AdvReac DIZZY AND Verified 01/26/25 14:38 HURTS AROUND MY LIVER Family History Other Diabetes Hypertension Surgical History Hx of bilateral cataract extraction History of cystoscopy Hx of umbilical hernia repair History of carpal tunnel surgery of left wrist Hx of tonsillectomy Hx of colonoscopy History of ureter stent Social History household members: children housing: house Smoking Status: Never smoker alcohol intake: never substance use type: does not use Physical Exam Const alert, oriented x3 and no apparent distress General Appearance: cooperative HEENT normocephalic and head/scalp atraumatic Eyes PERRL and EOMs intact bilaterally Neck supple and No nodes Resp normal air movement and clear to auscultation bilaterally Cardio regular rate and regular rhythm GI soft to palpation, non-tender and non-distended Extremity General Extremity: edema Skin Skin Narrative: L 5th toe with some redness, swelling, small wound Neuro CN's II-XII intact bilaterally Lab / Micro Data Attestation: I reviewed the patient's lab results. 05/11/25 06:28 05/11/25 06:28 Labs: Laboratory Results - last 24 hr 05/10/25 14:55: WBC 11.6 H, RBC 3.58 L, Hgb 10.9 L, Hct 33.8 L, MCV 94.4, MCH 30.4, MCHC 32.2, RDW Std Deviation 52.8 H, RDW Coeff of Cecil 15.2 H, Plt Count 210, MPV 10.2, Immature Gran % (Auto) 0.800, Neut % (Auto) 68.1, Lymph % (Auto) 17.4 L, Darke % (Auto) 6.7, Eos % (Auto) 6.7 H, Baso % (Auto) 0.3, Absolute Neuts(auto) 7.9 H, Absolute Lymphs (auto) 2.02, Nucleated RBC % 0, Differential Comment SCANNED, Platelet Estimate ADEQUATE, ESR 37 H, Sodium 138, Potassium 3.9, Chloride 101, Carbon Dioxide 23.5, Anion Gap 14, BUN 30 H, Creatinine 1.01,Estim Creat Clear Calc 58.10, Est GFR (MDRD) Non-Af 58 L, BUN/Creatinine Ratio 29.8 H, Glucose 152 H, Lactic Acid 1.7, Calcium 9.6, C-React Prot Ext Range 85.00 H, TSH 2.810 05/10/25 22:06: POC Glucose 170 H 05/11/25 06:28: WBC 11.0, RBC 2.96 L, Hgb 8.9 L, Hct 27.8 L, MCV 93.9, MCH 30.1,MCHC 32.0, RDW Std Deviation 52.9 H, RDW Coeff of Cecil 15.1 H, Plt Count 192, MPV9.7, Immature Gran % (Auto) 0.800, Neut % (Auto) 68.5, Lymph % (Auto) 14.5 L, Darke % (Auto) 6.9, Eos % (Auto) 8.9 H, Baso % (Auto) 0.4, Absolute Neuts (auto) 7.5, Absolute Lymphs (auto) 1.59, Nucleated RBC % 0, ESR 26, Sodium 137, Potassium 4.3, Chloride 105, Carbon Dioxide 21.2, Anion Gap 11, BUN 31 H, Creatinine 1.14, Estim Creat Clear Calc 48.66 L, Est GFR (MDRD) Non-Af 50 L, BUN/Creatinine Ratio 27.5 H, Glucose 113 H, Hemoglobin A1c 6.6 H, Uric Acid 7.9 H, Calcium 8.6, C-React Prot Ext Range 98.10 H 05/11/25 06:36: POC Glucose 113 H 05/11/25 11:25: POC Glucose 148 H Imaging Radiology Impression Foot X-Ray 08/14/25 15:20 IMPRESSION: Profound osteopenia, no demonstrated fracture, please see discussion above Polyarticular arthrosis Calcaneal spurs Soft tissue swelling Reading Location: [facility] 05/11/25 1252 <Electronically signed by Rob Krishnamurthy MD> Cosigner Signature (if applicable): CC: Dr. Corby Heller MD~ Signed [facility] Work Phone: 1(165) [phone] Consult note [facility] Medical Records Department [address] [place] [address] Pharmacokinetic/Renal -Consult 05/10/252148 MR#: [id number] Acct: [id number] Name: EDUAR CABRERA Rep #:[id number] : 1950 75 From: Jalen Spence PCP: Dr. Corby Heller MD Status:ADM I N Y Location: [place] [address] Consult Antibiotic Management Pharmacy has been consulted to manage selected antibiotic: Vancomycin Type of Intervention Type of Consult: New start Suspected Infection Suspected Infection: Skin/Soft tissue Labs Labs: Sodium 138 mmol/L (133-145) 05/10/25 14:55 Potassium 3.9 mmol/L (3.3-5.1) 05/10/25 14:55 Chloride 101 mmol/L (98-108) 05/10/25 14:55 Carbon Dioxide 23.5 mmol/L (21.0-32.0) 05/10/25 14:55 Anion Gap 14 (5-15) 05/10/25 14:55 BUN 30 mg/dL (4-19) H 05/10/25 14:55 Creatinine 1.01 mg/dL (0.70-1.20) 05/10/25 14:55 Est GFR (MDRD) Non-Af 58 (>60) L 05/10/25 14:55 BUN/Creatinine Ratio 29.8 RATIO (10-20) H 05/10/25 14:55 Glucose 152 mg/dL (70-99) H 05/10/25 14:55 Dosing Weight Weight used for dosin.3 kg Estimated Creatinine Clearance Estimated Creatinine Clearance: 58 Goal Trough Goal Trough: 15-20 mcg/mL Pharmacy Plan for Drug Dosing Pharmacy Plan for Drug Dosing: Pharmacy Service will continue to monitor and adjust dosing as required. Follow-Up Labs Follow-Up Labs: Trough: Vancomycin Date/Time Labs Ordered Labs to be done on [date and time ordered]: 05/12/25 @0500 05/10/25 2150 ds> Date _ Jalen Spence 05/11/25 1323 MD> Cosigner Signature (if applicable): Date Holly Lopez MD CC: ~ Signed [facility]08-15-2025 Consult note [facility] Medical Records Department [address] [place] [address] Consultation - Infectious Dx 05/11/25 1249 MR#: [id number] Acct: [id number] Name: EDUAR CABRERA Rep #:[id number] : 1950 75 From: Rob hankins MD PCP: Dr. Corby Heller MD Status:ADM I N Location: [place] [address] Assessment & Plan Assessment/Plan (1) Diabetic foot infection: PLAN: Wound cx pending, seen by Dr. Bhardwaj. MRI pending. On doxy and zosyn. Had rash with vanc in ED. Cont doxy, will narrow zosyn to unasyn. Will follow, thank you HPI Consult Data Date of Consult: 05/11/25 HPI Narrative Reason for Consultation: DM foot infection HPI Narrative: EDUAR CABRERA, is a 75 F with h/o DM, presented to ED 05/10 with about a weekprogressive L lateral toe pain, redness, swelling. No fever or chills, no recent abx. Pain was moderate. Came to ED, had rash with vanc, now admitted on doxy and zosyn. Seen by podiatry. MRI pending. Feeling better. Full ROS performed and neg except as noted above. PFSH Medical History History of ESBL Klebsiella [...] Fibromyalgia Foot arch pain COVID-19 Home Medications ?Medication ?Instructions ?Recorded ?Last Taken ?Type fluticasone propionate 50 2 spray NASAL DAILY allergie s 12/07/16 05/31/24 History mcg/actuation nasal spray,suspension citalopram 20 mg tablet 20 mg PO QHS DEPRESSION 03/2905/31/24 History levothyroxine 25 mcg tablet 25 mcg PO DAILY thyroid 04/06/24 07:00 History lovastatin 40 mg tablet 40 mg PO QHS cholesterol 12/1505/31/24 History ropinirole 2 mg tablet 2 mg PO QHS RLS 06/25/2301/18 History glucosamine 375 xq-pnvzvbxqb-ukz 3 tab PO DAILY joints 08/02/23 05/31/24 History no1 500 mg-C 15 mg-gianni 0.5 mg tablet (Ukjjcpghplc-Wkbiuztkuwc-WTP Complex) metformin 500 mg tablet 500 mg PO BID dm 08/02/23 History cranberry fruit 400 mg capsule 400 mg PO DAILY health 11/03/23 05/31/24 History vitamin B complex 1 tab PO DAILY health 05/31/24 History budesonide 0.5 mg/2 mL suspension 0.5 mg inhalation Q1 2H PRN PRN 03/23/24 Unknown History for nebulization breathing finerenone 10 mg tablet (Kerendia) 10 mg PO DAILY heal th 05/18/24 05/31/24 History ipratropium bromide 42 mcg (0.06 2 spray intranasal DA JAYDE sob 06/19/24 Unknown History %) nasal spray levalbuterol tartrate 45 1 puff inhalation Q4H PRN Unknown History mcg/actuation aerosol inhaler shortness of breath polysaccharide iron complex 150 mg 150 mg PO QDAY anem ia 06/19/24 Unknown History iron capsule (Ferrex) ascorbate calcium (vitamin C) 500 1 g PO DAILY health 12/22/24 Unknown History mg tablet coenzyme Q10 100 mg capsule 50 mg PO DAILY health 11/26 05/21 Unknown History (CoQ-10) echinacea 500 mg capsule 1,000 mg PO DAILY health Unknown History melatonin 10 mg capsule 10 mg PO QHS sleep 12/22/24 Unknown History Allergy/AdvReac Type Severity Reaction Status Date / Time cephalexin monohydrate (From Allergy Swelling Verified 01/26/25 14:38 Keflex) ibuprofen Allergy Swelling Verified 01/26/25 14:38 oxaprozin (From Daypro) Allergy Swelling Verified 01/26/25 14:38 tramadol HCl (From Ultram) Allergy Swelling Verified 01/26/25 14:38 albuterol AdvReac Intermediate Other Verified 01/26/25 14:38 celecoxib (From Celebrex) AdvReac DIZZY AND Verified 01/26/25 14:38 HURTS AROUND MY LIVER Family History Other Diabetes Hypertension Surgical History Hx of bilateral cataract extraction History of cystoscopy Hx of umbilical hernia repair History of carpal tunnel surgery of left wrist Hx of tonsillectomy Hx of colonoscopy History of ureter stent Social History household members: children housing: house Smoking Status: Never smoker alcohol intake: never substance use type: does not use Physical Exam Const alert, oriented x3 and no apparent distress General Appearance: cooperative HEENT normocephalic and head/scalp atraumatic Eyes PERRL and EOMs intact bilaterally Neck supple and No nodes Resp normal air movement and clear to auscultation bilaterally Cardio regular rate and regular rhythm GI soft to palpation, non-tender and non-distended Extremity General Extremity: edema Skin Skin Narrative: L 5th toe with some redness, swelling, small wound Neuro CN's II-XII intact bilaterally Lab / Micro Data Attestation: I reviewed the patient's lab results. 05/11/25 06:28 05/11/25 06:28 Labs: Laboratory Results - last 24 hr 05/10/25 14:55: WBC 11.6 H, RBC 3.58 L, Hgb 10.9 L, Hct 33.8 L, MCV 94.4, MCH 30.4, MCHC 32.2, RDW Std Deviation 52.8 H, RDW Coeff of Cecil 15.2 H, Plt Count 210, MPV 10.2, Immature Gran % (Auto) 0.800, Neut % (Auto) 68.1, Lymph % (Auto) 17.4 L, Darke % (Auto) 6.7, Eos % (Auto) 6.7 H, Baso % (Auto) 0.3, Absolute Neuts(auto) 7.9 H, Absolute Lymphs (auto) 2.02, Nucleated RBC % 0, Differential Comment SCANNED, Platelet Estimate ADEQUATE, ESR 37 H, Sodium 138, Potassium 3.9, Chloride 101, Carbon Dioxide 23.5, Anion Gap 14, BUN 30 H, Creatinine 1.01,Estim Creat Clear Calc 58.10, Est GFR (MDRD) Non-Af58 L, BUN/Creatinine Ratio 29.8 H, Glucose 152 H, Lactic Acid 1.7, Calcium 9.6, C-React Prot Ext Ran ge 85.00 H, TSH 2.810 05/10/25 22:06: POC Glucose 170 H 05/11/25 06:28: WBC 11.0, RBC 2.96 L, Hgb 8.9 L, Hct 27.8 L, MCV 93.9, MCH 30.1,MCHC 32.0, RDW Std Deviation 52.9 H, RDW Coeff of Cecil 15.1 H, Plt Count 192, MPV9.7, Immature Gran % (Auto) 0.800, Neut% (Auto) 68.5, Lymph % (Auto) 14.5 L, Darke % (Auto) 6.9, Eos % (Auto) 8.9 H, Baso % (Auto) 0.4, Absolute Neuts (auto) 7.5, Absolute Lymphs (auto) 1.59, Nucleated RBC % 0, ESR 26, Sodium 137, Potassium 4.3, Chloride 105, Carbon Dioxide 21.2, Anion Gap 11, BUN 31 H, Creatinine 1.14, Estim Creat ClearCalc 48.66 L, Est GFR (MDRD) Non-Af 50 L, BUN/Creatinine Ratio 27.5 H, Glucose 113 H, Hemoglobin A1c 6.6 H, Uric Acid 7.9 H, Calcium 8.6, C-React Prot Ext Range 98.10 H 05/11/25 06:36: POC Glucose 113 H 05/11/25 11:25: POC Glucose 148 H Imaging Radiology Impression Foot X-Ray 05/10/25 15:20 IMPRESSION: Profound osteopenia, no demonstrated fracture, please see discussion above Polyarticular arthrosis Calcaneal spurs Soft tissue swelling Reading Location: [id number] 05/11/25 1252 Cosigner Signature (if applicable): CC: Dr. Corby Heller MD~ Signed [facility]08-15-2025 Consult note Author [facility] Note Date/Time May 11, 2025 9: 49am [facility] Medical Records Department [address] [place] [id number] Consultation 05/11/25 0938 MR#: [id number] Acct: [id number] Name: EDUAR CABRERA Rep #:[id number] : 1950 75 From: Luis Bhardwaj DPM PCP: Dr. Corby Heller MD Status:ADM I N Location: [place] [address] Assessment & Plan Assessment/Plan (1) Type 2 diabetes mellitus with foot ulcer: (2) Cellulitis of left lower limb: (3) Ulcer of left foot with muscle involvement without evidence of necrosis: PLAN: Plan Evaluation performed. Reviewed diagnostic data. There is an ulceration sub left 5th toe at area of the sulcus. No debridement needed at this time. A culture was obtained of the ulceration. Patient is on IV antibiotics and Infectious Disease has been consulted. Noninvasive lower extremity arterial studies ordered - there is no evidence of acute ischemia to foot bilateral. Wound care left 5th toe: Betadine soln topically and gauze dressing BID. No weightbearing to toes left foot. Ordered surgical shoe. Podiatry will continue to follow, thank you for consultation. Discussed with . HPI Consult Data Date of Consult: 05/11/25 HPI Narrative Reason for Consultation: Left 5th toe infection HPI Narrative: EDUAR CABRERA, is a 75 F who presented to ER yesterday and was admitted for left 5th toe infection. She relates it started a couple days ago and has been worsening, she has redness, swelling and pain to the site. She denies any recenttrauma, but relates to previous injury when horse stepped on her foot in the past. She has history of diabetes. She is resting in bed. She has been on IV antibiotics Vanc and Zosyn since yesterday and she relates toe is feeling and looking better. [facility] Medical History History of ESBL Klebsiella pneumoniae [...] Fibromyalgia Foot arch pain COVID-19 Home Medications ?Medication ?Instructions ?Recorded ?Last Taken ?Type fluticasone propionate 50 2 spray NASAL DAILY allergie s 12/07/16 05/31/24 History mcg/actuation nasal spray,suspension citalopram 20 mg tablet 20 mg PO QHS DEPRESSION 03/2905/31/24 History levothyroxine 25 mcg tablet 25 mcg PO DAILY thyroid 04/06/24 07:00 History lovastatin 40 mg tablet 40 mg PO QHS cholesterol 12/1505/31/24 History ropinirole 2 mg tablet 2 mg PO QHS RLS 06/25/2301/18 History glucosamine 375 uu-tuxwbbzrj-vct 3 tab PO DAILY joints 08/02/23 05/31/24 History no1 500 mg-C 15 mg-gianni 0.5 mg tablet (Yjykvyypfhs-Xomdbkxmrue-SGA Complex) metformin 500 mg tablet 500 mg PO BID dm 08/02/23 History cranberry fruit 400 mg capsule 400 mg PO DAILY health 11/03/23 05/31/24 History vitamin B complex 1 tab PO DAILY health 05/31/24 History budesonide 0.5 mg/2 mL suspension 0.5 mg inhalation Q1 2H PRN PRN 03/23/24 Unknown History for nebulization breathing finerenone 10 mg tablet (Kerendia) 10 mg PO DAILY heal th 05/18/24 05/31/24 History ipratropium bromide 42 mcg (0.06 2 spray intranasal DA JAYDE sob 06/19/24 Unknown History %) nasal spray levalbuterol tartrate 45 1 puff inhalation Q4H PRN Unknown History mcg/actuation aerosol inhaler shortness of breath polysaccharide iron complex 150 mg 150 mg PO QDAY anem ia 06/19/24 Unknown History iron capsule (Ferrex) ascorbate calcium (vitamin C) 500 1 g PO DAILY health 12/22/24 Unknown History mg tablet coenzyme Q10 100 mg capsule 50 mg PO DAILY health 11/26 05/21 Unknown History (CoQ-10) echinacea 500 mg capsule 1,000 mg PO DAILY health Unknown History melatonin 10 mg capsule 10 mg PO QHS sleep 12/22/24 Unknown History Allergy/AdvReac Type Severity Reaction Status Date / Time cephalexin monohydrate (From Allergy Swelling Verified 01/26/25 14:38 Keflex) ibuprofen Allergy Swelling Verified 01/26/25 14:38 oxaprozin (From Daypro) Allergy Swelling Verified 01/26/25 14:38 tramadol HCl (From Ultram) Allergy Swelling Verified 01/26/25 14:38 albuterol AdvReac Intermediate Other Verified 01/26/25 14:38 celecoxib (From Celebrex) AdvReac DIZZY AND Verified 01/26/25 14:38 HURTS AROUND MY LIVER Family History Other Diabetes Hypertension Surgical History Hx of bilateral cataract extraction History of cystoscopy Hx of umbilical hernia repair History of carpal tunnel surgery of left wrist Hx of tonsillectomy Hx of colonoscopy History of ureter stent Social History household members: children housing: house Smoking Status: Never smoker alcohol intake: never substance use type: does not use Physical Exam Const alert, oriented x3 and no apparent distress Constitutional Narrative: Left 5th toe with ulceration plantar sulcus down to flexor tendon, no probe to bone, tissues are healthy, viable and granular, there is some some maloder and some serous drainage, there is no visible abscess, no fluctuance, no crepitus, no necrosis, there is erythema to the left 5th toe and extends dorsally to the forefoot but appears to be improving, no other open lesions bilateral foot. She notes to some POP to the left 5th toe but she relates it is definitely feeling better than yesterday. No other POP or pain on ROM to foot or ankle bilateral. No evidence of acute ischemia bilateral foot. There is palpable pedal pulses bilateral. Diffuse chronic appearing LE edema. Chronic contracture of lesser toes bilateral. DJD to the foot bilateral. Sensation is some diminished to foot - left. Lab / Micro Data 05/11/25 06:28 05/11/25 06:28 Labs: Laboratory Results - last 24 hr 05/10/25 14:55: WBC 11.6 H, RBC 3.58 L, Hgb 10.9 L, Hct 33.8 L, MCV 94.4, MCH 30.4, MCHC 32.2, RDW Std Deviation 52.8 H, RDW Coeff of Cecil 15.2 H, Plt Count 210, MPV 10.2, Immature Gran % (Auto) 0.800, Neut % (Auto) 68.1, Lymph % (Auto) 17.4 L, Darke % (Auto) 6.7, Eos % (Auto) 6.7 H, Baso % (Auto) 0.3, Absolute Neuts(auto) 7.9 H, Absolute Lymphs (auto) 2.02, Nucleated RBC % 0, Differential Comment SCANNED, Platelet Estimate ADEQUATE, ESR 37 H, Sodium 138, Potassium 3.9, Chloride 101, Carbon Dioxide 23.5, Anion Gap 14, BUN 30 H, Creatinine 1.01,Estim Creat Clear Calc 58.10, Est GFR (MDRD) Non-Af 58 L, BUN/Creatinine Ratio 29.8 H, Glucose 152 H, Lactic Acid 1.7, Calcium 9.6, C-React Prot Ext Range 85.00 H, TSH 2.810 05/10/25 22:06: POC Glucose 170 H 05/11/25 06:28: WBC 11.0, RBC 2.96 L, Hgb 8.9 L, Hct 27.8 L, MCV 93.9, MCH 30.1,MCHC 32.0, RDW Std Deviation 52.9 H, RDW Coeff of Cecil 15.1 H, Plt Count 192, MPV9.7, Immature Gran % (Auto) 0.800, Neut % (Auto) 68.5, Lymph % (Auto) 14.5 L, Darke % (Auto) 6.9, Eos % (Auto) 8.9 H, Baso % (Auto) 0.4, Absolute Neuts (auto) 7.5, Absolute Lymphs (auto) 1.59, Nucleated RBC % 0, ESR 26, Sodium 137, Potassium 4.3, Chloride 105, Carbon Dioxide 21.2, Anion Gap 11, BUN 31 H, Creatinine 1.14, Estim Creat Clear Calc 48.66 L, Est GFR (MDRD) Non-Af 50 L, BUN/Creatinine Ratio 27.5 H, Glucose 113 H, Calcium 8.6, C-React Prot Ext Range 98.10 H 05/11/25 06:36: POC Glucose 113 H Imaging Radiology Impression Foot X-Ray 05/10/25 15:20 IMPRESSION: Profound osteopenia, no demonstrated fracture, please see discussion above Polyarticular arthrosis Calcaneal spurs Soft tissue swelling Reading Location: [facility] 05/11/25 0949 <Electronically signed by Luis Bhardwaj DPM> Cosigner Signature (if applicable): CC: Dr. Corby Heller MD~ Signed [facility] Work Phone: [phone] 676-645008-15-2025 Consult note [facility] Medical Records Department [address] [place] [address] Consultation 05/11/25 0938 MR#: [id number] Acct: [id number] Name: EDUAR CABRERA Rep #:[id number] : 1950 75 From: Luis Bhardwaj DPM PCP: Dr. Corby Heller MD Status:ADM I N Location: [place] [address] Assessment & Plan Assessment/Plan (1) Type 2 diabetes mellitus with foot ulcer: (2) Cellulitis of left lower limb: (3) Ulcer of left foot with muscle involvement without evidence of necrosis: PLAN: Plan Evaluation performed. Reviewed diagnostic data. There is an ulceration sub left 5th toe at area of the sulcus. No debridement needed at this time. A culture was obtained of the ulceration. Patient is on IV antibiotics and Infectious Disease has been consulted. Noninvasive lower extremity arterial studies ordered - there is no evidence of acute ischemia to foot bilateral. Wound care left 5th toe: Betadine soln topically and gauze dressing BID. No weightbearing to toes left foot. Ordered surgical shoe. Podiatry will continue to follow, thank you for consultation. Discussed with . HPI Consult Data Date of Consult: 05/11/25 HPI Narrative Reason for Consultation: Left 5th toe infection HPI Narrative: EDUAR CABRERA, is a 75 F who presented to ER yesterday and was admitted for left 5th toe infection. She relates it started a couple days ago and has been worsening, she has redness, swelling and pain to the site. She denies any recenttrauma, but relates to previous injury when horse stepped on her foot in the past. She has history of diabetes. She is resting in bed. She has been on IV antibiotics Vanc and Zosyn since yesterday and she relates toe is feeling and looking better. [facility] Medical History History of ESBL Klebsiella pneumoniae [...] Fibromyalgia Foot arch pain COVID-19 Home Medications ?Medication ?Instructions ?Recorded ?Last Taken ?Type fluticasone propionate 50 2 spray NASAL DAILY allergie s 12/07/16 05/31/24 History mcg/actuation nasal spray,suspension citalopram 20 mg tablet 20 mg PO QHS DEPRESSION 03/2905/31/24 History levothyroxine 25 mcg tablet 25 mcg PO DAILY thyroid 04/06/24 07:00 History lovastatin 40 mg tablet 40 mg PO QHS cholesterol 12/1505/31/24 History ropinirole 2 mg tablet 2 mg PO QHS RLS 06/25/2301/18 History glucosamine 375 kr-dymwfnxog-ski 3 tab PO DAILY joints 08/02/23 05/31/24 History no1 500 mg-C 15 mg-gianni 0.5 mg tablet (Cikpnjuckcv-Idslqpqgntr-MOH Complex) metformin 500 mg tablet 500 mg PO BID dm 08/02/23 History cranberry fruit 400 mg capsule 400 mg PO DAILY health 11/03/23 05/31/24 History vitamin B complex 1 tab PO DAILY health 05/31/24 History budesonide 0.5 mg/2 mL suspension 0.5 mg inhalation Q1 2H PRN PRN 03/23/24 Unknown History for nebulization breathing finerenone 10 mg tablet (Kerendia) 10 mg PO DAILY heal th 05/18/24 05/31/24 History ipratropium bromide 42 mcg (0.06 2 spray intranasal DA JAYDE sob 06/19/24 Unknown History %) nasal spray levalbuterol tartrate 45 1 puff inhalation Q4H PRN Unknown History mcg/actuation aerosol inhaler shortness of breath polysaccharide iron complex 150 mg 150 mg PO QDAY anem ia 06/19/24 Unknown History iron capsule (Ferrex) ascorbate calcium (vitamin C) 500 1 g PO DAILY health 12/22/24 Unknown History mg tablet coenzyme Q10 100 mg capsule 50 mg PO DAILY health 11/26 05/21 Unknown History (CoQ-10) echinacea 500 mg capsule 1,000 mg PO DAILY health Unknown History melatonin 10 mg capsule 10 mg PO QHS sleep 12/22/24 Unknown History Allergy/AdvReac Type Severity Reaction Status Date / Time cephalexin monohydrate (From Allergy Swelling Verified 01/26/25 14:38 Keflex) ibuprofen Allergy Swelling Verified 01/26/25 14:38 oxaprozin (From Daypro) Allergy Swelling Verified 01/26/25 14:38 tramadol HCl (From Ultram) Allergy Swelling Verified 01/26/25 14:38 albuterol AdvReac Intermediate Other Verified 01/26/25 14:38 celecoxib (From Celebrex) AdvReac DIZZY AND Verified 01/26/25 14:38 HURTS AROUND MY LIVER Family History Other Diabetes Hypertension Surgical History Hx of bilateral cataract extraction History of cystoscopy Hx of umbilical hernia repair History of carpal tunnel surgery of left wrist Hx of tonsillectomy Hx of colonoscopy History of ureter stent Social History household members: children housing: house Smoking Status: Never smoker alcohol intake: never substance use type: does not use Physical Exam Const alert, oriented x3 and no apparent distress Constitutional Narrative: Left 5th toe with ulceration plantar sulcus down to flexor tendon, no probe to bone, tissues are healthy, viable and granular, there is some some maloder and some serous drainage, there is no visibleabscess, no fluctuance, no crepitus, no necrosis, there is erythema to the left 5th toe and extendsdorsally to the forefoot but appears to be improving, no other open lesions bilateral foot. She notes to some POP to the left 5th toe but she relates it is definitely feeling better than yesterday. No other POP or pain on ROM to foot or ankle bilateral. No evidence of acute ischemia bilateral foot.There is palpable pedal pulses bilateral. Diffuse chronic appearing LE edema. Chronic contracture of lesser toes bilateral. DJD to the foot bilateral. Sensation is some diminished to foot - left. Lab / Micro Data 05/11/25 06:28 05/11/25 06:28 Labs: Laboratory Results - last 24 hr 05/10/25 14:55: WBC 11.6 H, RBC 3.58 L, Hgb 10.9 L, Hct 33.8 L, MCV 94.4, MCH 30.4, MCHC 32.2, RDW Std Deviation 52.8 H, RDW Coeff of Cecil 15.2 H, Plt Count 210, MPV 10.2, Immature Gran % (Auto) 0.800, Neut % (Auto) 68.1, Lymph % (Auto) 17.4 L, Darke % (Auto) 6.7, Eos % (Auto) 6.7 H, Baso % (Auto) 0.3, Absolute Neuts(auto) 7.9 H, Absolute Lymphs (auto) 2.02, Nucleated RBC % 0, Differential Comment SCANNED, Platelet Estimate ADEQUATE, ESR 37 H, Sodium 138, Potassium 3.9, Chloride 101, Carbon Dioxide 23.5, Anion Gap 14, BUN 30 H, Creatinine 1.01,Estim Creat Clear Calc 58.10, Est GFR (MDRD) Non-Af58 L, BUN/Creatinine Ratio 29.8 H, Glucose 152 H, Lactic Acid 1.7, Calcium 9.6, C-React Prot Ext Ran ge 85.00 H, TSH 2.810 05/10/25 22:06: POC Glucose 170 H 05/11/25 06:28: WBC 11.0, RBC 2.96 L, Hgb 8.9 L, Hct 27.8 L, MCV 93.9, MCH 30.1,MCHC 32.0, RDW Std Deviation 52.9 H, RDW Coeff of Cecil 15.1 H, Plt Count 192, MPV9.7, Immature Gran % (Auto) 0.800, Neut% (Auto) 68.5, Lymph % (Auto) 14.5 L, Darke % (Auto) 6.9, Eos % (Auto) 8.9 H, Baso % (Auto) 0.4, Absolute Neuts (auto) 7.5, Absolute Lymphs (auto) 1.59, Nucleated RBC % 0, ESR 26, Sodium 137, Potassium 4.3, Chloride 105, Carbon Dioxide 21.2, Anion Gap 11, BUN 31 H, Creatinine 1.14, Estim Creat ClearCalc 48.66 L, Est GFR (MDRD) Non-Af 50 L, BUN/Creatinine Ratio 27.5 H, Glucose 113 H, Calcium 8.6, C-React Prot Ext Range 98.10 H 05/11/25 06:36: POC Glucose 113 H Imaging Radiology Impression Foot X-Ray 05/10/25 15:20 IMPRESSION: Profound osteopenia, no demonstrated fracture, please see discussion above Polyarticular arthrosis Calcaneal spurs Soft tissue swelling Reading Location: [id number] 05/11/25 0949 Cosigner Signature (if applicable): CC: Dr. Corby Heller MD~ Signed [facility] Dis[facility] summary Author Crow Crabtree [facility] Note Date/Time May 11, 2025 12 :07am [facility] Medical Records Department [address] [facility] [place] [address] Emergency Department Summary 05/10/25 MR#: [id number] Acct: [id number] Name: EDUAR CABRERA Rep #:[id number] : 1950 75 From: Crow Morejon PCP: Dr. Corby Heller MD Status:ADM I N Location: [place] [address] HPI History of Present Illness Chief Complaint: Lower Extremity Injury Informant: patient Narrative Narrative: Presents worsening pain redness swelling left lateral foot over the last 2 days. Diabetic with neuropathy. She is followed by Dr. Geiger. She reports a weekago was in the office for toenail clipping. She states she had pain lateral foot, she states she was provided a cushion pad. She states there is no rednessat that time. Symptoms started last 2 days. Denies fever or chills. Denies cough. She allergy to Keflex causing trouble breathing however is done penicillin in the past. Denies trauma. Prior similar symptoms: No PFSH PFSH Medical History History of ESBL Klebsiella [...] Fibromyalgia Foot arch pain COVID-19 Home Medications ?Medication ?Instructions ?Recorded ?Last Taken ?Type fluticasone propionate 50 2 spray NASAL DAILY allergie s 12/07/16 05/31/24 History mcg/actuation nasal spray,suspension citalopram 20 mg tablet 20 mg PO QHS DEPRESSION 03/2905/31/24 History levothyroxine 25 mcg tablet 25 mcg PO DAILY thyroid 04/06/24 07:00 History lovastatin 40 mg tablet 40 mg PO QHS cholesterol 12/1505/31/24 History ropinirole 2 mg tablet 2 mg PO QHS RLS 06/25/2301/18 History glucosamine 375 cc-krsouiwsy-ppb 3 tab PO DAILY joints 08/02/23 05/31/24 History no1 500 mg-C 15 mg-gianni 0.5 mg tablet (Hdojbvuhhod-Gsnuqhjwsxm-GFA Complex) metformin 500 mg tablet 500 mg PO BID dm 08/02/23 History cranberry fruit 400 mg capsule 400 mg PO DAILY health 11/03/23 05/31/24 History vitamin B complex 1 tab PO DAILY health 05/31/24 History budesonide 0.5 mg/2 mL suspension 0.5 mg inhalation Q1 2H PRN PRN 03/23/24 Unknown History for nebulization breathing finerenone 10 mg tablet (Kerendia) 10 mg PO DAILY heal th 05/18/24 05/31/24 History ipratropium bromide 42 mcg (0.06 2 spray intranasal DA JAYDE sob 06/19/24 Unknown History %) nasal spray levalbuterol tartrate 45 1 puff inhalation Q4H PRN Unknown History mcg/actuation aerosol inhaler shortness of breath polysaccharide iron complex 150 mg 150 mg PO QDAY anem ia 06/19/24 Unknown History iron capsule (Ferrex) ascorbate calcium (vitamin C) 500 1 g PO DAILY health 12/22/24 Unknown History mg tablet coenzyme Q10 100 mg capsule 50 mg PO DAILY health 11/26 05/21 Unknown History (CoQ-10) echinacea 500 mg capsule 1,000 mg PO DAILY health Unknown History melatonin 10 mg capsule 10 mg PO QHS sleep 12/22/24 Unknown History Allergy/AdvReac Type Severity Reaction Status Date / Time cephalexin monohydrate (From Allergy Swelling Verified 01/26/25 14:38 Keflex) ibuprofen Allergy Swelling Verified 01/26/25 14:38 oxaprozin (From Daypro) Allergy Swelling Verified 01/26/25 14:38 tramadol HCl (From Ultram) Allergy Swelling Verified 01/26/25 14:38 albuterol AdvReac Intermediate Other Verified 01/26/25 14:38 celecoxib (From Celebrex) AdvReac DIZZY AND Verified 01/26/25 14:38 HURTS AROUND MY LIVER Family History Other [...] type: does not use ROS ROS ED Constitutional Constitutional ED: Denies fever(s) Cardiovascular Cardiovascular: Denies chest pain Respiratory/Chest Respiratory/Chest: Denies cough Gastrointestinal Gastrointestinal: Denies diarrhea or vomiting Musculoskeletal Musculoskeletal: Reports other Details: Left foot pain and swelling. Integumentary Denies rash Neurologic Neurologic: Denies weakness EXAM Physical Exam Const Vital Signs: 05/10/25 14:51 05/10/25 14:56 05/10/25 15:56 Temperature 99.2 F H 99.2 F H 99.1 F Temperature Source Oral Oral Oral Pulse Rate 87 79 81 Respiratory Rate 17 20 H 20 H Blood Pressure 138/76 H 114/51 L 151/125 H Blood Pressure Mean 96 72 133 Pulse Ox 96 99 95 Oxygen Delivery Method Room Air Room Air Room Air 05/10/25 16:00 05/10/25 17:00 05/10/25 18:00 Temperature 98.4 F 98.7 F 98.4 F Temperature Source Oral Oral Oral Pulse Rate 85 91 85 Respiratory Rate 16 22 H 22 H Blood Pressure 131/88 H 155/120 H 141/68 H Blood Pressure Mean 102 131 92 Pulse Ox 96 96 94 Oxygen Delivery Method Room Air Room Air Room Air Positive well nourished and well developed General Appearance ED: well developed and NAD HEENT Reports moist mucous membranes normocephalic and atraumatic Eyes General Eye ED: Yes normal appearance of both eyes Neck full ROM Chest Wall Chest: Negative for tenderness Resp normal respiratory effort and normal air movement Effort and Inspection: symmetric chest movement; Negative for respiratory distress Cardio regular rate, regular rhythm and no murmurs Peripheral Pulses: pulses 2+ throughout GI normal to inspection, nondistended, normoactive bowel sounds and non-tender Palpation: Negative for guarding or rebound tenderness present Extremity Extremity Narrative: Left lower extremity: No ankle tenderness. Foot examination there was swelling of the fifth digit erythema extending to the distal fifth metatarsal. There wascallus at the distal lateral metatarsal of the fifth digit. There is no open wounds. No streaking noted. General Extremety ED: Yes edema and tenderness General Extremity: edema Neuro oriented x3 and no sensory deficits noted Sensorium / Orientation: awake and alert Skin no rashes or lesions noted and no wounds MDM MDM MDM Narrative Medical decision making narrative: Interventions / MDM: Differential diagnosis: Diabetic left foot cellulitis, narrow complex tachycardia Diagnosis considered but do not suspect: N/A My EKG interpretation: At 1511: Narrow complex tachycardia rate of 136. Howeverspacing appears more with a heart rate of 150 abruptly changing to sinus rhythm. EKG #2 at 1512: Sinus rate of 78, first-degree AV block, no ST or T wave changes. QTc 440. Imaging independently reviewed and interpreted by myself: Three-view x-ray left foot: Soft tissue swelling no clear fractures noted. No radiopaque foreign bodies. Also read by radiology. External documents reviewed: N/A Test considered but not ordered:N/A ED course: Patient diabetic foot cellulitis with swelling over the last 2 days. No open wounds. She has no fever or chills. Temp at 99.2 on arrival. Blood pressure stable. Laboratory studies including inflammatory markers. X-ray leftfoot ordered. No reported while on the monitor she had a run of tachycardia in the 140s. I did review the monitor appeared to be narrow complex tachycardia that was abrupt. Strips were printed out. EKG ordered. While obtaining EKG narrow complex tachycardia was picked up abruptly back to sinus rhythm. Rate was appears more 150s. Likely too slow for SVT, possibilityof a flutter. Repeat EKG right afterwards with sinus rhythm first-degree AV block. Patient denies any feelings of racing heart palpitations during these events. 1630: CRP 85 creatinine 1.01 TSH normal 2.8. Awaiting CBC. I will start Zosyn and vancomycin due to cellulitis concerns. 1755: Called to patient's room 10 minutes after vancomycin being started*given flushing reported some shortness of breath. There is no lip or tongue swelling. There was slight flushing to the face and upper torso. Vancomycin was stopped. She is unclear if she has been given this before. IV Benadryl 50 mg ordered. White count returned 11.6 ESR also elevated at 37. 1825: I did send pictures through backline to canvas cutter hand Dr. Bhardwaj along with discussion on the phone. Agrees with admission with IV antibiotics. He would like MRI in the hospital. He will follow. 1830: I spoke with hospitalist Dr. Lopez discussed patient's history of findings along with cardiac dysrhythmia. Discussed red man syndrome. I discussed that cardiology on page for discussion of the transient rhythms that patient is asymptomatic. 1850: I spoke with shank maker Dr. Dinh, sent EKG and rhythm strips to him on backline. He reviewed this. Agrees this is likely SVT with abrupt change to normal sinus rhythm. He recommends monitoring as she is asymptomatic. This wasrelayed to hospitalist. Re-evaluation: stable Disposition discussed with patient/family/significant other: Patient Case discussed with consulting clinician: Podiatry, hospitalist, cardiology This note was generated with Nanushka dictation software. It may contain incorrectwords, spelling, and punctuation that were not noted in checking the note beforesigning. Lab Data Labs: Laboratory Results - last 24 hr 05/10/25 14:55 WBC 11.6 H RBC 3.58 L Hgb 10.9 L Hct 33.8 L MCV 94.4 MCH 30.4 MCHC 32.2 RDW Std Deviation 52.8 H RDW Coeff of Cecil 15.2 H Plt Count 210 MPV 10.2 Immature Gran % (Auto) 0.800 Neut % (Auto) 68.1 Lymph % (Auto) 17.4 L Darke % (Auto) 6.7 Eos % (Auto) 6.7 H Baso % (Auto) 0.3 Absolute Neuts (auto) 7.9 H Absolute Lymphs (auto) 2.02 Nucleated RBC % 0 Differential Comment SCANNED Platelet Estimate ADEQUATE ESR 37 H Sodium 138 Potassium 3.9 Chloride 101 Carbon Dioxide 23.5 Anion Gap 14 BUN 30 H Creatinine 1.01 Estim Creat Clear Calc 58.10 Est GFR (MDRD) Non-Af 58 L BUN/Creatinine Ratio 29.8 H Glucose 152 H Lactic Acid 1.7 Calcium 9.6 C-React Prot Ext Range 85.00 H TSH 2.810 Radiography Diagnostic Testing: Clinical Impression(s) from Imaging Studies Foot X-Ray 05/10/25 15:20 IMPRESSION: Profound osteopenia, no demonstrated fracture, please see discussion above Polyarticular arthrosis Calcaneal spurs Soft tissue swelling Reading Location: [id number] Discharge Plan Dx/Rx/DC Orders Clinical Impression: Cellulitis of foot, left, History of diabetes mellitus, Paroxysmal supraventricular tachycardia Disposition Disposition: Acute Care Hospital [facility] Discharge Date/Time: 05/10/25 20:15 What to do if you have Problems For any increased pain, shortness of breath, bleeding, nausea or vomiting, chestpain, or any unexpected problems, contact your Primary Care Provider. Call [facility] ([phone]) or report to the closest Emergency Room. Call 911 if necessary. 05/11/25 0007 <Electronically signed by Crow Morejon> Cosigner Signature (if applicable): CC: Dr. Corby Heller MD ~ Signed [facility] Work Phone: [phone] Discharge summary [facility] Medical Records Department [address] [place] [address] Emergency Department Summary 05/10/25 MR#: [id number] Acct: [id number] Name: EDUAR CABRERA Rep #:[id number] : 1950 75 From: Crow Morejon PCP: Dr. Corby Heller MD Status:ADM I N Location: [address] History of Present Illness Chief Complaint: Lower Extremity Injury Informant: patient Narrative Narrative: Presents worsening pain redness swelling left lateral foot over the last 2 days. Diabetic with neuropathy. She is followed by Dr. Geiger. She reports a weekago was in the office for toenail clipping. She states she had pain lateral foot, she states she was provided a cushion pad. She states thereis no rednessat that time. Symptoms started last 2 days. Denies fever or chills. Denies cough. She a llergy to Keflex causing trouble breathing however is done penicillin in the past. Denies trauma. Prior similar symptoms: No PFSH PFSH Medical History History of ESBL Klebsiella [...] Fibromyalgia Foot arch pain COVID-19 Home Medications ?Medication ?Instructions ?Recorded ?Last Taken ?Type fluticasone propionate 50 2 spray NASAL DAILY allergie s 12/07/16 05/31/24 History mcg/actuation nasal spray,suspension citalopram 20 mg tablet 20 mg PO QHS DEPRESSION 03/2905/31/24 History levothyroxine 25 mcg tablet 25 mcg PO DAILY thyroid 04/06/24 07:00 History lovastatin 40 mg tablet 40 mg PO QHS cholesterol 12/1505/31/24 History ropinirole 2 mg tablet 2 mg PO QHS RLS 06/25/2301/18 History glucosamine 375 gp-sflkldppp-xvp 3 tab PO DAILY joints 08/02/23 05/31/24 History no1 500 mg-C 15 mg-gianni 0.5 mg tablet (Ryxsexaonnw-Yszejmniizt-TTH Complex) metformin 500 mg tablet 500 mg PO BID dm 08/02/23 History cranberry fruit 400 mg capsule 400 mg PO DAILY health 11/03/23 05/31/24 History vitamin B complex 1 tab PO DAILY health 05/31/24 History budesonide 0.5 mg/2 mL suspension 0.5 mg inhalation Q1 2H PRN PRN 03/23/24 Unknown History for nebulization breathing finerenone 10 mg tablet (Kerendia) 10 mg PO DAILY heal th 05/18/24 05/31/24 History ipratropium bromide 42 mcg (0.06 2 spray intranasal DA JAYDE sob 06/19/24 Unknown History %) nasal spray levalbuterol tartrate 45 1 puff inhalation Q4H PRN Unknown History mcg/actuation aerosol inhaler shortness of breath polysaccharide iron complex 150 mg 150 mg PO QDAY anem ia 06/19/24 Unknown History iron capsule (Ferrex) ascorbate calcium (vitamin C) 500 1 g PO DAILY health 12/22/24 Unknown History mg tablet coenzyme Q10 100 mg capsule 50 mg PO DAILY health 11/26 05/21 Unknown History (CoQ-10) echinacea 500 mg capsule 1,000 mg PO DAILY health Unknown History melatonin 10 mg capsule 10 mg PO QHS sleep 12/22/24 Unknown History Allergy/AdvReac Type Severity Reaction Status Date / Time cephalexin monohydrate (From Allergy Swelling Verified 01/26/25 14:38 Keflex) ibuprofen Allergy Swelling Verified 01/26/25 14:38 oxaprozin (From Daypro) Allergy Swelling Verified 01/26/25 14:38 tramadol HCl (From Ultram) Allergy Swelling Verified 01/26/25 14:38 albuterol AdvReac Intermediate Other Verified 01/26/25 14:38 celecoxib (From Celebrex) AdvReac DIZZY AND Verified 01/26/25 14:38 HURTS AROUND MY LIVER Family History Other [...] type: does not use ROS ROS ED Constitutional Constitutional ED: Denies fever(s) Cardiovascular Cardiovascular: Denies chest pain Respiratory/Chest Respiratory/Chest: Denies cough Gastrointestinal Gastrointestinal: Denies diarrhea or vomiting Musculoskeletal Musculoskeletal: Reports other Details: Left foot pain and swelling. Integumentary Denies rash Neurologic Neurologic: Denies weakness EXAM Physical Exam Const Vital Signs: 05/10/25 14:51 05/10/25 14:56 05/10/25 15:56 Temperature 99.2 F H 99.2 F H 99.1 F Temperature Source Oral Oral Oral Pulse Rate 87 79 81 Respiratory Rate 17 20 H 20 H Blood Pressure 138/76 H 114/51 L 151/125 H Blood Pressure Mean 96 72 133 Pulse Ox 96 99 95 Oxygen Delivery Method Room Air Room Air Room Air 05/10/25 16:00 05/10/25 17:00 05/10/25 18:00 Temperature 98.4 F 98.7 F 98.4 F Temperature Source Oral Oral Oral Pulse Rate 85 91 85 Respiratory Rate 16 22 H 22 H Blood Pressure 131/88 H 155/120 H 141/68 H Blood Pressure Mean 102 131 92 Pulse Ox 96 96 94 Oxygen Delivery Method Room Air Room Air Room Air Positive well nourished and well developed General Appearance ED: well developed and NAD HEENT Reports moist mucous membranes normocephalic and atraumatic Eyes General Eye ED: Yes normal appearance of both eyes Neck full ROM Chest Wall Chest: Negative for tenderness Resp normal respiratory effort and normal air movement Effort and Inspection: symmetric chest movement; Negative for respiratory distress Cardio regular rate, regular rhythm and no murmurs Peripheral Pulses: pulses 2+ throughout GI normal to inspection, nondistended, normoactive bowel sounds and non-tender Palpation: Negative for guarding or rebound tenderness present Extremity Extremity Narrative: Left lower extremity: No ankle tenderness. Foot examination there was swelling of the fifth digit erythema extending to the distal fifth metatarsal. There wascallus at the distal lateral metatarsal of the fifth digit. There is no open wounds. No streaking noted. General Extremety ED: Yes edema and tenderness General Extremity: edema Neuro oriented x3 and no sensory deficits noted Sensorium / Orientation: awake and alert Skin no rashes or lesions noted and no wounds MDM MDM MDM Narrative Medical decision making narrative: Interventions / MDM: Differential diagnosis: Diabetic left foot cellulitis, narrow complex tachycardia Diagnosis considered but do not suspect: N/A My EKG interpretation: At 1511: Narrow complex tachycardia rate of 136. Howeverspacing appears morewith a heart rate of 150 abruptly changing to sinus rhythm. EKG #2 at 1512: Sinus rate of 78, first-degree AV block, no ST or T wave changes. QTc 440. Imaging independently reviewed and interpreted by myself: Three-view x-ray left foot: Soft tissue swelling no clear fractures noted. No radiopaque foreign bodies. Also read by radiology. External documents reviewed: N/A Test considered but not ordered:N/A ED course: Patient diabetic foot cellulitis with swelling over the last 2 days. No open wounds. Shehas no fever or chills. Temp at 99.2 on arrival. Blood pressure stable. Laboratory studies including inflammatory markers. X-ray leftfoot ordered. No reported while on the monitor she had a run of tachycardia in the 140s. I did review the monitorappeared to be narrow complex tachycardia that was abrupt. Strips were printed out. EKG ordered. While obtaining EKG narrow complex tachycardia was picked up abruptly back to sinus rhythm. Rate was appears more 150s. Likely too slow for SVT, possibilityof a flutter. Repeat EKG right afterwards with sinus rhythm first-degree AV block. Patient denies any feelings of racing heart palpitations during these events. 1630: CRP 85 creatinine 1.01 TSH normal 2.8. Awaiting CBC. I will start Zosyn and vancomycin due tocellulitis concerns. 175: Called to patient's room 10 minutes after vancomycin being started*given flushing reported some shortness of breath. There is no lip or tongue swelling. There was slight flushing to the face and upper torso. Vancomycin was stopped. She is unclear if she has been given this before. IV [id number] mg ordered. White count returned 11.6 ESR also elevated at 37. 182: I did send pictures through backline to canvas cutter hand Dr. Bhardwaj along with discussion on the phone. Agrees with admission with IV antibiotics. He would like MRI in the hospital. He will follow. 183: I spoke with hospitalist Dr. Lopez discussed patient's history of findings along with cardiac dysrhythmia. Discussed red man syndrome. I discussed that cardiology on page for discussion of the transient rhythms that patient is asymptomatic. 1850: I spoke with shank maker Dr. Dinh, sent EKG and rhythm strips to him on backline. He reviewed this. Agrees this is likely SVT with abrupt change to normal sinus rhythm. He recommends monitoring as she is asymptomatic. This wasrelayed to hospitalist. Re-evaluation: stable Disposition discussed with patient/family/significant other: Patient Case discussed with consulting clinician: Podiatry, hospitalist, cardiology This note was generated with Nanushka dictation software. It may contain incorrectwords, spelling, and punctuation that were not noted in checking the note beforesigning. Lab Data Labs: Laboratory Results - last 24 hr 05/10/25 14:55 WBC 11.6 H RBC 3.58 L Hgb 10.9 L Hct 33.8 L MCV 94.4 MCH 30.4 MCHC 32.2 RDW Std Deviation 52.8 H RDW Coeff of Cecil 15.2 H Plt Count 210 MPV 10.2 Immature Gran % (Auto) 0.800 Neut % (Auto) 68.1 Lymph % (Auto) 17.4 L Darke % (Auto) 6.7 Eos % (Auto) 6.7 H Baso % (Auto) 0.3 Absolute Neuts (auto) 7.9 H Absolute Lymphs (auto) 2.02 Nucleated RBC % 0 Differential Comment SCANNED Platelet Estimate ADEQUATE ESR 37 H Sodium 138 Potassium 3.9 Chloride 101 Carbon Dioxide 23.5 Anion Gap 14 BUN 30 H Creatinine 1.01 Estim Creat Clear Calc 58.10 Est GFR (MDRD) Non-Af 58 L BUN/Creatinine Ratio 29.8 H Glucose 152 H Lactic Acid 1.7 Calcium 9.6 C-React Prot Ext Range 85.00 H TSH 2.810 Radiography Diagnostic Testing: Clinical Impression(s) from Imaging Studies Foot X-Ray 05/10/25 15:20 IMPRESSION: Profound osteopenia, no demonstrated fracture, please see discussion above Polyarticular arthrosis Calcaneal spurs Soft tissue swelling Reading Location: [facility] Discharge Plan Dx/Rx/DC Orders Clinical Impression: Cellulitis of foot, left, History of diabetes mellitus, Paroxysmal supraventricular tachycardia Disposition Disposition: Acute Care Hospital [facility] Discharge Date/Time: 05/10/25 20:15 What to do if you have Problems For any increased pain, shortness of breath, bleeding, nausea or vomiting, chestpain, or any unexpected problems, contact your Primary Care Provider. Call [facility] ([phone]) or report tothe closest Emergency Room. Call 911 if necessary. 05/11/256 Cosigner Signature (if applicable): CC: Dr. Corby Heller MD ~ Signed [facility]08-14-2025 History and physical note Author Holly Lopez [facility] Note Date/Time May 10, 2025 6: 59pm [facility] Medical Records Department [address] [place] [address] H&P Exam - Hospitalist 05/10/25 1842 MR#: [id number] Acct: [id number] Name: EDUAR CABRERA Rep #:[id number] : 1950 75 From: Holly Lopez MD PCP: Dr. Corby Heller MD Status:ADM I N Location: [facility] [id number] HPI - General General Date of Admission: 05/10/25 Date of Service: 05/10/25 Chief Complaint: Left toe pain and swelling [facility] Narrative EDUAR CABRERA, is a 75-year-old female with a history of SUSAN, depression, hypothyroidism, restless leg syndrome, diabetes, asthma presented [facility] ED 05/10/2025 with worsening pain, redness, and swelling to her left lateral foot over the past 2 days. She is followed by Dr. Juanjo stanton week ago was in the office for toenail clipping and then over the past 2 days she developed the redness and swelling. In the ED temp 99.2, heart rate 87 witha blood pressure 138/76, respiratory rate 17 and pulse ox 96% on room air. BMP with a BUN of 38 and a creatinine of 1.01, glucose 152, CBC with white blood cell count 11.6, hemoglobin 10.9. TSH within normal limits and lactic acid 1.7. CRP 85 and ESR 37. Foot x- ray with soft tissue swelling. Given patient's symptoms, her history of diabetes and her elevated inflammatory markers canvas cutter hand contacted and recommended admission, likely MRI, antibiotics and theywill see in consult. Patient received Zosyn and then when vancomycin was running she had episode of red man syndrome, Benadryl given with plans to restart vancomycin at lower rate. Hospitalist contacted for admission. Also ofnote patient had short bursts of tachycardia with rate 130s to 150s that were completely asymptomatic. ED physician reviewed with shank maker on-call and itwas felt that this was likely brief SVT and no indication for treatment at this time. Patient evaluated bedside. She reports the pain in her lateral left footand the erythema that began spreading to her foot. She reports she has been tired and fatigued and not moving around much because of the pain. No fevers athome that she notes. Has chronic cough but nothing changed. No changes in her breathing, no chest pain [facility] Medical History History of ESBL Klebsiella pneumoniae [...] Fibromyalgia Foot arch pain COVID-19 Home Medications ?Medication ?Instructions ?Recorded ?Last Taken ?Type fluticasone propionate 50 2 spray NASAL DAILY allergie s 12/07/16 05/31/24 History mcg/actuation nasal spray,suspension citalopram 20 mg tablet 20 mg PO QHS DEPRESSION 03/2905/31/24 History levothyroxine 25 mcg tablet 25 mcg PO DAILY thyroid 04/06/24 07:00 History lovastatin 40 mg tablet 40 mg PO QHS cholesterol 12/1505/31/24 History ropinirole 2 mg tablet 2 mg PO QHS RLS 06/25/2301/18 History glucosamine 375 ap-dbhujjmiu-jpd 3 tab PO DAILY 05/31/24 History no1 500 mg-C 15 mg-gianni 0.5 mg tablet (Obhckrhmcua-Ghjfhuvinef-LOR Complex) metformin 500 mg tablet 500 mg PO BID 08/02/2305/31 History cranberry fruit 400 mg capsule 400 mg PO DAILY 4 05/31/24 History vitamin B complex 1 tab PO DAILY 11/23/2301/18 History budesonide 0.5 mg/2 mL suspension 0.5 mg inhalation Q1 2H PRN PRN 03/23/24 Unknown History for nebulization breathing finerenone 10 mg tablet (Kerendia) 10 mg PO DAILY 04/2805/31/24 History oxycodone-acetaminophen 5 mg-325 1 tab PO Q8H PRN pain 3 days #10 06/01/24 Unknown Rx mg tablet (Percocet) tabs ipratropium bromide 42 mcg (0.06 2 spray intranasal DA JAYDE 06/19/24 Unknown History %) nasal spray levalbuterol tartrate 45 1 puff inhalation Q4H PRN Unknown History mcg/actuation aerosol inhaler shortness of breath polysaccharide iron complex 150 mg 150 mg PO QDAY 05/29 12/18 Unknown History iron capsule (Ferrex) vibegron 75 mg tablet (Gemtesa) 75 mg PO QDAY 08/11/24 Unknown History ascorbate calcium (vitamin C) 500 1 g PO DAILY 5 Unknown History mg tablet coenzyme Q10 100 mg capsule 50 mg PO DAILY 12/22/24 Un known History (CoQ-10) echinacea 500 mg capsule 1,000 mg PO DAILY 12/22/24 U nknown History melatonin 10 mg capsule 10 mg PO QHS 12/22/24 Unknow n History prednisone 20 mg tablet 40 mg (2 x 20 mg) PO DAILY 4 days 01/01/25 Unknown Rx #8 tabs Allergy/AdvReac Type Severity Reaction Status Date / Time cephalexin monohydrate (From Allergy Swelling Verified 01/26/25 14:38 Keflex) ibuprofen Allergy Swelling Verified 01/26/25 14:38 oxaprozin (From Daypro) Allergy Swelling Verified 01/26/25 14:38 tramadol HCl (From Ultram) Allergy Swelling Verified 01/26/25 14:38 albuterol AdvReac Intermediate Other Verified 01/26/25 14:38 celecoxib (From Celebrex) AdvReac DIZZY AND Verified 01/26/25 14:38 HURTS AROUND MY LIVER Family History Other [...] use type: does not use ROS ROS Narrative General: Denies fever/chills but currently does feel quite cold HENT: Denies headache, denies stuffy nose, denies sore throat EYES: Denies changes in vision Resp: D some chronic cough, denies shortness of breath Cardiac: Denies chest pain GI: Denies abdominal pain, denies changes in bowel, denies nausea/vomiting : Denies changes in urination Extremity: Denies swelling MSK: Some generalized weakness and fatigue Neuro: Denies any new numbness/tingling Heme: Denies any bleeding or bruising Skin: Erythema on left pinky toe going up towards foot Psychiatric: No complaints voiced Vital Signs Vital Signs Vital Signs: 05/10/25 14:51 05/10/25 14:56 05/10/25 15:56 Temperature 99.2 F H 99.2 F H 99.1 F Temperature Source Oral Oral Oral Pulse Rate 87 79 81 Respiratory Rate 17 20 H 20 H Blood Pressure 138/76 H 114/51 L 151/125 H Blood Pressure Mean 96 72 133 Pulse Ox 96 99 95 Oxygen Delivery Method Room Air Room Air Room Air Weight Weight: 119 kg Body Mass Index (BMI) 47.9 Physical Exam Narrative General: Alert, oriented HEENT: Atraumatic, normocephalic Eyes: Anicteric, normal conjunctiva, extraocular movements grossly intact Neck: Supple Respiratory: Clear to auscultation bilaterally, normal respiratory effort Cardiovascular: Regular rate and rhythm GI: Soft, nontender, nondistended Extremities: No significant pitting edema Musculoskeletal: Moving all extremities Neuro: No overt focal neurological deficits Skin: Erythema of left fifth toe going on to the dorsum and wrapping around to the bottom, tenderness more at base of second metatarsal, no open or draining areas Psych: Cooperative Results Lab / Micro Data 05/10/25 14:55 05/10/25 14:55 Labs: Laboratory Results - last 24 hr 05/10/25 14:55: WBC 11.6 H, RBC 3.58 L, Hgb 10.9 L, Hct 33.8 L, MCV 94.4, MCH 30.4, MCHC 32.2, RDW Std Deviation 52.8 H, RDW Coeff of Cecil 15.2 H, Plt Count 210, MPV 10.2, Immature Gran % (Auto) 0.800, Neut % (Auto) 68.1, Lymph % (Auto) 17.4 L, Darke % (Auto) 6.7, Eos % (Auto) 6.7 H, Baso % (Auto) 0.3, Absolute Neuts(auto) 7.9 H, Absolute Lymphs (auto) 2.02, Nucleated RBC % 0, Differential Comment SCANNED, Platelet Estimate ADEQUATE, ESR 37 H, Sodium 138, Potassium 3.9, Chloride 101, Carbon Dioxide 23.5, Anion Gap 14, BUN 30 H, Creatinine 1.01,Estim Creat Clear Calc 58.10, Est GFR (MDRD) Non-Af 58 L, BUN/Creatinine Ratio 29.8 H, Glucose 152 H, Lactic Acid 1.7, Calcium 9.6, C-React Prot Ext Range 85.00 H, TSH 2.810 Imaging Radiology Impression Foot X-Ray 05/10/25 15:20 IMPRESSION: Profound osteopenia, no demonstrated fracture, please see discussion above Polyarticular arthrosis Calcaneal spurs Soft tissue swelling Reading Location: [facility] Assessment & Plan Assessment/Plan (1) Diabetic foot infection: PLAN: Plan # Cellulitis of foot in diabetic patient -Elevated ESR, CRP -X-ray of foot only showed soft tissue swelling ? Continue IV antibiotics ? Podiatry consult - Will order MRI # Intermittent tachycardia -Patient has intermittently had heart rates up to 140s/150?s with narrow complextachycardia that would start and stop quickly, suspected to be slow SVT. EKG right after episode with sinus rhythm with first-degree AV block. Patient asymptomatic during those events -Monitor on telemetry -Echocardiogram -TSH 2.81 - If further episodes or persistent may need to start beta-rivera or consider cardiology consult #Type 2 diabetes mellitus -Glucose checks and sliding scale insulin - Will check A1c in the a.m. #Hypothyroidism -Continue Synthroid #SUSAN -Continue home NIPPV if applicable #Depression/anxiety -Continue home medications # Restless leg syndrome -continue patient's home medication regimen # History of asthma - Budesonide inhaler as needed #Morbid obesity -BMI documented as 48 kg/m? at time of admission -Complicates treatment, prognosis, outcomes -Recommend weight loss and lifestyle changes #DVT ppx: Lovenox SQ twice daily Holly Lopez MD Charges/Coding Visit Charges Inpatient E&M: 50990 Init Hosp L2 05/10/25 1857 <Electronically signed by Holly Lopez MD> Cosigner Signature (if applicable): CC: Dr. Holly Lopez MD; Dr. Corby Heller MD~ Signed [facility] Work Phone: 1(998) [phone] History and physical note [facility] Medical Records Department [address] [place] [address] H&P Exam - Hospitalist 05/10/25 184 MR#: [id number] Acct: [id number] Name: EDUAR CABRERA Rep #:[id number] : 1950 75 From: Holly Lopez MD PCP: Dr. Corby Heller MD Status:ADM I N Location: [facility] [id number]- 1 HPI - General General Date of Admission: 05/10/25 Date of Service: 05/10/25 Chief Complaint: Left toe pain and swelling HPI Narrative EDUAR CABRERA, is a 75-year-old female with a history of SUSAN, depression, hypothyroidism, restless leg syndrome, diabetes, asthma presented [facility] ED 05/10/2025 with worsening pain, redness, and swelling to her left lateral foot over the past 2 days. She is followed by Dr. Juanjo stanton week ago was in the office for toenail clipping and then over the past 2 days she developed the redness and swelling. In the ED temp 99.2, heart rate 87 witha blood pressure 138/76, respiratory rate 17 and pulse ox 96% on room air. BMP with a BUN of 38 and a creatinine of 1.01, glucose 152, CBC with white blood cell count 11.6, hemoglobin 10.9. TSH within normal limits and lactic acid 1.7. CRP 85 and ESR 37. Foot x-ray with soft tissue swelling. Given patient's symptoms, her history of diabetes and her elevated inflammatory markers canvas cutter hand contacted and recommended admission, likely MRI, antibiotics and theywill see in consult. Patient received Zosyn and then when vancomycin was running she had episode of red man syndrome, Benadryl given with plans to restart vancomycin atlower rate. Hospitalist contacted for admission. Also ofnote patient had short bursts of tachycardia with rate 130s to 150s that were completely asymptomatic. ED physician reviewed with shank maker on-call and itwas felt that this was likely brief SVT and no indication for treatment at this time. Patient evaluated bedside. She reports the pain in her lateral left footand the erythema that began spreading to her foot. She reports she has been tired and fatigued and not moving around much because of the pain. No fevers athome that she notes. Has chronic cough but nothing changed. No changes inher breathing, no chest pain PFSH Medical History History of ESBL Klebsiella [...] Fibromyalgia Foot arch pain COVID-19 Home Medications ?Medication ?Instructions ?Recorded ?Last Taken ?Type fluticasone propionate 50 2 spray NASAL DAILY allergie s 12/07/16 05/31/24 History mcg/actuation nasal spray,suspension citalopram 20 mg tablet 20 mg PO QHS DEPRESSION 03/2905/31/24 History levothyroxine 25 mcg tablet 25 mcg PO DAILY thyroid 04/06/24 07:00 History lovastatin 40 mg tablet 40 mg PO QHS cholesterol 12/1505/31/24 History ropinirole 2 mg tablet 2 mg PO QHS RLS 06/25/2301/18 History glucosamine 375 xt-vwwurnzpx-ywp 3 tab PO DAILY 05/31/24 History no1 500 mg-C 15 mg-gianni 0.5 mg tablet (Mhjmybuoklz-Tweyqkyejws-GKD Complex) metformin 500 mg tablet 500 mg PO BID 08/02/2305/31 History cranberry fruit 400 mg capsule 400 mg PO DAILY 4 05/31/24 History vitamin B complex 1 tab PO DAILY 11/23/2301/18 History budesonide 0.5 mg/2 mL suspension 0.5 mg inhalation Q1 2H PRN PRN 03/23/24 Unknown History for nebulization breathing finerenone 10 mg tablet (Kerendia) 10 mg PO DAILY 04/2805/31/24 History oxycodone-acetaminophen 5 mg-325 1 tab PO Q8H PRN pain 3 days #10 06/01/24 Unknown Rx mg tablet (Percocet) tabs ipratropium bromide 42 mcg (0.06 2 spray intranasal DA JAYDE 06/19/24 Unknown History %) nasal spray levalbuterol tartrate 45 1 puff inhalation Q4H PRN Unknown History mcg/actuation aerosol inhaler shortness of breath polysaccharide iron complex 150 mg 150 mg PO QDAY 05/29 12/18 Unknown History iron capsule (Ferrex) vibegron 75 mg tablet (Gemtesa) 75 mg PO QDAY 08/11/24 Unknown History ascorbate calcium (vitamin C) 500 1 g PO DAILY 5 Unknown History mg tablet coenzyme Q10 100 mg capsule 50 mg PO DAILY 12/22/24 Un known History (CoQ-10) echinacea 500 mg capsule 1,000 mg PO DAILY 12/22/24 U nknown History melatonin 10 mg capsule 10 mg PO QHS 12/22/24 Unknow n History prednisone 20 mg tablet 40 mg (2 x 20 mg) PO DAILY 4 days 01/01/25 Unknown Rx #8 tabs Allergy/AdvReac Type Severity Reaction Status Date / Time cephalexin monohydrate (From Allergy Swelling Verified 01/26/25 14:38 Keflex) ibuprofen Allergy Swelling Verified 01/26/25 14:38 oxaprozin (From Daypro) Allergy Swelling Verified 01/26/25 14:38 tramadol HCl (From Ultram) Allergy Swelling Verified 01/26/25 14:38 albuterol AdvReac Intermediate Other Verified 01/26/25 14:38 celecoxib (From Celebrex) AdvReac DIZZY AND Verified 01/26/25 14:38 HURTS AROUND MY LIVER Family History Other [...] use type: does not use ROS ROS Narrative General: Denies fever/chills but currently does feel quite cold HENT: Denies headache, denies stuffy nose, denies sore throat EYES: Denies changes in vision Resp: D some chronic cough, denies shortness of breath Cardiac: Denies chest pain GI: Denies abdominal pain, denies changes in bowel, denies nausea/vomiting : Denies changes in urination Extremity: Denies swelling MSK: Some generalized weakness and fatigue Neuro: Denies any new numbness/tingling Heme: Denies any bleeding or bruising Skin: Erythema on left pinky toe going up towards foot Psychiatric: No complaints voiced Vital Signs Vital Signs Vital Signs: 05/10/25 14:51 05/10/25 14:56 05/10/25 15:56 Temperature 99.2 F H 99.2 F H 99.1 F Temperature Source Oral Oral Oral Pulse Rate 87 79 81 Respiratory Rate 17 20 H 20 H Blood Pressure 138/76 H 114/51 L 151/125 H Blood Pressure Mean 96 72 133 Pulse Ox 96 99 95 Oxygen Delivery Method Room Air Room Air Room Air Weight Weight: 119 kg Body Mass Index (BMI) 47.9 Physical Exam Narrative General: Alert, oriented HEENT: Atraumatic, normocephalic Eyes: Anicteric, normal conjunctiva, extraocular movements grossly intact Neck: Supple Respiratory: Clear to auscultation bilaterally, normal respiratory effort Cardiovascular: Regular rate and rhythm GI: Soft, nontender, nondistended Extremities: No significant pitting edema Musculoskeletal: Moving all extremities Neuro: No overt focal neurological deficits Skin: Erythema of left fifth toe going on to the dorsum and wrapping around to the bottom, tenderness more at base of second metatarsal, no open or draining areas Psych: Cooperative Results Lab / Micro Data 05/10/25 14:55 05/10/25 14:55 Labs: Laboratory Results - last 24 hr 05/10/25 14:55: WBC 11.6 H, RBC 3.58 L, Hgb 10.9 L, Hct 33.8 L, MCV 94.4, MCH 30.4, MCHC 32.2, RDW Std Deviation 52.8 H, RDW Coeff of Cecil 15.2 H, Plt Count 210, MPV 10.2, Immature Gran % (Auto) 0.800, Neut % (Auto) 68.1, Lymph % (Auto) 17.4 L, Darke % (Auto) 6.7, Eos % (Auto) 6.7 H, Baso % (Auto) 0.3, Absolute Neuts(auto) 7.9 H, Absolute Lymphs (auto) 2.02, Nucleated RBC % 0, Differential Comment SCANNED, Platelet Estimate ADEQUATE, ESR 37 H, Sodium 138, Potassium 3.9, Chloride 101, Carbon Dioxide 23.5, Anion Gap 14, BUN 30 H, Creatinine 1.01,Estim Creat Clear Calc 58.10, Est GFR (MDRD) Non-Af58 L, BUN/Creatinine Ratio 29.8 H, Glucose 152 H, Lactic Acid 1.7, Calcium 9.6, C-React Prot Ext Ran ge 85.00 H, TSH 2.810 Imaging Radiology Impression Foot X-Ray 05/10/25 15:20 IMPRESSION: Profound osteopenia, no demonstrated fracture, please see discussion above Polyarticular arthrosis Calcaneal spurs Soft tissue swelling Reading Location: [facility] Assessment & Plan Assessment/Plan (1) Diabetic foot infection: PLAN: Plan # Cellulitis of foot in diabetic patient -Elevated ESR, CRP -X-ray of foot only showed soft tissue swelling ? Continue IV antibiotics ? Podiatry consult - Will order MRI # Intermittent tachycardia -Patient has intermittently had heart rates up to 140s/150?s with narrow complextachycardia that would start and stop quickly, suspected to be slow SVT. EKG right after episode with sinus rhythm withfirst-degree AV block. Patient asymptomatic during those events -Monitor on telemetry -Echocardiogram -TSH 2.81 - If further episodes or persistent may need to start beta-rivera or consider cardiology consult #Type 2 diabetes mellitus -Glucose checks and sliding scale insulin - Will check A1c in the a.m. #Hypothyroidism -Continue Synthroid #SUSAN -Continue home NIPPV if applicable #Depression/anxiety -Continue home medications # Restless leg syndrome -continue patient's home medication regimen # History of asthma - Budesonide inhaler as needed #Morbid obesity -BMI documented as 48 kg/m? at time of admission -Complicates treatment, prognosis, outcomes -Recommend weight loss and lifestyle changes #DVT ppx: Lovenox SQ twice daily Holly Lopez MD Charges/Coding Visit Charges Inpatient E&M: 23178 Init Hosp L2 05/10/25 1855 Cosigner Signature (if applicable): CC: Dr. Holly Lopez MD; Dr. Corby Heller MD~ Signed [facility]08-14-2025 Radiology Diagnostic study note [facility] Imaging Services [address] [place], [place] [address] ([phone] Foot min 3 Views MR#: [id number] Acct: [id number] Name: EDUAR CABRERA Rep #: [id number] : 1950 F 75 From: Sharee Clement MD PCP: Dr. Corby Heller MD Status: REG E R Study:Foot min 3 Views Date of Exam: Exam# [id number] Ordering Dr: Crow Crabtree DO PROCEDURE: FOOT MIN 3 VIEWS 05/10/2025 REASON FOR EXAM: INFECTION TECHNIQUE: FOOT MIN 3 VIEWS Laterality: Left COMPARISON: None FINDINGS: The bones are diffusely demineralized. No demonstrated fracture. However, because of the osteopeniaand overlapping osseous structures, a subtle fracture could be present and overlooked. Calcaneal heel spurs are noted. There is arthritic narrowing at all visualized joint spaces, most notably in thePIP and D IP jointswhere the 2nd through the 4th toes are fixed in flexion. No subchondral changes are noted. There is nonspecific soft tissue swelling but there is no subcutaneous emphysemaor evidence of foreign body RAD/Foot min 3 Views IMPRESSION: Profound osteopenia, no demonstrated fracture, please see discussion above Polyarticular arthrosis Calcaneal spurs Soft tissue swelling Reading Location: [id number] CC: Dr. Corby Heller MD; Dr. 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 acute January 26, 2025 2: 03pm Diabetic foot infection acute A ugust 2024 6:45pm [facility] Work Phone: 1(408) 526-412304-24-2025 Evaluation note* Diagnosis Onset Date Resolution Status Admit Date 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 acute January 18, 2025 2:32pm 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 acute January 26, 2025 2: 03pm Cellulitis of foot, left acute May 10, 2025 6:45pm Cellulitis of left lower limb acute May 10, 2025 6:45pm Diabetic foot infection acute A ugust 2024 6:45pm History of diabetes mellitus acute May 10, 2025 6:45pm Paroxysmal supraventricular tachycardia acute May 10 6:45pm Type 2 diabetes mellitus wit h foot ulcer acute May 10 6:45pm Ulcer of left foot with musc le involvement without evidence of necrosis acute May 10 6:45pm [facility] Work Phone: 1(235) 273-522403-25-2025 Radiology Diagnostic study note [facility] Imaging Services [address] [place] [address] Chest PA and Lateral MR#: [id number] Acct: [id number] Name: EDUAR CABRERA Rep #: [id number] : 1950 F 74 From: Barbara Crabtree MD PCP: Dr. Corby Heller MD Status: REG Marci IBARRA Study:Chest PA and Lateral Date of Exam: 12/18/24 Exam# [id number] Ordering Dr: Corby Heller MD EXAM: XR Chest, 2 Views CLINICAL INDICATION: SOB TECHNIQUE: Frontal and lateral views of the chest. COMPARISON: No relevant prior studies available. FINDINGS: LUNGS AND PLEURAL SPACES: Unremarkable. No consolidation. No pneumothorax. HEART: Unremarkable. No cardiomegaly. MEDIASTINUM: Unremarkable. Normal mediastinal contour. BONES/JOINTS: Unremarkable. No acute fracture. RAD/Chest PA and Lateral IMPRESSION: No acute cardiopulmonary process. [facility] CC: Dr. Corby Hellre MD ~ Lace Winder: Signed [facility]11-15-2024 Evaluation note* Diagnosis Onset Date Resolution Status Admit Date Osteoarthritis of knees, bilateral acute August 11, 024 11:33am Osteoarthritis of knees, bilateral acute August 18 11:31am [facility] Work Phone: 1([phone]) 399-271405-02-2024 Procedure [facility] 01-27-2024 Discharge summary Author Marie Caldera [facility] January 27, 2024 2:15pm Note Date/Time January 27, 2024 11:02a m [facility] Medical Records Department [address] [place] [address] Instructions for Home/Discharge Instructions 01/27/24 1101 MR#: [id number] Acct: [id number] Name: EDUAR CABRERA Rep #:[id number] : [...] 100 mg capsule 50 mg PO DAILY Hvdtzbdwfsg-Rsnqg-YIG Complex 207-245-52-0.5 mg tablet 3 tab PO DAILY Tart [...] CC: Dr. Corby Heller MD ~ Signed [facility] Work Phone: [phone]) [phone] Discharge summary Author Marie Caldera [facility] November 25, 2023 12:26pm Note Date/Time November 25, 2023 12:20pm [facility] Medical Records Department [address] [place] [address] Instructions for Home/Discharge Instructions 11/25/23 1219 MR#: [id number] Acct: [id number] Name: EDUAR CABRERA Rep #:[id number] : [...] 100 mg capsule 50 mg PO DAILY Qwczubvxojn-Vhefl-FSV Complex 052-309-35-0.5 mg tablet 3 tab PO DAILY Tart [...] CC: Dr. Corby Heller MD ~ Signed [facility] Work Phone: 1([phone]) 453-449602-29-2024 Procedure [facility] 11-11-2023 Procedure [facility]11-09-2023 Discharge summary Author Marie Caldera [facility] August 05, 2023 9:16am Note Date/Time August 05, 2023 8 :34am [facility] Medical Records Department [address] [place] [address] Instructions for Home/Discharge Instructions 08/05/23 0833 MR#: [id number] Acct: [id number] Name: EDUAR CABRERA Rep #:[id number] : [...] 100 mg capsule 100 mg PO DAILY Iqkzixnvljm-Bvsee-LBY Complex 076-535-50-0.5 mg tablet 3 tab PO DAILY Tart [...] Order can be placed): Home, Self Care 08/05/23915<Electronically signed by Marie Caldera MD>Marie Caldera MD CC: Dr. Corby Heller MD ~ Signed [facility] Work Phone: [phone]) 268-212210-18-2023 Discharge summary Author Corby Heller [facility] July 14, 2023 7:36pm Note Date/Time July 14, 2023 7 :31pm [facility] Medical Records Department [address] [place] [address] Discharge Summary 07/14/231926 MR#: [id number] Acct: [id number] Name: EDUAR CABRERA Rep #:[id number] : 1950 73 From: Corby Heller MD PCP: Dr. 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 * Allergic [...] on Nitrofurantoin. Discharge home with family 07/15/2023, [facility] PT/OT/CORDON/SW. Physical Exam Const alert [...] Additional Instructions: Discharge home with family 07/15/2023, [facility] PT/OT/C[place]/SW. Please Follow Up With: Marie Caldera MD When: 1 week. Meaningful Use Info Meaningful Use Diagnoses (Choose all that apply): None applicable Discharge Plan Admission Admit Date/Time: 06/30/23 14:43 Primary Reason for Your Visit: Debility. Attending Provider: Corby Heller Chi Primary Care Provider: Corby Heller Chi Consulting Providers: Luis Bhardwaj Instructions Additional Instructions / Restrictions: Discharge home with family 07/15/2023, [facility] PT/OT/C[place]/SW. Discharge Orders/Prescriptions Prescriptions: New polysaccharide iron [...] applicable): CC: Dr. Corby Heller MD~ Signed [facility] Work Phone: [phone]) [phone] Consult note Author Ryann Geiger [facility] July 07, 2023 7:10pm Note Date/Time July 07, 2023 7 :09pm [facility] Medical Records Department [address] [place] [address] Consultation 07/07/23 1847 MR#: [id number] Acct: [id number] Name: EDUAR CABRERA Rep #:[id number] : 1950 73 From: Ryann eastman DPAbdias PCP: Dr. Corby Heller MD Status:ADM I N Location: [place] [address] Assessment & Plan Assessment/Plan (1) Debility: (2) [...] to 3 months. Podiatry to sign off [facility] [phone] HPI Consult Data Date of Consult: 07/07/23 HPI Narrative Reason for Consultation: Thickened, elongated toenails 1-5 bilateral. Ingrown toenail b/l hallux HPI Narrative: EDUAR CABRERA, is a 73 F who presents to [facility] transitional care unit for strength and rehabilitation prior to discharge home secondary to fever, cough, and urinary frequency. She was admitted to [facility] 06/25/2023 for treatment of complicated UTI and [...] in addition to bilateral hallux ingrown toenail. [facility] Medical History (Updated 07/07/23 @ 19:[address] Ryann Geiger DPM) Anemia Anxiety Asthma COVID-19 Depression Diabetes Fibromyalgia [...] L 07/07/23 05:59: POC Glucose 127 H 07/07/23 1910 <Electronically signed by Ryann Geiger DPM> Cosigner Signature (if applicable): CC: CHRISTINA Bhardwaj; Dr. Corby Heller MD~ Signed [facility] Work Phone: [phone]) [phone] Progress note Author Corby Arron [facility] July 01, 2023 5:21pm Note Date/Time July 01, 2023 2: 38pm [facility] Medical Records Department [address] [place] [address] Progress Note - Pharmacy 07/01/23 1408 MR#: [id number] Acct: [id number] Name: EDUAR CABRERA Norbert Rep #:[id number] : 1950 73 From: Elgin Humphrey PCP: Dr. Croby Heller MD Status:ADM I N Location: [place] [address] Documented by User: Elgin Humphrey 07/01/23 15:26 TCU RX Drug Regimen Review [...] 07/01/23 10:00 07/01/23 10:54 Fluticasone 0.05% 1 [place] Nasal.Sry NASAL 2 spray DAILY BARB Administration [...] Tablet 20 Meq PO Not Given DAILYCM BARB Pramipexole Dihydrochloride 1 mg 06/30/23 22:00 06/30/23 [...] User: Dr. Corby Heller MD 07/01/23 17:21 [facility] RX Drug Regimen Review Provider Comments Provider responsibility Provider Comments to Recommendations by Pharmacy: Agree 07/01/23 1526 <Electronically signed by Elgin Humphrey> Elgin Humphrey Cosigner Signature (if applicable): 07/01/23 1721 <Electronically signed by Corby Heller MD> CC: ~ Signed [facility] Work Phone: [phone]) 208-875110-04-2023 History and physical note Author Corby Heller [facility] June 30, 2023 9:36pm Note Date/Time June 30, 2023 9: 28pm [facility] Medical Records Department [address] [place] [address] History & Physical Exam 06/30/232115 MR#: [id number] Acct: [id number] Name: EDUAR CABRERA Rep #:[id number] : 1950 73 From: Corby Heller MD PCP: Dr. Corby Heller MD Status:ADM I N Location: [facility] TCU08-1 HPI - General General Date of Admission: 06/30/23 Date of Service: 06/30/23 Chief Complaint: Here for rehabilitation. HPI Narrative 06/25/2023 EDUAR CABRERA, is a 73 Female who presents to [facility] Emergency Department with fever, cough, urinary frequency. [...] Vancomycin PO for C. diff colitis. 06/29/2023 [facility] for right knee pain. Meropenem to Cefdinir for UTI/Pneumonia. Vancomycin PO for C. Diff colitis. No symptoms for covid-19, no remdesivir, no steroids recommended. 06/30/2023 Admit to TCU with debility, here for rehabilitation, strengthening, prior to discharge home with family. 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 * Allergic Rhinitis [...] applicable): CC: Dr. Corby Heller MD~ Signed [facility] Work Phone: 1([phone]) 822-492711-08-2022 NoteHNO ID: [id number] Author: Grisel Villanueva DO Service: Vascular Surgery Author Type: Physician Type: Progress Notes Filed: 08/31/2022 2:37 PM Note Text: NAME: EDUAR CABRERA [facility] NO: [id number] DATE OF SERVICE: 08/04/2022 Subjective: Eduar is [...] needed. Grisel Villanueva D.O. KB/089 Audio #: [id number] Date Dictated: 08/17/2022 14:07:13 Date Typed: 08/24/2022 05:15:14 Date Revised: 08/24/2022 19:43:54[facility]11-08-2022 NoteHNO ID: [id number] Author: Grisel Villanueva DO Service: ? Author Type: Physician Type: Progress Notes Filed: 08/17/2022 3:07 PM Note Text: This office note has been dictated. [facility] History of Present illness Narrative* Grisel Villanueva DO - 08/04/2022 11:43 AM EST This office note has been dictated. Grisel Villanueva DO documented in this encounterMercy Memorial HospitalDischar summary Author Marie WynesOhio [facility] November 11, 2023 2:06pm Note Date/Time November 11, 2023 2:04pm [facility] Medical Records Department [address] [place] [address] Instructions for Home/Discharge Instructions 11/11/23 1403 MR#: [id number] Acct: [id number] Name: EDUAR CABRERA Rep #:[id number] : [...] 100 mg capsule 100 mg PO DAILY Hnmbkdmuocj-Xcbqy-FOC Complex [id number] mg tablet 3 tab PO DAILY Tart [...] CC: Dr. Corby Heller MD ~ Signed [facility] Work Phone: Evaluation noteNo assessment information available [facility] Work Phone: Evaluation note* Diagnosis Venous (peripheral) insufficiency- Primary Unspecified venous (peripheral) insufficiency [facility] Onset Date Resolution Status [...] lobe pneumonia re solved Septic shock resolved [facility] Work Phone: Evaluation note* Diagnosis Onset Date [...] solved Septic shock resolved Tinea unguium resolved [facility] Work Phone: Evaluation note* Diagnosis Onset Date [...] solved Septic shock resolved Tinea unguium resolved [facility] Work Phone: Evaluation note* Diagnosis Onset Date Resolution Status Kidney stones acute [facility] Work Phone: History and physical note Author Holly Lopez [facility] Note Date/Time May 10, 2025 6: 59pm [facility] Medical Records Department [address] [place] [address] H&P Exam - Hospitalist 05/10/25 1844 MR#: [id number] Acct: [id number] Name: EDUAR CABRERA Rep #:[id number] : 1950 75 From: Holly Lopez MD PCP: Dr. Corby Heller MD Status:ADM I N Location: [place] [address] HPI - General General Date of Admission: 05/10/25 Date of Service: 05/10/25 Chief Complaint: Left toe pain and swelling HPI Narrative EDUAR CABRERA, is a 75-year-old female with a history of SUSAN, depression, hypothyroidism, restless leg syndrome, diabetes, asthma presented [facility] ED 05/10/2025 with worsening pain, redness, and swelling to her left lateral foot over the past 2 days. She is followed by Dr. Geiger maximino week ago was in the office for toenail clipping and then over the past 2 days she developed the redness and swelling. In the ED temp 99.2, heart rate 87 witha blood pressure 138/76, respiratory rate 17 and pulse ox 96% on room air. BMP with a BUN of 38 and a creatinine of 1.01, glucose 152, CBC with white blood cell count 11.6, hemoglobin 10.9. TSH within normal limits and lactic acid 1.7. CRP 85 and ESR 37. Foot x- ray with soft tissue swelling. Given patient's symptoms, her history of diabetes and her elevated inflammatory markers canvas cutter hand contacted and recommended admission, likely MRI, antibiotics and theywill see in consult. Patient received Zosyn and then when vancomycin was running she had episode of red man syndrome, Benadryl given with plans to restart vancomycin at lower rate. Hospitalist contacted for admission. Also ofnote patient had short bursts of tachycardia with rate 130s to 150s that were completely asymptomatic. ED physician reviewed with shank maker on-call and itwas felt that this was likely brief SVT and no indication for treatment at this time. Patient evaluated bedside. She reports the pain in her lateral left footand the erythema that began spreading to her foot. She reports she has been tired and fatigued and not moving around much because of the pain. No fevers athome that she notes. Has chronic cough but nothing changed. No changes in her breathing, no chest pain PFSH Medical History History of ESBL Klebsiella [...] Fibromyalgia Foot arch pain COVID-19 Home Medications ?Medication ?Instructions ?Recorded ?Last Taken ?Type fluticasone propionate 50 2 spray NASAL DAILY allergie s 12/07/16 05/31/24 History mcg/actuation nasal spray,suspension citalopram 20 mg tablet 20 mg PO QHS DEPRESSION 03/2905/31/24 History levothyroxine 25 mcg tablet 25 mcg PO DAILY thyroid 04/06/24 07:00 History lovastatin 40 mg tablet 40 mg PO QHS cholesterol 12/1505/31/24 History ropinirole 2 mg tablet 2 mg PO QHS RLS 06/25/2301/18 History glucosamine 375 uu-kzhyzumac-zls 3 tab PO DAILY 05/31/24 History no1 500 mg-C 15 mg-gianni 0.5 mg tablet (Hlycjmsnhyk-Hbhnuhpqncv-NIN Complex) metformin 500 mg tablet 500 mg PO BID 08/02/2305/31 History cranberry fruit 400 mg capsule 400 mg PO DAILY 4 05/31/24 History vitamin B complex 1 tab PO DAILY 11/23/23/01/18 History budesonide 0.5 mg/2 mL suspension 0.5 mg inhalation Q1 2H PRN PRN 03/23/24 Unknown History for nebulization breathing finerenone 10 mg tablet (Kerendia) 10 mg PO DAILY 04/2805/31/24 History oxycodone-acetaminophen 5 mg-325 1 tab PO Q8H PRN pain 3 days #10 06/01/24 Unknown Rx mg tablet (Percocet) tabs ipratropium bromide 42 mcg (0.06 2 spray intranasal DA JAYDE 06/19/24 Unknown History %) nasal spray levalbuterol tartrate 45 1 puff inhalation Q4H PRN Unknown History mcg/actuation aerosol inhaler shortness of breath polysaccharide iron complex 150 mg 150 mg PO QDAY 05/29 12/18 Unknown History iron capsule (Ferrex) vibegron 75 mg tablet (Gemtesa) 75 mg PO QDAY 08/11/24 Unknown History ascorbate calcium (vitamin C) 500 1 g PO DAILY 5 Unknown History mg tablet coenzyme Q10 100 mg capsule 50 mg PO DAILY 12/22/24 Un known History (CoQ-10) echinacea 500 mg capsule 1,000 mg PO DAILY 12/22/24 U nknown History melatonin 10 mg capsule 10 mg PO QHS 12/22/24 Unknow n History prednisone 20 mg tablet 40 mg (2 x 20 mg) PO DAILY 4 days 01/01/25 Unknown Rx #8 tabs Allergy/AdvReac Type Severity Reaction Status Date / Time cephalexin monohydrate (From Allergy Swelling Verified 01/26/25 14:38 Keflex) ibuprofen Allergy Swelling Verified 01/26/25 14:38 oxaprozin (From Daypro) Allergy Swelling Verified 01/26/25 14:38 tramadol HCl (From Ultram) Allergy Swelling Verified 01/26/25 14:38 albuterol AdvReac Intermediate Other Verified 01/26/25 14:38 celecoxib (From Celebrex) AdvReac DIZZY AND Verified 01/26/25 14:38 HURTS AROUND MY LIVER Family History Other [...] use type: does not use ROS ROS Narrative General: Denies fever/chills but currently does feel quite cold HENT: Denies headache, denies stuffy nose, denies sore throat EYES: Denies changes in vision Resp: D some chronic cough, denies shortness of breath Cardiac: Denies chest pain GI: Denies abdominal pain, denies changes in bowel, denies nausea/vomiting : Denies changes in urination Extremity: Denies swelling MSK: Some generalized weakness and fatigue Neuro: Denies any new numbness/tingling Heme: Denies any bleeding or bruising Skin: Erythema on left pinky toe going up towards foot Psychiatric: No complaints voiced Vital Signs Vital Signs Vital Signs: 05/10/25 14:51 05/10/25 14:56 05/10/25 15:56 Temperature 99.2 F H 99.2 F H 99.1 F Temperature Source Oral Oral Oral Pulse Rate 87 79 81 Respiratory Rate 17 20 H 20 H Blood Pressure 138/76 H 114/51 L 151/125 H Blood Pressure Mean 96 72 133 Pulse Ox 96 99 95 Oxygen Delivery Method Room Air Room Air Room Air Weight Weight: 119 kg Body Mass Index (BMI) 47.9 Physical Exam Narrative General: Alert, oriented HEENT: Atraumatic, normocephalic Eyes: Anicteric, normal conjunctiva, extraocular movements grossly intact Neck: Supple Respiratory: Clear to auscultation bilaterally, normal respiratory effort Cardiovascular: Regular rate and rhythm GI: Soft, nontender, nondistended Extremities: No significant pitting edema Musculoskeletal: Moving all extremities Neuro: No overt focal neurological deficits Skin: Erythema of left fifth toe going on to the dorsum and wrapping around to the bottom, tenderness more at base of second metatarsal, no open or draining areas Psych: Cooperative Results Lab / Micro Data 05/10/25 14:55 05/10/25 14:55 Labs: Laboratory Results - last 24 hr 05/10/25 14:55: WBC 11.6 H, RBC 3.58 L, Hgb 10.9 L, Hct 33.8 L, MCV 94.4, MCH 30.4, MCHC 32.2, RDW Std Deviation 52.8 H, RDW Coeff of Cecil 15.2 H, Plt Count 210, MPV 10.2, Immature Gran % (Auto) 0.800, Neut % (Auto) 68.1, Lymph % (Auto) 17.4 L, Darke % (Auto) 6.7, Eos % (Auto) 6.7 H, Baso % (Auto) 0.3, Absolute Neuts(auto) 7.9 H, Absolute Lymphs (auto) 2.02, Nucleated RBC % 0, Differential Comment SCANNED, Platelet Estimate ADEQUATE, ESR 37 H, Sodium 138, Potassium 3.9, Chloride 101, Carbon Dioxide 23.5, Anion Gap 14, BUN 30 H, Creatinine 1.01,Estim Creat Clear Calc 58.10, Est GFR (MDRD) Non-Af 58 L, BUN/Creatinine Ratio 29.8 H, Glucose 152 H, Lactic Acid 1.7, Calcium 9.6, C-React Prot Ext Range 85.00 H, TSH 2.810 Imaging Radiology Impression Foot X-Ray 05/10/25 15:20 IMPRESSION: Profound osteopenia, no demonstrated fracture, please see discussion above Polyarticular arthrosis Calcaneal spurs Soft tissue swelling Reading Location: [id number] Assessment & Plan Assessment/Plan (1) Diabetic foot infection: PLAN: Plan # Cellulitis of foot in diabetic patient -Elevated ESR, CRP -X-ray of foot only showed soft tissue swelling ? Continue IV antibiotics ? Podiatry consult - Will order MRI # Intermittent tachycardia -Patient has intermittently had heart rates up to 140s/150?s with narrow complextachycardia that would start and stop quickly, suspected to be slow SVT. EKG right after episode with sinus rhythm with first-degree AV block. Patient asymptomatic during those events -Monitor on telemetry -Echocardiogram -TSH 2.81 - If further episodes or persistent may need to start beta-rivera or consider cardiology consult #Type 2 diabetes mellitus -Glucose checks and sliding scale insulin - Will check A1c in the a.m. #Hypothyroidism -Continue Synthroid #SUSAN -Continue home NIPPV if applicable #Depression/anxiety -Continue home medications # Restless leg syndrome -continue patient's home medication regimen # History of asthma - Budesonide inhaler as needed #Morbid obesity -BMI documented as 48 kg/m? at time of admission -Complicates treatment, prognosis, outcomes -Recommend weight loss and lifestyle changes #DVT ppx: Lovenox SQ twice daily Holly Lopez MD Charges/Coding Visit Charges Inpatient E&M: 84126 Init Hosp L2 05/10/25 1859 <Electronically signed by Holly Lopez MD> Cosigner Signature (if applicable): CC: Dr. Holly Lopez MD; Dr. Corby Heller MD~ Signed [facility] Work Phone: Hospital Discharge instructions Additional Instructions Discharge home with family 07/15/2023, [facility] PT/OT/CORDON/SW. [facility] Work Phone: Hospital Discharge instructions Additional Instructions Implant Used?: [facility] Work Phone: Hospital Discharge instructions Additional Instructions [facility] Additional Instructions Please follow-up to the outpatient center to receive your IM injection of ertapenem 1 g. You have 5 more days on your standing order.[facility] Work Phone: Hospital Discharge instructionsAdditional Instructions Date of Discharge: 05/15/25[facility] Work Phone: Reason for referral (narrative)No [facility] for referral [facility] Work Phone: Summary Purpose Family History No Family History Records Found Relationship Condition Age at Onset Recorded Date/T nic Not Specified Diabetes mellitus Unknown Hypertension Unknown Advance Directives No Advanced Directives Records Found Advance Directive Response Recorded Date/ Time Living Will No June 30 4:27am Power of Motorcycle Police No June 30 021 4:27am Advance Directive Response Recorded Date/ Time Living Will No July 12 2:44pm Power of [employer] No July 12, 2022 2:44pm Advance Directive Response Recorded Date/ Time Living Will No July 12 1:44pm Power of [employer] No July 12, 2022 1:44pm Advance Directive Response Recorded Date/ Time Living Will No July 01 1:50pm Power of [employer] No July 01 1:50pm Advance Directive Response Recorded Date/ Time Living Will No August 02 1:41pm Power of [employer] No August 02, 2023 1:41pm Advance Directive Response Recorded Date/ Time Living Will No November 03 9:55am Power of [employer] No November 03, 2023 9:55am Advance Directive Response Recorded Date/ Time Living Will No November 23 8:34am Power of [employer] No November 23, 2023 8:34am Advance Directive Response Recorded Date/ Time Living Will No November 23 9:34am Power of [employer] No November 23, 2023 9:34am Advance Directive Response Recorded Date/ Time Living Will No January 21, 2024 9:21am Power of [employer] No January 20 9:21am Advance Directive Response Recorded Date/ Time Living Will No July 19 10:35am Power of [employer] No July 19, 2024 10:35am Advance Directive Response Recorded Date/ Time Living Will No December 23, 2024 1:09pm Do you have a Healthcare Power of Motor[employer] Police? No December 23, 2024 1:09pm Advance Directive Response Recorded Date/ Time Living Will No December 23, 2024 1:09pm Do you have a Healthcare Power of [employer]? No December 23, 2024 1:09pm Living Will Yes January 01, 2025 3:44pm Do you have a Healthcare Power of [employer]? Yes January 01, 2025 3:44pm Name of Medical Power of Motorcycle Police Rosemarie January 01, 2025 3:44pm Advance Directive Response Recorded Date/ Time Do you have a Healthcare Power of [employer] Police? No May 10, 2025 2:59pm Advance Directive Response Recorded Date/ Time Do you have a Healthcare Power of [employer] Police? No May 10, 2025 8:41pm Chief Complaint and Reason for Visit Chief [...] 2:03pm Chief Complaint Admit Date ERTAPENEM IM December [...] SCREENING/POST DANG February 15, 2025 3:42p m Chief Complaint Admit Date CYST L CHEEK January 18, 2025 2:3 2pm LEFT CHEEK BIOPSY January 18, 2025 4:3 1pm 1 W FU January 26, 2025 2:03pm 2 ORDERING DOCTORS January 30, 2025 12:35p m SCREENING/POST DANG February 15, 2025 3:42p m LEFT DIABETIC FOOT INFECTION BRIEF EPISO SHANELL OF May 10, 2025 6:45pm Reason for Visit Admit Date Neoplasm of uncertain behavior of skin o f face January 18, 2025 2:32pm Neoplasm of uncertain behavior of skin o f face January 26, 2025 2:03pm Diabetic foot infection May 10 6:45pm Reason for Visit Admit Date Neoplasm of uncertain behavior of skin o f face January 18, 2025 2:32pm Neoplasm of uncertain behavior of skin o f face January 26, 2025 2:03pm Cellulitis of foot, left May 10 6:45pm Cellulitis of left lower limb April 6:45pm Diabetic foot infection May 10 6:45pm History of diabetes mellitus April 6:45pm Paroxysmal supraventricular tachycardia May 10, 2025 6:45pm Type 2 diabetes mellitus with foot ulcer May 10, 2025 6:45pm Ulcer of left foot with musc le involvement without evidence of necrosis May 10, 2025 6:45pm Chief Complaint Admit Date CYST L CHEEK January 18, 2025 2:3 2pm LEFT CHEEK BIOPSY January 18, 2025 4:3 1pm 1 W FU January 26, 2025 2:03pm 2 ORDERING DOCTORS January 30, 2025 12:35p m SCREENING/POST DANG February 15, 2025 3:42p m LEFT DIABETIC FOOT INFECTION BRIEF EPISO SHANELL OF May 10, 2025 6:45pm LEFT DIABETIC FOOT INFECTION BRIEF EPISO SHANELL OF May 11, 2025 7:58am LEFT DIABETIC FOOT INFECTION BRIEF EPISO SHANELL OF May 12, 2025 2:56pm LEFT DIABETIC FOOT INFECTION BRIEF EPISO SHANELL OF May 13, 2025 11:49am LEFT DIABETIC FOOT INFECTION BRIEF EPISO SHANELL OF May 14, 2025 4:46pm LEFT DIABETIC FOOT INFECTION BRIEF EPISO SHANELL OF May 15, 2025 10:44am Additional Source Comments INFORMATION SOURCE (unrecogn ized section and content) DATE CREATED AUTHOR 07/26/2019 [facility] DATE CREATED AUTHOR AUTHOR'S ORGANIZ ATION 09/01/2022 [facility] DATE CREATED AUTHOR AUTHOR'S ORGANIZ ATION 05/22/2025 [facility] Goals (unrecognized section and content) Goals [...] or prosecute any alcohol or drug abuse patient.[facility] Reason for Visit (unrecogniz ed section and content) Reason Comments Established Patient Care Teams (unrecognized sec tion and content) Numerical Control Machine Machinist Relationship Specialty Start Date End Date Corby [...] Active Dr. Clementine Prieto , Admit Provider, Attending Provide r, Other Provider [...] Almazan MD Other Provider Active Rhonda Victoria BAKER HELPER, BAKER HELPER-C Other Provider Active Dr. Zenon Martinez MD [...] Almazan MD Other Provider Active Rhonda Victoria BAKER HELPER, BAKER HELPER-C Other Provider Active Dr. Zenon Martinez MD [...] Almazan MD Other Provider Active Rhonda Victoria BAKER HELPER, BAKER HELPER-C Other Provider Active Team Status: Active Member [...] Almazan MD Other Provider Active Rhonda Victoria BAKER HELPER, BAKER HELPER-C Other Provider Active Team Status: Active Member [...] Almazan MD Other Provider Active Rhonda Victoria BAKER HELPER, BAKER HELPER-C Other Provider Active Dr. Alonso Bautista , Attending Provider, Other Pro vider Active Dr. [...] Almazan MD Other Provider Active Rhonda Victoria BAKER HELPER, BAKER HELPER-C Other Provider Active Dr. Alonso Bautista , Attending Provider Active Dr. Zenon Martinez MD Other Provider Active Team Status: Inactive Member Role Status Dates Dr. Corby Heller MD Primary Care Provi jairon, Admit Provider, Attending Provider, Referring Provider Active Dr. Luis Bhardwaj , BLASM Other Provider Active Team Status: Active Member [...] Almazan MD Other Provider Active Rhonda Victoria BAKER HELPER, BAKER HELPER-C Other Provider Active Dr. Zenon Martinez MD [...] Almazan MD Other Provider Active Rhonda Victoria BAKER HELPER, BAKER HELPER-C Other Provider Active Dr. Alonso Bautista DO [...] 2025 End: January 01, 2025 Dr. Evans Blankesnhip DO Attending Provider Active Start: January 01, [...] February 15, 2025 End: February 15, 2025 Team Status: Active Member Role/Relationship Status Dates Dr. Corby Heller MD Primary Care Provider Active Team Status: Inactive Member Role/Relationship Status Dates Dr. Corby Heller MD Primary Care Provider Active Start: January 18, 2025 End: January 18, 2025 Dr. Corby Heller MD Referring Provider Active Start: January 18, 2025 End: January 18, 2025 Dr. Rob Weinberg MD Attending Provider Active Start: January 18, 2025 End: January 18, 2025 Team Status: Inactive Member Role/Relationship Status Dates Dr. Corby Heller MD Primary Care Provider Active Start: January 18, 2025 End: January 18, 2025 Dr. Rob Weinberg MD Attending Provider Active Start: January 18, 2025 End: January 18, 2025 Dr. Rob Weinberg MD Referring Provider Active Start: January 18, 2025 End: January 18, 2025 Team Status: Inactive Member Role/Relationship Status Dates Dr. Corby Heller MD Primary Care Provider Active Start: January 26, 2025 End: January 26, 2025 Dr. Corby Heller MD Referring Provider Active Start: January 26, 2025 End: January 26, 2025 Dr. Rob Weinberg MD Attending Provider Active Start: January 26, 2025 End: January 26, 2025 Team Status: Inactive Member Role/Relationship Status Dates Dr. Corby Heller MD Primary [...] January 30, 2025 Team Status: Inactive Member Role/Relationship Status Dates Dr. Corby Heller MD Primary Care Provider Active Start: February 15, 2025 End: February 15, 2025 Dr. Corby Heller MD Attending Provider Active Start: February 15, 2025 End: February 15, 2025 Dr. Corby Heller MD Referring Provider Active Start: February 15, 2025 End: February 15, 2025 Team Status: Inactive Member Role/Relationship Status Dates Dr. Corby Heller MD Primary Care Provider Active Start: March 27, 2025 Dr. Marie Caldera MD Attending Provider Active Start: March 27, 2025 Team Status: Active Member Role/Relationship Status Dates Dr. Corby Heller MD Primary Care Provider Active Start: May 03, 2025 Dr. Corby Heller MD Attending Provider Active Start: May 03, 2025 Dr. Bella Prieto DO Other Provider Active Sta rt: May 03, 2025 Team Status: Active Member Role/Relationship Status Dates Dr. Corby Heller MD Primary Care Provider Active Start: May 10, 2025 Dr. Crow Crabtree DO Emergency Provider Active Start : May 10, 2025 Dr. Holly Lopez MD Admit Provider Active Star t: May 10, 2025 Dr. Holly Lopez MD Attending Provider Active Start: May 10, 2025 Dr. Holly Lopez MD Other Provider Active Star t: May 10, 2025 Team Status: Inactive Member Role/Relationship Status Dates Dr. Corby Heller MD Primary Care Provider Active Start: May 03, 2025 End: May 03, 2025 Dr. Corby Heller MD Attending Provider Active Start: May 03, 2025 End: May 03, 2025 Dr. Bella Prieto DO Other Provider Active Sta rt: May 03, 2025 End: May 03, 2025 Team Status: Active Member Role/Relationship Status Dates Dr. Corby Heller MD Primary Care Provider Active Start: May 10, 2025 Dr. Crow Crabtree DO Emergency Provider Active Start : May 10, 2025 Dr. Holly Lopez MD Admit Provider Active Star t: May 10, 2025 Dr. Holly Lopez MD Other Provider Active Star t: May 10, 2025 Dr. Luis Bhardwaj DPM Other Provider Active Start: May 10, 2025 Dr. Hari Miranda MD Attending Provider Active Start: May 10, 2025 Dr. Rob Krishnamurthy MD Other Provider Active Start: May 10, 2025 Team Status: Inactive Member Role/Relationship Status Dates Dr. Corby Heller MD Primary Care Provider Active Start: May 10, 2025 End: May 15, 2025 Dr. Crow Crabtree DO Emergency Provider Active Start : May 10, 2025 End: May 15, 2025 Dr. Holly Lopez MD Admit Provider Active Star t: May 10, 2025 End: May 15, 2025 Dr. Holly Lopez MD Other Provider Active Star t: May 10, 2025 End: May 15, 2025 Dr. Luis Bhardwaj DPM Other Provider Active Start: May 10, 2025 End: May 15, 2025 Dr. Rob Krishnamurthy MD Other Provider Active Start: May 10, 2025 End: May 15, 2025 Dr. Flaco Yang MD Attending Provider Active Start: May 10, 2025 End: May 15, 2025 Dr. Hari Miranda MD Other Provider Active Sta rt: May 10, 2025 End: May 15, 2025 Team Status: Active Member Role/Relationship Status Dates Dr. Corby Heller MD Primary Care Provider Active Start: May 11, 2025 Dr. Crow Crabtree DO Emergency Provider Active Start : May 11, 2025 Dr. Holly Lopez MD Admit Provider Active Star t: May 11, 2025 Dr. Holly Lopez MD Other Provider Active Star t: May 11, 2025 Dr. Luis Bhardwaj DPM Other Provider Active Start: May 11, 2025 Dr. Hari Miranda MD Attending Provider Active Start: May 11, 2025 Dr. Hari Miranda MD Other Provider Active Sta rt: May 11, 2025 Dr. Rob Krishnamurthy MD Other Provider Active Start: May 11, 2025 Team Status: Active Member Role/Relationship Status Dates Dr. Corby Heller MD Primary Care Provider Active Start: May 11, 2025 Dr. Darren Dinh MD Attending Provider Active S tart: May 11, 2025 Team Status: Active Member Role/Relationship Status Dates Dr. Corby Heller MD Primary Care Provider Active Start: May 12, 2025 Dr. Crow Crabtree DO Emergency Provider Active Start : May 12, 2025 Dr. Holly Lopez MD Admit Provider Active Star t: May 12, 2025 Dr. Holly Lopez MD Other Provider Active Star t: May 12, 2025 Dr. Luis Bhardwaj DPM Other Provider Active Start: May 12, 2025 Dr. Hari Miranda MD Attending Provider Active Start: May 12, 2025 Dr. Hari Miranda MD Other Provider Active Sta rt: May 12, 2025 Dr. Rob Krishnamurthy MD Other Provider Active Start: May 12, 2025 Team Status: Active Member Role/Relationship Status Dates Dr. Corby Heller MD Primary Care Provider Active Start: May 13, 2025 Dr. Crow Crabtree DO Emergency Provider Active Start : May 13, 2025 Dr. Holly Lopez MD Admit Provider Active Star t: May 13, 2025 Dr. Holly Lopez MD Other Provider Active Star t: May 13, 2025 Dr. Luis Bhardwaj DPM Other Provider Active Start: May 13, 2025 Dr. Hari Miranda MD Attending Provider Active Start: May 13, 2025 Dr. Hari Miranda MD Other Provider Active Sta rt: May 13, 2025 Dr. Rob Krishnamurthy MD Other Provider Active Start: May 13, 2025 Team Status: Active Member Role/Relationship Status Dates Dr. Corby Heller MD Primary Care Provider Active Start: May 14, 2025 Dr. Crow Crabtree DO Emergency Provider Active Start : May 14, 2025 Dr. Holly Lopez MD Admit Provider Active Star t: May 14, 2025 Dr. Holly Lopez MD Other Provider Active Star t: May 14, 2025 Dr. Luis Bhardwaj DPM Other Provider Active Start: May 14, 2025 Dr. Hari Miranda MD Attending Provider Active Start: May 14, 2025 Dr. Hari Miranda MD Other Provider Active Sta rt: May 14, 2025 Dr. Rob Krishnamurthy MD Other Provider Active Start: May 14, 2025 Team Status: Active Member Role/Relationship Status Dates Dr. Corby Heller MD Primary Care Provider Active Start: May 15, 2025 Dr. Crow Crabtree DO Emergency Provider Active Start : May 15, 2025 Dr. Holly Lopez MD Admit Provider Active Star t: May 15, 2025 Dr. Holly Lopez MD Other Provider Active Star t: May 15, 2025 Dr. Luis Bhardwaj DPM Other Provider Active Start: May 15, 2025 Dr. Rob Krishnamurthy MD Other Provider Active Start: May 15, 2025 Dr. Flaco Yang MD Attending Provider Active Start: May 15, 2025 Dr. Flaco Yang MD Other Provider Active Star t: May 15, 2025 Dr. Hari Miranda MD Other Provider Active Sta rt: May 15, 2025 FOR RECORDS PERTAINING TO PATIENTS [...] BE BASED ON THE PRIMARY CLINICAL RECORDS. [facility] [employer] provides no warranty or guarantee of the accuracy or completeness of information in this document.
[2025-06-16 09:50] LABS: Hematocrit 32.1 % (37-47); Hemoglobin 10.3 g/dL (12.0-15.0); Immature Granulocytes Count 0.050 X10^3/uL (0.0-0.0); Mean Corp Hgb Conc 32.1 g/dL (32-36); Mean Corpuscular Volume 92.5 fL (81-99); Mean Platelet Vol. 9.6 fl (6.2-12.0); NRBC Flagged by Analyzer 0 % (0-5); Platelet Count 242 K/mm3 (150-450); RBC Distribution Width CV 15.1 % (11.6-14.6); RBC Distribution Width SD 50.7 fl (35.1-43.9); Red Blood Count 3.47 M/mm3 (4.2-5.4); White Blood Count 8.7 K/mm3 (4.4-11.0)
[2025-06-16 10:00] LABS: Squamous Epithelial Cells - UA 0-5 SEEN /hpf (5-10)
[2025-06-16 10:04] VITALS: BP 124/90; PULSE 81; RESP 16; TEMP 37.4; O2SAT 96
[2025-06-16 10:29] LABS: Anion Gap 12 (5-15); BUN 20 mg/dL (4-19); BUN/Creat Ratio 19.0 RATIO (10-20); Calcium,Total 8.5 mg/dL (7.6-11.0); Carbon Dioxide 25.7 mmol/L (21.0-32.0); Chloride 100 mmol/L (98-108); Estimated Creatinine Clearance 53.26 ml/min (50-250); Glucose 156 mg/dL (70-99); Potassium 3.9 mmol/L (3.3-5.1)
[2025-06-16 11:01] VITALS: PULSE 81; RESP 16; O2SAT 98
[2025-06-16 11:18] VITALS: BP 124/90; PULSE 81; RESP 17; TEMP 36.8; O2SAT 97
== END 2025-06-16 11:45 | disposition home or self-care (01) ==
PROVIDERS: Emergency Provider Emergency Medicine; PCP Family Medicine Geriatric Medicine; Visit Provider Emergency Medicine
DX: R05.9 Cough, unspecified (principal); E11.9 Type 2 diabetes mellitus without complications; N39.0 Urinary tract infection, site not specified; E78.00 Pure hypercholesterolemia, unspecified; I10 Essential (primary) hypertension; J45.909 Unspecified asthma, uncomplicated; Z79.51 Long term (current) use of inhaled steroids; F32.A Depression, unspecified; Z79.899 Other long term (current) drug therapy; G25.81 Restless legs syndrome; Z79.84 Long term (current) use of oral hypoglycemic drugs; Z98.41 Cataract extraction status, right eye; Z98.42 Cataract extraction status, left eye; J18.9 Pneumonia, unspecified organism
CPT/HCPCS: 71046; 80048; 81001; 85025; 96361; 96374; 96375; 99285; A4216; J2405

== ENCOUNTER → 2025-06-19 | Outpatient (CLI) | payer MEDICARE, OTHER, SELFPAY | END | disposition home or self-care (01) | LOC: POLAB3 14:36 | PROVIDERS: PCP Family Medicine Geriatric Medicine; Visit Provider Family Medicine Geriatric Medicine | DX: J98.8 Other specified respiratory disorders (principal); R06.2 Wheezing | CPT/HCPCS: 87631 ==

== ENCOUNTER 2025-08-21 14:38 | Emergency (ER) | payer MEDICARE, OTHER, SELFPAY ==
[2025-08-21 14:41] VITALS: BP 122/103; PULSE 81; RESP 18; TEMP 36.9; O2SAT 100; BMI 50.8
--- NOTE | 2025-08-21 15:14 | EX.ED.DYSGE1 ---
HPI History of Present Illness Chief Complaint: Wound Check Narrative Narrative: Patient is a 75-year-old female presenting to the emergency department for a wound on her left fifth toe. She states that she noticed it today. She reports that she does not normally look at her feet is unsure how long has been there for. She has a history of diabetes with neuropathy. History of diabetic foot infection, ESBL infection. States the last time that she was on antibiotics for a wound was in April when she was here and admitted. She does follow with podiatry, Dr. Bhardwaj. States that she feels well otherwise. Denies fever, chills, nausea, vomiting. Denies any other wounds on her legs. [facility] Medical History History of ESBL Klebsiella pneumoniae infection BiPAP (biphasic positive airway pressure) dependence History of diverticulitis Restless legs MRSA infection Wears glasses Post-menopausal Alcohol use Thyroid disease Arthritis High cholesterol Back pain Injury of head and neck Non-smoker Shortness of breath on exertion History of pain when walking History of echocardiogram Sinus tachycardia by electrocardiogram Anemia Thrombocytopenia Depression Anxiety Osteoarthritis Kidney stones Asthma Hypertension Diabetes Fibromyalgia Foot arch pain COVID-19 Home Medications ?Medication ?Instructions ?Recorded ?Last Taken ?Type fluticasone propionate 50 2 spray NASAL DAILY allergies 12/07/16 05/31/24 History mcg/actuation nasal spray,suspension citalopram 20 mg tablet 20 mg PO QHS DEPRESSION 04/26/21 05/31/24 History levothyroxine 25 mcg tablet 25 mcg PO DAILY thyroid 04/29/21 04/06/24 07:00 History lovastatin 40 mg tablet 40 mg PO QHS cholesterol 04/29/21 05/31/24 History ropinirole 2 mg tablet 2 mg PO QHS RLS 06/25/23 05/31/24 History glucosamine 375 sz-lvdtupief-wmo 3 tab PO DAILY joints 08/02/23 05/31/24 History no1 500 mg-C 15 mg-gianni 0.5 mg tablet (Naiurqyjyqw-Gbhgjktqtqe-CVS Complex) metformin 500 mg tablet 500 mg PO BID dm 08/02/23 05/31/24 History cranberry fruit 400 mg capsule 400 mg PO DAILY health 11/03/23 05/31/24 History vitamin B complex 1 tab PO DAILY health 11/23/23 05/31/24 History Held on 08/21/25. Instructions: out of med budesonide 0.5 mg/2 mL suspension 0.5 mg inhalation Q12H PRN PRN 03/23/24 Unknown History for nebulization breathing ipratropium bromide 42 mcg (0.06 2 spray intranasal DAILY sob 06/19/24 Unknown History %) nasal spray levalbuterol tartrate 45 1 puff inhalation Q4H PRN 06/19/24 Unknown History mcg/actuation aerosol inhaler shortness of breath polysaccharide iron complex 150 mg 150 mg PO QDAY anemia 06/19/24 Unknown History iron capsule (Ferrex) ascorbate calcium (vitamin C) 500 500 mg PO DAILY health 12/22/24 Unknown History mg tablet coenzyme Q10 100 mg capsule 50 mg PO DAILY health 12/22/24 Unknown History (CoQ-10) Held on 08/21/25. Instructions: out of med echinacea 500 mg capsule 1,000 mg PO DAILY health 12/22/24 Unknown History melatonin 10 mg capsule 10 mg PO QHS sleep 12/22/24 Unknown History finerenone 20 mg tablet (Kerendia) 20 mg PO DAILY kidneys 05/11/25 Unknown History amoxicillin 500 mg-potassium 1 tab PO BID 7 days #14 tabs 08/21/25 Unknown Rx clavulanate 125 mg tablet (Augmentin) doxycycline hyclate 100 mg capsule 100 mg PO BID 7 days #14 caps 08/21/25 Unknown Rx saw palmetto-pumpkin seed oil 160 1 cap PO DAILY 08/21/25 Unknown History mg capsule Allergy/AdvReac Type Severity Reaction Status Date / Time cephalexin monohydrate (From Allergy Swelling Verified 08/21/25 14:39 Keflex) ibuprofen Allergy Swelling Verified 08/21/25 14:39 oxaprozin (From Daypro) Allergy Swelling Verified 08/21/25 14:39 tramadol HCl (From Ultram) Allergy Swelling Verified 08/21/25 14:39 albuterol AdvReac Intermediate Other Verified 08/21/25 14:39 celecoxib (From Celebrex) AdvReac DIZZY AND Verified 08/21/25 14:39 HURTS AROUND MY LIVER Family History Other Diabetes Hypertension Surgical History Hx of bilateral cataract extraction History of cystoscopy Hx of umbilical hernia repair History of carpal tunnel surgery of left wrist Hx of tonsillectomy Hx of colonoscopy History of ureter stent Social History household members: children housing: house Smoking Status: Never smoker alcohol intake: never substance use type: does not use ROS ROS ED ROS Narrative see HPI EXAM Physical Exam Narrative Exam Narrative: Vital signs: Reviewed General: Alert and orientedx3. No acute distress HEENT: Head is normocephalic and atraumatic, sinuses nontender, pupils equal round and reactive. Nares are patent. Oropharynx and throat exams normal. Neck: Supple without lymphadenopathy nontender Cardiovascular: Regular rate and rhythm, no murmurs. No rubs or gallops. Normal S1 and S2 Respiratory: Clear to auscultation bilaterally. No wheezes, rales, rhonchi Abdominal: Soft and nontender. Normal bowel sounds. No guarding or rebound. Nonsurgical abdomen Extremities: No tenderness. No bruising. Normal range of motion. Normal sensation. Skin: Circumferentially erythematous fifth toe extending to the base of the toe. There is no ulcer or wound noted. No significant tenderness to palpation of the fifth left toe. There is no tracking of the erythema up the foot. DP and PT pulses are intact bilaterally. No crepitus of the toe. No fluctuance, induration or drainage. Neurological: Cranial nerves II through XII are grossly intact. Normal strength and sensation. Normal cerebellar function The rest of the physical exam is unremarkable Const Vital Signs: 08/21/25 14:41 08/21/25 15:43 08/21/25 16:35 Temperature 98.4 F 98.2 F 98.3 F Temperature Source Oral Oral Oral Pulse Rate 81 65 82 Respiratory Rate 18 16 14 Blood Pressure 122/103 H 136/50 H 126/53 H Blood Pressure Mean 109 78 77 Pulse Ox 100 98 98 Oxygen Delivery Method Room Air Room Air Room Air 08/21/25 17:00 08/21/25 18:47 Temperature 98 F Temperature Source Pulse Rate 80 70 Respiratory Rate 14 14 Blood Pressure 139/56 H 136/89 H Blood Pressure Mean 83 104 Pulse Ox 98 99 Oxygen Delivery Method Room Air MDM MDM MDM Narrative Medical decision making narrative: Patient is a 75-year-old female presenting to the emergency department for cellulitis of her fifth left toe. Patient was seen and examined. Vitals are stable. Patient resting in bed comfortably no acute distress. Differential includes but is not limited to: Cellulitis, osteomyelitis, diabetic ulcer, gouty versus septic arthritis Exam is consistent with cellulitis. However given the patient's history of diabetes will perform more thorough workup including x-ray. X-ray obtained and shows no evidence of osteomyelitis. CBC with no leukocytosis. ESR within normal limits. CRP is elevated however with a negative leukocytosis and ESR I think this is less likely inflammatory arthritis. Patient was given IV antibiotics here while lab work was obtained including Unasyn and doxycycline based off prior cultures. Patient's vitals continue to be stable while here and with the largely negative workup I think she is stable for discharge. She was reevaluated and exam was reperformed there is no worsening of the cellulitis. Again there is no wounds noted. There is no significant tenderness to palpation of the toe. Discussed antibiotic choices for home with patient and she states that she is allergic to only the 875 antibiotics. She states that she cannot take that dose of Augmentin. Will prescribe her the lower dose of Augmentin as well as doxycycline for coverage of MRSA. Patient is comfortable with discharge. I recommended that she follow-up with her castings trimmer in the next 1 to 2 days. Patient discharged from the Emergency Department. I do not feel that the patient's evaluation reveals any acute reason for admission at this time. I instructed them to either follow-up with their primary care physician or promptly return to the Emergency Department for reevaluation should symptoms worsen or new symptoms develop. I explained what symptoms would indicate the need to return to the emergency department. Shared decision making was used. The patient voiced understanding of the treatment plan and is agreeable with it. Clinical impression Cellulitis History & Record Review Discussion w/independent historian: Patient Lab Data Attestation: I reviewed the patient's lab results. Labs: Laboratory Results - last 24 hr 08/21/25 15:42 WBC 10.0 RBC 3.85 L Hgb 11.4 L Hct 35.7 L MCV 92.7 MCH 29.6 MCHC 31.9 L RDW Std Deviation 55.3 H RDW Coeff of Cecil 16.1 H Plt Count 239 MPV 9.1 Immature Gran % (Auto) 0.500 Neut % (Auto) 73.6 H Lymph % (Auto) 15.7 L Kane % (Auto) 8.3 Eos % (Auto) 1.5 Baso % (Auto) 0.4 Absolute Neuts (auto) 7.4 Absolute Lymphs (auto) 1.58 Nucleated RBC % 0 ESR 29 Sodium 135 Potassium 4.2 Chloride 98 Carbon Dioxide 25.9 Anion Gap 12 BUN 22 H Creatinine 1.10 Estim Creat Clear Calc 51.23 Est GFR (MDRD) Non-Af 52 L BUN/Creatinine Ratio 20.3 H Glucose 128 H Calcium 9.1 C-React Prot Ext Range 49.80 H C-React Prot High Sens Cancelled Radiography Diagnostic Testing: Clinical Impression(s) from Imaging Studies Foot X-Ray 08/21/25 15:30 IMPRESSION: NO X-RAY EVIDENCE OF OSTEOMYELITIS. Reading Location: [facility] Discharge Plan Triage Chief Complaint: Wound Check ED Provider: Nishi Caballero Dx/Rx/DC Orders Clinical Impression: Cellulitis Instructions: Cellulitis Dc Prescriptions: New amoxicillin-pot clavulanate [Augmentin] 500-125 mg tablet 1 tab PO BID 7 Days Qty: 14 0RF doxycycline hyclate 100 mg capsule 100 mg PO BID 7 Days Qty: 14 0RF No Action polysaccharide iron complex [Ferrex 150] 150 mg iron capsule 150 mg PO QDAY ipratropium bromide 42 mcg (0.06 %) spray,non-aerosol 2 spray intranasal DAILY Patient Comments: [NO ORIGINAL SIG] levalbuterol tartrate 45 mcg/actuation HFA aerosol inhaler 1 puff inhalation Q4H PRN (Reason: shortness of breath) fluticasone propionate 1 SPRAY spray,suspension 2 spray NASAL DAILY citalopram 20 mg tablet 20 mg PO QHS Patient Comments: TAKE 1/2 (ONE-HALF) OF A TABLET DAILY FOR 7 DAYS then TAKE 1 TABLET SHELLIE lovastatin 40 mg tablet 40 mg PO QHS Patient Comments: TAKE 1 TABLET DAILY AT BEDTIME levothyroxine 25 mcg tablet 25 mcg PO DAILY Patient Comments: TAKE 1 TABLET BY MOUTH ONCE DAILY ropinirole 2 mg tablet 2 mg PO QHS metformin 500 mg tablet 500 mg PO BID Patient Comments: WITH EACH MEAL Bdouztetliq-Lkvns-XCG Complex 077-898-10-0.5 mg tablet 3 tab PO DAILY cranberry fruit 400 mg capsule 400 mg PO DAILY Rx Instructions: administer with a meal coenzyme Q10 [CoQ-10] 100 mg capsule 50 mg PO DAILY melatonin 10 mg capsule 10 mg PO QHS ascorbate calcium (vitamin C) 500 mg tablet 500 mg PO DAILY echinacea 500 mg capsule 1,000 mg PO DAILY Rx Instructions: administer with meals saw palmetto-pumpkin seed oil 160 mg capsule 1 cap PO DAILY vitamin B complex Tablet 1 tab PO DAILY budesonide 0.5 mg/2 mL Suspension For Nebulization 0.5 mg inhalation Q12H PRN PRN (Reason: breathing) Kerendia 20 mg tablet 20 mg PO DAILY Primary Care Provider: Corby Heller Chi Referrals: Luis Bhardwaj DPM [Med Staff - Active Staff, Podiatry] - As soon as possible Corby Heller Chi, MD [Primary Care Provider, Geriatrics] - As soon as possible Activity Restrictions/Additional Instructions: Take the antibiotics as prescribed. You need to return to the emergency department if you develop fever, chills, nausea, vomiting, feeling unwell or worsening redness of your foot. You need to follow-up with your castings trimmer in the next 1 to 2 days. Print Language: Slovak Disposition Disposition: Home, Self Care Discharge Date/Time: 08/21/25 19:24
--- NOTE | 2025-08-21 15:30 | RAD_ITS ---
PROCEDURE: FOOT MIN 3 VIEWS 08/21/2025 REASON FOR EXAM: WOUND TO LEFT FIFTH TOE TECHNIQUE: Procedure Code: RADFO Modality: DX Procedure: FOOT MIN 3 VIEWS Laterality: Left COMPARISON: 05/10/2025 FINDINGS: BONES: No acute fracture or focal osseous lesion. The cortex appears distinct without evidence of osseous destruction or periosteal reaction. Small plantar calcaneal spur. Claw toe deformities noted. Generalized osteopenia. JOINTS: No dislocation. Arthritic changes in the midfoot, without significant change. SOFT TISSUES: 5th toe soft tissue swelling. Minimal interval improvement of dorsal forefoot soft tissue swelling. RAD/Foot min 3 Views IMPRESSION: NO X-RAY EVIDENCE OF OSTEOMYELITIS. Reading Location: [id number]
[2025-08-21] MEDS: Ampicillin/Sulbactam 3 GM in 0.9% Normal Saline (100mL MB+) 100 ML IV (15:38)
[2025-08-21 15:43] VITALS: BP 136/50; PULSE 65; RESP 16; TEMP 36.8; O2SAT 98
[2025-08-21 16:13] LABS: Anion Gap 12 (5-15); BUN 22 mg/dL (4-19); BUN/Creat Ratio 20.3 RATIO (10-20); Calcium,Total 9.1 mg/dL (7.6-11.0); Carbon Dioxide 25.9 mmol/L (21.0-32.0); Chloride 98 mmol/L (98-108); Estimated Creatinine Clearance 51.23 ml/min (50-250); Glucose 128 mg/dL (70-99); Potassium 4.2 mmol/L (3.3-5.1)
[2025-08-21 16:25] LABS: Hematocrit 35.7 % (37-47); Hemoglobin 11.4 g/dL (12.0-15.0); Immature Granulocytes Count 0.050 X10^3/uL (0.0-0.0); Mean Corp Hgb Conc 31.9 g/dL (32-36); Mean Corpuscular Volume 92.7 fL (81-99); Mean Platelet Vol. 9.1 fl (6.2-12.0); NRBC Flagged by Analyzer 0 % (0-5); Platelet Count 239 K/mm3 (150-450); RBC Distribution Width CV 16.1 % (11.6-14.6); RBC Distribution Width SD 55.3 fl (35.1-43.9); Red Blood Count 3.85 M/mm3 (4.2-5.4); White Blood Count 10.0 K/mm3 (4.4-11.0)
[2025-08-21 16:35] VITALS: BP 126/53; PULSE 82; RESP 14; TEMP 36.8; O2SAT 98
[2025-08-21 17:00] VITALS: BP 139/56; PULSE 80; RESP 14; O2SAT 98
[2025-08-21 17:54] LABS: CRP 49.80 mg/L (0.0-3.0)
[2025-08-21 18:47] VITALS: BP 136/89; PULSE 70; RESP 14; TEMP 36.6; O2SAT 99
--- NOTE | 2025-08-21 19:28 | CM.ED ---
Social Work SW verified that patient had previously declined completing a living will. HCPOA was completed and is on file with [facility]. Socorro Choi, SHELL WORKER, LANDC[employer] OFFICER
== END 2025-08-21 19:24 | disposition home or self-care (01) ==
PROVIDERS: Emergency Provider Student in an Organized Health Care Education/Training Program; PCP Family Medicine Geriatric Medicine; Visit Provider Student in an Organized Health Care Education/Training Program
DX: L03.032 Cellulitis of left toe (principal); E11.40 Type 2 diabetes mellitus with diabetic neuropathy, unspecified; E78.00 Pure hypercholesterolemia, unspecified; I10 Essential (primary) hypertension; J45.909 Unspecified asthma, uncomplicated; Z79.51 Long term (current) use of inhaled steroids; F32.A Depression, unspecified; Z79.899 Other long term (current) drug therapy; Z79.84 Long term (current) use of oral hypoglycemic drugs; Z98.41 Cataract extraction status, right eye; Z98.42 Cataract extraction status, left eye
CPT/HCPCS: 73630; 80048; 85025; 85652; 86140; 86141; 96365; 96367; 99285; A4216; J0295

== ENCOUNTER → 2025-08-27 | Outpatient (CLI) | payer MEDICARE, OTHER, SELFPAY ==
--- OUTSIDE RECORDS SUMMARY | 2025-08-27 20:13 | XMS RPT_ITS | CCD ---
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 Corby Heller Chi Primary Care Provider Dr. Rob Ruiz Attending Provider Corby Heller Chi Primary Care Provider [phone] CORBY HELLER CHI Primary Care Unavailable GRISEL [...] Dr. Cameron Almazan Other Provider Unavailab Ibarra LANCE CREWMEMBER/MLRS SERGEANT, LANCE CREWMEMBER/MLRS SERGEANT-C Rhonda Other Provider Dr. Zenon Martinez Other Provider Dr. Levi Ramirez Attending Provider Dr. Zenon Martinez Attending Provider Dr. Alonso Bautista Attending Provider Dr. Alonso Bautista Other Provider Tereletsky, Dr. Alonso Referring Provider Dr. Corby Heller Chi Primary [...] Dr. Cameron Almazan Other Provider Unavailab Ibarra LANCE CREWMEMBER/MLRS SERGEANT, LANCE CREWMEMBER/MLRS SERGEANT-C Rhonda Other Provider Dr. Zenon Martinez Other Provider Dr. Alonso Bautista Referring Provider Dr. Levi Ramirez Attending Provider Dr. Zenon Martinez Attending Provider Dr. Alonso Bautista Attending Provider Dr. Alonso Bautista Other Provider Arron RAY, Dr. Corby Juárez Primary Care Provider [phone] Arron RAY, Dr. Corby Juárez Referring Provider Shana Vicente Attending Provider Werner RAY, Dr. Salazar Attending Provider [phone] Werner RAY, Dr. Salazar Referring Provider Arron RAY, Dr. Corby Juárez Attending Provider Arron RAY, Dr. Corby Juárez Primary Care Provider [phone] Arron RAY, Dr. Corby Juárez Referring Provider Raghu RAY, Dr. Rivas Attending Provider [phone] Raghu RAY, Dr. Rivas Referring Provider Lucian RAY, Dr. Fernandes Emergency Provider [phone] Arron RAY, Dr. Corby Juárez Primary Care Provider [phone] Werner RAY, Dr. Salazar Attending Provider Werner [...] Provider Conner CABRERA, Dr. Blanco Other Provider [phone] Arron RAY, Dr. Corby Juárez Primary Care Provider Arron RAY, Dr. Corby Juárez Referring Provider Arron RAY, Dr. Corby Juárez Attending Provider Werner RAY, Dr. Salazar Attending Provider Thuy CABRERA, Dr. Maria Emergency Provider [phone] John RAY, Dr. Barrera Admit Provider John RAY, Dr. Barrera Attending Provider John RAY, Dr. Barrera Other Provider Lashae VASQUEZ, Dr. Smith Other Provider Ruben RAY, Dr. Noriega Attending Provider Raghu RAY, Dr. Rivas Other Provider Trey RAY, Dr. Narvaez Attending Provider Unavaila [facility] Ruben RAY, Dr. Noriega Other Provider Ruben RAY, Dr. Noriega Attending Provider Allegra RAY, Dr. Banks Attending Provider Unavailab thuy Yang MD, Dr. Narvaez Other Provider Unavailable Arron RAY, Dr. Corby Juárez Primary Care Physician Werner RAY, Dr. Salazar Attending Physician Arron RAY, Dr. Corby Juárez Attending Physician [phone] Conner CABRERA, Dr. Blanco Nurse Practitioner Thuy CABRERA, Dr. Maria Emergency Department Physician John RAY, Dr. Barrera Admitting Physician John RAY, Dr. Barrera Nurse Practitioner Lashae VASQUEZ, Dr. Smith Nurse Practitioner Raghu RAY, Dr. Rivas Nurse Practitioner [phone] Trey RAY, Dr. Narvaez Attending Physician Unavail able Ruben RAY, Dr. Noriega Nurse Practitioner Ruben RAY, Dr. Noriega Attending Physician Allegra RAY, Dr. Banks Attending Physician Unavailaakash Eller MD, Dr. Roni Oden Attending Physician Lashae VASQUEZ, Dr. Smith Referring Provider Trey RAY, Dr. Narvaez Nurse Practitioner Unavailaakash Delgado DO, Dr. Rao Attending Physician Dr. Jalen Delgado DO Emergency Department Physi brent Holly Lopez Admitting Unavailable Hari Miranda Attending Unavailable Luis Bhardwaj Consulting Unavailable Arron, Corby Chi Primary Care Unavailable Holly Lopez Consulting Unavailable Rob Krishnamurthy Consulting Unavailable Hari Miranda Consulting Unavailable Arron, Corby Chi Primary Care Unavailable Arron, Corby Chi Attending Unavailable Arron, Corby Chi Referring Unavailable Arron, Corby Chi Primary Care Unavailable Arron, Corby Chi Attending Unavailable Arron, Corby Chi Primary Care Unavailable Shana Hancock Attending Unavailable Arron, Corby Chi Referring Unavailable Holly Lopez Attending Unavailable Evans Blankenship Attending Unavailable Arron, Corby Chi Primary Care Unavailable Dom Epstein Attending Unavailable Arron, Corby Chi Primary Care Unavailable Arron, Corby Chi Primary Care Unavailable Jalen Delgado Attending Unavailable Arron, Corby Chi Primary Care Unavailable Arron, Corby Chi Attending Unavailable EnedinakiMarie Referring Unavailable Arron, Corby Chi Primary Care Unavailable Marie Caldera Attending Unavailable Arron, Corby Chi Primary Care Unavailable Arron, Corby Chi Attending Unavailable Marie Caldera Referring Unavailable Marie Caldera Attending Unavailable Arron, Corby Chi Primary Care Unavailable RaghuRob Referring Unavailable RaghuRob Attending Unavailable Arron, Corby Chi Primary Care Unavailable RaghuRob Referring Unavailable RaghuRob Attending Unavailable Arron, Corby Chi Primary Care Unavailable Rob Krishnamurthy Attending Unavailable Rob Krishnamurthy Referring Unavailable Arron, Corby Chi Primary Care Unavailable Rob Krishnamurthy Attending Unavailable Raghu Rob Referring Unavailable Arron, Corby Chi Primary Care Unavailable Arron, Corby Chi Primary Care Unavailable Arron, Corby Chi Attending Unavailable Rob Krishnamurthy Referring Unavailable Rob Krishnamurthy Attending Unavailable Arron, Corby Chi Primary Care Unavailable RaghuRob Referring Unavailable RaghuRob Attending Unavailable Arron, Corby Chi Primary Care Unavailable Raghu, Rob Referring Unavailable RaghuRob Attending Unavailable Arron, Corby Chi Primary Care Unavailable Conner Bella Consulting Unavailable Arron, Corby Chi Attending Unavailable Arron, Corby Chi Primary Care Unavailable Rob Weinberg Attending Unavailable Siska Rob Referring Unavailable Arron, Corby Chi Primary Care Unavailable Holly Lopez Admitting Unavailable Luis Bhardwaj Consulting Unavailable Flaco Yang Attending Unavailable Arron, Corby Chi Primary Care Unavailable Holly Lopez Consulting Unavailable Rob Krishnamurthy Consulting Unavailable Ruben Hari Consulting Unavailable Arron, Corby Chi Attending Unavailable Arron, Corby Chi Primary Care Unavailable Arron, Corby Chi Referring Unavailable Bella Prieto Attending Unavailable Conner Bella Consulting Unavailable Arron, Corby Chi Referring Unavailable Arron, Corby Chi Primary Care Unavailable Flaco Yang Attending Unavailable Flaco Yang Consulting Unavailable Darren Dinh Attending Unavailable Arron, Corby Chi Primary Care Unavailable Arron, Corby Chi Referring Unavailable Arron, Corby Chi Primary Care Unavailable Shana Hancock Attending Unavailable Arron, Corby Chi Referring Unavailable SisRob tanner Attending Unavailable Arron, Corby Chi Primary Care Unavailable Arron, Corby Chi Referring Unavailable Arron, Corby Chi Primary Care Unavailable Shana Hancock Attending Unavailable Arron, Corby Chi Referring Unavailable Rob Weinberg Attending Unavailable Arron, Corby Chi Primary Care Unavailable Allergies Allergy Classification Reported Allergen(s) Allergy Type Date of Onset Reaction(s) Facility (20 sources) celecoxib; Translations: [CELECOXIB] Drug Allergy 2 Shortness of Breath [facility] Comment on above: DIZZY AND HURTS CELESTINO UND MY LIVER (20 sources) Cephalexin; Translations: [cephalexin monohydrate] Drug Allergy 1 Swelling [facility] (20 sources) Ibuprofen; Translations: [IBUPROFEN] Drug Allergy 2 Other: See Comments [facility] Work Phone: Comment on above: STATES CAN TAKE LOW DOSES ONLY (20 sources) oxaprozin; Translations: [OXAPROZIN] Drug Allergy 2 Shortness of Breath [facility] (20 sources) traMADol; Translations: [TRAMADOL HCL] Drug Allergy 2 Shortness of Breath [facility] (2 sources) Aspirin; Translations: [ASPIRIN] Drug Allergy 2 Other: See Comments [facility] (2 sources) Cephalexin; Translations: [CEPHALEXIN] Drug Allergy 2 Shortness of Breath [facility] (2 sources) Naproxen; Translations: [NAPROXEN SODIUM] Drug Allergy 2 Other: See Comments [facility] (17 sources) Albuterol Drug Allergy 4 Other [facility] Comment on above: shaking all over (1 source) Albuterol Drug Allergy 5 [facility] (1 source) celecoxib Drug Allergy 5 [facility] (1 source) Ibuprofen Drug Allergy 5 [facility] (1 source) oxaprozin Drug Allergy 5 [facility] Medications Current Medications Medication Drug Class(es) [...] 07, 2016 9:10am Start: 12-07-2016 End: 06-30-2023 Albuterol Sulfate 1 PUFF inh aler Discontinued 1 - 2 NMA INHALATION EVERY 6 HOURS NEEDED as needed for Asthma December 07, 2016 12:00am June 30, 2023 10:34am Start: 12-07-2016 End: 06-30-2023 take 1 puff(s) [...] mg / clavulanate 125 mg oral tablet (4 sources) Penicillin-class Antibacterial Start: 05-15-2025 budesonide 0.25 mg/ml inhalation suspension (20 sources) Corticosteroid Start: 06-30-2023 End: 03-23-2024 take 0.5 mg by inhalation every twelve hours as needed calcium ascorbate 500 mg oral tablet (16 sources) Start: 12-22-2024 take 1 tablet by mouth once daily citalopram 20 mg oral tablet (20 sources) Serotonin Reuptake Inhibitor Start: 04-26-2021 take 1 tablet by mouth at bedtime Cranberry Fruit (20 sources) Non-Standardized Food Allergenic Extract, Non-Standardized Plant Allergenic Extract Start: 11-03-2023 take 1 capsule by mouth once daily Start: 11-03-2023 take 1 capsule by mo [...] meal doxycycline monohydrate 100 mg oral capsule (7 sources) Tetracycline-class Drug Start: 05-15-2025 take 1 capsule b y mouth twice daily Echinacea (20 sources) Start: 12-22-2024 take 1 capsule by mouth once daily at mealtime Start: 12-22-2024 take 1 capsule by mo [...] PO DAILY May 18, 2024 12:00am Finerenone (5 sources) Start: 05-11-2025 take 1 tablet by mouth once da jayde Start: 05-11-2025 take 1 tablet by abdelrahman th once daily Finerenone (Kerendia) 20 mg tablet Active 20 mg PO DAILY May 11, 2025 12:00am kidneys Drcfpdfa-Shcje-Bdv6-C-Gianni-B or (Jsfxptcovap-Jurai-Uwd Complex) 230-074-94-0.5 mg tablet (20 sources) Start: 08-02-2023 Start: 08-02-2023 Glucosam-Chond -Mkx1-L-Riyv-Bor (Wmgjemqeyds-Ceiad-Nxm Complex) 104-948-90-0.5 mg tablet Active 3 {tbl} PO DAILY August 02, 2023 1:00am joints Start: 08-02-2023 Glucosam-Chond -Lpw4-P-Lxgm-Bor (Ghmkusbjpeg-Alyoy-Zgv Complex) 273-612-48-0.5 mg tablet Active 3 {tbl} PO DAILY August 02, 2023 1:00am Start: 08-02-2023 take 375-500 tablets by mouth once daily Boxrldkv-Ybojd-Hsr1-C-Gianni-Bor (Wczhcrqevkx-Afhau-Xlw Complex) 862-711-75-0.5 mg tablet Active 3 TABLET PO DAILY August 02, 2023 1:00am Start: 08-02-2023 take 375-500 tablets by mouth once daily Pborxcgv-Vehcl-Vzl8-C-Gianni-Bor (Qqqhygxzitj-Dgfab-Qix Complex) 542-332-52-0.5 mg tablet Active 3 TABLET PO DAILY August 02, 2023 12:00am ipratropium bromide 0.042 mg /actuat metered dose nasal spray (17 sources) Anticholinergic Start: 06-19-2024 Start: 06-19-2024 Ipratropium Br omide 42 mcg (0.06 %) spray,non-aerosol Active INTRANASAL June 19, 2024 12:00am 200 actuat levalbuterol 0.045 mg/actuat metered dose inhaler (17 sources) beta2-Adrenergic Agonist Start: 06-19-2024 levothyroxine sodium 0.025 mg oral tablet (20 sources) l-Thyroxine Start: 04-29-2021 take 1 tablet by mouth once daily LEVOTHYROXINE SO DIUM (LEVOTHYROXINE ORAL) Take by mouth. 0 Active Comment on above: Take by mouth. lovastatin 40 mg oral tablet (20 sources) HMG-CoA Reductase Inhibitor Start: 04-29-2021 take 1 tablet by mouth at bedtime Comment on above: Take 40 mg by mouth daily at bedtime. melatonin 10 mg oral capsule (17 sources) Start: 12-22-2024 take 1 capsule by mouth at bedtime take 1 capsule by mouth once serg ly melatonin 10 mg cap Take 1 capsule by mouth once daily. 0 Active Comment on above: Take 1 capsule by [facility] once daily. metFORMIN hydrochloride 500 mg oral tablet (20 sources) Biguanide Start: 08-02-2023 take 1 tablet by mouth twice daily take 1 tablet by mouth three brie es daily metFORMIN 500 mg tablet Take 500 mg by mouth three times daily. 0 Active Comment on above: Take 500 mg by mouth three times daily. polysaccharide iron complex 150 mg oral capsule (20 sources) Start: 06-19-2024 Start: 07-14-2023 Polysaccharide Iron Complex (Ferrex 150) 150 mg iron Capsule Active 150 MG PO DAILY July 13, 2023 11:00pm rOPINIRole 2 mg oral tablet (20 sources) Nonergot Dopamine Agonist Start: 06-25-2023 take 1 tablet by mouth at bedtime Start: 04-26-2021 rOPINIRole (RE QUIP) 0.5 mg tablet Take by mouth. TAKING 2MG 0 04/26/2021 Active Start: 04-26-2021 End: 06-25-2023 take 1 tablet by mouth at bedtime Ropinirole (Requip) 0.5 mg Tablet Discontinued 0.5 mg PO AT BEDTIME April 26, 2021 12:00am June 25, 2023 4:35pm RLS Comment on above: Take by mouth. TAKIN G 2MG ubidecarenone 100 mg oral ca psule (20 sources) Start: 12-22-2024 Start: 08-02-2023 End: 06-19-2024 Coenzyme Q10 (Co [...] 23, 2023 12:00am Vitamin B Complex tablet (17 sources) Start: 11-23-2023 Start: 11-23-2023 Vitamin B Comp david tablet [...] by mouth. benzonatate 200 mg oral capsule (18 sources) Non-narcotic Antitussive Start: End: take 1 capsule by mouth three times daily Benzonatate 200 mg capsule Discontinued 200 mg PO THREE TIMES A DAY June 19, 2024 12:00am December 22, 2024 12:31pm Start: 07-14-2022 benzonatate (T ESSALON PERLE) 100 mg capsule calcium carbonate 1250 mg / cholecalciferol 200 unt oral tablet (1 source) Vitamin D take 1 tablet by mouth once daily giwlnqy-ywqdnxplg-mmjkzmb D3 500 mg-5 mcg (200 unit) per tablet Take 1 tablet by mouth once daily. 0 Active Comment on above: Take 1 tablet by [facility] once daily. cefdinir 300 mg oral capsule [...] twice daily. ciprofloxacin 250 mg oral tablet (17 sources) Quinolone Antimicrobial Start : 04-06 End: [...] 20 mg/ml oral solution (20 sources) Uncompetitive F-rzflqj-F-asparta te Receptor Antagonist, Sigma-1 Agonist Start : 06-30 End: 07-14 take 1 mL by mouth every six hours as needed for cough Dextromethorphan-Guaifenesin 10-100 mg/5 mL Syrup Discontinued 10 mL PO EVERY 6 HOURS NEEDED as needed for COUGH 0 0 June 30, 2023 12:00am July [...] once daily. fluconazole 100 mg oral tablet (20 sources) Azole Antifungal Start: 11-25-19 End: 03-23-20 take 2 tablets by mouth once daily, then take 1 tablet by mouth once daily Fluconazole (Diflucan) 100 mg tablet Discontinued 100 mg PO DAILY 6 5 0 November 25, 2023 1:00am March 23, 2024 2:07pm take 2 tabs today and then one daily unitl gone 120 actuat fluticasone propionate 0.044 mg/actuat metered dose inhaler (20 sources) Corticosteroid Start: 04-29-20 End: 06-30-20 23 Fluticasone Propionate (Flovent Hfa) 44 mcg/actuation HFA aerosol inhaler Discontinued 1 NMA INHALATION DAILY April 29, 2021 12:00am June 30, 2023 10:35am breathing Start: 04-29-2021 take 1 puff(s) by in halation once daily Fluticasone Propionate (Flovent Hfa) 44 mcg/actuation HFA aerosol inhaler Active 1 PUFF INHALATION DAILY April 29, 2021 12:00am Start: 12-07-2016 Start: 12-07-2016 Fluticasone Pr opionate Active 2 SPRAY NASAL DAILY December 07, 2016 12:00am take 1 spray(s) nasa l route once daily fluticasone 50 mcg/actuation nasal spray Use 1 [place] in each nostril once daily. 0 Active Comment on above: Use 1 [place] in each nostril once daily. Fluticasone Propionate (Flovent Hfa) 44 mcg/actuation HFA aerosol inhaler (20 sources) Start: 04-29-2021 End: 06-30-2023 Fluticasone Propionate (Flovent Hfa) 44 mcg/actuation HFA [...] once daily. GLUCOSAM HCL/MSM/CHONDRO FRANK A (GLUCOSAMINE TBH-ZKR-ZHXSVPCS TN ORAL) (1 source) take 1200 mg by mouth once daily GLUCOSAM HCL/MSM/CHONDRO FRANK A (GLUCOSAMINE OEQ-XSY-WHXUCUCMEH ORAL) Take by mouth. 1200 mg daily [...] Start: 11-03-2023 take 1 capsule by mo [facility] once daily L. Acidophilus-L. Rhamnosus (Probiotic) 15 billion cell capsule Active 1 CAP PO DAILY November 03, 2023 1:00am Start: 11-03-2023 take 1 capsule by mo [facility] once daily L. Acidophilus-L. Rhamnosus (Probiotic) 15 billion cell capsule Active 1 CAP PO DAILY November 03, 2023 12:00am losartan potassium 100 mg oral tablet (17 sources) Angiotensin 2 Receptor Rivera Start: 06-19-2024 End: 12-22-2024 take 1 tablet by mouth once daily Losartan 100 mg tablet Discontinued 100 mg PO daily June 19, 2024 12:00am December 22, 2024 12:30pm lutein 20 mg oral capsule (20 sources) Start: 11-23-2023 End: 06-19-2024 take 1 [...] 100 mg PO TWICE A DAY 6 0 November 25, 2023 1:00am March 23, 2024 2:09pm must administer with a meal/food Start: 07-14-2023 take 1 capsule by [facility] twice daily at mealtime Nitrofurantoin Monohyd/M-Cryst (Macrobid) 100 mg capsule Active 100 MG PO TWICE A DAY 6 August 05, 2023 12:00am must administer with a meal/food nystatin 100 unt/mg topical ointment (20 sources) Polyene Antifungal Start: 11-25-2023 End: 03-23-2024 Nystatin 100,000 unit/gram ointment Discontinued 1 NMA TOPICAL TWICE A DAY 30 November 25, 2023 1:00am March 23, 2024 [...] Protocol details. Start: 06-30-2023 End: 07-14-2023 Nystatin ([facility]) 100,000 un it/gram Powder Discontinued 1 APPLIC [...] meq PO DAILY WITH MEALS 30 30 0 July 14, 2023 12:00am June 01, 2024 [...] MG PO DAILY August 02, 2023 12:00am rekegfm-pmys-msfhw-oreg-capr yl 100 mg-150 mg- 50 mg-150 mg cap (1 source) Start: 12-07-2016 wzwgtri-evka-bwezy-oreg-capr yl 100 mg-150 mg- 50 mg-150 mg [...] continue for 5 days starting 06/30/23 Vibegron (17 sources) Start: 08-11-2024 End: 05-10-2025 take 1 [...] Chronic Comment on above: INHALER Cardiac dysrhythmias (10 sources) Paroxysmal supraventricular tachycardia; Translations: [Paroxysmal supraventricular tachycardia] 05-11-2025 Chronic Cardiac dysrhythmias (20 sources) ECG: sinus tachycardia; Translations: [Tachycardia, unspecified] 07-08-2023 Episodic Chronic kidney disease (2 sources) Chronic kidney disease; Translations: [Chronic kidney disease, stage 3a] Onset: 12-25-2024 Chronic ulcer of skin (20 sources) Non-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 without evidence of necrosis; Translations: [Non-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 without] Onset: 05-15-2025 05-11-2025 Chronic Diabetes mellitus with complications (20 sources) Infection of foot due to diabetes [...] 01-19-2013 Episodic Genitourinary symptoms and ill-defined conditions (18 sources) Urgent desire to urinate; Translations: [Urgency [...] limb] 07-15-2023 Episodic Other connective tissue disease (3 sources) Pain in left foot; Translations: [Pain in left foot] 03-29-2020 Episodic Other diseases of veins and lymphatics (1 source) Peripheral venous insufficiency; Translations: [Venous insufficiency (chronic) (peripheral)] Episodic Other hereditary and degenerative nervous system conditions (20 sources) Restless legs; Translations: [Restless legs syndrome] 06-30-2023 Chronic Other hereditary and degenerative nervous system conditions (6 sources) Restless legs syndrome; Translations: [Restless legs syndrome (RLS)] 07-15-2023 Chronic Other lower respiratory disease (1 source) Other specified respiratory disorders; Translations: [Other specified respiratory disorders] Onset: 06-28-2025 Episodic Other non-traumatic joint disorders (8 sources) Pain in wrist; Translations: [Pain in left wrist] 01-09-2025 Episodic Other nutritional; endocrine; and metabolic disorders (1 source) Morbid obesity; Translations: [Morbid (severe) obesity due to excess calories] Onset: 06-09-2012 06-09-2012 Chronic Other nutritional; endocrine; and metabolic disorders (10 sources) H/O: diabetes mellitus; Translations: [Personal history [...] 07-08-2023 Episodic Skin and subcutaneous tissue infections (20 sources) Cellulitis of left lower limb; Translations: [Cellulitis of left lower limb] Onset: 05-15-2025 05-11-2025 Episodic Thyroid disorders (1 source) Hypothyroidism, unspecified; Translations: [Hypothyroidism, unspecified] Onset: 01-01-2025 Chronic Unclassified (1 source) Cough, unspecified; Translations: [Cough, unspecified] Onset: 06-18-2025 Viral infection (20 sources) Disease caused by 2019-nCoV; Translations: [COVID-19] 04-27-2021 Episodic Past or Other Problems Problem Classification Problem Date Documented Date Episodic/Chronic Calculus of urinary tract (20 sources) Kidney stone; Translations: [Calculus of kidney] Onset: 05-18-2013 05-18-2013 Episodic Neoplasms of unspecified nature or uncertain behavior (19 sources) Neoplasm of uncertain behavior of skin of face; Translations: [Neoplasm of uncertain behavior of skin] Onset: 01-24-2025 01-18-2025 Episodic Comment on above: Left cheek (pearly l esion with keratin center). Lesion approximately 0.5 x 0.5 cm Other non-traumatic joint disorders (9 sources) Pain in right knee; Translations: [Acute pain of right knee] Onset: 01-04-2025 01-09-2025 Episodic Other screening for suspected conditions (not mental disorders or infectious disease) (2 sources) Patient encounter status; Translations: [Encounter for screening for other disorder] Onset: 06-11-2015 06-11-2015 Episodic Urinary tract infections (20 sources) Recurrent urinary tract infection; Translations: [Urinary tract infection, site not specified] Onset: 06-09-2012 06-09-2012 Episodic Results Test Name Value Interpretation Reference Range Facility Influenza virus A and B and SARS-CoV-2 (COVID-19) and Respiratory syncytial virus RNAOrdered By: Corby Heller on 06-19-2025 SARS-CoV-2 (COVID-19) RNA ROSEANNE+probe Ql (Unsp spec) [facility] M100.678on 06-19-2025 M100.678 Pending SARS-CoV-2 (COVID 19) Negative INFLUENZA A Negative INFLUENZA B Negative RSV PCR Negative Normal [facility] Comment on above: Performed By: #### M 100.678 ####[facility] [id number] [place], [address] Absolute lymphocyte countOrd ered By: Jalen Delgado on 06-16-2025 Lymphocytes Auto (Unsp spec) [#/Vol] 1.68 10*3/uL 0.83-4.51 [facility] Absolute neutrophil countOrd ered By: Jalen Delgado on 06-16-2025 Neutrophils (Bld) [#/Vol] 5.7 10*3/uL 2.0-7.7 [facility] Anion gap in Serum or Plasma Ordered By: Jalen Delgado on 06-16-2025 Anion gap [Moles/Vol] 12 mmol/L 02-08 [facility] Automated lymphocyte count a s percentage of total leukocytesOrdered By: Jalen Delgado on 06-16-2025 Lymphocytes/100 WBC Auto (Unsp spec) 19.2 % [facility] BUN/creatinine ratioOrdered By: Jalen Delgado on 06-16-2025 Urea nitrogen/Creatinine [Mass ratio] 19.0 mg/mg 07-16 [facility] Basic Metabolic Profile (BMP )on 06-16-2025 BUN/CRE 19.0 RATIO Normal 07-16 [facility] Comment on above: Performed By: #### L 100.0100, L500.2500 ####[facility] [id number] [place], [address] Calcium [Mass/Vol] 8.5 mg/dL Normal 7.6-11.0 [facility] Comment on above: Performed By: #### L 100.0100, L500.2500 ####[facility] [address] [place], [address] Chloride [Moles/Vol] 100 mmol/L Normal 98-108 [facility] Comment on above: Performed By: #### L 100.0100, L500.2500 ####[facility] [address] [place], [address] CO2 [Moles/Vol] 25.7 mmol/L Normal 21.0-32.0 [facility] Comment on above: Performed By: #### L 100.0100, L500.2500 ####[facility] [address] [place], [address] Creatinine [Mass/Vol] 1.05 mg/dL Normal 0.70-1.20 [facility] Comment on above: Performed By: #### L 100.0100, L500.2500 ####[facility] [address] [place], [address] ECRCL 53.26 ml/min Normal 50-250 [facility] Comment on above: Performed By: #### L 100.0100, L500.2500 ####[facility] [address] [place], [address] GAP 12 Normal 5-15 [facility] Comment on above: Performed By: #### L 100.0100, L500.2500 ####[facility] [address] [place], [address] GFR/1.73 sq M.predicted among non-blacks MDRD (S/P/Bld) [Vol rate/Area] 55 mL/min/{1.73_m2} Low >60 [facility] Comment on above: Result Comment: mL/m in/1.73m2 CKD-EPI Creatinine Equation (2020) Performed By: #### L 100.0100, L500.2500 ####[facility] [address] [place], [place], [id number] Glucose [Mass/Vol] 156 mg/dL High 70-99 [facility] Comment on above: Performed By: #### L 100.0100, L500.2500 ####[facility] [address] [place], [address] Potassium [Moles/Vol] 3.9 mmol/L Normal 3.3-5.1 [facility] Comment on above: Performed By: #### L 100.0100, L500.2500 ####[facility] [address] [place], [address] Sodium [Moles/Vol] 138 mmol/L Normal 133-145 [facility] Comment on above: Performed By: #### L 100.0100, L500.2500 ####[facility] [address] [place], [address] Urea nitrogen [Mass/Vol] 20 mg/dL High 4-19 [facility] Comment on above: Performed By: #### L 100.0100, L500.2500 ####[facility] [address] [place], [address] Basophil percentageOrdered B y: Jalen Bernabetawnya on 06-16-2025 Basophils/100 WBC (Bld) 0.7 % 0-1 [facility] Bilirubin Test strip Ql (U)O rdered By: Jalen Bernabetawnya on 06-16-2025 Bilirubin Ql (U) Negative Negative [facility] CBC W/Diff, Automatedon 05-29-2024 Absolute Lymph 1.68 X10 3/uL Normal 0.83-4.51 [facility] Comment on above: Performed By: #### L 100.0100, L500.2500 ####[facility] [address] [place], [address] Absolute Neut 5.7 X10 3/uL Normal 2.0-7.7 [facility] Comment on above: Performed By: #### L 100.0100, L500.2500 ####[facility] [address] [place], [address] Basophils/100 WBC (Bld) 0.7 % Normal 0-1 [facility] Comment on above: Performed By: #### L 100.0100, L500.2500 ####[facility] [address] [place], [address] Eosinophils/100 WBC (Bld) 4.5 % Normal 0-5 [facility] Comment on above: Performed By: #### L 100.0100, L500.2500 ####[facility] [address] [place], [address] Erythrocyte distribution width (RBC) [Ratio] 15.1 % High 11.6-14.6 [facility] Comment on above: Performed By: #### L 100.0100, L500.2500 ####[facility] [address] [place], [address] Hematocrit (Bld) [Volume fraction] 32.1 % Low 37-47 [facility] Comment on above: Performed By: #### L 100.0100, L500.2500 ####[facility] [address] [place], [address] Hemoglobin (Bld) [Mass/Vol] 10.3 g/dL Low 12.0-15.0 [facility] Comment on above: Performed By: #### L 100.0100, L500.2500 ####[facility] [address] [place], [address] IG% 0.600 Normal 0.0-0.9 [facility] Comment on above: Result Comment: IG% - Immature Granulocytes (promyelocytes, myelocytes andmetamyelocytes) > 1% indicates that a LEFT SHIFT is Present. Performed By: #### L 100.0100, L500.2500 ####[facility] [address] [place], [address] Lymphocytes/100 WBC (Bld) 19.2 % Normal 19-41 [facility] Comment on above: Performed By: #### L 100.0100, L500.2500 ####[facility] [address] [place], [address] MCH (RBC) [Entitic mass] 29.7 pg Normal 27.0-32.0 [facility] Comment on above: Performed By: #### L 100.0100, L500.2500 ####[facility] [address] [place], [address] MCHC (RBC) [Mass/Vol] 32.1 g/dL Normal 32-36 [facility] Comment on above: Performed By: #### L 100.0100, L500.2500 ####[facility] [address] [place], [address] MCV (RBC) [Entitic vol] 92.5 fL Normal 81-99 [facility] Comment on above: Performed By: #### L 100.0100, L500.2500 ####[facility] [address] [place], [address] Monocytes/100 WBC (Bld) 9.6 % Normal 0-10 [facility] Comment on above: Performed By: #### L 100.0100, L500.2500 ####[facility] [address] [place], [address] Neutrophils/100 WBC (Bld) 65.4 % Normal 47-70 [facility] Comment on above: Performed By: #### L 100.0100, L500.2500 ####[facility] [address] [place], [address] Nucleated RBC (Bld) [#/Vol] 0 10*3/uL Normal 0-5 [facility] Comment on above: Performed By: #### L 100.0100, L500.2500 ####[facility] [address] [place], [address] Platelet mean volume (Bld) [Entitic vol] 9.6 fL Normal 6.2-12.0 [facility] Comment on above: Performed By: #### L 100.0100, L500.2500 ####[facility] [address] [place], [address] Platelets (Bld) [#/Vol] 242 10*3/uL Normal 150-450 [facility] Comment on above: Performed By: #### L 100.0100, L500.2500 ####[facility] [address] [place], [address] RBC (Bld) [#/Vol] 3.47 10*6/uL Low 4.2-5.4 [facility] Comment on above: Performed By: #### L 100.0100, L500.2500 ####[facility] [address] [place], [address] RDW SD 50.7 fl High 35.1-43.9 [facility] Comment on above: Performed By: #### L 100.0100, L500.2500 ####[facility] [address] [place], [address] WBC (Bld) [#/Vol] 8.7 10*3/uL Normal 4.4-11.0 [facility] Comment on above: Performed By: #### L 100.0100, L500.2500 ####[facility] [address] [place], [address] Carbon dioxide, total [Moles /volume] in Central venous bloodOrdered By: Jalen Delgado on 06-16-2025 CO2 [Moles/Vol] 25.7 mmol/L 21.0-32.0 [facility] Chest PA and Lateralon 06-16 Chest PA and Lateral Normal [facility] Chloride assayOrdered By: Royal Delgado on 06-16-2025 Chloride [Moles/Vol] 100 mmol/L 98-108 [facility] Emergency Department Summary on 06-16-2025 Emergency Department Summary Normal [facility] Eosinophil percentageOrdered By: Jalen Delgado on 06-16-2025 Eosinophils/100 WBC (Bld) 4.5 % 0-5 [facility] Erythrocyte distribution wid th ratioOrdered By: Jalen Delgado on 06-16-2025 Erythrocyte distribution width (RBC) [Ratio] 15.1 % High 11.6-14.6 [facility] Erythrocyte distribution wid th standard deviationOrdered By: Jalen Delgado on 06-16-2025 Erythrocyte distribution width (RBC) [Ratio] 50.7 fl High 35.1-43.9 [facility] Glomerular filtration rate ( GFR) estimation/1.73 sq m using serum, plasma, or whole bOrdered By: Jalen Delgado on 06-16-2025 GFR/1.73 sq M.predicted among non-blacks MDRD (S/P/Bld) [Vol rate/Area] 55 mL/min/{1.73_m2} Low >60 [facility] Comment on above: mL/min/1.73m2 CKD-EP I Creatinine Equation (2020) Hematocrit Auto (Bld) [Volum e fraction]Ordered By: Jalen Delgado on 06-16-2025 Hematocrit (Bld) [Volume fraction] 32.1 % Low 37-47 [facility] Hemoglobin measurementOrdere d By: Jalen Delgado on 06-16-2025 Hemoglobin (Bld) [Mass/Vol] 10.3 g/dL Low 12.0-15.0 [facility] Immature granulocytes/100 WB C Auto (Bld)Ordered By: Jalen Delgado on 06-16-2025 Immature granulocytes/100 WBC (Bld) 0.600 % 0.0-0.9 [facility] Comment on above: IG% - Immature Granu locytes (promyelocytes, myelocytes and metamyelocytes) > 1% indicates that a LEFT SHIFT is Present. Ketones Test strip Ql (U)Ord ered By: Jalen Delgado on 06-16-2025 Ketones Ql (U) Negative Negative [facility] MCV (mean corpuscular volume ) determinationOrdered By: Jalen Delgado on 06-16-2025 MCV (RBC) [Entitic vol] 92.5 fL 81-99 [facility] Mean corpuscular hemoglobin (MCH) determinationOrdered By: Jalen Delgado on 06-16-2025 MCH (RBC) [Entitic mass] 29.7 pg 27.0-32.0 [facility] Mean corpuscular hemoglobin concentration (MCHC) determinationOrdered By: Jalen Delgado on 06-16-2025 MCHC (RBC) [Mass/Vol] 32.1 g/dL 32-36 [facility] Mean platelet volume determi nationOrdered By: Jalen Delgado on 06-16-2025 Platelet mean volume (Bld) [Entitic vol] 9.6 fL 6.2-12.0 [facility] Microscopic analysis of urin e for red blood cells (RBC)Ordered By: Jalen Delgado on 06-16-2025 Microscopic analysis of urine for red blood cells (RBC) 0 SEEN /hpf 0-5 [facility] Monocyte percentageOrdered B y: Jalen Delgado on 06-16-2025 Monocytes/100 WBC (Bld) 9.6 % 0-10 [facility] Mucus LM Ql (Urine sed)Order ed By: Jalen Delgado on 06-16-2025 Mucus Ql (Urine sed) 0 SEEN /hpf [facility] Neutrophil percentageOrdered By: Jalen Delgado on 06-16-2025 Neutrophils/100 WBC (Bld) 65.4 % 47-70 [facility] Nitrite Test strip Ql (U)Ord ered By: Jalen Delgado on 06-16-2025 Nitrite Ql (U) Negative Negative [facility] Nucleated red blood cell per centageOrdered By: Jalen Delgado on 06-16-2025 Nucleated RBC/100 WBC (Bld) [Ratio] 0 % 0-5 [facility] Platelet countOrdered By: Royal Delgado on 06-16-2025 Platelets (Bld) [#/Vol] 242 10*3/uL 150-450 [facility] Potassium measurement (mass/ volume)Ordered By: Jalen Delgado on 06-16-2025 Potassium (Unsp spec) [Mass/Vol] 3.9 mmol/L 3.3-5.1 [facility] Protein Test strip Ql (U)Ord ered By: Jalen Delgado on 06-16-2025 Protein Ql (U) 30 mg/dl High Negative [facility] RBC Auto (Bld) [#/Vol]Ordere d By: Jalen Delgado on 06-16-2025 RBC (Bld) [#/Vol] 3.47 10*6/uL Low 4.2-5.4 [facility] Serum creatinine measurement (mass/volume)Ordered By: Jalen Delgado on 06-16-2025 Creatinine [Mass/Vol] 1.05 mg/dL 0.70-1.20 [facility] Serum glucose measurement (m ass/volume)Ordered By: Jalen Delgado on 06-16-2025 Glucose [Mass/Vol] 156 mg/dL High 70-99 [facility] Serum or plasma calcium sarbjit urement (mass/volume)Ordered By: Jalen Delgado on 06-16-2025 Calcium [Mass/Vol] 8.5 mg/dL 7.6-11.0 [facility] Serum or plasma urea nitroge n measurement (mass/volume)Ordered By: Jalen Delgado on 06-16-2025 Urea nitrogen [Mass/Vol] 20 mg/dL High 4-19 [facility] Sodium levelOrdered By: Jalen Delgado on 06-16-2025 Sodium [Moles/Vol] 138 mmol/L 133-145 [facility] Squamous epithelial cells de tection in urine sediment by light microscopyOrdered By: Jalen Delgado on 06-16-2025 Epithelial cells.squamous LM Ql (Urine sed) 0-5 SEEN /hpf - [facility] Urinalysis, Completeon 06-16 BACTERIA 1+ /hpf Normal None Seen [facility] Comment on above: Order Comment: CLEAN CATCH Performed By: #### L 400.0001 ####[facility] [address] [place] [id number] EPI,SQUAMOUS 0-5 SEEN Normal - [facility] Comment on above: Order Comment: CLEAN CATCH Performed By: #### L 400.0001 ####[facility] [address] [place], [address] WBC >100 SEEN Normal 0-5 [facility] Comment on above: Order Comment: CLEAN CATCH Performed By: #### L 400.0001 ####[facility] [address] [place], [address] Mucus Ql (Urine sed) 0 SEEN Normal [facility] Comment on above: Order Comment: CLEAN CATCH Performed By: #### L 400.0001 ####[facility] [address] [place], [address] RBC 0 SEEN Normal 0-5 [facility] Comment on above: Order Comment: CLEAN CATCH Performed By: #### L 400.0001 ####[facility] [address] [place], [place], [id number] Urine clarityOrdered By: Kelsey Delgado on 06-16-2025 Clarity (U) Cloudy Clear [facility] Urine color determinationOrd ered By: Jalen Delgado on 06-16-2025 Color (U) Yellow Yellow [facility] Urine glucose detectionOrder ed By: Jalen Delgado on 06-16-2025 Glucose Ql (U) Normal mg/dl Normal [facility] Urine leukocyte esterase det ection by dipstickOrdered By: Jalen Delgado on 06-16-2025 Leukocyte esterase Test strip Ql (U) 500 /ul High Negative [facility] Urine pHOrdered By: Jalen snowden on 06-16-2025 pH (U) 6.5 [pH] 5.0 - 8.0 [facility] Urine sediment bacteria coun t by microscopy (number/high power field)Ordered By: Jalen Delgado on 06-16-2025 Bacteria LM.HPF (Urine sed) [#/Area] 1 /[HPF] None Seen [facility] Urine specific gravity measu rementOrdered By: Jalen Delgado on 06-16-2025 Specific gravity (U) [Rel density] 1.010 1.002-1.030 [facility] Urine urobilinogen measureme ntOrdered By: Jalen Delgado on 06-16-2025 Urobilinogen Ql (U) 4 mg/dl High Normal [facility] White blood cell (WBC) count Ordered By: Jalen Delgado on 06-16-2025 WBC (Bld) [#/Vol] 8.7 10*3/uL 4.4-11.0 [facility] White blood cell countOrdere d By: Jalen Delgado on 06-16-2025 White blood cell count >100 SEEN /hpf 0-5 [facility] Culture, Anaerobic Any Sourc blaise 05-18-2025 CUAN Normal [facility] Comment on above: Performed By: #### M 100.2000, M100.4001, M100.3000 ####[facility] [address] [place], [place], [id number] Wound Cultureon 05-17-2025 WC Normal [facility] Comment on above: Performed By: #### M 100.2000, M100.4001, M100.3000 ####[facility] [address] [place], [address] Bedside Glucoseon 05-15-2025 FINGERSTICK GLU 231 mg/dL High 74-106 [facility] Comment on above: Result Comment: MAHAD GEMENT OF PATIENT CARE PER NURSING PROTOCOL Performed By: #### L 501.080 ####[facility] [address] [place], [address] FINGERSTICK GLU 198 mg/dL High 74-106 [facility] Comment on above: Result Comment: MAHAD GEMENT OF PATIENT CARE PER NURSING PROTOCOL Performed By: #### L 501.080 ####[facility] [address] [place], [address] [facility] deOrdered By: Flaco Yang on 05-15-2025 Glucose [Mass/Vol] 231 mg/dL High 74-106 [facility] Comment on above: MANAGEMENT OF PATIEN T CARE PER NURSING PROTOCOL Absolute lymphocyte countOrd ered By: Hari Miranda on 05-14-2025 Lymphocytes Auto (Unsp spec) [#/Vol] 1.56 10*3/uL 0.83-4.51 [facility] Absolute neutrophil countOrd ered By: Hari Miranda on 05-14-2025 Neutrophils (Bld) [#/Vol] 4.6 10*3/uL 2.0-7.7 [facility] Anion gap in Serum or Plasma Ordered By: Hari Miranda on 05-14-2025 Anion gap [Moles/Vol] 13 mmol/L 5-15 [facility] Automated lymphocyte count a s percentage of total leukocytesOrdered By: Hari Miranda on 05-14-2025 Lymphocytes/100 WBC Auto (Unsp spec) 19.5 % 19-41 [facility] BUN/creatinine ratioOrdered By: Hari Miranda on 05-14-2025 Urea nitrogen/Creatinine [Mass ratio] 26.1 mg/mg High 10-20 [facility] Basic Metabolic Profile (BMP )on 05-14-2025 BUN/CRE 26.1 RATIO High 10-20 [facility] Comment on above: Performed By: #### L 100.0100, L500.2500 ####[facility] [address] [place], [address] Calcium [Mass/Vol] 9.3 mg/dL Normal 7.6-11.0 [facility] Comment on above: Performed By: #### L 100.0100, L500.2500 ####[facility] [address] [place], [address] Chloride [Moles/Vol] 105 mmol/L Normal 98-108 [facility] Comment on above: Performed By: #### L 100.0100, L500.2500 ####[facility] [address] [place], [address] CO2 [Moles/Vol] 21.7 mmol/L Normal 21.0-32.0 [facility] Comment on above: Performed By: #### L 100.0100, L500.2500 ####[facility] [address] [place], [address] Creatinine [Mass/Vol] 1.09 mg/dL Normal 0.70-1.20 [facility] Comment on above: Performed By: #### L 100.0100, L500.2500 ####[facility] [address] [place], [address] ECRCL 50.89 ml/min Normal 50-250 [facility] Comment on above: Performed By: #### L 100.0100, L500.2500 ####[facility] [address] [place], [address] GAP 13 Normal 5-15 [facility] Comment on above: Performed By: #### L 100.0100, L500.2500 ####[facility] [address] [place], [address] GFR/1.73 sq M.predicted among non-blacks MDRD (S/P/Bld) [Vol rate/Area] 53 mL/min/{1.73_m2} Low >60 [facility] Comment on above: Result Comment: mL/m in/1.73m2 CKD-EPI Creatinine Equation (2020) Performed By: #### L 100.0100, L500.2500 ####[facility] [address] [place], [address] Glucose [Mass/Vol] 117 mg/dL High 70-99 [facility] Comment on above: Performed By: #### L 100.0100, L500.2500 ####[facility] [address] [place], [address] Potassium [Moles/Vol] 3.8 mmol/L Normal 3.3-5.1 [facility] Comment on above: Performed By: #### L 100.0100, L500.2500 ####[facility] [address] [place], [address] Sodium [Moles/Vol] 139 mmol/L Normal 133-145 [facility] Comment on above: Performed By: #### L 100.0100, L500.2500 ####[facility] [address] [place], [address] Urea nitrogen [Mass/Vol] 28 mg/dL High 4-19 [facility] Comment on above: Performed By: #### L 100.0100, L500.2500 ####[facility] [address] [place], [address] Basophil percentageOrdered B y: Hari Miranda on 05-14-2025 Basophils/100 WBC (Bld) 0.8 % 0-1 [facility] Bedside Glucoseon 05-14-2025 FINGERSTICK GLU 196 mg/dL High 74-106 [facility] Comment on above: Result Comment: MAHAD GEMENT OF PATIENT CARE PER NURSING PROTOCOL Performed By: #### L 501.080 ####[facility] [address] [place], [address] FINGERSTICK GLU 175 mg/dL High 74-106 [facility] Comment on above: Result Comment: MAHAD GEMENT OF PATIENT CARE PER NURSING PROTOCOL Performed By: #### L 501.080 ####[facility] [address] [place], [address] FINGERSTICK GLU 146 mg/dL High 74-106 [facility] Comment on above: Result Comment: MAHAD GEMENT OF PATIENT CARE PER NURSING PROTOCOL Performed By: #### L 501.080 ####[facility] [address] [place], [address] FINGERSTICK GLU 109 mg/dL High 74-106 [facility] Comment on above: Result Comment: MAHAD GEMENT OF PATIENT CARE PER NURSING PROTOCOL Performed By: #### L 501.080 ####[facility] [address] [place], [address] CBC W/Diff, Automatedon 04-27 Absolute Lymph 1.56 X10 3/uL Normal 0.83-4.51 [facility] Comment on above: Performed By: #### L 100.0100, L500.2500 ####[facility] [address] [place], [address] Absolute Neut 4.6 X10 3/uL Normal 2.0-7.7 [facility] Comment on above: Performed By: #### L 100.0100, L500.2500 ####[facility] [address] [place], [address] Basophils/100 WBC (Bld) 0.8 % Normal 0-1 [facility] Comment on above: Performed By: #### L 100.0100, L500.2500 ####[facility] [address] [place], [address] Eosinophils/100 WBC (Bld) 13.9 % High 0-5 [facility] Comment on above: Performed By: #### L 100.0100, L500.2500 ####[facility] [address] [place], [address] Erythrocyte distribution width (RBC) [Ratio] 14.8 % High 11.6-14.6 [facility] Comment on above: Performed By: #### L 100.0100, L500.2500 ####[facility] [address] [place], [address] Hematocrit (Bld) [Volume fraction] 27.1 % Low 37-47 [facility] Comment on above: Performed By: #### L 100.0100, L500.2500 ####[facility] [address] [place], [address] Hemoglobin (Bld) [Mass/Vol] 8.8 g/dL Low 12.0-15.0 [facility] Comment on above: Performed By: #### L 100.0100, L500.2500 ####[facility] [address] [place], [address] IG% 1.000 High 0.0-0.9 [facility] Comment on above: Result Comment: IG% - Immature Granulocytes (promyelocytes, myelocytes andmetamyelocytes) > 1% indicates that a LEFT SHIFT is Present. Performed By: #### L 100.0100, L500.2500 ####[facility] [address] [place], [address] Lymphocytes/100 WBC (Bld) 19.5 % Normal 19-41 [facility] Comment on above: Performed By: #### L 100.0100, L500.2500 ####[facility] [address] [place], [address] MCH (RBC) [Entitic mass] 30.3 pg Normal 27.0-32.0 [facility] Comment on above: Performed By: #### L 100.0100, L500.2500 ####[facility] [address] [place], [address] MCHC (RBC) [Mass/Vol] 32.5 g/dL Normal 32-36 [facility] Comment on above: Performed By: #### L 100.0100, L500.2500 ####[facility] [address] [place], [address] MCV (RBC) [Entitic vol] 93.4 fL Normal 81-99 [facility] Comment on above: Performed By: #### L 100.0100, L500.2500 ####[facility] [address] [place], [address] Monocytes/100 WBC (Bld) 7.9 % Normal 0-10 [facility] Comment on above: Performed By: #### L 100.0100, L500.2500 ####[facility] [address] [place], [address] Neutrophils/100 WBC (Bld) 56.9 % Normal 47-70 [facility] Comment on above: Performed By: #### L 100.0100, L500.2500 ####[facility] [address] [place], [address] Nucleated RBC (Bld) [#/Vol] 0 10*3/uL Normal 0-5 [facility] Comment on above: Performed By: #### L 100.0100, L500.2500 ####[facility] [address] [place], [address] Platelet mean volume (Bld) [Entitic vol] 9.4 fL Normal 6.2-12.0 [facility] Comment on above: Performed By: #### L 100.0100, L500.2500 ####[facility] [address] [place], [address] Platelets (Bld) [#/Vol] 185 10*3/uL Normal 150-450 [facility] Comment on above: Performed By: #### L 100.0100, L500.2500 ####[facility] [address] [place], [address] RBC (Bld) [#/Vol] 2.90 10*6/uL Low 4.2-5.4 [facility] Comment on above: Performed By: #### L 100.0100, L500.2500 ####[facility] [address] [place], [address] RDW SD 50.6 fl High 35.1-43.9 [facility] Comment on above: Performed By: #### L 100.0100, L500.2500 ####[facility] [address] [place], [address] WBC (Bld) [#/Vol] 8.0 10*3/uL Normal 4.4-11.0 [facility] Comment on above: Performed By: #### L 100.0100, L500.2500 ####[facility] [address] [place], [address] Carbon dioxide, total [Moles /volume] in Central venous bloodOrdered By: Hari Miranda on 05-14-2025 CO2 [Moles/Vol] 21.7 mmol/L 21.0-32.0 [facility] Chloride assayOrdered By: Nando Miranda on 05-14-2025 Chloride [Moles/Vol] 105 mmol/L 98-108 [facility] Eosinophil percentageOrdered By: Hari Miranda on 05-14-2025 Eosinophils/100 WBC (Bld) 13.9 % High 0-5 [facility] Erythrocyte distribution wid th ratioOrdered By: Hari Miranda on 05-14-2025 Erythrocyte distribution width (RBC) [Ratio] 14.8 % High 11.6-14.6 [facility] Erythrocyte distribution wid th standard deviationOrdered By: Hari Miranda on 05-14-2025 Erythrocyte distribution width (RBC) [Ratio] 50.6 fl High 35.1-43.9 [facility] Glomerular filtration rate ( GFR) estimation/1.73 sq m using serum, plasma, or whole bOrdered By: Hari Miranda on 05-14-2025 GFR/1.73 sq M.predicted among non-blacks MDRD (S/P/Bld) [Vol rate/Area] 53 mL/min/{1.73_m2} Low >60 [facility] Comment on above: mL/min/1.73m2 CKD-EP I Creatinine Equation (2020) Hematocrit Auto (Bld) [Volum e fraction]Ordered By: Hari Miranda on 05-14-2025 Hematocrit (Bld) [Volume fraction] 27.1 % Low 37-47 [facility] Hemoglobin measurementOrdere d By: Hari Miranda on 05-14-2025 Hemoglobin (Bld) [Mass/Vol] 8.8 g/dL Low 12.0-15.0 [facility] Immature granulocytes/100 WB C Auto (Bld)Ordered By: Hari Miranda on 05-14-2025 Immature granulocytes/100 WBC (Bld) 1.000 % High 0.0-0.9 [facility] Comment on above: IG% - Immature Granu locytes (promyelocytes, myelocytes and metamyelocytes) > 1% indicates that a LEFT SHIFT is Present. MCV (mean corpuscular volume ) determinationOrdered By: Hari Miranda on 05-14-2025 MCV (RBC) [Entitic vol] 93.4 fL 81-99 [facility] Mean corpuscular hemoglobin (MCH) determinationOrdered By: Hari Miranda on 05-14-2025 MCH (RBC) [Entitic mass] 30.3 pg 27.0-32.0 [facility] Mean corpuscular hemoglobin concentration (MCHC) determinationOrdered By: Hari Miranda on 05-14-2025 MCHC (RBC) [Mass/Vol] 32.5 g/dL 32-36 [facility] Mean platelet volume determi nationOrdered By: Hari Miranda on 05-14-2025 Platelet mean volume (Bld) [Entitic vol] 9.4 fL 6.2-12.0 [facility] Monocyte percentageOrdered B y: Hari Miranda on 05-14-2025 Monocytes/100 WBC (Bld) 7.9 % 0-10 [facility] Neutrophil percentageOrdered By: Hari Miranda on 05-14-2025 Neutrophils/100 WBC (Bld) 56.9 % 47-70 [facility] Nucleated red blood cell per centageOrdered By: Hari Miranda on 05-14-2025 Nucleated RBC/100 WBC (Bld) [Ratio] 0 % 0-5 [facility] Platelet countOrdered By: Nando Miranda on 05-14-2025 Platelets (Bld) [#/Vol] 185 10*3/uL 150-450 [facility] Potassium measurement (mass/ volume)Ordered By: Hari Miranda on 05-14-2025 Potassium (Unsp spec) [Mass/Vol] 3.8 mmol/L 3.3-5.1 [facility] RBC Auto (Bld) [#/Vol]Ordere d By: Hari Miranda on 05-14-2025 RBC (Bld) [#/Vol] 2.90 10*6/uL Low 4.2-5.4 [facility] Serum creatinine measurement (mass/volume)Ordered By: Hari Miranda on 05-14-2025 Creatinine [Mass/Vol] 1.09 mg/dL 0.70-1.20 [facility] Serum glucose measurement (m ass/volume)Ordered By: Hari Miranda on 05-14-2025 Glucose [Mass/Vol] 117 mg/dL High 70-99 [facility] Serum or plasma calcium sarbjit urement (mass/volume)Ordered By: Hari Miranda on 05-14-2025 Calcium [Mass/Vol] 9.3 mg/dL 7.6-11.0 [facility] Serum or plasma urea nitroge n measurement (mass/volume)Ordered By: Hari Miranda on 05-14-2025 Urea nitrogen [Mass/Vol] 28 mg/dL High 4-19 [facility] Sodium levelOrdered By: Leticia Miranda on 05-14-2025 Sodium [Moles/Vol] 139 mmol/L 133-145 [facility] White blood cell (WBC) count Ordered By: Hari Miranda on 05-14-2025 WBC (Bld) [#/Vol] 8.0 10*3/uL 4.4-11.0 [facility] Arterial study reportOrdered By: Roni Eller on 05-13-2025 Noninvasive arteriosclerosis study report [facility] [address] [place] [address] Lower Ext Art Exam w/o Exercis 05/11/25 1457 MR#: [id number] Acct: [id number] Name: EDUAR CABRERA Rep #:[id number] : 1950 75 From: Roni Eller MD Attending Dr: Dr. Hari Miranda MD Status: ADM IN Ordering Dr: Luis Bhardwaj DPM Date: 05/11/25 Location: U Sex: F C Admitted: 05/10/25 Reason For [...] ~ Date Dictated: 05/11/257 Date Transcribed: 05/13/252014 Supervisor Telephone Information: Signed [facility] Other Phone: Basic Metabolic Profile (BMP )on 05-13-2025 BUN/CRE 26.1 RATIO High 10-20 [facility] Comment on above: Performed By: #### L 500.2500 ####[facility] [address] [place], [place], [address] Calcium [Mass/Vol] 8.9 mg/dL Normal 7.6-11.0 [facility] Comment on above: Performed By: #### L 500.2500 ####[facility] [address] [place], [place], [address] Chloride [Moles/Vol] 104 mmol/L Normal 98-108 [facility] Comment on above: Performed By: #### L 500.2500 ####[facility] [address] [place], [place], [address] CO2 [Moles/Vol] 22.9 mmol/L Normal 21.0-32.0 [facility] Comment on above: Performed By: #### L 500.2500 ####[facility] [address] [place], [address] Creatinine [Mass/Vol] 1.02 mg/dL Normal 0.70-1.20 [facility] Comment on above: Performed By: #### L 500.2500 ####[facility] [address] [place], [address] ECRCL 54.39 ml/min Normal 50-250 [facility] Comment on above: Performed By: #### L 500.2500 ####[facility] [address] [place], [address] GAP 11 Normal 5-15 [facility] Comment on above: Performed By: #### L 500.2500 ####[facility] [address] [place], [address] GFR/1.73 sq M.predicted among non-blacks MDRD (S/P/Bld) [Vol rate/Area] 57 mL/min/{1.73_m2} Low >60 [facility] Comment on above: Result Comment: mL/m in/1.73m2 CKD-EPI Creatinine Equation (2020) Performed By: #### L 500.2500 ####[facility] [address] [place], [address] Glucose [Mass/Vol] 111 mg/dL High 70-99 [facility] Comment on above: Performed By: #### L 500.2500 ####[facility] [address] [place], [address] Potassium [Moles/Vol] 4.3 mmol/L Normal 3.3-5.1 [facility] Comment on above: Performed By: #### L 500.2500 ####[facility] [address] [place], [address] Sodium [Moles/Vol] 138 mmol/L Normal 133-145 [facility] Comment on above: Performed By: #### L 500.2500 ####[facility] [address] [place], [address] Urea nitrogen [Mass/Vol] 27 mg/dL High 4-19 [facility] Comment on above: Performed By: #### L 500.2500 ####[facility] [address] [place], [address] Bedside Glucoseon 05-13-2025 FINGERSTICK GLU 97 mg/dL Normal 74-106 [facility] Comment on above: Result Comment: MAHAD GEMENT OF PATIENT CARE PER NURSING PROTOCOL Performed By: #### L 501.080 ####[facility] [address] [place], [address] FINGERSTICK GLU 119 mg/dL High 74-106 [facility] Comment on above: Result Comment: MAHAD GEMENT OF PATIENT CARE PER NURSING PROTOCOL Performed By: #### L 501.080 ####[facility] [address] [place], [address] FINGERSTICK GLU 134 mg/dL High 74-106 [facility] Comment on above: Result Comment: MAHAD GEMENT OF PATIENT CARE PER NURSING PROTOCOL Performed By: #### L 501.080 ####[facility] [address] [place], [address] FINGERSTICK GLU 115 mg/dL High 74-106 [facility] Comment on above: Result Comment: MAHAD GEMENT OF PATIENT CARE PER NURSING PROTOCOL Performed By: #### L 501.080 ####[facility] [address] [place], [address] Basic Metabolic Profile (BMP )on 05-12-2025 BUN/CRE 28.1 RATIO High 10-20 [facility] Comment on above: Performed By: #### L 100.0100, L500.2500 ####[facility] [address] [place], [address] Calcium [Mass/Vol] 8.6 mg/dL Normal 7.6-11.0 [facility] Comment on above: Performed By: #### L 100.0100, L500.2500 ####[facility] [address] [place], [address] Chloride [Moles/Vol] 103 mmol/L Normal 98-108 [facility] Comment on above: Performed By: #### L 100.0100, L500.2500 ####[facility] [address] [place], [address] CO2 [Moles/Vol] 21.6 mmol/L Normal 21.0-32.0 [facility] Comment on above: Performed By: #### L 100.0100, L500.2500 ####[facility] [address] [place], [address] Creatinine [Mass/Vol] 1.10 mg/dL Normal 0.70-1.20 [facility] Comment on above: Performed By: #### L 100.0100, L500.2500 ####[facility] [address] [place], [address] ECRCL 50.43 ml/min Normal 50-250 [facility] Comment on above: Performed By: #### L 100.0100, L500.2500 ####[facility] [address] [place], [address] GAP 11 Normal 5-15 [facility] Comment on above: Performed By: #### L 100.0100, L500.2500 ####[facility] [address] [place], [address] GFR/1.73 sq M.predicted among non-blacks MDRD (S/P/Bld) [Vol rate/Area] 52 mL/min/{1.73_m2} Low >60 [facility] Comment on above: Result Comment: mL/m in/1.73m2 CKD-EPI Creatinine Equation (2020) Performed By: #### L 100.0100, L500.2500 ####[facility] [address] [place], [address] Glucose [Mass/Vol] 108 mg/dL High 70-99 [facility] Comment on above: Performed By: #### L 100.0100, L500.2500 ####[facility] [address] [place], [address] Potassium [Moles/Vol] 3.9 mmol/L Normal 3.3-5.1 [facility] Comment on above: Performed By: #### L 100.0100, L500.2500 ####[facility] [address] [place], [address] Sodium [Moles/Vol] 136 mmol/L Normal 133-145 [facility] Comment on above: Performed By: #### L 100.0100, L500.2500 ####[facility] [address] [place], [address] Urea nitrogen [Mass/Vol] 31 mg/dL High 4-19 [facility] Comment on above: Performed By: #### L 100.0100, L500.2500 ####[facility] [address] [place], [address] Bedside Glucoseon 05-12-2025 FINGERSTICK GLU 152 mg/dL High 74-106 [facility] Comment on above: Result Comment: MAHAD GEMENT OF PATIENT CARE PER NURSING PROTOCOL Performed By: #### L 501.080 ####[facility] [address] [place], [address] FINGERSTICK GLU 130 mg/dL High 74-106 [facility] Comment on above: Result Comment: MAHAD GEMENT OF PATIENT CARE PER NURSING PROTOCOL Performed By: #### L 501.080 ####[facility] [address] [place], [address] FINGERSTICK GLU 128 mg/dL High 74-106 [facility] Comment on above: Result Comment: MAHAD GEMENT OF PATIENT CARE PER NURSING PROTOCOL Performed By: #### L 501.080 ####[facility] [address] [place], [address] FINGERSTICK GLU 149 mg/dL High 74-106 [facility] Comment on above: Result Comment: MAHAD GEMENT OF PATIENT CARE PER NURSING PROTOCOL Performed By: #### L 501.080 ####[facility] [address] [place], [address] FINGERSTICK GLU 104 mg/dL Normal 74-106 [facility] Comment on above: Result Comment: MAHAD GEMENT OF PATIENT CARE PER NURSING PROTOCOL Performed By: #### L 501.080 ####[facility] [address] [place], [address] FINGERSTICK GLU 135 mg/dL High 74-106 [facility] Comment on above: Result Comment: MAHAD GEMENT OF PATIENT CARE PER NURSING PROTOCOL Performed By: #### L 501.080 ####[facility] [address] [place], [address] CBC W/Diff, Automatedon 04-27 Absolute Lymph 1.42 X10 3/uL Normal 0.83-4.51 [facility] Comment on above: Performed By: #### L 100.0100, L500.2500 ####[facility] [address] [place], [address] Absolute Neut 4.6 X10 3/uL Normal 2.0-7.7 [facility] Comment on above: Performed By: #### L 100.0100, L500.2500 ####[facility] [address] [place], [address] Basophils/100 WBC (Bld) 0.7 % Normal 0-1 [facility] Comment on above: Performed By: #### L 100.0100, L500.2500 ####[facility] [address] [place], [address] Eosinophils/100 WBC (Bld) 17.1 % High 0-5 [facility] Comment on above: Performed By: #### L 100.0100, L500.2500 ####[facility] [address] [place], [address] Erythrocyte distribution width (RBC) [Ratio] 14.7 % High 11.6-14.6 [facility] Comment on above: Performed By: #### L 100.0100, L500.2500 ####[facility] [address] [place], [address] Hematocrit (Bld) [Volume fraction] 27.3 % Low 37-47 [facility] Comment on above: Performed By: #### L 100.0100, L500.2500 ####[facility] [address] [place], [address] Hemoglobin (Bld) [Mass/Vol] 8.8 g/dL Low 12.0-15.0 [facility] Comment on above: Performed By: #### L 100.0100, L500.2500 ####[facility] [address] [place], [address] IG% 1.000 High 0.0-0.9 [facility] Comment on above: Result Comment: IG% - Immature Granulocytes (promyelocytes, myelocytes andmetamyelocytes) > 1% indicates that a LEFT SHIFT is Present. Performed By: #### L 100.0100, L500.2500 ####[facility] [address] [place], [address] Lymphocytes/100 WBC (Bld) 17.4 % Low 19-41 [facility] Comment on above: Performed By: #### L 100.0100, L500.2500 ####[facility] [address] [place], [address] MCH (RBC) [Entitic mass] 30.3 pg Normal 27.0-32.0 [facility] Comment on above: Performed By: #### L 100.0100, L500.2500 ####[facility] [address] [place], [address] MCHC (RBC) [Mass/Vol] 32.2 g/dL Normal 32-36 [facility] Comment on above: Performed By: #### L 100.0100, L500.2500 ####[facility] [address] [place], [address] MCV (RBC) [Entitic vol] 94.1 fL Normal 81-99 [facility] Comment on above: Performed By: #### L 100.0100, L500.2500 ####[facility] [address] [place], [address] Monocytes/100 WBC (Bld) 7.6 % Normal 0-10 [facility] Comment on above: Performed By: #### L 100.0100, L500.2500 ####[facility] [address] [place], [address] Neutrophils/100 WBC (Bld) 56.2 % Normal 47-70 [facility] Comment on above: Performed By: #### L 100.0100, L500.2500 ####[facility] [address] [place], [address] Nucleated RBC (Bld) [#/Vol] 0 10*3/uL Normal 0-5 [facility] Comment on above: Performed By: #### L 100.0100, L500.2500 ####[facility] [address] [place], [address] Platelet mean volume (Bld) [Entitic vol] 9.6 fL Normal 6.2-12.0 [facility] Comment on above: Performed By: #### L 100.0100, L500.2500 ####[facility] [address] [place], [address] Platelets (Bld) [#/Vol] 173 10*3/uL Normal 150-450 [facility] Comment on above: Performed By: #### L 100.0100, L500.2500 ####[facility] [address] [place], [address] RBC (Bld) [#/Vol] 2.90 10*6/uL Low 4.2-5.4 [facility] Comment on above: Performed By: #### L 100.0100, L500.2500 ####[facility] [address] [place], [address] RDW SD 51.3 fl High 35.1-43.9 [facility] Comment on above: Performed By: #### L 100.0100, L500.2500 ####[facility] [address] [place], [address] WBC (Bld) [#/Vol] 8.2 10*3/uL Normal 4.4-11.0 [facility] Comment on above: Performed By: #### L 100.0100, L500.2500 ####[facility] [address] [place], [address] Magnetic resonance imaging r eportOrdered By: Scott Merino on 05-12-2025 Study report [facility] Imaging Services [address] [place] [address] Lower Ext No Joint W/WO Cont MR#: [id number] Acct: [id number] Name: EDUAR CABRERA Rep #: [id number] : 1950 F 75 From: Rubén Merino MD PCP: Dr. Corby Heller MD Status: ADM I N Study:Lower Ext No Joint W/WO Cont Date of Ex am: 05/11/25 Exam# [id number] Ordering Dr: Richi Lopez MD PROCEDURE: LOWER [...] tarsometatarsal and intertarsal joints effusion. Reading Location: [place] [address] CC: Dr. Holly Lopez MD; Dr. Corby Heller MD ~ Supervisor Telephone Information: Signed [facility] Absolute lymphocyte countOrd ered By: Holly Lopez on 05-11-2025 Lymphocytes Auto (Unsp spec) [#/Vol] 1.59 10*3/uL 0.83-4.51 [facility] Absolute neutrophil countOrd ered By: Holly Lopez on 05-11-2025 Neutrophils (Bld) [#/Vol] 7.5 10*3/uL 2.0-7.7 [facility] Anaerobic cultureOrdered By: Luis Bhardwaj on 05-11-2025 Bacteria identified Anaer cx Nom (Unsp spec) Schaalia turicensis Abnormal [facility] Bacteria identified Anaer cx Nom (Unsp spec) Anaerobic cocci Abnormal [facility] Bacteria identified Anaer cx Nom (Unsp spec) [place] odontolyticus Abnormal [facility] Anion gap in Serum or Plasma Ordered By: Holly Lopez on 05-11-2025 Anion gap [Moles/Vol] 11 mmol/L 5-15 [facility] Automated lymphocyte count a s percentage of total leukocytesOrdered By: Holly Lopez on 05-11-2025 Lymphocytes/100 WBC Auto (Unsp spec) 14.5 % Low 19-41 [facility] BUN/creatinine ratioOrdered By: Holly Lopez on 05-11-2025 Urea nitrogen/Creatinine [Mass ratio] 27.5 mg/mg High 10-20 [facility] Basic Metabolic Profile (BMP )on 05-11-2025 BUN/CRE 27.5 RATIO High 07-16 [facility] Comment on above: Performed By: #### L 101.9900, L100.0100, L501.6710, L500.2500, L501.9985 ####[facility] [address] [place], [address] Calcium [Mass/Vol] 8.6 mg/dL Normal 7.6-11.0 [facility] Comment on above: Performed By: #### L 101.9900, L100.0100, L501.6710, L500.2500, L501.9985 ####[facility] [address] [place], [address] Chloride [Moles/Vol] 105 mmol/L Normal 98-108 [facility] Comment on above: Performed By: #### L 101.9900, L100.0100, L501.6710, L500.2500, L501.9985 ####[facility] [address] [place], [address] CO2 [Moles/Vol] 21.2 mmol/L Normal 21.0-32.0 [facility] Comment on above: Performed By: #### L 101.9900, L100.0100, L501.6710, L500.2500, L501.9985 ####[facility] [address] [place], [address] Creatinine [Mass/Vol] 1.14 mg/dL Normal 0.70-1.20 [facility] Comment on above: Performed By: #### L 101.9900, L100.0100, L501.6710, L500.2500, L501.9985 ####[facility] [address] [place], [address] ECRCL 48.66 ml/min Low 50-250 [facility] Comment on above: Performed By: #### L 101.9900, L100.0100, L501.6710, L500.2500, L501.9985 ####[facility] [address] [place], [address] GAP 11 Normal 5-15 [facility] Comment on above: Performed By: #### L 101.9900, L100.0100, L501.6710, L500.2500, L501.9985 ####[facility] [address] [place], [address] GFR/1.73 sq M.predicted among non-blacks MDRD (S/P/Bld) [Vol rate/Area] 50 mL/min/{1.73_m2} Low >60 [facility] Comment on above: Result Comment: mL/m in/1.73m2 CKD-EPI Creatinine Equation (2020) Performed By: #### L 101.9900, L100.0100, L501.6710, L500.2500, L501.9985 ####[facility] [address] [place], [address] Glucose [Mass/Vol] 113 mg/dL High 70-99 [facility] Comment on above: Performed By: #### L 101.9900, L100.0100, L501.6710, L500.2500, L501.9985 ####[facility] [address] [place], [address] Potassium [Moles/Vol] 4.3 mmol/L Normal 3.3-5.1 [facility] Comment on above: Result Comment: Hemo lysis present, Results??could be affected.?? Performed By: #### L 101.9900, L100.0100, L501.6710, L500.2500, L501.9985 ####[facility] [address] [place], [address] Sodium [Moles/Vol] 137 mmol/L Normal 133-145 [facility] Comment on above: Performed By: #### L 101.9900, L100.0100, L501.6710, L500.2500, L501.9985 ####[facility] [address] [place], [address] Urea nitrogen [Mass/Vol] 31 mg/dL High 4-19 [facility] Comment on above: Performed By: #### L 101.9900, L100.0100, L501.6710, L500.2500, L501.9985 ####[facility] [address] [place], [address] Basophil percentageOrdered B y: Holly Lopez on 05-11-2025 Basophils/100 WBC (Bld) 0.4 % 0-1 [facility] Bedside Glucoseon 05-11-2025 FINGERSTICK GLU 114 mg/dL High 74-106 [facility] Comment on above: Result Comment: MAHAD GEMENT OF PATIENT CARE PER NURSING PROTOCOL Performed By: #### L 501.080 ####[facility] [address] [place], [address] FINGERSTICK GLU 148 mg/dL High 74-106 [facility] Comment on above: Result Comment: MAHAD GEMENT OF PATIENT CARE PER NURSING PROTOCOL Performed By: #### L 501.080 ####[facility] [address] [place], [address] FINGERSTICK GLU 113 mg/dL High 74-106 [facility] Comment on above: Result Comment: Insu keegan GivenMANAGEMENT OF PATIENT CARE PER NURSING PROTOCOL Performed By: #### L 501.080 ####[facility] [address] [place], [address] CBC W/Diff, Automatedon 04-27 Absolute Lymph 1.59 X10 3/uL Normal 0.83-4.51 [facility] Comment on above: Performed By: #### L 101.9900, L100.0100, L501.6710, L500.2500, L501.9985 ####[facility] [address] [place], [address] Absolute Neut 7.5 X10 3/uL Normal 2.0-7.7 [facility] Comment on above: Performed By: #### L 101.9900, L100.0100, L501.6710, L500.2500, L501.9985 ####[facility] [address] [place], [address] Basophils/100 WBC (Bld) 0.4 % Normal 0-1 [facility] Comment on above: Performed By: #### L 101.9900, L100.0100, L501.6710, L500.2500, L501.9985 ####[facility] [address] [place], [address] Eosinophils/100 WBC (Bld) 8.9 % High 0-5 [facility] Comment on above: Performed By: #### L 101.9900, L100.0100, L501.6710, L500.2500, L501.9985 ####[facility] [address] [place], [address] Erythrocyte distribution width (RBC) [Ratio] 15.1 % High 11.6-14.6 [facility] Comment on above: Performed By: #### L 101.9900, L100.0100, L501.6710, L500.2500, L501.9985 ####[facility] [address] [place], [address] Hematocrit (Bld) [Volume fraction] 27.8 % Low 37-47 [facility] Comment on above: Performed By: #### L 101.9900, L100.0100, L501.6710, L500.2500, L501.9985 ####[facility] [address] [place], [address] Hemoglobin (Bld) [Mass/Vol] 8.9 g/dL Low 12.0-15.0 [facility] Comment on above: Performed By: #### L 101.9900, L100.0100, L501.6710, L500.2500, L501.9985 ####[facility] [address] [place], [address] IG% 0.800 Normal 0.0-0.9 [facility] Comment on above: Result Comment: IG% - Immature Granulocytes (promyelocytes, myelocytes andmetamyelocytes) > 1% indicates that a LEFT SHIFT is Present. Performed By: #### L 101.9900, L100.0100, L501.6710, L500.2500, L501.9985 ####[facility] [address] [place], [address] Lymphocytes/100 WBC (Bld) 14.5 % Low 19-41 [facility] Comment on above: Performed By: #### L 101.9900, L100.0100, L501.6710, L500.2500, L501.9985 ####[facility] [address] [place], [address] MCH (RBC) [Entitic mass] 30.1 pg Normal 27.0-32.0 [facility] Comment on above: Performed By: #### L 101.9900, L100.0100, L501.6710, L500.2500, L501.9985 ####[facility] [address] [place], [address] MCHC (RBC) [Mass/Vol] 32.0 g/dL Normal 32-36 [facility] Comment on above: Performed By: #### L 101.9900, L100.0100, L501.6710, L500.2500, L501.9985 ####[facility] [address] [place], [address] MCV (RBC) [Entitic vol] 93.9 fL Normal 81-99 [facility] Comment on above: Performed By: #### L 101.9900, L100.0100, L501.6710, L500.2500, L501.9985 ####[facility] [address] [place], [address] Monocytes/100 WBC (Bld) 6.9 % Normal 0-10 [facility] Comment on above: Performed By: #### L 101.9900, L100.0100, L501.6710, L500.2500, L501.9985 ####[facility] [address] [place], [address] Neutrophils/100 WBC (Bld) 68.5 % Normal 47-70 [facility] Comment on above: Performed By: #### L 101.9900, L100.0100, L501.6710, L500.2500, L501.9985 ####[facility] [address] [place], [address] Nucleated RBC (Bld) [#/Vol] 0 10*3/uL Normal 0-5 [facility] Comment on above: Performed By: #### L 101.9900, L100.0100, L501.6710, L500.2500, L501.9985 ####[facility] [address] [place], [address] Platelet mean volume (Bld) [Entitic vol] 9.7 fL Normal 6.2-12.0 [facility] Comment on above: Performed By: #### L 101.9900, L100.0100, L501.6710, L500.2500, L501.9985 ####[facility] [address] [place], [address] Platelets (Bld) [#/Vol] 192 10*3/uL Normal 150-450 [facility] Comment on above: Performed By: #### L 101.9900, L100.0100, L501.6710, L500.2500, L501.9985 ####[facility] [address] [place], [address] RBC (Bld) [#/Vol] 2.96 10*6/uL Low 4.2-5.4 [facility] Comment on above: Performed By: #### L 101.9900, L100.0100, L501.6710, L500.2500, L501.9985 ####[facility] [address] [place], [place], [address] RDW SD 52.9 fl High 35.1-43.9 [facility] Comment on above: Performed By: #### L 101.9900, L100.0100, L501.6710, L500.2500, L501.9985 ####[facility] [address] [place], [address] WBC (Bld) [#/Vol] 11.0 10*3/uL Normal 4.4-11.0 [facility] Comment on above: Performed By: #### L 101.9900, L100.0100, L501.6710, L500.2500, L501.9985 ####[facility] [address] [place], [address] CRPon 05-11-2025 C-REACTIVE PROT 98.10 mg/L High 0.0-3.0 [facility] Comment on above: Performed By: #### L 101.9900, L100.0100, L501.6710, L500.2500, L501.9985 ####[facility] [address] [place], [place], [address] Carbon dioxide, total [Moles /volume] in Central venous bloodOrdered By: Holly Lopez on 05-11-2025 CO2 [Moles/Vol] 21.2 mmol/L 21.0-32.0 [facility] Chloride assayOrdered By: Samantha Lopez on 05-11-2025 Chloride [Moles/Vol] 105 mmol/L 98-108 [facility] Consultation - Infectious Dx on 05-11-2025 Consultation - Infectious Dx Normal [facility] Echocardiogram study reportO rdered By: Darren Dinh on 05-11-2025 Study report [facility] [address] [place] [address] Echo Complete W/ Contrast 05/11/25 0939 MR#: [id number] Acct: [id number] Name: EDUAR CABRERA Rep #:[id number] : 1950 75 From: Darren Whelan Attending Dr: Dr. Hari Miranda MD Status: ADM IN Ordering Dr: Holly Lopez MD Date: Location: [facility] Sex: F C Admitted: 05/10/25 Reason For [...] Heller Chi Performed By: Rose Marie Greenwood, RDBLANCO, RVT 05/11/25 1612 Date _ Darren Dinh MD CC: Dr. Holly Lopez MD; Dr. Hari Miranda MD; (more content not included)... [facility] Eosinophil percentageOrdered By: Holly Lopez on 05-11-2025 Eosinophils/100 WBC (Bld) 8.9 % High 0-5 [facility] Erythrocyte Sed Rateon 05-11 SED RATE 26 mm/hr Normal 0-30 [facility] Comment on above: Performed By: #### L 101.9900, L100.0100, L501.6710, L500.2500, L501.9985 ####[facility] [id number] [place], [place], [id number] Erythrocyte distribution wid th ratioOrdered By: Holly Lopez on 05-11-2025 Erythrocyte distribution width (RBC) [Ratio] 15.1 % High 11.6-14.6 [facility] Erythrocyte distribution wid th standard deviationOrdered By: Holly Lopez on 05-11-2025 Erythrocyte distribution width (RBC) [Ratio] 52.9 fl High 35.1-43.9 [facility] Erythrocyte sedimentation ra teOrdered By: Holly Lopez on 05-11-2025 ESR (Bld) [Velocity] 26 mm/h 0-30 [facility] Glomerular filtration rate ( GFR) estimation/1.73 sq m using serum, plasma, or whole bOrdered By: Holly Lopez on 05-11-2025 GFR/1.73 sq M.predicted among non-blacks MDRD (S/P/Bld) [Vol rate/Area] 50 mL/min/{1.73_m2} Low >60 [facility] Comment on above: mL/min/1.73m2 CKD-EP I Creatinine Equation (2020) Glucose measurement at [facility] deOrdered By: Hari Miranda on 05-11-2025 Glucose [Mass/Vol] 148 mg/dL High 74-106 [facility] Comment on above: MANAGEMENT OF PATIEN T CARE PER NURSING PROTOCOL Gram Stainon 05-11-2025 GS Positive Normal [facility] Comment on above: Performed By: #### M 100.2000, M100.4001, M100.3000 ####[facility] [address] [place], [place], [id number] Gram stainOrdered By: Susan Bhardwaj on 05-11-2025 Microscopic observation Gram stain Nom (Unsp spec) [facility] Hematocrit Auto (Bld) [Volum e fraction]Ordered By: Holly Lopez on 05-11-2025 Hematocrit (Bld) [Volume fraction] 27.8 % Low 37-47 [facility] Hemoglobin A1con 05-11-2025 HbA1c (Bld) [Mass fraction] 6.6 % High <=5.6 [facility] Comment on above: Result Comment: Norm al < 5.7 % Prediabetic 5.7 - 6.4 % Diabetic >or= 6.5 % Please note range changes. Performed By: #### L 101.9900, L100.0100, L501.6710, L500.2500, L501.9985 ####[facility] [address] [place], [address] Hemoglobin A1c percentageOrd ered By: Holly Lopez on 05-11-2025 HbA1c (Bld) [Mass fraction] 6.6 % High <5.7 [facility] Comment on above: Normal < 5.7 % Predi abetic 5.7 - 6.4 % Diabetic >or= 6.5 % Please note range changes. Hemoglobin measurementOrdere d By: Holly Lopez on 05-11-2025 Hemoglobin (Bld) [Mass/Vol] 8.9 g/dL Low 12.0-15.0 [facility] Immature granulocytes/100 WB C Auto (Bld)Ordered By: Holly Lopez on 05-11-2025 Immature granulocytes/100 WBC (Bld) 0.800 % 0.0-0.9 [facility] Comment on above: IG% - Immature Granu locytes (promyelocytes, myelocytes and metamyelocytes) > 1% indicates that a LEFT SHIFT is Present. Lower Ext Art Exam w/o Exerc corwin 05-11-2025 Lower Ext Art Exam w/o Exercis Normal [facility] Lower Ext No Joint W/WO Cont on 05-11-2025 Lower Ext No Joint W/WO Cont Normal [facility] MCV (mean corpuscular volume ) determinationOrdered By: Holly Lopez on 05-11-2025 MCV (RBC) [Entitic vol] 93.9 fL 81-99 [facility] MRSA Wound DNA by PCRon 04-27 MRSA DNA ASSAY Normal Negative [facility] Comment on above: Order Comment: left foot Result Comment: PT D ISCHARGED Performed By: #### L 8200.1075 ####[facility] [address] [place], [place], [id number] PROBE CHECK Normal [facility] Comment on above: Order Comment: left foot Result Comment: PT D ISCHARGED Performed By: #### L 8200.1075 ####[facility] [address] [place], [place], [id number] SA DNA ASSAY Normal Negative [facility] Comment on above: Order Comment: left foot Result Comment: PT D ISCHARGED Performed By: #### L 8200.1075 ####[facility] [address] [place], [place], [id number] SPC Normal [facility] Comment on above: Order Comment: left foot Result Comment: PT D ISCHARGED Performed By: #### L 8200.1075 ####[facility] [address] [place], [address] Mean corpuscular hemoglobin (MCH) determinationOrdered By: Holly Lopez on 05-11-2025 MCH (RBC) [Entitic mass] 30.1 pg 27.0-32.0 [facility] Mean corpuscular hemoglobin concentration (MCHC) determinationOrdered By: Holly Lopez on 05-11-2025 MCHC (RBC) [Mass/Vol] 32.0 g/dL 32-36 [facility] Mean platelet volume determi nationOrdered By: Holly Lopez on 05-11-2025 Platelet mean volume (Bld) [Entitic vol] 9.7 fL 6.2-12.0 [facility] Monocyte percentageOrdered B y: Hloly Lopez on 05-11-2025 Monocytes/100 WBC (Bld) 6.9 % 0-10 [facility] Neutrophil percentageOrdered By: Holly Lopez on 05-11-2025 Neutrophils/100 WBC (Bld) 68.5 % 47-70 [facility] Nucleated red blood cell per centageOrdered By: Holly Lopez on 05-11-2025 Nucleated RBC/100 WBC (Bld) [Ratio] 0 % 0-5 [facility] Platelet countOrdered By: Samantha Lopez on 05-11-2025 Platelets (Bld) [#/Vol] 192 10*3/uL 150-450 [facility] Potassium measurement (mass/ volume)Ordered By: Holly Lopez on 05-11-2025 Potassium (Unsp spec) [Mass/Vol] 4.3 mmol/L 3.3-5.1 [facility] Comment on above: Hemolysis present, R esults could be affected. RBC Auto (Bld) [#/Vol]Ordere d By: Holly Lopez on 05-11-2025 RBC (Bld) [#/Vol] 2.96 10*6/uL Low 4.2-5.4 [facility] Routine wound cultureOrdered By: Luis Bhardwaj on 05-11-2025 Microbial culture, routine Corynebacterium diphtheriae Abnormal [facility] Microbial culture, routine Streptococcus agalactiae (B) Abnormal [facility] Serum creatinine measurement (mass/volume)Ordered By: Holly Lopez on 05-11-2025 Creatinine [Mass/Vol] 1.14 mg/dL 0.70-1.20 [facility] Serum glucose measurement (m ass/volume)Ordered By: Holly Lopez on 05-11-2025 Glucose [Mass/Vol] 113 mg/dL High 70-99 [facility] Serum or plasma C reactive p rotein measurement (mass/volume)Ordered By: Holly Lopez on 05-11-2025 CRP [Mass/Vol] 98.10 mg/L High 0.0-3.0 [facility] Serum or plasma calcium sarbjit urement (mass/volume)Ordered By: Holly Lopez on 05-11-2025 Calcium [Mass/Vol] 8.6 mg/dL 7.6-11.0 [facility] Serum or plasma urea nitroge n measurement (mass/volume)Ordered By: Holly Lopez on 05-11-2025 Urea nitrogen [Mass/Vol] 31 mg/dL High 4-19 [facility] Serum or plasma uric acid me asurement (mass/volume)Ordered By: Luis Bhardwaj on 05-11-2025 Urate [Mass/Vol] 7.9 mg/dL High 2.6-6.0 [facility] Comment on above: The drugs N-Acetylcy steine and Metamizole may falsely depress this assay. Sodium levelOrdered By: Shady Lopez on 05-11-2025 Sodium [Moles/Vol] 137 mmol/L 133-145 [facility] Uric Acidon 05-11-2025 URIC 7.9 mg/dL High 2.6-6.0 [facility] Comment on above: Result Comment: The drugs N-Acetylcysteine and Metamizole may falselydepress this assay. Performed By: #### L 501.1400 ####[facility] [address] [place], [address] White blood cell (WBC) count Ordered By: Holly Lopez on 05-11-2025 WBC (Bld) [#/Vol] 11.0 10*3/uL 4.4-11.0 [facility] Absolute lymphocyte countOrd ered By: Crow Crabtree on 05-10-2025 Lymphocytes Auto (Unsp spec) [#/Vol] 2.02 10*3/uL 0.83-4.51 [facility] Absolute neutrophil countOrd ered By: Crow Thuy on 05-10-2025 Neutrophils (Bld) [#/Vol] 7.9 10*3/uL High 2.0-7.7 [facility] Anion gap in Serum or Plasma Ordered By: Crow Crabtree on 05-10-2025 Anion gap [Moles/Vol] 14 mmol/L 5-15 [facility] Automated lymphocyte count a s percentage of total leukocytesOrdered By: Crow Thuy on 05-10-2025 Lymphocytes/100 WBC Auto (Unsp spec) 17.4 % Low 19-41 [facility] BUN/creatinine ratioOrdered By: Crow Crabtree on 05-10-2025 Urea nitrogen/Creatinine [Mass ratio] 29.8 mg/mg High 10-20 [facility] Basic Metabolic Profile (BMP )on 05-10-2025 BUN/CRE 29.8 RATIO High 10-20 [facility] Comment on above: Performed By: #### L 501.9520, L101.9900, L100.0100, L500.2500, L501.6710 ####[facility] [address] [place], [address] Calcium [Mass/Vol] 9.6 mg/dL Normal 7.6-11.0 [facility] Comment on above: Performed By: #### L 501.9520, L101.9900, L100.0100, L500.2500, L501.6710 ####[facility] [address] [place], [address] Chloride [Moles/Vol] 101 mmol/L Normal 98-108 [facility] Comment on above: Performed By: #### L 501.9520, L101.9900, L100.0100, L500.2500, L501.6710 ####[facility] [address] [place], [address] CO2 [Moles/Vol] 23.5 mmol/L Normal 21.0-32.0 [facility] Comment on above: Performed By: #### L 501.9520, L101.9900, L100.0100, L500.2500, L501.6710 ####[facility] [address] [place], [address] Creatinine [Mass/Vol] 1.01 mg/dL Normal 0.70-1.20 [facility] Comment on above: Performed By: #### L 501.9520, L101.9900, L100.0100, L500.2500, L501.6710 ####[facility] [address] [place], [address] ECRCL 58.10 ml/min Normal 50-250 [facility] Comment on above: Performed By: #### L 501.9520, L101.9900, L100.0100, L500.2500, L501.6710 ####[facility] [address] [place], [address] GAP 14 Normal 5-15 [facility] Comment on above: Performed By: #### L 501.9520, L101.9900, L100.0100, L500.2500, L501.6710 ####[facility] [address] [place], [address] GFR/1.73 sq M.predicted among non-blacks MDRD (S/P/Bld) [Vol rate/Area] 58 mL/min/{1.73_m2} Low >60 [facility] Comment on above: Result Comment: mL/m in/1.73m2 CKD-EPI Creatinine Equation (2020) Performed By: #### L 501.9520, L101.9900, L100.0100, L500.2500, L501.6710 ####[facility] [address] [place], [address] Glucose [Mass/Vol] 152 mg/dL High 70-99 [facility] Comment on above: Performed By: #### L 501.9520, L101.9900, L100.0100, L500.2500, L501.6710 ####[facility] [address] [place], [address] Potassium [Moles/Vol] 3.9 mmol/L Normal 3.3-5.1 [facility] Comment on above: Performed By: #### L 501.9520, L101.9900, L100.0100, L500.2500, L501.6710 ####[facility] [address] [place], [address] Sodium [Moles/Vol] 138 mmol/L Normal 133-145 [facility] Comment on above: Performed By: #### L 501.9520, L101.9900, L100.0100, L500.2500, L501.6710 ####[facility] [address] [place], [address] Urea nitrogen [Mass/Vol] 30 mg/dL High 4-19 [facility] Comment on above: Performed By: #### L 501.9520, L101.9900, L100.0100, L500.2500, L501.6710 ####[facility] [address] [place], [address] Basophil percentageOrdered B y: Crow Le on 05-10-2025 Basophils/100 WBC (Bld) 0.3 % 0-1 [facility] Bedside Glucoseon 05-10-2025 FINGERSTICK GLU 170 mg/dL High 74-106 [facility] Comment on above: Result Comment: MAHAD BUCKLEY OF PATIENT CARE PER NURSING PROTOCOL Performed By: #### L 501.080 ####[facility] [address] [place], [address] Blood manual differential co mment interpretation (narrative result)Ordered By: Crow Cratbree on 05-10-2025 Manual differential comment Olaf (Bld) [Interp] SCANNED [facility] CBC W/Diff, Automatedon 04-27 PLT EST ADEQUATE Normal ADEQ [facility] Comment on above: Performed By: #### L 501.9520, L101.9900, L100.0100, L500.2500, L501.6710 ####[facility] [address] [place], [place], [address] SMEAR COMMENT SCANNED Normal [facility] Comment on above: Performed By: #### L 501.9520, L101.9900, L100.0100, L500.2500, L501.6710 ####[facility] [address] [place], [place], [id number] CRPon 05-10-2025 C-REACTIVE PROT 85.00 mg/L High 0.0-3.0 [facility] Comment on above: Performed By: #### L 501.9520, L101.9900, L100.0100, L500.2500, L501.6710 ####[facility] [address] [place], [place], [id number] Carbon dioxide, total [Moles /volume] in Central venous bloodOrdered By: Crow Crabtree on 05-10-2025 CO2 [Moles/Vol] 23.5 mmol/L 21.0-32.0 [facility] Chloride assayOrdered By: Murphy Crabtree on 05-10-2025 Chloride [Moles/Vol] 101 mmol/L 98-108 [facility] Echo Complete W/ Contraston 05-10-2025 Echo Complete W/ Contrast Normal [facility] Emergency Department Summary on 05-10-2025 Emergency Department Summary Normal [facility] Eosinophil percentageOrdered By: Crow Crabtree on 05-10-2025 Eosinophils/100 WBC (Bld) 6.7 % High 0-5 [facility] Erythrocyte Sed Rateon 05-10 SED RATE 37 mm/hr High 0-30 [facility] Comment on above: Performed By: #### L 501.9520, L101.9900, L100.0100, L500.6591, L501.6711 ####[facility] [address] [place], [address] Erythrocyte distribution wid th ratioOrdered By: Crow Crabtree on 05-10-2025 Erythrocyte distribution width (RBC) [Ratio] 15.2 % High 11.6-14.6 [facility] Erythrocyte distribution wid th standard deviationOrdered By: Crow Crabtree on 05-10-2025 Erythrocyte distribution width (RBC) [Ratio] 52.8 fl High 35.1-43.9 [facility] Erythrocyte sedimentation ra teOrdered By: Crow Crabtree on 05-10-2025 ESR (Bld) [Velocity] 37 mm/h High 0-30 [facility] Foot min 3 Viewson 5 Foot min 3 Views Normal [facility] Glomerular filtration rate ( GFR) estimation/1.73 sq m using serum, plasma, or whole bOrdered By: Crow Crabtree on 05-10-2025 GFR/1.73 sq M.predicted among non-blacks MDRD (S/P/Bld) [Vol rate/Area] 58 mL/min/{1.73_m2} Low >60 [facility] Comment on above: mL/min/1.73m2 CKD-EP I Creatinine Equation (2020) H AND P Exam - Hospitaliston 05-10-2025 H&P Exam - Hospitalist Normal [facility] Hematocrit Auto (Bld) [Volum e fraction]Ordered By: Crow Crabtree on 05-10-2025 Hematocrit (Bld) [Volume fraction] 33.8 % Low 37-47 [facility] Hemoglobin measurementOrdere d By: Crow Crabtree on 05-10-2025 Hemoglobin (Bld) [Mass/Vol] 10.9 g/dL Low 12.0-15.0 [facility] Immature granulocytes/100 WB C Auto (Bld)Ordered By: Crow Crabtree on 05-10-2025 Immature granulocytes/100 WBC (Bld) 0.800 % 0.0-0.9 [facility] Comment on above: IG% - Immature Granu locytes (promyelocytes, myelocytes and metamyelocytes) > 1% indicates that a LEFT SHIFT is Present. Lactic Acidon 05-10-2025 Lactate [Moles/Vol] 1.7 mmol/L Normal 0.0-2.0 [facility] Comment on above: Order Comment: Y Performed By: #### L 503.6005 ####[facility] [address] [place], [address] Lactic acid measurementOrder ed By: Crow Crabtree on 05-10-2025 Lactate [Moles/Vol] 1.7 mmol/L 0.0-2.0 [facility] MCV (mean corpuscular volume ) determinationOrdered By: Crow Crabtree on 05-10-2025 MCV (RBC) [Entitic vol] 94.4 fL 81-99 [facility] Mean corpuscular hemoglobin (MCH) determinationOrdered By: Crow Crabtree on 05-10-2025 MCH (RBC) [Entitic mass] 30.4 pg 27.0-32.0 [facility] Mean corpuscular hemoglobin concentration (MCHC) determinationOrdered By: Crow Crabtree on 05-10-2025 MCHC (RBC) [Mass/Vol] 32.2 g/dL 32-36 [facility] Mean platelet volume determi nationOrdered By: Crow Crabtree on 05-10-2025 Platelet mean volume (Bld) [Entitic vol] 10.2 fL 6.2-12.0 [facility] Monocyte percentageOrdered B y: Crow Crabtree on 05-10-2025 Monocytes/100 WBC (Bld) 6.7 % 0-10 [facility] Neutrophil percentageOrdered By: Crow Crabtree on 05-10-2025 Neutrophils/100 WBC (Bld) 68.1 % 47-70 [facility] Nucleated red blood cell per centageOrdered By: Crow Crabtree on 05-10-2025 Nucleated RBC/100 WBC (Bld) [Ratio] 0 % 0-5 [facility] Platelet countOrdered By: Murphy Crabtree on 05-10-2025 Platelets (Bld) [#/Vol] 210 10*3/uL 150-450 [facility] Platelet estimateOrdered By: Crow Crabtree on 05-10-2025 Platelets LM Ql (Bld) ADEQUATE ADEQ [facility] Potassium measurement (mass/ volume)Ordered By: Crow Crabtree on 05-10-2025 Potassium (Unsp spec) [Mass/Vol] 3.9 mmol/L 3.3-5.1 [facility] RBC Auto (Bld) [#/Vol]Ordere d By: Crow Crabtree on 05-10-2025 RBC (Bld) [#/Vol] 3.58 10*6/uL Low 4.2-5.4 [facility] Serum creatinine measurement (mass/volume)Ordered By: Crow Crabtree on 05-10-2025 Creatinine [Mass/Vol] 1.01 mg/dL 0.70-1.20 [facility] Serum glucose measurement (m ass/volume)Ordered By: Crow Crabtree on 05-10-2025 Glucose [Mass/Vol] 152 mg/dL High 70-99 [facility] Serum or plasma C reactive p rotein measurement (mass/volume)Ordered By: Crow Crabtree on 05-10-2025 CRP [Mass/Vol] 85.00 mg/L High 0.0-3.0 [facility] Serum or plasma calcium sarbjit urement (mass/volume)Ordered By: Crow Crabtree on 05-10-2025 Calcium [Mass/Vol] 9.6 mg/dL 7.6-11.0 [facility] Serum or plasma urea nitroge n measurement (mass/volume)Ordered By: Crow Crabtree on 05-10-2025 Urea nitrogen [Mass/Vol] 30 mg/dL High 4-19 [facility] Sodium levelOrdered By: Crow Crabtree on 05-10-2025 Sodium [Moles/Vol] 138 mmol/L 133-145 [facility] TSH DL <= 0.005 mIU/L QnOrde red By: Crow Crabtree on 05-10-2025 TSH Qn 2.810 uIU/mL 0.300-4.200 [facility] Thyroid Stim Hormone (TSH)on 05-10-2025 TSH 2.810 uIU/mL Normal 0.300-4.200 [facility] Comment on above: Performed By: #### L 501.9520, L101.9900, L100.0100, L500.2500, L501.6710 ####[facility] [address] [place], [place], [id number] White blood cell (WBC) count Ordered By: Crow Crabtree on 05-10-2025 WBC (Bld) [#/Vol] 11.6 10*3/uL High 4.4-11.0 [facility] Absolute lymphocyte countOrd ered By: Coryb Heller on 05-03-2025 Lymphocytes Auto (Unsp spec) [#/Vol] 2.15 10*3/uL 0.83-4.51 [facility] Absolute neutrophil countOrd ered By: Corby Heller on 05-03-2025 Neutrophils (Bld) [#/Vol] 4.6 10*3/uL 2.0-7.7 [facility] Anion gap in Serum or Plasma Ordered By: Corby Heller on 05-03-2025 Anion gap [Moles/Vol] 13 mmol/L 5-15 [facility] Automated lymphocyte count a s percentage of total leukocytesOrdered By: Corby Heller on 05-03-2025 Lymphocytes/100 WBC Auto (Unsp spec) 28.6 % 19-41 [facility] BUN/creatinine ratioOrdered By: Corby Heller on 05-03-2025 Urea nitrogen/Creatinine [Mass ratio] 32.0 mg/mg High 10-20 [facility] Basophil percentageOrdered B y: Corby Heller on 05-03-2025 Basophils/100 WBC (Bld) 0.3 % 0-1 [facility] Bilirubin directOrdered By: Bella Prieto on 05-03-2025 Bilirubin.direct [Mass/Vol] 0.15 mg/dL 0.00-0.30 [facility] Bilirubin, Directon 05-03-20 25 Bilirubin.direct [Mass/Vol] 0.15 mg/dL Normal 0.00-0.30 [facility] Comment on above: Performed By: #### L 501.0900, L501.4700 ####[facility] [address] [place], [address] Bilirubin, totalOrdered By: Corby Heller on 08-07-2025 Bilirubin [Mass/Vol] 0.33 mg/dL 0.00-1.30 [facility] CBC W/Diff, Automatedon 08-0 7-2025 Absolute Lymph 2.15 X10 3/uL Normal 0.83-4.51 [facility] Comment on above: Performed By: #### L 501.9520, L502.0250, L100.0100, L500.4050, L506.1001 ####[facility] [address] [place], [address] Absolute Neut 4.6 X10 3/uL Normal 2.0-7.7 [facility] Comment on above: Performed By: #### L 501.9520, L502.0250, L100.0100, L500.4050, L506.1001 ####[facility] [address] [place], [address] Basophils/100 WBC (Bld) 0.3 % Normal 0-1 [facility] Comment on above: Performed By: #### L 501.9520, L502.0250, L100.0100, L500.4050, L506.1001 ####[facility] [address] [place], [address] Eosinophils/100 WBC (Bld) 3.9 % Normal 0-5 [facility] Comment on above: Performed By: #### L 501.9520, L502.0250, L100.0100, L500.4050, L506.1001 ####[facility] [address] [place], [address] Erythrocyte distribution width (RBC) [Ratio] 15.4 % High 11.6-14.6 [facility] Comment on above: Performed By: #### L 501.9520, L502.0250, L100.0100, L500.4050, L506.1001 ####[facility] [address] [place], [address] Hematocrit (Bld) [Volume fraction] 30.8 % Low 37-47 [facility] Comment on above: Performed By: #### L 501.9520, L502.0250, L100.0100, L500.4050, L506.1001 ####[facility] [address] [place], [address] Hemoglobin (Bld) [Mass/Vol] 9.8 g/dL Low 12.0-15.0 [facility] Comment on above: Performed By: #### L 501.9520, L502.0250, L100.0100, L500.4050, L506.1001 ####[facility] [address] [place], [address] IG% 0.300 Normal 0.0-0.9 [facility] Comment on above: Result Comment: IG% - Immature Granulocytes (promyelocytes, myelocytes andmetamyelocytes) > 1% indicates that a LEFT SHIFT is Present. Performed By: #### L 501.9520, L502.0250, L100.0100, L500.4050, L506.1001 ####[facility] [address] [place], [address] Lymphocytes/100 WBC (Bld) 28.6 % Normal 19-41 [facility] Comment on above: Performed By: #### L 501.9520, L502.0250, L100.0100, L500.4050, L506.1001 ####[facility] [address] [place], [address] MCH (RBC) [Entitic mass] 30.3 pg Normal 27.0-32.0 [facility] Comment on above: Performed By: #### L 501.9520, L502.0250, L100.0100, L500.4050, L506.1001 ####[facility] [address] [place], [address] MCHC (RBC) [Mass/Vol] 31.8 g/dL Low 32-36 [facility] Comment on above: Performed By: #### L 501.9520, L502.0250, L100.0100, L500.4050, L506.1001 ####[facility] [address] [place], [address] MCV (RBC) [Entitic vol] 95.4 fL Normal 81-99 [facility] Comment on above: Performed By: #### L 501.9520, L502.0250, L100.0100, L500.4050, L506.1001 ####[facility] [address] [place], [address] Monocytes/100 WBC (Bld) 6.5 % Normal 0-10 [facility] Comment on above: Performed By: #### L 501.9520, L502.0250, L100.0100, L500.4050, L506.1001 ####[facility] [address] [place], [address] Neutrophils/100 WBC (Bld) 60.4 % Normal 47-70 [facility] Comment on above: Performed By: #### L 501.9520, L502.0250, L100.0100, L500.4050, L506.1001 ####[facility] [address] [place], [address] Nucleated RBC (Bld) [#/Vol] 0 10*3/uL Normal 0-5 [facility] Comment on above: Performed By: #### L 501.9520, L502.0250, L100.0100, L500.4050, L506.1001 ####[facility] [address] [place], [address] Platelet mean volume (Bld) [Entitic vol] 10.7 fL Normal 6.2-12.0 [facility] Comment on above: Performed By: #### L 501.9520, L502.0250, L100.0100, L500.4050, L506.1001 ####[facility] [address] [place], [address] Platelets (Bld) [#/Vol] 201 10*3/uL Normal 150-450 [facility] Comment on above: Performed By: #### L 501.9520, L502.0250, L100.0100, L500.4050, L506.1001 ####[facility] [address] [place], [address] RBC (Bld) [#/Vol] 3.23 10*6/uL Low 4.2-5.4 [facility] Comment on above: Performed By: #### L 501.9520, L502.0250, L100.0100, L500.4050, L506.1001 ####[facility] [address] [place], [address] RDW SD 53.3 fl High 35.1-43.9 [facility] Comment on above: Performed By: #### L 501.9520, L502.0250, L100.0100, L500.4050, L506.1001 ####[facility] [address] [place], [address] WBC (Bld) [#/Vol] 7.5 10*3/uL Normal 4.4-11.0 [facility] Comment on above: Performed By: #### L 501.9520, L502.0250, L100.0100, L500.4050, L506.1001 ####[facility] [address] [place], [address] Carbon dioxide, total [Moles /volume] in Central venous bloodOrdered By: Corby Heller on 05-03-2025 CO2 [Moles/Vol] 20.2 mmol/L Low 21.0-32.0 [facility] Chloride assayOrdered By: Ryder issa Arron on 05-03-2025 Chloride [Moles/Vol] 106 mmol/L 98-108 [facility] Comprehensive Metabolic Prof ilon 05-03-2025 Albumin [Mass/Vol] 3.9 g/dL Normal 3.4-4.8 [facility] Comment on above: Order Comment: CC:CM P TO DR. TENZIN PRIETO Performed By: #### L 501.9520, L502.0250, L100.0100, L500.4050, L506.1001 ####[facility] [id number] [place], [address] Albumin/Globulin [Mass ratio] 1.1 {ratio} Normal 0.9-2.4 [facility] Comment on above: Order Comment: CC:CM P TO DR. TENZIN PRIETO Performed By: #### L 501.9520, L502.0250, L100.0100, L500.4050, L506.1001 ####[facility] [address] [place], [address] ALK PHOS 89 U/L Normal 35-104 [facility] Comment on above: Order Comment: CC:CM P TO DR. TENZIN PRIETO Performed By: #### L 501.9520, L502.0250, L100.0100, L500.4050, L506.1001 ####[facility] [address] [place], [address] ALT [Catalytic activity/Vol] 9 U/L Normal <=34 [facility] Comment on above: Order Comment: CC:CM P TO DR. TENZIN PRIETO Performed By: #### L 501.9520, L502.0250, L100.0100, L500.4050, L506.1001 ####[facility] [address] [place], [address] AST [Catalytic activity/Vol] 19 U/L Normal <=31 [facility] Comment on above: Order Comment: CC:CM P TO DR. TENZIN PRIETO Performed By: #### L 501.9520, L502.0250, L100.0100, L500.4050, L506.1001 ####[facility] [address] [place] [place], [address] Bilirubin [Mass/Vol] 0.33 mg/dL Normal 0.00-1.30 [facility] Comment on above: Order Comment: CC:CM P TO DR. TENZIN PRIETO Performed By: #### L 501.9520, L502.0250, L100.0100, L500.4050, L506.1001 ####[facility] [address] [place], [address] BUN/CRE 32.0 RATIO High 10-20 [facility] Comment on above: Order Comment: CC:CM P TO DR. TENZIN PRIETO Performed By: #### L 501.9520, L502.0250, L100.0100, L500.4050, L506.1001 ####[facility] [address] [place], [address] Calcium [Mass/Vol] 9.2 mg/dL Normal 7.6-11.0 [facility] Comment on above: Order Comment: CC:CM P TO DR. TENZIN PRIETO Performed By: #### L 501.9520, L502.0250, L100.0100, L500.4050, L506.1001 ####[facility] [address] [place], [address] Chloride [Moles/Vol] 106 mmol/L Normal 98-108 [facility] Comment on above: Order Comment: CC:CM P TO DR. TENZIN PRIETO Performed By: #### L 501.9520, L502.0250, L100.0100, L500.4050, L506.1001 ####[facility] [address] [place], [address] CO2 [Moles/Vol] 20.2 mmol/L Low 21.0-32.0 [facility] Comment on above: Order Comment: CC:CM P TO DR. TENZIN PRIETO Performed By: #### L 501.9520, L502.0250, L100.0100, L500.4050, L506.1001 ####[facility] [address] [place], [address] Creatinine [Mass/Vol] 1.10 mg/dL Normal 0.70-1.20 [facility] Comment on above: Order Comment: CC:CM P TO DR. TENZIN PRIETO Performed By: #### L 501.9520, L502.0250, L100.0100, L500.4050, L506.1001 ####[facility] [address] [place], [address] GAP 13 Normal 5-15 [facility] Comment on above: Order Comment: CC:CM P TO DR. TENZIN PRIETO Performed By: #### L 501.9520, L502.0250, L100.0100, L500.4050, L506.1001 ####[facility] [address] [place], [address] GFR/1.73 sq M.predicted among non-blacks MDRD (S/P/Bld) [Vol rate/Area] 52 mL/min/{1.73_m2} Low >60 [facility] Comment on above: Order Comment: CC:CM P TO DR. TENZIN PRIETO Result Comment: mL/m in/1.73m2 CKD-EPI Creatinine Equation (2020) Performed By: #### L 501.9520, L502.0250, L100.0100, L500.4050, L506.1001 ####[facility] [address] [place], [address] Globulin (S) [Mass/Vol] 3.4 g/dL Normal 2.2-4.2 [facility] Comment on above: Order Comment: CC:CM P TO DR. TENZIN PRIETO Performed By: #### L 501.9520, L502.0250, L100.0100, L500.4050, L506.1001 ####[facility] [address] [place], [address] Glucose [Mass/Vol] 178 mg/dL High 70-99 [facility] Comment on above: Order Comment: CC:CM P TO DR. TENZIN PRIETO Performed By: #### L 501.9520, L502.0250, L100.0100, L500.4050, L506.1001 ####[facility] [address] [place], [address] Potassium [Moles/Vol] 4.6 mmol/L Normal 3.3-5.1 [facility] Comment on above: Order Comment: CC:CM P TO DR. TENZIN PRIETO Performed By: #### L 501.9520, L502.0250, L100.0100, L500.4050, L506.1001 ####[facility] [address] [place], [address] Sodium [Moles/Vol] 139 mmol/L Normal 133-145 [facility] Comment on above: Order Comment: CC:CM P TO DR. TENZIN PRIETO Performed By: #### L 501.9520, L502.0250, L100.0100, L500.4050, L506.1001 ####[facility] [address] [place], [address] T PROT 7.3 g/dL Normal 5.9-8.4 [facility] Comment on above: Order Comment: CC:CM P TO DR. TENZIN PRIETO Performed By: #### L 501.9520, L502.0250, L100.0100, L500.4050, L506.1001 ####[facility] [address] [place], [address] Urea nitrogen [Mass/Vol] 35 mg/dL High 4-19 [facility] Comment on above: Order Comment: CC:CM P TO DR. TENZIN PRIETO Performed By: #### L 501.9520, L502.0250, L100.0100, L500.4050, L506.1001 ####[facility] [address] [place], [address] Eosinophil percentageOrdered By: [facility] on 05-03-2025 Eosinophils/100 WBC (Bld) 3.9 % 0-5 [facility] Erythrocyte distribution wid th ratioOrdered By: [facility] on 05-03-2025 Erythrocyte distribution width (RBC) [Ratio] 15.4 % High 11.6-14.6 [facility] Erythrocyte distribution wid th standard deviationOrdered By: [facility] Erythrocyte distribution width (RBC) [Ratio] 53.3 fl High 35.1-43.9 [facility] Glomerular filtration rate ( GFR) estimation/1.73 sq m using serum, plasma, or whole bOrdered By: [facility] on 05-03-2025 GFR/1.73 sq M.predicted among non-blacks MDRD (S/P/Bld) [Vol rate/Area] 52 mL/min/{1.73_m2} Low >60 [facility] Comment on above: mL/min/1.73m2 CKD-EP I Creatinine Equation (2020) Hematocrit Auto (Bld) [Volum e fraction]Ordered By: [facility] 05-03-2025 Hematocrit (Bld) [Volume fraction] 30.8 % Low 37-47 [facility] Hemoglobin measurementOrdere d By: Corby Heller 05-03-2025 Hemoglobin (Bld) [Mass/Vol] 9.8 g/dL Low 12.0-15.0 [facility] Immature granulocytes/100 WB C Auto (Bld)Ordered By: Corby Arron 05-03-2025 Immature granulocytes/100 WBC (Bld) 0.300 % 0.0-0.9 [facility] Comment on above: IG% - Immature Granu locytes (promyelocytes, myelocytes and metamyelocytes) > 1% indicates that a LEFT SHIFT is Present. Laboratory - Chemistry and C hemistry - challengeOrdered By: Corby Arron 05-03-2025 AST [Catalytic activity/Vol] 19 U/L <32 [facility] MCV (mean corpuscular volume ) determinationOrdered By: Corby Heller on 05-03-2025 MCV (RBC) [Entitic vol] 95.4 fL 81-99 [facility] Mean corpuscular hemoglobin (MCH) determinationOrdered By: Corby Heller on 05-03-2025 MCH (RBC) [Entitic mass] 30.3 pg 27.0-32.0 [facility] Mean corpuscular hemoglobin concentration (MCHC) determinationOrdered By: Corby Heller on 05-03-2025 MCHC (RBC) [Mass/Vol] 31.8 g/dL Low 32-36 [facility] Mean platelet volume determi nationOrdered By: Corby Heller on 05-03-2025 Platelet mean volume (Bld) [Entitic vol] 10.7 fL 6.2-12.0 [facility] Microalb:Creat Ratio,Random URon 05-03-2025 Creatinine [Mass/Vol] 120.00 mg/dL Normal 28.00-217.00 [facility] Comment on above: Performed By: #### L 501.9520, L502.0250, L100.0100, L500.4050, L506.1001 ####[facility] [address] [facility] [address] MALB:CREAT 158.3 mg/g CRE High <30 mg/g CRE [facility] Comment on above: Performed By: #### L 501.9520, L502.0250, L100.0100, L500.4050, L506.1001 ####[facility] [address] [place], [address] MICROALBUMIN,UR 190.0 mg/L Normal <20 mg/L [facility] Comment on above: Performed By: #### L 501.9520, L502.0250, L100.0100, L500.4050, L506.1001 ####[facility] [address] [place], [address] Monocyte percentageOrdered B y: Corby Conroyok on 05-03-2025 Monocytes/100 WBC (Bld) 6.5 % 0-10 [facility] Neutrophil percentageOrdered By: Corby Arron on 05-03-2025 Neutrophils/100 WBC (Bld) 60.4 % 47-70 [facility] Nucleated red blood cell per centageOrdered By: Corby Heller on 05-03-2025 Nucleated RBC/100 WBC (Bld) [Ratio] 0 % 0-5 [facility] Platelet countOrdered By: Ryder Heller on 05-03-2025 Platelets (Bld) [#/Vol] 201 10*3/uL 150-450 [facility] Potassium measurement (mass/ volume)Ordered By: Corby Heller on 05-03-2025 Potassium (Unsp spec) [Mass/Vol] 4.6 mmol/L 3.3-5.1 [facility] Protein+Creatinine Ratio,Uri neon 05-03-2025 PROT:CRE RATIO 452 mg/g CRE High 0-200 [facility] Comment on above: Performed By: #### L 501.0900, L501.4700 ####[facility] [address] [place], [address] Protein (U) [Mass/Vol] 52.0 mg/dL High 0.0-12.0 [facility] Comment on above: Performed By: #### L 501.0900, L501.4700 ####[facility] [address] [place], [address] UR CREAT 115.00 mg/dL Normal 28.00-217.00 [facility] Comment on above: Performed By: #### L 501.0900, L501.4700 ####[facility] [address] [place], [address] RBC Auto (Bld) [#/Vol]Ordere d By: Corby Heller on 05-03-2025 RBC (Bld) [#/Vol] 3.23 10*6/uL Low 4.2-5.4 [facility] Random urine creatinine sarbjit urement (mass/volume)Ordered By: Corby Heller on 05-03-2025 Creatinine Unsp time (U) [Mass/Vol] 120.00 mg/dL 28.00-217.00 [facility] Serum creatinine measurement (mass/volume)Ordered By: Corby Heller on 05-03-2025 Creatinine [Mass/Vol] 1.10 mg/dL 0.70-1.20 [facility] Serum globulin measurementOr dered By: Corby Heller on 05-03-2025 Globulin (S) [Mass/Vol] 3.4 g/dL 2.2-4.2 [facility] Serum glucose measurement (m ass/volume)Ordered By: Corby Heller on 05-03-2025 Glucose [Mass/Vol] 178 mg/dL High 70-99 [facility] Serum or plasma alanine saldana otransferase (ALT) measurementOrdered By: Corby Heller 05-03-2025 ALT [Catalytic activity/Vol] 9 U/L <35 [facility] Serum or plasma albumin sarbjit urement (mass/volume)Ordered By: Corby Heller on 05-03-2025 Albumin [Mass/Vol] 3.9 g/dL 3.4-4.8 [facility] Serum or plasma albumin/glob ulin mass ratioOrdered By: Corby Heller 05-03-2025 Albumin/Globulin [Mass ratio] 1.1 {ratio} 0.9-2.4 [facility] Serum or plasma alkaline louie sphatase measurementOrdered By: Corby Heller 05-03-2025 ALP [Catalytic activity/Vol] 89 U/L 35-104 [facility] Serum or plasma calcium sarbjit urement (mass/volume)Ordered By: Corby Heller 05-03-2025 Calcium [Mass/Vol] 9.2 mg/dL 7.6-11.0 [facility] Serum or plasma urea nitroge n measurement (mass/volume)Ordered By: Corby Heller on 05-03-2025 Urea nitrogen [Mass/Vol] 35 mg/dL High 4-19 [facility] Sodium levelOrdered By: Corby Heller 05-03-2025 Sodium [Moles/Vol] 139 mmol/L 133-145 [facility] TSH DL <= 0.005 mIU/L QnOrde red By: Corby Heller on 05-03-2025 TSH Qn 2.480 uIU/mL 0.300-4.200 [facility] Thyroid Stim Hormone (TSH)on 05-03-2025 TSH 2.480 uIU/mL Normal 0.300-4.200 [facility] Comment on above: Order Comment: CC:CM P TO DR. TENZIN PRIETO Performed By: #### L 501.9520, L502.0250, L100.0100, L500.4050, L506.1001 ####[facility] [address] [place], [place], [id number] Total proteinOrdered By: Corby Heller on 05-03-2025 Protein [Mass/Vol] 7.3 g/dL 5.9-8.4 [facility] Urine albumin measurement [facility] detection limit of 20 mg/L or less (mass/volume)Ordered By: Corby Heller on 05-03-2025 Albumin DL <= 20 mg/L (U) [Mass/Vol] 190.0 mg/L <20 mg/L [facility] Urine protein measurement (m ass/volume)Ordered By: Bella Prieto on 05-03-2025 Protein (U) [Mass/Vol] 52.0 mg/dL High 0.0-12.0 [facility] Urine protein/creatinine mas s ratioOrdered By: Bella Prieto on 05-03-2025 Protein/Creatinine (U) [Mass ratio] 452 mg/g CRE High 0-200 [facility] Vitamin D,25 Hydroxyon 05-03 Vitamin D 25-OH 48.0 ng/mL Normal 30-100 [facility] Comment on above: Order Comment: CC:MONTY P TO DR. TENZIN PRIETO Result Comment: Danelle min D StatusDeficiency: <20 ng/mL (50nmol/L)Insufficiency: 20-30 ng/mL (50-75 nmol/L)Sufficiency: 30-100 ng/mL (75-250 nmol/L)Toxicity: >100 ng/mL (>250 nmol/L) Performed By: #### L 501.9520, L502.0250, L100.0100, L500.4050, L506.1001 ####[facility] [address] [place], [address] White blood cell (WBC) count Ordered By: Corby Heller on 05-03-2025 WBC (Bld) [#/Vol] 7.5 10*3/uL 4.4-11.0 [facility] Microalb:Creat Ratio,Random URon 03-16-2025 MALB:CREAT 142.4 mg/g CRE Normal [facility] Comment on above: Result Comment: AMENDED REPORT 03/16/25 0832 MALB:CREAT previously reported as: 1424.5 mg/g CRE Performed By: #### L 502.0250 ####[facility] [address] [place], [place], [address] Bone density reportOrdered B y: Slade Boyd on 02-16-2025 Study report Skeletal system DXA [facility] Imaging Services [address] [place] [address] Dexa Bone Density/Append Skel MR#: [id number] Acct: [id number] Name: EDUAR CABRERA Rep #: [id number] : 1950 F 75 From: Marques Boyd MD PCP: Dr. Corby Heller MD Status: [facility] C FRED Study:Dexa Bone Density/Append Skel Date of E xam: 02/15/25 Exam# [id number] Ordering Dr: Corby Heller MD PROCEDURE: DEXA [...] Recommend follow-up as clinically warranted. Reading Location: [place] [address] CC: Dr. Corby Heller MD ~ Supervisor Telephone Information: Signed [facility] Breast imaging reportOrdered By: Nan Junior on 02-16-2025 Study report [facility] Imaging Services [address] [place] [address] SCRN MAMM (CAD)W/MARBIN BILAT MR#: [id number] Acct: [id number] Name: EDUAR CABRERA Rep #: [id number] : 1950 F 75 From: Jesse Blackwell MD PCP: Dr. Corby Heller MD Status: REG C FRED Study:SCRN MAMM (CAD)W/MARBIN BILAT Date of Exa m: 02/15/25 Exam# [id number] Ordering Dr: Corby Heller MD ADDENDUM by Dr. Nan Blackwell MD on 02/16/25 at 2052 Please note that prior breast examinations are now available for comparison. Reading Location: [id number] 02/16/252053 Date cc: Dr. Corby Heller MD [...] BI-RADS category 2 benign findings Reading Location: [facility] 02/16/252034 Date cc: Dr. Corby Heller MD [...] be mailed to the patient. Reading Location: [facility] CC: Dr. Corby Heller MD ~ Supervisor Telephone Information: Signed [facility] Dexa Bone Density/Append Ske latonya 02-15-2025 Dexa Bone Density/Append Skel Normal [facility] SCRN MAMM (CAD)W/MARBIN BILATo n 02-15-2025 SCRN MAMM (CAD)W/MARBIN BILAT Normal [facility] Absolute lymphocyte countOrd ered By: Corby Heller on 01-30-2025 Lymphocytes Auto (Unsp spec) [#/Vol] 1.90 10*3/uL 0.83-4.51 [facility] Absolute neutrophil countOrd ered By: Corby Heller on 01-30-2025 Neutrophils (Bld) [#/Vol] 6.0 10*3/uL 2.0-7.7 [facility] Anion gap in Serum or Plasma Ordered By: Corby Arron on 01-30-2025 Anion gap [Moles/Vol] 10 mmol/L 5-15 [facility] Automated lymphocyte count a s percentage of total leukocytesOrdered By: Corby Conroyok on 01-30-2025 Lymphocytes/100 WBC Auto (Unsp spec) 21.1 % 19-41 [facility] BUN/creatinine ratioOrdered By: Corby Arron on 01-30-2025 Urea nitrogen/Creatinine [Mass ratio] 22.9 mg/mg High 10-20 [facility] Basophil percentageOrdered B y: Corby Arron on 01-30-2025 Basophils/100 WBC (Bld) 0.7 % 0-1 [facility] Bilirubin, totalOrdered By: Corby Arron on 01-30-2025 Bilirubin [Mass/Vol] 0.26 mg/dL 0.00-1.30 [facility] CBC W/Diff, Automatedon Absolute Lymph 1.90 X10 3/uL Normal 0.83-4.51 [facility] Comment on above: Performed By: #### L 501.9520, L506.1001, L500.4050, L100.0100 ####[facility] [address] [place], [address] Absolute Neut 6.0 X10 3/uL Normal 2.0-7.7 [facility] Comment on above: Performed By: #### L 501.9520, L506.1001, L500.4050, L100.0100 ####[facility] [address] [place], [address] Basophils/100 WBC (Bld) 0.7 % Normal 0-1 [facility] Comment on above: Performed By: #### L 501.9520, L506.1001, L500.4050, L100.0100 ####[facility] [address] [place], [address] Eosinophils/100 WBC (Bld) 2.4 % Normal 0-5 [facility] Comment on above: Performed By: #### L 501.9520, L506.1001, L500.4050, L100.0100 ####[facility] [address] [place], [address] Erythrocyte distribution width (RBC) [Ratio] 15.0 % High 11.6-14.6 [facility] Comment on above: Performed By: #### L 501.9520, L506.1001, L500.4050, L100.0100 ####[facility] [address] [place], [address] Hematocrit (Bld) [Volume fraction] 33.3 % Low 37-47 [facility] Comment on above: Performed By: #### L 501.9520, L506.1001, L500.4050, L100.0100 ####[facility] [address] [place], [address] Hemoglobin (Bld) [Mass/Vol] 10.4 g/dL Low 12.0-15.0 [facility] Comment on above: Performed By: #### L 501.9520, L506.1001, L500.4050, L100.0100 ####[facility] [address] [place], [address] IG% 1.200 High 0.0-0.9 [facility] Comment on above: Result Comment: IG% - Immature Granulocytes (promyelocytes, myelocytes andmetamyelocytes) > 1% indicates that a LEFT SHIFT is Present. Performed By: #### L 501.9520, L506.1001, L500.4050, L100.0100 ####[facility] [address] [place], [address] Lymphocytes/100 WBC (Bld) 21.1 % Normal 19-41 [facility] Comment on above: Performed By: #### L 501.9520, L506.1001, L500.4050, L100.0100 ####[facility] [address] [place], [address] MCH (RBC) [Entitic mass] 29.5 pg Normal 27.0-32.0 [facility] Comment on above: Performed By: #### L 501.9520, L506.1001, L500.4050, L100.0100 ####[facility] [address] [place], [address] MCHC (RBC) [Mass/Vol] 31.2 g/dL Low 32-36 [facility] Comment on above: Performed By: #### L 501.9520, L506.1001, L500.4050, L100.0100 ####[facility] [address] [place], [address] MCV (RBC) [Entitic vol] 94.6 fL Normal 81-99 [facility] Comment on above: Performed By: #### L 501.9520, L506.1001, L500.4050, L100.0100 ####[facility] [address] [place], [address] Monocytes/100 WBC (Bld) 8.0 % Normal 0-10 [facility] Comment on above: Performed By: #### L 501.9520, L506.1001, L500.4050, L100.0100 ####[facility] [address] [place], [address] Neutrophils/100 WBC (Bld) 66.6 % Normal 47-70 [facility] Comment on above: Performed By: #### L 501.9520, L506.1001, L500.4050, L100.0100 ####[facility] [address] [place], [address] Nucleated RBC (Bld) [#/Vol] 0 10*3/uL Normal 0-5 [facility] Comment on above: Performed By: #### L 501.9520, L506.1001, L500.4050, L100.0100 ####[facility] [address] [place], [address] Platelet mean volume (Bld) [Entitic vol] 9.6 fL Normal 6.2-12.0 [facility] Comment on above: Performed By: #### L 501.9520, L506.1001, L500.4050, L100.0100 ####[facility] [address] [place], [address] Platelets (Bld) [#/Vol] 229 10*3/uL Normal 150-450 [facility] Comment on above: Performed By: #### L 501.9520, L506.1001, L500.4050, L100.0100 ####[facility] [address] [place], [address] RBC (Bld) [#/Vol] 3.52 10*6/uL Low 4.2-5.4 [facility] Comment on above: Performed By: #### L 501.9520, L506.1001, L500.4050, L100.0100 ####[facility] [address] [place], [address] RDW SD 51.3 fl High 35.1-43.9 [facility] Comment on above: Performed By: #### L 501.9520, L506.1001, L500.4050, L100.0100 ####[facility] [address] [place], [address] WBC (Bld) [#/Vol] 9.0 10*3/uL Normal 4.4-11.0 [facility] Comment on above: Performed By: #### L 501.9520, L506.1001, L500.4050, L100.0100 ####[facility] [address] [place], [address] Carbon dioxide, total [Moles /volume] in Central venous bloodOrdered By: Corby Heller on 01-30-2025 CO2 [Moles/Vol] 27.0 mmol/L 21.0-32.0 [facility] Chloride assayOrdered By: Ryder Heller on 01-30-2025 Chloride [Moles/Vol] 102 mmol/L 98-108 [facility] Comprehensive Metabolic Prof ilon 01-30-2025 Albumin [Mass/Vol] 3.7 g/dL Normal 3.4-4.8 [facility] Comment on above: Performed By: #### L 501.9520, L506.1001, L500.4050, L100.0100 ####[facility] [address] [place], [address] Albumin/Globulin [Mass ratio] 1.0 {ratio} Normal 0.9-2.4 [facility] Comment on above: Performed By: #### L 501.9520, L506.1001, L500.4050, L100.0100 ####[facility] [address] [place], [address] ALK PHOS 85 U/L Normal 35-104 [facility] Comment on above: Performed By: #### L 501.9520, L506.1001, L500.4050, L100.0100 ####[facility] [address] [place], [address] ALT [Catalytic activity/Vol] 13 U/L Normal <=34 [facility] Comment on above: Performed By: #### L 501.9520, L506.1001, L500.4050, L100.0100 ####[facility] [address] [place], [address] AST [Catalytic activity/Vol] 26 U/L Normal <=31 [facility] Comment on above: Performed By: #### L 501.9520, L506.1001, L500.4050, L100.0100 ####[facility] [address] [place], [address] Bilirubin [Mass/Vol] 0.26 mg/dL Normal 0.00-1.30 [facility] Comment on above: Performed By: #### L 501.9520, L506.1001, L500.4050, L100.0100 ####[facility] [address] [place], [address] BUN/CRE 22.9 RATIO High 10-20 [facility] Comment on above: Performed By: #### L 501.9520, L506.1001, L500.4050, L100.0100 ####[facility] [address] [place], [address] Calcium [Mass/Vol] 9.6 mg/dL Normal 7.6-11.0 [facility] Comment on above: Performed By: #### L 501.9520, L506.1001, L500.4050, L100.0100 ####[facility] [address] [place], [address] Chloride [Moles/Vol] 102 mmol/L Normal 98-108 [facility] Comment on above: Performed By: #### L 501.9520, L506.1001, L500.4050, L100.0100 ####[facility] [address] [place], [address] CO2 [Moles/Vol] 27.0 mmol/L Normal 21.0-32.0 [facility] Comment on above: Performed By: #### L 501.9520, L506.1001, L500.4050, L100.0100 ####[facility] [address] [place], [address] Creatinine [Mass/Vol] 1.12 mg/dL Normal 0.70-1.20 [facility] Comment on above: Performed By: #### L 501.9520, L506.1001, L500.4050, L100.0100 ####[facility] [address] [place], [address] GAP 10 Normal 5-15 [facility] Comment on above: Performed By: #### L 501.9520, L506.1001, L500.4050, L100.0100 ####[facility] [address] [place], [address] GFR/1.73 sq M.predicted among non-blacks MDRD (S/P/Bld) [Vol rate/Area] 51 mL/min/{1.73_m2} Low >60 [facility] Comment on above: Result Comment: mL/m in/1.73m2 CKD-EPI Creatinine Equation (2020) Performed By: #### L 501.9520, L506.1001, L500.4050, L100.0100 ####[facility] [address] [place], [address] Globulin (S) [Mass/Vol] 3.6 g/dL Normal 2.2-4.2 [facility] Comment on above: Performed By: #### L 501.9520, L506.1001, L500.4050, L100.0100 ####[facility] [address] [place], [address] Glucose [Mass/Vol] 139 mg/dL High 70-99 [facility] Comment on above: Performed By: #### L 501.9520, L506.1001, L500.4050, L100.0100 ####[facility] [address] [place], [address] Potassium [Moles/Vol] 4.7 mmol/L Normal 3.3-5.1 [facility] Comment on above: Performed By: #### L 501.9520, L506.1001, L500.4050, L100.0100 ####[facility] [id number] [place], [address] Sodium [Moles/Vol] 139 mmol/L Normal 133-145 [facility] Comment on above: Performed By: #### L 501.9520, L506.1001, L500.4050, L100.0100 ####[facility] [address] [place], [address] T PROT 7.2 g/dL Normal 5.9-8.4 [facility] Comment on above: Performed By: #### L 501.9520, L506.1001, L500.4050, L100.0100 ####[facility] [address] [place], [address] Urea nitrogen [Mass/Vol] 26 mg/dL High 4-19 [facility] Comment on above: Performed By: #### L 501.9520, L506.1001, L500.4050, L100.0100 ####[facility] [address] [place], [address] Eosinophil percentageOrdered By: Corby Heller on 01-30-2025 Eosinophils/100 WBC (Bld) 2.4 % 0-5 [facility] Erythrocyte distribution wid th ratioOrdered By: Corby Heller on 01-30-2025 Erythrocyte distribution width (RBC) [Ratio] 15.0 % High 11.6-14.6 [facility] Erythrocyte distribution wid th standard deviationOrdered By: Corby Heller on 01-30-2025 Erythrocyte distribution width (RBC) [Ratio] 51.3 fl High 35.1-43.9 [facility] Glomerular filtration rate ( GFR) estimation/1.73 sq m using serum, plasma, or whole bOrdered By: Corby Heller on 01-30-2025 GFR/1.73 sq M.predicted among non-blacks MDRD (S/P/Bld) [Vol rate/Area] 51 mL/min/{1.73_m2} Low >60 [facility] Comment on above: mL/min/1.73m2 CKD-EP I Creatinine Equation (2020) Hematocrit Auto (Bld) [Volum e fraction]Ordered By: Corby Heller on 01-30-2025 Hematocrit (Bld) [Volume fraction] 33.3 % Low 37-47 [facility] Hemoglobin measurementOrdere d By: Corby Heller on 01-30-2025 Hemoglobin (Bld) [Mass/Vol] 10.4 g/dL Low 12.0-15.0 [facility] Immature granulocytes/100 WB C Auto (Bld)Ordered By: Corby Heller 01-30-2025 Immature granulocytes/100 WBC (Bld) 1.200 % High 0.0-0.9 [facility] Comment on above: IG% - Immature Granu locytes (promyelocytes, myelocytes and metamyelocytes) > 1% indicates that a LEFT SHIFT is Present. Laboratory - Chemistry and C hemistry - challengeOrdered By: Corby Heller on 01-30-2025 AST [Catalytic activity/Vol] 26 U/L <32 [facility] MCV (mean corpuscular volume ) determinationOrdered By: Corby Heller 01-30-2025 MCV (RBC) [Entitic vol] 94.6 fL 81-99 [facility] Mean corpuscular hemoglobin (MCH) determinationOrdered By: Corby Heller 01-30-2025 MCH (RBC) [Entitic mass] 29.5 pg 27.0-32.0 [facility] Mean corpuscular hemoglobin concentration (MCHC) determinationOrdered By: Corby Heller 01-30-2025 MCHC (RBC) [Mass/Vol] 31.2 g/dL Low 32-36 [facility] Mean platelet volume determi nationOrdered By: Corby Heller 01-30-2025 Platelet mean volume (Bld) [Entitic vol] 9.6 fL 6.2-12.0 [facility] Monocyte percentageOrdered B y: Corby Heller on 01-30-2025 Monocytes/100 WBC (Bld) 8.0 % 0-10 [facility] Neutrophil percentageOrdered By: Corby Heller 01-30-2025 Neutrophils/100 WBC (Bld) 66.6 % 47-70 [facility] Nucleated red blood cell per centageOrdered By: Corby Heller on 01-30-2025 Nucleated RBC/100 WBC (Bld) [Ratio] 0 % 0-5 [facility] Platelet countOrdered By: Ryder Heller on 01-30-2025 Platelets (Bld) [#/Vol] 229 10*3/uL 150-450 [facility] Potassium measurement (mass/ volume)Ordered By: Corby Heller on 01-30-2025 Potassium (Unsp spec) [Mass/Vol] 4.7 mmol/L 3.3-5.1 [facility] Protein+Creatinine Ratio,Uri neon 01-30-2025 PROT:CRE RATIO Normal 0-200 [facility] Comment on above: Result Comment: @CATHY HOBBS SAID SHE ALREADY DID HER URINE IN OFFICE Performed By: #### L 500.3600, L501.0900 ####[facility] [address] [place], [address] PROTEIN,UR.RAN. Normal 0.0-12.0 [facility] Comment on above: Result Comment: @CATHY HOBBS SAID SHE ALREADY DID HER URINE IN OFFICE Performed By: #### L 500.3600, L501.0900 ####[facility] [address] [place], [address] UR CREAT Normal 28.00-217.00 [facility] Comment on above: Result Comment: @CATHY HOBBS SAID SHE ALREADY DID HER URINE IN OFFICE Performed By: #### L 500.3600, L501.0900 ####[facility] [address] [place], [address] RBC Auto (Bld) [#/Vol]Ordere d By: Corby Heller on 01-30-2025 RBC (Bld) [#/Vol] 3.52 10*6/uL Low 4.2-5.4 [facility] Random urine creatinine sarbjit urement (mass/volume)Ordered By: Corby Heller on 05-06-2025 Creatinine Unsp time (U) [Mass/Vol] 139.00 mg/dL 28.00-217.00 [facility] Renal Profileon 01-30-2025 Albumin [Mass/Vol] 3.7 g/dL Normal 3.4-4.8 [facility] Comment on above: Performed By: #### L 500.3600, L501.0900 ####[facility] [address] [place], [address] BUN/CRE 23.0 RATIO High 10-20 [facility] Comment on above: Performed By: #### L 500.3600, L501.0900 ####[facility] [address] [place], [address] Calcium [Mass/Vol] 9.6 mg/dL Normal 7.6-11.0 [facility] Comment on above: Performed By: #### L 500.3600, L501.0900 ####[facility] [address] [place], [address] Chloride [Moles/Vol] 101 mmol/L Normal 98-108 [facility] Comment on above: Performed By: #### L 500.3600, L501.0900 ####[facility] [address] [place], [address] CO2 [Moles/Vol] 26.8 mmol/L Normal 21.0-32.0 [facility] Comment on above: Performed By: #### L 500.3600, L501.0900 ####[facility] [address] [place], [address] Creatinine [Mass/Vol] 1.12 mg/dL Normal 0.70-1.20 [facility] Comment on above: Performed By: #### L 500.3600, L501.0900 ####[facility] [address] [place], [address] GAP 10 Normal 5-15 [facility] Comment on above: Performed By: #### L 500.3600, L501.0900 ####[facility] [address] [place], [address] GFR/1.73 sq M.predicted among non-blacks MDRD (S/P/Bld) [Vol rate/Area] 51 mL/min/{1.73_m2} Low >60 [facility] Comment on above: Result Comment: mL/m in/1.73m2 CKD-EPI Creatinine Equation (2020) Performed By: #### L 500.3600, L501.0900 ####[facility] [address] [place], [address] Glucose [Mass/Vol] 138 mg/dL High 70-99 [facility] Comment on above: Performed By: #### L 500.3600, L501.0900 ####[facility] [address] [place], [address] Phosphate [Mass/Vol] 2.9 mg/dL Normal 2.7-4.5 [facility] Comment on above: Performed By: #### L 500.3600, L501.0900 ####[facility] [address] [place], [address] Potassium [Moles/Vol] 4.6 mmol/L Normal 3.3-5.1 [facility] Comment on above: Performed By: #### L 500.3600, L501.0900 ####[facility] [address] [place], [address] Sodium [Moles/Vol] 138 mmol/L Normal 133-145 [facility] Comment on above: Performed By: #### L 500.3600, L501.0900 ####[facility] [address] [place], [address] Urea nitrogen [Mass/Vol] 26 mg/dL High 4-19 [facility] Comment on above: Performed By: #### L 500.3600, L501.0900 ####[facility] [address] [place], [address] Serum creatinine measurement (mass/volume)Ordered By: Corby Heller on 01-30-2025 Creatinine [Mass/Vol] 1.12 mg/dL 0.70-1.20 [facility] Serum globulin measurementOr dered By: Corby Heller on 01-30-2025 Globulin (S) [Mass/Vol] 3.6 g/dL 2.2-4.2 [facility] Serum glucose measurement (m ass/volume)Ordered By: Corby Heller on 01-30-2025 Glucose [Mass/Vol] 139 mg/dL High 70-99 [facility] Serum or plasma alanine saldana otransferase (ALT) measurementOrdered By: Corby Heller on 01-30-2025 ALT [Catalytic activity/Vol] 13 U/L <35 [facility] Serum or plasma albumin sarbjit urement (mass/volume)Ordered By: Corby Heller on 01-30-2025 Albumin [Mass/Vol] 3.7 g/dL 3.4-4.8 [facility] Serum or plasma albumin/glob ulin mass ratioOrdered By: Corby Heller 01-30-2025 Albumin/Globulin [Mass ratio] 1.0 {ratio} 0.9-2.4 [facility] Serum or plasma alkaline louie sphatase measurementOrdered By: Corby Heller 01-30-2025 ALP [Catalytic activity/Vol] 85 U/L 35-104 [facility] Serum or plasma calcium sarbjit urement (mass/volume)Ordered By: Corby Heller 01-30-2025 Calcium [Mass/Vol] 9.6 mg/dL 7.6-11.0 [facility] Serum or plasma urea nitroge n measurement (mass/volume)Ordered By: Corby Heller 01-30-2025 Urea nitrogen [Mass/Vol] 26 mg/dL High 4-19 [facility] Sodium levelOrdered By: Corby Heller 01-30-2025 Sodium [Moles/Vol] 139 mmol/L 133-145 [facility] TSH DL <= 0.005 mIU/L QnOrde red By: Corby Heller on 01-30-2025 TSH Qn 3.440 uIU/mL 0.300-4.200 [facility] Thyroid Stim Hormone (TSH)on 01-30-2025 TSH 3.440 uIU/mL Normal 0.300-4.200 [facility] Comment on above: Performed By: #### L 501.9520, L506.1001, L500.4050, L100.0100 ####[facility] [address] [place], [address] Total proteinOrdered By: Corby Heller on 01-30-2025 Protein [Mass/Vol] 7.2 g/dL 5.9-8.4 [facility] Urine albumin measurement [facility] detection limit of 20 mg/L or less (mass/volume)Ordered By: Corby Heller on 01-30-2025 Albumin DL <= 20 mg/L (U) [Mass/Vol] 198.0 mg/L NO RANGE EST. [facility] Vitamin D,25 Hydroxyon 01-30 Vitamin D 25-OH 40.9 ng/mL Normal 30-100 [facility] Comment on above: Result Comment: Danelle min D StatusDeficiency: <20 ng/mL (50nmol/L)Insufficiency: 20-30 ng/mL (50-75 nmol/L)Sufficiency: 30-100 ng/mL (75-250 nmol/L)Toxicity: >100 ng/mL (>250 nmol/L) Performed By: #### L 501.9520, L506.1001, L500.4050, L100.0100 ####[facility] [address] [place], [place], [address] White blood cell (WBC) count Ordered By: Corby Heller on 01-30-2025 WBC (Bld) [#/Vol] 9.0 10*3/uL 4.4-11.0 [facility] Plastic Surgery Visit Report on 01-26-2025 Plastic Surgery Visit Report Normal [facility] Plastic Surgery Visit Report on 01-18-2025 Plastic Surgery Visit Report Normal [facility] Surgery Specimen Level Odilia 01-18-2025 Surgery Specimen Level IV Normal [facility] Comment on above: Performed By: #### P SUIV ####[facility] [address] [place], [place], [id number] Bedside Glucoseon 01-01-2025 FINGERSTICK GLU 128 mg/dL High 74-106 [facility] Comment on above: Result Comment: MAHAD BUCKLEY OF PATIENT CARE PER NURSING PROTOCOL Performed By: #### L 501.080 ####[facility] [address] [place], [address] Emergency Department Summary on 01-01-2025 Emergency Department Summary Normal [facility] Glucose measurement at [facility] deOrdered By: Evans Blankenship on 01-01-2025 Glucose [Mass/Vol] 128 mg/dL High 74-106 [facility] Comment on above: MANAGEMENT OF PATIEN T CARE PER NURSING PROTOCOL Knee 1 or 2 Viewson 01-02-20 25 Knee 1 or 2 Views Normal [facility] Wrist min 3 Viewson 01-02-20 25 Wrist min 3 Views Normal [facility] Anion gap in Serum or Plasma Ordered By: Rob Krishnamurthy on 12-28-2024 Anion gap [Moles/Vol] 11 mmol/L 5-15 [facility] BUN/creatinine ratioOrdered By: Rob Krishnamurthy on 12-28-2024 Urea nitrogen/Creatinine [Mass ratio] 36.8 mg/mg High 10-20 [facility] Bilirubin, totalOrdered By: Rob Krishnamurthy on 12-28-2024 Bilirubin [Mass/Vol] 0.35 mg/dL 0.00-1.30 [facility] CBC-Complete Blood Cnt No Di ffon 12-28-2024 Erythrocyte distribution width (RBC) [Ratio] 14.5 % Normal 11.6-14.6 [facility] Comment on above: Performed By: #### L 100.0500, L500.4050 ####[facility] [address] [place], [place], [id number] Hematocrit (Bld) [Volume fraction] 30.8 % Low 37-47 [facility] Comment on above: Performed By: #### L 100.0500, L500.4050 ####[facility] [address] [place], [address] Hemoglobin (Bld) [Mass/Vol] 10.0 g/dL Low 12.0-15.0 [facility] Comment on above: Performed By: #### L 100.0500, L500.4050 ####[facility] [address] [place], [address] MCH (RBC) [Entitic mass] 30.1 pg Normal 27.0-32.0 [facility] Comment on above: Performed By: #### L 100.0500, L500.4050 ####[facility] [address] [place], [address] MCHC (RBC) [Mass/Vol] 32.5 g/dL Normal 32-36 [facility] Comment on above: Performed By: #### L 100.0500, L500.4050 ####[facility] [address] [place], [address] MCV (RBC) [Entitic vol] 92.8 fL Normal 81-99 [facility] Comment on above: Performed By: #### L 100.0500, L500.4050 ####[facility] [address] [place], [address] Platelet mean volume (Bld) [Entitic vol] 9.1 fL Normal 6.2-12.0 [facility] Comment on above: Performed By: #### L 100.0500, L500.4050 ####[facility] [address] [place], [address] Platelets (Bld) [#/Vol] 203 10*3/uL Normal 150-450 [facility] Comment on above: Performed By: #### L 100.0500, L500.4050 ####[facility] [address] [place], [address] RBC (Bld) [#/Vol] 3.32 10*6/uL Low 4.2-5.4 [facility] Comment on above: Performed By: #### L 100.0500, L500.4050 ####[facility] [address] [place], [address] RDW SD 49.1 fl High 35.1-43.9 [facility] Comment on above: Performed By: #### L 100.0500, L500.4050 ####[facility] [address] [place], [address] WBC (Bld) [#/Vol] 8.0 10*3/uL Normal 4.4-11.0 [facility] Comment on above: Performed By: #### L 100.0500, L500.4050 ####[facility] [address] [place], [address] Carbon dioxide, total [Moles /volume] in Central venous bloodOrdered By: Rob Krishnamurthy on 12-28-2024 CO2 [Moles/Vol] 23.4 mmol/L 21.0-32.0 [facility] Chloride assayOrdered By: Monie Krishnamurthy on 12-28-2024 Chloride [Moles/Vol] 104 mmol/L 98-108 [facility] Comprehensive Metabolic Prof ilon 12-28-2024 Albumin [Mass/Vol] 3.8 g/dL Normal 3.4-4.8 [facility] Comment on above: Performed By: #### L 100.0500, L500.4050 ####[facility] [address] [place], [address] Albumin/Globulin [Mass ratio] 1.1 {ratio} Normal 0.9-2.4 [facility] Comment on above: Performed By: #### L 100.0500, L500.4050 ####[facility] [address] [place], [address] ALK PHOS 72 U/L Normal 35-104 [facility] Comment on above: Performed By: #### L 100.0500, L500.4050 ####[facility] [address] [place], [address] ALT [Catalytic activity/Vol] 9 U/L Normal <=34 [facility] Comment on above: Performed By: #### L 100.0500, L500.4050 ####[facility] [address] [place], [address] AST [Catalytic activity/Vol] 20 U/L Normal <=31 [facility] Comment on above: Performed By: #### L 100.0500, L500.4050 ####[facility] [address] [place], [address] Bilirubin [Mass/Vol] 0.35 mg/dL Normal 0.00-1.30 [facility] Comment on above: Performed By: #### L 100.0500, L500.4050 ####[facility] [address] [place], [address] BUN/CRE 36.8 RATIO High 10-20 [facility] Comment on above: Performed By: #### L 100.0500, L500.4050 ####[facility] [address] [place], [address] Calcium [Mass/Vol] 9.4 mg/dL Normal 7.6-11.0 [facility] Comment on above: Performed By: #### L 100.0500, L500.4050 ####[facility] [address] [place], [address] Chloride [Moles/Vol] 104 mmol/L Normal 98-108 [facility] Comment on above: Performed By: #### L 100.0500, L500.4050 ####[facility] [address] [place], [address] CO2 [Moles/Vol] 23.4 mmol/L Normal 21.0-32.0 [facility] Comment on above: Performed By: #### L 100.0500, L500.4050 ####[facility] [address] [place], [address] Creatinine [Mass/Vol] 1.17 mg/dL Normal 0.70-1.20 [facility] Comment on above: Performed By: #### L 100.0500, L500.4050 ####[facility] [address] [place], [address] GAP 11 Normal 5-15 [facility] Comment on above: Performed By: #### L 100.0500, L500.4050 ####[facility] [address] [place], [address] GFR/1.73 sq M.predicted among non-blacks MDRD (S/P/Bld) [Vol rate/Area] 49 mL/min/{1.73_m2} Low >60 [facility] Comment on above: Result Comment: mL/m in/1.73m2 CKD-EPI Creatinine Equation (2020) Performed By: #### L 100.0500, L500.4050 ####[facility] [address] [place], [address] Globulin (S) [Mass/Vol] 3.6 g/dL Normal 2.2-4.2 [facility] Comment on above: Performed By: #### L 100.0500, L500.4050 ####[facility] [address] [place], [address] Glucose [Mass/Vol] 133 mg/dL High 70-99 [facility] Comment on above: Performed By: #### L 100.0500, L500.4050 ####[facility] [address] [place], [address] Potassium [Moles/Vol] 4.4 mmol/L Normal 3.3-5.1 [facility] Comment on above: Performed By: #### L 100.0500, L500.4050 ####[facility] [address] [place], [address] Sodium [Moles/Vol] 139 mmol/L Normal 133-145 [facility] Comment on above: Performed By: #### L 100.0500, L500.4050 ####[facility] [address] [place], [address] T PROT 7.4 g/dL Normal 5.9-8.4 [facility] Comment on above: Performed By: #### L 100.0500, L500.4050 ####[facility] [address] [place], [address] Urea nitrogen [Mass/Vol] 43 mg/dL High 4-19 [facility] Comment on above: Performed By: #### L 100.0500, L500.4050 ####[facility] [address] [place], [address] Erythrocyte distribution wid th (RBC) [Ratio]Ordered By: Rob Krishnamurthy on 12-28-2024 Erythrocyte distribution width (RBC) [Entitic vol] 49.1 fL High 35.1-43.9 [facility] Erythrocyte distribution wid th ratioOrdered By: Rob Krishnamurthy on 12-28-2024 Erythrocyte distribution width (RBC) [Ratio] 14.5 % 11.6-14.6 [facility] Erythrocyte distribution wid th standard deviationOrdered By: Rob Krishnamurthy on 12-28-2024 Erythrocyte distribution width (RBC) [Ratio] 49.1 fl High 35.1-43.9 [facility] GFR/1.73 sq M.predicted kyle g non-blacks MDRD (S/P/Bld) [Vol rate/Area]Ordered By: Rob Krishnamurthy on 12-28-2024 Estimated GFR (MDRD) Non-Af Amer 49 Low >60 [facility] Comment on above: mL/min/1.73m2 CKD-EP I Creatinine Equation (2020) Glomerular filtration rate ( GFR) estimation/1.73 sq m using serum, plasma, or whole bOrdered By: Rob Krishnamurthy on 12-28-2024 GFR/1.73 sq M.predicted among non-blacks MDRD (S/P/Bld) [Vol rate/Area] 49 mL/min/{1.73_m2} Low >60 [facility] Comment on above: mL/min/1.73m2 CKD-EP I Creatinine Equation (2020) Hematocrit Auto (Bld) [Volum e fraction]Ordered By: Rob Krishnamurthy on 12-28-2024 Hematocrit (Bld) [Volume fraction] 30.8 % Low 37-47 [facility] Hemoglobin measurementOrdere d By: Rob Krishnamurthy on 12-28-2024 Hemoglobin (Bld) [Mass/Vol] 10.0 g/dL Low 12.0-15.0 [facility] Laboratory - Chemistry and C hemistry - challengeOrdered By: Rob Krishnamurthy on 12-28-2024 AST [Catalytic activity/Vol] 20 U/L <32 [facility] MCV (mean corpuscular volume ) determinationOrdered By: Rob Krishnamurthy on 12-28-2024 MCV (RBC) [Entitic vol] 92.8 fL 81-99 [facility] Mean corpuscular hemoglobin (MCH) determinationOrdered By: Rob Krishnamurthy on 12-28-2024 MCH (RBC) [Entitic mass] 30.1 pg 27.0-32.0 [facility] Mean corpuscular hemoglobin concentration (MCHC) determinationOrdered By: Rob Krishnamurthy on 12-28-2024 MCHC (RBC) [Mass/Vol] 32.5 g/dL 32-36 [facility] Mean platelet volume determi nationOrdered By: Rob Krishnamurthy on 12-28-2024 Platelet mean volume (Bld) [Entitic vol] 9.1 fL 6.2-12.0 [facility] Platelet countOrdered By: Monie Krishnamurthy on 12-28-2024 Platelets (Bld) [#/Vol] 203 10*3/uL 150-450 [facility] Potassium (Unsp spec) [Mass/ Vol]Ordered By: Rob Krishnamurthy on 12-28-2024 Potassium [Moles/Vol] 4.4 mmol/L 3.3-5.1 [facility] Potassium measurement (mass/ volume)Ordered By: Rob Krishnamurthy on 12-28-2024 Potassium (Unsp spec) [Mass/Vol] 4.4 mmol/L 3.3-5.1 [facility] RBC Auto (Bld) [#/Vol]Ordere d By: Rob Krishnamurthy on 12-28-2024 RBC (Bld) [#/Vol] 3.32 10*6/uL Low 4.2-5.4 [facility] Serum creatinine measurement (mass/volume)Ordered By: Rob Krishnamurthy on 12-28-2024 Creatinine [Mass/Vol] 1.17 mg/dL 0.70-1.20 [facility] Serum globulin measurementOr dered By: Rob Krishnamurthy on 12-28-2024 Globulin (S) [Mass/Vol] 3.6 g/dL 2.2-4.2 [facility] Serum glucose measurement (m ass/volume)Ordered By: Rob Krishnamurthy on 12-28-2024 Glucose [Mass/Vol] 133 mg/dL High 70-99 [facility] Serum or plasma alanine saldana otransferase (ALT) measurementOrdered By: Rob Krishnamurthy on 12-28-2024 ALT [Catalytic activity/Vol] 9 U/L <35 [facility] Serum or plasma albumin sarbjit urement (mass/volume)Ordered By: Rob Krishnamurthy on 12-28-2024 Albumin [Mass/Vol] 3.8 g/dL 3.4-4.8 [facility] Serum or plasma albumin/glob ulin mass ratioOrdered By: Rob Krishnamurthy on 12-28-2024 Albumin/Globulin [Mass ratio] 1.1 {ratio} 0.9-2.4 [facility] Serum or plasma alkaline louie sphatase measurementOrdered By: Rob Krishnamurthy on 12-28-2024 ALP [Catalytic activity/Vol] 72 U/L 35-104 [facility] Serum or plasma calcium sarbjit urement (mass/volume)Ordered By: Rob Krishnamurthy on 12-28-2024 Calcium [Mass/Vol] 9.4 mg/dL 7.6-11.0 [facility] Serum or plasma urea nitroge n measurement (mass/volume)Ordered By: Rob Krishnamurthy on 12-28-2024 Urea nitrogen [Mass/Vol] 43 mg/dL High 4-19 [facility] Sodium levelOrdered By: Jesse Krishnamurthy on 12-28-2024 Sodium [Moles/Vol] 139 mmol/L 133-145 [facility] Total proteinOrdered By: Nate Krishnamurthy on 12-28-2024 Protein [Mass/Vol] 7.4 g/dL 5.9-8.4 [facility] White blood cell (WBC) count Ordered By: Rob Krishnamurthy on 12-28-2024 WBC (Bld) [#/Vol] 8.0 10*3/uL 4.4-11.0 [facility] Emergency Department Summary on 12-23-2024 Emergency Department Summary Normal [facility] Urine Cultureon 12-21-2024 URC Normal [facility] Comment on above: Performed By: #### L 500.4050, L100.0100, M100.2200, M100.678 ####[facility] [address] [place], [address] Absolute lymphocyte countOrd ered By: Corby Heller on 12-18-2024 Lymphocytes Auto (Unsp spec) [#/Vol] 2.07 10*3/uL 0.83-4.51 [facility] Absolute neutrophil countOrd ered By: Corby Heller on 12-18-2024 Neutrophils (Bld) [#/Vol] 6.1 10*3/uL 2.0-7.7 [facility] Anion gap in Serum or Plasma Ordered By: Corby Heller on 12-18-2024 Anion gap [Moles/Vol] 15 mmol/L 5-15 [facility] Automated lymphocyte count a s percentage of total leukocytesOrdered By: Corby Heller on 12-18-2024 Lymphocytes/100 WBC Auto (Unsp spec) 23.0 % 19-41 [facility] BUN/creatinine ratioOrdered By: Corby Heller on 12-18-2024 Urea nitrogen/Creatinine [Mass ratio] 34.2 mg/mg High 10-20 [facility] Basophil percentageOrdered B y: Corby Heller on 12-18-2024 Basophils/100 WBC (Bld) 0.4 % 0-1 [facility] Bilirubin, totalOrdered By: Corby Heller on 12-18-2024 Bilirubin [Mass/Vol] 0.36 mg/dL 0.00-1.30 [facility] CBC W/Diff, Automatedon 11-26 Absolute Lymph 2.07 X10 3/uL Normal 0.83-4.51 [facility] Comment on above: Performed By: #### L 500.4050, L100.0100, M100.2200, M100.678 ####[facility] [address] [place], [address] Absolute Neut 6.1 X10 3/uL Normal 2.0-7.7 [facility] Comment on above: Performed By: #### L 500.4050, L100.0100, M100.2200, M100.678 ####[facility] [address] [place], [address] Basophils/100 WBC (Bld) 0.4 % Normal 0-1 [facility] Comment on above: Performed By: #### L 500.4050, L100.0100, M100.2200, M100.678 ####[facility] [address] [place], [address] Eosinophils/100 WBC (Bld) 1.9 % Normal 0-5 [facility] Comment on above: Performed By: #### L 500.4050, L100.0100, M100.2200, M100.678 ####[facility] [address] [place], [address] Erythrocyte distribution width (RBC) [Ratio] 14.4 % Normal 11.6-14.6 [facility] Comment on above: Performed By: #### L 500.4050, L100.0100, M100.2200, M100.678 ####[facility] [address] [place], [address] Hematocrit (Bld) [Volume fraction] 33.5 % Low 37-47 [facility] Comment on above: Performed By: #### L 500.4050, L100.0100, M100.2200, M100.678 ####[facility] [address] [place], [address] Hemoglobin (Bld) [Mass/Vol] 10.8 g/dL Low 12.0-15.0 [facility] Comment on above: Performed By: #### L 500.4050, L100.0100, M100.2200, M100.678 ####[facility] [address] [place], [address] IG% 0.800 Normal 0.0-0.9 [facility] Comment on above: Result Comment: IG% - Immature Granulocytes (promyelocytes, myelocytes andmetamyelocytes) > 1% indicates that a LEFT SHIFT is Present. Performed By: #### L 500.4050, L100.0100, M100.2200, M100.678 ####[facility] [address] [place], [address] Lymphocytes/100 WBC (Bld) 23.0 % Normal 19-41 [facility] Comment on above: Performed By: #### L 500.4050, L100.0100, M100.2200, M100.678 ####[facility] [id number] [place], [address] MCH (RBC) [Entitic mass] 30.8 pg Normal 27.0-32.0 [facility] Comment on above: Performed By: #### L 500.4050, L100.0100, M100.2200, M100.678 ####[facility] [id number] [place], [address] MCHC (RBC) [Mass/Vol] 32.2 g/dL Normal 32-36 [facility] Comment on above: Performed By: #### L 500.4050, L100.0100, M100.2200, M100.678 ####[facility] [id number] [place], [address] MCV (RBC) [Entitic vol] 95.4 fL Normal 81-99 [facility] Comment on above: Performed By: #### L 500.4050, L100.0100, M100.2200, M100.678 ####[facility] [id number] [place], [address] Monocytes/100 WBC (Bld) 6.0 % Normal 0-10 [facility] Comment on above: Performed By: #### L 500.4050, L100.0100, M100.2200, M100.678 ####[facility] [address] [place], [address] Neutrophils/100 WBC (Bld) 67.9 % Normal 47-70 [facility] Comment on above: Performed By: #### L 500.4050, L100.0100, M100.2200, M100.678 ####[facility] [address] [place], [address] Nucleated RBC (Bld) [#/Vol] 0 10*3/uL Normal 0-5 [facility] Comment on above: Performed By: #### L 500.4050, L100.0100, M100.2200, M100.678 ####[facility] [address] [place], [address] Platelet mean volume (Bld) [Entitic vol] 9.3 fL Normal 6.2-12.0 [facility] Comment on above: Performed By: #### L 500.4050, L100.0100, M100.2200, M100.678 ####[facility] [address] [place], [address] Platelets (Bld) [#/Vol] 253 10*3/uL Normal 150-450 [facility] Comment on above: Performed By: #### L 500.4050, L100.0100, M100.2200, M100.678 ####[facility] [address] [place], [address] RBC (Bld) [#/Vol] 3.51 10*6/uL Low 4.2-5.4 [facility] Comment on above: Performed By: #### L 500.4050, L100.0100, M100.2200, M100.678 ####[facility] [address] [place], [address] RDW SD 50.0 fl High 35.1-43.9 [facility] Comment on above: Performed By: #### L 500.4050, L100.0100, M100.2200, M100.678 ####[facility] [address] [place], [address] WBC (Bld) [#/Vol] 9.0 10*3/uL Normal 4.4-11.0 [facility] Comment on above: Performed By: #### L 500.4050, L100.0100, M100.2200, M100.678 ####[facility] [address] [place], [address] Carbon dioxide, total [Moles /volume] in Central venous bloodOrdered By: Corby Heller on 12-18-2024 CO2 [Moles/Vol] 21.7 mmol/L 21.0-32.0 [facility] Chest PA and Lateralon 12-18 Chest PA and Lateral Normal [facility] Chloride assayOrdered By: Ryder Heller on 12-18-2024 Chloride [Moles/Vol] 102 mmol/L 98-108 [facility] Comprehensive Metabolic Prof ilon 12-18-2024 Albumin [Mass/Vol] 4.0 g/dL Normal 3.4-4.8 [facility] Comment on above: Performed By: #### L 500.4050, L100.0100, M100.2200, M100.678 ####[facility] [address] [place], [address] Albumin/Globulin [Mass ratio] 1.0 {ratio} Normal 0.9-2.4 [facility] Comment on above: Performed By: #### L 500.4050, L100.0100, M100.2200, M100.678 ####[facility] [address] [place], [address] ALK PHOS 74 U/L Normal 35-104 [facility] Comment on above: Performed By: #### L 500.4050, L100.0100, M100.2200, M100.678 ####[facility] [address] [place], [address] ALT [Catalytic activity/Vol] 10 U/L Normal <=34 [facility] Comment on above: Performed By: #### L 500.4050, L100.0100, M100.2200, M100.678 ####[facility] [address] [place], [address] AST [Catalytic activity/Vol] 21 U/L Normal <=31 [facility] Comment on above: Performed By: #### L 500.4050, L100.0100, M100.2200, M100.678 ####[facility] [address] [place], [address] Bilirubin [Mass/Vol] 0.36 mg/dL Normal 0.00-1.30 [facility] Comment on above: Performed By: #### L 500.4050, L100.0100, M100.2200, M100.678 ####[facility] [address] [place], [address] BUN/CRE 34.2 RATIO High 10-20 [facility] Comment on above: Performed By: #### L 500.4050, L100.0100, M100.2200, M100.678 ####[facility] [address] [place], [address] Calcium [Mass/Vol] 9.8 mg/dL Normal 7.6-11.0 [facility] Comment on above: Performed By: #### L 500.4050, L100.0100, M100.2200, M100.678 ####[facility] [address] [place], [address] Chloride [Moles/Vol] 102 mmol/L Normal 98-108 [facility] Comment on above: Performed By: #### L 500.4050, L100.0100, M100.2200, M100.678 ####[facility] [address] [place], [address] CO2 [Moles/Vol] 21.7 mmol/L Normal 21.0-32.0 [facility] Comment on above: Performed By: #### L 500.4050, L100.0100, M100.2200, M100.678 ####[facility] [address] [place], [address] Creatinine [Mass/Vol] 1.00 mg/dL Normal 0.70-1.20 [facility] Comment on above: Performed By: #### L 500.4050, L100.0100, M100.2200, M100.678 ####[facility] [address] [place], [address] GAP 15 Normal 5-15 [facility] Comment on above: Performed By: #### L 500.4050, L100.0100, M100.2200, M100.678 ####[facility] [address] [place], [address] GFR/1.73 sq M.predicted among non-blacks MDRD (S/P/Bld) [Vol rate/Area] 59 mL/min/{1.73_m2} Low >60 [facility] Comment on above: Result Comment: mL/m in/1.73m2 CKD-EPI Creatinine Equation (2020) Performed By: #### L 500.4050, L100.0100, M100.2200, M100.678 ####[facility] [address] [place], [address] Globulin (S) [Mass/Vol] 3.9 g/dL Normal 2.2-4.2 [facility] Comment on above: Performed By: #### L 500.4050, L100.0100, M100.2200, M100.678 ####[facility] [address] [place], [address] Glucose [Mass/Vol] 176 mg/dL High 70-99 [facility] Comment on above: Performed By: #### L 500.4050, L100.0100, M100.2200, M100.678 ####[facility] [address] [place], [address] Potassium [Moles/Vol] 4.5 mmol/L Normal 3.3-5.1 [facility] Comment on above: Performed By: #### L 500.4050, L100.0100, M100.2200, M100.678 ####[facility] [address] [place], [address] Sodium [Moles/Vol] 138 mmol/L Normal 133-145 [facility] Comment on above: Performed By: #### L 500.4050, L100.0100, M100.2200, M100.678 ####[facility] [address] [place], [address] T PROT 7.9 g/dL Normal 5.9-8.4 [facility] Comment on above: Performed By: #### L 500.4050, L100.0100, M100.2200, M100.678 ####[facility] [address] [place], [address] Urea nitrogen [Mass/Vol] 34 mg/dL High 4-19 [facility] Comment on above: Performed By: #### L 500.4050, L100.0100, M100.2200, M100.678 ####[facility] [address] [place], [address] Eosinophil percentageOrdered By: Corby Heller on 12-18-2024 Eosinophils/100 WBC (Bld) 1.9 % 0-5 [facility] Erythrocyte distribution wid th ratioOrdered By: Corby Heller on 12-18-2024 Erythrocyte distribution width (RBC) [Ratio] 14.4 % 11.6-14.6 [facility] Erythrocyte distribution wid th standard deviationOrdered By: Corby Heller on 12-18-2024 Erythrocyte distribution width (RBC) [Entitic vol] 50.0 fL High 35.1-43.9 [facility] Erythrocyte distribution width (RBC) [Ratio] 50.0 fl High 35.1-43.9 [facility] GFR/1.73 sq M.predicted kyle g non-blacks MDRD (S/P/Bld) [Vol rate/Area]Ordered By: Corby Heller on 12-18-2024 Estimated GFR (MDRD) Non-Af Amer 59 Low >60 [facility] Comment on above: mL/min/1.73m2 CKD-EP I Creatinine Equation (2020) Glomerular filtration rate ( GFR) estimation/1.73 sq m using serum, plasma, or whole bOrdered By: Corby Heller on 12-18-2024 GFR/1.73 sq M.predicted among non-blacks MDRD (S/P/Bld) [Vol rate/Area] 59 mL/min/{1.73_m2} Low >60 [facility] Comment on above: mL/min/1.73m2 CKD-EP I Creatinine Equation (2020) Hematocrit Auto (Bld) [Volum e fraction]Ordered By: Corby Heller on 12-18-2024 Hematocrit (Bld) [Volume fraction] 33.5 % Low 37-47 [facility] Hemoglobin measurementOrdere d By: Corby Heller on 12-18-2024 Hemoglobin (Bld) [Mass/Vol] 10.8 g/dL Low 12.0-15.0 [facility] Immature granulocytes/100 WB C Auto (Bld)Ordered By: Corby Heller on 12-18-2024 Immature granulocytes/100 WBC (Bld) 0.800 % 0.0-0.9 [facility] Comment on above: IG% - Immature Granu locytes (promyelocytes, myelocytes and metamyelocytes) > 1% indicates that a LEFT SHIFT is Present. Influenza virus A and B and SARS-CoV-2 (COVID-19) and Respiratory syncytial virus RNAOrdered By: Corby Heller on 12-18-2024 SARS-CoV-2 (COVID-19) RNA ROSEANNE+probe Ql (Unsp spec) [facility] Laboratory - Chemistry and C hemistry - challengeOrdered By: Corby Heller on 12-18-2024 AST [Catalytic activity/Vol] 21 U/L <32 [facility] Lymphocytes Auto (Unsp spec) [#/Vol]Ordered By: Corby Heller on 12-18-2024 Lymphocytes (Bld) [#/Vol] 2.07 10*3/uL 0.83-4.51 [facility] Lymphocytes/100 WBC Auto (Un sp spec)Ordered By: Corby Heller on 12-18-2024 Lymphocytes/100 WBC (Bld) 23.0 % 19-41 [facility] M100.678on 12-18-2024 M100.678 Pending SARS-CoV-2 (COVID 19) Negative INFLUENZA A Negative INFLUENZA B Negative RSV PCR Negative Normal [facility] Comment on above: Performed By: #### L 500.4050, L100.0100, M100.2200, M100.678 ####[facility] [address] [place], [address] MCV (mean corpuscular volume ) determinationOrdered By: Corby Heller on 12-18-2024 MCV (RBC) [Entitic vol] 95.4 fL 81-99 [facility] Mean corpuscular hemoglobin (MCH) determinationOrdered By: Corby Heller on 12-18-2024 MCH (RBC) [Entitic mass] 30.8 pg 27.0-32.0 [facility] Mean corpuscular hemoglobin concentration (MCHC) determinationOrdered By: Corby Heller on 12-18-2024 MCHC (RBC) [Mass/Vol] 32.2 g/dL 32-36 [facility] Mean platelet volume determi nationOrdered By: Corby Heller on 12-18-2024 Platelet mean volume (Bld) [Entitic vol] 9.3 fL 6.2-12.0 [facility] Monocyte percentageOrdered B y: Corby Conroyok on 12-18-2024 Monocytes/100 WBC (Bld) 6.0 % 0-10 [facility] Neutrophil percentageOrdered By: Corby Conroyok on 12-18-2024 Neutrophils/100 WBC (Bld) 67.9 % 47-70 [facility] Nucleated red blood cell per centageOrdered By: Corby Heller on 12-18-2024 Nucleated RBC/100 WBC (Bld) [Ratio] 0 % 0-5 [facility] Platelet countOrdered By: Ryder Heller on 12-18-2024 Platelets (Bld) [#/Vol] 253 10*3/uL 150-450 [facility] Potassium (Unsp spec) [Mass/ Vol]Ordered By: Corby Heller on 12-18-2024 Potassium [Moles/Vol] 4.5 mmol/L 3.3-5.1 [facility] Potassium measurement (mass/ volume)Ordered By: Corby Heller on 12-18-2024 Potassium (Unsp spec) [Mass/Vol] 4.5 mmol/L 3.3-5.1 [facility] RBC Auto (Bld) [#/Vol]Ordere d By: Corby Heller on 12-18-2024 RBC (Bld) [#/Vol] 3.51 10*6/uL Low 4.2-5.4 [facility] Serum creatinine measurement (mass/volume)Ordered By: Corby Heller on 12-18-2024 Creatinine [Mass/Vol] 1.00 mg/dL 0.70-1.20 [facility] Serum globulin measurementOr dered By: Corby Heller on 12-18-2024 Globulin (S) [Mass/Vol] 3.9 g/dL 2.2-4.2 [facility] Serum glucose measurement (m ass/volume)Ordered By: Corby Heller on 12-18-2024 Glucose [Mass/Vol] 176 mg/dL High 70-99 [facility] Serum or plasma alanine saldana otransferase (ALT) measurementOrdered By: Corby Heller on 12-18-2024 ALT [Catalytic activity/Vol] 10 U/L <35 [facility] Serum or plasma albumin sarbjit urement (mass/volume)Ordered By: Corby Heller on 12-18-2024 Albumin [Mass/Vol] 4.0 g/dL 3.4-4.8 [facility] Serum or plasma albumin/glob ulin mass ratioOrdered By: Corby Heller 12-18-2024 Albumin/Globulin [Mass ratio] 1.0 {ratio} 0.9-2.4 [facility] Serum or plasma alkaline louie sphatase measurementOrdered By: Corby Heller 12-18-2024 ALP [Catalytic activity/Vol] 74 U/L 35-104 [facility] Serum or plasma calcium sarbjit urement (mass/volume)Ordered By: Corby Heller 12-18-2024 Calcium [Mass/Vol] 9.8 mg/dL 7.6-11.0 [facility] Serum or plasma urea nitroge n measurement (mass/volume)Ordered By: Corby Heller 12-18-2024 Urea nitrogen [Mass/Vol] 34 mg/dL High 4-19 [facility] Sodium levelOrdered By: Corby Heller 12-18-2024 Sodium [Moles/Vol] 138 mmol/L 133-145 [facility] Total proteinOrdered By: Corby Heller on 12-18-2024 Protein [Mass/Vol] 7.9 g/dL 5.9-8.4 [facility] Urine cultureOrdered By: Corby Heller on 12-18-2024 Bacteria identified Cx Nom (U) ESBL Klebsiella pneumoniae pne Abnormal [facility] Bacteria identified Cx Nom (U) Escherichia coli Abnormal [facility] White blood cell (WBC) count [facility] WBC (Bld) [#/Vol] 9.0 10*3/uL 4.4-11.0 [facility] Urine Cultureon 11-26-2024 URC Normal [facility] Comment on above: Performed By: #### M 100.2200 ####[facility] [address] [place], [place], [address] Absolute lymphocyte countOrd ered By: [facility] 11-23-2024 Lymphocytes Auto (Unsp spec) [#/Vol] 2.13 10*3/uL 0.83-4.51 [facility] Absolute neutrophil countOrd ered By: [facility] 11-23-2024 Neutrophils (Bld) [#/Vol] 5.3 10*3/uL 2.0-7.7 [facility] Automated lymphocyte count a s percentage of total leukocytesOrdered By: Corby Heller on 11-23-2024 Lymphocytes/100 WBC Auto (Unsp spec) 25.3 % 19-41 [facility] BUN/creatinine ratioOrdered By: [facility] 11-23-2024 Urea nitrogen/Creatinine [Mass ratio] 28.7 mg/mg High 10-20 [facility] Basophil percentageOrdered B y: Corby Heller on 11-23-2024 Basophils/100 WBC (Bld) 0.6 % 0-1 [facility] Bilirubin, totalOrdered By: Corby Arron on 11-23-2024 Bilirubin [Mass/Vol] 0.25 mg/dL 0.00-1.30 [facility] CBC W/Diff, Automatedon 10-29 Absolute Lymph 2.13 X10 3/uL Normal 0.83-4.51 [facility] Comment on above: Performed By: #### L 506.1001, L501.9520, L100.0100, L500.4050 ####[facility] [address] [place], [address] Absolute Neut 5.3 X10 3/uL Normal 2.0-7.7 [facility] Comment on above: Performed By: #### L 506.1001, L501.9520, L100.0100, L500.4050 ####[facility] [address] [place], [address] Basophils/100 WBC (Bld) 0.6 % Normal 0-1 [facility] Comment on above: Performed By: #### L 506.1001, L501.9520, L100.0100, L500.4050 ####[facility] [address] [place], [address] Eosinophils/100 WBC (Bld) 2.5 % Normal 0-5 [facility] Comment on above: Performed By: #### L 506.1001, L501.9520, L100.0100, L500.4050 ####[facility] [address] [place], [address] Erythrocyte distribution width (RBC) [Ratio] 14.6 % Normal 11.6-14.6 [facility] Comment on above: Performed By: #### L 506.1001, L501.9520, L100.0100, L500.4050 ####[facility] [address] [place], [address] Hematocrit (Bld) [Volume fraction] 33.7 % Low 37-47 [facility] Comment on above: Performed By: #### L 506.1001, L501.9520, L100.0100, L500.4050 ####[facility] [address] [place], [address] Hemoglobin (Bld) [Mass/Vol] 10.5 g/dL Low 12.0-15.0 [facility] Comment on above: Performed By: #### L 506.1001, L501.9520, L100.0100, L500.4050 ####[facility] [address] [place], [address] IG% 0.600 Normal 0.0-0.9 [facility] Comment on above: Result Comment: IG% - Immature Granulocytes (promyelocytes, myelocytes andmetamyelocytes) > 1% indicates that a LEFT SHIFT is Present. Performed By: #### L 506.1001, L501.9520, L100.0100, L500.4050 ####[facility] [address], [address] Lymphocytes/100 WBC (Bld) 25.3 % Normal 19-41 [facility] Comment on above: Performed By: #### L 506.1001, L501.9520, L100.0100, L500.4050 ####[facility] [address] [place], [address] MCH (RBC) [Entitic mass] 30.3 pg Normal 27.0-32.0 [facility] Comment on above: Performed By: #### L 506.1001, L501.9520, L100.0100, L500.4050 ####[facility] [address] [place], [address] MCHC (RBC) [Mass/Vol] 31.2 g/dL Low 32-36 [facility] Comment on above: Performed By: #### L 506.1001, L501.9520, L100.0100, L500.4050 ####[facility] [address] [place], [address] MCV (RBC) [Entitic vol] 97.1 fL Normal 81-99 [facility] Comment on above: Performed By: #### L 506.1001, L501.9520, L100.0100, L500.4050 ####[facility] [address] [place], [address] Monocytes/100 WBC (Bld) 8.1 % Normal 0-10 [facility] Comment on above: Performed By: #### L 506.1001, L501.9520, L100.0100, L500.4050 ####[facility] [address] [place], [address] Neutrophils/100 WBC (Bld) 62.9 % Normal 47-70 [facility] Comment on above: Performed By: #### L 506.1001, L501.9520, L100.0100, L500.4050 ####[facility] [address] [place], [address] Nucleated RBC (Bld) [#/Vol] 0 10*3/uL Normal 0-5 [facility] Comment on above: Performed By: #### L 506.1001, L501.9520, L100.0100, L500.4050 ####[facility] [address] [place], [address] Platelet mean volume (Bld) [Entitic vol] 9.5 fL Normal 6.2-12.0 [facility] Comment on above: Performed By: #### L 506.1001, L501.9520, L100.0100, L500.4050 ####[facility] [address] [place], [address] Platelets (Bld) [#/Vol] 231 10*3/uL Normal 150-450 [facility] Comment on above: Performed By: #### L 506.1001, L501.9520, L100.0100, L500.4050 ####[facility] [address] [place], [address] RBC (Bld) [#/Vol] 3.47 10*6/uL Low 4.2-5.4 [facility] Comment on above: Performed By: #### L 506.1001, L501.9520, L100.0100, L500.4050 ####[facility] [address] [place], [address] RDW SD 51.7 fl High 35.1-43.9 [facility] Comment on above: Performed By: #### L 506.1001, L501.9520, L100.0100, L500.4050 ####[facility] [address] [place], [address] WBC (Bld) [#/Vol] 8.4 10*3/uL Normal 4.4-11.0 [facility] Comment on above: Performed By: #### L 506.1001, L501.9520, L100.0100, L500.4050 ####[facility] [address] [place], [address] Carbon dioxide measurementOr dered By: Corby Heller on 11-23-2024 CO2 [Moles/Vol] 23.9 mmol/L 22.0-29.0 [facility] Chloride measurementOrdered By: Corby Heller on 11-23-2024 Chloride [Moles/Vol] 101 mmol/L 96-108 [facility] Comprehensive Metabolic Prof ilon 11-23-2024 Albumin [Mass/Vol] 3.7 g/dL Normal 3.4-4.8 [facility] Comment on above: Performed By: #### L 506.1001, L501.9520, L100.0100, L500.4050 ####[facility] [address] [place], [address] Albumin/Globulin [Mass ratio] 0.9 {ratio} Normal 0.9-2.4 [facility] Comment on above: Performed By: #### L 506.1001, L501.9520, L100.0100, L500.4050 ####[facility] [address] [place], [address] ALK PHOS 77 U/L Normal 35-104 [facility] Comment on above: Performed By: #### L 506.1001, L501.9520, L100.0100, L500.4050 ####[facility] [address] [place], [address] ALT [Catalytic activity/Vol] 12 U/L Normal <=34 [facility] Comment on above: Result Comment: Hemo lysis present, Results??could be affected.?? Performed By: #### L 506.1001, L501.9520, L100.0100, L500.4050 ####[facility] [address] [place], [address] Anion gap [Moles/Vol] 12 mmol/L Normal 5-15 [facility] Comment on above: Performed By: #### L 506.1001, L501.9520, L100.0100, L500.4050 ####[facility] [address] [place], [address] AST [Catalytic activity/Vol] 32 U/L Normal <=31 [facility] Comment on above: Result Comment: Hemo lysis present, Results??could be affected.?? Performed By: #### L 506.1001, L501.9520, L100.0100, L500.4050 ####[facility] [address] [place], [address] Bilirubin [Mass/Vol] 0.25 mg/dL Normal 0.00-1.30 [facility] Comment on above: Performed By: #### L 506.1001, L501.9520, L100.0100, L500.4050 ####[facility] [address] [place], [address] BUN/CRE 28.7 RATIO High 10-20 [facility] Comment on above: Performed By: #### L 506.1001, L501.9520, L100.0100, L500.4050 ####[facility] [address] [place], [address] Calcium [Mass/Vol] 9.7 mg/dL Normal 7.6-11.0 [facility] Comment on above: Performed By: #### L 506.1001, L501.9520, L100.0100, L500.4050 ####[facility] [address] [place], [address] Chloride [Moles/Vol] 101 mmol/L Normal 96-108 [facility] Comment on above: Performed By: #### L 506.1001, L501.9520, L100.0100, L500.4050 ####[facility] [address] [place], [address] CO2 [Moles/Vol] 23.9 mmol/L Normal 22.0-29.0 [facility] Comment on above: Performed By: #### L 506.1001, L501.9520, L100.0100, L500.4050 ####[facility] [address] [place], [address] Creatinine [Mass/Vol] 1.4 mg/dL High 0.6-1.0 [facility] Comment on above: Performed By: #### L 506.1001, L501.9520, L100.0100, L500.4050 ####[facility] [address] [place], [address] GFR/1.73 sq M.predicted among non-blacks MDRD (S/P/Bld) [Vol rate/Area] 41 mL/min/{1.73_m2} Low >60 [facility] Comment on above: Result Comment: mL/m in/1.73m2 CKD-EPI Creatinine Equation (2020) Performed By: #### L 506.1001, L501.9520, L100.0100, L500.4050 ####[facility] [address] [place], [address] Globulin (S) [Mass/Vol] 4.0 g/dL Normal 2.2-4.2 [facility] Comment on above: Performed By: #### L 506.1001, L501.9520, L100.0100, L500.4050 ####[facility] [address] [place], [address] Glucose [Mass/Vol] 166 mg/dL High 70-99 [facility] Comment on above: Performed By: #### L 506.1001, L501.9520, L100.0100, L500.4050 ####[facility] [address] [place], [address] Potassium [Moles/Vol] 5.3 mmol/L High 3.3-5.1 [facility] Comment on above: Result Comment: Hemo lysis present, Results??could be affected.?? Performed By: #### L 506.1001, L501.9520, L100.0100, L500.4050 ####[facility] [address] [place], [address] Sodium [Moles/Vol] 137 mmol/L Normal 133-145 [facility] Comment on above: Performed By: #### L 506.1001, L501.9520, L100.0100, L500.4050 ####[facility] [address] [place], [address] T PROT 7.7 g/dL Normal 5.9-8.4 [facility] Comment on above: Performed By: #### L 506.1001, L501.9520, L100.0100, L500.4050 ####[facility] [address] [place], [address] Urea nitrogen [Mass/Vol] 39 mg/dL High 4-19 [facility] Comment on above: Performed By: #### L 506.1001, L501.9520, L100.0100, L500.4050 ####[facility] [address] [place], [address] Creatinine [Moles/Vol]Ordere d By: Corby Heller on 11-23-2024 Creatinine [Mass/Vol] 1.4 mg/dL High 0.6-1.0 [facility] Eosinophil percentageOrdered By: Corby Heller 11-23-2024 Eosinophils/100 WBC (Bld) 2.5 % 0-5 [facility] Erythrocyte distribution wid th ratioOrdered By: Corby Heller 11-23-2024 Erythrocyte distribution width (RBC) [Ratio] 14.6 % 11.6-14.6 [facility] Erythrocyte distribution wid th standard deviationOrdered By: Corby Arron 11-23-2024 Erythrocyte distribution width (RBC) [Entitic vol] 51.7 fL High 35.1-43.9 [facility] Erythrocyte distribution width (RBC) [Ratio] 51.7 fl High 35.1-43.9 [facility] GFR/1.73 sq M.predicted kyle g non-blacks MDRD (S/P/Bld) [Vol rate/Area]Ordered By: Corby Heller 11-23-2024 Estimated GFR (MDRD) Non-Af Amer 41 Low >60 [facility] Comment on above: mL/min/1.73m2 CKD-EP I Creatinine Equation (2020) Glomerular filtration rate ( GFR) estimation/1.73 sq m using serum, plasma, or whole bOrdered By: Corby Heller 11-23-2024 GFR/1.73 sq M.predicted among non-blacks MDRD (S/P/Bld) [Vol rate/Area] 41 mL/min/{1.73_m2} Low >60 [facility] Comment on above: mL/min/1.73m2 CKD-EP I Creatinine Equation (2020) Hematocrit Auto (Bld) [Volum e fraction]Ordered By: Corby Heller 11-23-2024 Hematocrit (Bld) [Volume fraction] 33.7 % Low 37-47 [facility] Hemoglobin measurementOrdere d By: Corby Heller on 11-23-2024 Hemoglobin (Bld) [Mass/Vol] 10.5 g/dL Low 12.0-15.0 [facility] Immature granulocytes/100 WB C Auto (Bld)Ordered By: Corby Heller on 11-23-2024 Immature granulocytes/100 WBC (Bld) 0.600 % 0.0-0.9 [facility] Comment on above: IG% - Immature Granu locytes (promyelocytes, myelocytes and metamyelocytes) > 1% indicates that a LEFT SHIFT is Present. L506.1001on 11-23-2024 Vitamin D 25-OH 40.8 ng/mL Normal 30-100 [facility] Comment on above: Result Comment: Danelle min D StatusDeficiency: <20 ng/mL (50nmol/L)Insufficiency: 20-30 ng/mL (50-75 nmol/L)Sufficiency: 30-100 ng/mL (75-250 nmol/L)Toxicity: >100 ng/mL (>250 nmol/L) Performed By: #### L 506.1001, L501.9520, L100.0100, L500.4050 ####[facility] [id number] [place], [address] Laboratory - Chemistry and C hemistry - challengeOrdered By: Corby Heller on 11-23-2024 AST [Catalytic activity/Vol] 32 U/L <32 [facility] Comment on above: Hemolysis present, R esults could be affected. Lymphocytes Auto (Unsp spec) [#/Vol]Ordered By: Corby Heller on 11-23-2024 Lymphocytes (Bld) [#/Vol] 2.13 10*3/uL 0.83-4.51 [facility] Lymphocytes/100 WBC Auto (Un sp spec)Ordered By: Corby Heller on 11-23-2024 Lymphocytes/100 WBC (Bld) 25.3 % 19-41 [facility] MCV (mean corpuscular volume ) determinationOrdered By: Corby Arron on 11-23-2024 MCV (RBC) [Entitic vol] 97.1 fL 81-99 [facility] Mean corpuscular hemoglobin (MCH) determinationOrdered By: Corby Heller on 11-23-2024 MCH (RBC) [Entitic mass] 30.3 pg 27.0-32.0 [facility] Mean corpuscular hemoglobin concentration (MCHC) determinationOrdered By: Corby Heller on 11-23-2024 MCHC (RBC) [Mass/Vol] 31.2 g/dL Low 32-36 [facility] Mean platelet volume determi nationOrdered By: Corby Heller on 11-23-2024 Platelet mean volume (Bld) [Entitic vol] 9.5 fL 6.2-12.0 [facility] Monocyte percentageOrdered B y: Corby Heller on 11-23-2024 Monocytes/100 WBC (Bld) 8.1 % 0-10 [facility] Neutrophil percentageOrdered By: Corby Heller on 11-23-2024 Neutrophils/100 WBC (Bld) 62.9 % 47-70 [facility] No Panel InformationOrdered By: Corby Heller on 11-23-2024 Vitamin D 25-Hydroxy 40.8 ng/mL 30-100 [facility] Comment on above: Vitamin D StatusDefi ciency: <20 ng/mL (50nmol/L)Insufficiency: 20-30 ng/mL (50-75 nmol/L)Sufficiency: 30-100 ng/mL (75-250 nmol/L)Toxicity: >100 ng/mL (>250 nmol/L) Nucleated red blood cell per centageOrdered By: Corby Heller on 11-23-2024 Nucleated RBC/100 WBC (Bld) [Ratio] 0 % 0-5 [facility] Platelet countOrdered By: Ryder Heller on 11-23-2024 Platelets (Bld) [#/Vol] 231 10*3/uL 150-450 [facility] RBC Auto (Bld) [#/Vol]Ordere d By: Corby Heller on 11-23-2024 RBC (Bld) [#/Vol] 3.47 10*6/uL Low 4.2-5.4 [facility] Serum globulin measurementOr dered By: Corby Heller on 11-23-2024 Globulin (S) [Mass/Vol] 4.0 g/dL 2.2-4.2 [facility] Serum glucose measurement (m ass/volume)Ordered By: Corby Heller 11-23-2024 Glucose [Mass/Vol] 166 mg/dL High 70-99 [facility] Serum or plasma alanine saldana otransferase (ALT) measurementOrdered By: Corby Heller 11-23-2024 ALT [Catalytic activity/Vol] 12 U/L <35 [facility] Comment on above: Hemolysis present, R esults could be affected. Serum or plasma albumin sarbjit urement (mass/volume)Ordered By: Corby Heller 11-23-2024 Albumin [Mass/Vol] 3.7 g/dL 3.4-4.8 [facility] Serum or plasma albumin/glob ulin mass ratioOrdered By: Corby Heller 11-23-2024 Albumin/Globulin [Mass ratio] 0.9 {ratio} 0.9-2.4 [facility] Serum or plasma alkaline louie sphatase measurementOrdered By: Corby Heller 11-23-2024 ALP [Catalytic activity/Vol] 77 U/L 35-104 [facility] Serum or plasma anion gap de termination (moles/volume)Ordered By: Corby Heller 11-23-2024 Anion gap [Moles/Vol] 12 mmol/L 5-15 [facility] Serum or plasma calcium sarbjit urement (mass/volume)Ordered By: Corby Heller 11-23-2024 Calcium [Mass/Vol] 9.7 mg/dL 7.6-11.0 [facility] Serum or plasma creatinine m easurement (moles/volume)Ordered By: Corby Heller 11-23-2024 Creatinine [Moles/Vol] 1.4 mg/dL High 0.6-1.0 [facility] Serum or plasma potassium me asurementOrdered By: Corby Heller 11-23-2024 Potassium [Moles/Vol] 5.3 mmol/L High 3.3-5.1 [facility] Comment on above: Hemolysis present, R esults could be affected. Serum or plasma sodium measu rement (moles/volume)Ordered By: Coryb Heller 11-23-2024 Sodium [Moles/Vol] 137 mmol/L 133-145 [facility] Serum or plasma urea nitroge n measurement (mass/volume)Ordered By: Corby Heller on 11-23-2024 Urea nitrogen [Mass/Vol] 39 mg/dL High 4-19 [facility] TSH DL <= 0.005 mIU/L QnOrde red By: Corby Heller on 11-23-2024 Thyroid Stimulating Hormone (TSH) 5.760 uIU/mL High 0.300-4.200 [facility] TSH Qn 5.760 uIU/mL High 0.300-4.200 [facility] Thyroid Stim Hormone (TSH)on 11-23-2024 TSH 5.760 uIU/mL High 0.300-4.200 [facility] Comment on above: Performed By: #### L 506.1001, L501.9520, L100.0100, L500.4050 ####[facility] [address] [place], [address] Total proteinOrdered By: Corby Heller on 11-23-2024 Protein [Mass/Vol] 7.7 g/dL 5.9-8.4 [facility] Urine cultureOrdered By: Corby Heller on 11-23-2024 Bacteria identified Cx Nom (U) ESBL Klebsiella pneumoniae pne Abnormal [facility] White blood cell (WBC) count Ordered By: Corby Heller on 11-23-2024 WBC (Bld) [#/Vol] 8.4 10*3/uL 4.4-11.0 [facility] Abdomen Single Viewon 2023 Abdomen Single View Normal [facility] Abdomen/Pelvis without Conto n 08-25-2024 Abdomen/Pelvis without Cont Normal [facility] Orthopedic Visit Reporton Orthopedic Visit Report Normal [facility] Orthopedic Visit Reporton Orthopedic Visit Report Normal [facility] Orthopedic Visit Reporton Orthopedic Visit Report Normal [facility] [id number] 07-18-2024 VIT D,25 HYDROX 34.6 ng/mL Normal 30.0-100.0 [facility] Comment on above: Order Comment: Speci men Comment: A duplicate report has been generateddue to demographicSpecimen Comment: updates. Result Comment: Danelle min D deficiency has been defined by the [place] and an Endocrine Society practice guideline as alevel of serum 25-OH vitamin D less than 20 ng/mL (1,2).The Endocrine Society went on to further define vitamin Dinsufficiency as a level between 21 and 29 ng/mL (2).1. IOM ([place] [employer]). 2010. Dietary reference intakes for calcium and D. [place]: The National Academies Press.2. Blanca MF, Tessa MARTINES, Eliza CORDON, et al. Evaluation, treatment, and prevention of vitamin D deficiency: an Endocrine Society clinical practice guideline. JCEM. 2010; 96(7):1911-30.Performed at: [facility] [address] [id number] Director: Matt Mcqueen PhD, Phone: [phone] Performed By: #### M 100.2200, L501.9520, L500.4050, L100.0100, L3300.0940 ####[facility] [address] [place], [address] Urine Cultureon 07-14-2024 URC Normal [facility] Comment on above: Performed By: #### M 100.2200, L501.9520, L500.4050, L100.0100, [id number] ####[facility] [address] [place], [address] CBC W/Diff, Automatedon - Absolute Lymph 2.03 X10 3/uL Normal 0.83-4.51 [facility] Comment on above: Performed By: #### M 100.2200, L501.9520, L500.4050, L100.0100, L3300.0940 ####[facility] [address] [place], [address] Absolute Neut 6.5 X10 3/uL Normal 2.0-7.7 [facility] Comment on above: Performed By: #### M 100.2200, L501.9520, L500.4050, L100.0100, L3300.0940 ####[facility] [address] [place], [address] Basophils/100 WBC (Bld) 0.4 % Normal 0-1 [facility] Comment on above: Performed By: #### M 100.2200, L501.9520, L500.4050, L100.0100, L3300.0940 ####[facility] [address] [place], [address] Eosinophils/100 WBC (Bld) 2.7 % Normal 0-5 [facility] Comment on above: Performed By: #### M 100.2200, L501.9520, L500.4050, L100.0100, L3300.0940 ####[facility] [address] [place], [address] Erythrocyte distribution width (RBC) [Ratio] 14.7 % High 11.6-14.6 [facility] Comment on above: Performed By: #### M 100.2200, L501.9520, L500.4050, L100.0100, L3300.0940 ####[facility] [address] [place], [address] Hematocrit (Bld) [Volume fraction] 34.5 % Low 37-47 [facility] Comment on above: Performed By: #### M 100.2200, L501.9520, L500.4050, L100.0100, L3300.0940 ####[facility] [address] [place], [address] Hemoglobin (Bld) [Mass/Vol] 10.6 g/dL Low 12.0-15.0 [facility] Comment on above: Performed By: #### M 100.2200, L501.9520, L500.4050, L100.0100, L3300.0940 ####[facility] [address] [place], [address] IG% 0.500 Normal 0.0-0.9 [facility] Comment on above: Result Comment: IG% - Immature Granulocytes (promyelocytes, myelocytes andmetamyelocytes) > 1% indicates that a LEFT SHIFT is Present. Performed By: #### M 100.2200, L501.9520, L500.4050, L100.0100, L3300.0940 ####[facility] [address] [place], [address] Lymphocytes/100 WBC (Bld) 21.0 % Normal 19-41 [facility] Comment on above: Performed By: #### M 100.2200, L501.9520, L500.4050, L100.0100, L3300.0940 ####[facility] [address] [place], [address] MCH (RBC) [Entitic mass] 29.3 pg Normal 27.0-32.0 [facility] Comment on above: Performed By: #### M 100.2200, L501.9520, L500.4050, L100.0100, L3300.0940 ####[facility] [address] [place], [address] MCHC (RBC) [Mass/Vol] 30.7 g/dL Low 32-36 [facility] Comment on above: Performed By: #### M 100.2200, L501.9520, L500.4050, L100.0100, L3300.0940 ####[facility] [address] [place], [address] MCV (RBC) [Entitic vol] 95.3 fL Normal 81-99 [facility] Comment on above: Performed By: #### M 100.2200, L501.9520, L500.4050, L100.0100, L3300.0940 ####[facility] [address] [place], [address] Monocytes/100 WBC (Bld) 8.1 % Normal 0-10 [facility] Comment on above: Performed By: #### M 100.2200, L501.9520, L500.4050, L100.0100, L3300.0940 ####[facility] [address] [place], [address] Neutrophils/100 WBC (Bld) 67.3 % Normal 47-70 [facility] Comment on above: Performed By: #### M 100.2200, L501.9520, L500.4050, L100.0100, L3300.0940 ####[facility] [address] [place], [address] Nucleated RBC (Bld) [#/Vol] 0 10*3/uL Normal 0-5 [facility] Comment on above: Performed By: #### M 100.2200, L501.9520, L500.4050, L100.0100, L3300.0940 ####[facility] [address] [place], [address] Platelet mean volume (Bld) [Entitic vol] 9.7 fL Normal 6.2-12.0 [facility] Comment on above: Performed By: #### M 100.2200, L501.9520, L500.4050, L100.0100, L3300.0940 ####[facility] [address] [place], [address] Platelets (Bld) [#/Vol] 196 10*3/uL Normal 150-450 [facility] Comment on above: Performed By: #### M 100.2200, L501.9520, L500.4050, L100.0100, L3300.0940 ####[facility] [address] [place], [address] RBC (Bld) [#/Vol] 3.62 10*6/uL Low 4.2-5.4 [facility] Comment on above: Performed By: #### M 100.2200, L501.9520, L500.4050, L100.0100, L3300.0940 ####[facility] [address] [place], [address] RDW SD 51.9 fl High 35.1-43.9 [facility] Comment on above: Performed By: #### M 100.2200, L501.9520, L500.4050, L100.0100, L3300.0940 ####[facility] [address] [place], [address] WBC (Bld) [#/Vol] 9.7 10*3/uL Normal 4.4-11.0 [facility] Comment on above: Performed By: #### M 100.2200, L501.9520, L500.4050, L100.0100, L3300.0940 ####[facility] [address] [place], [address] Comprehensive Met[facility] 07-12-2024 Albumin [Mass/Vol] 3.1 g/dL Low 3.2-5.0 [facility] Comment on above: Performed By: #### M 100.2200, L501.9520, L500.4050, L100.0100, L3300.0940 ####[facility] [address] [place], [address] Albumin/Globulin [Mass ratio] 0.7 {ratio} Low 0.9-2.4 [facility] Comment on above: Performed By: #### M 100.2200, L501.9520, L500.4050, L100.0100, L3300.0940 ####[facility] [address] [place], [address] ALK P 74 U/L Normal 45-117 [facility] Comment on above: Performed By: #### M 100.2200, L501.9520, L500.4050, L100.0100, L3300.0940 ####[facility] [address] [place], [address] ALT [Catalytic activity/Vol] 11 U/L Low 13-56 [facility] Comment on above: Performed By: #### M 100.2200, L501.9520, L500.4050, L100.0100, L3300.0940 ####[facility] [address] [place], [address] AST [Catalytic activity/Vol] 12 U/L Low 15-37 [facility] Comment on above: Performed By: #### M 100.2200, L501.9520, L500.4050, L100.0100, L3300.0940 ####[facility] [address] [place], [address] Bilirubin [Mass/Vol] 0.40 mg/dL Normal 0.20-1.00 [facility] Comment on above: Result Comment: For patients on eltrombopag therapy, use of Dimension [place] TBIL is not recommended. Performed By: #### M 100.2200, L501.9520, L500.4050, L100.0100, L3300.0940 ####[facility] [address] [place], [address] BUN/CRE 20.3 RATIO High 10-20 [facility] Comment on above: Performed By: #### M 100.2200, L501.9520, L500.4050, L100.0100, L3300.0940 ####[facility] [address] [place], [address] CA,Total 9.2 mg/dL Normal 8.5-10.1 [facility] Comment on above: Performed By: #### M 100.2200, L501.9520, L500.4050, L100.0100, L3300.0940 ####[facility] [address] [place], [address] Chloride [Moles/Vol] 107 mmol/L Normal 98-107 [facility] Comment on above: Performed By: #### M 100.2200, L501.9520, L500.4050, L100.0100, L3300.0940 ####[facility] [address] [place], [address] CO2 [Moles/Vol] 25.0 mmol/L Normal 21.0-32.0 [facility] Comment on above: Performed By: #### M 100.2200, L501.9520, L500.4050, L100.0100, L3300.0940 ####[facility] [address] [place], [address] Creatinine [Mass/Vol] 1.33 mg/dL High 0.55-1.02 [facility] Comment on above: Result Comment: The validity of the calculated GFR GFRAA in patients over70 years has not been determined. Clinical correlation isessential. Performed By: #### M 100.2200, L501.9520, L500.4050, L100.0100, L3300.0940 ####[facility] [address] [place], [address] EST GFR - AA 50 mL/min Low >60 [facility] Comment on above: Result Comment: Afri can Trin[place] GFR Calc Performed By: #### M 100.2200, L501.9520, L500.4050, L100.0100, L3300.0940 ####[facility] [address] [place], [address] GAP 7 Normal 5-15 [facility] Comment on above: Performed By: #### M 100.2200, L501.9520, L500.4050, L100.0100, L3300.0940 ####[facility] [address] [place], [address] GFR/1.73 sq M.predicted among non-blacks MDRD (S/P/Bld) [Vol rate/Area] 41 mL/min/{1.73_m2} Low >60 [facility] Comment on above: Result Comment: Non- GFR Calc Performed By: #### M 100.2200, L501.9520, L500.4050, L100.0100, L3300.0940 ####[facility] [address] [place], [address] Globulin (S) [Mass/Vol] 4.5 g/dL High 2.2-4.2 [facility] Comment on above: Performed By: #### M 100.2200, L501.9520, L500.4050, L100.0100, L3300.0940 ####[facility] [address] [place], [address] Glucose [Mass/Vol] 113 mg/dL High 74-106 [facility] Comment on above: Result Comment: Fast ing Glucose result from 100 to 125 mg/dLsuggests IMPAIRED HOMEOSTASIS per A.D.A. criteria. Performed By: #### M 100.2200, L501.9520, L500.4050, L100.0100, L3300.0940 ####[facility] [address] [place], [address] Potassium [Moles/Vol] 5.0 mmol/L Normal 3.5-5.1 [facility] Comment on above: Performed By: #### M 100.2200, L501.9520, L500.4050, L100.0100, L3300.0940 ####[facility] [address] [place], [address] Sodium [Moles/Vol] 139 mmol/L Normal 136-145 [facility] Comment on above: Performed By: #### M 100.2200, L501.9520, L500.4050, L100.0100, L3300.0940 ####[facility] [address] [place], [address] T PROT 7.6 g/dL Normal 6.4-8.2 [facility] Comment on above: Performed By: #### M 100.2200, L501.9520, L500.4050, L100.0100, L3300.0940 ####[facility] [address] [place], [address] Urea nitrogen [Mass/Vol] 27 mg/dL High 7-18 [facility] Comment on above: Performed By: #### M 100.2200, L501.9520, L500.4050, L100.0100, L3300.0940 ####[facility] [address] [place], [address] Thyroid Stim Hormone (TSH)on 07-12-2024 TSH 2.330 uIU/mL Normal 0.358-3.740 [facility] Comment on above: Performed By: #### M 100.2200, L501.9520, L500.4050, L100.0100, L3300.0940 ####[facility] [address] [place], [address] Thin prep Papanicolaou smear with manual screeningOrdered By: Marie Caldera on 01-27-2024 Thin prep Papanicolaou smear with manual screening 122 mg/dL 74-106 [facility] Comment on above: MANAGEMENT OF PATIEN T CARE PER NURSING PROTOCOL Basophil percentageOrdered B y: Marie Caldera on 01-24-2024 Chloride [Moles/Vol] 108 mmol/L 98-107 [facility] Glucose [Mass/Vol] 121 mg/dL 74-106 [facility] Comment on above: Fasting Glucose resu lt from 100 to 125 mg/dL suggests IMPAIRED HOMEOSTASIS per A.D.A. criteria. Hemoglobin (Bld) [Mass/Vol] 10.3 g/dL 12.0-15.0 [facility] Potassium [Moles/Vol] 4.7 mmol/L 3.5-5.1 [facility] Sodium [Moles/Vol] 138 mmol/L 136-145 [facility] WBC (Bld) [#/Vol] 9.3 10*3/uL 4.4-11.0 [facility] Determination of erythrocyte mean corpuscular volume (MCV)Ordered By: Marie Caldera on 01-24-2024 MCV (RBC) [Entitic vol] 97.2 fL 81-99 [facility] Erythrocyte distribution wid th ratioOrdered By: Marie Caldera on 01-24-2024 Erythrocyte distribution width (RBC) [Ratio] 15.8 % 11.6-14.6 [facility] Erythrocyte distribution wid th standard deviationOrdered By: Marie Caldera on 01-24-2024 Erythrocyte distribution width (RBC) [Entitic vol] 56.1 fL 35.1-43.9 [facility] Hematocrit Auto (Bld) [Volum e fraction]Ordered By: Marie Caldera on 01-24-2024 Hematocrit (Bld) [Volume fraction] 35.0 % 37-47 [facility] Laboratory - Chemistry and C hemistry - challengeOrdered By: Marie Caldera on 01-24-2024 CO2 [Moles/Vol] 21.0 mmol/L 21.0-32.0 [facility] Urea nitrogen/Creatinine [Mass ratio] 27.7 mg/mg 10-20 [facility] Laboratory - Hematology and Cell countsOrdered By: Marie Caldera on 01-24-2024 MCH (RBC) [Entitic mass] 28.6 pg 27.0-32.0 [facility] MCHC (RBC) [Mass/Vol] 29.4 g/dL 32-36 [facility] Platelet mean volume (Bld) [Entitic vol] 9.8 fL 6.2-12.0 [facility] Platelets (Bld) [#/Vol] 216 10*3/uL 150-450 [facility] No Panel InformationOrdered By: Marie Caldera on 01-24-2024 Estimated GFR (MDRD) Amer 52 mL/min >60 [facility] Estimated GFR (MDRD) Non-Af Amer 43 mL/min >60 [facility] RBC Auto (Bld) [#/Vol]Ordere d By: Marie Caldera on 01-24-2024 RBC (Bld) [#/Vol] 3.60 10*6/uL 4.2-5.4 [facility] Serum or plasma calcium sarbjit urement (mass/volume)Ordered By: Marie Caldera on 01-24-2024 Calcium [Mass/Vol] 9.7 mg/dL 8.5-10.1 [facility] Serum or plasma creatinine m easurement (mass/volume)Ordered By: Marie Caldera on 01-24-2024 Creatinine [Mass/Vol] 1.30 mg/dL 0.55-1.02 [facility] Comment on above: The validity of the calculated GFR & GFRAA in patients over 70 years has not been determined. Clinical correlation is essential. Serum or plasma thyroid stim ulating hormone (TSH) measurement (units/volume)Ordered By: Marie Caldera on 01-24-2024 TSH Qn 2.00 uIU/mL 0.358-3.74 [facility] Serum or plasma urea nitroge n measurement (mass/volume)Ordered By: Marie Caldera on 01-24-2024 Urea nitrogen [Mass/Vol] 36 mg/dL 7-18 [facility] Thin prep Papanicolaou smear with manual screeningOrdered By: Marie Caldera on 01-24-2024 Thin prep Papanicolaou smear with manual screening 9 5-15 [facility] Thin prep Papanicolaou smear with manual screeningOrdered By: Marie Caldera on 11-25-2023 Thin prep Papanicolaou smear with manual screening 114 mg/dL 74-106 [facility] Comment on above: MANAGEMENT OF PATIEN T CARE PER NURSING PROTOCOL Thin prep Papanicolaou smear with manual screeningOrdered By: Marie Caldera on 11-11-2023 Thin prep Papanicolaou smear with manual screening 100 mg/dL 74-106 [facility] Comment on above: MANAGEMENT OF PATIEN T CARE PER NURSING PROTOCOL Absolute lymphocyte countOrd ered By: Corby Heller on 10-27-2023 Lymphocytes Auto (Unsp spec) [#/Vol] 2.35 10*3/uL 0.83-4.51 [facility] Automated lymphocyte count a s percentage of total leukocytesOrdered By: Corby Heller on 10-27-2023 Lymphocytes/100 WBC Auto (Unsp spec) 30.4 % 19-41 [facility] Basophil percentageOrdered B y: Corby Heller on 10-27-2023 Basophils/100 WBC (Bld) 0.8 % 0-1 [facility] Bilirubin [Mass/Vol] 0.40 mg/dL 0.20-1.00 [facility] Comment on above: For patients on eltr ombopag therapy, use of Dimension [place] TBIL is not recommended. Chloride [Moles/Vol] 107 mmol/L 98-107 [facility] Eosinophils/100 WBC (Bld) 4.5 % 0-5 [facility] Glucose [Mass/Vol] 150 mg/dL 74-106 [facility] Comment on above: Fasting Glucose resu lt greater than or equal to 126 mg/dL suggests DIABETES MELLITUS per A.D.A. criteria. Hemoglobin (Bld) [Mass/Vol] 10.1 g/dL 12.0-15.0 [facility] Monocytes/100 WBC (Bld) 7.4 % 0-10 [facility] Neutrophils (Bld) [#/Vol] 4.4 10*3/uL 2.0-7.7 [facility] Neutrophils/100 WBC (Bld) 56.4 % 47-70 [facility] Potassium [Moles/Vol] 4.2 mmol/L 3.5-5.1 [facility] Protein [Mass/Vol] 7.7 g/dL 6.4-8.2 [facility] Sodium [Moles/Vol] 139 mmol/L 136-145 [facility] WBC (Bld) [#/Vol] 7.7 10*3/uL 4.4-11.0 [facility] Culture, urineOrdered By: Ryder Heller on 10-27-2023 Bacteria identified Cx Nom (U) Mixed Gram Pos & Gram Neg Org [facility] Bacteria identified Cx Nom (U) Mixed Gram Pos & Gram Neg Org [facility] Determination of erythrocyte mean corpuscular volume (MCV)Ordered By: Corby Heller on 10-27-2023 MCV (RBC) [Entitic vol] 94.8 fL 81-99 [facility] Erythrocyte distribution wid th ratioOrdered By: Corby Heller on 10-27-2023 Erythrocyte distribution width (RBC) [Ratio] 15.9 % 11.6-14.6 [facility] Erythrocyte distribution wid th standard deviationOrdered By: Corby Heller on 10-27-2023 Erythrocyte distribution width (RBC) [Entitic vol] 55.0 fL 35.1-43.9 [facility] Hematocrit Auto (Bld) [Volum e fraction]Ordered By: Corby Heller on 10-27-2023 Hematocrit (Bld) [Volume fraction] 33.1 % 37-47 [facility] Immature granulocytes/100 WB C Auto (Bld)Ordered By: Corby Heller 10-27-2023 Immature granulocytes/100 WBC (Bld) 0.500 % 0.0-0.9 [facility] Comment on above: IG% - Immature Granu locytes (promyelocytes, myelocytes and metamyelocytes) > 1% indicates that a LEFT SHIFT is Present. Laboratory - Chemistry and C hemistry - challengeOrdered By: Corby Heller on 10-27-2023 Albumin/Globulin [Mass ratio] 0.6 {ratio} 0.9-2.4 [facility] ALP [Catalytic activity/Vol] 71 U/L 45-117 [facility] ALT [Catalytic activity/Vol] 16 U/L 13-56 [facility] CO2 [Moles/Vol] 27.0 mmol/L 21.0-32.0 [facility] Globulin (S) [Mass/Vol] 4.7 g/dL 2.2-4.2 [facility] Urea nitrogen/Creatinine [Mass ratio] 21.4 mg/mg 10-20 [facility] - Hematology and Cell countsOrdered By: Corby Heller 10-27-2023 MCH (RBC) [Entitic mass] 28.9 pg 27.0-32.0 [facility] MCHC (RBC) [Mass/Vol] 30.5 g/dL 32-36 [facility] Nucleated RBC/100 WBC (Bld) [Ratio] 0 % 0-5 [facility] Platelets (Bld) [#/Vol] 257 10*3/uL 150-450 [facility] No Panel InformationOrdered By: Corby Heller on 10-27-2023 Estimated GFR (MDRD) Amer 67 mL/min >60 [facility] Comment on above: GFR Calc Estimated GFR (MDRD) Non-Af Amer 56 mL/min >60 [facility] Comment on above: Non- GFR Calc Vitamin D 25-Hydroxy 59.1 ng/mL [facility] Comment on above: Vitamin D 25(OH) Sta tus Range Deficiency <20 ng/mL (50nmol/L) Insufficiency 20 - 30 ng/mL (50 - 75 nmol/L) Sufficiency 30 - 100 ng/mL (75 - 250 nmol/L) Toxicity >100 ng/mL (>250 nmol/L) Platelet mean volume Johnny-Ec ker (Bld) [Entitic vol]Ordered By: Corby Heller on 10-27-2023 Platelet mean volume (Bld) [Entitic vol] 9.6 fL 6.2-12.0 [facility] RBC Auto (Bld) [#/Vol]Ordere d By: Corby Heller on 10-27-2023 RBC (Bld) [#/Vol] 3.49 10*6/uL 4.2-5.4 [facility] Serum or plasma calcium sarbjit urement (mass/volume)Ordered By: Corby Heller 10-27-2023 Calcium [Mass/Vol] 9.7 mg/dL 8.5-10.1 [facility] Serum or plasma creatinine m easurement (mass/volume)Ordered By: Corby Heller on 10-27-2023 Creatinine [Mass/Vol] 1.03 mg/dL 0.55-1.02 [facility] Comment on above: The validity of the calculated GFR & GFRAA in patients over 70 years has not been determined. Clinical correlation is essential. Serum or plasma thyroid stim ulating hormone (TSH) measurement (units/volume)Ordered By: Corby Heller on 10-27-2023 TSH Qn 3.47 uIU/mL 0.358-3.74 [facility] Serum or plasma urea nitroge n measurement (mass/volume)Ordered By: Corby Heller on 10-27-2023 Urea nitrogen [Mass/Vol] 22 mg/dL 7-18 [facility] Thin prep Papanicolaou smear with manual screeningOrdered By: Corby Heller on 10-27-2023 Thin prep Papanicolaou smear with manual screening 3.0 g/dL 3.2-5.0 [facility] Thin prep Papanicolaou smear with manual screening 19 U/L 15-37 [facility] Thin prep Papanicolaou smear with manual screening 5 5-15 [facility] Basophil percentageOrdered B y: Marie Caldera on 08-05-2023 Basophil percentage >100 SEEN /hpf 0-5 [facility] Bilirubin Test strip Ql (U)O rdered By: Marie Caldera on 08-05-2023 Bilirubin Ql (U) Negative Negative [facility] Glucose Glucometer (BldC) [M ass/Vol]Ordered By: Marie Caldera on 08-05-2023 Glucose [Mass/Vol] 104 mg/dL 74-106 [facility] Comment on above: MANAGEMENT OF PATIEN T CARE PER NURSING PROTOCOL Ketones Test strip Ql (U)Ord ered By: Marie Caldera on 08-05-2023 Ketones Ql (U) Negative Negative [facility] Mucus LM Ql (Urine sed)Order ed By: Marie Caldera on 08-05-2023 Mucus Ql (Urine sed) 0 SEEN /hpf [facility] Nitrite Test strip Ql (U)Ord ered By: Marie Caldera on 08-05-2023 Nitrite Ql (U) Negative Negative [facility] Protein Test strip Ql (U)Ord ered By: Marie Caldera on 08-05-2023 Protein Ql (U) 100 mg/dl Negative [facility] Squamous epithelial cells de tection in urine sediment by light microscopyOrdered By: Marie Caldera on 08-05-2023 Epithelial cells.squamous LM Ql (Urine sed) 0 SEEN /hpf 5-10 [facility] Urine blood detectionOrdered By: Marie Caldera on 08-05-2023 RBC Ql (U) 150 /ul Negative [facility] RBC Ql (U) 0 SEEN /hpf 0-5 [facility] Urine clarityOrdered By: Agnieszka Caldera on 08-05-2023 Clarity (U) Cloudy Clear [facility] Urine color determinationOrd ered By: Marie Caldera on 08-05-2023 Color (U) Yellow Yellow [facility] Urine glucose detectionOrder ed By: Marie Caldera on 08-05-2023 Glucose Ql (U) Normal mg/dl Normal [facility] Urine leukocyte esterase det ection by dipstickOrdered By: Marie Caldera on 08-05-2023 Leukocyte esterase Test strip Ql (U) 500 /ul Negative [facility] Urine pHOrdered By: Marie jones on 08-05-2023 pH (U) 5.0 [pH] 5.0 - 8.0 [facility] Urine sediment bacteria coun t by microscopy (number/high power field)Ordered By: Marie Caldera on 08-05-2023 Bacteria LM.HPF (Urine sed) [#/Area] 0 /[HPF] None Seen [facility] Urine specific gravity measu rementOrdered By: Marie Caldera on 08-05-2023 Specific gravity (U) [Rel density] 1.015 1.002-1.030 [facility] Urobilinogen Auto test strip Ql (U)Ordered By: Marie Caldera on 08-05-2023 Urobilinogen Ql (U) Normal mg/dl Normal [facility] Absolute lymphocyte countOrd ered By: Corby Heller on 07-21-2023 Lymphocytes Auto (Unsp spec) [#/Vol] 1.88 10*3/uL 0.83-4.51 [facility] Basophil percentageOrdered B y: Corby Heller on 07-21-2023 Basophils/100 WBC (Bld) 0.6 % 0-1 [facility] Bilirubin [Mass/Vol] 0.40 mg/dL 0.20-1.00 [facility] Comment on above: For patients on eltr ombopag therapy, use of Dimension [place] TBIL is not recommended. Chloride [Moles/Vol] 106 mmol/L 98-107 [facility] Eosinophils/100 WBC (Bld) 7.1 % 0-5 [facility] Glucose [Mass/Vol] 162 mg/dL 74-106 [facility] Comment on above: Fasting Glucose resu lt greater than or equal to 126 mg/dL suggests DIABETES MELLITUS per A.D.A. criteria. Neutrophils (Bld) [#/Vol] 4.1 10*3/uL 2.0-7.7 [facility] Neutrophils/100 WBC (Bld) 57.9 % 47-70 [facility] Potassium [Moles/Vol] 4.0 mmol/L 3.5-5.1 [facility] Protein [Mass/Vol] 8.0 g/dL 6.4-8.2 [facility] Sodium [Moles/Vol] 139 mmol/L 136-145 [facility] WBC (Bld) [#/Vol] 7.1 10*3/uL 4.4-11.0 [facility] Blood erythrocytes count (nu mber/volume)Ordered By: Corby Heller on 07-21-2023 RBC (Bld) [#/Vol] 3.34 10*6/uL 4.2-5.4 [facility] Blood hemoglobin measurement (mass/volume)Ordered By: Corby Heller on 07-21-2023 Hemoglobin (Bld) [Mass/Vol] 10.0 g/dL 12.0-15.0 [facility] Blood lymphocytes/100 leukoc ytesOrdered By: Corby Heller on 07-21-2023 Lymphocytes/100 WBC (Bld) 26.6 % 19-41 [facility] Blood monocytes/100 leukocyt esOrdered By: Corby Heller on 07-21-2023 Monocytes/100 WBC (Bld) 7.4 % 0-10 [facility] Blood platelet mean volumeOr dered By: Corby Heller on 07-21-2023 Platelet mean volume (Bld) [Entitic vol] 10.0 fL 6.2-12.0 [facility] Determination of erythrocyte mean corpuscular volume (MCV)Ordered By: Corby Heller on 07-21-2023 MCV (RBC) [Entitic vol] 97.0 fL 81-99 [facility] Hematocrit Auto (Bld) [Volum e fraction]Ordered By: Corby Heller on 07-21-2023 Hematocrit (Bld) [Volume fraction] 32.4 % 37-47 [facility] - Chemistry and C hemistry - challengeOrdered By: Corby Heller on 07-21-2023 ALP [Catalytic activity/Vol] 64 U/L 45-117 [facility] ALT [Catalytic activity/Vol] 14 U/L 13-56 [facility] CO2 [Moles/Vol] 29.0 mmol/L 21.0-32.0 [facility] Globulin (S) [Mass/Vol] 5.0 g/dL 2.2-4.2 [facility] Urea nitrogen/Creatinine [Mass ratio] 28.3 mg/mg 10-20 [facility] - Hematology and Cell countsOrdered By: Corby Heller on 07-21-2023 Erythrocyte distribution width (RBC) [Entitic vol] 56.1 fL 35.1-43.9 [facility] Erythrocyte distribution width (RBC) [Ratio] 15.9 % 11.6-14.6 [facility] Immature granulocytes/100 WBC (Bld) 0.400 % 0.0-0.9 [facility] Comment on above: IG% - Immature Granu locytes (promyelocytes, myelocytes and metamyelocytes) > 1% indicates that a LEFT SHIFT is Present. MCH (RBC) [Entitic mass] 29.9 pg 27.0-32.0 [facility] Nucleated RBC/100 WBC (Bld) [Ratio] 0 % 0-5 [facility] MCHC Auto (RBC) [Mass/Vol]Or dered By: Corby Heller on 07-21-2023 MCHC (RBC) [Mass/Vol] 30.9 g/dL 32-36 [facility] No Panel InformationOrdered By: Corby Heller on 07-21-2023 Estimated GFR (MDRD) Amer 65 mL/min >60 [facility] Comment on above: GFR Calc Estimated GFR (MDRD) Non-Af Amer 54 mL/min >60 [facility] Comment on above: Non- GFR Calc Thyroid Stimulating Hormone (TSH) 2.12 uIU/mL 0.358-3.74 [facility] Vitamin D 25-Hydroxy 57.8 ng/mL [facility] Comment on above: Vitamin D 25(OH) Sta tus Range Deficiency <20 ng/mL (50nmol/L) Insufficiency 20 - 30 ng/mL (50 - 75 nmol/L) Sufficiency 30 - 100 ng/mL (75 - 250 nmol/L) Toxicity >100 ng/mL (>250 nmol/L) Platelets bldOrdered By: Corby Heller on 07-21-2023 Platelets (Bld) [#/Vol] 193 10*3/uL 150-450 [facility] Serum or plasma albumin sarbjit urement (mass/volume)Ordered By: Corby Heller on 07-21-2023 Albumin [Mass/Vol] 3.0 g/dL 3.2-5.0 [facility] Serum or plasma albumin/glob ulin mass ratioOrdered By: Corby Heller on 07-21-2023 Albumin/Globulin [Mass ratio] 0.6 {ratio} 0.9-2.4 [facility] Serum or plasma calcium sarbjit urement (mass/volume)Ordered By: Corby Heller on 07-21-2023 Calcium [Mass/Vol] 10.2 mg/dL 8.5-10.1 [facility] Serum or plasma creatinine m easurement (mass/volume)Ordered By: Corby Heller on 07-21-2023 Creatinine [Mass/Vol] 1.06 mg/dL 0.55-1.02 [facility] Comment on above: The validity of the calculated GFR & GFRAA in patients over 70 years has not been determined. Clinical correlation is essential. Serum or plasma urea nitroge n measurement (mass/volume)Ordered By: Corby Heller on 07-21-2023 Urea nitrogen [Mass/Vol] 30 mg/dL 7-18 [facility] Thin prep Papanicolaou smear with manual screeningOrdered By: Corby Heller on 07-21-2023 Thin prep Papanicolaou smear with manual screening 16 U/L 15-37 [facility] Thin prep Papanicolaou smear with manual screening 4 5-15 [facility] Absolute lymphocyte countOrd ered By: Corby Heller on 07-15-2023 Lymphocytes Auto (Unsp spec) [#/Vol] 1.80 10*3/uL 0.83-4.51 [facility] Basophil percentageOrdered B y: Corby Heller on 07-15-2023 Basophils/100 WBC (Bld) 1.3 % 0-1 [facility] Chloride [Moles/Vol] 105 mmol/L 98-107 [facility] Eosinophils/100 WBC (Bld) 5.0 % 0-5 [facility] Glucose [Mass/Vol] 132 mg/dL 74-106 [facility] Comment on above: Fasting Glucose resu lt greater than or equal to 126 mg/dL suggests DIABETES MELLITUS per A.D.A. criteria. Neutrophils (Bld) [#/Vol] 3.3 10*3/uL 2.0-7.7 [facility] Neutrophils/100 WBC (Bld) 53.5 % 47-70 [facility] Potassium [Moles/Vol] 4.0 mmol/L 3.5-5.1 [facility] Sodium [Moles/Vol] 138 mmol/L 136-145 [facility] WBC (Bld) [#/Vol] 6.2 10*3/uL 4.4-11.0 [facility] Blood erythrocytes count (nu mber/volume)Ordered By: Corby Heller on 07-15-2023 RBC (Bld) [#/Vol] 3.10 10*6/uL 4.2-5.4 [facility] Blood hemoglobin measurement (mass/volume)Ordered By: Corby Heller on 07-15-2023 Hemoglobin (Bld) [Mass/Vol] 9.3 g/dL 12.0-15.0 [facility] Blood lymphocytes/100 leukoc ytesOrdered By: Corby Heller on 07-15-2023 Lymphocytes/100 WBC (Bld) 28.8 % 19-41 [facility] Blood monocytes/100 leukocyt esOrdered By: Corby Heller on 07-15-2023 Monocytes/100 WBC (Bld) 10.9 % 0-10 [facility] Blood platelet mean volumeOr dered By: Corby Heller on 07-15-2023 Platelet mean volume (Bld) [Entitic vol] 10.1 fL 6.2-12.0 [facility] Determination of erythrocyte mean corpuscular volume (MCV)Ordered By: Corby Heller on 07-15-2023 MCV (RBC) [Entitic vol] 98.4 fL 81-99 [facility] Glucose Glucometer (BldC) [M ass/Vol]Ordered By: Corby Heller on 07-15-2023 Glucose [Mass/Vol] 136 mg/dL 74-106 [facility] Comment on above: MANAGEMENT OF PATIEN T CARE PER NURSING PROTOCOL Hematocrit Auto (Bld) [Volum e fraction]Ordered By: Corby Heller on 07-15-2023 Hematocrit (Bld) [Volume fraction] 30.5 % 37-47 [facility] - Chemistry and C hemistry - challengeOrdered By: Corby Heller on 07-15-2023 CO2 [Moles/Vol] 28.0 mmol/L 21.0-32.0 [facility] Urea nitrogen/Creatinine [Mass ratio] 36.5 mg/mg 10-20 [facility] - Hematology and Cell countsOrdered By: Corby Heller on 07-15-2023 Erythrocyte distribution width (RBC) [Entitic vol] 58.1 fL 35.1-43.9 [facility] Erythrocyte distribution width (RBC) [Ratio] 16.2 % 11.6-14.6 [facility] Immature granulocytes/100 WBC (Bld) 0.500 % 0.0-0.9 [facility] Comment on above: IG% - Immature Granu locytes (promyelocytes, myelocytes and metamyelocytes) > 1% indicates that a LEFT SHIFT is Present. MCH (RBC) [Entitic mass] 30.0 pg 27.0-32.0 [facility] Nucleated RBC/100 WBC (Bld) [Ratio] 0 % 0-5 [facility] MCHC Auto (RBC) [Mass/Vol]Or dered By: Corby Heller on 07-15-2023 MCHC (RBC) [Mass/Vol] 30.5 g/dL 32-36 [facility] No Panel InformationOrdered By: Corby Heller on 07-15-2023 Estimated Creatinine Clearance Calc 33.94 ml/min [facility] Estimated GFR (MDRD) Amer 59 mL/min >60 [facility] Comment on above: GFR Calc Estimated GFR (MDRD) Non-Af Amer 49 mL/min >60 [facility] Comment on above: Non- GFR Calc Platelets bldOrdered By: Corby Heller on 07-15-2023 Platelets (Bld) [#/Vol] 163 10*3/uL 150-450 [facility] Serum or plasma calcium sarbjit urement (mass/volume)Ordered By: Corby Heller on 07-15-2023 Calcium [Mass/Vol] 9.5 mg/dL 8.5-10.1 [facility] Serum or plasma creatinine m easurement (mass/volume)Ordered By: Corby Heller on 07-15-2023 Creatinine [Mass/Vol] 1.15 mg/dL 0.55-1.02 [facility] Comment on above: The validity of the calculated GFR & GFRAA in patients over 70 years has not been determined. Clinical correlation is essential. Serum or plasma urea nitroge n measurement (mass/volume)Ordered By: Corby Heller on 07-15-2023 Urea nitrogen [Mass/Vol] 42 mg/dL 7-18 [facility] Thin prep Papanicolaou smear with manual screeningOrdered By: Corby Heller on 07-15-2023 Thin prep Papanicolaou smear with manual screening 5 5-15 [facility] Basophil percentageOrdered B y: Corby Heller on 07-09-2023 Basophil percentage 25-50 SEEN /hpf 0-5 [facility] Bilirubin Test strip Ql (U)O rdered By: Corby Heller on 07-09-2023 Bilirubin Ql (U) Negative Negative [facility] Culture, urineOrdered By: Ryder Heller on 07-09-2023 Bacteria identified Cx Nom (U) Escherichia coli [facility] Bacteria identified Cx Nom (U) Escherichia coli [facility] Ketones Test strip Ql (U)Ord ered By: Corby Heller on 07-09-2023 Ketones Ql (U) Negative Negative [facility] Mucus LM Ql (Urine sed)Order ed By: Corby Heller on 07-09-2023 Mucus Ql (Urine sed) 0 SEEN /hpf [facility] Nitrite Test strip Ql (U)Ord ered By: Corby Heller on 07-09-2023 Nitrite Ql (U) Positive Negative [facility] Protein Test strip Ql (U)Ord ered By: Corby Heller on 07-09-2023 Protein Ql (U) 30 mg/dl Negative [facility] Squamous epithelial cells de tection in urine sediment by light microscopyOrdered By: Corby Heller on 07-09-2023 Epithelial cells.squamous LM Ql (Urine sed) 0 SEEN /hpf 5-10 [facility] Urine blood detectionOrdered By: Corby Heller on 07-09-2023 RBC Ql (U) 25 /ul Negative [facility] RBC Ql (U) 0-5 SEEN /hpf 0-5 [facility] Urine clarityOrdered By: Corby Heller on 07-09-2023 Clarity (U) Sl. Cloudy Clear [facility] Urine color determinationOrd ered By: Corby Heller on 07-09-2023 Color (U) Yellow Yellow [facility] Urine glucose detectionOrder ed By: Corby Heller on 07-09-2023 Glucose Ql (U) Normal mg/dl Normal [facility] Urine leukocyte esterase det ection by dipstickOrdered By: Corby Heller on 07-09-2023 Leukocyte esterase Test strip Ql (U) 500 /ul Negative [facility] Urine pHOrdered By: Corby Heller on 07-09-2023 pH (U) 6.5 [pH] 5.0 - 8.0 [facility] Urine sediment bacteria coun t by microscopy (number/high power field)Ordered By: Corby Heller on 07-09-2023 Bacteria LM.HPF (Urine sed) [#/Area] 1 /[HPF] None Seen [facility] Urine specific gravity measu rementOrdered By: Corby Heller on 07-09-2023 Specific gravity (U) [Rel density] 1.010 1.002-1.030 [facility] Urobilinogen Auto test strip Ql (U)Ordered By: Corby Heller on 07-09-2023 Urobilinogen Ql (U) Normal mg/dl Normal [facility] Blood band neutrophil count as percentage of total leukocytesOrdered By: Corby Heller on 07-01-2023 Band form neutrophils/100 WBC (Bld) 6 % 0-5 [facility] Blood eosinophils/100 leukoc ytesOrdered By: Corby Heller on 07-01-2023 Eosinophils/100 WBC (Bld) 2 % 0-5 [facility] Blood lymphocytes/100 leukoc ytesOrdered By: Corby Heller on 07-01-2023 Lymphocytes/100 WBC (Bld) 16 % 19-41 [facility] Blood metamyelocytes/100 dar kocytesOrdered By: Corby Heller on 07-01-2023 Metamyelocytes/100 WBC (Bld) 1 % 0-1 [facility] Blood monocytes/100 leukocyt esOrdered By: Corby Heller on 07-01-2023 Monocytes/100 WBC (Bld) 7 % 0-10 [facility] Blood platelet adequacy dete ction by light microscopyOrdered By: Corby Heller on 07-01-2023 Platelets LM Ql (Bld) ADEQUATE ADEQ [facility] Blood promyelocytes/100 leuk ocytesOrdered By: Corby Heller on 07-01-2023 Promyelocytes/100 WBC (Bld) 2 % 0-0 [facility] Blood segmented neutrophils/ 100 leukocytesOrdered By: Corby Heller on 07-01-2023 Segmented neutrophils/100 WBC (Bld) 58 % 47-70 [facility] - Hematology and Cell countsOrdered By: Corby Heller on 07-01-2023 Anisocytosis Ql (Bld) 1+ [facility] Myelocytes/100 WBC (Bld) 8 % 0-0 [facility] RBC morphologyOrdered By: Ryder Heller on 07-01-2023 RBC morphology finding Nom (Bld) NORM C+C NORMAL NORM C&C [facility] Review by pathologistOrdered By: Corby Heller on 07-01-2023 Pathologist review Olaf (Unsp spec) [Interp] Reviewed [facility] Comment on above: Previous reported re sult: Lydia song Edited by: RGOGARLAND on 07/01/23:1046Neutrophilic left shift.Normocytic anemia.Clinical correlation necessary.Alex Baker M.D. 07/01/23 AMENDED REPORT 07/01/23 1046 PATH REV previously reported as: Lydia song Total cell countOrdered By: Corby Heller on 07-01-2023 Cells counted Molgen (Bld/Tiss) [#] 100 MANUAL DIFF [facility] Glucose Glucometer (BldC) [M ass/Vol]Ordered By: Alonso Bautista on 06-30-2023 Glucose [Mass/Vol] 144 mg/dL 74-106 [facility] Comment on above: MANAGEMENT OF PATIEN T CARE PER NURSING PROTOCOL Absolute lymphocyte countOrd ered By: Zenon Martinez on 06-29-2023 Lymphocytes Auto (Unsp spec) [#/Vol] 2.13 10*3/uL 0.83-4.51 [facility] Basophil percentageOrdered B y: Zenon Martinez on 06-29-2023 Basophil percentage Not Reportable [facility] Chloride [Moles/Vol] 106 mmol/L 98-107 [facility] Glucose [Mass/Vol] 125 mg/dL 74-106 [facility] Comment on above: Fasting Glucose resu lt from 100 to 125 mg/dL suggests IMPAIRED HOMEOSTASIS per A.D.A. criteria. Neutrophils (Bld) [#/Vol] 7.6 10*3/uL 2.0-7.7 [facility] Potassium [Moles/Vol] 4.1 mmol/L 3.5-5.1 [facility] Sodium [Moles/Vol] 135 mmol/L 136-145 [facility] WBC (Bld) [#/Vol] 11.2 10*3/uL 4.4-11.0 [facility] Blood band neutrophil count as percentage of total leukocytesOrdered By: Zenon Martinez on 06-29-2023 Band form neutrophils/100 WBC (Bld) 2 % 0-5 [facility] Blood eosinophils/100 leukoc ytesOrdered By: Zenon Martinez on 06-29-2023 Eosinophils/100 WBC (Bld) 5 % 0-5 [facility] Blood erythrocytes count (nu mber/volume)Ordered By: Zenon Martinez on 06-29-2023 RBC (Bld) [#/Vol] 3.00 10*6/uL 4.2-5.4 [facility] Blood hemoglobin measurement (mass/volume)Ordered By: Zenon Martinez on 06-29-2023 Hemoglobin (Bld) [Mass/Vol] 9.0 g/dL 12.0-15.0 [facility] Blood lymphocytes/100 leukoc ytesOrdered By: Zenon Martinez on 06-29-2023 Lymphocytes/100 WBC (Bld) 19 % 19-41 [facility] Blood monocytes/100 leukocyt esOrdered By: Zenon Martinez on 06-29-2023 Monocytes/100 WBC (Bld) 6 % 0-10 [facility] Blood platelet adequacy dete ction by light microscopyOrdered By: Zenon Martinez on 06-29-2023 Platelets LM Ql (Bld) ADEQUATE ADEQ [facility] Blood platelet mean volumeOr dered By: Zenon Martinez on 06-29-2023 Platelet mean volume (Bld) [Entitic vol] 9.9 fL 6.2-12.0 [facility] Blood segmented neutrophils/ 100 leukocytesOrdered By: Zenon Martinez on 06-29-2023 Segmented neutrophils/100 WBC (Bld) 66 % 47-70 [facility] Determination of erythrocyte mean corpuscular volume (MCV)Ordered By: Zenon Martinez on 06-29-2023 MCV (RBC) [Entitic vol] 94.7 fL 81-99 [facility] Hematocrit Auto (Bld) [Volum e fraction]Ordered By: Zenon Martinez on 06-29-2023 Hematocrit (Bld) [Volume fraction] 28.4 % 37-47 [facility] - Chemistry and C hemistry - challengeOrdered By: Zenon Martinez on 06-29-2023 CO2 [Moles/Vol] 25.0 mmol/L 21.0-32.0 [facility] Urea nitrogen/Creatinine [Mass ratio] 27.1 mg/mg 10-20 [facility] - Hematology and Cell countsOrdered By: Zenon Martinez on 06-29-2023 Erythrocyte distribution width (RBC) [Entitic vol] 54.1 fL 35.1-43.9 [facility] Erythrocyte distribution width (RBC) [Ratio] 15.5 % 11.6-14.6 [facility] MCH (RBC) [Entitic mass] 30.0 pg 27.0-32.0 [facility] Myelocytes/100 WBC (Bld) 2 % 0-0 [facility] MCHC Auto (RBC) [Mass/Vol]Or dered By: Zenon Martinez on 06-29-2023 MCHC (RBC) [Mass/Vol] 31.7 g/dL 32-36 [facility] No Panel InformationOrdered By: Zenon Martinez on 06-29-2023 Estimated Creatinine Clearance Calc 42.43 ml/min [facility] Estimated GFR (MDRD) Amer 77 mL/min >60 [facility] Comment on above: GFR Calc Estimated GFR (MDRD) Non-Af Amer 63 mL/min >60 [facility] Comment on above: Non- GFR Calc Reactive Lymphocytes 1+ [facility] Platelets bldOrdered By: Eagle Martinez on 06-29-2023 Platelets (Bld) [#/Vol] 173 10*3/uL 150-450 [facility] RBC morphologyOrdered By: Michelle Martinez on 06-29-2023 RBC morphology finding Nom (Bld) NORM C+C NORMAL NORM C&C [facility] Review by pathologistOrdered By: Zenon Martinez on 06-29-2023 Pathologist review Olaf (Unsp spec) [Interp] Reviewed [facility] Comment on above: Previous reported re sult: Lydia song Edited by: RGOOD on 06/29/23:1329Leukocytosis.Normocytic anemia.NRBCs are noted.Alex Baker M.D. 06/29/23 AMENDED REPORT 06/29/23 1329 PATH REV previously reported as: Lydia song Serum or plasma calcium sarbjit urement (mass/volume)Ordered By: Zenon Martinez on 06-29-2023 Calcium [Mass/Vol] 7.9 mg/dL 8.5-10.1 [facility] Serum or plasma creatinine m easurement (mass/volume)Ordered By: Zenon Martinez on 06-29-2023 Creatinine [Mass/Vol] 0.92 mg/dL 0.55-1.02 [facility] Comment on above: The validity of the calculated GFR & GFRAA in patients over 70 years has not been determined. Clinical correlation is essential. Serum or plasma urea nitroge n measurement (mass/volume)Ordered By: Zenon Martinez on 06-29-2023 Urea nitrogen [Mass/Vol] 25 mg/dL 7-18 [facility] Thin prep Papanicolaou smear with manual screeningOrdered By: Zenon Martinez on 06-29-2023 Thin prep Papanicolaou smear with manual screening 4 5-15 [facility] Total cell countOrdered By: Zenon Martinez on 06-29-2023 Cells counted Molgen (Bld/Tiss) [#] 100 MANUAL DIFF [facility] Basophil percentageOrdered B y: Zenon Martinez on 06-28-2023 Basophils/100 WBC (Bld) 0.4 % 0-1 [facility] Eosinophils/100 WBC (Bld) 2.1 % 0-5 [facility] Blood lymphocytes/100 leukoc ytesOrdered By: Zenon Martinez on 06-28-2023 Lymphocytes/100 WBC (Bld) 17.4 % 19-41 [facility] Blood monocytes/100 leukocyt esOrdered By: Zenon Martinez on 06-28-2023 Monocytes/100 WBC (Bld) 5.4 % 0-10 [facility] - Hematology and Cell countsOrdered By: Zenon Martinez on 06-28-2023 Anisocytosis Ql (Bld) 1+ [facility] Immature granulocytes/100 WBC (Bld) 1.600 % 0.0-0.9 [facility] Comment on above: IG% - Immature Granu locytes (promyelocytes, myelocytes and metamyelocytes) > 1% indicates that a LEFT SHIFT is Present. Nucleated RBC/100 WBC (Bld) [Ratio] 0 % 0-5 [facility] Serum or plasma trough vanco mycin levelOrdered By: Juan Cerda on 06-28-2023 Vancomycin trough [Mass/Vol] 19.4 ug/mL 5.0-15.0 [facility] Comment on above: VANCOMYCIN STANDARED DRUG THERAPY TROUGH LEVEL: 5.0 - 15.0 mg/L VANCOMYCIN HIGH INTENSITY THERAPY TROUGH LEVEL: 15.0 - 20.0 mg/L High Intensity therapy recommended for serious lifethreatening infections include:- Ctvaywlhfa-Qstpebxkxmvo-Vhsfzouxg (Ventilator/Healtcare Associated)-Sepsis PLEASE CONTACT PHARMACY SERVICES (#[id number]) FOR INTERPRETATIONOF RESULTS. Bacteria identified Respirat ory culture Nom (Unsp spec)Ordered By: Clementine Prieto on 06-27-2023 Respiratory Culture Presumptive C albicans [facility] Basophil percentageOrdered B y: Bertram Chatterjee on 06-27-2023 Basophil percentage 4.1 mg/dL 2.5-4.9 [facility] Gram stain for investigation of transfusion reactionOrdered By: Clementine Prieto on 06-27-2023 Microscopic observation Gram stain Nom (Unsp spec) [facility] - Chemistry and C hemistry - challengeOrdered By: Bertram Chatterjee on 06-27-2023 Magnesium [Mass/Vol] 2.3 mg/dL 1.6-2.6 [facility] Basophil percentageOrdered B y: Clementine Prieto on 06-26-2023 Bilirubin [Mass/Vol] 1.30 mg/dL 0.20-1.00 [facility] Comment on above: For patients on eltr ombopag therapy, use of Dimension [place] TBIL is not recommended. Protein [Mass/Vol] 6.9 g/dL 6.4-8.2 [facility] Blood manual differential co mment interpretation (narrative result)Ordered By: Clementine Prieto on 06-26-2023 Manual differential comment Olaf (Bld) [Interp] SCANNED [facility] Comment on above: BANDS NOTED, LEFT SH IFT Clostridium difficile detect ion by polymerase chain reactionOrdered By: Clementine Prieto on 06-26-2023 C. difficile DNA ROSEANNE+probe Ql (Unsp spec) [facility] C. difficile DNA ROSEANNE+probe Ql (Unsp spec) [facility] - Chemistry and C hemistry - challengeOrdered By: Clementine Prieto on 06-26-2023 ALP [Catalytic activity/Vol] 66 U/L 45-117 [facility] ALT [Catalytic activity/Vol] 32 U/L 13-56 [facility] Globulin (S) [Mass/Vol] 4.6 g/dL 2.2-4.2 [facility] No Panel InformationOrdered By: Juan Cerda on 06-26-2023 Methicillin-Resist S.aureus DNA PCR Positive Negative [facility] Comment on above: CRITICAL VALUE VERIF IED. CALLED TO [id number] Alfredo Pardo.RESULTS READ BACK BY SAME. Serum or plasma albumin sarbjit urement (mass/volume)Ordered By: Clementine Prieto on 06-26-2023 Albumin [Mass/Vol] 2.3 g/dL 3.2-5.0 [facility] Serum or plasma albumin/glob ulin mass ratioOrdered By: Clementine Prieto on 06-26-2023 Albumin/Globulin [Mass ratio] 0.5 {ratio} 0.9-2.4 [facility] Stool Clostridium difficile detectionOrdered By: Clementine Prieto on 06-26-2023 C. difficile Ql (Stl) [facility] C. difficile Ql (Stl) [facility] Thin prep Papanicolaou smear with manual screeningOrdered By: Clementine Prieto on 06-26-2023 Thin prep Papanicolaou smear with manual screening 73 U/L 15-37 [facility] Assessment of wrist artery p atency prior to arterial punctureOrdered By: Clementine Prieto on 06-25-2023 Arterial patency Wrist artery --pre arterial puncture Positive [facility] Base excessOrdered By: Hilda Prieto on 06-25-2023 Base excess Calc (BldV) [Moles/Vol] -6 mmol/L -2-2 [facility] Basophil percentageOrdered B y: Clementine Prieto on 06-25-2023 Basophil percentage 20.8 mmol/L 22-26 [facility] Basophils/100 WBC (Bld) 91 % 95-99 [facility] Basophil percentageOrdered B y: Reji Morillo on 06-25-2023 Lactate [Moles/Vol] 1.4 mmol/L 0.4-2.0 [facility] Basophil percentage 50-100 SEEN /hpf 0-5 [facility] Bilirubin Test strip Ql (U)O rdered By: Reji Morillo on 06-25-2023 Bilirubin Ql (U) 1 mg/dL Negative [facility] Comment on above: COLOR OF URINE MAY A FFECT DIPSTICK RESULTS. CO2 (BldA) [Partial pressure ]Ordered By: Clementine Prieto on 06-25-2023 CO2 (Bld) [Partial pressure] 43.2 mm[Hg] 35-45 [facility] Culture, urineOrdered By: Timothy Caldera on 06-25-2023 Bacteria identified Cx Nom (U) Escherichia coli [facility] Bacteria identified Cx Nom (U) Escherichia coli [facility] INR in Blood by Coagulation assayOrdered By: Scott Gamboa on 06-25-2023 INR Coag (Bld) [Relative time] 1.4 {INR} [facility] Ketones Test strip Ql (U)Ord ered By: Reji Morillo on 06-25-2023 Ketones Ql (U) 5 mg/dl Negative [facility] Laboratory - CoagulationOrde red By: Scott Gamboa on 06-25-2023 aPTT Coag (Bld) [Time] 36.1 s 24.1-36.2 [facility] PT Coag (PPP) [Time] 16.9 s 11.7-14.9 [facility] Laboratory - Microbiology an d Antimicrobial susceptibilityOrdered By: Reji Morillo on 06-25-2023 Bacteria identified Cx Nom (Bld) Negative [facility] Bacteria identified Cx Nom (Bld) Staphylococcus epidermidis [facility] Bacteria identified Cx Nom (Bld) Escherichia coli [facility] Bacteria identified Cx Nom (Bld) Negative [facility] Bacteria identified Cx Nom (Bld) Staphylococcus epidermidis [facility] Bacteria identified Cx Nom (Bld) Escherichia coli [facility] Mucus LM Ql (Urine sed)Order ed By: Reji Morillo on 06-25-2023 Mucus Ql (Urine sed) 0 SEEN /hpf [facility] Nitrite Test strip Ql (U)Ord ered By: Reji Morillo on 06-25-2023 Nitrite Ql (U) Positive Negative [facility] No Panel InformationOrdered By: Clementine Prieto on 06-25-2023 Blood Gas Oxygen Percent 15.0 [facility] Blood Gas Sample Site R Radial [facility] Blood Gas Specimen Type ART [facility] Blood Gas Total CO2 22 mmol/L [facility] Blood Gas Vent Mode Not entered [facility] Oxygen Delivery Device NRB [facility] No Panel InformationOrdered By: Reji Morillo on 06-25-2023 Bacteria Detection (PCR) Staphylococcus epidermidis [facility] Bacteria Detection (PCR) Staphylococcus epidermidis [facility] Oxygen (BldA) [Partial press ure]Ordered By: Clementine Prieto on 06-25-2023 Oxygen (Bld) [Partial pressure] 67 mmHG 75-100 [facility] Protein Test strip Ql (U)Ord ered By: Reji Morillo on 06-25-2023 Protein Ql (U) 100 mg/dl Negative [facility] Squamous epithelial cells de tection in urine sediment by light microscopyOrdered By: Reji Morillo on 06-25-2023 Epithelial cells.squamous LM Ql (Urine sed) 0 SEEN /hpf 5-10 [facility] Urine blood detectionOrdered By: Reji Morillo on 06-25-2023 RBC Ql (U) 250 /ul Negative [facility] RBC Ql (U) 10-25 SEEN /hpf 0-5 [facility] Urine clarityOrdered By: Reji Morillo on 06-25-2023 Clarity (U) Cloudy Clear [facility] Urine color determinationOrd ered By: Reji Morillo on 06-25-2023 Color (U) Yellow Yellow [facility] Urine glucose detectionOrder ed By: Reji Morillo on 06-25-2023 Glucose Ql (U) Normal mg/dl Normal [facility] Urine leukocyte esterase det ection by dipstickOrdered By: Reji Morillo on 06-25-2023 Leukocyte esterase Test strip Ql (U) 500 /ul Negative [facility] Urine pHOrdered By: Reji marino on 06-25-2023 pH (U) 5.0 [pH] 5.0 - 8.0 [facility] Urine sediment bacteria coun t by microscopy (number/high power field)Ordered By: Reji Morillo on 06-25-2023 Bacteria LM.HPF (Urine sed) [#/Area] 4 /[HPF] None Seen [facility] Urine specific gravity measu rementOrdered By: Reji Morillo on 06-25-2023 Specific gravity (U) [Rel density] 1.020 1.002-1.030 [facility] Urobilinogen Auto test strip Ql (U)Ordered By: Reji Morillo on 06-25-2023 Urobilinogen Ql (U) 1 mg/dl Normal [facility] pH measurementOrdered By: Kiera Prieto on 06-25-2023 pH (Unsp spec) 7.29 [pH] 7.35-7.45 [facility] Culture, urineOrdered By: Ryder Heller on 05-04-2023 Bacteria identified Cx Nom (U) Culture exhibits no growth. [facility] Bacteria identified Cx Nom (U) Culture exhibits no growth. [facility] Absolute lymphocyte countOrd ered By: Corby Arron on 04-21-2023 Lymphocytes Auto (Unsp spec) [#/Vol] 1.98 10*3/uL 0.83-4.51 [facility] Basophil percentageOrdered B y: Corby Heller on 04-21-2023 Basophils/100 WBC (Bld) 0.8 % 0-1 [facility] Bilirubin [Mass/Vol] 0.30 mg/dL 0.20-1.00 [facility] Comment on above: For patients on eltr ombopag therapy, use of Dimension [place] TBIL is not recommended. Chloride [Moles/Vol] 105 mmol/L 98-107 [facility] Eosinophils/100 WBC (Bld) 2.8 % 0-5 [facility] Glucose [Mass/Vol] 123 mg/dL 74-106 [facility] Comment on above: Fasting Glucose resu lt from 100 to 125 mg/dL suggests IMPAIRED HOMEOSTASIS per A.D.A. criteria. Neutrophils (Bld) [#/Vol] 5.6 10*3/uL 2.0-7.7 [facility] Neutrophils/100 WBC (Bld) 65.0 % 47-70 [facility] Potassium [Moles/Vol] 4.2 mmol/L 3.5-5.1 [facility] Protein [Mass/Vol] 8.6 g/dL 6.4-8.2 [facility] Sodium [Moles/Vol] 138 mmol/L 136-145 [facility] WBC (Bld) [#/Vol] 8.6 10*3/uL 4.4-11.0 [facility] Blood erythrocytes count (nu mber/volume)Ordered By: Corby Heller on 04-21-2023 RBC (Bld) [#/Vol] 4.03 10*6/uL 4.2-5.4 [facility] Blood hemoglobin measurement (mass/volume)Ordered By: Corby Heller on 04-21-2023 Hemoglobin (Bld) [Mass/Vol] 12.1 g/dL 12.0-15.0 [facility] Blood lymphocytes/100 leukoc ytesOrdered By: Corby Heller on 04-21-2023 Lymphocytes/100 WBC (Bld) 23.1 % 19-41 [facility] Blood monocytes/100 leukocyt esOrdered By: Corby Heller on 04-21-2023 Monocytes/100 WBC (Bld) 8.1 % 0-10 [facility] Blood platelet mean volumeOr dered By: Corby Heller on 04-21-2023 Platelet mean volume (Bld) [Entitic vol] 10.0 fL 6.2-12.0 [facility] Culture, urineOrdered By: Ryder Heller on 04-21-2023 Bacteria identified Cx Nom (U) Escherichia coli [facility] Bacteria identified Cx Nom (U) Escherichia coli [facility] Determination of erythrocyte mean corpuscular volume (MCV)Ordered By: Corby Heller on 04-21-2023 MCV (RBC) [Entitic vol] 97.8 fL 81-99 [facility] Hematocrit Auto (Bld) [Volum e fraction]Ordered By: Corby Heller on 04-21-2023 Hematocrit (Bld) [Volume fraction] 39.4 % 37-47 [facility] - Chemistry and C hemistry - challengeOrdered By: Corby Heller on 04-21-2023 ALP [Catalytic activity/Vol] 78 U/L 45-117 [facility] ALT [Catalytic activity/Vol] 24 U/L 13-56 [facility] CO2 [Moles/Vol] 27.0 mmol/L 21.0-32.0 [facility] Globulin (S) [Mass/Vol] 5.4 g/dL 2.2-4.2 [facility] Urea nitrogen/Creatinine [Mass ratio] 23.9 mg/mg 10-20 [facility] - Hematology and Cell countsOrdered By: Corby Heller on 04-21-2023 Erythrocyte distribution width (RBC) [Entitic vol] 50.4 fL 35.1-43.9 [facility] Erythrocyte distribution width (RBC) [Ratio] 14.2 % 11.6-14.6 [facility] Immature granulocytes/100 WBC (Bld) 0.200 % 0.0-0.9 [facility] Comment on above: IG% - Immature Granu locytes (promyelocytes, myelocytes and metamyelocytes) > 1% indicates that a LEFT SHIFT is Present. MCH (RBC) [Entitic mass] 30.0 pg 27.0-32.0 [facility] Nucleated RBC/100 WBC (Bld) [Ratio] 0 % 0-5 [facility] MCHC Auto (RBC) [Mass/Vol]Or dered By: Corby Heller on 04-21-2023 MCHC (RBC) [Mass/Vol] 30.7 g/dL 32-36 [facility] No Panel InformationOrdered By: Corby Heller on 04-21-2023 Estimated GFR (MDRD) Amer 81 mL/min >60 [facility] Comment on above: GFR Calc Estimated GFR (MDRD) Non-Af Amer 67 mL/min >60 [facility] Comment on above: Non- GFR Calc Thyroid Stimulating Hormone (TSH) 3.47 uIU/mL 0.358-3.74 [facility] Vitamin D 25-Hydroxy 50.3 ng/mL [facility] Comment on above: Vitamin D 25(OH) Sta tus Range Deficiency <20 ng/mL (50nmol/L) Insufficiency 20 - 30 ng/mL (50 - 75 nmol/L) Sufficiency 30 - 100 ng/mL (75 - 250 nmol/L) Toxicity >100 ng/mL (>250 nmol/L) Platelets bldOrdered By: Corby Heller on 04-21-2023 Platelets (Bld) [#/Vol] 289 10*3/uL 150-450 [facility] Serum or plasma albumin sarbjit urement (mass/volume)Ordered By: Corby Heller on 04-21-2023 Albumin [Mass/Vol] 3.2 g/dL 3.2-5.0 [facility] Serum or plasma albumin/glob ulin mass ratioOrdered By: Corby Heller on 04-21-2023 Albumin/Globulin [Mass ratio] 0.6 {ratio} 0.9-2.4 [facility] Serum or plasma calcium sarbjit urement (mass/volume)Ordered By: Corby Heller on 04-21-2023 Calcium [Mass/Vol] 10.0 mg/dL 8.5-10.1 [facility] Serum or plasma creatinine m easurement (mass/volume)Ordered By: Corby Heller on 04-21-2023 Creatinine [Mass/Vol] 0.88 mg/dL 0.55-1.02 [facility] Comment on above: The validity of the calculated GFR & GFRAA in patients over 70 years has not been determined. Clinical correlation is essential. Serum or plasma urea nitroge n measurement (mass/volume)Ordered By: Corby Heller on 04-21-2023 Urea nitrogen [Mass/Vol] 21 mg/dL 7-18 [facility] Thin prep Papanicolaou smear with manual screeningOrdered By: Corby Heller on 04-21-2023 Thin prep Papanicolaou smear with manual screening 28 U/L 15-37 [facility] Thin prep Papanicolaou smear with manual screening 6 5-15 [facility] Absolute lymphocyte countOrd ered By: Dr. Heller on 03-18-2023 Lymphocytes Auto (Unsp spec) [#/Vol] 2.27 10*3/uL 0.83-4.51 [facility] Basophil percentageOrdered B y: Dr. Heller on 03-18-2023 Basophils/100 WBC (Bld) 0.8 % 0-1 [facility] Bilirubin [Mass/Vol] 0.50 mg/dL 0.20-1.00 [facility] Comment on above: For patients on eltr ombopag therapy, use of Dimension [place] TBIL is not recommended. Chloride [Moles/Vol] 105 mmol/L 98-107 [facility] Eosinophils/100 WBC (Bld) 3.1 % 0-5 [facility] Glucose [Mass/Vol] 143 mg/dL 74-106 [facility] Comment on above: Fasting Glucose resu lt greater than or equal to 126 mg/dL suggests DIABETES MELLITUS per A.D.A. criteria. Neutrophils (Bld) [#/Vol] 4.9 10*3/uL 2.0-7.7 [facility] Neutrophils/100 WBC (Bld) 59.4 % 47-70 [facility] Potassium [Moles/Vol] 4.4 mmol/L 3.5-5.1 [facility] Protein [Mass/Vol] 7.5 g/dL 6.4-8.2 [facility] Sodium [Moles/Vol] 139 mmol/L 136-145 [facility] WBC (Bld) [#/Vol] 8.3 10*3/uL 4.4-11.0 [facility] Blood erythrocytes count (nu mber/volume)Ordered By: Dr. Heller on 03-18-2023 RBC (Bld) [#/Vol] 3.82 10*6/uL 4.2-5.4 [facility] Blood hemoglobin measurement (mass/volume)Ordered By: Dr. Heller on 03-18-2023 Hemoglobin (Bld) [Mass/Vol] 11.7 g/dL 12.0-15.0 [facility] Blood lymphocytes/100 leukoc ytesOrdered By: Dr. Heller on 03-18-2023 Lymphocytes/100 WBC (Bld) 27.3 % 19-41 [facility] Blood monocytes/100 leukocyt esOrdered By: Dr. Heller on 03-18-2023 Monocytes/100 WBC (Bld) 8.8 % 0-10 [facility] Blood platelet mean volumeOr dered By: Dr. Heller on 03-18-2023 Platelet mean volume (Bld) [Entitic vol] 9.9 fL 6.2-12.0 [facility] Determination of erythrocyte mean corpuscular volume (MCV)Ordered By: Dr. Heller on 03-18-2023 MCV (RBC) [Entitic vol] 96.9 fL 81-99 [facility] Hematocrit Auto (Bld) [Volum e fraction]Ordered By: Dr. Heller on 03-18-2023 Hematocrit (Bld) [Volume fraction] 37.0 % 37-47 [facility] - Chemistry and C hemistry - challengeOrdered By: Dr. Heller on 03-18-2023 ALP [Catalytic activity/Vol] 72 U/L 45-117 [facility] ALT [Catalytic activity/Vol] 26 U/L 13-56 [facility] CO2 [Moles/Vol] 30.0 mmol/L 21.0-32.0 [facility] Globulin (S) [Mass/Vol] 4.4 g/dL 2.2-4.2 [facility] Urea nitrogen/Creatinine [Mass ratio] 29.0 mg/mg 10-20 [facility] - Hematology and Cell countsOrdered By: Dr. Heller on 03-18-2023 Erythrocyte distribution width (RBC) [Entitic vol] 51.7 fL 35.1-43.9 [facility] Erythrocyte distribution width (RBC) [Ratio] 14.6 % 11.6-14.6 [facility] Immature granulocytes/100 WBC (Bld) 0.600 % 0.0-0.9 [facility] Comment on above: IG% - Immature Granu locytes (promyelocytes, myelocytes and metamyelocytes) > 1% indicates that a LEFT SHIFT is Present. MCH (RBC) [Entitic mass] 30.6 pg 27.0-32.0 [facility] Nucleated RBC/100 WBC (Bld) [Ratio] 0 % 0-5 [facility] MCHC Auto (RBC) [Mass/Vol]Or dered By: Dr. Heller on 03-18-2023 MCHC (RBC) [Mass/Vol] 31.6 g/dL 32-36 [facility] No Panel InformationOrdered By: Dr. Heller on 03-18-2023 Estimated GFR (MDRD) Amer 91 mL/min >60 [facility] Comment on above: GFR Calc Estimated GFR (MDRD) Non-Af Amer 75 mL/min >60 [facility] Comment on above: Non- GFR Calc Platelets bldOrdered By: Dr. Heller on 03-18-2023 Platelets (Bld) [#/Vol] 221 10*3/uL 150-450 [facility] Serum or plasma albumin sarbjit urement (mass/volume)Ordered By: Dr. Heller on 03-18-2023 Albumin [Mass/Vol] 3.1 g/dL 3.2-5.0 [facility] Serum or plasma albumin/glob ulin mass ratioOrdered By: Dr. Heller on 03-18-2023 Albumin/Globulin [Mass ratio] 0.7 {ratio} 0.9-2.4 [facility] Serum or plasma calcium sarbjit urement (mass/volume)Ordered By: Dr. Heller on 03-18-2023 Calcium [Mass/Vol] 9.2 mg/dL 8.5-10.1 [facility] Serum or plasma creatinine m easurement (mass/volume)Ordered By: Dr. Heller on 03-18-2023 Creatinine [Mass/Vol] 0.79 mg/dL 0.55-1.02 [facility] Comment on above: The validity of the calculated GFR & GFRAA in patients over 70 years has not been determined. Clinical correlation is essential. Serum or plasma urea nitroge n measurement (mass/volume)Ordered By: Dr. Heller on 03-18-2023 Urea nitrogen [Mass/Vol] 23 mg/dL 7-18 [facility] Thin prep Papanicolaou smear with manual screeningOrdered By: Dr. Heller on 03-18-2023 Thin prep Papanicolaou smear with manual screening 33 U/L 15- [facility] Thin prep Papanicolaou smear with manual screening 4 5- [facility] Absolute lymphocyte countOrd ered By: Dr. Heller on 01-21-2023 Lymphocytes Auto (Unsp spec) [#/Vol] 1.96 10*3/uL 0.83-4.51 [facility] Basophil percentageOrdered B y: Dr. Heller on 01-21-2023 Basophils/100 WBC (Bld) 0.9 % 0-1 [facility] Bilirubin [Mass/Vol] 0.30 mg/dL 0.20-1.00 [facility] Comment on above: For patients on eltr ombopag therapy, use of Dimension [place] TBIL is not recommended. Chloride [Moles/Vol] 104 mmol/L 98-107 [facility] Eosinophils/100 WBC (Bld) 2.9 % 0-5 [facility] Glucose [Mass/Vol] 220 mg/dL 74-106 [facility] Comment on above: Glucose result great er than or equal to 200 mg/dLsuggests DIABETES MELLITUS per A.D.A. criteria. Neutrophils (Bld) [#/Vol] 5.1 10*3/uL 2.0-7.7 [facility] Neutrophils/100 WBC (Bld) 63.1 % 47-70 [facility] Potassium [Moles/Vol] 3.8 mmol/L 3.5-5.1 [facility] Protein [Mass/Vol] 7.7 g/dL 6.4-8.2 [facility] Sodium [Moles/Vol] 137 mmol/L 136-145 [facility] WBC (Bld) [#/Vol] 8.0 10*3/uL 4.4-11.0 [facility] Blood erythrocytes count (nu mber/volume)Ordered By: Dr. Heller on 01-21-2023 RBC (Bld) [#/Vol] 3.99 10*6/uL 4.2-5.4 [facility] Blood hemoglobin measurement (mass/volume)Ordered By: Dr. Heller on 01-21-2023 Hemoglobin (Bld) [Mass/Vol] 12.1 g/dL 12.0-15.0 [facility] Blood lymphocytes/100 leukoc ytesOrdered By: Dr. Heller on 01-21-2023 Lymphocytes/100 WBC (Bld) 24.5 % 19-41 [facility] Blood monocytes/100 leukocyt esOrdered By: Dr. Heller on 01-21-2023 Monocytes/100 WBC (Bld) 7.6 % 0-10 [facility] Blood platelet mean volumeOr dered By: Dr. Heller on 01-21-2023 Platelet mean volume (Bld) [Entitic vol] 9.5 fL 6.2-12.0 [facility] Determination of erythrocyte mean corpuscular volume (MCV)Ordered By: Dr. Heller on 01-21-2023 MCV (RBC) [Entitic vol] 96.2 fL 81-99 [facility] Hematocrit Auto (Bld) [Volum e fraction]Ordered By: Dr. Heller on 01-21-2023 Hematocrit (Bld) [Volume fraction] 38.4 % 37-47 [facility] - Chemistry and C hemistry - challengeOrdered By: Dr. Heller on 01-21-2023 ALP [Catalytic activity/Vol] 73 U/L 45-117 [facility] ALT [Catalytic activity/Vol] 22 U/L 13-56 [facility] CO2 [Moles/Vol] 28.0 mmol/L 21.0-32.0 [facility] Globulin (S) [Mass/Vol] 4.8 g/dL 2.2-4.2 [facility] Urea nitrogen/Creatinine [Mass ratio] 18.0 mg/mg 10-20 [facility] - Hematology and Cell countsOrdered By: Dr. Heller on 01-21-2023 Erythrocyte distribution width (RBC) [Entitic vol] 51.6 fL 35.1-43.9 [facility] Erythrocyte distribution width (RBC) [Ratio] 14.6 % 11.6-14.6 [facility] Immature granulocytes/100 WBC (Bld) 1.000 % 0.0-0.9 [facility] Comment on above: IG% - Immature Granu locytes (promyelocytes, myelocytes and metamyelocytes) > 1% indicates that a LEFT SHIFT is Present. MCH (RBC) [Entitic mass] 30.3 pg 27.0-32.0 [facility] Nucleated RBC/100 WBC (Bld) [Ratio] 0 % 0-5 [facility] MCHC Auto (RBC) [Mass/Vol]Or dered By: Dr. Heller on 01-21-2023 MCHC (RBC) [Mass/Vol] 31.5 g/dL 32-36 [facility] No Panel InformationOrdered By: Dr. Heller on 01-21-2023 Estimated GFR (MDRD) Amer 75 mL/min >60 [facility] Comment on above: GFR Calc Estimated GFR (MDRD) Non-Af Amer 62 mL/min >60 [facility] Comment on above: Non- GFR Calc Thyroid Stimulating Hormone (TSH) 3.09 uIU/mL 0.358-3.74 [facility] Vitamin D 25-Hydroxy 48.3 ng/mL [facility] Comment on above: Vitamin D 25(OH) Sta tus Range Deficiency <20 ng/mL (50nmol/L) Insufficiency 20 - 30 ng/mL (50 - 75 nmol/L) Sufficiency 30 - 100 ng/mL (75 - 250 nmol/L) Toxicity >100 ng/mL (>250 nmol/L) Platelets bldOrdered By: Dr. Heller on 01-21-2023 Platelets (Bld) [#/Vol] 257 10*3/uL 150-450 [facility] Serum or plasma albumin sarbjit urement (mass/volume)Ordered By: Dr. Heller on 01-21-2023 Albumin [Mass/Vol] 2.9 g/dL 3.2-5.0 [facility] Serum or plasma albumin/glob ulin mass ratioOrdered By: Dr. Heller on 01-21-2023 Albumin/Globulin [Mass ratio] 0.6 {ratio} 0.9-2.4 [facility] Serum or plasma calcium sarbjit urement (mass/volume)Ordered By: Dr. Heller on 01-21-2023 Calcium [Mass/Vol] 9.3 mg/dL 8.5-10.1 [facility] Serum or plasma creatinine m easurement (mass/volume)Ordered By: Dr. Heller on 01-21-2023 Creatinine [Mass/Vol] 0.94 mg/dL 0.55-1.02 [facility] Comment on above: The validity of the calculated GFR & GFRAA in patients over 70 years has not been determined. Clinical correlation is essential. Serum or plasma urea nitroge n measurement (mass/volume)Ordered By: Dr. Heller on 01-21-2023 Urea nitrogen [Mass/Vol] 17 mg/dL 7-18 [facility] Thin prep Papanicolaou smear with manual screeningOrdered By: Dr. Heller on 01-21-2023 Thin prep Papanicolaou smear with manual screening 30 U/L 15-37 [facility] Thin prep Papanicolaou smear with manual screening 5 5-15 [facility] Absolute lymphocyte countOrd ered By: Dr. Heller on 12-17-2022 Lymphocytes Auto (Unsp spec) [#/Vol] 2.09 10*3/uL 0.83-4.51 [facility] Basophil percentageOrdered B y: Dr. Heller on 12-17-2022 Basophils/100 WBC (Bld) 0.8 % 0-1 [facility] Bilirubin [Mass/Vol] 0.50 mg/dL 0.20-1.00 [facility] Comment on above: For patients on eltr ombopag therapy, use of Dimension [place] TBIL is not recommended. Chloride [Moles/Vol] 103 mmol/L 98-107 [facility] Eosinophils/100 WBC (Bld) 3.4 % 0-5 [facility] Glucose [Mass/Vol] 135 mg/dL 74-106 [facility] Comment on above: Fasting Glucose resu lt greater than or equal to 126 mg/dL suggests DIABETES MELLITUS per A.D.A. criteria. Neutrophils (Bld) [#/Vol] 5.8 10*3/uL 2.0-7.7 [facility] Neutrophils/100 WBC (Bld) 64.6 % 47-70 [facility] Potassium [Moles/Vol] 4.0 mmol/L 3.5-5.1 [facility] Protein [Mass/Vol] 8.4 g/dL 6.4-8.2 [facility] Sodium [Moles/Vol] 139 mmol/L 136-145 [facility] WBC (Bld) [#/Vol] 9.0 10*3/uL 4.4-11.0 [facility] Blood erythrocytes count (nu mber/volume)Ordered By: Dr. Heller on 12-17-2022 RBC (Bld) [#/Vol] 4.13 10*6/uL 4.2-5.4 [facility] Blood hemoglobin measurement (mass/volume)Ordered By: Dr. Heller on 12-17-2022 Hemoglobin (Bld) [Mass/Vol] 12.6 g/dL 12.0-15.0 [facility] Blood lymphocytes/100 leukoc ytesOrdered By: Dr. Heller on 12-17-2022 Lymphocytes/100 WBC (Bld) 23.2 % 19-41 [facility] Blood monocytes/100 leukocyt esOrdered By: Dr. Heller on 12-17-2022 Monocytes/100 WBC (Bld) 7.6 % 0-10 [facility] Blood platelet mean volumeOr dered By: Dr. Heller on 12-17-2022 Platelet mean volume (Bld) [Entitic vol] 9.7 fL 6.2-12.0 [facility] Determination of erythrocyte mean corpuscular volume (MCV)Ordered By: Dr. Heller on 12-17-2022 MCV (RBC) [Entitic vol] 95.6 fL 81-99 [facility] Hematocrit Auto (Bld) [Volum e fraction]Ordered By: Dr. Heller on 12-17-2022 Hematocrit (Bld) [Volume fraction] 39.5 % 37-47 [facility] - Chemistry and C hemistry - challengeOrdered By: Dr. Heller on 12-17-2022 ALP [Catalytic activity/Vol] 71 U/L 45-117 [facility] ALT [Catalytic activity/Vol] 22 U/L 13-56 [facility] CO2 [Moles/Vol] 26.0 mmol/L 21.0-32.0 [facility] Globulin (S) [Mass/Vol] 5.1 g/dL 2.2-4.2 [facility] Urea nitrogen/Creatinine [Mass ratio] 25.5 mg/mg 10-20 [facility] - Hematology and Cell countsOrdered By: Dr. Heller on 12-17-2022 Erythrocyte distribution width (RBC) [Entitic vol] 48.5 fL 35.1-43.9 [facility] Erythrocyte distribution width (RBC) [Ratio] 13.9 % 11.6-14.6 [facility] Immature granulocytes/100 WBC (Bld) 0.400 % 0.0-0.9 [facility] Comment on above: IG% - Immature Granu locytes (promyelocytes, myelocytes and metamyelocytes) > 1% indicates that a LEFT SHIFT is Present. MCH (RBC) [Entitic mass] 30.5 pg 27.0-32.0 [facility] Nucleated RBC/100 WBC (Bld) [Ratio] 0 % 0-5 [facility] MCHC Auto (RBC) [Mass/Vol]Or dered By: Dr. Heller on 12-17-2022 MCHC (RBC) [Mass/Vol] 31.9 g/dL 32-36 [facility] No Panel InformationOrdered By: Dr. Heller on 12-17-2022 Estimated GFR (MDRD) Amer 79 mL/min >60 [facility] Comment on above: GFR Calc Estimated GFR (MDRD) Non-Af Amer 65 mL/min >60 [facility] Comment on above: Non- GFR Calc Thyroid Stimulating Hormone (TSH) 3.57 uIU/mL 0.358-3.74 [facility] Vitamin D 25-Hydroxy 47.7 ng/mL [facility] Comment on above: Vitamin D 25(OH) Sta tus Range Deficiency <20 ng/mL (50nmol/L) Insufficiency 20 - 30 ng/mL (50 - 75 nmol/L) Sufficiency 30 - 100 ng/mL (75 - 250 nmol/L) Toxicity >100 ng/mL (>250 nmol/L) Platelets bldOrdered By: Dr. Heller on 12-17-2022 Platelets (Bld) [#/Vol] 239 10*3/uL 150-450 [facility] Serum or plasma albumin sarbjit urement (mass/volume)Ordered By: Dr. Heller on 12-17-2022 Albumin [Mass/Vol] 3.3 g/dL 3.2-5.0 [facility] Serum or plasma albumin/glob ulin mass ratioOrdered By: Dr. Heller on 12-17-2022 Albumin/Globulin [Mass ratio] 0.6 {ratio} 0.9-2.4 [facility] Serum or plasma calcium sarbjit urement (mass/volume)Ordered By: Dr. Heller on 12-17-2022 Calcium [Mass/Vol] 10.6 mg/dL 8.5-10.1 [facility] Serum or plasma creatinine m easurement (mass/volume)Ordered By: Dr. Heller on 12-17-2022 Creatinine [Mass/Vol] 0.90 mg/dL 0.55-1.02 [facility] Comment on above: The validity of the calculated GFR & GFRAA in patients over 70 years has not been determined. Clinical correlation is essential. Serum or plasma urea nitroge n measurement (mass/volume)Ordered By: Dr. Heller on 12-17-2022 Urea nitrogen [Mass/Vol] 23 mg/dL 7-18 [facility] Thin prep Papanicolaou smear with manual screeningOrdered By: Dr. Heller on 12-17-2022 Thin prep Papanicolaou smear with manual screening 25 U/L 15-37 [facility] Thin prep Papanicolaou smear with manual screening 10 5-15 [facility] CNOVon 08-04-2022 CNOV Office Visit (VASSWS ) EDUAR CABRERA ([id number]) 1950 F Date Time Provider Department 08/04/22 [...] Visit Diagnosis:Venous (peripheral) insufficiency [I87.2] Order(s):COMPRESSION STOCKINGS [[id number]] Order #: [id number] Prescriptions as of 08/17/2022 - rOPINIRole (REQUIP) 0.5 mg tablet Take by mouth. TAKING 2MG - benzonatate (TESSALON PERLE) 100 mg capsule - hqigrnx-qysc-igplq-ore g-capryl 100 mg-150 mg- 50 mg-150 mg cap Take 500 mg by mouth. - COQ10, UBIQUINOL, ORAL Take 50 mg by mouth once daily. - mbrxvts-nsvgfdsbc-hbof min D3 500 mg-5 mcg (200 unit) [...] y. - GLUCOSAM HCL/MSM/CHONDRO FRANK A (GLUCOSAMINE [id number] ORAL) Take by mouth. 1200 mg daily - Gelatin 650 mg capsule Take 1,300 mg by mouth once daily. - Lovastatin 40 mg tablet Take 40 mg by mouth daily at bedtime. - LEVOTHYROXINE SODIUM (LEVOTHYROXINE ORAL) Take by mouth. - metFORMIN 500 mg tablet Take 500 mg by mouth three times daily. - fluticasone 50 mcg/actuation nasal spray Use 1 [place] in each nostril once daily. - olmesartan [...] Status:Closed by GRISEL VILLANUEVA on 08/17/22 Normal [facility] Absolute lymphocyte counton 07-27-2022 Lymphocytes Auto (Unsp spec) [#/Vol] 2.04 10*3/uL 0.83-4.51 [facility] Work Phone: Basophil percentageon 2021 Basophils/100 WBC (Bld) 0.4 % 0-1 [facility] Work Phone: Eosinophils/100 WBC (Bld) 1.9 % 0-5 [facility] Work Phone: Neutrophils (Bld) [#/Vol] 8.5 10*3/uL 2.0-7.7 [facility] Work Phone: Neutrophils/100 WBC (Bld) 71.6 % 47-70 [facility] Work Phone: WBC (Bld) [#/Vol] 11.9 10*3/uL 4.4-11.0 [facility] Work Phone: Blood erythrocytes count (nu mber/volume)on 07-27-2022 RBC (Bld) [#/Vol] 3.78 10*6/uL 4.2-5.4 [facility] Work Phone: Blood hemoglobin measurement (mass/volume)on 07-27-2022 Hemoglobin (Bld) [Mass/Vol] 11.7 g/dL 12.0-15.0 [facility] Work Phone: Blood lymphocytes/100 leukoc yteson 07-27-2022 Lymphocytes/100 WBC (Bld) 17.2 % 19-41 [facility] Work Phone: Blood monocytes/100 leukocyt eson 07-27-2022 Monocytes/100 WBC (Bld) 8.1 % 0-10 [facility] Work Phone: Blood platelet adequacy dete ction by light microscopyon 07-27-2022 Platelets LM Ql (Bld) ADEQUATE ADEQ [facility] Work Phone: Blood platelet mean volumeon 07-27-2022 Platelet mean volume (Bld) [Entitic vol] 10.8 fL 6.2-12.0 [facility] Work Phone: Determination of erythrocyte mean corpuscular volume (MCV)on 07-27-2022 MCV (RBC) [Entitic vol] 95.8 fL 81-99 [facility] Work Phone: [phone] Hematocrit Auto (Bld) [Volum e fraction]on 07-27-2022 Hematocrit (Bld) [Volume fraction] 36.2 % 37-47 [facility] Work Phone: [phone] Laboratory - Hematology and Cell countson 07-27-2022 Erythrocyte distribution width (RBC) [Entitic vol] 50.7 fL 35.1-43.9 [facility] Work Phone: [phone] Erythrocyte distribution width (RBC) [Ratio] 14.6 % 11.6-14.6 [facility] Work Phone: [phone] Immature granulocytes/100 WBC (Bld) 0.800 % 0.0-0.9 [facility] Work Phone: [phone] Comment on above: IG% - Immature Granu locytes (promyelocytes, myelocytes and metamyelocytes) > 1% indicates that a LEFT SHIFT is Present. MCH (RBC) [Entitic mass] 31.0 pg 27.0-32.0 [facility] Work Phone: [phone] Nucleated RBC/100 WBC (Bld) [Ratio] 0 % 0-5 [facility] Work Phone: [phone] MCHC Auto (RBC) [Mass/Vol]on 07-27-2022 MCHC (RBC) [Mass/Vol] 32.3 g/dL 32-36 [facility] Work Phone: [phone] Panel Informationon 07-27 Vitamin D 25-Hydroxy 46.8 ng/mL [facility] Work Phone: [phone] Comment on above: Vitamin D 25(OH) Sta tus Range Deficiency <20 ng/mL (50nmol/L) Insufficiency 20 - 30 ng/mL (50 - 75 nmol/L) Sufficiency 30 - 100 ng/mL (75 - 250 nmol/L) Toxicity >100 ng/mL (>250 nmol/L) Platelets bldon 10-31-2022 Platelets (Bld) [#/Vol] 229 10*3/uL 150-450 [facility] Work Phone: RBC morphologyon 07-27-2022 RBC morphology finding Nom (Bld) NORM C+C NORMAL NORM C&C [facility] Work Phone: Absolute lymphocyte counton 04-07-2022 Lymphocytes Auto (Unsp spec) [#/Vol] 2.26 10*3/uL 0.83-4.51 [facility] Work Phone: Basophil percentageon 2021 Basophils/100 WBC (Bld) 0.7 % 0-1 [facility] Work Phone: Bilirubin [Mass/Vol] 0.30 mg/dL 0.20-1.00 [facility] Work Phone: Comment on above: For patients on eltr ombopag therapy, use of Dimension [place] TBIL is not recommended. Chloride [Moles/Vol] 102 mmol/L 98-107 [facility] Work Phone: Eosinophils/100 WBC (Bld) 1.8 % 0-5 [facility] Work Phone: Glucose [Mass/Vol] 97 mg/dL 74-106 [facility] Work Phone: Neutrophils (Bld) [#/Vol] 6.1 10*3/uL 2.0-7.7 [facility] Work Phone: Neutrophils/100 WBC (Bld) 64.9 % 47-70 [facility] Work Phone: Potassium [Moles/Vol] 4.7 mmol/L 3.5-5.1 [facility] Work Phone: Protein [Mass/Vol] 7.8 g/dL 6.4-8.2 [facility] Work Phone: Sodium [Moles/Vol] 138 mmol/L 136-145 [facility] Work Phone: WBC (Bld) [#/Vol] 9.5 10*3/uL 4.4-11.0 [facility]: Blood erythrocytes count (nu mber/volume)on 04-07-2022 RBC (Bld) [#/Vol] 3.89 10*6/uL 4.2-5.4 [facility] Blood hemoglobin measurement (mass/volume)on 04-07-2022 Hemoglobin (Bld) [Mass/Vol] 11.6 g/dL 12.0-15.0 [facility] Work Phone: Blood lymphocytes/100 leukoc yteson 04-07-2022 Lymphocytes/100 WBC (Bld) 23.9 % 19-41 [facility] Work Phone: Blood monocytes/100 leukocyt eson 04-07-2022 Monocytes/100 WBC (Bld) 7.7 % 0-10 [facility] Work Phone: Blood platelet mean volumeon 04-07-2022 Platelet mean volume (Bld) [Entitic vol] 9.6 fL 6.2-12.0 [facility] Work Phone: Determination of erythrocyte mean corpuscular volume (MCV)on 04-07-2022 MCV (RBC) [Entitic vol] 93.8 fL 81-99 [facility] Work Phone: Hematocrit Auto (Bld) [Volum e fraction]on 04-07-2022 Hematocrit (Bld) [Volume fraction] 36.5 % 37-47 [facility] Work Phone: Laboratory - Chemistry and C hemistry - challengeon 04-07-2022 ALP [Catalytic activity/Vol] 68 U/L 45-117 [facility] Work Phone: ALT [Catalytic activity/Vol] 25 U/L 13-56 [facility] Work Phone: [phone] CO2 [Moles/Vol] 29.0 mmol/L 21.0-32.0 [facility] Work Phone: Globulin (S) [Mass/Vol] 4.6 g/dL 2.2-4.2 [facility] Work Phone: [phone] Urea nitrogen/Creatinine [Mass ratio] 26.5 mg/mg 10-20 [facility] Work Phone: [phone] Laboratory - Hematology and Cell countson 04-07-2022 Erythrocyte distribution width (RBC) [Entitic vol] 51.9 fL 35.1-43.9 [facility] Work Phone: [phone] Erythrocyte distribution width (RBC) [Ratio] 15.3 % 11.6-14.6 [facility] Work Phone: [phone] Immature granulocytes/100 WBC (Bld) 1.000 % 0.0-0.9 [facility] Work Phone: [phone] Comment on above: IG% - Immature Granu locytes (promyelocytes, myelocytes and metamyelocytes) > 1% indicates that a LEFT SHIFT is Present. MCH (RBC) [Entitic mass] 29.8 pg 27.0-32.0 [facility] Work Phone: [phone] Nucleated RBC/100 WBC (Bld) [Ratio] 0 % 0-5 [facility] Work Phone: [phone] MCHC Auto (RBC) [Mass/Vol]on 04-07-2022 MCHC (RBC) [Mass/Vol] 31.8 g/dL 32-36 [facility] Work Phone: No Panel Informationon 04-07 Estimated GFR (MDRD) Amer 68 mL/min >60 [facility] Work Phone: [phone] Comment on above: GFR Calc Estimated GFR (MDRD) Non-Af Amer 56 mL/min >60 [facility] Work Phone: [phone] Comment on above: Non- GFR Calc Thyroid Stimulating Hormone (TSH) 2.61 uIU/mL 0.358-3.74 [facility] Work Phone: [phone] Vitamin D 25-Hydroxy 37.1 ng/mL [facility] Work Phone: [phone] Comment on above: Vitamin D 25(OH) Sta tus Range Deficiency <20 ng/mL (50nmol/L) Insufficiency 20 - 30 ng/mL (50 - 75 nmol/L) Sufficiency 30 - 100 ng/mL (75 - 250 nmol/L) Toxicity >100 ng/mL (>250 nmol/L) Platelets bldon 04-07-2022 Platelets (Bld) [#/Vol] 252 10*3/uL 150-450 [facility] Work Phone: Serum or plasma albumin sarbjit urement (mass/volume)on 04-07-2022 Albumin [Mass/Vol] 3.2 g/dL 3.2-5.0 [facility] Work Phone: Serum or plasma albumin/glob ulin mass ratioon 04-07-2022 Albumin/Globulin [Mass ratio] 0.7 {ratio} 0.9-2.4 [facility] Work Phone: Serum or plasma calcium sarbjit urement (mass/volume)on 04-07-2022 Calcium [Mass/Vol] 10.0 mg/dL 8.5-10.1 [facility] Work Phone: Serum or plasma creatinine m easurement (mass/volume)on 04-07-2022 Creatinine [Mass/Vol] 1.02 mg/dL 0.55-1.02 [facility] Work Phone: Comment on above: The validity of the calculated GFR & GFRAA in patients over 70 years has not been determined. Clinical correlation is essential. Serum or plasma urea nitroge n measurement (mass/volume)on 04-07-2022 Urea nitrogen [Mass/Vol] 27 mg/dL 7-18 [facility] Work Phone: Thin prep Papanicolaou smear with manual screeningon 04-07-2022 Thin prep Papanicolaou smear with manual screening 26 U/L 15-37 [facility] Work Phone: Thin prep Papanicolaou smear with manual screening 7 5-15 [facility] Work Phone: Absolute lymphocyte counton 01-20-2022 Lymphocytes Auto (Unsp spec) [#/Vol] 2.53 10*3/uL 0.83-4.51 [facility] Work Phone: Basophil percentageon 2021 Basophils/100 WBC (Bld) 0.5 % 0-1 [facility] Work Phone: Bilirubin [Mass/Vol] 0.30 mg/dL 0.20-1.00 [facility] Work Phone: Comment on above: For patients on eltr ombopag therapy, use of Dimension [place] TBIL is not recommended. Chloride [Moles/Vol] 102 mmol/L 98-107 [facility] Work Phone: Eosinophils/100 WBC (Bld) 2.2 % 0-5 [facility] Work Phone: Glucose [Mass/Vol] 100 mg/dL 74-106 [facility] Work Phone: Comment on above: Fasting Glucose resu lt from 100 to 125 mg/dL suggests IMPAIRED HOMEOSTASIS per A.D.A. criteria. Neutrophils (Bld) [#/Vol] 6.9 10*3/uL 2.0-7.7 [facility] Work Phone: Neutrophils/100 WBC (Bld) 64.1 % 47-70 [facility] Work Phone: Potassium [Moles/Vol] 4.4 mmol/L 3.5-5.1 [facility] Work Phone: Protein [Mass/Vol] 8.0 g/dL 6.4-8.2 [facility] Work Phone: Sodium [Moles/Vol] 137 mmol/L 136-145 [facility] Work Phone: WBC (Bld) [#/Vol] 10.7 10*3/uL 4.4-11.0 [facility] Work Phone: Blood erythrocytes count (nu mber/volume)on 01-20-2022 RBC (Bld) [#/Vol] 3.76 10*6/uL 4.2-5.4 [facility] Work Phone: [phone] Blood hemoglobin measurement (mass/volume)on 01-20-2022 Hemoglobin (Bld) [Mass/Vol] 11.4 g/dL 12.0-15.0 [facility] Work Phone: Blood lymphocytes/100 leukoc yteson 01-20-2022 Lymphocytes/100 WBC (Bld) 23.7 % 19-41 [facility] Work Phone: [phone] Blood monocytes/100 leukocyt eson 01-20-2022 Monocytes/100 WBC (Bld) 8.9 % 0-10 [facility] Work Phone: [phone] Blood platelet mean volumeon 01-20-2022 Platelet mean volume (Bld) [Entitic vol] 9.4 fL 6.2-12.0 [facility] Work Phone: [phone] Determination of erythrocyte mean corpuscular volume (MCV)on 01-20-2022 MCV (RBC) [Entitic vol] 93.9 fL 81-99 [facility] Work Phone: [phone] Hematocrit Auto (Bld) [Volum e fraction]on 01-20-2022 Hematocrit (Bld) [Volume fraction] 35.3 % 37-47 [facility] Work Phone: Laboratory - Chemistry and C hemistry - challengeon 01-20-2022 ALP [Catalytic activity/Vol] 59 U/L 45-117 [facility] Work Phone: [phone] ALT [Catalytic activity/Vol] 29 U/L 13-56 [facility] Work Phone: [phone] CO2 [Moles/Vol] 29.0 mmol/L 21.0-32.0 [facility] Work Phone: Globulin (S) [Mass/Vol] 4.6 g/dL 2.2-4.2 [facility] Work Phone: [phone] Urea nitrogen/Creatinine [Mass ratio] 34.0 mg/mg 10-20 [facility] Work Phone: Laboratory - Hematology and Cell countson 01-20-2022 Erythrocyte distribution width (RBC) [Entitic vol] 48.6 fL 35.1-43.9 [facility] Work Phone: [phone] Erythrocyte distribution width (RBC) [Ratio] 14.1 % 11.6-14.6 [facility] Work Phone: [phone] Immature granulocytes/100 WBC (Bld) 0.600 % 0.0-0.9 [facility] Work Phone: [phone] Comment on above: IG% - Immature Granu locytes (promyelocytes, myelocytes and metamyelocytes) > 1% indicates that a LEFT SHIFT is Present. MCH (RBC) [Entitic mass] 30.3 pg 27.0-32.0 [facility] Work Phone: [phone] Nucleated RBC/100 WBC (Bld) [Ratio] 0 % 0-5 [facility] Work Phone: [phone] MCHC Auto (RBC) [Mass/Vol]on 01-20-2022 MCHC (RBC) [Mass/Vol] 32.3 g/dL 32-36 [facility] Work Phone: [phone] No Panel Informationon 01-20 Estimated GFR (MDRD) Amer 95 mL/min >60 [facility] Work Phone: Comment on above: GFR Calc Estimated GFR (MDRD) Non-Af Amer 79 mL/min >60 [facility] Work Phone: Comment on above: Non- GFR Calc Thyroid Stimulating Hormone (TSH) 2.53 uIU/mL 0.358-3.74 [facility] Work Phone: [phone] Vitamin D 25-Hydroxy 46.5 ng/mL [facility] Work Phone: [phone] Comment on above: Vitamin D 25(OH) Sta tus Range Deficiency <20 ng/mL (50nmol/L) Insufficiency 20 - 30 ng/mL (50 - 75 nmol/L) Sufficiency 30 - 100 ng/mL (75 - 250 nmol/L) Toxicity >100 ng/mL (>250 nmol/L) Platelets bldon 01-20-2022 Platelets (Bld) [#/Vol] 282 10*3/uL 150-450 [facility] Work Phone: [phone] Serum or plasma albumin sarbjit urement (mass/volume)on 01-20-2022 Albumin [Mass/Vol] 3.4 g/dL 3.2-5.0 [facility] Work Phone: [phone] Serum or plasma albumin/glob ulin mass ratioon 01-20-2022 Albumin/Globulin [Mass ratio] 0.7 {ratio} 0.9-2.4 [facility] Work Phone: [phone] Serum or plasma calcium sarbjit urement (mass/volume)on 01-20-2022 Calcium [Mass/Vol] 9.6 mg/dL 8.5-10.1 [facility] Work Phone: [phone] Serum or plasma creatinine m easurement (mass/volume)on 01-20-2022 Creatinine [Mass/Vol] 0.76 mg/dL 0.55-1.02 [facility] Work Phone: [phone] Comment on above: The validity of the calculated GFR & GFRAA in patients over 70 years has not been determined. Clinical correlation is essential. Serum or plasma urea nitroge n measurement (mass/volume)on 01-20-2022 Urea nitrogen [Mass/Vol] 26 mg/dL 7-18 [facility] Work Phone: [phone] Thin prep Papanicolaou smear with manual screeningon 01-20-2022 Thin prep Papanicolaou smear with manual screening 28 U/L 15-37 [facility] Work Phone: [phone] Thin prep Papanicolaou smear with manual screening 6 5-15 [facility] Work Phone: [phone] Absolute lymphocyte counton 10-21-2021 Lymphocytes Auto (Unsp spec) [#/Vol] 2.34 10*3/uL 0.83-4.51 [facility] Work Phone: [phone] Basophil percentageon 2021 Basophils/100 WBC (Bld) 0.6 % 0-1 [facility] Work Phone: [phone] Bilirubin [Mass/Vol] 0.40 mg/dL 0.20-1.00 [facility] Work Phone: Comment on above: For patients on eltr ombopag therapy, use of Dimension [place] TBIL is not recommended. Chloride [Moles/Vol] 101 mmol/L 98-107 [facility] Work Phone: Eosinophils/100 WBC (Bld) 1.1 % 0-5 [facility] Work Phone: Glucose [Mass/Vol] 173 mg/dL 74-106 [facility] Work Phone: Comment on above: Fasting Glucose resu lt greater than or equal to 126 mg/dL suggests DIABETES MELLITUS per A.D.A. criteria. Neutrophils (Bld) [#/Vol] 5.5 10*3/uL 2.0-7.7 [facility] Work Phone: Neutrophils/100 WBC (Bld) 62.8 % 47-70 [facility] Work Phone: Potassium [Moles/Vol] 4.2 mmol/L 3.5-5.1 [facility] Work Phone: Protein [Mass/Vol] 7.8 g/dL 6.4-8.2 [facility] Work Phone: Sodium [Moles/Vol] 138 mmol/L 136-145 [facility] Work Phone: WBC (Bld) [#/Vol] 8.7 10*3/uL 4.4-11.0 [facility] Work Phone: Blood erythrocytes count (nu mber/volume)on 10-21-2021 RBC (Bld) [#/Vol] 4.20 10*6/uL 4.2-5.4 [facility] Work Phone: Blood hemoglobin measurement (mass/volume)on 10-21-2021 Hemoglobin (Bld) [Mass/Vol] 12.3 g/dL 12.0-15.0 [facility] Work Phone: Blood lymphocytes/100 leukoc yteson 10-21-2021 Lymphocytes/100 WBC (Bld) 26.8 % 19-41 [facility] Work Phone: Blood monocytes/100 leukocyt eson 10-21-2021 Monocytes/100 WBC (Bld) 8.0 % 0-10 [facility] Work Phone: Blood platelet mean volumeon 10-21-2021 Platelet mean volume (Bld) [Entitic vol] 9.9 fL 6.2-12.0 [facility] Work Phone: Determination of erythrocyte mean corpuscular volume (MCV)on 10-21-2021 MCV (RBC) [Entitic vol] 91.9 fL 81-99 [facility] Work Phone: Hematocrit Auto (Bld) [Volum e fraction]on 10-21-2021 Hematocrit (Bld) [Volume fraction] 38.6 % 37-47 [facility] Work Phone: Laboratory - Chemistry and C hemistry - challengeon 10-21-2021 ALP [Catalytic activity/Vol] 68 U/L 45-117 [facility] Work Phone: ALT [Catalytic activity/Vol] 28 U/L 13-56 [facility] Work Phone: CO2 [Moles/Vol] 29.0 mmol/L 21.0-32.0 [facility] Work Phone: [phone] Globulin (S) [Mass/Vol] 4.6 g/dL 2.2-4.2 [facility] Work Phone: Urea nitrogen/Creatinine [Mass ratio] 19.0 mg/mg 10-20 [facility] Work Phone: Laboratory - Hematology and Cell countson 10-21-2021 Erythrocyte distribution width (RBC) [Entitic vol] 57.0 fL 35.1-43.9 [facility] Work Phone: Erythrocyte distribution width (RBC) [Ratio] 16.8 % 11.6-14.6 [facility] Work Phone: Immature granulocytes/100 WBC (Bld) 0.700 % 0.0-0.9 [facility] Work Phone: Comment on above: IG% - Immature Granu locytes (promyelocytes, myelocytes and metamyelocytes) > 1% indicates that a LEFT SHIFT is Present. MCH (RBC) [Entitic mass] 29.3 pg 27.0-32.0 [facility] Work Phone: Nucleated RBC/100 WBC (Bld) [Ratio] 0 % 0-5 [facility] Work Phone: [phone] MCHC Auto (RBC) [Mass/Vol]on 10-21-2021 MCHC (RBC) [Mass/Vol] 31.9 g/dL 32-36 [facility] Work Phone: No Panel Informationon 10-21 Estimated GFR (MDRD) Amer 66 mL/min >60 [facility] Work Phone: Comment on above: GFR Calc Estimated GFR (MDRD) Non-Af Amer 55 mL/min >60 [facility] Work Phone: Comment on above: Non- GFR Calc Thyroid Stimulating Hormone (TSH) 2.44 uIU/mL 0.358-3.74 [facility] Work Phone: Vitamin D 25-Hydroxy 50.1 ng/mL [facility] Work Phone: Comment on above: Vitamin D 25(OH) Sta tus Range Deficiency <20 ng/mL (50nmol/L) Insufficiency 20 - 30 ng/mL (50 - 75 nmol/L) Sufficiency 30 - 100 ng/mL (75 - 250 nmol/L) Toxicity >100 ng/mL (>250 nmol/L) Platelets bldon 10-21-2021 Platelets (Bld) [#/Vol] 241 10*3/uL 150-450 [facility] Work Phone: [phone] Serum or plasma albumin sarbjit urement (mass/volume)on 10-21-2021 Albumin [Mass/Vol] 3.2 g/dL 3.2-5.0 [facility] Work Phone: Serum or plasma albumin/glob ulin mass ratioon 10-21-2021 Albumin/Globulin [Mass ratio] 0.7 {ratio} 0.9-2.4 [facility] Work Phone: Serum or plasma calcium sarbjit urement (mass/volume)on 10-21-2021 Calcium [Mass/Vol] 10.0 mg/dL [facility]5-10.1 [facility] Work Phone: Serum or plasma creatinine m easurement (mass/volume)on 10-21-2021 Creatinine [Mass/Vol] 1.05 mg/dL 0.55-1.02 [facility] Work Phone: Comment on above: The validity of the calculated GFR & GFRAA in patients over 70 years has not been determined. Clinical correlation is essential. Serum or plasma urea nitroge n measurement (mass/volume)on 10-21-2021 Urea nitrogen [Mass/Vol] 20 mg/dL 7-18 [facility] Work Phone: Thin prep Papanicolaou smear with manual screeningon 10-21-2021 Thin prep Papanicolaou smear with manual screening 31 U/L 15-37 [facility] Work Phone: Thin prep Papanicolaou smear with manual screening 8 5-15 [facility] Work Phone: CNOVon 07-25-2019 CNOV Office Visit (URFHR) EDUAR CABRERA ([id number]) 1950 F Date Time Provider Department 07/25/19 3:30 PM [facility] During your visit today, we recorded the following information about you: Abdullahi Barker MD 07/26/2019 9:57 AM Signed Previous notes from 03/01/2018 was imported as a reference for the current encounter. All information in this note has been verified: Data or information that hasn't changed was retained from previous note and the rest was revised or updated where relevant. [facility] PATIENT INFORMATION: Eduar Cabrera REFERRING M.Tip.: [place] [id number] [facility] [place] [address] CHIEF COMPLAINT: Bilateral renal calculi, stable stones, [...] 50 mg by mouth once daily. - axhdtkk-lvuyvpgxp-mawz min D3 (CALCIUM 500+D) 500 mg(1,250mg) -200 [...] y. - GLUCOSAM HCL/MSM/CHONDRO FRANK A (GLUCOSAMINE [id number] ORAL) Take by mouth. 1200 mg daily - Gelatin 650 mg capsule Take 1,300 mg by mouth once daily. - Lovastatin 40 mg tablet Take 40 mg by mouth daily at bedtime. - LEVOTHYROXINE SODIUM (LEVOTHYROXINE ORAL) Take by mouth. - metFORMIN 500 mg tablet Take 500 mg by mouth three times daily. - fluticasone 50 mcg/actuation nasal spray Use 1 [place] in each nostril once daily. - olmesartan [...] Procedure Laterality Date - CATARACT SURGERY, COMPLEX [facility] FAMILY HISTORY Problem Relation Age of [...] Findings are suggestive of bilateral renal calculi. Supervisor Telephone Information: MAXIMUS ? Transcribe Date/Time: Jul 20 2019 ?5:07P Dictated by : JB MORATAYA MD KU December 2017 IMPRESSION: Bilateral renal stones similar to the previous study. Supervisor Telephone Information: [employer] ? Transcribe Date/Time: Dec ?4:57P KUB January 2017 IMPRESSION: Non- specific bowel gas pattern/ Bilateral renal calcifications without significant change Supervisor Telephone Information: MAXIMUS ? Transcribe Date/Time: January ?5:59P Dictated by : RYANN VÁZQUEZ MD KUB December 2015 IMPRESSION: STABLE BILATERAL NEPHROLITHIASIS Supervisor Telephone Information: ANDREW Transcribe Date/Time: Jan 07 2016 2:22P Dictated by : FLACO GUTIERREZ MD KUSalazar March 2015 IMPRESSION: STABLE BILATERAL RENAL CALCULI Supervisor Telephone Information: ANDREW Transcribe Date/Time: Apr 02 2015 6:57P Dictated by : FLACO GUTIERREZ MD This examination was interpreted and the report reviewed and electronically signed by: FLACO GUTIERREZ MD On Apr 02 2015 6:57PM US renal IMPRESSION: Bilateral shadowing renal calculi, as described. Supervisor Telephone Information: ANDREW Transcribe Date/Time: Apr 02 2015 3:32P Dictated by : TREY THORNTON MD This examination was interpreted and the report reviewed and electronically signed by: TREY THORNTON MD On Apr 02 2015 3:32PM DATE OF EXAM: Jun 23 2012 2:30PM [facility] 0345 - CT UROGRAM / PROCEDURE [...] a straight cath- can do this with PA/LANCE CREWMEMBER/MLRS SERGEANT at [place]. Review in clinic: 18 months and PRN, [...] complete nursing assessment. Referring Provider: ABDULLAHI BARKER [[id number]] Allergies As of Date: 07/25/2019 Noted Allergy [...] Diagnosis:Kidney stones [N20.0] Order(s):XR ABDOMEN 1V SUPINE [0691901] Order #: [id number] FUTURE URINALYSIS WITH MICROSCOPIC [SQUAWMIC] Order #: [id number] FUTURE Prescriptions as of 07/25/2019 Sig: COQ10 [...] Take by mouth every Wednesday,* * GLUCOSAMINE XMZ-DGN-OIBSVRRMV* Take by mouth. 1200 mg daily * GELATIN 650 MG CAPSULE Take 1,300 mg by mouth once d* * LOVASTATIN 40 MG TABLET Take 40 mg by mouth daily at * * LEVOTHYROXINE ORAL Take by mouth. * METFORMIN 500 MG TABLET Take 500 mg by mouth three ti* * FLUTICASONE PROPIONATE 50 MCG* Use 1 [place] in each nostril o* * OLMESARTAN 20 [...] Status:Closed by ABDULLAHI BARKER MD on 07/26/19 [facility] PROGRESSon 07-25-2019 PROGRESS HNO ID: [id number] Author: Abdullahi Barker Service: ? Author Type: Physician Type: Progress Notes Filed: 07/26/2019 9:57 AM Note Text: Previous notes from 03/01/2018 was imported as a reference for the current encounter. All information in this note has been verified: Data or information that hasn't changed was retained from previous note and the rest was revised or updated where relevant. [facility] PATIENT INFORMATION: Eduar Eastman Deborah REFERRING M.D.: [place] [id number] [facility] [address] CHIEF COMPLAINT: Bilateral renal calculi, stable stones, [...] 50 mg by mouth once daily. - cvzzwea-fgrajlgdw-cgiq min D3 (CALCIUM 500+D) 500 mg(1,250mg) -200 [...] y. - GLUCOSAM HCL/MSM/CHONDRO FRANK A (GLUCOSAMINE NOM-CVU-YTELJOVCVB ORAL) Take by mouth. 1200 mg daily - Gelatin 650 mg capsule Take 1,300 mg by mouth once daily. - Lovastatin 40 mg tablet Take 40 mg by mouth daily at bedtime. - LEVOTHYROXINE SODIUM (LEVOTHYROXINE ORAL) Take by mouth. - metFORMIN 500 mg tablet Take 500 mg by mouth three times daily. - fluticasone 50 mcg/actuation nasal spray Use 1 [place] in each nostril once daily. - olmesartan [...] Procedure Laterality Date - CATARACT SURGERY, COMPLEX [facility] FAMILY HISTORY Problem Relation Age of [...] culture 06/11/2015 <10K normal veto IMAGING: KUB 2019 IMPRESSION: Findings are suggestive of bilateral renal calculi. Supervisor Telephone Information: MAXIMUS ? Transcribe Date/Time: Jul 20 2019 ?5:07P Dictated by : JB MORATAYA MD [facility]azar December 2017 IMPRESSION: Bilateral renal stones similar to the previous study. Supervisor Telephone Information: MAXIMUS ? Transcribe Date/Time: Dec ?4:57P KUB January 2017 IMPRESSION: Non- specific bowel gas pattern/ Bilateral renal calcifications without significant change Supervisor Telephone Information: MAXIMUS ? Transcribe Date/Time: January ?5:59P Dictated by : RYANN VÁZQUEZ MD KUB December 2015 IMPRESSION: STABLE BILATERAL NEPHROLITHIASIS Supervisor Telephone Information: ANDREW Transcribe Date/Time: Jan 07 2016 2:22P Dictated by : FLACO GUTIERREZ MD [facility] March 2015 IMPRESSION: STABLE BILATERAL RENAL CALCULI Supervisor Telephone Information: PSYCHIATRIC Transcribe Date/Time: Apr 02 2015 6:57P Dictated by : FLACO GUTIERREZ MD This examination was interpreted and the report reviewed and electronically signed by: FLACO GUTIERREZ MD On Apr 02 2015 6:57PM US renal IMPRESSION: Bilateral shadowing renal calculi, as described. Supervisor Telephone Information: PSYCHIATRIC Transcribe Date/Time: Apr 02 2015 3:32P Dictated by : TREY THORNTON MD This examination was interpreted and the report reviewed and electronically signed by: TREY THORNTON MD On Apr 02 2015 3:32PM DATE OF EXAM: Jun 23 2012 2:30PM [facility] 0345 - CT UROGRAM / PROCEDURE [...] a straight cath- can do this with PA/LANCE CREWMEMBER/MLRS SERGEANT at [place]. Review in clinic: 18 months and PRN, with the above investigations. Consultation requested by Dr. Villagomez for an opinion regarding stones, and my final recommendations will be communicated back to the requesting physician by way of shared Medical record, fax or letter via US mail. Abdullahi Barker MD [facility] No Panel Information SARS-CoV-2 & FLU Antigen (Rapid) [facility] Work Phone: Vital Signs Date Time Vital Sign Value Performing Clinician Facility 06-16-2025 11:18-0400 Body temperature 98.3 [degF] Dr. Corby Heller MD Work Phone: [facility] 06-16-2025 11:18-0400 Diastolic blood pressure 90 mm[Hg] Dr. Corby Heller MD Work Phone: [facility] 06-16-2025 11:18-0400 Heart rate 81 /min Dr. Corby Heller MD Work Phone: [facility] 06-16-2025 11:18-0400 Respiratory rate 17 /min Dr. Corby Heller MD Work Phone: [facility] 06-16-2025 11:18-0400 SaO2% (BldA) [Mass fraction] 97 % Dr. Corby Heller MD Work Phone: [facility] 06-16-2025 11:18-0400 Systolic blood pressure 124 mm[Hg] Dr. Corby Heller MD Work Phone: [facility] 06-16-2025 09:01-0400 Body height 152.[address] Corby Heller MD Work Phone: 0(884)930-215610 [place] [address] 06-16-2025 09:01-0400 Body mass index (BMI) [Ratio] 50.3 kg/m2 Dr. Corby Heller MD Work Phone: 7(088)829-528457 [place] [address] 06-16-2025 09:01-0400 Body weight 116.[address] Corby Heller MD Work Phone: 2(544)818-878457 [place] [address] 05-15-2025 13:18-0400 Body temperature 97.9 [degF] Dr. Corby Heller MD Work Phone: 4(218)862-074557 [place] [address] 05-15-2025 13:18-0400 Diastolic blood pressure 69 mm[Hg] Dr. Corby Heller MD Work Phone: 3(735)194-417657 [place] [address] 05-15-2025 13:18-0400 Heart rate 69 /min Dr. Corby Heller MD Work Phone: 7(016)806-649310 [place] [address] 05-15-2025 13:18-0400 Respiratory rate 16 /min Dr. Corby Heller MD Work Phone: 2(429)028-604657 [place] [address] 05-15-2025 13:18-0400 SaO2% (BldA) [Mass fraction] 97 % Dr. Corby Heller MD Work Phone: 3(679)256-594810 [place] [address] 05-15-2025 13:18-0400 Systolic blood pressure 121 mm[Hg] Dr. Corby Heller MD Work Phone: 5(286)829-791010 [place] [address] 05-14-2025 02:40-0400 Inhaled oxygen flow rate 1 L/min Dr. Corby Heller MD Work Phone: 0(110)909-607510 [place] [address] 05-11-2025 10:43-0400 Body height 152.[address] Corby Heller MD Work Phone: 1(580)366-796210 [place] [address] 05-11-2025 10:43-0400 Body weight 115.[address] Corby Heller MD Work Phone: [facility] 05-11-2025 10:00-0400 Heart rate 76 /min Dr. Corby Heller MD Work Phone: [facility] 05-11-2025 10:00-0400 Inhaled oxygen flow rate 1 L/min Dr. Corby Heller MD Work Phone: [facility] 05-11-2025 10:00-0400 Respiratory rate 20 /min Dr. Corby Heller MD Work Phone: [facility] 05-11-2025 10:00-0400 SaO2% (BldA) [Mass fraction] 96 % Dr. Corby Heller MD Work Phone: [facility] 05-11-2025 09:40-0400 Body temperature 98.6 [degF] Dr. Corby Heller MD Work Phone: [facility] 05-11-2025 09:40-0400 Diastolic blood pressure 59 mm[Hg] Dr. Corby Heller MD Work Phone: [facility] 05-11-2025 09:40-0400 Systolic blood pressure 107 mm[Hg] Dr. Corby Heller MD Work Phone: [facility] 05-10-2025 20:41-0400 Body mass index (BMI) [Ratio] 49.6 kg/m2 Dr. Corby Heller MD Work Phone: [facility] 05-10-2025 19:11-0400 Body temperature 100.3 [degF] Dr. Corby Heller MD Work Phone: [facility] 05-10-2025 19:11-0400 Diastolic blood pressure 91 mm[Hg] Dr. Corby Heller MD Work Phone: [facility] 05-10-2025 19:11-0400 Heart rate 90 /min Dr. Corby Heller MD Work Phone: [facility] 05-10-2025 19:11-0400 Inhaled oxygen flow rate 2 L/min Dr. Corby Heller MD Work Phone: [facility] 05-10-2025 19:11-0400 Respiratory rate 20 /min Dr. Corby Heller MD Work Phone: 7(858)072-930710 [place] [address] 05-10-2025 19:11-0400 SaO2% (BldA) [Mass fraction] 100 % Dr. Corby Heller MD Work Phone: 2(417)778-204710 [place] [address] 05-10-2025 19:11-0400 Systolic blood pressure 148 mm[Hg] Dr. Corby Heller MD Work Phone: 7(092)753-048910 [place] [address] 05-10-2025 14:51-0400 Body height 157.[address] Corby Heller MD Work Phone: 3(610)821-529157 [place] [address] 05-10-2025 14:51-0400 Body mass index (BMI) [Ratio] 47.9 kg/m2 Dr. Corby Heller MD Work Phone: 7(479)497-441557 [place] [address] 05-10-2025 14:51-0400 Body weight [address] Corby Heller MD Work Phone: 1(936)392-806957 [place] [address] 02-15-2025 15:57-0400 Body height 157.[address] Corby Heller MD Work Phone: 3(695)582-610957 [place] [address] 01-26-2025 14:39-0400 Diastolic blood pressure 81 mm[Hg] Dr. Corby Heller MD Work Phone: 6(506)154-152257 [place] [address] 01-26-2025 14:39-0400 Heart rate 75 /min Dr. Corby Heller MD Work Phone: 8(268)550-757610 [place] [address] 01-26-2025 14:39-0400 Respiratory rate 18 /min Dr. Corby Heller MD Work Phone: 6(855)983-850857 [place] [address] 01-26-2025 14:39-0400 SaO2% (BldA) [Mass fraction] 96 % Dr. Corby Heller MD Work Phone: 3(266)062-499157 [place] [address] 01-26-2025 14:39-0400 Systolic blood pressure 138 mm[Hg] Dr. Corby Heller MD Work Phone: 4(201)852-554710 [place] [address] 01-18-2025 14:52-0400 Diastolic blood pressure 58 mm[Hg] Dr. Corby Heller MD Work Phone: [facility] 01-18-2025 14:52-0400 Heart rate 88 /min Dr. Corby Heller MD Work Phone: [facility] 01-18-2025 14:52-0400 Respiratory rate 18 /min Dr. Corby Heller MD Work Phone: [facility] 01-18-2025 14:52-0400 SaO2% (BldA) [Mass fraction] 92 % Dr. Corby Heller MD Work Phone: 2(696)264-347110 [place] [address] 01-18-2025 14:52-0400 Systolic blood pressure 110 mm[Hg] Dr. Corby Heller MD Work Phone: 4(785)432-336749 [place] [address] 01-01-2025 14:48-0400 Body height 157.[address] Corby Heller MD Work Phone: [facility] 01-01-2025 14:48-0400 Body temperature 97.7 [degF] Dr. Corby Heller MD Work Phone: [facility] 01-01-2025 14:48-0400 Diastolic blood pressure 84 mm[Hg] Dr. Corby Heller MD Work Phone: [facility] 01-01-2025 14:48-0400 Heart rate 83 /min Dr. Corby Heller MD Work Phone: [facility] 01-01-2025 14:48-0400 Respiratory rate 22 /min Dr. Corby Heller MD Work Phone: [facility] 01-01-2025 14:48-0400 SaO2% (BldA) [Mass fraction] 99 % Dr. Corby Heller MD Work Phone: [facility] 01-01-2025 14:48-0400 Systolic blood pressure 133 mm[Hg] Dr. Corby Heller MD Work Phone: [facility] 12-28-2024 15:07-0400 Body height 157.[address] Corby Heller MD Work Phone: 9(935)221-778810 [place] [address] 12-28-2024 15:07-0400 Body temperature 97.3 [degF] Dr. Corby Heller MD Work Phone: [facility] 12-28-2024 15:07-0400 Diastolic blood pressure 74 mm[Hg] Dr. Corby Heller MD Work Phone: 3(986)744-770810 [place] [address] 12-28-2024 15:07-0400 Heart rate 81 /min Dr. Corby Heller MD Work Phone: 8(347)722-596410 [place] [address] 12-28-2024 15:07-0400 Respiratory rate 18 /min Dr. Corby Heller MD Work Phone: 0(996)057-046957 [place] [address] 12-28-2024 15:07-0400 SaO2% (BldA) [Mass fraction] 95 % Dr. Corby Heller MD Work Phone: 2(516)112-645510 [place] [address] 12-28-2024 15:07-0400 Systolic blood pressure 136 mm[Hg] Dr. Corby Heller MD Work Phone: 9(799)166-659110 [place] [address] 12-27-2024 10:25-0400 Body height 157.[address] Corby Heller MD Work Phone: 9(519)257-500010 [place] [address] 12-27-2024 10:25-0400 Body mass index (BMI) [Ratio] 47.2 kg/m2 Dr. Corby Heller MD Work Phone: 8(546)137-561310 [place] [address] 12-27-2024 10:25-0400 Body temperature 96.8 [degF] Dr. Corby Heller MD Work Phone: 9(629)339-408710 [place] [address] 12-27-2024 10:25-0400 Body weight 117.[address] Corby Heller MD Work Phone: 9(179)651-429610 [place] [address] 12-27-2024 10:25-0400 Diastolic blood pressure 75 mm[Hg] Dr. Corby Helelr MD Work Phone: 5(572)441-195510 [place] [address] 12-27-2024 10:25-0400 Heart rate 79 /min Dr. Corby Heller MD Work Phone: 6(545)964-160010 [place] [address] 12-27-2024 10:25-0400 Respiratory rate 16 /min Dr. Corby Heller MD Work Phone: 2(588)680-040357 [place] [address] 12-27-2024 10:25-0400 SaO2% (BldA) [Mass fraction] 98 % Dr. Corby Heller MD Work Phone: 0(107)193-623957 [place] [address] 12-27-2024 10:25-0400 Systolic blood pressure 144 mm[Hg] Dr. Corby Heller MD Work Phone: 8(357)213-442557 [place] [address] 12-26-2024 12:37-0400 Body height 157.[address] Corby Heller MD Work Phone: 5(326)021-372357 [place] [address] 12-26-2024 12:37-0400 Diastolic blood pressure 72 mm[Hg] Dr. Corby Heller MD Work Phone: 6(097)103-148857 [place] [address] 12-26-2024 12:37-0400 Heart rate 75 /min Dr. Corby Heller MD Work Phone: 1(443)817-933257 [place] [address] 12-26-2024 12:37-0400 Respiratory rate 18 /min Dr. Corby Heller MD Work Phone: 1(432)576-842357 [place] [address] 12-26-2024 12:37-0400 Systolic blood pressure 144 mm[Hg] Dr. Corby Heller MD Work Phone: 7(303)799-753757 [place] [address] 12-25-2024 11:55-0400 Body height 157.[address] Corby Heller MD Work Phone: 4(452)010-578057 [place] [address] 12-25-2024 11:55-0400 Body mass index (BMI) [Ratio] 47.2 kg/m2 Dr. Corby Heller MD Work Phone: 2(408)070-696457 [place] [address] 12-25-2024 11:55-0400 Body temperature 96.4 [degF] Dr. Corby Heller MD Work Phone: 7(267)790-770657 [place] [address] 12-25-2024 11:55-0400 Body weight 117.[address] Corby Heller MD Work Phone: [facility] 12-25-2024 11:55-0400 Diastolic blood pressure 71 mm[Hg] Dr. Corby Heller MD Work Phone: 3(989)478-653210 [place] [address] 12-25-2024 11:55-0400 Heart rate 77 /min Dr. Corby Heller MD Work Phone: 7(133)742-189410 [place] [address] 12-25-2024 11:55-0400 Respiratory rate 16 /min Dr. Corby Heller MD Work Phone: 7(016)699-011410 [place] [address] 12-25-2024 11:55-0400 SaO2% (BldA) [Mass fraction] 97 % Dr. Corby Heller MD Work Phone: 1(153)539-233310 [place] [address] 12-25-2024 11:55-0400 Systolic blood pressure 140 mm[Hg] Dr. Corby Heller MD Work Phone: 8(894)658-495657 [place] [address] 12-24-2024 15:18-0400 Body temperature 97.5 [degF] Dr. Corby Heller MD Work Phone: 8(302)113-541110 [place] [address] 12-24-2024 15:18-0400 Diastolic blood pressure 69 mm[Hg] Dr. Corby Heller MD Work Phone: 3(867)269-916157 [place] [address] 12-24-2024 15:18-0400 Heart rate 75 /min Dr. Corby Heller MD Work Phone: 3(643)194-083810 [place] [address] 12-24-2024 15:18-0400 Respiratory rate 18 /min Dr. Corby Heller MD Work Phone: [facility] 12-24-2024 15:18-0400 SaO2% (BldA) [Mass fraction] 99 % Dr. Corby Heller MD Work Phone: 5(197)893-328510 [place] [address] 12-24-2024 15:18-0400 Systolic blood pressure 140 mm[Hg] Dr. Corby Heller MD Work Phone: 8(970)670-699410 [place] [address] 12-23-2024 13:38-0400 Body temperature 98.2 [degF] Dr. Corby Heller MD Work Phone: 7(779)106-135257 [place] [address] 12-23-2024 13:38-0400 Diastolic blood pressure 87 mm[Hg] Dr. Corby Heller MD Work Phone: 6(372)588-785157 [place] [address] 12-23-2024 13:38-0400 Heart rate 77 /min Dr. Corby Heller MD Work Phone: 0(085)985-141357 [place] [address] 12-23-2024 13:38-0400 Respiratory rate 18 /min Dr. Corby Heller MD Work Phone: 8(487)373-372557 [place] [address] 12-23-2024 13:38-0400 SaO2% (BldA) [Mass fraction] 98 % Dr. Corby Heller MD Work Phone: 4(957)112-028657 [place] [address] 12-23-2024 13:38-0400 Systolic blood pressure 124 mm[Hg] Dr. Corby Heller MD Work Phone: 5(649)237-558057 [place] [address] 12-23-2024 12:15-0400 Body height 157.[address] Corby Heller MD Work Phone: 0(064)829-030257 [place] [address] 12-23-2024 12:15-0400 Body mass index (BMI) [Ratio] 47.3 kg/m2 Dr. Corby Heller MD Work Phone: 7(961)144-522557 [place] [address] 12-23-2024 12:15-0400 Body weight 117.[address] Corby Heller MD Work Phone: 1(719)468-524057 [place] [address] 12-22-2024 12:34-0400 Body height 157.[address] Corby Heller MD Work Phone: 3(235)164-274657 [place] [address] 12-22-2024 12:34-0400 Body mass index (BMI) [Ratio] 47.3 kg/m2 Dr. Corby Heller MD Work Phone: 3(931)200-543457 [place] [address] 12-22-2024 12:34-0400 Body temperature 96.8 [degF] Dr. Corby Heller MD Work Phone: 4(218)821-476157 [place] [address] 12-22-2024 12:34-0400 Body weight 117.[address] Corby Heller MD Work Phone: 0(602)940-455957 [place] [address] 12-22-2024 12:34-0400 Diastolic blood pressure 69 mm[Hg] Dr. Corby Heller MD Work Phone: [facility] 12-22-2024 12:34-0400 Heart rate 70 /min Dr. Corby Heller MD Work Phone: [facility] 12-22-2024 12:34-0400 Respiratory rate 16 /min Dr. Corby Heller MD Work Phone: [facility] 12-22-2024 12:34-0400 SaO2% (BldA) [Mass fraction] 97 % Dr. Corby Heller MD Work Phone: [facility] 12-22-2024 12:34-0400 Systolic blood pressure 140 mm[Hg] Dr. Corby Heller MD Work Phone: [facility] 01-27-2024 14:11-0400 Body temperature 97.8 [degF] [facility] 01-27-2024 14:11-0400 Diastolic blood pressure 83 mm[Hg] [facility] 01-27-2024 14:11-0400 Heart rate 75 /min [facility] 01-27-2024 14:11-0400 Respiratory rate 16 /min [facility] 01-27-2024 14:11-0400 SaO2% (BldA) [Mass fraction] 94 % [facility] 01-27-2024 14:11-0400 Systolic blood pressure 156 mm[Hg] [facility] 01-27-2024 14:00-0400 Inhaled oxygen flow rate 2 L/min [facility] 01-27-2024 09:52-0400 Body height 157.48 cm [facility] 01-27-2024 09:52-0400 Body mass index (BMI) [Ratio] 45.6 kg/m2 [facility] 01-27-2024 09:52-0400 Body weight 113 kg [facility] 11-25-2023 14:37-0500 Body temperature 97.2 [degF] [facility] 11-25-2023 14:37-0500 Diastolic blood pressure 45 mm[Hg] [facility] 11-25-2023 14:37-0500 Heart rate 76 /min [facility] 11-25-2023 14:37-0500 Respiratory rate 16 /min [facility] 11-25-2023 14:37-0500 SaO2% (BldA) [Mass fraction] 94 % [facility] 11-25-2023 14:37-0500 Systolic blood pressure 111 mm[Hg] [facility] 11-25-2023 11:06-0500 Body height 157.48 cm [facility] 11-25-2023 11:06-0500 Body mass index (BMI) [Ratio] 45.8 kg/m2 [facility] 11-25-2023 11:06-0500 Body weight 113.57 kg [facility] 11-11-2023 14:55-0500 Diastolic blood pressure 51 mm[Hg] [facility] 11-11-2023 14:55-0500 Heart rate 78 /min [facility] 11-11-2023 14:55-0500 Respiratory rate 18 /min [facility] 11-11-2023 14:55-0500 SaO2% (BldA) [Mass fraction] 97 % [facility] 11-11-2023 14:55-0500 Systolic blood pressure 129 mm[Hg] [facility] 11-11-2023 13:40-0500 Body temperature 97.5 [degF] [facility] 11-11-2023 13:35-0500 Inhaled oxygen flow rate 3 L/min [facility] 11-11-2023 11:47-0500 Body height 157.48 cm [facility] 11-11-2023 11:47-0500 Body mass index (BMI) [Ratio] 46.5 kg/m2 [facility] 11-11-2023 11:47-0500 Body weight 115.3 kg [facility] 08-05-2023 10:45-0500 Body temperature 97 [degF] Dr. Corby Heller Work Phone: [facility] 08-05-2023 10:45-0500 Diastolic blood pressure 94 mm[Hg] Dr. Corby Heller Work Phone: [facility] 08-05-2023 10:45-0500 Heart rate 89 /min Dr. Corby Heller Work Phone: [facility] 08-05-2023 10:45-0500 Respiratory rate 16 /min Dr. Corby Heller Work Phone: 1(377)582-153887 [address] 08-05-2023 10:45-0500 SaO2% (BldA) [Mass fraction] 97 % Dr. Corby Heller Work Phone: 9(113)999-056710 [place] [address] 08-05-2023 10:45-0500 Systolic blood pressure 111 mm[Hg] Dr. Corby Heller Work Phone: 9(774)462-947810 [place] [address] 08-05-2023 10:30-0500 Inhaled oxygen flow rate 1 L/min Dr. Corby Heller Work Phone: 3(799)715-110957 [place] [address] 08-05-2023 07:56-0500 Body height 157.[address] Corby Heller Work Phone: 3(960)000-470957 [place] [address] 08-05-2023 07:56-0500 Body mass index (BMI) [Ratio] 47.6 kg/m2 Dr. Corby Heller Work Phone: 5(541)649-217757 [place] [address] 08-05-2023 07:56-0500 Body weight 118.[address] Corby Heller Work Phone: 3(750)937-083887 [address] 07-15-2023 11:03-0400 Body temperature 97.9 [degF] Dr. Corby Heller Work Phone: 4(486)344-811510 [place] [address] 07-15-2023 11:03-0400 Diastolic blood pressure 78 mm[Hg] Dr. Corby Heller Work Phone: [facility] 07-15-2023 11:03-0400 Heart rate 83 /min Dr. Corby Heller Work Phone: [facility] 07-15-2023 11:03-0400 Respiratory rate 18 /min Dr. Corby Heller Work Phone: 5(477)665-629710 [place] [address] 07-15-2023 11:03-0400 SaO2% (BldA) [Mass fraction] 93 % Dr. Corby Heller Work Phone: [facility] 07-15-2023 11:03-0400 Systolic blood pressure 117 mm[Hg] Dr. Corby Heller Work Phone: [facility] 07-13-2023 12:57-0400 Body mass index (BMI) [Ratio] 47.4 kg/m2 Dr. Corby Heller Work Phone: 4(217)016-087810 [place] [address] 07-13-2023 12:57-0400 Body weight 117.[address] Corby Heller Work Phone: 7(151)944-611010 [place] [address] 07-07-2023 07:39-0400 Body height 157.[address] Corby Heller Work Phone: 0(551)581-305887 [address] 06-30-2023 10:58-0400 Body temperature 97.6 [degF] Dr. Corby Heller Work Phone: 0(417)933-954410 [place] [address] 06-30-2023 10:58-0400 Diastolic blood pressure 72 mm[Hg] Dr. Corby Heller Work Phone: 2(391)869-618210 [place] [address] 06-30-2023 10:58-0400 Heart rate 79 /min Dr. Corby Heller Work Phone: 5(918)797-370310 [place] [address] 06-30-2023 10:58-0400 Respiratory rate 18 /min Dr. Corby Heller Work Phone: 2(971)546-285810 [place] [address] 06-30-2023 10:58-0400 SaO2% (BldA) [Mass fraction] 93 % Dr. Corby Heller Work Phone: [facility] 06-30-2023 10:58-0400 Systolic blood pressure 123 mm[Hg] Dr. Corby Heller Work Phone: 1(760)854-428110 [place] [address] 06-30-2023 09:10-0400 Inhaled oxygen flow rate 3 L/min Dr. Corby Heller Work Phone: 5(495)603-684410 [place] [address] 06-29-2023 06:00-0400 Body mass index (BMI) [Ratio] 57.6 kg/m2 Dr. Corby Heller Work Phone: [facility] 06-29-2023 06:00-0400 Body weight [address] Corby Heller Work Phone: [facility] 06-26-2023 03:00-0400 Inhaled oxygen concentration 35 % Dr. Corby Heller Work Phone: [facility] 08-04-2022 11:18-0500 Diastolic blood pressure 57 mm[Hg] Grisle Villanueva DO Work Phone: [facility] 08-04-2022 11:18-0500 Heart rate 109 /min Grisel Villanueva DO Work Phone: [facility] 08-04-2022 11:18-0500 SaO2% (BldA) [Mass fraction] 96 % Griselluan Villanueva Work Phone: [facility] 08-04-2022 11:18-0500 Systolic blood pressure 131 mm[Hg] Grisel Villanueva Work Phone: [facility] 07-12-2022 16:20-0400 Diastolic blood pressure 84 mm[Hg] [facility] Work Phone: 07-12-2022 16:20-0400 Heart rate 102 /min [facility] Work Phone: 07-12-2022 16:20-0400 Respiratory rate 22 /min [facility] Work Phone: 07-12-2022 16:20-0400 SaO2% (BldA) [Mass fraction] 95 % [facility] Work Phone: 07-12-2022 16:20-0400 Systolic blood pressure 137 mm[Hg] [facility] Work Phone: 07-12-2022 14:24-0400 Body height 157.48 cm [facility] Work Phone: 07-12-2022 14:24-0400 Body mass index (BMI) [Ratio] 48.3 kg/m2 [facility] Work Phone: 07-12-2022 14:24-0400 Body temperature 98.4 [degF] [facility] Work Phone: 07-12-2022 14:24-0400 Body weight 119.8 kg [facility] Work Phone: Encounters Encounter Date Encounter Type Care Provider Facility Start: 06-19-2025 End: 06-19-[address] Corby Heller MD Work Phone: -Laboratory Phy Office 3rd Flr Start: 06-19-2025 End: 06-19-[address] Corby Heller MD -Laboratory Phy Office 3rd Flr Start: 06-19-2025 End: 06-19-2025 [facility] Start: 06-16-2025 End: 06-16-2025 Emergency department patient visit Dr. Jalen Delgado DO -Emergency Department Work Phone: Start: 05-15-2025 Non-patient / Non-visit Dr. Flaco najera MD -[facility] Work Phone: Start: 05-14-2025 Non-patient / Non-visit Dr. Hari Miranda MD -[facility] Work Phone: Start: 05-13-2025 Non-patient / Non-visit Dr. Hari Miranda MD -[facility] Work Phone: Start: 05-12-2025 Non-patient / Non-visit Dr. Hari Miranda MD -[facility] Work Phone: Start: 05-11-2025 ambulatory Darren Dinh Facility:[facility] Start: 05-11-2025 Non-patient / Non-visit Dr. Darren guerra MD -[facility] Start: 05-11-2025 Non-patient / Non-visit Dr. Hari Miranda MD -[facility] Work Phone: Start: 05-10-2025 ambulatory Holly Lopez Facility:[facility] Start: 05-10-2025 End: 05-15-2025 Evaluation and management of inpatient Dr. Holly Lopez MD -Progressive Care Unit Work Phone: Start: 05-03-2025 End: 05-03-[address] Corby Heller MD Work Phone: -Laboratory Phy Office 3rd Flr Start: 05-03-2025 End: 05-03-[address] Corby Heller MD -Laboratory Phy Office 3rd Flr Start: 05-03-2025 End: 05-03-2025 ambulatory Bella Prieto Facility:[facility] Start: 03-27-2025 Non-patient / Non-visit Dr. Marie jones MD -[facility] Work Phone: Start: 02-15-2025 End: 02-15-[address] Corby Heller MD Work Phone: [facility] Work Phone: Start: 02-15-2025 End: 02-15-[address] Corby Heller MD -Outpatient Bone Densitometry Work Phone: Start: 02-15-2025 End: 02-15-2025 ambulatory [facility] Facility:[facility] Start: 01-30-2025 End: 01-30-[address] Corby Heller MD Work Phone: [facility] Work Phone: Start: 01-30-2025 End: 01-30-[address] Bella Prieto DO -Laboratory Work Phone: Start: 01-30-2025 End: 01-30-2025 ambulatory Bella Prieto Facility:[facility] Start: 01-26-2025 End: 01-26-[address] Rob Weinberg MD -[facility] Work Phone: Start: 01-26-2025 End: 01-26-2025 ambulatory [facility] Start: 01-18-2025 End: 01-18-[address] Rob Weinberg MD -Laboratory, Specimen Work Phone: Start: 01-18-2025 End: 01-18-2025 ambulatory Rob Weinberg Facility:[facility] Start: 01-18-2025 End: 01-18-[address] Rob Weinberg MD -[facility] Work Phone: Start: 01-18-2025 End: 01-18-2025 ambulatory Corby [facility] Facility[facility] Start: 01-01-2025 End: 01-01-2025 Emergency department patient visit Dr. Evans Blankenship DO -Emergency Department Work Phone: Start: 01-01-2025 ambulatory [facility] Facility:[facility] Start: 12-28-2024 End: 12-28-[address] Rob Krishnamurthy MD -Medical Out Work Phone: Start: 12-28-2024 End: 12-28-[address] Cobry Heller MD Work Phone: [facility] Work Phone: Start: 12-27-2024 End: 12-27-[address] Rob Krishnamurthy MD -Medical Out Work Phone: Start: 12-27-2024 End: 12-27-[address] Corby Heller MD Work Phone: [facility] Work Phone: Start: 12-26-2024 End: 12-26-[address] Rob Krishnamurthy MD -Medical Out Work Phone: Start: 12-26-2024 End: 12-26-[address] Corby Heller MD Work Phone: [facility] Work Phone: Start: 12-25-2024 End: 12-25-[address] Rob Krishnamurthy MD -Medical Out Work Phone: Start: 12-25-2024 End: 12-25-[address] Corby Heller MD Work Phone: [facility] Work Phone: Start: 12-24-2024 End: 12-24-[address] Rob Krishnamurthy MD -Medical Out Work Phone: Start: 12-24-2024 End: 12-24-[address] Corby Heller MD Work Phone: [facility] Work Phone: Start: 12-23-2024 End: 12-23-2024 Emergency department patient visit Dr. Corby Heller MD Work Phone: -Emergency Department Work Phone: Start: 12-23-2024 ambulatory Rob Krishnamurthy [facility] ty:[facility] Start: 12-22-2024 End: 12-22-[address] Rob Krishnamurthy MD -Medical Out Work Phone: Start: 12-22-2024 End: 12-22-[address] Corby Heller MD Work Phone: [facility] Work Phone: Start: 12-18-2024 End: 12-18-[address] Corby Heller MD Work Phone: [facility] Work Phone: Start: 12-18-2024 End: 12-18-[address] Corby Heller MD -Radiology, [facility] Work Phone: Start: 12-18-2024 End: 12-18-2024 ambulatory Corby Heller Facility:[facility] Start: 11-23-2024 End: 11-23-[address] Corby Heller MD Work Phone: [facility] Work Phone: Start: 11-23-2024 End: 11-23-[address] Corby Heller MD -Laboratory, y Office [address] [place] [address] Start: 11-23-2024 End: 11-23-2024 ambulatory Corby Chi [facility] Facility:[facility] Start: 09-11-2024 End: 09-11-[address] Marie Caldera MD -Radiology, [place] Work Phone: Start: 09-11-2024 End: 09-11-2024 ambulatory Marie Caldera Facility:[facility] Start: 08-25-2024 End: 08-25-[address] Marie Caldera MD -Cat Scan, [facility] Work Phone: Start: 08-25-2024 End: 08-25-2024 ambulatory Marie Caldera Facility:[facility] Start: 08-18-2024 End: 08-18-2024 Patient encounter procedure Shana SINGH -[facility] Work Phone: Start: 08-18-2024 End: 08-18-2024 ambulatory Corby [facility] Facility:[facility] Start: 08-11-2024 End: 08-11-2024 Patient encounter procedure Shana SINGH -[facility] Work Phone: Start: 08-11-2024 End: 08-11-2024 ambulatory Corby Chi [facility] Facility:[facility] Start: 08-04-2024 End: 08-04-2024 ambulatory Corby Chi [facility] Start: 07-12-2024 End: 07-12-2024 ambulatory Corby Chi [facility] Facility:[facility] Start: 01-27-2024 End: 01-27-2024 Admission to same day surgery center [facility] Start: 01-27-2024 End: 01-27-2024 ambulatory [facility] Work Phone: Start: 01-24-2024 End: 01-24-2024 ambulatory [facility] Work Phone: Start: 01-24-2024 End: 01-24-2024 Patient encounter procedure [facility]-Laboratory, [place] Work Phone: Start: 01-17-2024 End: 01-17-2024 ambulatory [facility] Work Phone: Start: 01-17-2024 End: 01-17-2024 Patient encounter procedure [facility]-Radiology, [place] Work Phone: Start: 12-16-2023 End: 12-16-2023 ambulatory [facility] Work Phone: Start: 12-16-2023 End: 12-16-2023 Patient encounter procedure [facility]-Cat Scan, [facility] Work Phone: Start: 11-25-2023 End: 11-25-2023 Admission to same day surgery center [facility] Start: 11-25-2023 End: 11-25-2023 ambulatory [facility] Work Phone: Start: 11-11-2023 End: 11-11-2023 Admission to same day surgery center [facility] Start: 11-11-2023 End: 11-11-2023 ambulatory [facility] Work Phone: Start: 10-29-2023 End: 10-29-2023 ambulatory [facility] Work Phone: Start: 10-29-2023 End: 10-29-2023 Patient encounter procedure [facility]-Pre-Admission Testing Work Phone: Start: 10-27-2023 End: 10-27-2023 Patient encounter procedure [facility]-Laboratory, Phy Office 3rd Flr Start: 08-05-2023 End: 08-05-2023 Admission to same day surgery center Dr. Corby Heller Work Phone: [facility] Start: 08-05-2023 End: 08-05-[address] Corby Heller Work Phone: [facility] Work Phone: Start: 07-27-2023 End: 07-27-[address] Corby Heller Work Phone: [facility] Work Phone: Start: 07-27-2023 End: 07-27-[address] Corby Heller Work Phone: [facility]-Laboratory, Specimen Work Phone: Start: 07-21-2023 End: 07-21-[address] Corby Heller Work Phone: [facility] Work Phone: Start: 07-21-2023 End: 07-21-[address] Corby Heller Work Phone: [facility]-Laboratory, Phy Office 3rd Flr Start: 06-30-2023 End: 07-15-2023 Evaluation and management of inpatient Dr. Corby Heller Work Phone: [facility]-Transitional Care Unit Start: 06-30-2023 Non-patient / Non-visit Dr. Ryder Heller Work Phone: [facility] Work Phone: Start: 06-29-2023 Non-patient / Non-visit Dr. Ryder Heller Work Phone: [facility] Work Phone: Start: 06-28-2023 Non-patient / Non-visit Dr. Ryder Heller Work Phone: [facility] Work Phone: Start: 06-27-2023 Non-patient / Non-visit Dr. Ryder Heller Work Phone: [facility] Work Phone: Start: 06-27-2023 Non-patient / Non-visit Dr. Ryder Heller Work Phone: [facility] Start: 06-26-2023 Non-patient / Non-visit Dr. Ryder Heller Work Phone: [facility] Start: 06-26-2023 Non-patient / Non-visit Dr. Ryder Heller Work Phone: [facility] Start: 06-26-2023 Non-patient / Non-visit Dr. Ryder Heller Work Phone: [facility] Work Phone: Start: 06-25-2023 Non-patient / Non-visit Dr. Ryder Heller Work Phone: [facility] Work Phone: Start: 06-25-2023 End: 06-30-2023 Evaluation and management of inpatient Dr. Corby Heller Work Phone: [facility]-Progressive Care Unit Work Phone: Start: 05-04-2023 End: 05-04-2023 ambulatory [facility] Work Phone: Start: 05-04-2023 End: 05-04-2023 Patient encounter procedure [facility]-Laboratory, Phy Office 3rd Flr Start: 04-21-2023 End: 04-21-2023 ambulatory [facility] Work Phone: Start: 04-21-2023 End: 04-21-2023 Patient encounter procedure [facility]-Laboratory, Phy Office 3rd Flr Start: 03-18-2023 End: 03-18-2023 ambulatory [facility] Work Phone: Start: 03-18-2023 End: 03-18-2023 Patient encounter procedure [facility]-Radiology, [facility] Start: 01-21-2023 End: 01-21-2023 ambulatory [facility] Work Phone: Start: 01-21-2023 End: 01-21-2023 Patient encounter procedure [facility]-Laboratory, Phy Office 3rd Flr Start: 12-17-2022 End: 12-17-2022 ambulatory [facility] Work Phone: Start: 12-17-2022 End: 12-17-2022 Patient encounter procedure [facility]-Laboratory, Phy Office 3rd Flr Start: 08-06-2022 Non-patient / Non-visit Dr. Ryder Heller Work Phone: [facility] Start: 08-06-2022 End: 08-06-[address] Corby Heller Work Phone: [facility] Work Phone: Start: 08-06-2022 End: 08-06-[address] Corby Heller Work Phone: [facility]-Cardiovascular Services Start: 08-04-2022 End: 08-04-2022 ambulatory CORBY HELLER Facility:[facility] Start: 08-04-2022 End: 08-04-2022 Patient encounter procedure Grisel Villanueva DO Work Phone: Vascular Surgery Comment on above: Venous (peripheral) insufficiency (Primary Dx) Start: 07-27-2022 End: 07-27-2022 ambulatory [facility] Work Phone: Start: 07-27-2022 End: 07-27-2022 Patient encounter procedure [facility], [facility] Start: 07-12-2022 End: 07-12-2022 Emergency department patient visit [facility]-Emergency Department Start: 04-07-2022 End: 04-07-2022 Patient encounter procedure [facility]-Laboratory, Phy Office 3rd Flr Start: 03-11-2022 End: 03-11-2022 Patient encounter procedure [facility]-Radiology, [facility] Start: 02-26-2022 End: 02-26-2022 Patient encounter procedure [facility]-Outpatient Breast Imaging Start: 02-17-2022 End: 02-17-2022 Patient encounter procedure [facility]-Radiology, [place] Start: 01-27-2022 End: 01-27-2022 Patient encounter procedure [facility]-Laboratory, Specimen Start: 01-20-2022 End: 01-20-2022 Patient encounter procedure [facility]-Laboratory, Phy Office 3rd Flr Start: 10-21-2021 End: 10-21-2021 Patient encounter procedure [facility]-Laboratory, Phy Office 3rd Flr Procedures Date Procedure Procedure Detail Performing Clinician Start: 06-19-2025 SARS-CoV-2, Influenz a & RSV (PCR) Dr. Corby Heller MD Work Phone: Start: 06-16-[address] Corby Heller MD Work Phone: Start: 06-16-2025 Urnls dip stick/tabl et reagent auto microscopy Dr. Corby Heller MD Work Phone: Start: 06-16-2025 Radiologic exam ches t [address] Corby Heller MD Work Phone: Start: 05-14-[address] Corby Heller MD Work Phone: Start: 05-11-2025 MRI of lower limb wi th contrast Dr. Corby Heller MD Work Phone: Start: 05-11-[address] Corby Heller MD Work Phone: Start: 05-11-2025 Gram stain microscopy D eliza Heller MD Work Phone: Start: 05-11-2025 End: 05-11-2025 Microbial culture, routine Dr. Corby Heller MD Work Phone: Start: 05-11-2025 Estimated [...] MD Work Phone: Start: 02-15-2025 Screening mammography D eliza Heller MD Work Phone: Start: 01-30-2025 Urine [...] chest X-ray Start: 07-19-2011 Mammography Grisel sesay [employer] Work Phone: Start: 07-19-2005 Colonoscopy Griselalexx sesay [employer] Work Phone: SARS-CoV-2 & FLU Ant igen (Rapid) Plan of Treatment Date Care Activity Detail Author Start: 06-19-2025 Patient encounter procedure Registered Clinical -Laboratory Phy Office 3rd Flr Start: 06-19-2025 SARS-CoV-2, Influenza & RSV (PCR) SARS-CoV-2, Influenza & RSV (PCR) [facility] Start: 05-15-2025 Patient discharge [facility] Start: 05-12-2025 [facility] Start: 05-11-2025 MRI of lower limb with contrast Lower Ext No Joint W/WO Cont [facility] Start: 05-11-2025 [facility] Start: 05-11-2025 Referral to service [facility] Start: 05-11-2025 Anaerobic Culture Anaerobic Culture [facility] Start: 05-11-2025 Anaerobic microbial culture Anaerobic Culture [facility] Start: 05-11-2025 Microbial culture, routine Wound Culture [facility] Start: 05-11-2025 Wound Culture Wound Culture [facility] Start: 05-11-2025 Wound care [facility] Start: 05-11-2025 Ankle brachial pressure index [facility] Start: 05-11-2025 End: 05-11-2025 [facility] Start: 05-11-2025 Bacterial nucleic acid assay [facility] Start: 05-11-2025 Consultation [facility] Start: 05-11-2025 Source specific culture [facility] Start: 05-10-2025 Following clinical pathway protocol [facility] Start: 05-10-2025 Assessment of risk of venous thromboembolism [facility] Start: 05-10-2025 Care regimes management [facility] Start: 05-10-2025 Consultation for treatment [facility] Start: 05-10-2025 Incentive spirometry [facility] Start: 05-10-2025 Inhalation therapy procedure [facility] Start: 05-10-2025 Insertion of catheter into peripheral vein [facility] Start: 05-10-2025 [address]uring intake and output [facility] Start: 05-10-2025 Notification of physician [facility] Start: 05-10-2025 Providing care according to standard [facility] Start: 05-10-2025 Provision of activity privileges [facility] Start: 05-10-2025 Referral for physical therapy [facility] Start: 05-10-2025 Referral to occupational therapist [facility] Start: 05-10-2025 Referral to bdr [facility] Start: 05-10-2025 Referral to service [facility] Start: 05-10-2025 End: 05-10-2025 [facility] Start: 05-10-2025 Admission procedure [facility] Start: 05-10-2025 Verification routine [facility] Start: 05-10-2025 Hospital admission, emergency, from emergency room, medical nature [facility] Start: 05-10-2025 [facility] Start: 01-01-2025 [facility] Start: 03-30-2025 Therapeutic prophylactic/dx injection subq/im THER/PROPH/DIAG INJ SC/IM [facility] Start: 12-23-2024 End: 12-23-2024 [facility] Start: 01-27-2024 Patient discharge [facility] Start: 11-25-2023 Anes lithotrp xtrcorp shock wave w/o water bath ANESTH KIDNEY STONE DESTRUCT [facility] Start: 11-25-2023 Lithotripsy xtrcorp shock wave FRAGMENTING OF KIDNEY STONE [facility] Start: 11-25-2023 Patient discharge [facility] Start: 11-11-2023 Patient discharge [facility] Start: 11-11-2023 Anes trurl fragmntj manj&/rmvl ureteral calculus ANESTH STONE REMOVAL [facility] Start: 11-11-2023 Cysto/uretero w/lithotripsy &indwell stent insrt CYSTO/URETERO W/LITHOTRIPSY [facility] Start: 08-05-2023 Anes lithotrp xtrcorp shock wave w/o water bath ANESTH KIDNEY STONE DESTRUCT [facility] Start: 08-05-2023 Lithotripsy xtrcorp shock wave FRAGMENTING OF KIDNEY STONE [facility] Start: 08-05-2023 Patient discharge [facility] Start: 07-16-2023 Development of care plan [facility] Start: 07-15-2023 Patient discharge [facility] Start: 07-14-2023 Referral to service [facility] Start: 07-13-2023 [facility] Start: 07-13-2023 [facility] Start: 07-13-2023 [facility] Start: 07-06-2023 Removal of urinary catheter [facility] Start: 07-04-2023 Referral to bdr [facility] Start: 07-01-2023 Developing a treatment plan [facility] Start: 07-01-2023 Development of care plan [facility] Start: 06-30-2023 Following clinical pathway protocol [facility] Start: 06-30-2023 Admission procedure [facility] Start: 06-30-[address] output [facility] Start: 06-30-2023 Patient referral to dietitian [facility] Start: 06-30-2023 Referral to occupational therapist [facility] Start: 06-30-2023 Referral to service [facility] Start: 06-30-2023 Vital signs measurements [facility] Start: 06-30-2023 [facility] Start: 06-30-2023 Patient discharge [facility] Start: 06-28-2023 [facility] Start: 06-26-2023 End: 06-27-2023 [facility] Start: 06-26-2023 Following clinical pathway protocol [facility] Start: 06-26-2023 Referral to occupational therapist [facility] Start: 06-26-2023 Referral to service [facility] Start: 06-26-2023 Consultation [facility] Start: 06-26-2023 Enteric precautions [facility] Start: 06-25-2023 Continuous pulse oximetry [facility] Start: 06-25-2023 Dual pressure spontaneous ventilation support [facility] Start: 06-25-2023 Admission procedure [facility] Start: 06-25-2023 Following clinical pathway protocol [facility] Start: 06-25-2023 Assessment of risk of venous thromboembolism [facility] Start: 06-25-2023 Inhalation therapy procedure [facility] Start: 06-25-2023 Insertion of catheter into peripheral vein [facility] Start: 06-25-2023 Oxygen therapy [facility] Start: 06-25-2023 Providing care according to standard [facility] Start: 06-25-2023 Provision of activity privileges [facility] Start: 06-25-2023 Referral to service [facility] Start: 06-25-2023 [facility] Start: 06-25-2023 Physiotherapy of chest [facility] Start: 06-25-2023 Admission procedure [facility] Start: 06-25-2023 Consultation [facility] Start: 07-12-2022 Electrocardiographic procedure [facility] Work Phone: Start: 05-28-2022 Influenza vaccination INFLUENZA (#1) [facility] Start: 03-17-2022 COVID-19 VACCINE (4 - Booster for Luther series) COVID-19 VACCINE (4 - Booster for Luther series) [facility] Start: 09-27-2021 ADVANCE DIRECTIVE DISCUSSION ADVANCE DIRECTIVE DISCUSSION [facility] Start: 09-27-2021 DEPRESSION ASSESSMENT DEPRESSION ASSESSMENT [facility] Start: 07-12-2017 LIPID SCREEN LIPID SCREEN [facility] Start: 07-19-2015 Colonoscopy COLONOSCOPY [facility] Start: 07-19-2015 COLORECTAL CANCER SCREENING COLORECTAL CANCER SCREENING [facility] Start: 07-05-2015 DIABETES SCREEN DIABETES SCREEN [facility] Start: 2014 BONE DENSITY BONE DENSITY [facility] Start: 2014 PNEUMOCOCCAL: 65+ (1 - PCV) PNEUMOCOCCAL: 65+ (1 - PCV) [facility] Start: 07-19-2012 Mammography MAMMOGRAM [facility] Start: 1999 SHINGRIX VACCINE (1 of 2) SHINGRIX VACCINE (1 of 2) [facility] Start: 1994 COLOGUARD (FIT-DNA) COLOGUARD (FIT-DNA) [facility] Start: [address] COLONOGRAPHY [facility] Start: 1994 FECAL OCCULT BLOOD FECAL OCCULT BLOOD [facility] Start: 1994 SIGMOIDOSCOPY SIGMOIDOSCOPY [facility] Start: 02-14-1968 Urine microalbumin profile DTAP,TDAP,TD (1 - Tdap) [facility] Start: 1967 HEPATITIS C SCREENING HEPATITIS C SCREENING [facility] Bacteria identified in Unspecified specimen by Anaerobe culture [facility] Calculus analysis [facility] Measurement of weigh t of calculus [facility] Origin of Stone [facility] Patient Education [facility] Work Phone: Patient referral [facility] Work Phone: Specimen color determination [facility] Wound microscopy, cu lture and sensitivities [facility] Immunizations Immunization Date Immunization Notes Care Provider Fa cility 07-14-2023 Covid (Spikevax) Dr. Corby mehta Work Phone: [facility] 06-27-2023 Influenza High-Dose Quadrivalent Dr. Corby Heller Work Phone: [facility] 01-20-2022 Covid (Moderna) Dr. Corby Heller Work Phone: [facility] 10-21-2021 Uriel (Frankie) Dr. Corby Heller Work Phone: [facility] 04-08-2021 Covid (Peppercoin) [facility] Payers Date Payer Category Payer Self-pay [id number] 2017 Private Health Insurance KEESHA GRIMALDO PPO [id number] 2017-Present [phone] [address] [place] [address] PPO [id number] 2016 Private Health Insurance [id number] 2003 Medicare [id number] 2003 Medicare MEDICARE MEDICAR E A AND B [id number] 2003-Present [phone] [address] [address] [place] [address] Medicare [id number] Unknown [id number] 2.16.840.1.671860.3.579. 2.462 Unknown [id number] 2.16.840.1.416538.3.579. 2.462 Unknown [id number] 2.16.840.1.579545.3.579. 2.462 Unknown [id number] 2.16.840.1.790032.3.579. 2.462 Unknown [id number] 2.16.840.1.052127.3.579. 2.462 Unknown [id number] 2.16.840.1.853221.3.579. 2.462 Unknown [id number] 2.16.840.1.086172.3.579. 2.462 Unknown [id number] 2.16.840.1.408986.3.579. 2.462 Unknown [id number] 2.16.840.1.059658.3.579. 2.462 Unknown [id number] 2.16.840.1.270575.3.579. 2.462 Unknown [id number] 2.16.840.1.521138.3.579. 2.462 Unknown [id number] 2.16.840.1.318143.3.579. 2.462 Unknown [id number] 2.16.840.1.641372.3.579. 2.462 Unknown [id number] 2.16.840.1.179712.3.579. 2.462 Unknown [id number] 2..840.1.907713.3.579. 2.462 Unknown [id number] 2.840.1.592640.3.579. 2.462 Unknown [id number] 2.840.1.285140.3.579. 2.462 Unknown [id number] 2..840.1.080259.3.579. 2.462 Unknown [id number] 2.16.840.1.376957.3.579. 2.462 Unknown [id number] 2..840.1.109815.3.579. 2.462 Unknown [id number] 2.16840.1.213800.3.579. 2.462 Unknown [id number] 2.16.840.1.345197.3.579. 2.462 Unknown [id number]. 2.462 Unknown [id number] 2.16.840.1.573625.3.579. 2.462 Unknown [id number] 2.16.840.1.893707.3.579. 2.462 Unknown [id number] 2.16840.1.441587.3.579. 2.462 Unknown [id number] 2.16.840.1.326076.3.579. 2.462 Unknown [id number] 2.16.840.1.717118.3.579. 2.462 Unknown [id number] 2.16.840.1.557566.3.579. 2.462 Unknown [id number] 2.16.840.1.302355.3.579. 2.462 Unknown [id number] 2.16.840.1.337022.3.579. 2.462 Unknown [id number] 2.16.840.1.088035.3.579. 2.462 Unknown [id number] 2.16.840.1.151286.3.579. 2.462 Unknown [id number] 2.16.840.1.246130.3.579. 2.462 Social History Date Type Detail Facility Start: 06-30-2021 End: 01-21-2024 Tobacco smoking status MAIS Unknown if ever smoked [facility] Start: 1950 Sex Assigned At Female W [facility] Start: 08-04-2022 End: 06-16-2025 Tobacco smoking status MAIS Never smoked tobacco [facility] Start: 08-04-2022 Tobacco use and exposure Smokeless tobacco non-user [facility] Start: 08-04-2022 Alcohol intake Current drinke r of alcohol (finding) [facility] Start: 06-09-2012 Alcohol Comment social only (1 2 drinks per year) [facility] Start: 1950 Sex Assigned At Not on file C [facility] Start: 12-06-2024 End: 12-29-2024 Sex Female (finding) [facility] Sex Female [facility] Medical Equipment Procedure Code Equipment Code Equipment Origin al Text Equipment Identifier Dates Lithotripsy, ESWL Polymeric uret eral stent ()[id number] FDA Start: 11-11-2023 Cystoscopy, with retrograde pyelogram, ureteroscopy, laser procedure, and stent inser Polymeric ureteral stent ()[id number] FDA Start: 01-27-2024 Cystoscopic insertion of [...] Assessment Result Facility 05-15-2025 Functional status Ambulates [facility] Work Phone: 05-11-2025 Functional status Bedrest [facility] Work Phone: 08-05-2023 Functional status Ambulates;Bedside Commo de [facility] Work Phone: 07-15-2023 Functional status Up ad gian [facility] Work Phone: 07-14-2023 Functional status Assistive Silvina josselin Standard Walker [facility] Work Phone: 07-13-2023 Functional status Tolerates Activity Fair [facility] Work Phone: 06-30-2023 Functional status Bedrest [facility] Work Phone: Mental Status Date Assessment Result Facility 05-15-2025 Cognitive function Voice/Name [facility] Work Phone: 05-11-2025 Cognitive function Voice/Name [facility] Work Phone: 12-28-2024 Cognitive function Awake;Alert;A ppropriate;Follow s Commands [facility] Work Phone: 12-27-2024 Cognitive function Voice/Name [facility] Work Phone: 12-26-2024 Cognitive function Awake;Alert;A ppropriate;Follow s Commands [facility] Work Phone: 12-25-2024 Cognitive function Voice/Name [facility] Work Phone: 12-23-2024 Cognitive function Level Of Cons ciousness Awake;Alert;Appropriate;Follow s Commands [facility] Work Phone: 12-22-2024 Cognitive function Voice/Name [facility] Work Phone: 01-27-2024 Cognitive function Level Of Cons ciousness Appropriate;Drowsy [facility] Work Phone: 01-27-2024 Cognitive function Voice/Name [facility] Work Phone: 11-25-2023 Cognitive function Voice/Name [facility] Work Phone: 11-25-2023 Cognitive function Patient Orien tation Person;Place;Time [facility] Work Phone: 11-11-2023 Cognitive function Voice/Name [facility] Work Phone: 08-05-2023 Cognitive function Voice/Name [facility] Work Phone: 08-05-2023 Cognitive function Patient Orien tation Person;Place;Time [facility] Work Phone: 07-15-2023 Cognitive function Voice/Name;Touch/Jesseki ng [facility] Work Phone: 07-10-2023 Cognitive function Appropriate;Cooperativ e [facility] Work Phone: 06-30-2023 Cognitive function Voice/Name [facility] Work Phone: Clinical Notes 08-04-2022 to 06-16-2025 Note Date & Type Note Facility 06-16-2025 Discharge summary [facility] 06-16-2025 Radiology Diagnostic study note [facility] Imaging Services [address] [place] [address] Chest PA and Lateral MR#: [id number] Acct: [id number] Name: EDUAR CABRERA Rep #: [id number] : 1950 F 75 From: Jorge Raymundo MD PCP: Dr. Corby Heller MD Status: REG E R Study:Chest PA and Lateral Date of Exam: 06/16/25 Exam# [id number] Ordering Dr: Jalen Delgado DO PROCEDURE: CHEST PA AND LATERAL 06/16/2025 REASON FOR EXAM: COUGH TECHNIQUE: Procedure Code: RADCXR Modality: DX Procedure: CHEST PA AND LATERAL COMPARISON: Chest x-ray 12/18/2024. FINDINGS: Hardware: Monitor electrodes overlie the chest. Heart: The heart is borderline in size. Tortuosity of the thoracic aorta. Mediastinum: Unremarkable. Lungs: Airspace densities in the lower lungs may represent pulmonary edema or pneumonia. Obliteration of the costophrenic angles consistent with small pleural effusions. Bones: No cardiopulmonary abnormalities. RAD/Chest PA and Lateral IMPRESSION: Airspace densities in the lower lungs may represent pulmonary edema or pneumonia. Small pleural effusions. Reading Location: [facility] CC: Dr. Jalen Delgado DO; Dr. Corby Heller MD ~ Supervisor Telephone Information: Signed [facility] 05-15-2025 Discharge summary Note Date/Time May 15, 2025 10:52am [facility] Medical Records Department [address] [place] [address] Discharge Summary 05/15/25 1044 MR#: [id number] Acct: [id number] Name: EDUAR CABRERA Rep #:[id number] : 1950 75 From: Flaco Yang MD PCP: Dr. Corby Heller MD Status:ADM I N Location: [place] [address] Providers Date of Admission: 05/10/25 Date of Discharge: 05/15/25 Primary Care Physician: Dr. Corby Heller MD Consultations 05/10/25 20:40 Consult: Onc/Wound/advanced registered nurse Routine Comment: Reason for Consult:: Diabetic foot [...] mg PO QHS RLS 06/25/23 glucosamine 375 cw-zdhiepscc-hxz no1 500 mg-C 15 mg-gianni 0.5 mg tablet (Gmxjgldcqnx-Xjhlcpipzee-EIX Complex) 3 tab PO DAILY joints 08/02/23 [...] PO BID Patient Comments: WITH EACH MEAL Vupjttlioso-Hbyje-RJY Complex 732-013-32-0.5 mg tablet 3 tab PO DAILY cranberry [...] Health Service Charges/Coding Visit Charges Inpatient E&M: 15687 Disch Hosp >30min 05/15/25 1052 <Electronically signed by Flaco Yang MD> Cosigner Signature (if applicable): CC: Dr. Flaco Yang MD; Dr. Corby Heller MD~ Signed [facility] Work Phone: 1(609) 619-854208-19-2025 Discharge summary [facility] Medical Records Department [address] [place] [address] Discharge Summary 05/15/25 1044 MR#: [id number] Acct: [id number] Name: EDUAR CABRERA Rep #:[id number] : 1950 75 From: Flaco Yang MD PCP: Dr. Corby Heller MD Status:ADM I N Location: [place] [address] Providers Date of Admission: 05/10/25 Date of Discharge: 05/15/25 Primary Care Physician: Dr. Corby Heller MD Consultations 05/10/25 20:40 Consult: Onc/Wound/advanced registered nurse Routine Comment: Reason for Consult:: Diabetic foot [...] mg PO QHS RLS 06/25/23 glucosamine 375 ry-qnifsnqtn-esy no1 500 mg-C 15 mg-gianni 0.5 mg tablet (Xmkokiqccqi-Tyaznowhxcf-YIAKqbfnpg) 3 tab PO DAILY joints 08/02/23 metformin [...] inhaler 1 puff inhalation Q4H PRNshortness of epsvxv44/23/24 polysaccharide iron complex 150 mg iron capsule [...] PO BID Patient Comments: WITH EACH MEAL Xdnzcxpuzri-Kcnss-AFD Complex 817-615-80-0.5 mg tablet 3 tab PO DAILY cranberry [...] Health Service Charges/Coding Visit Charges Inpatient E&M: 07808 Disch Hosp >30min 05/15/25 1052 Cosigner Signature (if applicable): CC: Dr. Flaco Yang MD; Dr. Corby Heller MD~ Signed [facility]19[facility] Progress [facility] Note Date/Time May 14, 2025 5: 12pm [facility] Medical Records Department [address] [place] [address] Progress Note 05/14/25 1707 MR#: [id number] Acct: [id number] Name: EDUAR CABRERA Rep #:[id number] : 1950 75 From: Luis Bhardwaj DPM PCP: Dr. Corby Heller MD Status:ADM I N Location: [place] [address] Subjective Subjective Patient was seen today for [...] 05/14/25 14:32 05/14/25 14:29 05/14/25 14:29 05/14/25 14:05/14/25 02:40 Oxygen Flow Rate (L/min) 1 Oxygen [...] % (Auto) 56.9, Lymph % (Auto) 19.5, [place] % (Auto) 7.9, Eos % (Auto) 13.9 [...] in transit. Podiatry will continue to follow. 05/14/251711 <Electronically signed by Luis Bhardwaj DPM> Luis Bhardwaj DPM Cosigner Signature (if applicable): CC: ~ Signed [facility] Work Phone: 1(214) 100-735408-18-2025 Progress note Author Hari Miranda [facility] Note Date/Time May 14, 2025 4: 51pm [facility] Medical Records Department [address] [place] [address] Progress Note - Hospitalist 05/14/25 1646 MR#: [id number] Acct: [id number] Name: EDUAR CABRERA Rep #:[id number] : 1950 75 From: Hari Whelan PCP: Dr. Corby Heller MD Status:ADM I N Location: [place] [address] Reason for Visit Chief Complaint: Left toe [...] % (Auto) 56.9, Lymph % (Auto) 19.5, [place] % (Auto) 7.9, Eos % (Auto) 13.9 [...] to Unasyn. Was seen and examined with bdr. Further plan after MRI. Culture was taken [...] probably on Wednesday with opinion from ID legal nurse consultant. 05/13: Continue antibiotic doxycycline and Unasyn. [...] % (Auto) 56.9, Lymph % (Auto) 19.5, [place] % (Auto) 7.9, Eos % (Auto) 13.9 [...] tissue swelling Charges/Coding Visit Charges Inpatient E&M: 57838 Subs Hosp L2 05/14/25 1651 <Electronically signed by Hari Miranda MD> Cosigner Signature (if applicable): CC: ~ Signed [facility] Work Phone: 1(572) 687-322008-18-2025 Progress note [facility] Medical Records Department [address] [place] [address] Progress Note 05/14/25 1707 MR#: [id number] Acct: [id number] Name: EDUAR CABRERA Rep #:[id number] : 1950 75 From: Luis Bhardwaj DPM PCP: Dr. Corby Heller MD Status:ADM I N Location: [place] [address] Subjective Subjective Patient was seen today for [...] % (Auto) 56.9, Lymph % (Auto) 19.5, [place] % (Auto) 7.9, Eos % (Auto) 13.9 [...] in transit. Podiatry will continue to follow. 05/14/251711 Luis Castillo Signature (if applicable): CC: ~ Signed [facility]08-18-2025 Progress note [facility] Medical Records Department [address] [place] [address] Progress Note - Hospitalist 05/14/25 1646 MR#: [id number] Acct: [id number] Name: EDUAR CABRERA Rep #:[id number] : 1950 75 From: Hari Whelan PCP: Dr. Corby Heller MD Status:ADM I N Location: [place] [address] Reason for Visit Chief Complaint: Left toe [...] % (Auto) 56.9, Lymph % (Auto) 19.5, [place] % (Auto) 7.9, Eos % (Auto) 13.9 [...] to Unasyn. Was seen and examined with bdr. Further plan after MRI. Culture was taken [...] probably on Wednesday with opinion from ID legal nurse consultant. 05/13: Continue antibiotic doxycycline and Unasyn. [...] % (Auto) 56.9, Lymph % (Auto) 19.5, [place] % (Auto) 7.9, Eos % (Auto) 13.9 [...] tissue swelling Charges/Coding Visit Charges Inpatient E&M: 02709 Subs Hosp L2 05/14/25 1651 Cosigner Signature (if applicable): CC: ~ Signed [facility]08-18-2025 Progress note Author Rob Krishnamurthy [facility] Note Date/Time May 14, 2025 1: 06pm [facility] Medical Records Department [address] [place] [address] Progress Note - Infect Disease 05/14/25 1304 MR#: [id number] Acct: [id number] Name: EDUAR CABRERA Rep #:[id number] : 1950 75 From: Rob hankins MD PCP: Dr. Corby Heller MD Status:ADM I N Location: [place] [address] Physical Exam Narrative Feeling better, some cough [...] Cosigner Signature (if applicable): CC: ~ Signed [facility] Work Phone: 1(885) 764-725108-18-2025 Progress note [facility] Medical Records Department [address] [place] [address] Progress Note - Infect Disease 05/14/25 1304 MR#: [id number] Acct: [id number] Name: EDUAR CABRERA Rep #:[id number] : 1950 75 From: Rob hankins MD PCP: Dr. Corby Heller MD Status:ADM I N Location: [place] [address] Physical Exam Narrative Feeling better, some cough [...] Cosigner Signature (if applicable): CC: ~ Signed [facility]08-17-2025 Progress note Author Hari Miranda [facility] Note Date/Time May 13, 2025 11 :54am [facility] Medical Records Department [address] [place] [address] Progress Note - Hospitalist 05/13/25 1149 MR#: [id number] Acct: [id number] Name: EDUAR CABRERA Rep #:[id number] : 1950 75 From: Hari Whelan PCP: Dr. Corby Heller MD Status:ADM I N Location: [place] [address] Reason for Visit Chief Complaint: Left toe [...] Narrative Seen and examined Patient and the bdr agreed for IV antibiotic treatment. No surgery [...] to Unasyn. Was seen and examined with bdr. Further plan after MRI. Culture was taken [...] probably on Wednesday with opinion from ID legal nurse consultant. 05/13: Continue antibiotic doxycycline and Unasyn. [...] tissue swelling Charges/Coding Visit Charges Inpatient E&M: 41681 Subs Hosp L2 05/13/25 1154 <Electronically signed by Hari Miranda MD> Cosigner Signature (if applicable): CC: ~ Signed [facility] Work Phone: 1(206) 232-281308-17-2025 Progress note Author Luis Bhardwaj [facility] Note Date/Time May 13, 2025 11 :27am [facility] Medical Records Department [address] [place] [address] Progress Note 05/13/25 1105 MR#: [id number] Acct: [id number] Name: EDUAR CABRERA Rep #:[id number] : 1950 75 From: Luis Bhardwaj DPM PCP: Dr. Corby Heller MD Status:ADM I N Location: [place] [address]- Subjective Subjective Patient was seen today for [...] Cosigner Signature (if applicable): CC: ~ Signed [facility] Work Phone: 1(427) 864-395208-17-2025 Progress note [facility] Medical Records Department [address] [place] [address] Progress Note - Hospitalist 05/13/25 1149 MR#: [id number] Acct: [id number] Name: EDUAR CABRERA Rep #:[id number] : 1950 75 From: Hari Whelan PCP: Dr. Corby Heller MD Status:ADM I N Location: [place] [address] Reason for Visit Chief Complaint: Left toe [...] Narrative Seen and examined Patient and the bdr agreed for IV antibiotic treatment. No surgery [...] to Unasyn. Was seen and examined with bdr. Further plan after MRI. Culture was taken [...] probably on Wednesday with opinion from ID legal nurse consultant. 05/13: Continue antibiotic doxycycline and Unasyn. [...] tissue swelling Charges/Coding Visit Charges Inpatient E&M: 67160 Subs Hosp L2 05/13/25 1154 Cosigner Signature (if applicable): CC: ~ Signed [facility]08-17-2025 Progress note [facility] Medical Records Department [address] [place] [address] Progress Note 05/13/25 1105 MR#: [id number] Acct: [id number] Name: EDUAR CABRERA Rep #:[id number] : 1950 75 From: Luis Bhardwaj DPM PCP: Dr. Corby Heller MD Status:ADM I N Location: [place] [address] Subjective Subjective Patient was seen today for [...] Cosigner Signature (if applicable): CC: ~ Signed [facility]08-16-2025 Progress note Author Hari Miranda [facility] Note Date/Time May 12, 2025 3: 02pm [facility] Medical Records Department [address] [place] [address] Progress Note - Hospitalist 05/12/25 1456 MR#: [id number] Acct: [id number] Name: EDUAR CABRERA Rep #:[id number] : 1950 75 From: Hari Whelan PCP: Dr. Corby Heller MD Status:ADM I N Location: [place] [address] Reason for Visit Chief Complaint: Left toe [...] (Auto) 56.2, Lymph % (Auto) 17.4 L, [place] % (Auto) 7.6, Eos % (Auto) 17.1 [...] tarsometatarsal and intertarsal joints effusion. Reading Location: [place] [address] Physical Exam Narrative Seen and examined with the bdr Dr. Bhardwaj Patient stated she does not [...] to Unasyn. Was seen and examined with bdr. Further plan after MRI. Culture was taken [...] probably on Wednesday with opinion from ID legal nurse consultant. # Intermittent tachycardia -Patient has intermittently [...] (Auto) 68.1, Lymph % (Auto) 17.4 L, [place] % (Auto) 6.7, Eos % (Auto) 6.7 [...] (Auto) 68.5, Lymph % (Auto) 14.5 L, [place] % (Auto) 6.9, Eos % (Auto) 8.9 [...] tissue swelling Charges/Coding Visit Charges Inpatient E&M: 25538 Subs Hosp L2 05/12/25 1502 <Electronically signed by Hari Miranda MD> Cosigner Signature (if applicable): CC: ~ Signed [facility] Work Phone: 1(811) 114-255308-16-2025 Progress note [facility] Medical Records Department [address] [place] [address] Progress Note - Hospitalist 05/12/25 1456 MR#: [id number] Acct: [id number] Name: EDUAR CABRERA Rep #:[id number] : 1950 75 From: Hari Whelan PCP: Dr. Corby Heller MD Status:ADM I N Location: [place] [address] Reason for Visit Chief Complaint: Left toe [...] (Auto) 56.2, Lymph % (Auto) 17.4 L, [place] % (Auto) 7.6, Eos % (Auto) 17.1 [...] tarsometatarsal and intertarsal joints effusion. Reading Location: [place] [address] Physical Exam Narrative Seen and examined with the bdr Dr. Bhardwaj Patient stated she does not like poking her finger therefore does not Glucocheckand wants continuous glucose monitoring device and is talked to her PCP Dr. Bloom that. Left fifth toe has medial side [...] to Unasyn. Was seen and examined with bdr. Further plan after MRI. Culture was taken [...] probably on Wednesday with opinion from ID legal nurse consultant. # Intermittent tachycardia -Patient has intermittently [...] (Auto) 68.1, Lymph % (Auto) 17.4 L, [place] % (Auto) 6.7, Eos % (Auto) 6.7 [...] (Auto) 68.5, Lymph % (Auto) 14.5 L, [place] % (Auto) 6.9, Eos % (Auto) 8.9 [...] tissue swelling Charges/Coding Visit Charges Inpatient E&M: 90663 Subs Hosp L2 05/12/25 1502 Cosigner Signature (if applicable): CC: ~ Signed [facility]08-16-2025 Progress note Author Luis Bhardwaj [facility] Note Date/Time May 12, 2025 12 :23pm [facility] Medical Records Department [address] [place] [address] Progress Note 05/12/25 1101 MR#: [id number] Acct: [id number] Name: EDUAR CABRERA Rep #:[id number] : 1950 75 From: Luis Bhardwaj DPAbdias PCP: Dr. Corby Heller MD Status:ADM I N Location: [place] [address] Subjective Subjective Patient was seen today for [...] (Auto) 56.2, Lymph % (Auto) 17.4 L, [place] % (Auto) 7.6, Eos % (Auto) 17.1 [...] tarsometatarsal and intertarsal joints effusion. Reading Location: [place] [address] Physical Exam Const alert, oriented x3 and [...] Cosigner Signature (if applicable): CC: ~ Signed [facility] Work Phone: 1(744) 856-795208-16-2025 Progress note [facility] Medical Records Department [address] [place] [address] Progress Note 05/12/25 1101 MR#: [id number] Acct: [id number] Name: EDUAR CABRERA Rep #:[id number] : 1950 75 From: Luis Bhardwaj DPM PCP: Dr. Corby Heller MD Status:ADM I N Location: [place] [address] Subjective Subjective Patient was seen today for [...] (Auto) 56.2, Lymph % (Auto) 17.4 L, [place] % (Auto) 7.6, Eos % (Auto) 17.1 [...] tarsometatarsal and intertarsal joints effusion. Reading Location: [place] [address] Physical Exam Const alert, oriented x3 and [...] Cosigner Signature (if applicable): CC: ~ Signed [facility]08-15-2025 Progress note Author Hari Miranda [facility] Note Date/Time May 11, 2025 3: 54pm [facility] Medical Records Department [address] [place] [address] Progress Note - Hospitalist 05/11/25 0758 MR#: [id number] Acct: [id number] Name: EDUAR CABRERA Rep #:[id number] : 1950 75 From: Hari Whelan PCP: Dr. Corby Heller MD Status:ADM I N Location: [place] [address] Reason for Visit Chief Complaint: Left toe [...] (Auto) 68.1, Lymph % (Auto) 17.4 L, [place] % (Auto) 6.7, Eos % (Auto) 6.7 [...] (Auto) 68.5, Lymph % (Auto) 14.5 L, [place] % (Auto) 6.9, Eos % (Auto) 8.9 H, Baso % (Auto) 0.4, Absolute Neuts (auto) 7.5, Absolute Lymphs (auto) 1.59, Nucleated RBC % 0, ESR 26 05/11/25 06:36: POC Glucose 113 H Radiography Diagnostic Testing: Radiology Impression Foot X-Ray 05/10/25 15:20 IMPRESSION: Profound osteopenia, no demonstrated fracture, please see discussion above Polyarticular arthrosis Calcaneal spurs Soft tissue swelling Reading Location: [facility] Physical Exam Narrative Seen and examined with the bdr Dr. Bhardwaj Patient stated she does not [...] to Unasyn. Was seen and examined with bdr. Further plan after MRI. Culture was taken [...] (Auto) 68.1, Lymph % (Auto) 17.4 L, [place] % (Auto) 6.7, Eos % (Auto) 6.7 [...] (Auto) 68.5, Lymph % (Auto) 14.5 L, [place] % (Auto) 6.9, Eos % (Auto) 8.9 [...] tissue swelling Charges/Coding Visit Charges Inpatient E&M: 86707 Subs Hosp L2 05/11/25 1554 <Electronically signed by Hari Miranda MD> Cosigner Signature (if applicable): CC: ~ Signed [facility] Work Phone: 1(323) 935-191108-15-2025 Progress note [facility] Medical Records Department [address] [place] [address] Progress Note - Hospitalist 05/11/25 0758 MR#: [id number] Acct: [id number] Name: EDUAR CABRERA Rep #:[id number] : 1950 75 From: Hari Whelan PCP: Dr. Corby Heller MD Status:ADM I N Location: [place] [address] Reason for Visit Chief Complaint: Left toe [...] (Auto) 68.1, Lymph % (Auto) 17.4 L, [place] % (Auto) 6.7, Eos % (Auto) 6.7 [...] (Auto) 68.5, Lymph % (Auto) 14.5 L, [place] % (Auto) 6.9, Eos % (Auto) 8.9 H, Baso % (Auto) 0.4, Absolute Neuts (auto) 7.5, Absolute Lymphs (auto) 1.59, Nucleated RBC % 0, ESR 26 05/11/25 06:36: POC Glucose 113 H Radiography Diagnostic Testing: Radiology Impression Foot X-Ray 05/10/25 15:20 IMPRESSION: Profound osteopenia, no demonstrated fracture, please see discussion above Polyarticular arthrosis Calcaneal spurs Soft tissue swelling Reading Location: [facility] Physical Exam Narrative Seen and examined with the bdr Dr. Bhardwaj Patient stated she does not [...] to Unasyn. Was seen and examined with bdr. Further plan after MRI. Culture was taken [...] (Auto) 68.1, Lymph % (Auto) 17.4 L, [place] % (Auto) 6.7, Eos % (Auto) 6.7 [...] (Auto) 68.5, Lymph % (Auto) 14.5 L, [place] % (Auto) 6.9, Eos % (Auto) 8.9 [...] tissue swelling Charges/Coding Visit Charges Inpatient E&M: 82477 Subs Hosp L2 05/11/25 4963 Cosigner Signature (if applicable): CC: ~ Signed [facility]08-15-2025 Consult note Author Jalen Spence [facility] Note Date/Time May 11, 2025 1: 23pm [facility] Medical Records Department [address] [place] [address] Pharmacokinetic/Renal -Consult 05/10/252148 MR#: [id number] Acct: [id number] Name: EDUAR CABRERA Rep #:[id number] : 1950 75 From: Jalen Spence PCP: Dr. Corby Heller MD Status:ADM I N Y Location: [place] [address] Consult Antibiotic Management Pharmacy has been consulted [...] Date Holly Lopez MD CC: ~ Signed [facility] Work Phone: 1(783) 730-812908-15-2025 Consult note Author Rob Krishnamurthy [facility] Note Date/Time May 11, 2025 12 :52pm [facility] Medical Records Department [address] [place] [address] Consultation - Infectious Dx 05/11/25 1249 MR#: [id number] Acct: [id number] Name: EDUAR CABRERA Rep #:[id number] : 1950 75 From: Rob hankins MD PCP: Dr. Corby Heller MD Status:ADM I N Location: [place] [address] Assessment & Plan Assessment/Plan (1) Diabetic foot [...] performed and neg except as noted above. [facility] Medical History History of ESBL Klebsiella [...] PO QHS RLS 06/25/2301/18 History glucosamine 375 wc-pitjslnbl-wkb 3 tab PO DAILY joints 08/02/23 05/31/24 History no1 500 mg-C 15 mg-gianni 0.5 mg tablet (Vaywalenhmm-Wnxceifzeut-RJE Complex) metformin 500 mg tablet 500 mg [...] (Auto) 68.1, Lymph % (Auto) 17.4 L, [place] % (Auto) 6.7, Eos % (Auto) 6.7 [...] (Auto) 68.5, Lymph % (Auto) 14.5 L, [place] % (Auto) 6.9, Eos % (Auto) 8.9 [...] Calcaneal spurs Soft tissue swelling Reading Location: [facility] 05/11/25 1252 <Electronically signed by Rob Krishnamurthy MD> Cosigner Signature (if applicable): CC: Dr. Corby Heller MD~ Signed [facility] Work Phone: 1(370) 615-433108-15-2025 Consult note [facility] Medical Records Department [address] [place] [address] Pharmacokinetic/Renal -Consult 05/10/252148 MR#: [id number] Acct: [id number] Name: EDUAR CABRERA Rep #:[id number] : 1950 75 From: Jalen Spence PCP: Dr. Corby Heller MD Status:ADM I N Y Location: [place] [address] Consult Antibiotic Management Pharmacy has been consulted [...] Date _ Jalen Spence 05/11/25 1323 MD> Anna Signature (if applicable): Date Holly Lopez MD CC: ~ Signed [facility]08-15-2025 Consult note [facility] Medical Records Department [address] [place] [address] Consultation - Infectious Dx 05/11/25 1249 MR#: [id number] Acct: [id number] Name: EDUAR CABRERA Rep #:[id number] : 1950 75 From: Rob hankins MD PCP: Dr. Corby Heller MD Status:ADM I N Location: [place] [address] Assessment & Plan Assessment/Plan (1) Diabetic foot [...] performed and neg except as noted above. [facility] History History of ESBL Klebsiella pneumoniae [...] PO QHS RLS 06/25/2301/18 History glucosamine 375 rg-sczblpkpv-adj 3 tab PO DAILY joints 08/02/23 05/31/24 History no1 500 mg-C 15 mg-gianni 0.5 mg tablet (Mufwvzonicu-Gtceplbhvgx-EDO Complex) metformin 500 mg tablet 500 mg [...] (Auto) 68.1, Lymph % (Auto) 17.4 L, [place] % (Auto) 6.7, Eos % (Auto) 6.7 [...] (Auto) 68.5, Lymph % (Auto) 14.5 L, [place] % (Auto) 6.9, Eos % (Auto) 8.9 [...] Calcaneal spurs Soft tissue swelling Reading Location: [id number] 05/11/25 1252 Cosigner Signature (if applicable): CC: Dr. Corby Heller MD~ Signed [facility]08-15-2025 Consult note Author [facility] Note Date/Time May 11, 2025 9: 49am [facility] Medical Records Department [address] [place] [address] Consultation 05/11/25 0938 MR#: [id number] Acct: [id number] Name: EDUAR CABRERA Rep #:[id number] : 1950 75 From: Luis Bhardwaj DPM PCP: Dr. Corby Heller MD Status:ADM I N Location: [place] [address] Assessment & Plan Assessment/Plan (1) Type 2 [...] Left 5th toe infection HPI Narrative: EDUAR ACBRERA, is a 75 F who presented to [...] relates toe is feeling and looking better. [facility] Medical History History of ESBL Klebsiella [...] PO QHS RLS 06/25/2301/18 History glucosamine 375 ki-ictmdbvhf-ech 3 tab PO DAILY joints 08/02/23 05/31/24 History no1 500 mg-C 15 mg-gianni 0.5 mg tablet (Fgbheqdobhu-Uldlmwujhgb-OJE Complex) metformin 500 mg tablet 500 mg [...] (Auto) 68.1, Lymph % (Auto) 17.4 L, [place] % (Auto) 6.7, Eos % (Auto) 6.7 [...] (Auto) 68.5, Lymph % (Auto) 14.5 L, [place] % (Auto) 6.9, Eos % (Auto) 8.9 [...] Calcaneal spurs Soft tissue swelling Reading Location: [facility] 05/11/25 0949 <Electronically signed by Luis Bhardwaj DPM> Cosigner Signature (if applicable): CC: Dr. Cobry Heller MD~ Signed [facility] Work Phone: 1(940) 630-497608-15-2025 Consult note [facility] Medical Records Department [address] [place] [address] Consultation 05/11/2538 MR#: [id number] Acct: [id number] Name: EDUAR CABRERA Rep #:[id number] : 1950 75 From: Luis Bhardwaj DPM PCP: Dr. Corby Heller MD Status:ADM I N Location: [place] [address] Assessment & Plan Assessment/Plan (1) Type 2 [...] relates toe is feeling and looking better. [facility] Medical History History of ESBL Klebsiella [...] PO QHS RLS 06/25/2301/18 History glucosamine 375 en-qdrilpyfm-dcb 3 tab PO DAILY joints 08/02/23 05/31/24 History no1 500 mg-C 15 mg-gianni 0.5 mg tablet (Hosckjryluz-Enstiepwvtq-TXW Complex) metformin 500 mg tablet 500 mg [...] (Auto) 68.1, Lymph % (Auto) 17.4 L, [place] % (Auto) 6.7, Eos % (Auto) 6.7 [...] (Auto) 68.5, Lymph % (Auto) 14.5 L, [place] % (Auto) 6.9, Eos % (Auto) 8.9 [...] Calcaneal spurs Soft tissue swelling Reading Location: [id number] 05/11/25 0949 Cosigner Signature (if applicable): CC: Dr. Corby Heller MD~ Signed [facility]08-15-2025 [facility]08-15-2025 Discharge summary Author Crow Crabtree [facility] Note Date/Time May 11, 2025 12 :07am [facility] Medical Records Department [address] [place] [address] Emergency Department Summary 05/10/25 MR#: [id number] Acct: [id number] Name: EDUAR CABRERA Rep #:[id number] : 1950 75 From: Crow Morejon PCP: Dr. Corby Heller MD Status:ADM I N Location: [place] [address] HPI History of Present Illness Chief Complaint: [...] PO QHS RLS 06/25/2301/18 History glucosamine 375 la-xcmzisguq-cnh 3 tab PO DAILY joints 08/02/23 05/31/24 History no1 500 mg-C 15 mg-gianni 0.5 mg tablet (Npmjlngbwxj-Sebjixdudvi-AVW Complex) metformin 500 mg tablet 500 mg [...] I did send pictures through backline to bdr Dr. Bhardwaj along with discussion on the [...] patient is asymptomatic. 1850: I spoke with weight tester Dr. Dinh, sent EKG and rhythm strips to him on backline. He reviewed this. Agrees this is likely SVT with abrupt change to normal sinus rhythm. He recommends monitoring as she is asymptomatic. This wasrelayed to hospitalist. Re-evaluation: stable Disposition discussed with patient/family/significant other: Patient Case discussed with consulting clinician: Podiatry, hospitalist, cardiology This note was generated with [employer] dictation software. It may contain incorrectwords, spelling, [...] (Auto) 68.1 Lymph % (Auto) 17.4 L [place] % (Auto) 6.7 Eos % (Auto) 6.7 [...] Calcaneal spurs Soft tissue swelling Reading Location: [id number] Discharge Plan Dx/Rx/DC Orders Clinical Impression: Cellulitis of foot, left, History of diabetes mellitus, Paroxysmal supraventricular tachycardia Disposition Disposition: Acute Care Hospital [facility] Discharge Date/Time: 05/10/25 20:15 What to do if you have Problems For any increased pain, shortness of breath, bleeding, nausea or vomiting, chestpain, or any unexpected problems, contact your Primary Care Provider. Call [facility] ([phone]) or report to the closest Emergency Room. Call 911 if necessary. 05/11/25 0007 <Electronically signed by Crow Morejon> Cosigner Signature (if applicable): CC: Dr. Corby Heller MD ~ Signed [facility] Work Phone: 1(690) 242-391408-15-2025 Discharge summary [facility] Medical Records Department [address] [place] [address] Emergency Department Summary 05/10/25 MR#: [id number] Acct: [id number] Name: EDUAR CABRERA Rep #:[id number] : 1950 75 From: Crow Morejon PCP: Dr. Corby Heller MD Status:ADM I N Location: [address] History of Present Illness Chief Complaint: [...] Denies trauma. Prior similar symptoms: No PFSH [facility] Medical History History of ESBL Klebsiella [...] PO QHS RLS 06/25/2301/18 History glucosamine 375 ty-gselbxhkl-xru 3 tab PO DAILY joints 08/02/23 05/31/24 History no1 500 mg-C 15 mg-gianni 0.5 mg tablet (Ydfrynoafbj-Iymhovfdher-RQX Complex) metformin 500 mg tablet 500 mg [...] she has been given this before. IV Ymadliol31 mg ordered. White count returned 11.6 ESR also elevated at 37. 182: I did send pictures through backline to bdr Dr. Bhardwaj along with discussion on the phone. Agrees with admission with IV antibiotics. He would like MRI in the hospital. He will follow. 183: I spoke with hospitalist Dr. Lopez discussed patient's history of findings along with cardiac dysrhythmia. Discussed red man syndrome. I discussed that cardiology on page for discussion of the transient rhythms that patient is asymptomatic. 185: I spoke with weight tester Dr. Dinh, sent EKG and rhythm strips to him on backline. He reviewed this. Agrees this is likely SVT with abrupt change to normal sinus rhythm. He recommends monitoring as she is asymptomatic. This wasrelayed to hospitalist. Re-evaluation: stable Disposition discussed with patient/family/significant other: Patient Case discussed with consulting clinician: Podiatry, hospitalist, cardiology This note was generated with [employer] dictation software. It may contain incorrectwords, spelling, [...] (Auto) 68.1 Lymph % (Auto) 17.4 L [place] % (Auto) 6.7 Eos % (Auto) 6.7 [...] Calcaneal spurs Soft tissue swelling Reading Location: [facility] Discharge Plan Dx/Rx/DC Orders Clinical Impression: Cellulitis of foot, left, History of diabetes mellitus, Paroxysmal supraventricular tachycardia Disposition Disposition: Acute Care Hospital [facility] Discharge Date/Time: 05/10/25 20:15 What to do if you have Problems For any increased pain, shortness of breath, bleeding, nausea or vomiting, chestpain, or any unexpected problems, contact your Primary Care Provider. Call [facility] ([phone]) or report tothe closest Emergency Room. Call 911 if necessary. 05/11/256 Cosigner Signature (if applicable): CC: Dr. Corby Heller MD ~ Signed [facility]08-14-2025 History and physical note Author Holly Lopez [facility] Note Date/Time May 10, 2025 6: 59pm [facility] Medical Records Department [address] [place] [address] H&P Exam - Hospitalist 05/10/25 1844 MR#: [id number] Acct: [id number] Name: EDUAR CABRERA Rep #:[id number] : 1950 75 From: Holly Lopez MD PCP: Dr. Corby Heller MD Status:ADM I N Location: [place] [id number]- 1 HPI - General General Date of Admission: 05/10/25 Date of Service: 05/10/25 Chief Complaint: Left toe pain and swelling [facility] Narrative EDUAR CABRERA, is a 75-year-old female with a history of SUSAN, depression, hypothyroidism, restless leg syndrome, diabetes, asthma presented [facility] ED 05/10/2025 with worsening pain, redness, and [...] of diabetes and her elevated inflammatory markers bdr contacted and recommended admission, likely MRI, antibiotics and theywill see in consult. Patient received Zosyn and then when vancomycin was running she had episode of red man syndrome, Benadryl given with plans to restart vancomycin at lower rate. Hospitalist contacted for admission. Also ofnote patient had short bursts of tachycardia with rate 130s to 150s that were completely asymptomatic. ED physician reviewed with weight tester on-call and itwas felt that this was [...] changes in her breathing, no chest pain [facility] Medical History History of ESBL Klebsiella [...] PO QHS RLS 06/25/2301/18 History glucosamine 375 xx-pninhrxnj-eba 3 tab PO DAILY 05/31/24 History no1 500 mg-C 15 mg-gianni 0.5 mg tablet (Pstarznpwvr-Doedfxpijfs-IWD Complex) metformin 500 mg tablet 500 mg [...] (vitamin C) 500 1 g PO DAILY 03/28/2 5 Unknown History mg tablet coenzyme Q10 [...] (Auto) 68.1, Lymph % (Auto) 17.4 L, [place] % (Auto) 6.7, Eos % (Auto) 6.7 [...] Calcaneal spurs Soft tissue swelling Reading Location: [facility] Assessment & Plan Assessment/Plan (1) Diabetic foot [...] Lopez MD Charges/Coding Visit Charges Inpatient E&M: 67573 Init Hosp L2 05/10/25 1859 <Electronically signed by Holly Lopez MD> Cosigner Signature (if applicable): CC: Dr. Holly Lopez MD; Dr. Corby Heller MD~ Signed [facility] Work Phone: 1([phone]) 235-210708-14-2025 Evaluation note* Diagnosis Onset Date Resolution Status Admit Date Cellulitis of foot, left acute May 10, [...] evidence of necrosis acute May 10 6:45pm [facility] Work Phone: 1(262) 911-217808-14-2025 History and physical note [facility] Medical Records Department [address] [place] [address] H&P Exam - Hospitalist 05/10/25 1844 MR#: [id number] Acct: [id number] Name: EDUAR CABRERA Rep #:[id number] : 1950 75 From: Holly Lopez MD PCP: Dr. Corby Heller MD Status:ADM I N Location: [place] [address] HPI - General General Date of Admission: 05/10/25 Date of Service: 05/10/25 Chief Complaint: Left toe pain and swelling HPI Narrative EDUAR CABRERA, is a 75-year-old female with a history of SUSAN, depression, hypothyroidism, restless leg syndrome, diabetes, asthma presented [facility] ED 05/10/2025 with worsening pain, redness, and [...] of diabetes and her elevated inflammatory markers bdr contacted and recommended admission, likely MRI, antibiotics and theywill see in consult. Patient received Zosyn and then when vancomycin was running she had episode of red man syndrome, Benadryl given with plans to restart vancomycin atlower rate. Hospitalist contacted for admission. Also ofnote patient had short bursts of tachycardia with rate 130s to 150s that were completely asymptomatic. ED physician reviewed with weight tester on-call and itwas felt that this was [...] No changes inher breathing, no chest pain [facility] Medical History History of ESBL Klebsiella [...] PO QHS RLS 06/25/2301/18 History glucosamine 375 yt-ummcglbat-zjc 3 tab PO DAILY 05/31/24 History no1 500 mg-C 15 mg-gianni 0.5 mg tablet (Bbpvicemqsi-Mgohsjjkiuj-NIR Complex) metformin 500 mg tablet 500 mg [...] (Auto) 68.1, Lymph % (Auto) 17.4 L, [place] % (Auto) 6.7, Eos % (Auto) 6.7 [...] Calcaneal spurs Soft tissue swelling Reading Location: [facility] Assessment & Plan Assessment/Plan (1) Diabetic foot [...] Lopez MD Charges/Coding Visit Charges Inpatient E&M: 61487 Init Hosp L2 05/10/25 1937 Cosigner Signature (if applicable): CC: Dr. Holly Lopez MD; Dr. Corby Heller MD~ Signed [facility]08-14-2025 Radiology Diagnostic study note [facility] Imaging Services [address] [place] [address] Foot min 3 Views MR#: [id number] Acct: [id number] Name: EDUAR CABRERA Rep #: [id number] : 1950 F 75 From: Sharee Clement MD PCP: Dr. Corby Heller MD Status: REG E R Study:Foot min 3 Views Date of Exam: Exam# [id number] Ordering Dr: Crow Crabtree DO PROCEDURE: FOOT [...] Calcaneal spurs Soft tissue swelling Reading Location: [facility] CC: Dr. Corby Heller MD; Dr. 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 Corby Heller MD Status: JOSE A IBARRA Study:Chest PA and Lateral Date of Exam: 12/18/24 Exam# [id number] Ordering Dr: Corby Heller MD EXAM: XR Chest, 2 Views CLINICAL INDICATION: SOB TECHNIQUE: Frontal and lateral views of the chest. COMPARISON: No relevant prior studies available. FINDINGS: LUNGS AND PLEURAL SPACES: Unremarkable. No consolidation. No pneumothorax. HEART: Unremarkable. No cardiomegaly. MEDIASTINUM: Unremarkable. Normal mediastinal contour. BONES/JOINTS: Unremarkable. No acute fracture. RAD/Chest PA and Lateral IMPRESSION: No acute cardiopulmonary process. Reading Location: [facility] CC: Dr. Corby Heller MD ~ Supervisor Telephone Information: Signed [facility]11-15-2024 Evaluation note* Diagnosis Onset Date Resolution Status Admit Date Osteoarthritis of knees, bilateral acute August 11, 024 11:33am Osteoarthritis of knees, bilateral acute August 18 024 11:31am [facility] Work Phone: 1(290) 784-537105-02-2024 Procedure [facility] 01-27-2024 Discharge summary Author Marie Caldera [facility] January 27, 2024 2:15pm Note Date/Time January 27, 2024 11:02a [facility] Medical Records Department [address] [place] [address] Instructions for Home/Discharge Instructions 01/27/24 1101 MR#: [id number] Acct: [id number] Name: EDUAR CABRERA Rep #:[id number] : [...] 100 mg capsule 50 mg PO DAILY Fjzxrputztx-Xiucq-SHY Complex 755-454-91-0.5 mg tablet 3 tab PO DAILY Tart [...] can be placed): Home, Self Care 01/27/24 1115<Electronically signed by Marie Caldera MD>Marie Caldera MD CC: Dr. Corby Heller MD ~ Signed [facility] Work Phone: 1([phone]) 621-354102-29-2024 Discharge summary Author Marie Caldera [facility] November 25, 2023 12:26pm Note Date/Time November 25, 2023 12:20pm [facility] Medical Records Department [address] [place] [address] Instructions for Home/Discharge Instructions 11/25/23 1219 MR#: [id number] Acct: [id number] Name: EDUAR CABRERA Rep #:[id number] : [...] 100 mg capsule 50 mg PO DAILY Tbtqfxgqgcd-Rykmd-JSC Complex 369-228-98-0.5 mg tablet 3 tab PO DAILY Tart [...] tab PO DAILY Referrals / Follow Up: Coryb Heller Chi, MD [Primary Care Provider] - Disposition Disposition (needs filled in before D/C Order can be placed): Home, Self Care 11/25/23 1226<Electronically signed by Marie Caldera MD>Marie Caldera MD CC: Dr. Corby Heller MD ~ Signed [facility] Work Phone: [phone]) 443-676002-29-2024 Procedure [facility] 11-11-2023 Procedure [facility]11-09-2023 Discharge summary Author Marie Caldera [facility] August 05, 2023 9:16am Note Date/Time August 05, 2023 8 :34am [facility] Medical Records Department [address] [place] [address] Instructions for Home/Discharge Instructions 08/05/23 0833 MR#: [id number] Acct: [id number] Name: EDUAR CABRERA Rep #:[id number] : [...] 100 mg capsule 100 mg PO DAILY Sxdvooilcoo-Vbeyv-EMP Complex 869-881-89-0.5 mg tablet 3 tab PO DAILY Tart [...] CC: Dr. Corby Heller MD ~ Signed [facility] Work Phone: [phone] 476-953110-18-2023 Discharge summary Author Corby [facility] July 14, 2023 7:36pm Note Date/Time July 14, 2023 7 :31pm [facility] Medical Records Department [facility] [place] [address] Discharge Summary 07/14/231926 MR#: [id number] Acct: [id number] Name: EDUAR CABRERA Rep #:[id number] : 1950 73 From: Corby Heller MD PCP: Dr. 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 * Allergic [...] on Nitrofurantoin. Discharge home with family 07/15/2023, [facility] PT/OT/CORDON/SW. Physical Exam Const alert [...] Additional Instructions: Discharge home with family 07/15/2023, [facility] PT/OT/OCRDON/SW. Please Follow Up With: Marie Caldera MD When: 1 week. Meaningful Use Info Meaningful Use Diagnoses (Choose all that apply): None applicable Discharge Plan Admission Admit Date/Time: 06/30/23 14:43 Primary Reason for Your Visit: Debility. Attending Provider: Corby Heller Chi Primary Care Provider: Corby Heller Chi Consulting Providers: Luis Bhardwaj Instructions Additional Instructions / Restrictions: Discharge home with family 07/15/2023, [facility] PT/OT/CORDON/SW. Discharge Orders/Prescriptions Prescriptions: New polysaccharide iron [...] applicable): CC: Dr. Corby Heller MD~ Signed [facility] Work Phone: 1([phone]) 731-792110-11-2023 Consult note Author Ryann Geiger [facility] July 07, 2023 7:10pm Note Date/Time July 07, 2023 7 :09pm [facility] Medical Records Department [address] [place] [address] Consultation 07/07/23 1847 MR#: [id number] Acct: [id number] Name: EDUAR CABRERA Rep #:[id number] : 1950 73 From: Ryann eastman DPM PCP: Dr. Corby Heller MD Status:ADM I N Location: [place] [address] Assessment & Plan Assessment/Plan (1) Debility: (2) [...] Jr. Sydni DempseyP.M. [facility] [phone] HPI Consult Data Date of Consult: 07/07/23 HPI Narrative Reason for Consultation: Thickened, elongated toenails 1-5 bilateral. Ingrown toenail b/l hallux HPI Narrative: EDUAR CABRERA, is a 73 F who presents to [facility] transitional care unit for strength and rehabilitation prior to discharge home secondary to fever, cough, and urinary frequency. She was admitted to [facility] 06/25/2023 for treatment of complicated UTI and [...] in addition to bilateral hallux ingrown toenail. [facility] Medical History (Updated 07/07/23 @ 19:[address] Ryann Geiger, DPAbdias) [...] Geiger DPM> Cosigner Signature (if applicable): CC: DPM Dr. Luis Bhardwaj; Dr. Corby Heller MD~ Signed [facility] Work Phone: [phone] Progress note Author Corby Heller [facility] July 01, 2023 5:21pm Note Date/Time July 01, 2023 2: 38pm [facility] Medical Records Department [address] [place] [address] Progress Note - Pharmacy 07/01/23 1408 MR#: [id number] Acct: [id number] Name: EDUAR CABRERA Rep #:[id number] : 1950 73 From: Elgin Humphrey PCP: Dr. Corby Heller MD Status:ADM I N Location: [place] [address] Documented by User: Elgin Humphrey 07/01/23 15:26 [...] 07/01/23 10:00 07/01/23 10:54 Fluticasone 0.05% 1 [place] Nasal.Sry NASAL 2 spray DAILY BARB Administration [...] User: Dr. Corby Heller MD 07/01/23 17:21 TCU RX Drug Regimen Review Provider Comments Provider responsibility Provider Comments to Recommendations by Pharmacy: Agree 07/01/23 1526 <Electronically signed by Elgin Humphrey> Elgin Humphrey Cosignroyal Signature (if applicable): 07/01/23 1721 <Electronically signed by Corby Heller MD> CC: ~ Signed [facility] Work Phone: 1([phone]) 444-256810-04-2023 History and physical note Author Corby Arron [facility] June 30, 2023 9:36pm Note Date/Time June 30, 2023 9: 28pm [facility] Medical Records Department [address] [place] [address] History & Physical Exam 06/30/232115 MR#: [id number] Acct: [id number] Name: EDUAR CABRERA Rep #:[id number] : 1950 73 From: Corby Heller MD PCP: Dr. Corby Heller MD Status:ADM I N Location: [place] [address] HPI - General General Date of Admission: 06/30/23 Date of Service: 06/30/23 Chief Complaint: Here for rehabilitation. HPI Narrative 06/25/2023 EDUAR CABRERA, is a 73 Female who presents to [facility] Emergency Department with fever, cough, urinary frequency. [...] Vancomycin PO for C. diff colitis. 06/29/2023 [place] for right knee pain. Meropenem to Cefdinir for UTI/Pneumonia. Vancomycin PO for C. Diff colitis. No symptoms for covid-19, no remdesivir, no steroids recommended. 06/30/2023 Admit to TCU with debility, here for rehabilitation, strengthening, prior to discharge home with family. 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 * Allergic Rhinitis [...] applicable): CC: Dr. Corby Heller MD~ Signed [facility] Work Phone: 1([phone]) 202-145711-08-2022 NoteHNO ID: [id number] Author: Grisel Villanueva DO Service: Vascular Surgery Author Type: Physician Type: Progress Notes Filed: 08/31/2022 2:37 PM Note Text: NAME: EDUAR CABRERA CLINIC NO: [id number] DATE OF SERVICE: 08/04/2022 Subjective: Eduar is [...] needed. Grisel Villanueva D.O. KB/089 Audio #: [id number] Date Dictated: 08/17/2022 14:07:13 Date Typed: 08/24/2022 05:15:14 Date Revised: 08/24/2022 19:43:54[facility]11-08-2022 NoteHNO ID: [id number] Author: Grisel Villanueva DO Service: ? Author Type: Physician Type: Progress Notes Filed: 08/17/2022 3:07 PM Note Text: This office note has been dictated. [facility] History of Present illness Narrative* Grisel Villanueva DO - 08/04/2022 11:43 AM EST This office note has been dictated. Grisel Villanueva DO documented in this encounterLake[facility] CenterDisgae[facility] summary Author Marie Caldera [facility] November 11, 2023 2:06pm Note Date/Time November 11, 2023 2:04pm [facility] [facility] [address] [place] [id number] Instructions for Home/Discharge Instructions 11/11/23 1403 MR#: [id number] Acct: [id number] Name: EDUAR CABRERA Rep #:[id number] : [...] 100 mg capsule 100 mg PO DAILY Beyqjjjsbaz-Zsobe-RPW Complex [id number] mg tablet 3 tab PO DAILY Tart [...] CC: Dr. Corby Heller MD ~ Signed [facility] Work Phone: Discharge summary Author Jalen Delgado [facility] Note Date/Time June 16, 2025 11:45am [facility] Medical Records Department [address] [place] [address] Emergency Department Summary 06/16/25 MR#: [id number] Acct: [id number] Name: EDUAR CABRERA Rep #:[id number] : 1950 75 From: Jalen Marino PCP: Dr. Corby Heller MD Status:DEP E R Location: ED HPI HPI - URI History of Present Illness Chief Complaint: Cough Onset/Context/Timing Onset: Today Context: Sudden Onset Timing: Continuous Quality: Sharp Location: Left chest Worsened by: - (Coughing, movement) Relieved by: - (Nothing) Associated Symptoms Associated Symptoms: Positive for Nausea, Vomiting, Diarrhea, Chest Pain and Nonproductive cough; Negative for Nasal Congestion, Headache, Sinus Pressure, Myalgias, Shortness of Breath, Hemoptysis or Productive Cough Narrative Narrative: Patient presents with left-sided chest pain that began after coughing. Patient states she had a coughing episode and started having sharp pain in her left chest. Patient states the pain is worse with movement. Patient denies any fevers or chills. Patient denies any sputum production. Patient states she hasbeen having some nausea, vomiting, and diarrhea due to antibiotic use for a boneinfection. Patient states her pain is over her left lower ribs. Patient statesit is worse with coughing. Patient states nothing makes it better. ROS ROS ED Constitutional Constitutional ED: Denies chills or fever(s) Eyes Eyes: Denies blurry vision or change in vision ENT ENT ED: Denies rhinorrhea or sore throat Cardiovascular Cardiovascular: Reports chest pain; Denies palpitations Respiratory/Chest Respiratory/Chest: Reports cough; Denies dyspnea Gastrointestinal Gastrointestinal: Reports diarrhea, nausea and vomiting Genitourinary Genitourinary ED: Reports dysuria; Denies hematuria Musculoskeletal Musculoskeletal: Reports back pain; Denies neck pain Integumentary Denies abscess or rash Neurologic Neurologic: Denies headache(s) or weakness Allergic/Immunologic Allergic/Immunologic ED: Denies mouth swelling or urticaria PFSH PFSH Medical History History of ESBL [...] PO QHS RLS 06/25/2301/18 History glucosamine 375 iu-hrucvifii-ohi 3 tab PO DAILY joints 08/02/23 05/31/24 History no1 500 mg-C 15 mg-gianni 0.5 mg tablet (Mezimnapbsd-Xsjtqsvboxy-QAT Complex) metformin 500 mg tablet 500 mg PO BID dm 08/02/23 History cranberry fruit 400 mg capsule 400 mg PO DAILY health 11/03/23 05/31/24 History vitamin B complex 1 tab PO DAILY health 05/31/24 History budesonide 0.5 mg/2 mL suspension 0.5 mg inhalation Q1 2H PRN PRN 03/23/24 Unknown History for nebulization breathing ipratropium bromide 42 mcg (0.06 2 spray intranasal DA JAYDE sob 06/19/24 Unknown History %) nasal spray levalbuterol tartrate 45 1 puff inhalation Q4H PRN Unknown History mcg/actuation aerosol inhaler shortness of breath polysaccharide iron complex 150 mg 150 mg PO QDAY anem ia 06/19/24 Unknown History iron capsule (Ferrex) ascorbate calcium (vitamin C) 500 500 mg PO DAILY heal th 12/22/24 Unknown History mg tablet coenzyme Q10 100 mg capsule 50 mg PO DAILY health 11/26 05/21 Unknown History (CoQ-10) echinacea 500 mg capsule 1,000 mg PO DAILY health Unknown History melatonin 10 mg capsule 10 mg PO QHS sleep 12/22/24 Unknown History finerenone 20 mg tablet (Kerendia) 20 mg PO DAILY kidn eys 05/11/25 Unknown History amoxicillin 875 mg-potassium 1 tab PO BID 6 weeks #84 tabs 05/15/25 Unknown Rx clavulanate 125 mg tablet doxycycline monohydrate 100 mg 100 mg PO BID 6 weeks # 84 caps 05/15/25 Unknown Rx capsule doxycycline monohydrate 100 mg 100 mg PO BID #14 CAPSU LES 06/16/25 Unknown Rx capsule Allergy/AdvReac Type Severity Reaction Status Date / [...] never substance use type: does not use EXAM Physical Exam Const Vital Signs: 06/16/25 09:01 06/16/25 09:05 06/16/25 10:04 Temperature 99.4 F H 99.3 F H Temperature Source Oral Oral Pulse Rate 89 81 Respiratory Rate 16 16 Respiratory Depth Normal Respiratory Pattern Normal Blood Pressure 131/68 H 124/90 H Blood Pressure Mean 89 101 Pulse Ox 97 96 Oxygen Delivery Method Room Air Room Air Room Air Positive well nourished and well developed Constitutional Narrative: BMI is 50.3. General Appearance ED: well developed and NAD HEENT Reports moist mucous membranes normocephalic and atraumatic Neck supple and no JVD Chest Wall Chest Narrative: There is tenderness over the lateral aspect of the left lower ribs. There is nobony crepitance or step-off. There is no subcutaneous emphysema palpated. Resp normal respiratory effort and clear to auscultation bilaterally Cardio Rate: regular rate Rhythm: regular rhythm GI non-distended Palpation: soft and tender epigastric, LLQ, RLQ, LUQ, RUQ, periumbilical and suprapubic; Negative for guarding Neuro oriented x3, CN's II-XII intact bilaterally and no sensory deficits noted Sensorium / Orientation: alert Psych mental status grossly normal MDM MDM MDM Narrative Medical decision making narrative: Differential diagnosis includes pneumonia, bronchitis, pneumothorax, musculoskeletal strain, urinary tract infection, gastroenteritis, viral illness,electrolyte abnormality, and anxiety. Chest x-ray will be obtained to assess for pneumonia, bronchitis, pneumothorax. CBC will be obtained to assess for leukocytosis and anemia. Basic metabolic profile will be obtained to assess forelectrolyte abnormality and renal function. Urinalysis will be obtained to assess for urinary tract infection and hematuria. History & Record Review Additional record(s) reviewed:: Prior outpatient record, Prior ED visit and Prior labs Lab Data Attestation: I reviewed the patient's lab results. Lab results narrative: CBC was reviewed. There is a mild anemia with a hemoglobin of 10.3 and hematocrit of 32.1. Basic metabolic profile was reviewed. BUN was minimally elevated at 20. Creatinine was normal at 1.05. Urinalysis was reviewed. Leukocyte esterase was 500 with greater than 100 white blood cells and 1+ bacteria. Labs: Laboratory Results - last 24 hr 06/16/25 09:41 WBC 8.7 RBC 3.47 L Hgb 10.3 L Hct 32.1 L MCV 92.5 MCH 29.7 MCHC 32.1 RDW Std Deviation 50.7 H RDW Coeff of Cecil 15.1 H Plt Count 242 MPV 9.6 Immature Gran % (Auto) 0.600 Neut % (Auto) 65.4 Lymph % (Auto) 19.2 [place] % (Auto) 9.6 Eos % (Auto) 4.5 Baso % (Auto) 0.7 Absolute Neuts (auto) 5.7 Absolute Lymphs (auto) 1.68 Nucleated RBC % 0 Sodium 138 Potassium 3.9 Chloride 100 Carbon Dioxide 25.7 Anion Gap 12 BUN 20 H Creatinine 1.05 Estim Creat Clear Calc 53.26 Est GFR (MDRD) Non-Af 55 L BUN/Creatinine Ratio 19.0 Glucose 156 H Calcium 8.5 Urine Color Yellow Urine Clarity Cloudy Urine pH 6.5 Ur Specific [place] 1.010 Urine Protein 30 H Urine Glucose (UA) Normal Urine Ketones Negative Urine Occult Blood 10 H Urine Nitrite Negative Urine Bilirubin Negative Urine Urobilinogen 4 H Ur Leukocyte Esterase 500 H Urine RBC 0 SEEN Urine WBC >100 SEEN Ur Squamous Epith Cells 0-5 SEEN Urine Bacteria 1+ Urine Mucus 0 SEEN Radiography Chest X-Ray - ED: 2 View, Read by ED Physician, Read by Radiologist, Left Infiltrate, Right Effusion and Left Effusion Diagnostic Testing: Clinical Impression(s) from Imaging Studies Chest X-Ray 06/16/25 09:40 IMPRESSION: Airspace densities in the lower lungs may represent pulmonary edema or pneumonia. Small pleural effusions. Reading Location: [facility] and lateral chest x-ray was obtained. There are 2 views. On my independent interpretation, lung oneil showed airspace densities in the lower lungs that could be pneumonia. There are small pleural effusions noted. There is normal cardiac silhouette. Bony thorax is normal. Radiologist also interpreted the x-ray and agrees. Treatment and Re-Evaluation Narrative: Patient was given IV fluids. Patient was ordered a dose of morphine initially. Patient refused this. Patient requested a dose of Toradol instead. After patient's renal functions were resulted, patient was given a dose of Toradol. Patient was also given a dose of Levaquin here. Patient was given a prescription for Levaquin. Patient was instructed to follow-up with her primarycare physician in 5 to 7 days. Patient understood and was agreeable with the plan. All questions were answered. Discharge Plan Triage Chief Complaint: Cough ED Provider: Jalen Delgado Dx/Rx/DC Orders Clinical Impression: Urinary tract infection, Pneumonia Instructions: ED Pneumonia (Adult), ED Cystitis Female Adult Prescriptions: New doxycycline monohydrate 100 mg capsule 100 mg PO BID Qty: 14 0RF No Action polysaccharide iron complex [Ferrex 150] 150 mg [...] PO BID Patient Comments: WITH EACH MEAL Emailopldww-Ffqhw-ORX Complex [id number] mg tablet 3 tab PO DAILY cranberry [...] 20 mg tablet 20 mg PO DAILY doxycycline monohydrate 100 mg Capsule 100 mg PO BID 42 Days Qty: 84 0RF amoxicillin-pot clavulanate 875-125 mg tablet 1 tab PO BID 42 Days Qty: 84 0RF Primary Care Provider: Corby Heller Chi Referrals: Corby Heller Chi, MD [Primary Care Provider, Geriatrics] - 3-5 Days Print Language: French What to do if you have Problems For any increased pain, shortness of breath, bleeding, nausea or vomiting, chestpain, or any unexpected problems, contact your Primary Care Provider. Call [facility] ([phone]) or report to the closest Emergency Room. Call 911 if necessary. 06/16/25 1717 <Electronically signed by Jalen Delgado DO> Cosigner Signature (if applicable): CC: Dr. Corby Heller MD ~ Signed [facility] Work Phone: Evaluation noteNo assessment information available [facility] Work Phone: Evaluation note* Diagnosis Venous (peripheral) insufficiency- Primary Unspecified venous (peripheral) insufficiency [facility] Diagnosis Onset Date Resolution Status Generalized [...] lobe pneumonia re solved Septic shock resolved [facility] Work Phone: Evaluation note* Diagnosis Onset Date [...] solved Septic shock resolved Tinea unguium resolved [facility] Work Phone: Evaluation note* Diagnosis Onset Date [...] solved Septic shock resolved Tinea unguium resolved [facility] Work Phone: Evaluation note* Diagnosis Onset Date Resolution Status Kidney stones acute [facility] Work Phone: History and physical note Author Holly Lopez [facility] Note Date/Time May 10, 2025 6: 59pm [facility] Medical Records Department [address] [place] [id number] H&P Exam - Hospitalist 05/10/25 1844 MR#: [id number] Acct: [id number] Name: EDUAR CABRERA Rep #:[id number] : 1950 75 From: Holly Lopez MD PCP: Dr. Corby Heller MD Status:ADM I N Location: [place] [id number] HPI - General General Date of Admission: 05/10/25 Date of Service: 05/10/25 Chief Complaint: Left toe pain and swelling HPI Narrative EDUAR CABRERA, is a 75-year-old female with a history of SUSAN, depression, hypothyroidism, restless leg syndrome, diabetes, asthma presented [facility] ED 05/10/2025 with worsening pain, redness, and [...] of diabetes and her elevated inflammatory markers bdr contacted and recommended admission, likely MRI, antibiotics and theywill see in consult. Patient received Zosyn and then when vancomycin was running she had episode of red man syndrome, Benadryl given with plans to restart vancomycin at lower rate. Hospitalist contacted for admission. Also ofnote patient had short bursts of tachycardia with rate 130s to 150s that were completely asymptomatic. ED physician reviewed with weight tester on-call and itwas felt that this was [...] changes in her breathing, no chest pain [facility] Medical History History of ESBL Klebsiella [...] PO QHS RLS 06/25/2301/18 History glucosamine 375 oj-lbydscowk-nlq 3 tab PO DAILY 05/31/24 History no1 500 mg-C 15 mg-gianni 0.5 mg tablet (Ijodgtwqpcr-Cqfjyevkgvk-PNO Complex) metformin 500 mg tablet 500 mg PO BID 08/02/2305/31 History cranberry fruit 400 mg capsule 400 mg PO DAILY 4 05/31/24 History vitamin B complex 1 tab PO DAILY 11/23/23 090 01/18 History budesonide 0.5 mg/2 mL suspension 0.5 [...] (Auto) 68.1, Lymph % (Auto) 17.4 L, [place] % (Auto) 6.7, Eos % (Auto) 6.7 [...] Calcaneal spurs Soft tissue swelling Reading Location: [facility] [place] Assessment & Plan Assessment/Plan (1) Diabetic foot [...] Lopez MD Charges/Coding Visit Charges Inpatient E&M: 62856 Init Hosp L2 05/10/25 2804 <Electronically signed by Holly Lopez MD> Cosigner Signature (if applicable): CC: Dr. Holly Lopez MD; Dr. Corby Heller MD~ Signed [facility] Work Phone: Hospital Discharge instructions Additional Instructions Discharge home with family 07/15/2023, Count Includes [facility] PT/OT/CORDON/SW. [facility] Work Phone: Hospital Discharge instructions Additional Instructions Implant Used?: [facility] Work Phone: Hospital Discharge instructions Additional Instructions [facility] Discharge instructions Additional Instructions Please follow-up to the outpatient center to receive your IM injection of ertapenem 1 g. You have 5 more days on your standing order.[facility] Work Phone: Hospital Discharge instructionsAdditional Instructions Date [facility]: [facility]: Reason for referral (narrative)No reason for referral information [facility]WC[facility] Work Phone: Summary Purpose Family History No Family History Records Found Relationship Condition Age at Onset Recorded Date/T nic Not Specified Diabetes mellitus Unknown Hypertension Unknown Advance Directives No Advanced Directives Records Found Advance Directive Response Recorded Date/ Time Living Will No June 30 4:27am Power of Green Jobs Trainer No June 30 4:27am Advance Directive Response Recorded Date/ Time Living Will No July 12 2:44pm Power of Green Jobs Trainer No July 12, 2022 2:44pm Advance Directive Response Recorded Date/ Time Living Will No July 12 1:44pm Power of Green Jobs Trainer No July 12, 2022 1:44pm Advance Directive Response Recorded Date/ Time Living Will No July 01 1:50pm Power of Green Jobs Trainer No July 01 023 1:50pm Advance Directive Response Recorded Date/ Time Living Will No August 02 1:41pm Power of Green Jobs Trainer No August 02, 2023 1:41pm Advance Directive Response Recorded Date/ Time Living Will No November 03 9:55am Power of Green Jobs Trainer No November 03, 2023 9:55am Advance Directive Response Recorded Date/ Time Living Will No November 23 024 8:34am Power of Green Jobs Trainer No November 23, 2023 8:34am Advance Directive Response Recorded Date/ Time Living Will No November 23 024 9:34am Power of Green Jobs Trainer No November 23, 2023 9:34am Advance Directive Response Recorded Date/ Time Living Will No January 21, 2024 9:21am Power of Green Jobs Trainer No January 20 9:21am Advance Directive Response Recorded Date/ Time Living Will No July 19 10:35am Power of Green Jobs Trainer No July 19, 2024 10:35am Advance Directive Response Recorded Date/ Time Living Will No December 23, 2024 1:09pm Do you have a Healthcare Power of Green Jobs Trainer? No December 23, 2024 1:09pm Advance Directive Response Recorded Date/ Time Living Will No December 23, 2024 1:09pm Do you have a Healthcare Power of Green Jobs Trainer? No December 23, 2024 1:09pm Living Will Yes January 01, 2025 3:44pm Do you have a Healthcare Power of Green Jobs Trainer? Yes January 01, 2025 3:44pm Name of Medical Power of Green Jobs Trainer Rosemarie January 01, 2025 3:44pm Advance Directive Response Recorded Date/ Time Do you have a Healthcare Power of Green Jobs Trainer? No May 10, 2025 2:59pm Advance Directive Response Recorded Date/ Time Do you have a Healthcare Power of Green Jobs Trainer? No May 10, 2025 8:41pm Advance Directive Response Recorded Date/ Time Do you have a Healthcare Power of Green Jobs Trainer? No May 10, 2025 8:41pm Do you have a Healthcare Power of Green Jobs Trainer? No June 16, 2025 9:05am Chief Complaint and Reason for Visit Chief [...] EPISO SHANELL OF May 15, 2025 10:44am Chief Complaint Admit Date LEFT DIABETIC FOOT INFECTION BRIEF EPISO SHANELL OF May 10, 2025 6:45pm LEFT DIABETIC FOOT INFECTION BRIEF EPISO SHANELL OF May 11, 2025 7:58am ULCER May 11, 2025 2: 57pm LEFT DIABETIC FOOT INFECTION BRIEF EPISO SHANELL OF May 12, 2025 2:56pm LEFT DIABETIC FOOT INFECTION BRIEF EPISO SHANELL OF May 13, 2025 11:49am LEFT DIABETIC FOOT INFECTION BRIEF EPISO SHANELL OF May 14, 2025 4:46pm LEFT DIABETIC FOOT INFECTION BRIEF EPISO SHANELL OF May 15, 2025 10:44am sob June 16, 2025 9:00am Reason for Visit Admit Date Cellulitis of foot, left May 10 6:45pm Cellulitis of left lower limb April 6:45pm Diabetic foot infection May 10 6:45pm History of diabetes mellitus April 6:45pm Paroxysmal supraventricular tachycardia May 10, 2025 6:45pm Type 2 diabetes mellitus with foot ulcer May 10, 2025 6:45pm Ulcer of left foot with musc le involvement without evidence of necrosis May 10, 2025 6:45pm Additional Source Comments INFORMATION SOURCE (unrecogn ized section and content) DATE CREATED AUTHOR 07/26/2019 [facility] DATE CREATED AUTHOR AUTHOR'S ORGANIZ ATION 09/01/2022 [facility] DATE CREATED AUTHOR AUTHOR'S ORGANIZ ATION 07/03/2025 [facility] Goals (unrecognized section and [...] or prosecute any alcohol or drug abuse patient.[facility] Reason for Visit (unrecogniz ed section and content) Reason Comments Established Patient Care Teams (unrecognized sec tion and content) [employer] Relationship Specialty Start Date End Date Corby [...] Dr. Clementine Prieto , DO Admit Provider, Attending Provide r, Other Provider Active Team Status: Active Member Role Status Dates Dr. Corby Heller MD Primary Care Provider Active Dr. Reji Morillo MD Emergency Provider Active Dr. Clementine Prieto , DO Admit Provider, Other Provider Ac tive Dr. Juan Cerda MD Attending Provider Active Team Status: Active Member Role Status Dates Dr. Cobry Heller MD Primary Care Provider Active Dr. [...] Almazan MD Other Provider Active Rhonda Victoria LANCE CREWMEMBER/MLRS SERGEANT, LANCE CREWMEMBER/MLRS SERGEANT-C Other Provider Active Dr. Zenon Martinez MD Other Provider Active Team Status: Active Member Role Status Dates Dr. Corby Heller MD Primary Care Provider Active Dr. Levi Ramirez MD Attending Provider Active Team Status: Active Member Role Status Dates Dr. oCrby Heller MD Primary Care Provider Active Dr. Reji Morillo MD Emergency Provider Active Dr. Clementine Prieto , Admit Provider, Other Provider Ac tive Dr. Bertram Chatterjee MD Other Provider Active Dr. Lucas Clemons DO Other Provider Active Dr. Josh Petersen MD Other Provider Active Dr. Conner Marie MD Other Provider Active Dr. Cameron Almazan MD Other Provider Active Rhonda Victoria NP, LANCE CREWMEMBER/MLRS SERGEANT-C Other Provider Active Dr. Zenon Martinez MD [...] Almazan MD Other Provider Active Rhonda Victoria LANCE CREWMEMBER/MLRS SERGEANT, LANCE CREWMEMBER/MLRS SERGEANT-C Other Provider Active Team Status: Active Member [...] Almazan MD Other Provider Active Rhonda Victoria LANCE CREWMEMBER/MLRS SERGEANT, LANCE CREWMEMBER/MLRS SERGEANT-C Other Provider Active Team Status: Active Member [...] Almazan MD Other Provider Active Rhonda Victoria LANCE CREWMEMBER/MLRS SERGEANT, LANCE CREWMEMBER/MLRS SERGEANT-C Other Provider Active Dr. Alonso Bautista , [...] Almazan MD Other Provider Active Rhonda Victoria LANCE CREWMEMBER/MLRS SERGEANT, LANCE CREWMEMBER/MLRS SERGEANT-C Other Provider Active Dr. Alonso Bautista , [...] Almazan MD Other Provider Active Rhonda Victoria LANCE CREWMEMBER/MLRS SERGEANT, LANCE CREWMEMBER/MLRS SERGEANT-C Other Provider Active Dr. Zenon Martinez MD Other Provider Active Dr. Alonso Bautista DO Referring Provider Active Team Status: Active Member [...] Almazan MD Other Provider Active Rhonda Victoria LANCE CREWMEMBER/MLRS SERGEANT, LANCE CREWMEMBER/MLRS SERGEANT-C Other Provider Active Dr. Alonso Bautista DO [...] Provider Active Sta rt: May 15, 2025 Team Status: Active Member Role/Relationship Status Dates Dr. Corby Heller MD Primary care physician Active Team Status: Inactive Member Role/Relationship Status Dates Dr. Corby Heller MD Primary care physician Active Start: March 27, 2025 Dr. Marie Caldera MD Attending physician Active Start: March 27, 2025 Team Status: Inactive Member Role/Relationship Status Dates Dr. Corby Heller MD Primary care physician Active Start: May 03, 2025 End: May 03, 2025 Dr. Corby Heller MD Attending physician Active Start: May 03, 2025 End: May 03, 2025 Dr. Bella Prieto DO Nurse Practitioner Active Start: May 03, 2025 End: May 03, 2025 Team Status: Inactive Member Role/Relationship Status Dates Dr. Corby Heller MD Primary care physician Active Start: May 10, 2025 End: May 15, 2025 Dr. Crow Crabtree DO Emergency Department Physician Active Start: May 10, 2025 End: May 15, 2025 Dr. Holly Lopez MD Admitting physician Active Start: May 10, 2025 End: May 15, 2025 Dr. Holly Lopez MD Nurse Practitioner Active Start: May 10, 2025 End: May 15, 2025 Dr. Luis Bhardwaj DPM Nurse Practitioner Active Start: May 10, 2025 End: May 15, 2025 Dr. Rob Krishnamurthy MD Nurse Practitioner Active Start: May 10, 2025 End: May 15, 2025 Dr. Flaco Yang MD Attending physician Active Start: May 10, 2025 End: May 15, 2025 Dr. Hari Miranda MD Nurse Practitioner Active Start: May 10, 2025 End: May 15, 2025 Team Status: Active Member Role/Relationship Status Dates Dr. Corby Heller MD Primary care physician Active Start: May 11, 2025 Dr. Crow Crabtree DO Emergency Department Physician Active Start: May 11, 2025 Dr. Holly Lopez MD Admitting physician Active Start: May 11, 2025 Dr. Holly Lopez MD Nurse Practitioner Active Start: May 11, 2025 Dr. Luis Bhardwaj DPM Nurse Practitioner Active Start: May 11, 2025 Dr. Hari Miranda MD Attending physician Active Start: May 11, 2025 Dr. Hari Miranda MD Nurse Practitioner Active Start: May 11, 2025 Dr. Rob Krishnamurthy MD Nurse Practitioner Active Start: May 11, 2025 Team Status: Active Member Role/Relationship Status Dates Dr. Corby Heller MD Primary care physician Active Start: May 11, 2025 Dr. Darren Dinh MD Attending physician Active Start: May 11, 2025 Team Status: Active Member Role/Relationship Status Dates Dr. Roni Eller MD Attending physician Active Start: May 11, 2025 Dr. Luis Bhardwaj DPM Referring Provider Active Start: May 11, 2025 Team Status: Active Member Role/Relationship Status Dates Dr. Corby Heller MD Primary care physician Active Start: May 12, 2025 Dr. Crow Crabtree DO Emergency Department Physician Active Start: May 12, 2025 Dr. Holly Lopez MD Admitting physician Active Start: May 12, 2025 Dr. Holly Lopez MD Nurse Practitioner Active Start: May 12, 2025 Dr. Luis Bhardwaj DPM Nurse Practitioner Active Start: May 12, 2025 Dr. Hari Miranda MD Attending physician Active Start: May 12, 2025 Dr. Hari Miranda MD Nurse Practitioner Active Start: May 12, 2025 Dr. Rob Krishnamurthy MD Nurse Practitioner Active Start: May 12, 2025 Team Status: Active Member Role/Relationship Status Dates Dr. Corby Heller MD Primary care physician Active Start: May 13, 2025 Dr. Crow Crabtree DO Emergency Department Physician Active Start: May 13, 2025 Dr. Holly Lopez MD Admitting physician Active Start: May 13, 2025 Dr. Holly Lopez MD Nurse Practitioner Active Start: May 13, 2025 Dr. Luis Bhardwaj DPM Nurse Practitioner Active Start: May 13, 2025 Dr. Hari Miranda MD Attending physician Active Start: May 13, 2025 Dr. Hari Miranda MD Nurse Practitioner Active Start: May 13, 2025 Dr. oRb Krishnamurthy MD Nurse Practitioner Active Start: May 13, 2025 Team Status: Active Member Role/Relationship Status Dates Dr. Corby Heller MD Primary care physician Active Start: May 14, 2025 Dr. Crow Crabtree DO Emergency Department Physician Active Start: May 14, 2025 Dr. Holly Lopez MD Admitting physician Active Start: May 14, 2025 Dr. Holly Lopez MD Nurse Practitioner Active Start: May 14, 2025 Dr. Luis Bhardwaj DPM Nurse Practitioner Active Start: May 14, 2025 Dr. Hari Miranda MD Attending physician Active Start: May 14, 2025 Dr. Hari Miranda MD Nurse Practitioner Active Start: May 14, 2025 Dr. Rob Krishnamurthy MD Nurse Practitioner Active Start: May 14, 2025 Team Status: Active Member Role/Relationship Status Dates Dr. Corby Heller MD Primary care physician Active Start: May 15, 2025 Dr. Crow Crabtree DO Emergency Department Physician Active Start: May 15, 2025 Dr. Holly Lopez MD Admitting physician Active Start: May 15, 2025 Dr. Holly Lopez MD Nurse Practitioner Active Start: May 15, 2025 Dr. Luis Bhardwaj , DP Nurse Practitioner Active Start: May 15, 2025 Dr. Rob Krishnamurthy MD Nurse Practitioner Active Start: May 15, 2025 Dr. Flaco Yang MD Attending physician Active Start: May 15, 2025 Dr. Flaco Yang MD Nurse Practitioner Active Start: May 15, 2025 Dr. Hari Miranda MD Nurse Practitioner Active Start: May 15, 2025 Team Status: Inactive Member Role/Relationship Status Dates Dr. Corby Heller MD Primary care physician Active Start: June 16, 2025 End: June 16, 2025 Dr. Jalen Delgado DO Attending physician Active Start: June 16, 2025 End: June 16, 2025 Dr. Jalen Delgado DO Emergency Departm ent Physician Active Start: June 16, 2025 End: June 16, 2025 Team Status: Active Member Role/Relationship Status Dates Dr. Corby Heller MD Primary care physician Active Start: June 19, 2025 Dr. Corby Heller MD Attending physician Active Start: June 19, 2025 Team Status: Inactive Member Role/Relationship Status Dates Dr. Corby Heller MD Primary care physician Active Start: June 19, 2025 End: June 19, 2025 Dr. Corby Heller MD Attending physician Active Start: June 19, 2025 End: June 19, 2025 FOR RECORDS PERTAINING TO PATIENTS WHO [...] BE BASED ON THE PRIMARY CLINICAL RECORDS. [email or web address] provides no warranty or guarantee of the accuracy or completeness of information in this document.
== END | disposition home or self-care (01) ==
PROVIDERS: PCP Family Medicine Geriatric Medicine; Referring Provider Podiatrist; Visit Provider Podiatrist
DX: L03.116 Cellulitis of left lower limb (principal)
CPT/HCPCS: 87070; 87077; 87186; 87205